=== PATIENT | male | born 1965 | race Caucasian/White ===

== ENCOUNTER 2021-04-09 13:13 | Emergency (ER) | payer OTHER ==
[2021-04-09 14:11] LABS: Absolute Lymphocytes (CBC) 0.4 K/uL (0.7-4.9); Basophils % 0.6 % (0-1.3); Hematocrit 29.8 % (39.6-49.0); Lymphocytes % 8.4 % (15.3-44.8); MPV 6.5 fL (7.6-11.3); RBC Red Blood Cell Count 3.12 M/uL (4.33-5.43)
[2021-04-09 14:18] LABS: Protime INR 1.04
[2021-04-09] MEDS ORDERED: IBUPROFEN 200 MG TAB PO ONE (14:21)
[2021-04-09] MEDS ORDERED: NA CHLORIDE 0.9% 1,000 ML ONE ×2 (14:22→17:09)
[2021-04-09] MEDS ORDERED: IBUPROFEN 400 MG TAB ONE (14:22)
[2021-04-09 14:31] LABS: ALT/SGPT 56 U/L (12-78); AST/SGOT 89 U/L (15-37); Albumin 3.4 g/dL (3.4-5.0); Alkaline Phosphatase 93 U/L (45-117); BUN Blood Urea Nitrogen 26 mg/dL (7-18); Bicarbonate 25 mmol/L (21-32); Bilirubin Direct 0.2 mg/dL (0-0.2); Bilirubin Total 0.4 mg/dL (0.2-1.0); Glucose Level 155 mg/dL (74-106); NT PRO-BNP 108 pg/mL (<125); Protein, Total 7.5 g/dL (6.4-8.2); Sodium Level 134 mmol/L (136-145); Troponin (Emerg Dept Use Only) < 0.02 ng/mL (0.0-0.045)
[2021-04-09 14:33] LABS: Magnesium 1.4 mg/dL (1.8-2.4)
--- NOTE | 2021-04-09 14:47 | RAD REPORT ---
EXAM DESCRIPTION: RAD - Chest Single View - 04/09/2021 2:41 pm CLINICAL HISTORY: CHEST PAIN COMPARISON: No comparisons FINDINGS: Lines: None. Lungs: No evidence of edema or pneumonia. Pleural: No significant pleural effusions or pneumothorax. Cardiac: The heart size is within normal limits. Bones: No acute fractures. Other: IMPRESSION: No acute cardiopulmonary disease.
[2021-04-09] MEDS ORDERED: ONDANSETRON 4 MG/2 ML VIAL ONE (14:54)
[2021-04-09] MEDS ORDERED: FENTANYL CITR 100 MCG/2 ML ONE (15:04)
[2021-04-09 15:26] LABS: SARS-COV-2 RT PCR POSITIVE (NEGATIVE)
[2021-04-09] MEDS ORDERED: Magnesium Sulfate 2gm IVPB 2 G/50 ML BAG IV ONE (15:36)
--- NOTE | 2021-04-09 15:53 | RAD REPORT ---
EXAM DESCRIPTION: CTStone Protocol - 04/09/2021 3:43 pm CLINICAL HISTORY: ABD PAIN COMPARISON: No comparisons TECHNIQUE: CT of the abdomen and pelvis was performed. All CT scans are performed using dose optimization technique as appropriate and may include automated exposure control or mA/KV adjustment according to patient size. FINDINGS: Lower chest: No acute abnormality. Liver: Hepatic steatosis. Biliary: No biliary ductal dilatation. Stomach: No significant focal abnormality. Duodenum: No significant focal abnormality. Pancreas: No significant abnormality. Spleen: No significant abnormality. Adrenal: No suspicious lesions. Kidney/ureter: No hydronephrosis. No renal calculi. Retroperitoneum: No retroperitoneal adenopathy. Vascular: No aneurysm. Bowel: No significant focal abnormality. Appendectomy. Peritoneum: No ascites or free air. Bladder: Grossly unremarkable. Reproductive: No adnexal masses. Bones: No acute fracture. Disc height loss at L5-S1 is mild. Small disc bulges are present at L3-4, L 4-5. Other: n/a IMPRESSION: No acute intra-abdominal or pelvic finding. No urinary tract calculi identified.
--- NOTE | 2021-04-09 17:26 | ER ---
Nurse's Notes [facility] Name: Beny Alvarez Age: 55 yrs Sex: Male : 1965 Arrival Date: 04/09/2021 Time: 13:16 Bed 8 Private MD: Diagnosis: Coronavirus infection, unspecified;Nausea with vomiting, unspecified Presentation: 04/09 13:30 Chief complaint: Patient states: ABD pain, vomiting x 3 weeks, cough x 2 weeks and vg1 diarrhea. States 'feeling dizzy and weak'. Coronavirus screen: Vaccine status: Patient reports being unvaccinated. Client denies travel out of the [place] in the last 14 days. Ebola Screen: Patient negative for fever greater than or equal to 101.5 degrees Fahrenheit, and additional compatible Ebola Virus Disease symptoms. Initial Sepsis Screen: Does the patient meet any 2 criteria? RR > 20 per min. Temp <36.0*C (96.8*F)) or > 38.3*C (100.9*F). Yes. Risk Assessment: Do you want to hurt yourself or someone else? Patient reports no desire to harm self or others. Onset of symptoms was March 19, 2021. 13:30 Method Of Arrival: Wheelchair vg1 13:30 Acuity: KALEY 3 vg1 16:15 Initial Sepsis Screen: Does the patient have a suspected source of infection? Yes: ll1 Productive cough/pneumonia. Triage Assessment: 13:32 General: Appears in no apparent distress. uncomfortable, Behavior is cooperative. Pain: vg1 Complains of pain in generalized body Pain currently is 8 out of 10 on a pain scale. Respiratory: Reports shortness of breath Airway is patent Respiratory effort is even, unlabored, Onset: The symptoms/episode began/occurred x 3 weeks, the patient has moderate shortness of breath. Historical: - Allergies: 13:32 No Known Allergies; vg1 - Home Meds: 13:32 Propranolol Oral [Active]; amlodipine oral [Active]; Methocarbamol Oral [Active]; vg1 losartan oral [Active]; Chlorthalidone Oral [Active]; pantoprazole oral [Active]; Trazodone Oral [Active]; - PMHx: 13:32 Hypertensive disorder; Tremors; Acid Reflux; vg1 - Immunization history:: Client reports having NOT received the Covid vaccine. - Social history:: Smoking status: Patient reports the use of cigarette tobacco products, cigars. Screenin:09 Abuse screen: Denies threats or abuse. Nutritional screening: No deficits noted. ll1 Tuberculosis screening: No symptoms or risk factors identified. 14:10 Fall Risk IV access (20 points). Total Sabillon Fall Scale indicates No Risk (0-24 pts). ll1 Assessment: 14:08 Reassessment: No changes from previously documented assessment. Patient and/or family ll1 updated on plan of care and expected duration. Pain level reassessed. 14:37 Reassessment: No changes from previously documented assessment. Patient and/or family ll1 updated on plan of care and expected duration. Pain level reassessed. Cardiovascular: Rhythm is sinus tachycardia. Respiratory: Airway is patent Trachea midline Respiratory effort is even, labored, Respiratory pattern is symmetrical, tachypnea. 15:30 Reassessment: No changes from previously documented assessment. Patient and/or family ll1 updated on plan of care and expected duration. Pain level reassessed. Respiratory: Breath sounds are diminished bilaterally. 16:30 Reassessment: No changes from previously documented assessment. Patient and/or family ll1 updated on plan of care and expected duration. Pain level reassessed. 17:30 Reassessment: No changes from previously documented assessment. Patient and/or family ll1 updated on plan of care and expected duration. Pain level reassessed. Patient states feeling better. 18:30 Reassessment: No changes from previously documented assessment. Patient and/or family ll1 updated on plan of care and expected duration. Pain level reassessed. Patient is alert, oriented x 3, equal unlabored respirations, skin warm/dry/pink. Patient states feeling better. no further N/V after PO challenge. Vital Signs: 13:30 BP 115 / 74; Pulse 120; Resp 26; Temp 101.1(O); Pulse Ox 97% ; Weight 90.72 kg; Height vg1 5 ft. 10 in. (177.80 cm); Pain 8/10; 14:09 BP 125 / 67; Pulse 118; Resp 24; Pulse Ox 98% on R/A; ll1 14:28 BP 108 / 71 Supine; Pulse 104; ll1 14:30 BP 121 / 76 Sitting; Pulse 128; ll1 14:32 Pulse 134; ll1 14:36 Pulse 117; Resp 25; Pulse Ox 97% on R/A; ll1 15:14 BP 107 / 69; Pulse 101; Resp 18; Pulse Ox 98% on R/A; ll1 15:28 Pulse 99; Resp 18; Temp 99.9; ll1 17:16 BP 103 / 70; Pulse 78; Resp 18; Pulse Ox 99% on R/A; ll1 18:03 BP 114 / 64; Pulse 76; Resp 18; Pulse Ox 99% ; ll1 18:35 BP 117 / 72; Pulse 80; Resp 18; Pulse Ox 100% ; ll1 13:30 Body Mass Index 28.70 (90.72 kg, 177.80 cm) vg1 14:32 Shaking a lot and very dizzy during standing orthostatic VS. Unable to obtain BP due to ll1 shaking/movement. ED Course: 13:16 Patient arrived in ED. am2 13:28 Atul De La Cruz RN is Primary Nurse. ll1 13:28 Arm band placed on Patient placed in an exam room, on a stretcher. ll1 13:32 Triage completed. vg1 13:40 Lissa Martins FNP-C is PHCP. kb 13:40 Carlos Alcantara MD is Attending Physician. kb 14:08 Inserted saline lock: 22 gauge in right antecubital area, using aseptic technique. ll1 Blood collected. 14:09 Patient has correct armband on for positive identification. Bed in low position. Call ll1 light in reach. Side rails up X2. 14:41 XRAY Chest (1 view) In Process Unspecified. EDMS 15:43 CT Stone Protocol In Process Unspecified. EDMS 18:36 No provider procedures requiring assistance completed. ll1 18:37 IV discontinued, intact, bleeding controlled, No redness/swelling at site. Pressure ll1 dressing applied. Administered Medications: 14:27 Drug: Ibuprofen 600 mg Route: PO; ll1 14:58 Follow up: Response: No adverse reaction ll1 14:36 Drug: NS 0.9% 1000 ml Route: IV; Rate: 1000 ml; Site: right antecubital; ll1 16:14 Follow up: Response: No adverse reaction; IV Status: Completed infusion; IV Intake: ll1 1000ml 14:57 Drug: Zofran (Ondansetron) 4 mg Route: IVP; Site: right antecubital; ll1 16:14 Follow up: Response: No adverse reaction ll1 15:05 Drug: fentaNYL (PF) 25 mcg {Note: rass 0.} Route: IVP; Site: right antecubital; ll1 16:14 Follow up: Response: No adverse reaction; RASS: Alert and Calm (0) ll1 16:07 Drug: Magnesium Sulfate 2 grams Route: IVPB; Infused Over: 2 hrs; Site: right ll1 antecubital; 17:15 Follow up: Response: No adverse reaction; IV Status: Completed infusion; IV Intake: ll1 100ml 16:31 Drug: fentaNYL (PF) 25 mcg {Note: rass 0.} Route: IVP; Site: right antecubital; ll1 17:15 Follow up: Response: No adverse reaction ll1 17:14 Drug: NS 0.9% 1000 ml Route: IV; Rate: 1000 ml; Site: right antecubital; ll1 18:36 Follow up: Response: No adverse reaction; IV Status: Completed infusion; IV Intake: ll1 1000ml 18:02 Drug: fentaNYL (PF) 25 mcg {Note: rass 0.} Route: IVP; Site: right antecubital; ll1 18:36 Follow up: Response: No adverse reaction; Pain is decreased; RASS: Alert and Calm (0) ll1 Intake: 16:14 IV: 1000ml; Total: 1000ml. ll1 17:15 IV: 100ml; Total: 1100ml. ll1 18:36 IV: 1000ml; Total: 2100ml. 1 Outcome: 17:25 Discharge ordered by . kb 18:37 Discharged to home via wheelchair. 1 18:37 Condition: stable 18:37 Discharge instructions given to patient, Instructed on discharge instructions, follow up and referral plans. no drinking with medication, no driving heavy equipment, medication usage, Demonstrated understanding of instructions, follow-up care, medications, Prescriptions given X 3. 18:45 Patient left the ED. 1 Signatures: Dispatcher [employer] EDLissa Mcmanus, HEATH KINGP-Emi Don Victoria, RN RN vg1 Atul De La Cruz RN RN ll1
--- NOTE | 2021-04-09 17:26 | EDPHYS ---
Physician Documentation [facility] Name: Beny Alvarez Age: 55 yrs Sex: Male : 1965 Arrival Date: 04/09/2021 Time: 13:16 Bed 8 Private MD: ED Physician Carlos Alcantara HPI: 04/09 16:28 This 55 yrs old Male presents to ER via Wheelchair with complaints of Shortness Of kb Breath, Vomiting, Decreased Appetite. 16:28 The patient or guardian reports cough, that is intermittent, described as mild, kb difficulty breathing, flu symptoms, low-grade fever, myalgias, no appetite. Onset: The symptoms/episode began/occurred 2 week(s) ago. Severity of symptoms: At their worst the symptoms were moderate, in the emergency department the symptoms are unchanged. Modifying factors: The symptoms are alleviated by nothing, the symptoms are aggravated by nothing. Associated signs and symptoms: Pertinent positives: chest pain, nausea, vomiting. The patient has not experienced similar symptoms in the past. The patient has not recently seen a physician. Pt reports nausea and vomiting for 3 weeks, cough, shortness of breath, chest tightness for 2 weeks. Went to [place] and was told to come here for evaluation. Historical: - Allergies: 13:32 No Known Allergies; vg1 - Home Meds: 13:32 Propranolol Oral [Active]; amlodipine oral [Active]; Methocarbamol Oral [Active]; vg1 losartan oral [Active]; Chlorthalidone Oral [Active]; pantoprazole oral [Active]; Trazodone Oral [Active]; - PMHx: 13:32 Hypertensive disorder; Tremors; Acid Reflux; vg1 - Immunization history:: Client reports having NOT received the Covid vaccine. - Social history:: Smoking status: Patient reports the use of cigarette tobacco products, cigars. ROS: 16:26 Constitutional: Negative for fever, chills, and weight loss. kb 16:26 Respiratory: Positive for cough, shortness of breath. 16:26 Abdomen/GI: Positive for abdominal pain, nausea and vomiting, Negative for diarrhea, constipation. 16:26 All other systems are negative. Exam: 16:27 Constitutional: This is a well developed, well nourished patient who is awake, alert, kb and in no acute distress. Head/Face: Normocephalic, atraumatic. ENT: Moist Mucous membranes Cardiovascular: Regular rate and rhythm with a normal S1 and S2. No gallops, murmurs, or rubs. No pulse deficits. Respiratory: Respirations even and unlabored. No increased work of breathing. Talking in full sentences Skin: Warm, dry with normal turgor. Normal color. MS/ Extremity: Pulses equal, no cyanosis. Neurovascular intact. Full, normal range of motion. Neuro: Awake and alert, GCS 15, oriented to person, place, time, and situation. Moves all extremities. Normal gait. Psych: Awake, alert, with orientation to person, place and time. Behavior, mood, and affect are within normal limits. 16:27 Abdomen/GI: Inspection: abdomen appears normal, Bowel sounds: normal, in all quadrants, Palpation: soft, in all quadrants, moderate abdominal tenderness, in all quadrants. Vital Signs: 13:30 BP 115 / 74; Pulse 120; Resp 26; Temp 101.1(O); Pulse Ox 97% ; Weight 90.72 kg; Height vg1 5 ft. 10 in. (177.80 cm); Pain 8/10; 14:09 BP 125 / 67; Pulse 118; Resp 24; Pulse Ox 98% on R/A; ll1 14:28 BP 108 / 71 Supine; Pulse 104; ll1 14:30 BP 121 / 76 Sitting; Pulse 128; ll1 14:32 Pulse 134; ll1 14:36 Pulse 117; Resp 25; Pulse Ox 97% on R/A; ll1 15:14 BP 107 / 69; Pulse 101; Resp 18; Pulse Ox 98% on R/A; ll1 15:28 Pulse 99; Resp 18; Temp 99.9; ll1 17:16 BP 103 / 70; Pulse 78; Resp 18; Pulse Ox 99% on R/A; ll1 18:03 BP 114 / 64; Pulse 76; Resp 18; Pulse Ox 99% ; ll1 18:35 BP 117 / 72; Pulse 80; Resp 18; Pulse Ox 100% ; ll1 13:30 Body Mass Index 28.70 (90.72 kg, 177.80 cm) vg1 14:32 Shaking a lot and very dizzy during standing orthostatic VS. Unable to obtain BP due to ll1 shaking/movement. MDM: 13:41 Patient medically screened. kb 16:25 Data reviewed: vital signs, nurses notes. Data interpreted: Pulse oximetry: on room air kb is 98 %. Interpretation: normal. Counseling: I had a detailed discussion with the patient and/or guardian regarding: the historical points, exam findings, and any diagnostic results supporting the discharge/admit diagnosis, lab results, radiology results, the need for outpatient follow up, a family practitioner, to return to the emergency department if symptoms worsen or persist or if there are any questions or concerns that arise at home. 04/09 13:47 Order name: Basic Metabolic Panel; Complete Time: 14:39 ll1 04/09 13:47 Order name: CBC with Diff; Complete Time: 14:19 ll1 04/09 13:47 Order name: LFT's; Complete Time: 14:39 ll1 04/09 13:47 Order name: Magnesium; Complete Time: 14:39 ll1 04/09 13:47 Order name: NT PRO-BNP; Complete Time: 14:39 ll1 04/09 13:47 Order name: PT-INR; Complete Time: 14:19 ll1 04/09 13:47 Order name: Troponin (emerg Dept Use Only); Complete Time: 14:39 ll1 04/09 13:47 Order name: XRAY Chest (1 view); Complete Time: 15:06 ll1 04/09 13:47 Order name: COVID-19/FLU A+B (Document "Date of Onset" if Symptomatic); Complete Time: ll1 15:29 04/09 15:07 Order name: CT Stone Protocol; Complete Time: 15:58 kb 04/09 13:47 Order name: EKG; Complete Time: 13:48 ll1 04/09 13:47 Order name: Cardiac monitoring; Complete Time: 14:08 ll1 04/09 13:47 Order name: EKG - Nurse/Tech; Complete Time: 14:08 ll1 04/09 13:47 Order name: IV Saline Lock; Complete Time: 13:55 ll1 04/09 13:47 Order name: Labs collected and sent; Complete Time: 13:55 ll1 04/09 13:47 Order name: O2 Per Protocol; Complete Time: 13:55 ll1 04/09 13:47 Order name: O2 Sat Monitoring; Complete Time: 13:55 ll1 04/09 14:20 Order name: Orthostatics; Complete Time: 14:36 kb 04/09 16:31 Order name: PO challenge; Complete Time: 17:08 kb Administered Medications: 14:27 Drug: Ibuprofen 600 mg Route: PO; ll1 14:58 Follow up: Response: No adverse reaction ll1 14:36 Drug: NS 0.9% 1000 ml Route: IV; Rate: 1000 ml; Site: right antecubital; ll1 16:14 Follow up: Response: No adverse reaction; IV Status: Completed infusion; IV Intake: ll1 1000ml 14:57 Drug: Zofran (Ondansetron) 4 mg Route: IVP; Site: right antecubital; ll1 16:14 Follow up: Response: No adverse reaction ll1 15:05 Drug: fentaNYL (PF) 25 mcg {Note: rass 0.} Route: IVP; Site: right antecubital; ll1 16:14 Follow up: Response: No adverse reaction; RASS: Alert and Calm (0) ll1 16:07 Drug: Magnesium Sulfate 2 grams Route: IVPB; Infused Over: 2 hrs; Site: right ll1 antecubital; 17:15 Follow up: Response: No adverse reaction; IV Status: Completed infusion; IV Intake: ll1 100ml 16:31 Drug: fentaNYL (PF) 25 mcg {Note: rass 0.} Route: IVP; Site: right antecubital; ll1 17:15 Follow up: Response: No adverse reaction ll1 17:14 Drug: NS 0.9% 1000 ml Route: IV; Rate: 1000 ml; Site: right antecubital; ll1 18:36 Follow up: Response: No adverse reaction; IV Status: Completed infusion; IV Intake: ll1 1000ml 18:02 Drug: fentaNYL (PF) 25 mcg {Note: rass 0.} Route: IVP; Site: right antecubital; ll1 18:36 Follow up: Response: No adverse reaction; Pain is decreased; RASS: Alert and Calm (0) ll1 Disposition: 19:53 Co-signature as Attending Physician, Carlos Alcantara MD I agree with the assessment and kdr plan of care. Disposition Summary: 04/09/21 17:25 Discharge Ordered Location: Home kb Condition: Stable kb Diagnosis - Coronavirus infection, unspecified kb - Nausea with vomiting, unspecified kb Followup: kb - With: Emergency Department - When: As needed - Reason: Worsening of condition Followup: kb - With: Private Physician - When: 2 - 3 days - Reason: Recheck today's complaints, Continuance of care, Re-evaluation by your physician Discharge Instructions: - Discharge Summary Sheet kb - COVID-19 kb Forms: - Medication Reconciliation Form kb - Thank You Letter kb - Antibiotic Education kb - Prescription Opioid Use kb Prescriptions: - Zofran 4 mg Oral Tablet - take 1 tablet by ORAL route every 6 hours As needed; 20 tablet; Refills: 0, kb Product Selection Permitted - Tessalon Perles 100 mg Oral Capsule - take 1 capsule by ORAL route every 8 hours As needed; 15 capsule; Refills: 0, kb Product Selection Permitted - Cyclobenzaprine 10 mg Oral Tablet - take 1 tablet by ORAL route every 8 hours As needed; 21 tablet; Refills: 0, kb Product Selection Permitted Signatures: Dispatcher [employer] Lissa Long, YVETTE-C YVETTE-Carlos Pizarro MD MD kdr Garcia, Victoria RN RN vg1 Atul De La Cruz RN RN ll1
[2021-04-09 19:01] VITALS: TEMP 99.9
[2021-04-09 19:06] VITALS: BP 117/72; O2SAT 100
--- NOTE | 2021-04-11 17:02 | EKG ---
Test Date: 2021-04-09 Test Time: 13:55:12 Arch Support Maker: MK MEASUREMENT RESULTS: Intervals: Rate: 124 [place]: 162 QRSD: 88 QT: 280 QTc: 402 [place]: P: 39 [place]: 162 QRS: -79 T: 55 INTERPRETIVE STATEMENTS: Sinus tachycardia Left axis deviation Anterior infarct, age undetermined Abnormal ECG No previous ECG available for comparison Electronically Signed On 04-11-21 17:00:14 CLAIMS ASSISTANT by Pipe Calloway
== END 2021-04-09 18:45 | disposition home or self-care (01) ==
LOC: ER 13:13
DX: U07.1 COVID-19 (principal); R11.2 Nausea with vomiting, unspecified; I10 Essential (primary) hypertension; Z72.0 Tobacco use
CPT/HCPCS: 96365; 96361; 93005; 85025; 80048; 36415; 83735; 85610; 80076; 84484; 83880; 0240U; 76377; 74176; 71045; 96375; 99284; J3010; J3475; J7030 ×2; J2405

== ENCOUNTER 2022-02-20 12:50 | Emergency (ER) | payer OTHER ==
[2022-02-20] MEDS ORDERED: MORPHINE 4 MG/ML SYR ONE (13:30)
[2022-02-20] MEDS ORDERED: PANTOPRAZOLE 40 MG INJ ONE (13:30)
[2022-02-20] MEDS ORDERED: NA CHLORIDE 0.9% 1,000 ML ONE ×3 (13:30→17:41)
[2022-02-20] MEDS ORDERED: ONDANSETRON 4 MG/2 ML VIAL ONE ×2 (13:30→19:11)
[2022-02-20 13:38] LABS: Absolute Lymphocytes (CBC) 0.3 K/uL (0.7-4.9); Hematocrit 39.6 % (39.6-49.0); Lymphocytes % 2.1 % (15.3-44.8); MCV 94.5 fL (80-100); MPV 7.4 fL (7.6-11.3); RBC Red Blood Cell Count 4.19 M/uL (4.33-5.43)
[2022-02-20] MEDS ORDERED: HYDROMORPHONE HCL 1 MG/ML INJ ONE ×2 (13:55→19:56)
--- NOTE | 2022-02-20 13:56 | RAD REPORT ---
EXAM DESCRIPTION: RAD - Chest Single View - 02/20/2022 1:38 pm CLINICAL HISTORY: vomiting, fever, hypertension COMPARISON: CT imaging March 2021, portable chest March 2021 TECHNIQUE: AP portable chest image was obtained 02/20/2022 1:38 pm . FINDINGS: Lungs are clear. Right hemidiaphragm elevation is noted limiting posterior gutter right-si de assessment. No failure or volume overload findings. Heart and vasculature are normal. No measurable pleural effusion and no pneumothorax. No acute bony a bnormality seen. No acute aortic findings suspected. IMPRESSION: No acute cardiopulmonary process.
[2022-02-20 14:33] LABS: Protime INR 1.22
[2022-02-20 14:47] LABS: Blood Morphology Comment NOT SEEN (NOT SEEN); Platelet Estimate ADEQ; White Blood Cell Scan OK (OK)
[2022-02-20 14:56] LABS: Albumin 3.6 g/dL (3.4-5.0); Bilirubin Direct 0.6 mg/dL (0-0.2); Bilirubin Total 1.1 mg/dL (0.2-1.0); Magnesium 1.9 mg/dL (1.8-2.4)
[2022-02-20 15:04] LABS: Potassium 2.8 mmol/L (3.5-5.1)
--- NOTE | 2022-02-20 15:14 | RAD REPORT ---
EXAM DESCRIPTION: CT - Stone Protocol - 02/20/2022 2:48 pm CLINICAL HISTORY: hematuria COMPARISON: Stone Protocol dated 04/09/2021 TECHNIQUE: Axial 3 mm thick images were obtained without oral or IV contrast. The [id number] span s the entirety of the system including uppermost abdomen and lung bases. All CT scans are performed using dose optimization technique as appropriate and may include automated exposure control or mA/KV adjustment according to patient size. FINDINGS: No hydronephrosis is present and no obstructing ureteral calculi. No suspicious renal mass es. Isodense masses and pyelonephritis are not excluded on a stone protocol CT scan. No obstructing o r nonobstructing calculi. No significant adrenal finding. Urinary bladder is mostly contracted limiti ng assessment. Bladder calculi not seen. Hepatomegaly is present with diffuse fatty infiltration of liver. Small prominent varices are seen in the upper abdomen. No suspicious liver parenchymal lesions seen on noncontrast imaging if no pancrea tic or peripancreatic abnormality. No splenic abnormality seen. Cholecystectomy clips are present. No biliary tree dilatation. No suspicious bowel findings. Appendectomy clips are present. No hernia, mass or bulky lymphadenopathy noted. No free air, free fluid or inflammatory stranding. No significant bony abnormality. IMPRESSION: No hydronephrosis, obstructing calculi or acute finding. Isodense masses and pyelonephritis are not excluded on stone protocol technique. No abnormality seen in the contracted urinary bladder. Bladder evaluation is limited. Hepatomegaly and diffuse fatty infiltration. Varices are present. Cirrhosis or diffuse hepatic parenc hymal disease or possible. Cholecystectomy changes since prior examination. No biliary tree abnormality.
[2022-02-20 15:22] LABS: Urine Blood 3+ (Negative); Urine Glucose Negative (Negative); Urine Protein 3+ (Negative); Urine Specific Gravity 1.025 (1.005-1.030)
[2022-02-20 15:52] LABS: Urine Granular Casts >20 /LPF (None Seen); Urine Mucus 1+ /HPF (None Seen); Urine RBC >50 /HPF (None Seen); Urine WBC Clump Moderate /HPF (None Seen)
[2022-02-20] MEDS ORDERED: LORazepam 2 MG/ML VIAL ONE (15:52)
[2022-02-20] MEDS ORDERED: PIPERACIL/TAZO 2.25 GM VIAL IV ONE (15:52)
[2022-02-20] MEDS ORDERED: IBUPROFEN 400 MG TAB ONE (15:53)
[2022-02-20] MEDS ORDERED: KCL 20 MEQ/100 mL IVPB 100 ML IV ONE (15:53)
[2022-02-20] MEDS ORDERED: NA CHLORIDE 0.9% 100 ML IV ONE (15:53)
--- NOTE | 2022-02-20 16:06 | EDPHYS ---
Physician Documentation [facility] Name: Beny Alvarez Age: 56 yrs Sex: Male : 1965 Arrival Date: 02/20/2022 Time: 13:01 Bed 19 Private MD: ED Physician Carlos Alcantara HPI: 02/20 13:20 This 56 yrs old Male presents to ER via Wheelchair with complaints of Fever, Vomiting, cp General Weakness. 13:20 The patient presents with urinary symptoms, urinary frequency, gross hematuria, lower cp abdominal pain. 13:20 Associated signs and symptoms: Pertinent positives: abdominal pain, dysuria, fever, cp hematuria, nausea, vomiting, Pertinent negatives: constipation, diarrhea. Severity of symptoms: in the emergency department the symptoms are unchanged, despite home interventions. Patient reports daily alcohol use with last drink 4 days ago. Nausea and vomiting times 1 year. Historical: - Allergies: 13:17 No Known Allergies; hb - Home Meds: 16:36 amlodipine 10 mg oral tab [Active]; duloxetine 30 mg oral CDRS [Active]; meloxicam 15 jl7 mg oral tab [Active]; famotidine 40 mg Oral tab [Active]; potassium chloride 10 mEq Oral TbER [Active]; rosuvastatin 40 mg oral cpSP [Active]; cholecalciferol (vitamin D3) 50 mcg (2,000 unit) oral cap [Active]; methocarbamol 750 mg oral tab [Active]; chlorthalidone 25 mg oral tab [Active]; trazodone 50 mg oral tab [Active]; propranolol 20 mg oral tab [Active]; - PMHx: 13:17 acid reflux; Hypertensive disorder; tremors; hb - Immunization history:: Adult Immunizations up to date. - Social history:: Smoking status: Patient/guardian denies using tobacco. ROS: 13:25 Constitutional: Positive for fever, poor PO intake. cp 13:25 Eyes: Negative for injury, pain, redness, and discharge. cp 13:25 ENT: Negative for drainage from ear(s), ear pain, sore throat, difficulty swallowing, difficulty handling secretions. 13:25 Cardiovascular: Positive for chest pain. 13:25 Respiratory: Negative for cough, shortness of breath, wheezing. 13:25 Abdomen/GI: Positive for abdominal pain, nausea and vomiting, Negative for diarrhea, constipation, hematemesis, black/tarry stool, rectal bleeding. 13:25 : Positive for urinary frequency, hematuria, burning with urination. 13:25 Skin: Negative for cellulitis, rash. 13:25 Neuro: Positive for weakness, Negative for altered mental status, dizziness, headache, syncope. 13:25 All other systems are negative. Exam: 13:30 Constitutional: The patient appears in no acute distress, alert, awake, cp non-diaphoretic, well developed, well nourished, obviously ill, uncomfortable. 13:30 Head/Face: Normocephalic, atraumatic. cp 13:30 Eyes: Periorbital structures: appear normal, Conjunctiva: normal, no exudate, no injection, Sclera: no appreciated abnormality, Lids and lashes: appear normal, bilaterally. 13:30 ENT: External ear(s): are unremarkable, Nose: is normal, Mouth: Lips: moist, Oral mucosa: moist, Posterior pharynx: Airway: no evidence of obstruction, patent, Tonsils: are normal in appearance, swelling, is not appreciated, erythema, is not appreciated, exudate, is not appreciated. 13:30 Neck: ROM/movement: is normal, is supple, without pain, no range of motions limitations, no meningismus. 13:30 Chest/axilla: Inspection: normal, Palpation: is normal, no crepitus, no tenderness. 13:30 Cardiovascular: Rate: tachycardic, Rhythm: regular, Edema: is not appreciated, JVD: is not appreciated. 13:30 Respiratory: the patient does not display signs of respiratory distress, Respirations: normal, no use of accessory muscles, no retractions, labored breathing, is not present, Breath sounds: are clear throughout, no decreased breath sounds, no stridor, no wheezing. 13:30 Abdomen/GI: Inspection: obese Bowel sounds: active, all quadrants, Palpation: soft, in all quadrants, mild abdominal tenderness, in the right lower quadrant and left lower quadrant, rebound tenderness, is not appreciated, involuntary guarding, is not appreciated. 13:30 Back: CVA tenderness, is absent. 13:30 Skin: cellulitis, is not appreciated, no rash present. 13:30 Neuro: Orientation: to person, place \\T\\ time. Mentation: is normal, Cerebellar function: is grossly normal, Motor: moves all fours, strength is normal, Sensation: is normal. 13:57 ECG was reviewed by the Attending Physician. cp Vital Signs: 13:14 BP 138 / 77; Pulse 122; Resp 24; Temp 103.2(O); Pulse Ox 97% on R/A; Weight 80.29 kg; hb Height 5 ft. 10 in. (177.80 cm); Pain 9/10; 14:00 BP 129 / 70; Pulse 127; Resp 30; Pulse Ox 94% ; jl7 14:30 BP 126 / 68; Pulse 132; Resp 32; Pulse Ox 94% ; jl7 15:30 BP 128 / 83; Pulse 132; Resp 29; Pulse Ox 95% ; jl7 16:00 BP 107 / 83; Pulse 127; Resp 25; Pulse Ox 91% ; jl7 16:24 BP 112 / 71; Pulse 123; Resp 25 S; Pulse Ox 92% on R/A; jl7 16:24 Pain 4/10; jl7 16:59 Temp 101.4; kr3 17:00 BP 121 / 78; Pulse 118; Resp 15; Temp 101.4; Pulse Ox 98% ; kr3 17:30 BP 116 / 67; Pulse 115; Resp 16; Pulse Ox 94% on R/A; kr3 20:13 BP 109 / 79; Pulse 100; Resp 23; Temp 98.3(O); Pulse Ox 94% on R/A; ke1 13:14 Body Mass Index 25.40 (80.29 kg, 177.80 cm) hb MDM: 13:19 Patient medically screened. cp 14:00 Differential diagnosis: urinary retention, prostatitis, sepsis, kidney stone. cp 15:30 Data reviewed: vital signs, nurses notes, lab test result(s), EKG, radiologic studies, cp CT scan, plain films. 15:30 Test interpretation: by ED physician or midlevel provider: ECG, plain radiologic cp studies. 15:45 ED course: Patient meets criteria for septic shock: A) source of infection: urine, B) cp SIRS criteria: temp of 103.2, HR of 122, RR of 24, WBC of 14.4, C) organ dysfunction: CRE of 2.23, lactate >4. Will administer Zosyn antibiotic. 02/20 13:18 Order name: Influenza Screen (a \\T\\ B); Complete Time: 14:20 cp 02/20 14:20 Interpretation: Reviewed. cp 02/20 13:18 Order name: COVID-19 SARS RT PCR (Document "Date of Onset" if Symptomatic); Complete cp Time: 14:32 02/20 14:32 Interpretation: Reviewed. cp 02/20 13:18 Order name: Basic Metabolic Panel; Complete Time: 15:04 cp 02/20 15:05 Interpretation: Normal except: NA 132; K 2.8; CL 93; GLUC 125; CRE 2.23; GFR 34. cp 02/20 13:18 Order name: CBC with Diff; Complete Time: 14:51 cp 02/20 14:20 Interpretation: Normal except: WBC 14.40; RBC 4.19; MPV 7.4; CHERRIE% 93.2; LYM% 2.1; NEUT cp A 13.4; LYMA 0.3. 02/20 13:18 Order name: LFT's; Complete Time: 15:04 cp 02/20 15:05 Interpretation: Normal except: AST 206; ALT 82; ALK 206; BILIT 1.1; BILID 0.6; GLOB cp 4.4; A/G 0.8. 02/20 13:18 Order name: Magnesium; Complete Time: 15:04 cp 02/20 13:18 Order name: NT PRO-BNP; Complete Time: 15:04 cp 02/20 15:05 Interpretation: Abnormal: NT PRO-BNP 183. cp 02/20 13:18 Order name: PT-INR; Complete Time: 14:51 cp 02/20 14:52 Interpretation: Abnormal: PT 13.4. cp 02/20 13:18 Order name: Lactate; Complete Time: 14:08 cp 02/20 14:32 Interpretation: Abnormal: LAC 4.3. cp 02/20 13:18 Order name: Procalcitonin; Complete Time: 15:11 cp 02/20 15:12 Interpretation: Reviewed. cp 02/20 13:18 Order name: Blood Culture Adult (2) cp 02/20 13:25 Order name: Troponin High Sensitivity; Complete Time: 15:01 cp 02/20 13:25 Order name: Urine Microscopic Only; Complete Time: 17:17 cp 02/20 17:18 Interpretation: Normal except: UWBC >50; URBC >50; BYST Few; UWBC Clump Moderate; GCAST cp >20; DAVIDE Cx 1+. 02/20 14:00 Order name: CBC Smear Scan; Complete Time: 14:51 EDMS 02/20 13:18 Order name: XRAY Chest (1 view); Complete Time: 14:08 cp 02/20 14:21 Order name: Strep; Complete Time: 17:17 cp 02/20 14:21 Order name: CT Stone Protocol; Complete Time: 15:19 cp 02/20 15:23 Order name: Urine Dipstick-Ancillary; Complete Time: 15:23 EDMS 02/20 15:23 Interpretation: Normal except: UKET Trace; UBLD 3+; UPROT 3+; UNIT Positive; UESTR 1+. cp 02/20 15:43 Order name: US Rp Exam Complete; Complete Time: 17:17 cp 02/20 15:54 Order name: Urine Culture EDME 02/20 16:31 Order name: Throat Culture EDME 02/20 17:32 Order name: Lactate Sepsis 2 HR Follow-up; Complete Time: 17:37 EDME 02/20 13:18 Order name: EKG; Complete Time: 13:20 cp 02/20 13:18 Order name: Cardiac monitoring; Complete Time: 13:52 cp 02/20 13:18 Order name: EKG - Nurse/Tech; Complete Time: 14:04 cp 02/20 13:18 Order name: IV Saline Lock; Complete Time: 13:52 cp 02/20 13:18 Order name: Labs collected and sent; Complete Time: 13:52 cp 02/20 13:18 Order name: O2 Per Protocol; Complete Time: 13:24 cp 02/20 13:18 Order name: O2 Sat Monitoring; Complete Time: 13:24 cp 02/20 13:25 Order name: Urine Dipstick-Ancillary (obtain specimen); Complete Time: 15:55 cp 02/20 13:43 Order name: Labs - recollect needed: recollect blue and green top; Complete Time: 14:00 eb 02/20 15:21 Order name: Cath; Complete Time: 15:55 cp EC:57 Rate is 122 beats/min. Rhythm is regular. VT interval is normal. QRS interval is cp normal. QT interval is normal. Interpreted by me. Reviewed by me. Administered Medications: 14:08 Discontinued: NS 0.9% 1000 ml IV at 1000 ml once cp 13:30 Drug: NS 0.9% 1000 ml Route: IV; Rate: 1000 ml; Site: right antecubital; kr3 13:30 Drug: Zofran (Ondansetron) 4 mg Route: IVP; Site: right antecubital; kr3 13:30 Drug: ProTONIX (pantoprazole) 40 mg Route: IVP; Site: right antecubital; kr3 16:26 Follow up: Response: No adverse reaction jl7 13:30 Drug: morphine 4 mg Route: IVP; Infused Over: 4 mins; Site: right antecubital; kr3 14:00 Drug: Dilaudid (HYDROmorphone) 1 mg Route: IVP; Site: right antecubital; kr3 14:30 Follow up: Response: No adverse reaction; Pain is decreased jl7 14:22 Drug: NS 0.9% (30 ml/kg) 30 ml/kg Route: IV; Rate: bolus; Site: right antecubital; kr3 15:06 Drug: NS 0.9% (30 ml/kg) 30 ml/kg Route: IV; Rate: bolus; Site: right antecubital; kr3 15:22 CANCELLED (Physician Discretion): Rocephin (cefTRIAXone) 1 grams IV at calculated rate cp once; Given slow IV push per pharmacy instructions 15:49 CANCELLED (Physician Discretion): Rocephin (cefTRIAXone) 1 grams IV at calculated rate jl7 once; Given slow IV push per pharmacy instructions 16:00 Drug: Ibuprofen 800 mg Route: PO; jl7 16:59 Follow up: Temp 101.4; Response: Temperature is decreased kr3 16:15 Drug: Potassium Chloride 20 mEq Route: IV; Rate: calculated rate; Site: right jl7 antecubital; 16:20 Drug: Zosyn (piperacillin-tazobactam) 2.25 grams Route: IVPB; Infused Over: 60 mins; jl7 Site: right antecubital; 16:23 Drug: Ativan (LORazepam) 1 mg Route: IVP; Site: right antecubital; jl7 19:53 Drug: Zofran (Ondansetron) 4 mg Route: IVP; Site: right antecubital; kr3 20:04 Drug: Dilaudid (HYDROmorphone) 1 mg Route: IVP; Site: right antecubital; kr3 Disposition: 02/21 10:17 Co-signature as Attending Physician, Carlos Alcantara MD I agree with the assessment and kdr plan of care. Disposition Summary: 02/20/22 16:05 Transfer Ordered Transfer Location: Other Acute Care Facility cp Reason: Higher level of care cp Condition: Stable cp Problem: new cp Symptoms: have improved cp Accepting Physician: Doctor(02/20/22 22:13) keBalbir Diagnosis - Severe sepsis with septic shock cp Forms: - Medication Reconciliation Form cp - SBAR form cp Signatures: Dispatcher [employer] EDMS Carlos Alcantara MD MD kdr Bill Pereira, BOOK SHELVER-C BOOK SHELVER-Cla1 Dewayne Louis PA PA cp Katelyn Morales, RN RN April Merino RN RN jl7 Alexa Terrell Raymond, MD MD rn3 Milo Wolf RN RN ke1 Karma Pichardo RN RN kr3 Corrections: (The following items were deleted from the chart) 02/20 15:22 15:22 Rocephin (cefTRIAXone) 1 grams IV at calculated rate once; Given slow IV push per pharmacy instructions ordered. cp 15:49 15:23 Rocephin (cefTRIAXone) 1 grams IV at calculated rate once; Given slow IV push per jl7 pharmacy instructions ordered. cp 15:49 15:48 Rocephin (cefTRIAXone) 1 grams IV at calculated rate once; Given slow IV push per jl7 pharmacy instructions ordered. 7 22:13 16:05 Doctor cp ke1
--- NOTE | 2022-02-20 16:06 | ER ---
Nurse's Notes [facility] Name: Beny Alvarez Age: 56 yrs Sex: Male : 1965 Arrival Date: 02/20/2022 Time: 13:01 Bed 19 Private MD: Diagnosis: Severe sepsis with septic shock Presentation: 02/20 13:14 Chief complaint: N/V, sore throat, fever, and body aches x 3 days, blood in urine since hb yesterday. Not tolerating fluids. Coronavirus screen: Client presents with at least one sign or symptom that may indicate coronavirus-19. Standard/surgical mask placed on the client. Provider contacted for isolation considerations. Ebola Screen: No symptoms or risks identified at this time. Risk Assessment: Do you want to hurt yourself or someone else? Patient reports no desire to harm self or others. Onset of symptoms was February 17, 2022. 13:14 Method Of Arrival: Wheelchair hb 13:14 Acuity: KALEY 2 hb 13:14 Initial Sepsis Screen: Does the patient meet any 2 criteria? RR > 20 per min. Temp hb <36.0*C (96.8*F)) or > 38.3*C (100.9*F). HR > 90 bpm. Yes Does the patient have a suspected source of infection? Yes: Other: vomiting. Triage Assessment: 15:30 GI: Reports intolerance of fluids, nausea, vomiting. kr3 Historical: - Allergies: 13:17 No Known Allergies; hb - Home Meds: 16:36 amlodipine 10 mg oral tab [Active]; duloxetine 30 mg oral CDRS [Active]; meloxicam 15 jl7 mg oral tab [Active]; famotidine 40 mg Oral tab [Active]; potassium chloride 10 mEq Oral TbER [Active]; rosuvastatin 40 mg oral cpSP [Active]; cholecalciferol (vitamin D3) 50 mcg (2,000 unit) oral cap [Active]; methocarbamol 750 mg oral tab [Active]; chlorthalidone 25 mg oral tab [Active]; trazodone 50 mg oral tab [Active]; propranolol 20 mg oral tab [Active]; - PMHx: 13:17 acid reflux; Hypertensive disorder; tremors; hb - Immunization history:: Adult Immunizations up to date. - Social history:: Smoking status: Patient/guardian denies using tobacco. Screenin:24 Abuse screen: Denies threats or abuse. Denies injuries from another. Nutritional jl7 screening: No deficits noted. Tuberculosis screening: No symptoms or risk factors identified. Fall Risk IV access (20 points). Total Sabillon Fall Scale indicates No Risk (0-24 pts). Assessment: 13:14 Reassessment: CODE SEPSIS CALLED. hb 13:19 General: Appears distressed, uncomfortable, Behavior is anxious. Pain: Complains of kr3 pain in back, right leg, lateral aspect of left knee, posterior aspect of left knee, medial aspect of left knee and left knee Pain currently is 9 out of 10 on a pain scale. GI: Pt is actively vomiting dry heaving. 15:50 Reassessment: ERP at bedside discussing results and POC. jl7 16:00 Reassessment: Patient appears in no apparent distress at this time. Patient and/or jl7 family updated on plan of care and expected duration. Pain level reassessed. Patient is alert, oriented x 3, equal unlabored respirations, skin warm/dry/pink. pain rated 4/10 at this time Patient states feeling better. Patient states symptoms have improved. 16:31 Reassessment: US at bedside. jl7 17:30 Reassessment: No changes from previously documented assessment. Patient and/or family kr3 updated on plan of care and expected duration. Pain level reassessed. Patient is alert, oriented x 3, equal unlabored respirations, skin warm/dry/pink. 18:30 Reassessment: No changes from previously documented assessment. Patient and/or family kr3 updated on plan of care and expected duration. Pain level reassessed. Patient is alert, oriented x 3, equal unlabored respirations, skin warm/dry/pink. Vital Signs: 13:14 BP 138 / 77; Pulse 122; Resp 24; Temp 103.2(O); Pulse Ox 97% on R/A; Weight 80.29 kg; hb Height 5 ft. 10 in. (177.80 cm); Pain 9/10; 14:00 BP 129 / 70; Pulse 127; Resp 30; Pulse Ox 94% ; jl7 14:30 BP 126 / 68; Pulse 132; Resp 32; Pulse Ox 94% ; jl7 15:30 BP 128 / 83; Pulse 132; Resp 29; Pulse Ox 95% ; jl7 16:00 BP 107 / 83; Pulse 127; Resp 25; Pulse Ox 91% ; jl7 16:24 BP 112 / 71; Pulse 123; Resp 25 S; Pulse Ox 92% on R/A; jl7 16:24 Pain 4/10; jl7 16:59 Temp 101.4; kr3 17:00 BP 121 / 78; Pulse 118; Resp 15; Temp 101.4; Pulse Ox 98% ; kr3 17:30 BP 116 / 67; Pulse 115; Resp 16; Pulse Ox 94% on R/A; kr3 20:13 BP 109 / 79; Pulse 100; Resp 23; Temp 98.3(O); Pulse Ox 94% on R/A; ke1 13:14 Body Mass Index 25.40 (80.29 kg, 177.80 cm) hb ED Course: 13:01 Patient arrived in ED. am2 13:14 Karma Pichardo, KAYLA is Primary Nurse. kr3 13:16 Triage completed. hb 13:16 Dewayne Louis PA is PHCP. cp 13:16 Carlos Alcantara MD is Attending Physician. cp 13:17 Arm band placed on. hb 13:25 Initial lab(s) drawn, by me, sent to lab. First set of blood cultures drawn by me. hb 13:29 Pulse ox on. NIBP on. hb 13:29 Inserted saline lock: 20 gauge in right antecubital area, using aseptic technique. hb Blood collected. 13:40 XRAY Chest (1 view) In Process Unspecified. EDMS 13:47 Second set of blood cultures drawn by me. hb 14:00 Patient has correct armband on for positive identification. Placed in gown. Bed in low jl7 position. Call light in reach. Side rails up X2. Client placed on continuous cardiac and pulse oximetry monitoring. NIBP monitoring applied. 14:00 Lab(s) recollected, by me, sent to lab. hb 14:50 CT Stone Protocol In Process Unspecified. EDMS 15:40 Strep swab sent to lab. jl7 16:43 US Rp Exam Complete In Process Unspecified. EDMS 17:17 Transfer initiated by Alexa to the [place]. mw2 20:24 Franklyn from [facility] called back stating he never received the patient mw2 clinical's. I resent them awaiting to hear back from him. 21:07 Contacted Franklyn from [facility] to see if be received the patient clinical's. He mw2 received them and is waiting for the Doctor to call back to do a Doc to Doc. 21:11 Connected Dewayne TREVINO with the Doctor from the [facility]. mw2 21:16 administrative approval given by Franklyn Talbert/ patient has been accepted to the [address]/ Dr. Moreland accepted the patient in transfer/report to be called to [phone]. Administered Medications: 14:08 Discontinued: NS 0.9% 1000 ml IV at 1000 ml once cp 13:30 Drug: NS 0.9% 1000 ml Route: IV; Rate: 1000 ml; Site: right antecubital; kr3 13:30 Drug: Zofran (Ondansetron) 4 mg Route: IVP; Site: right antecubital; kr3 13:30 Drug: ProTONIX (pantoprazole) 40 mg Route: IVP; Site: right antecubital; kr3 16:26 Follow up: Response: No adverse reaction jl7 13:30 Drug: morphine 4 mg Route: IVP; Infused Over: 4 mins; Site: right antecubital; kr3 14:00 Drug: Dilaudid (HYDROmorphone) 1 mg Route: IVP; Site: right antecubital; kr3 14:30 Follow up: Response: No adverse reaction; Pain is decreased jl7 14:22 Drug: NS 0.9% (30 ml/kg) 30 ml/kg Route: IV; Rate: bolus; Site: right antecubital; kr3 15:06 Drug: NS 0.9% (30 ml/kg) 30 ml/kg Route: IV; Rate: bolus; Site: right antecubital; kr3 15:22 CANCELLED (Physician Discretion): Rocephin (cefTRIAXone) 1 grams IV at calculated rate cp once; Given slow IV push per pharmacy instructions 15:49 CANCELLED (Physician Discretion): Rocephin (cefTRIAXone) 1 grams IV at calculated rate jl7 once; Given slow IV push per pharmacy instructions 16:00 Drug: Ibuprofen 800 mg Route: PO; jl7 16:59 Follow up: Temp 101.4; Response: Temperature is decreased kr3 16:15 Drug: Potassium Chloride 20 mEq Route: IV; Rate: calculated rate; Site: right jl7 antecubital; 16:20 Drug: Zosyn (piperacillin-tazobactam) 2.25 grams Route: IVPB; Infused Over: 60 mins; jl7 Site: right antecubital; 16:23 Drug: Ativan (LORazepam) 1 mg Route: IVP; Site: right antecubital; jl7 19:53 Drug: Zofran (Ondansetron) 4 mg Route: IVP; Site: right antecubital; kr3 20:04 Drug: Dilaudid (HYDROmorphone) 1 mg Route: IVP; Site: right antecubital; kr3 Medication: 16:24 VIS not applicable for this client. jl7 Outcome: 16:05 ER care complete, transfer ordered by . [place] 22:13 Patient left the ED. ke1 Signatures: Dispatcher [employer] EDMS Dewayne Louis PA PA cp Baxter, Heather, RN RN April Merino RN RN jl7 Emi Mensah [facility] Milo Wolf RN RN ke1 Karma Pichardo RN RN kr3
--- NOTE | 2022-02-20 17:12 | RAD REPORT ---
EXAM DESCRIPTION: US - Renal Ultrasound-Complete - 02/20/2022 4:42 pm CLINICAL HISTORY: hematuria COMPARISON: <Comparisons>CT 02/20/2022 FINDINGS: The right kidney measures 11.1 x 5.7 x 4.8 cm. The left kidney measures 11.6 x 6.4 x 3.8 cm. Renal cortical thickness and echogenicity are normal. No hydronephrosis or suspicious renal mass. Bladder is tightly contracted limiting assessment. IMPRESSION: No hydronephrosis or suspicious renal mass. Bladder is too contracted to allow full assessment.
[2022-02-20 22:44] VITALS: O2SAT 94
[2022-02-20 22:45] VITALS: BP 109/79; TEMP 98.3
--- NOTE | 2022-02-22 16:03 | EKG ---
Test Date: 2022-02-20 Test Time: 13:51:08 [employer]: KYLIE MEASUREMENT RESULTS: Intervals: Rate: 122 [place]: 180 QRSD: 94 QT: 310 QTc: 441 [place]: P: 74 [place]: 180 QRS: -75 T: 72 INTERPRETIVE STATEMENTS: Sinus tachycardia Left axis deviation Nonspecific T wave abnormality Abnormal ECG Compared to ECG 04/09/2021 13:55:12 T-wave abnormality now present Myocardial infarct finding no longer present Electronically Signed On 02-22-22 15:58:58 CDT by Rick Rodriguez
== END 2022-02-20 22:13 ==
LOC: ER 12:50
DX: R50.9 Fever, unspecified (principal); R65.21 Severe sepsis with septic shock; Z20.822 Contact with and (suspected) exposure to COVID-19; I10 Essential (primary) hypertension
CPT/HCPCS: 93005; 87040 ×2; 87070; 87088; 85025; 87086; 80048; 36415; 83735; 87205 ×2; 85610; 80076; 87081; 83605 ×2; 87077 ×2; 87186 ×2; 84484; 84145; 83880; 87804 ×2; 76377; 74176; 71045; 76770; 96375; 96374; 99284; U0003; J2543; C9113; J3480; J1170 ×2; J7030 ×3; J2405 ×2; 81003; 81015

== ENCOUNTER 2022-10-16 00:11 | Emergency (ER) | payer OTHER ==
[2022-10-16 01:33] LABS: Absolute Lymphocytes (CBC) 1.8 K/uL (0.7-4.9); Hematocrit 22.1 % (39.6-49.0); Lymphocytes % 14.4 % (15.3-44.8); MCV 93.7 fL (80-100); MPV 7.5 fL (7.6-11.3); RBC Red Blood Cell Count 2.36 M/uL (4.33-5.43)
[2022-10-16] MEDS ORDERED: CYCLOBENZAPRINE 10 MG TAB ONE (01:35)
[2022-10-16] MEDS ORDERED: MORPHINE 4 MG/ML SYR ONE (01:36)
[2022-10-16] MEDS ORDERED: ONDANSETRON 4 MG/2 ML VIAL ONE (01:36)
[2022-10-16] MEDS ORDERED: NA CHLORIDE 0.9% 1,000 ML ONE (01:36)
[2022-10-16 01:38] LABS: Protime INR 1.09
[2022-10-16 01:54] LABS: Albumin 3.2 g/dL (3.4-5.0); Bilirubin Direct 0.5 mg/dL (0-0.2); Bilirubin Indirect, Calculated 1.6 mg/dL (0.2-0.8); Bilirubin Total 2.1 mg/dL (0.2-1.0); Protein, Total 7.3 g/dL (6.4-8.2); Troponin High Sensitivity 4.6 pg/mL (<58.9)
[2022-10-16 01:55] LABS: Potassium 4.5 mEq/L (3.5-5.1)
--- NOTE | 2022-10-16 04:15 | EDPHYS ---
Physician Documentation [facility] Name: Beny Alvarez Age: 57 yrs Sex: Male : 1965 Arrival Date: 10/16/2022 Time: 00:11 Bed 19 Private MD: ED Physician Myke Dyer HPI: 10/16 00:50 This 57 yrs old Male presents to ER via Wheelchair with complaints of sp4 Breathing Difficulty. 03:47 Patient is 57-year-old male with history of extensive traumatic injuries on 10/06/2022 sp4 including traumatic fracture of the ribs with pneumothorax on the right side, traumatic hemothorax on the right side, acute kidney injury, excessive alcoholism, acute blood loss anemia, pulmonary contusion and hypoxia also subluxation of right AC joint, who was managed at [facility] after he fell from the [facility]. Patient was diagnosed with a right AC joint separation, thoracic spine fractures, right 1 through 9 rib fractures, right pneumothorax. Orthopedic surgery including nonoperative management of AC joint, thoracic spinal fractures were treated with nonoperative management, patient underwent open reduction internal fixation of the right ribs with chest tube placement, and persistent bleeding with a chest tube site. Patient was managed after that in the hospital and discharged on 10/15/2022. Patient was sent home with Tylenol for pain gabapentin and Robaxin. Also with tramadol for moderate to severe pain.. Patient arrived home experienced worsening chest pain and difficulty breathing and presented here to the emergency room for evaluation.. Historical: - Allergies: 00:36 NSAIDS; pf1 - Family history:: not pertinent. ROS: 03:47 Constitutional: Negative for fever, chills, and weight loss, Eyes: Negative for injury, sp4 pain, redness, and discharge, ENT: Negative for injury, pain, and discharge, Neck: Negative for injury, pain, and swelling, Cardiovascular: Positive right-sided pleuritic chest pain positive for right-sided postoperative pain negative edema. Respiratory: Positive for shortness of brain, positive right-sided pleuritic chest pain. Abdomen/GI: Negative for abdominal pain, nausea, vomiting, diarrhea, and constipation, Back: Negative for injury positive for posttraumatic back pain. : Negative for injury, bleeding, discharge, and swelling, MS/Extremity: Negative for injury and deformity, Skin: Negative for injury, rash, positive for posterior right lower hematoma Neuro: Negative for headache, weakness, numbness, tingling, and seizure, Psych: Negative for depression, anxiety, Allergy/Immunology: Negative for hives, rash, and allergies Endocrine: Negative for neck swelling, polydipsia, polyuria, polyphagia, and weight changes Hematologic/Lymphatic: Negative for swollen nodes, abnormal bleeding, and unusual bruising Exam: 03:47 Constitutional: This is a well developed, well nourished patient who is awake, alert, sp4 Head/Face: Normocephalic, atraumatic. Eyes: Pupils equal round and reactive to light, extra-ocular motions intact. Lids and lashes normal. Conjunctiva and sclera are not injected. Cornea within normal limits. Periorbital areas with no swelling, redness, or edema. ENT: Nares patent. No nasal discharge, no septal abnormalities noted. Tympanic membranes are normal and external auditory canals are clear. Oropharynx with no redness, swelling, or masses, exudates, or evidence of obstruction, uvula midline. Mucous membranes moist. Neck: Trachea midline, no thyromegaly or masses palpated, and no cervical lymphadenopathy. Supple, full range of motion without nuchal rigidity, or vertebral point tenderness. Chest/axilla: Normal chest wall appearance and motion, right-sided wound from recent chest tube placement, right lower chest wall posterior hematoma, right chest wall crepitus from recent injury, tenderness to palpation. Cardiovascular: Regular rate and rhythm with a normal S1 and S2. No gallops, murmurs, or rubs. Normal PMI, no JVD. No pulse deficits. Respiratory: Diminished breath sounds right side, normal breath sounds left side, diminished breath sounds at the right base of the lung otherwise unremarkable. No crackles. Abdomen/GI: Soft, non-tender, with normal bowel sounds. No distension or tympany. No guarding or rebound. No evidence of tenderness throughout. Back: No spinal tenderness. No costovertebral tenderness. Right lower back tenderness and hematoma. Male : Normal genitalia with no discharge or lesions. Skin: Warm, dry with normal turgor. Normal color with no rashes, no lesions, and no evidence of cellulitis. MS/ Extremity: Pulses equal, no cyanosis. Neurovascular intact. Full, normal range of motion. Neuro: Awake and alert, GCS 15, oriented to person, place, time, and situation. Cranial nerves II-XII grossly intact. Motor strength 5/5 in all extremities. Sensory grossly intact. Psych: Awake, alert, with orientation to person, place and time. Behavior, mood, and affect are within normal limits 04:08 ECG was reviewed by the Attending Physician. Normal sinus rhythm at rate of 96, EKG sp4 time 0 110, left axis deviation, no ectopy Vital Signs: 00:32 BP 137 / 81; Pulse 100; Resp 20; Temp 97.7; Pulse Ox 100% on R/A; Weight 95.25 kg; pf1 Height 5 ft. 10 in. ; Pain 7/10; 01:52 BP 134 / 77; Pulse 96; Resp 16; Pulse Ox 100% on R/A; jb4 03:00 BP 131 / 88; Pulse 100; Resp 13; Pulse Ox 99% on R/A; jb4 04:00 BP 153 / 77; Pulse 104; Resp 21; Pulse Ox 99% on R/A; jb4 00:32 Body Mass Index 30.13 (95.25 kg, 177.8 cm) pf1 00:32 Pain Scale: Adult pf1 MDM: 00:51 Patient medically screened. sp4 02:40 ED course: EXAM DESCRIPTION: Chest Single View 10/16/2022 2:28 AM CDT CLINICAL HISTORY: sp4 57 years, Male, CHEST PAIN COMPARISON: None. FINDINGS: Single view of the chest was obtained portable. No prior films are available for comparison. The cardiomediastinal silhouette demonstrate to be unremarkable. The heart is not enlarged. The thoracic aorta is unremarkable. The pulmonary vasculature is normal distribution. Costophrenic angles are sharp. No areas of consolidation or masses are seen. There is no evidence for pneumothorax. There is a lateral second third fourth fifth right rib fracture. Plate fixation device within the fifth 6 and seventh right rib. Small amount of subcutaneous air lateral right chest and upper lateral abdomen. No evidence for pneumothorax. Left lung is clear. The rest of the soft tissue and bony structures demonstrate to be unremarkable. IMPRESSION: No acute cardiopulmonary process identified. Lateral second third fourth fifth right rib fracture with sideplate fixation device in place. . 04:02 ED course: IMPRESSION: Multiple right-sided rib fractures as well as fractures of the sp4 right transverse process of T2-T6 vertebral bodies. Small trace of right pleural effusion with compressive atelectatic changes. Subcutaneous emphysema involving the right axillary area, anterior and lateral right abdominal wall and anterior lateral abdominal wall. No evidence acute intrathoracic/or intra-abdominal process. Cirrhotic appearing liver with recanalized umbilical vein related to perhaps portal hypertension. Status post cholecystectomy. Minimal amount of air within the urinary bladder perhaps related to previous Villeda catheter. . 04:08 Differential diagnosis: Anxiety Reaction Bronchitis Chronic Obstructive Pulmonary sp4 Disease pneumonia, Pneumothorax pulmonary edema. Data reviewed: vital signs, nurses notes, old medical records, lab test result(s), EKG, radiologic studies, CT scan, plain films. 04:08 ED course: Patient basically has sequela of recent acute traumatic injury that occurred sp4 on 10/06/2022 with plated ribs on the right side, trace pleural effusion on the right side. Transverse process fractures of the T-spine. But no acute findings on a CAT scan. Patient will be advised to take his prescribed medication which is tramadol, Tylenol, gabapentin, and will add Robaxin as needed for muscle soreness. Will advise patient to follow-up with his trauma team at [facility].. 10/16 00:57 Order name: Basic Metabolic Panel; Complete Time: 02:40 10/16 00:57 Order name: CBC with Diff; Complete Time: 02:40 10/16 00:57 Order name: LFT's; Complete Time: 02:40 10/16 00:57 Order name: NT PRO-BNP; Complete Time: 02:40 10/16 00:57 Order name: PT-INR; Complete Time: 02:40 10/16 00:57 Order name: Troponin HS; Complete Time: 02:40 10/16 00:57 Order name: XRAY Chest (1 view) 10/16 00:58 Order name: CT Chest, Abdomen, Pelvis - W/Contrast 10/16 00:57 Order name: EKG; Complete Time: 00:57 4 10/16 00:57 Order name: Cardiac monitoring; Complete Time: 01:44 10/16 00:57 Order name: EKG - Nurse/Tech; Complete Time: 01:16 [facility] 10/16 00:57 Order name: IV Saline Lock; Complete Time: 01:44 4 10/16 00:57 Order name: Labs collected and sent; Complete Time: 01:44 sp4 10/16 00:57 Order name: O2 Per Protocol; Complete Time: sp4 10/16 00:57 Order name: O2 Sat Monitoring; Complete Time: sp4 EC:08 Rate is 96 beats/min. Rhythm is regular, Sinus Rhythm. Left axis deviation noted. MN sp4 interval is normal. QRS interval is normal. QT interval is normal. T waves are Normal. No ST changes noted. Clinical impression: No evidence of ischemia. Interpreted by me. Administered Medications: 01:44 Drug: morphine IVP or IV 4 mg Route: IVP; Infused Over: 4 mins; Site: right wrist; jb4 01:44 Drug: Cyclobenzaprine PO 10 mg Route: PO; jb4 01:44 Drug: Ondansetron IVP 4 mg Route: IVP; Site: right wrist; jb4 01:44 Drug: NS 0.9% IV 1000 ml Route: IV; Rate: 125 ml/hr; Site: right wrist; jb4 04:39 Drug: [place] PO 10 mg-325 mg 1 tabs Route: PO; jb4 04:39 Drug: MetoCLOPramide PO 10 mg Route: PO; jb4 Disposition Summary: 10/16/22 04:14 Discharge Ordered Location: Home sp4 Problem: new sp4 Symptoms: have improved sp4 Condition: Stable sp4 Diagnosis - Chest wall pain, right lateral rib fractures 1 through 9 status post open reduction sp4 internal fixation. - Right pleural effusion posttraumatic pleural effusion, right chest wall crepitus, sp4 subcutaneous emphysema, sequela of recent traumatic injury. Followup: sp4 - With: Private Physician - When: 7 - 10 days - Reason: Recheck today's complaints Discharge Instructions: - Discharge Summary Sheet sp4 - Chest Wall Pain, [id number] sp4 Prescriptions: - methocarbamol 750 mg Oral Tablet - take 2 tablets by ORAL route 4 times per day for 3 days PRN muscle soreness; 62 sp4 tablet; Refills: 0, Product Selection Permitted Signatures: Dispatcher [employer] EDTres Wolf RN RN jb4 Sara Vasquez RN RN pf1 Myke Dyer MD MD sp4 Corrections: (The following items were deleted from the chart) 04:10 03:47 Constitutional: This is a well developed, well nourished patient who is awake, sp4 alert, sp4
--- NOTE | 2022-10-16 04:15 | ER ---
Nurse's Notes [facility] Name: Beny Alvarez Age: 57 yrs Sex: Male : 1965 Arrival Date: 10/16/2022 Time: 00:11 Bed 19 Private MD: Diagnosis: Chest wall pain, right lateral rib fractures 1 through 9 status post open reduction internal fixation.;Right pleural effusion posttraumatic pleural effusion, right chest wall crepitus, subcutaneous emphysema, sequela of recent traumatic injury. Presentation: 10/16 00:32 Chief complaint: Patient states: SOB,onset today with right side body pain of 7 from pf1 the fall,onset 10/06/22. Patient stated was discharged from [facility] today and was treated for S/P fall from 2nd floor [facility] onto the ground, was life flighted to [facility] on October 06, 2022. Patient stated had surgery to 5 rib fractures. Coronavirus screen: Vaccine status: Patient reports being unvaccinated. Client denies travel out of the [place] in the last 14 days. Client presents with at least one sign or symptom that may indicate coronavirus-19. Ebola Screen: Patient negative for fever greater than or equal to 101.5 degrees Fahrenheit, and additional compatible Ebola Virus Disease symptoms. Initial Sepsis Screen: Does the patient meet any 2 criteria? HR > 90 bpm. No. Patient's initial sepsis screen is negative. Does the patient have a suspected source of infection? No. Patient's initial sepsis screen is negative. Risk Assessment: Do you want to hurt yourself or someone else? Patient reports no desire to harm self or others. 00:32 Method Of Arrival: Wheelchair pf1 00:32 Acuity: KALEY 3 pf1 Historical: - Allergies: 00:36 NSAIDS; pf1 - Family history:: not pertinent. Screenin:00 [facility] ED Fall Risk Assessment (Adult) History of falling in the last 3 months, jb4 including since admission No falls in past 3 months (0 pts) Confusion or Disorientation No (0 pts) Score/Fall Risk Level 0 - 2 = Low Risk Oriented to surroundings, Maintained a safe environment. Abuse screen: Denies threats or abuse. Nutritional screening: No deficits noted. Tuberculosis screening: No symptoms or risk factors identified. Assessment: 01:00 General: Appears in no apparent distress. uncomfortable, Behavior is calm, cooperative, jb4 appropriate for age. Pain: Complains of pain in back and chest Pain does not radiate. Pain currently is 10 out of 10 on a pain scale. Neuro: Level of Consciousness is awake, alert, obeys commands, Oriented to person, place, time, situation. Cardiovascular: Patient's skin is warm and dry. Respiratory: Airway is patent Respiratory effort is even, labored, Respiratory pattern is regular, symmetrical, Breath sounds are clear bilaterally. GI: No signs and/or symptoms were reported involving the gastrointestinal system. : No signs and/or symptoms were reported regarding the genitourinary system. EENT: No signs and/or symptoms were reported regarding the EENT system. Derm: Skin is intact, Skin is pink, warm \T\ dry. Musculoskeletal: Circulation, motion, and sensation intact. Range of motion: intact in all extremities. 01:52 Reassessment: Patient appears in no apparent distress at this time. Patient and/or jb4 family updated on plan of care and expected duration. Pain level reassessed. Patient is alert, oriented x 3, equal unlabored respirations, skin warm/dry/pink. 02:38 Reassessment: Patient appears in no apparent distress at this time. Patient and/or jb4 family updated on plan of care and expected duration. Pain level reassessed. Patient is alert, oriented x 3, equal unlabored respirations, skin warm/dry/pink. 03:45 Reassessment: pt is resting in bed with eyes closed, no s/s of pain or distress noted, jb4 respirations are even and unlabored. 04:41 Reassessment: Patient appears in no apparent distress at this time. Patient and/or jb4 family updated on plan of care and expected duration. Pain level reassessed. Patient is alert, oriented x 3, equal unlabored respirations, skin warm/dry/pink. Patient states feeling better. Vital Signs: 00:32 BP 137 / 81; Pulse 100; Resp 20; Temp 97.7; Pulse Ox 100% on R/A; Weight 95.25 kg; pf1 Height 5 ft. 10 in. ; Pain 7/10; 01:52 BP 134 / 77; Pulse 96; Resp 16; Pulse Ox 100% on R/A; jb4 03:00 BP 131 / 88; Pulse 100; Resp 13; Pulse Ox 99% on R/A; jb4 04:00 BP 153 / 77; Pulse 104; Resp 21; Pulse Ox 99% on R/A; jb4 00:32 Body Mass Index 30.13 (95.25 kg, 177.8 cm) pf1 00:32 Pain Scale: Adult pf1 ED Course: 00:17 Patient arrived in ED. es 00:36 Triage completed. pf1 00:50 Myke Dyer MD is Attending Physician. sp4 01:00 Patient has correct armband on for positive identification. Bed in low position. Call jb4 light in reach. Side rails up X 1. Client placed on continuous cardiac and pulse oximetry monitoring. NIBP monitoring applied. senior principal architect on. 01:36 Radiology exam delayed due to lab results not completed at this time. (BUN/Creatinine). nj 01:44 Tres Au, RN is Primary Nurse. jb4 02:16 XRAY Chest (1 view) In Process Unspecified. EDMS 02:20 CT Chest, Abdomen, Pelvis - W/Contrast In Process Unspecified. EDMS 04:42 No provider procedures requiring assistance completed. IV discontinued, intact, jb4 bleeding controlled, No redness/swelling at site. Pressure dressing applied. Administered Medications: 01:44 Drug: morphine IVP or IV 4 mg Route: IVP; Infused Over: 4 mins; Site: right wrist; jb4 01:44 Drug: Cyclobenzaprine PO 10 mg Route: PO; jb4 01:44 Drug: Ondansetron IVP 4 mg Route: IVP; Site: right wrist; jb4 01:44 Drug: NS 0.9% IV 1000 ml Route: IV; Rate: 125 ml/hr; Site: right wrist; jb4 04:39 Drug: [place] PO 10 mg-325 mg 1 tabs Route: PO; jb4 04:39 Drug: MetoCLOPramide PO 10 mg Route: PO; jb4 Medication: 04:00 VIS not applicable for this client. jb4 Outcome: 04:14 Discharge ordered by . sp4 04:42 Discharged to home via wheelchair, with family. jb4 04:42 Condition: stable 04:42 Discharge instructions given to patient, Instructed on discharge instructions, follow up and referral plans. no drinking with medication, no driving heavy equipment, medication usage, Demonstrated understanding of instructions, follow-up care, medications, Prescriptions given X 1. 04:42 Patient left the ED. jb4 Signatures: Dispatcher [employer] Maliha Ken James, RN RN jb4 Rivera Elias Pamala, RN RN pf1 Myke Dyer MD MD sp4 Corrections: (The following items were deleted from the chart) 04:42 04:00 Patient has correct armband on for positive identification. Bed in low position. jb4 Call light in reach. Side rails up X 1. jb4 04:42 04:00 Client placed on continuous cardiac and pulse oximetry monitoring. NIBP jb4 monitoring applied. senior principal architect on. jb4
[2022-10-16] MEDS ORDERED: METOCLOPRAMIDE 5 MG TAB ONE (04:24)
[2022-10-16] MEDS ORDERED: HYDROCODONE/APAP 10/325 TAB ONE (04:25)
[2022-10-16 04:46] VITALS: TEMP 97.7
[2022-10-16 04:49] VITALS: O2SAT 99
[2022-10-16 04:50] VITALS: BP 153/77
--- NOTE | 2022-10-16 21:12 | RAD REPORT ---
EXAM DESCRIPTION: CT - Chest Abdomen Pelvis W Cont - 10/16/2022 6:22 am CLINICAL HISTORY: 57 years, Male, SOB, right side body pain, recent fall COMPARISON: Previous CT scan of the chest performed 02/20/2022 TECHNIQUE: Contrast-enhanced images of the chest, abdomen and pelvis were performed utilizing 5 mm s lice thickness at 5 mm interval reconstruction from the lung apices to the ischial tuberosities after the administration of IV contrast. In addition multiplanar reformats in the coronal and sagittal plane were obtained and reviewed. This exam was performed according to our departmental dose-optimization protocol, which includes auto mated exposure control, adjustment of the mA and/or kV according to patient size and/or use of iterat [place] reconstruction technique. CHEST: The lungs parenchyma demonstrate the presence of small trace of right pleural effusion with co mpressive atelectatic changes. There is small right costoclavicular fracture on axial image 7/137. Th ere is fracture of the posterior aspect right first rib on image 3, there is fracture lateral right s econd rib, there is a fracture lateral third. There is small fracture right transverse process of T2- T6. There is fracture of the lateral right second, right third, posterior right fourth, posterior fif th right with plate fixation device, posterior right sixth with plate fixation device posterior right 7 with plate fixation posterior right eighth with plate fixation posterior right ninth with plate fi xation. There is a posterior left 11th rib fracture There is subcutaneous emphysema involving the right axillary area, anterior and lateral right abdomin al wall and anterior lateral abdominal wall. There is no definitive evidence for right scapular fract ure. The rest of the bony structures demonstrate to be within normal limits. There is no evidence for pneumothorax. The lungs parenchyma demonstrate to be otherwise unremarkable. No definitive lung contusion. The trachea mainstem bronchus demonstrate to be normal. There is no significant left pleural and/or p ericardial effusions. The heart is normal in size. The the thoracic aorta demonstrate to be within normal limits. No evid ence for aneurysm/or significant dissection. The central pulmonary arteries demonstrate to be normal with no significant major filling defects. There is no significant mediastinal and/or hilar lymphaden opathy. The axillary regions demonstrate to be clear. ABDOMEN AND PELVIS: The liver is increase in size with nodular surface of the liver. There is recanal ized umbilical vein related to perhaps portal hypertension. The pancreas, spleen and adrenal glands demonstrate to be unremarkable, no focal lesions are noted. There is a status post cholecystectomy. No evidence for solid organ injury. Findings just very minimal trace of fluid within the right and left paracolic gutter. The kidneys demonstrate normal uptake of contrast media with no significant hydronephrosis. Grossly the unopacified stomach, small bowel and large bowel demonstrate to be within normal limits. There is no evidence for bowel dilatation and/or free air. Clips within the right lower quadrant/cecu m correspond to most likely previous appendectomy. The urinary bladder demonstrate minimal amount of air perhaps related to previous Villeda catheter. T he prostate gland is normal. The aorta demonstrate to be normal. There is no retroperitoneal lymp hadenopathy. There is no evidence for ascites/or retroperitoneal hemorrhage. The vertebral bodies of the lumbar spine, spinous processes, transverse processes demonstrate to be u nremarkable. There is partial sacralization right side of L5. The sacrum demonstrate to unremarkable. Iliac bones demonstrate to be within normal limits. Superior and inferior pubic gram a demonstrate n o evidence for fracture. Bilateral hip joints and proximal aspect of the femurs demonstrate to be wit hin normal limits. IMPRESSION: Multiple right-sided rib fractures as well as fractures of the right transverse process of T2-T6 vertebral bodies. Small trace of right pleural effusion with compressive atelectatic changes. Subcutaneous emphysema involving the right axillary area, anterior and lateral right abdominal wall a nd anterior lateral abdominal wall. No evidence acute intrathoracic/or intra-abdominal process. Cirrhotic appearing liver with recanalized umbilical vein related to perhaps portal hypertension. Status post cholecystectomy. Minimal amount of air within the urinary bladder perhaps related to previous Villeda catheter. Electronically signed by: Rob Story MD 10/16/2022 2:53 AM CDT Due to temporary technical issues with the PACS/Fluency reporting system, reports are being signed by the in house radiologists without review as a courtesy to insure prompt reporting. The interpreting radiologist is fully responsible for the content of the report.
--- NOTE | 2022-10-16 21:13 | RAD REPORT ---
EXAM DESCRIPTION: RAD - Chest Single View - 10/16/2022 2:14 am CLINICAL HISTORY: 57 years, Male, CHEST PAIN COMPARISON: None. FINDINGS: Single view of the chest was obtained portable. No prior films are available for compariso n. The cardiomediastinal silhouette demonstrate to be unremarkable. The heart is not enlarged. The th oracic aorta is unremarkable. The pulmonary vasculature is normal distribution. Costophrenic angles a re sharp. No areas of consolidation or masses are seen. There is no evidence for pneumothorax. Ther e is a lateral second third fourth fifth right rib fracture. Plate fixation device within the fifth 6 and seventh right rib. Small amount of subcutaneous air lateral right chest and upper lateral abdome n. No evidence for pneumothorax. Left lung is clear. The rest of the soft tissue and bony structures demonstrate to be unremarkable. IMPRESSION: No acute cardiopulmonary process identified. Lateral second third fourth fifth right rib fracture with sideplate fixation device in place. Electronically signed by: Rob Story MD 10/16/2022 2:30 AM CDT Due to temporary technical issues with the PACS/Fluency reporting system, reports are being signed by the in house radiologists without review as a courtesy to insure prompt reporting. The interpreting radiologist is fully responsible for the content of the report.
--- NOTE | 2022-10-17 14:24 | EKG ---
Test Date: 2022-10-16 Test Time: 01:10:55 Tele Rn: VAISHALI MEASUREMENT RESULTS: Intervals: Rate: 96 HI: 180 QRSD: 98 QT: 374 QTc: 472 [place]: P: 81 HI: 180 QRS: -44 T: 53 INTERPRETIVE STATEMENTS: Normal sinus rhythm Left axis deviation Pulmonary disease pattern Abnormal ECG Compared to ECG 02/20/2022 13:51:08 Sinus tachycardia no longer present T-wave abnormality no longer present Electronically Signed On 10-17-22 14:22:02 CDT by Rick Rodriguez
== END 2022-10-16 04:42 | disposition home or self-care (01) ==
LOC: ER 00:11
DX: J90 Pleural effusion, not elsewhere classified (principal); S22.41XS Multiple fractures of ribs, right side, sequela; T79.7XXS Traumatic subcutaneous emphysema, sequela; R29.898 Other symptoms and signs involving the musculoskeletal system; Z98.890 Other specified postprocedural states; Z88.6 Allergy status to analgesic agent
CPT/HCPCS: 93005; 85025; 80048; 36415; 85610; 80076; 84484; 83880; 71260; 74177; 71045; 96375; 96374; 99285; Q9967; J2405; J7030

== ENCOUNTER 2023-02-18 16:26 | Emergency (ER) | payer OTHER ==
--- OUTSIDE RECORDS SUMMARY | 2023-02-18 16:28 | XMS REPORT | Continuity of Care Document ---
:1965 Author Organization [facility] t Address [address] [place] [address] [address] [place] [address] Care Team Providers Name Role Phone JANELL ORTEGA Primary Care Physician Unavailable RADIOLOGY Attending Clinician Unavailable Radiology Attending Clinician Unavailable ABBI ALICIA Attending Clinician Unavailable JANELL ORTEGA Admitting Clinician Unavailable Payers Payer Name Policy Type Policy Number Effective Date Expiration Date S cassandra [facility] [id number] 2010 00:00:00 [facility] OON [id number] 2010 00:00:00 Problems This patient has no known problems. Allergies, Adverse Reactions, Alerts Allergy Allergy Status Severity Reaction(s) Onset Inactive Treating Comm ents Source Name Type Date Date Clinician NO KNOWN Drug Active [facility] [place] [place] [facility] Social History Social Habit Start Date Stop Date Quantity Comments Source Gender identity [facility] [place] Sexual orientation [facility] Sex Assigned At [birth year] [facility] 00:00:00 00:00:00 [facility] Smoking Status Start Date Stop Date Source Tobacco smoking consumption [facility] Medications This patient has no known medications. Procedures Procedure Date / Time Performing Clinician Source Performed NO SHOW OR MISSED 2022-11-18 21:24:55 Doctor Unassigned, [facility] APPOINTMENT POLICY [facility] ACKNOWLEDGEMENT [facility] PATIENT FINANCIAL 2022-11-18 21:24:37 Doctor Unassigned, [facility] POLICY [facility] NOTICE OF PRIVACY 2022-11-18 21:24:20 Doctor Unassigned, [facility] PRACTICES [facility] CONSENT/REFUSAL FOR 2022-11-18 21:24:05 Doctor Unassigned, [facility] DIAGNOSIS AND TREATMENT [facility] ASSIGNMENT OF BENEFITS 2022-11-18 21:23:50 [facility] Encounters Start End Encounter Admission Attending Care Care Encounter Source Date/Time Date/Time Type Type Clinicians Facility Department ID 2022-11-18 2022-11-18 Outpatient R RADIOLOGY [facility] [id number] [facility] [place] [place] 16:27:08 23:59:00 ity [facility] 2022-11-18 2022-11-18 [facility] Radiology [facility] [id number] [facility] [place] [place] 16:27:08 23:59:00 [facility]counter [place] [id number] [id number] [facility] 804 Branch 2022-10-08 2022-10-08 Outpatient [facility] [id number] [place] 05:00:00 05:00:00 [employer] Results This patient has no known results.
[2023-02-18 17:30] LABS: Absolute Lymphocytes (CBC) 0.3 K/uL (0.7-4.9); Hematocrit 30.6 % (39.6-49.0); Lymphocytes % 2.9 % (15.3-44.8); MCV 93.7 fL (80-100); MPV 9.2 fL (7.6-11.3); Platelets 166 thou/uL (152-406); RBC Red Blood Cell Count 3.27 M/uL (4.33-5.43)
[2023-02-18 17:33] LABS: Protime INR 1.45
[2023-02-18 18:06] LABS: Albumin 2.2 g/dL (3.4-5.0); Bilirubin Direct 1.9 mg/dL (0-0.2); Bilirubin Indirect, Calculated 0.5 mg/dL (0.2-0.8); Bilirubin Total 2.4 mg/dL (0.2-1.0); Magnesium 1.7 mg/dL (1.6-2.4); Potassium 4.3 mEq/L (3.5-5.1); Protein, Total 7.1 g/dL (6.4-8.2); Troponin High Sensitivity 14.3 pg/mL (<58.9)
[2023-02-18] MEDS ORDERED: NA CHLORIDE 0.9% 1,000 ML ONE (18:19)
[2023-02-18 18:49] LABS: Specific Gravity 1.013 (1.005-1.030); Urine Bacteria <20 /HPF (<20); Urine Bilirubin NEGATIVE (Negative); Urine Blood 1+ (Negative); Urine Clarity Extremely Turbid (Clear); Urine Color Yellow (Yellow); Urine Crystals Unidentified Few /HPF (None Seen); Urine Glucose 3+ (Negative); Urine Mucus Slight /HPF (None Seen); Urine Protein 3+ (Negative); Urine Urobilinogen Normal (Normal)
[2023-02-18 18:50] LABS: Urine WBC Clump Occasional /HPF (None Seen)
[2023-02-18] MEDS ORDERED: FOLIC ACID 1 MG, MULTIVITAMINS INJ 10 ML, THIAMINE HCL 100 MG in NA CHLORIDE 0.9% 1,000 ML IV ONE (19:00)
--- NOTE | 2023-02-18 19:17 | EDPHYS ---
Physician Documentation [facility] Name: Beny Alvarez Age: 57 yrs Sex: Male : 1965 Arrival Date: 02/18/2023 Time: 16:26 Bed 2 Private MD: ED Physician Dewayne Higgins HPI: 02/18 18:39 This 57 yrs old Male presents to ER via Wheelchair with complaints of Blood sharon Pressure Problem. 18:39 The patient presents with abdominal pain in the upper abdomen, in the lower abdomen. sharon Historical: - Allergies: 16:45 NSAIDS; ld1 - PMHx: 16:45 acid reflux; Hypertensive disorder; tremors; Cirrhosis of liver; CHF; ld1 - PSHx: 16:45 Cholecystectomy; ld1 - Immunization history:: Adult Immunizations up to date. - Social history:: Smoking status: Patient denies any tobacco usage or history of. Patient/guardian denies using alcohol, but has a distant history of alcohol abuse. ROS: 19:08 Eyes: Negative for injury, pain, redness, and discharge, ENT: Negative for injury, sharon pain, and discharge, Neck: Negative for injury, pain, and swelling, Cardiovascular: Negative for chest pain, palpitations, and edema, Respiratory: Negative for shortness of breath, cough, wheezing, and pleuritic chest pain, : Negative for injury, bleeding, discharge, and swelling, MS/Extremity: Negative for injury and deformity, Skin: Negative for injury, rash, and discoloration, Psych: Negative for depression, anxiety, suicide ideation, homicidal ideation, and hallucinations, Allergy/Immunology: Negative for hives, rash, and allergies, Endocrine: Negative for neck swelling, polydipsia, polyuria, polyphagia, and marked weight changes, Hematologic/Lymphatic: Negative for swollen nodes, abnormal bleeding, and unusual bruising, 19:08 Constitutional: Positive for fatigue, poor PO intake, 19:08 Abdomen/GI: Positive for nausea, abdominal cramps, abdominal distension, of the right upper quadrant, left upper quadrant, right lower quadrant and left lower quadrant, 19:08 Back: Negative for injury or acute deformity, decreased range of motion, pain at rest, sharon pain with movement, radiated pain, 19:08 Neuro: Positive for near syncope, weakness, Negative for altered mental status, Exam: 19:08 Head/Face: Normocephalic, atraumatic. Eyes: Pupils equal round and reactive to light, sharon extra-ocular motions intact. Lids and lashes normal. Conjunctiva and sclera are non-icteric and not injected. Cornea within normal limits. Periorbital areas with no swelling, redness, or edema. ENT: Nares patent. No nasal discharge, no septal abnormalities noted. Tympanic membranes are normal and external auditory canals are clear. Oropharynx with no redness, swelling, or masses, exudates, or evidence of obstruction, uvula midline. Mucous membranes moist. Neck: Trachea midline, no thyromegaly or masses palpated, and no cervical lymphadenopathy. Supple, full range of motion without nuchal rigidity, or vertebral point tenderness. No Meningismus. Chest/axilla: Normal chest wall appearance and motion. Nontender with no deformity. No lesions are appreciated. Cardiovascular: Regular rate and rhythm with a normal S1 and S2. No gallops, murmurs, or rubs. Normal PMI, no JVD. No pulse deficits. Respiratory: Lungs have equal breath sounds bilaterally, clear to auscultation and percussion. No rales, rhonchi or wheezes noted. No increased work of breathing, no retractions or nasal flaring. Male : Normal genitalia with no discharge or lesions. Skin: Warm, dry with normal turgor. Normal color with no rashes, no lesions, and no evidence of cellulitis. MS/ Extremity: Pulses equal, no cyanosis. Neurovascular intact. Full, normal range of motion. Neuro: Awake and alert, GCS 15, oriented to person, place, time, and situation. Cranial nerves II-XII grossly intact. Motor strength 5/5 in all extremities. Sensory grossly intact. Cerebellar exam normal. Normal gait. Psych: Awake, alert, with orientation to person, place and time. Behavior, mood, and affect are within normal limits. 19:08 Constitutional: The patient appears lethargic, in obvious distress, mildly distressed, 19:08 ECG was reviewed by the Attending Physician. Vital Signs: 16:47 BP 66 / 45; Pulse 92; Resp 18; Temp 98.4(O); Pulse Ox 96% on R/A; Weight 86.64 kg; ld1 Height 5 ft. 9 in. ; Pain 8/10; 17:01 BP 69 / 44; Pulse 88; Pulse Ox 91% on R/A; ph 17:30 BP 84 / 52; Pulse 87; Resp 14; Pulse Ox 96% on R/A; hb 18:15 BP 104 / 72; Pulse 82; Resp 15; Pulse Ox 97% on R/A; hb 18:31 BP 109 / 72; Pulse 89; Resp 16; Pulse Ox 97% on R/A; ph 19:30 BP 99 / 64; Pulse 88; Resp 12; Pulse Ox 97% ; jb4 20:14 BP 94 / 65; Pulse 88; Resp 16; Pulse Ox 98% on R/A; jb4 20:44 BP 92 / 59; Pulse 89; Resp 15; Pulse Ox 95% on R/A; jb4 21:15 BP 95 / 66; Pulse 89; Resp 16; Pulse Ox 96% on R/A; jb4 21:45 BP 83 / 53; Pulse 87; Resp 14; Pulse Ox 96% on R/A; jb4 22:15 BP 94 / 63; Pulse 78; Resp 16; Pulse Ox 98% on R/A; jb4 16:47 Body Mass Index 28.21 (86.64 kg, 175.26 cm) ld1 16:47 Pain Scale: Adult ld1 MDM: 16:56 Patient medically screened. sharon 19:11 Differential Diagnosis altered mental status, sepsis, flu. Differential Diagnosis: sharon aortic aneurysm, cardiac arrhythmia, emotional response, GI bleed, sepsis, vasovagal episode. Differential diagnosis: acute coronary syndrome, bowel obstruction, cholecystitis, Cholelithiasis, diverticulitis, gastritis, gastroesophageal reflux disease, GI Bleed, Mesenteric ischemia or infarction, non-specific abd pain, pancreatitis, Peptic Ulcer Disease, Perf. Duodenal Ulcer, Peritonitis, Prostatitis, Pyelonephritis, Ureterolithiasis, urinary tract infection. Data reviewed: vital signs, nurses notes, lab test result(s), EKG, radiologic studies, CT scan, plain films. Consideration of Admission/Observation Escalation of care including admission/observation considered. Management of patient was discussed with the following: Skinner Pelts: ICU ATTENDING RAVINDRA, [place] BEDS AT THE SD. I considered the following discharge prescriptions or medication management in the emergency department Medications were administered in the Emergency Department. See MAR. Independent interpretation of the following test(s) in the Emergency Department EKG: See my EKG interpretation above. Test considered but Not performed: Ultrasound NO ABD USG. Historians other than the Patient: Spouse/Significant Other: . Care significantly affected by the following chronic conditions: Hypertension, Congestive Heart Failure, Obesity, Chronic Kidney Disease, Liver Disease, ALCOHOLIC, CHF, GERD. Counseling: I had a detailed discussion with the patient and/or guardian regarding the historical points, exam findings, and any diagnostic results supporting the discharge/admit diagnosis, lab results, radiology results, the need to transfer to another facility, for higher level of care, [facility] does not immediately have the required specialist. 02/18 16:59 Order name: Basic Metabolic Panel; Complete Time: 18:12 [facility] 02/18 16:59 Order name: CBC with Diff; Complete Time: 18:10 [facility] 02/18 16:59 Order name: LFT's; Complete Time: 18:12 [facility] 02/18 16:59 Order name: Magnesium; Complete Time: 18:12 [facility] 02/18 16:59 Order name: NT PRO-BNP; Complete Time: 18:12 [facility] 02/18 16:59 Order name: PT-INR; Complete Time: 18:10 [facility] 02/18 16:59 Order name: Troponin HS; Complete Time: 18:12 [facility] 02/18 16:59 Order name: Lipase; Complete Time: 18:12 [facility] 02/18 16:59 Order name: Urinalysis w/ reflexes [facility] 02/18 16:59 Order name: Blood Culture Adult (2) [facility] 02/18 16:59 Order name: Lactate w/ 2H reflex if indic.; Complete Time: 18:33 02/18 16:59 Order name: AMMONIA; Complete Time: 18:10 [facility] 02/18 16:59 Order name: Type And Screen; Complete Time: 18:10 [facility] 02/18 18:11 Order name: Urine Sodium Random [facility] 02/18 18:11 Order name: Osmolality, Serum [facility] 02/18 18:11 Order name: Urine Osmolality [facility] 02/18 18:13 Order name: ETOH Level [facility] 02/18 18:13 Order name: Tylenol Level [facility] 02/18 18:32 Order name: SARS RAPID 02/18 18:58 Order name: Urine Culture [facility] 02/18 20:39 Order name: Lactate Sepsis 2 HR Follow-up [facility] 02/18 16:59 Order name: XRAY Chest (1 view) [facility] 02/18 18:10 Order name: CT Chest Abdomen Pelvis W/O Contrast [facility] 02/18 16:59 Order name: EKG; Complete Time: 17:00 [facility] 02/18 16:59 Order name: Cardiac monitoring; Complete Time: 17:25 [facility] 02/18 16:59 Order name: EKG - Nurse/Tech; Complete Time: 17:25 [facility] 02/18 16:59 Order name: IV Saline Lock; Complete Time: 17:25 [facility] 02/18 16:59 Order name: Labs collected and sent; Complete Time: 17:25 [facility] 02/18 16:59 Order name: O2 Per Protocol; Complete Time: 17:25 [facility] 02/18 16:59 Order name: O2 Sat Monitoring; Complete Time: 17:25 [facility] 02/18 16:59 Order name: IV Saline Lock - Large Bore; Complete Time: 17:01 [facility] 02/18 18:10 Order name: Central Line Kit; Complete Time: 18:55 [facility] 02/18 18:12 Order name: [place]; Complete Time: 18:29 [facility] EC:08 Rate is 87 beats/min. Rhythm is regular. QRS [place] is Normal. [place] interval is normal. QRS sharon interval is normal. QT interval is normal. No Q waves. T waves are Normal. No ST changes noted. Clinical impression: NSR w/ Non-specific ST/T Changes and No evidence of ischemia. Interpreted by me. Reviewed by me. Administered Medications: 17:15 Drug: NS 0.9% IV 1000 ml IV at 1 bolus Per protocol; 1000 mL bolus Route: IV; Rate: 1 hb bolus; Site: left antecubital; 18:08 Follow up: IV Status: Completed infusion; IV Intake: 1000ml me1 18:39 Follow up: Response: No adverse reaction; IV Status: Completed infusion; IV Intake: ph 1000ml 17:20 Drug: Pantoprazole IVP 40 mg IVP once Route: IVP; Site: left antecubital; ph 18:39 Follow up: Response: No adverse reaction ph 18:00 Drug: Meropenem IV 1 grams IV at per protocol once; (mix in NS 100 mL) Route: IV; Rate: me1 per protocol; Site: right antecubital; 18:40 Follow up: Response: No adverse reaction; IV Status: Completed infusion ph 18:08 Drug: NS 0.9% IV 1000 ml IV at 1 bolus Per protocol; 1000 mL bolus Route: IV; Rate: 1 me1 bolus; Site: left antecubital; 18:40 Follow up: Response: No adverse reaction; IV Status: Completed infusion; IV Intake: ph 1000ml 18:28 Drug: Phytonadione Sub-Q 10 mg Sub-Q once Route: Sub-Q; Site: left upper arm; ph 18:40 Follow up: Response: No adverse reaction ph 18:39 Drug: Banana Bag - (Multivitamin IV 1 amp, NS 0.9% IV 1000 ml, Thiamine IV 100 mg, ph foLIC Acid IVPB 1 mg) IV at 125 ml/hr once Route: IV; Rate: 125 ml/hr; Site: right antecubital; 19:23 Drug: NS 0.9% IV 500 ml IV at bolus once Route: IV; Rate: bolus; Site: right jb4 antecubital; 20:06 Not Given (Physician Discretion): ns 0.9% 1000 ml IV at 125 ml/hr continuous jb4 20:08 Drug: NS 0.9% IV 500 ml IV at bolus bolus Route: IV; Rate: bolus; Site: right jb4 antecubital; 22:05 Drug: NS 0.9% IV 500 ml IV at bolus once Route: IV; Rate: bolus; Site: right jb4 antecubital; Disposition Summary: 02/18/23 19:16 Transfer Ordered Notes: Transfer Location: [facility] sharon Reason: Higher level of care sharon Condition: Serious sharon Problem: new sharon Symptoms: have improved sharon Accepting Physician: DR DENNISON(02/18/23 22:53) jb4 Diagnosis - Alcoholic cirrhosis of liver with ascites sharon - Hypo-osmolality and hyponatremia sharon - Severe sepsis with septic shock sharon - Acute kidney failure, unspecified sharon - Abdominal pain, Generalized sharon - Retention of urine, unspecified - PVR 480 sharon - Hypotension, unspecified - RESOLVED sharon - Hypocalcemia sharon Forms: - Medication Reconciliation Form sharon - SBAR form sharon Critical care time excluding procedures: 19:16 Critical care time: Bedside Care: 35 minutes, Consultation: 15 minutes, Family sharon Intervention: 15 minutes. Total time: 65 minutes Signatures: Dispatcher [employer] Dewayne Levine MD MD cha Hall, Patricia, RN RN Katelyn Morales RN RN Tres Juan RN RN jb4 Rebeca Adhikari, RN RN ld1 Shahnaz Arcos, RN RN me1 Corrections: (The following items were deleted from the chart) 18:56 18:12 Osmolality, Urine ordered. EDMS EDMS 22:53 19:16 DR JESI herrera jb4
--- NOTE | 2023-02-18 19:17 | ER ---
Nurse's Notes [facility] Name: Beny Alvarez Age: 57 yrs Sex: Male : 1965 Arrival Date: 02/18/2023 Time: 16:26 Bed 2 Private MD: Diagnosis: Alcoholic cirrhosis of liver with ascites;Hypo-osmolality and hyponatremia;Severe sepsis with septic shock;Acute kidney failure, unspecified;Abdominal pain, Generalized;Retention of urine, unspecified-PVR 480;Hypotension, unspecified-RESOLVED;Hypocalcemia Presentation: 02/18 16:47 Chief complaint: Patient states: Low blood pressure, N/V, seeing spots, neck pain X 2 ld1 hours. Coronavirus screen: At this time, the client does not indicate any symptoms associated with coronavirus-19. Ebola Screen: No symptoms or risks identified at this time. Risk Assessment: Do you want to hurt yourself or someone else? Patient reports no desire to harm self or others. Onset of symptoms was February 18, 2023 at 16:48. 16:47 Method Of Arrival: Wheelchair ld1 16:47 Acuity: KALEY 2 ld1 18:30 Initial Sepsis Screen: Does the patient meet any 2 criteria? No. Patient's initial ph sepsis screen is negative. Does the patient have a suspected source of infection? No. Patient's initial sepsis screen is negative. Triage Assessment: 16:47 General: Appears in no apparent distress. uncomfortable, Behavior is cooperative. Pain: ld1 Complains of pain in face and scalp Pain does not radiate. Pain currently is 8 out of 10 on a pain scale. Quality of pain is described as sharp, shooting, throbbing, Pain began 2 hours ago. Is continuous. EENT: No signs and/or symptoms were reported regarding the EENT system. Neuro: Level of Consciousness is awake, alert, obeys commands, Oriented to person, place, time, situation. Cardiovascular: Capillary refill < 3 seconds Patient's skin is warm and dry. Respiratory: Airway is patent Respiratory effort is even, unlabored. GI: Abdomen is round non-distended, Reports nausea, vomiting. : No signs and/or symptoms were reported regarding the genitourinary system. Derm: Skin is pale. Musculoskeletal: No signs and/or symptoms reported regarding the musculoskeletal system. Historical: - Allergies: 16:45 NSAIDS; ld1 - PMHx: 16:45 acid reflux; Hypertensive disorder; tremors; Cirrhosis of liver; CHF; ld1 - PSHx: 16:45 Cholecystectomy; ld1 - Immunization history:: Adult Immunizations up to date. - Social history:: Smoking status: Patient denies any tobacco usage or history of. Patient/guardian denies using alcohol, but has a distant history of alcohol abuse. Screenin:29 [facility] ED Fall Risk Assessment (Adult) History of falling in the last 3 months, ph including since admission No falls in past 3 months (0 pts) Confusion or Disorientation No (0 pts) Intoxicated or Sedated No (0 pts) Impaired Gait Yes (1 pt) Mobility Assist Device Used No (0 pt) Altered Elimination No (0 pt) Score/Fall Risk Level 0 - 2 = Low Risk Oriented to surroundings, Maintained a safe environment, Provided non-skid footwear, Hourly rounding (assess needs \T\ fall precautionary measures) done. Abuse screen: Denies threats or abuse. Denies injuries from another. Nutritional screening: No deficits noted. Tuberculosis screening: No symptoms or risk factors identified. Assessment: 18:20 Reassessment: Watch, bracelet, and several rings removed by and put in patient hb belonging bag to take home. Dr. Higgins at bedside for CVC placement. Awaiting acceptance at higher level of care at this time. 19:05 Reassessment: Patient appears in no apparent distress at this time. Patient and/or jb4 family updated on plan of care and expected duration. Pain level reassessed. Patient is alert, oriented x 3, equal unlabored respirations, skin warm/dry/pink. Pt denies any questions, concerns, or needs at this time. 20:00 Reassessment: Patient appears in no apparent distress at this time. Patient and/or jb4 family updated on plan of care and expected duration. Pain level reassessed. Patient is alert, oriented x 3, equal unlabored respirations, skin warm/dry/pink. 20:10 Reassessment: attempted to call report multiple times. No answer. jb4 20:44 Reassessment: Patient appears in no apparent distress at this time. Patient and/or jb4 family updated on plan of care and expected duration. Pain level reassessed. Patient is alert, oriented x 3, equal unlabored respirations, skin warm/dry/pink. 21:45 Reassessment: Patient appears in no apparent distress at this time. Patient and/or jb4 family updated on plan of care and expected duration. Pain level reassessed. Patient is alert, oriented x 3, equal unlabored respirations, skin warm/dry/pink. 22:52 Reassessment: Patient appears in no apparent distress at this time. Patient and/or jb4 family updated on plan of care and expected duration. Pain level reassessed. Patient is alert, oriented x 3, equal unlabored respirations, skin warm/dry/pink. PT transferred to receiving facility via [facility]. Vital Signs: 16:47 BP 66 / 45; Pulse 92; Resp 18; Temp 98.4(O); Pulse Ox 96% on R/A; Weight 86.64 kg; ld1 Height 5 ft. 9 in. ; Pain 8/10; 17:01 BP 69 / 44; Pulse 88; Pulse Ox 91% on R/A; ph 17:30 BP 84 / 52; Pulse 87; Resp 14; Pulse Ox 96% on R/A; hb 18:15 BP 104 / 72; Pulse 82; Resp 15; Pulse Ox 97% on R/A; hb 18:31 BP 109 / 72; Pulse 89; Resp 16; Pulse Ox 97% on R/A; ph 19:30 BP 99 / 64; Pulse 88; Resp 12; Pulse Ox 97% ; jb4 20:14 BP 94 / 65; Pulse 88; Resp 16; Pulse Ox 98% on R/A; jb4 20:44 BP 92 / 59; Pulse 89; Resp 15; Pulse Ox 95% on R/A; jb4 21:15 BP 95 / 66; Pulse 89; Resp 16; Pulse Ox 96% on R/A; jb4 21:45 BP 83 / 53; Pulse 87; Resp 14; Pulse Ox 96% on R/A; jb4 22:15 BP 94 / 63; Pulse 78; Resp 16; Pulse Ox 98% on R/A; jb4 16:47 Body Mass Index 28.21 (86.64 kg, 175.26 cm) ld1 16:47 Pain Scale: Adult ld1 ED Course: 16:31 Patient arrived in ED. ts1 16:47 Arm band placed on right wrist. ld1 16:48 Triage completed. ld1 16:56 Dewayne Higgins MD is Attending Physician. sharon 17:00 Komal Best, RN is Primary Nurse. ph 17:00 Inserted saline lock: 20 gauge in left antecubital area, using aseptic technique. ph 17:05 Inserted saline lock: 20 gauge in right antecubital area, using aseptic technique. hb Blood collected. 18:21 XRAY Chest (1 view) In Process Unspecified. EDMS 18:24 attempted several times to [facility] when connected told they eb were a on a Transfer Hold currently and will not be taking any transfers at this time/ provider notified. 18:30 Patient has correct armband on for positive identification. Bed in low position. Call ph light in reach. Side rails up X2. Client placed on continuous cardiac and pulse oximetry monitoring. NIBP monitoring applied. Door closed. Noise minimized. 18:30 initiated a transfer with Chi Turner Rn from the [facility]/. eb 18:32 Patient transferred, IV remains in place. ph 18:40 transfer initiated with Jamal Vaca from the [facility] transfer center. eb 18:[address] Rowell the repossession agent computer education professor or [facility] with Dr. Higgins eb for patient transfer consultation. 18:53 Tylenol Level Sent. me1 18:54 ETOH Level Sent. me1 18:56 Osmolality, Serum Sent. me1 18:56 Urine Sodium Random Sent. me1 18:59 CT Chest Abdomen Pelvis W/O Contrast In Process Unspecified. EDMS 19:00 Pt accepted for transfer to [facility] Rm: [id number] Zion Vila. wm 20:00 EMS doesn't have a truck available till 2200 per EB. wm 20:01 [facility] accepted for transport, ETA \T\ 2200. wm 22:39 Primary Nurse role handed off by Komal Best, KAYLA wm 22:52 No provider procedures requiring assistance completed. jb4 Administered Medications: 17:15 Drug: NS 0.9% IV 1000 ml IV at 1 bolus Per protocol; 1000 mL bolus Route: IV; Rate: 1 hb bolus; Site: left antecubital; 18:08 Follow up: IV Status: Completed infusion; IV Intake: 1000ml me1 18:39 Follow up: Response: No adverse reaction; IV Status: Completed infusion; IV Intake: ph 1000ml 17:20 Drug: Pantoprazole IVP 40 mg IVP once Route: IVP; Site: left antecubital; ph 18:39 Follow up: Response: No adverse reaction ph 18:00 Drug: Meropenem IV 1 grams IV at per protocol once; (mix in NS 100 mL) Route: IV; Rate: me1 per protocol; Site: right antecubital; 18:40 Follow up: Response: No adverse reaction; IV Status: Completed infusion ph 18:08 Drug: NS 0.9% IV 1000 ml IV at 1 bolus Per protocol; 1000 mL bolus Route: IV; Rate: 1 me1 bolus; Site: left antecubital; 18:40 Follow up: Response: No adverse reaction; IV Status: Completed infusion; IV Intake: ph 1000ml 18:28 Drug: Phytonadione Sub-Q 10 mg Sub-Q once Route: Sub-Q; Site: left upper arm; ph 18:40 Follow up: Response: No adverse reaction ph 18:39 Drug: Banana Bag - (Multivitamin IV 1 amp, NS 0.9% IV 1000 ml, Thiamine IV 100 mg, ph foLIC Acid IVPB 1 mg) IV at 125 ml/hr once Route: IV; Rate: 125 ml/hr; Site: right antecubital; 19:23 Drug: NS 0.9% IV 500 ml IV at bolus once Route: IV; Rate: bolus; Site: right jb4 antecubital; 20:06 Not Given (Physician Discretion): ns 0.9% 1000 ml IV at 125 ml/hr continuous jb4 20:08 Drug: NS 0.9% IV 500 ml IV at bolus bolus Route: IV; Rate: bolus; Site: right jb4 antecubital; 22:05 Drug: NS 0.9% IV 500 ml IV at bolus once Route: IV; Rate: bolus; Site: right jb4 antecubital; Medication: 18:30 VIS not applicable for this client. ph Intake: 18:08 IV: 1000ml; Total: 1000ml. me1 18:39 IV: 1000ml; Total: 2000ml. ph 18:40 IV: 1000ml; Total: 3000ml. ph Outcome: 19:16 ER care complete, transfer ordered by MD. herrera 22:52 Transferred by ground EMS to [facility], Transfer form jb4 completed. X-rays sent w/ patient. 22:52 Condition: stable 22:52 Discharge instructions given to patient, family, Instructed on the need for transfer, Demonstrated understanding of instructions, 22:53 Patient left the ED. jb4 Signatures: Dispatcher [employer] EDDewayne Machuca MD MD cha Hall, Patricia, RN RN Katelyn Morales, RN RN Tres Au RN RN jb4 Alexa Terrell Lauren, RN RN 1 Autumn Rodgers Daisy Handley PAS PAS ts1 Shahnaz Arcos RN RN de1 Corrections: (The following items were deleted from the chart) 18:51 18:44 connected the repossession agent computer education professor or [facility] with Dr. Higgins for eb patient transfer consultation eb 18:56 18:54 Osmolality, Urine drawn and sent. [address] 20:42 20:40 Pt accepted for transfer to [facility] Rm: [id number] Zion Vila [facility]
[2023-02-18] MEDS ORDERED: NA CHLORIDE 0.9% 500 ML ONE ×3 (19:30→22:07)
--- NOTE | 2023-02-18 19:31 | RAD REPORT ---
EXAM DESCRIPTION: CT - Chest Abd Pelvis Wo Con - 02/18/2023 6:57 pm CLINICAL HISTORY: Cough, congestion, abdominal pain and distention COMPARISON: September 2022 TECHNIQUE: Computed axial tomography of the chest, abdomen and pelvis was obtained. Oral contrast wa s given. IV contrast was not requested. All CT scans are performed using dose optimization technique as appropriate and may include automated exposure control or mA/KV adjustment according to patient size. FINDINGS: The evaluation of mediastinum, armand, vessels and solid organs is limited secondary to the lack of IV contrast administration Areas of subsegmental atelectasis the right lung base. Subacute right rib fractures affixed by sidep late and screws No mediastinal or hilar lymphadenopathy is seen. A pleural effusion is not present. A pericardial effusion is not seen. Hepatomegaly. Cirrhosis Cholecystectomy The spleen, adrenals, pancreas and kidneys grossly normal There is no evidence of diverticulitis. A Villeda catheter within the bladder Small amount of ascites within the pelvis IMPRESSION: Hepatomegaly and cirrhosis Small amount of ascites
--- NOTE | 2023-02-18 19:32 | RAD REPORT ---
[facility]19 pm CLINICAL HISTORY: cough COMPARISON: January 24, 2023 FINDINGS: Mild right lower lobe atelectasis. Left lung appears clear of acute infiltrate. The heart is normal size. Subacute rib fractures
[2023-02-18 19:39] LABS: SARS-CoV-2 Antigen Rapid Res Negative (Negative)
[2023-02-18 23:22] VITALS: TEMP 98.4
[2023-02-18 23:33] VITALS: BP 94/63; O2SAT 98
--- NOTE | 2023-02-22 08:02 | EKG ---
Test Date: 2023-02-18 Test Time: 17:03:47 Dog Breeder: Jerrod PADRON MEASUREMENT RESULTS: Intervals: Rate: 87 LA: 208 QRSD: 106 QT: 372 QTc: 447 Sherman: P: 29 LA: 208 QRS: -83 T: 2 INTERPRETIVE STATEMENTS: Normal sinus rhythm Left axis deviation Abnormal ECG Compared to ECG 01/24/2023 12:15:17 Left-axis deviation now present Left anterior fascicular block no longer present Myocardial infarct finding no longer present T-wave abnormality no longer present Possible ischemia no longer present Electronically Signed On 02-22-23 07:54:35 CDT by Rick Rodriguez
== END 2023-02-18 22:53 | disposition short-term general hospital (02) ==
LOC: ER 16:26
DX: K70.31 Alcoholic cirrhosis of liver with ascites (principal); A41.9 Sepsis, unspecified organism; R65.21 Severe sepsis with septic shock; K72.00 Acute and subacute hepatic failure without coma; E87.1 Hypo-osmolality and hyponatremia; E83.51 Hypocalcemia; R33.9 Retention of urine, unspecified; I10 Essential (primary) hypertension; I50.9 Heart failure, unspecified; Z11.52 Encounter for screening for COVID-19; Z88.6 Allergy status to analgesic agent
CPT/HCPCS: 93005; 87040 ×2; 87088; 85025; 81001; 87086; 80048; 36415; 82140; 86900; 83735; 86850; 85610; 84300; 86901; 80076; 83605 ×2; 84484; 83690; 83880; 83930; 83935; 71250; 74176; 71045; 96372; 99285; 80143; 82077; 87811; J7040 ×3; J7030; J3411

== ENCOUNTER 2023-09-27 01:05 | Emergency (ER) | payer OTHER ==
--- OUTSIDE RECORDS SUMMARY | 2023-09-27 01:14 | XMS REPORT | Continuity of Care Document ---
Author Name Unknown Address [address] [facility] [address] [place] [address] [facility] Address [address] [facility] [address] [place] [address] Care Team Providers Care Analytic Programmer Name Role Phone BridgergenovevaJanell miller Primary Care Physician [phone] BRENDEN HICKEY Attending Clinician Unavailabl Brenden Bonilla MD Attending Clinician [phone] Davon Mcbride MD Attending Clinician [phone] DAVON MCBRIDE Attending Clinician Unavailable Doctor Unassigned, [place] Attending Clinician U saleem Joy RN, Cielo Elder Attending Clinician Unavail able ARPIT RUST Attending Clinician Unavailab Zion Montoya DO Attending Clinician [phone] Tony Quiroz MD Attending Clinician + [phone] Alan Ballard DO Attending Clinician [phone] Lisa Turner MD Attending Clinician + [phone] Arpit Rust MD Attending Clinician [phone] Tj MURRAY, [place] Attending Clinician + [phone] Zeynep Orozco MD Attending Clinician [phone] RADIOLOGY Attending Clinician Unavailable Radiology Attending Clinician Unavailable ABBI ALICIA Attending Clinician Unavailable ALAN BALLARD Admitting Clinician Unavailable Alan Ballard DO Admitting Clinician JANELL ORTEGA Admitting Clinician Unavailable Payers Payer Name Policy Type Policy Number Effective Date Expirati on Date Source [facility] [id number] 2010 00:00:00 [facility] [id number] 2010 00:00:00 Problems Condition Name Condition Details Condition Category Status Onset Date Resolution Date Last Treatment Date Treating Clinician Comments Source Cardiomyop athy, unspecifie d type Cardiomyop athy, unspecifie d type Disease Active 07-12 00:00: 00 [facility] Other forms of dyspnea Other forms of dyspnea Disease Active 07-12 00:00: 00 [facility] Chest pain, unspecifie d type Chest pain, unspecifie d type Disease Active 07-12 00:00: 00 [facility] Hypotensio n Hypotensio n Disease Active 2022-04 00:00: 00 [facility] Alcoholic cirrhosis of liver with ascites Alcoholic cirrhosis of liver with ascites Disease Recurre nce 2022-04 00:00: 00 [facility] Allergies, Adverse Reactions, Alerts Allergy Name Allergy Type Status Severity Reaction(s) Onset Date Inactive Date Treating Clinician Comments Source NSAIDS (NON-GERMÁN ROIDAL ANTI-INF LAMMATOR Y DRUG) Drug Class Active Unknown-Cmnt 2022-04 00:00: 00 [facility] Nsaids (Non-[place]án roidal Anti-Inf lammator y Drug) Propensi ty to adverse reaction s Active Unknown - See comments 2022-04 00:00: 00 [facility] NO KNOWN ALLERGIE S Drug Class Active [facility] Family History Family Member Diagnosis Comments Start Date Stop Date Sourc e [facility] Social History Social Habit Start Date Stop Date Quantity Comments Source History of tobacco use Passive smoker [facility] Gender identity [facility] intake 2023-07-13 00:00:00 2023-07-13 00:00:00 1 /d [facility] Alcoholic beverage intake 2023-07-13 00:00:00 2023-07-13 00:00:00 1 /d [facility] Tobacco use and exposure 2023-03-03 00:00:00 2023-03-03 00:00:00 Smokeless tobacco non-user [facility] History of Social function 2023-02-22 00:00:00 2023-02-22 00:00:00 [facility] Sex assigned at 1965 00:00:00 1965 00:00:00 [facility] Smoking Status Start Date Stop Date Source Tobacco smoking consumption unknown [facility] Ex-smoker 2023-03-03 00:00:00 2023-03-03 00:00:00 [facility] Medications Ordered Medication Name Filled Medication Name Start Date Stop Date Current Medication? Ordering Clinician Indication Dosage Frequency Signature (SIG) Comments Components Source perflutren protein-A microsphr (OPTISON) injection 3 mL 08-29 17:45: 00 08-29 17:43 :00 No [id number] 3mL 3 mL, IV Push, ONCE, 1 dose, On Tue08/30/23 at 1245, Routine [facility] tc 99m-tetrofo smin (MYOVIEW) injection 41.8 millicurie 08-29 14:00: 00 08-29 13:55 :00 No [id number] 41.8mCi 41.8 millicurie , Intravenou s, ONCE, 1 dose, On Tue08/30/23 at 0900, Routine [facility] regadenoson (LEXISCAN) injection 0.4 mg 08-29 14:00: 00 08-29 14:04 :00 No [id number] .4mg 0.4 mg, IV Push, ONCE, 1 dose, On Tue08/30/23 at 0900, Routine, 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 approving Restricted medication : DAVON MCBRIDE [facility] tc 99m-tetrofo smin (MYOVIEW) injection 15.8 millicurie 08-29 13:00: 00 08-29 12:56 :00 No [id number] 15.8mCi 15.8 millicurie , Intravenou s, ONCE, 1 dose, On Tue08/30/23 at 0800, Routine [facility] NaCl 0.9% (NS) injection 5 mL 2022-04 15:30: 00 03-10 18:22 :00 No 5mL 5 mL, Slow IV Push, ONCE, 1 dose, On Tue03/10/23 at 0930, Routine [facility] heparin 1,000 unit/mL (10 mL) - dialysis catheter care 2022-04 15:16: 28 Yes 2000U PRN - SEE INSTRUCTIO NS, Starting on Tue03/10/23 at 0916, Until Discontinu ed, Routine
For Priming of Ports:&nbs p; &n bsp; After initial saline flush, prime each port with heparin according to the priming volume listed on each catheter port for catheter lock.
[facility] Cholecalcif jeannie, Vitamin D3, 50 mcg (2,000 unit) capsule 2022-04 15:01: 52 Yes Take by mouth. [facility] cyanocobala min, vitamin B-12, 2,000 mcg Tab 2022-04 15:01: 52 Yes Take by mouth. [facility] DULoxetine 60 mg capsule 2022-04 15:01: 52 Yes 60mg Take 1 capsule by mouth in the morning. [facility] empaglifloz in 10 mg 2022-04 15:01: 52 Yes 10mg Take 1 tablet by mouth in the morning. [facility] furosemide (LASIX) 40 mg tablet 2022-04 15:01: 52 Yes 40mg Take 1 tablet by mouth in the morning. [facility] losartan 25 mg tablet 2022-04 15:01: 52 Yes 25mg Take 1 tablet by mouth in the morning. [facility] mirtazapine 15 mg tablet 2022-04 15:01: 52 Yes 15mg Take 1 tablet by mouth at bedtime. [facility] Pantoprazol e 40 mg delayed-rel ease suspension 2022-04 15:01: 52 Yes 40mg Take 40 mg by mouth in the morning. [facility] rosuvastati n 40 mg tablet 2022-04 15:01: 52 Yes 40mg Take 1 tablet by mouth at bedtime. [facility] spironolact one (ALDACTONE) 25 mg tablet 2022-04 15:01: 52 Yes 25mg Take 1 tablet by mouth in the morning. [facility] thiamine 100 mg tablet 2022-04 15:01: 52 Yes 100mg Take 1 tablet by mouth in the morning. [facility] metoprolol succinate XL 50 mg 24 hr tablet 2022-04 13:24: 06 03-10 00:00 :00 No 50mg Take 1 tablet by mouth in the morning. [facility] folic acid 0.8 mg Cap 2022-04 11:33: 32 03-10 00:00 :00 No Take by mouth. [facility] methocarbam oL 750 mg tablet 2022-04 00:00: 00 Yes [id number] 750mg Take 1 tablet by mouth 2 (two) times daily as needed for Pain (scale 1-3). [facility] propranoloL 20 mg tablet 2022-04 00:00: 00 Yes [id number] 20mg Take 1 tablet by mouth in the morning and 1 tablet in the evening. [facility] traZODone 50 mg tablet 2022-04 00:00: 00 Yes [id number] 50mg Take 1 tablet by mouth at bedtime. [facility] ipratropium -albuteroL 0.5 mg-3 mg(2.5 mg base)/3 mL nebulizer solution 2022-04 00:00: 00 Yes [id number] 3mL Inhale 3 mL 4 (four) times daily. [facility] lactulose 10 gram/15 mL solution 2022-04 00:00: 00 Yes [id number] 30mL Take 30 mL by mouth in the morning and 30 mL in the evening. [facility] nystatin 100,000 unit/gram ointment 2022-04 00:00: 00 Yes [id number] Apply to area(s) 2 (two) times daily. [facility] rifAXIMin 550 mg tablet 2022-04 00:00: 00 Yes [id number] 550mg Take 1 tablet by mouth in the morning and 1 tablet in the evening. [facility] foLIC acid 1 mg tablet 2022-04 00:00: 00 Yes [id number] 1mg Take 1 tablet by mouth in the morning. [facility] pregabalin (LYRICA) capsule 25 mg 2022-04 15:00: 00 Yes 25mg 25 mg, Oral, DAILY, First dose (after last modificati on) on Tue03/09/23 at 0900, Until Discontinu ed, Routine [facility] acetaminoph en (TYLENOL) tablet 650 mg 2022-04 14:35: 40 Yes 650mg 650 mg, Oral, Q6HPRN, Starting on Tue03/09/23 at 0835, Until Discontinu ed, Routine, Pain (scale 1-3) [facility] mirtazapine (REMERON) tablet 15 mg 2022-04 03:00: 00 Yes 15mg 15 mg, Oral, QHS, First dose on Tue03/08/23 at 2100, Until Discontinu ed, Routine [facility] hydrOXYzine (ATARAX) tablet 10 mg 2022-04 14:46: 24 Yes 10mg 10 mg, Oral, Q6HPRN, Starting on Tue03/08/23 at 0846, Until Discontinu ed, Routine, Itching, Anxiety, insomnia [facility] NaCl 0.9% (NS) injection 5 mL 2022-04 13:00: 00 03-08 13:00 :00 No 5mL 5 mL, Slow IV Push, ONCE, 1 dose, On Tue03/08/23 at 0700, Routine [facility] heparin 1,000 unit/mL (10 mL) - dialysis catheter care 2022-04 12:52: 50 Yes 2000U PRN - SEE JUNIE DALEY, Starting on Tue03/08/23 at 0652, Until Discontinu ed, Routine
For Priming of Ports:&nbs p; &n bsp; After initial saline flush, prime each port with heparin according to the priming volume listed on each catheter port for catheter lock.
[facility] methocarbam oL (ROBAXIN) tablet 750 mg 2022-04 03:36: 54 Yes 750mg 750 mg, Oral, BIDPRN, Starting on Tue03/07/23 at 2136, Until Discontinu ed, Routine, Muscle Spasms [facility] HYDROcodone -acetaminop hen (NORCO 5) 5-325 mg tablet 1 tablet 2022-04 03:32: 15 Yes 1{tbl} 1 tablet, Oral, Q6HPRN, Starting on Tue03/07/23 at 2132, Until Discontinu ed, Routine, Pain (scale 7-10) [facility] traZODone (DESYREL) tablet 50 mg 2022-04 03:00: 00 Yes 50mg 50 mg, Oral, QHS, First dose on Tue03/07/23 at 2100, Until Discontinu ed, Routine [facility] heparin (porcine) injection 5,000 Units 2022-04 02:00: 00 Yes 5000U 5,000 Units, Subcutaneo us, Q12H, First dose on Tue03/07/23 at 2000, Until Discontinu ed, Routine [facility] ipratropium -albuteroL (DUONEB) 0.5 mg-3 mg(2.5 mg base)/3 mL nebulizer solution 3 mL 2022-04 15:00: 00 Yes 3mL 3 mL, Inhalation , QID, First dose (after last modificati on) on Tue03/07/23 at 0900, Until Discontinu ed, [facility] ([facility] tablet 1 mg 2022-04 15:00: 00 Yes 1mg 1 mg, Oral, DAILY, First dose on 03/06/23 at 0900, Until Discontinu ed, Routine [facility] pantoprazol e (PROTONIX) EC tablet 40 mg 2022-04 15:00: 00 Yes 40mg 40 mg, Oral, DAILY, First dose on 03/06/23 at 0900, Until Discontinu ed, Routine [facility] thiamine (VITAMIN B1) tablet 100 mg 2022-04 15:00: 00 Yes 100mg 100 mg, Oral, DAILY, First dose on 03/06/23 at 0900, Until Discontinu ed, Routine [facility] lactulose (CEPHULAC) solution 30 mL 2022-04 14:00: 00 Yes 30mL 30 mL, Oral, BID, First dose (after last modificati on) on 03/06/23 at 0800, Until Discontinu ed, Routine [facility] rosuvastati n (CRESTOR) tablet 10 mg 2022-04 03:00: 00 Yes 10mg 10 mg, Oral, QHS, First dose (after last modificati on) on 03/05/23 at 2100, Until Discontinu ed, Routine [facility] melatonin (MELATIN) tablet 6 mg 2022-04 03:00: 00 03-08 16:57 :30 No 6mg 6 mg, Oral, QHS, First dose (after last modificati on) on 03/05/23 at 2100, Until Discontinu ed, Routine [facility] rifAXIMin (XIFAXAN) tablet 550 mg 2022-04 02:00: 00 Yes 550mg 550 mg, Oral, BID, First dose on 03/05/23 at 2000, Until Discontinu ed, Routine
Reason for Anti-Infec tive: Empiric Non-Surgic al Prophylaxi s
Durat ion of therapy: 5 days
Sp ecific indication : HE [facility] propranoloL (INDERAL) tablet 20 mg 2022-04 02:00: 00 Yes 20mg 20 mg, Oral, BID, First dose on 03/05/23 at 2000, Until Discontinu ed, Routine [facility] lactulose (CEPHULAC) solution 30 mL 2022-04 02:00: 00 03-06 13:29 :57 No 30mL 30 mL, Enteral, BID, First dose (after last modificati on) on 03/05/23 at 2000, Until Discontinu ed, Routine [facility] heparin 1,000 unit/mL (10 mL) - dialysis catheter care 2022-04 20:02: 57 03-06 13:29 :57 No 2000U PRN - SEE INSTRUCTIO NS, Starting on 03/05/23 at 1402, Until 03/06/23 at 0729, Routine
For Priming of Ports:&nbs p; &n bsp; After initial saline flush, prime each port with heparin according to the priming volume listed on each catheter port for catheter lock.
[facility] melatonin (MELATIN) tablet 6 mg 2022-04 03:00: 00 03-05 15:10 :20 No 6mg 6 mg, Oral, QHS, First dose (after last modificati on) on Tue03/04/23 at 2100, Until Discontinu ed, Routine [facility] acetaminoph en (TYLENOL) 160 mg/5 mL oral liquid 650 mg 2022-04 21:12: 26 03-09 14:36 :27 No 650mg 650 mg, Oral, Q6HPRN, Starting on Tue03/04/23 at 1512, Until Tue03/09/23 at 0836, Routine, Pain (scale 4-6), Temp > 38.5 C [facility] iopamidol (ISOVUE 370-500 mL) injection 80 mL 2022-04 19:02: 00 03-04 19:02 :00 No [id number] 80mL 80 mL, Intravenou s, ONCE, 1 dose, On Tue03/04/23 at 1315, Routine [facility] KCL (KLOR-CON M20) tablet 20 mEq 2023-1 1-10 17:45: 00 03-04 18:11 :00 No 20meq 20 mEq, Oral, ONCE, 1 dose, On Tue03/04/23 at 1145, Routine [facility] folic acid (FOLATE) 1 mg/mL oral solution 1 mg 2022-04 15:00: 00 03-05 15:10 :20 No 1mg 1 mg, Enteral, DAILY, First dose on Tue03/04/23 at 0900, Until Discontinu ed, Routine [facility] hydrOXYzine (ATARAX) tablet 10 mg 2022-04 13:10: 48 03-08 14:46 :34 No 10mg 10 mg, Oral, Q6HPRN, Starting on Tue03/04/23 at 0710, Until Tue03/08/23 at 0846, Routine, Itching, insomnia [facility] rosuvastati n (CRESTOR) tablet 10 mg 2022-04 03:00: 00 03-05 15:10 :20 No 10mg 10 mg, Oral, QHS, First dose (after last modificati on) on Tue03/03/23 at 2100, Until Discontinu ed, Routine [facility] melatonin (MELATIN) tablet 3 mg 2022-04 03:00: 00 03-04 13:11 :40 No 3mg 3 mg, Oral, QHS, First dose (after last modificati on) on Tue03/03/23 at 2100, Until Discontinu ed, Routine [facility] propranoloL (INDERAL) 20 mg/5 mL (4 mg/mL) solution 10 mg 2022-04 02:00: 00 03-05 15:10 :20 No 10mg 10 mg, Enteral, BID, First dose (after last modificati on) on Tue03/03/23 at 2000, Until Discontinu ed, Routine [facility] propranoloL (INDERAL) 20 mg/5 mL (4 mg/mL) solution 10 mg 2022-04 15:45: 00 03-03 21:14 :53 No 10mg 10 mg, Oral, BID, First dose on Tue23 at 0945, Until Discontinu ed, Routine [facility] NaCl 0.9% (NS) injection 5 mL 2022-04 15:30: 00 03-03 16:28 :00 No 5mL 5 mL, Slow IV Push, ONCE, 1 dose, On Faustina 03/03/23 at 0930, Routine [facility] heparin 1,000 unit/mL (10 mL) - dialysis catheter care 2022-04 15:27: 18 03-06 13:29 :57 No 2000U PRN - SEE INSTRUCTIO NS, Starting on Faustina 03/03/23 at 0927, Until [place] 03/06/23 at 0729, Routine
For Priming of Ports:&nbs p; &n bsp; After initial saline flush, prime each port with heparin according to the priming volume listed on each catheter port for catheter lock.
[facility] nystatin (MYCOSTATIN ) ointment 2022-04 15:00: 00 Yes Topical, BID, First dose on Faustina 03/03/23 at 0900, Until Discontinu ed, Routine [facility] rifAXIMin (XIFAXAN) 20 mg/mL oral suspension 550 mg 2022-04 02:00: 00 03-05 15:10 :20 No 550mg 550 mg, Enteral, BID, First dose (after last modificati on) on Tue03/02/23 at 1999, Until Discontinu ed, Routine
Reason for Anti-Infec tive: Empiric Non-Surgic al Prophylaxi s
Durat ion of therapy: 5 days [facility] lactulose (CEPHULAC) solution 30 mL 2022-04 02:00: 00 03-05 15:10 :20 No 30mL 30 mL, Enteral, QID, First dose (after last modificati on) on Tue03/02/23 at 2000, Until Discontinu ed, Routine [facility] NaCl 0.9% (NS) injection 5 mL 2022-04 22:00: 00 03-02 23:25 :00 No 5mL 5 mL, Slow IV Push, ONCE, 1 dose, On Tue03/02/23 at 1600, Routine [facility] heparin 1,000 unit/mL (10 mL) - dialysis catheter care 2022-04 21:48: 26 03-03 15:40 :07 No 2000U PRN - SEE INSTRUCTIO NS, Starting on Tue03/02/23 at 1548, Until [place] 03/03/23 at 0940, Routine
For Priming of Ports:&nbs p; &n bsp; After initial saline flush, prime each port with heparin according to the priming volume listed on each catheter port for catheter lock.
[facility] heparin 1,000 unit/mL injection 2022-04 21:00: 18 03-02 21:00 :18 No PRN, Starting on Tue03/02/23 at 1500, Until Tue03/02/23 at 1500, Routine, Intra-op [facility] Cholecalcif jeannie, Vitamin D3, 50 mcg (2,000 unit) capsule 2022-04 20:48: 54 Yes Take by mouth. [facility] cyanocobala min, vitamin B-12, 2,000 mcg Tab 2022-04 20:48: 54 Yes Take by mouth. [facility] DULoxetine 60 mg capsule 2022-04 20:48: 54 Yes 60mg Take 1 capsule by mouth in the morning. [facility] empaglifloz in 10 mg 2022-04 20:48: 54 Yes 10mg Take 1 tablet by mouth in the morning. [facility] folic acid 0.8 mg Cap 2022-04 20:48: 54 Yes Take by mouth. [facility] furosemide (LASIX) 40 mg tablet 2022-04 20:48: 54 Yes 40mg Take 1 tablet by mouth in the morning. [facility] losartan 25 mg tablet 2022-04 20:48: 54 Yes 25mg Take 1 tablet by mouth in the morning. [facility] metoprolol succinate XL 50 mg 24 hr tablet 2022-04 20:48: 54 Yes 50mg Take 1 tablet by mouth in the morning. [facility] mirtazapine 15 mg tablet 2022-04 20:48: 54 Yes 15mg Take 1 tablet by mouth at bedtime. [facility] Pantoprazol e 40 mg delayed-rel ease suspension 2022-04 20:48: 54 Yes 40mg Take 40 mg by mouth in the morning. [facility] rosuvastati n 40 mg tablet 2022-04 20:48: 54 Yes 40mg Take 1 tablet by mouth at bedtime. [facility] spironolact one (ALDACTONE) 25 mg tablet 2022-04 20:48: 54 Yes 25mg Take 1 tablet by mouth in the morning. [facility] thiamine 100 mg tablet 2022-04 20:48: 54 Yes 100mg Take 1 tablet by mouth in the morning. [facility] lidocaine 1% (PF) (XYLOCAINE) injection 2022-04 20:32: 55 03-02 20:32 :55 No PRN, Starting on Tue03/02/23 at 1432, Until Tue03/02/23 at 1432, Routine, Intra-op [facility] FENTanyl PF (SUBLIMAZE (PF)) injection 2022-04 20:32: 42 03-02 20:47 :05 No Slow IV Push, PRN, Starting on Tue03/02/23 at 1432, Until Tue03/02/23 at 1447, Routine, Intra-op [facility] midazolam (VERSED) injection 2022-04 20:32: 23 03-02 20:32 :23 No IV Push, PRN, Starting on Tue03/02/23 at 1432, Until Tue03/02/23 at 1432, Routine, Intra-op [facility] midodrine (PROAMATINE ) tablet 10 mg 2022-04 12:00: 00 03-03 15:39 :09 No 10mg 10 mg, Enteral, Q8H, First dose (after last modificati on) on Tue03/02/23 at 0600, Until Discontinu ed, Routine [facility] midodrine (PROAMATINE ) tablet 15 mg 2022-04 04:00: 00 03-02 09:53 :15 No 15mg 15 mg, Enteral, Q8H, First dose (after last modificati on) on Tue03/01/23 at 2200, Until Discontinu ed, Routine [facility] rifAXIMin (XIFAXAN) 20 mg/mL oral suspension 550 mg 2022-04 02:00: 00 03-03 01:56 :04 No 550mg 550 mg, Oral, BID, First dose on Tue03/01/23 at 2000, Until Discontinu ed, Routine
Reason for Anti-Infec tive: Empiric Non-Surgic al Prophylaxi s
Durat ion of therapy: 5 days [facility] NaCl 0.9% (NS) injection 5 mL 2022-04 21:15: 00 03-01 21:50 :00 No 5mL 5 mL, Slow IV Push, ONCE, 1 dose, On Tue03/01/23 at 1515, Routine [facility] heparin 1,000 unit/mL (10 mL) - dialysis catheter care 2022-04 21:00: 05 03-02 21:50 :21 No 2000U PRN - SEE INSTRUCTIO NS, Starting on Tue03/01/23 at 1500, Until Tue03/02/23 at 1550, Routine
For Priming of Ports:&nbs p; &n bsp; After initial saline flush, prime each port with heparin according to the priming volume listed on each catheter port for catheter lock.
[facility] barium sulfate-NO CHARGE- (VARIBAR NECTOR) 40 % (w/v) oral suspension 30 mL 2022-04 19:30: 00 03-01 19:35 :00 No [id number] 30mL 30 mL, Oral, ONCE, 1 dose, On Tue03/01/23 at 1330, Routine [facility] lactulose (CEPHULAC) solution 30 mL 2022-04 18:00: 00 03-03 01:56 :04 No 30mL 30 mL, Oral, QID, First dose (after last modificati on) on Tue03/01/23 at 1200, Until Discontinu ed, Routine [facility] rifAXIMin (XIFAXAN) tablet 550 mg 2022-04 02:00: 00 03-01 16:26 :10 No 550mg 550 mg, Oral, BID, First dose on Tue02/28/23 at 2000, Until Discontinu ed, Routine
Reason for Anti-Infec tive: Empiric Therapy for Suspected Infection< br>Empiric Therapy Site: Other
O ther site: HE
Dura tion of therapy: 5 days [facility] octreotide (SANDOSTATI N) 500 mcg in NaCl 0.9% (NS) 100 mL infusion 2022-04 17:00: 00 03-01 22:37 :31 No 50ug/h 50 mcg/hr (10 mL/hr), IV Infusion, CONTINUOUS , Starting on Tue02/28/23 at 1100 [facility] ceFEPIme (MAXIPIME) 1,000 mg in NaCl 0.9% (NS) 100 mL MINI-BAG 2022-04 04:00: 00 03-01 13:36 :38 No 1000mg 1,000 mg, IV Piggyback, Q12H ABX, 14 doses, First dose on Tue02/27/23 at 2200, Last dose on Tue03/06/23 at 1000, Administer over 4 Hours, 100 mL
Reas on for Anti-Infec tive: Empiric Therapy for Suspected Infection< br>Empiric Therapy Site: Respirator y
Durat ion of therapy: 5 days [facility] ceFEPIme (MAXIPIME) 2,000 mg in NaCl 0.9% (NS) 100 mL MINI-BAG 2022-04 16:15: 00 02-27 19:48 :00 No 2000mg 2,000 mg, IV Piggyback, ONCE, 1 dose, On 02/27/23 at 1015, Administer over 30 Minutes, 100 mL
Reas on for Anti-Infec tive: Empiric Therapy for Suspected Infection< br>Empiric Therapy Site: Respirator y
Durat ion of therapy: 5 days [facility] sodium phosphate 30 mmol in NaCl 0.9% (NS) 250 mL piggyback 2022-04 14:45: 00 02-27 18:39 :00 No 30mmol 30 mmol, IV Piggyback, ONCE, 1 dose, On 02/27/23 at 0845, Administer over 4 Hours, 250 mL [facility] cefTRIAXone (ROCEPHIN) 1,000 mg in NaCl 0.9% (NS) 100 mL MINI-BAG 2022-04 04:33: 52 02-27 15:19 :21 No 1000mg 1,000 mg, IV Piggyback, Q24H ABX, 7 doses, First dose on 02/26/23 at 2345, Last dose on Tue03/04/23 at 2345, Administer over 30 Minutes, 100 mL
Reas on for Anti-Infec tive: Empiric Therapy for Suspected Infection< br>Empiric Therapy Site: Abdominal< br>Duratio n of therapy: 5 days [facility] acetaminoph en (TYLENOL) tablet 650 mg 2022-04 04:04: 36 03-04 21:12 :18 No 650mg 650 mg, Enteral, Q6HPRN, Starting on 02/26/23 at 2304, Until Tue03/04/23 at 1512, Routine, Temp > 38 C [facility] lanolin alcohol-mo- w.pet-ceres (EUCERIN) cream 2022-04 03:30: 48 Yes Topical, PRN, Starting on 02/26/23 at 2230, Until Discontinu ed, Routine, Dermatitis /Rash, Near genital area [facility] rosuvastati n (CRESTOR) tablet 40 mg 2022-04 02:00: 00 03-03 01:56 :04 No 40mg 40 mg, Oral, QHS, First dose (after last modificati on) on 02/26/23 at 2100, Until Discontinu ed, Routine [facility] artificial tears(hypro mellose) (ISOPTO-TEA RS) 0.5 % ophthalmic drops 1 Drop 2022-04 21:16: 50 Yes 1[drp] 1 Drop, Both Eyes, PRN, Starting on 02/26/23 at 1616, Until Discontinu ed, Routine, Dry eyes [facility] pantoprazol e (PROTONIX) 2 mg/mL oral suspension 40 mg 2022-04 14:00: 00 03-05 15:10 :20 No 40mg 40 mg, Enteral, DAILY, First dose on 02/26/23 at 0900, Until Discontinu ed, Routine [facility] lactulose (CEPHULAC) solution 30 mL 2022-04 13:00: 00 03-01 14:09 :36 No 30mL 30 mL, Enteral, QID, First dose (after last modificati on) on 02/26/23 at 0800, Until Discontinu ed, Routine [facility] dexMEDEtomi dine 400 mcg in 0.9 % NaCl 100 mL (PRECEDEX) RTU IV infusion 2022-04 01:48: 14 03-01 00:26 :48 No .2ug/kg /h 0.2-1.5 mcg/kg/hr ?93.5 kg (4.675-35. 0625 mL/hr, rounded to 4.68-35.06 mL/hr), IV Infusion, TITRATE, Sedation-R ASS score (0 to -1), Starting on Tue02/25/23 at 2047
In itiate infusion at 0.2 mcg/kg/hr and titrate by 0.1 mcg/kg/hr every 30 minutes to goal sedation score. Maximum dose = 1.5 mcg/kg/hr. If goal not maintained at maximum allowed dose, contact prescriber .
[facility] NaCl 0.9% (NS) IV infusion 1,000 mL 2022-04 23:15: 00 02-27 17:23 :24 No 1000mL at 250 mL/hr, CRRT Circuit, CONTINUOUS , Starting on Tue02/25/23 at 1815, Until 02/27/23 at 1123, [facility] 20 mg 2022-04 11:00: 00 03-02 02:32 :00 No 20mg 20 mg, Enteral, Q8H, First dose (after last modificati on) on Tue02/25/23 at 0600, Until Discontinu ed, Routine Univers [facility] NORepinephr ine 4 mg in 0.9% NaCl 250 mL infusion RTU 2022-04 05:29: 02 02-27 17:51 :35 No .05ug/k g/min 0.05-1.5 mcg/kg/min ?87.5 kg (16.4063-4 92.1875 mL/hr, rounded to 16.41-492. 19 mL/hr), IV Infusion, TITRATE, MAP Goal > or = 65 mmHg, Starting on Tue02/25/23 at 0029
In itiate titration at 0.05 mcg/kg/min . &nb sp;Increas e by 0.01 mcg/kg/min every 30 seconds to 5 minutes as needed to reach and maintain goal blood pressure.& nbsp;&nbsp ;Maximum dose = 1.5 mcg/kg/min .&nbsp ; If goal not maintained at maximum allowed dose, contact prescriber .
[facility] albumin (PLASBUMIN) 25 % injection 87.5 g 2022-04 04:45: 00 02-26 01:00 :00 No 1g/kg 87.5 g (1 g/kg ?87.5 kg), IV Infusion, ONCE, 1 dose, On Faustina 02/24/23 at 2345, 400 mL
Cara cation: HEPATORENA L SYNDROME (DIAGNOSIS )
Comme nts: Albumin 1 g/kg/day for 2 days (up to a maximum of 100 g/day) [facility] CRRT fluid dialysate (PRISMASATE 4K) K 4.0-Ca 2.5, Mg 1.5, HCO3 32, NA 140, CL 113, LACTATE 3, DEX 110, Osm 300 2022-04 03:15: 00 02-27 17:23 :24 No 2800mL/ h 2,800 mL/hr, CRRT Circuit, CONTINUOUS , Starting on Tue02/24/23 at 2215, Until Tue02/27/23 at 1123, Routine [facility] midodrine (PROAMATINE ) tablet 10 mg 2022-04 03:00: 00 02-25 04:29 :59 No 10mg 10 mg, Enteral, Q8H, First dose (after last modificati on) on Tue02/24/23 at 2200, Until Discontinu ed, Routine [facility] CRRT fluid dialysate (PRISMASATE 4K) K 4.0-Ca 2.5, Mg 1.5, HCO3 32, NA 140, CL 113, LACTATE 3, DEX 110, Osm 300 2022-04 01:00: 00 02-25 03:00 :40 No 4000mL/ h 4,000 mL/hr, CRRT Circuit, CONTINUOUS , Starting on Tue02/24/23 at 2000, Until Tue02/24/23 at 2200, Routine [facility] NaCl 0.9% (NS) IV infusion 1,000 mL 2022-04 01:00: 00 02-25 23:05 :02 No 1000mL at 200 mL/hr, CRRT Circuit, CONTINUOUS , Starting on Tue02/24/23 at 2000, Until Tue02/25/23 at 1805, Routine [facility] thiamine (VITAMIN B1) tablet 100 mg 2022-04 14:00: 00 03-05 15:10 :20 No 100mg 100 mg, Enteral, DAILY, First dose (after last modificati on) on Tue02/24/23 at 0900, Until Discontinu ed, Routine [facility] foLIC acid (FOLATE) tablet 1 mg 2022-04 14:00: 00 03-03 21:14 :13 No 1mg 1 mg, Enteral, DAILY, First dose (after last modificati on) on Faustina 02/24/23 at 0900, Until Discontinu ed [facility] midodrine (PROAMATINE ) tablet 20 mg 2022-04 19:54: 00 02-24 22:29 :47 No 20mg 20 mg, Enteral, Q8H, First dose (after last modificati on) on Tue02/23/23 at 1500, Until Discontinu ed, Routine [facility] albumin (PLASBUMIN) 25 % injection 87.5 g 2022-04 19:34: 00 02-23 20:50 :33 No 1g/kg 87.5 g (1 g/kg ?87.5 kg), IV Infusion, ONCE, 1 dose, On Tue02/23/23 at 1445, 400 mL
Cara cation: HEPATORENA L SYNDROME (DIAGNOSIS )
Comme nts: Albumin 1 g/kg/day for 2 days (up to a maximum of 100 g/day) [facility] lactulose (CEPHULAC) solution 30 mL 2022-04 19:00: 00 02-26 01:25 :38 No 30mL 30 mL, Enteral, TID, First dose (after last modificati on) on Tue02/23/23 at 1400, Until Discontinu ed, Routine [facility] midodrine (PROAMATINE ) tablet 5 mg 2022-04 19:00: 00 02-23 19:51 :03 No 5mg 5 mg, Enteral, TID, First dose (after last modificati on) on Tue02/23/23 at 1400, Until Discontinu ed, Routine [facility] midodrine (PROAMATINE ) tablet 5 mg 2022-04 13:00: 00 02-23 17:39 :19 No 5mg 5 mg, Oral, TID, First dose on Tue02/23/23 at 0800, Until Discontinu ed, Routine [facility] NaCl 0.9% (NS) injection 5 mL 2022-04 13:00: 00 02-23 14:02 :00 No 5mL 5 mL, Slow IV Push, ONCE, 1 dose, On Tue02/23/23 at 0800, Routine Univers [facility] cefTRIAXone (ROCEPHIN) 1,000 mg in NaCl 0.9% (NS) 100 mL MINI-BAG 2022-04 19:30: 00 02-24 19:41 :14 No 1000mg 1,000 mg, IV Piggyback, Q24H ABX, 5 doses, First dose on Tue02/22/23 at 1430, Last dose on Tue02/26/23 at 1430, Administer over 30 Minutes, 100 mL
Reas on for Anti-Infec tive: Empiric Therapy for Suspected Infection< br>Empiric Therapy Site: Abdominal< br>Duratio n of therapy: 5 days Univers [facility] octreotide (SANDOSTATI N) injection 100 mcg 2022-04 19:00: 00 02-24 23:03 :09 No 100ug 100 mcg, Subcutaneo us, TID, First dose on Tue02/22/23 at 1400, Until Discontinu ed, Routine
Indicatio n: Hepatorena l Syndrome [facility] NORepinephr ine 4 mg in 0.9% NaCl 250 mL infusion RTU 2022-04 03:09: 24 02-23 03:08 :24 No .05ug/k g/min 0.05-0.5 mcg/kg/min ?93.5 kg (17.5313-1 75.3125 mL/hr, rounded to 17.53-175. 31 mL/hr), IV Infusion, TITRATE, MAP Goal > or = 65 mmHg, Starting on Tue02/21/23 at 2209, For 24 hours
I nitiate titration at 0.05 mcg/kg/min . &nb sp;Increas e by 0.01 mcg/kg/min every 30 seconds to 5 minutes as needed to reach and maintain goal blood pressure.& nbsp;&nbsp ;Maximum dose = 0.5 mcg/kg/min . &nb sp;If goal not maintained at maximum allowed dose, contact prescriber . &nb sp;Adminis ter only one peripheral intravenou s vasopresso r at a time.
[facility] QUEtiapine (SEROQUEL) tablet 25 mg 2022-04 01:00: 00 02-24 19:38 :58 No 25mg 25 mg, Oral, BID, First dose on Tue02/21/23 at 2000, Until Discontinu ed, Routine [facility] dexMEDEtomi dine 200 mcg in 0.9 % NaCl 50 mL (PRECEDEX) RTU IV infusion 2022-04 22:41: 20 02-26 01:48 :24 No .2ug/kg /h 0.2-1.5 mcg/kg/hr ?93.5 kg (4.675-35. 0625 mL/hr, rounded to 4.68-35.06 mL/hr), IV Infusion, TITRATE, Sedation-R ASS score (0 to -1), Starting on Tue02/21/23 at 1741
In itiate infusion at 0.2 mcg/kg/hr and titrate by 0.1 mcg/kg/hr every 30 minutes to goal sedation score. Maximum dose = 1.5 mcg/kg/hr. If goal not maintained at maximum allowed dose, contact prescriber .
[facility] propofoL IV infusion 2022-04 22:25: 53 02-28 15:52 :37 No 5ug/kg/ min 5-50 mcg/kg/min ?93.5 kg (2.805-28. 05 mL/hr, rounded to 2.81-28.05 mL/hr), IV Infusion, TITRATE, Sedation-R ASS score (0 to -1), Starting on Tue02/21/23 at 1725
In itiate infusion at 5 mcg/kg/min and titrate by 5 mcg/kg/min every 30 seconds to 10 minutes to goal sedation score. Maximum dose = 50 mcg/kg/min . If goal not maintained at maximum allowed dose, contact prescriber . &nbs p;Tubing and unused portions of vials should be discarded after 12 hours.
[facility] etomidate (AMIDATE) injection 10 mg 2022-04 22:00: 00 02-21 21:16 :00 No 10mg 10 mg, Slow IV Push, ONCE, 1 dose, On Tue02/21/23 at 1700, Routine [facility] succinylcho line (QUELICIN) injection 120 mg 2022-04 22:00: 00 02-21 21:16 :00 No 120mg 120 mg, IV Push, ONCE, 1 dose, On Tue02/21/23 at 1700, Routine [facility] heparin 1,000 unit/mL injection 2,800 Units 2022-04 21:46: 24 03-03 15:40 :07 No 2800U 2,800 Units, Slow IV Push, PRN - SEE INSTRUCTIO NS, Starting on Tue02/21/23 at 1646, Until Faustina 03/03/23 at 0940, Routine, for post HD hep lock [facility] etomidate (AMIDATE) injection 2022-04 21:07: 00 02-22 00:01 :33 No Slow IV Push, ONCE INTRA PROCEDURE, Starting on Tue02/21/23 at 1607, Until Discontinu ed, Routine, Intra-op [facility] succinylcho line (QUELICIN) injection 2022-04 21:07: 00 02-22 00:01 :33 No IV Push, ONCE INTRA PROCEDURE, Starting on Tue02/21/23 at 1607, Until Discontinu ed, Routine, Intra-op [facility] lactulose (CEPHULAC) solution 30 mL 2022-04 19:00: 00 02-23 17:39 :19 No 30mL 30 mL, Enteral, TID, First dose on Tue02/21/23 at 1400, Until Discontinu ed, Routine [facility] flumazeniL (ROMAZICON) injection 0.3 mg 2022-04 18:15: 00 02-21 17:27 :00 No .3mg 0.3 mg, IV Push, ONCE, 1 dose, On Tue02/21/23 at 1315, CHE
Fa culty member approving Restricted medication : TONY QUIROZ [facility] flumazeniL (ROMAZICON) injection 0.2 mg 2022-04 18:00: 00 02-21 17:14 :00 No .2mg 0.2 mg, IV Push, ONCE, 1 dose, On Tue02/21/23 at 1300, STAT
[facility] : TONY QUIROZ [facility] LORazepam (ATIVAN) injection 2 mg 2022-04 16:00: 00 02-21 16:39 :00 No 2mg 2 mg, Slow IV Push, ONCE, 1 dose, On Tue02/21/23 at 1100, Routine [facility] sulfur hexafluorid e microsphr (LUMASON) injection 5 mL 2022-04 15:30: 00 02-21 15:30 :00 No [id number] 5mL 5 mL, Intravenou s, ONCE, 1 dose, On Tue02/21/23 at 1030, Routine
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 approving Restricted medication : MARIO GARZA [facility] hydrOXYzine (ATARAX) tablet 10 mg 2022-04 09:53: 27 03-03 01:56 :04 No 10mg 10 mg, Oral, Q6HPRN, Starting on Tue02/21/23 at 0453, Until Tue03/02/23 at 1956, Routine, Itching [facility] ondansetron (ZOFRAN (PF)) injection 4 mg 2022-04 03:03: 54 03-06 13:29 :57 No 4mg 4 mg, Slow IV Push, Q6HPRN, Nausea and Vomiting (N/V), Starting on Tue02/20/23 at 2203
Do ses of ondansetro n 16 mg and above need to be administer ed via IV piggyback. For Dose >=24mg ECG monitoring is advisable.
[facility] lactulose (CEPHULAC) solution 45 mL 2022-04 01:00: 00 02-21 05:12 :01 No 45mL 45 mL, Oral, TID, First dose (after last modificati on) on Tue02/20/23 at 2000, Until Discontinu ed, Routine [facility] albumin (PLASBUMIN) 25 % injection 93.5 g 2022-04 14:15: 00 02-21 01:00 :00 No 1g/kg 93.5 g (1 g/kg ?93.5 kg), IV Infusion, ONCE, 1 dose, On Tue02/20/23 at 0915, 400 mL
Cara cation: HEPATORENA L SYNDROME (DIAGNOSIS )
Comme nts: Albumin 1 g/kg/day for 2 days (up to a maximum of 100 g/day) [facility] D5W IV infusion 1,000 mL 2022-04 13:30: 00 02-25 23:05 :02 No 1000mL at 150 mL/hr, IV Infusion, CONTINUOUS , Starting on Tue02/20/23 at 0830, Until Tue02/25/23 at 1805, Routine
To be used as predilutio n fluid through CRRT circuit once CRRT is started to avoid sodium level overcorrec tion (as dialysate sodium concentrat ion is 140 mml/L and patient's Na is 121)
[facility] lactulose (CEPHULAC) solution 15 mL 2022-04 13:00: 00 02-20 18:05 :41 No 15mL 15 mL, Oral, TID, First dose (after last modificati on) on Tue02/20/23 at 0800, Until Discontinu ed, Routine [facility] melatonin (MELATIN) tablet 3 mg 2022-04 05:30: 00 02-26 02:42 :34 No 3mg 3 mg, Oral, QHS, First dose on Tue02/20/23 at 0030, Until Discontinu ed, Routine [facility] rosuvastati n (CRESTOR) tablet 40 mg 2022-04 02:00: 00 02-26 06:24 :54 No 40mg 40 mg, Oral, QHS, First dose on 02/19/23 at 2100, Until Discontinu ed, Routine [facility] D5W IV infusion 1,000 mL 2022-04 21:45: 00 02-20 13:22 :08 No 1000mL at 220 mL/hr, IV Infusion, CONTINUOUS , Starting on 02/19/23 at 1645, Until 02/20/23 at 0822, Routine
To be used as predilutio n fluid through CRRT circuit once CRRT is started to avoid sodium level overcorrec tion (as dialysate sodium concentrat ion is 140 mml/L and patient's Na is 121)
[facility] CRRT fluid dialysate (PRISMASATE 4K) K 4.0-Ca 2.5, Mg 1.5, HCO3 32, NA 140, CL 113, LACTATE 3, DEX 110, Osm 300 2022-04 21:30: 00 02-24 17:25 :11 No 2400mL/ h 2,400 mL/hr, CRRT Circuit, CONTINUOUS , Starting on 02/19/23 at 1630, Until Faustina 02/24/23 at 1225, Routine [facility] NORepinephr ine 4 mg in 0.9% NaCl 250 mL infusion RTU 2022-04 18:32: 05 02-20 18:31 :05 No .05ug/k g/min 0.05-0.5 mcg/kg/min ?93.5 kg (17.5313-1 75.3125 mL/hr, rounded to 17.53-175. 31 mL/hr), IV Infusion, TITRATE, MAP Goal > or = 65 mmHg, Starting on 02/19/23 at 1332, For 24 hours
I nitiate titration at 0.05 mcg/kg/min . &nb sp;Increas e by 0.01 mcg/kg/min every 30 seconds to 5 minutes as needed to reach and maintain goal blood pressure.& nbsp;&nbsp ;Maximum dose = 0.5 mcg/kg/min . &nb sp;If goal not maintained at maximum allowed dose, contact prescriber . &nb sp;Adminis ter only one peripheral intravenou s vasopresso r at a time.
[facility] albumin (PLASBUMIN) 25 % injection 93.5 g 2022-04 15:00: 00 02-20 12:00 :00 No 1g/kg 93.5 g (1 g/kg ?93.5 kg), IV Infusion, ONCE, 1 dose, On 02/19/23 at 1000, 400 mL
Cara cation: HEPATORENA L SYNDROME (DIAGNOSIS )
Comme nts: Albumin 1 g/kg/day for 2 days (up to a maximum of 100 g/day) [facility] furosemide (LASIX) injection 80 mg 2022-04 15:00: 00 02-19 19:42 :00 No 80mg 80 mg, Slow IV Push, ONCE, 1 dose, On 02/19/23 at 1000, Routine [facility] midodrine (PROAMATINE ) tablet 5 mg 2022-04 14:15: 00 02-19 18:23 :31 No 5mg 5 mg, Oral, Q8H, First dose on 02/19/23 at 0915, Until Discontinu ed, Routine [facility] pantoprazol e (PROTONIX) EC tablet 40 mg 2022-04 14:00: 00 02-26 02:42 :34 No 40mg 40 mg, Oral, DAILY, First dose on 02/19/23 at 0900, Until Discontinu ed, Routine [facility] foLIC acid (FOLATE) tablet 1 mg 2022-04 14:00: 00 02-23 17:39 :19 No 1mg 1 mg, Oral, DAILY, First dose on 02/19/23 at 0900, Until Discontinu ed [facility] thiamine (VITAMIN B1) tablet 100 mg 2022-04 14:00: 00 02-23 17:39 :19 No 100mg 100 mg, Oral, DAILY, First dose on 02/19/23 at 0900, Until Discontinu ed, Routine [facility] magnesium sulfate in water 2 gram/50 mL (4 %) infusion 2 g 2022-04 13:30: 00 02-19 15:20 :00 No 2g 2 g, IV Piggyback, Administer over 60 Minutes, ONCE, 1 dose, On 02/19/23 at 0830, Routine [facility] heparin (porcine) injection 5,000 Units 2022-04 13:00: 00 02-23 00:21 :58 No 5000U 5,000 Units, Subcutaneo us, Q12H, First dose on 02/19/23 at 0800, Until Discontinu ed, Routine [facility] lactulose (CEPHULAC) solution 15 mL 2022-04 13:00: 00 02-20 06:44 :06 No 15mL 15 mL, Oral, BID, First dose on 02/19/23 at 0800, Until Discontinu ed, Routine [facility] ceFEPIme (MAXIPIME) 1,000 mg in NaCl 0.9% (NS) 100 mL MINI-BAG 2022-04 12:00: 00 02-22 18:16 :37 No 1000mg 1,000 mg, IV Piggyback, Q12H ABX, 14 doses, First dose on 02/19/23 at 0700, Last dose on Tue02/25/23 at 1900, Administer over 30 Minutes, 100 mL
Reas on for Anti-Infec tive: Empiric Therapy for Suspected Infection< br>Empiric Therapy Site: Abdominal< br>Duratio n of therapy: 72 hours [facility] furosemide (LASIX) injection 40 mg 2022-04 11:00: 00 02-19 10:23 :00 No 40mg 40 mg, Slow IV Push, ONCE, 1 dose, On 02/19/23 at 0600, Routine [facility] folic acid 0.8 mg Cap 2022-04 01:32: 29 Yes Take by mouth. [facility] ity [facility] rosuvastati n 40 mg tablet 2022-04 01:32: 29 Yes 40mg Take 1 tablet by mouth at bedtime. [facility] thiamine 100 mg tablet 2022-04 01:32: 29 Yes 100mg Take 1 tablet by mouth in the morning. [facility] Cholecalcif jeannie, Vitamin D3, 50 mcg (2,000 unit) capsule 2022-04 01:31: 38 Yes Take by mouth. [facility] cyanocobala min, vitamin B-12, 2,000 mcg Tab 2022-04 01:31: 38 Yes Take by mouth. [facility] DULoxetine 60 mg capsule 2022-04 01:31: 38 Yes 60mg Take 1 capsule by mouth in the morning. [facility] empaglifloz in 10 mg 2022-04 01:31: 38 Yes 10mg Take 1 tablet by mouth in the morning. [facility] furosemide (LASIX) 40 mg tablet 2022-04 01:31: 38 Yes 40mg Take 1 tablet by mouth in the morning. [facility] losartan 25 mg tablet 2022-04 01:31: 38 Yes 25mg Take 1 tablet by mouth in the morning. [facility] metoprolol succinate XL 50 mg 24 hr tablet 2022-04 01:31: 38 Yes 50mg Take 1 tablet by mouth in the morning. [facility] mirtazapine 15 mg tablet 2022-04 01:31: 38 Yes 15mg Take 1 tablet by mouth at bedtime. [facility] Pantoprazol e 40 mg delayed-rel ease suspension 2022-04 01:31: 38 Yes 40mg Take 40 mg by mouth in the morning. [facility] spironolact one (ALDACTONE) 25 mg tablet 2022-04 01:31: 38 Yes 25mg Take 1 tablet by mouth in the morning. [facility] Vital Signs Vital Name Observation Time Observation Value Comments Yvonne trujillo Systolic blood pressure 2023-07-13 20:35:00 123 mm[Hg] [facility] Diastolic blood pressure 2023-07-13 20:35:00 72 mm[Hg] [facility] Heart rate 2023-07-13 20:35:00 84 /min [facility] Body temperature 2023-07-13 20:35:00 37.06 Maru [facility] Respiratory rate 2023-07-13 20:35:00 19 /min [facility] Body height 2023-07-13 20:35:00 177.8 cm [facility] weight 2023-07-13 20:35:00 93.016 kg Univ [facility] BMI 2023-07-13 20:35:00 29.42 kg/m2 [facility] Oxygen saturation in Arterial blood by Pulse oximetry 2023-07-13 20:35:00 97 /min [facility] Systolic blood pressure 2023-03-10 19:24:00 101 mm[Hg] [facility] Diastolic blood pressure 2023-03-10 19:24:00 61 mm[Hg] [facility] Heart rate 2023-03-10 19:24:00 101 /min [facility] Body temperature 2023-03-10 19:24:00 36.28 Maru [facility] Respiratory rate 2023-03-10 19:24:00 18 /min [facility] Body weight 2023-03-10 19:24:00 77.6 kg [facility] BMI 2023-03-10 19:24:00 25.25 kg/m2 [facility] Oxygen saturation in Arterial blood by Pulse oximetry 2023-03-10 14:31:00 97 /min [facility] Body height 2023-03-01 02:00:00 175.3 cm [facility] Systolic blood pressure 2023-03-04 17:13:00 142 mm[Hg] [facility] Diastolic blood pressure 2023-03-04 17:13:00 75 mm[Hg] [facility] Heart rate 2023-03-04 17:13:00 78 /min [facility] Body temperature 2023-03-04 17:13:00 37.11 Maru [facility] Respiratory rate 2023-03-04 17:13:00 18 /min [facility] Oxygen saturation in Arterial blood by Pulse oximetry 2023-03-04 17:13:00 96 /min [facility] Body weight 2023-03-03 19:30:00 86.5 kg [facility] BMI 2023-03-03 19:30:00 28.15 kg/m2 [facility] Body height 2023-03-01 02:00:00 175.3 cm [facility] Procedures Procedure Date / Time Performed Performing Clinician Source TRANSTHORACIC ECHO (TTE) COMPLETE W/ CONTRAST 2023-08-30 15:25:00 Jose [facility] MYOCARDIUM PERFUSION STRESS AND REST 2023-08-30 14:40:00 Jose [facility] MYOCARDIUM PERFUSION STRESS AND REST 2023-08-30 14:40:00 Jose [facility] MYOCARDIUM PERFUSION STRESS AND REST 2023-08-30 14:40:00 Jose [facility] MYOCARDIUM PERFUSION STRESS AND REST 2023-08-30 14:40:00 Jose [facility] REFERRAL- REQUEST/RESPONSE 2023-06-21 06:01:00 Doctor Unassigned, [place] [facility] REFERRAL- REQUEST/RESPONSE 2023-06-03 06:01:00 Doctor Unassigned, [place] [facility] ADVANCE DIRECTIVE 2023-03-16 06:01:00 Doctor Laurel ssigned, [place] [facility] MAGNESIUM 2023-03-10 09:42:00 Jayme Seay [facility] BASIC METABOLIC PANEL (NA, K, CL, CO2, GLUCOSE, BUN, CREATININE, CA) 2023-03-10 09:42:00 Jayme eSay [facility] CBC WITH DIFF 2023-03-10 09:42:00 Jayme Seay [facility] MAGNESIUM 2023-03-09 11:08:00 Jayme Seay [facility] BASIC METABOLIC PANEL (NA, K, CL, CO2, GLUCOSE, BUN, CREATININE, CA) 2023-03-09 11:08:00 Jayme Seay [facility] CBC WITH DIFF 2023-03-09 11:08:00 Jayme Seay [facility] COMP. METABOLIC PANEL ([id number]) 2023-03-05 09:46:00 Christopher Heck [facility] CBC WITH DIFF 2023-03-05 09:46:00 Christopher Heck [facility] BLOOD CULTURE SCREEN 2023-03-05 00:38:00 Daysi Rapp [facility] BLOOD CULTURE SCREEN 2023-03-05 00:31:00 Daysi Rapp [facility] CT STROKE ANGIOGRAM HEAD 2023-03-04 19:07:53 Lisa Turner [facility] CT STROKE ANGIOGRAM NECK 2023-03-04 19:07:53 Lisa Turner [facility] CT STROKE HEAD WO CONTRAST 2023-03-04 19:06:48 Lisa Turner [facility] TROPONIN I 2023-03-04 18:49:00 Lisa Turner [facility] BASIC METABOLIC PANEL (NA, K, CL, CO2, GLUCOSE, BUN, CREATININE, CA) 2023-03-04 18:49:00 Analia Rapp [facility] CBC WITHOUT DIFF 2023-03-04 18:49:00 Lisa Turner [facility] PROTHROMBIN TIME / INR 2023-03-04 18:49:00 Lisa Turner [facility] ACTIVATED PARTIAL THRMPLAS NBA 2023-03-04 18:49:00 Lisa Turner [facility] HB INDIRECT ANTIGLOBULIN TEST 2023-03-04 18:49:00 Christopher Heck [facility] POCT GLUCOSE (AUTOMATED) 2023-03-04 18:43:00 Lisa Turner [facility] CBC WITH DIFF 2023-03-04 11:12:00 Analia Rapp [facility] BASIC METABOLIC PANEL (NA, K, CL, CO2, GLUCOSE, BUN, CREATININE, CA) 2023-03-04 11:12:00 Victory, [facility] MAGNESIUM 2023-03-04 11:12:00 Dionte [facility] PHOSPHORUS 2023-03-04 11:12:00 Dionte [facility] PHOSPHORUS 2023-03-04 11:12:00 Dionte [facility] MAGNESIUM 2023-03-04 11:12:00 Dionte [facility] BASIC METABOLIC PANEL (NA, K, CL, CO2, GLUCOSE, BUN, CREATININE, CA) 2023-03-04 11:12:00 Dionte [facility] CBC WITH DIFF 2023-03-04 11:12:00 Dionte [facility] XR KUB 2023-03-03 09:03:00 Loghin [facility] XR KUB 2023-03-03 09:03:00 Loghin [facility] XR KUB 2023-03-03 08:46:00 [place], [facility] XR KUB 2023-03-03 08:46:00 Loghin, [facility] XR KUB 2023-03-03 07:38:00 [place], [facility] XR KUB 2023-03-03 07:38:00 Loghin [facility] XR ABDOMEN 1 2023-03-03 05:28:00 Analia Rapp [facility] XR ABDOMEN 1 2023-03-03 05:28:00 Analia Rapp [facility] PROTHROMBIN TIME / INR 2023-03-02 19:10:00 [facility] / INR 2023-03-02 19:10:00 [facility] IRON PANEL 2023-03-02 10:36:00 Carlos Vincent [facility] FERRITIN SERUM 2023-03-02 10:36:00 Carlos Vincent [facility] CBC WITH DIFF 2023-03-02 10:36:00 VincentCarlos lehman [facility] BASIC METABOLIC PANEL (NA, K, CL, CO2, GLUCOSE, BUN, CREATININE, CA) 2023-03-02 10:36:00 VincentCarlos lehman [facility] MAGNESIUM 2023-03-02 10:36:00 VincentCarlos lehman [facility] PHOSPHORUS 2023-03-02 10:36:00 VincentCarlos lehman [facility] PHOSPHORUS 2023-03-02 10:36:00 VincentCarlos lehman [facility] MAGNESIUM 2023-03-02 10:36:00 VincentCarlos lehman [facility] FERRITIN SERUM 2023-03-02 10:36:00 VincentCarlos lehman [facility] BASIC METABOLIC PANEL (NA, K, CL, CO2, GLUCOSE, BUN, CREATININE, CA) 2023-03-02 10:36:00 VincentCarlos lehman [facility] IRON PANEL 2023-03-02 10:36:00 VincentCarlos lehman [facility] CBC WITH DIFF 2023-03-02 10:36:00 VincentCarlos lehman [facility] XR CHEST 1 2023-03-02 06:52:00 Roger Chan [facility] XR CHEST 1 2023-03-02 06:52:00 Roger Chan [facility] CBC WITHOUT DIFF 2023-03-01 23:03:00 VincentCarlos lehman [facility] CBC WITHOUT DIFF 2023-03-01 23:03:00 VincentCarlos lehman [facility] FL MODIFIED BARIUM SWALLOW 2023-03-01 20:00:00 Adan Sincere [facility] FL MODIFIED BARIUM SWALLOW 2023-03-01 20:00:00 Sincere Arellano [facility] TRANSFUSE PACKED RBC 2023-03-01 14:50:00 Yusuf Green [facility] TRANSFUSE PACKED RBC 2023-03-01 14:50:00 Yusuf Green [facility] PREPARE PACKED RBC 2023-03-01 14:31:00 Yusuf Green mmad [facility] PREPARE PACKED RBC 2023-03-01 14:31:00 Yusuf Green mmad [facility] AMMONIA, PLASMA 2023-03-01 11:20:00 Dany [facility] AMMONIA, PLASMA 2023-03-01 11:20:00 Dany [facility] CBC WITH DIFF 2023-03-01 10:47:00 Vincent, Carlos Valdivia [facility] BASIC METABOLIC PANEL (NA, K, CL, CO2, GLUCOSE, BUN, CREATININE, CA) 2023-03-01 10:47:00 VincentCarlos [facility] MAGNESIUM 2023-03-01 10:47:00 VincentCarlos [facility] MAGNESIUM 2023-03-01 10:47:00 VincentCarlos [facility] BASIC METABOLIC PANEL (NA, K, CL, CO2, GLUCOSE, BUN, CREATININE, CA) 2023-03-01 10:47:00 VincentCarlos [facility] CBC WITH DIFF 2023-03-01 10:47:00 Vincent, Carlos Valdivia [facility] CBC WITH DIFF 2023-02-28 09:36:00 Abigail Chavez [facility] MAGNESIUM 2023-02-28 09:36:00 Abigail Chavez [facility] COMP. METABOLIC PANEL ([id number]) 2023-02-28 09:36:00 Abigail Chavez [facility] PROTHROMBIN TIME / INR 2023-02-28 09:36:00 Ying Saenz [facility] MAGNESIUM 2023-02-28 09:36:00 Abigail Chavez [facility] COMP. METABOLIC PANEL ([id number]) 2023-02-28 09:36:00 Abigail Chavez [facility] CBC WITH DIFF 2023-02-28 09:36:00 Abigail Chavez [facility] PROTHROMBIN TIME / INR 2023-02-28 09:36:00 Ying Saenz [facility] CBC WITHOUT DIFF 2023-02-28 01:06:00 Abigail Chavez [facility] CBC WITHOUT DIFF 2023-02-28 01:06:00 Abigail Chavez [facility] TRANSFUSE PACKED RBC 2023-02-27 21:27:00 Rhoda Severino [facility] TRANSFUSE PACKED RBC 2023-02-27 21:27:00 Rhoda Severino [facility] PREPARE PACKED RBC 2023-02-27 21:19:05 [facility] RBC 2023-02-27 21:19:05 [facility] PHOSPHORUS 2023-02-27 19:13:00 Marcie Trujillo Namrata [facility] ABORH CONFIRMATION (LAB ONLY) 2023-02-27 19:13:00 Zion Vila [facility] PHOSPHORUS 2023-02-27 19:13:00 Marcie Trujillo [facility] ABORH CONFIRMATION (LAB ONLY) 2023-02-27 19:13:[address] [facility] HB ABO GROUPING 2023-02-27 18:39:00 Rhoda Severino [facility] HB ABO GROUPING 2023-02-27 18:39:00 Rhoda Severino [facility] SPUTUM CULTURE 2023-02-27 17:28:00 Rhoda Severino [facility] SPUTUM CULTURE 2023-02-27 17:28:00 Rhoda Severino [facility] ABDOMEN LIMITED 2023-02-27 15:43:53 Brian Chavez [facility] ABDOMEN LIMITED 2023-02-27 15:43:53 Brian Chavez [facility] FIBRINOGEN 2023-02-27 14:44:00 Abigail Chavez [facility] ACTIVATED PARTIAL THRMPLAS NBA 2023-02-27 14:44:00 Abigail Chavez [facility] D-DIMER 2023-02-27 14:44:00 Abigail Chavez [facility] DIFF CONSULT BY PATHOLOGIST 2023-02-27 14:44:00 Abigail Chavez [facility] CBC WITH DIFF 2023-02-27 14:44:00 Abigail Chavez [facility] DIFF CONSULT INTERPRETATION 2023-02-27 14:44:00 Abigail Chavez [facility] DIFF CONSULT BY PATHOLOGIST 2023-02-27 14:44:00 [facility] WITH DIFF 2023-02-27 14:44:00 Abigail Chavez [facility] D-DIMER 2023-02-27 14:44:00 [facility] PARTIAL THRMPLAS NBA 2023-02-27 14:44:00 Abigail Chavez [facility] FIBRINOGEN 2023-02-27 14:44:00 Abigail Chavez [facility] DIFF CONSULT INTERPRETATION 2023-02-27 14:44:00 [facility] CBC WITH DIFF 2023-02-27 09:25:00 [facility] 2023-02-27 09:25:00 Elfego Saenz [facility] PHOSPHORUS 2023-02-27 09:25:00 Elfego Saenz [facility] COMP. METABOLIC PANEL ([id number]) 2023-02-27 09:25:00 Abigail Chavez [facility] PROTHROMBIN TIME / INR 2023-02-27 09:25:00 Ying Saenz [facility] BILI UNCONJUGATED/BILI CONJUG 2023-02-27 09:25:00 Elfego Saenz [facility] PHOSPHORUS 2023-02-27 09:25:00 Elfego Saenz [facility] MAGNESIUM 2023-02-27 09:25:00 Elfego Saenz [facility] BILI UNCONJUGATED/BILI CONJUG 2023-02-27 09:25:00 Elfego Saenz [facility] COMP. METABOLIC PANEL ([id number]) 2023-02-27 09:25:00 Abigail Chavez [facility] CBC WITH DIFF 2023-02-27 09:25:00 Elfego Saenz [facility] PROTHROMBIN TIME / INR 2023-02-27 09:25:00 Ying Saenz [facility] XR CHEST 1 VW 2023-02-27 05:16:00 BilYusuf cartwright [facility] XR CHEST 1 VW 2023-02-27 05:16:00 Yusuf Green [facility] AC PANEL 20 + LACTIC ACID 2023-02-27 03:56:00 Gus Green [facility] AC PANEL 20 + LACTIC ACID 2023-02-27 03:56:00 Gus [facility] MAGNESIUM 2023-02-26 11:18:00 Abigail Chavez [facility] COMP. METABOLIC PANEL ([id number]) 2023-02-26 11:18:00 Abigail Chavez [facility] MAGNESIUM 2023-02-26 11:18:00 Abigail Chavez [facility] COMP. METABOLIC PANEL ([id number]) 2023-02-26 11:18:00 Abigail Chavez [facility] CBC WITH DIFF 2023-02-26 11:13:00 Abigail Chavez [facility] CBC WITH DIFF 2023-02-26 11:13:00 Abigail Chavez [facility] SPUTUM CULTURE 2023-02-26 04:05:00 [facility] 2023-02-26 04:05:00 A[facility]ail [facility] BLOOD CULTURE SCREEN 2023-02-25 23:28:00 Kaleigh Chavez [facility] BLOOD CULTURE SCREEN 2023-02-25 23:28:00 Chavez, Kaleigh [facility]LOOD [facility]EN 2023-02-25 23:17:00 Kaleigh Chavez [facility] CBC WITHOUT DIFF 2023-02-25 23:17:00 [facility] 2023-02-25 23:17:00 Scott [facility] CBC WITHOUT DIFF 2023-02-25 23:17:00 [facility] ARTERIAL BLOOD GAS 2023-02-25 16:06:00 [facility] ARTERIAL BLOOD GAS 2023-02-25 16:06:00 [facility] 1 VW 2023-02-25 15:40:00 Rhoda Severino [facility] XR CHEST 1 VW 2023-02-25 15:40:00 Rhoda Severino [facility] CBC WITH DIFF 2023-02-25 10:32:00 Abigail Chavez [facility] MAGNESIUM 2023-02-25 10:32:00 [facility] COMP. METABOLIC PANEL ([id number]) 2023-02-25 10:32:00 [facility]US 2023-02-25 10:32:00 [facility] PH[facility]US 2023-02-25 10:32:00 Abigail Chavez [facility] MAGNESIUM 2023-02-25 10:32:00 Scott [facility] COMP. METABOLIC PANEL ([id number]) 2023-02-25 10:32:00 Abigail Chavez [facility] CBC WITH DIFF 2023-02-25 10:32:00 Abigail Chavez [facility] BASIC METABOLIC PANEL (NA, K, CL, CO2, GLUCOSE, BUN, CREATININE, CA) 2023-02-24 18:11:00 [facility] BASIC METABOLIC PANEL (NA, K, CL, CO2, GLUCOSE, BUN, CREATININE, CA) 2023-02-24 18:11:00 Scott [facility] BASIC METABOLIC PANEL (NA, K, CL, CO2, GLUCOSE, BUN, CREATININE, CA) 2023-02-24 09:21:00 [facility] CBC WITH DIFF 2023-02-24 09:21:00 Abigail Chavez [facility] MAGNESIUM 2023-02-24 09:21:00 [facility] COMP. METABOLIC PANEL ([id number]) 2023-02-24 09:21:00 Scott [facility] PHOSPHORUS 2023-02-24 09:21:00 [facility] PHOSPH[facility]US 2023-02-24 09:21:00 [facility] MAGNESIUM 2023-02-24 09:21:00 Scott [facility] BASIC METABOLIC PANEL (NA, K, CL, CO2, GLUCOSE, BUN, CREATININE, CA) 2023-02-24 09:21:00 Scott [facility] COMP. METABOLIC PANEL ([id number]) 2023-02-24 09:21:00 [facility] CBC WITH DIFF 2023-02-24 09:21:00 Abigail Chavez [facility] CBC WITH DIFF 2023-02-23 08:35:00 Abigail Chavez [facility] MAGNESIUM 2023-02-23 08:35:00 [facility] COMP. METABOLIC PANEL ([id number]) 2023-02-23 08:35:00 [facility] MAGNESIUM 2023-02-23 08:35:00 [facility] COMP. METABOLIC PANEL ([id number]) 2023-02-23 08:35:00 Scott [facility] CBC WITH DIFF 2023-02-23 08:35:00 Abigail Chavez [facility] AC PANEL 20 + LACTIC ACID 2023-02-22 21:51:00 Rasmusse Jonathan valdivia [facility] AC PANEL 20 + LACTIC ACID 2023-02-22 21:51:00 Rasmusse nJonathan [facility] AC PANEL 20 + LACTIC ACID 2023-02-22 16:21:00 Kim Lee [facility] AC PANEL 20 + LACTIC ACID 2023-02-22 16:21:00 Kim Lee [facility] HIT - AB 2023-02-22 15:18:00 [facility] EXTRA SST HOLD FOR ARUP 2023-02-22 15:18:00 [facility] 2023-02-22 15:18:00 [facility] EXTRA SST HOLD FOR ARUP 2023-02-22 15:18:00 Scott [facility] CBC WITHOUT DIFF 2023-02-22 10:07:00 Reanna Francis or [facility] MAGNESIUM 2023-02-22 10:07:00 Yovana Francis [facility] COMP. METABOLIC PANEL ([id number]) 2023-02-22 10:07:00 Kim Francis [facility] PROTHROMBIN TIME / INR 2023-02-22 10:07:00 Kim Francis [facility] MAGNESIUM 2023-02-22 10:07:00 Yovana Francis [facility] COMP. METABOLIC PANEL ([id number]) 2023-02-22 10:07:00 Kim Francis [facility] CBC WITHOUT DIFF 2023-02-22 10:07:00 Reanna Francis or [facility] PROTHROMBIN TIME / INR 2023-02-22 10:07:00 Kim Francis [facility] ACUTE CARE ARTERIAL BLOOD GAS 2023-02-21 22:48:00 John Arellano [facility] ACUTE CARE ARTERIAL BLOOD GAS 2023-02-21 22:48:00 John Arellano [facility] XR KUB 2023-02-21 22:37:00 Jonathan Engle [facility] XR KUB 2023-02-21 22:37:00 Jonathan Engle [facility] XR CHEST 1 VW 2023-02-21 22:34:00 Jonathan Engle [facility] XR CHEST 1 VW 2023-02-21 22:34:00 Jonathan Engle [facility] INTUBATION 2023-02-21 21:08:00 Abu-Jose, [facility] 2023-02-21 21:08:00 [facility] AC PANEL 20 + LACTIC ACID 2023-02-21 20:24:00 Rocio Chan [facility] AC PANEL 20 + LACTIC ACID 2023-02-21 20:24:00 Rocio Chan [facility] AC PANEL 20 + LACTIC ACID 2023-02-21 17:09:00 Braxton valdivia [facility] AC PANEL 20 + LACTIC ACID 2023-02-21 17:09:00 Jonathan Guillen [facility] HB ECG ROUTINE & RHYTHM STRIP 2023-02-21 15:29:31 [facility] ROUTINE & RHYTHM STRIP 2023-02-21 15:29:31 Roger Chan [facility] TRANSTHORACIC ECHO (TTE) COMPLETE W/ CONTRAST 2023-02-21 15:28:25 Elfego Saenz [facility] TRANSTHORACIC ECHO (TTE) COMPLETE W/ CONTRAST 2023-02-21 15:28:25 Elfego Saenz [facility] XR CHEST 1 2023-02-21 11:49:00 [facility]go [facility] 1 2023-02-21 11:49:00 Elfego [facility]enz [facility] CBC WITH DIFF 2023-02-21 10:30:00 Elfego [facility]enz [facility] BASIC METABOLIC PANEL (NA, K, CL, CO2, GLUCOSE, BUN, CREATININE, CA) 2023-02-21 10:30:00 [facility] HEPATIC FUNCTION PANEL ([id number]) (ALB,T.PRO,BILI T,BU/BC,ALT,AST,ALK PHOS) 2023-02-21 10:30:00 Tiff [facility] PROTHROMBIN TIME / INR 2023-02-21 10:30:00 [facility]ing [facility] HEPATIC FUNCTION PANEL ([id number]) (ALB,T.PRO,BILI T,BU/BC,ALT,AST,ALK PHOS) 2023-02-21 10:30:00 [facility] METABOLIC PANEL (NA, K, CL, CO2, GLUCOSE, BUN, CREATININE, CA) 2023-02-21 10:30:00 [facility] CBC WITH DIFF 2023-02-21 10:30:00 Elfego [facility]enz [facility] PROTHROMBIN TIME / INR 2023-02-21 10:30:00 Ying Saenz [facility] XR KUB 2023-02-20 23:05:00 Justa Roche ttbryon [facility] XR KUB 2023-02-20 23:05:00 Justa Roche bryon [facility] XR KUB 2023-02-20 22:55:00 Sincere Arellano [facility] XR KUB 2023-02-20 22:55:00 Sincere Arellano [facility] XR CHEST 1 VW 2023-02-20 22:49:00 Sincere Arellano [facility] XR CHEST 1 VW 2023-02-20 22:49:00 Sincere Arellano [facility] CT HEAD WO CONTRAST 2023-02-20 20:54:12 Sincere Arellano [facility] CT HEAD WO CONTRAST 2023-02-20 20:54:12 Sincere Arellano [facility] AC PANEL 20 + LACTIC ACID 2023-02-20 19:54:[address] [facility] AC PANEL 20 + LACTIC ACID 2023-02-20 19:54:00 [facility] AMMONIA, PLASMA 2023-02-20 18:47:00 Sincere Arellano [facility] AMMONIA, PLASMA 2023-02-20 18:47:00 Sincere Arellano [facility] BASIC METABOLIC PANEL (NA, K, CL, CO2, GLUCOSE, BUN, CREATININE, CA) 2023-02-20 18:46:00 Sincere Arellano [facility] HIV 1/2 AG-AB WITH REFLEX 2023-02-20 18:46:00 Elfego Saenz [facility] BASIC METABOLIC PANEL (NA, K, CL, CO2, GLUCOSE, BUN, CREATININE, CA) 2023-02-20 18:46:00 Sincere Arellano [facility] HIV 1/2 AG-AB WITH REFLEX 2023-02-20 18:46:00 Elfego Saenz [facility] POCT GLUCOSE (AUTOMATED) 2023-02-20 16:12:00 Ying Vila [facility] POCT GLUCOSE (AUTOMATED) 2023-02-20 16:12:00 Ying Vila [facility] PHOSPHORUS 2023-02-20 09:25:00 Sincere Arellano [facility] MAGNESIUM 2023-02-20 09:25:00 Sincere Arellano [facility] BASIC METABOLIC PANEL (NA, K, CL, CO2, GLUCOSE, BUN, CREATININE, CA) 2023-02-20 09:25:00 Sincere Arellano [facility] CBC WITH DIFF 2023-02-20 09:25:00 Sincere Arellano [facility] PROTHROMBIN TIME / INR 2023-02-20 09:25:00 Ying Saenz [facility] PHOSPHORUS 2023-02-20 09:25:00 Sincere Arellano [facility] MAGNESIUM 2023-02-20 09:25:00 Sincere Arellano [facility] BASIC METABOLIC PANEL (NA, K, CL, CO2, GLUCOSE, BUN, CREATININE, CA) 2023-02-20 09:25:00 Sincere Arellano [facility] CBC WITH DIFF 2023-02-20 09:25:00 Sincere Arellano [facility] PROTHROMBIN TIME / INR 2023-02-20 09:25:00 [facility] ABDOMEN PELVIS WO CONTRAST 2023-02-20 07:07:32 [facility]BDOMEN PELVIS WO CONTRAST 2023-02-20 07:07:32 Dany [facility] XR CHEST 1 VW 2023-02-19 22:17:00 [facility]uf [facility] XR CHEST 1 VW 2023-02-19 22:17:00 Yusuf [place] yukonneftali [facility] AMMONIA, PLASMA 2023-02-19 13:30:00 Sincere Arellano [facility] AMMONIA, PLASMA 2023-02-19 13:30:00 Sincere Arellano [facility] COMP. METABOLIC PANEL ([id number]) 2023-02-19 12:47:00 Sincere Arellano [facility] OSMOLALITY, SERUM OR PLASMA 2023-02-19 12:47:00 Faustina Bourgeois [facility] HEPATIC FUNCTION PANEL ([id number]) (ALB,T.PRO,BILI T,BU/BC,ALT,AST,ALK PHOS) 2023-02-19 12:47:00 Dany [facility] OSMOLALITY, SERUM OR PLASMA 2023-02-19 12:47:00 Faustina Bourgeois [facility] HEPATIC FUNCTION PANEL ([id number]) (ALB,T.PRO,BILI T,BU/BC,ALT,AST,ALK PHOS) 2023-02-19 12:47:00 Dany [facility] COMP. METABOLIC PANEL ([id number]) 2023-02-19 12:47:00 Sincere Arellano [facility] BLOOD CULTURE SCREEN 2023-02-19 09:50:00 Wayne Saenz [facility] BLOOD CULTURE SCREEN 2023-02-19 09:50:00 Wayne Saenz [facility] BLOOD CULTURE SCREEN 2023-02-19 09:49:00 Wayne Saenz [facility] BLOOD CULTURE SCREEN 2023-02-19 09:49:00 Wayne Saenz [facility] URINE CULTURE 2023-02-19 09:17:00 [facility] 2023-02-19 09:17:00 Elfego Saenz Un [facility] RETROPERITONEAL LIMITED 2023-02-19 07:46:55 Abdias Cook [facility] RETROPERITONEAL LIMITED 2023-02-19 07:46:55 Abdias Cook [facility] SODIUM, URINE RANDOM 2023-02-19 07:21:00 Abdias Rice [facility] POTASSIUM, URINE RANDOM 2023-02-19 07:21:00 Abdias Arora [facility] CREATININE, URINE RANDOM 2023-02-19 07:21:00 Abdias Rothman [facility] URINALYSIS 2023-02-19 07:21:00 Elfego Saenz [facility] URINALYSIS 2023-02-19 07:21:00 Elfego Saenz [facility] CREATININE, URINE RANDOM 2023-02-19 07:21:00 Abdias Rothman [facility] POTASSIUM, URINE RANDOM 2023-02-19 07:21:00 Abdias Arora [facility] SODIUM, URINE RANDOM 2023-02-19 07:21:00 Abdias Rice [facility] HEPATITIS B SURFACE ANTIBODY 2023-02-19 07:11:00 Rhoda Severino [facility] HEPATITIS C VIRUS (HCV) BY QUANTITATIVE NAAT 2023-02-19 07:11:00 Rhoda Severino [facility] HCV ANTIBODY 2023-02-19 07:11:00 Rhoda Severino [facility] ETHANOL 2023-02-19 07:11:00 Elfego Saenz [facility] MAGNESIUM 2023-02-19 07:11:00 Rhoda Severino [facility] PHOSPHORUS 2023-02-19 07:11:00 Maycol [facility] HEPATITIS B SURFACE ANTIGEN 2023-02-19 07:11:00 Sincere Arellano [facility] HBC ANTIBODY (IGM & IGG) 2023-02-19 07:11:00 Kortney Arellano and [facility] SYPHILIS IGG/IGM 2023-02-19 07:11:00 [facility]US 2023-02-19 07:11:00 [facility] 2023-02-19 07:11:00 Maycol [facility] ETHANOL 2023-02-19 07:11:00 Elfego Saenz [facility] HEPATITIS B SURFACE ANTIBODY 2023-02-19 07:11:00 Maycol [facility] HEPATITIS B SURFACE ANTIGEN 2023-02-19 07:11:00 Sincere Arellano [facility] HCV ANTIBODY 2023-02-19 07:11:00 Maycol [facility] HBC ANTIBODY (IGM & IGG) 2023-02-19 07:11:00 Kortney Arellano and [facility] HEPATITIS C VIRUS (HCV) BY QUANTITATIVE NAAT 2023-02-19 07:11:00 [facility] SYPHILIS IGG/IGM 2023-02-19 07:11:00 [facility] X[facility] CHEST 1 VW 2023-02-19 06:36:00 Rhoda Severino [facility] XR CHEST 1 VW 2023-02-19 06:36:00 Rhoda Severino [facility] PROTHROMBIN TIME / INR 2023-02-19 05:51:00 Abdias Velazquez [facility] PROTHROMBIN TIME / INR 2023-02-19 05:51:00 Abdias Velazquez [facility] AC PANEL 21 + LACTIC ACID 2023-02-19 05:24:00 Severino, Ay [facility] AC PANEL 21 + LACTIC ACID 2023-02-19 05:24:00 Adriana Severino [facility] MRSA / MSSA SCREEN BY PCR, NARKAYA 2023-02-19 05:20:00 Quin Cookgus [facility] COMP. METABOLIC PANEL ([id number]) 2023-02-19 05:20:00 Abdias Cook [facility] HEPATIC FUNCTION PANEL ([id number]) (ALB,T.PRO,BILI T,BU/BC,ALT,AST,ALK PHOS) 2023-02-19 05:20:00 [facility]FF 2023-02-19 05:20:00 [facility] CORE ANTIBODY IGM 2023-02-19 05:20:00 Maycol [facility] HEPATITIS B SURFACE ANTIGEN 2023-02-19 05:20:00 Maycol [facility] HEPATITIS A VIRUS ANTIBODY IGM 2023-02-19 05:20:00 Maycol [facility] HEPATIC FUNCTION PANEL ([id number]) (ALB,T.PRO,BILI T,BU/BC,ALT,AST,ALK PHOS) 2023-02-19 05:20:00 Quin Cookgus [facility] COMP. METABOLIC PANEL ([id number]) 2023-02-19 05:20:00 Abdias Cook [facility] CBC WITH DIFF 2023-02-19 05:20:00 Heydi Cookgus [facility] HEPATITIS B SURFACE ANTIGEN 2023-02-19 05:20:00 [facility] HEPATITIS A VIRUS ANTIBODY IGM 2023-02-19 05:20:00 Maycol [facility] HEPATITIS B CORE ANTIBODY IGM 2023-02-19 05:20:00 [facility] MRSA / MSSA SCREEN BY PCR, NARES 2023-02-19 05:20:00 [facility] DISCLOSURE AND CONSENT, MEDICAL AND SURGICAL PROCEDURES 2023-02-19 05:01:00 Doctor Unassigned, [place] [facility] NO SHOW OR MISSED APPOINTMENT POLICY ACKNOWLEDGEMENT 2022-11-18 21:24:55 Doctor Unassigned, [place] [facility] PATIENT FINANCIAL POLICY 2022-11-18 21:24:37 Doctor Unassigned, [place] [facility] NOTICE OF PRIVACY PRACTICES 2022-11-18 21:24:20 Doctor Unassigned, [place] [facility] CONSENT/REFUSAL FOR DIAGNOSIS AND TREATMENT 2022-11-18 21:24:05 Doctor Unassigned, [place] [facility] ASSIGNMENT OF BENEFITS 2022-11-18 21:23:50 Docto r Unassigned, [place] [facility] Encounters Start Date/Time End Date/Time Encounter Type Admission Type Attending [facility] Facility Care Department Encounter ID Source 2023-09-22 00:00:00 2023-09-22 15:52:01 Telephone Brenden Hickey [facility] 1.2.840.114 350.1.13.10 4.2.7.2.686 [id number] [facility] 2023-08-31 00:00:00 2023-08-31 10:42:14 Telephone [facility] 1.2.840.114 350.1.13.10 4.2.7.2.686 [id number] [facility] 2023-08-30 07:35:05 2023-08-30 23:59:00 Hospital Encounter [facility] 1.2.840.114 350.1.13.10 4.2.7.2.686 [id number] [facility] 2023-08-30 07:34:50 2023-08-30 07:34:50 Hospital Encounter [facility] 1.2.840.114 350.1.13.10 4.2.7.2.686 [id number] [facility] 2023-08-30 07:34:43 2023-08-30 07:34:43 Hospital [facility] 1.2.840.114 350.1.13.10 4.2.7.2.686 [id number] [facility] 2023-08-30 07:34:36 2023-08-30 07:34:36 Hospital Encounter [facility] 1.2840.114 350.1.13.10 4.2.7.2.686 [id number] [facility] 2023-08-30 07:34:05 2023-08-30 07:34:05 Outpatient R [facility] [id number] [facility] 2023-08-30 07:34:05 2023-08-30 07:34:05 Hospital Encounter [facility] 1.2840.114 350.1.13.10 4.2.7.2.686 [id number] [facility] 2023-07-21 08:00:00 2023-07-21 08:00:00 Outpatient R [facility] [id number] [facility] 2023-07-13 15:40:00 2023-07-13 15:55:21 Outpatient R [facility] [id number] [facility] 2023-07-13 15:40:00 2023-07-13 15:55:21 Office Visit [facility] 1.2.840.114 350.1.13.10 4.2.7.2.686 [id number] [facility] 2023-06-21 00:00:00 2023-06-21 00:00:00 Orders Only Doctor Unassigned, [place] [facility] 1.2.840.114 350.1.13.10 4.2.7.2.686 [id number] [facility] 2023-06-03 00:00:00 2023-06-03 00:00:00 Orders Only Doctor Unassigned, [place] [facility] 1.2.840.114 350.1.13.10 4.2.7.2.686 [id number] [facility] 2023-03-16 00:00:00 2023-03-16 00:00:00 Orders Only Doctor Unassigned, [place] [facility] 1.2.840.114 350.1.13.10 4.2.7.2.686 [id number] [facility] 2023-03-11 00:00:00 2023-03-11 00:00:00 Transition of Care [facility] 1.2.840.114 350.1.13.10 4.2.7.2.686 [id number] [facility] 2023-02-18 23:56:00 2023-03-10 14:51:00 Inpatient U [facility] [id number] [facility] 2023-02-18 23:56:00 2023-03-10 14:51:00 Hospital Encounter Zion Vila, Tony Ballard, Alan Turner, Arpit Choi [facility] 1.2.840.114 350.1.13.10 4.2.7.2.686 [id number] [facility] 2023-03-03 00:00:00 2023-03-03 00:00:00 Travel 1.2.840.1 01131.1.1 3.104.2.7 .[id number] .8 1.2.840.114 350.1.13.10 4.2.7.3.698 [id number] [facility] 2023-02-21 16:17:36 2023-02-21 16:17:36 Anesthesia Event Ute Spencer 1.2.840.1 05551.1.1 3.104.2.7 .3.290136 .8 [id number] [facility] 2023-02-21 00:00:00 2023-02-21 00:00:00 Case Management Zeynep Orozco 1.2.840.1 73871.1.1 3.104.2.7 .3.950313 .8 [id number] [facility] 2022-11-18 16:27:08 2022-11-18 23:59:00 Outpatient R RADIOLOGY [facility] [id number] [facility] 2022-11-18 16:27:08 2022-11-18 23:59:00 Hospital Encounter Radiology [facility] 1.2.840.114 350.1.13.10 4.2.7.2.686 [id number] [facility] 2022-10-08 05:00:00 2022-10-08 05:00:00 Outpatient [facility] [id number] [facility] Results Test Description Test Time Test Comments Results Result Co mments Source [facility] [id number] 06:01:28* Test Item Value Reference Range Interpretation Comme nts Blood Culture-Aerobic (test code = 62179-7) No organisms isolated No growth Previous preliminary verified result was Culture In Progress on 03/05/2023 at 0301 CSTPrevious preliminary verified result was No growth at 24 hours on 03/06/2023 at 0001 CSTPrevious preliminary verified result was No growth at 48 hours on 03/07/2023 at 0001 CSTPrevious preliminary verified result was No growth at 72 hours on 03/08/2023 at 0001 HE[facility] Blood Culture-Anaerobic (test code = 43456-8) No organisms isolated No growth Previous preliminary verified result was Culture In Progress on 03/05/2023 at 0301 CSTPrevious preliminary verified result was No growth at 24 hours on 03/06/2023 at 0001 CSTPrevious preliminary verified result was No growth at 48 hours on 03/07/2023 at 0001 CSTPrevious preliminary verified result was No growth at 72 hours on 03/08/2023 at 0001 HE[facility] Lab Interpretation (test code = 94255-3) Normal [facility] [id number] 06:01:28* Test Item Value Reference Range Interpretation Comme nts Blood Culture-Aerobic (test code = 33514-0) No organisms isolated No growth Previous preliminary verified result was Culture In Progress on 03/05/2023 at 0301 CSTPrevious preliminary verified result was No growth at 24 hours on 03/06/2023 at 0001 CSTPrevious preliminary verified result was No growth at 48 hours on 03/07/2023 at 0001 CSTPrevious preliminary verified result was No growth at 72 hours on 03/08/2023 at 0001 HE[facility] Blood Culture-Anaerobic (test code = 18755-3) No organisms isolated No growth Previous preliminary verified result was Culture In Progress on 03/05/2023 at 0301 CSTPrevious preliminary verified result was No growth at 24 hours on 03/06/2023 at 0001 CSTPrevious preliminary verified result was No growth at 48 hours on 03/07/2023 at 0001 CSTPrevious preliminary verified result was No growth at 72 hours on 03/08/2023 at 0001 HE[facility] Lab Interpretation (test code = 18350-2) Normal [facility] (NA, K, CL, CO2, GLUCOSE, BUN, CREATININE, CA)2023-03-04 20:17:39* Test Item Value Reference Range Interpretation Comme nts NA (test code = 2491128469) 138 mmol/L 135-145 K (test code = 1937698204) 3.7 mmol/L 3.5-5.0 CL (test code = 4269795721) 102 mmol/L 98-108 CO2 TOTAL (test code = 2233584558) 24 mmol/L 23-31 AGAP (test code = 9439669193) 12 2-16 BUN (test code = 6753024825) 32 mg/dL 7-23 H GLUCOSE (test code = 3355443471) 98 mg/dL 70-110 CREATININE (test code = 9691343551) 4.86 mg/dL 0.60-1.25 H CALCIUM (test code = 6377365367) 9.8 mg/dL 8.6-10.6 eGFR (test code = 44983-0) 13.2 mL/min/1.73m2 CKD-EPI eGFR (2020). Assuming creatinine has been stable day-to-day for at least three months, the eGFR indicates Category G5 (<= 14mL/min/1.73 m2) Lab Interpretation (test code = 68188-6) Abnormal [facility]Type and Screen - ONCE [id number] 19:37:00* Test Item Value Reference Range Interpretation Comme nts ABO & RH (test code = 20) O POSITIVE IAT (test code = 1185) Negative [facility] HospitalTroponin [id number] 19:23:11* Test Item Value Reference Range Interpretation Comme nts TROPONIN I (test code = 3338876465) 0.009 ng/mL <=0.034 BOBBY (test code = BOBBY) Reference (Normal) Range (defined by the 99th percentile reference limit): <= 0.034 ng/mL Note: Cardiac troponin begins to rise 3-4 hours after the onset of ischemia. Repeat in 4-6 hours if the sample was drawn within 3-4 hours of the onset of the symptom and found normal. Diagnosis of myocardial injury is made with acute changes in cTn concentrations with at least one serial sample above the 99th percentile upper reference limit (URL), taken together with the patient's clinical presentation. Biotin has been reported to cause a negative bias, interpret results relative to patient's use of biotin. Lab Interpretation (test code = 16605-2) Normal [facility] HospitalProthrombin Time / [id number] 19:05:07* Test Item Value Reference Range Interpretation Comme nts PROTIME PATIENT (test code = 5964-2) 13.9 See_Comment H [Automated [employer]] The system which generated this result transmitted reference range: 10.1 - 12.6 Seconds. The reference range was not used to interpret this result as normal/abnormal. INR (test code = 6301-6) 1.2 Normal INR <1.1; Warfarin Therapeutic range 2.0 to 3.0 or 2.5 to 3.5, depending upon the indications. Lab Interpretation (test code = 24681-7) Abnormal [facility] HospitalaPTT2023-11-10 19:05:07* Test Item Value Reference Range Interpretation Comme [facility] APTT Patient (test code = 3173-2) 36 See_Comment [Automated messa ge] The system which generated this result transmitted reference range: 26 - 36 Seconds. The reference range was not used to interpret this result as normal/abnormal. Lab Interpretation (test code = 59920-6) Normal [facility]Profile / [id number] 18:56:44* Test Item Value Reference Range Interpretation Comme nts WBC (test code = 6690-2) 11.54 See_Comment H [Automated message] The system which generated this result transmitted reference range: 4.20 - 10.70 10*3/?L. The reference range was not used to interpret this result as normal/abnormal. RBC (test code = 789-8) 2.54 See_Comment L [Automated message] The system which generated this result transmitted reference range: 4.26 - 5.52 10*6/?L. The reference range was not used to interpret this result as normal/abnormal. HGB (test code = 718-7) 7.9 g/dL 12.2-16.4 L HCT (test code = 4544-3) 24.9 % 38.4-49.3 L MCH (test code = 785-6) 31.1 pg 26.1-32.7 MCV (test code = 787-2) 98.0 fL 81.7-95.6 H MCHC (test code = 786-4) 31.7 g/dL 31.2-35.0 PLT (test code = 777-3) 142 See_Comment L [Automated message] The system which generated this result transmitted reference range: 150 - 328 10*3/?L. The reference range was not used to interpret this result as normal/abnormal. MPV (test code = 49711-5) 9.3 fL 9.8-13.0 L RDW-CV (test code = 788-0) 22.1 % 12.1-15.4 H RDW-SD (test code = 40424-5) 73.0 fL 38.5-51.6 H NRBC x10^3 (test code = 3266488461) See_Comment [Automated messa ge] The system which generated this result transmitted reference range: 10*3/?L. The reference range was not used to interpret this result as normal/abnormal. NRBC/100 WBC (test code = 3150415405) 0.0 See_Comment [Automated messa ge] The system which generated this result transmitted reference range: 0.0 - 10.0 /100 WBCs. The reference range was not used to interpret this result as normal/abnormal. IPF % (test code = 9594811613) Lab Interpretation (test code = 85729-8) Abnormal [facility] HospitalPOCA GLUCOSE (AUTOMATED)2023-03-04 18:44:21* Test Item Value Reference Range Interpretation Comme [facility] POCT GLU (test code = 0775895497) 101 mg/dL 70-110 Lab Interpretation (test cod e = 42524-4) Normal [facility] CULTURE [id number] 01:01:26* Test Item Value Reference Range Interpretation Comme nts Blood Culture-Aerobic (test code = 86542-8) No organisms isolated No growth Previous preliminary verified result was Culture In Progress on 02/25/2023 at 2301 CDTPrevious preliminary verified result was No growth at 24 hours on 02/26/2023 at 2000 CDTPrevious preliminary verified result was No growth at 48 hours on 02/27/2023 at 1901 CSTPrevious preliminary verified result was No growth at 72 hours on 02/28/2023 at 1901 [facility] Blood Culture-Anaerobic (test code = 92329-5) No organisms isolated No growth Previous preliminary verified result was Culture In Progress on 02/25/2023 at 2301 CDTPrevious preliminary verified result was No growth at 24 hours on 02/26/2023 at 2000 CDTPrevious preliminary verified result was No growth at 48 hours on 02/27/2023 at 1901 CSTPrevious preliminary verified result was No growth at 72 hours on 02/28/2023 at 1901 [facility] Lab Interpretation (test code = 36514-8) [facility] [id number] 01:01:26* Test Item Value Reference Range Interpretation Comme nts Blood Culture-Aerobic (test code = 87261-6) No organisms isolated No growth Previous preliminary verified result was Culture In Progress on 02/25/2023 at 2301 CDTPrevious preliminary verified result was No growth at 24 hours on 02/26/2023 at 2000 CDTPrevious preliminary verified result was No growth at 48 hours on 02/27/2023 at 1901 CSTPrevious preliminary verified result was No growth at 72 hours on 02/28/2023 at 1901 HE[facility]TER Blood Culture-Anaerobic (test code = 96128-0) No organisms isolated No growth Previous preliminary verified result was Culture In Progress on 02/25/2023 at 2301 CDTPrevious preliminary verified result was No growth at 24 hours on 02/26/2023 at 2000 CDTPrevious preliminary verified result was No growth at 48 hours on 02/27/2023 at 1901 CSTPrevious preliminary verified result was No growth at 72 hours on 02/28/2023 at 1901 HE[facility]TER Lab Interpretation (test code = 15598-1) Normal [facility] HospitalBL[facility] CULTURE [id number] 01:01:26* Test Item Value Reference Range Interpretation Comme nts Blood Culture-Aerobic (test code = 57464-9) No organisms isolated No growth Previous preliminary verified result was Culture In Progress on 02/25/2023 at 2301 CDTPrevious preliminary verified result was No growth at 24 hours on 02/26/2023 at 2000 CDTPrevious preliminary verified result was No growth at 48 hours on 02/27/2023 at 1901 CSTPrevious preliminary verified result was No growth at 72 hours on 02/28/2023 at 1901 HE[facility]TER Blood Culture-Anaerobic (test code = 66844-3) No organisms isolated No growth Previous preliminary verified result was Culture In Progress on 02/25/2023 at 2301 CDTPrevious preliminary verified result was No growth at 24 hours on 02/26/2023 at 2000 CDTPrevious preliminary verified result was No growth at 48 hours on 02/27/2023 at 1901 CSTPrevious preliminary verified result was No growth at 72 hours on 02/28/2023 at 1901 HE[facility]TER Lab Interpretation (test code = 38510-4) Normal [facility] HospitalPROTHROMBIN TIME / [id number] 19:51:25* Test Item Value Reference Range Interpretation Comme nts PROTIME PATIENT (test code = 5964-2) 14.5 See_Comment H [Automated messa ge] The system which generated this result transmitted reference range: 10.1 - 12.6 Seconds. The reference range was not used to interpret this result as normal/abnormal. INR (test code = 6301-6) 1.3 Normal INR <1.1; Warfarin Therapeutic range 2.0 to 3.0 or 2.5 to 3.5, depending upon the indications. Lab Interpretation (test code = 52679-1) Abnormal [facility] HospitalPROTHROMBIN TIME / [id number] 19:51:25* Test Item Value Reference Range Interpretation Comme nts PROTIME PATIENT (test code = 5964-2) 14.5 See_Comment H [Automated messa ge] The system which generated this result transmitted reference range: 10.1 - 12.6 Seconds. The reference range was not used to interpret this result as normal/abnormal. INR (test code = 6301-6) 1.3 Normal INR <1.1; Warfarin Therapeutic range 2.0 to 3.0 or 2.5 to 3.5, depending upon the indications. Lab Interpretation (test code = 40708-9) Abnormal [facility] HospitalCBC WITHOUT [id number] 23:28:46* Test Item Value Reference Range Interpretation Comme nts WBC (test code = 6690-2) 19.43 See_Comment H [Automated message] The system which generated this result transmitted reference range: 4.20 - 10.70 10*3/?L. The reference range was not used to interpret this result as normal/abnormal. RBC (test code = 789-8) 2.52 See_Comment L [Automated message] The system which generated this result transmitted reference range: 4.26 - 5.52 10*6/?L. The reference range was not used to interpret this result as normal/abnormal. HGB (test code = 718-7) 7.7 g/dL 12.2-16.4 L HCT (test code = 4544-3) 23.8 % 38.4-49.3 L MCH (test code = 785-6) 30.6 pg 26.1-32.7 MCV (test code = 787-2) 94.4 fL 81.7-95.6 MCHC (test code = 786-4) 32.4 g/dL 31.2-35.0 PLT (test code = 777-3) 114 See_Comment L [Automated message] The system which generated this result transmitted reference range: 150 - 328 10*3/?L. The reference range was not used to interpret this result as normal/abnormal. MPV (test code = 74336-3) 11.0 fL 9.8-13.0 RDW-CV (test code = 788-0) 21.8 % 12.1-15.4 H RDW-SD (test code = 54497-6) 66.4 fL 38.5-51.6 H NRBC x10^3 (test code = 5745204303) See_Comment [Automated messa ge] The system which generated this result transmitted reference range: 10*3/?L. The reference range was not used to interpret this result as normal/abnormal. NRBC/100 WBC (test code = 9942673867) 0.0 See_Comment [Automated messa ge] The system which generated this result transmitted reference range: 0.0 - 10.0 /100 WBCs. The reference range was not used to interpret this result as normal/abnormal. IPF % (test code = 2065421461) Lab Interpretation (test code = 55832-9) Abnormal [facility] WITHOUT [id number] 23:28:46* Test Item Value Reference Range Interpretation Comme nts WBC (test code = 6690-2) 19.43 See_Comment H [Automated message] The system which generated this result transmitted reference range: 4.20 - 10.70 10*3/?L. The reference range was not used to interpret this result as normal/abnormal. RBC (test code = 789-8) 2.52 See_Comment L [Automated message] The system which generated this result transmitted reference range: 4.26 - 5.52 10*6/?L. The reference range was not used to interpret this result as normal/abnormal. HGB (test code = 718-7) 7.7 g/dL 12.2-16.4 L HCT (test code = 4544-3) 23.8 % 38.4-49.3 L MCH (test code = 785-6) 30.6 pg 26.1-32.7 MCV (test code = 787-2) 94.4 fL 81.7-95.6 MCHC (test code = 786-4) 32.4 g/dL 31.2-35.0 PLT (test code = 777-3) 114 See_Comment L [Automated message] The system which generated this result transmitted reference range: 150 - 328 10*3/?L. The reference range was not used to interpret this result as normal/abnormal. MPV (test code = 17931-4) 11.0 fL 9.8-13.0 RDW-CV (test code = 788-0) 21.8 % 12.1-15.4 H RDW-SD (test code = 47159-2) 66.4 fL 38.5-51.6 H NRBC x10^3 (test code = 8111334754) See_Comment [Automated messa ge] The system which generated this result transmitted reference range: 10*3/?L. The reference range was not used to interpret this result as normal/abnormal. NRBC/100 WBC (test code = 5280844166) 0.0 See_Comment [Automated messa ge] The system which generated this result transmitted reference range: 0.0 - 10.0 /100 WBCs. The reference range was not used to interpret this result as normal/abnormal. IPF % (test code = 3702418679) Lab Interpretation (test code = 95624-1) Abnormal [facility] Packed RBC (in units), 1 Units 2023-03-01 14:31:00* Test Item Value Reference Range Interpretation Comme nts Cross Match Result (test code = 4409) Compatible ISBT Blood Type Code (test code = 995754) 5100 Unit Blood Type (test code = 4410) O Pos Unit Number (test code = 4411) [id number] Blood Expiration Date & Time (test code = 138115) 059107817600 Status Information (test code = 4412) Issued Product Identification (test code = 4413) Red Blood Cells Product Code (test code = 4414) [id number] Performed at [facility] B Laboratory Services - [facility] Blood [address] [address]Wbjw Free: [phone] No. [id number] [facility] Packed RBC (in units), 1 Units 2023-03-01 14:31:00* Test Item Value Reference Range Interpretation Comme nts Cross Match Result (test code = 4409) Compatible ISBT Blood Type Code (test code = 070585) 5100 Unit Blood Type (test code = 4410) O Pos Unit Number (test code = 4411) [id number] Blood Expiration Date & Time (test code = 231841) 304583059990 Status Information (test code = 4412) Issued Product Identification (test code = 4413) Red Blood Cells Product Code (test code = 4414) [id number] Performed at [facility] Blood [address] [address]Gzfv Free: [phone] No. [id number] [facility] [id number] 12:12:59* Test Item Value Reference Range Interpretation Comme [facility] SPUTUM CULTURE (test code = 622-1) Specimen cellular elements do not represent lower respiratory tract. Specimen rejected for routine bacterial culture. Suggest reorder and recollection. Gram stain (test code = 664-3) Numerous Epithelial cells [facility] [id number] 12:12:59* Test Item Value Reference Range Interpretation Comme nts SPUTUM CULTURE (test code = 622-1) Specimen cellular elements do not represent lower respiratory tract. Specimen rejected for routine bacterial culture. Suggest reorder and recollection. Gram stain (test code = 664-3) Numerous Epithelial cells [facility] Packed RBC (in units), 1 Units 2023-02-27 21:19:05* Test Item Value Reference Range Interpretation Comme nts Cross Match Result (test code = 4409) Compatible ISBT Blood Type Code (test code = 758040) 5100 Unit Blood Type (test code = 4410) O Pos Unit Number (test code = 4411) [id number] Blood Expiration Date & Time (test code = 622253) 915109177432 Status Information (test code = 4412) Issued Product Identification (test code = 4413) Red Blood Cells Product Code (test code = 4414) [id number] Performed at [facility] Blood [address] [place] [address]Rewa Free: [phone] No. [id number] [facility] Panel 20 + Lactic [id number] 04:29:10* Test Item Value Reference Range Interpretation Comme nts PH (test code = 2) 7.41 7.35-7.45 PCO2 (test code = 5329952326) 33 See_Comment L [Automated messa ge] The system which generated this result transmitted reference range: 35 - 45 mmHg. The reference range was not used to interpret this result as normal/abnormal. PO2 (test code = 4522586841) 77 See_Comment L [Automated messa ge] The system which generated this result transmitted reference range: 80 - 100 mmHg. The reference range was not used to interpret this result as normal/abnormal. HCO3 (test code = 9044270959) 20 See_Comment L [Automated messa ge] The system which generated this result transmitted reference range: 22 - 26 mEq/L. The reference range was not used to interpret this result as normal/abnormal. BE (test code = 5629540976) -3.2 See_Comment L [Automated messa ge] The system which generated this result transmitted reference range: -3.0 - 3.0 mEq/L. The reference range was not used to interpret this result as normal/abnormal. THB (test code = 9589319976) 12.6 g/dL 13.5-18.0 L %O2HB (test code = 5456681434) 93.5 % 94.0-99.0 L %COHB ART (test code = 1739215807) 0.8 % 0.0-1.5 %METHB ART (test code = 0646330495) 0.4 % 0.4-1.5 VOL%O2 ART (test code = 1890735692) 16.6 % 15.0-23.0 NA (test code = 6920604907) 136 mmol/L 135-145 K+ (test code = 0435168828) 3.8 mmol/L 3.5-5.0 AC CA IONZ (test code = 2482581505) 4.50 mg/dL 4.50-5.30 GLUCOSE (test code = 3050585749) 110 mg/dL 70-110 LACTIC ACID (test code = 3526432168) 1.84 mmol/L 0.50-2.20 Lab Interpretation (test code = 06114-8) [facility] Lactic [id number] 04:29:10* Test Item Value Reference Range Interpretation Comme nts PH (test code = 2) 7.41 7.35-7.45 PCO2 (test code = 1703532146) 33 See_Comment L [Automated messa ge] The system which generated this result transmitted reference range: 35 - 45 mmHg. The reference range was not used to interpret this result as normal/abnormal. PO2 (test code = 9493751231) 77 See_Comment L [Automated messa ge] The system which generated this result transmitted reference range: 80 - 100 mmHg. The reference range was not used to interpret this result as normal/abnormal. HCO3 (test code = 3796475769) 20 See_Comment L [Automated messa ge] The system which generated this result transmitted reference range: 22 - 26 mEq/L. The reference range was not used to interpret this result as normal/abnormal. BE (test code = 4387495378) -3.2 See_Comment L [Automated messa ge] The system which generated this result transmitted reference range: -3.0 - 3.0 mEq/L. The reference range was not used to interpret this result as normal/abnormal. THB (test code = 3031274899) 12.6 g/dL 13.5-18.0 L %O2HB (test code = 8913924268) 93.5 % 94.0-99.0 L %COHB ART (test code = 1836887055) 0.8 % 0.0-1.5 %METHB ART (test code = 0724383888) 0.4 % 0.4-1.5 VOL%O2 ART (test code = 7551337264) 16.6 % 15.0-23.0 NA (test code = 6290572411) 136 mmol/L 135-145 K+ (test code = 1820417444) 3.8 mmol/L 3.5-5.0 AC CA IONZ (test code = 9279521288) 4.50 mg/dL 4.50-5.30 GLUCOSE (test code = 0376048895) 110 mg/dL 70-110 LACTIC ACID (test code = 8251681047) 1.84 mmol/L 0.50-2.20 Lab Interpretation (test code = 29877-7) Abnormal [facility] WITH [id number] 12:03:47* Test Item Value Reference Range Interpretation Comme nts WBC (test code = 6690-2) 16.23 See_Comment H [Automated messa ge] The system which generated this result transmitted reference range: 4.20 - 10.70 10*3/?L. The reference range was not used to interpret this result as normal/abnormal. RBC (test code = 789-8) 2.59 See_Comment L [Automated messa ge] The system which generated this result transmitted reference range: 4.26 - 5.52 10*6/?L. The reference range was not used to interpret this result as normal/abnormal. HGB (test code = 718-7) 7.9 g/dL 12.2-16.4 L HCT (test code = 4544-3) 24.3 % 38.4-49.3 L MCV (test code = 787-2) 93.8 fL 81.7-95.6 MCH (test code = 785-6) 30.5 pg 26.1-32.7 MCHC (test code = 786-4) 32.5 g/dL 31.2-35.0 RDW-SD (test code = 10928-5) 66.4 fL 38.5-51.6 H RDW-CV (test code = 788-0) 19.5 % 12.1-15.4 H PLT (test code = 777-3) 37 See_Comment LL [Automated messa ge] The system which generated this result transmitted reference range: 150 - 328 10*3/?L. The reference range was not used to interpret this result as normal/abnormal. MPV (test code = 21540-6) Not Measured IPF % (test code = 2399685588) 13.6 % 1.2-10.7 H Platelet count measured by fluorescence method. NRBC/100 WBC (test code = 6610557510) 0.1 See_Comment [Automated [employer] ssage] The system which generated this result transmitted reference range: 0.0 - 10.0 /100 WBCs. The reference range was not used to interpret this result as normal/abnormal. NRBC x10^3 (test code = 3731331117) 0.02 See_Comment [Automated messa ge] The system which generated this result transmitted reference range: 10*3/?L. The reference range was not used to interpret this result as normal/abnormal. GRAN MAT (NEUT) % (test code = 770-8) 64.8 % IMM GRAN % (test code = 9942059027) 1.70 % LYMPH % (test code = 736-9) 13.8 % MONO % (test code = 5905-5) 13.1 % EOS % (test code = 713-8) 6.4 % BASO % (test code = 706-2) 0.2 % GRAN MAT x10^3(ANC) (test code = 1978128952) 10.52 10*3/uL 1.99-6.95 H IMM GRAN x10^3 (test code = 3484474256) 0.27 10*3/uL 0.00-0.06 H LYMPH x10^3 (test code = 731-0) 2.24 10*3/uL 1.09-3.23 MONO x10^3 (test code = 742-7) 2.12 10*3/uL 0.36-1.02 H EOS x10^3 (test code = 711-2) 1.04 10*3/uL 0.06-0.53 H BASO x10^3 (test code = 704-7) 0.04 10*3/uL 0.01-0.09 Lab Interpretation (test code = 01921-7) [facility] 11:57:16* Test Item Value Reference Range Interpretation Comme nts MAGNESIUM (test code = 5154452037) 2.6 mg/dL 1.7-2.4 H Lab Interpretation (test cod e = 58520-0) [facility] ([id number])2023-02-26 11:57:15* Test Item Value Reference Range Interpretation Comme nts NA (test code = 4390668676) 138 mmol/L 135-145 K (test code = 8170147155) 3.6 mmol/L 3.5-5.0 CL (test code = 2600613108) 104 mmol/L 98-108 CO2 TOTAL (test code = 8693062160) 24 mmol/L 23-31 AGAP (test code = 3753542825) 10 2-16 BUN (test code = 4194795906) 13 mg/dL 7-23 GLUCOSE (test code = 1969937509) 111 mg/dL 70-110 H CREATININE (test code = 6115833376) 2.58 mg/dL 0.60-1.25 H TOTAL BILI (test code = 9372637270) 2.7 mg/dL 0.1-1.1 H CALCIUM (test code = 8078501672) 8.4 mg/dL 8.6-10.6 L T PROTEIN (test code = 5333295120) 6.8 g/dL 6.3-8.2 ALBUMIN (test code = 8333723564) 4.1 g/dL 3.5-5.0 ALK PHOS (test code = 0658680907) 193 U/L 34-122 H ALTv (test code = 1742-6) 39 U/L 5-50 AST(SGOT) (test code = 9468439435) 206 U/L 13-40 H eGFR (test code = 17168-3) 28.3 mL/min/1.73m2 CKD-EPI eGFR (2020). Assuming creatinine has been stable day-to-day for at least three months, the eGFR indicates Category G4 (15 - 29 mL/min/1.73 m2) Lab Interpretation (test code = 74043-1) Abnormal [facility] WITHOUT [id number] 00:14:22* Test Item Value Reference Range Interpretation Comme nts WBC (test code = 6690-2) 11.07 See_Comment H [Automated messa ge] The system which generated this result transmitted reference range: 4.20 - 10.70 10*3/?L. The reference range was not used to interpret this result as normal/abnormal. RBC (test code = 789-8) 2.61 See_Comment L [Automated message] The system which generated this result transmitted reference range: 4.26 - 5.52 10*6/?L. The reference range was not used to interpret this result as normal/abnormal. HGB (test code = 718-7) 8.0 g/dL 12.2-16.4 L HCT (test code = 4544-3) 24.4 % 38.4-49.3 L MCH (test code = 785-6) 30.7 pg 26.1-32.7 MCV (test code = 787-2) 93.5 fL 81.7-95.6 MCHC (test code = 786-4) 32.8 g/dL 31.2-35.0 PLT (test code = 777-3) 28 See_Comment LL [Automated message] The system which generated this result transmitted reference range: 150 - 328 10*3/?L. The reference range was not used to interpret this result as normal/abnormal. MPV (test code = 97510-1) 11.5 fL 9.8-13.0 RDW-CV (test code = 788-0) 19.5 % 12.1-15.4 H RDW-SD (test code = 71139-1) 66.5 fL 38.5-51.6 H NRBC x10^3 (test code = 6282672600) See_Comment [Automated messa ge] The system which generated this result transmitted reference range: 10*3/?L. The reference range was not used to interpret this result as normal/abnormal. NRBC/100 WBC (test code = 3480981444) 0.0 See_Comment [Automated [employer]coma ge] The system which generated this result transmitted reference range: 0.0 - 10.0 /100 WBCs. The reference range was not used to interpret this result as normal/abnormal. IPF % (test code = 5701318560) 12.8 % 1.2-10.7 H Platelet count measured by fluorescence method. Lab Interpretation (test code = 78902-8) [facility] 16:11:31* Test Item Value Reference Range Interpretation Comme nts PH (test code = 2) 7.45 7.35-7.45 PCO2 (test code = 3763689910) 34 See_Comment L [Automated [employer]] The system which generated this result transmitted reference range: 35 - 45 mmHg. The reference range was not used to interpret this result as normal/abnormal. PO2 (test code = 9838881157) 384 See_Comment H QUES [Automated message] The system which generated this result transmitted reference range: 80 - 100 mmHg. The reference range was not used to interpret this result as normal/abnormal. HCO3 (test code = 5525772622) 23 See_Comment [Automated messa ge] The system which generated this result transmitted reference range: 22 - 26 mEq/L. The reference range was not used to interpret this result as normal/abnormal. BE (test code = 4694865737) -1.1 See_Comment [Automated messa ge] The system which generated this result transmitted reference range: -3.0 - 3.0 mEq/L. The reference range was not used to interpret this result as normal/abnormal. Lab Interpretation (test code = 15605-9) Abnormal [facility] Arterial Blood Gas.2023-02-25 16:11:31* Test Item Value Reference Range Interpretation Comme nts PH (test code = 2) 7.45 7.35-7.45 PCO2 (test code = 8724705310) 34 See_Comment L [Automated messa ge] The system which generated this result transmitted reference range: 35 - 45 mmHg. The reference range was not used to interpret this result as normal/abnormal. PO2 (test code = 5313027449) 384 See_Comment H QUES [Automated message] The system which generated this result transmitted reference range: 80 - 100 mmHg. The reference range was not used to interpret this result as normal/abnormal. HCO3 (test code = 3970875347) 23 See_Comment [Automated messa ge] The system which generated this result transmitted reference range: 22 - 26 mEq/L. The reference range was not used to interpret this result as normal/abnormal. BE (test code = 1643472384) -1.1 See_Comment [Automated messa ge] The system which generated this result transmitted reference range: -3.0 - 3.0 mEq/L. The reference range was not used to interpret this result as normal/abnormal. Lab Interpretation (test code = 00048-2) Abnormal [facility] WITH [id number] 11:40:01* Test Item Value Reference Range Interpretation Comme nts WBC (test code = 6690-2) 14.58 See_Comment H [Automated messa ge] The system which generated this result transmitted reference range: 4.20 - 10.70 10*3/?L. The reference range was not used to interpret this result as normal/abnormal. RBC (test code = 789-8) 2.59 See_Comment L [Automated messa ge] The system which generated this result transmitted reference range: 4.26 - 5.52 10*6/?L. The reference range was not used to interpret this result as normal/abnormal. HGB (test code = 718-7) 8.1 g/dL 12.2-16.4 L HCT (test code = 4544-3) 24.8 % 38.4-49.3 L MCV (test code = 787-2) 95.8 fL 81.7-95.6 H MCH (test code = 785-6) 31.3 pg 26.1-32.7 MCHC (test code = 786-4) 32.7 g/dL 31.2-35.0 RDW-SD (test code = 56106-2) 67.8 fL 38.5-51.6 H RDW-CV (test code = 788-0) 19.4 % 12.1-15.4 H PLT (test code = 777-3) 46 See_Comment LL [Automated [employer]coma ge] The system which generated this result transmitted reference range: 150 - 328 10*3/?L. The reference range was not used to interpret this result as normal/abnormal. MPV (test code = 85971-9) 11.3 fL 9.8-13.0 IPF % (test code = 5895040297) 8.9 % 1.2-10.7 Platelet count measured by fluorescence method. NRBC/100 WBC (test code = 3209308935) 0.0 See_Comment [Automated [employer] ssage] The system which generated this result transmitted reference range: 0.0 - 10.0 /100 WBCs. The reference range was not used to interpret this result as normal/abnormal. NRBC x10^3 (test code = 5702973995) See_Comment [Automated [employer]coma ge] The system which generated this result transmitted reference range: 10*3/?L. The reference range was not used to interpret this result as normal/abnormal. GRAN MAT (NEUT) % (test code = 770-8) 75.9 % IMM GRAN % (test code = 4110945112) 1.00 % LYMPH % (test code = 736-9) 8.4 % MONO % (test code = 5905-5) 9.3 % EOS % (test code = 713-8) 5.1 % BASO % (test code = 706-2) 0.3 % GRAN MAT x10^3(ANC) (test code = 7627365989) 11.06 10*3/uL 1.99-6.95 H IMM GRAN x10^3 (test code = 0274926347) 0.15 10*3/uL 0.00-0.06 H LYMPH x10^3 (test code = 731-0) 1.22 10*3/uL 1.09-3.23 MONO x10^3 (test code = 742-7) 1.36 10*3/uL 0.36-1.02 H EOS x10^3 (test code = 711-2) 0.74 10*3/uL 0.06-0.53 H BASO x10^3 (test code = 704-7) 0.05 10*3/uL 0.01-0.09 Lab Interpretation (test code = 97591-6) [facility] 11:03:46* Test Item Value Reference Range Interpretation Comme nts MAGNESIUM (test code = 5734154586) 2.5 mg/dL 1.7-2.4 H Lab Interpretation (test cod e = 18984-2) [facility]normal [facility] (47670)2023-02-25 11:03:46* Test Item Value Reference Range Interpretation Comme nts NA (test code = 0533189116) 137 mmol/L 135-145 K (test code = 2728520511) 4.1 mmol/L 3.5-5.0 CL (test code = 1777159022) 104 mmol/L 98-108 CO2 TOTAL (test code = 9944283977) 20 mmol/L 23-31 L AGAP (test code = 6758712057) 13 2-16 BUN (test code = 9269868786) 24 mg/dL 7-23 H GLUCOSE (test code = 8483650020) 110 mg/dL 70-110 CREATININE (test code = 5533030370) 5.26 mg/dL 0.60-1.25 H TOTAL BILI (test code = 2322348843) 2.2 mg/dL 0.1-1.1 H CALCIUM (test code = 6238412058) 8.4 mg/dL 8.6-10.6 L T PROTEIN (test code = 9788900496) 6.6 g/dL 6.3-8.2 ALBUMIN (test code = 1357009760) 3.8 g/dL 3.5-5.0 ALK PHOS (test code = 1528368203) 214 U/L 34-122 H ALTv (test code = 1742-6) 45 U/L 5-50 AST(SGOT) (test code = 0718746956) 218 U/L 13-40 H eGFR (test code = 73491-5) 12.0 mL/min/1.73m2 CKD-EPI eGFR (2020). Assuming creatinine has been stable day-to-day for at least three months, the eGFR indicates Category G5 (<= 14mL/min/1.73 m2) Lab Interpretation (test code = 16058-7) [facility] 11:03:46* Test Item Value Reference Range Interpretation Comme nts PHOSPHORUS (test code = 8976477753) 2.9 mg/dL 2.5-5.0 Lab Interpretation (test cod e = 07795-2) [facility] (NA, K, CL, CO2, GLUCOSE, BUN, CREATININE, CA)2023-02-24 18:45:30* Test Item Value Reference Range Interpretation Comme nts NA (test code = 1271333024) 136 mmol/L 135-145 K (test code = 9471970849) 4.0 mmol/L 3.5-5.0 CL (test code = 7100172746) 102 mmol/L 98-108 CO2 TOTAL (test code = 1318701295) 19 mmol/L 23-31 L AGAP (test code = 7545820961) 15 2-16 BUN (test code = 6262984200) 32 mg/dL 7-23 H GLUCOSE (test code = 8404514519) 106 mg/dL 70-110 CREATININE (test code = 3675711363) 7.57 mg/dL 0.60-1.25 H CALCIUM (test code = 0792831049) 8.7 mg/dL 8.6-10.6 eGFR (test code = 41620-7) 7.8 mL/min/1.73m2 CKD-EPI eGFR (2020). Assuming creatinine has been stable day-to-day for at least three months, the eGFR indicates Category G5 (<= 14mL/min/1.73 m2) Lab Interpretation (test code = 96617-0) [facility]normal [facility] [id number] 11:01:20* Test Item Value Reference Range Interpretation Comme nts Blood Culture-Aerobic (test code = 87407-5) No organisms isolated No growth Previous preliminary verified result was Culture In Progress on 02/19/[address] [place], [place] [address]Previous preliminary verified result was No growth at 24 hours on 02/20/[address] [place], [place] [address]Previous preliminary verified result was No growth at 48 hours on 02/21/[address] [place], [place] [address]Previous preliminary verified result was No growth at 72 hours on 02/22/[address] [place] [address] Blood Culture-Anaerobic (test code = 87767-1) No organisms isolated No growth Previous preliminary verified result was Culture In Progress on 02/19/[address] [place], [place] [address]Previous preliminary verified result was No growth at 24 hours on 02/20/[address] [place], [place] [address]TPrevious preliminary verified result was No growth at 48 hours on 02/21/[address] [place], [place] [address]TPrevious preliminary verified result was No growth at 72 hours on 02/22/[address] [place], [place] [address] Lab Interpretation (test code = 23702-8) Normal [facility] WITH [id number] 10:50:27* Test Item Value Reference Range Interpretation Comme nts WBC (test code = 6690-2) 9.03 See_Comment [Automated messa ge] The system which generated this result transmitted reference range: 4.20 - 10.70 10*3/?L. The reference range was not used to interpret this result as normal/abnormal. RBC (test code = 789-8) 2.73 See_Comment L [Automated messa ge] The system which generated this result transmitted reference range: 4.26 - 5.52 10*6/?L. The reference range was not used to interpret this result as normal/abnormal. HGB (test code = 718-7) 8.5 g/dL 12.2-16.4 L HCT (test code = 4544-3) 25.4 % 38.4-49.3 L MCV (test code = 787-2) 93.0 fL 81.7-95.6 MCH (test code = 785-6) 31.1 pg 26.1-32.7 MCHC (test code = 786-4) 33.5 g/dL 31.2-35.0 RDW-SD (test code = 07007-4) 66.4 fL 38.5-51.6 H RDW-CV (test code = 788-0) 19.7 % 12.1-15.4 H PLT (test code = 777-3) 42 See_Comment LL [Automated [employer]coma ge] The system which generated this result transmitted reference range: 150 - 328 10*3/?L. The reference range was not used to interpret this result as normal/abnormal. MPV (test code = 69565-0) 10.3 fL 9.8-13.0 IPF % (test code = 5041814688) 8.1 % 1.2-10.7 Platelet count measured by fluorescence method. NRBC/100 WBC (test code = 2021606458) 0.0 See_Comment [Automated [employer] ssage] The system which generated this result transmitted reference range: 0.0 - 10.0 /100 WBCs. The reference range was not used to interpret this result as normal/abnormal. NRBC x10^3 (test code = 8095329472) See_Comment [Automated [employer]coma ge] The system which generated this result transmitted reference range: 10*3/?L. The reference range was not used to interpret this result as normal/abnormal. GRAN MAT (NEUT) % (test code = 770-8) 66.1 % IMM GRAN % (test code = 5288254299) 0.80 % LYMPH % (test code = 736-9) 13.2 % MONO % (test code = 5905-5) 10.2 % EOS % (test code = 713-8) 9.3 % BASO % (test code = 706-2) 0.4 % GRAN MAT x10^3(ANC) (test code = 3083692814) 5.97 10*3/uL 1.99-6.95 IMM GRAN x10^3 (test code = 0225690527) 0.07 10*3/uL 0.00-0.06 H LYMPH x10^3 (test code = 731-0) 1.19 10*3/uL 1.09-3.23 MONO x10^3 (test code = 742-7) 0.92 10*3/uL 0.36-1.02 EOS x10^3 (test code = 711-2) 0.84 10*3/uL 0.06-0.53 H BASO x10^3 (test code = 704-7) 0.04 10*3/uL 0.01-0.09 Lab Interpretation (test code = 20852-7) [facility] 10:30:39* Test Item Value Reference Range Interpretation Comme nts MAGNESIUM (test code = 0241520500) 2.6 mg/dL 1.7-2.4 H Lab Interpretation (test cod e = 81246-7) [facility]normal [facility] (91361)2023-02-24 10:30:39* Test Item Value Reference Range Interpretation Comme nts NA (test code = 8474849813) 135 mmol/L 135-145 K (test code = 0724666789) 4.2 mmol/L 3.5-5.0 CL (test code = 0526491560) 102 mmol/L 98-108 CO2 TOTAL (test code = 1681674301) 19 mmol/L 23-31 L AGAP (test code = 4498931807) 14 2-16 BUN (test code = 8288359090) 31 mg/dL 7-23 H GLUCOSE (test code = 1882412458) 110 mg/dL 70-110 CREATININE (test code = 6025707037) 7.39 mg/dL 0.60-1.25 H TOTAL BILI (test code = 8502909526) 2.2 mg/dL 0.1-1.1 H CALCIUM (test code = 0452880969) 9.1 mg/dL 8.6-10.6 T PROTEIN (test code = 4341938045) 7.0 g/dL 6.3-8.2 ALBUMIN (test code = 1560111565) 4.1 g/dL 3.5-5.0 ALK PHOS (test code = 3911926520) 218 U/L 34-122 H ALTv (test code = 1742-6) 53 U/L 5-50 H AST(SGOT) (test code = 9414684756) 242 U/L 13-40 H eGFR (test code = 38555-8) 8.0 mL/min/1.73m2 CKD-EPI eGFR (2020). Assuming creatinine has been stable day-to-day for at least three months, the eGFR indicates Category G5 (<= 14mL/min/1.73 m2) Lab Interpretation (test code = 70136-3) [facility]normal [facility]2023[facility] 10:30:39* Test Item Value Reference Range Interpretation Comme nts PHOSPHORUS (test code = 9321751128) 3.6 mg/dL 2.5-5.0 Lab Interpretation (test cod e = 99255-8) Normal [facility] (NA, K, CL, CO2, GLUCOSE, BUN, CREATININE, CA)2023-02-24 10:30:39* Test Item Value Reference Range Interpretation Comme nts NA (test code = 7761011128) 135 mmol/L 135-145 K (test code = 9933354231) 4.2 mmol/L 3.5-5.0 CL (test code = 5598286260) 102 mmol/L 98-108 CO2 TOTAL (test code = 0921206763) 19 mmol/L 23-31 L AGAP (test code = 1913043485) 14 2-16 BUN (test code = 6832477333) 31 mg/dL 7-23 H GLUCOSE (test code = 2089633686) 110 mg/dL 70-110 CREATININE (test code = 2244146065) 7.39 mg/dL 0.60-1.25 H CALCIUM (test code = 8386288188) 9.1 mg/dL 8.6-10.6 eGFR (test code = 76977-9) 8.0 mL/min/1.73m2 CKD-EPI eGFR (2020). Assuming creatinine has been stable day-to-day for at least three months, the eGFR indicates Category G5 (<= 14mL/min/1.73 m2)CKD-EPI eGFR (2020). Assuming creatinine has been stable day-to-day for at least three months, the eGFR indicates Category G5 (<= 14mL/min/1.73 m2) Lab Interpretation (test code = 78301-1) [facility]normal [facility] 20 + Lactic [id number] 21:58:55* Test Item Value Reference Range Interpretation Comme nts PH (test code = 2) 7.47 7.35-7.45 H PCO2 (test code = 1412445860) 30 See_Comment L [Automated messa ge] The system which generated this result transmitted reference range: 35 - 45 mmHg. The reference range was not used to interpret this result as normal/abnormal. PO2 (test code = 7823787134) 96 See_Comment [Automated messa ge] The system which generated this result transmitted reference range: 80 - 100 mmHg. The reference range was not used to interpret this result as normal/abnormal. HCO3 (test code = 4296847809) 21 See_Comment L [Automated messa ge] The system which generated this result transmitted reference range: 22 - 26 mEq/L. The reference range was not used to interpret this result as normal/abnormal. BE (test code = 1915518934) -2.1 See_Comment [Automated messa ge] The system which generated this result transmitted reference range: -3.0 - 3.0 mEq/L. The reference range was not used to interpret this result as normal/abnormal. THB (test code = 5004601214) 10.5 g/dL 13.5-18.0 L %O2HB (test code = 1411596644) 97.4 % 94.0-99.0 %COHB ART (test code = 8291317256) 0.3 % 0.0-1.5 %METHB ART (test code = 9582349814) 0.0 % 0.4-1.5 L VOL%O2 ART (test code = 1454624465) 14.5 % 15.0-23.0 L NA (test code = 2165577617) 131 mmol/L 135-145 L K+ (test code = 9416601323) 3.9 mmol/L 3.5-5.0 AC CA IONZ (test code = 1139442988) 4.50 mg/dL 4.50-5.30 GLUCOSE (test code = 5104314207) 100 mg/dL 70-110 LACTIC ACID (test code = 6071106733) 1.70 mmol/L 0.50-2.20 QUES Lab Interpretation (test code = 10394-3) [facility]normal [facility] + Lactic [id number] 16:28:05* Test Item Value Reference Range Interpretation Comme nts PH (test code = 2) 7.53 7.35-7.45 H PCO2 (test code = 7349620643) 26 See_Comment L [Automated messa ge] The system which generated this result transmitted reference range: 35 - 45 mmHg. The reference range was not used to interpret this result as normal/abnormal. PO2 (test code = 7827501319) 87 See_Comment [Automated messa ge] The system which generated this result transmitted reference range: 80 - 100 mmHg. The reference range was not used to interpret this result as normal/abnormal. HCO3 (test code = 2066970904) 21 See_Comment L [Automated messa ge] The system which generated this result transmitted reference range: 22 - 26 mEq/L. The reference range was not used to interpret this result as normal/abnormal. BE (test code = [id number]) -0.9 See_Comment [Automated messa ge] The system which generated this result transmitted reference range: -3.0 - 3.0 mEq/L. The reference range was not used to interpret this result as normal/abnormal. THB (test code = [id number]) 10.0 g/dL 13.5-18.0 L %O2HB (test code = [id number]) 97.2 % 94.0-99.0 %COHB ART (test code = [id number]) 0.3 % 0.0-1.5 %METHB ART (test code = 9110609231) 0.1 % 0.4-1.5 L VOL%O2 ART (test code = 7597298836) 13.8 % 15.0-23.0 L NA (test code = 8974041272) 129 mmol/L 135-145 L K+ (test code = 8399818727) 3.8 mmol/L 3.5-5.0 AC CA IONZ (test code = 4954413816) 4.20 mg/dL 4.50-5.30 L GLUCOSE (test code = 8528907065) 101 mg/dL 70-110 LACTIC ACID (test code = 7018759334) 1.62 mmol/L 0.50-2.20 Lab Interpretation (test code = 38936-8) [facility]54:26* Test Item Value Reference Range Interpretation Comme nts MAGNESIUM (test code = 9382618843) 2.2 mg/dL 1.7-2.4 Lab Interpretation (test cod e = 89978-2) Normal [facility]. METABOLIC PANEL (71437)2023-02-22 10:54:25* Test Item Value Reference Range Interpretation Comme nts NA (test code = 8800770661) 130 mmol/L 135-145 L K (test code = 7681145900) 3.8 mmol/L 3.5-5.0 CL (test code = 5721047157) 99 mmol/L 98-108 CO2 TOTAL (test code = 3879503791) 20 mmol/L 23-31 L AGAP (test code = 0308691927) 11 2-16 BUN (test code = 0931572118) 17 mg/dL 7-23 GLUCOSE (test code = 3044297935) 107 mg/dL 70-110 CREATININE (test code = 8982750362) 3.96 mg/dL 0.60-1.25 H TOTAL BILI (test code = 9718454127) 2.5 mg/dL 0.1-1.1 H CALCIUM (test code = 4744983590) 7.8 mg/dL 8.6-10.6 L T PROTEIN (test code = 5778207531) 6.7 g/dL 6.3-8.2 ALBUMIN (test code = 7918156177) 3.5 g/dL 3.5-5.0 ALK PHOS (test code = 9062272020) 332 U/L 34-122 H ALTv (test code = 1742-6) 73 U/L 5-50 H AST(SGOT) (test code = 2493239995) 405 U/L 13-40 H eGFR (test code = 50191-4) 16.9 mL/min/1.73m2 CKD-EPI eGFR (2020). Assuming creatinine has been stable day-to-day for at least three months, the eGFR indicates Category G4 (15 - 29 mL/min/1.73 m2) Lab Interpretation (test code = 81415-2) [facility]normal [facility].2023-02-21 22:56:14* Test Item Value Reference Range Interpretation Comme nts PH (test code = 2) 7.40 7.35-7.45 PCO2 (test code = 9728607387) 34 See_Comment L [Automated messa ge] The system which generated this result transmitted reference range: 35 - 45 mmHg. The reference range was not used to interpret this result as normal/abnormal. PO2 (test code = 2835848347) 108 See_Comment H QUES [Automated message] The system which generated this result transmitted reference range: 80 - 100 mmHg. The reference range was not used to interpret this result as normal/abnormal. HCO3 (test code = 1651580016) 21 See_Comment L [Automated messa ge] The system which generated this result transmitted reference range: 22 - 26 mEq/L. The reference range was not used to interpret this result as normal/abnormal. BE (test code = 7202773278) -3.5 See_Comment L [Automated messa ge] The system which generated this result transmitted reference range: -3.0 - 3.0 mEq/L. The reference range was not used to interpret this result as normal/abnormal. Lab Interpretation (test code = 25204-6) [facility]normal [facility]2023-02-21 22:32:50* Test Item Value Reference Range Interpretation Comme nts Height (test code = 9237263697) 69 in Weight (test code = 2523228382) 206 lbs Systolic BP (test code = 2602141762) 154 mmHg Diastolic BP (test code = 6021206955) 90 mmHg Heart Rate (test code = 9252944075) 98 bpm LVOT stroke volume (test code = 7277435370) 88.00 cm3 EF(Teich) (test code = 1624120833) 57.60 % LVIDD (test code = 0544415141) 6.30 cm LVIDS (test code = 3602466935) 4.30 cm Left Ventricular End Systolic Volume by Teichholz Method (test code = 7352039) 84.8 mL Left Ventricular End Diastolic Volume by Teichholz Method (test code = 8986181) 200.1 mL IVS (test code = 0981298492) 1.34 cm LVPWD (test code = 4207515784) 1.16 cm LVOT diameter (test code = 8397936786) 2.19 cm LVOT area (test code = 1076959999) 3.80 cm2 FS (test code = 8412296521) 31 % MV Peak E Cy (test code = 7266464802) 136.7 cm/s MV Peak A Cy (test code = 6298099730) 93.0 cm/s E/A ratio (test code = 7178788328) 1.47 ratio E wave decelartion time (test code = 4951253290) 0.10 s LA Volume Index (BP) (test code = 3476102569) 40.1 mL/m2 LA volume (BP) (test code = 9227772377) 84.0 mL LVOT peak cy (test code = 1601611682) 133.8 cm/s LVOT mn grad (test code = 0235836324) 3.9 mmHg BSA (test code = 9920547767) 2.09 m2 LA size (test code = 3209329013) 5.2 cm LAV(MOD-sp2) (test code = 0922315018) 68.20 mL LAV(MOD-sp4) (test code = 2386501515) 68.10 mL Tapse (test code = 0278342431) 2.29 cm Ao peak cy (test code = 2017622304) 186.8 cm/s AV LVOT peak gradient (test code = 8833961373) 7.2 mmHg LVOT peak VTI (test code = 2362876171) 23.4 cm AV area peak cy (test code = 8804670085) 2.7 cm2 LV V1 mean (test code = 3520531781) 94.40 cm/s Ao max PG (test code = 6299813771) 14.00 mm[Hg] MV Prop V (test code = 8144543645) 32.40 cm/s Ao root diam (test code = 9769655758) 3.70 cm AV peak gradient (test code = 8177977123) 14.0 mmHg Aortic root (test code = 3246722184) 3.7 cm Ao root annulus (test code = 5645293797) 3.7 cm PW (test code = 3005220678) 1.16 cm 0.6-1.1 EF - 2D (test code = 86353579) 57.60 % Interventricular Septum Diastolic Thickness by 2D (test code = 1535708) 1.34 cm TR Peak Cy (test code = 8239929337) 136.8 cm/s Triscuspid Valve Regurgitation Peak Gradient (test code = 2121313911) 7.5 mmHg TASV (test code = 5747481474) 15.1 cm/s A2C EF (test code = 6416207563) 58.70 % EF(sp2-el) (test code = 5888588101) 60.40 % SV(MOD-sp2) (test code = 7885989311) 85.90 mL LV Diastolic Volume (BP) (test code = 2050798347) 146.0 mL A4C EF (test code = 9290324307) 52.90 % EF(MOD-bp) (test code = 9435911389) 54.70 % EF(sp4-el) (test code = 3387255869) 53.60 % LV Systolic Volume (BP) (test code = 9167118783) 66.2 mL SV(MOD-bp) (test code = 6387677130) 79.80 mL SV(MOD-sp4) (test code = 4571637621) 75.70 mL SV(sp4-el) (test code = 0156549827) 75.90 mL EF (test code = 7180522210) 55 Left Ventricular Stroke Volume by 2-D Biplane-MOD (test code = 9064459) 79.8 mL LV Diastolic Volume Index (BP) (test code = 1585718129) 69.9 mL/m2 LV Systolic Volume Index (BP) (test code = 0434856509) 31.7 mL/m2 Radiology Study observation (narrative) (test code = 79578-6) BOBBY (test code = BOBBY) ?Left?Ventricle: Left ventricle is mildly dilated. Mildly increased wall thickness. There is mild eccentric hypertrophy. 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 Low normal systolic function with a visually estimated EF of 50 - 55%. Diastolic dysfunction. ?Aorta: Mildly enlarged ascending aorta. Measures 4 cm and index 1.9 cm/m2 ?Right?Ventricle: Right ventricle size is normal. Normal systolic function. TAPSE is 2.29 cm. TDI-derived tricuspid annular systolic velocity (TDI S') is 15.1 cm/s. Left VentricleLeft ventricle is mildly dilated. Mildly increased wall thickness. There is mild eccentric hypertrophy. 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 Low normal systolic function with a visually estimated EF of 50 - 55%. Diastolic dysfunction.Right VentricleRight ventricle size is normal. Normal systolic function. TAPSE is 2.29 cm. TDI-derived tricuspid annular systolic velocity (TDI S') is 15.1 cm/s.Left AtriumLeft atrium is mildly dilated. Left atrium volume index is 40.1 mL/m2.Right AtriumRight atrium size is normal.IVC/SVCIVC diameter is less than or equal to 21 mm and decreases less than 50% during inspiration; therefore the estimated right atrial pressure is intermediate (~8 mmHg).Mitral ValveMitral valve structure is normal. Trace transvalvular regurgitation. No stenosis.Tricuspid ValveTricuspid valve structure is normal. Trace transvalvular regurgitation. Insufficient tricuspid regurgitation jet to estimate RVSP . RA pressure is 5-10 mmHg. No stenosis.Aortic ValveAortic valve structure is normal. Trace transvalvular regurgitation. No hemodynamically significant .Pulmonic ValveNot well visualized.Ascending AortaMildly enlarged ascending aorta. Measures 4 cm and index 1.9 cm/v8EmxylukujbcBhb pericardium is normal. No pericardial effusion.Study DetailsStudy quality was adequate. A complete echocardiogram was performed using 2D, color flow Doppler and spectral Doppler. The apical, parasternal and subcostal views were obtained. 5 mL of Lumason ultrasound enhancing agent used. Patient exhibited sinus tachycardia and left bundle branch block.Wall Scoring BaselineScore Index: 1.29The following segments are hypokinetic: apical anterior, apical septal, apical inferior, apical lateral and apex.All other segments are normal. [facility] + Lactic [id number] 20:41:00* Test Item Value Reference Range Interpretation Comme nts PH (test code = 2) 7.15 7.35-7.45 LL PCO2 (test code = 2877248212) 73 See_Comment H [Automated messa ge] The system which generated this result transmitted reference range: 35 - 45 mmHg. The reference range was not used to interpret this result as normal/abnormal. PO2 (test code = 4034671292) 147 See_Comment H [Automated messa ge] The system which generated this result transmitted reference range: 80 - 100 mmHg. The reference range was not used to interpret this result as normal/abnormal. HCO3 (test code = 7031337424) 25 See_Comment [Automated messa ge] The system which generated this result transmitted reference range: 22 - 26 mEq/L. The reference range was not used to interpret this result as normal/abnormal. BE (test code = 4535629602) -4.7 See_Comment L [Automated messa ge] The system which generated this result transmitted reference range: -3.0 - 3.0 mEq/L. The reference range was not used to interpret this result as normal/abnormal. THB (test code = 4551202179) 10.1 g/dL 13.5-18.0 L %O2HB (test code = 8913477876) 98.4 % 94.0-99.0 %COHB ART (test code = 6295564876) 0.2 % 0.0-1.5 %METHB ART (test code = 1807798668) 0.2 % 0.4-1.5 L VOL%O2 ART (test code = 6356590675) 14.3 % 15.0-23.0 L NA (test code = 6398350799) 129 mmol/L 135-145 L K+ (test code = 8860017809) 4.4 mmol/L 3.5-5.0 AC CA IONZ (test code = 6341303883) 4.20 mg/dL 4.50-5.30 L GLUCOSE (test code = 1676818950) 159 mg/dL 70-110 H LACTIC ACID (test code = 0584737525) 1.02 mmol/L 0.50-2.20 QUES Lab Interpretation (test code = 15540-3) [facility]normal [facility] + Lactic [id number] 17:21:48* Test Item Value Reference Range Interpretation Comme nts PH (test code = 2) 7.25 7.35-7.45 L PCO2 (test code = 3608695010) 56 See_Comment H [Automated messa ge] The system which generated this result transmitted reference range: 35 - 45 mmHg. The reference range was not used to interpret this result as normal/abnormal. PO2 (test code = 8898460858) 103 See_Comment H [Automated messa ge] The system which generated this result transmitted reference range: 80 - 100 mmHg. The reference range was not used to interpret this result as normal/abnormal. HCO3 (test code = 3744417870) 24 See_Comment [Automated messa ge] The system which generated this result transmitted reference range: 22 - 26 mEq/L. The reference range was not used to interpret this result as normal/abnormal. BE (test code = 4572370123) -4.0 See_Comment L [Automated messa ge] The system which generated this result transmitted reference range: -3.0 - 3.0 mEq/L. The reference range was not used to interpret this result as normal/abnormal. THB (test code = 5532734249) 11.0 g/dL 13.5-18.0 L %O2HB (test code = 4291474524) 96.9 % 94.0-99.0 %COHB ART (test code = 5300232973) 0.3 % 0.0-1.5 %METHB ART (test code = 7194750945) 0.3 % 0.4-1.5 L VOL%O2 ART (test code = 9833412361) 15.1 % 15.0-23.0 NA (test code = 8450982062) 130 mmol/L 135-145 L K+ (test code = 0936975938) 4.1 mmol/L 3.5-5.0 AC CA IONZ (test code = 3764332498) 4.10 mg/dL 4.50-5.30 L GLUCOSE (test code = 4932361622) 146 mg/dL 70-110 H LACTIC ACID (test code = 7093919130) 1.23 mmol/L 0.50-2.20 QUES Lab Interpretation (test code = 73481-9) [facility]normal [facility] (34456) (ALB,T.PRO,BILI T,BU/BC,ALT,AST,ALK PHOS)2023-02-21 11:23:27* Test Item Value Reference Range Interpretation Comme nts TOTAL BILI (test code = 9050426408) 2.3 mg/dL 0.1-1.1 H BILI UNCON (test code = 1572860521) 0.6 mg/dL 0.1-1.1 BILI CONJ (test code = 9926328570) 0.0 mg/dL 0.0-0.3 T PROTEIN (test code = 3400832608) 7.4 g/dL 6.3-8.2 ALBUMIN (test code = 4844580449) 4.1 g/dL 3.5-5.0 ALK PHOS (test code = 9423635324) 334 U/L 34-122 H ALTv (test code = 1742-6) 86 U/L 5-50 H AST(SGOT) (test code = 2263086431) 403 U/L 13-40 H Lab Interpretation (test cod e = 80570-4) [facility]normal [facility]CBC WITH [id number] 11:23:27* Test Item Value Reference Range Interpretation Comme nts WBC (test code = 6690-2) 9.36 See_Comment [Automated messa ge] The system which generated this result transmitted reference range: 4.20 - 10.70 10*3/?L. The reference range was not used to interpret this result as normal/abnormal. RBC (test code = 789-8) 2.87 See_Comment L [Automated messa ge] The system which generated this result transmitted reference range: 4.26 - 5.52 10*6/?L. The reference range was not used to interpret this result as normal/abnormal. HGB (test code = 718-7) 9.0 g/dL 12.2-16.4 L HCT (test code = 4544-3) 27.4 % 38.4-49.3 L MCV (test code = 787-2) 95.5 fL 81.7-95.6 MCH (test code = 785-6) 31.4 pg 26.1-32.7 MCHC (test code = 786-4) 32.8 g/dL 31.2-35.0 RDW-SD (test code = 90079-0) 63.8 fL 38.5-51.6 H RDW-CV (test code = 788-0) 18.5 % 12.1-15.4 H PLT (test code = 777-3) 56 See_Comment L [Automated [employer] ge] The system which generated this result transmitted reference range: 150 - 328 10*3/?L. The reference range was not used to interpret this result as normal/abnormal. MPV (test code = 83781-1) 11.0 fL 9.8-13.0 IPF % (test code = 7773461921) 7.4 % 1.2-10.7 Platelet count measured by fluorescence method. NRBC/100 WBC (test code = 8757365212) 0.0 See_Comment [Automated [employer] ssage] The system which generated this result transmitted reference range: 0.0 - 10.0 /100 WBCs. The reference range was not used to interpret this result as normal/abnormal. NRBC x10^3 (test code = 2314668929) See_Comment [Automated [employer] ge] The system which generated this result transmitted reference range: 10*3/?L. The reference range was not used to interpret this result as normal/abnormal. GRAN MAT (NEUT) % (test code = 770-8) 88.2 % IMM GRAN % (test code = 3253638987) 0.70 % LYMPH % (test code = 736-9) 3.4 % MONO % (test code = 5905-5) 7.3 % EOS % (test code = 713-8) 0.3 % BASO % (test code = 706-2) 0.1 % GRAN MAT x10^3(ANC) (test code = 3723668489) 8.25 10*3/uL 1.99-6.95 H IMM GRAN x10^3 (test code = 8522041334) 0.07 10*3/uL 0.00-0.06 H LYMPH x10^3 (test code = 731-0) 0.32 10*3/uL 1.09-3.23 L MONO x10^3 (test code = 742-7) 0.68 10*3/uL 0.36-1.02 EOS x10^3 (test code = 711-2) 0.03 10*3/uL 0.06-0.53 L BASO x10^3 (test code = 704-7) 0.01-0.09 Lab Interpretation (test code = 57952-7) Abnormal [facility] METABOLIC PANEL (NA, K, CL, CO2, GLUCOSE, BUN, CREATININE, CA)2023-02-21 11:23:27* Test Item Value Reference Range Interpretation Comme nts NA (test code = 4608545304) 131 mmol/L 135-145 L K (test code = 4756705564) 4.2 mmol/L 3.5-5.0 CL (test code = 6477988917) 96 mmol/L 98-108 L CO2 TOTAL (test code = 8480516124) 22 mmol/L 23-31 L AGAP (test code = 7959182136) 13 2-16 BUN (test code = 4471489783) 21 mg/dL 7-23 GLUCOSE (test code = 5765636204) 158 mg/dL 70-110 H CREATININE (test code = 0208420832) 3.61 mg/dL 0.60-1.25 H CALCIUM (test code = 9094079740) 7.2 mg/dL 8.6-10.6 L eGFR (test code = 03848-6) 17.6 mL/min/1.73m2 BOBBY (test code = BOBBY) Association of Glomerular Filtration Rate (GFR) and Staging of Kidney Disease* + --+ --+ ------+| GFR (mL/min/1.73 m2) ?| With Kidney Damage ?| ?Without Kidney Damage+ --------+ --------+ +| ?>90 ?| ?Stage one ?| ? Normal ?+ ---+ ---+ -------+| ?60-89 ?| ?Stage two ?| ? Decreased GFR ? + --+ --+ ------+| ?30-59 ?| ?Stage three ?| ? Stage three ? + --+ --+ ------+| ?15-29 ?| ?Stage four ? | ? Stage four ?+ ---+ ---+ -------+| ?<15 (or dialysis) ? ?| ?Stage five ? | ? Stage five ?+ ---+ ---+ -------+ *Each stage assumes the associated GFR level has been in effect for at least three months. ?Stages 1 to 5, with or without kidney disease, indicate chronic kidney disease. Notes: Determination of stages one and two (with eGFR >59mL/min/1.73 m2) requires estimation of kidney damage for at least three months as defined by structural or functional abnormalities of the kidney, manifested by either:Pathological abnormalities or Markers of kidney damage (including abnormalities in the composition of the blood or urine or abnormalities in imaging tests). Lab Interpretation (test code = 29924-8) [facility]normal [facility] (79439[facility] (ALB,T.PRO,BILI T,BU/BC,ALT,AST,ALK PHOS)2023-02-21 11:23:27* Test Item Value Reference Range Interpretation Comme [facility] TOTAL BILI (test code = 8328258165) 2.3 mg/dL 0.1-1.1 H BILI UNCON (test code = 6303041337) 0.6 mg/dL 0.1-1.1 BILI CONJ (test code = 6448796187) 0.0 mg/dL 0.0-0.3 T PROTEIN (test code = 4301940032) 7.4 g/dL 6.3-8.2 ALBUMIN (test code = 8307224499) 4.1 g/dL 3.5-5.0 ALK PHOS (test code = 3380156133) 334 U/L 34-122 H ALTv (test code = 1742-6) 86 U/L 5-50 H AST(SGOT) (test code = 4965468829) 403 U/L 13-40 H Lab Interpretation (test cod e = 83999-8) Abnormal [facility] HospitalProthrom[facility] Time / [id number] 11:08:05* Test Item Value Reference Range Interpretation Comme nts PROTIME PATIENT (test code = 5964-2) 13.8 See_Comment H [Automated [employer]] The system which generated this result transmitted reference range: 10.1 - 12.6 Seconds. The reference range was not used to interpret this result as normal/abnormal. INR (test code = 6301-6) 1.2 Normal INR <1.1; Warfarin Therapeutic range 2.0 to 3.0 or 2.5 to 3.5, depending upon the indications. Lab Interpretation (test code = 62775-7) [facility] WITH [id number] 04:10:12* Test Item Value Reference Range Interpretation Comme nts HIV Semi-quantitative (test code = 46093-0) 0.12 Negative BOBBY (test code = BOBBY) Non-reactive for HIV-1 antigen and HIV-1/HIV-2 antibodies. ?No laboratory evidence of HIV infection. ?Repeat in 2-4 weeks if acute HIV infection is suspected. [facility] WITH [id number] 04:10:12* Test Item Value Reference Range Interpretation Comme nts HIV Semi-quantitative (test code = 05908-1) 0.12 Negative BOBBY (test code = BOBBY) Non-reactive for HIV-1 antigen and HIV-1/HIV-2 antibodies. ?No laboratory evidence of HIV infection. ?Repeat in 2-4 weeks if acute HIV infection is suspected. [facility] + Lactic [id number] 20:02:14* Test Item Value Reference Range Interpretation Comme nts PH (test code = 2) 7.26 7.35-7.45 L PCO2 (test code = 4717547466) 48 See_Comment H [Automated messa ge] The system which generated this result transmitted reference range: 35 - 45 mmHg. The reference range was not used to interpret this result as normal/abnormal. PO2 (test code = 9121882792) 86 See_Comment [Automated messa ge] The system which generated this result transmitted reference range: 80 - 100 mmHg. The reference range was not used to interpret this result as normal/abnormal. HCO3 (test code = 1742675261) 21 See_Comment L [Automated messa ge] The system which generated this result transmitted reference range: 22 - 26 mEq/L. The reference range was not used to interpret this result as normal/abnormal. BE (test code = 9217347602) -6.0 See_Comment L [Automated messa ge] The system which generated this result transmitted reference range: -3.0 - 3.0 mEq/L. The reference range was not used to interpret this result as normal/abnormal. THB (test code = 2292304776) 12.6 g/dL 13.5-18.0 L %O2HB (test code = 3163294120) 94.9 % 94.0-99.0 %COHB ART (test code = 1113977688) 0.4 % 0.0-1.5 %METHB ART (test code = 5756785370) 0.2 % 0.4-1.5 L VOL%O2 ART (test code = 5530813796) 16.9 % 15.0-23.0 NA (test code = 3401238288) 126 mmol/L 135-145 L K+ (test code = 0347994649) 4.2 mmol/L 3.5-5.0 AC CA IONZ (test code = 6741659509) 3.80 mg/dL 4.50-5.30 L GLUCOSE (test code = 1037945594) 161 mg/dL 70-110 H LACTIC ACID (test code = 2449133970) 1.23 mmol/L 0.50-2.20 QUES Lab Interpretation (test code = 77187-2) Abnormal [facility] METABOLIC PANEL (NA, K, CL, CO2, GLUCOSE, BUN, CREATININE, CA)2023-02-20 19:11:54* Test Item Value Reference Range Interpretation Comme nts NA (test code = 9245440393) 127 mmol/L 135-145 L K (test code = 2483147010) 4.4 mmol/L 3.5-5.0 CL (test code = 7857167519) 94 mmol/L 98-108 L CO2 TOTAL (test code = 9551348500) 21 mmol/L 23-31 L AGAP (test code = 0431004709) 12 2-16 BUN (test code = 3814052596) 36 mg/dL 7-23 H GLUCOSE (test code = 1374268767) 160 mg/dL 70-110 H CREATININE (test code = 1815466695) 5.68 mg/dL 0.60-1.25 H CALCIUM (test code = 5172108768) 6.9 mg/dL 8.6-10.6 L eGFR (test code = 88979-6) 10.4 mL/min/1.73m2 BOBBY (test code = BOBBY) Association of Glomerular Filtration Rate (GFR) and Staging of Kidney Disease* + --+ --+ ------+| GFR (mL/min/1.73 m2) ?| With Kidney Damage ?| ?Without Kidney Damage+ --------+ --------+ +| ?>90 ?| ?Stage one ?| ? Normal ?+ ---+ ---+ -------+| ?60-89 ?| ?Stage two ?| ? Decreased GFR ? + --+ --+ ------+| ?30-59 ?| ?Stage three ?| ? Stage three ? + --+ --+ ------+| ?15-29 ?| ?Stage four ? | ? Stage four ?+ ---+ ---+ -------+| ?<15 (or dialysis) ? ?| ?Stage five ? | ? Stage five ?+ ---+ ---+ -------+ *Each stage assumes the associated GFR level has been in effect for at least three months. ?Stages 1 to 5, with or without kidney disease, indicate chronic kidney disease. Notes: Determination of stages one and two (with eGFR >59mL/min/1.73 m2) requires estimation of kidney damage for at least three months as defined by structural or functional abnormalities of the kidney, manifested by either:Pathological abnormalities or Markers of kidney damage (including abnormalities in the composition of the blood or urine or abnormalities in imaging tests). Lab Interpretation (test code = 16117-5) Abnormal [facility], [id number] 19:07:13* Test Item Value Reference Range Interpretation Comme nts AMMONIA (test code = 6181943786) 39 umol/L 9-33 H Lab Interpretation (test cod e = 02691-2) Abnormal [facility] GLUCOSE (AUTOMATED)2023-02-20 16:14:29* Test Item Value Reference Range Interpretation Comme [facility] POCT GLU (test code = 3231117668) 154 mg/dL 70-110 H Lab Interpretation (test cod e = 43732-2) Abnormal [facility] GLUCOSE (AUTOMATED)2023-02-20 16:14:29* Test Item Value Reference Range Interpretation Comme nts POCT GLU (test code = 7997065137) 154 mg/dL 70-110 H Lab Interpretation (test cod e = 13649-4) Abnormal [facility] WITH [id number] 10:35:29* Test Item Value Reference Range Interpretation Comme nts WBC (test code = 6690-2) 8.51 See_Comment [Automated messa ge] The system which generated this result transmitted reference range: 4.20 - 10.70 10*3/?L. The reference range was not used to interpret this result as normal/abnormal. RBC (test code = 789-8) 2.94 See_Comment L [Automated messa ge] The system which generated this result transmitted reference range: 4.26 - 5.52 10*6/?L. The reference range was not used to interpret this result as normal/abnormal. HGB (test code = 718-7) 9.2 g/dL 12.2-16.4 L HCT (test code = 4544-3) 26.5 % 38.4-49.3 L MCV (test code = 787-2) 90.1 fL 81.7-95.6 MCH (test code = 785-6) 31.3 pg 26.1-32.7 MCHC (test code = 786-4) 34.7 g/dL 31.2-35.0 RDW-SD (test code = 08725-3) 59.2 fL 38.5-51.6 H RDW-CV (test code = 788-0) 18.0 % 12.1-15.4 H PLT (test code = 777-3) 104 See_Comment L [Automated messa ge] The system which generated this result transmitted reference range: 150 - 328 10*3/?L. The reference range was not used to interpret this result as normal/abnormal. MPV (test code = 02501-2) 11.3 fL 9.8-13.0 IPF % (test code = 5879594361) 6.3 % 1.2-10.7 Platelet count measured by fluorescence method. NRBC/100 WBC (test code = 8218687428) 0.0 See_Comment [Automated [employer] ssage] The system which generated this result transmitted reference range: 0.0 - 10.0 /100 WBCs. The reference range was not used to interpret this result as normal/abnormal. NRBC x10^3 (test code = 2931225137) See_Comment [Automated messa ge] The system which generated this result transmitted reference range: 10*3/?L. The reference range was not used to interpret this result as normal/abnormal. GRAN MAT (NEUT) % (test code = 770-8) 88.6 % IMM GRAN % (test code = 1399064971) 0.80 % LYMPH % (test code = 736-9) 4.6 % MONO % (test code = 5905-5) 4.9 % EOS % (test code = 713-8) 0.9 % BASO % (test code = 706-2) 0.2 % GRAN MAT x10^3(ANC) (test code = 6040043766) 7.53 10*3/uL 1.99-6.95 H IMM GRAN x10^3 (test code = 6373039305) 0.07 10*3/uL 0.00-0.06 H LYMPH x10^3 (test code = 731-0) 0.39 10*3/uL 1.09-3.23 L MONO x10^3 (test code = 742-7) 0.42 10*3/uL 0.36-1.02 EOS x10^3 (test code = 711-2) 0.08 10*3/uL 0.06-0.53 BASO x10^3 (test code = 704-7) 0.01-0.09 Lab Interpretation (test code = 36010-0) [facility]:26:22* Test Item Value Reference Range Interpretation Comme nts PHOSPHORUS (test code = 5697392563) 6.4 mg/dL 2.5-5.0 H Lab Interpretation (test cod e = 29387-4) [facility] 10:26:22* Test Item Value Reference Range Interpretation Comme nts MAGNESIUM (test code = 9117465450) 2.1 mg/dL 1.7-2.4 Lab Interpretation (test cod e = 97733-8) Normal [facility] (NA, K, CL, CO2, GLUCOSE, BUN, CREATININE, CA)2023-02-20 10:26:22* Test Item Value Reference Range Interpretation Comme nts NA (test code = 5494757993) 125 mmol/L 135-145 L K (test code = 1934729812) 4.4 mmol/L 3.5-5.0 CL (test code = 5033283104) 91 mmol/L 98-108 L CO2 TOTAL (test code = 3198019078) 15 mmol/L 23-31 L AGAP (test code = 2891384678) 19 2-16 H BUN (test code = 0831077523) 49 mg/dL 7-23 H GLUCOSE (test code = 6893759297) 154 mg/dL 70-110 H CREATININE (test code = 3930367906) 8.54 mg/dL 0.60-1.25 H CALCIUM (test code = 5909997708) 6.1 mg/dL 8.6-10.6 L eGFR (test code = 26281-9) 6.5 mL/min/1.73m2 BOBBY (test code = BOBBY) Association of Glomerular Filtration Rate (GFR) and Staging of Kidney Disease* + --+ --+ ------+| GFR (mL/min/1.73 m2) ?| With Kidney Damage ?| ?Without Kidney Damage+ --------+ --------+ +| ?>90 ?| ?Stage one ?| ? Normal ?+ ---+ ---+ -------+| ?60-89 ?| ?Stage two ?| ? Decreased GFR ? + --+ --+ ------+| ?30-59 ?| ?Stage three ?| ? Stage three ? + --+ --+ ------+| ?15-29 ?| ?Stage four ? | ? Stage four ?+ ---+ ---+ -------+| ?<15 (or dialysis) ? ?| ?Stage five ? | ? Stage five ?+ ---+ ---+ -------+ *Each stage assumes the associated GFR level has been in effect for at least three months. ?Stages 1 to 5, with or without kidney disease, indicate chronic kidney disease. Notes: Determination of stages one and two (with eGFR >59mL/min/1.73 m2) requires estimation of kidney damage for at least three months as defined by structural or functional abnormalities of the kidney, manifested by either:Pathological abnormalities or Markers of kidney damage (including abnormalities in the composition of the blood or urine or abnormalities in imaging tests). Lab Interpretation (test code = 09932-2) [facility]normal [facility] / [id number] 09:53:41* Test Item Value Reference Range Interpretation Comme [facility] PROTIME PATIENT (test code = 5964-2) 15.5 See_Comment H [Automated [employer]] The system which generated this result transmitted reference range: 10.1 - 12.6 Seconds. The reference range was not used to interpret this result as normal/abnormal. INR (test code = 6301-6) 1.4 Normal INR <1.1; Warfarin Therapeutic range 2.0 to 3.0 or 2.5 to 3.5, depending upon the indications. Lab Interpretation (test code = 60188-8) Abnormal [facility] PAN[facility] (35282) (ALB,T.PRO,BILI T,BU/BC,ALT,AST,ALK PHOS)2023-02-20 06:50:43* Test Item Value Reference Range Interpretation Comme [facility] TOTAL BILI (test code = 3902119847) 2.3 mg/dL 0.1-1.1 H BILI UNCON (test code = 2066314815) 0.5 mg/dL 0.1-1.1 BILI CONJ (test code = 3694841496) 0.0 mg/dL 0.0-0.3 T PROTEIN (test code = 8935354671) 6.7 g/dL 6.3-8.2 ALBUMIN (test code = 5161253279) 3.0 g/dL 3.5-5.0 L ALK PHOS (test code = 5729516445) 324 U/L 34-122 H ALTv (test code = 1742-6) 98 U/L 5-50 H AST(SGOT) (test code = 3991081967) 384 U/L 13-40 H Lab Interpretation (test cod e = 20672-5) Abnormal [facility]OSMOL[facility]ITY, SERUM OR [id number] 21:10:51 * Test Item Value Reference Range Interpretation Comme nts OSMOLALITY (test code = 2692-2) 278 See_Comment [Automated messa ge] The system which generated this result transmitted reference range: 278 - 305 mOsm/kg. The reference range was not used to interpret this result as normal/abnormal. Lab Interpretation (test code = 14195-1) Normal [facility], SERUM OR [id number] 21:10:51 * Test Item Value Reference Range Interpretation Comme nts OSMOLALITY (test code = 2692-2) 278 See_Comment [Automated messa ge] The system which generated this result transmitted reference range: 278 - 305 mOsm/kg. The reference range was not used to interpret this result as normal/abnormal. Lab Interpretation (test code = 14112-3) Normal [facility] HospitalAMMONIA, [id number] 14:08:31* Test Item Value Reference Range Interpretation Comme nts AMMONIA (test code = 4034252148) 25 umol/L 9-33 Lab Interpretation (test cod e = 80924-7) Normal [facility]. METABOLIC PANEL (89070)2023-02-19 13:44:54* Test Item Value Reference Range Interpretation Comme nts NA (test code = 4174115098) 121 mmol/L 135-145 L K (test code = 8991452283) 4.7 mmol/L 3.5-5.0 CL (test code = 4395407482) 90 mmol/L 98-108 L CO2 TOTAL (test code = 9097755675) 13 mmol/L 23-31 L AGAP (test code = 7100735414) 18 2-16 H BUN (test code = 6592481895) 61 mg/dL 7-23 H GLUCOSE (test code = 8694702324) 92 mg/dL 70-110 CREATININE (test code = 7438251704) 10.78 mg/dL 0.60-1.25 H TOTAL BILI (test code = 3042750881) 2.6 mg/dL 0.1-1.1 H CALCIUM (test code = 0755035340) 5.9 mg/dL 8.6-10.6 LL T PROTEIN (test code = 1209226471) 6.6 g/dL 6.3-8.2 ALBUMIN (test code = 3731632964) 3.1 g/dL 3.5-5.0 L ALK PHOS (test code = 4778012069) 304 U/L 34-122 H ALTv (test code = 1742-6) 98 U/L 5-50 H AST(SGOT) (test code = 7692828960) 387 U/L 13-40 H eGFR (test code = 58654-4) 5.0 mL/min/1.73m2 BOBBY (test code = BOBBY) Association of Glomerular Filtration Rate (GFR) and Staging of Kidney Disease* + --+ --+ ------+| GFR (mL/min/1.73 m2) ?| With Kidney Damage ?| ?Without Kidney Damage+ --------+ --------+ +| ?>90 ?| ?Stage one ?| ? Normal ?+ ---+ ---+ -------+| ?60-89 ?| ?Stage two ?| ? Decreased GFR ? + --+ --+ ------+| ?30-59 ?| ?Stage three ?| ? Stage three ? + --+ --+ ------+| ?15-29 ?| ?Stage four ? | ? Stage four ?+ ---+ ---+ -------+| ?<15 (or dialysis) ? ?| ?Stage five ? | ? Stage five ?+ ---+ ---+ -------+ *Each stage assumes the associated GFR level has been in effect for at least three months. ?Stages 1 to 5, with or without kidney disease, indicate chronic kidney disease. Notes: Determination of stages one and two (with eGFR >59mL/min/1.73 m2) requires estimation of kidney damage for at least three months as defined by structural or functional abnormalities of the kidney, manifested by either:Pathological abnormalities or Markers of kidney damage (including abnormalities in the composition of the blood or urine or abnormalities in imaging tests). Lab Interpretation (test code = 42364-3) Abnormal [facility]AC PAN[facility] 21 + LACTIC [id number] 05:32:17* Test Item Value Reference Range Interpretation Comme nts PH (test code = 6356589936) 7.23 7.32-7.42 L PCO2 JUAN LUIS (test code = 9517466668) 39 See_Comment L [Automated [employer]] The system which generated this result transmitted reference range: 41 - 51 mmHg. The reference range was not used to interpret this result as normal/abnormal. PO2 JUAN LUIS (test code = 2025361418) 39 See_Comment [Automated messa ge] The system which generated this result transmitted reference range: 25 - 40 mmHg. The reference range was not used to interpret this result as normal/abnormal. HCO3 JUAN LUIS (test code = 4916310366) 16 See_Comment L [Automated messa ge] The system which generated this result transmitted reference range: 24 - 28 mEq/L. The reference range was not used to interpret this result as normal/abnormal. AC VBE(BEAKER) (test code = 0820429127) -11.0 mEq/L THB JUAN LUIS (test code = 1846078842) 12.0 g/dL 13.5-18.0 L %O2HB JUAN LUIS (test code = 1278200270) 63.9 % 52.0-63.0 H %COHB JUAN LUIS (test code = 1675102271) 0.2 % 0.0-1.5 %METHB JUAN LUIS (test code = 9872306729) 0.0 % 0.4-1.5 L VOL%O2 JUAN LUIS (test code = 0633769036) 10.8 % 6.0-12.0 NA (test code = 1501169487) 121 mmol/L 135-145 L K+ (test code = 4865977202) 4.8 mmol/L 3.5-5.0 AC CA IONZ (test code = 8711355547) 3.40 mg/dL 4.50-5.30 L GLUCOSE (test code = 5806136033) 107 mg/dL 70-110 LACTIC ACID (test code = 4970698950) 1.52 mmol/L 0.50-2.20 Lab Interpretation (test code = 14911-0) Abnormal [facility] 21 + LACTIC [id number] 05:32:17* Test Item Value Reference Range Interpretation Comme nts PH (test code = 5320312313) 7.23 7.32-7.42 L PCO2 JUAN LUIS (test code = 7053424337) 39 See_Comment L [Automated messa ge] The system which generated this result transmitted reference range: 41 - 51 mmHg. The reference range was not used to interpret this result as normal/abnormal. PO2 JUAN LUIS (test code = 4306731963) 39 See_Comment [Automated messa ge] The system which generated this result transmitted reference range: 25 - 40 mmHg. The reference range was not used to interpret this result as normal/abnormal. HCO3 JUAN LUIS (test code = 1110561432) 16 See_Comment L [Automated messa ge] The system which generated this result transmitted reference range: 24 - 28 mEq/L. The reference range was not used to interpret this result as normal/abnormal. AC VBE(BEAKER) (test code = 7826874103) -11.0 mEq/L THB JUAN LUIS (test code = 3323199243) 12.0 g/dL 13.5-18.0 L %O2HB JUAN LUIS (test code = 8854134081) 63.9 % 52.0-63.0 H %COHB JUAN LUIS (test code = 3449157000) 0.2 % 0.0-1.5 %METHB JUAN LUIS (test code = 4038567009) 0.0 % 0.4-1.5 L VOL%O2 JUAN LUIS (test code = 2224984409) 10.8 % 6.0-12.0 NA (test code = 9725045103) 121 mmol/L 135-145 L K+ (test code = 5573935551) 4.8 mmol/L 3.5-5.0 AC CA IONZ (test code = 7180065660) 3.40 mg/dL 4.50-5.30 L GLUCOSE (test code = 8547135918) 107 mg/dL 70-110 LACTIC ACID (test code = 5842651226) 1.52 mmol/L 0.50-2.20 Lab Interpretation (test code = 50404-2) Abnormal [facility] Notes Date/Time Note Provider Source 2023-09-22 15:51:13 8354-50-10Y49:51:13 VM to confirm appointment dvised orders placed for labs to be drawn prior to OV if possible 91461-1Cewonhfta encounter JhrmGK1361-34-76U19:52:01Telephone encounter NoteTXT1.2.840.471827.1.13.104.2.7.2 .901753|[id number] for patient nbwp74221-6MxwwANOZIHWBMUFTcwmolnss C-CDA narrative textUT95 [address] [id number] WJFFQKOZUDJRWHTRALHJWA6850-00-74H31: 52:011.2.840.904313.1.72.3.15|1.2.84 0.655906.1.13.104.2.7.2.727879_21115 [id number] [facility] 2023-08-31 10:35:57 4692-31-18W04:35:57 Images from the original note were not included.Davon Mcbride MD P Cardiology NurseEcho showed reduced ejection fraction at 35 to 40%. Nuclear stress test showed no reversible defect. Please help make an appointment with [facility] cardiology heart failure clinic in any location for further evaluation and management.Provided results and recommendations, HF scheduling # [phone] providedVerbalized understanding 52039-5Xyvhxxjaa encounter ZzefOO7198-64-34X63:42:14Telephone encounter NoteTXT1.2.840.699914.1.13.104.2.7.2 .167720|[id number] for patient zfku24221-1WeynNBWBJBCUAODFabdaphaf C-CDA narrative [id number] KHALIL[address] [id number] NCZDPRZFNHGRDIOCNQGXWZ5634-42-55L58: 42:141.2.840.724455.1.72.3.15|1.2.84 0.539455.1.13.104.2.7.2.727879_20940 [id number] Hannah Keating RN [facility] 2023-08-30 08:00:00 2614-43-20Q16:00:00Summary: Lexiscan stress test Beny Aden is a 58 year old male received to Nuclear Medicine for Stress Test. Pt is AAOx4 and is in NAD.Pt identified using Name & . Pt endorses being NPO since 08/30/2023.Indication for this Stress Test is NIÑO.Last caffeine intake ?12 hoursNM Tech monitoring is Shailesh NMSupervising physician Jose obtained consent at 08/30/2023Time out completed 0900Lexiscan 0.4mg/5mL injected at 0900, followed by 5mL NS flush.Pre Stress Test vitals are: BP 135/94 HR 67 Resp 20 O2 sat 100Injection vitals are: BP 126/82 HR 91 Resp 20 O2 sat 100Recovery vitals are: BP 140/94 HR 88 Resp 20 O2 sat 100 68634-2Dsasw XjxbTO0532-02-74M46:20:48Nurse NoteTXT1.2.840.336861.1.13.104.2.7.2 .841014|[id number] for patient kqwu81393-7Jgogh NoteLNNARRATIVEFormatted C-CDA narrative text[address] Br[id number] MKZRVUYMNKIOENAQPEYXJR6156-95-58J33: 20:481.2.840.396583.1.72.3.15|1.2.84 0.839590.1.13.104.2.7.2.727879_20926 [id number] [facility] 2023-07-13 15:40:00 2281-96-01X65:40:00Addended by: DAVON MCBRIDE MD on: 08/31/2023 07:44 AMModules accepted: Orders 11010-6Srwaxsbm SjclyqgxGI3339-86-26W64:44:25Addlarau dominik CaleroTXT1.2.840.475946.1.13.104.2 .7.2.346082|[id number] for patient glqz76903-0BlcePISEBRPUZFEKcffbsseg C-CDA narrative text[address] Mv[id number] SNYFSYTTWBWIXOVTIXXUQI7113-43-76L06: 44:251.2.840.317794.1.72.3.15|1.2.84 0.402758.1.13.104.2.7.2.727879_20937 [id number] [facility]"
[2023-09-27] MEDS ORDERED: ONDANSETRON 4 MG/2 ML VIAL ONE ×2 (01:43→02:58)
[2023-09-27] MEDS ORDERED: NA CHLORIDE 0.9% 500 ML ONE (01:43)
[2023-09-27 02:07] LABS: Absolute Eosinophils 0.3 K/uL (0-0.5); Absolute Lymphocytes (CBC) 1.3 K/uL (0.7-4.9); Absolute Monocytes 0.5 K/uL (0.1-1.3); Absolute Neutrophil 4.8 K/uL (1.8-8.0); Basophils % 0.7 % (0-1.3); Eosinophils % 4.4 % (0-4.4); Hematocrit 36.1 % (39.6-49.0); Hemoglobin 12.1 g/dL (13.6-17.9); Lymphocytes % 18.9 % (15.3-44.8); MCH 28.7 pg (27.0-35.0); MCHC 33.5 g/dL (32.0-36.0); MCV 85.6 fL (80-100); MPV 7.4 fL (7.6-11.3); Monocytes % 7.6 % (3.3-12.3); Neutrophils % 68.4 % (41.7-73.7); Platelets 130 thou/uL (152-406); RBC Red Blood Cell Count 4.22 M/uL (4.33-5.43); Red Cell Distribution Width 16.3 % (12.1-15.2)
[2023-09-27 02:12] LABS: Albumin/Globulin Ratio 1.1 (1.1-1.8); Anion Gap 14.5 mEq/L (5.0-15.0); Bilirubin Total 1.3 mg/dL (0.2-1.0); Globulin 3.7 g/dL (2.3-3.5); Potassium 3.5 mEq/L (3.5-5.1); Protein, Total 7.7 g/dL (6.4-8.2)
[2023-09-27] MEDS ORDERED: MORPHINE 4 MG/ML SYR ONE (02:54)
[2023-09-27] MEDS ORDERED: PROMETHAZINE INJ 25 MG/ML AMP ONE (04:05)
--- NOTE | 2023-09-27 05:52 | EDPHYS ---
Physician Documentation [facility] Name: Beny Alvarez Age: 58 yrs Sex: Male : 1965 Arrival Date: 09/27/2023 Time: 01:05 Bed 11 Private MD: ED Physician Nikita Brooks HPI: 09/26 01:36 This 58 yrs old Male presents to ER via Ambulatory with complaints of Nausea/Vomiting, rt Abdominal Pain. 01:36 Patient presents to the ED with about 3 days of epigastric pain, nausea, vomiting. rt Patient has not been able to tolerate anything by mouth. Patient states that the symptoms have worsened today. Denies other acute complaints at this time, symptoms are moderate in severity, no other aggravating or alleviating factors.. Historical: - Allergies: :31 NSAIDS; ss - PMHx: :31 acid reflux; CHF; cirrhosis of liver; Hypertensive disorder; tremors; ss - PSHx: 01:31 Cholecystectomy; ss - Immunization history:: Client reports having NOT received the Covid vaccine. - Infectious Disease History:: Denies. - Social history:: Smoking status: Patient reports the use of cigarette tobacco products, cigars. - Family history:: not pertinent. ROS: 01:36 Constitutional: Negative for fever, chills, and weight loss, Cardiovascular: Negative rt for chest pain, palpitations, and edema, Respiratory: Negative for shortness of breath, cough, wheezing, and pleuritic chest pain, MS/Extremity: Negative for injury and deformity, Skin: Negative for injury, rash, and discoloration, 01:36 Abdomen/GI: Positive for abdominal pain, nausea and vomiting, Exam: 01:36 Constitutional: This is a well developed, well nourished patient who is awake, alert, rt and in no acute distress. Head/Face: Normocephalic, atraumatic. Chest/axilla: Normal chest wall appearance and motion. Nontender with no deformity. No lesions are appreciated. Cardiovascular: Regular rate and rhythm with a normal S1 and S2. No gallops, murmurs, or rubs. Normal PMI, no JVD. No pulse deficits. Respiratory: Lungs have equal breath sounds bilaterally, clear to auscultation and percussion. No rales, rhonchi or wheezes noted. No increased work of breathing, no retractions or nasal flaring. Skin: Warm, dry with normal turgor. Normal color with no rashes, no lesions, and no evidence of cellulitis. MS/ Extremity: Pulses equal, no cyanosis. Neurovascular intact. Full, normal range of motion. Neuro: Awake and alert, GCS 15, oriented to person, place, time, and situation. Cranial nerves II-XII grossly intact. Motor strength 5/5 in all extremities. Sensory grossly intact. Cerebellar exam normal. Normal gait. 01:36 Abdomen/GI: Tenderness to the epigastrium without rebound, guarding, distention, Vital Signs: 01:30 BP 151 / 97; Pulse 84; Resp 18; Pulse Ox 100% on R/A; ss 02:53 Temp 98.1(O); ss 03:30 BP 138 / 83; Pulse 63; Resp 16; Temp 98.3(O); Pulse Ox 98% on R/A; Pain 4/10; ss 06:00 BP 140 / 84; Pulse 80; Resp 16; Pulse Ox 98% on R/A; Pain 3/10; ss 03:30 Pain Scale: Adult ss 06:00 Pain Scale: Adult ss MDM: 01:26 Patient medically screened. rt 05:57 Differential diagnosis: Pancreatitis, bowel obstruction, renal dysfunction, rt gastroenteritis. Data reviewed: vital signs, nurses notes, lab test result(s), radiologic studies. Consideration of Admission/Observation Escalation of care including admission/observation considered. I considered the following discharge prescriptions or medication management in the emergency department Medications were administered in the Emergency Department. See MAR. Independent interpretation of the following test(s) in the Emergency Department CT Scan: My interpretation is No bowel obstruction seen on my interpretation of CT scan images. Care significantly affected by the following chronic conditions: Congestive Heart Failure. Counseling: I had a detailed discussion with the patient and/or guardian regarding the historical points, exam findings, and any diagnostic results supporting the discharge/admit diagnosis, lab results, radiology results, the need for outpatient follow up, to return to the emergency department if symptoms worsen or persist or if there are any questions or concerns that arise at home. Response to treatment: the patient's symptoms have markedly improved after treatment. ED course: Benign labs, CT scan, patient is p.o. tolerant following antiemetics in the ED. Patient stable for outpatient care, return precautions discussed.. 06/04 01:33 Order name: CBC with Diff; Complete Time: 03:31 rt 09/26 01:33 Order name: CMP; Complete Time: 03:31 rt 09/26 01:33 Order name: Lipase; Complete Time: 03:31 rt 09/26 01:33 Order name: CT Abd/Pelvis - IV Contrast Only rt 09/26 01:33 Order name: IV Saline Lock; Complete Time: 01:41 rt 09/26 01:33 Order name: Labs collected and sent; Complete Time: 01:41 rt Administered Medications: 01:50 Drug: NS 0.9% IV 500 ml IV at 1 bolus Per protocol; 1000 mL bolus Route: IV; Rate: 1 ss bolus; Site: right antecubital; 06:06 Follow up: IV Status: Completed infusion; IV Intake: 500ml ss 01:50 Drug: Ondansetron IVP 4 mg IVP once; over 2 minutes Route: IVP; Site: right antecubital;ss 03:01 Follow up: Response: No adverse reaction; No change in condition ss 03:01 Drug: morphine IVP or IV 4 mg IVP once over 4 mins Route: IVP; Infused Over: 4 mins; ss Site: right antecubital; 04:08 Follow up: Response: No adverse reaction; RASS: Alert and Calm (0) ss 03:02 Drug: Ondansetron IVP 4 mg IVP once; over 2 minutes Route: IVP; Site: right antecubital;ss 04:09 Follow up: Response: No adverse reaction ss 04:08 Drug: Promethazine IVP 12.5 mg IVP once Route: IVP; Site: left antecubital; ss 06:06 Follow up: Response: No adverse reaction ss Disposition Summary: 09/27/23 05:52 Discharge Ordered Notes: Location: Home rt Problem: new rt Symptoms: have improved rt Condition: Stable rt Diagnosis - Nausea with vomiting, unspecified rt Followup: rt - With: Private Physician - When: 2 - 3 days - Reason: Discharge Instructions: - Discharge Summary Sheet rt - Nausea and Vomiting, Adult rt Forms: - Medication Reconciliation Form rt - Antibiotic Education rt - Prescription Opioid Use rt - Patient Portal Instructions rt - Leadership Thank You Letter rt Prescriptions: - ondansetron 4 mg Oral Tablet,disintegrating - take 1 tablet ORAL route every 6 hours as needed for nausea and vomiting; 15 rt tablet; Refills: 0, Product Selection Permitted - Reglan 10 mg Oral tablet - take 1 tablet ORAL route every 6 hours as needed for nausea; 20 tablet; rt Refills: 0, Product Selection Permitted Signatures: Dispatcher [employer] Vonda Anderson, KAYLA RN ss Nikita Brooks MD MD rt Corrections: (The following items were deleted from the chart) 01:33 01:33 Abdomen Pelvis W Con+CT.RAD.BRZ ordered. GIGI YU
--- NOTE | 2023-09-27 05:52 | ER ---
Nurse's Notes [facility] Name: Beny Alvarez Age: 58 yrs Sex: Male : 1965 Arrival Date: 09/27/2023 Time: 01:05 Bed 11 Private MD: Diagnosis: Nausea with vomiting, unspecified Presentation: 09/26 01:30 Chief complaint: Patient states: N/V abd pain and back pain x 3 days. Coronavirus ss screen: Client denies travel out of the [place] in the last 14 days. Ebola Screen: Patient denies exposure to infectious person. Patient denies travel to an Ebola-affected area in the 21 days before illness onset. Initial Sepsis Screen: Does the patient meet any 2 criteria? No. Patient's initial sepsis screen is negative. Does the patient have a suspected source of infection? No. Patient's initial sepsis screen is negative. Risk Assessment: Do you want to hurt yourself or someone else? Patient reports no desire to harm self or others. Onset of symptoms was September 24, 2023. 01:30 Method Of Arrival: Ambulatory ss 01:30 Acuity: KALEY 3 ss Triage Assessment: 01:32 General: Appears uncomfortable, Behavior is calm, cooperative. Neuro: Level of ss Consciousness is awake, alert, obeys commands. Respiratory: Airway is patent Respiratory effort is even, unlabored, Respiratory pattern is regular, symmetrical. GI: Reports nausea, vomiting. Derm: Skin is pink, warm \T\ dry. normal. Historical: - Allergies: 01:31 NSAIDS; ss - PMHx: 01:31 acid reflux; CHF; cirrhosis of liver; Hypertensive disorder; tremors; ss - PSHx: 01:31 Cholecystectomy; ss - Immunization history:: Client reports having NOT received the Covid vaccine. - Infectious Disease History:: Denies. - Social history:: Smoking status: Patient reports the use of cigarette tobacco products, cigars. - Family history:: not pertinent. Screenin:00 [facility] ED Fall Risk Assessment (Adult) History of falling in the last 3 months, ss including since admission No falls in past 3 months (0 pts) Confusion or Disorientation No (0 pts) Intoxicated or Sedated No (0 pts) Impaired Gait No (0 pts) Mobility Assist Device Used No (0 pt) Altered Elimination No (0 pt) Score/Fall Risk Level 0 - 2 = Low Risk Maintained a safe environment. Abuse screen: Denies threats or abuse. Denies injuries from another. Nutritional screening: No deficits noted. Tuberculosis screening: Never had TB. Assessment: 01:45 General: Appears uncomfortable, Behavior is cooperative, restless, Reports feeling ill ss for 2-3 days. Pain: Complains of pain in back and abdomen Pain currently is 8 out of 10 on a pain scale. Is continuous. Neuro: Level of Consciousness is awake, alert, obeys commands. Respiratory: Airway is patent Respiratory effort is even, unlabored, Respiratory pattern is regular, symmetrical. GI: Reports nausea, vomiting. Derm: Skin is intact, is healthy with good turgor, Skin is dry, Skin is pink, warm \T\ dry. normal. 02:30 Reassessment: Patient appears in no apparent distress at this time. feeling a little ss better. 04:15 Reassessment: Patient appears in no apparent distress at this time. Pt reports nausea ss and vomiting have improved, but is coughing a little at this time. 05:50 Reassessment: No changes from previously documented assessment. Patient is alert, ss oriented x 3, equal unlabored respirations, skin warm/dry/pink. Patient states feeling better. Patient states symptoms have improved. Respiratory: Respiratory effort is even, unlabored, Respiratory pattern is regular, agonal. Vital Signs: 01:30 BP 151 / 97; Pulse 84; Resp 18; Pulse Ox 100% on R/A; ss 02:53 Temp 98.1(O); ss 03:30 BP 138 / 83; Pulse 63; Resp 16; Temp 98.3(O); Pulse Ox 98% on R/A; Pain 4/10; ss 06:00 BP 140 / 84; Pulse 80; Resp 16; Pulse Ox 98% on R/A; Pain 3/10; ss 03:30 Pain Scale: Adult ss 06:00 Pain Scale: Adult ss ED Course: 01:12 Patient arrived in ED. gm2 01:14 Nikita Brooks MD is Attending Physician. rt 01:31 Triage completed. ss 01:31 Arm band placed on right wrist. ss 01:41 Inserted saline lock: 20 gauge in right antecubital area, using aseptic technique. ss Blood collected. 02:34 CT Abd/Pelvis - IV Contrast Only In Process Unspecified. EDMS 03:01 Vonda West, RN is Primary Nurse. ss 04:00 Patient has correct armband on for positive identification. Bed in low position. ss 06:05 No provider procedures requiring assistance completed. IV discontinued, intact, ss bleeding controlled, No redness/swelling at site. Pressure dressing applied. Administered Medications: 01:50 Drug: NS 0.9% IV 500 ml IV at 1 bolus Per protocol; 1000 mL bolus Route: IV; Rate: 1 ss bolus; Site: right antecubital; 06:06 Follow up: IV Status: Completed infusion; IV Intake: 500ml ss 01:50 Drug: Ondansetron IVP 4 mg IVP once; over 2 minutes Route: IVP; Site: right antecubital;ss 03:01 Follow up: Response: No adverse reaction; No change in condition ss 03:01 Drug: morphine IVP or IV 4 mg IVP once over 4 mins Route: IVP; Infused Over: 4 mins; ss Site: right antecubital; 04:08 Follow up: Response: No adverse reaction; RASS: Alert and Calm (0) ss 03:02 Drug: Ondansetron IVP 4 mg IVP once; over 2 minutes Route: IVP; Site: right antecubital;ss 04:09 Follow up: Response: No adverse reaction ss 04:08 Drug: Promethazine IVP 12.5 mg IVP once Route: IVP; Site: left antecubital; ss 06:06 Follow up: Response: No adverse reaction ss Medication: 06:00 VIS not applicable for this client. ss Intake: 06:06 IV: 500ml; Total: 500ml. ss Outcome: 05:52 Discharge ordered by . rt 06:05 Discharged to home ambulatory, with family, ss 06:05 Condition: good 06:05 Discharge instructions given to patient, family, Instructed on discharge instructions, follow up and referral plans. medication usage, Demonstrated understanding of instructions, follow-up care, medications, Prescriptions given X 2, 06:06 Patient left the ED. ss Signatures: Dispatcher [employer] EDMO Vonda West RN RN ss Nikita Brooks MD MD rt Thelma Carter gm2 Corrections: (The following items were deleted from the chart) 08:55 03:30 BP 138 / 83; Pulse 63bpm; Resp 16bpm; Pulse Ox 98% RA; Pain 4/10, Adult; ss ss
[2023-09-27 06:19] VITALS: BP 151/97; TEMP 98.1; O2SAT 100
--- NOTE | 2023-09-27 11:26 | RAD REPORT ---
EXAM DESCRIPTION: CT - Abdomen Pelvis W Contrast - 09/27/2023 6:58 am CLINICAL HISTORY: ABD PAIN COMPARISON: 02/18/2023. TECHNIQUE: CT ABDOMEN PELVIS WITH IV CONTRAST on 09/27/2023 1:33 AM CDT This exam was performed according to our departmental dose-optimization program, which includes autom ated exposure control, adjustment of the mA and/or kV according to patient size and/or use of iterati ve reconstruction technique. FINDINGS: Lower lungs are clear. Abdomen: Liver is diffusely fatty in attenuation. There is no biliary dilatation. Cholecystectomy was performed. The pancreas and spleen are normal in appearance. The adrenal glands and kidneys are unre markable. Abdominal aorta is normal in course and caliber without aneurysm. There is no free air. There is no r etroperitoneal adenopathy. Pelvis: There is no bowel obstruction. Urinary bladder is unremarkable. There is no free fluid. Appen dectomy was performed. Skeleton: There are multiple old right rib fractures status post surgical repair. IMPRESSION: No acute inflammatory process. Electronically signed by: Jorgito Mendez MD 09/27/2023 03:51 AM CDT RP Due to temporary technical issues with the PACS/Fluency reporting system, reports are being signed by the in house radiologist without review as a courtesy to ensure prompt reporting. The interpreting r adiologist is fully responsible for the content of the report.
== END 2023-09-27 06:06 | disposition home or self-care (01) ==
LOC: ER 01:05
DX: R11.2 Nausea with vomiting, unspecified (principal); R10.13 Epigastric pain
CPT/HCPCS: 85025; 36415; 83690; 80053; 74177; 99284; Q9967; J2550; J2405 ×2; J7040

== ENCOUNTER 2024-02-03 11:27 | Emergency (ER) | payer OTHER ==
--- OUTSIDE RECORDS SUMMARY | 2024-02-03 11:36 | XMS REPORT | Continuity of Care Document ---
Author Name Unknown Address [address] [facility] [place] [address] [facility] Address [address] [facility] [address] [place] [address] Care Team Providers Care Fitter Mechanic Name Role Phone JANELL ORTEGA Primary Care Physician Unavailab ANDREW Campoverde Attending Clinician Unavailable ANDREW MONTANEZ Attending Clinician Unavailable BRENDEN HICKEY Attending Clinician Unavailabl BRENDEN White Attending Clinician UnavailDavon Pearce MD Attending Clinician [phone] DAVON MCBRIDE Attending Clinician Unavailable Doctor Unassigned, [place] Attending Clinician U saleem Joy RN, Cielo Elder Attending Clinician Unavail able ARPIT RUST Attending Clinician Unavailab Zion Montoya DO Attending Clinician [phone] Tony Quiroz MD Attending Clinician + [phone] Alan Ballard DO Attending Clinician [phone] Lisa Turner MD Attending Clinician + [phone] Arpit Rust MD Attending Clinician [phone] Tj MURRAY, [place] Attending Clinician [phone] Zeynep Orozco MD Attending Clinician [phone] RADIOLOGY Attending Clinician Unavailable Radiology Attending Clinician Unavailable ABBI ALICIA Attending Clinician Unavailable ANDREW MONTANEZ Admitting Clinician Unavailable ALAN BALLARD Admitting Clinician Unavailable Alan Ballard DO Admitting Clinician JANELL ORTEGA Admitting Clinician Unavailable Payers Payer Name Policy Type Policy Number Effective Date Expirati on Date Source [facility]LY [facility] [id number] 2022 00:00:00 [facility] [id number] 2010 00:00:00 [facility] O [id number] 2010 00:00:00 Problems Condition Name Condition Details Condition Category Status Onset Date Resolution Date Last Treatment Date Treating Clinician Comments Source Cardiomyop athy, unspecifie d type Cardiomyop athy, unspecifie d type Disease Active 07-12 00:00: 00 [facility] Other forms of dyspnea Other forms of dyspnea Disease Active 07-12 00:00: 00 [facility] Chest pain, unspecifie d type Chest pain, unspecifie d type Disease Active 07-12 00:00: 00 [facility] Hypotensio n Hypotensio n Disease Active 2022-04 00:00: 00 [facility] Alcoholic cirrhosis of liver with ascites Alcoholic cirrhosis of liver with ascites Disease Recurre nce 2022-04 00:00: 00 [facility] Allergies, Adverse Reactions, Alerts Allergy Name Allergy Type Status Severity Reaction(s) Onset Date Inactive Date Treating Clinician Comments Source NSAIDS (NON-GERMÁN ROIDAL ANTI-INF LAMMATOR Y DRUG) Drug Class Active Unknown-Cmnt 2022-04 00:00: 00 [facility] Nsaids (Non-Germán roidal Anti-Inf lammator y Drug) Propensi ty to adverse reaction s Active Unknown - See comments 2022-04 00:00: 00 [facility] NO KNOWN ALLERGIE S Drug Class Active [facility] Family History Family Member Diagnosis Comments Start Date Stop Date Sourc e Natural [facility] Social History Social Habit Start Date Stop Date Quantity Comments Source History of tobacco use Passive smoker [facility] Gender identity [facility] Alcoholic beverage intake 2023-11-04 00:00:00 2023-11-04 00:00:00 1 /d [facility] Alcohol intake 2023-07-13 00:00:00 2023-07-13 00:00:00 1 /d [facility] Tobacco use and exposure 2023-03-03 00:00:00 2023-03-03 00:00:00 Smokeless tobacco non-user [facility] History of Social function 2023-02-22 00:00:00 2023-02-22 00:00:00 [facility] Sex assigned at 1965 00:00:00 1965 00:00:00 [facility] Smoking Status Start Date Stop Date Source Tobacco smoking consumption unknown [facility] Ex-smoker 2023-03-03 00:00:00 2023-03-03 00:00:00 [facility] Medications Ordered Medication Name Filled Medication Name Start Date Stop Date Current Medication? Ordering Clinician Indication Dosage Frequency Signature (SIG) Comments Components Source HYDROcodone -acetaminop hen (NORCO) 10-325 mg tablet 1 tablet 11-04 07:00: 00 11-04 06:31 :00 No 1{tbl} 1 tablet, Oral, ONCE NOW, 1 dose, On 11/05/23 at 0200, Routine [facility] amoxicillin -clavulanat e (AUGMENTIN) 875-125 mg per tablet 1 tablet 11-04 07:00: 00 11-04 06:31 :00 No 1{tbl} 1 tablet, Oral, ONCE NOW, 1 dose, On 11/05/23 at 0200, Routine, Reason for Anti-Infec tive: Documented Infection, Documented Infection Site: Skin / Soft Tissue, Duration of Therapy: Once (ED) [facility] ondansetron (ZOFRAN (PF)) injection 4 mg 11-04 06:30: 00 11-04 05:33 :00 No 4mg 4 mg, Slow IV Push, ONCE, 1 dose, On 11/05/23 at 0130, CHE [facility] metoclopram mello HCl (REGLAN) injection 10 mg 11-04 06:15: 00 11-04 06:31 :00 No 10mg 10 mg, Slow IV Push, ONCE, 1 dose, On 11/05/23 at 0115, CHE [facility] morpHINE (4 mg/mL) injection 4 mg 11-04 05:30: 00 11-04 04:44 :00 No 4mg 4 mg, Slow IV Push, ONCE, 1 dose, On 11/05/23 at 0030, STAT [facility] iopamidol (ISOVUE 370-500 mL) injection 85 mL 11-04 04:45: 00 11-04 04:45 :00 No [id number] 85mL 85 mL, Intravenou s, ONCE, 1 dose, On Tue11/04/23 at 2345, Routine [facility] ondansetron (ZOFRAN (PF)) injection 4 mg 11-04 03:00: 00 11-04 03:02 :00 No 4mg 4 mg, Slow IV Push, ONCE, 1 dose, On Tue11/04/23 at 2200, [facility] morpHINE (4 mg/mL) injection 4 mg 11-04 03:00: 00 11-04 03:03 :00 No 4mg 4 mg, Slow IV Push, ONCE, 1 dose, On Tue11/04/23 at 2200, STAT [facility] amoxicillin -clavulanat e 875-125 mg per tablet 11-04 00:00: 00 Yes [id number] 1{tbl} Take 1 tablet by mouth every 12 (twelve) hours. [facility] traMADoL (ULTRAM) 50 mg tablet 11-04 00:00: 00 Yes [id number] 50mg Take 1 tablet by mouth every 6 (six) hours as needed for Pain (scale 7-10). Indication s: acute pain [facility] ondansetron (ZOFRAN) 4 mg tablet 11-04 00:00: 00 Yes [id number] 4mg Take 1 tablet by mouth every 8 (eight) hours as needed for Nausea and Vomiting (N/V). [facility] perflutren protein-A microsphr (OPTISON) injection 3 mL 08-29 17:45: 00 08-29 17:43 :00 No [id number] 3mL 3 mL, IV Push, ONCE, 1 dose, On Tue08/30/23 at 1245, Routine [facility] tc 99m-tetrofo smin (MYOVIEW) injection 41.8 millicurie 08-29 14:00: 00 08-29 13:55 :00 No [id number] 41.8mCi 41.8 millicurie , Intravenou s, ONCE, 1 dose, On Tue08/30/23 at 0900, Routine [facility] regadenoson (LEXISCAN) injection 0.4 mg 08-29 14:00: 00 08-29 14:04 :00 No [id number] .4mg 0.4 mg, IV Push, ONCE, 1 dose, On Tue08/30/23 at 0900, Routine, burn crew member approving Restricted medication : DAVON MCBRIDE [facility] tc 99m-tetrofo smin (MYOVIEW) injection 15.8 millicurie 08-29 13:00: 00 08-29 12:56 :00 No [id number] 15.8mCi 15.8 millicurie , Intravenou s, ONCE, 1 dose, On Tue08/30/23 at 0800, Routine [facility] NaCl 0.9% (NS) injection 5 mL 2022-04 15:30: 00 03-10 18:22 :00 No 5mL 5 mL, Slow IV Push, ONCE, 1 dose, On Tue03/10/23 at 0930, Routine [facility] heparin 1,000 unit/mL (10 mL) - dialysis catheter care 2022-04 15:16: 28 Yes 2000U PRN - SEE INSTRUCTIO NS, Starting on Tue03/10/23 at 0916, Until Discontinu ed, Routine
For Priming of Ports:&nbs p; &n bsp; After initial saline flush, prime each port with heparin according to the priming volume listed on each catheter port for catheter lock.
[facility] Cholecalcif jeannie, Vitamin D3, 50 mcg (2,000 unit) capsule 2022-04 15:01: 52 Yes Take by mouth. [facility] cyanocobala min, vitamin B-12, 2,000 mcg Tab 2022-04 15:01: 52 Yes Take by mouth. [facility] DULoxetine 60 mg capsule 2022-04 15:01: 52 Yes 60mg Take 1 capsule by mouth in the morning. [facility] empaglifloz in 10 mg 2022-04 15:01: 52 Yes 10mg Take 1 tablet by mouth in the morning. [facility] furosemide (LASIX) 40 mg tablet 2022-04 15:01: 52 Yes 40mg Take 1 tablet by mouth in the morning. [facility] losartan 25 mg tablet 2022-04 15:01: 52 Yes 25mg Take 1 tablet by mouth in the morning. [facility] mirtazapine 15 mg tablet 2022-04 15:01: 52 Yes 15mg Take 1 tablet by mouth at bedtime. [facility] Pantoprazol e 40 mg delayed-rel ease suspension 2022-04 15:01: 52 Yes 40mg Take 40 mg by mouth in the morning. [facility] rosuvastati n 40 mg tablet 2022-04 15:01: 52 Yes 40mg Take 1 tablet by mouth at bedtime. [facility] spironolact one (ALDACTONE) 25 mg tablet 2022-04 15:01: 52 Yes 25mg Take 1 tablet by mouth in the morning. [facility] thiamine 100 mg tablet 2022-04 15:01: 52 Yes 100mg Take 1 tablet by mouth in the morning. [facility] metoprolol succinate XL 50 mg 24 hr tablet 2022-04 13:24: 06 03-10 00:00 :00 No 50mg Take 1 tablet by mouth in the morning. [facility] folic acid 0.8 mg Cap 2022-04 11:33: 32 03-10 00:00 :00 No Take by mouth. [facility] methocarbam oL 750 mg tablet 2022-04 00:00: 00 Yes [id number] 750mg Take 1 tablet by mouth 2 (two) times daily as needed for Pain (scale 1-3). [facility] propranoloL 20 mg tablet 2022-04 00:00: 00 Yes [id number] 20mg Take 1 tablet by mouth in the morning and 1 tablet in the evening. [facility] traZODone 50 mg tablet 2022-04 00:00: 00 Yes [id number] 50mg Take 1 tablet by mouth at bedtime. [facility] ipratropium -albuteroL 0.5 mg-3 mg(2.5 mg base)/3 mL nebulizer solution 2022-04 00:00: 00 Yes [id number] 3mL Inhale 3 mL 4 (four) times daily. [facility] lactulose 10 gram/15 mL solution 2022-04 00:00: 00 Yes [id number] 30mL Take 30 mL by mouth in the morning and 30 mL in the evening. [facility] nystatin 100,000 unit/gram ointment 2022-04 00:00: 00 Yes [id number] Apply to area(s) 2 (two) times daily. [facility] rifAXIMin 550 mg tablet 2022-04 00:00: 00 Yes [id number] 550mg Take 1 tablet by mouth in the morning and 1 tablet in the evening. [facility] foLIC acid 1 mg tablet 2022-04 00:00: 00 Yes [id number] 1mg Take 1 tablet by mouth in the morning. [facility] pregabalin (LYRICA) capsule 25 mg 2022-04 15:00: 00 Yes 25mg 25 mg, Oral, DAILY, First dose (after last modificati on) on Tue03/09/23 at 0900, Until Discontinu ed, Routine [facility] acetaminoph en (TYLENOL) tablet 650 mg 2022-04 14:35: 40 Yes 650mg 650 mg, Oral, Q6HPRN, Starting on Tue03/09/23 at 0835, Until Discontinu ed, Routine, Pain (scale 1-3) [facility] mirtazapine (REMERON) tablet 15 mg 2022-04 03:00: 00 Yes 15mg 15 mg, Oral, QHS, First dose on Tue03/08/23 at 2100, Until Discontinu ed, Routine [facility] hydrOXYzine (ATARAX) tablet 10 mg 2022-04 14:46: 24 Yes 10mg 10 mg, Oral, Q6HPRN, Starting on Tue03/08/23 at 0846, Until Discontinu ed, Routine, Itching, Anxiety, insomnia [facility] NaCl 0.9% (NS) injection 5 mL 2022-04 13:00: 00 03-08 13:00 :00 No 5mL 5 mL, Slow IV Push, ONCE, 1 dose, On Tue03/08/23 at 0700, Routine [facility] heparin 1,000 unit/mL (10 mL) - dialysis catheter care 2022-04 12:52: 50 Yes 2000U PRN - SEE INSTRUCTIO NS, Starting on Tue03/08/23 at 0652, Until Discontinu ed, Routine
For Priming of Ports:&nbs p; &n bsp; After initial saline flush, prime each port with heparin according to the priming volume listed on each catheter port for catheter lock.
[facility] methocarbam oL (ROBAXIN) tablet 750 mg 2022-04 03:36: 54 Yes 750mg 750 mg, Oral, BIDPRN, Starting on Tue03/07/23 at 2136, Until Discontinu ed, Routine, Muscle Spasms [facility] HYDROcodone -acetaminop hen (NORCO 5) 5-325 mg tablet 1 tablet 2022-04 03:32: 15 Yes 1{tbl} 1 tablet, Oral, Q6HPRN, Starting on Tue03/07/23 at 2132, Until Discontinu ed, Routine, Pain (scale 7-10) [facility] traZODone (DESYREL) tablet 50 mg 2022-04 03:00: 00 Yes 50mg 50 mg, Oral, QHS, First dose on Tue03/07/23 at 2100, Until Discontinu ed, Routine [facility] heparin (porcine) injection 5,000 Units 2022-04 02:00: 00 Yes 5000U 5,000 Units, Subcutaneo us, Q12H, First dose on Tue03/07/23 at 2000, Until Discontinu ed, Routine [facility] ipratropium -albuteroL (DUONEB) 0.5 mg-3 mg(2.5 mg base)/3 mL nebulizer solution 3 mL 2022-04 15:00: 00 Yes 3mL 3 mL, Inhalation , QID, First dose (after last modificati on) on Tue03/07/23 at 0900, Until Discontinu ed, Routine [facility] foLIC acid (FOLATE) tablet 1 mg 2022-04 15:00: 00 Yes 1mg 1 mg, Oral, DAILY, First dose on 03/06/23 at 0900, Until Discontinu ed, Routine [facility] pantoprazol e (PROTONIX) EC tablet 40 mg 2022-04 15:00: 00 Yes 40mg 40 mg, Oral, DAILY, First dose on 03/06/23 at 0900, Until Discontinu ed, Routine [facility] thiamine (VITAMIN B1) tablet 100 mg 2022-04 15:00: 00 Yes 100mg 100 mg, Oral, DAILY, First dose on 03/06/23 at 0900, Until Discontinu ed, Routine [facility] lactulose (CEPHULAC) solution 30 mL 2022-04 14:00: 00 Yes 30mL 30 mL, Oral, BID, First dose (after last modificati on) on 03/06/23 at 0800, Until Discontinu ed, Routine [facility] rosuvastati n (CRESTOR) tablet 10 mg 2022-04 03:00: 00 Yes 10mg 10 mg, Oral, QHS, First dose (after last modificati on) on 03/05/23 at 2100, Until Discontinu ed, Routine [facility] melatonin (MELATIN) tablet 6 mg 2022-04 03:00: 00 03-08 16:57 :30 No 6mg 6 mg, Oral, QHS, First dose (after last modificati on) on 03/05/23 at 2100, Until Discontinu ed, Routine [facility] rifAXIMin (XIFAXAN) tablet 550 mg 2022-04 02:00: 00 Yes 550mg 550 mg, Oral, BID, First dose on 03/05/23 at 2000, Until Discontinu ed, Routine
Reason for Anti-Infec tive: Empiric Non-Surgic al Prophylaxi s
Durat ion of therapy: 5 days
Sp ecific indication : HE [facility] propranoloL (INDERAL) tablet 20 mg 2022-04 02:00: 00 Yes 20mg 20 mg, Oral, BID, First dose on 03/05/23 at 2000, Until Discontinu ed, Routine [facility] lactulose (CEPHULAC) solution 30 mL 2022-04 02:00: 00 03-06 13:29 :57 No 30mL 30 mL, Enteral, BID, First dose (after last modificati on) on 03/05/23 at 2000, Until Discontinu ed, Routine [facility] heparin 1,000 unit/mL (10 mL) - dialysis catheter care 2022-04 20:02: 57 03-06 13:29 :57 No 2000U PRN - SEE INSTRUCTIO NS, Starting on 03/05/23 at 1402, Until 03/06/23 at 0729, Routine
For Priming of Ports:&nbs p; &n bsp; After initial saline flush, prime each port with heparin according to the priming volume listed on each catheter port for catheter lock.
[facility] melatonin (MELATIN) tablet 6 mg 2022-04 03:00: 00 03-05 15:10 :20 No 6mg 6 mg, Oral, QHS, First dose (after last modificati on) on Tue03/04/23 at 2100, Until Discontinu ed, Routine [facility] acetaminoph en (TYLENOL) 160 mg/5 mL oral liquid 650 mg 2022-04 21:12: 26 03-09 14:36 :27 No 650mg 650 mg, Oral, Q6HPRN, Starting on Tue03/04/23 at 1512, Until Tue03/09/23 at 0836, Routine, Pain (scale 4-6), Temp > 38.5 C [facility] iopamidol (ISOVUE 370-500 mL) injection 80 mL 2022-04 19:02: 00 03-04 19:02 :00 No [id number] 80mL 80 mL, Intravenou s, ONCE, 1 dose, On Tue03/04/23 at 1315, Routine [facility] KCL (KLOR-CON M20) tablet 20 mEq 2022-04 17:45: 00 03-04 18:11 :00 No 20meq 20 mEq, Oral, ONCE, 1 dose, On Tue03/04/23 at 1145, Routine [facility] folic acid (FOLATE) 1 mg/mL oral solution 1 mg 2022-04 15:00: 00 03-05 15:10 :20 No 1mg 1 mg, Enteral, DAILY, First dose on Tue03/04/23 at 0900, Until Discontinu ed, Routine [facility] hydr[facility] (ATARAX) tablet 10 mg 2022-04 13:10: 48 03-08 14:46 :34 No 10mg 10 mg, Oral, Q6HPRN, Starting on Tue03/04/23 at 0710, Until Tue03/08/23 at 0846, Routine, Itching, insomnia [facility] rosuvastati n (CRESTOR) tablet 10 mg 2022-04 03:00: 00 03-05 15:10 :20 No 10mg 10 mg, Oral, QHS, First dose (after last modificati on) on Tue03/03/23 at 2100, Until Discontinu ed, Routine [facility] melatonin (MELATIN) tablet 3 mg 2022-04 03:00: 00 03-04 13:11 :40 No 3mg 3 mg, Oral, QHS, First dose (after last modificati on) on Tue03/03/23 at 2100, Until Discontinu ed, Routine [facility] propranoloL (INDERAL) 20 mg/5 mL (4 mg/mL) solution 10 mg 2022-04 02:00: 00 03-05 15:10 :20 No 10mg 10 mg, Enteral, BID, First dose (after last modificati on) on Tue03/03/23 at 2000, Until Discontinu ed, Routine [facility] propranoloL (INDERAL) 20 mg/5 mL (4 mg/mL) solution 10 mg 2022-04 15:45: 00 03-03 21:14 :53 No 10mg 10 mg, Oral, BID, First dose on Tue03/03/23 at 0945, Until Discontinu ed, Routine [facility] NaCl 0.9% (NS) injection 5 mL 2022-04 15:30: 00 03-03 16:28 :00 No 5mL 5 mL, Slow IV Push, ONCE, 1 dose, On Tue03/03/23 at 0930, Routine [facility] heparin 1,000 unit/mL (10 mL) - dialysis catheter care 2022-04 15:27: 18 03-06 13:29 :57 No 2000U PRN - SEE INSTRUCTIO NS, Starting on Tue03/03/23 at 0927, Until Tue03/06/23 at 0729, Routine
For Priming of Ports:&nbs p; &n bsp; After initial saline flush, prime each port with heparin according to the priming volume listed on each catheter port for catheter lock.
[facility] nystatin (MYCOSTATIN ) ointment 2022-04 15:00: 00 Yes Topical, BID, First dose on Faustina 03/03/23 at 0900, Until Discontinu ed, Routine [facility] rifAXIMin (XIFAXAN) 20 mg/mL oral suspension 550 mg 2022-04 02:00: 00 03-05 15:10 :20 No 550mg 550 mg, Enteral, BID, First dose (after last modificati on) on Tue03/02/23 at 1999, Until Discontinu ed, Routine
Reason for Anti-Infec tive: Empiric Non-Surgic al Prophylaxi s
Durat ion of therapy: 5 days [facility] lactulose (CEPHULAC) solution 30 mL 2022-04 02:00: 00 03-05 15:10 :20 No 30mL 30 mL, Enteral, QID, First dose (after last modificati on) on Tue03/02/23 at 1999, Until Discontinu ed, Routine [facility] NaCl 0.9% (NS) injection 5 mL 2022-04 22:00: 00 03-02 23:25 :00 No 5mL 5 mL, Slow IV Push, ONCE, 1 dose, On Tue03/02/23 at 1600, [facility] unit/mL (10 mL) - dialysis catheter care 2022-04 21:48: 26 03-03 15:40 :07 No 2000U PRN - SEE INSTRUCTIO NS, Starting on Tue03/02/23 at 1548, Until Tue03/03/23 at 0940, Routine
For Priming of Ports:&nbs p; &n bsp; After initial saline flush, prime each port with heparin according to the priming volume listed on each catheter port for catheter lock.
[facility] heparin 1,000 unit/mL injection 2022-04 21:00: 18 03-02 21:00 :18 No PRN, Starting on Tue03/02/23 at 1500, Until Tue03/02/23 at 1500, Routine, Intra-op [facility] Cholecalcif jeannie, Vitamin D3, 50 mcg (2,000 unit) capsule 2022-04 20:48: 54 Yes Take by mouth. [facility] cyanocobala min, vitamin B-12, 2,000 mcg Tab 2022-04 20:48: 54 Yes Take by mouth. [facility] DULoxetine 60 mg capsule 2022-04 20:48: 54 Yes 60mg Take 1 capsule by mouth in the morning. [facility] empaglifloz in 10 mg 2022-04 20:48: 54 Yes 10mg Take 1 tablet by mouth in the morning. [facility] folic acid 0.8 mg Cap 2022-04 20:48: 54 Yes Take by mouth. [facility] furosemide (LASIX) 40 mg tablet 2022-04 20:48: 54 Yes 40mg Take 1 tablet by mouth in the morning. [facility] losartan 25 mg tablet 2022-04 20:48: 54 Yes 25mg Take 1 tablet by mouth in the morning. [facility] metoprolol succinate XL 50 mg 24 hr tablet 2022-04 20:48: 54 Yes 50mg Take 1 tablet by mouth in the morning. [facility] mirtazapine 15 mg tablet 2022-04 20:48: 54 Yes 15mg Take 1 tablet by mouth at bedtime. [facility] Pantoprazol e 40 mg delayed-rel ease suspension 2022-04 20:48: 54 Yes 40mg Take 40 mg by mouth in the morning. [facility] rosuvastati n 40 mg tablet 2022-04 20:48: 54 Yes 40mg Take 1 tablet by mouth at bedtime. [facility] spironolact one (ALDACTONE) 25 mg tablet 2022-04 20:48: 54 Yes 25mg Take 1 tablet by mouth in the morning. [facility] thiamine 100 mg tablet 2022-04 20:48: 54 Yes 100mg Take 1 tablet by mouth in the morning. [facility] lidocaine 1% (PF) (XYLOCAINE) injection 2022-04 20:32: 55 03-02 20:32 :55 No PRN, Starting on Tue03/02/23 at 1432, Until Tue03/02/23 at 1432, Routine, Intra-op [facility] FENTanyl PF (SUBLIMAZE (PF)) injection 2022-04 20:32: 42 03-02 20:47 :05 No Slow IV Push, PRN, Starting on Tue03/02/23 at 1432, Until Tue03/02/23 at 1447, Routine, [facility] mid[facility]am ([facility]ED) injection 2022-04 20:32: 23 03-02 20:32 :23 No IV Push, PRN, Starting on Tue03/02/23 at 1432, Until Tue03/02/23 at 1432, Routine, Intra-op [facility] midodrine (PROAMATINE ) tablet 10 mg 2022-04 12:00: 00 03-03 15:39 :09 No 10mg 10 mg, Enteral, Q8H, First dose (after last modificati on) on Tue03/02/23 at 0600, Until Discontinu ed, Routine [facility] midodrine (PROAMATINE ) tablet 15 mg 2022-04 04:00: 00 03-02 09:53 :15 No 15mg 15 mg, Enteral, Q8H, First dose (after last modificati on) on Tue03/01/23 at 2200, Until Discontinu ed, Routine [facility] rifAXIMin (XIFAXAN) 20 mg/mL oral suspension 550 mg 2022-04 02:00: 00 03-03 01:56 :04 No 550mg 550 mg, Oral, BID, First dose on Tue03/01/23 at 2000, Until Discontinu ed, Routine
Reason for Anti-Infec tive: Empiric Non-Surgic al Prophylaxi s
Durat ion of therapy: 5 days [facility] NaCl 0.9% (NS) injection 5 mL 2022-04 21:15: 00 03-01 21:50 :00 No 5mL 5 mL, Slow IV Push, ONCE, 1 dose, On Tue03/01/23 at 1515, Routine [facility] heparin 1,000 unit/mL (10 mL) - dialysis catheter care 2022-04 21:00: 05 03-02 21:50 :21 No 2000U PRN - SEE INSTRUCTIO NS, Starting on Tue03/01/23 at 1500, Until Tue03/02/23 at 1550, Routine
For Priming of Ports:&nbs p; &n bsp; After initial saline flush, prime each port with heparin according to the priming volume listed on each catheter port for catheter lock.
[facility] barium sulfate-NO CHARGE- (VARIBAR NECTOR) 40 % (w/v) oral suspension 30 mL 2022-04 19:30: 00 03-01 19:35 :00 No [id number] 30mL 30 mL, Oral, ONCE, 1 dose, On Tue03/01/23 at 1330, Routine [facility] lactulose (CEPHULAC) solution 30 mL 2022-04 18:00: 00 03-03 01:56 :04 No 30mL 30 mL, Oral, QID, First dose (after last modificati on) on Tue03/01/23 at 1200, Until Discontinu ed, Routine [facility] rifAXIMin (XIFAXAN) tablet 550 mg 2022-04 02:00: 00 03-01 16:26 :10 No 550mg 550 mg, Oral, BID, First dose on Tue02/28/23 at 2000, Until Discontinu ed, Routine
Reason for Anti-Infec tive: Empiric Therapy for Suspected Infection< br>Empiric Therapy Site: Other
O ther site: HE
Dura tion of therapy: 5 days [facility] octreotide (SANDOSTATI N) 500 mcg in NaCl 0.9% (NS) 100 mL infusion 2022-04 17:00: 00 03-01 22:37 :31 No 50ug/h 50 mcg/hr (10 mL/hr), IV Infusion, CONTINUOUS , Starting on Tue02/28/23 at 1100 [facility] ceFEPIme (MAXIPIME) 1,000 mg in NaCl 0.9% (NS) 100 mL MINI-BAG 2022-04 04:00: 00 03-01 13:36 :38 No 1000mg 1,000 mg, IV Piggyback, Q12H ABX, 14 doses, First dose on 02/27/23 at 2200, Last dose on 03/06/23 at 1000, Administer over 4 Hours, 100 mL
Reas on for Anti-Infec tive: Empiric Therapy for Suspected Infection< br>Empiric Therapy Site: Respirator y
Durat ion of therapy: 5 days [facility] ceFEPIme (MAXIPIME) 2,000 mg in NaCl 0.9% (NS) 100 mL MINI-BAG 2022-04 16:15: 00 02-27 19:48 :00 No 2000mg 2,000 mg, IV Piggyback, ONCE, 1 dose, On 02/27/23 at 1015, Administer over 30 Minutes, 100 mL
Reas on for Anti-Infec tive: Empiric Therapy for Suspected Infection< br>Empiric Therapy Site: Respirator y
Durat ion of therapy: 5 days [facility] sodium phosphate 30 mmol in NaCl 0.9% (NS) 250 mL piggyback 2022-04 14:45: 00 02-27 18:39 :00 No 30mmol 30 mmol, IV Piggyback, ONCE, 1 dose, On 02/27/23 at 0845, Administer over 4 Hours, 250 mL [facility] cefTRIAXone (ROCEPHIN) 1,000 mg in NaCl 0.9% (NS) 100 mL MINI-BAG 2022-04 04:33: 52 02-27 15:19 :21 No 1000mg 1,000 mg, IV Piggyback, Q24H ABX, 7 doses, First dose on Tue02/26/23 at 2345, Last dose on Tue03/04/23 at 2345, Administer over 30 Minutes, 100 mL
Reas on for Anti-Infec tive: Empiric Therapy for Suspected Infection< br>Empiric Therapy Site: Abdominal< br>Duratio n of therapy: 5 days [facility] acetaminoph en (TYLENOL) tablet 650 mg 2022-04 04:04: 36 03-04 21:12 :18 No 650mg 650 mg, Enteral, Q6HPRN, Starting on Tue02/26/23 at 2304, Until Tue03/04/23 at 1512, Routine, Temp > 38 C [facility] lanolin alcohol-mo- w.pet-ceres (EUCERIN) cream 2022-04 03:30: 48 Yes Topical, PRN, Starting on Tue02/26/23 at 2230, Until Discontinu ed, Routine, Dermatitis /Rash, Near genital area [facility] rosuvastati n (CRESTOR) tablet 40 mg 2022-04 02:00: 00 03-03 01:56 :04 No 40mg 40 mg, Oral, QHS, First dose (after last modificati on) on Tue02/26/23 at 2100, Until Discontinu ed, Routine [facility] artificial tears(hypro mellose) (ISOPTO-TEA RS) 0.5 % ophthalmic drops 1 Drop 2022-04 21:16: 50 Yes 1[drp] 1 Drop, Both Eyes, PRN, Starting on Tue02/26/23 at 1616, Until Discontinu ed, Routine, Dry eyes [facility] pantoprazol e (PROTONIX) 2 mg/mL oral suspension 40 mg 2022-04 14:00: 00 03-05 15:10 :20 No 40mg 40 mg, Enteral, DAILY, First dose on Tue02/26/23 at 0900, Until Discontinu ed, Routine [facility] lactulose (CEPHULAC) solution 30 mL 2022-04 13:00: 00 03-01 14:09 :36 No 30mL 30 mL, Enteral, QID, First dose (after last modificati on) on Tue02/26/23 at 0800, Until Discontinu ed, Routine [facility] dexMEDEtomi dine 400 mcg in 0.9 % [...] maximum allowed dose, contact prescriber .
[facility] NaCl 0.9% (NS) IV infusion 1,000 mL 2022-04 23:15: 00 02-27 17:23 :24 No 1000mL at 250 mL/hr, CRRT Circuit, CONTINUOUS , Starting on Tue02/25/23 at 1815, Until Tue02/27/23 at 1123, Routine [facility] midodrine (PROAMATINE ) tablet 20 mg 2022-04 11:00: 00 03-02 02:32 :00 No 20mg 20 mg, Enteral, Q8H, First dose (after last modificati on) on Tue02/25/23 at 0600, Until Discontinu ed, Routine [facility] NORepinephr ine 4 mg in 0.9% NaCl [...] at maximum allowed dose, contact prescriber .
[facility] albumin (PLASBUMIN) 25 % injection 87.5 g 2022-04 04:45: 00 02-26 01:00 :00 No 1g/kg 87.5 g (1 g/kg ?87.5 kg), IV Infusion, ONCE, 1 dose, On Faustina 02/24/23 at 2345, 400 mL
Cara cation: HEPATORENA L SYNDROME (DIAGNOSIS )
Comme nts: Albumin 1 g/kg/day for 2 days (up to a maximum of 100 g/day) [facility] CRRT fluid dialysate (PRISMASATE 4K) K 4.0-Ca 2.5, Mg 1.5, HCO3 32, NA 140, CL 113, LACTATE 3, DEX 110, Osm 300 2022-04 03:15: 00 02-27 17:23 :24 No 2800mL/ h 2,800 mL/hr, CRRT Circuit, CONTINUOUS , Starting on Tue02/24/23 at 2215, Until 02/27/23 at 1123, Routine [facility] midodrine (PROAMATINE ) tablet 10 mg 2022-04 03:00: 00 02-25 04:29 :59 No 10mg 10 mg, Enteral, Q8H, First dose (after last modificati on) on Faustina 02/24/23 at 2200, Until Discontinu ed, Routine [facility] CRRT fluid dialysate (PRISMASATE 4K) K 4.0-Ca 2.5, Mg 1.5, HCO3 32, NA 140, CL 113, LACTATE 3, DEX 110, Osm 300 2022-04 01:00: 00 02-25 03:00 :40 No 4000mL/ h 4,000 mL/hr, CRRT Circuit, CONTINUOUS , Starting on Tue02/24/23 at 2000, Until Tue02/24/23 at 2200, Routine [facility] NaCl 0.9% (NS) IV infusion 1,000 mL 2022-04 01:00: 00 02-25 23:05 :02 No 1000mL at 200 mL/hr, CRRT Circuit, CONTINUOUS , Starting on Tue02/24/23 at 2000, Until Tue02/25/23 at 1805, Routine [facility] thiamine (VITAMIN B1) tablet 100 mg 2022-04 14:00: 00 03-05 15:10 :20 No 100mg 100 mg, Enteral, DAILY, First dose (after last modificati on) on Tue02/24/23 at 0900, Until Discontinu ed, Routine [facility] foLIC acid (FOLATE) tablet 1 mg 2022-04 14:00: 00 03-03 21:14 :13 No 1mg 1 mg, Enteral, DAILY, First dose (after last modificati on) on Tue02/24/23 at 0900, Until Discontinu ed [facility] midodrine (PROAMATINE ) tablet 20 mg 2022-04 19:54: 00 02-24 22:29 :47 No 20mg 20 mg, Enteral, Q8H, First dose (after last modificati on) on Tue02/23/23 at 1500, Until Discontinu ed, Routine [facility] albumin (PLASBUMIN) 25 % injection 87.5 g 2022-04 19:34: 00 02-23 20:50 :33 No 1g/kg 87.5 g (1 g/kg ?87.5 kg), IV Infusion, ONCE, 1 dose, On Tue02/23/23 at 1445, 400 mL
Cara cation: HEPATORENA L SYNDROME (DIAGNOSIS )
Comme nts: Albumin 1 g/kg/day for 2 days (up to a maximum of 100 g/day) [facility] lactulose (CEPHULAC) solution 30 mL 2022-04 19:00: 00 02-26 01:25 :38 No 30mL 30 mL, Enteral, TID, First dose (after last modificati on) on Tue02/23/23 at 1400, Until Discontinu ed, [facility] 5 mg 2022-04 19:00: 00 02-23 19:51 :03 No 5mg 5 mg, Enteral, TID, First dose (after last modificati on) on Tue02/23/23 at 1400, Until Discontinu ed, Routine [facility] midodrine (PROAMATINE ) tablet 5 mg 2022-04 13:00: 00 02-23 17:39 :19 No 5mg 5 mg, Oral, TID, First dose on Tue02/23/23 at 0800, Until Discontinu ed, Routine [facility] NaCl 0.9% (NS) injection 5 mL 2022-04 13:00: 00 02-23 14:02 :00 No 5mL 5 mL, Slow IV Push, ONCE, 1 dose, On Tue02/23/23 at 0800, Routine [facility] cefTRIAXone (ROCEPHIN) 1,000 mg in NaCl 0.9% (NS) 100 mL MINI-BAG 2022-04 0 19:30: 00 02-24 19:41 :14 No 1000mg 1,000 mg, IV Piggyback, Q24H ABX, 5 doses, First dose on Tue02/22/23 at 1430, Last dose on Tue02/26/23 at 1430, Administer over 30 Minutes, 100 mL
Reas on for Anti-Infec tive: Empiric Therapy for Suspected Infection< br>Empiric Therapy Site: Abdominal< br>Duratio n of therapy: 5 days [facility] octreotide (SANDOSTATI N) injection 100 mcg 2022-04 19:00: 00 02-24 23:03 :09 No 100ug 100 mcg, Subcutaneo us, TID, First dose on Tue02/22/23 at 1400, Until Discontinu ed, Routine
Indicatio n: Hepatorena l Syndrome [facility] NORepinephr ine 4 mg in 0.9% [...] intravenou s vasopresso r at a time.
[facility] QUEtiapine (SEROQUEL) tablet 25 mg 2022-04 01:00: 00 02-24 19:38 :58 No 25mg 25 mg, Oral, BID, First dose on Tue02/21/23 at 2000, Until Discontinu ed, Routine [facility] dexMEDEtomi dine 200 mcg in 0.9 % [...] at maximum allowed dose, contact prescriber .
[facility] propofoL IV infusion 2022-04 22:25: 53 02-28 [...] vials should be discarded after 12 hours.
[facility] etomidate (AMIDATE) injection 10 mg 2022-04 22:00: 00 02-21 21:16 :00 No 10mg 10 mg, Slow IV Push, ONCE, 1 dose, On Tue02/21/23 at 1700, Routine [facility] succinylcho line (QUELICIN) injection 120 mg 2022-04 22:00: 00 02-21 21:16 :00 No 120mg 120 mg, IV Push, ONCE, 1 dose, On Tue02/21/23 at 1700, Routine [facility] heparin 1,000 unit/mL injection 2,800 Units 2022-04 21:46: 24 03-03 15:40 :07 No 2800U 2,800 Units, Slow IV Push, PRN - SEE INSTRUCTIO NS, Starting on Tue02/21/23 at 1646, Until Faustina 03/03/23 at 0940, Routine, for post HD hep lock [facility] etomidate (AMIDATE) injection 2022-04 21:07: 00 02-22 00:01 :33 No Slow IV Push, ONCE INTRA PROCEDURE, Starting on Tue02/21/23 at 1607, Until Discontinu ed, Routine, Intra-op [facility] succinylcho line (QUELICIN) injection 2022-04 21:07: 00 02-22 00:01 :33 No IV Push, ONCE INTRA PROCEDURE, Starting on Tue02/21/23 at 1607, Until Discontinu ed, Routine, Intra-op [facility] lactulose (CEPHULAC) solution 30 mL 2022-04 19:00: 00 02-23 17:39 :19 No 30mL 30 mL, Enteral, TID, First dose on Tue02/21/23 at 1400, Until Discontinu ed, Routine [facility] flumazeniL (ROMAZICON) injection 0.3 mg 2022-04 18:15: 00 02-21 17:27 :00 No .3mg 0.3 mg, IV Push, ONCE, 1 dose, On Tue02/21/23 at 1315, CHE
Fa culty member approving Restricted medication : TONY QUIROZ [facility] flumazeniL (ROMAZICON) injection 0.2 mg 2022-04 18:00: 00 02-21 17:14 :00 No .2mg 0.2 mg, IV Push, ONCE, 1 dose, On Tue02/21/23 at 1300, STAT
Fa culty member approving Restricted medication : TONY QUIROZ [facility] LORazepam (ATIVAN) injection 2 mg 2022-04 16:00: 00 02-21 16:39 :00 No 2mg 2 mg, Slow IV Push, ONCE, 1 dose, On Tue02/21/23 at 1100, Routine [facility] sulfur hexafluorid e microsphr (LUMASON) injection 5 mL 2022-04 15:30: 00 02-21 15:30 :00 No [id number] 5mL 5 mL, Intravenou s, ONCE, 1 dose, On Tue02/21/23 at 1030, Routine
burn crew member approving Restricted medication : MARIO GARZA [facility] hydrOXYzine (ATARAX) tablet 10 mg 2022-04 09:53: 27 03-03 01:56 :04 No 10mg 10 mg, Oral, Q6HPRN, Starting on Tue02/21/23 at 0453, Until Tue03/02/23 at 1956, Routine, Itching [facility] ondansetron (ZOFRAN (PF)) injection 4 mg 2022-04 03:03: 54 03-06 13:29 :57 No 4mg 4 mg, Slow IV Push, Q6HPRN, Nausea and Vomiting (N/V), Starting on Tue02/20/23 at 2203
Do ses of ondansetro n 16 mg and above need to be administer ed via IV piggyback. For Dose >=24mg ECG monitoring is advisable.
[facility] lactulose (CEPHULAC) solution 45 mL 2022-04 01:00: 00 02-21 05:12 :01 No 45mL 45 mL, Oral, TID, First dose (after last modificati on) on Tue02/20/23 at 2000, Until Discontinu ed, Routine [facility] albumin (PLASBUMIN) 25 % injection 93.5 g 2022-04 14:15: 00 02-21 01:00 :00 No 1g/kg 93.5 g (1 g/kg ?93.5 kg), IV Infusion, ONCE, 1 dose, On Tue02/20/23 at 0915, 400 mL
Cara cation: HEPATORENA L SYNDROME (DIAGNOSIS )
Comme nts: Albumin 1 g/kg/day for 2 days (up to a maximum of 100 g/day) [facility] D5W IV infusion 1,000 mL 2022-04 13:30: 00 02-25 23:05 :02 No 1000mL at 150 mL/hr, IV Infusion, CONTINUOUS , Starting on 02/20/23 at 0830, Until Tue02/25/23 at 1805, Routine
To be used as predilutio n fluid through CRRT circuit once CRRT is started to avoid sodium level overcorrec tion (as dialysate sodium concentrat ion is 140 mml/L and patient's Na is 121)
[facility] lactulose (CEPHULAC) solution 15 mL 2022-04 13:00: 00 02-20 18:05 :41 No 15mL 15 mL, Oral, TID, First dose (after last modificati on) on 02/20/23 at 0800, Until Discontinu ed, Routine [facility] melatonin (MELATIN) tablet 3 mg 2022-04 05:30: 00 02-26 02:42 :34 No 3mg 3 mg, Oral, QHS, First dose on 02/20/23 at 0030, Until Discontinu ed, Routine [facility] rosuvastati n (CRESTOR) tablet 40 mg 2022-04 02:00: 00 02-26 06:24 :54 No 40mg 40 mg, Oral, QHS, First dose on 02/19/23 at 2100, Until Discontinu ed, Routine [facility] D5W IV infusion 1,000 mL 2022-04 [...] 140 mml/L and patient's Na is 121)
[facility] CRRT fluid dialysate (PRISMASATE 4K) K 4.0-Ca 2.5, Mg 1.5, HCO3 32, NA 140, CL 113, LACTATE 3, DEX 110, Osm 300 2022-04 21:30: 00 02-24 17:25 :11 No 2400mL/ h 2,400 mL/hr, CRRT Circuit, CONTINUOUS , Starting on 02/19/23 at 1630, Until Faustina 02/24/23 at 1225, Routine [facility] NORepinephr ine 4 mg in 0.9% NaCl [...] intravenou s vasopresso r at a time.
[facility] albumin (PLASBUMIN) 25 % injection 93.5 g 2022-04 15:00: 00 02-20 12:00 :00 No 1g/kg 93.5 g (1 g/kg ?93.5 kg), IV Infusion, ONCE, 1 dose, On 02/19/23 at 1000, 400 mL
Cara cation: HEPATORENA L SYNDROME (DIAGNOSIS )
Comme nts: Albumin 1 g/kg/day for 2 days (up to a maximum of 100 g/day) [facility] furosemide (LASIX) injection 80 mg 2022-04 15:00: 00 02-19 19:42 :00 No 80mg 80 mg, Slow IV Push, ONCE, 1 dose, On 02/19/23 at 1000, Routine [facility] midodrine (PROAMATINE ) tablet 5 mg 2022-04 14:15: 00 02-19 18:23 :31 No 5mg 5 mg, Oral, Q8H, First dose on 02/19/23 at 0915, Until Discontinu ed, Routine [facility] pantoprazol e (PROTONIX) EC tablet 40 mg 2022-04 14:00: 00 02-26 02:42 :34 No 40mg 40 mg, Oral, DAILY, First dose on 02/19/23 at 0900, Until Discontinu ed, Routine [facility] foLIC acid (FOLATE) tablet 1 mg 2022-04 14:00: 00 02-23 17:39 :19 No 1mg 1 mg, Oral, DAILY, First dose on 02/19/23 at 0900, Until Discontinu ed [facility] thiamine (VITAMIN B1) tablet 100 mg 2022-04 14:00: 00 02-23 17:39 :19 No 100mg 100 mg, Oral, DAILY, First dose on 02/19/23 at 0900, Until Discontinu ed, Routine [facility] magnesium sulfate in water 2 gram/50 mL (4 %) infusion 2 g 2022-04 13:30: 00 02-19 15:20 :00 No 2g 2 g, IV Piggyback, Administer over 60 Minutes, ONCE, 1 dose, On 02/19/23 at 0830, Routine [facility] heparin (porcine) injection 5,000 Units 2022-04 13:00: 00 02-23 00:21 :58 No 5000U 5,000 Units, Subcutaneo us, Q12H, First dose on 02/19/23 at 0800, Until Discontinu ed, Routine [facility] lactulose (CEPHULAC) solution 15 mL 2022-04 13:00: 00 02-20 06:44 :06 No 15mL 15 mL, Oral, BID, First dose on 02/19/23 at 0800, Until Discontinu ed, [facility] ce[facility] (MAXIPIME) 1,000 mg in NaCl 0.9% (NS) 100 mL MINI-BAG 2022-04 12:00: 00 02-22 18:16 :37 No 1000mg 1,000 mg, IV Piggyback, Q12H ABX, 14 doses, First dose on Tue02/19/23 at 0700, Last dose on Tue02/25/23 at 1900, Administer over 30 Minutes, 100 mL
Reas on for Anti-Infec tive: Empiric Therapy for Suspected Infection< br>Empiric Therapy Site: Abdominal< br>Duratio n of therapy: 72 hours [facility] furosemide (LASIX) injection 40 mg 2022-04 11:00: 00 02-19 10:23 :00 No 40mg 40 mg, Slow IV Push, ONCE, 1 dose, On 02/19/23 at 0600, Routine [facility] folic acid 0.8 mg Cap 2022-04 01:32: 29 Yes Take by mouth. [facility] rosuvastati n 40 mg tablet 2022-04 01:32: 29 Yes 40mg Take 1 tablet by mouth at bedtime. [facility] thiamine 100 mg tablet 2022-04 01:32: 29 Yes 100mg Take 1 tablet by mouth in the morning. [facility] Cholecalcif jeannie, Vitamin D3, 50 mcg (2,000 unit) capsule 2022-04 01:31: 38 Yes Take by mouth. [facility] cyanocobala min, vitamin B-12, 2,000 mcg Tab 2022-04 01:31: 38 Yes Take by mouth. [facility] DULoxetine 60 mg capsule 2022-04 01:31: 38 Yes 60mg Take 1 capsule by mouth in the morning. [facility] empaglifloz in 10 mg 2022-04 01:31: 38 Yes 10mg Take 1 tablet by mouth in the morning. [facility] furosemide (LASIX) 40 mg tablet 2022-04 01:31: 38 Yes 40mg Take 1 tablet by mouth in the morning. [facility] losartan 25 mg tablet 2022-04 01:31: 38 Yes 25mg Take 1 tablet by mouth in the morning. [facility] metoprolol succinate XL 50 mg 24 hr tablet 2022-04 01:31: 38 Yes 50mg Take 1 tablet by mouth in the morning. [facility] mirtazapine 15 mg tablet 2022-04 01:31: 38 Yes 15mg Take 1 tablet by mouth at bedtime. [facility] Pantoprazol e 40 mg delayed-rel ease suspension 2022-04 01:31: 38 Yes 40mg Take 40 mg by mouth in the morning. [facility] spironolact one (ALDACTONE) 25 mg tablet 2022-04 01:31: 38 Yes 25mg Take 1 tablet by mouth in the morning. [facility] Vital Signs Vital Name Observation Time Observation Value Comments S cassandra Systolic blood pressure 2023-11-05 06:31:00 162 mm[Hg] [facility] Diastolic blood pressure 2023-11-05 06:31:00 98 mm[Hg] [facility] Heart rate 2023-11-05 06:31:00 103 /min [facility] Body temperature 2023-11-05 06:31:00 37.44 Maru [facility] Respiratory rate 2023-11-05 06:31:00 18 /min [facility] Oxygen saturation in Arterial blood by Pulse oximetry 2023-11-05 06:31:00 97 /min [facility] Body height 2023-11-05 01:46:00 175.3 cm [facility] Body weight 2023-11-05 01:46:00 88.451 kg [facility] BMI 2023-11-05 01:46:00 28.80 kg/m2 [facility] Systolic blood pressure 2023-07-13 20:35:00 123 mm[Hg] [facility] Diastolic blood pressure 2023-07-13 20:35:00 72 mm[Hg] [facility] Heart rate 2023-07-13 20:35:00 84 /min [facility] Body temperature 2023-07-13 20:35:00 37.06 Maru [facility] Respiratory rate 2023-07-13 20:35:00 19 /min [facility] Body height 2023-07-13 20:35:00 177.8 cm [facility] Body weight 2023-07-13 20:35:00 93.016 kg [facility] BMI 2023-07-13 20:35:00 29.42 kg/m2 [facility] Oxygen saturation in Arterial blood by Pulse oximetry 2023-07-13 20:35:00 97 /min [facility] Systolic blood pressure 2023-03-10 19:24:00 101 mm[Hg] [facility] Diastolic blood pressure 2023-03-10 19:24:00 61 mm[Hg] [facility] Heart rate 2023-03-10 19:24:00 101 /min [facility] Body temperature 2023-03-10 19:24:00 36.28 Maru [facility] Respiratory rate 2023-03-10 19:24:00 18 /min [facility] Body weight 2023-03-10 19:24:00 77.6 kg [facility] BMI 2023-03-10 19:24:00 25.25 kg/m2 [facility] Oxygen saturation in Arterial blood by Pulse oximetry 2023-03-10 14:31:00 97 /min [facility] Body height 2023-03-01 02:00:00 175.3 cm [facility] Systolic blood pressure 2023-03-04 17:13:00 142 mm[Hg] [facility] Diastolic blood pressure 2023-03-04 17:13:00 75 mm[Hg] [facility] Heart rate 2023-03-04 17:13:00 78 /min [facility] Body temperature 2023-03-04 17:13:00 37.11 Maru [facility] Respiratory rate 2023-03-04 17:13:00 18 /min [facility] Oxygen saturation in Arterial blood by Pulse oximetry 2023-03-04 17:13:00 96 /min [facility] Body weight 2023-03-03 19:30:00 86.5 kg [facility] BMI 2023-03-03 19:30:00 28.15 kg/m2 [facility] Body height 2023-03-01 02:00:00 175.3 cm [facility] Procedures Procedure Date / Time Performed Performing Clinician Source CT TRAUMA THORAX W CONTRAST 2023-11-05 04:16:45 Andrew Montanez [facility] CT TRAUMA THORACIC SPINE WO CONTRAST 2023-11-05 04:16:45 Andrew Montanez [facility] CT TRAUMA ABDOMEN PELVIS W CONTRAST 2023-11-05 04:16:45 Andrew Montanez [facility] CT TRAUMA LUMBAR SPINE WO CONTRAST 2023-11-05 04:16:45 Andrew Montanez [facility] CT MAXILLOFACIAL/MANDIBLE WO CONTRAST 2023-11-05 04:15:40 Andrew Montanez [facility] CT TRAUMA CERVICAL SPINE WO CONTRAST 2023-11-05 04:15:40 Andrew Montanez [facility] XR KNEE 3 VW RIGHT 2023-11-05 02:46:21 Andrew Montanez [facility] URINALYSIS 2023-11-05 02:30:00 Andrew Montanez [facility] LIPASE 2023-11-05 02:24:00 Andrew Montanez [facility] MAGNESIUM 2023-11-05 02:24:00 Andrew Montanez [facility] COMP. METABOLIC PANEL ([id number]) 2023-11-05 02:24:00 Andrew Montanez [facility] CBC WITH DIFF 2023-11-05 02:24:00 Andrew Montanez [facility] TRANSTHORACIC ECHO (TTE) COMPLETE W/ CONTRAST 2023-08-30 15:25:00 Jose, [facility] MYOCARDIUM PERFUSION STRESS AND REST 2023-08-30 14:40:00 Jose, [facility] MYOCARDIUM PERFUSION STRESS AND REST 2023-08-30 14:40:00 Jose, [facility] MYOCARDIUM PERFUSION STRESS AND REST 2023-08-30 14:40:00 Jose, [facility] MYOCARDIUM PERFUSION STRESS AND REST 2023-08-30 14:40:00 [facility], [facility] REFERRAL- REQUEST/RESPONSE 2023-06-21 06:01:00 Doctor Unassigned, [place] [facility] REFERRAL- REQUEST/RESPONSE 2023-06-03 06:01:00 Doctor Unassigned, [place] [facility] ADVANCE DIRECTIVE 2023-03-16 06:01:00 Doctor Laurel ssigned, [place] [facility] MAGNESIUM 2023-03-10 09:42:00 Jayme Seay Yazidi [facility] BASIC METABOLIC PANEL (NA, K, CL, CO2, GLUCOSE, BUN, CREATININE, CA) 2023-03-10 09:42:00 Jayme Seay Yazidi [facility] CBC WITH DIFF 2023-03-10 09:42:00 Jayme Seay [facility] MAGNESIUM 2023-03-09 11:08:00 Jayme Seay Yazidi [facility] BASIC METABOLIC PANEL (NA, K, CL, CO2, GLUCOSE, BUN, CREATININE, CA) 2023-03-09 11:08:00 Jayme Seay [facility] [facility] CBC WITH DIFF 2023-03-09 11:08:00 Jayme Seay [facility] COMP. METABOLIC PANEL ([id number]) 2023-03-05 09:46:00 Christopher Heck [facility] CBC WITH DIFF 2023-03-05 09:46:00 [facility] BLOOD CULTURE SCREEN 2023-03-05 00:38:00 Daysi Rapp [facility] BLOOD CULTURE SCREEN 2023-03-05 00:31:00 Daysi Rapp [facility] CT STROKE ANGIOGRAM HEAD 2023-03-04 19:07:53 Lisa Turner [facility] CT STROKE ANGIOGRAM NECK 2023-03-04 19:07:53 Lisa Turner [facility] CT STROKE HEAD WO CONTRAST 2023-03-04 19:06:48 Lisa Turner [facility] TROPONIN I 2023-03-04 18:49:00 Lisa Turner [facility] BASIC METABOLIC PANEL (NA, K, CL, CO2, GLUCOSE, BUN, CREATININE, CA) 2023-03-04 18:49:00 Analia Rapp [facility] CBC WITHOUT DIFF 2023-03-04 18:49:00 Lisa Turner [facility] PROTHROMBIN TIME / INR 2023-03-04 18:49:00 Lisa Turner [facility] ACTIVATED PARTIAL THRMPLAS NBA 2023-03-04 18:49:00 [facility] INDIRECT ANTIGLOBULIN TEST 2023-03-04 18:49:00 Christopher Heck [facility] POCT GLUCOSE (AUTOMATED) 2023-03-04 18:43:00 Lisa Turner [facility] CBC WITH DIFF 2023-03-04 11:12:00 Analia Rapp [facility] BASIC METABOLIC PANEL (NA, K, CL, CO2, GLUCOSE, BUN, CREATININE, CA) 2023-03-04 11:12:00 Analia Rapp [facility] MAGNESIUM 2023-03-04 11:12[facility] 2023-03-04 11:12:00 Dionte [facility] PHOSPHORUS 2023-03-04 11:12:00 [facility] 2023-03-04 11:12:00 [facility] BASIC METABOLIC PANEL (NA, K, CL, CO2, GLUCOSE, BUN, CREATININE, CA) 2023-03-04 11:12:00 DionteNoniAnalia [facility] CBC WITH DIFF 2023-03-04 11:12:00 GordoAnalia fowler [facility] XR KUB 2023-03-03 09:03:00 Loghin Mc [facility] XR KUB 2023-03-03 09:03:00 Loghin [facility] XR KUB 2023-03-03 08:46:00 Loghin, [facility] XR KUB 2023-03-03 08:46:00 Loghin [facility] XR KUB 2023-03-03 07:38:00 Loghin, [facility] XR KUB 2023-03-03 07:38:00 Loghin [facility] XR ABDOMEN 1 VW 2023-03-03 05:28:00 DionteAnalia [facility] XR ABDOMEN 1 VW 2023-03-03 05:28:00 Dionte Analia [facility] PROTHROMBIN TIME / INR 2023-03-02 19:10:00 Gibran guardado [facility] / INR 2023-03-02 19:10:00 Gibran guardado [facility] IRON PANEL 2023-03-02 10:36:00 Carlos Vincent [facility] FERRITIN SERUM 2023-03-02 10:36:00 Carlos Vincent [facility] CBC WITH DIFF 2023-03-02 10:36:00 Carlos Vincent [facility] BASIC METABOLIC PANEL (NA, K, CL, CO2, GLUCOSE, BUN, CREATININE, CA) 2023-03-02 10:36:00 Carlos Vincent [facility] MAGNESIUM 2023-03-02 10:36:00 Carlos Vincent [facility] PHOSPHORUS 2023-03-02 10:36:00 VincentCarlos [facility] PHOSPHORUS 2023-03-02 10:36:00 Vincent, Carlos Doran [facility] MAGNESIUM 2023-03-02 10:36:00 Vincent, Carlos Doran [facility] FERRITIN SERUM 2023-03-02 10:36:00 VincentCarlos [facility] BASIC METABOLIC PANEL (NA, K, CL, CO2, GLUCOSE, BUN, CREATININE, CA) 2023-03-02 10:36:00 Vincent, Carlos Doran [facility] IRON PANEL 2023-03-02 10:36:00 Vincent, Carlos Doran [facility] CBC WITH DIFF 2023-03-02 10:36:00 Vincent, Carlos Doran [facility] XR CHEST 1 VW 2023-03-02 06:52:00 Roger Chan [facility] XR CHEST 1 VW 2023-03-02 06:52:00 Roger Chan [facility] CBC WITHOUT DIFF 2023-03-01 23:03:00 VincentCarlos [facility] CBC WITHOUT DIFF 2023-03-01 23:03:00 VincentCarlos [facility] FL MODIFIED BARIUM SWALLOW 2023-03-01 20:00:00 Sincere Arellano [facility] FL MODIFIED BARIUM SWALLOW 2023-03-01 20:00:00 Sincere Arellano [facility] TRANSFUSE PACKED RBC 2023-03-01 14:50:00 Yusuf Green [facility] TRANSFUSE PACKED RBC 2023-03-01 14:50:00 Yusuf Green [facility] PREPARE PACKED RBC 2023-03-01 14:31:00 Yusuf Green mmad [facility] PREPARE PACKED RBC 2023-03-01 14:31:00 Yusuf Green mmad [facility] AMMONIA, PLASMA 2023-03-01 11:20:00 Dany [facility] AMMONIA, PLASMA 2023-03-01 11:20:00 Barratt, Elfego [facility] CBC WITH DIFF 2023-03-01 10:47:00 VincentCarlos lehman [facility] BASIC METABOLIC PANEL (NA, K, CL, CO2, GLUCOSE, BUN, CREATININE, CA) 2023-03-01 10:47:00 Carlos Vincent [facility] MAGNESIUM 2023-03-01 10:47:00 VincentCarlos lehman [facility] MAGNESIUM 2023-03-01 10:47:00 VincentCarlos [facility] BASIC METABOLIC PANEL (NA, K, CL, CO2, GLUCOSE, BUN, CREATININE, CA) 2023-03-01 10:47:00 VincentCarlos lehman [facility] CBC WITH DIFF 2023-03-01 10:47:00 VincentCarlos lehman [facility] CBC WITH DIFF 2023-02-28 09:36:00 Abigail Chavez [facility] MAGNESIUM 2023-02-28 09:36:00 Abigail Chavez [facility] COMP. METABOLIC PANEL ([id number]) 2023-02-28 09:36:00 Abigail Chavez [facility] PROTHROMBIN TIME / INR 2023-02-28 09:36:00 [facility]UM 2023-02-28 09:36:00 Abigail Chavez [facility] COMP. METABOLIC PANEL ([id number]) 2023-02-28 09:36:00 Abigail Chavez [facility] CBC WITH DIFF 2023-02-28 09:36:00 Abigail Chavez [facility] PROTHROMBIN TIME / INR 2023-02-28 09:36:00 Ying Saenz [facility] CBC WITHOUT DIFF 2023-02-28 01:06:00 Abigail Chavez [facility] CBC WITHOUT DIFF 2023-02-28 01:06:00 [facility]ACK[facility] RBC 2023-02-27 21:27:00 Rhoda Severino [facility] TRANSFUSE PACKED RBC 2023-02-27 21:27:00 Rhoda Severino [facility] PREPARE PACKED RBC 2023-02-27 21:19:05 [facility] 2023-02-27 21:19:05 Rhoda [facility] PHOS[facility]US 2023-02-27 19:13:00 Marcie Trujillo Namrata [facility] ABORH CONFIRMATION (LAB ONLY) 2023-02-27 19:13:00 Zion Vila [facility] PHOSPHORUS 2023-02-27 19:13:00 Marcie Trujilloerine [facility] ABORH CONFIRMATION (LAB ONLY) 2023-02-27 19:13:00 [facility] HB ABO GROUPING 2023-02-27 18:39:00 Rhoda Severino [facility] HB ABO GROUPING 2023-02-27 18:39:00 Rhoda Severino [facility] SPUTUM CULTURE 2023-02-27 17:28:00 Rhoda Severino [facility] SPUTUM CULTURE 2023-02-27 17:28:00 Rhoda Severino [facility] US ABDOMEN LIMITED 2023-02-27 15:43:53 Brian Chavez [facility] US ABDOMEN LIMITED 2023-02-27 15:43:53 Brian Chavez [facility] FIBRINOGEN 2023-02-27 14:44:00 Abigail Chavez [facility] ACTIVATED PARTIAL THRMPLAS NBA 2023-02-27 14:44:00 Abigail Chavez [facility] D-DIMER 2023-02-27 14:44:00 Abigail Chavez [facility] DIFF CONSULT BY PATHOLOGIST 2023-02-27 14:44:00 Abigail Chavez [facility] CBC WITH DIFF 2023-02-27 14:44:00 Abigail Chavez [facility] DIFF CONSULT INTERPRETATION 2023-02-27 14:44:00 Abigail Chavez [facility] DIFF CONSULT BY PATHOLOGIST 2023-02-27 14:44:00 Abigail Chavez [facility] CBC WITH DIFF 2023-02-27 14:44:00 Abigail Chavez [facility] D-DIMER 2023-02-27 14:44:00 [facility] PARTIAL THRMPLAS NBA 2023-02-27 14:44:00 Abigail Chavez [facility] FIBRINOGEN 2023-02-27 14:44:00 Abigail Chavez [facility] DIFF CONSULT INTERPRETATION 2023-02-27 14:44:00 Abigail Chavez [facility] CBC WITH DIFF 2023-02-27 09:25:00 Elfego Saenz [facility] MAGNESIUM 2023-02-27 09:25:00 Elfego Saenz [facility] PHOSPHORUS 2023-02-27 09:25:00 Elfego Saenz [facility] COMP. METABOLIC PANEL ([id number]) 2023-02-27 09:25:00 Abigail Chavez [facility] PROTHROMBIN TIME / INR 2023-02-27 09:25:00 [facility] BILI UNCONJUGATED/BILI CONJUG 2023-02-27 09:25:00 Elfego Saenz [facility] PHOSPHORUS 2023-02-27 09:25:00 Elfego Saenz [facility] MAGNESIUM 2023-02-27 09:25:00 Elefgo Saenz [facility] BILI UNCONJUGATED/BILI CONJUG 2023-02-27 09:25:00 Elfego Saenz [facility] COMP. METABOLIC PANEL ([id number]) 2023-02-27 09:25:00 [facility] WITH DIFF 2023-02-27 09:25:00 Elfego Saenz Un [facility] PROTHROMBIN TIME / INR 2023-02-27 09:25:00 Ying Saenz [facility] XR CHEST 1 VW 2023-02-27 05:16:00 Bilgabbie Yusuf Vásquezprior lakeneftali [facility] XR CHEST 1 VW 2023-02-27 05:16:00 [facility] AC PANEL 20 + LACTIC ACID 2023-02-27 03:56:00 Gus [facility] AC PANEL 20 + LACTIC ACID 2023-02-27 03:56:00 Gus [facility] MAGNESIUM 2023-02-26 11:18:00 [facility] COMP. METABOLIC PANEL ([id number]) 2023-02-26 11:18:00 Abigail Chavez [facility] MAGNESIUM 2023-02-26 11:18:00 [facility] COMP. METABOLIC PANEL ([id number]) 2023-02-26 11:18:00 Abigail Chavez [facility] CBC WITH DIFF 2023-02-26 11:13:00 Abigail Chavez [facility] CBC WITH DIFF 2023-02-26 11:13:00 Abigail Chavez [facility] SPUTUM CULTURE 2023-02-26 04:05:00 Abigail Chavez Un [facility] SPUTUM CULTURE 2023-02-26 04:05:00 [facility]LOOD [facility] S[facility]EN 2023-02-25 23:28:00 Kaleigh Chavez [facility] BLOOD CULTURE SCREEN 2023-02-25 23:28:00 Kaleigh Chavez [facility] BLOOD CULTURE SCREEN 2023-02-25 23:17:00 Kaleigh Chavez [facility] CBC WITHOUT DIFF 2023-02-25 23:17:00 Rhoda Severino [facility] BLOOD CULTURE SCREEN 2023-02-25 23:17:00 Kaleigh Chavez [facility] CBC WITHOUT DIFF 2023-02-25 23:17:00 Rhoda Severino [facility] ACUTE CARE ARTERIAL BLOOD GAS 2023-02-25 16:06:00 Maycol [facility] ACUTE CARE ARTERIAL BLOOD GAS 2023-02-25 16:06:00 [facility] 2023-02-25 15:40:00 Rhoda Severino [facility] XR CHEST 1 VW 2023-02-25 15:40:00 Rhoda Severino [facility] CBC WITH DIFF 2023-02-25 10:32:00 Abigail Chavez [facility] MAGNESIUM 2023-02-25 10:32:00 [facility] COMP. METABOLIC PANEL ([id number]) 2023-02-25 10:32:00 Scott [facility] PHOSPHORUS 2023-02-25 10:32:00 [facility]US 2023-02-25 10:32:00 [facility] MAGNESIUM 2023-02-25 10:32:00 Scott [facility] COMP. METABOLIC PANEL ([id number]) 2023-02-25 10:32:00 [facility] WITH DIFF 2023-02-25 10:32:00 Abigail Chavez [facility] BASIC METABOLIC PANEL (NA, K, CL, CO2, GLUCOSE, BUN, CREATININE, CA) 2023-02-24 18:11:00 [facility] BASIC METABOLIC PANEL (NA, K, CL, CO2, GLUCOSE, BUN, CREATININE, CA) 2023-02-24 18:11:00 Scott [facility] BASIC METABOLIC PANEL (NA, K, CL, CO2, GLUCOSE, BUN, CREATININE, CA) 2023-02-24 09:21:00 [facility] CBC WITH DIFF 2023-02-24 09:21:00 Abigail Chavez [facility] MAGNESIUM 2023-02-24 09:21:00 Abigail Chavez [facility] COMP. METABOLIC PANEL ([id number]) 2023-02-24 09:21:00 [facility] PHOSPHORUS 2023-02-24 09:21:00 [facility]US 2023-02-24 09:21:00 [facility] MAGNESIUM 2023-02-24 09:21[facility]OL[facility] PANEL (NA, K, CL, CO2, GLUCOSE, BUN, CREATININE, CA) 2023-02-24 09:21:00 Scott [facility] COMP. METABOLIC PANEL ([id number]) 2023-02-24 09:21:00 Scott [facility] CBC WITH DIFF 2023-02-24 09:21:00 Abigail Chavez [facility] CBC WITH DIFF 2023-02-23 08:35:00 [facility] 2023-02-23 08:35:00 [facility] COMP. METABOLIC PANEL ([id number]) 2023-02-23 08:35:00 Scott [facility] MAGNESIUM 2023-02-23 08:35:00 Scott [facility] COMP. METABOLIC PANEL ([id number]) 2023-02-23 08:35:00 Scott [facility] CBC WITH DIFF 2023-02-23 08:35:00 Abigail Chavez [facility] AC PANEL 20 + LACTIC ACID 2023-02-22 21:51:00 Rasmusse shea [facility] AC PANEL 20 + LACTIC ACID 2023-02-22 21:51:00 Rasmusse shea [facility] AC PANEL 20 + LACTIC ACID 2023-02-22 16:21[facility]00 [facility] + LACTIC ACID 2023-02-22 16:21:00 Kim Lee [facility] HIT - AB 2023-02-22 15:18:00 [facility] FOR [facility] 2023-02-22 15:18:00 Scott [facility] HIT - AB 2023-02-22 15:18:00 Scott [facility] EXTRA SST HOLD FOR [facility] 2023-02-22 15:18:00 [facility] CBC WITHOUT DIFF 2023-02-22 10:07:00 Reanna Francis or [facility] MAGNESIUM 2023-02-22 10:07:00 Yovana Francis [facility] COMP. METABOLIC PANEL ([id number]) 2023-02-22 10:07:00 Kim Francis [facility] PROTHROMBIN TIME / INR 2023-02-22 10:07:00 Kim Francis [facility] MAGNESIUM 2023-02-22 10:07:00 Yovana Francis [facility] COMP. METABOLIC PANEL ([id number]) 2023-02-22 10:07:00 Kim Francis [facility] CBC WITHOUT DIFF 2023-02-22 10:07:00 Reanna Francis or [facility] PROTHROMBIN TIME / INR 2023-02-22 10:07:00 Kim Francis [facility] ACUTE CARE ARTERIAL BLOOD GAS 2023-02-21 22:48:00 John Arellano [facility] ACUTE CARE ARTERIAL BLOOD GAS 2023-02-21 22:48:00 John Arellano [facility] XR KUB 2023-02-21 22:37:00 Jonathan Engle [facility] XR KUB 2023-02-21 22:37:00 Jonathan Engle [facility] XR CHEST 1 VW 2023-02-21 22:34:00 Jonathan Engle [facility] XR CHEST 1 VW 2023-02-21 22:34:00 Jonathan Engle [facility] INTUBATION 2023-02-21 21:08:00 Ute Spencer Un [facility] INTUBATION 2023-02-21 21:08:00 Ute Spencer [facility] AC PANEL 20 + LACTIC ACID 2023-02-21 20:24:00 Ham Chan [facility] AC PANEL 20 + LACTIC ACID 2023-02-21 20:24:00 Ham Chan [facility] AC PANEL 20 + LACTIC ACID 2023-02-21 17:09:00 Jonathan Guillen [facility] AC PANEL 20 + LACTIC ACID 2023-02-21 17:09:00 Jonathan Guillen [facility] HB ECG ROUTINE & RHYTHM STRIP 2023-02-21 15:29:31 [facility]OUTINE & RHYTHM STRIP 2023-02-21 15:29:31 Dustin [facility] TRANSTHORACIC ECHO (TTE) COMPLETE W/ CONTRAST 2023-02-21 15:28:25 [facility] TRANSTHORACIC ECHO (TTE) COMPLETE W/ CONTRAST 2023-02-21 15:28:25 [facility] XR CHEST 1 VW 2023-02-21 11:49:00 Elfego Saenz [facility] XR CHEST 1 VW 2023-02-21 11:49:00 Elfego Saenz [facility] CBC WITH DIFF 2023-02-21 10:30:00 Elfego Saenz [facility] BASIC METABOLIC PANEL (NA, K, CL, CO2, GLUCOSE, BUN, CREATININE, CA) 2023-02-21 10:30:00 [facility] HEPATIC FUNCTION PANEL ([id number]) (ALB,T.PRO,BILI T,BU/BC,ALT,AST,ALK PHOS) 2023-02-21 10:30:00 [facility] PROTHROMBIN TIME / INR 2023-02-21 10:30:00 [facility] HEPATIC FUNCTION PANEL ([id number]) (ALB,T.PRO,BILI T,BU/BC,ALT,AST,ALK PHOS) 2023-02-21 10:30:00 Elfego Saenz [facility] BASIC METABOLIC PANEL (NA, K, CL, CO2, GLUCOSE, BUN, CREATININE, CA) 2023-02-21 10:30:00 Elfego Saenz [facility] CBC WITH DIFF 2023-02-21 10:30:00 Elfego Saenz [facility] PROTHROMBIN TIME / INR 2023-02-21 10:30:00 [facility] XR KUB 2023-02-20 23:05:00 Justa Roche [facility] XR KUB 2023-02-20 23:05:00 Justa Roche [facility] XR KUB 2023-02-20 22:55:00 Sincere Arellano [facility] XR KUB 2023-02-20 22:55:00 Sincere Arellano [facility] XR CHEST 1 VW 2023-02-20 22:49:00 Sincere Arellano [facility] XR CHEST 1 VW 2023-02-20 22:49:00 Sincere Arellano [facility] CT HEAD WO CONTRAST 2023-02-20 20:54:12 Sincere Arellano [facility] CT HEAD WO CONTRAST 2023-02-20 20:54:12 Sincere Arellano [facility] AC PANEL 20 + LACTIC ACID 2023-02-20 19:54:00 [facility] AC PANEL 20 + LACTIC ACID 2023-02-20 19:54:00 Gus Arellano [facility] AMMONIA, PLASMA 2023-02-20 18:47:00 [facility] AMMONIA, PLASMA 2023-02-20 18:47:00 Sincere Arellano [facility] BASIC METABOLIC PANEL (NA, K, CL, CO2, GLUCOSE, BUN, CREATININE, CA) 2023-02-20 18:46:00 Sincere Arellano [facility] HIV 1/2 AG-AB WITH REFLEX 2023-02-20 18:46:00 Elfego Saenz [facility] BASIC METABOLIC PANEL (NA, K, CL, CO2, GLUCOSE, BUN, CREATININE, CA) 2023-02-20 18:46:00 Sincere Arellano [facility] HIV 1/2 AG-AB WITH REFLEX 2023-02-20 18:46:00 Elfego Saenz [facility] POCT GLUCOSE (AUTOMATED) 2023-02-20 16:12:00 Ying Vila [facility] POCT GLUCOSE (AUTOMATED) 2023-02-20 16:12:00 Ying Vila [facility] PHOSPHORUS 2023-02-20 09:25:00 Sincere Arellano [facility] MAGNESIUM 2023-02-20 09:25:00 Sincere Arellano [facility] BASIC METABOLIC PANEL (NA, K, CL, CO2, GLUCOSE, BUN, CREATININE, CA) 2023-02-20 09:25:00 Adan Sincere [facility] CBC WITH DIFF 2023-02-20 09:25:00 Sincere Arellano [facility] PROTHROMBIN TIME / INR 2023-02-20 09:25:00 [facility] PHOSPHORUS 2023-02-20 09:25:00 Sincere Arellano [facility] MAGNESIUM 2023-02-20 09:25:00 Sincere Arellano [facility] BASIC METABOLIC PANEL (NA, K, CL, CO2, GLUCOSE, BUN, CREATININE, CA) 2023-02-20 09:25:00 Adan Sincere [facility] CBC WITH DIFF 2023-02-20 09:25:00 Sincere Arellano [facility] PROTHROMBIN TIME / INR 2023-02-20 09:25:00 [facility] ABDOMEN PELVIS WO CONTRAST 2023-02-20 07:07:32 Elfego Saenz [facility] CT ABDOMEN PELVIS WO CONTRAST 2023-02-20 07:07:32 Elfego Saenz [facility] XR CHEST 1 VW 2023-02-19 22:17:00 Yusuf Green [facility] XR CHEST 1 VW 2023-02-19 22:17:00 Yusuf Green [facility] AMMONIA, PLASMA 2023-02-19 13:30:00 Sincere Arellano [facility] AMMONIA, PLASMA 2023-02-19 13:30:00 Sincere [facility] COMP. METABOLIC PANEL ([id number]) 2023-02-19 12:47:00 Sincere Arellano [facility] OSMOLALITY, SERUM OR PLASMA 2023-02-19 12:47:00 Faustina Bourgeois [facility] HEPATIC FUNCTION PANEL ([id number]) (ALB,T.PRO,BILI T,BU/BC,ALT,AST,ALK PHOS) 2023-02-19 12:47:00 Elfego Saenz [facility] OSMOLALITY, SERUM OR PLASMA 2023-02-19 12:47:00 Faustina Bourgeois [facility] HEPATIC FUNCTION PANEL ([id number]) (ALB,T.PRO,BILI T,BU/BC,ALT,AST,ALK PHOS) 2023-02-19 12:47:00 Elfego Saenz [facility] COMP. METABOLIC PANEL ([id number]) 2023-02-19 12:47:00 Sincere Arellano [facility] [facility] BLOOD CULTURE SCREEN 2023-02-19 09:50:00 Wayne Saenz [facility] BLOOD CULTURE SCREEN 2023-02-19 09:50:00 Wayne Saenz [facility] BLOOD CULTURE SCREEN 2023-02-19 09:49:00 Wayne Saenz [facility] BLOOD CULTURE SCREEN 2023-02-19 09:49:00 Wayne Saenz [facility] URINE CULTURE 2023-02-19 09:17:00 Elfego Saenz Un [facility] URINE CULTURE 2023-02-19 09:17:00 [facility]go [facility] 2023-02-19 07:46:55 Abdias Cook [facility] US RETROPERITONEAL LIMITED 2023-02-19 07:46:55 Abdias Cook [facility] SODIUM, URINE RANDOM 2023-02-19 07:21:00 [facility] 2023-02-19 07:21[facility]00 [facility] CREAT[facility], URINE RANDOM 2023-02-19 07:21:00 Abdias Rothman [facility] URINALYSIS 2023-02-19 07:21:00 Elfego Saenz [facility] URINALYSIS 2023-02-19 07:21:00 Elfego Saenz [facility] CREATININE, URINE RANDOM 2023-02-19 07:21:00 Abdias Rothman [facility] POTASSIUM, URINE RANDOM 2023-02-19 07:21:00 Abdias Arora [facility] SODIUM, URINE RANDOM 2023-02-19 07:21:00 Abdias Rice [facility] HEPATITIS B SURFACE ANTIBODY 2023-02-19 07:11:00 [facility] ([facility]CV[facility] BY QUANTITATIVE NAAT 2023-02-19 07:11:00 Maycol [facility] HCV ANTIBODY 2023-02-19 07:11:00 Rhoda Severino [facility] ETHANOL 2023-02-19 07:11:00 Elfego Saenz [facility] MAGNESIUM 2023-02-19 07:11:00 Rhoda Severino [facility] PHOSPHORUS 2023-02-19 07:11:00 Maycol [facility] HEPATITIS B SURFACE ANTIGEN 2023-02-19 07:11:00 Sincere Arellano [facility] HBC ANTIBODY (IGM & IGG) 2023-02-19 07:11:00 Kortney Arellano and [facility] SYPHILIS IGG/IGM 2023-02-19 07:11:00 Elfego Saenz [facility] PHOSPHORUS 2023-02-19 07:11:00 Rhoda Severino [facility] MAGNESIUM 2023-02-19 07:11:00 [facility] 2023-02-19 07:11:00 Elfego Saenz [facility] HEPATITIS B SURFACE ANTIBODY 2023-02-19 07:11:00 [facility]FACE ANTIGEN 2023-02-19 07:11:00 Sincere Arellano [facility] HCV ANTIBODY 2023-02-19 07:11:00 Maycol [facility] HBC ANTIBODY (IGM & IGG) 2023-02-19 07:11:00 Kilo Arellano [facility] HEPATITIS C VIRUS (HCV) BY QUANTITATIVE NAAT 2023-02-19 07:11:00 [facility] SYPHILIS [facility]GG/IGM 2023-02-19 07:11:00 [facility] VW 2023-02-19 06:36:00 Adriana Severinoesha [facility] XR CHEST 1 VW 2023-02-19 06:36:00 Adriana Severinoesha [facility] PROTHROMBIN TIME / INR 2023-02-19 05:51:[address] [facility] PROTHROMBIN TIME / INR 2023-02-19 05:51:00 Quin Velazquezgus [facility] AC PANEL 21 + LACTIC ACID 2023-02-19 05:24:00 Adriana [facility] AC PANEL 21 + LACTIC ACID 2023-02-19 05:24:00 Adriana [facility] MRSA / MSSA SCREEN BY PAULA GUSMAN 2023-02-19 05:20:00 [facility] COMP. METABOLIC PANEL (55507) 2023-02-19 05:20:00 Abdias Cook [facility] HEPATIC FUNCTION PANEL (22139) (ALB,T.PRO,BILI T,BU/BC,ALT,AST,ALK PHOS) 2023-02-19 05:20:00 Abdias Cook [facility] CBC WITH DIFF 2023-02-19 05:20:00 Heydi Cook [facility] HEPATITIS B CORE ANTIBODY IGM 2023-02-19 05:20:00 [facility] HE[facility] SURFACE ANTIGEN 2023-02-19 05:20:00 [facility] HE[facility]IS A VIRUS ANTIBODY IGM 2023-02-19 05:20:00 [facility] HEPATIC FUNCTION PANEL (14611) (ALB,T.PRO,BILI T,BU/BC,ALT,AST,ALK PHOS) 2023-02-19 05:20:00 Abdias Cook [facility] COMP. METABOLIC PANEL ([id number]) 2023-02-19 05:20:00 Abdias Cook [facility] CBC WITH DIFF 2023-02-19 05:20:00 Heydi Cook [facility] HEPATITIS B SURFACE ANTIGEN 2023-02-19 05:20:00 [facility] HE[facility] A VIRUS ANTIBODY IGM 2023-02-19 05:20:00 aMycol [facility] HEPATITIS B CORE ANTIBODY IGM 2023-02-19 05:20:00 [facility] MRSA / MSSA SCREEN BY PCRPAULA 2023-02-19 05:20:00 Abdias Cook [facility] DISCLOSURE AND CONSENT, MEDICAL AND SURGICAL PROCEDURES 2023-02-19 05:01:00 Doctor Unassigned, [place] [facility] NO SHOW OR MISSED APPOINTMENT POLICY ACKNOWLEDGEMENT 2022-11-18 21:24:55 Doctor Unassigned, [place] [facility] PATIENT FINANCIAL POLICY 2022-11-18 21:24:37 Doctor Unassigned, [place] [facility] NOTICE OF PRIVACY PRACTICES 2022-11-18 21:24:20 Doctor Unassigned, [place] [facility] CONSENT/REFUSAL FOR DIAGNOSIS AND TREATMENT 2022-11-18 21:24:05 Doctor Unassigned, [place] [facility] ASSIGNMENT OF BENEFITS 2022-11-18 21:23:50 Docto r Unassigned, [place] [facility] Encounters Start Date/Time End Date/Time Encounter Type Admission Type Attending [facility] Care Department Encounter ID Source 2023-11-04 20:49:00 2023-11-05 01:51:00 Emergency X ANDREW MONTANEZ [facility] ERT [id number] [facility] 2023-11-04 20:49:00 2023-11-05 01:51:00 Emergency Andrew Montanez [facility] 1.2.840.114 350.1.13.10 4.2.7.2.686 [id number] [facility] 2023-09-28 13:00:00 2023-09-28 13:00:00 Outpatient R BRENDEN HICKEY [facility] [id number] [facility] 2023-09-22 00:00:00 2023-09-22 15:52:01 Telephone [address]ickey [facility] MEDICAL OFFICE BUILDING 1.2.840.114 350.1.13.10 4.2.7.2.686 [id number] [facility] 2023-08-31 00:00:00 2023-08-31 10:42:14 Telephone Jose [facility] PROFESSIO NAL BUILDING 1.2.840.114 350.1.13.10 4.2.7.2.686 [id number] [facility] 2023-08-30 07:35:05 2023-08-30 23:59:00 Hospital Encounter Jose [facility] 1.2.840.114 350.1.13.10 4.2.7.2.686 [id number] [facility] 2023-08-30 07:34:50 2023-08-30 07:34:50 Hospital Encounter Jose, [facility] 1.2.840.114 350.1.13.10 4.2.7.2.686 [id number] [facility] 2023-08-30 07:34:43 2023-08-30 07:34:43 Hospital Encounter Jose, [facility] 1.2.840.114 350.1.13.10 4.2.7.2.686 [id number] [facility] 2023-08-30 07:34:36 2023-08-30 07:34:36 [facility] 1.2.840.114 350.1.13.10 4.2.7.2.686 [id number] [facility] 2023-08-30 07:34:05 2023-08-30 07:34:05 Outpatient R [facility] [id number] [facility] 2023-08-30 07:34:05 2023-08-30 07:34:05 [facility] 1.2.840.114 350.1.13.10 4.2.7.2.686 [id number] [facility] 2023-07-21 08:00:00 2023-07-21 08:00:00 Outpatient R [facility] [id number] [facility] 2023-07-13 15:40:00 2023-07-13 15:55:21 [id number] 2023-07-13 15:40:00 2023-07-13 15:55:21 Office Visit Jose [facility] 1.2.840.114 350.1.13.10 4.2.7.2.686 [id number] [facility] 2023-06-21 00:00:00 2023-06-21 00:00:00 Orders Only Doctor Unassigned, [place] [facility] 1.2.840.114 350.1.13.10 4.2.7.2.686 [id number] [facility] 2023-06-03 00:00:00 2023-06-03 00:00:00 Orders Only Doctor Unassigned, [place] [facility] 1.2.840.114 350.1.13.10 4.2.7.2.686 [id number] [facility] 2023-03-16 00:00:00 2023-03-16 00:00:00 Orders Only Doctor Unassigned, [place] [facility] 1.2.840.114 350.1.13.10 4.2.7.2.686 [id number] [facility] 2023-03-11 00:00:00 2023-03-11 00:00:00 Transition of Care Cielo Joy [facility] 1.2.840.114 350.1.13.10 4.2.7.2.686 [id number] [facility] 2023-02-18 23:56:00 2023-03-10 14:51:00 Inpatient U [facility] T[place] [id number] [facility] 2023-02-18 23:56:00 2023-03-10 14:51:00 Hospital Encounter Zion Vila, Tony Ballard, Alan Turner, Arpit Choi [facility] 1.2840.114 350.1.13.10 4.2.7.2.686 [id number] [facility] 2023-03-03 00:00:00 2023-03-03 00:00:00 Travel 1.2.840.1 [id number] 3.104.2.7 [id number] .8 1.2.840.114 350.1.13.10 4.2.7.3.698 [id number] [facility] 2023-02-21 16:17:36 2023-02-21 16:17:36 Anesthesia Event Ute Spencer 1.2.840.1 [id number] 3.104.2.7 .[id number] [id number] [facility] 2023-02-21 00:00:00 2023-02-21 00:00:00 Case Management Zeynep Orozco 1.2.840.1 [id number] 3.104.2.7 [id number] [facility] 2022-11-18 16:27:08 2022-11-18 23:59:00 Outpatient R RADIOLOGY [facility] [id number] [facility] 2022-11-18 16:27:08 2022-11-18 23:59:00 Hospital Encounter Radiology [facility] 1.2.840.114 350.1.13.10 4.2.7.2.686 [id number] [facility] 2022-10-08 05:00:00 2022-10-08 05:00:00 Outpatient ABBI ALICIA [facility] [id number] [facility] Results Test Description Test Time Test Comments Results Result Comments Source CT TRAUMA CERVICAL SPINE WO CONTRAST 05:33:21 Ordering physician: ANDREW MONTANEZ Indication: Acute neck trauma, fall Comparison: None Technique: Axial images of the cervical spine were performed withoutadministration of intravenous contrast material. Images were reformatted incoronal and sagittal plane. CT scan was performed according to ALARA (aslow as reasonably achievable) policy. Findings: No acute fracture or dislocation of the cervical spine isappreciated. There is no apical pneumothorax. The cervical spine is innormal alignment. No significant central canal stenosis is appreciated. [facility] CT MAXILLOFACIAL/M ANDIBLE WO CONTRAST 05:31:39 ORDERING PHYSICIAN:ANDREW POLK CLINICAL INFORMATION: ? Facial trauma, blunt RIGHT ORBITAL CONTUSION COMPARISON: None Technique: ? CT of the facial bones performed without IV contrast.Multiplanar reformats were also obtained. This study was performedaccording to ALARA principle for radiation dose reduction. Findings: There is a nondisplaced transversely oriented fracture involving theanterior aspect of the inferior right orbital wall. This is only well seenon the sagittal reformats. Minimal mucosal thickening is seen in the rightmaxillary sinus. Intraorbital structures are within normal limits with noevidence of retrobulbar hematomas or retroconal fat stranding. Theremainder of the paranasal sinuses and mastoid air cells remain wellaerated. Limited visualization of the intracranial structures shows noevidence of acute abnormalities. Partially visualized upper cervical spineis also within normal limits. [facility] CT TRAUMA THORAX W CONTRAST 05:23:19 EXAM: CT TRAUMA THORAX W CONTRAST, CT TRAUMA THORACIC SPINE WO CONTRAST, CTTRAUMA ABDOMEN PELVIS W CONTRAST, CT TRAUMA LUMBAR SPINE WO CONTRAST ORDERING CLINICIAN: ? ANDREW POLK HISTORY: Chest and abdominal pain. Back pain. Fall greater than 20 feet. COMPARISON: none TECHNIQUE: CT of the chest, abdomen, and pelvis with IV contrast. CT of thethoracic and lumbar spine. Coronal and sagittal reformatted images wereobtained. ?CT performed according to ALARA principles. TECHNICAL QUALITY: Adequate CT OF THE CHEST WITH CONTRAST: Minimal subpleural atelectasis or scarring is seen in the right lower lobe.The lungs are otherwise essentially clear. There is a 3 mm subpleuralnodule in the anterior right upper lobe (8:56). ?There is no pneumothorax.The trachea and bronchi are patent to the segmental level. ?There is nopathologic lymphadenopathy. ?There are no pleural effusions. ?The thyroidappears normal. The heart is normal in size. ?The aorta and pulmonary arteries are normalin caliber. ?No pulmonary embolus or aortic dissection. CT OF THE ABDOMEN WITH IV CONTRAST:There is diffuse fatty infiltration of the liver. Mild surface nodularitypresent of the hepatic parenchyma. The liver measures 18.9 cm in AP lengthand 19 cm in craniocaudal length. There is recanalization of the umbilicalvein. The patient is status post cholecystectomy. The spleen is enlargedand measures 14.2 x 6.5 x 13.2 cm. The pancreas is normal. The adrenals arenormal. ?The kidneys are normal. The stomach and small bowel appearunremarkable. There appears to be mild wall thickening of the cecum andproximal/mid ascending colon, though evaluation of the ascending colon issomewhat limited by under distention. The colon appears otherwiseunremarkable. The patient is post appendectomy. The intra-abdominal vasculature isnormal. There is no free fluid. ?There is no free air or pathologiclymphadenopathy . ?Multiple small mesenteric lymph nodes are seen in theupper abdominal mesentery. Minimal haziness of the upper abdominalmesenteric fat. CT OF THE PELVIS WITH IV CONTRAST:The rectum and sigmoid are normal. The distal ureters and bladder arenormal. ?There is no free fluid or pathologic lymphadenopathy in thepelvis. The prostate is normal in size. No significant soft tissue hematoma. There is scarring in the subcutaneoussoft tissues of the right back. Multiple old healed right-sided rib fractures are present. Postoperativeplating present of the right posterior fifth through ninth ribs. There issubtle irregularity of the anterior right fifth through seventh ribscompatible with nondisplaced acute rib fractures. The sternum is intact. Noclear acute pelvic fracture. CT OF THE THORACIC SPINE:There are 12 rib-bearing thoracic vertebral bodies. Vertebral body heightand alignment appear normal. ? No acute fracture is identified. ?Disc spaceheight appears preserved. ?Minor degenerative changes present with smallanterior osteophytes in the midthoracic spine. No significant central canalor foraminal stenosis. CT OF THE LUMBAR SPINE:There are 5 lumbar-type vertebral bodies. There is minimal 1 mmdegenerative retrolisthesis of L2 on L3 and L3 on L4. Vertebral body heightand alignment are otherwise preserved. ?No acute fracture is identified. Moderate loss of disc space height present at L4-5 and L5-S1. Mildposterior loss of disc space height at L2-3 and L3-4. Multilevel discbulging and osteophyte formation present without significant central canalstenoses. There is partial sacralization of L5 on the right. Facetarthropathy present in the lower lumbar spine. There is moderate bilateralforaminal stenosis at L4-5. No other high-grade foraminal stenosis. [facility] CT TRAUMA THORACIC SPINE WO CONTRAST 05:23:19 EXAM: CT TRAUMA THORAX W CONTRAST, CT TRAUMA THORACIC SPINE WO CONTRAST, CTTRAUMA ABDOMEN PELVIS W CONTRAST, CT TRAUMA LUMBAR SPINE WO CONTRAST ORDERING CLINICIAN: ? ANDREW ?CORIE HISTORY: Chest and abdominal pain. Back pain. Fall greater than 20 feet. COMPARISON: none TECHNIQUE: CT of the chest, abdomen, and pelvis with IV contrast. CT of thethoracic and lumbar spine. Coronal and sagittal reformatted images wereobtained. ?CT performed according to ALARA principles. TECHNICAL QUALITY: Adequate CT OF THE CHEST WITH CONTRAST: Minimal subpleural atelectasis or scarring is seen in the right lower lobe.The lungs are otherwise essentially clear. There is a 3 mm subpleuralnodule in the anterior right upper lobe (8:56). ?There is no pneumothorax.The trachea and bronchi are patent to the segmental level. ?There is nopathologic lymphadenopathy. ?There are no pleural effusions. ?The thyroidappears normal. The heart is normal in size. ?The aorta and pulmonary arteries are normalin caliber. ?No pulmonary embolus or aortic dissection. CT OF THE ABDOMEN WITH IV CONTRAST:There is diffuse fatty infiltration of the liver. Mild surface nodularitypresent of the hepatic parenchyma. The liver measures 18.9 cm in AP lengthand 19 cm in craniocaudal length. There is recanalization of the umbilicalvein. The patient is status post cholecystectomy. The spleen is enlargedand measures 14.2 x 6.5 x 13.2 cm. The pancreas is normal. The adrenals arenormal. ?The kidneys are normal. The stomach and small bowel appearunremarkable. There appears to be mild wall thickening of the cecum andproximal/mid ascending colon, though evaluation of the ascending colon issomewhat limited by under distention. The colon appears otherwiseunremarkable. The patient is post appendectomy. The intra-abdominal vasculature isnormal. There is no free fluid. ?There is no free air or pathologiclymphadenopathy . ?Multiple small mesenteric lymph nodes are seen in theupper abdominal mesentery. Minimal haziness of the upper abdominalmesenteric fat. CT OF THE PELVIS WITH IV CONTRAST:The rectum and sigmoid are normal. The distal ureters and bladder arenormal. ?There is no free fluid or pathologic lymphadenopathy in thepelvis. The prostate is normal in size. No significant soft tissue hematoma. There is scarring in the subcutaneoussoft tissues of the right back. Multiple old healed right-sided rib fractures are present. Postoperativeplating present of the right posterior fifth through ninth ribs. There issubtle irregularity of the anterior right fifth through seventh ribscompatible with nondisplaced acute rib fractures. The sternum is intact. Noclear acute pelvic fracture. CT OF THE THORACIC SPINE:There are 12 rib-bearing thoracic vertebral bodies. Vertebral body heightand alignment appear normal. ? No acute fracture is identified. ?Disc spaceheight appears preserved. ?Minor degenerative changes present with smallanterior osteophytes in the midthoracic spine. No significant central canalor foraminal stenosis. CT OF THE LUMBAR SPINE:There are 5 lumbar-type vertebral bodies. There is minimal 1 mmdegenerative retrolisthesis of L2 on L3 and L3 on L4. Vertebral body heightand alignment are otherwise preserved. ?No acute fracture is identified. Moderate loss of disc space height present at L4-5 and L5-S1. Mildposterior loss of disc space height at L2-3 and L3-4. Multilevel discbulging and osteophyte formation present without significant central canalstenoses. There is partial sacralization of L5 on the right. Facetarthropathy present in the lower lumbar spine. There is moderate bilateralforaminal stenosis at L4-5. No other high-grade foraminal stenosis. [facility] CT TRAUMA ABDOMEN PELVIS W CONTRAST 05:23:19 EXAM: CT TRAUMA THORAX W CONTRAST, CT TRAUMA THORACIC SPINE WO CONTRAST, CTTRAUMA ABDOMEN PELVIS W CONTRAST, CT TRAUMA LUMBAR SPINE WO CONTRAST ORDERING CLINICIAN: ? ANDREW POLK HISTORY: Chest and abdominal pain. Back pain. Fall greater than 20 feet. COMPARISON: none TECHNIQUE: CT of the chest, abdomen, and pelvis with IV contrast. CT of thethoracic and lumbar spine. Coronal and sagittal reformatted images wereobtained. ?CT performed according to ALARA principles. TECHNICAL QUALITY: Adequate CT OF THE CHEST WITH CONTRAST: Minimal subpleural atelectasis or scarring is seen in the right lower lobe.The lungs are otherwise essentially clear. There is a 3 mm subpleuralnodule in the anterior right upper lobe (8:56). ?There is no pneumothorax.The trachea and bronchi are patent to the segmental level. ?There is nopathologic lymphadenopathy. ?There are no pleural effusions. ?The thyroidappears normal. The heart is normal in size. ?The aorta and pulmonary arteries are normalin caliber. ?No pulmonary embolus or aortic dissection. CT OF THE ABDOMEN WITH IV CONTRAST:There is diffuse fatty infiltration of the liver. Mild surface nodularitypresent of the hepatic parenchyma. The liver measures 18.9 cm in AP lengthand 19 cm in craniocaudal length. There is recanalization of the umbilicalvein. The patient is status post cholecystectomy. The spleen is enlargedand measures 14.2 x 6.5 x 13.2 cm. The pancreas is normal. The adrenals arenormal. ?The kidneys are normal. The stomach and small bowel appearunremarkable. There appears to be mild wall thickening of the cecum andproximal/mid ascending colon, though evaluation of the ascending colon issomewhat limited by under distention. The colon appears otherwiseunremarkable. The patient is post appendectomy. The intra-abdominal vasculature isnormal. There is no free fluid. ?There is no free air or pathologiclymphadenopathy . ?Multiple small mesenteric lymph nodes are seen in theupper abdominal mesentery. Minimal haziness of the upper abdominalmesenteric fat. CT OF THE PELVIS WITH IV CONTRAST:The rectum and sigmoid are normal. The distal ureters and bladder arenormal. ?There is no free fluid or pathologic lymphadenopathy in thepelvis. The prostate is normal in size. No significant soft tissue hematoma. There is scarring in the subcutaneoussoft tissues of the right back. Multiple old healed right-sided rib fractures are present. Postoperativeplating present of the right posterior fifth through ninth ribs. There issubtle irregularity of the anterior right fifth through seventh ribscompatible with nondisplaced acute rib fractures. The sternum is intact. Noclear acute pelvic fracture. CT OF THE THORACIC SPINE:There are 12 rib-bearing thoracic vertebral bodies. Vertebral body heightand alignment appear normal. ? No acute fracture is identified. ?Disc spaceheight appears preserved. ?Minor degenerative changes present with smallanterior osteophytes in the midthoracic spine. No significant central canalor foraminal stenosis. CT OF THE LUMBAR SPINE:There are 5 lumbar-type vertebral bodies. There is minimal 1 mmdegenerative retrolisthesis of L2 on L3 and L3 on L4. Vertebral body heightand alignment are otherwise preserved. ?No acute fracture is identified. Moderate loss of disc space height present at L4-5 and L5-S1. Mildposterior loss of disc space height at L2-3 and L3-4. Multilevel discbulging and osteophyte formation present without significant central canalstenoses. There is partial sacralization of L5 on the right. Facetarthropathy present in the lower lumbar spine. There is moderate bilateralforaminal stenosis at L4-5. No other high-grade foraminal stenosis. [facility] CT TRAUMA LUMBAR SPINE WO CONTRAST 05:23:19 EXAM: CT TRAUMA THORAX W CONTRAST, CT TRAUMA THORACIC SPINE WO CONTRAST, CTTRAUMA ABDOMEN PELVIS W CONTRAST, CT TRAUMA LUMBAR SPINE WO CONTRAST ORDERING CLINICIAN: ? ANDREW ?CORIE HISTORY: Chest and abdominal pain. Back pain. Fall greater than 20 feet. COMPARISON: none TECHNIQUE: CT of the chest, abdomen, and pelvis with IV contrast. CT of thethoracic and lumbar spine. Coronal and sagittal reformatted images wereobtained. ?CT performed according to ALARA principles. TECHNICAL QUALITY: Adequate CT OF THE CHEST WITH CONTRAST: Minimal subpleural atelectasis or scarring is seen in the right lower lobe.The lungs are otherwise essentially clear. There is a 3 mm subpleuralnodule in the anterior right upper lobe (8:56). ?There is no pneumothorax.The trachea and bronchi are patent to the segmental level. ?There is nopathologic lymphadenopathy. ?There are no pleural effusions. ?The thyroidappears normal. The heart is normal in size. ?The aorta and pulmonary arteries are normalin caliber. ?No pulmonary embolus or aortic dissection. CT OF THE ABDOMEN WITH IV CONTRAST:There is diffuse fatty infiltration of the liver. Mild surface nodularitypresent of the hepatic parenchyma. The liver measures 18.9 cm in AP lengthand 19 cm in craniocaudal length. There is recanalization of the umbilicalvein. The patient is status post cholecystectomy. The spleen is enlargedand measures 14.2 x 6.5 x 13.2 cm. The pancreas is normal. The adrenals arenormal. ?The kidneys are normal. The stomach and small bowel appearunremarkable. There appears to be mild wall thickening of the cecum andproximal/mid ascending colon, though evaluation of the ascending colon issomewhat limited by under distention. The colon appears otherwiseunremarkable. The patient is post appendectomy. The intra-abdominal vasculature isnormal. There is no free fluid. ?There is no free air or pathologiclymphadenopathy . ?Multiple small mesenteric lymph nodes are seen in theupper abdominal mesentery. Minimal haziness of the upper abdominalmesenteric fat. CT OF THE PELVIS WITH IV CONTRAST:The rectum and sigmoid are normal. The distal ureters and bladder arenormal. ?There is no free fluid or pathologic lymphadenopathy in thepelvis. The prostate is normal in size. No significant soft tissue hematoma. There is scarring in the subcutaneoussoft tissues of the right back. Multiple old healed right-sided rib fractures are present. Postoperativeplating present of the right posterior fifth through ninth ribs. There issubtle irregularity of the anterior right fifth through seventh ribscompatible with nondisplaced acute rib fractures. The sternum is intact. Noclear acute pelvic fracture. CT OF THE THORACIC SPINE:There are 12 rib-bearing thoracic vertebral bodies. Vertebral body heightand alignment appear normal. ? No acute fracture is identified. ?Disc spaceheight appears preserved. ?Minor degenerative changes present with smallanterior osteophytes in the midthoracic spine. No significant central canalor foraminal stenosis. CT OF THE LUMBAR SPINE:There are 5 lumbar-type vertebral bodies. There is minimal 1 mmdegenerative retrolisthesis of L2 on L3 and L3 on L4. Vertebral body heightand alignment are otherwise preserved. ?No acute fracture is identified. Moderate loss of disc space height present at L4-5 and L5-S1. Mildposterior loss of disc space height at L2-3 and L3-4. Multilevel discbulging and osteophyte formation present without significant central canalstenoses. There is partial sacralization of L5 on the right. Facetarthropathy present in the lower lumbar spine. There is moderate bilateralforaminal stenosis at L4-5. No other high-grade foraminal stenosis. [facility] XR KNEE 3 VW RIGHT 03:27:54 Ordering Physician: FRIDA POLK HISTORY: Right knee pain COMPARISON: none FINDINGS:Three views of the right knee. ?There is no fracture or dislocation. ?Thereis no joint effusion. The joint spaces are normal. ?Soft tissue edema isseen. ?Atherosclerotic calcifications also seen in the arteries. No pubicbone bodies are seen in the soft tissues. [facility] [id number] 06:01:28* Test Item Value Reference Range Interpretation Comme nts Blood Culture-Aerobic (test code = 73967-6) No organisms isolated No growth Previous preliminary verified result was Culture In Progress on 03/05/2023 at 0301 CSTPrevious preliminary verified result was No growth at 24 hours on 03/06/2023 at 0001 CSTPrevious preliminary verified result was No growth at 48 hours on 03/07/2023 at 0001 CSTPrevious preliminary verified result was No growth at 72 hours on 03/08/2023 at 0001 GROCERY STORE CLERK Blood Culture-Anaerobic (test code = 23136-0) No organisms isolated No growth Previous preliminary verified result was Culture In Progress on 03/05/2023 at 0301 CSTPrevious preliminary verified result was No growth at 24 hours on 03/06/2023 at 0001 CSTPrevious preliminary verified result was No growth at 48 hours on 03/07/2023 at 0001 CSTPrevious preliminary verified result was No growth at 72 hours on 03/08/2023 at 0001 GROCERY STORE CLERK Lab Interpretation (test code = 33026-4) Normal [facility] [id number] 06:01:28* Test Item Value Reference Range Interpretation Comme nts Blood Culture-Aerobic (test code = 13080-3) No organisms isolated No growth Previous preliminary verified result was Culture In Progress on 03/05/2023 at 0301 CSTPrevious preliminary verified result was No growth at 24 hours on 03/06/2023 at 0001 CSTPrevious preliminary verified result was No growth at 48 hours on 03/07/2023 at 0001 CSTPrevious preliminary verified result was No growth at 72 hours on 03/08/2023 at 0001 GROCERY STORE CLERK Blood Culture-Anaerobic (test code = 51850-3) No organisms isolated No growth Previous preliminary verified result was Culture In Progress on 03/05/2023 at 0301 CSTPrevious preliminary verified result was No growth at 24 hours on 03/06/2023 at 0001 CSTPrevious preliminary verified result was No growth at 48 hours on 03/07/2023 at 0001 CSTPrevious preliminary verified result was No growth at 72 hours on 03/08/2023 at 0001 GROCERY STORE CLERK Lab Interpretation (test code = 64440-7) Normal [facility] MET[facility]OLIC PANEL (NA, K, CL, CO2, GLUCOSE, BUN, CREATININE, CA)2023-03-04 20:17:39* Test Item Value Reference Range Interpretation Comme nts NA (test code = 8412263800) 138 mmol/L 135-145 K (test code = 6560976911) 3.7 mmol/L 3.5-5.0 CL (test code = 9860270460) 102 mmol/L 98-108 CO2 TOTAL (test code = 7169771059) 24 mmol/L 23-31 AGAP (test code = 5322363729) 12 2-16 BUN (test code = 0964067860) 32 mg/dL 7-23 H GLUCOSE (test code = 3152368527) 98 mg/dL 70-110 CREATININE (test code = 0847547024) 4.86 mg/dL 0.60-1.25 H CALCIUM (test code = 5863027755) 9.8 mg/dL 8.6-10.6 eGFR (test code = 34652-4) 13.2 mL/min/1.73m2 CKD-EPI eGFR (2020). Assuming creatinine has been stable day-to-day for at least three months, the eGFR indicates Category G5 (<= 14mL/min/1.73 m2) Lab Interpretation (test code = 01560-7) Abnormal [facility] CampusType and Screen - ONCE [id number] 19:37:00* Test Item Value Reference Range Interpretation Comme nts ABO & RH (test code = 20) O POSITIVE IAT (test code = 1185) Negative [facility] CampusTroponin [id number] 19:23:11* Test Item Value Reference Range Interpretation Comme nts TROPONIN I (test code = 7864193587) 0.009 ng/mL <=0.034 BOBBY (test code = BBOBY) Reference (Normal) Range (defined by the 99th [...] of biotin. Lab Interpretation (test code = 13555-7) Normal [facility] CampusProthrombin Time / [id number] 19:05:07* Test Item Value Reference Range Interpretation Comme [facility] PROTIME PATIENT (test code = 5964-2) 13.9 See_Comment H [Automated [employer]] The system which generated this result transmitted reference range: 10.1 - 12.6 Seconds. The reference range was not used to interpret this result as normal/abnormal. INR (test code = 6301-6) 1.2 Normal INR <1.1; Warfarin Therapeutic range 2.0 to 3.0 or 2.5 to 3.5, depending upon the indications. Lab Interpretation (test code = 68616-9) Abnormal [facility] CampusaPTT2023-11-10 19:05:07* Test Item Value Reference Range Interpretation Comme [facility] APTT Patient (test code = 3173-2) 36 See_Comment [Automated [employer]] The system which generated this result transmitted reference range: 26 - 36 Seconds. The reference range was not used to interpret this result as normal/abnormal. Lab Interpretation (test code = 23826-2) Normal [facility] CampusProfile / [id number] 18:56:44* Test Item Value Reference Range Interpretation Comme [facility] WBC (test code = 6690-2) 11.54 See_Comment [...] result as normal/abnormal. MPV (test code = 46704-8) 9.3 fL 9.8-13.0 L RDW-CV (test code = 788-0) 22.1 % 12.1-15.4 H RDW-SD (test code = 60441-1) 73.0 fL 38.5-51.6 H NRBC x10^3 (test code = 3675538252) See_Comment [Automated messa ge] The system which generated this result transmitted reference range: 10*3/?L. The reference range was not used to interpret this result as normal/abnormal. NRBC/100 WBC (test code = 3884519930) 0.0 See_Comment [Automated messa ge] The system which generated this result transmitted reference range: 0.0 - 10.0 /100 WBCs. The reference range was not used to interpret this result as normal/abnormal. IPF % (test code = 6184345684) Lab Interpretation (test code = 11408-6) Abnormal [facility] CampusPOCT GLUCOSE (AUTOMATED)2023-03-04 18:44:21* Test Item Value Reference Range Interpretation Comme nts POCT GLU (test code = 3437708126) 101 mg/dL 70-110 Lab Interpretation (test cod e = 70919-0) Normal [facility] CampusBL[facility]OD CULTURE [id number] 01:01:26* Test Item Value Reference Range Interpretation Comme nts Blood Culture-Aerobic (test code = 07545-5) No organisms isolated No growth Previous preliminary verified result was Culture In Progress on 02/25/2023 at 2301 CDTPrevious preliminary verified result was No growth at 24 hours on 02/26/2023 at 2000 CDTPrevious preliminary verified result was No growth at 48 hours on 02/27/2023 at 1901 CSTPrevious preliminary verified result was No growth at 72 hours on 02/28/2023 at 1901 GROCERY STORE CLERK Blood Culture-Anaerobic (test code = 15023-0) No organisms isolated No growth Previous preliminary verified result was Culture In Progress on 02/25/2023 at 2301 CDTPrevious preliminary verified result was No growth at 24 hours on 02/26/2023 at 2000 CDTPrevious preliminary verified result was No growth at 48 hours on 02/27/2023 at 1901 CSTPrevious preliminary verified result was No growth at 72 hours on 02/28/2023 at 1901 GROCERY STORE CLERK Lab Interpretation (test code = 39528-4) [facility] CULTURE [id number] 01:01:26* Test Item Value Reference Range Interpretation Comme nts Blood Culture-Aerobic (test code = 84708-2) No organisms isolated No growth Previous preliminary verified result was Culture In Progress on 02/25/2023 at 2301 CDTPrevious preliminary verified result was No growth at 24 hours on 02/26/2023 at 2000 CDTPrevious preliminary verified result was No growth at 48 hours on 02/27/2023 at 1901 CSTPrevious preliminary verified result was No growth at 72 hours on 02/28/2023 at 1901 GROCERY STORE CLERK Blood Culture-Anaerobic (test code = 16078-9) No organisms isolated No growth Previous preliminary verified result was Culture In Progress on 02/25/2023 at 2301 CDTPrevious preliminary verified result was No growth at 24 hours on 02/26/2023 at 2000 CDTPrevious preliminary verified result was No growth at 48 hours on 02/27/2023 at 1901 CSTPrevious preliminary verified result was No growth at 72 hours on 02/28/2023 at 1901 GROCERY STORE CLERK Lab Interpretation (test code = 00951-6) [facility] CULTURE [id number] 01:01:26* Test Item Value Reference Range Interpretation Comme [facility] Blood Culture-Aerobic (test code = 37772-9) No organisms isolated No growth Previous preliminary verified result was Culture In Progress on 02/25/2023 at 2301 CDTPrevious preliminary verified result was No growth at 24 hours on 02/26/2023 at 2000 CDTPrevious preliminary verified result was No growth at 48 hours on 02/27/2023 at 1901 CSTPrevious preliminary verified result was No growth at 72 hours on 02/28/2023 at 1901 GROCERY STORE CLERK Blood Culture-Anaerobic (test code = 35173-8) No organisms isolated No growth Previous preliminary verified result was Culture In Progress on 02/25/2023 at 2301 CDTPrevious preliminary verified result was No growth at 24 hours on 02/26/2023 at 2000 CDTPrevious preliminary verified result was No growth at 48 hours on 02/27/2023 at 1901 CSTPrevious preliminary verified result was No growth at 72 hours on 02/28/2023 at 1901 GROCERY STORE CLERK Lab Interpretation (test code = 61970-3) Normal [facility] CampusPROTHROMBIN TIME / [id number] 19:51:25* Test Item Value Reference Range Interpretation Comme [facility] PROTIME PATIENT (test code = 5964-2) 14.5 See_Comment H [Automated [employer]] The system which generated this result transmitted reference range: 10.1 - 12.6 Seconds. The reference range was not used to interpret this result as normal/abnormal. INR (test code = 6301-6) 1.3 Normal INR <1.1; Warfarin Therapeutic range 2.0 to 3.0 or 2.5 to 3.5, depending upon the indications. Lab Interpretation (test code = 91278-4) Abnormal [facility] CampusPROTHROMBIN TIME / [id number] 19:51:25* Test Item Value Reference Range Interpretation Comme nts PROTIME PATIENT (test code = 5964-2) 14.5 See_Comment H [Automated [employer]] The system which generated this result transmitted reference range: 10.1 - 12.6 Seconds. The reference range was not used to interpret this result as normal/abnormal. INR (test code = 6301-6) 1.3 Normal INR <1.1; Warfarin Therapeutic range 2.0 to 3.0 or 2.5 to 3.5, depending upon the indications. Lab Interpretation (test code = 05290-2) Abnormal [facility] WITHOUT [id number] 23:28:46* Test Item Value Reference Range Interpretation [...] result as normal/abnormal. MPV (test code = 33553-1) 11.0 fL 9.8-13.0 RDW-CV (test code = 788-0) 21.8 % 12.1-15.4 H RDW-SD (test code = 89073-9) 66.4 fL 38.5-51.6 H NRBC x10^3 (test code = 5837299511) See_Comment [Automated messa ge] The system which generated this result transmitted reference range: 10*3/?L. The reference range was not used to interpret this result as normal/abnormal. NRBC/100 WBC (test code = 7877936252) 0.0 See_Comment [Automated messa ge] The system which generated this result transmitted reference range: 0.0 - 10.0 /100 WBCs. The reference range was not used to interpret this result as normal/abnormal. IPF % (test code = 4106928358) Lab Interpretation (test code = 75202-0) Abnormal [facility] WITHOUT [id number] 23:28:46* Test Item Value Reference Range Interpretation [...] result as normal/abnormal. MPV (test code = 93559-4) 11.0 fL 9.8-13.0 RDW-CV (test code = 788-0) 21.8 % 12.1-15.4 H RDW-SD (test code = 83464-4) 66.4 fL 38.5-51.6 H NRBC x10^3 (test code = 5124998282) See_Comment [Automated messa ge] The system which generated this result transmitted reference range: 10*3/?L. The reference range was not used to interpret this result as normal/abnormal. NRBC/100 WBC (test code = 9698598700) 0.0 See_Comment [Automated messa ge] The system which generated this result transmitted reference range: 0.0 - 10.0 /100 WBCs. The reference range was not used to interpret this result as normal/abnormal. IPF % (test code = 8126378608) Lab Interpretation (test code = 33497-1) Abnormal [facility] Packed RBC (in units), 1 Units 2023-03-01 14:31:00* Test Item Value Reference Range Interpretation Comme nts Cross Match Result (test code = 4409) Compatible ISBT Blood Type Code (test code = 517721) 5100 Unit Blood Type (test code = 4410) O Pos Unit Number (test code = 4411) [id number] Blood Expiration Date & Time (test code = 563079) 635770258302 Status Information (test code = 4412) Issued Product Identification (test code = 4413) Red Blood Cells Product Code (test code = 4414) [id number] Performed at [facility] Laboratory [facility] Blood [address] Free: [phone] No. [id number] [facility] Packed RBC (in units), 1 Units 2023-03-01 14:31:00* Test Item Value Reference Range Interpretation Comme nts Cross Match Result (test code = 4409) Compatible ISBT Blood Type Code (test code = 112841) 5100 Unit Blood Type (test code = 4410) O Pos Unit Number (test code = 4411) [id number] Blood Expiration Date & Time (test code = 059344) [id number] Status Information (test code = 4412) Issued Product Identification (test code = 4413) Red Blood Cells Product Code (test code = 4414) [id number] Performed at [facility] Blood [address] Free: [phone] No. [id number] [facility] CampusSPUTUM [id number] 12:12:59* Test Item Value Reference Range Interpretation Comme nts SPUTUM CULTURE (test code = 622-1) Specimen cellular elements do not represent lower respiratory tract. Specimen rejected for routine bacterial culture. Suggest reorder and recollection. Gram stain (test code = 664-3) Numerous Epithelial cells [facility]SPUTUM [id number] 12:12:59* Test Item Value Reference Range Interpretation Comme [facility] SPUTUM CULTURE (test code = 622-1) Specimen cellular elements do not represent lower respiratory tract. Specimen rejected for routine bacterial culture. Suggest reorder and recollection. Gram stain (test code = 664-3) Numerous Epithelial cells [facility] CampusPrepare Packed RBC (in units), 1 Units 2023-02-27 21:19:05* Test Item Value Reference Range Interpretation Comme [facility] Cross Match Result (test code = 4409) Compatible ISBT Blood Type Code (test code = 195964) 5100 Unit Blood Type (test code = 4410) O Pos Unit Number (test code = 4411) [id number] Blood Expiration Date & Time (test code = 353310) 789123134949 Status Information (test code = 4412) Issued Product Identification (test code = 4413) Red Blood Cells Product Code (test code = 4414) [id number] Performed at [facility] Laboratory Services [facility] Blood [address] [id number] Free: [phone] No. [id number] [facility] CampusAC Panel 20 + Lactic [id number] 04:29:10* Test Item Value Reference Range Interpretation Comme nts PH (test code = 2) 7.41 7.35-7.45 PCO2 (test code = 0492436124) 33 See_Comment L [Automated messa ge] The system which generated this result transmitted reference range: 35 - 45 mmHg. The reference range was not used to interpret this result as normal/abnormal. PO2 (test code = 7617852608) 77 See_Comment L [Automated messa ge] The system which generated this result transmitted reference range: 80 - 100 mmHg. The reference range was not used to interpret this result as normal/abnormal. HCO3 (test code = 9506016666) 20 See_Comment L [Automated messa ge] The system which generated this result transmitted reference range: 22 - 26 mEq/L. The reference range was not used to interpret this result as normal/abnormal. BE (test code = 9147845604) -3.2 See_Comment L [Automated messa ge] The system which generated this result transmitted reference range: -3.0 - 3.0 mEq/L. The reference range was not used to interpret this result as normal/abnormal. THB (test code = 8910702804) 12.6 g/dL 13.5-18.0 L %O2HB (test code = 5967114362) 93.5 % 94.0-99.0 L %COHB ART (test code = 5946893213) 0.8 % 0.0-1.5 %METHB ART (test code = 1406057772) 0.4 % 0.4-1.5 VOL%O2 ART (test code = 1697999716) 16.6 % 15.0-23.0 NA (test code = 0855866018) 136 mmol/L 135-145 K+ (test code = 6329009577) 3.8 mmol/L 3.5-5.0 AC CA IONZ (test code = 2706040506) 4.50 mg/dL 4.50-5.30 GLUCOSE (test code = 9463428258) 110 mg/dL 70-110 LACTIC ACID (test code = 7351861551) 1.84 mmol/L 0.50-2.20 Lab Interpretation (test code = 26919-9) Abnormal [facility] Panel 20 + Lactic [id number] 04:29:10* Test Item Value Reference Range Interpretation Comme nts PH (test code = 2) 7.41 7.35-7.45 PCO2 (test code = 4705123030) 33 See_Comment L [Automated messa ge] The system which generated this result transmitted reference range: 35 - 45 mmHg. The reference range was not used to interpret this result as normal/abnormal. PO2 (test code = 4892003438) 77 See_Comment L [Automated messa ge] The system which generated this result transmitted reference range: 80 - 100 mmHg. The reference range was not used to interpret this result as normal/abnormal. HCO3 (test code = 3867569426) 20 See_Comment L [Automated messa ge] The system which generated this result transmitted reference range: 22 - 26 mEq/L. The reference range was not used to interpret this result as normal/abnormal. BE (test code = 3013784228) -3.2 See_Comment L [Automated messa ge] The system which generated this result transmitted reference range: -3.0 - 3.0 mEq/L. The reference range was not used to interpret this result as normal/abnormal. THB (test code = 4647483604) 12.6 g/dL 13.5-18.0 L %O2HB (test code = 8145121249) 93.5 % 94.0-99.0 L %COHB ART (test code = 9792232107) 0.8 % 0.0-1.5 %METHB ART (test code = 6616159208) 0.4 % 0.4-1.5 VOL%O2 ART (test code = 6448221455) 16.6 % 15.0-23.0 NA (test code = 1260406499) 136 mmol/L 135-145 K+ (test code = 3183731306) 3.8 mmol/L 3.5-5.0 AC CA IONZ (test code = 9209825822) 4.50 mg/dL 4.50-5.30 GLUCOSE (test code = 3217460451) 110 mg/dL 70-110 LACTIC ACID (test code = 3777632756) 1.84 mmol/L 0.50-2.20 Lab Interpretation (test code = 33083-9) Abnormal [facility] WITH [id number] 12:03:47* Test Item Value Reference Range Interpretation [...] 32.5 g/dL 31.2-35.0 RDW-SD (test code = 28530-9) 66.4 fL 38.5-51.6 H RDW-CV (test code = 788-0) 19.5 % 12.1-15.4 H PLT (test code = 777-3) 37 See_Comment LL [Automated [employer] ge] The system which generated this result transmitted reference range: 150 - 328 10*3/?L. The reference range was not used to interpret this result as normal/abnormal. MPV (test code = 73001-5) Not Measured IPF % (test code = 5974420163) 13.6 % 1.2-10.7 H Platelet count measured by fluorescence method. NRBC/100 WBC (test code = 1446571396) 0.1 See_Comment [Automated [employer] ssage] The system which generated this result transmitted reference range: 0.0 - 10.0 /100 WBCs. The reference range was not used to interpret this result as normal/abnormal. NRBC x10^3 (test code = 4480478652) 0.02 See_Comment [Automated [employer]] The system which generated this result transmitted reference range: 10*3/?L. The reference range was not used to interpret this result as normal/abnormal. GRAN MAT (NEUT) % (test code = 770-8) 64.8 % IMM GRAN % (test code = 4207044622) 1.70 % LYMPH % (test code = 736-9) 13.8 % MONO % (test code = 5905-5) 13.1 % EOS % (test code = 713-8) 6.4 % BASO % (test code = 706-2) 0.2 % GRAN MAT x10^3(ANC) (test code = 0192650849) 10.52 10*3/uL 1.99-6.95 H IMM GRAN x10^3 (test code = 2768936856) 0.27 10*3/uL 0.00-0.06 H LYMPH x10^3 (test code = 731-0) 2.24 10*3/uL 1.09-3.23 MONO x10^3 (test code = 742-7) 2.12 10*3/uL 0.36-1.02 H EOS x10^3 (test code = 711-2) 1.04 10*3/uL 0.06-0.53 H BASO x10^3 (test code = 704-7) 0.04 10*3/uL 0.01-0.09 Lab Interpretation (test code = 76007-3) Abnormal [facility] [facility]UM2023[facility] 11:57:16* Test Item Value Reference Range Interpretation Comme nts MAGNESIUM (test code = 0961243072) 2.6 mg/dL 1.7-2.4 H Lab Interpretation (test cod e = 78695-1) [facility]normal [facility]OL[facility] ([id number])2023-02-26 11:57:15* Test Item Value Reference Range Interpretation Comme nts NA (test code = 5280764425) 138 mmol/L 135-145 K (test code = 6609523192) 3.6 mmol/L 3.5-5.0 CL (test code = 5711397618) 104 mmol/L 98-108 CO2 TOTAL (test code = 1451086963) 24 mmol/L 23-31 AGAP (test code = 7239931108) 10 2-16 BUN (test code = 9971203452) 13 mg/dL 7-23 GLUCOSE (test code = 1000338834) 111 mg/dL 70-110 H CREATININE (test code = 9040358850) 2.58 mg/dL 0.60-1.25 H TOTAL BILI (test code = 8714927878) 2.7 mg/dL 0.1-1.1 H CALCIUM (test code = 8932676783) 8.4 mg/dL 8.6-10.6 L T PROTEIN (test code = 4894481633) 6.8 g/dL 6.3-8.2 ALBUMIN (test code = 5977748836) 4.1 g/dL 3.5-5.0 ALK PHOS (test code = 1663760264) 193 U/L 34-122 H ALTv (test code = 1742-6) 39 U/L 5-50 AST(SGOT) (test code = 6401919143) 206 U/L 13-40 H eGFR (test code = 43877-5) 28.3 mL/min/1.73m2 CKD-EPI eGFR (2020). Assuming creatinine has been stable day-to-day for at least three months, the eGFR indicates Category G4 (15 - 29 mL/min/1.73 m2) Lab Interpretation (test code = 21022-4) Abnormal [facility] WITHOUT [id number] 00:14:22* Test Item Value Reference Range Interpretation [...] result as normal/abnormal. MPV (test code = 85194-1) 11.5 fL 9.8-13.0 RDW-CV (test code = 788-0) 19.5 % 12.1-15.4 H RDW-SD (test code = 58340-2) 66.5 fL 38.5-51.6 H NRBC x10^3 (test code = 8531233522) See_Comment [Automated messa ge] The system which generated this result transmitted reference range: 10*3/?L. The reference range was not used to interpret this result as normal/abnormal. NRBC/100 WBC (test code = 7520446349) 0.0 See_Comment [Automated messa ge] The system which generated this result transmitted reference range: 0.0 - 10.0 /100 WBCs. The reference range was not used to interpret this result as normal/abnormal. IPF % (test code = 6632822120) 12.8 % 1.2-10.7 H Platelet count measured by fluorescence method. Lab Interpretation (test code = 40482-8) Abnormal [facility] Arterial Blood Gas.2023-02-25 16:11:31* Test Item Value Reference Range Interpretation Comme nts PH (test code = 2) 7.45 7.35-7.45 PCO2 (test code = 1964369365) 34 See_Comment L [Automated messa ge] The system which generated this result transmitted reference range: 35 - 45 mmHg. The reference range was not used to interpret this result as normal/abnormal. PO2 (test code = 0865812158) 384 See_Comment H QUES [Automated message] The system which generated this result transmitted reference range: 80 - 100 mmHg. The reference range was not used to interpret this result as normal/abnormal. HCO3 (test code = 2669329925) 23 See_Comment [Automated messa ge] The system which generated this result transmitted reference range: 22 - 26 mEq/L. The reference range was not used to interpret this result as normal/abnormal. BE (test code = 8734686023) -1.1 See_Comment [Automated messa ge] The system which generated this result transmitted reference range: -3.0 - 3.0 mEq/L. The reference range was not used to interpret this result as normal/abnormal. Lab Interpretation (test code = 11642-5) Abnormal [facility] Arterial Blood Gas.2023-02-25 16:11:31* Test Item Value Reference Range Interpretation Comme nts PH (test code = 2) 7.45 7.35-7.45 PCO2 (test code = 3844514994) 34 See_Comment L [Automated messa ge] The system which generated this result transmitted reference range: 35 - 45 mmHg. The reference range was not used to interpret this result as normal/abnormal. PO2 (test code = 9600490814) 384 See_Comment H QUES [Automated message] The system which generated this result transmitted reference range: 80 - 100 mmHg. The reference range was not used to interpret this result as normal/abnormal. HCO3 (test code = 6286871306) 23 See_Comment [Automated messa ge] The system which generated this result transmitted reference range: 22 - 26 mEq/L. The reference range was not used to interpret this result as normal/abnormal. BE (test code = 7493972424) -1.1 See_Comment [Automated messa ge] The system which generated this result transmitted reference range: -3.0 - 3.0 mEq/L. The reference range was not used to interpret this result as normal/abnormal. Lab Interpretation (test code = 14907-4) Abnormal [facility] WITH [id number] 11:40:01* Test Item Value Reference Range Interpretation [...] 32.7 g/dL 31.2-35.0 RDW-SD (test code = 44700-2) 67.8 fL 38.5-51.6 H RDW-CV (test code = 788-0) 19.4 % 12.1-15.4 H PLT (test code = 777-3) 46 See_Comment LL [Automated [employer]™a ge] The system which generated this result transmitted reference range: 150 - 328 10*3/?L. The reference range was not used to interpret this result as normal/abnormal. MPV (test code = 76850-4) 11.3 fL 9.8-13.0 IPF % (test code = 9213310156) 8.9 % 1.2-10.7 Platelet count measured by fluorescence method. NRBC/100 WBC (test code = 2099120413) 0.0 See_Comment [Automated [employer] ssage] The system which generated this result transmitted reference range: 0.0 - 10.0 /100 WBCs. The reference range was not used to interpret this result as normal/abnormal. NRBC x10^3 (test code = 0969488878) See_Comment [Automated [employer]™a ge] The system which generated this result transmitted reference range: 10*3/?L. The reference range was not used to interpret this result as normal/abnormal. GRAN MAT (NEUT) % (test code = 770-8) 75.9 % IMM GRAN % (test code = 1354449853) 1.00 % LYMPH % (test code = 736-9) 8.4 % MONO % (test code = 5905-5) 9.3 % EOS % (test code = 713-8) 5.1 % BASO % (test code = 706-2) 0.3 % GRAN MAT x10^3(ANC) (test code = 7466856441) 11.06 10*3/uL 1.99-6.95 H IMM GRAN x10^3 (test code = 6035563913) 0.15 10*3/uL 0.00-0.06 H LYMPH x10^3 (test code = 731-0) 1.22 10*3/uL 1.09-3.23 MONO x10^3 (test code = 742-7) 1.36 10*3/uL 0.36-1.02 H EOS x10^3 (test code = 711-2) 0.74 10*3/uL 0.06-0.53 H BASO x10^3 (test code = 704-7) 0.05 10*3/uL 0.01-0.09 Lab Interpretation (test code = 63060-6) [facility]normal [facility]2023-[facility] 11:03:46* Test Item Value Reference Range Interpretation Comme nts MAGNESIUM (test code = 0644683189) 2.5 mg/dL 1.7-2.4 H Lab Interpretation (test cod e = 88890-7) [facility]normal [facility]OL[facility] (27343)2023-02-25 11:03:46* Test Item Value Reference Range Interpretation Comme nts NA (test code = 0802846838) 137 mmol/L 135-145 K (test code = 5613025569) 4.1 mmol/L 3.5-5.0 CL (test code = 7294334784) 104 mmol/L 98-108 CO2 TOTAL (test code = 7629521263) 20 mmol/L 23-31 L AGAP (test code = 7572912210) 13 2-16 BUN (test code = 1217538788) 24 mg/dL 7-23 H GLUCOSE (test code = 1112621911) 110 mg/dL 70-110 CREATININE (test code = 3308208123) 5.26 mg/dL 0.60-1.25 H TOTAL BILI (test code = 6025334438) 2.2 mg/dL 0.1-1.1 H CALCIUM (test code = 0244686979) 8.4 mg/dL 8.6-10.6 L T PROTEIN (test code = 4629161846) 6.6 g/dL 6.3-8.2 ALBUMIN (test code = 6888806277) 3.8 g/dL 3.5-5.0 ALK PHOS (test code = 4242070805) 214 U/L 34-122 H ALTv (test code = 1742-6) 45 U/L 5-50 AST(SGOT) (test code = 5672850034) 218 U/L 13-40 H eGFR (test code = 39968-2) 12.0 mL/min/1.73m2 CKD-EPI eGFR (2020). Assuming creatinine has been stable day-to-day for at least three months, the eGFR indicates Category G5 (<= 14mL/min/1.73 m2) Lab Interpretation (test code = 96569-0) [facility]normal [facility]2023-11-03 11:03:46* Test Item Value Reference Range Interpretation Comme nts PHOSPHORUS (test code = 2708609660) 2.9 mg/dL 2.5-5.0 Lab Interpretation (test cod e = 86883-6) Normal [facility]OL[facility] PAN[facility] (NA, K, CL, CO2, GLUCOSE, BUN, CREATININE, CA)2023-02-24 18:45:30* Test Item Value Reference Range Interpretation Comme nts NA (test code = 4110438254) 136 mmol/L 135-145 K (test code = 8762934275) 4.0 mmol/L 3.5-5.0 CL (test code = 3319685614) 102 mmol/L 98-108 CO2 TOTAL (test code = 8990644607) 19 mmol/L 23-31 L AGAP (test code = 2960846494) 15 2-16 BUN (test code = 5712909232) 32 mg/dL 7-23 H GLUCOSE (test code = 9573645062) 106 mg/dL 70-110 CREATININE (test code = 1299353608) 7.57 mg/dL 0.60-1.25 H CALCIUM (test code = 0709374376) 8.7 mg/dL 8.6-10.6 eGFR (test code = 93623-3) 7.8 mL/min/1.73m2 CKD-EPI eGFR (2020). Assuming creatinine has been stable day-to-day for at least three months, the eGFR indicates Category G5 (<= 14mL/min/1.73 m2) Lab Interpretation (test code = 49988-9) [facility]normal [facility] CampusBLOOD CULTURE [id number] 11:01:20* Test Item Value Reference Range Interpretation Comme nts Blood Culture-Aerobic (test code = 70236-1) No organisms isolated No growth Previous preliminary verified result was Culture In Progress on 02/19/2023 at 0901 CDTPrevious preliminary verified result was No growth at 24 hours on 02/20/2023 at 0601 CDTPrevious preliminary verified result was No growth at 48 hours on 02/21/[address] [place], [place] [address]Previous preliminary verified result was No growth at 72 hours on 02/22/[address] [place] [address] Blood Culture-Anaerobic (test code = 04593-2) No organisms isolated No growth Previous preliminary verified result was Culture In Progress on 02/19/[address] [place], [place] [address]TPrevious preliminary verified result was No growth at 24 hours on 02/20/[address] [place], [place] [address]revious preliminary verified result was No growth at 48 hours on 02/21/[address] [place], [place] [address]TPrevious preliminary verified result was No growth at 72 hours on 02/22/[address] [place] [address] Lab Interpretation (test code = 85586-7) Normal [facility] WITH [id number] 10:50:27* Test Item Value Reference Range Interpretation [...] 33.5 g/dL 31.2-35.0 RDW-SD (test code = 19977-3) 66.4 fL 38.5-51.6 H RDW-CV (test code = 788-0) 19.7 % 12.1-15.4 H PLT (test code = 777-3) 42 See_Comment LL [Automated messa ge] The system which generated this result transmitted reference range: 150 - 328 10*3/?L. The reference range was not used to interpret this result as normal/abnormal. MPV (test code = 84546-3) 10.3 fL 9.8-13.0 IPF % (test code = 9184416162) 8.1 % 1.2-10.7 Platelet count measured by fluorescence method. NRBC/100 WBC (test code = 5804414215) 0.0 See_Comment [Automated me ssage] The system which generated this result transmitted reference range: 0.0 - 10.0 /100 WBCs. The reference range was not used to interpret this result as normal/abnormal. NRBC x10^3 (test code = 9445855316) See_Comment [Automated messa ge] The system which generated this result transmitted reference range: 10*3/?L. The reference range was not used to interpret this result as normal/abnormal. GRAN MAT (NEUT) % (test code = 770-8) 66.1 % IMM GRAN % (test code = 9732624526) 0.80 % LYMPH % (test code = 736-9) 13.2 % MONO % (test code = 5905-5) 10.2 % EOS % (test code = 713-8) 9.3 % BASO % (test code = 706-2) 0.4 % GRAN MAT x10^3(ANC) (test code = 3245710991) 5.97 10*3/uL 1.99-6.95 IMM GRAN x10^3 (test code = 6615911879) 0.07 10*3/uL 0.00-0.06 H LYMPH x10^3 (test code = 731-0) 1.19 10*3/uL 1.09-3.23 MONO x10^3 (test code = 742-7) 0.92 10*3/uL 0.36-1.02 EOS x10^3 (test code = 711-2) 0.84 10*3/uL 0.06-0.53 H BASO x10^3 (test code = 704-7) 0.04 10*3/uL 0.01-0.09 Lab Interpretation (test code = 41855-3) [facility]:30[facility]39* Test Item Value Reference Range Interpretation Comme nts MAGNESIUM (test code = 4245027851) 2.6 mg/dL 1.7-2.4 H Lab Interpretation (test cod e = 65000-3) Abnormal [facility] (03140)2023-02-24 10:30:39* Test Item Value Reference Range Interpretation Comme nts NA (test code = 7641708172) 135 mmol/L 135-145 K (test code = 9512505492) 4.2 mmol/L 3.5-5.0 CL (test code = 6452044861) 102 mmol/L 98-108 CO2 TOTAL (test code = 4068332439) 19 mmol/L 23-31 L AGAP (test code = 4487116025) 14 2-16 BUN (test code = 5442147167) 31 mg/dL 7-23 H GLUCOSE (test code = 2610016411) 110 mg/dL 70-110 CREATININE (test code = 3311689025) 7.39 mg/dL 0.60-1.25 H TOTAL BILI (test code = 0561277925) 2.2 mg/dL 0.1-1.1 H CALCIUM (test code = 1332576212) 9.1 mg/dL 8.6-10.6 T PROTEIN (test code = 4845702690) 7.0 g/dL 6.3-8.2 ALBUMIN (test code = 9356613427) 4.1 g/dL 3.5-5.0 ALK PHOS (test code = 4867210371) 218 U/L 34-122 H ALTv (test code = 1742-6) 53 U/L 5-50 H AST(SGOT) (test code = 1454993920) 242 U/L 13-40 H eGFR (test code = 80622-0) 8.0 mL/min/1.73m2 CKD-EPI eGFR (2020). Assuming creatinine has been stable day-to-day for at least three months, the eGFR indicates Category G5 (<= 14mL/min/1.73 m2) Lab Interpretation (test code = 63454-3) Abnormal [facility]2023-[facility]-02 10:30:39* Test Item Value Reference Range Interpretation Comme nts PHOSPHORUS (test code = 5469860089) 3.6 mg/dL 2.5-5.0 Lab Interpretation (test cod e = 52718-3) Normal [facility] (NA, K, CL, CO2, GLUCOSE, BUN, CREATININE, CA)2023-02-24 10:30:39* Test Item Value Reference Range Interpretation Comme nts NA (test code = 6849513046) 135 mmol/L 135-145 K (test code = 3979516115) 4.2 mmol/L 3.5-5.0 CL (test code = 1819234117) 102 mmol/L 98-108 CO2 TOTAL (test code = 9916337918) 19 mmol/L 23-31 L AGAP (test code = 6012021366) 14 2-16 BUN (test code = 8435375626) 31 mg/dL 7-23 H GLUCOSE (test code = 8292713696) 110 mg/dL 70-110 CREATININE (test code = 1435704258) 7.39 mg/dL 0.60-1.25 H CALCIUM (test code = 2580664143) 9.1 mg/dL 8.6-10.6 eGFR (test code = 87046-9) 8.0 mL/min/1.73m2 CKD-EPI eGFR (2020). Assuming creatinine has been stable day-to-day for at least three months, the eGFR indicates Category G5 (<= 14mL/min/1.73 m2)CKD-EPI eGFR (2020). Assuming creatinine has been stable day-to-day for at least three months, the eGFR indicates Category G5 (<= 14mL/min/1.73 m2) Lab Interpretation (test code = 61822-6) Abnormal [facility] 20 + Lactic [id number] 21:58:55* Test Item Value Reference Range Interpretation Comme nts PH (test code = 2) 7.47 7.35-7.45 H PCO2 (test code = 2399115987) 30 See_Comment L [Automated messa ge] The system which generated this result transmitted reference range: 35 - 45 mmHg. The reference range was not used to interpret this result as normal/abnormal. PO2 (test code = 4664170751) 96 See_Comment [Automated messa ge] The system which generated this result transmitted reference range: 80 - 100 mmHg. The reference range was not used to interpret this result as normal/abnormal. HCO3 (test code = 4013568417) 21 See_Comment L [Automated messa ge] The system which generated this result transmitted reference range: 22 - 26 mEq/L. The reference range was not used to interpret this result as normal/abnormal. BE (test code = 9226211804) -2.1 See_Comment [Automated messa ge] The system which generated this result transmitted reference range: -3.0 - 3.0 mEq/L. The reference range was not used to interpret this result as normal/abnormal. THB (test code = 7680154805) 10.5 g/dL 13.5-18.0 L %O2HB (test code = 6292447251) 97.4 % 94.0-99.0 %COHB ART (test code = 2157964035) 0.3 % 0.0-1.5 %METHB ART (test code = 0942663353) 0.0 % 0.4-1.5 L VOL%O2 ART (test code = 5277902566) 14.5 % 15.0-23.0 L NA (test code = 6465066552) 131 mmol/L 135-145 L K+ (test code = 8893033538) 3.9 mmol/L 3.5-5.0 AC CA IONZ (test code = 1773119246) 4.50 mg/dL 4.50-5.30 GLUCOSE (test code = 7333312824) 100 mg/dL 70-110 LACTIC ACID (test code = 5900246923) 1.70 mmol/L 0.50-2.20 QUES Lab Interpretation (test code = 07042-2) [facility]normal [facility] 20 + Lactic [id number] 16:28:05* Test Item Value Reference Range Interpretation Comme nts PH (test code = 2) 7.53 7.35-7.45 H PCO2 (test code = 8180122489) 26 See_Comment L [Automated messa ge] The system which generated this result transmitted reference range: 35 - 45 mmHg. The reference range was not used to interpret this result as normal/abnormal. PO2 (test code = 7342888795) 87 See_Comment [Automated messa ge] The system which generated this result transmitted reference range: 80 - 100 mmHg. The reference range was not used to interpret this result as normal/abnormal. HCO3 (test code = 4449104962) 21 See_Comment L [Automated messa ge] The system which generated this result transmitted reference range: 22 - 26 mEq/L. The reference range was not used to interpret this result as normal/abnormal. BE (test code = 4030236381) -0.9 See_Comment [Automated messa ge] The system which generated this result transmitted reference range: -3.0 - 3.0 mEq/L. The reference range was not used to interpret this result as normal/abnormal. THB (test code = 1655853486) 10.0 g/dL 13.5-18.0 L %O2HB (test code = 8546366126) 97.2 % 94.0-99.0 %COHB ART (test code = 7941305107) 0.3 % 0.0-1.5 %METHB ART (test code = 4750137950) 0.1 % 0.4-1.5 L VOL%O2 ART (test code = 3886084439) 13.8 % 15.0-23.0 L NA (test code = 2977891670) 129 mmol/L 135-145 L K+ (test code = 5215480278) 3.8 mmol/L 3.5-5.0 AC CA IONZ (test code = 8082673208) 4.20 mg/dL 4.50-5.30 L GLUCOSE (test code = 6787934155) 101 mg/dL 70-110 LACTIC ACID (test code = 2346902052) 1.62 mmol/L 0.50-2.20 Lab Interpretation (test code = 24947-6) [facility]normal [facility]2023-[facility] 10:54:26* Test Item Value Reference Range Interpretation Comme nts MAGNESIUM (test code = 4940895808) 2.2 mg/dL 1.7-2.4 Lab Interpretation (test cod e = 09661-5) Normal [facility] (24545)2023-02-22 10:54:25* Test Item Value Reference Range Interpretation Comme nts NA (test code = 7987165211) 130 mmol/L 135-145 L K (test code = 8089896440) 3.8 mmol/L 3.5-5.0 CL (test code = 7486919723) 99 mmol/L 98-108 CO2 TOTAL (test code = 9704513118) 20 mmol/L 23-31 L AGAP (test code = 4607993679) 11 2-16 BUN (test code = 2816247878) 17 mg/dL 7-23 GLUCOSE (test code = 4392335720) 107 mg/dL 70-110 CREATININE (test code = 8356117057) 3.96 mg/dL 0.60-1.25 H TOTAL BILI (test code = 6329364978) 2.5 mg/dL 0.1-1.1 H CALCIUM (test code = 5000911363) 7.8 mg/dL 8.6-10.6 L T PROTEIN (test code = 5571223984) 6.7 g/dL 6.3-8.2 ALBUMIN (test code = 0084810314) 3.5 g/dL 3.5-5.0 ALK PHOS (test code = 5403564427) 332 U/L 34-122 H ALTv (test code = 1742-6) 73 U/L 5-50 H AST(SGOT) (test code = 2931171390) 405 U/L 13-40 H eGFR (test code = 30123-9) 16.9 mL/min/1.73m2 CKD-EPI eGFR (2020). Assuming creatinine has been stable day-to-day for at least three months, the eGFR indicates Category G4 (15 - 29 mL/min/1.73 m2) Lab Interpretation (test code = 30009-0) Abnormal [facility] Arterial Blood Gas.2023-02-21 22:56:14* Test Item Value Reference Range Interpretation Comme nts PH (test code = 2) 7.40 7.35-7.45 PCO2 (test code = 1398444062) 34 See_Comment L [Automated messa ge] The system which generated this result transmitted reference range: 35 - 45 mmHg. The reference range was not used to interpret this result as normal/abnormal. PO2 (test code = 1773842862) 108 See_Comment H QUES [Automated message] The system which generated this result transmitted reference range: 80 - 100 mmHg. The reference range was not used to interpret this result as normal/abnormal. HCO3 (test code = 1301219082) 21 See_Comment L [Automated [employer]™a ge] The system which generated this result transmitted reference range: 22 - 26 mEq/L. The reference range was not used to interpret this result as normal/abnormal. BE (test code = 0271206148) -3.5 See_Comment L [Automated messa [employer]] The system which generated this result transmitted reference range: -3.0 - 3.0 mEq/L. The reference range was not used to interpret this result as normal/abnormal. Lab Interpretation (test code = 79172-2) Abnormal [facility]Tran[facility]hor[facility] echo (TTE)2023-02-21 22:32:50* Test Item Value Reference Range Interpretation Comme nts Height (test code = 3948680296) 69 in Weight (test code = 5339140761) 206 lbs Systolic BP (test code = 2771962228) 154 mmHg Diastolic BP (test code = 9239948371) 90 mmHg Heart Rate (test code = 9199237697) 98 bpm LVOT stroke volume (test code = 0164777790) 88.00 cm3 EF(Teich) (test code = 9706701203) 57.60 % LVIDD (test code = 1265330727) 6.30 cm LVIDS (test code = 0945872065) 4.30 cm Left Ventricular End Systolic Volume by Teichholz Method (test code = 8481047) 84.8 mL Left Ventricular End Diastolic Volume by Teichholz Method (test code = 0725492) 200.1 mL IVS (test code = 2459370914) 1.34 cm LVPWD (test code = 2778027087) 1.16 cm LVOT diameter (test code = 7870911522) 2.19 cm LVOT area (test code = 9837166391) 3.80 cm2 FS (test code = 4791985315) 31 % MV Peak E Cy (test code = 4541134639) 136.7 cm/s MV Peak A Cy (test code = 1202656043) 93.0 cm/s E/A ratio (test code = 2913573886) 1.47 ratio E wave decelartion time (test code = 5678072605) 0.10 s LA Volume Index (BP) (test code = 5195417427) 40.1 mL/m2 LA volume (BP) (test code = 6766013295) 84.0 mL LVOT peak cy (test code = 7950696977) 133.8 cm/s LVOT mn grad (test code = 4565818708) 3.9 mmHg BSA (test code = 1187736177) 2.09 m2 LA size (test code = 1129971616) 5.2 cm LAV(MOD-sp2)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
[2024-02-03] MEDS ORDERED: IPRATROPIUM BROM 0.5MG/2.5ML ONE (12:04)
[2024-02-03] MEDS ORDERED: ALBUTEROL 2.5 MG/3 ML NEB SOL ONE (12:04)
[2024-02-03 12:05] LABS: Absolute Basophils 0.1 K/uL (0-0.5); Absolute Eosinophils 0.3 K/uL (0-0.5); Absolute Lymphocytes (CBC) 1.7 K/uL (0.7-4.9); Absolute Monocytes 0.5 K/uL (0.1-1.3); Absolute Neutrophil 2.4 K/uL (1.8-8.0); Basophils % 1.2 % (0-1.3); Eosinophils % 5.1 % (0-4.4); Hematocrit 30.1 % (39.6-49.0); Hemoglobin 9.9 g/dL (13.6-17.9); Lymphocytes % 34.9 % (15.3-44.8); MCH 30.2 pg (27.0-35.0); MCHC 32.8 g/dL (32.0-36.0); MCV 92.1 fL (80-100); MPV 7.2 fL (7.6-11.3); Neutrophils % 48.8 % (41.7-73.7); Nucleated Red Blood Cells % 0.1 % (0-0); Platelets 72 thou/uL (152-406); RBC Red Blood Cell Count 3.27 M/uL (4.33-5.43); Red Cell Distribution Width 19.7 % (12.1-15.2)
[2024-02-03] MEDS ORDERED: ONDANSETRON 4 MG/2 ML VIAL ONE (12:05)
[2024-02-03] MEDS ORDERED: DIAZEPAM 10 MG/2 ML INJ SYRINGE ONE (12:05)
[2024-02-03 12:21] LABS: Anion Gap 10.1 mEq/L (5.0-15.0); Potassium 3.1 mEq/L (3.5-5.1); Troponin High Sensitivity 9.5 pg/mL (<58.9)
--- NOTE | 2024-02-03 12:23 | RAD REPORT ---
EXAMINATION: ONE VIEW CHEST XR CLINICAL INDICATION: DYSPNEA TECHNIQUE: Frontal chest projection is submitted. Examination is limited by patient positioning and t echnique. COMPARISON: No prior exam. FINDINGS: The lungs are well inflated and clear. The heart is normal in size. No displaced fractures identified . Right rib cage hardware again noted, unchanged. IMPRESSION: No acute intrathoracic abnormalities.
[2024-02-03] MEDS ORDERED: POTASSIUM CL SA 10 MEQ TAB PO ONE (12:37)
--- NOTE | 2024-02-03 13:46 | RAD REPORT ---
EXAMINATION: CTA CHEST PE CLINICAL INDICATION: Shortness of breath TECHNIQUE: 100 cc 370 Isovue administered intravenously. This examination was performed according to an angiographic protocol with 3D post-processing. This involves 3D reconstructions, MIPs, volume rendered images and/or shaded surface rendering. One or more of the following dose reduction techniqu es were used: Automated exposure control, adjustment of the mA and/or kV according to patient size, and/or iterative reconstruction. Unless otherwise specified, incidental findings do not require dedic ated imaging follow-up. [id number]. COMPARISON: 2022. FINDINGS: Suboptimal opacification of the pulmonary arteries. No gross pulmonary embolus seen. An aortic dissection not noted. No pleural effusion. No pericardial effusion. Lungs are clear. Cirrhotic liver with fatty infiltration. IMPRESSION: Suboptimal opacification of the pulmonary arteries. No gross pulmonary embolus seen.
--- NOTE | 2024-02-03 14:20 | EDPHYS ---
Physician Documentation [facility] Name: Beny Alvarez Age: 58 yrs Sex: Male : 1965 Arrival Date: 02/03/2024 Time: 11:27 Bed 15 Private MD: ED Physician Sammy Hsu HPI: 02/02 11:34 This 58 yrs old Male presents to ER via Unassigned with complaints of dyspnea.ec2 11:34 Patient arrives today for evaluation of shortness of breath. Patient reports that he ec2 has been experiencing some shortness of breath, no specific alleviating or exacerbating factors. Reports no cough or cold symptoms, no fevers, no nausea, no vomiting. Reports no underlying lung disease however he does have an inhaler prescribed to him . Historical: - Allergies: 11:38 NSAIDS; rs5 - Home Meds: 11:38 "heart issues" [Active]; rs5 - PMHx: 11:38 acid reflux; CHF; cirrhosis of liver; Hypertensive disorder; tremors; PTSD rs5 (Cholecystectomy); Kidney disease; "heart issues"; "right eye issues"; - PSHx: 11:38 Cholecystectomy; rs5 - Immunization history:: Adult Immunizations up to date. - Infectious Disease History:: Denies. - Social history:: Smoking status: Patient/guardian denies using tobacco, but has a distant history of tobacco abuse. ROS: 11:34 Constitutional: as per hpi ec2 Exam: 11:34 Constitutional: GEN: NAD Head: atraumatic Eyes: EOMI Ears: External ears are ec2 normal. CV: regular rate LUNGS: no respiratory distress, no wheezes, no rales, no rhonchi ABD: non-distended SKIN: no evidence of rashes MSK: no evidence of trauma Vital Signs: 11:35 BP 142 / 83; Pulse 103; Resp 17; Temp 98(O); Pulse Ox 95% on 2 lpm NC; rs5 12:53 BP 120 / 89; Pulse 108; Resp 17; Pulse Ox 98% on R/A; rs5 13:01 BP 120 / 90; Pulse 109; ec2 14:19 BP 155 / 87; Pulse 94; Pulse Ox 98% ; ec2 14:40 BP 128 / 84; Pulse 80; Resp 17; Pulse Ox 99% on R/A; rs5 MDM: 11:34 Data reviewed: vital signs. ED course: Patient arrives today for evaluation of ec2 shortness of breath. Examination remarkable for well-appearing nontoxic and appears otherwise in no acute distress other exam and examination. Will obtain lab work, EKG, chest x-ray. History gathered from EMS as well. Patient without any hypoxia, patient placed on oxygen for comfort. . 12:02 ED course: EKG independently reviewed and interpreted by me, shows sinus tachycardia, ec2 rate 107, no acute ST segment elevations, nonactionable intervals. . 12:31 ED course: Metabolic profile shows slight hypokalemia with potassium of 3.1, renal ec2 dysfunction with a creatinine of 1.4. CBC shows slight anemia. Troponin within normal ranges, BNP within normal ranges, chest x-ray shows no acute intrathoracic process. . 13:50 ED course: CT of the chest with no marked change. Will discharge home have the patient ec2 follow-up PCP. Return precautions given.. 14:19 Patient medically screened. ec2 02/02 11:34 Order name: Basic Metabolic Panel; Complete Time: 12:30 ec2 02/02 11:34 Order name: CBC with Diff; Complete Time: 12:30 ec2 02/02 11:34 Order name: NT PRO-BNP; Complete Time: 12:30 ec2 02/02 11:34 Order name: Troponin HS; Complete Time: 12:30 ec2 02/02 11:34 Order name: XRAY Chest (1 view); Complete Time: 12:30 ec2 02/02 13:01 Order name: CT Chest For PE Angio; Complete Time: 13:50 ec2 02/02 11:34 Order name: Cardiac monitoring; Complete Time: 12:02 ec2 02/02 11:34 Order name: EKG - Nurse/Tech; Complete Time: 12:02 ec2 02/02 11:34 Order name: IV Saline Lock; Complete Time: 12:02 ec2 02/02 11:34 Order name: Labs collected and sent; Complete Time: 12:02 ec2 02/02 11:34 Order name: O2 Per Protocol; Complete Time: 12:02 ec2 02/02 11:34 Order name: O2 Sat Monitoring; Complete Time: 12:53 ec2 02/02 12:00 Order name: Misc. Order: wean oxygen; Complete Time: 12:02 ec2 Administered Medications: 12:10 Drug: DuoNeb Nebulize (3:1) (2.5 mg - 0.5 mg) 3 ml Nebulizer once Route: Nebulizer; rs5 12:40 Follow up: Response: No adverse reaction rs5 12:10 Drug: Ondansetron IVP 4 mg IVP once; over 2 minutes Route: IVP; Site: right antecubital;rs5 12:30 Follow up: Response: No adverse reaction; Nausea is decreased rs5 12:10 Drug: Diazepam IVP 10 mg IVP once Route: IVP; Site: right antecubital; rs5 12:30 Follow up: Response: No adverse reaction rs5 12:30 Drug: Potassium Chloride PO 40 mEq PO once Route: PO; rs5 13:41 Follow up: Response: No adverse reaction rs5 13:55 Drug: MethylPrednisoLONE IVP 125 mg IVP once Route: IVP; Site: right forearm; rs5 14:20 Follow up: Response: No adverse reaction rs5 Disposition Summary: 02/03/24 14:19 Discharge Ordered Notes: Location: Home ec2 Condition: Stable ec2 Diagnosis - Dyspnea, unspecified ec2 Followup: ec2 - With: Private Physician - When: - Reason: Re-evaluation by your physician Discharge Instructions: - Discharge Summary Sheet ec2 - Shortness of Breath, Adult, [id number] ec2 Forms: - Medication Reconciliation Form ec2 - Antibiotic Education ec2 - Prescription Opioid Use ec2 - Patient Portal Instructions ec2 - Leadership Thank You Letter ec2 Prescriptions: - Zithromax Z-Mumtaz 250 mg Oral Tablet - take 1 tablet ORAL route as directed for 5 days Day 1 - take two (2) tablets ec2 one time. Day 2, 3, 4 , 5 take one (1) tablet once daily.; 6 tablet; Refills: 0, Product Selection Permitted - Prednisone 20 mg Oral Tablet - take 2 tablets ORAL route once daily for 5 days; 10 tablet; Refills: 0, Product ec2 Selection Permitted Signatures: Dispatcher [employer] Fco Joel RN RN rs5 Sammy Hsu MD MD ec2 Corrections: (The following items were deleted from the chart) 11:40 11:38 PSHx: right eye surgery; rs5 rs5
--- NOTE | 2024-02-03 14:20 | ER ---
Nurse's Notes [facility] Name: Beny Alvarez Age: 58 yrs Sex: Male : 1965 Arrival Date: 02/03/2024 Time: 11:27 Bed 15 Private MD: Diagnosis: Dyspnea, unspecified Presentation: 02/02 11:35 Chief complaint: EMS states: Difficulty breathing that started this morning with rs5 nausea. Coronavirus screen: At this time, the client does not indicate any symptoms associated with coronavirus-19. Ebola Screen: No symptoms or risks identified at this time. Initial Sepsis Screen: Does the patient meet any 2 criteria? HR > 90 bpm. Yes Does the patient have a suspected source of infection? No. Patient's initial sepsis screen is negative. Risk Assessment: Do you want to hurt yourself or someone else? Patient reports no desire to harm self or others. Onset of symptoms was February 03, 2024. 11:35 Method Of Arrival: EMS: [facility] rs5 11:35 Acuity: KALEY 3 rs5 Triage Assessment: 11:33 General: Appears in no apparent distress. uncomfortable, Behavior is calm, cooperative. rs5 Historical: - Allergies: 11:38 NSAIDS; rs5 - Home Meds: 11:38 "heart issues" [Active]; rs5 - PMHx: 11:38 acid reflux; CHF; cirrhosis of liver; Hypertensive disorder; tremors; PTSD rs5 (Cholecystectomy); Kidney disease; "heart issues"; "right eye issues"; - PSHx: 11:38 Cholecystectomy; rs5 - Immunization history:: Adult Immunizations up to date. - Infectious Disease History:: Denies. - Social history:: Smoking status: Patient/guardian denies using tobacco, but has a distant history of tobacco abuse. Screenin:35 [facility] ED Fall Risk Assessment (Adult) History of falling in the last 3 months, rs5 including since admission No falls in past 3 months (0 pts) Confusion or Disorientation No (0 pts) Intoxicated or Sedated No (0 pts) Impaired Gait Yes (1 pt) Mobility Assist Device Used Yes (1 pt) Altered Elimination No (0 pt) Score/Fall Risk Level 0 - 2 = Low Risk Oriented to surroundings, Maintained a safe environment. Abuse screen: Denies threats or abuse. Nutritional screening: No deficits noted. Tuberculosis screening: No symptoms or risk factors identified. Assessment: 11:35 General: Appears in no apparent distress. uncomfortable, Behavior is calm, cooperative. rs5 Pain: Complains of pain in generalized Pain currently is 8 out of 10 on a pain scale. Quality of pain is described as aching, Is continuous. Neuro: Level of Consciousness is awake, alert, obeys commands, Oriented to person, place, time, situation. Neuro:. Cardiovascular: Patient's skin is warm and dry. Respiratory: Airway is patent Respiratory effort is even, unlabored, Respiratory pattern is regular, symmetrical. Respiratory: Reports shortness of breath. GI: Abdomen is round non-distended, Abd is soft and non tender X 4 quads. : No signs and/or symptoms were reported regarding the genitourinary system. EENT: No signs and/or symptoms were reported regarding the EENT system. Derm: Skin is intact, Skin is pink, warm \\T\\ dry. Musculoskeletal: Range of motion: intact in all extremities. 12:51 Reassessment: Patient and/or family updated on plan of care and expected duration. Pain rs5 level reassessed. Patient is alert, oriented x 3, equal unlabored respirations, skin warm/dry/pink. 14:01 Reassessment: Patient and/or family updated on plan of care and expected duration. Pain rs5 level reassessed. Patient is alert, oriented x 3, equal unlabored respirations, skin warm/dry/pink. 14:41 Reassessment: No changes from previously documented assessment. rs5 Vital Signs: 11:35 BP 142 / 83; Pulse 103; Resp 17; Temp 98(O); Pulse Ox 95% on 2 lpm NC; rs5 12:53 BP 120 / 89; Pulse 108; Resp 17; Pulse Ox 98% on R/A; rs5 13:01 BP 120 / 90; Pulse 109; ec2 14:19 BP 155 / 87; Pulse 94; Pulse Ox 98% ; ec2 14:40 BP 128 / 84; Pulse 80; Resp 17; Pulse Ox 99% on R/A; rs5 ED Course: 11:33 Patient arrived in ED. ec2 11:33 Sammy Hsu MD is Attending Physician. ec2 11:35 Fco Fry RN is Primary Nurse. rs5 11:35 Patient has correct armband on for positive identification. Placed in gown. Bed in low rs5 position. Call light in reach. Side rails up X2. 11:35 No provider procedures requiring assistance completed. rs5 11:36 Arm band placed on right wrist. rs5 11:38 Triage completed. rs5 11:41 Inserted saline lock: 22 gauge in right forearm, using aseptic technique. Blood rs5 collected. Flushed with 10 mL NS. 12:19 XRAY Chest (1 view) In Process Unspecified. EDMS 13:29 CT Chest For PE Angio In Process Unspecified. EDMS 14:40 Provided Education on: discharge instructions . rs5 14:45 IV discontinued, intact, bleeding controlled, No redness/swelling at site. Pressure rs5 dressing applied. Administered Medications: 12:10 Drug: DuoNeb Nebulize (3:1) (2.5 mg - 0.5 mg) 3 ml Nebulizer once Route: Nebulizer; rs5 12:40 Follow up: Response: No adverse reaction rs5 12:10 Drug: Ondansetron IVP 4 mg IVP once; over 2 minutes Route: IVP; Site: right antecubital;rs5 12:30 Follow up: Response: No adverse reaction; Nausea is decreased rs5 12:10 Drug: Diazepam IVP 10 mg IVP once Route: IVP; Site: right antecubital; rs5 12:30 Follow up: Response: No adverse reaction rs5 12:30 Drug: Potassium Chloride PO 40 mEq PO once Route: PO; rs5 13:41 Follow up: Response: No adverse reaction rs5 13:55 Drug: MethylPrednisoLONE IVP 125 mg IVP once Route: IVP; Site: right forearm; rs5 14:20 Follow up: Response: No adverse reaction rs5 Medication: 12:00 VIS not applicable for this client. rs5 Outcome: 14:19 Discharge ordered by . ec2 14:45 Discharged to home via wheelchair, with family, rs5 14:45 Condition: stable rs5 14:45 Discharge instructions given to patient, family, Instructed on discharge instructions, follow up and referral plans. medication usage, Demonstrated understanding of instructions, follow-up care, medications, Prescriptions given X 2, 14:47 Patient left the ED. rs5 Signatures: Dispatcher [employer] Fco Joel RN RN rs5 Sammy Hsu MD MD ec2 Corrections: (The following items were deleted from the chart) 11:40 11:38 PSHx: right eye surgery; rs5 rs5 15:54 15:54 BP 128 / 84; Pulse 80bpm; Resp 17bpm; Pulse Ox 99% RA; rs5 rs5 15:55 12:53 BP 120 / 89; Pulse 121bpm; Resp 17bpm; Pulse Ox 98% RA; rs5 rs5
[2024-02-03] MEDS ORDERED: METHYLPREDNISOLONE 125 MG INJ ONE (14:41)
[2024-02-03 16:50] VITALS: TEMP 98
[2024-02-03 16:52] VITALS: O2SAT 98
[2024-02-03 16:55] VITALS: BP 155/87
--- NOTE | 2024-02-09 12:18 | EKG ---
Test Date: 2024-02-03 Test Time: 11:57:40 [employer]er: KAYA MEASUREMENT RESULTS: Intervals: Rate: 107 ME: 176 QRSD: 106 QT: 376 QTc: 501 [place]: P: 21 ME: 176 QRS: -52 T: 40 INTERPRETIVE STATEMENTS: Sinus tachycardia Left anterior fascicular block Abnormal ECG Compared to ECG 01/08/2024 23:17:03 Left anterior fascicular block now present Left-axis deviation no longer present Myocardial infarct finding no longer present Electronically Signed On 02-09-24 12:01:46 CDT by Martinez Thomas
== END 2024-02-03 14:47 | disposition home or self-care (01) ==
LOC: ER 11:27
DX: R06.00 Dyspnea, unspecified (principal); I50.9 Heart failure, unspecified; I10 Essential (primary) hypertension
CPT/HCPCS: 93005; 85025; 80048; 36415; 84484; 83880; 71275; 71045; Q9967; J7613; J7644; J3360; J2919; J2405; 99285

== ENCOUNTER 2024-05-02 15:52 | Inpatient (IN) | payer OTHER ==
--- OUTSIDE RECORDS SUMMARY | 2024-05-02 15:59 | XMS REPORT | Continuity of Care Document ---
Author Name Unknown Address [address] [facility] [place] [address] [facility] Address [address] [facility] [address] [place] [address] Care Team Providers Care Subway Operator Name Role Phone JANELL ORTEGA Primary Care Physician Unavailab ANDREW Campoverde Attending Clinician Unavailable ANDREW MONTANEZ Attending Clinician Unavailable BRENDEN HICKEY Attending Clinician Unavailabl BRENDEN White Attending Clinician UnavailDavon Pearce MD Attending Clinician [phone] DAVON MCBRIDE Attending Clinician Unavailable Doctor Unassigned, Krum Attending Clinician U saleem Joy RN, Cielo Elder Attending Clinician Unavail able ARPIT RUST Attending Clinician Unavailab Zion Montoya DO Attending Clinician [phone] Tony Quiroz MD Attending Clinician + [phone] Alan Ballard DO Attending Clinician [phone] Lisa Turner MD Attending Clinician + [phone] Arpit Rust MD Attending Clinician [phone] Tj MURRAY, [place] Attending Clinician [phone] Zeynep Orozco MD Attending Clinician [phone] RADIOLOGY Attending Clinician Unavailable Radiology Attending Clinician Unavailable ABBI ALICIA Attending Clinician Unavailable ANDREW MONTANEZ Admitting Clinician Unavailable ALAN BALLARD Admitting Clinician Unavailable Alan Ballard DO Admitting Clinician JANELL ORTEGA Admitting Clinician Unavailable Payers Payer Name Policy Type Policy Number Effective Date Expirati on Date Source [facility] [id number] 2022 00:00:00 [facility] [id number] 2010 00:00:00 [facility] O [id number] 2010 00:00:00 Problems Condition Name Condition Details Condition Category Status Onset Date Resolution Date Last Treatment Date Treating Clinician Comments Source Cardiomyop athy, unspecifie d type Cardiomyop athy, unspecifie d type Disease Active 07-12 00:00: 00 [facility] Other forms of dyspnea Other forms of dyspnea Disease Active 07-12 00:00: 00 [facility] Chest pain, unspecifie d type Chest pain, unspecifie d type Disease Active 07-12 00:00: 00 [facility] Hypotensio n Hypotensio n Disease Active 2022-04 00:00: 00 [facility] Alcoholic cirrhosis of liver with ascites Alcoholic cirrhosis of liver with ascites Disease Recurre nce 2022-04 00:00: 00 [facility] Allergies, Adverse Reactions, Alerts Allergy Name Allergy Type Status Severity Reaction(s) Onset Date Inactive Date Treating Clinician Comments Source NSAIDS (NON-GERMÁN ROIDAL ANTI-INF LAMMATOR Y DRUG) Drug Class Active Unknown-Cmnt 2022-04 00:00: 00 [facility] Nsaids (Non-Germán roidal Anti-Inf lammator y Drug) Propensi ty to adverse reaction s Active Unknown - See comments 2022-04 00:00: 00 [facility] NO KNOWN ALLERGIE S Drug Class Active [facility] Family History Family Member Diagnosis Comments Start Date Stop Date Sourc e [facility] Social History Social Habit Start Date Stop Date Quantity Comments Source History of tobacco use Passive smoker [facility] Gender identity [facility] Alcoholic beverage intake 2023-11-04 00:00:00 2023-11-04 00:00:00 1 /d [facility] Alcohol intake 2023-07-13 00:00:00 2023-07-13 00:00:00 1 /d [facility] Tobacco use and exposure 2023-03-03 00:00:00 2023-03-03 00:00:00 Smokeless tobacco non-user [facility] History of Social function 2023-02-22 00:00:00 2023-02-22 00:00:00 [facility] Sex assigned at 1965 00:00:00 1965 00:00:00 [facility] Smoking Status Start Date Stop Date Source Tobacco smoking consumption unknown [facility] Ex-smoker 2023-03-03 00:00:00 2023-03-03 00:00:00 [facility] Medications Ordered Medication Name Filled Medication Name Start Date Stop Date Current Medication? Ordering Clinician Indication Dosage Frequency Signature (SIG) Comments Components Source HYDROcodone -acetaminop hen (NORCO) 10-325 mg tablet 1 tablet 11-04 07:00: 00 11-04 06:31 :00 No 1{tbl} 1 tablet, Oral, ONCE NOW, 1 dose, On 11/05/23 at 0200, Routine [facility] amoxicillin -clavulanat e (AUGMENTIN) 875-125 mg per tablet 1 tablet 11-04 07:00: 00 11-04 06:31 :00 No 1{tbl} 1 tablet, Oral, ONCE NOW, 1 dose, On 11/05/23 at 0200, Routine, Reason for Anti-Infec tive: Documented Infection, Documented Infection Site: Skin / Soft Tissue, Duration of Therapy: Once (ED) [facility] ondansetron (ZOFRAN (PF)) injection 4 mg 11-04 06:30: 00 11-04 05:33 :00 No 4mg 4 mg, Slow IV Push, ONCE, 1 dose, On 11/05/23 at 0130, CHE [facility] metoclopram mello HCl (REGLAN) injection 10 mg 11-04 06:15: 00 11-04 06:31 :00 No 10mg 10 mg, Slow IV Push, ONCE, 1 dose, On 11/05/23 at 0115, CHE [facility] morpHINE (4 mg/mL) injection 4 mg 11-04 05:30: 00 11-04 04:44 :00 No 4mg 4 mg, Slow IV Push, ONCE, 1 dose, On 11/05/23 at 0030, STAT [facility] iopamidol (ISOVUE 370-500 mL) injection 85 mL 11-04 04:45: 00 11-04 04:45 :00 No [id number] 85mL 85 mL, Intravenou s, ONCE, 1 dose, On Tue11/04/23 at 2345, Routine [facility] ondansetron (ZOFRAN (PF)) injection 4 mg 11-04 03:00: 00 11-04 03:02 :00 No 4mg 4 mg, Slow IV Push, ONCE, 1 dose, On Tue11/04/23 at 2200, [facility] morpHINE (4 mg/mL) injection 4 mg 11-04 03:00: 00 11-04 03:03 :00 No 4mg 4 mg, Slow IV Push, ONCE, 1 dose, On Tue11/04/23 at 2200, STAT [facility] amoxicillin -clavulanat e 875-125 mg per tablet 11-04 00:00: 00 Yes [id number] 1{tbl} Take 1 tablet by mouth every 12 (twelve) hours. [facility] traMADoL (ULTRAM) 50 mg tablet 11-04 00:00: 00 Yes [id number] 50mg Take 1 tablet by mouth every 6 (six) hours as needed for Pain (scale 7-10). Indication s: acute pain [facility] ondansetron (ZOFRAN) 4 mg tablet 11-04 00:00: 00 Yes [id number] 4mg Take 1 tablet by mouth every 8 (eight) hours as needed for Nausea and Vomiting (N/V). [facility] perflutren protein-A microsphr (OPTISON) injection 3 mL 08-29 17:45: 00 08-29 17:43 :00 No [id number] 3mL 3 mL, IV Push, ONCE, 1 dose, On Tue08/30/23 at 1245, Routine [facility] tc 99m-tetrofo smin (MYOVIEW) injection 41.8 millicurie 08-29 14:00: 00 08-29 13:55 :00 No [id number] 41.8mCi 41.8 millicurie , Intravenou s, ONCE, 1 dose, On Tue08/30/23 at 0900, Routine [facility] regadenoson (LEXISCAN) injection 0.4 mg 08-29 14:00: 00 08-29 14:04 :00 No [id number] .4mg 0.4 mg, IV Push, ONCE, 1 dose, On Tue08/30/23 at 0900, Routine, service member approving Restricted medication : DAVON MCBRIDE [facility] tc 99m-tetrofo smin (MYOVIEW) injection 15.8 millicurie 08-29 13:00: 00 08-29 12:56 :00 No [id number] 15.8mCi 15.8 millicurie , Intravenou s, ONCE, 1 dose, On Tue08/30/23 at 0800, Routine [facility] NaCl 0.9% (NS) injection 5 mL 2022-04 15:30: 00 03-10 18:22 :00 No 5mL 5 mL, Slow IV Push, ONCE, 1 dose, On Tue03/10/23 at 0930, Routine [facility] heparin 1,000 unit/mL (10 mL) - dialysis catheter care 2022-04 15:16: 28 Yes 2000U PRN - SEE INSTRUCTIO NS, Starting on Tue03/10/23 at 0916, Until Discontinu ed, Routine
For Priming of Ports:&nbs p; &n bsp; After initial saline flush, prime each port with heparin according to the priming volume listed on each catheter port for catheter lock.
[facility] Cholecalcif jeannie, Vitamin D3, 50 mcg (2,000 unit) capsule 2022-04 15:01: 52 Yes Take by mouth. [facility] cyanocobala min, vitamin B-12, 2,000 mcg Tab 2022-04 15:01: 52 Yes Take by mouth. [facility] DULoxetine 60 mg capsule 2022-04 15:01: 52 Yes 60mg Take 1 capsule by mouth in the morning. [facility] empaglifloz in 10 mg 2022-04 15:01: 52 Yes 10mg Take 1 tablet by mouth in the morning. [facility] furosemide (LASIX) 40 mg tablet 2022-04 15:01: 52 Yes 40mg Take 1 tablet by mouth in the morning. [facility] losartan 25 mg tablet 2022-04 15:01: 52 Yes 25mg Take 1 tablet by mouth in the morning. [facility] mirtazapine 15 mg tablet 2022-04 15:01: 52 Yes 15mg Take 1 tablet by mouth at bedtime. [facility] Pantoprazol e 40 mg delayed-rel ease suspension 2022-04 15:01: 52 Yes 40mg Take 40 mg by mouth in the morning. [facility] rosuvastati n 40 mg tablet 2022-04 15:01: 52 Yes 40mg Take 1 tablet by mouth at bedtime. [facility] spironolact one (ALDACTONE) 25 mg tablet 2022-04 15:01: 52 Yes 25mg Take 1 tablet by mouth in the morning. [facility] thiamine 100 mg tablet 2022-04 15:01: 52 Yes 100mg Take 1 tablet by mouth in the morning. [facility] metoprolol succinate XL 50 mg 24 hr tablet 2022-04 13:24: 06 03-10 00:00 :00 No 50mg Take 1 tablet by mouth in the morning. [facility] folic acid 0.8 mg Cap 2022-04 11:33: 32 03-10 00:00 :00 No Take by mouth. [facility] methocarbam oL 750 mg tablet 2022-04 00:00: 00 Yes [id number] 750mg Take 1 tablet by mouth 2 (two) times daily as needed for Pain (scale 1-3). [facility] propranoloL 20 mg tablet 2022-04 00:00: 00 Yes [id number] 20mg Take 1 tablet by mouth in the morning and 1 tablet in the evening. [facility] traZODone 50 mg tablet 2022-04 00:00: 00 Yes [id number] 50mg Take 1 tablet by mouth at bedtime. [facility] ipratropium -albuteroL 0.5 mg-3 mg(2.5 mg base)/3 mL nebulizer solution 2022-04 00:00: 00 Yes [id number] 3mL Inhale 3 mL 4 (four) times daily. [facility] lactulose 10 gram/15 mL solution 2022-04 00:00: 00 Yes [id number] 30mL Take 30 mL by mouth in the morning and 30 mL in the evening. [facility] nystatin 100,000 unit/gram ointment 2022-04 00:00: 00 Yes [id number] Apply to area(s) 2 (two) times daily. [facility] rifAXIMin 550 mg tablet 2022-04 00:00: 00 Yes [id number] 550mg Take 1 tablet by mouth in the morning and 1 tablet in the evening. [facility] foLIC acid 1 mg tablet 2022-04 00:00: 00 Yes [id number] 1mg Take 1 tablet by mouth in the morning. [facility] pregabalin (LYRICA) capsule 25 mg 2022-04 15:00: 00 Yes 25mg 25 mg, Oral, DAILY, First dose (after last modificati on) on Tue03/09/23 at 0900, Until Discontinu ed, Routine [facility] acetaminoph en (TYLENOL) tablet 650 mg 2022-04 14:35: 40 Yes 650mg 650 mg, Oral, Q6HPRN, Starting on Tue03/09/23 at 0835, Until Discontinu ed, Routine, Pain (scale 1-3) [facility] mirtazapine (REMERON) tablet 15 mg 2022-04 03:00: 00 Yes 15mg 15 mg, Oral, QHS, First dose on Tue03/08/23 at 2100, Until Discontinu ed, Routine [facility] hydrOXYzine (ATARAX) tablet 10 mg 2022-04 14:46: 24 Yes 10mg 10 mg, Oral, Q6HPRN, Starting on Tue03/08/23 at 0846, Until Discontinu ed, Routine, Itching, Anxiety, insomnia [facility] NaCl 0.9% (NS) injection 5 mL 2022-04 13:00: 00 03-08 13:00 :00 No 5mL 5 mL, Slow IV Push, ONCE, 1 dose, On Tue03/08/23 at 0700, Routine [facility] heparin 1,000 unit/mL (10 mL) - dialysis catheter care 2022-04 12:52: 50 Yes 2000U PRN - SEE INSTRUCTIO NS, Starting on Tue03/08/23 at 0652, Until Discontinu ed, Routine
For Priming of Ports:&nbs p; &n bsp; After initial saline flush, prime each port with heparin according to the priming volume listed on each catheter port for catheter lock.
[facility] methocarbam oL (ROBAXIN) tablet 750 mg 2022-04 03:36: 54 Yes 750mg 750 mg, Oral, BIDPRN, Starting on Tue03/07/23 at 2136, Until Discontinu ed, Routine, Muscle Spasms [facility] HYDROcodone -acetaminop hen (NORCO 5) 5-325 mg tablet 1 tablet 2022-04 03:32: 15 Yes 1{tbl} 1 tablet, Oral, Q6HPRN, Starting on Tue03/07/23 at 2132, Until Discontinu ed, Routine, Pain (scale 7-10) [facility] traZODone (DESYREL) tablet 50 mg 2022-04 03:00: 00 Yes 50mg 50 mg, Oral, QHS, First dose on Tue03/07/23 at 2100, Until Discontinu ed, Routine [facility] heparin (porcine) injection 5,000 Units 2022-04 02:00: 00 Yes 5000U 5,000 Units, Subcutaneo us, Q12H, First dose on Tue03/07/23 at 2000, Until Discontinu ed, Routine [facility] ipratropium -albuteroL (DUONEB) 0.5 mg-3 mg(2.5 mg base)/3 mL nebulizer solution 3 mL 2022-04 15:00: 00 Yes 3mL 3 mL, Inhalation , QID, First dose (after last modificati on) on Tue03/07/23 at 0900, Until Discontinu ed, Routine [facility] foLIC acid (FOLATE) tablet 1 mg 2022-04 15:00: 00 Yes 1mg 1 mg, Oral, DAILY, First dose on 03/06/23 at 0900, Until Discontinu ed, Routine [facility] pantoprazol e (PROTONIX) EC tablet 40 mg 2022-04 15:00: 00 Yes 40mg 40 mg, Oral, DAILY, First dose on 03/06/23 at 0900, Until Discontinu ed, Routine [facility] thiamine (VITAMIN B1) tablet 100 mg 2022-04 15:00: 00 Yes 100mg 100 mg, Oral, DAILY, First dose on 03/06/23 at 0900, Until Discontinu ed, Routine [facility] lactulose (CEPHULAC) solution 30 mL 2022-04 14:00: 00 Yes 30mL 30 mL, Oral, BID, First dose (after last modificati on) on 03/06/23 at 0800, Until Discontinu ed, Routine [facility] rosuvastati n (CRESTOR) tablet 10 mg 2022-04 03:00: 00 Yes 10mg 10 mg, Oral, QHS, First dose (after last modificati on) on 03/05/23 at 2100, Until Discontinu ed, Routine [facility] melatonin (MELATIN) tablet 6 mg 2022-04 03:00: 00 03-08 16:57 :30 No 6mg 6 mg, Oral, QHS, First dose (after last modificati on) on 03/05/23 at 2100, Until Discontinu ed, Routine [facility] rifAXIMin (XIFAXAN) tablet 550 mg 2022-04 02:00: 00 Yes 550mg 550 mg, Oral, BID, First dose on 03/05/23 at 2000, Until Discontinu ed, Routine
Reason for Anti-Infec tive: Empiric Non-Surgic al Prophylaxi s
Durat ion of therapy: 5 days
Sp ecific indication : HE [facility] propranoloL (INDERAL) tablet 20 mg 2022-04 02:00: 00 Yes 20mg 20 mg, Oral, BID, First dose on 03/05/23 at 2000, Until Discontinu ed, Routine [facility] lactulose (CEPHULAC) solution 30 mL 2022-04 02:00: 00 03-06 13:29 :57 No 30mL 30 mL, Enteral, BID, First dose (after last modificati on) on 03/05/23 at 2000, Until Discontinu ed, Routine [facility] heparin [...] catheter port for catheter lock.
[facility] melatonin (MELATIN) tablet 6 mg 2022-04 03:00: 00 03-05 15:10 :20 No 6mg 6 mg, Oral, QHS, First dose (after last modificati on) on Tue03/04/23 at 2100, Until Discontinu ed, Routine [facility] acetaminoph en (TYLENOL) 160 mg/5 mL oral liquid 650 mg 2022-04 21:12: 26 03-09 14:36 :27 No 650mg 650 mg, Oral, Q6HPRN, Starting on Tue03/04/23 at 1512, Until Tue03/09/23 at 0836, Routine, Pain (scale 4-6), Temp > 38.5 C [facility] iopamidol (ISOVUE 370-500 mL) injection 80 mL 2022-04 19:02: 00 03-04 19:02 :00 No [id number] 80mL 80 mL, Intravenou s, ONCE, 1 dose, On Tue03/04/23 at 1315, Routine [facility] KCL (KLOR-CON M20) tablet 20 mEq 2022-04 17:45: 00 03-04 18:11 :00 No 20meq 20 mEq, Oral, ONCE, 1 dose, On Tue03/04/23 at 1145, Routine [facility] folic acid (FOLATE) 1 mg/mL oral solution 1 mg 2022-04 15:00: 00 03-05 15:10 :20 No 1mg 1 mg, Enteral, DAILY, First dose on Tue03/04/23 at 0900, Until Discontinu ed, Routine [facility] hydrOXYzine (ATARAX) tablet 10 mg 2022-04 13:10: 48 03-08 14:46 :34 No 10mg 10 mg, Oral, Q6HPRN, Starting on Tue03/04/23 at 0710, Until Tue03/08/23 at 0846, Routine, Itching, insomnia [facility] rosuvastati n (CRESTOR) tablet 10 mg 2022-04 03:00: 00 03-05 15:10 :20 No 10mg 10 mg, Oral, QHS, First dose (after last modificati on) on Tue03/03/23 at 2100, Until Discontinu ed, Routine [facility] melatonin (MELATIN) tablet 3 mg 2022-04 03:00: 00 03-04 13:11 :40 No 3mg 3 mg, Oral, QHS, First dose (after last modificati on) on Tue03/03/23 at 2100, Until Discontinu ed, Routine [facility] propranoloL (INDERAL) 20 mg/5 mL (4 mg/mL) solution 10 mg 2022-04 02:00: 00 03-05 15:10 :20 No 10mg 10 mg, Enteral, BID, First dose (after last modificati on) on Tue03/03/23 at 2000, Until Discontinu ed, Routine [facility] propranoloL (INDERAL) 20 mg/5 mL (4 mg/mL) solution 10 mg 2022-04 15:45: 00 03-03 21:14 :53 No 10mg 10 mg, Oral, BID, First dose on Tue03/03/23 at 0945, Until Discontinu ed, Routine [facility] NaCl 0.9% (NS) injection 5 mL 2022-04 15:30: 00 03-03 16:28 :00 No 5mL 5 mL, Slow IV Push, ONCE, 1 dose, On Tue03/03/23 at 0930, Routine [facility] heparin [...] catheter port for catheter lock.
[facility] nystatin (MYCOSTATIN ) ointment 2022-04 15:00: 00 Yes Topical, BID, First dose on Faustina 03/03/23 at 0900, Until Discontinu ed, Routine [facility] rifAXIMin (XIFAXAN) 20 mg/mL oral suspension 550 mg 2022-04 02:00: 00 03-05 15:10 :20 No 550mg 550 mg, Enteral, BID, First dose (after last modificati on) on Tue03/02/23 at 1999, Until Discontinu ed, Routine
Reason for Anti-Infec tive: Empiric Non-Surgic al Prophylaxi s
Durat ion of therapy: 5 days [facility] lactulose (CEPHULAC) solution 30 mL 2022-04 02:00: 00 03-05 15:10 :20 No 30mL 30 mL, Enteral, QID, First dose (after last modificati on) on Tue03/02/23 at 1999, Until Discontinu ed, Routine [facility] NaCl 0.9% (NS) injection 5 mL 2022-04 22:00: 00 03-02 23:25 :00 No 5mL 5 mL, Slow IV Push, ONCE, 1 dose, On Tue03/02/23 at 1600, Routine [facility] 1,000 unit/mL (10 mL) - dialysis catheter care 2022-04 21:48: 26 03-03 15:40 :07 No 2000U PRN - SEE INSTRUCTIO NS, Starting on Tue03/02/23 at 1548, Until Tue03/03/23 at 0940, Routine
For Priming of Ports:&nbs p; &n bsp; After initial saline flush, prime each port with heparin according to the priming volume listed on each catheter port for catheter lock.
[facility] heparin 1,000 unit/mL injection 2022-04 21:00: 18 03-02 21:00 :18 No PRN, Starting on Tue03/02/23 at 1500, Until Tue03/02/23 at 1500, Routine, Intra-op [facility] Cholecalcif jeannie, Vitamin D3, 50 mcg (2,000 unit) capsule 2022-04 20:48: 54 Yes Take by mouth. [facility] cyanocobala min, vitamin B-12, 2,000 mcg Tab 2022-04 20:48: 54 Yes Take by mouth. [facility] DULoxetine 60 mg capsule 2022-04 20:48: 54 Yes 60mg Take 1 capsule by mouth in the morning. [facility] empaglifloz in 10 mg 2022-04 20:48: 54 Yes 10mg Take 1 tablet by mouth in the morning. [facility] folic acid 0.8 mg Cap 2022-04 20:48: 54 Yes Take by mouth. [facility] furosemide (LASIX) 40 mg tablet 2022-04 20:48: 54 Yes 40mg Take 1 tablet by mouth in the morning. [facility] losartan 25 mg tablet 2022-04 20:48: 54 Yes 25mg Take 1 tablet by mouth in the morning. [facility] metoprolol succinate XL 50 mg 24 hr tablet 2022-04 20:48: 54 Yes 50mg Take 1 tablet by mouth in the morning. [facility] mirtazapine 15 mg tablet 2022-04 20:48: 54 Yes 15mg Take 1 tablet by mouth at bedtime. [facility] Pantoprazol e 40 mg delayed-rel ease suspension 2022-04 20:48: 54 Yes 40mg Take 40 mg by mouth in the morning. [facility] rosuvastati n 40 mg tablet 2022-04 20:48: 54 Yes 40mg Take 1 tablet by mouth at bedtime. [facility] spironolact one (ALDACTONE) 25 mg tablet 2022-04 20:48: 54 Yes 25mg Take 1 tablet by mouth in the morning. [facility] thiamine 100 mg tablet 2022-04 20:48: 54 Yes 100mg Take 1 tablet by mouth in the morning. [facility] lidocaine 1% (PF) (XYLOCAINE) injection 2022-04 20:32: 55 03-02 20:32 :55 No PRN, Starting on Tue03/02/23 at 1432, Until Tue03/02/23 at 1432, Routine, Intra-op [facility] FENTanyl PF (SUBLIMAZE (PF)) injection 2022-04 20:32: 42 03-02 20:47 :05 No Slow IV Push, PRN, Starting on Tue03/02/23 at 1432, Until Tue03/02/23 at 1447, Routine, [facility] mid[facility]am (VERSED) injection 2022-04 20:32: 23 03-02 20:32 :23 No IV Push, PRN, Starting on Tue03/02/23 at 1432, Until Tue03/02/23 at 1432, Routine, Intra-op [facility] midodrine (PROAMATINE ) tablet 10 mg 2022-04 12:00: 00 03-03 15:39 :09 No 10mg 10 mg, Enteral, Q8H, First dose (after last modificati on) on Tue03/02/23 at 0600, Until Discontinu ed, Routine [facility] midodrine (PROAMATINE ) tablet 15 mg 2022-04 04:00: 00 03-02 09:53 :15 No 15mg 15 mg, Enteral, Q8H, First dose (after last modificati on) on Tue03/01/23 at 2200, Until Discontinu ed, Routine [facility] rifAXIMin (XIFAXAN) 20 mg/mL oral suspension 550 mg 2022-04 02:00: 00 03-03 01:56 :04 No 550mg 550 mg, Oral, BID, First dose on Tue03/01/23 at 2000, Until Discontinu ed, Routine
Reason for Anti-Infec tive: Empiric Non-Surgic al Prophylaxi s
Durat ion of therapy: 5 days [facility] NaCl 0.9% (NS) injection 5 mL 2022-04 21:15: 00 03-01 21:50 :00 No 5mL 5 mL, Slow IV Push, ONCE, 1 dose, On Tue03/01/23 at 1515, Routine [facility] heparin 1,000 unit/mL (10 mL) - dialysis catheter care 2022-04 21:00: 05 03-02 21:50 :21 No 2000U PRN - SEE INSTRUCTIO NS, Starting on Tue03/01/23 at 1500, Until Tue03/02/23 at 1550, Routine
For Priming of Ports:&nbs p; &n bsp; After initial saline flush, prime each port with heparin according to the priming volume listed on each catheter port for catheter lock.
[facility] barium sulfate-NO CHARGE- (VARIBAR NECTOR) 40 % (w/v) oral suspension 30 mL 2022-04 19:30: 00 03-01 19:35 :00 No [id number] 30mL 30 mL, Oral, ONCE, 1 dose, On Tue03/01/23 at 1330, Routine [facility] lactulose (CEPHULAC) solution 30 mL 2022-04 18:00: 00 03-03 01:56 :04 No 30mL 30 mL, Oral, QID, First dose (after last modificati on) on Tue03/01/23 at 1200, Until Discontinu ed, Routine [facility] rifAXIMin (XIFAXAN) tablet 550 mg 2022-04 02:00: 00 03-01 16:26 :10 No 550mg 550 mg, Oral, BID, First dose on Tue02/28/23 at 2000, Until Discontinu ed, Routine
Reason for Anti-Infec tive: Empiric Therapy for Suspected Infection< br>Empiric Therapy Site: Other
O ther site: HE
Dura tion of therapy: 5 days [facility] octreotide (SANDOSTATI N) 500 mcg in NaCl 0.9% (NS) 100 mL infusion 2022-04 17:00: 00 03-01 22:37 :31 No 50ug/h 50 mcg/hr (10 mL/hr), IV Infusion, CONTINUOUS , Starting on Tue02/28/23 at 1100 [facility] ceFEPIme (MAXIPIME) 1,000 mg in NaCl [...] y
Durat ion of therapy: 5 days [facility] ceFEPIme (MAXIPIME) 2,000 mg in NaCl 0.9% (NS) 100 mL MINI-BAG 2022-04 16:15: 00 02-27 19:48 :00 No 2000mg 2,000 mg, IV Piggyback, ONCE, 1 dose, On 02/27/23 at 1015, Administer over 30 Minutes, 100 mL
Reas on for Anti-Infec tive: Empiric Therapy for Suspected Infection< br>Empiric Therapy Site: Respirator y
Durat ion of therapy: 5 days [facility] sodium phosphate 30 mmol in NaCl 0.9% (NS) 250 mL piggyback 2022-04 14:45: 00 02-27 18:39 :00 No 30mmol 30 mmol, IV Piggyback, ONCE, 1 dose, On 02/27/23 at 0845, Administer over 4 Hours, 250 mL [facility] cefTRIAXone (ROCEPHIN) 1,000 mg in NaCl [...] Abdominal< br>Duratio n of therapy: 5 days [facility] acetaminoph en (TYLENOL) tablet 650 mg 2022-04 04:04: 36 03-04 21:12 :18 No 650mg 650 mg, Enteral, Q6HPRN, Starting on Tue02/26/23 at 2304, Until Tue03/04/23 at 1512, Routine, Temp > 38 C [facility] lanolin alcohol-mo- w.pet-ceres (EUCERIN) cream 2022-04 03:30: 48 Yes Topical, PRN, Starting on Tue02/26/23 at 2230, Until Discontinu ed, Routine, Dermatitis /Rash, Near genital area [facility] rosuvastati n (CRESTOR) tablet 40 mg 2022-04 02:00: 00 03-03 01:56 :04 No 40mg 40 mg, Oral, QHS, First dose (after last modificati on) on Tue02/26/23 at 2100, Until Discontinu ed, Routine [facility] artificial tears(hypro mellose) (ISOPTO-TEA RS) 0.5 % ophthalmic drops 1 Drop 2022-04 21:16: 50 Yes 1[drp] 1 Drop, Both Eyes, PRN, Starting on Tue02/26/23 at 1616, Until Discontinu ed, Routine, Dry eyes [facility] pantoprazol e (PROTONIX) 2 mg/mL oral suspension 40 mg 2022-04 14:00: 00 03-05 15:10 :20 No 40mg 40 mg, Enteral, DAILY, First dose on Tue02/26/23 at 0900, Until Discontinu ed, Routine [facility] lactulose (CEPHULAC) solution 30 mL 2022-04 13:00: 00 03-01 14:09 :36 No 30mL 30 mL, Enteral, QID, First dose (after last modificati on) on Tue02/26/23 at 0800, Until Discontinu ed, Routine [facility] dexMEDEtomi dine 400 mcg in 0.9 % [...] maximum allowed dose, contact prescriber .
[facility] NaCl 0.9% (NS) IV infusion 1,000 mL 2022-04 23:15: 00 02-27 17:23 :24 No 1000mL at 250 mL/hr, CRRT Circuit, CONTINUOUS , Starting on Tue02/25/23 at 1815, Until Tue02/27/23 at 1123, Routine [facility] midodrine (PROAMATINE ) tablet 20 mg 2022-04 11:00: 00 03-02 02:32 :00 No 20mg 20 mg, Enteral, Q8H, First dose (after last modificati on) on Tue02/25/23 at 0600, Until Discontinu ed, Routine [facility] NORepinephr [...] at maximum allowed dose, contact prescriber .
[facility] albumin (PLASBUMIN) 25 % injection 87.5 g 2022-04 04:45: 00 02-26 01:00 :00 No 1g/kg 87.5 g (1 g/kg ?87.5 kg), IV Infusion, ONCE, 1 dose, On Faustina 02/24/23 at 2345, 400 mL
Cara cation: HEPATORENA L SYNDROME (DIAGNOSIS )
Comme nts: Albumin 1 g/kg/day for 2 days (up to a maximum of 100 g/day) [facility] CRRT fluid dialysate (PRISMASATE 4K) K 4.0-Ca 2.5, Mg 1.5, HCO3 32, NA 140, CL 113, LACTATE 3, DEX 110, Osm 300 2022-04 03:15: 00 02-27 17:23 :24 No 2800mL/ h 2,800 mL/hr, CRRT Circuit, CONTINUOUS , Starting on Tue02/24/23 at 2215, Until 02/27/23 at 1123, Routine [facility] midodrine (PROAMATINE ) tablet 10 mg 2022-04 03:00: 00 02-25 04:29 :59 No 10mg 10 mg, Enteral, Q8H, First dose (after last modificati on) on Faustina 02/24/23 at 2200, Until Discontinu ed, Routine [facility] CRRT fluid dialysate (PRISMASATE 4K) K 4.0-Ca 2.5, Mg 1.5, HCO3 32, NA 140, CL 113, LACTATE 3, DEX 110, Osm 300 2022-04 01:00: 00 02-25 03:00 :40 No 4000mL/ h 4,000 mL/hr, CRRT Circuit, CONTINUOUS , Starting on Tue02/24/23 at 2000, Until Tue02/24/23 at 2200, Routine [facility] NaCl 0.9% (NS) IV infusion 1,000 mL 2022-04 01:00: 00 02-25 23:05 :02 No 1000mL at 200 mL/hr, CRRT Circuit, CONTINUOUS , Starting on Tue02/24/23 at 2000, Until Tue02/25/23 at 1805, Routine [facility] thiamine (VITAMIN B1) tablet 100 mg 2022-04 14:00: 00 03-05 15:10 :20 No 100mg 100 mg, Enteral, DAILY, First dose (after last modificati on) on Tue02/24/23 at 0900, Until Discontinu ed, Routine [facility] foLIC acid (FOLATE) tablet 1 mg 2022-04 14:00: 00 03-03 21:14 :13 No 1mg 1 mg, Enteral, DAILY, First dose (after last modificati on) on Tue02/24/23 at 0900, Until Discontinu ed [facility] midodrine (PROAMATINE ) tablet 20 mg 2022-04 19:54: 00 02-24 22:29 :47 No 20mg 20 mg, Enteral, Q8H, First dose (after last modificati on) on Tue02/23/23 at 1500, Until Discontinu ed, Routine [facility] albumin (PLASBUMIN) 25 % injection 87.5 g 2022-04 19:34: 00 02-23 20:50 :33 No 1g/kg 87.5 g (1 g/kg ?87.5 kg), IV Infusion, ONCE, 1 dose, On Tue02/23/23 at 1445, 400 mL
Cara cation: HEPATORENA L SYNDROME (DIAGNOSIS )
Comme nts: Albumin 1 g/kg/day for 2 days (up to a maximum of 100 g/day) [facility] lactulose (CEPHULAC) solution 30 mL 2022-04 19:00: 00 02-26 01:25 :38 No 30mL 30 mL, Enteral, TID, First dose (after last modificati on) on Tue02/23/23 at 1400, Until Discontinu ed, [facility] 5 mg 2022-04 19:00: 00 02-23 19:51 :03 No 5mg 5 mg, Enteral, TID, First dose (after last modificati on) on Tue02/23/23 at 1400, Until Discontinu ed, Routine [facility] midodrine (PROAMATINE ) tablet 5 mg 2022-04 13:00: 00 02-23 17:39 :19 No 5mg 5 mg, Oral, TID, First dose on Tue02/23/23 at 0800, Until Discontinu ed, Routine [facility] NaCl 0.9% (NS) injection 5 mL 2022-04 13:00: 00 02-23 14:02 :00 No 5mL 5 mL, Slow IV Push, ONCE, 1 dose, On Tue02/23/23 at 0800, Routine [facility] cefTRIAXone (ROCEPHIN) 1,000 mg in NaCl 0.9% [...] Abdominal< br>Duratio n of therapy: 5 days [facility] octreotide (SANDOSTATI N) injection 100 mcg 2022-04 19:00: 00 02-24 23:03 :09 No 100ug 100 mcg, Subcutaneo us, TID, First dose on Tue02/22/23 at 1400, Until Discontinu ed, Routine
Indicatio n: Hepatorena l Syndrome [facility] NORepinephr ine 4 mg in 0.9% [...] intravenou s vasopresso r at a time.
[facility] QUEtiapine (SEROQUEL) tablet 25 mg 2022-04 01:00: 00 02-24 19:38 :58 No 25mg 25 mg, Oral, BID, First dose on Tue02/21/23 at 2000, Until Discontinu ed, Routine [facility] dexMEDEtomi dine 200 mcg in 0.9 [...] at maximum allowed dose, contact prescriber .
[facility] propofoL IV infusion 2022-04 22:25: 53 [...] vials should be discarded after 12 hours.
[facility] etomidate (AMIDATE) injection 10 mg 2022-04 22:00: 00 02-21 21:16 :00 No 10mg 10 mg, Slow IV Push, ONCE, 1 dose, On Tue02/21/23 at 1700, Routine [facility] succinylcho line (QUELICIN) injection 120 mg 2022-04 22:00: 00 02-21 21:16 :00 No 120mg 120 mg, IV Push, ONCE, 1 dose, On Tue02/21/23 at 1700, Routine [facility] heparin 1,000 unit/mL injection 2,800 Units 2022-04 21:46: 24 03-03 15:40 :07 No 2800U 2,800 Units, Slow IV Push, PRN - SEE INSTRUCTIO NS, Starting on Tue02/21/23 at 1646, Until Faustina 03/03/23 at 0940, Routine, for post HD hep lock [facility] etomidate (AMIDATE) injection 2022-04 21:07: 00 02-22 00:01 :33 No Slow IV Push, ONCE INTRA PROCEDURE, Starting on Tue02/21/23 at 1607, Until Discontinu ed, Routine, Intra-op [facility] succinylcho line (QUELICIN) injection 2022-04 21:07: 00 02-22 00:01 :33 No IV Push, ONCE INTRA PROCEDURE, Starting on Tue02/21/23 at 1607, Until Discontinu ed, Routine, Intra-op [facility] lactulose (CEPHULAC) solution 30 mL 2022-04 19:00: 00 02-23 17:39 :19 No 30mL 30 mL, Enteral, TID, First dose on Tue02/21/23 at 1400, Until Discontinu ed, Routine [facility] flumazeniL (ROMAZICON) injection 0.3 mg 2022-04 18:15: 00 02-21 17:27 :00 No .3mg 0.3 mg, IV Push, ONCE, 1 dose, On Tue02/21/23 at 1315, CHE
Fa culty member approving Restricted medication : TONY QUIROZ [facility] flumazeniL (ROMAZICON) injection 0.2 mg 2022-04 18:00: 00 02-21 17:14 :00 No .2mg 0.2 mg, IV Push, ONCE, 1 dose, On Tue02/21/23 at 1300, STAT
Fa culty member approving Restricted medication : TONY QUIROZ [facility] LORazepam (ATIVAN) injection 2 mg 2022-04 16:00: 00 02-21 16:39 :00 No 2mg 2 mg, Slow IV Push, ONCE, 1 dose, On Tue02/21/23 at 1100, Routine [facility] sulfur hexafluorid e microsphr (LUMASON) injection 5 mL 2022-04 15:30: 00 02-21 15:30 :00 No [id number] 5mL 5 mL, Intravenou s, ONCE, 1 dose, On Tue02/21/23 at 1030, Routine
service member approving Restricted medication : MARIO GARZA [facility] hydrOXYzine (ATARAX) tablet 10 mg 2022-04 09:53: 27 03-03 01:56 :04 No 10mg 10 mg, Oral, Q6HPRN, Starting on Tue02/21/23 at 0453, Until Tue03/02/23 at 1956, Routine, Itching [facility] ondansetron (ZOFRAN (PF)) injection 4 mg 2022-04 03:03: 54 03-06 13:29 :57 No 4mg 4 mg, Slow IV Push, Q6HPRN, Nausea and Vomiting (N/V), Starting on Tue02/20/23 at 2203
Do ses of ondansetro n 16 mg and above need to be administer ed via IV piggyback. For Dose >=24mg ECG monitoring is advisable.
[facility] lactulose (CEPHULAC) solution 45 mL 2022-04 01:00: 00 02-21 05:12 :01 No 45mL 45 mL, Oral, TID, First dose (after last modificati on) on Tue02/20/23 at 2000, Until Discontinu ed, Routine [facility] albumin (PLASBUMIN) 25 % injection 93.5 g 2022-04 14:15: 00 02-21 01:00 :00 No 1g/kg 93.5 g (1 g/kg ?93.5 kg), IV Infusion, ONCE, 1 dose, On Tue02/20/23 at 0915, 400 mL
Cara cation: HEPATORENA L SYNDROME (DIAGNOSIS )
Comme nts: Albumin 1 g/kg/day for 2 days (up to a maximum of 100 g/day) [facility] D5W IV infusion 1,000 mL 2022-04 13:30: 00 02-25 23:05 :02 No 1000mL at 150 mL/hr, IV Infusion, CONTINUOUS , Starting on 02/20/23 at 0830, Until Tue02/25/23 at 1805, Routine
To be used as predilutio n fluid through CRRT circuit once CRRT is started to avoid sodium level overcorrec tion (as dialysate sodium concentrat ion is 140 mml/L and patient's Na is 121)
[facility] lactulose (CEPHULAC) solution 15 mL 2022-04 13:00: 00 02-20 18:05 :41 No 15mL 15 mL, Oral, TID, First dose (after last modificati on) on 02/20/23 at 0800, Until Discontinu ed, Routine [facility] melatonin (MELATIN) tablet 3 mg 2022-04 05:30: 00 02-26 02:42 :34 No 3mg 3 mg, Oral, QHS, First dose on 02/20/23 at 0030, Until Discontinu ed, Routine [facility] rosuvastati n (CRESTOR) tablet 40 mg 2022-04 02:00: 00 02-26 06:24 :54 No 40mg 40 mg, Oral, QHS, First dose on 02/19/23 at 2100, Until Discontinu ed, Routine [facility] D5W IV infusion 1,000 mL 2022-04 21:45: 00 02-20 13:22 :08 No 1000mL at 220 mL/hr, IV Infusion, CONTINUOUS , Starting on 02/19/23 at 1645, Until 02/20/23 at 0822, Routine
To be used as predilutio n fluid through CRRT circuit once CRRT is started to avoid sodium level overcorrec tion (as dialysate sodium concentrat ion is 140 mml/L and patient's Na is 121)
[facility] CRRT fluid dialysate (PRISMASATE 4K) K 4.0-Ca 2.5, Mg 1.5, HCO3 32, NA 140, CL 113, LACTATE 3, DEX 110, Osm 300 2022-04 21:30: 00 02-24 17:25 :11 No 2400mL/ h 2,400 mL/hr, CRRT Circuit, CONTINUOUS , Starting on 02/19/23 at 1630, Until Faustina 02/24/23 at 1225, Routine [facility] NORepinephr ine 4 mg in 0.9% NaCl [...] intravenou s vasopresso r at a time.
[facility] albumin (PLASBUMIN) 25 % injection 93.5 g 2022-04 15:00: 00 02-20 12:00 :00 No 1g/kg 93.5 g (1 g/kg ?93.5 kg), IV Infusion, ONCE, 1 dose, On 02/19/23 at 1000, 400 mL
Cara cation: HEPATORENA L SYNDROME (DIAGNOSIS )
Comme nts: Albumin 1 g/kg/day for 2 days (up to a maximum of 100 g/day) [facility] furosemide (LASIX) injection 80 mg 2022-04 15:00: 00 02-19 19:42 :00 No 80mg 80 mg, Slow IV Push, ONCE, 1 dose, On 02/19/23 at 1000, Routine [facility] midodrine (PROAMATINE ) tablet 5 mg 2022-04 14:15: 00 02-19 18:23 :31 No 5mg 5 mg, Oral, Q8H, First dose on 02/19/23 at 0915, Until Discontinu ed, Routine [facility] pantoprazol e (PROTONIX) EC tablet 40 mg 2022-04 14:00: 00 02-26 02:42 :34 No 40mg 40 mg, Oral, DAILY, First dose on 02/19/23 at 0900, Until Discontinu ed, Routine [facility] foLIC acid (FOLATE) tablet 1 mg 2022-04 14:00: 00 02-23 17:39 :19 No 1mg 1 mg, Oral, DAILY, First dose on 02/19/23 at 0900, Until Discontinu ed [facility] thiamine (VITAMIN B1) tablet 100 mg 2022-04 14:00: 00 02-23 17:39 :19 No 100mg 100 mg, Oral, DAILY, First dose on 02/19/23 at 0900, Until Discontinu ed, Routine [facility] magnesium sulfate in water 2 gram/50 mL (4 %) infusion 2 g 2022-04 13:30: 00 02-19 15:20 :00 No 2g 2 g, IV Piggyback, Administer over 60 Minutes, ONCE, 1 dose, On 02/19/23 at 0830, Routine [facility] heparin (porcine) injection 5,000 Units 2022-04 13:00: 00 02-23 00:21 :58 No 5000U 5,000 Units, Subcutaneo us, Q12H, First dose on 02/19/23 at 0800, Until Discontinu ed, Routine [facility] lactulose (CEPHULAC) solution 15 mL 2022-04 13:00: 00 02-20 06:44 :06 No 15mL 15 mL, Oral, BID, First dose on 02/19/23 at 0800, Until Discontinu ed, Routine [facility] ceFEPIme (MAXIPIME) 1,000 mg in NaCl 0.9% [...] Abdominal< br>Duratio n of therapy: 72 hours [facility] furosemide (LASIX) injection 40 mg 2022-04 11:00: 00 02-19 10:23 :00 No 40mg 40 mg, Slow IV Push, ONCE, 1 dose, On 02/19/23 at 0600, Routine [facility] folic acid 0.8 mg Cap 2022-04 01:32: 29 Yes Take by mouth. [facility] rosuvastati n 40 mg tablet 2022-04 01:32: 29 Yes 40mg Take 1 tablet by mouth at bedtime. [facility] thiamine 100 mg tablet 2022-04 01:32: 29 Yes 100mg Take 1 tablet by mouth in the morning. [facility] Cholecalcif jeannie, Vitamin D3, 50 mcg (2,000 unit) capsule 2022-04 01:31: 38 Yes Take by mouth. [facility] cyanocobala min, vitamin B-12, 2,000 mcg Tab 2022-04 01:31: 38 Yes Take by mouth. [facility] DULoxetine 60 mg capsule 2022-04 01:31: 38 Yes 60mg Take 1 capsule by mouth in the morning. [facility] empaglifloz in 10 mg 2022-04 01:31: 38 Yes 10mg Take 1 tablet by mouth in the morning. [facility] furosemide (LASIX) 40 mg tablet 2022-04 01:31: 38 Yes 40mg Take 1 tablet by mouth in the morning. [facility] losartan 25 mg tablet 2022-04 01:31: 38 Yes 25mg Take 1 tablet by mouth in the morning. [facility] metoprolol succinate XL 50 mg 24 hr tablet 2022-04 01:31: 38 Yes 50mg Take 1 tablet by mouth in the morning. [facility] mirtazapine 15 mg tablet 2022-04 01:31: 38 Yes 15mg Take 1 tablet by mouth at bedtime. [facility] Pantoprazol e 40 mg delayed-rel ease suspension 2022-04 01:31: 38 Yes 40mg Take 40 mg by mouth in the morning. [facility] spironolact one (ALDACTONE) 25 mg tablet 2022-04 01:31: 38 Yes 25mg Take 1 tablet by mouth in the morning. [facility] Vital Signs Vital Name Observation Time Observation Value Comments S cassandra Systolic blood pressure 2023-11-05 06:31:00 162 mm[Hg] [facility] Diastolic blood pressure 2023-11-05 06:31:00 98 mm[Hg] [facility] Heart rate 2023-11-05 06:31:00 103 /min [facility] Body temperature 2023-11-05 06:31:00 37.44 Maru [facility] Respiratory rate 2023-11-05 06:31:00 18 /min [facility] Oxygen saturation in Arterial blood by Pulse oximetry 2023-11-05 06:31:00 97 /min [facility] Body height 2023-11-05 01:46:00 175.3 cm [facility] Body weight 2023-11-05 01:46:00 88.451 kg [facility] BMI 2023-11-05 01:46:00 28.80 kg/m2 [facility] Systolic blood pressure 2023-07-13 20:35:00 123 mm[Hg] [facility] Diastolic blood pressure 2023-07-13 20:35:00 72 mm[Hg] [facility] Heart rate 2023-07-13 20:35:00 84 /min [facility] Body temperature 2023-07-13 20:35:00 37.06 Maru [facility] Respiratory rate 2023-07-13 20:35:00 19 /min [facility] Body height 2023-07-13 20:35:00 177.8 cm [facility] Body weight 2023-07-13 20:35:00 93.016 kg [facility] BMI 2023-07-13 20:35:00 29.42 kg/m2 [facility] Oxygen saturation in Arterial blood by Pulse oximetry 2023-07-13 20:35:00 97 /min [facility] Systolic blood pressure 2023-03-10 19:24:00 101 mm[Hg] [facility] Diastolic blood pressure 2023-03-10 19:24:00 61 mm[Hg] [facility] Heart rate 2023-03-10 19:24:00 101 /min Un[facility] Body temperature 2023-03-10 19:24:00 36.28 Maru [facility] Respiratory rate 2023-03-10 19:24:00 18 /min [facility] Body weight 2023-03-10 19:24:00 77.6 kg [facility] BMI 2023-03-10 19:24:00 25.25 kg/m2 [facility] Oxygen saturation in Arterial blood by Pulse oximetry 2023-03-10 14:31:00 97 /min [facility] Body height 2023-03-01 02:00:00 175.3 cm [facility] Systolic blood pressure 2023-03-04 17:13:00 142 mm[Hg] [facility] Diastolic blood pressure 2023-03-04 17:13:00 75 mm[Hg] [facility] Heart rate 2023-03-04 17:13:00 78 /min [facility] Body temperature 2023-03-04 17:13:00 37.11 Maru [facility] Respiratory rate 2023-03-04 17:13:00 18 /min [facility] Oxygen saturation in Arterial blood by Pulse oximetry 2023-03-04 17:13:00 96 /min Agar o f [facility] Body weight 2023-03-03 19:30:00 86.5 kg [facility] BMI 2023-03-03 19:30:00 28.15 kg/m2 [facility] Body height 2023-03-01 02:00:00 175.3 cm [facility] Procedures Procedure Date / Time Performed Performing Clinician Source CT TRAUMA THORAX W CONTRAST 2023-11-05 04:16:45 Andrew Montanez [facility] CT TRAUMA THORACIC SPINE WO CONTRAST 2023-11-05 04:16:45 Andrew Montanez [facility] CT TRAUMA ABDOMEN PELVIS W CONTRAST 2023-11-05 04:16:45 Andrew Montanez [facility] CT TRAUMA LUMBAR SPINE WO CONTRAST 2023-11-05 04:16:45 Andrew Montanez [facility] CT MAXILLOFACIAL/MANDIBLE WO CONTRAST 2023-11-05 04:15:40 Andrew Montanez [facility] CT TRAUMA CERVICAL SPINE WO CONTRAST 2023-11-05 04:15:40 Andrew Montanez [facility] XR KNEE 3 VW RIGHT 2023-11-05 02:46:21 Andrew Montanez [facility] URINALYSIS 2023-11-05 02:30:00 Andrew Montanez [facility] LIPASE 2023-11-05 02:24:00 Andrew Montanez [facility] MAGNESIUM 2023-11-05 02:24:00 Andrew Montanez [facility] COMP. METABOLIC PANEL (30240) 2023-11-05 02:24:00 Andrew Montanez [facility] CBC WITH DIFF 2023-11-05 02:24:00 Andrew Montanez [facility] TRANSTHORACIC ECHO (TTE) COMPLETE W/ CONTRAST 2023-08-30 15:25:00 Jose, [facility] MYOCARDIUM PERFUSION STRESS AND REST 2023-08-30 14:40:00 Jose, [facility] MYOCARDIUM PERFUSION STRESS AND REST 2023-08-30 14:40:00 Jose, [facility] MYOCARDIUM PERFUSION STRESS AND REST 2023-08-30 14:40:00 Jose, [facility] MYOCARDIUM PERFUSION STRESS AND REST 2023-08-30 14:40:00 Jose, [facility] REFERRAL- REQUEST/RESPONSE 2023-06-21 06:01:00 Doctor Unassigned, [facility] REFERRAL- REQUEST/RESPONSE 2023-06-03 06:01:00 Doctor Unassigned, [facility] ADVANCE DIRECTIVE 2023-03-16 06:01:00 Doctor Laurel ssigned, [facility] MAGNESIUM 2023-03-10 09:42:00 Jayme Seay Caodaism [facility] BASIC METABOLIC PANEL (NA, K, CL, CO2, GLUCOSE, BUN, CREATININE, CA) 2023-03-10 09:42:00 Jayme Seay Caodaism [facility] CBC WITH DIFF 2023-03-10 09:42:00 Jayme Seay [facility] MAGNESIUM 2023-03-09 11:08:00 Jayme Seay Caodaism [facility] BASIC METABOLIC PANEL (NA, K, CL, CO2, GLUCOSE, BUN, CREATININE, CA) 2023-03-09 11:08:00 Jayme Seay [facility] CBC WITH DIFF 2023-03-09 11:08:00 Jayme Seay [facility] COMP. METABOLIC PANEL ([id number]) 2023-03-05 09:46:00 Christopher Heck [facility] CBC WITH DIFF 2023-03-05 09:46:00 [facility] BLOOD CULTURE SCREEN 2023-03-05 00:38:00 Daysi Rapp [facility] BLOOD CULTURE SCREEN 2023-03-05 00:31:00 Daysi Rapp [facility] CT STROKE ANGIOGRAM HEAD 2023-03-04 19:07:53 Lisa Turner [facility] CT STROKE ANGIOGRAM NECK 2023-03-04 19:07:53 Lisa Turner [facility] CT STROKE HEAD WO CONTRAST 2023-03-04 19:06:48 Lisa Turner [facility] TROPONIN I 2023-03-04 18:49:00 Lisa Turner [facility] BASIC METABOLIC PANEL (NA, K, CL, CO2, GLUCOSE, BUN, CREATININE, CA) 2023-03-04 18:49:00 Analia Rapp [facility] CBC WITHOUT DIFF 2023-03-04 18:49:00 Lisa Turner [facility] PROTHROMBIN TIME / INR 2023-03-04 18:49:00 Lisa Turner [facility] ACTIVATED PARTIAL THRMPLAS NBA 2023-03-04 18:49[facility]00 [facility] ANTIGLOBULIN TEST 2023-03-04 18:49:00 Christopher Heck [facility] POCT GLUCOSE (AUTOMATED) 2023-03-04 18:43:00 Lisa Turner [facility] CBC WITH DIFF 2023-03-04 11:12:00 Analia Rapp [facility] BASIC METABOLIC PANEL (NA, K, CL, CO2, GLUCOSE, BUN, CREATININE, CA) 2023-03-04 11:12:00 Analia Rapp [facility] MAGNESIUM 2023-03-04 11:12[facility] 11:12:00 Dionte [facility] PHOSPHORUS 2023-03-04 11:12:00 [facility]-03-04 11:12[facility] PANEL (NA, K, CL, CO2, GLUCOSE, BUN, CREATININE, CA) 2023-03-04 11:12:00 DionteNoniAnalia [facility] CBC WITH DIFF 2023-03-04 11:12:00 GordoAnalia fowler [facility] XR KUB 2023-03-03 09:03:00 Loghin [facility] XR KUB 2023-03-03 09:03:00 [facility] X[facility] KUB 2023-03-03 08:46:00 [facility]UB 2023-03-03 08:46:00 [facility] XR KUB 2023-03-03 07:38:00 [facility] XR KUB 2023-03-03 07:38:00 [facility] XR ABDOMEN 1 VW 2023-03-03 05:28:00 DionteAnalia [facility] XR ABDOMEN 1 VW 2023-03-03 05:28:00 Dionte Analia [facility] PROTHROMBIN TIME / INR 2023-03-02 19:10:00 Gibran guardado [facility] PROT[facility] / INR 2023-03-02 19:10:00 Gibran guardado [facility] IRON PANEL 2023-03-02 10:36:00 Carlos Vincent [facility] FERRITIN SERUM 2023-03-02 10:36:00 Carlos Vincent [facility] CBC WITH DIFF 2023-03-02 10:36:00 Carlos Vincent [facility] BASIC METABOLIC PANEL (NA, K, CL, CO2, GLUCOSE, BUN, CREATININE, CA) 2023-03-02 10:36:00 Carlos Vincent [facility] MAGNESIUM 2023-03-02 10:36:00 Carlos Vincent [facility] PHOSPHORUS 2023-03-02 10:36:00 VincentCarlos [facility] PHOSPHORUS 2023-03-02 10:36:00 Vincent, Carlos Doran [facility] MAGNESIUM 2023-03-02 10:36:00 Vincent, Carlos Doran [facility] FERRITIN SERUM 2023-03-02 10:36:00 VincentCarlos [facility] BASIC METABOLIC PANEL (NA, K, CL, CO2, GLUCOSE, BUN, CREATININE, CA) 2023-03-02 10:36:00 Vincent, Carlos Doran [facility] IRON PANEL 2023-03-02 10:36:00 Vincent, Carlos Doran [facility] CBC WITH DIFF 2023-03-02 10:36:00 Vincent, Carlos Doran [facility] XR CHEST 1 VW 2023-03-02 06:52:00 Roger Chan [facility] XR CHEST 1 VW 2023-03-02 06:52:00 Roger Chan [facility] CBC WITHOUT DIFF 2023-03-01 23:03:00 VincentCarlos [facility] CBC WITHOUT DIFF 2023-03-01 23:03:00 VincentCarlos [facility] FL MODIFIED BARIUM SWALLOW 2023-03-01 20:00:00 Sincere Arellano [facility] FL MODIFIED BARIUM SWALLOW 2023-03-01 20:00:00 Sincere Arellano [facility] TRANSFUSE PACKED RBC 2023-03-01 14:50:00 Yusuf Green [facility] TRANSFUSE PACKED RBC 2023-03-01 14:50:00 Yusuf Green [facility] PREPARE PACKED RBC 2023-03-01 14:31:00 Yusuf Green mmad [facility] PREPARE PACKED RBC 2023-03-01 14:31:00 Yusuf Green mmad [facility] AMMONIA, PLASMA 2023-03-01 11:20:00 Dany [facility] AMMONIA, PLASMA 2023-03-01 11:20:00 Barratt, Elfego [facility] CBC WITH DIFF 2023-03-01 10:47:00 VincentCarlos lehman [facility] BASIC METABOLIC PANEL (NA, K, CL, CO2, GLUCOSE, BUN, CREATININE, CA) 2023-03-01 10:47:00 Carlos Vincent [facility] MAGNESIUM 2023-03-01 10:47:00 VincentCarlos lehman [facility] MAGNESIUM 2023-03-01 10:47:00 VincentCarlos [facility] BASIC METABOLIC PANEL (NA, K, CL, CO2, GLUCOSE, BUN, CREATININE, CA) 2023-03-01 10:47:00 VincentCarlos lehman [facility] CBC WITH DIFF 2023-03-01 10:47:00 VincentCarlos lehman [facility] CBC WITH DIFF 2023-02-28 09:36:00 Abigail Chavez [facility] MAGNESIUM 2023-02-28 09:36:00 Abigail Chavez [facility] COMP. METABOLIC PANEL ([id number]) 2023-02-28 09:36:00 Abigail Chavez [facility] PROTHROMBIN TIME / INR 2023-02-28 09:36:00 [facility]UM 2023-02-28 09:36:00 Abigail Chavez [facility] COMP. METABOLIC PANEL ([id number]) 2023-02-28 09:36:00 Abigail Chavez [facility] CBC WITH DIFF 2023-02-28 09:36:00 Abigail Chavez [facility] PROTHROMBIN TIME / INR 2023-02-28 09:36:00 Ying Saenz [facility] CBC WITHOUT DIFF 2023-02-28 01:06:00 Abigail Chavez [facility] CBC WITHOUT DIFF 2023-02-28 01:06:00 [facility] 2023-02-27 21:27:00 Rhoda Severino [facility] TRANSFUSE PACKED RBC 2023-02-27 21:27:00 Rhoda Severino [facility] PREPARE PACKED RBC 2023-02-27 21:19:05 [facility] 2023-02-27 21:19:05 Rhoda [facility] PHOSPHORUS 2023-02-27 19:13:00 Marcie Trujillo Namrata [facility] ABORH CONFIRMATION (LAB ONLY) 2023-02-27 19:13:00 Zion Vila [facility] PHOSPHORUS 2023-02-27 19:13:00 Marcie Trujilloerine [facility] ABORH CONFIRMATION (LAB ONLY) 2023-02-27 19:13:00 Julito [facility] HB ABO GROUPING 2023-02-27 18:39:00 Rhoda Severino [facility] HB ABO GROUPING 2023-02-27 18:39:00 Rhoda Severino [facility] SPUTUM CULTURE 2023-02-27 17:28:00 Rhoda Severino [facility] SPUTUM CULTURE 2023-02-27 17:28:00 Rhoda Severino [facility] US ABDOMEN LIMITED 2023-02-27 15:43:53 Brian Chavez [facility] US ABDOMEN LIMITED 2023-02-27 15:43:53 Brian Chavez [facility] FIBRINOGEN 2023-02-27 14:44:00 Abigail Chavez [facility] ACTIVATED PARTIAL THRMPLAS NBA 2023-02-27 14:44:00 Abigail Chavez [facility] D-DIMER 2023-02-27 14:44:00 Abigail Chavez [facility] DIFF CONSULT BY PATHOLOGIST 2023-02-27 14:44:00 Abigail Chavez [facility] CBC WITH DIFF 2023-02-27 14:44:00 Abigail Chavez [facility] DIFF CONSULT INTERPRETATION 2023-02-27 14:44:00 Abigail Chavez [facility] DIFF CONSULT BY PATHOLOGIST 2023-02-27 14:44:00 Abigail Chavez [facility] CBC WITH DIFF 2023-02-27 14:44:00 Abigail Chavez [facility] D-DIMER 2023-02-27 14:44:00 [facility] ACTIVATED PARTIAL THRMPLAS NBA 2023-02-27 14:44:00 Abigail Chavez [facility] FIBRINOGEN 2023-02-27 14:44:00 Abigail Chavez [facility] DIFF CONSULT INTERPRETATION 2023-02-27 14:44:00 Abigail Chavez [facility] CBC WITH DIFF 2023-02-27 09:25:00 Elfego Saenz [facility] MAGNESIUM 2023-02-27 09:25:00 Elfego Saenz [facility] PHOSPHORUS 2023-02-27 09:25:00 Elfego Saenz [facility] COMP. METABOLIC PANEL ([id number]) 2023-02-27 09:25:00 Abigail Chavez [facility] PROTHROMBIN TIME / INR 2023-02-27 09:25:00 [facility] BILI UNCONJUGATED/BILI CONJUG 2023-02-27 09:25:00 Elfego Saenz [facility] PHOSPHORUS 2023-02-27 09:25:00 Elfego Saenz [facility] MAGNESIUM 2023-02-27 09:25:00 Elfego Saenz [facility] BILI UNCONJUGATED/BILI CONJUG 2023-02-27 09:25:00 Elfego Saenz [facility] COMP. METABOLIC PANEL ([id number]) 2023-02-27 09:25:00 [facility] CBC WITH DIFF 2023-02-27 09:25:00 Elfego Saenz Un [facility] PROTHROMBIN TIME / INR 2023-02-27 09:25:00 Ying Saenz [facility] XR CHEST 1 VW 2023-02-27 05:16:00 Bilgabbie Yusuf Vásquezray cityneftali [facility] XR CHEST 1 VW 2023-02-27 05:16:00 [facility] AC PANEL 20 + LACTIC ACID 2023-02-27 03:56:00 Gus [facility] AC PANEL 20 + LACTIC ACID 2023-02-27 03:56:00 Gus [facility] MAGNESIUM 2023-02-26 11:18:00 [facility] COMP. METABOLIC PANEL ([id number]) 2023-02-26 11:18:00 Abigail Chavez [facility] MAGNESIUM 2023-02-26 11:18:00 [facility] COMP. METABOLIC PANEL ([id number]) 2023-02-26 11:18:00 Abigail Chavez [facility] CBC WITH DIFF 2023-02-26 11:13:00 Abigail Chavez [facility] CBC WITH DIFF 2023-02-26 11:13:00 Abigail Chavez [facility] SPUTUM CULTURE 2023-02-26 04:05:00 Abigail Chavez Un [facility] SPUTUM CULTURE 2023-02-26 04:05:00 [facility]ail [facility] BLOOD [facility]ULT[facility] SCREEN 2023-02-25 23:28:00 Kaleigh Chavez [facility] BLOOD CULTURE SCREEN 2023-02-25 23:28:00 Kaleigh Chavez [facility] BLOOD CULTURE SCREEN 2023-02-25 23:17:00 Kaleigh Chavez [facility] CBC WITHOUT DIFF 2023-02-25 23:17:00 Rhoda Severino [facility] BLOOD CULTURE SCREEN 2023-02-25 23:17:00 Kaleigh Chavez [facility] CBC WITHOUT DIFF 2023-02-25 23:17:00 Rhoda Severino [facility] ACUTE CARE ARTERIAL BLOOD GAS 2023-02-25 16:06:00 Maycol [facility] ACUTE CARE ARTERIAL BLOOD GAS 2023-02-25 16:06:00 [facility] 1 VW 2023-02-25 15:40:00 Rhoda Severino [facility] XR CHEST 1 VW 2023-02-25 15:40:00 Rhoda Severino [facility] CBC WITH DIFF 2023-02-25 10:32:00 Abigail Chavez [facility] MAGNESIUM 2023-02-25 10:32:00 [facility] COMP. METABOLIC PANEL ([id number]) 2023-02-25 10:32:00 Scott [facility] PHOSPHORUS 2023-02-25 10:32:00 [facility] PHOSPHORUS 2023-02-25 10:32:00 [facility] MAGNESIUM 2023-02-25 10:32:[address] [facility] COMP. METABOLIC PANEL ([id number]) 2023-02-25 10:32:00 [facility] CBC WITH DIFF 2023-02-25 10:32:00 Abigail Chavez [facility] BASIC METABOLIC PANEL (NA, K, CL, CO2, GLUCOSE, BUN, CREATININE, CA) 2023-02-24 18:11:00 [facility] BASIC METABOLIC PANEL (NA, K, CL, CO2, GLUCOSE, BUN, CREATININE, CA) 2023-02-24 18:11:00 [facility] BASIC METABOLIC PANEL (NA, K, CL, CO2, GLUCOSE, BUN, CREATININE, CA) 2023-02-24 09:21:00 [facility] CBC WITH DIFF 2023-02-24 09:21:00 Abigail Chavez [facility] MAGNESIUM 2023-02-24 09:21:00 Abigail Chavez [facility] COMP. METABOLIC PANEL ([id number]) 2023-02-24 09:21:00 [facility] PHOSPHORUS 2023-02-24 09:21:00 [facility] PHOSPHORUS 2023-02-24 09:21:00 [facility] MAGNESIUM 2023-02-24 09:21:00 [facility] BASIC METABOLIC PANEL (NA, K, CL, CO2, GLUCOSE, BUN, CREATININE, CA) 2023-02-24 09:21:00 Scott [facility] COMP. METABOLIC PANEL ([id number]) 2023-02-24 09:21:00 Scott [facility] CBC WITH DIFF 2023-02-24 09:21:00 Abigail Chavez [facility] CBC WITH DIFF 2023-02-23 08:35:00 [facility] 2023-02-23 08:35:00 [facility] COMP. METABOLIC PANEL ([id number]) 2023-02-23 08:35:00 Scott [facility] MAGNESIUM 2023-02-23 08:35:[address] [facility] COMP. METABOLIC PANEL ([id number]) 2023-02-23 08:35:00 Scott [facility] CBC WITH DIFF 2023-02-23 08:35:00 Abigail Chavez [facility] AC PANEL 20 + LACTIC ACID 2023-02-22 21:51:00 Rasmusse shea [facility] AC PANEL 20 + LACTIC ACID 2023-02-22 21:51:00 Rasmusse shea [facility] AC PANEL 20 + LACTIC ACID 2023-02-22 16:21:00 [facility] + LACTIC ACID 2023-02-22 16:21:[address] [facility] HIT - AB 2023-02-22 15:18:00 [facility] EXTRA SST HOLD FOR ARUP 2023-02-22 15:18:00 Scott [facility] HIT - AB 2023-02-22 15:18:[address] [facility] EXTRA SST HOLD FOR ARUP 2023-02-22 15:18:00 [facility] CBC WITHOUT DIFF 2023-02-22 10:07:[address] [facility] MAGNESIUM 2023-02-22 10:07:[address] [facility] COMP. METABOLIC PANEL ([id number]) 2023-02-22 10:07:[address] [facility] PROTHROMBIN TIME / INR 2023-02-22 10:07:[address] [facility] MAGNESIUM 2023-02-22 10:07:[address] [facility] COMP. METABOLIC PANEL ([id number]) 2023-02-22 10:07:[address] [facility] CBC WITHOUT DIFF 2023-02-22 10:07:[address] [facility] PROTHROMBIN TIME / INR 2023-02-22 10:07:[address] [facility] ACUTE CARE ARTERIAL BLOOD GAS 2023-02-21 22:48:00 John Arellano [facility] ACUTE CARE ARTERIAL BLOOD GAS 2023-02-21 22:48:00 John Arellano [facility] XR KUB 2023-02-21 22:37:00 Jonathan Engle [facility] XR KUB 2023-02-21 22:37:00 Jonathan Engle [facility] XR CHEST 1 VW 2023-02-21 22:34:00 Jonathan Engle [facility] XR CHEST 1 VW 2023-02-21 22:34:00 Jonathan Engle [facility] INTUBATION 2023-02-21 21:08:00 Ute Spencer Un [facility] INTUBATION 2023-02-21 21:08:00 Ute Spencer [facility] AC PANEL 20 + LACTIC ACID 2023-02-21 20:24:00 Ham Chan [facility] AC PANEL 20 + LACTIC ACID 2023-02-21 20:24:00 Ham Chan [facility] AC PANEL 20 + LACTIC ACID 2023-02-21 17:09:00 Jonathan Guillen [facility] AC PANEL 20 + LACTIC ACID 2023-02-21 17:09:00 Jonathan Guillen [facility] HB ECG ROUTINE & RHYTHM STRIP 2023-02-21 15:29:31 [facility] & RHYTHM STRIP 2023-02-21 15:29:31 Dustin [facility] TRANSTHORACIC ECHO (TTE) COMPLETE W/ CONTRAST 2023-02-21 15:28:25 [facility]ACIC E[facility] (TTE) COMPLETE W/ CONTRAST 2023-02-21 15:28:25 [facility]iff [facility] X[facility] CHEST 1 VW 2023-02-21 11:49:00 Elfego Saenz [facility] XR CHEST 1 VW 2023-02-21 11:49:00 Elfego Saenz [facility] CBC WITH DIFF 2023-02-21 10:30:00 Elfego Saenz [facility] BASIC METABOLIC PANEL (NA, K, CL, CO2, GLUCOSE, BUN, CREATININE, CA) 2023-02-21 10:30:00 [facility] HEPATIC FUNCTION PANEL ([id number]) (ALB,T.PRO,BILI T,BU/BC,ALT,AST,ALK PHOS) 2023-02-21 10:30:00 [facility] PROTHROMBIN TIME / INR 2023-02-21 10:30:00 [facility] HEPATIC FUNCTION PANEL ([id number]) (ALB,T.PRO,BILI T,BU/BC,ALT,AST,ALK PHOS) 2023-02-21 10:30:00 Elfego Saenz [facility] BASIC METABOLIC PANEL (NA, K, CL, CO2, GLUCOSE, BUN, CREATININE, CA) 2023-02-21 10:30:00 Elfego Saenz [facility] CBC WITH DIFF 2023-02-21 10:30:00 Elfego Saenz [facility] PROTHROMBIN TIME / INR 2023-02-21 10:30:00 [facility] XR KUB 2023-02-20 23:05:00 Justa Roche [facility] XR KUB 2023-02-20 23:05:00 Justa Roche [facility] XR KUB 2023-02-20 22:55:00 Sincere Arellano [facility] XR KUB 2023-02-20 22:55:00 Sincere Arellano [facility] XR CHEST 1 VW 2023-02-20 22:49:00 Sincere Arellano [facility] XR CHEST 1 VW 2023-02-20 22:49:00 Sincere Arellano [facility] CT HEAD WO CONTRAST 2023-02-20 20:54:12 Sincere Arellano [facility] CT HEAD WO CONTRAST 2023-02-20 20:54:12 Sincere Arellano U [facility] AC PANEL 20 + LACTIC ACID 2023-02-20 19:54:00 Gus [facility] AC PANEL 20 + LACTIC ACID 2023-02-20 19:54:00 Gus Arellano [facility] AMMONIA, PLASMA 2023-02-20 18:47:00 Sincere [facility] AMMONIA, PLASMA 2023-02-20 18:47:00 Sincere Arellano [facility] BASIC METABOLIC PANEL (NA, K, CL, CO2, GLUCOSE, BUN, CREATININE, CA) 2023-02-20 18:46:00 Sincere Arellano [facility] HIV 1/2 AG-AB WITH REFLEX 2023-02-20 18:46:00 Elfego Saenz [facility] BASIC METABOLIC PANEL (NA, K, CL, CO2, GLUCOSE, BUN, CREATININE, CA) 2023-02-20 18:46:00 Sincere Arellano [facility] HIV 1/2 AG-AB WITH REFLEX 2023-02-20 18:46:00 Elfego Saenz [facility] POCT GLUCOSE (AUTOMATED) 2023-02-20 16:12:00 Ying Vila [facility] POCT GLUCOSE (AUTOMATED) 2023-02-20 16:12:00 Ying Vila [facility] PHOSPHORUS 2023-02-20 09:25:00 Sincere Arellano [facility] MAGNESIUM 2023-02-20 09:25:00 Sincere Arellano [facility] BASIC METABOLIC PANEL (NA, K, CL, CO2, GLUCOSE, BUN, CREATININE, CA) 2023-02-20 09:25:00 Adan Sincere [facility] CBC WITH DIFF 2023-02-20 09:25:00 Sincere Arellano [facility] PROTHROMBIN TIME / INR 2023-02-20 09:25:00 [facility] PHOSPHORUS 2023-02-20 09:25:00 Sincere Arellano [facility] MAGNESIUM 2023-02-20 09:25:00 Sincere Arellano [facility] BASIC METABOLIC PANEL (NA, K, CL, CO2, GLUCOSE, BUN, CREATININE, CA) 2023-02-20 09:25:00 Adan Sincere [facility] CBC WITH DIFF 2023-02-20 09:25:00 Sincere Arellano [facility] PROTHROMBIN TIME / INR 2023-02-20 09:25:00 [facility] ABDOMEN PELVIS WO CONTRAST 2023-02-20 07:07:32 Elfego Saenz [facility] CT ABDOMEN PELVIS WO CONTRAST 2023-02-20 07:07:32 Elfego Saenz [facility] XR CHEST 1 VW 2023-02-19 22:17:00 Yusuf Green [facility] XR CHEST 1 VW 2023-02-19 22:17:00 Yusuf Green [facility] AMMONIA, PLASMA 2023-02-19 13:30:00 Sincere Arellano [facility] AMMONIA, PLASMA 2023-02-19 13:30:00 Sincere Arellano [facility] COMP. METABOLIC PANEL ([id number]) 2023-02-19 12:47:00 Sincere Arellano [facility] OSMOLALITY, SERUM OR PLASMA 2023-02-19 12:47:00 Faustina Bourgeois [facility] HEPATIC FUNCTION PANEL ([id number]) (ALB,T.PRO,BILI T,BU/BC,ALT,AST,ALK PHOS) 2023-02-19 12:47:00 Elfego Saenz [facility] OSMOLALITY, SERUM OR PLASMA 2023-02-19 12:47:00 Faustina Bourgeois [facility] HEPATIC FUNCTION PANEL ([id number]) (ALB,T.PRO,BILI T,BU/BC,ALT,AST,ALK PHOS) 2023-02-19 12:47:00 Elfego Saenz [facility] COMP. METABOLIC PANEL ([id number]) 2023-02-19 12:47:00 Sincere Arellano [facility] BLOOD CULTURE SCREEN 2023-02-19 09:50:00 Wayne Saenz [facility] BLOOD CULTURE SCREEN 2023-02-19 09:50:00 Wayne Saenz [facility] BLOOD CULTURE SCREEN 2023-02-19 09:49:00 Wayne Saenz [facility] BLOOD CULTURE SCREEN 2023-02-19 09:49:00 Wayne Saenz [facility] URINE CULTURE 2023-02-19 09:17:00 Elfego Saenz Un [facility] URINE CULTURE 2023-02-19 09:17:00 [facility]fego [facility]enz [facility] RETROPERITONEAL LIMITED 2023-02-19 07:46:55 Abdias Cook [facility] US RETROPERITONEAL LIMITED 2023-02-19 07:46:55 Abdias Cook [facility] SODIUM, URINE RANDOM 2023-02-19 07:21:00 [facility] POT[facility], [facility]INE RANDOM 2023-02-19 07:21:00 [facility] CREATININE, URINE RANDOM 2023-02-19 07:21:00 Abdias Rothman [facility] URINALYSIS 2023-02-19 07:21:00 Elfego Saenz [facility] URINALYSIS 2023-02-19 07:21:00 Elfego Saenz [facility] CREATININE, URINE RANDOM 2023-02-19 07:21:00 Abdias Rothman [facility] POTASSIUM, URINE RANDOM 2023-02-19 07:21:00 Abdias Arora [facility] SODIUM, URINE RANDOM 2023-02-19 07:21:00 Abdias Rice [facility] HEPATITIS B SURFACE ANTIBODY 2023-02-19 07:11:00 [facility] VIRUS (HCV) BY QUANTITATIVE NAAT 2023-02-19 07:11:00 Maycol [facility] HCV ANTIBODY 2023-02-19 07:11:00 Rhoda Severino [facility] ETHANOL 2023-02-19 07:11:00 Elfego Saenz [facility] MAGNESIUM 2023-02-19 07:11:00 Rhoda Severino [facility] PHOSPHORUS 2023-02-19 07:11:00 Maycol [facility] HEPATITIS B SURFACE ANTIGEN 2023-02-19 07:11:00 Sincere Arellano [facility] HBC ANTIBODY (IGM & IGG) 2023-02-19 07:11:00 Kortney Arellano and [facility] SYPHILIS IGG/IGM 2023-02-19 07:11:00 Elfego Saenz [facility] PHOSPHORUS 2023-02-19 07:11:00 Rhoda Severino [facility] MAGNESIUM 2023-02-19 07:11:00 [facility] ETHANOL 2023-02-19 07:11:00 Elfego Saenz [facility] HEPATITIS B SURFACE ANTIBODY 2023-02-19 07:11:00 [facility] HEPATITIS B SURFACE ANTIGEN 2023-02-19 07:11:00 Sincere Arellano [facility] HCV ANTIBODY 2023-02-19 07:11:00 Maycol [facility] HBC ANTIBODY (IGM & IGG) 2023-02-19 07:11:00 Kilo Arellano [facility] HEPATITIS C VIRUS (HCV) BY QUANTITATIVE NAAT 2023-02-19 07:11:00 [facility] SYPHILIS IGG/IGM 2023-02-19 07:11:00 [facility]ST 1 VW 2023-02-19 06:36:00 Adriana Severinoesha [facility] XR CHEST 1 VW 2023-02-19 06:36:00 Adriana Severinoesha [facility] PROTHROMBIN TIME / INR 2023-02-19 05:51:00 Ira quan [facility] PROTHROMBIN TIME / INR 2023-02-19 05:51:00 Quin Velazquezgus [facility] AC PANEL 21 + LACTIC ACID 2023-02-19 05:24:00 Adriana Severino [facility] AC PANEL 21 + LACTIC ACID 2023-02-19 05:24:00 Adriana Severino [facility] MRSA / MSSA SCREEN BY PAULA GUSMAN 2023-02-19 05:20:00 [facility] COMP. METABOLIC PANEL ([id number]) 2023-02-19 05:20:00 Abdias Cook [facility] HEPATIC FUNCTION PANEL ([id number]) (ALB,T.PRO,BILI T,BU/BC,ALT,AST,ALK PHOS) 2023-02-19 05:20:00 Abdias Cook [facility] CBC WITH DIFF 2023-02-19 05:20:00 Heydi Cook [facility] HEPATITIS B CORE ANTIBODY IGM 2023-02-19 05:20:00 [facility] HEPAT[facility]IS B SURFACE ANTIGEN 2023-02-19 05:20:00 [facility] HEPATITIS A VIRUS ANTIBODY IGM 2023-02-19 05:20:00 [facility] HEPATIC FUNCTION PANEL ([id number]) (ALB,T.PRO,BILI T,BU/BC,ALT,AST,ALK PHOS) 2023-02-19 05:20:00 Abdias Cook [facility] COMP. METABOLIC PANEL ([id number]) 2023-02-19 05:20:00 Abdias Cook [facility] CBC WITH DIFF 2023-02-19 05:20:00 Heydi Cook [facility] HEPATITIS B SURFACE ANTIGEN 2023-02-19 05:20:00 [facility] HEPAT[facility]IS A VIRUS ANTIBODY IGM 2023-02-19 05:20:00 Maycol [facility] HEPATITIS B CORE ANTIBODY IGM 2023-02-19 05:20:00 [facility] MRSA / MSSA SCREEN BY PCRPAULA 2023-02-19 05:20:00 Abdias Cook [facility] DISCLOSURE AND CONSENT, MEDICAL AND SURGICAL PROCEDURES 2023-02-19 05:01:00 Doctor Unassigned, Krum [facility] NO SHOW OR MISSED APPOINTMENT POLICY ACKNOWLEDGEMENT 2022-11-18 21:24:55 Doctor Unassigned, [facility] PATIENT FINANCIAL POLICY 2022-11-18 21:24:37 Doctor Unassigned, Krum [facility] NOTICE OF PRIVACY PRACTICES 2022-11-18 21:24:20 Doctor Unassigned, [facility]rum [facility] CONSENT/REFUSAL FOR DIAGNOSIS AND TREATMENT 2022-11-18 21:24:05 Doctor Unassigned, [facility]rum [facility] ASSIGNMENT OF BENEFITS 2022-11-18 21:23:50 Docto r Unassigned, Krum [facility] Encounters Start Date/Time End Date/Time Encounter Type Admission Type Attending [facility] Care Facility Care Department Encounter ID Source 2023-11-04 20:49:00 2023-11-05 01:51:00 Emergency X ANDREW MONTANEZ WAELVIRA [facility] ERT [id number] [facility] 2023-11-04 20:49:00 2023-11-05 01:51:00 Emergency Andrew Montanez [facility] [id number] [facility] 2023-09-28 13:00:00 2023-09-28 13:00:00 Outpatient R BRENDEN HICKEY KHALED [facility] [id number] [facility] 2023-09-22 00:00:00 2023-09-22 15:52:01 Telephone Brenden Hickey [facility] [id number] 350.1.13.10 [id number] [id number] [facility] 2023-08-31 00:00:00 2023-08-31 10:42:14 Telephone Jose [facility] [id number] 350.1.13.10 [id number] [id number] [facility] 2023-08-30 07:35:05 2023-08-30 23:59:00 Hospital Encounter Jose [facility] 1.2.840.114 350.1.13.10 4.2.7.2.686 [id number] [facility] 2023-08-30 07:34:50 2023-08-30 07:34:50 Hospital Encounter Jose, [facility] 1.2.840.114 350.1.13.10 4.2.7.2.686 [id number] [facility] 2023-08-30 07:34:43 2023-08-30 07:34:43 Hospital Encounter Jose, [facility] 1.2.840.114 350.1.13.10 4.2.7.2.686 [id number] [facility] 2023-08-30 07:34:36 2023-08-30 07:34:36 [facility].114 350.1.13.10 4.2.7.2.686 [id number] [facility] 2023-08-30 07:34:05 2023-08-30 07:34:05 Outpatient R JOSE [facility] [id number] [facility] 2023-08-30 07:34:05 2023-08-30 07:34:05 [facility] 1.2.840.114 350.1.13.10 4.2.7.2.686 [id number] [facility] 2023-07-21 08:00:00 2023-07-21 08:00:00 Outpatient R JOSE [facility] [id number] [facility] 2023-07-13 15:40:00 2023-07-13 15:55:21 [facility] [id number] [facility] 2023-07-13 15:40:00 2023-07-13 15:55:21 Office Visit Jose Qiangjun [facility] 1.2.840.114 350.1.13.10 4.2.7.2.686 [id number] [facility] 2023-06-21 00:00:00 2023-06-21 00:00:00 Orders Only Doctor Unassigned, Krum [facility] 1.2.840.114 350.1.13.10 4.2.7.2.686 [id number] [facility] 2023-06-03 00:00:00 2023-06-03 00:00:00 Orders Only Doctor Unassigned, Krum [facility] 1.2.840.114 350.1.13.10 4.2.7.2.686 [id number] [facility] 2023-03-16 00:00:00 2023-03-16 00:00:00 Orders Only Doctor Unassigned, Krum [facility] 1.2.840.114 350.1.13.10 4.2.7.2.686 [id number] [facility] 2023-03-11 00:00:00 2023-03-11 00:00:00 Transition of Care Cielo Joy [facility] 1.2.840.114 350.1.13.10 4.2.7.2.686 [id number] [facility] 2023-02-18 23:56:00 2023-03-10 14:51:00 Inpatient U ARPIT RUST [facility] [id number] [facility] 2023-02-18 23:56:00 2023-03-10 14:51:00 Hospital Encounter Zion Vila, Tony Ballard, Alan Turner, Arpit Choi [facility] 1.2840.114 350.1.13.10 4.2.7.2.686 [id number] [facility] 2023-03-03 00:00:00 2023-03-03 00:00:00 Travel 1.2.840.1 86617.1.1 3.104.2.7 .3.174581 .8 1.2.840.114 350.1.13.10 4.2.7.3.698 [id number] [facility] 2023-02-21 16:17:36 2023-02-21 16:17:36 Anesthesia Event Ute Spencer 1.2.840.1 22428.1.1 3.104.2.7 .3.467444 .8 [id number] [facility] 2023-02-21 00:00:00 2023-02-21 00:00:00 Case Management Zeynep Orozco 1.2.840.1 25379.1.1 3.104.2.7 .[id number] .8 [id number] [facility] 2022-11-18 16:27:08 2022-11-18 23:59:00 Outpatient R RADIOLOGY [facility] [id number] [facility] 2022-11-18 16:27:08 2022-11-18 23:59:00 Hospital Encounter Radiology [facility] 1.2.840.114 350.1.13.10 4.2.7.2.686 [id number] [facility] 2022-10-08 05:00:00 2022-10-08 05:00:00 Outpatient ABBI ALICIA [facility] [id number] [facility] Results Test Description Test Time Test Comments [...] No significant central canal stenosis is appreciated. [facility] CT MAXILLOFACIAL/M ANDIBLE WO CONTRAST 05:31:39 ORDERING [...] upper cervical spineis also within normal limits. [facility] CT TRAUMA THORAX W CONTRAST 05:23:19 EXAM: [...] at L4-5. No other high-grade foraminal stenosis. [facility] CT TRAUMA THORACIC SPINE WO CONTRAST 05:23:19 [...] at L4-5. No other high-grade foraminal stenosis. [facility] CT TRAUMA ABDOMEN PELVIS W CONTRAST 05:23:19 [...] at L4-5. No other high-grade foraminal stenosis. [facility] CT TRAUMA LUMBAR SPINE WO CONTRAST 05:23:19 [...] at L4-5. No other high-grade foraminal stenosis. [facility] XR KNEE 3 VW RIGHT 03:27:54 Ordering Physician: FRIDA POLK HISTORY: Right knee pain COMPARISON: none FINDINGS:Three views of the right knee. ?There is no fracture or dislocation. ?Thereis no joint effusion. The joint spaces are normal. ?Soft tissue edema isseen. ?Atherosclerotic calcifications also seen in the arteries. No pubicbone bodies are seen in the soft tissues. [facility] [id number] 06:01:28* Test Item Value Reference Range Interpretation Comme nts Blood Culture-Aerobic (test code = 06286-4) No organisms isolated No growth Previous preliminary verified result was Culture In Progress on 03/05/2023 at 0301 CSTPrevious preliminary verified result was No growth at 24 hours on 03/06/2023 at 0001 CSTPrevious preliminary verified result was No growth at 48 hours on 03/07/2023 at 0001 CSTPrevious preliminary verified result was No growth at 72 hours on 03/08/2023 at 0001 [employer] TE[employer] Blood Culture-Anaerobic (test code = 78500-9) No organisms isolated No growth Previous preliminary verified result was Culture In Progress on 03/05/2023 at 0301 CSTPrevious preliminary verified result was No growth at 24 hours on 03/06/2023 at 0001 CSTPrevious preliminary verified result was No growth at 48 hours on 03/07/2023 at 0001 CSTPrevious preliminary verified result was No growth at 72 hours on 03/08/2023 at 0001 [employer] TE[employer] Lab Interpretation (test code = 84998-8) Normal [facility] [id number] 06:01:28* Test Item Value Reference Range Interpretation Comme nts Blood Culture-Aerobic (test code = 39245-0) No organisms isolated No growth Previous preliminary verified result was Culture In Progress on 03/05/2023 at 0301 CSTPrevious preliminary verified result was No growth at 24 hours on 03/06/2023 at 0001 CSTPrevious preliminary verified result was No growth at 48 hours on 03/07/2023 at 0001 CSTPrevious preliminary verified result was No growth at 72 hours on 03/08/2023 at 0001 [employer] TE[employer] Blood Culture-Anaerobic (test code = 76485-0) No organisms isolated No growth Previous preliminary verified result was Culture In Progress on 03/05/2023 at 0301 CSTPrevious preliminary verified result was No growth at 24 hours on 03/06/2023 at 0001 CSTPrevious preliminary verified result was No growth at 48 hours on 03/07/2023 at 0001 CSTPrevious preliminary verified result was No growth at 72 hours on 03/08/2023 at 0001 [employer]OR TE[employer] Lab Interpretation (test code = 36474-3) Normal [facility] (NA, K, CL, CO2, GLUCOSE, BUN, CREATININE, CA)2023-03-04 20:17:39* Test Item Value Reference Range Interpretation Comme nts NA (test code = 5546382065) 138 mmol/L 135-145 K (test code = 8563692923) 3.7 mmol/L 3.5-5.0 CL (test code = 8218521764) 102 mmol/L 98-108 CO2 TOTAL (test code = 2035731505) 24 mmol/L 23-31 AGAP (test code = 4242473054) 12 2-16 BUN (test code = 6578232220) 32 mg/dL 7-23 H GLUCOSE (test code = 0669568349) 98 mg/dL 70-110 CREATININE (test code = 6552550631) 4.86 mg/dL 0.60-1.25 H CALCIUM (test code = 6112368809) 9.8 mg/dL 8.6-10.6 eGFR (test code = 87016-0) 13.2 mL/min/1.73m2 CKD-EPI eGFR (2020). Assuming creatinine has been stable day-to-day for at least three months, the eGFR indicates Category G5 (<= 14mL/min/1.73 m2) Lab Interpretation (test code = 25121-8) [facility]normal [facility] Screen - ONCE [id number] 19:37:00* Test Item Value Reference Range Interpretation Comme nts ABO & RH (test code = 20) O POSITIVE IAT (test code = 1185) Negative [facility] HospitalTrop[facility] [id number] 19:23:11* Test Item Value Reference Range Interpretation Comme nts TROPONIN I (test code = 4623043309) 0.009 ng/mL <=0.034 BOBBY (test code = [...] of biotin. Lab Interpretation (test code = 60926-6) Normal [facility] HospitalProthrombin Time / [id number] 19:05:07* Test Item Value Reference Range Interpretation Comme [facility] PROTIME PATIENT (test code = 5964-2) 13.9 See_Comment H [Automated getbetter!] The system which generated this result transmitted reference range: 10.1 - 12.6 Seconds. The reference range was not used to interpret this result as normal/abnormal. INR (test code = 6301-6) 1.2 Normal INR <1.1; Warfarin Therapeutic range 2.0 to 3.0 or 2.5 to 3.5, depending upon the indications. Lab Interpretation (test code = 63079-7) Abnormal [facility] HospitalaPTT2023-11-10 19:05:07* Test Item Value Reference Range Interpretation Comme [facility] APTT Patient (test code = 3173-2) 36 See_Comment [Automated [employer]] The system which generated this result transmitted reference range: 26 - 36 Seconds. The reference range was not used to interpret this result as normal/abnormal. Lab Interpretation (test code = 11725-0) Normal [facility]Profile / [id number] 18:56:44* Test Item Value Reference Range Interpretation [...] result as normal/abnormal. MPV (test code = 22896-1) 9.3 fL 9.8-13.0 L RDW-CV (test code = 788-0) 22.1 % 12.1-15.4 H RDW-SD (test code = 11482-2) 73.0 fL 38.5-51.6 H NRBC x10^3 (test code = 2913849453) See_Comment [Automated messa ge] The system which generated this result transmitted reference range: 10*3/?L. The reference range was not used to interpret this result as normal/abnormal. NRBC/100 WBC (test code = 8220590658) 0.0 See_Comment [Automated messa ge] The system which generated this result transmitted reference range: 0.0 - 10.0 /100 WBCs. The reference range was not used to interpret this result as normal/abnormal. IPF % (test code = 6540438962) Lab Interpretation (test code = 50799-2) [facility]normal [facility] GLU[facility]SE (AUTOMATED)2023-03-04 18:44:21* Test Item Value Reference Range Interpretation Comme nts POCT GLU (test code = 8435051930) 101 mg/dL 70-110 Lab Interpretation (test cod e = 75844-0) Normal [facility] [id number] 01:01:26* Test Item Value Reference Range Interpretation Comme nts Blood Culture-Aerobic (test code = 89070-7) No organisms isolated No growth Previous preliminary verified result was Culture In Progress on 02/25/2023 at 2301 CDTPrevious preliminary verified result was No growth at 24 hours on 02/26/2023 at 2000 CDTPrevious preliminary verified result was No growth at 48 hours on 02/27/2023 at 1901 CSTPrevious preliminary verified result was No growth at 72 hours on 02/28/2023 at 1901 [employer] TE[employer] Blood Culture-Anaerobic (test code = 06899-3) No organisms isolated No growth Previous preliminary verified result was Culture In Progress on 02/25/2023 at 2301 CDTPrevious preliminary verified result was No growth at 24 hours on 02/26/2023 at 2000 CDTPrevious preliminary verified result was No growth at 48 hours on 02/27/2023 at 1901 CSTPrevious preliminary verified result was No growth at 72 hours on 02/28/2023 at 1901 MOTOR TESTER Lab Interpretation (test code = 98915-6) [facility] CULTURE [id number] 01:01:26* Test Item Value Reference Range Interpretation Comme nts Blood Culture-Aerobic (test code = 85825-0) No organisms isolated No growth Previous preliminary verified result was Culture In Progress on 02/25/2023 at 2301 CDTPrevious preliminary verified result was No growth at 24 hours on 02/26/2023 at 2000 CDTPrevious preliminary verified result was No growth at 48 hours on 02/27/2023 at 1901 CSTPrevious preliminary verified result was No growth at 72 hours on 02/28/2023 at 1901 [employer] TE[employer] Blood Culture-Anaerobic (test code = 80270-4) No organisms isolated No growth Previous preliminary verified result was Culture In Progress on 02/25/2023 at 2301 CDTPrevious preliminary verified result was No growth at 24 hours on 02/26/2023 at 2000 CDTPrevious preliminary verified result was No growth at 48 hours on 02/27/2023 at 1901 CSTPrevious preliminary verified result was No growth at 72 hours on 02/28/2023 at 1901 MOTOR TESTER Lab Interpretation (test code = 72631-8) [facility] CULTURE [id number] 01:01:26* Test Item Value Reference Range Interpretation Comme [facility] Blood Culture-Aerobic (test code = 27191-2) No organisms isolated No growth Previous preliminary verified result was Culture In Progress on 02/25/2023 at 2301 CDTPrevious preliminary verified result was No growth at 24 hours on 02/26/2023 at 2000 CDTPrevious preliminary verified result was No growth at 48 hours on 02/27/2023 at 1901 CSTPrevious preliminary verified result was No growth at 72 hours on 02/28/2023 at 1901 [employer] TE[employer] Blood Culture-Anaerobic (test code = 04942-4) No organisms isolated No growth Previous preliminary verified result was Culture In Progress on 02/25/2023 at 2301 CDTPrevious preliminary verified result was No growth at 24 hours on 02/26/2023 at 2000 CDTPrevious preliminary verified result was No growth at 48 hours on 02/27/2023 at 1901 CSTPrevious preliminary verified result was No growth at 72 hours on 02/28/2023 at 1901 MOTOR TESTER Lab Interpretation (test code = 03874-3) Normal [facility] HospitalPROTHROMBIN TIME / [id number] 19:51:25* Test Item Value Reference Range Interpretation Comme [facility] PROTIME PATIENT (test code = 5964-2) 14.5 See_Comment H [[employer]] The system which generated this result transmitted reference range: 10.1 - 12.6 Seconds. The reference range was not used to interpret this result as normal/abnormal. INR (test code = 6301-6) 1.3 Normal INR <1.1; Warfarin Therapeutic range 2.0 to 3.0 or 2.5 to 3.5, depending upon the indications. Lab Interpretation (test code = 11680-0) [facility]normal [facility]PROTHROMBIN TIME / [id number] 19:51:25* Test Item Value Reference Range Interpretation Comme nts PROTIME PATIENT (test code = 5964-2) 14.5 See_Comment H [[employer]] The system which generated this result transmitted reference range: 10.1 - 12.6 Seconds. The reference range was not used to interpret this result as normal/abnormal. INR (test code = 6301-6) 1.3 Normal INR <1.1; Warfarin Therapeutic range 2.0 to 3.0 or 2.5 to 3.5, depending upon the indications. Lab Interpretation (test code = 89489-3) Abnormal [facility] WITHOUT [id number] 23:28:46* Test Item Value Reference Range Interpretation [...] result as normal/abnormal. MPV (test code = 22452-7) 11.0 fL 9.8-13.0 RDW-CV (test code = 788-0) 21.8 % 12.1-15.4 H RDW-SD (test code = 65600-6) 66.4 fL 38.5-51.6 H NRBC x10^3 (test code = 4559767400) See_Comment [Automated messa ge] The system which generated this result transmitted reference range: 10*3/?L. The reference range was not used to interpret this result as normal/abnormal. NRBC/100 WBC (test code = 0500577889) 0.0 See_Comment [Automated messa ge] The system which generated this result transmitted reference range: 0.0 - 10.0 /100 WBCs. The reference range was not used to interpret this result as normal/abnormal. IPF % (test code = 9251352924) Lab Interpretation (test code = 35904-4) Abnormal [facility] WITHOUT [id number] 23:28:46* Test Item Value Reference Range Interpretation [...] result as normal/abnormal. MPV (test code = 98220-0) 11.0 fL 9.8-13.0 RDW-CV (test code = 788-0) 21.8 % 12.1-15.4 H RDW-SD (test code = 85112-2) 66.4 fL 38.5-51.6 H NRBC x10^3 (test code = 8352138534) See_Comment [Automated messa ge] The system which generated this result transmitted reference range: 10*3/?L. The reference range was not used to interpret this result as normal/abnormal. NRBC/100 WBC (test code = 0069097507) 0.0 See_Comment [Automated messa ge] The system which generated this result transmitted reference range: 0.0 - 10.0 /100 WBCs. The reference range was not used to interpret this result as normal/abnormal. IPF % (test code = 7582204831) Lab Interpretation (test code = 72898-8) Abnormal [facility] Packed RBC (in units), 1 Units 2023-03-01 14:31:00* Test Item Value Reference Range Interpretation Comme nts Cross Match Result (test code = 4409) Compatible ISBT Blood Type Code (test code = 031689) 5100 Unit Blood Type (test code = 4410) O Pos Unit Number (test code = 4411) [id number] Blood Expiration Date & Time (test code = 722228) 527605004669 Status Information (test code = 4412) Issued Product Identification (test code = 4413) Red Blood Cells Product Code (test code = 4414) [id number] Performed at [facility] Laboratory [facility] Blood [address] Free: [phone] No. [id number] [facility] Packed RBC (in units), 1 Units 2023-03-01 14:31:00* Test Item Value Reference Range Interpretation Comme nts Cross Match Result (test code = 4409) Compatible ISBT Blood Type Code (test code = 372588) 5100 Unit Blood Type (test code = 4410) O Pos Unit Number (test code = 4411) [id number] Blood Expiration Date & Time (test code = 206711) 723545959381 Status Information (test code = 4412) Issued Product Identification (test code = 4413) Red Blood Cells Product Code (test code = 4414) [id number] Performed at [facility] Blood [address] Free: [phone] No. [id number] [facility] [id number] 12:12:59* Test Item Value Reference Range Interpretation Comme nts SPUTUM CULTURE (test code = 622-1) Specimen cellular elements do not represent lower respiratory tract. Specimen rejected for routine bacterial culture. Suggest reorder and recollection. Gram stain (test code = 664-3) Numerous Epithelial cells [facility] [id number] 12:12:59* Test Item Value Reference Range Interpretation Comme [facility] SPUTUM CULTURE (test code = 622-1) Specimen cellular elements do not represent lower respiratory tract. Specimen rejected for routine bacterial culture. Suggest reorder and recollection. Gram stain (test code = 664-3) Numerous Epithelial cells [facility] Packed RBC (in units), 1 Units 2023-02-27 21:19:05* Test Item Value Reference Range Interpretation Comme [facility] Cross Match Result (test code = 4409) Compatible ISBT Blood Type Code (test code = 183179) 5100 Unit Blood Type (test code = 4410) O Pos Unit Number (test code = 4411) [id number] Blood Expiration Date & Time (test code = 810886) 739227250765 Status Information (test code = 4412) Issued Product Identification (test code = 4413) Red Blood Cells Product Code (test code = 4414) [id number] Performed at [facility] Laboratory Services [facility] Blood [address] [address] Free: [phone] No. [id number] [facility] 20 + Lactic [id number] 04:29:10* Test Item Value Reference Range Interpretation Comme nts PH (test code = 2) 7.41 7.35-7.45 PCO2 (test code = 7051828163) 33 See_Comment L [Automated messa ge] The system which generated this result transmitted reference range: 35 - 45 mmHg. The reference range was not used to interpret this result as normal/abnormal. PO2 (test code = 5448836887) 77 See_Comment L [Automated messa ge] The system which generated this result transmitted reference range: 80 - 100 mmHg. The reference range was not used to interpret this result as normal/abnormal. HCO3 (test code = 3237527907) 20 See_Comment L [Automated messa ge] The system which generated this result transmitted reference range: 22 - 26 mEq/L. The reference range was not used to interpret this result as normal/abnormal. BE (test code = 0073834864) -3.2 See_Comment L [Automated messa ge] The system which generated this result transmitted reference range: -3.0 - 3.0 mEq/L. The reference range was not used to interpret this result as normal/abnormal. THB (test code = 6761130362) 12.6 g/dL 13.5-18.0 L %O2HB (test code = 9750717817) 93.5 % 94.0-99.0 L %COHB ART (test code = 0124956273) 0.8 % 0.0-1.5 %METHB ART (test code = 2743605642) 0.4 % 0.4-1.5 VOL%O2 ART (test code = 1529667085) 16.6 % 15.0-23.0 NA (test code = 8851701939) 136 mmol/L 135-145 K+ (test code = 5371515057) 3.8 mmol/L 3.5-5.0 AC CA IONZ (test code = 9778219376) 4.50 mg/dL 4.50-5.30 GLUCOSE (test code = 5358988988) 110 mg/dL 70-110 LACTIC ACID (test code = 1162616022) 1.84 mmol/L 0.50-2.20 Lab Interpretation (test code = 91037-6) [facility]normal [facility] 20 + Lactic [id number] 04:29:10* Test Item Value Reference Range Interpretation Comme nts PH (test code = 2) 7.41 7.35-7.45 PCO2 (test code = 5439843086) 33 See_Comment L [Automated messa ge] The system which generated this result transmitted reference range: 35 - 45 mmHg. The reference range was not used to interpret this result as normal/abnormal. PO2 (test code = 0002505329) 77 See_Comment L [Automated messa ge] The system which generated this result transmitted reference range: 80 - 100 mmHg. The reference range was not used to interpret this result as normal/abnormal. HCO3 (test code = 2761187397) 20 See_Comment L [Automated messa ge] The system which generated this result transmitted reference range: 22 - 26 mEq/L. The reference range was not used to interpret this result as normal/abnormal. BE (test code = 7399316945) -3.2 See_Comment L [Automated messa ge] The system which generated this result transmitted reference range: -3.0 - 3.0 mEq/L. The reference range was not used to interpret this result as normal/abnormal. THB (test code = 5912068131) 12.6 g/dL 13.5-18.0 L %O2HB (test code = 5259927717) 93.5 % 94.0-99.0 L %COHB ART (test code = 7221276199) 0.8 % 0.0-1.5 %METHB ART (test code = 4517258597) 0.4 % 0.4-1.5 VOL%O2 ART (test code = 8940968238) 16.6 % 15.0-23.0 NA (test code = 6655972445) 136 mmol/L 135-145 K+ (test code = 8776484754) 3.8 mmol/L 3.5-5.0 AC CA IONZ (test code = 1115547469) 4.50 mg/dL 4.50-5.30 GLUCOSE (test code = 8242788398) 110 mg/dL 70-110 LACTIC ACID (test code = 1575987880) 1.84 mmol/L 0.50-2.20 Lab Interpretation (test code = 93860-3) Abnormal [facility] WITH [id number] 12:03:47* Test Item Value Reference Range Interpretation [...] 32.5 g/dL 31.2-35.0 RDW-SD (test code = 41951-7) 66.4 fL 38.5-51.6 H RDW-CV (test code = 788-0) 19.5 % 12.1-15.4 H PLT (test code = 777-3) 37 See_Comment LL [Automated [employer] Solutions[employer] ge] The system which generated this result transmitted reference range: 150 - 328 10*3/?L. The reference range was not used to interpret this result as normal/abnormal. MPV (test code = 62160-6) Not Measured IPF % (test code = 9501072120) 13.6 % 1.2-10.7 H Platelet count measured by fluorescence method. NRBC/100 WBC (test code = 7297748602) 0.1 See_Comment [Automated [employer]] The system which generated this result transmitted reference range: 0.0 - 10.0 /100 WBCs. The reference range was not used to interpret this result as normal/abnormal. NRBC x10^3 (test code = 4108302457) 0.02 See_Comment [[employer]] The system which generated this result transmitted reference range: 10*3/?L. The reference range was not used to interpret this result as normal/abnormal. GRAN MAT (NEUT) % (test code = 770-8) 64.8 % IMM GRAN % (test code = 7990192524) 1.70 % LYMPH % (test code = 736-9) 13.8 % MONO % (test code = 5905-5) 13.1 % EOS % (test code = 713-8) 6.4 % BASO % (test code = 706-2) 0.2 % GRAN MAT x10^3(ANC) (test code = 6873881737) 10.52 10*3/uL 1.99-6.95 H IMM GRAN x10^3 (test code = 3607877528) 0.27 10*3/uL 0.00-0.06 H LYMPH x10^3 (test code = 731-0) 2.24 10*3/uL 1.09-3.23 MONO x10^3 (test code = 742-7) 2.12 10*3/uL 0.36-1.02 H EOS x10^3 (test code = 711-2) 1.04 10*3/uL 0.06-0.53 H BASO x10^3 (test code = 704-7) 0.04 10*3/uL 0.01-0.09 Lab Interpretation (test code = 36803-5) [facility]normal [facility]20[facility] 11:57:16* Test Item Value Reference Range Interpretation Comme nts MAGNESIUM (test code = [id number]) 2.6 mg/dL 1.7-2.4 H Lab Interpretation (test cod e = 75009-6) [facility] 11:57:15* Test Item Value Reference Range Interpretation Comme nts NA (test code = 7458796636) 138 mmol/L 135-145 K (test code = 9897386149) 3.6 mmol/L 3.5-5.0 CL (test code = 0696626716) 104 mmol/L 98-108 CO2 TOTAL (test code = 5222392177) 24 mmol/L 23-31 AGAP (test code = 3481765981) 10 2-16 BUN (test code = 7765945881) 13 mg/dL 7-23 GLUCOSE (test code = 6947521120) 111 mg/dL 70-110 H CREATININE (test code = 0545119186) 2.58 mg/dL 0.60-1.25 H TOTAL BILI (test code = 5855817528) 2.7 mg/dL 0.1-1.1 H CALCIUM (test code = 5219496645) 8.4 mg/dL 8.6-10.6 L T PROTEIN (test code = 3636385815) 6.8 g/dL 6.3-8.2 ALBUMIN (test code = 8628575676) 4.1 g/dL 3.5-5.0 ALK PHOS (test code = 6088644341) 193 U/L 34-122 H ALTv (test code = 1742-6) 39 U/L 5-50 AST(SGOT) (test code = 2280171335) 206 U/L 13-40 H eGFR (test code = 43036-6) 28.3 mL/min/1.73m2 CKD-EPI eGFR (2020). Assuming creatinine has been stable day-to-day for at least three months, the eGFR indicates Category G4 (15 - 29 mL/min/1.73 m2) Lab Interpretation (test code = 21431-4) Abnormal [facility] WITHOUT [id number] 00:14:22* Test Item Value Reference Range Interpretation [...] result as normal/abnormal. MPV (test code = 51381-4) 11.5 fL 9.8-13.0 RDW-CV (test code = 788-0) 19.5 % 12.1-15.4 H RDW-SD (test code = 70458-0) 66.5 fL 38.5-51.6 H NRBC x10^3 (test code = 6784206579) See_Comment [Automated messa ge] The system which generated this result transmitted reference range: 10*3/?L. The reference range was not used to interpret this result as normal/abnormal. NRBC/100 WBC (test code = 5987994976) 0.0 See_Comment [Automated messa ge] The system which generated this result transmitted reference range: 0.0 - 10.0 /100 WBCs. The reference range was not used to interpret this result as normal/abnormal. IPF % (test code = 8587459824) 12.8 % 1.2-10.7 H Platelet count measured by fluorescence method. Lab Interpretation (test code = 38023-8) Abnormal [facility] Arterial Blood Gas.2023-02-25 16:11:31* Test Item Value Reference Range Interpretation Comme nts PH (test code = 2) 7.45 7.35-7.45 PCO2 (test code = 1159851994) 34 See_Comment L [Automated messa ge] The system which generated this result transmitted reference range: 35 - 45 mmHg. The reference range was not used to interpret this result as normal/abnormal. PO2 (test code = 1937798827) 384 See_Comment H QUES [Automated message] The system which generated this result transmitted reference range: 80 - 100 mmHg. The reference range was not used to interpret this result as normal/abnormal. HCO3 (test code = 5274233710) 23 See_Comment [Automated messa ge] The system which generated this result transmitted reference range: 22 - 26 mEq/L. The reference range was not used to interpret this result as normal/abnormal. BE (test code = 1594495869) -1.1 See_Comment [Automated messa ge] The system which generated this result transmitted reference range: -3.0 - 3.0 mEq/L. The reference range was not used to interpret this result as normal/abnormal. Lab Interpretation (test code = 25460-9) Abnormal [facility] Arterial Blood Gas.2023-02-25 16:11:31* Test Item Value Reference Range Interpretation Comme nts PH (test code = 2) 7.45 7.35-7.45 PCO2 (test code = 2414070432) 34 See_Comment L [Automated messa ge] The system which generated this result transmitted reference range: 35 - 45 mmHg. The reference range was not used to interpret this result as normal/abnormal. PO2 (test code = 1550302802) 384 See_Comment H QUES [Automated message] The system which generated this result transmitted reference range: 80 - 100 mmHg. The reference range was not used to interpret this result as normal/abnormal. HCO3 (test code = 7847163367) 23 See_Comment [Automated messa ge] The system which generated this result transmitted reference range: 22 - 26 mEq/L. The reference range was not used to interpret this result as normal/abnormal. BE (test code = 6107890766) -1.1 See_Comment [Automated messa ge] The system which generated this result transmitted reference range: -3.0 - 3.0 mEq/L. The reference range was not used to interpret this result as normal/abnormal. Lab Interpretation (test code = 68532-2) Abnormal [facility] WITH [id number] 11:40:01* Test Item Value Reference Range Interpretation [...] 32.7 g/dL 31.2-35.0 RDW-SD (test code = 22312-8) 67.8 fL 38.5-51.6 H RDW-CV (test code = 788-0) 19.4 % 12.1-15.4 H PLT (test code = 777-3) 46 See_Comment LL [[employer]] The system which generated this result transmitted reference range: 150 - 328 10*3/?L. The reference range was not used to interpret this result as normal/abnormal. MPV (test code = 13127-0) 11.3 fL 9.8-13.0 IPF % (test code = 7721882433) 8.9 % 1.2-10.7 Platelet count measured by fluorescence method. NRBC/100 WBC (test code = 8651983637) 0.0 See_Comment [Automated [employer] ssage] The system which generated this result transmitted reference range: 0.0 - 10.0 /100 WBCs. The reference range was not used to interpret this result as normal/abnormal. NRBC x10^3 (test code = 3615339794) See_Comment [[employer]] The system which generated this result transmitted reference range: 10*3/?L. The reference range was not used to interpret this result as normal/abnormal. GRAN MAT (NEUT) % (test code = 770-8) 75.9 % IMM GRAN % (test code = 8141587068) 1.00 % LYMPH % (test code = 736-9) 8.4 % MONO % (test code = 5905-5) 9.3 % EOS % (test code = 713-8) 5.1 % BASO % (test code = 706-2) 0.3 % GRAN MAT x10^3(ANC) (test code = 8023952962) 11.06 10*3/uL 1.99-6.95 H IMM GRAN x10^3 (test code = 5162614629) 0.15 10*3/uL 0.00-0.06 H LYMPH x10^3 (test code = 731-0) 1.22 10*3/uL 1.09-3.23 MONO x10^3 (test code = 742-7) 1.36 10*3/uL 0.36-1.02 H EOS x10^3 (test code = 711-2) 0.74 10*3/uL 0.06-0.53 H BASO x10^3 (test code = 704-7) 0.05 10*3/uL 0.01-0.09 Lab Interpretation (test code = 64360-8) [facility] 11:03:46* Test Item Value Reference Range Interpretation Comme nts MAGNESIUM (test code = 7475755880) 2.5 mg/dL 1.7-2.4 H Lab Interpretation (test cod e = 68897-5) [facility]08896[facility]2023-[facility]-25 11:03:46* Test Item Value Reference Range Interpretation Comme nts NA (test code = 0744667001) 137 mmol/L 135-145 K (test code = 1636940246) 4.1 mmol/L 3.5-5.0 CL (test code = 7751297951) 104 mmol/L 98-108 CO2 TOTAL (test code = 8628772151) 20 mmol/L 23-31 L AGAP (test code = 1770201659) 13 2-16 BUN (test code = 8787017678) 24 mg/dL 7-23 H GLUCOSE (test code = 6453890761) 110 mg/dL 70-110 CREATININE (test code = 0097046600) 5.26 mg/dL 0.60-1.25 H TOTAL BILI (test code = 3797986581) 2.2 mg/dL 0.1-1.1 H CALCIUM (test code = 8045378787) 8.4 mg/dL 8.6-10.6 L T PROTEIN (test code = 0535168885) 6.6 g/dL 6.3-8.2 ALBUMIN (test code = 3965830254) 3.8 g/dL 3.5-5.0 ALK PHOS (test code = 5554897600) 214 U/L 34-122 H ALTv (test code = 1742-6) 45 U/L 5-50 AST(SGOT) (test code = 1506575700) 218 U/L 13-40 H eGFR (test code = 51450-5) 12.0 mL/min/1.73m2 CKD-EPI eGFR (2020). Assuming creatinine has been stable day-to-day for at least three months, the eGFR indicates Category G5 (<= 14mL/min/1.73 m2) Lab Interpretation (test code = 71814-5) [facility] 11:03:46* Test Item Value Reference Range Interpretation Comme nts PHOSPHORUS (test code = 3631993042) 2.9 mg/dL 2.5-5.0 Lab Interpretation (test cod e = 08446-3) [facility] (NA, K, CL, CO2, GLUCOSE, BUN, CREATININE, CA)2023-02-24 18:45:30* Test Item Value Reference Range Interpretation Comme nts NA (test code = 6107810559) 136 mmol/L 135-145 K (test code = 7424682756) 4.0 mmol/L 3.5-5.0 CL (test code = 6452046741) 102 mmol/L 98-108 CO2 TOTAL (test code = 2740841024) 19 mmol/L 23-31 L AGAP (test code = 7656347800) 15 2-16 BUN (test code = 9019057736) 32 mg/dL 7-23 H GLUCOSE (test code = 4179630663) 106 mg/dL 70-110 CREATININE (test code = 5692901228) 7.57 mg/dL 0.60-1.25 H CALCIUM (test code = 3575279558) 8.7 mg/dL 8.6-10.6 eGFR (test code = 68920-5) 7.8 mL/min/1.73m2 CKD-EPI eGFR (2020). Assuming creatinine has been stable day-to-day for at least three months, the eGFR indicates Category G5 (<= 14mL/min/1.73 m2) Lab Interpretation (test code = 65718-4) [facility] [id number] 11:01:20* Test Item Value Reference Range Interpretation Comme nts Blood Culture-Aerobic (test code = 36049-1) No organisms isolated No growth Previous preliminary verified result was Culture In Progress on 02/19/2023 at 0901 CDTPrevious preliminary verified result was No growth at 24 hours on 02/20/2023 at 0601 CDTPrevious preliminary verified result was No growth at 48 hours on 02/21/[address] [place], [place] [address]TPrevious preliminary verified result was No growth at 72 hours on 02/22/[address] [place] [address] Blood Culture-Anaerobic (test code = 75484-9) No organisms isolated No growth Previous preliminary verified result was Culture In Progress on 02/19/[address] [place], [place] [address]TPrevious preliminary verified result was No growth at 24 hours on 02/20/[address] [place], [place] [address]revious preliminary verified result was No growth at 48 hours on 02/21/[address] [place], [place] [address]TPrevious preliminary verified result was No growth at 72 hours on 02/22/[address] [place] [address] Lab Interpretation (test code = 18151-6) Normal [facility] WITH [id number] 10:50:27* Test Item Value Reference Range Interpretation [...] 33.5 g/dL 31.2-35.0 RDW-SD (test code = 94098-4) 66.4 fL 38.5-51.6 H RDW-CV (test code = 788-0) 19.7 % 12.1-15.4 H PLT (test code = 777-3) 42 See_Comment LL [Automated messa ge] The system which generated this result transmitted reference range: 150 - 328 10*3/?L. The reference range was not used to interpret this result as normal/abnormal. MPV (test code = 86404-3) 10.3 fL 9.8-13.0 IPF % (test code = 1273753609) 8.1 % 1.2-10.7 Platelet count measured by fluorescence method. NRBC/100 WBC (test code = 0792614127) 0.0 See_Comment [Automated me ssage] The system which generated this result transmitted reference range: 0.0 - 10.0 /100 WBCs. The reference range was not used to interpret this result as normal/abnormal. NRBC x10^3 (test code = 9827115238) See_Comment [Automated messa ge] The system which generated this result transmitted reference range: 10*3/?L. The reference range was not used to interpret this result as normal/abnormal. GRAN MAT (NEUT) % (test code = 770-8) 66.1 % IMM GRAN % (test code = 3439035353) 0.80 % LYMPH % (test code = 736-9) 13.2 % MONO % (test code = 5905-5) 10.2 % EOS % (test code = 713-8) 9.3 % BASO % (test code = 706-2) 0.4 % GRAN MAT x10^3(ANC) (test code = 9028735156) 5.97 10*3/uL 1.99-6.95 IMM GRAN x10^3 (test code = 6475305410) 0.07 10*3/uL 0.00-0.06 H LYMPH x10^3 (test code = 731-0) 1.19 10*3/uL 1.09-3.23 MONO x10^3 (test code = 742-7) 0.92 10*3/uL 0.36-1.02 EOS x10^3 (test code = 711-2) 0.84 10*3/uL 0.06-0.53 H BASO x10^3 (test code = 704-7) 0.04 10*3/uL 0.01-0.09 Lab Interpretation (test code = 18586-7) [facility]* Test Item Value Reference Range Interpretation Comme nts MAGNESIUM (test code = 1368288537) 2.6 mg/dL 1.7-2.4 H Lab Interpretation (test cod e = 13310-3) [facility] (91012[facility]2023-02-24 10:30:39* Test Item Value Reference Range Interpretation Comme nts NA (test code = 4720222519) 135 mmol/L 135-145 K (test code = 8080558704) 4.2 mmol/L 3.5-5.0 CL (test code = 5668590062) 102 mmol/L 98-108 CO2 TOTAL (test code = 1009927134) 19 mmol/L 23-31 L AGAP (test code = 2368798841) 14 2-16 BUN (test code = 6770450186) 31 mg/dL 7-23 H GLUCOSE (test code = 7458183257) 110 mg/dL 70-110 CREATININE (test code = 8339456849) 7.39 mg/dL 0.60-1.25 H TOTAL BILI (test code = 1390940732) 2.2 mg/dL 0.1-1.1 H CALCIUM (test code = 5629070671) 9.1 mg/dL 8.6-10.6 T PROTEIN (test code = 9769885324) 7.0 g/dL 6.3-8.2 ALBUMIN (test code = 0138826049) 4.1 g/dL 3.5-5.0 ALK PHOS (test code = 0070346209) 218 U/L 34-122 H ALTv (test code = 1742-6) 53 U/L 5-50 H AST(SGOT) (test code = 6452424052) 242 U/L 13-40 H eGFR (test code = 84943-9) 8.0 mL/min/1.73m2 CKD-EPI eGFR (2020). Assuming creatinine has been stable day-to-day for at least three months, the eGFR indicates Category G5 (<= 14mL/min/1.73 m2) Lab Interpretation (test code = 19826-1) [facility] 10:30:39* Test Item Value Reference Range Interpretation Comme nts PHOSPHORUS (test code = 6626938458) 3.6 mg/dL 2.5-5.0 Lab Interpretation (test cod e = 29269-1) [facility] (NA, K, CL, CO2, GLUCOSE, BUN, CREATININE, CA)2023-02-24 10:30:39* Test Item Value Reference Range Interpretation Comme nts NA (test code = 8777526842) 135 mmol/L 135-145 K (test code = 3438398716) 4.2 mmol/L 3.5-5.0 CL (test code = 9382830066) 102 mmol/L 98-108 CO2 TOTAL (test code = 2107043859) 19 mmol/L 23-31 L AGAP (test code = 2720045654) 14 2-16 BUN (test code = 8631776808) 31 mg/dL 7-23 H GLUCOSE (test code = 8169110164) 110 mg/dL 70-110 CREATININE (test code = 5539667003) 7.39 mg/dL 0.60-1.25 H CALCIUM (test code = 8464926882) 9.1 mg/dL 8.6-10.6 eGFR (test code = 08600-7) 8.0 mL/min/1.73m2 CKD-EPI eGFR (2020). Assuming creatinine has been stable day-to-day for at least three months, the eGFR indicates Category G5 (<= 14mL/min/1.73 m2)CKD-EPI eGFR (2020). Assuming creatinine has been stable day-to-day for at least three months, the eGFR indicates Category G5 (<= 14mL/min/1.73 m2) Lab Interpretation (test code = 13661-1) [facility] + Lactic [id number] 21:58:55* Test Item Value Reference Range Interpretation Comme nts PH (test code = 2) 7.47 7.35-7.45 H PCO2 (test code = 5549296043) 30 See_Comment L [Automated messa ge] The system which generated this result transmitted reference range: 35 - 45 mmHg. The reference range was not used to interpret this result as normal/abnormal. PO2 (test code = 9312561682) 96 See_Comment [Automated messa ge] The system which generated this result transmitted reference range: 80 - 100 mmHg. The reference range was not used to interpret this result as normal/abnormal. HCO3 (test code = 4024805159) 21 See_Comment L [Automated messa ge] The system which generated this result transmitted reference range: 22 - 26 mEq/L. The reference range was not used to interpret this result as normal/abnormal. BE (test code = 2347532358) -2.1 See_Comment [Automated messa ge] The system which generated this result transmitted reference range: -3.0 - 3.0 mEq/L. The reference range was not used to interpret this result as normal/abnormal. THB (test code = 2286176133) 10.5 g/dL 13.5-18.0 L %O2HB (test code = 8660927720) 97.4 % 94.0-99.0 %COHB ART (test code = 8573694257) 0.3 % 0.0-1.5 %METHB ART (test code = 3891948818) 0.0 % 0.4-1.5 L VOL%O2 ART (test code = 7911824370) 14.5 % 15.0-23.0 L NA (test code = 9877736060) 131 mmol/L 135-145 L K+ (test code = 6524696130) 3.9 mmol/L 3.5-5.0 AC CA IONZ (test code = 3819954927) 4.50 mg/dL 4.50-5.30 GLUCOSE (test code = 5374041444) 100 mg/dL 70-110 LACTIC ACID (test code = 1212430466) 1.70 mmol/L 0.50-2.20 QUES Lab Interpretation (test code = 32414-2) [facility] + Lactic [id number] 16:28:05* Test Item Value Reference Range Interpretation Comme nts PH (test code = 2) 7.53 7.35-7.45 H PCO2 (test code = 4676369037) 26 See_Comment L [Automated messa ge] The system which generated this result transmitted reference range: 35 - 45 mmHg. The reference range was not used to interpret this result as normal/abnormal. PO2 (test code = 4733136255) 87 See_Comment [Automated messa ge] The system which generated this result transmitted reference range: 80 - 100 mmHg. The reference range was not used to interpret this result as normal/abnormal. HCO3 (test code = 2256877172) 21 See_Comment L [Automated messa ge] The system which generated this result transmitted reference range: 22 - 26 mEq/L. The reference range was not used to interpret this result as normal/abnormal. BE (test code = 0267938843) -0.9 See_Comment [Automated messa ge] The system which generated this result transmitted reference range: -3.0 - 3.0 mEq/L. The reference range was not used to interpret this result as normal/abnormal. THB (test code = 4237429403) 10.0 g/dL 13.5-18.0 L %O2HB (test code = 0131257483) 97.2 % 94.0-99.0 %COHB ART (test code = 5748567566) 0.3 % 0.0-1.5 %METHB ART (test code = 9469909530) 0.1 % 0.4-1.5 L VOL%O2 ART (test code = 5287151053) 13.8 % 15.0-23.0 L NA (test code = 0375274770) 129 mmol/L 135-145 L K+ (test code = 3562092216) 3.8 mmol/L 3.5-5.0 AC CA IONZ (test code = 7789180952) 4.20 mg/dL 4.50-5.30 L GLUCOSE (test code = 2366512237) 101 mg/dL 70-110 LACTIC ACID (test code = 4577475512) 1.62 mmol/L 0.50-2.20 Lab Interpretation (test code = 20880-0) [facility] 10:54:26* Test Item Value Reference Range Interpretation Comme nts MAGNESIUM (test code = 4097861432) 2.2 mg/dL 1.7-2.4 Lab Interpretation (test cod e = 00515-7) [facility] (50098[facility]2023-02-22 10:54:25* Test Item Value Reference Range Interpretation Comme nts NA (test code = 1667557687) 130 mmol/L 135-145 L K (test code = 0893677607) 3.8 mmol/L 3.5-5.0 CL (test code = 7250011739) 99 mmol/L 98-108 CO2 TOTAL (test code = 5531695109) 20 mmol/L 23-31 L AGAP (test code = 8294722543) 11 2-16 BUN (test code = 7193215540) 17 mg/dL 7-23 GLUCOSE (test code = 5868600190) 107 mg/dL 70-110 CREATININE (test code = 1980273783) 3.96 mg/dL 0.60-1.25 H TOTAL BILI (test code = 4385163090) 2.5 mg/dL 0.1-1.1 H CALCIUM (test code = 9824087999) 7.8 mg/dL 8.6-10.6 L T PROTEIN (test code = 3803274895) 6.7 g/dL 6.3-8.2 ALBUMIN (test code = 9232781633) 3.5 g/dL 3.5-5.0 ALK PHOS (test code = 8120160781) 332 U/L 34-122 H ALTv (test code = 1742-6) 73 U/L 5-50 H AST(SGOT) (test code = 2321892796) 405 U/L 13-40 H eGFR (test code = 02839-1) 16.9 mL/min/1.73m2 CKD-EPI eGFR (2020). Assuming creatinine has been stable day-to-day for at least three months, the eGFR indicates Category G4 (15 - 29 mL/min/1.73 m2) Lab Interpretation (test code = 17092-8) Abnormal [facility] Arterial Blood Gas.2023-02-21 22:56:14* Test Item Value Reference Range Interpretation Comme nts PH (test code = 2) 7.40 7.35-7.45 PCO2 (test code = 0337061344) 34 See_Comment L [Automated messa ge] The system which generated this result transmitted reference range: 35 - 45 mmHg. The reference range was not used to interpret this result as normal/abnormal. PO2 (test code = 8944777498) 108 See_Comment H QUES [Automated message] The system which generated this result transmitted reference range: 80 - 100 mmHg. The reference range was not used to interpret this result as normal/abnormal. HCO3 (test code = 1000309467) 21 See_Comment L [[employer]] The system which generated this result transmitted reference range: 22 - 26 mEq/L. The reference range was not used to interpret this result as normal/abnormal. BE (test code = 4041583103) -3.5 See_Comment L [Automated messa [employer]] The system which generated this result transmitted reference range: -3.0 - 3.0 mEq/L. The reference range was not used to interpret this result as normal/abnormal. Lab Interpretation (test code = 17171-5) [facility]23-[facility]-21 22:32:50* Test Item Value Reference Range Interpretation Comme nts Height (test code = 4091474293) 69 in Weight (test code = 6908281066) 206 lbs Systolic BP (test code = 3756669925) 154 mmHg Diastolic BP (test code = 2880773322) 90 mmHg Heart Rate (test code = 0396074004) 98 bpm LVOT stroke volume (test code = 7409332520) 88.00 cm3 EF(Teich) (test code = 7685706738) 57.60 % LVIDD (test code = 8395420313) 6.30 cm LVIDS (test code = 1172119255) 4.30 cm Left Ventricular End Systolic Volume by Teichholz Method (test code = 5347663) 84.8 mL Left Ventricular End Diastolic Volume by Teichholz Method (test code = 2806105) 200.1 mL IVS (test code = 9744482099) 1.34 cm LVPWD (test code = 1281829329) 1.16 cm LVOT diameter (test code = 9334331581) 2.19 cm LVOT area (test code = 2775883496) 3.80 cm2 FS (test code = 7612977248) 31 % MV Peak E Cy (test code = 3431835622) 136.7 cm/s MV Peak A Cy (test code = 1148558578) 93.0 cm/s E/A ratio (test code = 8824892919) 1.47 ratio E wave decelartion time (test code = 1694930740) 0.10 s LA Volume Index (BP) (test code = 3495905220) 40.1 mL/m2 LA volume (BP) (test code = 6923819014) 84.0 mL LVOT peak cy (test code = 8761361473) 133.8 cm/s LVOT mn grad (test code = 9251793374) 3.9 mmHg BSA (test code = 3126751596) 2.09 m2 LA size (test code = 8707888550) 5.2 cm LAV(MOD-sp2) (test code = 8717774133) 68.20 mL LAV(MOD-sp4) (test code = 7502531618) 68.10 mL Tapse (test code = 5855715503) 2.29 cm Ao peak cy (test code = 8261125206) 186.8 cm/s AV LVOT peak gradient (test code = 5331748931) 7.2 mmHg LVOT peak VTI (test code = 2466554652) 23.4 cm AV area peak cy (test code = 1739260373) 2.7 cm2 LV V1 mean (test code = 2120413762) 94.40 cm/s Ao max PG (test code = 7927756255) 14.00 mm[Hg] MV Prop V (test code = 5301483601) 32.40 cm/s Ao root diam (test code = 8741794015) 3.70 cm AV peak gradient (test code = 2592518430) 14.0 mmHg Aortic root (test code = 7006865264) 3.7 cm Ao root annulus (test code = 2713466411) 3.7 cm PW (test code = 3061081944) 1.16 cm 0.6-1.1 EF - 2D (test code = 95588882) 57.60 % Interventricular Septum Diastolic Thickness by 2D (test code = 1189592) 1.34 cm TR Peak Cy (test code = 5100910539) 136.8 cm/s Triscuspid Valve Regurgitation Peak Gradient (test code = 7648633819) 7.5 mmHg TASV (test code = 0943784111) 15.1 cm/s A2C EF (test code = 5867001540) 58.70 % EF(sp2-el) (test code = 4467921956) 60.40 % SV(MOD-sp2) (test code = 8035821244) 85.90 mL LV Diastolic Volume (BP) (test code = 5974193434) 146.0 mL A4C EF (test code = 5725797210) 52.90 % EF(MOD-bp) (test code = 4211539071) 54.70 % EF(sp4-el) (test code = 0189605675) 53.60 % LV Systolic Volume (BP) (test code = 8301388346) 66.2 mL SV(MOD-bp) (test code = 9371313234) 79.80 mL SV(MOD-sp4) (test code = 1236021705) 75.70 mL SV(sp4-el) (test code = 5162570023) 75.90 mL EF (test code = 6151692645) 55 Left Ventricular Stroke Volume by 2-D Biplane-MOD (test code = 6612208) 79.8 mL LV Diastolic Volume Index (BP) (test code = 3217301739) 69.9 mL/m2 LV Systolic Volume Index (BP) (test code = 0870343276) 31.7 mL/m2 Radiology Study observation (narrative) (test code = 72316-7) BOBBY (test code = BOBBY) ?Left?Ventricle: Left [...] aorta. Measures 4 cm and index 1.9 cm/v7XyuncdoawzoRci pericardium is normal. No pericardial effusion.Study DetailsStudy [...] lateral and apex.All other segments are normal. [facility] Lactic [id number] 20:41:00* Test Item Value Reference Range Interpretation Comme nts PH (test code = 2) 7.15 7.35-7.45 LL PCO2 (test code = 3107380849) 73 See_Comment H [Automated messa ge] The system which generated this result transmitted reference range: 35 - 45 mmHg. The reference range was not used to interpret this result as normal/abnormal. PO2 (test code = 5765882052) 147 See_Comment H [Automated messa ge] The system which generated this result transmitted reference range: 80 - 100 mmHg. The reference range was not used to interpret this result as normal/abnormal. HCO3 (test code = [id number]) 25 See_Comment [Automated messa ge] The system which generated this result transmitted reference range: 22 - 26 mEq/L. The reference range was not used to interpret this result as normal/abnormal. BE (test code = [id number]) -4.7 See_Comment L [Automated messa ge] The system which generated this result transmitted reference range: -3.0 - 3.0 mEq/L. The reference range was not used to interpret this result as normal/abnormal. THB (test code = 7181039194) 10.1 g/dL 13.5-18.0 L %O2HB (test code = 0635241897) 98.4 % 94.0-99.0 %COHB ART (test code = 4596562421) 0.2 % 0.0-1.5 %METHB ART (test code = 5813930270) 0.2 % 0.4-1.5 L VOL%O2 ART (test code = 1638079748) 14.3 % 15.0-23.0 L NA (test code = 2888828065) 129 mmol/L 135-145 L K+ (test code = 5871054533) 4.4 mmol/L 3.5-5.0 AC CA IONZ (test code = 2865171099) 4.20 mg/dL 4.50-5.30 L GLUCOSE (test code = 5122430372) 159 mg/dL 70-110 H LACTIC ACID (test code = 9642866673) 1.02 mmol/L 0.50-2.20 QUES Lab Interpretation (test code = 57750-6) [facility] [id number] 17:21:48* Test Item Value Reference Range Interpretation Comme nts PH (test code = 2) 7.25 7.35-7.45 L PCO2 (test code = 4615047533) 56 See_Comment H [Automated messa ge] The system which generated this result transmitted reference range: 35 - 45 mmHg. The reference range was not used to interpret this result as normal/abnormal. PO2 (test code = 0610664038) 103 See_Comment H [Automated messa ge] The system which generated this result transmitted reference range: 80 - 100 mmHg. The reference range was not used to interpret this result as normal/abnormal. HCO3 (test code = 3469050123) 24 See_Comment [Automated messa ge] The system which generated this result transmitted reference range: 22 - 26 mEq/L. The reference range was not used to interpret this result as normal/abnormal. BE (test code = 4002583207) -4.0 See_Comment L [Automated messa ge] The system which generated this result transmitted reference range: -3.0 - 3.0 mEq/L. The reference range was not used to interpret this result as normal/abnormal. THB (test code = 4689749522) 11.0 g/dL 13.5-18.0 L %O2HB (test code = 4161630485) 96.9 % 94.0-99.0 %COHB ART (test code = 9410104783) 0.3 % 0.0-1.5 %METHB ART (test code = 3722039509) 0.3 % 0.4-1.5 L VOL%O2 ART (test code = 0208838298) 15.1 % 15.0-23.0 NA (test code = 5393019510) 130 mmol/L 135-145 L K+ (test code = 4240774757) 4.1 mmol/L 3.5-5.0 AC CA IONZ (test code = 8390138137) 4.10 mg/dL 4.50-5.30 L GLUCOSE (test code = 2520819965) 146 mg/dL 70-110 H LACTIC ACID (test code = 7612847790) 1.23 mmol/L 0.50-2.20 QUES Lab Interpretation (test code = 05476-3) [facility] (ALB,T.PRO,BILI T,BU/BC,ALT,AST,ALK PHOS)2023-02-21 11:23:27* Test Item Value Reference Range Interpretation Comme nts TOTAL BILI (test code = 5798691830) 2.3 mg/dL 0.1-1.1 H BILI UNCON (test code = 5395541552) 0.6 mg/dL 0.1-1.1 BILI CONJ (test code = 8186226929) 0.0 mg/dL 0.0-0.3 T PROTEIN (test code = 4923764537) 7.4 g/dL 6.3-8.2 ALBUMIN (test code = 6606927510) 4.1 g/dL 3.5-5.0 ALK PHOS (test code = 7497388696) 334 U/L 34-122 H ALTv (test code = 1742-6) 86 U/L 5-50 H AST(SGOT) (test code = 2598002028) 403 U/L 13-40 H Lab Interpretation (test cod e = 50497-2) Abnormal [facility] WITH [id number] 11:23:27* Test Item Value Reference Range Interpretation Comme nts WBC (test code = 6690-2) 9.36 See_Comment [Automated messa ge] The system which generated this result transmitted reference range: 4.20 - 10.70 10*3/?L. The reference range was not used to interpret this result as normal/abnormal. RBC (test code = 789-8) 2.87 See_Comment L [[employer]] The system which generated this result [...] 32.8 g/dL 31.2-35.0 RDW-SD (test code = 71465-1) 63.8 fL 38.5-51.6 H RDW-CV (test code = 788-0) 18.5 % 12.1-15.4 H PLT (test code = 777-3) 56 See_Comment L [Automated messa ge] The system which generated this result transmitted reference range: 150 - 328 10*3/?L. The reference range was not used to interpret this result as normal/abnormal. MPV (test code = 50104-4) 11.0 fL 9.8-13.0 IPF % (test code = 3028227549) 7.4 % 1.2-10.7 Platelet count measured by fluorescence method. NRBC/100 WBC (test code = 7236715209) 0.0 See_Comment [Automated [employer] ssage] The system which generated this result transmitted reference range: 0.0 - 10.0 /100 WBCs. The reference range was not used to interpret this result as normal/abnormal. NRBC x10^3 (test code = 3315071213) See_Comment [Automated messa ge] The system which generated this result transmitted reference range: 10*3/?L. The reference range was not used to interpret this result as normal/abnormal. GRAN MAT (NEUT) % (test code = 770-8) 88.2 % IMM GRAN % (test code = 2812068331) 0.70 % LYMPH % (test code = 736-9) 3.4 % MONO % (test code = 5905-5) 7.3 % EOS % (test code = 713-8) 0.3 % BASO % (test code = 706-2) 0.1 % GRAN MAT x10^3(ANC) (test code = 5620819257) 8.25 10*3/uL 1.99-6.95 H IMM GRAN x10^3 (test code = 5084462693) 0.07 10*3/uL 0.00-0.06 H LYMPH x10^3 (test code = 731-0) 0.32 10*3/uL 1.09-3.23 L MONO x10^3 (test code = 742-7) 0.68 10*3/uL 0.36-1.02 EOS x10^3 (test code = 711-2) 0.03 10*3/uL 0.06-0.53 L BASO x10^3 (test code = 704-7) 0.01-0.09 Lab Interpretation (test code = 17155-2) Abnormal [facility] METABOLIC PANEL (NA, K, CL, CO2, GLUCOSE, BUN, CREATININE, CA)2023-02-21 11:23:27* Test Item Value Reference Range Interpretation Comme nts NA (test code = 3240314191) 131 mmol/L 135-145 L K (test code = 3058556746) 4.2 mmol/L 3.5-5.0 CL (test code = 0466093361) 96 mmol/L 98-108 L CO2 TOTAL (test code = 5394475791) 22 mmol/L 23-31 L AGAP (test code = 4533826464) 13 2-16 BUN (test code = 9506169262) 21 mg/dL 7-23 GLUCOSE (test code = 0488152353) 158 mg/dL 70-110 H CREATININE (test code = 2871071908) 3.61 mg/dL 0.60-1.25 H CALCIUM (test code = 1769970718) 7.2 mg/dL 8.6-10.6 L eGFR (test code = 70279-3) 17.6 mL/min/1.73m2 BOBBY (test code = BOBBY) [...] imaging tests). Lab Interpretation (test code = 12272-6) [facility]06031[facility] (ALB,T.PRO,BILI T,BU/BC,ALT,AST,ALK PHOS)2023-02-21 11:23:27* Test Item Value Reference Range Interpretation Comme nts TOTAL BILI (test code = 7934880179) 2.3 mg/dL 0.1-1.1 H BILI UNCON (test code = 7308820539) 0.6 mg/dL 0.1-1.1 BILI CONJ (test code = 4755711280) 0.0 mg/dL 0.0-0.3 T PROTEIN (test code = 5462940690) 7.4 g/dL 6.3-8.2 ALBUMIN (test code = 1268251450) 4.1 g/dL 3.5-5.0 ALK PHOS (test code = 8712703722) 334 U/L 34-122 H ALTv (test code = 1742-6) 86 U/L 5-50 H AST(SGOT) (test code = 3174850649) 403 U/L 13-40 H Lab Interpretation (test cod e = 91249-4) [facility] / [id number] 11:08:05* Test Item Value Reference Range Interpretation [...] the indications. Lab Interpretation (test code = 84626-2) Abnormal [facility] 1/2 AG-AB WITH [id number] 04:10:12* Test Item Value Reference Range Interpretation Comme [facility] HIV Semi-quantitative (test code = 82085-7) 0.12 Negative BOBBY (test code = BOBBY) Non-reactive for HIV-1 antigen and HIV-1/HIV-2 antibodies. ?No laboratory evidence of HIV infection. ?Repeat in 2-4 weeks if acute HIV infection is suspected. [facility] 1/2 AG-AB WITH [id number] 04:10:12* Test Item Value Reference Range Interpretation Comme [facility] HIV Semi-quantitative (test code = 36973-2) 0.12 Negative BOBBY (test code = BOBBY) Non-reactive for HIV-1 antigen and HIV-1/HIV-2 antibodies. ?No laboratory evidence of HIV infection. ?Repeat in 2-4 weeks if acute HIV infection is suspected. [facility] Lactic [id number] 20:02:14* Test Item Value Reference Range Interpretation Comme nts PH (test code = 2) 7.26 7.35-7.45 L PCO2 (test code = 6733012312) 48 See_Comment H [Automated messa ge] The system which generated this result transmitted reference range: 35 - 45 mmHg. The reference range was not used to interpret this result as normal/abnormal. PO2 (test code = 3672401712) 86 See_Comment [Automated messa ge] The system which generated this result transmitted reference range: 80 - 100 mmHg. The reference range was not used to interpret this result as normal/abnormal. HCO3 (test code = 4370514185) 21 See_Comment L [Automated messa ge] The system which generated this result transmitted reference range: 22 - 26 mEq/L. The reference range was not used to interpret this result as normal/abnormal. BE (test code = 4292087574) -6.0 See_Comment L [Automated messa ge] The system which generated this result transmitted reference range: -3.0 - 3.0 mEq/L. The reference range was not used to interpret this result as normal/abnormal. THB (test code = 5602507681) 12.6 g/dL 13.5-18.0 L %O2HB (test code = 7981904357) 94.9 % 94.0-99.0 %COHB ART (test code = 8115221092) 0.4 % 0.0-1.5 %METHB ART (test code = 5246722021) 0.2 % 0.4-1.5 L VOL%O2 ART (test code = 5766161154) 16.9 % 15.0-23.0 NA (test code = 0207412052) 126 mmol/L 135-145 L K+ (test code = 3751021819) 4.2 mmol/L 3.5-5.0 AC CA IONZ (test code = 9657358252) 3.80 mg/dL 4.50-5.30 L GLUCOSE (test code = 6313155510) 161 mg/dL 70-110 H LACTIC ACID (test code = 8116156824) 1.23 mmol/L 0.50-2.20 QUES Lab Interpretation (test code = 97652-2) Abnormal [facility] METABOLIC PANEL (NA, K, CL, CO2, GLUCOSE, BUN, CREATININE, CA)2023-02-20 19:11:54* Test Item Value Reference Range Interpretation Comme nts NA (test code = 3781706321) 127 mmol/L 135-145 L K (test code = 3995125748) 4.4 mmol/L 3.5-5.0 CL (test code = 9991891901) 94 mmol/L 98-108 L CO2 TOTAL (test code = 9323573344) 21 mmol/L 23-31 L AGAP (test code = 7457714592) 12 2-16 BUN (test code = 4418664362) 36 mg/dL 7-23 H GLUCOSE (test code = 0877385691) 160 mg/dL 70-110 H CREATININE (test code = 6096405664) 5.68 mg/dL 0.60-1.25 H CALCIUM (test code = 1499649332) 6.9 mg/dL 8.6-10.6 L eGFR (test code = 41803-3) 10.4 mL/min/1.73m2 BOBBY (test code = BOBBY) [...] imaging tests). Lab Interpretation (test code = 49391-4) Abnormal [facility], [id number] 19:07:13* Test Item Value Reference Range Interpretation Comme nts AMMONIA (test code = 4633332464) 39 umol/L 9-33 H Lab Interpretation (test cod e = 14147-7) Abnormal [facility] GLUCOSE (AUTOMATED)2023-02-20 16:14:29* Test Item Value Reference Range Interpretation Comme nts POCT GLU (test code = 3448752535) 154 mg/dL 70-110 H Lab Interpretation (test cod e = 37967-4) Abnormal [facility] GLUCOSE (AUTOMATED)2023-02-20 16:14:29* Test Item Value Reference Range Interpretation Comme nts POCT GLU (test code = 2730412716) 154 mg/dL 70-110 H Lab Interpretation (test cod e = 19104-6) Abnormal [facility] WITH [id number] 10:35:29* Test Item Value Reference Range Interpretation Comme nts WBC (test code = 6690-2) 8.51 See_Comment [Automated messa [employer]] The system which generated this result transmitted [...] 34.7 g/dL 31.2-35.0 RDW-SD (test code = 71360-3) 59.2 fL 38.5-51.6 H RDW-CV (test code = 788-0) 18.0 % 12.1-15.4 H PLT (test code = 777-3) 104 See_Comment L [Automated messa ge] The system which generated this result transmitted reference range: 150 - 328 10*3/?L. The reference range was not used to interpret this result as normal/abnormal. MPV (test code = 30825-8) 11.3 fL 9.8-13.0 IPF % (test code = 2796089736) 6.3 % 1.2-10.7 Platelet count measured by fluorescence method. NRBC/100 WBC (test code = 2864368243) 0.0 See_Comment [Automated [employer] ssage] The system which generated this result transmitted reference range: 0.0 - 10.0 /100 WBCs. The reference range was not used to interpret this result as normal/abnormal. NRBC x10^3 (test code = 2455624824) See_Comment [[employer]] The system which generated this result transmitted reference range: 10*3/?L. The reference range was not used to interpret this result as normal/abnormal. GRAN MAT (NEUT) % (test code = 770-8) 88.6 % IMM GRAN % (test code = 5504505813) 0.80 % LYMPH % (test code = 736-9) 4.6 % MONO % (test code = 5905-5) 4.9 % EOS % (test code = 713-8) 0.9 % BASO % (test code = 706-2) 0.2 % GRAN MAT x10^3(ANC) (test code = 7105774182) 7.53 10*3/uL 1.99-6.95 H IMM GRAN x10^3 (test code = 3419909083) 0.07 10*3/uL 0.00-0.06 H LYMPH x10^3 (test code = 731-0) 0.39 10*3/uL 1.09-3.23 L MONO x10^3 (test code = 742-7) 0.42 10*3/uL 0.36-1.02 EOS x10^3 (test code = 711-2) 0.08 10*3/uL 0.06-0.53 BASO x10^3 (test code = 704-7) 0.01-0.09 Lab Interpretation (test code = 87978-8) [facility] 10:26:22* Test Item Value Reference Range Interpretation Comme nts PHOSPHORUS (test code = 6030335778) 6.4 mg/dL 2.5-5.0 H Lab Interpretation (test cod e = 10047-2) [facility] 10:26:22* Test Item Value Reference Range Interpretation Comme nts MAGNESIUM (test code = 8623846228) 2.1 mg/dL 1.7-2.4 Lab Interpretation (test cod e = 81699-2) [facility] (NA, K, CL, CO2, GLUCOSE, BUN, CREATININE, CA)2023-02-20 10:26:22* Test Item Value Reference Range Interpretation Comme nts NA (test code = 0278098935) 125 mmol/L 135-145 L K (test code = 7370624745) 4.4 mmol/L 3.5-5.0 CL (test code = 7875074218) 91 mmol/L 98-108 L CO2 TOTAL (test code = 3913034084) 15 mmol/L 23-31 L AGAP (test code = 8669544021) 19 2-16 H BUN (test code = 4608519476) 49 mg/dL 7-23 H GLUCOSE (test code = 0891901541) 154 mg/dL 70-110 H CREATININE (test code = 4715060749) 8.54 mg/dL 0.60-1.25 H CALCIUM (test code = 0172914983) 6.1 mg/dL 8.6-10.6 L eGFR (test code = 88688-5) 6.5 mL/min/1.73m2 BOBBY (test code = BOBBY) [...] imaging tests). Lab Interpretation (test code = 53069-0) [facility] / [id number] 09:53:41* Test Item Value Reference Range Interpretation Comme nts TRINI PATIENT (test code = 5964-2) 15.5 See_Comment H [[employer]] The system which generated this result transmitted reference range: 10.1 - 12.6 Seconds. The reference range was not used to interpret this result as normal/abnormal. INR (test code = 6301-6) 1.4 Normal INR <1.1; Warfarin Therapeutic range 2.0 to 3.0 or 2.5 to 3.5, depending upon the indications. Lab Interpretation (test code = 71166-1) [facility]15689[facility] (ALB,T.PRO,BILI T,BU/BC,ALT,AST,ALK PHOS)2023-02-20 06:50:43* Test Item Value Reference Range Interpretation Comme nts TOTAL BILI (test code = 4249853250) 2.3 mg/dL 0.1-1.1 H BILI UNCON (test code = 4276038433) 0.5 mg/dL 0.1-1.1 BILI CONJ (test code = 2708154340) 0.0 mg/dL 0.0-0.3 T PROTEIN (test code = 3200961777) 6.7 g/dL 6.3-8.2 ALBUMIN (test code = 9128513250) 3.0 g/dL 3.5-5.0 L ALK PHOS (test code = 9836731830) 324 U/L 34-122 H ALTv (test code = 1742-6) 98 U/L 5-50 H AST(SGOT) (test code = 6083337226) 384 U/L 13-40 H Lab Interpretation (test cod e = 60771-2) [facility] SER[facility] OR [id number] 21:10:51 * Test Item Value Reference Range Interpretation Comme nts OSMOLALITY (test code = 2692-2) 278 See_Comment [[employer]] The system which generated this result transmitted reference range: 278 - 305 mOsm/kg. The reference range was not used to interpret this result as normal/abnormal. Lab Interpretation (test code = 57855-9) [facility] SERUM OR [id number] 21:10:51 * Test Item Value Reference Range Interpretation Comme nts OSMOLALITY (test code = 2692-2) 278 See_Comment [[employer]] The system which generated this result transmitted reference range: 278 - 305 mOsm/kg. The reference range was not used to interpret this result as normal/abnormal. Lab Interpretation (test code = 77332-2) [facility], [id number] 14:08:31* Test Item Value Reference Range Interpretation Comme nts AMMONIA (test code = 2326298479) 25 umol/L 9-33 Lab Interpretation (test cod e = 97731-1) Normal [facility]. METABOLIC PANEL (35729)2023-02-19 13:44:54* Test Item Value Reference Range Interpretation Comme nts NA (test code = 2527949057) 121 mmol/L 135-145 L K (test code = 5679066436) 4.7 mmol/L 3.5-5.0 CL (test code = 0593987023) 90 mmol/L 98-108 L CO2 TOTAL (test code = 3364049625) 13 mmol/L 23-31 L AGAP (test code = 1644613286) 18 2-16 H BUN (test code = 5159804066) 61 mg/dL 7-23 H GLUCOSE (test code = 3779009771) 92 mg/dL 70-110 CREATININE (test code = 5928964138) 10.78 mg/dL 0.60-1.25 H TOTAL BILI (test code = 8299531668) 2.6 mg/dL 0.1-1.1 H CALCIUM (test code = 9597527720) 5.9 mg/dL 8.6-10.6 LL T PROTEIN (test code = 7372290171) 6.6 g/dL 6.3-8.2 ALBUMIN (test code = 0354742348) 3.1 g/dL 3.5-5.0 L ALK PHOS (test code = 4090459846) 304 U/L 34-122 H ALTv (test code = 1742-6) 98 U/L 5-50 H AST(SGOT) (test code = 2701241410) 387 U/L 13-40 H eGFR (test code = 86119-2) 5.0 mL/min/1.73m2 BOBBY (test code = BOBBY) [...] imaging tests). Lab Interpretation (test code = 36244-4) [facility] + LACTIC [id number] 05:32:17* Test Item Value Reference Range Interpretation Comme nts PH (test code = 4817468708) 7.23 7.32-7.42 L PCO2 JUAN LUIS (test code = 8142667570) 39 See_Comment L [Automated messa ge] The system which generated this result transmitted reference range: 41 - 51 mmHg. The reference range was not used to interpret this result as normal/abnormal. PO2 JUAN LUIS (test code = 6963978684) 39 See_Comment [Automated messa ge] The system which generated this result transmitted reference range: 25 - 40 mmHg. The reference range was not used to interpret this result as normal/abnormal. HCO3 JUAN LUIS (test code = 7724465097) 16 See_Comment L [Automated messa ge] The system which generated this result transmitted reference range: 24 - 28 mEq/L. The reference range was not used to interpret this result as normal/abnormal. AC VBE(BEAKER) (test code = 6518739520) -11.0 mEq/L THB JUAN LUIS (test code = 3093389744) 12.0 g/dL 13.5-18.0 L %O2HB JUAN LUIS (test code = 6050377230) 63.9 % 52.0-63.0 H %COHB JUAN LUIS (test code = 2994424883) 0.2 % 0.0-1.5 %METHB JUAN LUIS (test code = 6183685232) 0.0 % 0.4-1.5 L VOL%O2 JUAN LUIS (test code = 5675653436) 10.8 % 6.0-12.0 NA (test code = 3819756489) 121 mmol/L 135-145 L K+ (test code = 0173611210) 4.8 mmol/L 3.5-5.0 AC CA IONZ (test code = 6678045962) 3.40 mg/dL 4.50-5.30 L GLUCOSE (test code = 3027115389) 107 mg/dL 70-110 LACTIC ACID (test code = 6606560634) 1.52 mmol/L 0.50-2.20 Lab Interpretation (test code = 97341-0) [facility] + LACTIC [id number] 05:32:17* Test Item Value Reference Range Interpretation Comme nts PH (test code = 0660698516) 7.23 7.32-7.42 L PCO2 JUAN LUIS (test code = 6152553491) 39 See_Comment L [Automated messa ge] The system which generated this result transmitted reference range: 41 - 51 mmHg. The reference range was not used to interpret this result as normal/abnormal. PO2 JUAN LUIS (test code = 8026705073) 39 See_Comment [Automated messa ge] The system which generated this result transmitted reference range: 25 - 40 mmHg. The reference range was not used to interpret this result as normal/abnormal. HCO3 JUAN LUIS (test code = 1913249846) 16 See_Comment L [Automated messa ge] The system which generated this result transmitted reference range: 24 - 28 mEq/L. The reference range was not used to interpret this result as normal/abnormal. AC VBE(BEAKER) (test code = 0394180127) -11.0 mEq/L THB JUAN LUIS (test code = 0183389020) 12.0 g/dL 13.5-18.0 L %O2HB JUAN LUIS (test code = 2719419468) 63.9 % 52.0-63.0 H %COHB JUAN LUIS (test code = 7983022299) 0.2 % 0.0-1.5 %METHB JUAN LUIS (test code = 8568564699) 0.0 % 0.4-1.5 L VOL%O2 JUAN LUIS (test code = 2795575547) 10.8 % 6.0-12.0 NA (test code = 3385853829) 121 mmol/L 135-145 L K+ (test code = 3144826335) 4.8 mmol/L 3.5-5.0 AC CA IONZ (test code = 5551262755) 3.40 mg/dL 4.50-5.30 L GLUCOSE (test code = 5241743285) 107 mg/dL 70-110 LACTIC ACID (test code = 9060316636) 1.52 mmol/L 0.50-2.20 Lab Interpretation (test code = 74575-4) Abnormal [facility]"
[2024-05-02] MEDS ORDERED: POTASSIUM 25 MEQ EFFERV TAB ONE (16:26)
[2024-05-02] MEDS ORDERED: NA CHLORIDE 0.9% 500 ML ONE ×2 (16:26→17:58)
--- NOTE | 2024-05-02 16:31 | RAD REPORT ---
EXAMINATION: ONE VIEW CHEST XR CLINICAL INDICATION: CHEST PAIN TECHNIQUE: Frontal chest projection is submitted. Examination is limited by patient positioning and t echnique. COMPARISON: 02/03/2024 FINDINGS: The lungs are well inflated and clear. The heart is upper limit of normal in size. No displaced fract ures identified. Right thoracic cage hardware noted, unchanged. Third plate from the inferior most may be chronically fractured. IMPRESSION: No acute intrathoracic abnormalities.
[2024-05-02 16:52] LABS: PT Prothrombin Time 13.3 SECONDS (9.4-12.5); Protime INR 1.19
[2024-05-02 16:53] LABS: Absolute Basophils 0.1 K/uL (0-0.5); Absolute Eosinophils 0.1 K/uL (0-0.5); Absolute Lymphocytes (CBC) 1.7 K/uL (0.7-4.9); Absolute Monocytes 1.3 K/uL (0.1-1.3); Absolute Neutrophil 6.9 K/uL (1.8-8.0); Eosinophils % 1.1 % (0-4.4); Hematocrit 42.7 % (39.6-49.0); Hemoglobin 14.4 g/dL (13.6-17.9); Lymphocytes % 16.9 % (15.3-44.8); MCH 29.9 pg (27.0-35.0); MCHC 33.6 g/dL (32.0-36.0); MCV 89.1 fL (80-100); MPV 7.4 fL (7.6-11.3); Monocytes % 12.9 % (3.3-12.3); Neutrophils % 68.1 % (41.7-73.7); Nucleated Red Blood Cells % 0.2 % (0-0); Platelets 127 thou/uL (152-406); RBC Red Blood Cell Count 4.79 M/uL (4.33-5.43); Red Cell Distribution Width 20.6 % (12.1-15.2)
[2024-05-02 17:25] LABS: Albumin 3.9 g/dL (3.4-5.0); Albumin/Globulin Ratio 0.9 (1.1-1.8); Anion Gap 15.1 mEq/L (5.0-15.0); Bilirubin Direct 0.5 mg/dL (0-0.2); Bilirubin Indirect, Calculated 0.6 mg/dL (0.2-0.8); Bilirubin Total 1.1 mg/dL (0.2-1.0); Globulin 4.4 g/dL (2.3-3.5); Magnesium 1.7 mg/dL (1.6-2.4); Protein, Total 8.3 g/dL (6.4-8.2); Troponin High Sensitivity 17.3 pg/mL (<58.9)
[2024-05-02 17:27] LABS: Potassium 2.1 mEq/L (3.5-5.1)
[2024-05-02] MEDS ORDERED: KCL 20 MEQ/100 mL IVPB 100 ML IV ONE (17:58)
--- NOTE | 2024-05-02 18:17 | EDPHYS ---
Physician Documentation [facility] Name: Beny Alvarez Age: 58 yrs Sex: Male : 1965 Arrival Date: 05/02/2024 Time: 15:52 Bed 15 Private MD: ED Physician Marco Antonio Lamar HPI: 05/02 16:34 This 58 yrs old Male presents to ER via Ambulatory with complaints of Abnormal Lab sp3 Results. 16:34 58-year-old male with a history of liver cirrhosis, alcohol, PTSD from , sp3 hypertension, CHF, known CAD presents to the ED referred by [facility] for potassium 2.1. Patient also states he has been having chest pain. Pain feels like a stabbing sensation in the center chest that comes and goes and has been worse over the last week. He denies any headache, fever, URI symptoms, neck pain, shortness of breath, abdominal pain, back pain, vomiting, diarrhea, syncope, near syncope, prolonged immobilization, known travel history, known sick contacts, or any other signs or symptoms on ROS at this time.. Historical: - Allergies: 15:58 NSAIDS; tm6 - PMHx: 15:58 acid reflux; CHF; Hypertensive disorder; cirrhosis of liver; kidney disease; PTSD tm6 (Cholecystectomy); tremors; - PSHx: 15:58 Cholecystectomy; tm6 - Immunization history:: Flu vaccine is up to date. - Infectious Disease History:: Denies. - Social history:: Smoking status: Patient reports the use of cigarette tobacco products, denies chronic smoking, but will smoke occasionally, cigars. ROS: 16:35 Constitutional: Negative for fever, chills, and weight loss, Eyes: Negative for injury, sp3 pain, redness, and discharge, ENT: Negative for injury, pain, and discharge, Neck: Negative for injury, pain, and swelling, Respiratory: Negative for shortness of breath, cough, wheezing, and pleuritic chest pain, Abdomen/GI: Negative for abdominal pain, nausea, vomiting, diarrhea, and constipation, Back: Negative for injury and pain, MS/Extremity: Negative for injury and deformity, Skin: Negative for injury, rash, and discoloration, Neuro: Negative for headache, weakness, numbness, tingling, and seizure, Psych: Negative for depression, anxiety, suicide ideation, homicidal ideation, and hallucinations, Allergy/Immunology: Negative for hives, rash, and allergies, Endocrine: Negative for neck swelling, polydipsia, polyuria, polyphagia, and marked weight changes, Hematologic/Lymphatic: Negative for swollen nodes, abnormal bleeding, and unusual bruising, 16:35 All other systems are negative, Exam: 16:36 Constitutional: This is a well developed, well nourished patient who is awake, alert, sp3 and in no acute distress. Head/Face: Normocephalic, atraumatic. Eyes: Pupils equal round and reactive to light, extra-ocular motions intact. Lids and lashes normal. Conjunctiva and sclera are non-icteric and not injected. Cornea within normal limits. Periorbital areas with no swelling, redness, or edema. ENT: Nares patent. No nasal discharge, no septal abnormalities noted. External auditory canals are clear. Oropharynx with no redness, swelling, or masses, exudates, or evidence of obstruction, uvula midline. Mucous membranes moist. Neck: Trachea midline, no thyromegaly or masses palpated, and no cervical lymphadenopathy. Supple, full range of motion without nuchal rigidity, or vertebral point tenderness. No Meningismus. Chest/axilla: Normal chest wall appearance and motion. Nontender with no deformity. No lesions are appreciated. Respiratory: Lungs have equal breath sounds bilaterally, clear to auscultation and percussion. No rales, rhonchi or wheezes noted. No increased work of breathing, no retractions or nasal flaring. Abdomen/GI: Soft, non-tender, with normal bowel sounds. No distension or tympany. No guarding or rebound. No evidence of tenderness throughout. Back: No spinal tenderness. No costovertebral tenderness. Full range of motion. Skin: Warm, dry with normal turgor. Normal color with no rashes, no lesions, and no evidence of cellulitis. MS/ Extremity: Pulses equal, no cyanosis. Neurovascular intact. Full, normal range of motion. Neuro: Awake and alert, GCS 15, oriented to person, place, time, and situation. Cranial nerves II-XII grossly intact. Motor strength 5/5 in all extremities. Sensory grossly intact. Cerebellar exam normal. Normal gait. Psych: Awake, alert, with orientation to person, place and time. Behavior, mood, and affect are within normal limits. 16:36 Cardiovascular: Rate: tachycardic, 16:36 ECG was reviewed by the Attending Physician. EKG demonstrates sinus tachycardia at 104 bpm with normal intervals, left anterior fascicular block, leftward axis, and nonspecific diffuse ST's ST changes without evidence of acute ischemia. Vital Signs: 15:58 BP 114 / 79; Pulse 115; Resp 19; Temp 98.6(O); Pulse Ox 99% on R/A; MAP 90 mmHg; Weight tm6 88 kg; Height 5 ft. 10 in. ; 17:00 BP 137 / 95; Pulse 102; Resp 14; Pulse Ox 97% on R/A; me1 18:00 BP 134 / 91; Pulse 97; Resp 12; Pulse Ox 95% on R/A; me1 19:00 BP 146 / 95; Pulse 96; Resp 12; Pulse Ox 97% on R/A; me1 19:30 BP 139 / 90; Pulse 96; Resp 12; Temp 98.3; Pulse Ox 95% on R/A; me1 20:00 BP 153 / 91; Pulse 95; Resp 12; Temp 98.2; Pulse Ox 98% ; me1 15:58 Body Mass Index 27.84 (88.00 kg, 177.8 cm) tm6 MDM: 15:55 Medical Screening Exam initiated sp3 16:40 Data reviewed: vital signs, nurses notes, lab test result(s), EKG, radiologic studies. sp3 ED course: 58-year-old male with hypokalemia and chest pain with complex medical history. Differential diagnosis includes musculoskeletal symptoms secondary to potassium levels versus ACS versus other. Will obtain EKG, chest x-ray and general labs with probable 23-hour observation for continued hydration and cardiology consult.. 05/02 16:11 Order name: Basic Metabolic Panel; Complete Time: 17:28 sp3 05/02 16:11 Order name: CBC with Diff sp3 05/02 16:11 Order name: LFT's; Complete Time: 17:28 sp3 05/02 16:11 Order name: Magnesium; Complete Time: 17:28 sp3 05/02 16:11 Order name: NT PRO-BNP; Complete Time: 17:28 3 05/02 16:11 Order name: PT-INR; Complete Time: 17:28 sp3 05/02 16:11 Order name: Troponin HS; Complete Time: 17:28 sp3 05/02 18:58 Order name: Creatine Phosphokinase EDMS 05/02 18:58 Order name: Urinalysis w/ reflexes EDMS 05/02 18:58 Order name: CBC with Automated Diff EDMS 05/02 18:58 Order name: CBC with Automated Diff EDMS 05/02 18:58 Order name: Comprehensive Metabolic Panel EDMS 05/02 18:58 Order name: Comprehensive Metabolic Panel EDMS 05/02 18:58 Order name: Magnesium EDMS 05/02 18:58 Order name: Magnesium EDMS 05/02 18:58 Order name: Phosphorus EDMS 05/02 18:58 Order name: Phosphorus EDMS 05/02 18:58 Order name: Troponin High Sensitivity EDMS 05/02 18:58 Order name: Troponin High Sensitivity EDMS 05/02 18:58 Order name: Troponin High Sensitivity EDMS 05/02 18:58 Order name: Troponin High Sensitivity EDMS 05/02 19:24 Order name: CBC Smear Scan EDMS 05/02 16:11 Order name: XRAY Chest (1 view); Complete Time: 16:33 sp3 05/02 16:11 Order name: EKG; Complete Time: 16:12 sp3 05/02 18:59 Order name: Physical Therapy Consult EDMS 05/02 16:11 Order name: Cardiac monitoring; Complete Time: 16:15 sp3 05/02 16:11 Order name: EKG - Nurse/Tech; Complete Time: 16:15 sp3 05/02 16:11 Order name: IV Saline Lock; Complete Time: 16:24 sp3 05/02 16:11 Order name: Labs collected and sent; Complete Time: 16:24 sp3 05/02 16:11 Order name: O2 Per Protocol; Complete Time: 16:15 sp3 05/02 16:11 Order name: O2 Sat Monitoring; Complete Time: 16:15 sp3 Administered Medications: 16:31 Drug: Potassium PO Effervescent Tablet 50 mEq PO once; dissolve in 4 ounces of water or me1 juice Route: PO; 17:18 Follow up: Response: No adverse reaction me1 16:31 Drug: NS 0.9% IV 500 ml 500 ml IV at 1 bolus once; to be given as a bolus over 30 me1 minutes Volume: 500 ml; Route: IV; Rate: 1 bolus; Site: right antecubital; 17:18 Follow up: Response: No adverse reaction; IV Status: Completed infusion; IV Intake: me1 500ml 18:04 Drug: Potassium Chloride IV 20 mEq IV at calculated rate once; administer over 1-2 me1 hours Route: IV; Rate: calculated rate; Site: right antecubital; 19:58 Follow up: Response: No adverse reaction; IV Status: Completed infusion; IV Intake: me1 100ml Disposition Summary: 05/02/24 18:16 Hospitalization Ordered Notes: Hospitalization Status: Observation sp3 Provider: Yury Bush sp3 Location: Telemetry/MedSur (observation) sp3 Condition: Stable sp3 Problem: an acute exacerbation sp3 Symptoms: have worsened sp3 Bed/Room Type: Standard sp3 Room Assignment: 208(05/02/24 19:46) [facility] Diagnosis - Hypokalemia, chest pain sp3 Forms: - Medication Reconciliation Form sp3 - SBAR form sp3 - Leadership Thank You Letter sp3 Signatures: Dispatcher [employer] EDMarco Antonio Calix MD MD sp3 Shahnaz Arcos, KAYLA RN me1 Sri Luu kmf Yannick Murphy RN RN tm6 Corrections: (The following items were deleted from the chart) 19:46 18:16 sp3 [facility]
--- NOTE | 2024-05-02 18:17 | ER ---
Nurse's Notes [facility] Name: Beny Alvarez Age: 58 yrs Sex: Male : 1965 Arrival Date: 05/02/2024 Time: 15:52 Bed 15 Private MD: Diagnosis: Hypokalemia, chest pain Presentation: 05/02 15:59 Chief complaint: Patient states: went to my PCP today to check my liver, later the tm6 doctor called and said he was concerned about my potassium -- 2.1. Also having chest pains since yesterday. Coronavirus screen: Client denies travel out of the [place] in the last 14 days. Ebola Screen: Patient negative for fever greater than or equal to 101.5 degrees Fahrenheit, and additional compatible Ebola Virus Disease symptoms Patient denies exposure to infectious person. Patient denies travel to an Ebola-affected area in the 21 days before illness onset. No symptoms or risks identified at this time. Initial Sepsis Screen: Does the patient meet any 2 criteria? No. Patient's initial sepsis screen is negative. Does the patient have a suspected source of infection? No. Patient's initial sepsis screen is negative. Risk Assessment: Do you want to hurt yourself or someone else? Patient reports no desire to harm self or others. Onset of symptoms was May 02, 2024. 15:59 Method Of Arrival: Ambulatory 6 15:59 Acuity: KALEY 3 tm6 Triage Assessment: 15:59 General: Appears in no apparent distress. Behavior is calm, cooperative. Pain: tm6 Complains of pain in chest Pain currently is 6 out of 10 on a pain scale. Quality of pain is described as piercing, Pain began 1 day ago. EENT: No signs and/or symptoms were reported regarding the EENT system. Neuro: Level of Consciousness is awake, alert, obeys commands, Oriented to person, place, time, situation. Cardiovascular: Reports chest pain, since yesterday Patient's skin is warm and dry. Respiratory: Airway is patent Respiratory effort is even, unlabored, Respiratory pattern is regular, symmetrical. GI: No signs and/or symptoms were reported involving the gastrointestinal system. Abdomen is round non-distended. : No signs and/or symptoms were reported regarding the genitourinary system. Derm: No signs and/or symptoms reported regarding the dermatologic system. Musculoskeletal: No signs and/or symptoms reported regarding the musculoskeletal system. Historical: - Allergies: 15:58 NSAIDS; tm6 - PMHx: 15:58 acid reflux; CHF; Hypertensive disorder; cirrhosis of liver; kidney disease; PTSD tm6 (Cholecystectomy); tremors; - PSHx: 15:58 Cholecystectomy; tm6 - Immunization history:: Flu vaccine is up to date. - Infectious Disease History:: Denies. - Social history:: Smoking status: Patient reports the use of cigarette tobacco products, denies chronic smoking, but will smoke occasionally, cigars. Screenin:10 [facility] ED Fall Risk Assessment (Adult) History of falling in the last 3 months, me1 including since admission No falls in past 3 months (0 pts) Confusion or Disorientation No (0 pts) Intoxicated or Sedated No (0 pts) Impaired Gait No (0 pts) Mobility Assist Device Used No (0 pt) Altered Elimination No (0 pt) Score/Fall Risk Level 0 - 2 = Low Risk Maintained a safe environment, Provided non-skid footwear, Hourly rounding (assess needs \T\ fall precautionary measures) done. Abuse screen: Denies threats or abuse. Nutritional screening: No deficits noted. Tuberculosis screening: No symptoms or risk factors identified. Assessment: 16:10 General: Appears in no apparent distress. uncomfortable, well groomed, well developed, me1 well nourished, Behavior is Reports went to my PCP today to check my liver, later the doctor called and said he was concerned about my potassium -- 2.1. Also having chest pains since yesterday. Pain: Complains of pain in chest Pain does not radiate. Pain currently is 4 out of 10 on a pain scale. Quality of pain is described as heavy, Pain began 1 day ago. Is intermittent. Neuro: Level of Consciousness is awake, alert, obeys commands, Oriented to person, place, time, situation, Appropriate for age. Cardiovascular: Reports chest pain, Patient's skin is warm and dry. Respiratory: Airway is patent Trachea midline Respiratory effort is even, unlabored, Respiratory pattern is regular, symmetrical. GI: No signs and/or symptoms were reported involving the gastrointestinal system. : No signs and/or symptoms were reported regarding the genitourinary system. EENT: No signs and/or symptoms were reported regarding the EENT system. Derm: Skin is intact, is healthy with good turgor, Skin is pink, warm \T\ dry. Musculoskeletal: No signs and/or symptoms reported regarding the musculoskeletal system. Vital Signs: 15:58 BP 114 / 79; Pulse 115; Resp 19; Temp 98.6(O); Pulse Ox 99% on R/A; MAP 90 mmHg; Weight tm6 88 kg; Height 5 ft. 10 in. ; 17:00 BP 137 / 95; Pulse 102; Resp 14; Pulse Ox 97% on R/A; me1 18:00 BP 134 / 91; Pulse 97; Resp 12; Pulse Ox 95% on R/A; me1 19:00 BP 146 / 95; Pulse 96; Resp 12; Pulse Ox 97% on R/A; me1 19:30 BP 139 / 90; Pulse 96; Resp 12; Temp 98.3; Pulse Ox 95% on R/A; me1 20:00 BP 153 / 91; Pulse 95; Resp 12; Temp 98.2; Pulse Ox 98% ; me1 15:58 Body Mass Index 27.84 (88.00 kg, 177.8 cm) tm6 ED Course: 15:54 Patient arrived in ED. ra3 15:55 Marco Antonio Lamar MD is Attending Physician. sp3 15:59 Arm band placed on right wrist. tm6 16:00 Triage completed. tm6 16:10 Patient has correct armband on for positive identification. Bed in low position. Call ky1 light in reach. Side rails up X2. Provided Education on: POC. Verbalized understanding.. 16:10 No provider procedures requiring assistance completed. me1 16:14 Shahnaz Arcos, RN is Primary Nurse. me1 16:15 Client placed on continuous cardiac and pulse oximetry monitoring. NIBP monitoring tm6 applied. director music on. Pulse ox on. NIBP on. 16:15 EKG done, by ED staff, reviewed by Marco Antonio Lamar MD. tm6 16:21 XRAY Chest (1 view) In Process Unspecified. EDMS 16:23 Initial lab(s) drawn, by ky, sent to lab. Inserted saline lock: 20 gauge in right me1 antecubital area, using aseptic technique. 16:24 Basic Metabolic Panel Sent. me1 16:24 CBC with Diff Sent. me1 16:24 LFT's Sent. me1 16:24 Magnesium Sent. me1 16:24 NT PRO-BNP Sent. me1 16:24 PT-INR Sent. me1 16:24 Troponin HS Sent. me1 18:15 Yury Bush MD is Hospitalizing Provider. sp3 20:00 Patient admitted, IV remains in place. me1 Administered Medications: 16:31 Drug: Potassium PO Effervescent Tablet 50 mEq PO once; dissolve in 4 ounces of water or me1 juice Route: PO; 17:18 Follow up: Response: No adverse reaction me1 16:31 Drug: NS 0.9% IV 500 ml 500 ml IV at 1 bolus once; to be given as a bolus over 30 me1 minutes Volume: 500 ml; Route: IV; Rate: 1 bolus; Site: right antecubital; 17:18 Follow up: Response: No adverse reaction; IV Status: Completed infusion; IV Intake: me1 500ml 18:04 Drug: Potassium Chloride IV 20 mEq IV at calculated rate once; administer over 1-2 me1 hours Route: IV; Rate: calculated rate; Site: right antecubital; 19:58 Follow up: Response: No adverse reaction; IV Status: Completed infusion; IV Intake: me1 100ml Medication: 16:10 VIS not applicable for this client. me1 Intake: 17:18 IV: 500ml; Total: 500ml. me1 19:58 IV: 100ml; Total: 600ml. me1 Outcome: 18:16 Decision to Hospitalize by Provider. sp3 20:00 Admitted to Med/surg accompanied by tech, via wheelchair, room 208, with chart, Report me1 called to faxed, receipt confirmed with Barbara. 20:00 Condition: stable 20:00 Instructed on the need for admit, 20:53 Patient left the ED. me1 Signatures: Dispatcher [employer] EDMS Marco Antonio Lamar MD MD sp3 Shahnaz Arcos RN RN ky1 Yannick Murphy RN RN tm6 Barbara Guzman ra3 Corrections: (The following items were deleted from the chart) 17:21 15:59 Chief complaint: Patient states: went to my PCP today to check my liver, later me1 the doctor called and said he was concerned about my potassium -- 2.1. Also having chest pains since yesterday tm6
--- NOTE | 2024-05-02 18:49 | P.HP ---
Certification for Inpatient Patient admitted to: Observation With expected LOS: <2 Midnights Practitioner: I am a practitioner with admitting privileges, knowledge of patient current condition, hospital course, and medical plan of care. Services: Services provided to patient in accordance with Admission requirements found in Title 42 Section 412.3 of the Code of Federal Regulations Patient History Date of Service: 05/02/24 Reason for admission: low potassium History of Present Illness: 58-year-old male presented from primary care office for abnormal labs. He was told he had a potassium of 2.1 and was told to come to the ER. He reports that he also had left-sided chest pain ongoing for the last 2 months. Reports poor appetite. Had a couple of episodes of diarrhea. Reports that he drinks 1 shot of whiskey daily. He has had issues with falls and weakness. He feels that he consumes enough fluids but does state appetite is poor. The patient does have history of chronic kidney disease, hypertension, liver cirrhosis secondary alcohol use as well as PTSD. He denies any recent fevers or chills or sick contact Allergies NSAIDS (Non-Steroidal Anti-Inflamma Allergy (Verified 01/24/23 11:41) UNK Home Medications: Amlodipine Besylate 1 tab PO DAILY 01/09/24 Atorvastatin Calcium 1 tab PO BEDTIME 01/09/24 Diclofenac Potassium 1 tab PO TID 01/09/24 Escitalopram Oxalate 1 tab PO DAILY 01/09/24 Fluticasone Propionate [Flonase Allergy Relief] 2 spray NS DAILY 01/09/24 Folic Acid 1 tab PO DAILY 01/09/24 Loratadine 1 tab PO DAILY PRN 01/09/24 Losartan Potassium 1 tab PO DAILY 01/09/24 Spironolactone 1 tab PO DAILY 01/09/24 Thiamine HCl 1 tab PO DAILY 01/09/24 methocarbamoL [Methocarbamol] 1 tab PO BID 01/09/24 Allopurinol 300 mg PO DAILY #30 tab 01/13/24 Colchicine [Colcrys *] 0.6 mg PO BID #10 tab 01/13/24 Famotidine [Pepcid*] 20 mg PO BID #60 tab 01/13/24 Hydrocodone 5/APAP 325 [Chancellor 5/325*] 1 tab PO Q6H PRN #30 tab 01/13/24 Melatonin 5 mg PO BEDTIME PRN PRN #30 tab 01/13/24 Metoprolol Tartrate [Lopressor*] 50 mg PO BID 6AM 6PM #60 tab 01/13/24 Pantoprazole [Protonix Tab*] 1 tab PO DAILY #30 tab 01/13/24 Thiamine HCl [Vitamin B-1*] 100 mg PO DAILY #30 tab 01/13/24 chlordiazePOXIDE HCl [Chlordiazepoxide HCl] 10 mg PO TID #60 tab 01/13/24 predniSONE [Deltasone] 20 mg PO BID #11 tab 01/13/24 Hydrocodone 10/APAP 325 [Chancellor 10/325] 1 tab PO Q6H PRN #30 tab 01/29/24 - Past Medical/Surgical History Diabetic: No -: Hypertension uncontrolled -: Cirrhosis -: Alcohol use disorder Psychosocial/ Personal History: Lives with at home, uses walker as baseline, reports daily alcohol use - Social History Alcohol use: Yes Review of Systems 10-point ROS is otherwise unremarkable Cardiovascular: Chest Pain Physical Examination - Physical Exam General: In no apparent distress, Oriented x3 HEENT: Atraumatic, Normocephalic Respiratory: Clear to auscultation bilaterally, Normal air movement Cardiovascular: Regular rate/rhythm Gastrointestinal: Distended Musculoskeletal: Other (left hand cannot make full fist, right shoulder dec ROM ) Neurological: Normal speech - Studies Laboratory Data (last 24 hrs) 05/02/24 05/02/24 05/02/24 16:21 16:21 16:21 WBC 10.20 Hgb 14.4 Hct 42.7 Plt Count 127 L PT 13.3 H INR 1.19 Sodium 131 L Potassium 2.1 L* BUN 14 Creatinine 2.82 H Glucose 146 H Magnesium 1.7 Total Bilirubin 1.1 H AST 155 H ALT 63 H Alkaline Phosphatase 116 Assessment and Plan - Problems (Diagnosis) (1) Hypokalemia Current Visit: Yes Status: Acute (2) Generalized weakness Current Visit: No Status: Acute - Plan 58-year-old male admitted for abnormal labs #hypokalemia --replace and recheck --replace Mg #chest pain --telemetry --trend cardiac enzymes --?costochondritis, chest wall tenderness on exam #liver cirrohsis #ETOH use --place on CIPA protocol #acute on CKD --await UA, gentle hydration --may need ct or renal US #transaminitis #falls #dizziness --PT OT consult --check orthostatics - Advance Directives Does patient have a Living Will: No Does patient have a Durable POA for Healthcare: No
[2024-05-02] MEDS ORDERED: LORazepam 2 MG/ML VIAL IV PRN (18:54)
[2024-05-02] MEDS ORDERED: HALOPERIDOL LACT 5 MG/ML INJ IM PRN (18:54)
[2024-05-02] MEDS ORDERED: FLUMAZENIL 0.1 MG/ML (5 mL VIAL) IV PRN (18:54)
[2024-05-02] MEDS: MAGNESIUM OXIDE 400 MG TAB PO SCH (18:56)
[2024-05-02 19:23] LABS: Anisocytosis 1+; Blood Morphology Comment NOTED (NOT SEEN); Platelet Estimate DECR; White Blood Cell Scan OK (OK)
[2024-05-02] MEDS: MORPHINE 2 MG/ML SYR IV ONE (20:15)
[2024-05-02] MEDS ORDERED: MORPHINE 2 MG/ML SYR ONE (20:19)
[2024-05-02 21:02] VITALS: BMI 27.8
[2024-05-02] MEDS: D5.45NS W/KCL 20MEQ 1,000 ML IV SCH (21:38)
[2024-05-02] MEDS: MELATONIN 5 MG TABLET PO SCH (21:53)
[2024-05-02 22:13] LABS: Troponin High Sensitivity 18.7 pg/mL (<58.9)
[2024-05-02 22:33] LABS: Specific Gravity 1.008 (1.005-1.030); Sqamous Epithelial <5 /HPF (None Seen); Urine Bacteria None Seen /HPF (<20); Urine Bilirubin NEGATIVE (Negative); Urine Blood 2+ (Negative); Urine Clarity Turbid (Clear); Urine Color Light-Yellow (Yellow); Urine Culture Reflex Order NOT NEEDED; Urine Glucose NEGATIVE (Negative); Urine Ketones NEGATIVE (Negative); Urine Microscopic Reflex YN ORDER UMIC; Urine Mucus Slight /HPF (None Seen); Urine Nitrite NEGATIVE (Negative); Urine Protein 1+ (Negative); Urine RBC <5 /HPF (None Seen); Urine Urobilinogen Normal (Normal); Urine WBC <5 /HPF (<5); Urine WBC Clump Rare /HPF (None Seen); Urine Yeast (Budding) Trace /HPF (None Seen); Urine pH 6.5 (5.0-7.0)
[2024-05-03] MEDS: MORPHINE 2 MG/ML SYR IV PRN (00:04)
[2024-05-03] MEDS: TRAZODONE 50 MG TABLET PO PRN (00:05)
[2024-05-03 05:00] LABS: Albumin 3.4 g/dL (3.4-5.0); Albumin/Globulin Ratio 0.9 (1.1-1.8); Anion Gap 11.2 mEq/L (5.0-15.0); Bilirubin Total 1.1 mg/dL (0.2-1.0); Globulin 3.7 g/dL (2.3-3.5); Magnesium 1.5 mg/dL (1.6-2.4); Phosphorus 1.9 mg/dL (2.5-4.9); Protein, Total 7.1 g/dL (6.4-8.2); Troponin High Sensitivity 17.4 pg/mL (<58.9)
[2024-05-03 05:03] LABS: Potassium 2.2 mEq/L (3.5-5.1)
[2024-05-03 05:21] LABS: Absolute Basophils 0.1 K/uL (0-0.5); Absolute Eosinophils 0.2 K/uL (0-0.5); Absolute Monocytes 0.7 K/uL (0.1-1.3); Absolute Neutrophil 3.8 K/uL (1.8-8.0); Eosinophils % 3.3 % (0-4.4); Hemoglobin 13.4 g/dL (13.6-17.9); Lymphocytes % 17.1 % (15.3-44.8); MCH 29.7 pg (27.0-35.0); MCHC 33.5 g/dL (32.0-36.0); MCV 88.8 fL (80-100); MPV 7.1 fL (7.6-11.3); Monocytes % 12.2 % (3.3-12.3); Neutrophils % 66.4 % (41.7-73.7); Nucleated Red Blood Cells % 0.1 % (0-0); Platelets 69 thou/uL (152-406)
[2024-05-03 05:22] LABS: Red Cell Distribution Width 20.2 % (12.1-15.2)
[2024-05-03] MEDS: POTASSIUM 25 MEQ EFFERV TAB PO ONE (05:42)
[2024-05-03] MEDS: KCL 20 MEQ/100 mL IVPB 20 MEQ/100 ML BAG IV SCH (05:42)
[2024-05-03] MEDS: THIAMINE HCL 100 MG TABLET PO SCH (09:00)
[2024-05-03] MEDS: MULTIVITAMIN TAB PO SCH (09:00)
[2024-05-03] MEDS: FOLIC ACID 1 MG TABLET PO SCH (09:00)
[2024-05-03] MEDS: POTASSIUM CL SA 10 MEQ TAB PO SCH (09:01)
[2024-05-03 12:20] LABS: Potassium 2.9 mEq/L (3.5-5.1); Troponin High Sensitivity 15.2 pg/mL (<58.9)
--- NOTE | 2024-05-03 13:31 | P.PN ---
Subjective Date of Service: 05/03/24 Chief Complaint: low potassium Patient is complaining of generalized bodily pains including chest pain. He denies any diarrhea currently. No vomiting. He admitted to drinking 1 shot of hard liquor twice a day. Patient stated he had a prolonged hospitalization in February 2024 for sepsis. Physical Examination - Vital Signs Temperature: 98.2 F Blood Pressure: 151/88 Pulse: 102 Respirations: 16 Pulse Ox (%): 97 - Studies Laboratory Data (last 24 hrs) 05/02/24 05/02/24 05/02/24 16:21 16:21 16:21 WBC 10.20 Hgb 14.4 Hct 42.7 Plt Count 127 L PT 13.3 H INR 1.19 Sodium 131 L Potassium 2.1 L* BUN 14 Creatinine 2.82 H Glucose 146 H Magnesium 1.7 Total Bilirubin 1.1 H AST 155 H ALT 63 H Alkaline Phosphatase 116 Assessment And Plan - Plan Physical examination General: Alert and oriented x3, NAD, HEENT: Anicteric sclera, eye patch on the right eye. Neck: Supple, no elevated JVD Heart: Heart sounds 1 and 2 normal, regular rhythm, normal rate, no pedal edema Lungs: Clear to auscultation bilaterally, adequate breath sounds bilaterally, no rhonchi or crackles. Chest wall is tender to palpation. Abdomen: Soft, nondistended, nontender, normal bowel sounds. Extremities: No tenderness, no deformity Skin: Normal skin turgor, no rash, no nodules or ulcers. Neuro: No focal motor deficit. Normal speech. Psychiatry: Normal mood, no agitation. Plan Hypokalemia Patient likely has potassium deficit. Continue to replace potassium IV and orally Replace magnesium and phosphorus as needed. Monitor BMP. Chest pain Chronic pain Likely musculoskeletal Patient reports history of fall with multiple rib fractures and has rib cage implants Troponin trended negative. Analgesics-IV morphine and Percocet as needed. Liver cirrohsis ETOH use Transaminitis Falls Falls and dizziness likely related to alcohol use. Patient also uses knee prosthesis. [facility] protocol Watch for alcohol withdrawal. Continue PT. Acute on CKD stage III Serum creatinine trended down. Hydrate with IV NS. Nephrology consult. DVT prophylaxis: Heparin SQ Advanced directive: Full code.
[2024-05-03] MEDS: Magnesium Sulfate 2gm IVPB 2 G/50 ML BAG IV ONE (14:19)
[2024-05-03] MEDS: Oxycodone HCl/Acetaminophen 5/325 MG TAB PO PRN (14:31)
[2024-05-03] MEDS: POTASSIUM PHOS IN 0.9 % NACL 15 MMOL/250 ML BAG IV SCH (16:49)
[2024-05-03] MEDS: Ringers Lactate 1,000 ML IV SCH (17:00)
[2024-05-03] MEDS: POTASSIUM CL SA 10 MEQ TAB PO ONE (17:00)
--- NOTE | 2024-05-03 17:08 | CON ---
Date of Consultation: 05/03/2024 Reason For Consultation: Elevated BUN and creatinine. History Of Present Illness: This is a 58-year-old gentleman with significant past medical history of cirrhosis, hypertension, hyperlipidemia, chronic kidney disease, status post acute kidney injury 2 y ears back, required dialysis per hepatorenal and sepsis. Then weaned from dialysis, that was at [facility] according to the patient. The patient came to the hospital as referred by his primary as his l ab was abnormal, potassium was down to 2.1. The patient complaining of decreased intake for the last couple of days. The patient still active alcohol. Upon arrival to the hospital, found to have elev ation in BUN and creatinine. For that reason, we have been consulted. The patient admitted that he has been taking diclofenac. Past Medical History: Includes: 1.Cirrhosis. 2.Hypertension. 3.Hyperlipidemia. 4.Chronic kidney disease, reviewing the record for the patient, the patient's creatinine back in Sep tember 1.4, GFR of 59. Allergies: NO KNOWN DRUG ALLERGY. Home Medications: Includes amlodipine, atorvastatin, diclofenac, loratadine, losartan, spironolacton e, colchicine, Pepcid, hydrocodone. Past Surgical History: Includes hemodialysis catheter placement and removal. Social History: Active alcohol, occasional smoker. Denied drugs abuse. Review of Systems: Head and Neck: No red eye. No ear pain. GI: No nausea, no vomiting. Has decreased intake. : No polyuria, no dysuria, no hematuria. Splicing Supervisor: Not applicable. Respiratory: No shortness of breath. Cardiovascular: No chest pain. Endocrine: No polydipsia. Skin: No rash. Physical Examination: Vital Signs: When I saw the patient, blood pressure 151/88, pulse of 102, afebrile. Chest: Clear to auscultation. Heart: S1, S2. Systolic murmur. Abdomen: Soft, nontender. Extremities: No edema. Neurologic: Alert, confused, no focality. Lab: Sodium 131, potassium 2.1, bicarb 30, BUN 14, creatinine 2.8. Calcium 8.5, magnesium 1.7. Alb umin 4.4. WBC 5.8, hemoglobin 13.4. Current Medications: The patient on include folic acid, Haldol, trazodone, magnesium, and morphine. Assessment And Plan: 1.Acute kidney injury, mostly secondary to prerenal, dehydration. I am going to start the patient o n hydration and we will follow up the patient. We will send for workup for the patient. 2.Hypokalemia secondary to poor intake. I am going to start supplement and we will monitor. 3.Hyponatremia, depletional, will start hydration. 4.Hypertension, controlled, optimal. Discontinue spironolactone and Lasix given acute kidney injury . We will follow up. 5.Altered mental status, mostly secondary to alcohol withdrawal. We will follow up with primary. Thank you Dr. Dela Cruz for allowing us to participate in the care of your patient. Time spent examinin g the patient [id number], reviewing data, lab and radiology, placing order, discussing the case with the patient, discussing the case with the steam brush operator including hospitalist and nursing staff mo re than 75 minutes. DIANA Voice ID: [id number] Report ID: [id number]
[2024-05-03 18:35] LABS: Sqamous Epithelial <5 /HPF (None Seen); Urine Bacteria <20 /HPF (<20); Urine Bilirubin NEGATIVE (Negative); Urine Blood 1+ (Negative); Urine Clarity Turbid (Clear); Urine Color Light-Yellow (Yellow); Urine Culture Reflex Order NOT NEEDED; Urine Glucose NEGATIVE (Negative); Urine Ketones NEGATIVE (Negative); Urine Microscopic Reflex YN ORDER UMIC; Urine Nitrite NEGATIVE (Negative); Urine Protein 1+ (Negative); Urine RBC <5 /HPF (None Seen); Urine Urobilinogen Normal (Normal); Urine WBC <5 /HPF (<5); Urine pH 6.5 (5.0-7.0)
--- NOTE | 2024-05-03 19:47 | RAD REPORT ---
EXAMINATION: US RENAL ULTRASOUND CLINICAL INDICATION: ABE TECHNIQUE: Real-time ultrasonography of the abdomen was performed. COMPARISON: No prior exam. FINDINGS: RIGHT KIDNEY: Right renal length measurement: 10.3 x 5.9 x 5.4 cm. Normal in echogenicity and size. N o calculus, solid mass or hydronephrosis. LEFT KIDNEY: Left renal length measurement: 11.8 x 6.0 x 4.2 cm. Normal in echogenicity and size. No calculus, solid mass or hydronephrosis. URINARY BLADDER: Incompletely distended without gross abnormality detected. ADDITIONAL FINDINGS: None. IMPRESSION: Unremarkable renal ultrasound.
[2024-05-04] MEDS: POTASSIUM CL 40 MEQ in NA CHLORIDE 0.9% 500 ML IV SCH (00:03)
[2024-05-04 05:07] LABS: Absolute Eosinophils 0.4 K/uL (0-0.5); Absolute Lymphocytes (CBC) 0.6 K/uL (0.7-4.9); Absolute Monocytes 0.5 K/uL (0.1-1.3); Absolute Neutrophil 3.2 K/uL (1.8-8.0); Basophils % 0.7 % (0-1.3); Eosinophils % 8.3 % (0-4.4); Hematocrit 37.2 % (39.6-49.0); Hemoglobin 12.3 g/dL (13.6-17.9); Lymphocytes % 13.2 % (15.3-44.8); MCH 30.3 pg (27.0-35.0); MCHC 33.2 g/dL (32.0-36.0); MCV 91.2 fL (80-100); MPV 7.6 fL (7.6-11.3); Monocytes % 10.3 % (3.3-12.3); Neutrophils % 67.5 % (41.7-73.7); Nucleated Red Blood Cells % 0.1 % (0-0); Platelets 48 thou/uL (152-406); RBC Red Blood Cell Count 4.08 M/uL (4.33-5.43); Red Cell Distribution Width 20.5 % (12.1-15.2)
[2024-05-04 05:38] LABS: Albumin/Globulin Ratio 0.9 (1.1-1.8); Anion Gap 8.7 mEq/L (5.0-15.0); Bilirubin Total 1.4 mg/dL (0.2-1.0); Globulin 3.3 g/dL (2.3-3.5); Magnesium 1.8 mg/dL (1.6-2.4); Phosphorus 1.6 mg/dL (2.5-4.9); Potassium 3.7 mEq/L (3.5-5.1); Protein, Total 6.3 g/dL (6.4-8.2); Thyroid Stimulating Hormone 1.58 uIU/mL (0.358-3.740); Uric Acid 3.1 mg/dL (3.5-7.2)
[2024-05-04] MEDS: POTASSIUM CL SA 10 MEQ TAB PO ONE (08:38)
[2024-05-04 09:13] VITALS: BP 137/90; TEMP 98.6
[2024-05-04 09:42] VITALS: O2SAT 98
--- NOTE | 2024-05-04 10:55 | P.DS ---
Admission Date: 05/03/24 Discharge Date: 05/04/24 Disposition: ROUTINE DISCHARGE Discharge Condition: FAIR Reason for Admission: low potassium Brief History of Present Illness: 58-year-old male presented from primary care office for abnormal labs. He was told he had a potassium of 2.1 and was told to come to the ER. He also reported left-sided chest pain ongoing for 2 months. He reported that he drinks 1 shot of whiskey daily and have had issues with falls. Patient has a history of chronic kidney disease, hypertension, liver cirrhosis secondary alcohol use as well as PTSD. Chest x-ray done in the emergency department was unremarkable. Patient was hospitalized for further management. Hospital Course: Patient admitted to the medical floor and the following medical problems addressed: Hypokalemia Potassium replaced IV and orally Phosphorus and magnesium also replaced. Chest pain Chronic pain Chest wall is tender to palpation Chest pain is like musculoskeletal Patient reports history of fall with multiple rib fractures and has rib cage implants Troponin trended negative. Chest pain managed with analgesics-IV morphine and Percocet as needed. Liver cirrohsis ETOH use Transaminitis Falls Falls and dizziness likely related to alcohol use. Patient also uses knee prosthesis. CIWA protocol initiated. Patient did not experience alcohol withdrawal symptoms. He was evaluated by PT. Acute on CKD stage III Patient hydrated with IV NS, serum creatinine trended down. Nephrology evaluated patient and assisted with management. Vital Signs/Physical Exam: Temp Pulse Resp BP Pulse Ox 98.6 F 104 H 16 137/90 97 05/04/24 08:00 05/04/24 08:00 05/04/24 09:52 05/04/24 08:00 05/04/24 09:52 General: Alert, In no apparent distress, Oriented x3 HEENT: Mucous membr. moist/pink Neck: Supple, JVD not distended Respiratory: Clear to auscultation bilaterally, Normal air movement Cardiovascular: Regular rate/rhythm, Normal S1 S2 Gastrointestinal: Normal bowel sounds, Soft and benign, Non-distended Musculoskeletal: No swelling Integumentary: No cyanosis Neurological: Normal strength at 5/5 x4 extr Laboratory Data at Discharge: WBC 4.70 thou/uL (4.3-10.9) 05/04/24 04:44 Hgb 12.3 g/dL (13.6-17.9) L D 05/04/24 04:44 Hct 37.2 % (39.6-49.0) L 05/04/24 04:44 Plt Count 48 thou/uL (152-406) L D 05/04/24 04:44 PT 13.3 SECONDS (9.4-12.5) H 05/02/24 16:21 INR 1.19 05/02/24 16:21 Sodium 136 mEq/L (136-145) D 05/04/24 04:44 Potassium 3.7 mEq/L (3.5-5.1) 05/04/24 04:44 BUN 11 mg/dL (7-18) 05/04/24 04:44 Creatinine 1.76 mg/dL (0.70-1.30) H 05/04/24 04:44 Glucose 115 mg/dL (74-106) H 05/04/24 04:44 Uric Acid 3.1 mg/dL (3.5-7.2) L 05/04/24 04:44 Phosphorus 1.6 mg/dL (2.5-4.9) L 05/04/24 04:44 Magnesium 1.8 mg/dL (1.6-2.4) 05/04/24 04:44 Total Bilirubin 1.4 mg/dL (0.2-1.0) H 05/04/24 04:44 AST 76 U/L (15-37) H 05/04/24 04:44 ALT 40 U/L (16-61) 05/04/24 04:44 Alkaline Phosphatase 90 U/L (45-117) 05/04/24 04:44 Lipase Cancelled 05/02/24 Unknown Home Medications: Trazodone HCl [Desyrel] 100 mg PO BEDTIME 05/02/24 Melatonin [Melatonin*] 10 mg PO BEDTIME 05/03/24 Folic Acid 1 mg PO DAILY #30 tab 05/04/24 Gabapentin 300 mg PO BEDTIME #30 cap 05/04/24 Magnesium Oxide [Mag 0X*] 400 mg PO DAILY #7 tab 05/04/24 Multivit,Ther Iron,Ca,FA & Min [Centrum Tablet*] 1 tab PO DAILY #30 tab 05/04/24 Oxycodone HCl/Acetaminophen [Percocet 5/325 Tab*] 1 tab PO Q6H PRN #20 tab 05/04/24 Thiamine HCl [Vitamin B-1*] 100 mg PO DAILY #30 tab 05/04/24 New Medications: Multivit,Ther Iron,Ca,FA & Min [Centrum Tablet*] 1 tab PO DAILY #30 tab Folic Acid 1 mg PO DAILY #30 tab Gabapentin 300 mg PO BEDTIME #30 cap Magnesium Oxide [Mag 0X*] 400 mg PO DAILY #7 tab Oxycodone HCl/Acetaminophen [Percocet 5/325 Tab*] 1 tab PO Q6H PRN #20 tab PRN Reason: Pain Scale 5-7 (Moderate) Thiamine HCl [Vitamin B-1*] 100 mg PO DAILY #30 tab Diet: Regular Activity: Fall precautions [facility]: [facility] [Primary Care Provider] - 1 Week Time spent managing pt's care (in minutes): 33
--- NOTE | 2024-05-07 10:59 | EKG ---
Test Date: 2024-05-02 Test Time: 16:09:51 Vba Programmer: NAYELY MEASUREMENT RESULTS: Intervals: Rate: 104 UT: 188 QRSD: 116 QT: 334 QTc: 439 [place]: P: 51 UT: 188 QRS: -75 T: 57 INTERPRETIVE STATEMENTS: Sinus tachycardia Left anterior fascicular block Abnormal ECG Compared to ECG 02/03/2024 11:57:40 No significant changes Electronically Signed On 05-07-24 10:52:49 LIPSTICK MOLDER by Martinez Thomas
== END 2024-05-04 12:10 | disposition home or self-care (01) | DRG 641 ==
LOC: ER 15:52 → ERHOLD 18:50 → 2ND 20:08 → OBSVTOIN 05-03 17:38
PROVIDERS: ADMIT Internal Medicine; ATTEND Internal Medicine
DX: E87.6 Hypokalemia (principal); N17.9 Acute kidney failure, unspecified; F43.10 Post-traumatic stress disorder, unspecified; I12.9 Hypertensive chronic kidney disease with stage 1 through stage 4 chronic kidney disease, or unspecified chronic kidney disease; N18.30 Chronic kidney disease, stage 3 unspecified; E87.1 Hypo-osmolality and hyponatremia; E86.0 Dehydration; G89.29 Other chronic pain; K70.30 Alcoholic cirrhosis of liver without ascites; K21.9 Gastro-esophageal reflux disease without esophagitis; I25.10 Atherosclerotic heart disease of native coronary artery without angina pectoris; F17.210 Nicotine dependence, cigarettes, uncomplicated; R74.01 Elevation of levels of liver transaminase levels; Z90.49 Acquired absence of other specified parts of digestive tract; Z79.52 Long term (current) use of systemic steroids; Z79.899 Other long term (current) drug therapy
CPT/HCPCS: 36415; 71045; 76770; 80048; 80053; 80069; 80076; 81001; 82533; 82550; 83735; 83880; 83930; 83935; 83970; 84100; 84132; 84300; 84443; 84484; 84550; 85025; 85610; 93005; 96361; 96365; 96366; 97116; 97161; 99285; G0378; J2270; J3475; J3480; J7040

== ENCOUNTER 2024-05-22 21:17 | Emergency (ER) | payer OTHER ==
[2024-05-22] MEDS ORDERED: ONDANSETRON 4 MG/2 ML VIAL ONE ×2 (21:38→23:39)
[2024-05-22] MEDS ORDERED: HYDROMORPHONE HCL 1 MG/ML INJ ONE ×2 (21:43→23:39)
[2024-05-22 22:01] LABS: Absolute Basophils 0.1 K/uL (0-0.5); Absolute Eosinophils 0.3 K/uL (0-0.5); Absolute Lymphocytes (CBC) 1.4 K/uL (0.7-4.9); Absolute Monocytes 1.1 K/uL (0.1-1.3); Absolute Neutrophil 4.9 K/uL (1.8-8.0); Eosinophils % 4.4 % (0-4.4); Hematocrit 40.1 % (39.6-49.0); Hemoglobin 13.4 g/dL (13.6-17.9); Lymphocytes % 17.6 % (15.3-44.8); MCH 30.9 pg (27.0-35.0); MCHC 33.4 g/dL (32.0-36.0); MCV 92.7 fL (80-100); MPV 6.7 fL (7.6-11.3); Monocytes % 14.3 % (3.3-12.3); Neutrophils % 62.7 % (41.7-73.7); Nucleated Red Blood Cells % 0.1 % (0-0); Platelets 82 thou/uL (152-406); RBC Red Blood Cell Count 4.32 M/uL (4.33-5.43); Red Cell Distribution Width 20.8 % (12.1-15.2)
--- NOTE | 2024-05-22 22:08 | RAD REPORT ---
EXAMINATION: CT HEAD WITHOUT CONTRAST CT CERVICAL SPINE WITHOUT CONTRAST CLINICAL INDICATION: Male, 58 years old. TRAUMA TECHNIQUE: Axial CT images from the skull base to the vertex without intravenous contrast. Axial CT i mages through the cervical spine were obtained without intravenous contrast. Sagittal and coronal reformatted images were created from the data set. Coronal and sagittal reformatted images were creat ed from the data set. One or more of the following dose reduction techniques were used: Automated exposure control, adjustment of the mA and/or kV according to patient size, and/or iterative reconstr uction. Unless otherwise specified, incidental findings do not require dedicated imaging follow-up. [id number]. COMPARISON: 01/08/2024 FINDINGS: Head: INTRACRANIAL: Small volume of subarachnoid hemorrhage at the left frontal lobe No hydrocephalus. No m ass effect or midline shift. No significant white matter disease VASCULATURE: No visualized abnormalities in the arteries or dural venous sinuses. SCALP/SKULL: Left frontal scalp/forehead laceration. SINUSES: The visualized paranasal sinuses and mastoid air cells are predominantly clear. Cervical spine: ALIGNMENT: The cervical spine has normal alignment without scoliosis or spondylolisthesis. BONE: Vertebral body heights are maintained. No aggressive osseous lesions. DEGENERATIVE CHANGES: Mild cervical spondylosis with evidence of neural foraminal narrowing bilateral ly. No high-grade central spinal stenosis. Neural foraminal narrowing is most pronounced at C4-5 and C5-6. SOFT TISSUE: No significant abnormalities in the soft tissue of the neck. The visualized lung apices are clear. IMPRESSION: 1. Small volume of subarachnoid hemorrhage at the left frontal lobe. No skull fracture identified. Sc alp laceration present. 2. No acute fracture or traumatic malalignment of the cervical spine. THIS REPORT CONTAINS FINDINGS THAT MAY BE CRITICAL TO PATIENT CARE. The emergent findings were commun icated to Dr. Lamar on 05/22/2024 10:02 PM.
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
[2024-05-22 22:58] LABS: Albumin 3.3 g/dL (3.4-5.0); Albumin/Globulin Ratio 0.8 (1.1-1.8); Anion Gap 11.9 mEq/L (5.0-15.0); Bilirubin Total 1.8 mg/dL (0.2-1.0); Globulin 4.3 g/dL (2.3-3.5); Potassium 2.9 mEq/L (3.5-5.1); Protein, Total 7.6 g/dL (6.4-8.2)
[2024-05-22 23:22] LABS: Anisocytosis 1+; Blood Morphology Comment NOTED (NOT SEEN); Burr Cells 2+; Macrocytosis 1+; Platelet Estimate DECR; Polychromasia 1+; White Blood Cell Scan OK (OK)
[2024-05-22 23:32] LABS: PT Prothrombin Time 13.6 SECONDS (9.4-12.5); PTT, Activated Partial Thromb 36.5 SECONDS (24.3-36.9); Protime INR 1.3
--- OUTSIDE RECORDS SUMMARY | 2024-05-23 02:44 | XMS REPORT | Continuity of Care Document ---
Author Name Unknown Address [address] [facility] [address] [id number] [facility] Address [address] [facility]. 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 Name Role Phone JANELL ROTEGA Primary Care Physician Unavailab ANDREW Campoverde Attending Clinician Unavailable ADNREW MONTANEZ Attending Clinician Unavailable BRENDEN HICKEY Attending Clinician UnavailBRENDEN Paul Attending Clinician Unavailjenna Mcbride MD, Davon Attending Clinician [phone] DAVON MCBRIDE Attending Clinician Unavailable Doctor Unassigned, [place] Attending Clinician U saleem Joy RN, Cielo Elder Attending Clinician Unavail able ARPIT RUST Attending Clinician Unavailab Zion Montoya DO Attending Clinician [phone] Tony Quiroz MD Attending Clinician + [phone] Alan Ballard DO Attending Clinician [phone] Lisa Turner MD Attending Clinician + [phone] Arpit Rust MD Attending Clinician [phone] Tj MURRAY, [place] Attending Clinician [phone] Zeynep Orozco MD Attending Clinician [phone] RADIOLOGY Attending Clinician Unavailable Radiology Attending Clinician Unavailable ABBI ALICIA Attending Clinician Unavailable ANDREW MONTANEZ Admitting Clinician Unavailable ALAN BALLARD Admitting Clinician Unavailable Alan Ballard DO Admitting Clinician JANELL ORTEGA Admitting Clinician Unavailable Payers Payer Name Policy Type Policy Number Effective Date Expirati on Date Source [facility] [id number] 2022 00:00:00 [facility] [id number] 2010 00:00:00 [facility] [id number] 2010 00:00:00 Problems Condition Name Condition Details Condition Category Status Onset Date Resolution Date Last Treatment Date Treating Clinician Comments Source Cardiomyop athy, unspecifie d type Cardiomyop athy, unspecifie d type Disease Active 07-12 00:00: 00 [facility] Other forms of dyspnea Other forms of dyspnea Disease Active 07-12 00:00: 00 [facility] Chest pain, unspecifie d type Chest pain, unspecifie d type Disease Active 07-12 00:00: 00 [facility] Hypotensio n Hypotensio n Disease Active 2022-04 00:00: 00 [facility] Alcoholic cirrhosis of liver with ascites Alcoholic cirrhosis of liver with ascites Disease Recurre nce 2022-04 00:00: 00 [facility] Allergies, Adverse Reactions, Alerts Allergy Name Allergy Type Status Severity Reaction(s) Onset Date Inactive Date Treating Clinician Comments Source NSAIDS (NON-GERMÁN ROIDAL ANTI-INF LAMMATOR Y DRUG) Drug Class Active Unknown-Cmnt 2022-04 00:00: 00 [facility] Nsaids (Non-Germán roidal Anti-Inf lammator y Drug) Propensi ty to adverse reaction s Active Unknown - See comments 2022-04 00:00: 00 [facility] NO KNOWN ALLERGIE S Drug Class Active [facility] Family History Family Member Diagnosis Comments Start Date Stop Date Sourc e Natural father Cancer Un[facility] Social History Social Habit Start Date Stop Date Quantity Comments Source History of tobacco use Passive smoker [facility] Alcoholic beverage intake 2023-11-04 00:00:00 2023-11-04 00:00:00 1 /d [facility] Alcohol intake 2023-07-13 00:00:00 2023-07-13 00:00:00 1 /d [facility] Tobacco use and exposure 2023-03-03 00:00:00 2023-03-03 00:00:00 Smokeless tobacco non-user [facility] History of Social function 2023-02-22 00:00:00 2023-02-22 00:00:00 [facility] Sex assigned at 1965 00:00:00 1965 00:00:00 [facility] Smoking Status Start Date Stop Date Source Tobacco smoking consumption unknown [facility] Ex-smoker 2023-03-03 00:00:00 2023-03-03 00:00:00 [facility] Medications Ordered Medication Name Filled Medication Name Start Date Stop Date Current Medication? Ordering Clinician Indication Dosage Frequency Signature (SIG) Comments Components Source HYDROcodone -acetaminop hen (NORCO) 10-325 mg tablet 1 tablet 11-04 07:00: 00 11-04 06:31 :00 No 1{tbl} 1 tablet, Oral, ONCE NOW, 1 dose, On 11/05/23 at 0200, Routine [facility] amoxicillin -clavulanat e (AUGMENTIN) 875-125 mg per tablet 1 tablet 11-04 07:00: 00 11-04 06:31 :00 No 1{tbl} 1 tablet, Oral, ONCE NOW, 1 dose, On 11/05/23 at 0200, Routine, Reason for Anti-Infec tive: Documented Infection, Documented Infection Site: Skin / Soft Tissue, Duration of Therapy: Once (ED) [facility] ondansetron (ZOFRAN (PF)) injection 4 mg 11-04 06:30: 00 11-04 05:33 :00 No 4mg 4 mg, Slow IV Push, ONCE, 1 dose, On 11/05/23 at 0130, CHE [facility] metoclopram mello HCl (REGLAN) injection 10 mg 11-04 06:15: 00 11-04 06:31 :00 No 10mg 10 mg, Slow IV Push, ONCE, 1 dose, On 11/05/23 at 0115, CHE [facility] morpHINE (4 mg/mL) injection 4 mg 11-04 05:30: 00 11-04 04:44 :00 No 4mg 4 mg, Slow IV Push, ONCE, 1 dose, On 11/05/23 at 0030, STAT [facility] iopamidol (ISOVUE 370-500 mL) injection 85 mL 11-04 04:45: 00 11-04 04:45 :00 No [id number] 85mL 85 mL, Intravenou s, ONCE, 1 dose, On Tue11/04/23 at 2345, Routine [facility] ondansetron (ZOFRAN (PF)) injection 4 mg 11-04 03:00: 00 11-04 03:02 :00 No 4mg 4 mg, Slow IV Push, ONCE, 1 dose, On Tue11/04/23 at 2200, [facility] morpHINE (4 mg/mL) injection 4 mg 11-04 03:00: 00 11-04 03:03 :00 No 4mg 4 mg, Slow IV Push, ONCE, 1 dose, On Tue11/04/23 at 2200, STAT [facility] amoxicillin -clavulanat e 875-125 mg per tablet 11-04 00:00: 00 Yes [id number] 1{tbl} Take 1 tablet by mouth every 12 (twelve) hours. [facility] traMADoL (ULTRAM) 50 mg tablet 11-04 00:00: 00 Yes [id number] 50mg Take 1 tablet by mouth every 6 (six) hours as needed for Pain (scale 7-10). Indication s: acute pain [facility] ondansetron (ZOFRAN) 4 mg tablet 11-04 00:00: 00 Yes [id number] 4mg Take 1 tablet by mouth every 8 (eight) hours as needed for Nausea and Vomiting (N/V). [facility] perflutren protein-A microsphr (OPTISON) injection 3 mL 08-29 17:45: 00 08-29 17:43 :00 No [id number] 3mL 3 mL, IV Push, ONCE, 1 dose, On Tue08/30/23 at 1245, Routine [facility] tc 99m-tetrofo smin (MYOVIEW) injection 41.8 millicurie 08-29 14:00: 00 08-29 13:55 :00 No [id number] 41.8mCi 41.8 millicurie , Intravenou s, ONCE, 1 dose, On Tue08/30/23 at 0900, Routine [facility] regadenoson (LEXISCAN) injection 0.4 mg 08-29 14:00: 00 08-29 14:04 :00 No [id number] .4mg 0.4 mg, IV Push, ONCE, 1 dose, On Tue08/30/23 at 0900, Routine, air crew member approving Restricted medication : DAVON MCBRIDE [facility] tc 99m-tetrofo smin (MYOVIEW) injection 15.8 millicurie 08-29 13:00: 00 08-29 12:56 :00 No [id number] 15.8mCi 15.8 millicurie , Intravenou s, ONCE, 1 dose, On Tue08/30/23 at 0800, Routine [facility] NaCl 0.9% (NS) injection 5 mL 2022-04 15:30: 00 03-10 18:22 :00 No 5mL 5 mL, Slow IV Push, ONCE, 1 dose, On Tue03/10/23 at 0930, Routine [facility] heparin 1,000 unit/mL (10 mL) - dialysis catheter care 2022-04 15:16: 28 Yes 2000U PRN - SEE INSTRUCTIO NS, Starting on Tue03/10/23 at 0916, Until Discontinu ed, Routine
For Priming of Ports:&nbs p; &n bsp; After initial saline flush, prime each port with heparin according to the priming volume listed on each catheter port for catheter lock.
[facility] Cholecalcif jeannie, Vitamin D3, 50 mcg (2,000 unit) capsule 2022-04 15:01: 52 Yes Take by mouth. [facility] cyanocobala min, vitamin B-12, 2,000 mcg Tab 2022-04 15:01: 52 Yes Take by mouth. [facility] DULoxetine 60 mg capsule 2022-04 15:01: 52 Yes 60mg Take 1 capsule by mouth in the morning. [facility] empaglifloz in 10 mg 2022-04 15:01: 52 Yes 10mg Take 1 tablet by mouth in the morning. [facility] furosemide (LASIX) 40 mg tablet 2022-04 15:01: 52 Yes 40mg Take 1 tablet by mouth in the morning. [facility] losartan 25 mg tablet 2022-04 15:01: 52 Yes 25mg Take 1 tablet by mouth in the morning. [facility] mirtazapine 15 mg tablet 2022-04 15:01: 52 Yes 15mg Take 1 tablet by mouth at bedtime. [facility] Pantoprazol e 40 mg delayed-rel ease suspension 2022-04 15:01: 52 Yes 40mg Take 40 mg by mouth in the morning. [facility] rosuvastati n 40 mg tablet 2022-04 15:01: 52 Yes 40mg Take 1 tablet by mouth at bedtime. [facility] spironolact one (ALDACTONE) 25 mg tablet 2022-04 15:01: 52 Yes 25mg Take 1 tablet by mouth in the morning. [facility] thiamine 100 mg tablet 2022-04 15:01: 52 Yes 100mg Take 1 tablet by mouth in the morning. [facility] metoprolol succinate XL 50 mg 24 hr tablet 2022-04 13:24: 06 03-10 00:00 :00 No 50mg Take 1 tablet by mouth in the morning. [facility] folic acid 0.8 mg Cap 2022-04 11:33: 32 03-10 00:00 :00 No Take by mouth. [facility] methocarbam oL 750 mg tablet 2022-04 00:00: 00 Yes [id number] 750mg Take 1 tablet by mouth 2 (two) times daily as needed for Pain (scale 1-3). [facility] propranoloL 20 mg tablet 2022-04 00:00: 00 Yes [id number] 20mg Take 1 tablet by mouth in the morning and 1 tablet in the evening. [facility] traZODone 50 mg tablet 2022-04 00:00: 00 Yes [id number] 50mg Take 1 tablet by mouth at bedtime. [facility] ipratropium -albuteroL 0.5 mg-3 mg(2.5 mg base)/3 mL nebulizer solution 2022-04 00:00: 00 Yes [id number] 3mL Inhale 3 mL 4 (four) times daily. [facility] lactulose 10 gram/15 mL solution 2022-04 00:00: 00 Yes [id number] 30mL Take 30 mL by mouth in the morning and 30 mL in the evening. [facility] nystatin 100,000 unit/gram ointment 2022-04 00:00: 00 Yes [id number] Apply to area(s) 2 (two) times daily. [facility] rifAXIMin 550 mg tablet 2022-04 00:00: 00 Yes [id number] 550mg Take 1 tablet by mouth in the morning and 1 tablet in the evening. [facility] foLIC acid 1 mg tablet 2022-04 00:00: 00 Yes [id number] 1mg Take 1 tablet by mouth in the morning. [facility] pregabalin (LYRICA) capsule 25 mg 2022-04 15:00: 00 Yes 25mg 25 mg, Oral, DAILY, First dose (after last modificati on) on Tue03/09/23 at 0900, Until Discontinu ed, Routine [facility] acetaminoph en (TYLENOL) tablet 650 mg 2022-04 14:35: 40 Yes 650mg 650 mg, Oral, Q6HPRN, Starting on Tue03/09/23 at 0835, Until Discontinu ed, Routine, Pain (scale 1-3) [facility] mirtazapine (REMERON) tablet 15 mg 2022-04 03:00: 00 Yes 15mg 15 mg, Oral, QHS, First dose on Tue03/08/23 at 2100, Until Discontinu ed, Routine [facility] hydrOXYzine (ATARAX) tablet 10 mg 2022-04 14:46: 24 Yes 10mg 10 mg, Oral, Q6HPRN, Starting on Tue03/08/23 at 0846, Until Discontinu ed, Routine, Itching, Anxiety, insomnia [facility] NaCl 0.9% (NS) injection 5 mL 2022-04 13:00: 00 03-08 13:00 :00 No 5mL 5 mL, Slow IV Push, ONCE, 1 dose, On Tue03/08/23 at 0700, Routine [facility] heparin 1,000 unit/mL (10 mL) - dialysis catheter care 2022-04 12:52: 50 Yes 2000U PRN - SEE INSTRUCTIO NS, Starting on Tue03/08/23 at 0652, Until Discontinu ed, Routine
For Priming of Ports:&nbs p; &n bsp; After initial saline flush, prime each port with heparin according to the priming volume listed on each catheter port for catheter lock.
[facility] methocarbam oL (ROBAXIN) tablet 750 mg 2022-04 03:36: 54 Yes 750mg 750 mg, Oral, BIDPRN, Starting on Tue03/07/23 at 2136, Until Discontinu ed, Routine, Muscle Spasms [facility] HYDROcodone -acetaminop hen (NORCO 5) 5-325 mg tablet 1 tablet 2022-04 03:32: 15 Yes 1{tbl} 1 tablet, Oral, Q6HPRN, Starting on Tue03/07/23 at 2132, Until Discontinu ed, Routine, Pain (scale 7-10) [facility] traZODone (DESYREL) tablet 50 mg 2022-04 03:00: 00 Yes 50mg 50 mg, Oral, QHS, First dose on Tue03/07/23 at 2100, Until Discontinu ed, Routine [facility] heparin (porcine) injection 5,000 Units 2022-04 02:00: 00 Yes 5000U 5,000 Units, Subcutaneo us, Q12H, First dose on Tue03/07/23 at 2000, Until Discontinu ed, Routine [facility] ipratropium -albuteroL (DUONEB) 0.5 mg-3 mg(2.5 mg base)/3 mL nebulizer solution 3 mL 2022-04 15:00: 00 Yes 3mL 3 mL, Inhalation , QID, First dose (after last modificati on) on Tue03/07/23 at 0900, Until Discontinu ed, Routine [facility] foLIC acid (FOLATE) tablet 1 mg 2022-04 15:00: 00 Yes 1mg 1 mg, Oral, DAILY, First dose on Tue03/06/23 at 0900, Until Discontinu ed, Routine [facility] pantoprazol e (PROTONIX) EC tablet 40 mg 2022-04 15:00: 00 Yes 40mg 40 mg, Oral, DAILY, First dose on 03/06/23 at 0900, Until Discontinu ed, Routine [facility] thiamine (VITAMIN B1) tablet 100 mg 2022-04 15:00: 00 Yes 100mg 100 mg, Oral, DAILY, First dose on 03/06/23 at 0900, Until Discontinu ed, Routine [facility] lactulose (CEPHULAC) solution 30 mL 2022-04 14:00: 00 Yes 30mL 30 mL, Oral, BID, First dose (after last modificati on) on 03/06/23 at 0800, Until Discontinu ed, Routine [facility] rosuvastati n (CRESTOR) tablet 10 mg 2022-04 03:00: 00 Yes 10mg 10 mg, Oral, QHS, First dose (after last modificati on) on 03/05/23 at 2100, Until Discontinu ed, Routine [facility] melatonin (MELATIN) tablet 6 mg 2022-04 03:00: 00 03-08 16:57 :30 No 6mg 6 mg, Oral, QHS, First dose (after last modificati on) on 03/05/23 at 2100, Until Discontinu ed, Routine [facility] rifAXIMin (XIFAXAN) tablet 550 mg 2022-04 02:00: 00 Yes 550mg 550 mg, Oral, BID, First dose on 03/05/23 at 2000, Until Discontinu ed, Routine
Reason for Anti-Infec tive: Empiric Non-Surgic al Prophylaxi s
Durat ion of therapy: 5 days
Sp ecific indication : HE [facility] propranoloL (INDERAL) tablet 20 mg 2022-04 02:00: 00 Yes 20mg 20 mg, Oral, BID, First dose on 03/05/23 at 2000, Until Discontinu ed, Routine [facility] lactulose (CEPHULAC) solution 30 mL 2022-04 02:00: 00 03-06 13:29 :57 No 30mL 30 mL, Enteral, BID, First dose (after last modificati on) on 03/05/23 at 2000, Until Discontinu ed, Routine [facility] heparin 1,000 unit/mL (10 mL) - dialysis catheter care 2022-04 20:02: 57 03-06 13:29 :57 No 2000U PRN - SEE INSTRUCTIO NS, Starting on 03/05/23 at 1402, Until 03/06/23 at 0729, Routine
For Priming of Ports:&nbs p; &n bsp; After initial saline flush, prime each port with heparin according to the priming volume listed on each catheter port for catheter lock.
[facility] melatonin (MELATIN) tablet 6 mg 2022-04 03:00: 00 03-05 15:10 :20 No 6mg 6 mg, Oral, QHS, First dose (after last modificati on) on Tue03/04/23 at 2100, Until Discontinu ed, Routine [facility] acetaminoph en (TYLENOL) 160 mg/5 mL oral liquid 650 mg 2022-04 21:12: 26 03-09 14:36 :27 No 650mg 650 mg, Oral, Q6HPRN, Starting on Tue03/04/23 at 1512, Until Tue03/09/23 at 0836, Routine, Pain (scale 4-6), Temp > 38.5 C [facility] iopamidol (ISOVUE 370-500 mL) injection 80 mL 2022-04 19:02: 00 03-04 19:02 :00 No [id number] 80mL 80 mL, Intravenou s, ONCE, 1 dose, On Tue03/04/23 at 1315, Routine [facility] KCL (KLOR-CON M20) tablet 20 mEq 2022-04 17:45: 00 03-04 18:11 :00 No 20meq 20 mEq, Oral, ONCE, 1 dose, On Tue03/04/23 at 1145, Routine [facility] folic acid (FOLATE) 1 mg/mL oral solution 1 mg 2022-04 15:00: 00 03-05 15:10 :20 No 1mg 1 mg, Enteral, DAILY, First dose on Tue03/04/23 at 0900, Until Discontinu ed, Routine [facility] hydrOXYzine (ATARAX) tablet 10 mg 2022-04 13:10: 48 03-08 14:46 :34 No 10mg 10 mg, Oral, Q6HPRN, Starting on Tue03/04/23 at 0710, Until Tue03/08/23 at 0846, Routine, Itching, insomnia [facility] rosuvastati n (CRESTOR) tablet 10 mg 2022-04 03:00: 00 03-05 15:10 :20 No 10mg 10 mg, Oral, QHS, First dose (after last modificati on) on Tue03/03/23 at 2100, Until Discontinu ed, Routine [facility] melatonin (MELATIN) tablet 3 mg 2022-04 03:00: 00 03-04 13:11 :40 No 3mg 3 mg, Oral, QHS, First dose (after last modificati on) on Tue03/03/23 at 2100, Until Discontinu ed, Routine [facility] propranoloL (INDERAL) 20 mg/5 mL (4 mg/mL) solution 10 mg 2022-04 02:00: 00 03-05 15:10 :20 No 10mg 10 mg, Enteral, BID, First dose (after last modificati on) on Tue03/03/23 at 2000, Until Discontinu ed, Routine [facility] propranoloL (INDERAL) 20 mg/5 mL (4 mg/mL) solution 10 mg 2022-04 15:45: 00 03-03 21:14 :53 No 10mg 10 mg, Oral, BID, First dose on Tue03/03/23 at 0945, Until Discontinu ed, Routine [facility] NaCl 0.9% (NS) injection 5 mL 2022-04 15:30: 00 03-03 16:28 :00 No 5mL 5 mL, Slow IV Push, ONCE, 1 dose, On Tue03/03/23 at 0930, Routine [facility] heparin 1,000 unit/mL (10 mL) - dialysis catheter care 2022-04 15:27: 18 03-06 13:29 :57 No 2000U PRN - SEE INSTRUCTIO NS, Starting on Tue03/03/23 at 0927, Until Tue03/06/23 at 0729, Routine
For Priming of Ports:&nbs p; &n bsp; After initial saline flush, prime each port with heparin according to the priming volume listed on each catheter port for catheter lock.
[facility] nystatin (MYCOSTATIN ) ointment 2022-04 15:00: 00 Yes Topical, BID, First dose on Faustian 03/03/23 at 0900, Until Discontinu ed, Routine [facility] rifAXIMin (XIFAXAN) 20 mg/mL oral suspension 550 mg 2022-04 02:00: 00 03-05 15:10 :20 No 550mg 550 mg, Enteral, BID, First dose (after last modificati on) on Tue03/02/23 at 1999, Until Discontinu ed, Routine
Reason for Anti-Infec tive: Empiric Non-Surgic al Prophylaxi s
Durat ion of therapy: 5 days [facility] lactulose (CEPHULAC) solution 30 mL 2022-04 02:00: 00 03-05 15:10 :20 No 30mL 30 mL, Enteral, QID, First dose (after last modificati on) on Tue03/02/23 at 2000, Until Discontinu ed, Routine [facility] NaCl 0.9% (NS) injection 5 mL 2022-04 22:00: 00 03-02 23:25 :00 No 5mL 5 mL, Slow IV Push, ONCE, 1 dose, On Tue03/02/23 at 1600, Routine [facility] heparin 1,000 unit/mL (10 mL) - dialysis catheter care 2022-04 21:48: 26 03-03 15:40 :07 No 2000U PRN - SEE INSTRUCTIO NS, Starting on Tue03/02/23 at 1548, Until Tue03/03/23 at 0940, Routine
For Priming of Ports:&nbs p; &n bsp; After initial saline flush, prime each port with heparin according to the priming volume listed on each catheter port for catheter lock.
[facility] heparin 1,000 unit/mL injection 2022-04 21:00: 18 03-02 21:00 :18 No PRN, Starting on Tue03/02/23 at 1500, Until Tue03/02/23 at 1500, Routine, Intra-op [facility] Cholecalcif jeannie, Vitamin D3, 50 mcg (2,000 unit) capsule 2022-04 20:48: 54 Yes Take by mouth. [facility] cyanocobala min, vitamin B-12, 2,000 mcg Tab 2022-04 20:48: 54 Yes Take by mouth. [facility] DULoxetine 60 mg capsule 2022-04 20:48: 54 Yes 60mg Take 1 capsule by mouth in the morning. [facility] empaglifloz in 10 mg 2022-04 20:48: 54 Yes 10mg Take 1 tablet by mouth in the morning. [facility] folic acid 0.8 mg Cap 2022-04 20:48: 54 Yes Take by mouth. [facility] furosemide (LASIX) 40 mg tablet 2022-04 20:48: 54 Yes 40mg Take 1 tablet by mouth in the morning. [facility] losartan 25 mg tablet 2022-04 20:48: 54 Yes 25mg Take 1 tablet by mouth in the morning. [facility] metoprolol succinate XL 50 mg 24 hr tablet 2022-04 20:48: 54 Yes 50mg Take 1 tablet by mouth in the morning. [facility] mirtazapine 15 mg tablet 2022-04 20:48: 54 Yes 15mg Take 1 tablet by mouth at bedtime. [facility] Pantoprazol e 40 mg delayed-rel ease suspension 2022-04 20:48: 54 Yes 40mg Take 40 mg by mouth in the morning. [facility] rosuvastati n 40 mg tablet 2022-04 20:48: 54 Yes 40mg Take 1 tablet by mouth at bedtime. [facility] spironolact one (ALDACTONE) 25 mg tablet 2022-04 20:48: 54 Yes 25mg Take 1 tablet by mouth in the morning. [facility] thiamine 100 mg tablet 2022-04 20:48: 54 Yes 100mg Take 1 tablet by mouth in the morning. [facility] lidocaine 1% (PF) (XYLOCAINE) injection 2022-04 20:32: 55 03-02 20:32 :55 No PRN, Starting on Tue03/02/23 at 1432, Until Tue03/02/23 at 1432, Routine, Intra-op [facility] FENTanyl PF (SUBLIMAZE (PF)) injection 2022-04 20:32: 42 03-02 20:47 :05 No Slow IV Push, PRN, Starting on Tue03/02/23 at 1432, Until Tue03/02/23 at 1447, Routine, Intra-op [facility] midazolam (VERSED) injection 2022-04 20:32: 23 03-02 20:32 :23 No IV Push, PRN, Starting on Tue03/02/23 at 1432, Until Tue03/02/23 at 1432, Routine, Intra-op [facility] midodrine (PROAMATINE ) tablet 10 mg 2022-04 12:00: 00 03-03 15:39 :09 No 10mg 10 mg, Enteral, Q8H, First dose (after last modificati on) on Tue03/02/23 at 0600, Until Discontinu ed, Routine [facility] midodrine (PROAMATINE ) tablet 15 mg 2022-04 04:00: 00 03-02 09:53 :15 No 15mg 15 mg, Enteral, Q8H, First dose (after last modificati on) on Tue03/01/23 at 2200, Until Discontinu ed, Routine [facility] rifAXIMin (XIFAXAN) 20 mg/mL oral suspension 550 mg 2022-04 02:00: 00 03-03 01:56 :04 No 550mg 550 mg, Oral, BID, First dose on Tue03/01/23 at 2000, Until Discontinu ed, Routine
Reason for Anti-Infec tive: Empiric Non-Surgic al Prophylaxi s
Durat ion of therapy: 5 days [facility] NaCl 0.9% (NS) injection 5 mL 2022-04 21:15: 00 03-01 21:50 :00 No 5mL 5 mL, Slow IV Push, ONCE, 1 dose, On Tue03/01/23 at 1515, Routine [facility] heparin 1,000 unit/mL (10 mL) - dialysis catheter care 2022-04 21:00: 05 03-02 21:50 :21 No 2000U PRN - SEE INSTRUCTIO NS, Starting on Tue03/01/23 at 1500, Until Tue03/02/23 at 1550, Routine
For Priming of Ports:&nbs p; &n bsp; After initial saline flush, prime each port with heparin according to the priming volume listed on each catheter port for catheter lock.
[facility] barium sulfate-NO CHARGE- (VARIBAR NECTOR) 40 % (w/v) oral suspension 30 mL 2022-04 19:30: 00 03-01 19:35 :00 No [id number] 30mL 30 mL, Oral, ONCE, 1 dose, On Tue03/01/23 at 1330, Routine [facility] lactulose (CEPHULAC) solution 30 mL 2022-04 18:00: 00 03-03 01:56 :04 No 30mL 30 mL, Oral, QID, First dose (after last modificati on) on Tue03/01/23 at 1200, Until Discontinu ed, Routine [facility] rifAXIMin (XIFAXAN) tablet 550 mg 2022-04 02:00: 00 03-01 16:26 :10 No 550mg 550 mg, Oral, BID, First dose on Tue02/28/23 at 2000, Until Discontinu ed, Routine
Reason for Anti-Infec tive: Empiric Therapy for Suspected Infection< br>Empiric Therapy Site: Other
O ther site: HE
Dura tion of therapy: 5 days [facility] octreotide (SANDOSTATI N) 500 mcg in NaCl 0.9% (NS) 100 mL infusion 2022-04 17:00: 00 03-01 22:37 :31 No 50ug/h 50 mcg/hr (10 mL/hr), IV Infusion, CONTINUOUS , Starting on Tue02/28/23 at 1100 [facility] ceFEPIme (MAXIPIME) 1,000 mg in NaCl [...] y
Durat ion of therapy: 5 days [facility] ceFEPIme (MAXIPIME) 2,000 mg in NaCl 0.9% (NS) 100 mL MINI-BAG 2022-04 16:15: 00 02-27 19:48 :00 No 2000mg 2,000 mg, IV Piggyback, ONCE, 1 dose, On Tue02/27/23 at 1015, Administer over 30 Minutes, 100 mL
Reas on for Anti-Infec tive: Empiric Therapy for Suspected Infection< br>Empiric Therapy Site: Respirator y
Durat ion of therapy: 5 days [facility] sodium phosphate 30 mmol in NaCl 0.9% (NS) 250 mL piggyback 2022-04 14:45: 00 02-27 18:39 :00 No 30mmol 30 mmol, IV Piggyback, ONCE, 1 dose, On 02/27/23 at 0845, Administer over 4 Hours, 250 mL [facility] cefTRIAXone (ROCEPHIN) 1,000 mg in NaCl [...] br>Duratio n of therapy: 5 days [facility] acetaminoph en (TYLENOL) tablet 650 mg 2022-04 04:04: 36 03-04 21:12 :18 No 650mg 650 mg, Enteral, Q6HPRN, Starting on Tue02/26/23 at 2304, Until Tue03/04/23 at 1512, Routine, Temp > 38 C [facility] lanolin alcohol-mo- w.pet-ceres (EUCERIN) cream 2022-04 03:30: 48 Yes Topical, PRN, Starting on Tue02/26/23 at 2230, Until Discontinu ed, Routine, Dermatitis /Rash, Near genital area [facility] rosuvastati n (CRESTOR) tablet 40 mg 2022-04 02:00: 00 03-03 01:56 :04 No 40mg 40 mg, Oral, QHS, First dose (after last modificati on) on Tue02/26/23 at 2100, Until Discontinu ed, Routine [facility] artificial tears(hypro mellose) (ISOPTO-TEA RS) 0.5 % ophthalmic drops 1 Drop 2022-04 21:16: 50 Yes 1[drp] 1 Drop, Both Eyes, PRN, Starting on Tue02/26/23 at 1616, Until Discontinu ed, Routine, Dry eyes [facility] pantoprazol e (PROTONIX) 2 mg/mL oral suspension 40 mg 2022-04 14:00: 00 03-05 15:10 :20 No 40mg 40 mg, Enteral, DAILY, First dose on Tue02/26/23 at 0900, Until Discontinu ed, Routine [facility] lactulose (CEPHULAC) solution 30 mL 2022-04 13:00: 00 03-01 14:09 :36 No 30mL 30 mL, Enteral, QID, First dose (after last modificati on) on Tue02/26/23 at 0800, Until Discontinu ed, Routine [facility] dexMEDEtomi dine 400 mcg in 0.9 % [...] allowed dose, contact prescriber .
[facility] NaCl 0.9% (NS) IV infusion 1,000 mL 2022-04 23:15: 00 02-27 17:23 :24 No 1000mL at 250 mL/hr, CRRT Circuit, CONTINUOUS , Starting on Tue02/25/23 at 1815, Until Tue02/27/23 at 1123, Routine [facility] midodrine (PROAMATINE ) tablet 20 mg 2022-04 11:00: 00 03-02 02:32 :00 No 20mg 20 mg, Enteral, Q8H, First dose (after last modificati on) on Tue02/25/23 at 0600, Until Discontinu ed, Routine [facility] NORepinephr ine 4 mg in 0.9% NaCl [...] at maximum allowed dose, contact prescriber .
[facility] albumin (PLASBUMIN) 25 % injection 87.5 g 2022-04 04:45: 00 02-26 01:00 :00 No 1g/kg 87.5 g (1 g/kg ?87.5 kg), IV Infusion, ONCE, 1 dose, On Tue02/24/23 at 2345, 400 mL
Cara cation: HEPATORENA L SYNDROME (DIAGNOSIS )
Comme nts: Albumin 1 g/kg/day for 2 days (up to a maximum of 100 g/day) [facility] CRRT fluid dialysate (PRISMASATE 4K) K 4.0-Ca 2.5, Mg 1.5, HCO3 32, NA 140, CL 113, LACTATE 3, DEX 110, Osm 300 2022-04 03:15: 00 02-27 17:23 :24 No 2800mL/ h 2,800 mL/hr, [employer] Circuit, CONTINUOUS , Starting on Tue02/24/23 at 2215, Until Tue02/27/23 at 1123, Routine [facility] midodrine (PROAMATINE ) tablet 10 mg 2022-04 03:00: 00 02-25 04:29 :59 No 10mg 10 mg, Enteral, Q8H, First dose (after last modificati on) on Faustina 02/24/23 at 2200, Until Discontinu ed, Routine [facility] CRRT fluid dialysate (PRISMASATE 4K) K 4.0-Ca 2.5, Mg 1.5, HCO3 32, NA 140, CL 113, LACTATE 3, DEX 110, Osm 300 2022-04 01:00: 00 02-25 03:00 :40 No 4000mL/ h 4,000 mL/hr, CRRT Circuit, CONTINUOUS , Starting on Tue02/24/23 at 2000, Until Tue02/24/23 at 2200, Routine [facility] NaCl 0.9% (NS) IV infusion 1,000 mL 2022-04 01:00: 00 02-25 23:05 :02 No 1000mL at 200 mL/hr, CR[employer] Circuit, CONTINUOUS , Starting on Tue02/24/23 at 2000, Until Tue02/25/23 at 1805, Routine [facility] thiamine (VITAMIN B1) tablet 100 mg 2022-04 14:00: 00 03-05 15:10 :20 No 100mg 100 mg, Enteral, DAILY, First dose (after last modificati on) on Tue02/24/23 at 0900, Until Discontinu ed, [facility] foLIC acid (FOLATE) tablet 1 mg 2022-04 14:00: 00 03-03 21:14 :13 No 1mg 1 mg, Enteral, DAILY, First dose (after last modificati on) on Tue02/24/23 at 0900, Until Discontinu ed [facility] midodrine (PROAMATINE ) tablet 20 mg 2022-04 19:54: 00 02-24 22:29 :47 No 20mg 20 mg, Enteral, Q8H, First dose (after last modificati on) on Tue02/23/23 at 1500, Until Discontinu ed, Routine [facility] albumin (PLASBUMIN) 25 % injection 87.5 g 2022-04 19:34: 00 02-23 20:50 :33 No 1g/kg 87.5 g (1 g/kg ?87.5 kg), IV Infusion, ONCE, 1 dose, On Tue02/23/23 at 1445, 400 mL
Cara cation: HEPATORENA L SYNDROME (DIAGNOSIS )
Comme nts: Albumin 1 g/kg/day for 2 days (up to a maximum of 100 g/day) [facility] lactulose (CEPHULAC) solution 30 mL 2022-04 19:00: 00 02-26 01:25 :38 No 30mL 30 mL, Enteral, TID, First dose (after last modificati on) on Tue02/23/23 at 1400, Until Discontinu ed, [facility]ine [facility] mid[facility] ([facility]INE ) tablet 5 mg 2022-04 19:00: 00 02-23 19:51 :03 No 5mg 5 mg, Enteral, TID, First dose (after last modificati on) on Tue02/23/23 at 1400, Until Discontinu ed, Routine [facility] midodrine (PROAMATINE ) tablet 5 mg 2022-04 13:00: 00 02-23 17:39 :19 No 5mg 5 mg, Oral, TID, First dose on Tue02/23/23 at 0800, Until Discontinu ed, Routine [facility] NaCl 0.9% (NS) injection 5 mL 2022-04 13:00: 00 02-23 14:02 :00 No 5mL 5 mL, Slow IV Push, ONCE, 1 dose, On Tue02/23/23 at 0800, Routine [facility] cefTRIAXone (ROCEPHIN) 1,000 mg in NaCl 0.9% [...] Abdominal< br>Duratio n of therapy: 5 days [facility] octreotide (SANDOSTATI N) injection 100 mcg 2022-04 19:00: 00 02-24 23:03 :09 No 100ug 100 mcg, Subcutaneo us, TID, First dose on Tue02/22/23 at 1400, Until Discontinu ed, Routine
Indicatio n: Hepatorena l Syndrome [facility] NORepinephr ine 4 mg in 0.9% [...] intravenou s vasopresso r at a time.
[facility] QUEtiapine (SEROQUEL) tablet 25 mg 2022-04 01:00: 00 02-24 19:38 :58 No 25mg 25 mg, Oral, BID, First dose on Tue02/21/23 at 2000, Until Discontinu ed, Routine [facility] dexMEDEtomi dine 200 mcg in 0.9 [...] at maximum allowed dose, contact prescriber .
[facility] propofoL IV infusion 2022-04 22:25: 53 [...] vials should be discarded after 12 hours.
[facility] etomidate (AMIDATE) injection 10 mg 2022-04 22:00: 00 02-21 21:16 :00 No 10mg 10 mg, Slow IV Push, ONCE, 1 dose, On Tue02/21/23 at 1700, Routine [facility] succinylcho line (QUELICIN) injection 120 mg 2022-04 22:00: 00 02-21 21:16 :00 No 120mg 120 mg, IV Push, ONCE, 1 dose, On Tue02/21/23 at 1700, Routine [facility] heparin 1,000 unit/mL injection 2,800 Units 2022-04 21:46: 24 03-03 15:40 :07 No 2800U 2,800 Units, Slow IV Push, PRN - SEE INSTRUCTIO NS, Starting on Tue02/21/23 at 1646, Until Faustina 03/03/23 at 0940, Routine, for post HD hep lock [facility] etomidate (AMIDATE) injection 2022-04 21:07: 00 02-22 00:01 :33 No Slow IV Push, ONCE INTRA PROCEDURE, Starting on Tue02/21/23 at 1607, Until Discontinu ed, Routine, Intra-op [facility] succinylcho line (QUELICIN) injection 2022-04 21:07: 00 02-22 00:01 :33 No IV Push, ONCE INTRA PROCEDURE, Starting on Tue02/21/23 at 1607, Until Discontinu ed, Routine, Intra-op [facility] lactulose (CEPHULAC) solution 30 mL 2022-04 19:00: 00 02-23 17:39 :19 No 30mL 30 mL, Enteral, TID, First dose on Tue02/21/23 at 1400, Until Discontinu ed, Routine [facility] flumazeniL (ROMAZICON) injection 0.3 mg 2022-04 18:15: 00 02-21 17:27 :00 No .3mg 0.3 mg, IV Push, ONCE, 1 dose, On Tue02/21/23 at 1315, CHE
Fa culty member approving Restricted medication : TONY QUIROZ [facility] flumazeniL (ROMAZICON) injection 0.2 mg 2022-04 18:00: 00 02-21 17:14 :00 No .2mg 0.2 mg, IV Push, ONCE, 1 dose, On Tue02/21/23 at 1300, STAT
Fa culty member approving Restricted medication : TONY QUIROZ [facility] LORazepam (ATIVAN) injection 2 mg 2022-04 16:00: 00 02-21 16:39 :00 No 2mg 2 mg, Slow IV Push, ONCE, 1 dose, On Tue02/21/23 at 1100, Routine [facility] sulfur hexafluorid e microsphr (LUMASON) injection 5 mL 2022-04 15:30: 00 02-21 15:30 :00 No [id number] 5mL 5 mL, Intravenou s, ONCE, 1 dose, On Tue02/21/23 at 1030, Routine
air crew member approving Restricted medication : MARIO GARZA [facility] hydrOXYzine (ATARAX) tablet 10 mg 2022-04 09:53: 27 03-03 01:56 :04 No 10mg 10 mg, Oral, Q6HPRN, Starting on Tue02/21/23 at 0453, Until Tue03/02/23 at 1956, Routine, Itching [facility] ondansetron (ZOFRAN (PF)) injection 4 mg 2022-04 03:03: 54 03-06 13:29 :57 No 4mg 4 mg, Slow IV Push, Q6HPRN, Nausea and Vomiting (N/V), Starting on Tue02/20/23 at 2203
Do ses of ondansetro n 16 mg and above need to be administer ed via IV piggyback. For Dose >=24mg ECG monitoring is advisable.
[facility] lactulose (CEPHULAC) solution 45 mL 2022-04 01:00: 00 02-21 05:12 :01 No 45mL 45 mL, Oral, TID, First dose (after last modificati on) on Tue02/20/23 at 2000, Until Discontinu ed, Routine [facility] albumin (PLASBUMIN) 25 % injection 93.5 g 2022-04 14:15: 00 02-21 01:00 :00 No 1g/kg 93.5 g (1 g/kg ?93.5 kg), IV Infusion, ONCE, 1 dose, On Tue02/20/23 at 0915, 400 mL
Cara cation: HEPATORENA L SYNDROME (DIAGNOSIS )
Comme nts: Albumin 1 g/kg/day for 2 days (up to a maximum of 100 g/day) [facility] D5W IV infusion 1,000 mL 2022-04 [...] 140 mml/L and patient's Na is 121)
[facility] lactulose (CEPHULAC) solution 15 mL 2022-04 13:00: 00 02-20 18:05 :41 No 15mL 15 mL, Oral, TID, First dose (after last modificati on) on 02/20/23 at 0800, Until Discontinu ed, Routine [facility] melatonin (MELATIN) tablet 3 mg 2022-04 05:30: 00 02-26 02:42 :34 No 3mg 3 mg, Oral, QHS, First dose on 02/20/23 at 0030, Until Discontinu ed, Routine [facility] rosuvastati n (CRESTOR) tablet 40 mg 2022-04 02:00: 00 02-26 06:24 :54 No 40mg 40 mg, Oral, QHS, First dose on 02/19/23 at 2100, Until Discontinu ed, Routine [facility] D5W IV infusion 1,000 mL 2022-04 [...] 140 mml/L and patient's Na is 121)
[facility] CRRT fluid dialysate (PRISMASATE 4K) K 4.0-Ca 2.5, Mg 1.5, HCO3 32, NA 140, CL 113, LACTATE 3, DEX 110, Osm 300 2022-04 21:30: 00 02-24 17:25 :11 No 2400mL/ h 2,400 mL/hr, CRRT Circuit, CONTINUOUS , Starting on 02/19/23 at 1630, Until Faustina 02/24/23 at 1225, Routine [facility] NORepinephr ine 4 mg in [...] intravenou s vasopresso r at a time.
[facility] albumin (PLASBUMIN) 25 % injection 93.5 g 2022-04 15:00: 00 02-20 12:00 :00 No 1g/kg 93.5 g (1 g/kg ?93.5 kg), IV Infusion, ONCE, 1 dose, On 02/19/23 at 1000, 400 mL
Cara cation: HEPATORENA L SYNDROME (DIAGNOSIS )
Comme nts: Albumin 1 g/kg/day for 2 days (up to a maximum of 100 g/day) [facility] furosemide (LASIX) injection 80 mg 2022-04 15:00: 00 02-19 19:42 :00 No 80mg 80 mg, Slow IV Push, ONCE, 1 dose, On 02/19/23 at 1000, Routine [facility] midodrine (PROAMATINE ) tablet 5 mg 2022-04 14:15: 00 02-19 18:23 :31 No 5mg 5 mg, Oral, Q8H, First dose on 02/19/23 at 0915, Until Discontinu ed, Routine [facility] pantoprazol e (PROTONIX) EC tablet 40 mg 2022-04 14:00: 00 02-26 02:42 :34 No 40mg 40 mg, Oral, DAILY, First dose on 02/19/23 at 0900, Until Discontinu ed, Routine [facility] foLIC acid (FOLATE) tablet 1 mg 2022-04 14:00: 00 02-23 17:39 :19 No 1mg 1 mg, Oral, DAILY, First dose on 02/19/23 at 0900, Until Discontinu ed [facility] thiamine (VITAMIN B1) tablet 100 mg 2022-04 14:00: 00 02-23 17:39 :19 No 100mg 100 mg, Oral, DAILY, First dose on 02/19/23 at 0900, Until Discontinu ed, Routine [facility] magnesium sulfate in water 2 gram/50 mL (4 %) infusion 2 g 2022-04 13:30: 00 02-19 15:20 :00 No 2g 2 g, IV Piggyback, Administer over 60 Minutes, ONCE, 1 dose, On 02/19/23 at 0830, Routine [facility] heparin (porcine) injection 5,000 Units 2022-04 13:00: 00 02-23 00:21 :58 No 5000U 5,000 Units, Subcutaneo us, Q12H, First dose on 02/19/23 at 0800, Until Discontinu ed, Routine [facility] lactulose (CEPHULAC) solution 15 mL 2022-04 13:00: 00 02-20 06:44 :06 No 15mL 15 mL, Oral, BID, First dose on 02/19/23 at 0800, Until Discontinu ed, Routine [facility] ceFEPIme (MAXIPIME) 1,000 mg in NaCl 0.9% [...] Abdominal< br>Duratio n of therapy: 72 hours [facility] furosemide (LASIX) injection 40 mg 2022-04 11:00: 00 02-19 10:23 :00 No 40mg 40 mg, Slow IV Push, ONCE, 1 dose, On 02/19/23 at 0600, Routine [facility] folic acid 0.8 mg Cap 2022-04 01:32: 29 Yes Take by mouth. [facility] rosuvastati n 40 mg tablet 2022-04 01:32: 29 Yes 40mg Take 1 tablet by mouth at bedtime. [facility] thiamine 100 mg tablet 2022-04 01:32: 29 Yes 100mg Take 1 tablet by mouth in the morning. [facility] Cholecalcif jeannie, Vitamin D3, 50 mcg (2,000 unit) capsule 2022-04 01:31: 38 Yes Take by mouth. [facility] cyanocobala min, vitamin B-12, 2,000 mcg Tab 2022-04 01:31: 38 Yes Take by mouth. [facility] DULoxetine 60 mg capsule 2022-04 01:31: 38 Yes 60mg Take 1 capsule by mouth in the morning. [facility] empaglifloz in 10 mg 2022-04 01:31: 38 Yes 10mg Take 1 tablet by mouth in the morning. [facility] furosemide (LASIX) 40 mg tablet 2022-04 01:31: 38 Yes 40mg Take 1 tablet by mouth in the morning. [facility] losartan 25 mg tablet 2022-04 01:31: 38 Yes 25mg Take 1 tablet by mouth in the morning. [facility] metoprolol succinate XL 50 mg 24 hr tablet 2022-04 01:31: 38 Yes 50mg Take 1 tablet by mouth in the morning. [facility] mirtazapine 15 mg tablet 2022-04 01:31: 38 Yes 15mg Take 1 tablet by mouth at bedtime. [facility] Pantoprazol e 40 mg delayed-rel ease suspension 2022-04 01:31: 38 Yes 40mg Take 40 mg by mouth in the morning. [facility] spironolact one (ALDACTONE) 25 mg tablet 2022-04 01:31: 38 Yes 25mg Take 1 tablet by mouth in the morning. [facility] Vital Signs Vital Name Observation Time Observation Value Comments S cassandra Systolic blood pressure 2023-11-05 06:31:00 162 mm[Hg] [facility] Diastolic blood pressure 2023-11-05 06:31:00 98 mm[Hg] [facility] Heart rate 2023-11-05 06:31:00 103 /min [facility] Body temperature 2023-11-05 06:31:00 37.44 [facility] Respiratory rate 2023-11-05 06:31:00 18 /min [facility] Oxygen saturation in Arterial blood by Pulse oximetry 2023-11-05 06:31:00 97 /min [facility] Body height 2023-11-05 01:46:00 175.3 cm [facility] Body weight 2023-11-05 01:46:00 88.451 kg [facility] BMI 2023-11-05 01:46:00 28.80 kg/m2 [facility] Systolic blood pressure 2023-07-13 20:35:00 123 mm[Hg] [facility] Diastolic blood pressure 2023-07-13 20:35:00 72 mm[Hg] [facility] Heart rate 2023-07-13 20:35:00 84 /min [facility] Body temperature 2023-07-13 20:35:00 37.06 [facility] Respiratory rate 2023-07-13 20:35:00 19 /min [facility] Body height 2023-07-13 20:35:00 177.8 cm [facility] Body weight 2023-07-13 20:35:00 93.016 kg [facility] BMI 2023-07-13 20:35:00 29.42 kg/m2 [facility] Oxygen saturation in Arterial blood by Pulse oximetry 2023-07-13 20:35:00 97 /min [facility] Systolic blood pressure 2023-03-10 19:24:00 101 mm[Hg] [facility] Diastolic blood pressure 2023-03-10 19:24:00 61 mm[Hg] [facility] Heart rate 2023-03-10 19:24:00 101 /min [facility] Body temperature 2023-03-10 19:24:00 36.28 [facility] Respiratory rate 2023-03-10 19:24:00 18 /min [facility] Body weight 2023-03-10 19:24:00 77.6 kg [facility] BMI 2023-03-10 19:24:00 25.25 kg/m2 [facility] Oxygen saturation in Arterial blood by Pulse oximetry 2023-03-10 14:31:00 97 /min [facility] Body height 2023-03-01 02:00:00 175.3 cm [facility] Systolic blood pressure 2023-03-04 17:13:00 142 mm[Hg] [facility] Diastolic blood pressure 2023-03-04 17:13:00 75 mm[Hg] [facility] Heart rate 2023-03-04 17:13:00 78 /min [facility] Body temperature 2023-03-04 17:13:00 37.11 [facility] Respiratory rate 2023-03-04 17:13:00 18 /min [facility] Oxygen saturation in Arterial blood by Pulse oximetry 2023-03-04 17:13:00 96 /min [facility] Body weight 2023-03-03 19:30:00 86.5 kg [facility] BMI 2023-03-03 19:30:00 28.15 kg/m2 [facility] Body height 2023-03-01 02:00:00 175.3 cm [facility] Procedures Procedure Date / Time Performed Performing Clinician Source CT TRAUMA THORAX W CONTRAST 2023-11-05 04:16:45 Andrew Montanez [facility] CT TRAUMA THORACIC SPINE WO CONTRAST 2023-11-05 04:16:45 nAdrew Montanez [facility] CT TRAUMA ABDOMEN PELVIS W CONTRAST 2023-11-05 04:16:45 Andrew Montanez [facility] CT TRAUMA LUMBAR SPINE WO CONTRAST 2023-11-05 04:16:45 Andrew Montanez [facility] CT MAXILLOFACIAL/MANDIBLE WO CONTRAST 2023-11-05 04:15:40 Andrew Montanez [facility] CT TRAUMA CERVICAL SPINE WO CONTRAST 2023-11-05 04:15:40 Andrew Montanez [facility] XR KNEE 3 VW RIGHT 2023-11-05 02:46:21 Andrew Montanez [facility] URINALYSIS 2023-11-05 02:30:00 Andrew Montanez [facility] LIPASE 2023-11-05 02:24:00 Andrew Montanez [facility] MAGNESIUM 2023-11-05 02:24:00 Andrew Montanez [facility] COMP. METABOLIC PANEL ([id number]) 2023-11-05 02:24:00 Andrew Montanez [facility] CBC WITH DIFF 2023-11-05 02:24:00 Andrew Montanez [facility] TRANSTHORACIC ECHO (TTE) COMPLETE W/ CONTRAST 2023-08-30 15:25:00 Jose, [facility] MYOCARDIUM PERFUSION STRESS AND REST 2023-08-30 14:40:00 Jose, [facility] MYOCARDIUM PERFUSION STRESS AND REST 2023-08-30 14:40:00 Jose, [facility] MYOCARDIUM PERFUSION STRESS AND REST 2023-08-30 14:40:00 Jose, [facility] MYOCARDIUM PERFUSION STRESS AND REST 2023-08-30 14:40:00 Jose, [facility] REFERRAL- REQUEST/RESPONSE 2023-06-21 06:01:00 Doctor Unassigned, [place] [facility] REFERRAL- REQUEST/RESPONSE 2023-06-03 06:01:00 Doctor Unassigned, [place] [facility] ADVANCE DIRECTIVE 2023-03-16 06:01:00 Doctor Laurel ssigned, [place] [facility] MAGNESIUM 2023-03-10 09:42:00 Jayme Seay [facility] BASIC METABOLIC PANEL (NA, K, CL, CO2, GLUCOSE, BUN, CREATININE, CA) 2023-03-10 09:42:00 [facility] 2023-03-10 09:42:00 Jayme Seay [facility] MAGNESIUM 2023-03-09 11:08:00 Jayme Seay [facility] BASIC METABOLIC PANEL (NA, K, CL, CO2, GLUCOSE, BUN, CREATININE, CA) 2023-03-09 11:08:00 Jayme Seay [facility] CBC WITH DIFF 2023-03-09 11:08:00 Jayme Seay [facility] COMP. METABOLIC PANEL ([id number]) 2023-03-05 09:46:00 Christopher Heck [facility] CBC WITH DIFF 2023-03-05 09:46:00 Christopher Heck [facility] BLOOD CULTURE SCREEN 2023-03-05 00:38:00 Daysi Rapp [facility] BLOOD CULTURE SCREEN 2023-03-05 00:31:00 Daysi Rapp [facility] CT STROKE ANGIOGRAM HEAD 2023-03-04 19:07:53 Lisa Turner [facility] CT STROKE ANGIOGRAM NECK 2023-03-04 19:07:53 Lisa Turner [facility] CT STROKE HEAD WO CONTRAST 2023-03-04 19:06:48 Lisa Turner [facility] TROPONIN I 2023-03-04 18:49:00 Lisa Turner [facility] BASIC METABOLIC PANEL (NA, K, CL, CO2, GLUCOSE, BUN, CREATININE, CA) 2023-03-04 18:49:00 Analia Rapp [facility] CBC WITHOUT DIFF 2023-03-04 18:49:00 Lisa Turner [facility] PROTHROMBIN TIME / INR 2023-03-04 18:49:00 [facility] 2023-03-04 18:49[facility]00 [facility] INDIRECT ANTIGLOBULIN TEST 2023-03-04 18:49:00 Christopher Heck [facility] POCT GLUCOSE (AUTOMATED) 2023-03-04 18:43:00 [facility] 2023-03-04 11:12:00 Analia Rapp [facility] BASIC METABOLIC PANEL (NA, K, CL, CO2, GLUCOSE, BUN, CREATININE, CA) 2023-03-04 11:12[facility]23-03-04 11:12[facility]OS[facility] 2023-03-04 11:12:[address] [facility] PHOSPHORUS 2023-03-04 11:12:[facility] 2023-03-04 11:12:[address] [facility] BASIC METABOLIC PANEL (NA, K, CL, CO2, GLUCOSE, BUN, CREATININE, CA) 2023-03-04 11:12:00 Analia Rapp [facility] CBC WITH DIFF 2023-03-04 11:12:00 DionteNoniAnalia [facility] XR KUB 2023-03-03 09:03:00 LoghinMc [facility] XR KUB 2023-03-03 09:03:[facility] 2023-03-03 08:46:00 Loghin, [facility] XR KUB 2023-03-03 08:46:[facility] 2023-03-03 07:38:00 Loghin [facility] XR KUB 2023-03-03 07:38:00 Loghin [facility] XR ABDOMEN 1 VW 2023-03-03 05:28:00 DionteNoniAnalia [facility] XR ABDOMEN 1 VW 2023-03-03 05:28:00 Dionte Analia [facility] PROTHROMBIN TIME / INR 2023-03-02 19:10:00 Gibran guardado [facility] / INR 2023-03-02 19:10:00 Gibran guardado [facility] IRON PANEL 2023-03-02 10:36:00 Carlos Vincent [facility] FERRITIN SERUM 2023-03-02 10:36:00 Carlos Vincent [facility] CBC WITH DIFF 2023-03-02 10:36:00 Carlos Vincent [facility] BASIC METABOLIC PANEL (NA, K, CL, CO2, GLUCOSE, BUN, CREATININE, CA) 2023-03-02 10:36:00 Carlos Vincent [facility] MAGNESIUM 2023-03-02 10:36:00 Carlos Vincent [facility] PHOSPHORUS 2023-03-02 10:36:00 Vincent, Carlos Doran [facility] PHOSPHORUS 2023-03-02 10:36:00 Vincent, Carlos Doran [facility] MAGNESIUM 2023-03-02 10:36:00 Vincent, Carlos Doran [facility] FERRITIN SERUM 2023-03-02 10:36:00 Vincent, Carlos Doran [facility] BASIC METABOLIC PANEL (NA, K, CL, CO2, GLUCOSE, BUN, CREATININE, CA) 2023-03-02 10:36:00 Vincent, Carlos Doran [facility] IRON PANEL 2023-03-02 10:36:00 Vincent, Carlos Doran [facility] CBC WITH DIFF 2023-03-02 10:36:00 Vincent, Carlos Doran [facility] XR CHEST 1 2023-03-02 06:52:00 Roger Chan [facility] XR CHEST 1 VW 2023-03-02 06:52:00 Roger Chan [facility] CBC WITHOUT DIFF 2023-03-01 23:03:00 VincentCarlos [facility] CBC WITHOUT DIFF 2023-03-01 23:03:00 VincentCarlos [facility] FL MODIFIED BARIUM SWALLOW 2023-03-01 20:00:00 Sincere Arellano [facility] FL MODIFIED BARIUM SWALLOW 2023-03-01 20:00:00 Sincere Arellano [facility] TRANSFUSE PACKED RBC 2023-03-01 14:50:00 Yusuf Green [facility] TRANSFUSE PACKED RBC 2023-03-01 14:50:00 Yusuf Green [facility] PREPARE PACKED RBC 2023-03-01 14:31:00 [facility] PREPARE PACKED RBC 2023-03-01 14:31:00 Yusuf Green mmad [facility] AMMONIA, PLASMA 2023-03-01 11:20:00 Elfego Saenz [facility] AMMONIA, PLASMA 2023-03-01 11:20:00 Elfego Saenz [facility] CBC WITH DIFF 2023-03-01 10:47:00 VincentCarlos lehman [facility] BASIC METABOLIC PANEL (NA, K, CL, CO2, GLUCOSE, BUN, CREATININE, CA) 2023-03-01 10:47:00 Carlos Vincent [facility] MAGNESIUM 2023-03-01 10:47:00 VincentCarlos lehman [facility] MAGNESIUM 2023-03-01 10:47:00 VincentCarlos [facility] BASIC METABOLIC PANEL (NA, K, CL, CO2, GLUCOSE, BUN, CREATININE, CA) 2023-03-01 10:47:00 VincentCarlos lehman [facility] CBC WITH DIFF 2023-03-01 10:47:00 Carlos Vincent [facility] CBC WITH DIFF 2023-02-28 09:36:00 Abigail Chavez [facility] MAGNESIUM 2023-02-28 09:36:00 [facility] COMP. METABOLIC PANEL ([id number]) 2023-02-28 09:36:00 [facility] / INR 2023-02-28 09:36:[address] [facility] MAGNESIUM 2023-02-28 09:36:00 [facility] COMP. METABOLIC PANEL ([id number]) 2023-02-28 09:36:00 Abigail Chavez [facility] CBC WITH DIFF 2023-02-28 09:36:00 Abigail Chavez [facility] PROTHROMBIN TIME / INR 2023-02-28 09:36:00 [place] CBC WITHOUT DIFF 2023-02-28 01:06:00 [facility] CBC WITHOUT DIFF 2023-02-28 01:06:00 [facility] TRANSFUSE PACKED RBC 2023-02-27 21:27:00 Rhoda Severino [facility] TRANSFUSE PACKED RBC 2023-02-27 21:27:00 Rhoda Severino [facility] PREPARE PACKED RBC 2023-02-27 21:19:05 [facility] 2023-02-27 21:19:05 Rh[facility] PHOSPHORUS 2023-02-27 19:13:00 Marcie Trujillo [facility] ABORH CONFIRMATION (LAB ONLY) 2023-02-27 19:13:00 Zion Vila [facility] PHOSPHORUS 2023-02-27 19:13:00 Marcie Trujillo [facility] ABORH CONFIRMATION (LAB ONLY) 2023-02-27 19:13:00 Julito [facility] HB ABO GROUPING 2023-02-27 18:39:00 Rhoda Severino [facility] HB ABO GROUPING 2023-02-27 18:39:00 Rhoda Severino [facility] SPUTUM CULTURE 2023-02-27 17:28:00 Rhoda Severino [facility] SPUTUM CULTURE 2023-02-27 17:28:00 Rhoda Severino [facility] ABDOMEN LIMITED 2023-02-27 15:43:53 Brian Chavez [facility] US ABDOMEN LIMITED 2023-02-27 15:43:53 Brian Chavez [facility] FIBRINOGEN 2023-02-27 14:44:00 Abigail Chavez [facility] ACTIVATED PARTIAL THRMPLAS NBA 2023-02-27 14:44:00 Abigail Chavez [facility] D-DIMER 2023-02-27 14:44:00 Abigail Chavez [facility] DIFF CONSULT BY PATHOLOGIST 2023-02-27 14:44:00 Abigail Chavez [facility] CBC WITH DIFF 2023-02-27 14:44:00 Abigail Chavez [facility] DIFF CONSULT INTERPRETATION 2023-02-27 14:44:00 [facility] DIFF CONSULT BY PATHOLOGIST 2023-02-27 14:44:00 Abigail Chavez [facility] CBC WITH DIFF 2023-02-27 14:44:00 Abigail Chavez [facility] D-DIMER 2023-02-27 14:44:00 [facility] ACTIVATED PARTIAL THRMPLAS NBA 2023-02-27 14:44:00 Abigail Chavez [facility] FIBRINOGEN 2023-02-27 14:44:00 Abigail Chavez [facility] DIFF CONSULT INTERPRETATION 2023-02-27 14:44:00 [facility] CBC WITH DIFF 2023-02-27 09:25:00 Elfego Saenz [facility] MAGNESIUM 2023-02-27 09:25:00 Elfego Saenz [facility] PHOSPHORUS 2023-02-27 09:25:00 Elfego Saenz [facility] COMP. METABOLIC PANEL ([id number]) 2023-02-27 09:25:00 Abigail Chavez [facility] PROTHROMBIN TIME / INR 2023-02-27 09:25:00 [place] BILI UNCONJUGATED/BILI CONJUG 2023-02-27 09:25:00 Elfego Saenz [facility] PHOSPHORUS 2023-02-27 09:25:00 Elfego Saenz [facility] MAGNESIUM 2023-02-27 09:25:00 Elfego Saenz [facility] BILI UNCONJUGATED/BILI CONJUG 2023-02-27 09:25:00 Elfego Saenz [facility] COMP. METABOLIC PANEL ([id number]) 2023-02-27 09:25:00 Abigail Chavez [facility] CBC WITH DIFF 2023-02-27 09:25:00 Elfego Saenz [facility] PROTHROMBIN TIME / INR 2023-02-27 09:25:00 Ying Saenz [facility] XR CHEST 1 VW 2023-02-27 05:16:00 Yusuf Greenshoupneftali [facility] XR CHEST 1 VW 2023-02-27 05:16:00 [facility] AC PANEL 20 + LACTIC ACID 2023-02-27 03:56:00 Peter Gus wu [facility] AC PANEL 20 + LACTIC ACID 2023-02-27 03:56:00 Gus Green [facility] MAGNESIUM 2023-02-26 11:18:00 [facility] COMP. METABOLIC PANEL ([id number]) 2023-02-26 11:18:00 Abigail Chavez [facility] MAGNESIUM 2023-02-26 11:18:00 [facility] COMP. METABOLIC PANEL ([id number]) 2023-02-26 11:18:00 Abigail Chavez [facility] CBC WITH DIFF 2023-02-26 11:13:00 Abigail Chavez [facility] CBC WITH DIFF 2023-02-26 11:13:00 Abigail Chavez [facility] SPUTUM CULTURE 2023-02-26 04:05:00 [facility] SP[facility] 2023-02-26 04:05:00 [facility] BLOOD CULTURE SCREEN 2023-02-25 23:28:00 Kaleigh Chavez [facility] BLOOD CULTURE SCREEN 2023-02-25 23:28:00 Kaleigh Chavez [facility] BLOOD CULTURE SCREEN 2023-02-25 23:17:00 Kaleigh Chavez [facility] CBC WITHOUT DIFF 2023-02-25 23:17:00 Rhoda Severino [facility] BLOOD CULTURE SCREEN 2023-02-25 23:17:00 Kaleigh Chavez [facility] CBC WITHOUT DIFF 2023-02-25 23:17:00 Severino, [facility] ACUTE CARE ARTERIAL BLOOD GAS 2023-02-25 16:06:00 Maycol [facility] ACUTE CARE ARTERIAL BLOOD GAS 2023-02-25 16:06:00 Maycol [facility] XR CHEST 1 VW 2023-02-25 15:40:00 [facility]W 2023-02-25 15:40:00 Rhoda Severino [facility] CBC WITH DIFF 2023-02-25 10:32:00 Abigail Chavez [facility] MAGNESIUM 2023-02-25 10:32:00 [facility] COMP. METABOLIC PANEL ([id number]) 2023-02-25 10:32:00 [facility] PHOSPHORUS 2023-02-25 10:32:00 [facility] PHOSPHORUS 2023-02-25 10:32:00 [facility] MAGNESIUM 2023-02-25 10:32:00 Scott [facility] COMP. METABOLIC PANEL ([id number]) 2023-02-25 10:32:00 [facility] CBC WITH DIFF 2023-02-25 10:32:00 Abigail Chavez [facility] BASIC METABOLIC PANEL (NA, K, CL, CO2, GLUCOSE, BUN, CREATININE, CA) 2023-02-24 18:11:00 [facility] BASIC METABOLIC PANEL (NA, K, CL, CO2, GLUCOSE, BUN, CREATININE, CA) 2023-02-24 18:11:00 [facility] BASIC METABOLIC PANEL (NA, K, CL, CO2, GLUCOSE, BUN, CREATININE, CA) 2023-02-24 09:21:00 [facility] CBC WITH DIFF 2023-02-24 09:21:00 Abigail Chavez [facility] MAGNESIUM 2023-02-24 09:21:00 Abigail Chavez [facility] COMP. METABOLIC PANEL ([id number]) 2023-02-24 09:21:00 [facility] PHOSPHORUS 2023-02-24 09:21:00 [facility] PH[facility]US 2023-02-24 09:21:00 [facility] MAGNESIUM 2023-02-24 [facility] (NA, K, CL, CO2, GLUCOSE, BUN, CREATININE, CA) 2023-02-24 09:21:00 [facility] COMP. METABOLIC PANEL ([id number]) 2023-02-24 09:21:00 [facility] CBC WITH DIFF 2023-02-24 09:21:00 Abigail Chavez [facility] CBC WITH DIFF 2023-02-23 08:35:00 [facility] MAGN[facility] 2023-02-23 08:35:00 [facility] COMP. METABOLIC PANEL ([id number]) 2023-02-23 08:35:00 [facility] MAGNESIUM 2023-02-23 08:35:00 [facility] COMP. METABOLIC PANEL ([id number]) 2023-02-23 08:35:00 [facility] CBC WITH DIFF 2023-02-23 08:35:00 Abigail Chavez [facility] AC PANEL 20 + LACTIC ACID 2023-02-22 21:51:00 Rasmusse shea [facility] AC PANEL 20 + LACTIC ACID 2023-02-22 21:51:00 Rasmusse shea [facility] AC PANEL 20 + LACTIC ACID 2023-02-22 16:21:00 [facility] + LACTIC ACID 2023-02-22 16:21:00 Kim Lee [facility] HIT - AB 2023-02-22 15:18:00 [facility] EXTRA SST HOLD FOR ARUP 2023-02-22 15:18:00 [facility] HIT - AB 2023-02-22 15:18:00 [facility] EXTRA SST HOLD FOR [facility]UP 2023-02-22 15:18:00 [facility] CBC WITHOUT DIFF 2023-02-22 10:07:00 Reanna Francis or [facility] MAGNESIUM 2023-02-22 10:07:00 Yovana Francis [facility] COMP. METABOLIC PANEL ([id number]) 2023-02-22 10:07:00 Kim Francis [facility] PROTHROMBIN TIME / INR 2023-02-22 10:07:00 Kim Francis [facility] MAGNESIUM 2023-02-22 10:07:00 Yovana Francis [facility] COMP. METABOLIC PANEL ([id number]) 2023-02-22 10:07:00 Kim Francis [facility] CBC WITHOUT DIFF 2023-02-22 10:07:00 Reanna Francis or [facility] PROTHROMBIN TIME / INR 2023-02-22 10:07:00 Kim Francis [facility] ACUTE CARE ARTERIAL BLOOD GAS 2023-02-21 22:48:00 John Arellano [facility] ACUTE CARE ARTERIAL BLOOD GAS 2023-02-21 22:48:00 John Arellano [facility] XR KUB 2023-02-21 22:37:00 Jonathan Engle [facility] XR KUB 2023-02-21 22:37:00 Jonathan Engle [facility] XR CHEST 1 VW 2023-02-21 22:34:00 Jonathan Engle [facility] XR CHEST 1 VW 2023-02-21 22:34:00 Jonathan Engle [facility] INTUBATION 2023-02-21 21:08:00 Ute Spencer Un [facility] INTUBATION 2023-02-21 21:08:00 Ute Spencer [facility] AC PANEL 20 + LACTIC ACID 2023-02-21 20:24:00 Ham Chan [facility] AC PANEL 20 + LACTIC ACID 2023-02-21 20:24:00 Ham Chan [facility] AC PANEL 20 + LACTIC ACID 2023-02-21 17:09:00 Jonathan Guillen [facility] AC PANEL 20 + LACTIC ACID 2023-02-21 17:09:00 Jonathan Guillen [facility] HB ECG ROUTINE & RHYTHM STRIP 2023-02-21 15:29:31 [place] & RHYTHM STRIP 2023-02-21 15:29:31 [place] TRANSTHORACIC ECHO (TTE) COMPLETE W/ CONTRAST 2023-02-21 15:28:25 [facility] TRANSTHORACIC ECHO (TTE) COMPLETE W/ CONTRAST 2023-02-21 15:28:25 Tiff [place] XR CHEST 1 VW 2023-02-21 11:49:00 Elfego Saenz [facility] XR CHEST 1 VW 2023-02-21 11:49:00 Elfego Saenz [facility] CBC WITH DIFF 2023-02-21 10:30:00 Elfego Saenz [facility] BASIC METABOLIC PANEL (NA, K, CL, CO2, GLUCOSE, BUN, CREATININE, CA) 2023-02-21 10:30:00 [place]iff [place] HEPATIC FUNCTION PANEL ([id number]) (ALB,T.PRO,BILI T,BU/BC,ALT,AST,ALK PHOS) 2023-02-21 10:30:00 Elfego Saenz [facility] PROTHROMBIN TIME / INR 2023-02-21 10:30:00 [place]ing [place] HEPATIC FUNCTION PANEL ([id number]) (ALB,T.PRO,BILI T,BU/BC,ALT,AST,ALK PHOS) 2023-02-21 10:30:00 Elfego Saenz [facility] BASIC METABOLIC PANEL (NA, K, CL, CO2, GLUCOSE, BUN, CREATININE, CA) 2023-02-21 10:30:00 Elfego Saenz [facility] CBC WITH DIFF 2023-02-21 10:30:00 Elfego Saenz [facility] PROTHROMBIN TIME / INR 2023-02-21 10:30:00 [place] XR KUB 2023-02-20 23:05:00 Justa Roche [facility] XR KUB 2023-02-20 23:05:00 Justa Roche bryon [facility] XR KUB 2023-02-20 22:55:00 Sincere Arellano [facility] XR KUB 2023-02-20 22:55:00 Sincere Arellano [facility] XR CHEST 1 VW 2023-02-20 22:49:00 Sincere Arellano [facility] XR CHEST 1 VW 2023-02-20 22:49:00 Sincere Arellano [facility] CT HEAD WO CONTRAST 2023-02-20 20:54:12 Sincere Arellano [facility] CT HEAD WO CONTRAST 2023-02-20 20:54:12 Sincere Arellano U [facility] AC PANEL 20 + LACTIC ACID 2023-02-20 19:54:00 Gus Arellano [facility] AC PANEL 20 + LACTIC ACID 2023-02-20 19:54:00 Gus Arellano [facility] AMMONIA, PLASMA 2023-02-20 18:47:00 Sincere Arellano [facility] AMMONIA, PLASMA 2023-02-20 18:47:00 Sincere Arellano [facility] BASIC METABOLIC PANEL (NA, K, CL, CO2, GLUCOSE, BUN, CREATININE, CA) 2023-02-20 18:46:00 Sincere Arellano [facility] HIV 1/2 AG-AB WITH REFLEX 2023-02-20 18:46:00 Elfego Saenz [facility] BASIC METABOLIC PANEL (NA, K, CL, CO2, GLUCOSE, BUN, CREATININE, CA) 2023-02-20 18:46:00 Sincere Arellano [facility] HIV 1/2 AG-AB WITH REFLEX 2023-02-20 18:46:00 Elfego Saenz [facility] POCT GLUCOSE (AUTOMATED) 2023-02-20 16:12:00 Ying Vila [facility] POCT GLUCOSE (AUTOMATED) 2023-02-20 16:12:00 Ying Vila [facility] PHOSPHORUS 2023-02-20 09:25:00 Sincere Arellano [facility] MAGNESIUM 2023-02-20 09:25:00 Sincere Arellano [facility] BASIC METABOLIC PANEL (NA, K, CL, CO2, GLUCOSE, BUN, CREATININE, CA) 2023-02-20 09:25:00 Adan Sincere [facility] CBC WITH DIFF 2023-02-20 09:25:00 Sincere Arellano [facility] PROTHROMBIN TIME / INR 2023-02-20 09:25:00 Ying Saenz [facility] PHOSPHORUS 2023-02-20 09:25:00 Sincere Arellano [facility] MAGNESIUM 2023-02-20 09:25:00 Sincere Arellano [facility] BASIC METABOLIC PANEL (NA, K, CL, CO2, GLUCOSE, BUN, CREATININE, CA) 2023-02-20 09:25:00 Adan Sincere [facility] CBC WITH DIFF 2023-02-20 09:25:00 Sincere Arellano [facility] PROTHROMBIN TIME / INR 2023-02-20 09:25:00 Ying Saenz [facility] CT ABDOMEN PELVIS WO CONTRAST 2023-02-20 07:07:32 Elfego Saenz [facility] CT ABDOMEN PELVIS WO CONTRAST 2023-02-20 07:07:32 Elfego Saenz [facility] XR CHEST 1 VW 2023-02-19 22:17:00 Yusuf Green [facility] XR CHEST 1 VW 2023-02-19 22:17:00 Yusuf Green [facility] AMMONIA, PLASMA 2023-02-19 13:30:00 Sincere Arellano [facility] AMMONIA, PLASMA 2023-02-19 13:30:00 Sincere Arellano [facility] COMP. METABOLIC PANEL ([id number]) 2023-02-19 12:47:00 Sincere Arellano [facility] OSMOLALITY, SERUM OR PLASMA 2023-02-19 12:47:00 Faustina Bourgeois [facility] HEPATIC FUNCTION PANEL ([id number]) (ALB,T.PRO,BILI T,BU/BC,ALT,AST,ALK PHOS) 2023-02-19 12:47:00 Elfego Saenz [facility] OSMOLALITY, SERUM OR PLASMA 2023-02-19 12:47:00 Faustina Bourgeois [facility] HEPATIC FUNCTION PANEL ([id number]) (ALB,T.PRO,BILI T,BU/BC,ALT,AST,ALK PHOS) 2023-02-19 12:47:00 Elfego Saenz [facility] COMP. METABOLIC PANEL ([id number]) 2023-02-19 12:47:00 Sincere Arellano [facility] BLOOD CULTURE SCREEN 2023-02-19 09:50:00 Wayne Saenz [facility] BLOOD CULTURE SCREEN 2023-02-19 09:50:00 Wayne Saenz [facility] BLOOD CULTURE SCREEN 2023-02-19 09:49:00 Wayne Saenz [facility] BLOOD CULTURE SCREEN 2023-02-19 09:49:00 Wayne Saenz [facility] URINE CULTURE 2023-02-19 09:17:00 Elfego Saenz Un [facility] URINE CULTURE 2023-02-19 09:17:00 [facility] US RETROPERITONEAL LIMITED 2023-02-19 07:46:55 Abdias Cook [facility] US RETROPERITONEAL LIMITED 2023-02-19 07:46:55 Abdias Cook [facility] SODIUM, URINE RANDOM 2023-02-19 07:21:00 [facility]OT[facility]INE RANDOM 2023-02-19 07:21:00 [facility] CREATININE, URINE RANDOM 2023-02-19 07:21:00 [facility] URIN[facility]IS 2023-02-19 07:21:00 Elfego Saenz [facility] URINALYSIS 2023-02-19 07:21:00 Elfego Saenz [facility] CREATININE, URINE RANDOM 2023-02-19 07:21:00 Abdias Rothman [facility] POTASSIUM, URINE RANDOM 2023-02-19 07:21:00 Abdias Arora [facility] SODIUM, URINE RANDOM 2023-02-19 07:21:00 Abdias Rice [facility] HEPATITIS B SURFACE ANTIBODY 2023-02-19 07:11:00 [facility] (HCV) BY QUANTITATIVE NAAT 2023-02-19 07:11:00 [facility] HCV ANTIBODY 2023-02-19 07:11:00 Rhoda Severino [facility] ETHANOL 2023-02-19 07:11:00 Elfego Saenz [facility] MAGNESIUM 2023-02-19 07:11:00 Rhoda Severino [facility] PHOSPHORUS 2023-02-19 07:11:00 Adriana Severinoesha [facility] HEPATITIS B SURFACE ANTIGEN 2023-02-19 07:11:00 Sincere Arellano [facility] HBC ANTIBODY (IGM & IGG) 2023-02-19 07:11:00 Kilo Arellano [facility] SYPHILIS IGG/IGM 2023-02-19 07:11:00 Elfego Saenz [facility] PHOSPHORUS 2023-02-19 07:11:00 Rhoda Severino [facility] MAGNESIUM 2023-02-19 07:11:00 [facility] 2023-02-19 07:11:00 Elfego Saenz [facility] HEPATITIS B SURFACE ANTIBODY 2023-02-19 07:11:00 [facility] HEPAT[facility]IS B SURFACE ANTIGEN 2023-02-19 07:11:00 Sincere Arellano [facility] HCV ANTIBODY 2023-02-19 07:11:00 Maycol [facility] HBC ANTIBODY (IGM & IGG) 2023-02-19 07:11:00 Kilo Arellano [facility] HEPATITIS C VIRUS (HCV) BY QUANTITATIVE NAAT 2023-02-19 07:11:00 Maycol [facility] SYPHILIS IGG/IGM 2023-02-19 07:11:00 [facility] CHEST 1 VW 2023-02-19 06:36:[address] [facility] XR CHEST 1 VW 2023-02-19 06:36:[address] [facility] PROTHROMBIN TIME / INR 2023-02-19 05:51:00 [facility] PROTHROMBIN TIME / INR 2023-02-19 05:51:00 Abdias Velazquez [facility] AC PANEL 21 + LACTIC ACID 2023-02-19 05:24:00 Adriana Severino [facility] AC PANEL 21 + LACTIC ACID 2023-02-19 05:24:00 Adriana Severino [facility] MRSA / MSSA SCREEN BY PAULA GUSMAN 2023-02-19 05:20:00 Abdias Cook [facility] COMP. METABOLIC PANEL ([id number]) 2023-02-19 05:20:00 Abdias Cook [facility] HEPATIC FUNCTION PANEL ([id number]) (ALB,T.PRO,BILI T,BU/BC,ALT,AST,ALK PHOS) 2023-02-19 05:20:00 Abdias Cook [facility] CBC WITH DIFF 2023-02-19 05:20:00 Heydi Cook [facility] HEPATITIS B CORE ANTIBODY IGM 2023-02-19 05:20:00 Rhoda Severino [facility] HEPATITIS B SURFACE ANTIGEN 2023-02-19 05:20:00 [facility] A VIRUS ANTIBODY IGM 2023-02-19 05:20:00 [facility] HEPATIC FUNCTION PANEL ([id number]) (ALB,T.PRO,BILI T,BU/BC,ALT,AST,ALK PHOS) 2023-02-19 05:20:00 Abdias Cook [facility] COMP. METABOLIC PANEL ([id number]) 2023-02-19 05:20:00 Abdias Cook [facility] CBC WITH DIFF 2023-02-19 05:20:00 Heydi Cook [facility] HEPATITIS B SURFACE ANTIGEN 2023-02-19 05:20:00 [facility] A VIRUS ANTIBODY IGM 2023-02-19 05:20:00 [facility] HEPAT[facility] B CORE ANTIBODY IGM 2023-02-19 05:20:00 [facility] MRSA / MSSA SCREEN BY PCRPAULA 2023-02-19 05:20:00 Abdias Cook [facility] DISCLOSURE AND CONSENT, MEDICAL AND SURGICAL PROCEDURES 2023-02-19 05:01:00 Doctor Unassigned, [place] [facility] NO SHOW OR MISSED APPOINTMENT POLICY ACKNOWLEDGEMENT 2022-11-18 21:24:55 Doctor Unassigned, [place] [facility] PATIENT FINANCIAL POLICY 2022-11-18 21:24:37 Doctor Unassigned, [place] [facility] NOTICE OF PRIVACY PRACTICES 2022-11-18 21:24:20 Doctor Unassigned, [place] [facility] CONSENT/REFUSAL FOR DIAGNOSIS AND TREATMENT 2022-11-18 21:24:05 Doctor Unassigned, [place] [facility] [facility] ASSIGNMENT OF BENEFITS 2022-11-18 21:23:50 Docto r Unassigned, [place] [facility] Encounters Start Date/Time End Date/Time Encounter Type Admission Type Attending [facility] Care Facility Care Department Encounter ID Source 2023-11-04 20:49:00 2023-11-05 01:51:00 Emergency X ANDREW MONTANEZ [facility] ERT [id number] [facility] 2023-11-04 20:49:00 2023-11-05 01:51:00 Emergency Andrew Montanez [facility] 1.2840.114 350.1.13.10 4.2.7.2.686 [id number] [facility] 2023-09-28 13:00:00 2023-09-28 13:00:00 Outpatient R BRENDEN HICKEY [facility] [id number] [facility] 2023-09-22 00:00:00 2023-09-22 15:52:01 Telephone Brenden Hickey [facility] 1.2.840.114 350.1.13.10 4.2.7.2.686 [id number] [facility] 2023-08-31 00:00:00 2023-08-31 10:42:14 [facility] 1.2.840.114 350.1.13.10 4.2.7.2.686 [id number] [facility] 2023-08-30 07:35:05 2023-08-30 23:59:00 Hospital Encounter Jose [facility] 1.2.840.114 350.1.13.10 4.2.7.2.686 [id number] [facility] 2023-08-30 07:34:50 2023-08-30 07:34:50 Hospital Encounter Jose, [facility] 1.2.840.114 350.1.13.10 4.2.7.2.686 [id number] [facility] 2023-08-30 07:34:43 2023-08-30 07:34:43 Hospital Encounter Jose, [facility] 1.2.840.114 350.1.13.10 4.2.7.2.686 [id number] [facility] 2023-08-30 07:34:36 2023-08-30 07:34:36 [facility] 1.2.840.114 350.1.13.10 4.2.7.2.686 [id number] [facility] 2023-08-30 07:34:05 2023-08-30 07:34:05 Outpatient R [facility] [id number] [facility] 2023-08-30 07:34:05 2023-08-30 07:34:05 [facility] 1.2.840.114 350.1.13.10 4.2.7.2.686 [id number] [facility] 2023-07-21 08:00:00 2023-07-21 08:00:00 [facility] [id number] 2023-07-13 15:40:00 2023-07-13 15:55:21 [facility] [id number] [facility] 2023-07-13 15:40:00 2023-07-13 15:55:21 Office Visit [facility] 1.2.840.114 350.1.13.10 4.2.7.2.686 [id number] [facility] 2023-06-21 00:00:00 2023-06-21 00:00:00 Orders Only Doctor Unassigned, [place] [facility] 1.2.840.114 350.1.13.10 4.2.7.2.686 [id number] [facility] 2023-06-03 00:00:00 2023-06-03 00:00:00 Orders Only Doctor Unassigned, [place] [facility] 1.2.840.114 350.1.13.10 4.2.7.2.686 [id number] [facility] 2023-03-16 00:00:00 2023-03-16 00:00:00 Orders Only Doctor Unassigned, [place] [facility] 1.2.840.114 350.1.13.10 4.2.7.2.686 [id number] [facility] 2023-03-11 00:00:00 2023-03-11 00:00:00 Transition of Care Cielo Joy PEYTON 1.2.840.114 350.1.13.10 4.2.7.2.686 [id number] [facility] 2023-02-18 23:56:00 2023-03-10 14:51:00 Inpatient U ARPIT RUST [facility] [place] [id number] [facility] 2023-02-18 23:56:00 2023-03-10 14:51:00 Hospital Encounter Zion Vila, Tony Ballard, Alan Turner, Arpit Choi [facility] 1.2840.114 350.1.13.10 4.2.7.2.686 [id number] [facility] 2023-03-03 00:00:00 2023-03-03 00:00:00 Travel 1.2.840.1 23434.1.1 3.104.2.7 .3.914531 .8 1.2.840.114 350.1.13.10 4.2.7.3.698 [id number] [facility] 2023-02-21 16:17:36 2023-02-21 16:17:36 Anesthesia Event Ute Spencer 1.2.840.1 06433.1.1 3.104.2.7 .3.466699 .8 [id number] [facility] 2023-02-21 00:00:00 2023-02-21 00:00:00 Case Management OrozcoZeynep hernandez 1.2.840.1 12689.1.1 3.104.2.7 .3.698599 .8 [id number] [facility] 2022-11-18 16:27:08 2022-11-18 23:59:00 Outpatient R RADIOLOGY [facility] [id number] [facility] 2022-11-18 16:27:08 2022-11-18 23:59:00 Hospital Encounter Radiology [facility] 1.2.840.114 350.1.13.10 4.2.7.2.686 [id number] [facility] 2022-10-08 05:00:00 2022-10-08 05:00:00 Outpatient ABBI ALICIA [facility] [id number] [facility] Results Test Description Test Time Test Comments Results Result Comments Source CT TRAUMA CERVICAL SPINE WO CONTRAST 05:33:21 Ordering physician: ADNREW MONTANEZ Indication: Acute neck trauma, fall Comparison: [...] No significant central canal stenosis is appreciated. [facility] CT MAXILLOFACIAL/M ANDIBLE WO CONTRAST 05:31:39 ORDERING [...] upper cervical spineis also within normal limits. [facility] CT TRAUMA THORAX W CONTRAST 05:23:19 EXAM: [...] at L4-5. No other high-grade foraminal stenosis. [facility] CT TRAUMA THORACIC SPINE WO CONTRAST 05:23:19 [...] at L4-5. No other high-grade foraminal stenosis. [facility] CT TRAUMA ABDOMEN PELVIS W CONTRAST 05:23:19 [...] at L4-5. No other high-grade foraminal stenosis. [facility] CT TRAUMA LUMBAR SPINE WO CONTRAST 05:23:19 [...] at L4-5. No other high-grade foraminal stenosis. [facility] XR KNEE 3 VW RIGHT 03:27:54 Ordering Physician: ?ANDREW POLK HISTORY: Right knee pain COMPARISON: none FINDINGS:Three views of the right knee. ?There is no fracture or dislocation. ?Thereis no joint effusion. The joint spaces are normal. ?Soft tissue edema isseen. ?Atherosclerotic calcifications also seen in the arteries. No pubicbone bodies are seen in the soft tissues. [facility] [id number] 06:01:28* Test Item Value Reference Range Interpretation Comme nts Blood Culture-Aerobic (test code = 50488-3) No organisms isolated No growth Previous preliminary verified result was Culture In Progress on 03/05/2023 at 0301 CSTPrevious preliminary verified result was No growth at 24 hours on 03/06/2023 at 0001 CSTPrevious preliminary verified result was No growth at 48 hours on 03/07/2023 at 0001 CSTPrevious preliminary verified result was No growth at 72 hours on 03/08/2023 at 0001 ASSISTANT PRINCIPAL Blood Culture-Anaerobic (test code = 98564-0) No organisms isolated No growth Previous preliminary verified result was Culture In Progress on 03/05/2023 at 0301 CSTPrevious preliminary verified result was No growth at 24 hours on 03/06/2023 at 0001 CSTPrevious preliminary verified result was No growth at 48 hours on 03/07/2023 at 0001 CSTPrevious preliminary verified result was No growth at 72 hours on 03/08/2023 at 0001 ASSISTANT PRINCIPAL Lab Interpretation (test code = 54436-2) Normal [facility] [id number] 06:01:28* Test Item Value Reference Range Interpretation Comme nts Blood Culture-Aerobic (test code = 41655-5) No organisms isolated No growth Previous preliminary verified result was Culture In Progress on 03/05/2023 at 0301 CSTPrevious preliminary verified result was No growth at 24 hours on 03/06/2023 at 0001 CSTPrevious preliminary verified result was No growth at 48 hours on 03/07/2023 at 0001 CSTPrevious preliminary verified result was No growth at 72 hours on 03/08/2023 at 0001 ASSISTANT PRINCIPAL Blood Culture-Anaerobic (test code = 60315-6) No organisms isolated No growth Previous preliminary verified result was Culture In Progress on 03/05/2023 at 0301 CSTPrevious preliminary verified result was No growth at 24 hours on 03/06/2023 at 0001 CSTPrevious preliminary verified result was No growth at 48 hours on 03/07/2023 at 0001 CSTPrevious preliminary verified result was No growth at 72 hours on 03/08/2023 at 0001 ASSISTANT PRINCIPAL Lab Interpretation (test code = 27716-0) Normal [facility]OLIC PANEL (NA, K, CL, CO2, GLUCOSE, BUN, CREATININE, CA)2023-03-04 20:17:39* Test Item Value Reference Range Interpretation Comme nts NA (test code = 2856135487) 138 mmol/L 135-145 K (test code = 1139795173) 3.7 mmol/L 3.5-5.0 CL (test code = 6064364724) 102 mmol/L 98-108 CO2 TOTAL (test code = 1956364646) 24 mmol/L 23-31 AGAP (test code = 7245859739) 12 2-16 BUN (test code = 0333116567) 32 mg/dL 7-23 H GLUCOSE (test code = 3393638085) 98 mg/dL 70-110 CREATININE (test code = 2791171524) 4.86 mg/dL 0.60-1.25 H CALCIUM (test code = 9231053790) 9.8 mg/dL 8.6-10.6 eGFR (test code = 60138-8) 13.2 mL/min/1.73m2 CKD-EPI eGFR (2020). Assuming creatinine has been stable day-to-day for at least three months, the eGFR indicates Category G5 (<= 14mL/min/1.73 m2) Lab Interpretation (test code = 93526-3) [facility]normal [facility] Clinic[facility] Screen - ONCE [id number] 19:37:00* Test Item Value Reference Range Interpretation Comme nts ABO & RH (test code = 20) O POSITIVE IAT (test code = 1185) Negative [facility] ClinicTroponin [id number] 19:23:11* Test Item Value Reference Range Interpretation Comme nts TROPONIN I (test code = 0990732517) 0.009 ng/mL <=0.034 BOBBY (test code = [...] of biotin. Lab Interpretation (test code = 95303-8) Normal [facility] ClinicProthrombin Time / [id number] 19:05:07* Test Item Value Reference Range Interpretation Comme [facility] PROTIME PATIENT (test code = 5964-2) 13.9 See_Comment H [[employer]] The system which generated this result transmitted reference range: 10.1 - 12.6 Seconds. The reference range was not used to interpret this result as normal/abnormal. INR (test code = 6301-6) 1.2 Normal INR <1.1; Warfarin Therapeutic range 2.0 to 3.0 or 2.5 to 3.5, depending upon the indications. Lab Interpretation (test code = 24786-0) Abnormal [facility] ClinicaPTT2023-11-10 19:05:07* Test Item Value Reference Range Interpretation Comme [facility] APTT Patient (test code = 3173-2) 36 See_Comment [[employer]] The system which generated this result transmitted reference range: 26 - 36 Seconds. The reference range was not used to interpret this result as normal/abnormal. Lab Interpretation (test code = 71084-1) Normal [facility] ClinicProfile / [id number] 18:56:44* Test Item Value Reference Range Interpretation Comme [facility] WBC (test code = 6690-2) 11.54 See_Comment [...] result as normal/abnormal. MPV (test code = 57504-6) 9.3 fL 9.8-13.0 L RDW-CV (test code = 788-0) 22.1 % 12.1-15.4 H RDW-SD (test code = 34280-7) 73.0 fL 38.5-51.6 H NRBC x10^3 (test code = 8863177540) See_Comment [Automated messa ge] The system which generated this result transmitted reference range: 10*3/?L. The reference range was not used to interpret this result as normal/abnormal. NRBC/100 WBC (test code = 9017552363) 0.0 See_Comment [Automated messa ge] The system which generated this result transmitted reference range: 0.0 - 10.0 /100 WBCs. The reference range was not used to interpret this result as normal/abnormal. IPF % (test code = 9929234362) Lab Interpretation (test code = 59924-0) Abnormal [facility] ClinicPOCT GLUCOSE (AUTOMATED)2023-03-04 18:44:21* Test Item Value Reference Range Interpretation Comme nts POCT GLU (test code = 8138985879) 101 mg/dL 70-110 Lab Interpretation (test cod e = 20944-2) Normal [facility] ClinicBL[facility]OD CULTURE [id number] 01:01:26* Test Item Value Reference Range Interpretation Comme nts Blood Culture-Aerobic (test code = 67129-1) No organisms isolated No growth Previous preliminary verified result was Culture In Progress on 02/25/2023 at 2301 CDTPrevious preliminary verified result was No growth at 24 hours on 02/26/2023 at 2000 CDTPrevious preliminary verified result was No growth at 48 hours on 02/27/2023 at 1901 CSTPrevious preliminary verified result was No growth at 72 hours on 02/28/2023 at 1901 ASSISTANT PRINCIPAL Blood Culture-Anaerobic (test code = 74423-3) No organisms isolated No growth Previous preliminary verified result was Culture In Progress on 02/25/2023 at 2301 CDTPrevious preliminary verified result was No growth at 24 hours on 02/26/2023 at 2000 CDTPrevious preliminary verified result was No growth at 48 hours on 02/27/2023 at 1901 CSTPrevious preliminary verified result was No growth at 72 hours on 02/28/2023 at 1901 ASSISTANT PRINCIPAL Lab Interpretation (test code = 95762-0) [facility] CULTURE [id number] 01:01:26* Test Item Value Reference Range Interpretation Comme [facility] Blood Culture-Aerobic (test code = 70427-0) No organisms isolated No growth Previous preliminary verified result was Culture In Progress on 02/25/2023 at 2301 CDTPrevious preliminary verified result was No growth at 24 hours on 02/26/2023 at 2000 CDTPrevious preliminary verified result was No growth at 48 hours on 02/27/2023 at 1901 CSTPrevious preliminary verified result was No growth at 72 hours on 02/28/2023 at 1901 ASSISTANT PRINCIPAL Blood Culture-Anaerobic (test code = 95930-0) No organisms isolated No growth Previous preliminary verified result was Culture In Progress on 02/25/2023 at 2301 CDTPrevious preliminary verified result was No growth at 24 hours on 02/26/2023 at 2000 CDTPrevious preliminary verified result was No growth at 48 hours on 02/27/2023 at 1901 CSTPrevious preliminary verified result was No growth at 72 hours on 02/28/2023 at 1901 ASSISTANT PRINCIPAL Lab Interpretation (test code = 53831-3) [facility] CULTURE [id number] 01:01:26* Test Item Value Reference Range Interpretation Comme [facility] Blood Culture-Aerobic (test code = 64733-1) No organisms isolated No growth Previous preliminary verified result was Culture In Progress on 02/25/2023 at 2301 CDTPrevious preliminary verified result was No growth at 24 hours on 02/26/2023 at 2001 CDTPrevious preliminary verified result was No growth at 48 hours on 02/27/2023 at 1901 CSTPrevious preliminary verified result was No growth at 72 hours on 02/28/2023 at 1901 ASSISTANT PRINCIPAL Blood Culture-Anaerobic (test code = 07382-7) No organisms isolated No growth Previous preliminary verified result was Culture In Progress on 02/25/2023 at 2301 CDTPrevious preliminary verified result was No growth at 24 hours on 02/26/2023 at 2001 CDTPrevious preliminary verified result was No growth at 48 hours on 02/27/2023 at 1901 CSTPrevious preliminary verified result was No growth at 72 hours on 02/28/2023 at 1901 ASSISTANT PRINCIPAL Lab Interpretation (test code = 84407-4) Normal [facility] ClinicPROTHROMBIN TIME / [id number] 19:51:25* Test Item Value Reference Range Interpretation Comme [facility] PROTIME PATIENT (test code = 5964-2) 14.5 See_Comment H [Automated ServiceBencha ge] The system which generated this result transmitted reference range: 10.1 - 12.6 Seconds. The reference range was not used to interpret this result as normal/abnormal. INR (test code = 6301-6) 1.3 Normal INR <1.1; Warfarin Therapeutic range 2.0 to 3.0 or 2.5 to 3.5, depending upon the indications. Lab Interpretation (test code = 84910-7) Abnormal [facility] ClinicPROTHROMBIN TIME / [id number] 19:51:25* Test Item Value Reference Range Interpretation [...] the indications. Lab Interpretation (test code = 14703-8) Abnormal [facility] WITHOUT [id number] 23:28:46* Test Item Value Reference Range Interpretation [...] result as normal/abnormal. MPV (test code = 14838-5) 11.0 fL 9.8-13.0 RDW-CV (test code = 788-0) 21.8 % 12.1-15.4 H RDW-SD (test code = 97848-5) 66.4 fL 38.5-51.6 H NRBC x10^3 (test code = 8680473212) See_Comment [Automated messa ge] The system which generated this result transmitted reference range: 10*3/?L. The reference range was not used to interpret this result as normal/abnormal. NRBC/100 WBC (test code = 3259485217) 0.0 See_Comment [Automated messa ge] The system which generated this result transmitted reference range: 0.0 - 10.0 /100 WBCs. The reference range was not used to interpret this result as normal/abnormal. IPF % (test code = 8788075855) Lab Interpretation (test code = 69410-9) Abnormal [facility] WITHOUT [id number] 23:28:46* Test Item Value Reference Range Interpretation [...] result as normal/abnormal. MPV (test code = 20127-9) 11.0 fL 9.8-13.0 RDW-CV (test code = 788-0) 21.8 % 12.1-15.4 H RDW-SD (test code = 28637-3) 66.4 fL 38.5-51.6 H NRBC x10^3 (test code = 8889447945) See_Comment [Automated messa ge] The system which generated this result transmitted reference range: 10*3/?L. The reference range was not used to interpret this result as normal/abnormal. NRBC/100 WBC (test code = 6155187069) 0.0 See_Comment [Automated messa ge] The system which generated this result transmitted reference range: 0.0 - 10.0 /100 WBCs. The reference range was not used to interpret this result as normal/abnormal. IPF % (test code = 8565925004) Lab Interpretation (test code = 65515-1) Abnormal [facility] Packed RBC (in units), 1 Units 2023-03-01 14:31:00* Test Item Value Reference Range Interpretation Comme nts Cross Match Result (test code = 4409) Compatible ISBT Blood Type Code (test code = 910252) 5100 Unit Blood Type (test code = 4410) O Pos Unit Number (test code = 4411) [id number] Blood Expiration Date & Time (test code = 514474) 131254105271 Status Information (test code = 4412) Issued Product Identification (test code = 4413) Red Blood Cells Product Code (test code = 4414) [id number] Performed at [facility] Laboratory [facility] Blood [address] Free: [phone] No. [id number] [facility] Packed RBC (in units), 1 Units 2023-03-01 14:31:00* Test Item Value Reference Range Interpretation Comme nts Cross Match Result (test code = 4409) Compatible ISBT Blood Type Code (test code = 010718) 5100 Unit Blood Type (test code = 4410) O Pos Unit Number (test code = 4411) [id number] Blood Expiration Date & Time (test code = 992259) 793013823181 Status Information (test code = 4412) Issued Product Identification (test code = 4413) Red Blood Cells Product Code (test code = 4414) [id number] Performed at [facility] Laboratory [facility] Blood [address] Free: [phone] No. [id number] [facility] ClinicSP[facility] [id number] 12:12:59* Test Item Value Reference Range Interpretation Comme nts SPUTUM CULTURE (test code = 622-1) Specimen cellular elements do not represent lower respiratory tract. Specimen rejected for routine bacterial culture. Suggest reorder and recollection. Gram stain (test code = 664-3) Numerous Epithelial cells [facility] ClinicSPUTUM [id number] 12:12:59* Test Item Value Reference Range Interpretation Comme [facility] SPUTUM CULTURE (test code = 622-1) Specimen cellular elements do not represent lower respiratory tract. Specimen rejected for routine bacterial culture. Suggest reorder and recollection. Gram stain (test code = 664-3) Numerous Epithelial cells [facility] Packed RBC (in units), 1 Units 2023-02-27 21:19:05* Test Item Value Reference Range Interpretation Comme [facility] Cross Match Result (test code = 4409) Compatible ISBT Blood Type Code (test code = 871749) 5100 Unit Blood Type (test code = 4410) O Pos Unit Number (test code = 4411) [id number] Blood Expiration Date & Time (test code = 892189) 613927179796 Status Information (test code = 4412) Issued Product Identification (test code = 4413) Red Blood Cells Product Code (test code = 4414) [id number] Performed at [facility] Laboratory Services [facility] Blood [address] [address] Free: [phone] No. [id number] [facility] Panel 20 + Lactic [id number] 04:29:10* Test Item Value Reference Range Interpretation Comme [facility] PH (test code = 2) 7.41 7.35-7.45 PCO2 (test code = 2301738604) 33 See_Comment L [Automated messa ge] The system which generated this result transmitted reference range: 35 - 45 mmHg. The reference range was not used to interpret this result as normal/abnormal. PO2 (test code = 2799464277) 77 See_Comment L [Automated messa ge] The system which generated this result transmitted reference range: 80 - 100 mmHg. The reference range was not used to interpret this result as normal/abnormal. HCO3 (test code = 6379280245) 20 See_Comment L [Automated messa ge] The system which generated this result transmitted reference range: 22 - 26 mEq/L. The reference range was not used to interpret this result as normal/abnormal. BE (test code = 4795048242) -3.2 See_Comment L [Automated messa ge] The system which generated this result transmitted reference range: -3.0 - 3.0 mEq/L. The reference range was not used to interpret this result as normal/abnormal. THB (test code = 6682177655) 12.6 g/dL 13.5-18.0 L %O2HB (test code = 1409752445) 93.5 % 94.0-99.0 L %COHB ART (test code = 3994306802) 0.8 % 0.0-1.5 %METHB ART (test code = 0782889144) 0.4 % 0.4-1.5 VOL%O2 ART (test code = 8077266828) 16.6 % 15.0-23.0 NA (test code = 7566713377) 136 mmol/L 135-145 K+ (test code = 9017264423) 3.8 mmol/L 3.5-5.0 AC CA IONZ (test code = 3726729044) 4.50 mg/dL 4.50-5.30 GLUCOSE (test code = 2140886476) 110 mg/dL 70-110 LACTIC ACID (test code = 3424392998) 1.84 mmol/L 0.50-2.20 Lab Interpretation (test code = 92121-1) Abnormal [facility] 20 + Lactic [id number] 04:29:10* Test Item Value Reference Range Interpretation Comme nts PH (test code = 2) 7.41 7.35-7.45 PCO2 (test code = 6258441789) 33 See_Comment L [Automated messa ge] The system which generated this result transmitted reference range: 35 - 45 mmHg. The reference range was not used to interpret this result as normal/abnormal. PO2 (test code = 6658348841) 77 See_Comment L [Automated messa ge] The system which generated this result transmitted reference range: 80 - 100 mmHg. The reference range was not used to interpret this result as normal/abnormal. HCO3 (test code = 4942242416) 20 See_Comment L [Automated messa ge] The system which generated this result transmitted reference range: 22 - 26 mEq/L. The reference range was not used to interpret this result as normal/abnormal. BE (test code = 6252930025) -3.2 See_Comment L [Automated messa ge] The system which generated this result transmitted reference range: -3.0 - 3.0 mEq/L. The reference range was not used to interpret this result as normal/abnormal. THB (test code = 4239481695) 12.6 g/dL 13.5-18.0 L %O2HB (test code = 3238436321) 93.5 % 94.0-99.0 L %COHB ART (test code = 9854392232) 0.8 % 0.0-1.5 %METHB ART (test code = 0239127181) 0.4 % 0.4-1.5 VOL%O2 ART (test code = 3826906481) 16.6 % 15.0-23.0 NA (test code = 4582424248) 136 mmol/L 135-145 K+ (test code = 8151002452) 3.8 mmol/L 3.5-5.0 AC CA IONZ (test code = 1515101431) 4.50 mg/dL 4.50-5.30 GLUCOSE (test code = 2043010002) 110 mg/dL 70-110 LACTIC ACID (test code = 0467953203) 1.84 mmol/L 0.50-2.20 Lab Interpretation (test code = 43262-9) Abnormal [facility] WITH [id number] 12:03:47* Test Item Value Reference Range Interpretation [...] 32.5 g/dL 31.2-35.0 RDW-SD (test code = 86761-8) 66.4 fL 38.5-51.6 H RDW-CV (test code = 788-0) 19.5 % 12.1-15.4 H PLT (test code = 777-3) 37 See_Comment LL [Automated ServiceBencha ge] The system which generated this result transmitted reference range: 150 - 328 10*3/?L. The reference range was not used to interpret this result as normal/abnormal. MPV (test code = 84754-0) Not Measured IPF % (test code = 2496019191) 13.6 % 1.2-10.7 H Platelet count measured by fluorescence method. NRBC/100 WBC (test code = 0588055478) 0.1 See_Comment [Automated [employer] ssage] The system which generated this result transmitted reference range: 0.0 - 10.0 /100 WBCs. The reference range was not used to interpret this result as normal/abnormal. NRBC x10^3 (test code = 6876755947) 0.02 See_Comment [Automated [employer]] The system which generated this result transmitted reference range: 10*3/?L. The reference range was not used to interpret this result as normal/abnormal. GRAN MAT (NEUT) % (test code = 770-8) 64.8 % IMM GRAN % (test code = 3085599323) 1.70 % LYMPH % (test code = 736-9) 13.8 % MONO % (test code = 5905-5) 13.1 % EOS % (test code = 713-8) 6.4 % BASO % (test code = 706-2) 0.2 % GRAN MAT x10^3(ANC) (test code = 6416776859) 10.52 10*3/uL 1.99-6.95 H IMM GRAN x10^3 (test code = 4663943873) 0.27 10*3/uL 0.00-0.06 H LYMPH x10^3 (test code = 731-0) 2.24 10*3/uL 1.09-3.23 MONO x10^3 (test code = 742-7) 2.12 10*3/uL 0.36-1.02 H EOS x10^3 (test code = 711-2) 1.04 10*3/uL 0.06-0.53 H BASO x10^3 (test code = 704-7) 0.04 10*3/uL 0.01-0.09 Lab Interpretation (test code = 42116-9) [facility] 11[facility]57:16* Test Item Value Reference Range Interpretation Comme nts MAGNESIUM (test code = 7629760749) 2.6 mg/dL 1.7-2.4 H Lab Interpretation (test cod e = 72068-8) [facility] ([id number])2023-02-26 11:57:15* Test Item Value Reference Range Interpretation Comme nts NA (test code = 6344993426) 138 mmol/L 135-145 K (test code = 4354237650) 3.6 mmol/L 3.5-5.0 CL (test code = 2096607737) 104 mmol/L 98-108 CO2 TOTAL (test code = 1656832536) 24 mmol/L 23-31 AGAP (test code = 7625368404) 10 2-16 BUN (test code = 5038220116) 13 mg/dL 7-23 GLUCOSE (test code = 1530849798) 111 mg/dL 70-110 H CREATININE (test code = 0855296514) 2.58 mg/dL 0.60-1.25 H TOTAL BILI (test code = 9718698722) 2.7 mg/dL 0.1-1.1 H CALCIUM (test code = 3983146052) 8.4 mg/dL 8.6-10.6 L T PROTEIN (test code = 2288921519) 6.8 g/dL 6.3-8.2 ALBUMIN (test code = 7503118072) 4.1 g/dL 3.5-5.0 ALK PHOS (test code = 4135372489) 193 U/L 34-122 H ALTv (test code = 1742-6) 39 U/L 5-50 AST(SGOT) (test code = 1390878340) 206 U/L 13-40 H eGFR (test code = 26657-0) 28.3 mL/min/1.73m2 CKD-EPI eGFR (2020). Assuming creatinine has been stable day-to-day for at least three months, the eGFR indicates Category G4 (15 - 29 mL/min/1.73 m2) Lab Interpretation (test code = 69036-1) Abnormal [facility] WITHOUT [id number] 00:14:22* Test Item Value Reference Range Interpretation [...] result as normal/abnormal. MPV (test code = 01212-6) 11.5 fL 9.8-13.0 RDW-CV (test code = 788-0) 19.5 % 12.1-15.4 H RDW-SD (test code = 89089-5) 66.5 fL 38.5-51.6 H NRBC x10^3 (test code = 6004402634) See_Comment [Automated messa ge] The system which generated this result transmitted reference range: 10*3/?L. The reference range was not used to interpret this result as normal/abnormal. NRBC/100 WBC (test code = 2471849911) 0.0 See_Comment [Automated messa ge] The system which generated this result transmitted reference range: 0.0 - 10.0 /100 WBCs. The reference range was not used to interpret this result as normal/abnormal. IPF % (test code = 8531264763) 12.8 % 1.2-10.7 H Platelet count measured by fluorescence method. Lab Interpretation (test code = 30758-4) Abnormal [facility] Arterial Blood Gas.2023-02-25 16:11:31* Test Item Value Reference Range Interpretation Comme nts PH (test code = 2) 7.45 7.35-7.45 PCO2 (test code = 3542924123) 34 See_Comment L [Automated messa ge] The system which generated this result transmitted reference range: 35 - 45 mmHg. The reference range was not used to interpret this result as normal/abnormal. PO2 (test code = 0165039748) 384 See_Comment H QUES [Automated message] The system which generated this result transmitted reference range: 80 - 100 mmHg. The reference range was not used to interpret this result as normal/abnormal. HCO3 (test code = 7856518303) 23 See_Comment [Automated messa ge] The system which generated this result transmitted reference range: 22 - 26 mEq/L. The reference range was not used to interpret this result as normal/abnormal. BE (test code = 0029929462) -1.1 See_Comment [Automated messa ge] The system which generated this result transmitted reference range: -3.0 - 3.0 mEq/L. The reference range was not used to interpret this result as normal/abnormal. Lab Interpretation (test code = 40338-3) Abnormal [facility] Arterial Blood Gas.2023-02-25 16:11:31* Test Item Value Reference Range Interpretation Comme nts PH (test code = 2) 7.45 7.35-7.45 PCO2 (test code = 0321922935) 34 See_Comment L [Automated messa ge] The system which generated this result transmitted reference range: 35 - 45 mmHg. The reference range was not used to interpret this result as normal/abnormal. PO2 (test code = 7596265762) 384 See_Comment H QUES [Automated message] The system which generated this result transmitted reference range: 80 - 100 mmHg. The reference range was not used to interpret this result as normal/abnormal. HCO3 (test code = 1370223010) 23 See_Comment [Automated messa ge] The system which generated this result transmitted reference range: 22 - 26 mEq/L. The reference range was not used to interpret this result as normal/abnormal. BE (test code = 0092399940) -1.1 See_Comment [Automated messa ge] The system which generated this result transmitted reference range: -3.0 - 3.0 mEq/L. The reference range was not used to interpret this result as normal/abnormal. Lab Interpretation (test code = 50450-3) Abnormal [facility] WITH [id number] 11:40:01* Test Item Value Reference Range Interpretation [...] 32.7 g/dL 31.2-35.0 RDW-SD (test code = 56505-8) 67.8 fL 38.5-51.6 H RDW-CV (test code = 788-0) 19.4 % 12.1-15.4 H PLT (test code = 777-3) 46 See_Comment LL [Automated [employer] ge] The system which generated this result transmitted reference range: 150 - 328 10*3/?L. The reference range was not used to interpret this result as normal/abnormal. MPV (test code = 72711-5) 11.3 fL 9.8-13.0 IPF % (test code = 6537324116) 8.9 % 1.2-10.7 Platelet count measured by fluorescence method. NRBC/100 WBC (test code = 4577171380) 0.0 See_Comment [Automated [employer] ssage] The system which generated this result transmitted reference range: 0.0 - 10.0 /100 WBCs. The reference range was not used to interpret this result as normal/abnormal. NRBC x10^3 (test code = 0674106983) See_Comment [Automated [employer] ge] The system which generated this result transmitted reference range: 10*3/?L. The reference range was not used to interpret this result as normal/abnormal. GRAN MAT (NEUT) % (test code = 770-8) 75.9 % IMM GRAN % (test code = 1543602303) 1.00 % LYMPH % (test code = 736-9) 8.4 % MONO % (test code = 5905-5) 9.3 % EOS % (test code = 713-8) 5.1 % BASO % (test code = 706-2) 0.3 % GRAN MAT x10^3(ANC) (test code = 0321529129) 11.06 10*3/uL 1.99-6.95 H IMM GRAN x10^3 (test code = 1931949633) 0.15 10*3/uL 0.00-0.06 H LYMPH x10^3 (test code = 731-0) 1.22 10*3/uL 1.09-3.23 MONO x10^3 (test code = 742-7) 1.36 10*3/uL 0.36-1.02 H EOS x10^3 (test code = 711-2) 0.74 10*3/uL 0.06-0.53 H BASO x10^3 (test code = 704-7) 0.05 10*3/uL 0.01-0.09 Lab Interpretation (test code = 63494-3) [facility] 11:03:46* Test Item Value Reference Range Interpretation Comme nts MAGNESIUM (test code = 1021917384) 2.5 mg/dL 1.7-2.4 H Lab Interpretation (test cod e = 58474-2) [id number][facility] 11:03:46* Test Item Value Reference Range Interpretation Comme nts NA (test code = 0644606560) 137 mmol/L 135-145 K (test code = 9043511326) 4.1 mmol/L 3.5-5.0 CL (test code = 1943602035) 104 mmol/L 98-108 CO2 TOTAL (test code = 8361957128) 20 mmol/L 23-31 L AGAP (test code = 1488832629) 13 2-16 BUN (test code = 1711005226) 24 mg/dL 7-23 H GLUCOSE (test code = 9251215418) 110 mg/dL 70-110 CREATININE (test code = 5879870442) 5.26 mg/dL 0.60-1.25 H TOTAL BILI (test code = 1471423297) 2.2 mg/dL 0.1-1.1 H CALCIUM (test code = 9947303630) 8.4 mg/dL 8.6-10.6 L T PROTEIN (test code = 5564654236) 6.6 g/dL 6.3-8.2 ALBUMIN (test code = 5683567858) 3.8 g/dL 3.5-5.0 ALK PHOS (test code = 4009320769) 214 U/L 34-122 H ALTv (test code = 1742-6) 45 U/L 5-50 AST(SGOT) (test code = 8243215240) 218 U/L 13-40 H eGFR (test code = 81758-0) 12.0 mL/min/1.73m2 CKD-EPI eGFR (2021). Assuming creatinine has been stable day-to-day for at least three months, the eGFR indicates Category G5 (<= 14mL/min/1.73 m2) Lab Interpretation (test code = 67114-1) [facility] 11:03:46* Test Item Value Reference Range Interpretation Comme nts PHOSPHORUS (test code = 7906155724) 2.9 mg/dL 2.5-5.0 Lab Interpretation (test cod e = 10166-9) [facility] (NA, K, CL, CO2, GLUCOSE, BUN, CREATININE, CA)2023-02-24 18:45:30* Test Item Value Reference Range Interpretation Comme nts NA (test code = 8463537904) 136 mmol/L 135-145 K (test code = 8878828704) 4.0 mmol/L 3.5-5.0 CL (test code = 8649998712) 102 mmol/L 98-108 CO2 TOTAL (test code = 3928421989) 19 mmol/L 23-31 L AGAP (test code = 5268972591) 15 2-16 BUN (test code = 5905425506) 32 mg/dL 7-23 H GLUCOSE (test code = 3231571552) 106 mg/dL 70-110 CREATININE (test code = 9477334709) 7.57 mg/dL 0.60-1.25 H CALCIUM (test code = 0160083166) 8.7 mg/dL 8.6-10.6 eGFR (test code = 37991-4) 7.8 mL/min/1.73m2 CKD-EPI eGFR (2020). Assuming creatinine has been stable day-to-day for at least three months, the eGFR indicates Category G5 (<= 14mL/min/1.73 m2) Lab Interpretation (test code = 03385-4) [facility] ClinicBLO[facility] C[facility]URE [id number] 11:01:20* Test Item Value Reference Range Interpretation Comme nts Blood Culture-Aerobic (test code = 72470-8) No organisms isolated No growth Previous preliminary verified result was Culture In Progress on 02/19/2023 at 0901 CDTPrevious preliminary verified result was No growth at 24 hours on 02/20/2023 at 0601 CDTPrevious preliminary verified result was No growth at 48 hours on 02/21/[address] [place], [place] [address]TPrevious preliminary verified result was No growth at 72 hours on 02/22/[address] [place] [address] Blood Culture-Anaerobic (test code = 73924-1) No organisms isolated No growth Previous preliminary verified result was Culture In Progress on 02/19/[address] [place], [place] [address]TPrevious preliminary verified result was No growth at 24 hours on 02/20/2023 at [facility] CDTPrevious preliminary verified result was No growth at 48 hours on 02/21/[address] [place], [place] [address]TPrevious preliminary verified result was No growth at 72 hours on 02/22/[address] [place] [address] Lab Interpretation (test code = 96386-4) Normal [facility] WITH [id number] 10:50:27* Test Item Value Reference Range Interpretation [...] 33.5 g/dL 31.2-35.0 RDW-SD (test code = 70549-6) 66.4 fL 38.5-51.6 H RDW-CV (test code = 788-0) 19.7 % 12.1-15.4 H PLT (test code = 777-3) 42 See_Comment LL [Automated messa ge] The system which generated this result transmitted reference range: 150 - 328 10*3/?L. The reference range was not used to interpret this result as normal/abnormal. MPV (test code = 46053-0) 10.3 fL 9.8-13.0 IPF % (test code = 0697592175) 8.1 % 1.2-10.7 Platelet count measured by fluorescence method. NRBC/100 WBC (test code = 3113996672) 0.0 See_Comment [Automated me ssage] The system which generated this result transmitted reference range: 0.0 - 10.0 /100 WBCs. The reference range was not used to interpret this result as normal/abnormal. NRBC x10^3 (test code = 1565208977) See_Comment [Automated messa ge] The system which generated this result transmitted reference range: 10*3/?L. The reference range was not used to interpret this result as normal/abnormal. GRAN MAT (NEUT) % (test code = 770-8) 66.1 % IMM GRAN % (test code = 7101064374) 0.80 % LYMPH % (test code = 736-9) 13.2 % MONO % (test code = 5905-5) 10.2 % EOS % (test code = 713-8) 9.3 % BASO % (test code = 706-2) 0.4 % GRAN MAT x10^3(ANC) (test code = 5309977138) 5.97 10*3/uL 1.99-6.95 IMM GRAN x10^3 (test code = 9934912335) 0.07 10*3/uL 0.00-0.06 H LYMPH x10^3 (test code = 731-0) 1.19 10*3/uL 1.09-3.23 MONO x10^3 (test code = 742-7) 0.92 10*3/uL 0.36-1.02 EOS x10^3 (test code = 711-2) 0.84 10*3/uL 0.06-0.53 H BASO x10^3 (test code = 704-7) 0.04 10*3/uL 0.01-0.09 Lab Interpretation (test code = 72700-9) [facility] Test Item Value Reference Range Interpretation Comme nts MAGNESIUM (test code = 4983993294) 2.6 mg/dL 1.7-2.4 H Lab Interpretation (test cod e = 10971-7) [facility] (66417)2023-02-24 10:30:39* Test Item Value Reference Range Interpretation Comme nts NA (test code = 5758098098) 135 mmol/L 135-145 K (test code = 7187011234) 4.2 mmol/L 3.5-5.0 CL (test code = 0422642650) 102 mmol/L 98-108 CO2 TOTAL (test code = 5361303993) 19 mmol/L 23-31 L AGAP (test code = 5206095488) 14 2-16 BUN (test code = 4274806278) 31 mg/dL 7-23 H GLUCOSE (test code = 7187470428) 110 mg/dL 70-110 CREATININE (test code = 0685716187) 7.39 mg/dL 0.60-1.25 H TOTAL BILI (test code = 9548096048) 2.2 mg/dL 0.1-1.1 H CALCIUM (test code = 9467261346) 9.1 mg/dL 8.6-10.6 T PROTEIN (test code = 1622984835) 7.0 g/dL 6.3-8.2 ALBUMIN (test code = 8404781524) 4.1 g/dL 3.5-5.0 ALK PHOS (test code = 2065858681) 218 U/L 34-122 H ALTv (test code = 1742-6) 53 U/L 5-50 H AST(SGOT) (test code = 8169001282) 242 U/L 13-40 H eGFR (test code = 79609-8) 8.0 mL/min/1.73m2 CKD-EPI eGFR (2020). Assuming creatinine has been stable day-to-day for at least three months, the eGFR indicates Category G5 (<= 14mL/min/1.73 m2) Lab Interpretation (test code = 79969-8) [facility]2023-[facility]-02 10:30:39* Test Item Value Reference Range Interpretation Comme nts PHOSPHORUS (test code = 5958394377) 3.6 mg/dL 2.5-5.0 Lab Interpretation (test cod e = 94017-4) [facility] (NA, K, CL, CO2, GLUCOSE, BUN, CREATININE, CA)2023-02-24 10:30:39* Test Item Value Reference Range Interpretation Comme nts NA (test code = 5306214682) 135 mmol/L 135-145 K (test code = 4831811428) 4.2 mmol/L 3.5-5.0 CL (test code = 9433255168) 102 mmol/L 98-108 CO2 TOTAL (test code = 3847926800) 19 mmol/L 23-31 L AGAP (test code = 1122203421) 14 2-16 BUN (test code = 4083114849) 31 mg/dL 7-23 H GLUCOSE (test code = 5768341901) 110 mg/dL 70-110 CREATININE (test code = 6813572025) 7.39 mg/dL 0.60-1.25 H CALCIUM (test code = 1903942707) 9.1 mg/dL 8.6-10.6 eGFR (test code = 66074-0) 8.0 mL/min/1.73m2 CKD-EPI eGFR (2020). Assuming creatinine has been stable day-to-day for at least three months, the eGFR indicates Category G5 (<= 14mL/min/1.73 m2)CKD-EPI eGFR (2020). Assuming creatinine has been stable day-to-day for at least three months, the eGFR indicates Category G5 (<= 14mL/min/1.73 m2) Lab Interpretation (test code = 44538-7) [facility] + Lactic [id number] 21:58:55* Test Item Value Reference Range Interpretation Comme nts PH (test code = 2) 7.47 7.35-7.45 H PCO2 (test code = 3232072544) 30 See_Comment L [Automated messa ge] The system which generated this result transmitted reference range: 35 - 45 mmHg. The reference range was not used to interpret this result as normal/abnormal. PO2 (test code = 8280819227) 96 See_Comment [Automated messa ge] The system which generated this result transmitted reference range: 80 - 100 mmHg. The reference range was not used to interpret this result as normal/abnormal. HCO3 (test code = 6193527588) 21 See_Comment L [Automated messa ge] The system which generated this result transmitted reference range: 22 - 26 mEq/L. The reference range was not used to interpret this result as normal/abnormal. BE (test code = 0301721903) -2.1 See_Comment [Automated messa ge] The system which generated this result transmitted reference range: -3.0 - 3.0 mEq/L. The reference range was not used to interpret this result as normal/abnormal. THB (test code = 7203008398) 10.5 g/dL 13.5-18.0 L %O2HB (test code = 8671217637) 97.4 % 94.0-99.0 %COHB ART (test code = 7179908757) 0.3 % 0.0-1.5 %METHB ART (test code = 6430617065) 0.0 % 0.4-1.5 L VOL%O2 ART (test code = 8348295516) 14.5 % 15.0-23.0 L NA (test code = 4235314104) 131 mmol/L 135-145 L K+ (test code = 9457297302) 3.9 mmol/L 3.5-5.0 AC CA IONZ (test code = 4167441461) 4.50 mg/dL 4.50-5.30 GLUCOSE (test code = 4454111724) 100 mg/dL 70-110 LACTIC ACID (test code = 7006700311) 1.70 mmol/L 0.50-2.20 QUES Lab Interpretation (test code = 00431-8) [facility] + Lactic [id number] 16:28:05* Test Item Value Reference Range Interpretation Comme nts PH (test code = 2) 7.53 7.35-7.45 H PCO2 (test code = 8400031542) 26 See_Comment L [Automated messa ge] The system which generated this result transmitted reference range: 35 - 45 mmHg. The reference range was not used to interpret this result as normal/abnormal. PO2 (test code = 6381386674) 87 See_Comment [Automated messa ge] The system which generated this result transmitted reference range: 80 - 100 mmHg. The reference range was not used to interpret this result as normal/abnormal. HCO3 (test code = 8769848889) 21 See_Comment L [Automated messa ge] The system which generated this result transmitted reference range: 22 - 26 mEq/L. The reference range was not used to interpret this result as normal/abnormal. BE (test code = 8787742524) -0.9 See_Comment [Automated messa ge] The system which generated this result transmitted reference range: -3.0 - 3.0 mEq/L. The reference range was not used to interpret this result as normal/abnormal. THB (test code = 8257122566) 10.0 g/dL 13.5-18.0 L %O2HB (test code = 9681750867) 97.2 % 94.0-99.0 %COHB ART (test code = 0070868280) 0.3 % 0.0-1.5 %METHB ART (test code = 8058006581) 0.1 % 0.4-1.5 L VOL%O2 ART (test code = 8583201076) 13.8 % 15.0-23.0 L NA (test code = 6542268956) 129 mmol/L 135-145 L K+ (test code = 9421943853) 3.8 mmol/L 3.5-5.0 AC CA IONZ (test code = 5165306188) 4.20 mg/dL 4.50-5.30 L GLUCOSE (test code = 4180720773) 101 mg/dL 70-110 LACTIC ACID (test code = 5671982288) 1.62 mmol/L 0.50-2.20 Lab Interpretation (test code = 43723-4) [facility] 10:54:26* Test Item Value Reference Range Interpretation Comme nts MAGNESIUM (test code = 4283834247) 2.2 mg/dL 1.7-2.4 Lab Interpretation (test cod e = 90786-2) [facility] ([id number])2023-02-22 10:54:25* Test Item Value Reference Range Interpretation Comme nts NA (test code = 4508873230) 130 mmol/L 135-145 L K (test code = 7839603292) 3.8 mmol/L 3.5-5.0 CL (test code = 1595363634) 99 mmol/L 98-108 CO2 TOTAL (test code = 9470853836) 20 mmol/L 23-31 L AGAP (test code = 3733892617) 11 2-16 BUN (test code = 6415540900) 17 mg/dL 7-23 GLUCOSE (test code = 3164078261) 107 mg/dL 70-110 CREATININE (test code = 8383421594) 3.96 mg/dL 0.60-1.25 H TOTAL BILI (test code = 4782700150) 2.5 mg/dL 0.1-1.1 H CALCIUM (test code = 0863398406) 7.8 mg/dL 8.6-10.6 L T PROTEIN (test code = 3095046401) 6.7 g/dL 6.3-8.2 ALBUMIN (test code = 4976296574) 3.5 g/dL 3.5-5.0 ALK PHOS (test code = 6844063951) 332 U/L 34-122 H ALTv (test code = 1742-6) 73 U/L 5-50 H AST(SGOT) (test code = 1106658217) 405 U/L 13-40 H eGFR (test code = 05872-7) 16.9 mL/min/1.73m2 CKD-EPI eGFR (2020). Assuming creatinine has been stable day-to-day for at least three months, the eGFR indicates Category G4 (15 - 29 mL/min/1.73 m2) Lab Interpretation (test code = 92466-1) Abnormal [facility] Arterial Blood Gas.2023-02-21 22:56:14* Test Item Value Reference Range Interpretation Comme nts PH (test code = 2) 7.40 7.35-7.45 PCO2 (test code = 5315777871) 34 See_Comment L [Automated messa ge] The system which generated this result transmitted reference range: 35 - 45 mmHg. The reference range was not used to interpret this result as normal/abnormal. PO2 (test code = 4456184312) 108 See_Comment H QUES [Automated message] The system which generated this result transmitted reference range: 80 - 100 mmHg. The reference range was not used to interpret this result as normal/abnormal. HCO3 (test code = 3858691803) 21 See_Comment L [Automated ServiceBencha ge] The system which generated this result transmitted reference range: 22 - 26 mEq/L. The reference range was not used to interpret this result as normal/abnormal. BE (test code = 1890332331) -3.5 See_Comment L [Automated messa ge] The system which generated this result transmitted reference range: -3.0 - 3.0 mEq/L. The reference range was not used to interpret this result as normal/abnormal. Lab Interpretation (test code = 28698-5) [facility]2023-02-21 22:32:50* Test Item Value Reference Range Interpretation Comme nts Height (test code = 3012520714) 69 in Weight (test code = 0772306857) 206 lbs Systolic BP (test code = 6754490223) 154 mmHg Diastolic BP (test code = 8342983097) 90 mmHg Heart Rate (test code = 3590065359) 98 bpm LVOT stroke volume (test code = 5422178901) 88.00 cm3 EF(Teich) (test code = 9822252065) 57.60 % LVIDD (test code = 8289377981) 6.30 cm LVIDS (test code = 3482415600) 4.30 cm Left Ventricular End Systolic Volume by Teichholz Method (test code = 3495380) 84.8 mL Left Ventricular End Diastolic Volume by Teichholz Method (test code = 2976341) 200.1 mL IVS (test code = 1524430580) 1.34 cm LVPWD (test code = 7751465560) 1.16 cm LVOT diameter (test code = 1207333474) 2.19 cm LVOT area (test code = 4197986066) 3.80 cm2 FS (test code = 7245830070) 31 % MV Peak E Cy (test code = 9151583728) 136.7 cm/s MV Peak A Cy (test code = 2978339479) 93.0 cm/s E/A ratio (test code = 2518815237) 1.47 ratio E wave decelartion time (test code = 5595640835) 0.10 s LA Volume Index (BP) (test code = 8712411143) 40.1 mL/m2 LA volume (BP) (test code = 2996502489) 84.0 mL LVOT peak cy (test code = 0206691751) 133.8 cm/s LVOT mn grad (test code = 8019482623) 3.9 mmHg BSA (test code = 7573767558) 2.09 m2 LA size (test code = 7458536111) 5.2 cm LAV(MOD-sp2) (test code = 4035907014) 68.20 mL LAV(MOD-sp4) (test code = 8937093902) 68.10 mL Tapse (test code = 9040771999) 2.29 cm Ao peak cy (test code = 5580197366) 186.8 cm/s AV LVOT peak gradient (test code = 5605702395) 7.2 mmHg LVOT peak VTI (test code = 0874174787) 23.4 cm AV area peak cy (test code = 5913397624) 2.7 cm2 LV V1 mean (test code = 6802999822) 94.40 cm/s Ao max PG (test code = 8017547816) 14.00 mm[Hg] MV Prop V (test code = 4749658521) 32.40 cm/s Ao root diam (test code = 3878616880) 3.70 cm AV peak gradient (test code = 6008660027) 14.0 mmHg Aortic root (test code = 0450840269) 3.7 cm Ao root annulus (test code = 9902364248) 3.7 cm PW (test code = 6697346656) 1.16 cm 0.6-1.1 EF - 2D (test code = 43748563) 57.60 % Interventricular Septum Diastolic Thickness by 2D (test code = 0086687) 1.34 cm TR Peak Cy (test code = 6137794359) 136.8 cm/s Triscuspid Valve Regurgitation Peak Gradient (test code = 8882288769) 7.5 mmHg TASV (test code = 2335441714) 15.1 cm/s A2C EF (test code = 0576530164) 58.70 % EF(sp2-el) (test code = 0709299402) 60.40 % SV(MOD-sp2) (test code = 3221380356) 85.90 mL LV Diastolic Volume (BP) (test code = 8149988896) 146.0 mL A4C EF (test code = 7121076026) 52.90 % EF(MOD-bp) (test code = 1388157621) 54.70 % EF(sp4-el) (test code = 4186597351) 53.60 % LV Systolic Volume (BP) (test code = 3410266414) 66.2 mL SV(MOD-bp) (test code = 0464872638) 79.80 mL SV(MOD-sp4) (test code = 8332879568) 75.70 mL SV(sp4-el) (test code = 0614422966) 75.90 mL EF (test code = 7933967572) 55 Left Ventricular Stroke Volume by 2-D Biplane-MOD (test code = 7844695) 79.8 mL LV Diastolic Volume Index (BP) (test code = 9923395865) 69.9 mL/m2 LV Systolic Volume Index (BP) (test code = 0032152629) 31.7 mL/m2 Radiology Study observation (narrative) (test code = 77541-5) BOBBY (test code = BOBBY) ?Left?Ventricle: Left [...] aorta. Measures 4 cm and index 1.9 cm/p0SqonnuvuoxaAhb pericardium is normal. No pericardial effusion.Study DetailsStudy [...] lateral and apex.All other segments are normal. [facility] Lactic [id number] 20:41:00* Test Item Value Reference Range Interpretation Comme nts PH (test code = 2) 7.15 7.35-7.45 LL PCO2 (test code = 1961166976) 73 See_Comment H [Automated ServiceBencha [employer]] The system which generated this result transmitted reference range: 35 - 45 mmHg. The reference range was not used to interpret this result as normal/abnormal. PO2 (test code = 1209469758) 147 See_Comment H [Automated messa [employer]] The system which generated this result transmitted reference range: 80 - 100 mmHg. The reference range was not used to interpret this result as normal/abnormal. HCO3 (test code = 6459352630) 25 See_Comment [Automated ServiceBencha [employer]] The system which generated this result transmitted reference range: 22 - 26 mEq/L. The reference range was not used to interpret this result as normal/abnormal. BE (test code = 9373475283) -4.7 See_Comment L [Automated messa ge] The system which generated this result transmitted reference range: -3.0 - 3.0 mEq/L. The reference range was not used to interpret this result as normal/abnormal. THB (test code = 4679622590) 10.1 g/dL 13.5-18.0 L %O2HB (test code = 3132645841) 98.4 % 94.0-99.0 %COHB ART (test code = 7913355700) 0.2 % 0.0-1.5 %METHB ART (test code = 3564213442) 0.2 % 0.4-1.5 L VOL%O2 ART (test code = 5644581470) 14.3 % 15.0-23.0 L NA (test code = 3266038768) 129 mmol/L 135-145 L K+ (test code = 2586583056) 4.4 mmol/L 3.5-5.0 AC CA IONZ (test code = 2842358109) 4.20 mg/dL 4.50-5.30 L GLUCOSE (test code = 4677770482) 159 mg/dL 70-110 H LACTIC ACID (test code = 6250010373) 1.02 mmol/L 0.50-2.20 QUES Lab Interpretation (test code = 86375-7) [facility] + Lactic [id number] 17:21:48* Test Item Value Reference Range Interpretation Comme nts PH (test code = 2) 7.25 7.35-7.45 L PCO2 (test code = 9132132148) 56 See_Comment H [Automated messa ge] The system which generated this result transmitted reference range: 35 - 45 mmHg. The reference range was not used to interpret this result as normal/abnormal. PO2 (test code = 9342188682) 103 See_Comment H [Automated messa ge] The system which generated this result transmitted reference range: 80 - 100 mmHg. The reference range was not used to interpret this result as normal/abnormal. HCO3 (test code = 2361288288) 24 See_Comment [Automated messa ge] The system which generated this result transmitted reference range: 22 - 26 mEq/L. The reference range was not used to interpret this result as normal/abnormal. BE (test code = 5125446710) -4.0 See_Comment L [Automated messa ge] The system which generated this result transmitted reference range: -3.0 - 3.0 mEq/L. The reference range was not used to interpret this result as normal/abnormal. THB (test code = 4465683866) 11.0 g/dL 13.5-18.0 L %O2HB (test code = 2128345042) 96.9 % 94.0-99.0 %COHB ART (test code = 4120910856) 0.3 % 0.0-1.5 %METHB ART (test code = 0270372061) 0.3 % 0.4-1.5 L VOL%O2 ART (test code = 3792836623) 15.1 % 15.0-23.0 NA (test code = 5224051231) 130 mmol/L 135-145 L K+ (test code = 1413063683) 4.1 mmol/L 3.5-5.0 AC CA IONZ (test code = 1059556681) 4.10 mg/dL 4.50-5.30 L GLUCOSE (test code = 9579668596) 146 mg/dL 70-110 H LACTIC ACID (test code = 8051258723) 1.23 mmol/L 0.50-2.20 QUES Lab Interpretation (test code = 04554-3) [facility] (31240) (ALB,T.PRO,BILI T,BU/BC,ALT,AST,ALK PHOS)2023-02-21 11:23:27* Test Item Value Reference Range Interpretation Comme nts TOTAL BILI (test code = 4361991773) 2.3 mg/dL 0.1-1.1 H BILI UNCON (test code = 0275121758) 0.6 mg/dL 0.1-1.1 BILI CONJ (test code = 3920851049) 0.0 mg/dL 0.0-0.3 T PROTEIN (test code = 0295174134) 7.4 g/dL 6.3-8.2 ALBUMIN (test code = 9104218014) 4.1 g/dL 3.5-5.0 ALK PHOS (test code = 9144469366) 334 U/L 34-122 H ALTv (test code = 1742-6) 86 U/L 5-50 H AST(SGOT) (test code = 5142055982) 403 U/L 13-40 H Lab Interpretation (test cod e = 40778-7) Abnormal [facility] WITH [id number] 11:23:27* Test Item Value Reference Range Interpretation Comme nts WBC (test code = 6690-2) 9.36 See_Comment [Automated messa ge] The system which generated this result transmitted reference range: 4.20 - 10.70 10*3/?L. The reference range was not used to interpret this result as normal/abnormal. RBC (test code = 789-8) 2.87 See_Comment L [Automated ServiceBencha ge] The system which generated this result [...] 32.8 g/dL 31.2-35.0 RDW-SD (test code = 58895-9) 63.8 fL 38.5-51.6 H RDW-CV (test code = 788-0) 18.5 % 12.1-15.4 H PLT (test code = 777-3) 56 See_Comment L [Automated messa ge] The system which generated this result transmitted reference range: 150 - 328 10*3/?L. The reference range was not used to interpret this result as normal/abnormal. MPV (test code = 69562-4) 11.0 fL 9.8-13.0 IPF % (test code = 0676812144) 7.4 % 1.2-10.7 Platelet count measured by fluorescence method. NRBC/100 WBC (test code = 2811781855) 0.0 See_Comment [Automated me ssage] The system which generated this result transmitted reference range: 0.0 - 10.0 /100 WBCs. The reference range was not used to interpret this result as normal/abnormal. NRBC x10^3 (test code = 5729002576) See_Comment [Automated messa ge] The system which generated this result transmitted reference range: 10*3/?L. The reference range was not used to interpret this result as normal/abnormal. GRAN MAT (NEUT) % (test code = 770-8) 88.2 % IMM GRAN % (test code = 4896383190) 0.70 % LYMPH % (test code = 736-9) 3.4 % MONO % (test code = 5905-5) 7.3 % EOS % (test code = 713-8) 0.3 % BASO % (test code = 706-2) 0.1 % GRAN MAT x10^3(ANC) (test code = 1343404506) 8.25 10*3/uL 1.99-6.95 H IMM GRAN x10^3 (test code = 7287050910) 0.07 10*3/uL 0.00-0.06 H LYMPH x10^3 (test code = 731-0) 0.32 10*3/uL 1.09-3.23 L MONO x10^3 (test code = 742-7) 0.68 10*3/uL 0.36-1.02 EOS x10^3 (test code = 711-2) 0.03 10*3/uL 0.06-0.53 L BASO x10^3 (test code = 704-7) 0.01-0.09 Lab Interpretation (test code = 45523-0) Abnormal [facility] METABOLIC PANEL (NA, K, CL, CO2, GLUCOSE, BUN, CREATININE, CA)2023-02-21 11:23:27* Test Item Value Reference Range Interpretation Comme nts NA (test code = 7130740048) 131 mmol/L 135-145 L K (test code = 7766595870) 4.2 mmol/L 3.5-5.0 CL (test code = 3051902950) 96 mmol/L 98-108 L CO2 TOTAL (test code = 4304419041) 22 mmol/L 23-31 L AGAP (test code = 0303122902) 13 2-16 BUN (test code = 5591869122) 21 mg/dL 7-23 GLUCOSE (test code = 5013180933) 158 mg/dL 70-110 H CREATININE (test code = 8210111055) 3.61 mg/dL 0.60-1.25 H CALCIUM (test code = 8453855425) 7.2 mg/dL 8.6-10.6 L eGFR (test code = 22352-7) 17.6 mL/min/1.73m2 BOBBY (test code = BOBBY) [...] imaging tests). Lab Interpretation (test code = 42366-2) [facility] (17658) (ALB,T.PRO,BILI T,BU/BC,ALT,AST,ALK PHOS)2023-02-21 11:23:27* Test Item Value Reference Range Interpretation Comme nts TOTAL BILI (test code = 6576869867) 2.3 mg/dL 0.1-1.1 H BILI UNCON (test code = 0612985725) 0.6 mg/dL 0.1-1.1 BILI CONJ (test code = 8106904157) 0.0 mg/dL 0.0-0.3 T PROTEIN (test code = 2084467919) 7.4 g/dL 6.3-8.2 ALBUMIN (test code = 1897639375) 4.1 g/dL 3.5-5.0 ALK PHOS (test code = 2381595416) 334 U/L 34-122 H ALTv (test code = 1742-6) 86 U/L 5-50 H AST(SGOT) (test code = 9530847721) 403 U/L 13-40 H Lab Interpretation (test cod e = 59196-2) [facility]normal [facility] Clinic[facility]th[facility] Time / [id number] 11:08:05* Test Item Value Reference Range Interpretation Comme [facility] PROTIME PATIENT (test code = 5964-2) 13.8 See_Comment H [Automated ServiceBencha ge] The system which generated this result transmitted reference range: 10.1 - 12.6 Seconds. The reference range was not used to interpret this result as normal/abnormal. INR (test code = 6301-6) 1.2 Normal INR <1.1; Warfarin Therapeutic range 2.0 to 3.0 or 2.5 to 3.5, depending upon the indications. Lab Interpretation (test code = 68443-9) Abnormal [facility] 1/2 AG-AB WITH [id number] 04:10:12* Test Item Value Reference Range Interpretation Comme [facility] HIV Semi-quantitative (test code = 17968-2) 0.12 Negative BOBBY (test code = BOBBY) Non-reactive for HIV-1 antigen and HIV-1/HIV-2 antibodies. ?No laboratory evidence of HIV infection. ?Repeat in 2-4 weeks if acute HIV infection is suspected. [facility] 1/2 AG-AB WITH [id number] 04:10:12* Test Item Value Reference Range Interpretation Comme [facility] HIV Semi-quantitative (test code = 68838-5) 0.12 Negative BOBBY (test code = BOBBY) Non-reactive for HIV-1 antigen and HIV-1/HIV-2 antibodies. ?No laboratory evidence of HIV infection. ?Repeat in 2-4 weeks if acute HIV infection is suspected. [facility] + Lactic [id number] 20:02:14* Test Item Value Reference Range Interpretation Comme nts PH (test code = 2) 7.26 7.35-7.45 L PCO2 (test code = 5850845646) 48 See_Comment H [Automated messa ge] The system which generated this result transmitted reference range: 35 - 45 mmHg. The reference range was not used to interpret this result as normal/abnormal. PO2 (test code = 1241867314) 86 See_Comment [Automated messa ge] The system which generated this result transmitted reference range: 80 - 100 mmHg. The reference range was not used to interpret this result as normal/abnormal. HCO3 (test code = 9266197170) 21 See_Comment L [Automated messa ge] The system which generated this result transmitted reference range: 22 - 26 mEq/L. The reference range was not used to interpret this result as normal/abnormal. BE (test code = 9310868641) -6.0 See_Comment L [Automated messa ge] The system which generated this result transmitted reference range: -3.0 - 3.0 mEq/L. The reference range was not used to interpret this result as normal/abnormal. THB (test code = 7814088537) 12.6 g/dL 13.5-18.0 L %O2HB (test code = 6296316977) 94.9 % 94.0-99.0 %COHB ART (test code = 1390097147) 0.4 % 0.0-1.5 %METHB ART (test code = 7732766499) 0.2 % 0.4-1.5 L VOL%O2 ART (test code = 1574303678) 16.9 % 15.0-23.0 NA (test code = 0986044791) 126 mmol/L 135-145 L K+ (test code = 4862925990) 4.2 mmol/L 3.5-5.0 AC CA IONZ (test code = 2604248433) 3.80 mg/dL 4.50-5.30 L GLUCOSE (test code = 9004534641) 161 mg/dL 70-110 H LACTIC ACID (test code = 4463979600) 1.23 mmol/L 0.50-2.20 QUES Lab Interpretation (test code = 12466-0) [facility] (NA, K, CL, CO2, GLUCOSE, BUN, CREATININE, CA)2023-02-20 19:11:54* Test Item Value Reference Range Interpretation Comme nts NA (test code = 9020535237) 127 mmol/L 135-145 L K (test code = 5475025407) 4.4 mmol/L 3.5-5.0 CL (test code = 3255799798) 94 mmol/L 98-108 L CO2 TOTAL (test code = 1946358289) 21 mmol/L 23-31 L AGAP (test code = 0322017780) 12 2-16 BUN (test code = 3971172259) 36 mg/dL 7-23 H GLUCOSE (test code = 1674109560) 160 mg/dL 70-110 H CREATININE (test code = 1594267792) 5.68 mg/dL 0.60-1.25 H CALCIUM (test code = 8449072416) 6.9 mg/dL 8.6-10.6 L eGFR (test code = 16107-9) 10.4 mL/min/1.73m2 BOBBY (test code = BOBBY) [...] imaging tests). Lab Interpretation (test code = 96833-7) Abnormal [facility], [id number] 19:07:13* Test Item Value Reference Range Interpretation Comme nts AMMONIA (test code = 6628052668) 39 umol/L 9-33 H Lab Interpretation (test cod e = 60566-2) Abnormal [facility] GLUCOSE (AUTOMATED)2023-02-20 16:14:29* Test Item Value Reference Range Interpretation Comme nts POCT GLU (test code = 8481083161) 154 mg/dL 70-110 H Lab Interpretation (test cod e = 92566-1) Abnormal [facility] GLUCOSE (AUTOMATED)2023-02-20 16:14:29* Test Item Value Reference Range Interpretation Comme nts POCT GLU (test code = 9596828696) 154 mg/dL 70-110 H Lab Interpretation (test cod e = 37663-0) Abnormal [facility] WITH [id number] 10:35:29* Test Item Value Reference Range Interpretation [...] 34.7 g/dL 31.2-35.0 RDW-SD (test code = 34786-1) 59.2 fL 38.5-51.6 H RDW-CV (test code = 788-0) 18.0 % 12.1-15.4 H PLT (test code = 777-3) 104 See_Comment L [Automated messa ge] The system which generated this result transmitted reference range: 150 - 328 10*3/?L. The reference range was not used to interpret this result as normal/abnormal. MPV (test code = 19033-6) 11.3 fL 9.8-13.0 IPF % (test code = 6455013840) 6.3 % 1.2-10.7 Platelet count measured by fluorescence method. NRBC/100 WBC (test code = 5274648917) 0.0 See_Comment [Automated [employer] ssage] The system which generated this result transmitted reference range: 0.0 - 10.0 /100 WBCs. The reference range was not used to interpret this result as normal/abnormal. NRBC x10^3 (test code = 0754185965) See_Comment [Automated ServiceBencha ge] The system which generated this result transmitted reference range: 10*3/?L. The reference range was not used to interpret this result as normal/abnormal. GRAN MAT (NEUT) % (test code = 770-8) 88.6 % IMM GRAN % (test code = 6379128450) 0.80 % LYMPH % (test code = 736-9) 4.6 % MONO % (test code = 5905-5) 4.9 % EOS % (test code = 713-8) 0.9 % BASO % (test code = 706-2) 0.2 % GRAN MAT x10^3(ANC) (test code = 8913702345) 7.53 10*3/uL 1.99-6.95 H IMM GRAN x10^3 (test code = 6694399432) 0.07 10*3/uL 0.00-0.06 H LYMPH x10^3 (test code = 731-0) 0.39 10*3/uL 1.09-3.23 L MONO x10^3 (test code = 742-7) 0.42 10*3/uL 0.36-1.02 EOS x10^3 (test code = 711-2) 0.08 10*3/uL 0.06-0.53 BASO x10^3 (test code = 704-7) 0.01-0.09 Lab Interpretation (test code = 20235-5) [facility]2023-[facility]-29 10:26:22* Test Item Value Reference Range Interpretation Comme nts PHOSPHORUS (test code = 4258398614) 6.4 mg/dL 2.5-5.0 H Lab Interpretation (test cod e = 61473-2) [facility]2023-10-29 10:26:22* Test Item Value Reference Range Interpretation Comme nts MAGNESIUM (test code = 0012337106) 2.1 mg/dL 1.7-2.4 Lab Interpretation (test cod e = 92891-3) Normal [facility] (NA, K, CL, CO2, GLUCOSE, BUN, CREATININE, CA)2023-02-20 10:26:22* Test Item Value Reference Range Interpretation Comme nts NA (test code = 8116068530) 125 mmol/L 135-145 L K (test code = 3412217124) 4.4 mmol/L 3.5-5.0 CL (test code = 8270194756) 91 mmol/L 98-108 L CO2 TOTAL (test code = 4058093769) 15 mmol/L 23-31 L AGAP (test code = 4004429933) 19 2-16 H BUN (test code = 6573990594) 49 mg/dL 7-23 H GLUCOSE (test code = 6880622092) 154 mg/dL 70-110 H CREATININE (test code = 6821463616) 8.54 mg/dL 0.60-1.25 H CALCIUM (test code = 9721418883) 6.1 mg/dL 8.6-10.6 L eGFR (test code = 94919-8) 6.5 mL/min/1.73m2 BOBBY (test code = BOBBY) [...] imaging tests). Lab Interpretation (test code = 32269-9) [facility] Clinic[facility] / [id number] 09:53:41* Test Item Value Reference Range Interpretation Comme earle FELIZ PATIENT (test code = 5964-2) 15.5 See_Comment H [Automated ServiceBencha [employer]] The system which generated this result transmitted reference range: 10.1 - 12.6 Seconds. The reference range was not used to interpret this result as normal/abnormal. INR (test code = 6301-6) 1.4 Normal INR <1.1; Warfarin Therapeutic range 2.0 to 3.0 or 2.5 to 3.5, depending upon the indications. Lab Interpretation (test code = 88427-3) [facility] Clinic[facility] FUNCTION PANEL (19067) (ALB,T.PRO,BILI T,BU/BC,ALT,AST,ALK PHOS)2023-02-20 06:50:43* Test Item Value Reference Range Interpretation Comme nts TOTAL BILI (test code = 9323824114) 2.3 mg/dL 0.1-1.1 H BILI UNCON (test code = 3473368272) 0.5 mg/dL 0.1-1.1 BILI CONJ (test code = 3705622859) 0.0 mg/dL 0.0-0.3 T PROTEIN (test code = 7425441367) 6.7 g/dL 6.3-8.2 ALBUMIN (test code = 1965426470) 3.0 g/dL 3.5-5.0 L ALK PHOS (test code = 6998643457) 324 U/L 34-122 H ALTv (test code = 1742-6) 98 U/L 5-50 H AST(SGOT) (test code = 9390003491) 384 U/L 13-40 H Lab Interpretation (test cod e = 81325-5) [facility]normal [facility], SERUM OR [id number] 21:10:51 * Test Item Value Reference Range Interpretation Comme nts OSMOLALITY (test code = 2692-2) 278 See_Comment [Automated ServiceBencha ge] The system which generated this result transmitted reference range: 278 - 305 mOsm/kg. The reference range was not used to interpret this result as normal/abnormal. Lab Interpretation (test code = 55089-8) Normal [facility] ClinicOSMOLALITY, SERUM OR [id number] 21:10:51 * Test Item Value Reference Range Interpretation Comme nts OSMOLALITY (test code = 2692-2) 278 See_Comment [Automated ServiceBencha ge] The system which generated this result transmitted reference range: 278 - 305 mOsm/kg. The reference range was not used to interpret this result as normal/abnormal. Lab Interpretation (test code = 59162-0) Normal [facility] ClinicAMMONIA, [id number] 14:08:31* Test Item Value Reference Range Interpretation Comme nts AMMONIA (test code = 5764856445) 25 umol/L 9-33 Lab Interpretation (test cod e = 86625-3) Normal [facility]. METABOLIC PANEL (53811)2023-02-19 13:44:54* Test Item Value Reference Range Interpretation Comme nts NA (test code = 2365477485) 121 mmol/L 135-145 L K (test code = 2883876895) 4.7 mmol/L 3.5-5.0 CL (test code = 3201722530) 90 mmol/L 98-108 L CO2 TOTAL (test code = 6720879880) 13 mmol/L 23-31 L AGAP (test code = 5721591712) 18 2-16 H BUN (test code = 6074157012) 61 mg/dL 7-23 H GLUCOSE (test code = 1698930703) 92 mg/dL 70-110 CREATININE (test code = 2484531901) 10.78 mg/dL 0.60-1.25 H TOTAL BILI (test code = 1695560487) 2.6 mg/dL 0.1-1.1 H CALCIUM (test code = 9901435094) 5.9 mg/dL 8.6-10.6 LL T PROTEIN (test code = 5110889813) 6.6 g/dL 6.3-8.2 ALBUMIN (test code = 3810852057) 3.1 g/dL 3.5-5.0 L ALK PHOS (test code = 3524048806) 304 U/L 34-122 H ALTv (test code = 1742-6) 98 U/L 5-50 H AST(SGOT) (test code = 3080513607) 387 U/L 13-40 H eGFR (test code = 80080-0) 5.0 mL/min/1.73m2 BOBBY (test code = BOBBY) [...] imaging tests). Lab Interpretation (test code = 27191-3) [facility] 21 + LACTIC [id number] 05:32:17* Test Item Value Reference Range Interpretation Comme nts PH (test code = 2437749738) 7.23 7.32-7.42 L PCO2 JUAN LUIS (test code = 8661882344) 39 See_Comment L [Automated messa ge] The system which generated this result transmitted reference range: 41 - 51 mmHg. The reference range was not used to interpret this result as normal/abnormal. PO2 JUAN LUIS (test code = 7770813761) 39 See_Comment [Automated messa ge] The system which generated this result transmitted reference range: 25 - 40 mmHg. The reference range was not used to interpret this result as normal/abnormal. HCO3 JUAN LUIS (test code = 2248549416) 16 See_Comment L [Automated messa ge] The system which generated this result transmitted reference range: 24 - 28 mEq/L. The reference range was not used to interpret this result as normal/abnormal. AC VBE(BEAKER) (test code = 8322803570) -11.0 mEq/L THB JUAN LUIS (test code = 5764821078) 12.0 g/dL 13.5-18.0 L %O2HB JUAN LUIS (test code = 4812268319) 63.9 % 52.0-63.0 H %COHB JUAN LUIS (test code = 7347583070) 0.2 % 0.0-1.5 %METHB JUAN LUIS (test code = 1853185324) 0.0 % 0.4-1.5 L VOL%O2 JUAN LUIS (test code = 3161059451) 10.8 % 6.0-12.0 NA (test code = 8027297886) 121 mmol/L 135-145 L K+ (test code = 0316056941) 4.8 mmol/L 3.5-5.0 AC CA IONZ (test code = 5911564616) 3.40 mg/dL 4.50-5.30 L GLUCOSE (test code = 2461948324) 107 mg/dL 70-110 LACTIC ACID (test code = 4650116750) 1.52 mmol/L 0.50-2.20 Lab Interpretation (test code = 10557-3) [facility] + LACTIC [id number] 05:32:17* Test Item Value Reference Range Interpretation Comme nts PH (test code = 1353583225) 7.23 7.32-7.42 L PCO2 JUAN LUIS (test code = 1899029081) 39 See_Comment L [Automated messa ge] The system which generated this result transmitted reference range: 41 - 51 mmHg. The reference range was not used to interpret this result as normal/abnormal. PO2 JUAN LUIS (test code = 0290403019) 39 See_Comment [Automated messa ge] The system which generated this result transmitted reference range: 25 - 40 mmHg. The reference range was not used to interpret this result as normal/abnormal. HCO3 JUAN LUIS (test code = 7493983122) 16 See_Comment L [Automated messa ge] The system which generated this result transmitted reference range: 24 - 28 mEq/L. The reference range was not used to interpret this result as normal/abnormal. AC VBE(BEAKER) (test code = 8344143759) -11.0 mEq/L THB JUAN LUIS (test code = 7729968527) 12.0 g/dL 13.5-18.0 L %O2HB JUAN LUIS (test code = 6037081129) 63.9 % 52.0-63.0 H %COHB JUAN LUIS (test code = 8051232753) 0.2 % 0.0-1.5 %METHB JUAN LUIS (test code = 5498615551) 0.0 % 0.4-1.5 L VOL%O2 JUAN LUIS (test code = 4985131680) 10.8 % 6.0-12.0 NA (test code = 3847978677) 121 mmol/L 135-145 L K+ (test code = 6377964289) 4.8 mmol/L 3.5-5.0 AC CA IONZ (test code = 3327863927) 3.40 mg/dL 4.50-5.30 L GLUCOSE (test code = 9480092982) 107 mg/dL 70-110 LACTIC ACID (test code = 6697356919) 1.52 mmol/L 0.50-2.20 Lab Interpretation (test code = 64179-4) [facility]normal [facility]"
[2024-05-23 10:53] VITALS: BP 138/97; TEMP 98.6; O2SAT 100
== END 2024-05-22 23:51 ==
LOC: ER 21:17
DX: S06.6X0A Traumatic subarachnoid hemorrhage without loss of consciousness, initial encounter (principal); D69.6 Thrombocytopenia, unspecified; S00.81XA Abrasion of other part of head, initial encounter; F10.20 Alcohol dependence, uncomplicated; Z91.81 History of falling; K74.60 Unspecified cirrhosis of liver; I10 Essential (primary) hypertension; Z72.0 Tobacco use
CPT/HCPCS: 85025; 36415; 85610; 85730; 80053; 70450; 72125; 96375; 96374; 99285; J1171 ×2; J2405 ×2

== ENCOUNTER 2024-06-20 19:45 | Emergency (ER) | payer OTHER ==
--- OUTSIDE RECORDS SUMMARY | 2024-06-20 19:55 | XMS REPORT | Continuity of Care Document ---
Author Name Unknown Address [address] [place] [address] [facility] Address [address] [place] [address] Care Team Providers Care Revenue Stamp Clerk Name Role Phone Pcp, Pcp Primary Care Physician Unavailab le Doctor Unassigned, [place] Attending Clinician U saleem Guajardo MD, Lizette Anderson Attending Clinician [phone] Nikita Contreras MD Attending Clinician [phone] Jesús Duval MD Attending Clinician [phone] Alejandro Yun MD Attending Clinician [phone] Ramu Shearer MD Attending Clinician [phone] Betty Parker MD Attending Clinician [phone] BETTY PARKER Attending Clinician Unavailable ANDREW MONTANEZ Attending Clinician Unavailable ANDREW MONTANEZ Attending Clinician Unavailable ARMANDO HICKEY Attending Clinician UnavailARMANDO Paul Attending Clinician UnavailDavon Pearce MD Attending Clinician [phone] DAVON GARCIA Attending Clinician Unavailable Doctor Unassigned, [place] Attending Clinician U saleem Joy RN, Cielo Carr Attending Clinician Unavail able ARPIT RUST Attending Clinician Unavailab Zion Montoya DO Attending Clinician [phone] Tony Abraham MD Attending Clinician + [phone] Alan Ballard DO Attending Clinician [phone] Lisa Turner MD Attending Clinician [phone] Arpit Rust MD Attending Clinician [phone] Ute Spencer MD Attending Clinician [phone] Zeynep Orozco MD Attending Clinician [phone] RADIOLOGY Attending Clinician Unavailable Radiology Attending Clinician Unavailable ABBI ALICIA Attending Clinician Unavailable Betty Parker MD Admitting Clinician [phone] BETTY PARKER Admitting Clinician Unavailable ANDREW MONTANEZ Admitting Clinician Unavailable ALAN BALLARD Admitting Clinician Unavailable Alan Ballard DO Admitting Clinician [phone] JANELL ORTEGA Admitting Clinician Unavailable Payers Payer Name Policy Type Policy Number Effective Date Expirati on Date Source [facility] [id number] 2010 00:00:00 [employer] [id number] 2010 00:00:00 Problems Condition Name Condition Details Condition Category Status Onset Date Resolution Date Last Treatment Date Treating Clinician Comments Source Alcoholic cirrhosis (CMS/HCC) Alcoholic cirrhosis (CMS/HCC) Disease Active 05-31 00:00: 00 Shama Salazar Hyponatrem ia Hyponatrem ia Disease Active 05-31 00:00: 00 Shama Salazar Thrombocyt openia Thrombocyt openia Disease Active 05-31 00:00: 00 Shama Salazar Closed fracture of right ankle, initial encounter Closed fracture of right ankle, initial encounter Disease Active 05-28 00:00: 00 Memelsa Salazar Subarachno id hemorrhage (CMS/HCC) Subarachno id hemorrhage (CMS/HCC) Disease Active 05-23 00:00: 00 Shama Salazar Closed fracture of right ankle Closed fracture of right ankle Disease Active 05-22 00:00: 00 Shama Salazar Cardiomyop athy, unspecifie d type Cardiomyop athy, unspecifie d type Disease Active 07-12 00:00: 00 [facility] Other forms of dyspnea Other forms of dyspnea Disease Active 07-12 00:00: 00 [facility] Chest pain, unspecifie d type Chest pain, unspecifie d type Disease Active 07-12 00:00: 00 [facility] Hypotensio n Hypotensio n Disease Active 2022-04 00:00: 00 [facility] Alcoholic cirrhosis of liver with ascites Alcoholic cirrhosis of liver with ascites Disease Recurre nce 2022-04 00:00: 00 [facility] Allergies, Adverse Reactions, Alerts Allergy Name Allergy Type Status Severity Reaction(s) Onset Date Inactive Date Treating Clinician Comments Source Nsaids Propensi ty to adverse reaction s Active 05-23 00:00: 00 Shama Salazar NSAIDS (NON-GERMÁN ROIDAL ANTI-INF LAMMATOR Y DRUG) Drug Class Active Unknown-Cmnt 2022-04 00:00: 00 [facility] Nsaids (Non-Germán roidal Anti-Inf lammator y Drug) Propensi ty to adverse reaction s Active Unknown - See comments 2022-04 00:00: 00 [facility] Nsaids (Non-Germán roidal Anti-Inf lammator y Drug) Propensi ty to adverse reaction s Active Unknown - See comments 2022-04 00:00: 00 [facility] NO KNOWN ALLERGIE S Drug Class Active [facility] Family History Family Member Diagnosis Comments Start Date Stop Date Sourc e Natural father Cancer [facility] Social History Social Habit Start Date Stop Date Quantity Comments Source Gender identity 2023-07-16 21:00:37 Identifies as male gender (finding) [facility] History of tobacco use Smokes tobacco [facility] Sexual orientation [facility] History of Social function 2024-05-24 00:00:00 2024-05-24 00:00:00 [facility] Gigi Salazar Alcohol intake 2023-07-13 00:00:00 2023-07-13 00:00:00 1 /d [facility] Alcoholic beverage intake 2023-07-13 00:00:00 2023-07-13 00:00:00 1 /d [facility] Tobacco use and exposure 2023-03-03 00:00:00 2023-03-03 00:00:00 Smokeless tobacco non-user [facility] Sex assigned at 1965 00:00:00 1965 00:00:00 [facility] Smoking Status Start Date Stop Date Source Tobacco smoking consumption unknown [facility] Smokes tobacco daily Shama Salazar Ex-smoker 2023-03-03 00:00:00 2023-03-03 00:00:00 [facility] Medications Ordered Medication Name Filled Medication Name Start Date Stop Date Current Medication? Ordering Clinician Indication Dosage Frequency Signature (SIG) Comments Components Source albuterol HFA 90 mcg/act inhaler albuterol HFA 90 mcg/act inhaler 05-31 16:26: 39 Yes 2{puff} Q6H Inhale 2 puffs every 6 hours if needed for wheezing. Shama Salazar DULoxetine (Cymbalta) [address] capsule DULoxetine (Cymbalta) [address] capsule 05-31 16:26: 39 Yes 60mg QD Take 60 mg by mouth 1 time each day. Do not crush or chew. Shama Salazar mirtazapine (Remeron) 30 MG tablet mirtazapine (Remeron) 30 MG tablet 05-31 16:26: 39 Yes 30mg Take 30 mg by mouth at bedtime. Shama Salazar Multiple Vitamin (multivitam in) tablet Multiple Vitamin (multivitam in) tablet 05-31 16:26: 39 Yes 1{tbl} QD Take 1 tablet by mouth 1 time each day. Shama Salazar testosteron e cypionate (Depo-Testo sterone) 200 MG/ML injection testosteron e cypionate (Depo-Testo sterone) 200 MG/ML injection 05-31 16:26: 39 Yes 200mg Q1W Inject 200 mg into the shoulder, thigh, or buttocks every 7 days. TUESDAY Shama Salazar ferrous gluconate (Fergon) 324 (38 Fe) MG tablet ferrous gluconate (Fergon) 324 (38 Fe) MG tablet 05-31 16:26: 39 Yes 324mg Take 324 mg by mouth 3 times a week. Shama Salazar ondansetron (Zofran) 4 MG tablet ondansetron (Zofran) 4 MG tablet 05-31 16:26: 39 Yes 4mg Take 4 mg by mouth every 12 hours if needed for nausea or vomiting. Shama Salazar rosuvastati n (Crestor) 40 MG tablet rosuvastati n (Crestor) 40 MG tablet 05-31 16:26: 39 Yes 40mg QD Take 40 mg by mouth 1 time each day. Shama Salazar melatonin 5 MG tablet melatonin 5 MG tablet 05-31 16:26: 39 Yes 10mg Take 10 mg by mouth at bedtime. Shama Salazar coenzyme Q-10 100 MG capsule coenzyme Q-10 100 MG capsule 05-31 16:26: 39 Yes 100mg QD Take 100 mg by mouth 1 time each day. Shama Salazar tadalafil (Cialis) 10 MG tablet tadalafil (Cialis) 10 MG tablet 05-31 16:26: 35 05-23 00:00 :00 No 10mg Q24H Take 10 mg by mouth daily as needed for erectile dysfunctio n. Shama Salazar acetaminoph en-codeine (Tylenol w/ Codeine #3) 300-30 MG per tablet 1 tablet acetaminoph en-codeine (Tylenol w/ Codeine #3) 300-30 MG per tablet 1 tablet 05-31 13:00: 00 Yes 1{tbl} Q6H 1 tablet, Oral, Every 6 hours PRN, severe pain (7-10), Starting on Tue05/31/24 at 1300 Shama Salazar enoxaparin (Lovenox) 40 mg/0.4mL injection enoxaparin (Lovenox) 40 mg/0.4mL injection 05-31 00:00: 00 06-20 23:59 :00 No 40mg QD Inject 0.4 mL under the skin 1 time each day for 20 days. Shama Salazar acetaminoph en-codeine (Tylenol w/ Codeine #3) 300-30 MG tablet acetaminoph en-codeine (Tylenol w/ Codeine #3) 300-30 MG tablet - 00:00: 00 06-05 23:59 :00 No [id number] 1{tbl} Q6H Take 1 tablet by mouth every 6 hours if needed for severe pain (7-10) for up to 5 days. Shama Salazar enoxaparin (Lovenox) syringe 40 mg enoxaparin (Lovenox) syringe 40 mg 05-30 21:00: 00 Yes 40mg QD 40 mg, Subcutaneo us, Daily, First dose on Tue05/30/24 at 2100 Shama Salazar GenTeal Tears Night-Time ointment GenTeal Tears Night-Time ointment 05-29 20:28: 07 Yes [id number] 3D Both Eyes, 3 times daily PRN, dry eyes, Starting on Tue05/29/24 at 2028 Shama Salazar ceFAZolin Sodium (Ancef) 2 g in sterile water injection ceFAZolin Sodium (Ancef) 2 g in sterile water injection 05-29 18:30: 00 05-30 10:35 :00 No 2g Q8H 2 g, Intravenou s, at 200 mL/hr, Administer over 6 Minutes, Every 8 hours, First dose (after last reorder) on Tue05/29/24 at 1830, For 3 doses, Recovery & On Unit, Suspected Indication (Select all that apply): Surgical Prophylaxi s Shama Salazar HYDROmorpho ne PF (Dilaudid) injection 0.5 mg HYDROmorpho ne PF (Dilaudid) injection 0.5 mg 2- 14:34: 44 05-29 15:10 :59 No .5mg 0.5 mg, Intravenou s, Every 10 min PRN, severe pain (7-10), Starting on Tue05/29/24 at 1434, For 4 doses, Recovery (only), Hold for respirator y rate or 8 or less. Shama Yu Epic acetaminoph en (Tylenol) tablet 650 mg acetaminoph en (Tylenol) tablet 650 mg 05-26 11:00: 39 Yes 650mg Q6H 650 mg, Oral, Every 6 hours PRN, mild pain (1-3), Starting on Tue05/26/24 at 1100, Max acetaminop hen = 4000mg/day (4gm/day) Shama Yu Epic acetaminoph en-codeine (Tylenol w/ Codeine #3) 300-30 MG per tablet 1 tablet acetaminoph en-codeine (Tylenol w/ Codeine #3) 300-30 MG per tablet 1 tablet 05-26 10:59: 51 05-31 10:58 :51 No 1{tbl} Q4H 1 tablet, Oral, Every 4 hours PRN, severe pain (7-10), Starting on Tue05/26/24 at 1059, For 5 days Shama Yu Epic HYDROcodone -acetaminop hen ([place]) 5-325 MG per tablet 1 tablet HYDROcodone -acetaminop hen ([place]) 5-325 MG per tablet 1 tablet 05-25 20:22: 33 05-26 11:00 :21 No 1{tbl} Q6H 1 tablet, Oral, Every 6 hours PRN, severe pain (7-10), Starting on Tue05/25/24 at 2021 Shama Yu Epic acetaminoph en (Tylenol) tablet 650 mg acetaminoph en (Tylenol) tablet 650 mg 05-25 17:00: 00 05-25 20:26 :32 No 650mg Q6H 650 mg, Oral, Every 6 hours, First dose on Tue05/25/24 at 1700, Max acetaminop hen = 4000mg/day (4gm/day) Shama Yu Epic diphenhydrA MINE (BENADryl) injection 12.5 mg diphenhydrA MINE (BENADryl) injection 12.5 mg 05-25 02:35: 39 Yes 12.5mg Q6H 12.5 mg, Intravenou s, Every 6 hours PRN, itching, Starting on Tue05/25/24 at 0235 Shama Salazar traZODone (Desyrel) tablet 50 mg traZODone (Desyrel) tablet 50 mg 05-24 21:00: 00 Yes 50mg 50 mg, Oral, Nightly, First dose on Tue05/24/24 at 2100 Shama Salazar heparin injection 5,000 Units heparin injection 5,000 Units 05-24 17:45: 00 05-30 16:54 :42 No 5000U Q8H 5,000 Units, Subcutaneo us, Every 8 hours, First dose on Tue05/24/24 at 1745, On hold since Tue05/29/2024 at 0000 until manually unheld Shama Salazar pantoprazol e (ProtoNix) EC tablet 40 mg pantoprazol e (ProtoNix) EC tablet 40 mg 05-24 07:30: 00 Yes 40mg 40 mg, Oral, Daily before breakfast, First dose on Tue05/24/24 at 0730, Do not crush, chew, or split. Shama Salazar potassium chloride CR (Klor-Con M20) ER tablet 40 mEq potassium chloride CR (Klor-Con M20) ER tablet 40 mEq 05-24 07:00: 00 05-24 07:57 :00 No 40meq 40 mEq, Oral, Once, On Tue05/24/24 at 0700, For 1 dose, For patients able to take medication s orally or via feeding tube >/= 14 Welsh, may dissolve each 20 mEq tablet in 4 oz of water. Allow about 2 minutes for the tablets to disintegra te. Stir before giving to prepare slurry and administer . Please exclude patient's with feeding tube less than 14 Welsh (Dobhoff, J-tube, etc) and pediatric and patients Do not crush or chew. Shama Salazar primidone (Mysoline) tablet 50 mg primidone (Mysoline) tablet 50 mg 05-23 21:00: 00 Yes 50mg 50 mg, Oral, Nightly, First dose on Tue05/23/24 at 2100 Shama Yu [facility] mirtazapine (Remeron) tablet 30 mg mirtazapine (Remeron) tablet 30 mg 05-23 21:00: 00 Yes 30mg 30 mg, Oral, Nightly, First dose on Tue05/23/24 at 2100, On hold since Tue05/29/2024 at 2054 until manually unheld Shama Yu [facility] traZODone (Desyrel) tablet 50 mg traZODone (Desyrel) tablet 50 mg 05-23 21:00: 00 05-24 07:31 :26 No 50mg 50 mg, Oral, Nightly, First dose on Tue05/23/24 at 2100 Shama Yu [facility] furosemide (Lasix) tablet 40 mg furosemide (Lasix) tablet 40 mg 05-23 18:00: 00 Yes 40mg QD Take 40 mg by mouth 1 time each day. Shama Yu [facility] spironolact one (Aldactone) tablet 25 mg spironolact one (Aldactone) tablet 25 mg 05-23 18:00: 00 Yes 25mg QD Take 25 mg by mouth 1 time each day. Shama Yu [facility] gabapentin (Neurontin) capsule 100 mg gabapentin (Neurontin) capsule 100 mg 05-23 17:45: 00 Yes 100mg [id number] 3D 100 mg, Oral, 3 times daily, First dose on Tue05/23/24 at 1745 Shama Yu [facility] DULoxetine (Cymbalta) DR capsule 60 mg DULoxetine (Cymbalta) DR capsule 60 mg 05-23 17:45: 00 Yes 60mg QD 60 mg, Oral, Daily, First dose on Tue05/23/24 at 1745, Do not crush or chew. Shama Yu [facility] potassium chloride CR (Klor-Con M20) ER tablet 20 mEq potassium chloride CR (Klor-Con M20) ER tablet 20 mEq 05-23 17:00: 00 Yes 20meq Q.[id number] 3D 20 mEq, Oral, 3 times daily, First dose on Tue05/23/24 at 1700, Best given with food and plenty of water to minimize gastric irritation . Do not crush or chew., On hold since Tue05/27/2024 at 0857 until manually unheld Shama Salazar carvedilol (Coreg) tablet 6.25 mg carvedilol (Coreg) tablet 6.25 mg 05-23 17:00: 00 Yes 6.25mg 6.25 mg, Oral, 2 times daily with meals, First [facility] Tue05/23/24 [facility]00 [facility] rosuvast[facility] n (Crestor) tablet 40 mg rosuvastati n (Crestor) tablet 40 mg 05-23 17:00: 00 Yes 40mg QD 40 mg, Oral, Daily, First dose on Tue05/23/24 at 1700 [facility] methocarbam ol (Robaxin) tablet 750 mg methocarbam ol (Robaxin) tablet 750 mg 05-23 17:00: 00 Yes 750mg Q.5D 750 mg, Oral, 2 times daily, First dose on Tue05/23/24 at 1700 [facility] traMADol (Ultram) tablet 50 mg traMADol (Ultram) tablet 50 mg 05-23 14:16: 21 05-24 07:31 :32 No 50mg Q6H 50 mg, Oral, Every 6 hours PRN, severe pain (7-10), Starting on Tue05/23/24 at 1416 [facility] sennosides (Senokot) tablet 8.6 mg sennosides (Senokot) tablet 8.6 mg 05-23 09:00: 00 Yes 1{tbl} Q.5D 8.6 mg (1 tablet), Oral, 2 times daily, First dose on Tue05/23/24 at 0900 Shama Salazar famotidine (Pepcid) tablet 20 mg famotidine (Pepcid) tablet 20 mg 05-23 09:00: 00 Yes 20mg QD 20 mg, Oral, Daily, First dose on Tue05/23/24 at 0900 Shama Salazar morphine PF injection 4 mg morphine PF injection 4 mg 05-23 07:00: 00 05-23 07:03 :00 No 4mg 4 mg, Intravenou s, Once, On Tue05/23/24 at 0700, For 1 dose, Administer IVP. Shama Salazar lidocaine (Xylocaine) 1 % injection 10 mL lidocaine (Xylocaine) 1 % injection 10 mL 05-23 06:50: 00 05-23 07:04 :00 No 10mL 10 mL, Infiltrati on, Once, On Tue05/23/24 at 0650, For 1 dose Shama Salazar sodium chloride (NS) 0.9 % flush 10 mL sodium chloride (NS) 0.9 % flush 10 mL 05-23 06:05: 00 Yes 10mL Q12H 10 mL, Intravenou s, Every 12 hours, First dose on Tue05/23/24 at 0605, Administer at least once every 12 hours Shama Salazar levETIRAcet am (Keppra) tablet 500 mg levETIRAcet am (Keppra) tablet 500 mg 05-23 06:05: 00 06-03 06:04 :00 No 500mg Q12H [Order 1 Start] Name: levETIRAce lopez (Keppra) tablet 500 mg Signed Summary: 500 mg, Oral, Every 12 hours, First dose on Tue05/23/24 at 0605, For 264 hours [Order 1 End] [Order 2 Start] Name: levETIRAce lopez (Keppra) 100 MG/ML solution 500 mg Signed Summary: 500 mg, Per G Tube, Every 12 hours, First dose on Tue05/23/24 at 0605, For 264 hours [Order 2 End] [Order 3 Start] Name: levETIRAce lopez (Keppra) 100 MG/ML solution 500 mg Signed Summary: 500 mg, Nasogastri c, Every 12 hours, First dose on Tue05/23/24 at 0605, For 264 hours [Order 3 End] Shama Salazar insulin lispro (HumaLOG, Admelog) injection 2-8 Units insulin lispro (HumaLOG, Admelog) injection 2-8 Units 05-23 06:04: 13 Yes 2U Q6H 2-8 Units, Subcutaneo us, Every 6 hours PRN, high blood sugar, Starting on Tue05/23/24 at 0604, For BG < 70, follow hypoglycem ia protocol and notify ordering provider. If patient can eat or drink, give oral carbohydra te as ordered per hypoglycem ia protocol. If patient NPO, give dextrose 50 % IV as ordered per hypoglycem ia protocol. If NPO and no IV access, give glucagon IM as ordered per hypoglycem ia protocol. Check BG every 15 minutes and repeat treatment if continued BG < 80., Correction Insulin Dosing: (DO NOT CHANGE DEFAULT SELECTION/ VALUES): Starting, BG < 70 instructio ns: Follow Hypoglycem ia Orders, BG 70-149 instructio ns: No Dose Needed, BG 150-199: 2, BG 200-249: 4, BG 250-299: 6, BG >/= 300: 8, BG > 300 instructio ns: Contact Provider Shama Salazar glucagon injection 1 mg glucagon injection 1 mg 05-23 06:04: 10 Yes 1mg 1 mg, Intramuscu lar, As needed, For BG < 70 mg/dL if no IV access and patient is either Unconsciou s, unable to swallow or npo, Starting on Tue05/23/24 at 0604, For BG < 70 mg/dL if no IV access and patient is either Unconsciou s, unable to swallow or npo and notify MD. Shama Yu Barak ITC dextrose 50 % solution 25 g dextrose 50 % solution 25 g 05-23 06:04: 10 Yes 25g 25 g, Intravenou s, As needed, other, if Blood Glucose </= 50 mg/dL, Starting on Tue05/23/24 at 0604, If BG </=50 mg/dL, give 50 mL of D50W IV push STAT and notify MD. Shama Yu Barak ITC dextrose 50 % solution 12.5 g dextrose 50 % solution 12.5 g 05-23 06:04: 10 Yes 12.5g 12.5 g, Intravenou s, As needed, low blood sugar, if Blood Glucose 51- 69 mg/dL, Starting on Tue05/23/24 at 0604, For BG 51-69 mg/dL and patient UNCONSCIOU S OR UNABLE TO SWALLOW OR NPO: Give 25 mL of D50W IV push and notify . Shama Salazar ipratropium -albuterol (Duo-Neb) 0.5-2.5 mg/3 mL nebulizer solution 3 mL ipratropium -albuterol (Duo-Neb) 0.5-2.5 mg/3 mL nebulizer solution 3 mL 05-23 06:02: 20 Yes 3mL Q4H 3 mL, Nebulizati on, Every 4 hours PRN, wheezing, Starting on Tue05/23/24 at 0602 Shama Salazar naloxone (Narcan) injection 0.04 mg naloxone (Narcan) injection 0.04 mg 05-23 06:02: 20 Yes .04mg 0.04 mg, Intravenou s, As needed, opioid reversal, every 2 mins PRN for Narcotic Reversal, Starting on Tue05/23/24 at 0602, For 8 doses, Give up to 8 doses of 0.04 mg as needed to reverse over sedation. Keep available for immediate use. Call ordering physician STAT. (Dilute 0.4 mg/mL in 9 mL of saline) Shama Salazar bisacodyl (Dulcolax) suppository 10 mg bisacodyl (Dulcolax) suppository 10 mg 05-23 06:02: 20 Yes 10mg Q24H 10 mg, Rectal, Daily PRN, constipati on, Starting on Tue05/23/24 at 0602 Shama Salazar ondansetron (Zofran) injection 4 mg ondansetron (Zofran) injection 4 mg 05-23 06:02: 20 Yes 4mg Q6H 4 mg, Intravenou s, Every 6 hours PRN, nausea, vomiting, Starting on Tue05/23/24 at 0602 Shama Salazar hydrALAZINE injection 10 mg hydrALAZINE injection 10 mg 05-23 06:02: 19 Yes 10mg Q4H 10 mg, Intravenou s, Every 4 hours PRN, high blood pressure, SBP >150, Starting on Tue05/23/24 at 0602, If goal BP is not achieved after 30 minutes of administer ing medication , Notify MD. Recheck Vitals Q15 minutes x 4. Avoid use in patients with HR >110 bpm. Shama Salazar labetalol injection 10 mg labetalol injection 10 mg 05-23 06:02: 19 Yes 10mg Q4H 10 mg, Intravenou s, Every 4 hours PRN, high blood pressure, SBP >150, Starting on Tue05/23/24 at 0602, If goal BP is not achieved after 30 minutes of administer ing medication , Notify MD. Recheck Vitals Q15 minutes x 4. Avoid use in patients with HR < 55 bpm. Shama Salazar sodium chloride 0.9 % infusion 10 mL sodium chloride 0.9 % infusion 10 mL 05-23 06:02: 19 Yes 10mL 10 mL, Intravenou s, As needed, For antibiotic flush to clear line, replace bag every 24 hours., Starting on Tue05/23/24 at 0602 Shama Salazar sodium chloride (NS) 0.9 % flush 10 mL sodium chloride (NS) 0.9 % flush 10 mL 05-23 06:02: 19 Yes 10mL 10 mL, Intravenou s, As needed, line care, Line Flush, Starting on Tue05/23/24 at 0602 Shama Salazar levETIRAcet am (Keppra) injection 1,000 mg levETIRAcet am (Keppra) injection 1,000 mg 05-23 05:20: 00 05-23 06:14 :00 No 1000mg 1,000 mg, Intravenou s, Once, On Tue05/23/24 at 0520, For 1 dose Shama Salazar morphine PF injection 4 mg morphine PF injection 4 mg 05-23 04:55: 00 05-23 05:01 :00 No 4mg 4 mg, Intravenou s, Once, On Tue05/23/24 at 0455, For 1 dose, Administer IVP. Shama Salazar HYDROcodone -acetaminop hen (NORCO) 10-325 mg tablet 1 tablet 11-04 07:00: 00 11-04 06:31 :00 No 1{tbl} 1 tablet, Oral, ONCE NOW, 1 dose, On Tue11/05/23 at 0200, Routine [facility] amoxicillin -clavulanat e (AUGMENTIN) 875-125 mg per tablet 1 tablet 11-04 07:00: 00 11-04 06:31 :00 No 1{tbl} 1 tablet, Oral, ONCE NOW, 1 dose, On Tue11/05/23 at 0200, Routine, Reason for Anti-Infec tive: Documented Infection, Documented Infection Site: Skin / Soft Tissue, Duration of Therapy: Once (ED) [facility] ondansetron (ZOFRAN (PF)) injection 4 mg 11-04 06:30: 00 11-04 05:33 :00 No 4mg 4 mg, Slow IV Push, ONCE, 1 dose, On Tue11/05/23 at 0130[facility] metoclopram mello HCl (REGLAN) injection 10 mg 11-04 06:15: 00 11-04 06:31 :00 No 10mg 10 mg, Slow IV Push, ONCE, 1 dose, On Tue11/05/23 at 0115, [facility] morpHINE (4 mg/mL) injection 4 mg 11-04 05:30: 00 11-04 04:44 :00 No 4mg 4 mg, Slow IV Push, ONCE, 1 dose, On Tue11/05/23 at 0030, STAT [facility] iopamidol (ISOVUE 370-500 mL) injection 85 mL 11-04 04:45: 00 11-04 04:45 :00 No [id number] 85mL 85 mL, Intravenou s, ONCE, 1 dose, On Tue11/04/23 at 2345, Routine [facility] ondansetron (ZOFRAN (PF)) injection 4 mg 11-04 03:00: 00 11-04 03:02 :00 No 4mg 4 mg, Slow IV Push, ONCE, 1 dose, On 7/12/24 at 2200, CHE [facility] morpHINE (4 mg/mL) injection 4 mg 11-04 03:00: 00 11-04 03:03 :00 No 4mg 4 mg, Slow IV Push, ONCE, 1 dose, On Tue11/04/23 at 2200, STAT [facility] amoxicillin -clavulanat e 875-125 mg per tablet 11-04 00:00: 00 Yes [id number] 1{tbl} Take 1 tablet by mouth every 12 (twelve) hours. [facility] traMADoL (ULTRAM) 50 mg tablet 11-04 00:00: 00 Yes [id number] 50mg Take 1 tablet by mouth every 6 (six) hours as needed for Pain (scale 7-10). Indication s: acute pain [facility] ondansetron (ZOFRAN) 4 mg tablet 11-04 00:00: 00 Yes [id number] 4mg Take 1 tablet by mouth every 8 (eight) hours as needed for Nausea and Vomiting (N/V). [facility] perflutren protein-A microsphr (OPTISON) injection 3 mL 08-29 17:45: 00 08-29 17:43 :00 No [id number] 3mL 3 mL, IV Push, ONCE, 1 dose, On Tue08/30/23 at 1245, Routine [facility] tc 99m-tetrofo smin (MYOVIEW) injection 41.8 millicurie 08-29 14:00: 00 08-29 13:55 :00 No [id number] 41.8mCi 41.8 millicurie , Intravenou s, ONCE, 1 dose, On Tue08/30/23 at 0900, Routine [facility] regadenoson (LEXISCAN) injection 0.4 mg 08-29 14:00: 00 08-29 14:04 :00 No [id number] .4mg 0.4 mg, IV Push, ONCE, 1 dose, On Tue08/30/23 at 0900, Routine, 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 Restricted medication : DAVON GARCIA [facility] [facility] 99m-tetrofo smin (MYOVIEW) injection 15.8 millicurie 08-29 13:00: 00 08-29 12:56 :00 No [id number] 15.8mCi 15.8 millicurie , Intravenou s, ONCE, 1 dose, On Tue08/30/23 at 0800, Routine [facility] NaCl 0.9% (NS) injection 5 mL 2022-04 15:30: 00 03-10 18:22 :00 No 5mL 5 mL, Slow IV Push, ONCE, 1 dose, On Faustina 03/10/23 at 0930, Routine [facility] heparin 1,000 unit/mL (10 mL) - dialysis catheter care 2022-04 15:16: 28 Yes 2000U PRN - SEE INSTRUCTIO NS, Starting on Faustina 03/10/23 at 0916, Until Discontinu ed, Routine
For Priming of Ports:&nbs p; &n bsp; After initial saline flush, prime each port with heparin according to the priming volume listed on each catheter port for catheter lock.
[facility] Cholecalcif jeannie, Vitamin D3, 50 mcg (2,000 unit) capsule 2022-04 15:01: 52 Yes Take by mouth. [facility] cyanocobala min, vitamin B-12, 2,000 mcg Tab 2022-04 15:01: 52 Yes Take by mouth. [facility] DULoxetine 60 mg capsule 2022-04 15:01: 52 Yes 60mg Take 1 capsule by mouth in the morning. [facility] empaglifloz in 10 mg 2022-04 15:01: 52 Yes 10mg Take 1 tablet by mouth in the morning. [facility] furosemide (LASIX) 40 mg tablet 2022-04 15:01: 52 Yes 40mg Take 1 tablet by mouth in the morning. [facility] losartan 25 mg tablet 2022-04 15:01: 52 Yes 25mg Take 1 tablet by mouth in the morning. [facility] mirtazapine 15 mg tablet 2022-04 15:01: 52 Yes 15mg Take 1 tablet by mouth at bedtime. [facility] Pantoprazol e 40 mg delayed-rel ease suspension 2022-04 15:01: 52 Yes 40mg Take 40 mg by mouth in the morning. [facility] rosuvastati n 40 mg tablet 2022-04 15:01: 52 Yes 40mg Take 1 tablet by mouth at bedtime. [facility] spironolact one (ALDACTONE) 25 mg tablet 2022-04 15:01: 52 Yes 25mg Take 1 tablet by mouth in the morning. [facility] thiamine 100 mg tablet 2022-04 15:01: 52 Yes 100mg Take 1 tablet by mouth in the morning. [facility] metoprolol succinate XL 50 mg 24 hr tablet 2022-04 13:24: 06 03-10 00:00 :00 No 50mg Take 1 tablet by mouth in the morning. [facility] folic acid 0.8 mg Cap 2022-04 11:33: 32 03-10 00:00 :00 No Take by mouth. [facility] methocarbam oL 750 mg tablet 2022-04 00:00: 00 Yes [id number] 750mg Take 1 tablet by mouth 2 (two) times daily as needed for Pain (scale 1-3). [facility] propranoloL 20 mg tablet 2022-04 00:00: 00 Yes [id number] 20mg Take 1 tablet by mouth in the morning and 1 tablet in the evening. [facility] traZODone 50 mg tablet 2022-04 00:00: 00 Yes [id number] 50mg Take 1 tablet by mouth at bedtime. [facility] ipratropium -albuteroL 0.5 mg-3 mg(2.5 mg base)/3 mL nebulizer solution 2022-04 00:00: 00 Yes [id number] 3mL Inhale 3 mL 4 (four) times daily. [facility] lactulose 10 gram/15 mL solution 2022-04 00:00: 00 Yes [id number] 30mL Take 30 mL by mouth in the morning and 30 mL in the evening. [facility] nystatin 100,000 unit/gram ointment 2022-04 00:00: 00 Yes [id number] Apply to area(s) 2 (two) times daily. [facility] rifAXIMin 550 mg tablet 2022-04 00:00: 00 Yes [id number] 550mg Take 1 tablet by mouth in the morning and 1 tablet in the evening. [facility] foLIC acid 1 mg tablet 2022-04 00:00: 00 Yes [id number] 1mg Take 1 tablet by mouth in the morning. [facility] pregabalin (LYRICA) capsule 25 mg 2022-04 15:00: 00 Yes 25mg 25 mg, Oral, DAILY, First dose (after last modificati on) on Tue03/09/23 at 0900, Until Discontinu ed, Routine [facility] acetaminoph en (TYLENOL) tablet 650 mg 2022-04 14:35: 40 Yes 650mg 650 mg, Oral, Q6HPRN, Starting on Tue03/09/23 at 0835, Until Discontinu ed, Routine, Pain (scale 1-3) [facility] mirtazapine (REMERON) tablet 15 mg 2022-04 03:00: 00 Yes 15mg 15 mg, Oral, QHS, First dose on Tue03/08/23 at 2100, Until Discontinu ed, Routine [facility] hydrOXYzine (ATARAX) tablet 10 mg 2022-04 14:46: 24 Yes 10mg 10 mg, Oral, Q6HPRN, Starting on Tue03/08/23 at 0846, Until Discontinu ed, Routine, Itching, Anxiety, insomnia [facility] NaCl 0.9% (NS) injection 5 mL 2022-04 13:00: 00 03-08 13:00 :00 No 5mL 5 mL, Slow IV Push, ONCE, 1 dose, On Tue03/08/23 at 0700, Routine [facility] heparin 1,000 unit/mL (10 mL) - dialysis [...] [facility] methocarbam oL (ROBAXIN) tablet 750 mg 2022-04 03:36: 54 Yes 750mg 750 mg, Oral, BIDPRN, Starting on Tue03/07/23 at 2136, Until Discontinu ed, Routine, Muscle Spasms [facility] HYDROcodone -acetaminop hen (NORCO 5) 5-325 mg tablet 1 tablet 2022-04 03:32: 15 Yes 1{tbl} 1 tablet, Oral, Q6HPRN, Starting on Tue03/07/23 at 2132, Until Discontinu ed, Routine, Pain (scale 7-10) [facility] traZODone (DESYREL) tablet 50 mg 2022-04 03:00: 00 Yes 50mg 50 mg, Oral, QHS, First dose on Tue03/07/23 at 2100, Until Discontinu ed, Routine [facility] heparin (porcine) injection 5,000 Units 2022-04 02:00: 00 Yes 5000U 5,000 Units, Subcutaneo us, Q12H, First dose on Tue03/07/23 at 2000, Until Discontinu ed, Routine [facility] ipratropium -albuteroL (DUONEB) 0.5 mg-3 mg(2.5 mg base)/3 mL nebulizer solution 3 mL 2022-04 15:00: 00 Yes 3mL 3 mL, Inhalation , QID, First dose (after last modificati on) on Tue03/07/23 at 0900, Until Discontinu ed, Routine [facility] foLIC acid (FOLATE) tablet 1 mg 2022-04 15:00: 00 Yes 1mg 1 mg, Oral, DAILY, First dose on 03/06/23 at 0900, Until Discontinu ed, Routine [facility] pantoprazol e (PROTONIX) EC tablet 40 mg 2022-04 15:00: 00 Yes 40mg 40 mg, Oral, DAILY, First dose on 03/06/23 at 0900, Until Discontinu ed, Routine [facility] thiamine (VITAMIN B1) tablet 100 mg 2022-04 15:00: 00 Yes 100mg 100 mg, Oral, DAILY, First dose on 03/06/23 at 0900, Until Discontinu ed, Routine [facility] lactulose (CEPHULAC) solution 30 mL 2022-04 14:00: 00 Yes 30mL 30 mL, Oral, BID, First dose (after last modificati on) on 03/06/23 at 0800, Until Discontinu ed, Routine [facility] rosuvastati n (CRESTOR) tablet 10 mg 2022-04 03:00: 00 Yes 10mg 10 mg, Oral, QHS, First dose (after last modificati on) on 03/05/23 at 2100, Until Discontinu ed, Routine [facility] melatonin (MELATIN) tablet 6 mg 2022-04 03:00: 00 03-08 16:57 :30 No 6mg 6 mg, Oral, QHS, First dose (after last modificati on) on 03/05/23 at 2100, Until Discontinu ed, Routine [facility] rifAXIMin (XIFAXAN) tablet 550 mg 2022-04 02:00: 00 Yes 550mg 550 mg, Oral, BID, First dose on 03/05/23 at 2000, Until Discontinu ed, Routine
Reason for Anti-Infec tive: Empiric Non-Surgic al Prophylaxi s
Durat ion of therapy: 5 days
Sp ecific indication : HE [facility] propranoloL (INDERAL) tablet 20 mg 2022-04 02:00: 00 Yes 20mg 20 mg, Oral, BID, First dose on 03/05/23 at 2000, Until Discontinu ed, Routine [facility] lactulose (CEPHULAC) solution 30 mL 2022-04 02:00: 00 03-06 13:29 :57 No 30mL 30 mL, Enteral, BID, First dose (after last modificati on) on 03/05/23 at 2000, Until Discontinu ed, Routine [facility] heparin 1,000 unit/mL (10 mL) - dialysis catheter care 2022-04 20:02: 57 03-06 13:29 :57 No 2000U PRN - SEE INSTRUCTIO NS, Starting on Tue03/05/23 at 1402, Until 03/06/23 at 0729, Routine
For Priming of Ports:&nbs p; &n bsp; After initial saline flush, prime each port with heparin according to the priming volume listed on each catheter port for catheter lock.
[facility] melatonin (MELATIN) tablet 6 mg 2022-04 03:00: 00 03-05 15:10 :20 No 6mg 6 mg, Oral, QHS, First dose (after last modificati on) on Tue03/04/23 at 2100, Until Discontinu ed, Routine [facility] acetaminoph en (TYLENOL) 160 mg/5 mL oral liquid 650 mg 2022-04 21:12: 26 03-09 14:36 :27 No 650mg 650 mg, Oral, Q6HPRN, Starting on Tue03/04/23 at 1512, Until Tue03/09/23 at 0836, Routine, Pain (scale 4-6), Temp > 38.5 C [facility] iopamidol (ISOVUE 370-500 mL) injection 80 mL 2022-04 19:02: 00 03-04 19:02 :00 No [id number] 80mL 80 mL, Intravenou s, ONCE, 1 dose, On Tue03/04/23 at 1315, Routine [facility] KCL (KLOR-CON M20) tablet 20 mEq 2022-04 17:45: 00 03-04 18:11 :00 No 20meq 20 mEq, Oral, ONCE, 1 dose, On Tue03/04/23 at 1145, Routine [facility] folic acid (FOLATE) 1 mg/mL oral solution 1 mg 2022-04 15:00: 00 03-05 15:10 :20 No 1mg 1 mg, Enteral, DAILY, First dose on Tue03/04/23 at 0900, Until Discontinu ed, Routine [facility] hydrOXYzine (ATARAX) tablet 10 mg 2022-04 13:10: 48 03-08 14:46 :34 No 10mg 10 mg, Oral, Q6HPRN, Starting on Tue03/04/23 at 0710, Until Tue03/08/23 at 0846, Routine, Itching, insomnia [facility] rosuvastati n (CRESTOR) tablet 10 mg 2022-04 03:00: 00 03-05 15:10 :20 No 10mg 10 mg, Oral, QHS, First dose (after last modificati on) on Tue03/03/23 at 2100, Until Discontinu ed, Routine [facility] melatonin (MELATIN) tablet 3 mg 2022-04 03:00: 00 03-04 13:11 :40 No 3mg 3 mg, Oral, QHS, First dose (after last modificati on) on Tue03/03/23 at 2100, Until Discontinu ed, Routine [facility] propranoloL (INDERAL) 20 mg/5 mL (4 mg/mL) solution 10 mg 2022-04 02:00: 00 03-05 15:10 :20 No 10mg 10 mg, Enteral, BID, First dose (after last modificati on) on Tue03/03/23 at 2000, Until Discontinu ed, Routine [facility] propranoloL (INDERAL) 20 mg/5 mL (4 mg/mL) solution 10 mg 2022-04 15:45: 00 03-03 21:14 :53 No 10mg 10 mg, Oral, BID, First dose on Faustina 03/03/23 at 0945, Until Discontinu ed, Routine [facility] NaCl 0.9% (NS) injection 5 mL 2022-04 15:30: 00 03-03 16:28 :00 No 5mL 5 mL, Slow IV Push, ONCE, 1 dose, On Faustina 03/03/23 at 0930, Routine [facility] heparin 1,000 unit/mL (10 mL) - dialysis catheter care 2022-04 15:27: 18 03-06 13:29 :57 No 2000U PRN - SEE INSTRUCTIO NS, Starting on Faustina 03/03/23 at 0927, Until [place] 03/06/23 at 0729, Routine
For Priming of Ports:&nbs p; &n bsp; After initial saline flush, prime each port with heparin according to the priming volume listed on each catheter port for catheter lock.
[facility] nystatin (MYCOSTATIN ) ointment 2022-04 15:00: 00 Yes Topical, BID, First dose on Faustina 03/03/23 at 0900, Until Discontinu ed, Routine [facility] rifAXIMin (XIFAXAN) 20 mg/mL oral suspension 550 mg 2022-04 02:00: 00 03-05 15:10 :20 No 550mg 550 mg, Enteral, BID, First dose (after last modificati on) on Tue03/02/23 at 1999, Until Discontinu ed, Routine
Reason for Anti-Infec tive: Empiric Non-Surgic al Prophylaxi s
Durat ion of therapy: 5 days [facility] lactulose (CEPHULAC) solution 30 mL 2022-04 02:00: 00 03-05 15:10 :20 No 30mL 30 mL, Enteral, QID, First dose (after last modificati on) on Tue03/02/23 at 1999, Until Discontinu ed, Routine [facility] NaCl 0.9% (NS) injection 5 mL 2022-04 22:00: 00 03-02 23:25 :00 No 5mL 5 mL, Slow IV Push, ONCE, 1 dose, On Tue03/02/23 at 1600, Routine [facility] heparin 1,000 unit/mL (10 mL) [...] on each catheter port for catheter lock.
[facility] heparin 1,000 unit/mL injection 2022-04 21:00: 18 03-02 21:00 :18 No PRN, Starting on Tue03/02/23 at 1500, Until Tue03/02/23 at 1500, Routine, Intra-op [facility] Cholecalcif jeannie, Vitamin D3, 50 mcg (2,000 unit) capsule 2022-04 20:48: 54 Yes Take by mouth. [facility] cyanocobala min, vitamin B-12, 2,000 mcg Tab 2022-04 20:48: 54 Yes Take by mouth. [facility] DULoxetine 60 mg capsule 2022-04 20:48: 54 Yes 60mg Take 1 capsule by mouth in the morning. [facility] empaglifloz in 10 mg 2022-04 20:48: 54 Yes 10mg Take 1 tablet by mouth in the morning. [facility] folic acid 0.8 mg Cap 2022-04 20:48: 54 Yes Take by mouth. [facility] furosemide (LASIX) 40 mg tablet 2022-04 20:48: 54 Yes 40mg Take 1 tablet by mouth in the morning. [facility] losartan 25 mg tablet 2022-04 20:48: 54 Yes 25mg Take 1 tablet by mouth in the morning. [facility] metoprolol succinate XL 50 mg 24 hr tablet 2022-04 20:48: 54 Yes 50mg Take 1 tablet by mouth in the morning. [facility] mirtazapine 15 mg tablet 2022-04 20:48: 54 Yes 15mg Take 1 tablet by mouth at bedtime. [facility] Pantoprazol e 40 mg delayed-rel ease suspension 2022-04 20:48: 54 Yes 40mg Take 40 mg by mouth in the morning. [facility] rosuvastati n 40 mg tablet 2022-04 20:48: 54 Yes 40mg Take 1 tablet by mouth at bedtime. [facility] spironolact one (ALDACTONE) 25 mg tablet 2022-04 20:48: 54 Yes 25mg Take 1 tablet by mouth in the morning. [facility] thiamine 100 mg tablet 2022-04 20:48: 54 Yes 100mg Take 1 tablet by mouth in the morning. [facility] lidocaine 1% (PF) (XYLOCAINE) injection 2022-04 20:32: 55 03-02 20:32 :55 No PRN, Starting on Tue03/02/23 at 1432, Until Tue03/02/23 at 1432, Routine, Intra-op [facility] FENTanyl PF (SUBLIMAZE (PF)) injection 2022-04 20:32: 42 03-02 20:47 :05 No Slow IV Push, PRN, Starting on Tue03/02/23 at 1432, Until Tue03/02/23 at 1447, Routine, Intra-op [facility] midazolam (VERSED) injection 2022-04 20:32: 23 03-02 20:32 :23 No IV Push, PRN, Starting on Tue03/02/23 at 1432, Until Tue03/02/23 at 1432, Routine, Intra-op [facility] midodrine (PROAMATINE ) tablet 10 mg 2022-04 12:00: 00 03-03 15:39 :09 No 10mg 10 mg, Enteral, Q8H, First dose (after last modificati on) on Tue03/02/23 at 0600, Until Discontinu ed, Routine [facility] midodrine (PROAMATINE ) tablet 15 mg 2022-04 04:00: 00 03-02 09:53 :15 No 15mg 15 mg, Enteral, Q8H, First dose (after last modificati on) on Tue03/01/23 at 2200, Until Discontinu ed, Routine [facility] rifAXIMin (XIFAXAN) 20 mg/mL oral suspension 550 mg 2022-04 02:00: 00 03-03 01:56 :04 No 550mg 550 mg, Oral, BID, First dose on Tue03/01/23 at 2000, Until Discontinu ed, Routine
Reason for Anti-Infec tive: Empiric Non-Surgic al Prophylaxi s
Durat ion of therapy: 5 days [facility] NaCl 0.9% (NS) injection 5 mL 2022-04 21:15: 00 03-01 21:50 :00 No 5mL 5 mL, Slow IV Push, ONCE, 1 dose, On Tue03/01/23 at 1515, Routine [facility] heparin 1,000 unit/mL (10 mL) - dialysis catheter care 2022-04 21:00: 05 03-02 21:50 :21 No 2000U PRN - SEE INSTRUCTIO NS, Starting on Tue03/01/23 at 1500, Until Tue03/02/23 at 1550, Routine
For Priming of Ports:&nbs p; &n bsp; After initial saline flush, prime each port with heparin according to the priming volume listed on each catheter port for catheter lock.
[facility] barium sulfate-NO CHARGE- (VARIBAR NECTOR) 40 % (w/v) oral suspension 30 mL 2022-04 19:30: 00 03-01 19:35 :00 No [id number] 30mL 30 mL, Oral, ONCE, 1 dose, On Tue03/01/23 at 1330, Routine [facility] lactulose (CEPHULAC) solution 30 mL 2022-04 18:00: 00 03-03 01:56 :04 No 30mL 30 mL, Oral, QID, First dose (after last modificati on) on Tue03/01/23 at 1200, Until Discontinu ed, Routine [facility] rifAXIMin (XIFAXAN) tablet 550 mg 2022-04 02:00: 00 03-01 16:26 :10 No 550mg 550 mg, Oral, BID, First dose on Tue02/28/23 at 2000, Until Discontinu ed, Routine
Reason for Anti-Infec tive: Empiric Therapy for Suspected Infection< br>Empiric Therapy Site: Other
O ther site: HE
Dura tion of therapy: 5 days [facility] octreotide (SANDOSTATI N) 500 mcg in NaCl 0.9% (NS) 100 mL infusion 2022-04 17:00: 00 03-01 22:37 :31 No 50ug/h 50 mcg/hr (10 mL/hr), IV Infusion, CONTINUOUS , Starting on Tue02/28/23 at 1100 [facility] ceFEPIme (MAXIPIME) 1,000 mg in [...] y
Durat ion of therapy: 5 days [facility] ceFEPIme (MAXIPIME) 2,000 mg in NaCl 0.9% (NS) 100 mL MINI-BAG 2022-04 16:15: 00 02-27 19:48 :00 No 2000mg 2,000 mg, IV Piggyback, ONCE, 1 dose, On 02/27/23 at 1015, Administer over 30 Minutes, 100 mL
Reas on for Anti-Infec tive: Empiric Therapy for Suspected Infection< br>Empiric Therapy Site: Respirator y
Durat ion of therapy: 5 days [facility] sodium phosphate 30 mmol in NaCl 0.9% (NS) 250 mL piggyback 2022-04 14:45: 00 02-27 18:39 :00 No 30mmol 30 mmol, IV Piggyback, ONCE, 1 dose, On 02/27/23 at 0845, Administer over 4 Hours, 250 mL [facility] cefTRIAXone (ROCEPHIN) 1,000 mg in [...] Abdominal< br>Duratio n of therapy: 5 days [facility] acetaminoph en (TYLENOL) tablet 650 mg 2022-04 04:04: 36 03-04 21:12 :18 No 650mg 650 mg, Enteral, Q6HPRN, Starting on 02/26/23 at 2304, Until Tue03/04/23 at 1512, Routine, Temp > 38 C [facility] lanolin alcohol-mo- w.pet-ceres (EUCERIN) cream 2022-04 03:30: 48 Yes Topical, PRN, Starting on 02/26/23 at 2230, Until Discontinu ed, Routine, Dermatitis /Rash, Near genital area [facility] rosuvastati n (CRESTOR) tablet 40 mg 2022-04 02:00: 00 03-03 01:56 :04 No 40mg 40 mg, Oral, QHS, First dose (after last modificati on) on 02/26/23 at 2100, Until Discontinu ed, Routine [facility] artificial tears(hypro mellose) (ISOPTO-TEA RS) 0.5 % ophthalmic drops 1 Drop 2022-04 21:16: 50 Yes 1[drp] 1 Drop, Both Eyes, PRN, Starting on 02/26/23 at 1616, Until Discontinu ed, Routine, Dry eyes [facility] pantoprazol e (PROTONIX) 2 mg/mL oral suspension 40 mg 2022-04 14:00: 00 03-05 15:10 :20 No 40mg 40 mg, Enteral, DAILY, First dose on 02/26/23 at 0900, Until Discontinu ed, Routine [facility] lactulose (CEPHULAC) solution 30 mL 2022-04 13:00: 00 03-01 14:09 :36 No 30mL 30 mL, Enteral, QID, First dose (after last modificati on) on 02/26/23 at 0800, Until Discontinu ed, Routine [facility] dexMEDEtomi dine 400 mcg in 0.9 % [...] maximum allowed dose, contact prescriber .
[facility] NaCl 0.9% (NS) IV infusion 1,000 mL 2022-04 23:15: 00 02-27 17:23 :24 No 1000mL at 250 mL/hr, CRRT Circuit, CONTINUOUS , Starting on Tue02/25/23 at 1815, Until 02/27/23 at 1123, Routine [facility] midodrine (PROAMATINE ) tablet 20 mg 2022-04 11:00: 00 03-02 02:32 :00 No 20mg 20 mg, Enteral, Q8H, First dose (after last modificati on) on Tue02/25/23 at 0600, Until Discontinu ed, Routine [facility] NORepinephr ine 4 mg in 0.9% NaCl [...] at maximum allowed dose, contact prescriber .
[facility] albumin (PLASBUMIN) 25 % injection 87.5 g 2022-04 04:45: 00 02-26 01:00 :00 No 1g/kg 87.5 g (1 g/kg ?87.5 kg), IV Infusion, ONCE, 1 dose, On Faustina 02/24/23 at 2345, 400 mL
Cara cation: HEPATORENA L SYNDROME (DIAGNOSIS )
Comme nts: Albumin 1 g/kg/day for 2 days (up to a maximum of 100 g/day) [facility] CRRT fluid dialysate (PRISMASATE 4K) K 4.0-Ca 2.5, Mg 1.5, HCO3 32, NA 140, CL 113, LACTATE 3, DEX 110, Osm 300 2022-04 03:15: 00 02-27 17:23 :24 No 2800mL/ h 2,800 mL/hr, [employer] Circuit, CONTINUOUS , Starting on Tue02/24/23 at 2215, Until Tue02/27/23 at 1123, Routine [facility] midodrine (PROAMATINE ) tablet 10 mg 2022-04 03:00: 00 02-25 04:29 :59 No 10mg 10 mg, Enteral, Q8H, First dose (after last modificati on) on Tue02/24/23 at 2200, Until Discontinu ed, Routine [facility] CRRT fluid dialysate (PRISMASATE 4K) K 4.0-Ca 2.5, Mg 1.5, HCO3 32, NA 140, CL 113, LACTATE 3, DEX 110, Osm 300 2022-04 01:00: 00 02-25 03:00 :40 No 4000mL/ h 4,000 mL/hr, CRRT Circuit, CONTINUOUS , Starting on Tue02/24/23 at 2000, Until Tue02/24/23 at 2200, Routine [facility] NaCl 0.9% (NS) IV infusion 1,000 mL 2022-04 01:00: 00 02-25 23:05 :02 No 1000mL at 200 mL/hr, CRRT Circuit, CONTINUOUS , Starting on Tue02/24/23 at 2000, Until Tue02/25/23 at 1805, Routine [facility] thiamine (VITAMIN B1) tablet 100 mg 2022-04 14:00: 00 03-05 15:10 :20 No 100mg 100 mg, Enteral, DAILY, First dose (after last modificati on) on Tue02/24/23 at 0900, Until Discontinu ed, Routine [facility] foLIC acid (FOLATE) tablet 1 mg 2022-04 14:00: 00 03-03 21:14 :13 No 1mg 1 mg, Enteral, DAILY, First dose (after last modificati on) on Tue02/24/23 at 0900, Until Discontinu ed [facility] midodrine (PROAMATINE ) tablet 20 mg 2022-04 19:54: 00 02-24 22:29 :47 No 20mg 20 mg, Enteral, Q8H, First dose (after last modificati on) on Tue02/23/23 at 1500, Until Discontinu ed, Routine [facility] albumin (PLASBUMIN) 25 % injection 87.5 g [...] [facility] lactulose (CEPHULAC) solution 30 mL 2022-04 19:00: 00 02-26 01:25 :38 No 30mL 30 mL, Enteral, TID, First dose (after last modificati on) on Tue02/23/23 at 1400, Until Discontinu ed, Routine [facility] midodrine (PROAMATINE ) tablet 5 mg 2022-04 19:00: 00 02-23 19:51 :03 No 5mg 5 mg, Enteral, TID, First dose (after last modificati on) on Tue02/23/23 at 1400, Until Discontinu ed, Routine [facility] midodrine (PROAMATINE ) tablet 5 mg 2022-04 13:00: 00 02-23 17:39 :19 No 5mg 5 mg, Oral, TID, First dose on Tue02/23/23 at 0800, Until Discontinu ed, Routine [facility] NaCl 0.9% (NS) injection 5 mL 2022-04 13:00: 00 02-23 14:02 :00 No 5mL 5 mL, Slow IV Push, ONCE, 1 dose, On Tue02/23/23 at 0800, Routine [facility] cefTRIAXone (ROCEPHIN) 1,000 mg in [...] Abdominal< br>Duratio n of therapy: 5 days [facility] octreotide (SANDOSTATI N) injection 100 mcg 2022-04 19:00: 00 02-24 23:03 :09 No 100ug 100 mcg, Subcutaneo us, TID, First dose on Tue02/22/23 at 1400, Until Discontinu ed, Routine
Indicatio n: Hepatorena l Syndrome [facility] NORepinephr ine 4 mg in [...] intravenou s vasopresso r at a time.
[facility] QUEtiapine (SEROQUEL) tablet 25 mg 2022-04 01:00: 00 02-24 19:38 :58 No 25mg 25 mg, Oral, BID, First dose on Tue02/21/23 at 2000, Until Discontinu ed, Routine [facility] dexMEDEtomi dine 200 mcg in 0.9 % [...] at maximum allowed dose, contact prescriber .
[facility] propofoL IV infusion 2022-04 22:25: 53 02-28 [...] vials should be discarded after 12 hours.
[facility] etomidate (AMIDATE) injection 10 mg 2022-04 22:00: 00 02-21 21:16 :00 No 10mg 10 mg, Slow IV Push, ONCE, 1 dose, On Tue02/21/23 at 1700, Routine Univers [facility] succinylcho line (QUELICIN) injection 120 mg 2022-04 22:00: 00 02-21 21:16 :00 No 120mg 120 mg, IV Push, ONCE, 1 dose, On Tue02/21/23 at 1700, Routine [facility] heparin 1,000 unit/mL injection 2,800 Units 2022-04 21:46: 24 03-03 15:40 :07 No [id number] 2,800 Units, Slow IV Push, PRN - SEE INSTRUCTIO NS, Starting on Tue02/21/23 at 1646, Until Faustina 03/03/23 at 0940, Routine, for post HD hep lock [facility] etomidate (AMIDATE) injection 2022-04 21:07: 00 02-22 00:01 :33 No Slow IV Push, ONCE INTRA PROCEDURE, Starting on Tue02/21/23 at 1607, Until Discontinu ed, Routine, Intra-op [facility] succinylcho line (QUELICIN) injection 2022-04 21:07: 00 02-22 00:01 :33 No IV Push, ONCE INTRA PROCEDURE, Starting on Tue02/21/23 at 1607, Until Discontinu ed, Routine, [facility] lactulose (CE[facility] solution 30 mL 2022-04 19:00: 00 02-23 17:39 :19 No 30mL 30 mL, Enteral, TID, First dose on Tue02/21/23 at 1400, Until Discontinu ed, Routine [facility] flumazeniL (ROMAZICON) injection 0.3 mg 2022-04 18:15: 00 02-21 17:27 :00 No .3mg 0.3 mg, IV Push, ONCE, 1 dose, On Tue02/21/23 at 1315, CHE
Fa culty member approving Restricted medication : ABRAHAMTONY Méndez [facility] flumazeniL (ROMAZICON) injection 0.2 mg 2022-04 18:00: 00 02-21 17:14 :00 No .2mg 0.2 mg, IV Push, ONCE, 1 dose, On Tue02/21/23 at 1300, STAT
Fa culty member approving Restricted medication : ABRAHAMTONY Méndez [facility] LORazepam (ATIVAN) injection 2 mg 2022-04 16:00: 00 02-21 16:39 :00 No 2mg 2 mg, Slow IV Push, ONCE, 1 dose, On Tue02/21/23 at 1100, Routine [facility] sulfur hexafluorid e microsphr (LUMASON) injection 5 mL 2022-04 15:30: 00 02-21 15:30 :00 No [id number] 5mL 5 mL, Intravenou s, ONCE, 1 dose, On Tue02/21/23 at 1030, Routine
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 Restricted medication : MARIO GARZA [facility] hydrOXYzine (ATARAX) tablet 10 mg 2022-04 09:53: 27 03-03 01:56 :04 No 10mg 10 mg, Oral, Q6HPRN, Starting on Tue02/21/23 at 0453, Until Tue03/02/23 at 1956, Routine, Itching [facility] ondansetron (ZOFRAN (PF)) injection 4 mg 2022-04 03:03: 54 03-06 13:29 :57 No 4mg 4 mg, Slow IV Push, Q6HPRN, Nausea and Vomiting (N/V), Starting on Tue02/20/23 at 2203
Do ses of ondansetro n 16 mg and above need to be administer ed via IV piggyback. For Dose >=24mg ECG monitoring is advisable.
[facility] lactulose (CEPHULAC) solution 45 mL 2022-04 01:00: 00 02-21 05:12 :01 No 45mL 45 mL, Oral, TID, First dose (after last modificati on) on Tue02/20/23 at 2000, Until Discontinu ed, Routine [facility] albumin (PLASBUMIN) 25 % injection 93.5 g 2022-04 14:15: 00 02-21 01:00 :00 No 1g/kg 93.5 g (1 g/kg ?93.5 kg), IV Infusion, ONCE, 1 dose, On Tue02/20/23 at 0915, 400 mL
Cara cation: HEPATORENA L SYNDROME (DIAGNOSIS )
Comme nts: Albumin 1 g/kg/day for 2 days (up to a maximum of 100 g/day) [facility] it[facility] D5W IV infusion 1,000 mL 2022-04 13:30: [...] and patient's Na is 121)
[facility] lactulose (CEPHULAC) solution 15 mL 2022-04 13:00: 00 02-20 18:05 :41 No 15mL 15 mL, Oral, TID, First dose (after last modificati on) on Tue02/20/23 at 0800, Until Discontinu ed, Routine [facility] melatonin (MELATIN) tablet 3 mg 2022-04 05:30: 00 02-26 02:42 :34 No 3mg 3 mg, Oral, QHS, First dose on Tue02/20/23 at 0030, Until Discontinu ed, Routine [facility] rosuvastati n (CRESTOR) tablet 40 mg 2022-04 02:00: 00 02-26 06:24 :54 No 40mg 40 mg, Oral, QHS, First dose on 02/19/23 at 2100, Until Discontinu ed, Routine [facility] D5W IV infusion 1,000 mL 2022-04 [...] 140 mml/L and patient's Na is 121)
[facility] CRRT fluid dialysate (PRISMASATE 4K) K 4.0-Ca 2.5, Mg 1.5, HCO3 32, NA 140, CL 113, LACTATE 3, DEX 110, Osm 300 2022-04 21:30: 00 02-24 17:25 :11 No 2400mL/ h 2,400 mL/hr, CRRT Circuit, CONTINUOUS , Starting on 02/19/23 at 1630, Until Faustina 02/24/23 at 1225, Routine [facility] NORepinephr ine 4 mg in [...] vasopresso r at a time.
[facility] albumin (PLASBUMIN) 25 % injection 93.5 g [...] [facility] furosemide (LASIX) injection 80 mg 2022-04 15:00: 00 02-19 19:42 :00 No 80mg 80 mg, Slow IV Push, ONCE, 1 dose, On 02/19/23 at 1000, Routine [facility] midodrine (PROAMATINE ) tablet 5 mg 2022-04 14:15: 00 02-19 18:23 :31 No 5mg 5 mg, Oral, Q8H, First dose on 02/19/23 at 0915, Until Discontinu ed, Routine [facility] pantoprazol e (PROTONIX) EC tablet 40 mg 2022-04 14:00: 00 02-26 02:42 :34 No 40mg 40 mg, Oral, DAILY, First dose on 02/19/23 at 0900, Until Discontinu ed, Routine [facility] foLIC acid (FOLATE) tablet 1 mg 2022-04 14:00: 00 02-23 17:39 :19 No 1mg 1 mg, Oral, DAILY, First dose on 02/19/23 at 0900, Until Discontinu ed [facility] thiamine (VITAMIN B1) tablet 100 mg 2022-04 14:00: 00 02-23 17:39 :19 No 100mg 100 mg, Oral, DAILY, First dose on 02/19/23 at 0900, Until Discontinu ed, Routine [facility] magnesium sulfate in water 2 gram/50 mL (4 %) infusion 2 g 2022-04 13:30: 00 02-19 15:20 :00 No 2g 2 g, IV Piggyback, Administer over 60 Minutes, ONCE, 1 dose, On 02/19/23 at 0830, Routine [facility] heparin (porcine) injection 5,000 Units 2022-04 13:00: 00 02-23 00:21 :58 No 5000U 5,000 Units, Subcutaneo us, Q12H, First dose on 02/19/23 at 0800, Until Discontinu ed, Routine [facility] lactulose (CEPHULAC) solution 15 mL 2022-04 13:00: 00 02-20 06:44 :06 No 15mL 15 mL, Oral, BID, First dose on 02/19/23 at 0800, Until Discontinu ed, Routine [facility] ceFEPIme (MAXIPIME) 1,000 mg in NaCl 0.9% [...] n of therapy: 72 hours [facility] furosemide (LASIX) injection 40 mg 2022-04 11:00: 00 02-19 10:23 :00 No 40mg 40 mg, Slow IV Push, ONCE, 1 dose, On 02/19/23 at 0600, Routine [facility] folic acid 0.8 mg Cap 2022-04 01:32: 29 Yes Take by mouth. [facility] rosuvastati n 40 mg tablet 2022-04 01:32: 29 Yes 40mg Take 1 tablet by mouth at bedtime. [facility] thiamine 100 mg tablet 2022-04 01:32: 29 Yes 100mg Take 1 tablet by mouth in the morning. [facility] Cholecalcif jeannie, Vitamin D3, 50 mcg (2,000 unit) capsule 2022-04 01:31: 38 Yes Take by mouth. [facility] cyanocobala min, vitamin B-12, 2,000 mcg Tab 2022-04 01:31: 38 Yes Take by mouth. [facility] DULoxetine 60 mg capsule 2022-04 01:31: 38 Yes 60mg Take 1 capsule by mouth in the morning. [facility] empaglifloz in 10 mg 2022-04 01:31: 38 Yes 10mg Take 1 tablet by mouth in the morning. [facility] furosemide (LASIX) 40 mg tablet 2022-04 01:31: 38 Yes 40mg Take 1 tablet by mouth in the morning. [facility] losartan 25 mg tablet 2022-04 01:31: 38 Yes 25mg Take 1 tablet by mouth in the morning. [facility] metoprolol succinate XL 50 mg 24 hr tablet 2022-04 01:31: 38 Yes 50mg Take 1 tablet by mouth in the morning. [facility] mirtazapine 15 mg tablet 2022-04 01:31: 38 Yes 15mg Take 1 tablet by mouth at bedtime. [facility] Pantoprazol e 40 mg delayed-rel ease suspension 2022-04 01:31: 38 Yes 40mg Take 40 mg by mouth in the morning. [facility] spironolact one (ALDACTONE) 25 mg tablet 2022-04 01:31: 38 Yes 25mg Take 1 tablet by mouth in the morning. [facility] escitalopra m (Lexapro) 10 MG tablet escitalopra m (Lexapro) 10 MG tablet 10-06 00:00: 00 05-23 00:00 :00 No 10mg 10 mg = 1 tab, PO, Daily, 0 Refill(s) Shama Yu [facility] folic acid (Folvite) 1 MG tablet folic acid (Folvite) 1 MG tablet 10-06 00:00: 00 05-23 00:00 :00 No 1mg QD Take 1 mg by mouth 1 time each day. Shama Salazar atorvastati n (Lipitor) 20 MG tablet atorvastati n (Lipitor) 20 MG tablet 10-06 00:00: 00 05-23 00:00 :00 No 20mg 20 mg = 1 tab, PO, Daily, 0 Refill(s) Shama Salazar propranolol (Inderal) 20 MG tablet propranolol (Inderal) 20 MG tablet 10-06 00:00: 00 05-23 00:00 :00 No 20mg 20 mg = 1 tab, PO, Daily, 0 Refill(s) Shama Yu [facility] losartan (Cozaar) 100 MG tablet losartan (Cozaar) 100 MG tablet 10-06 00:00: 00 05-23 00:00 :00 No 100mg 100 mg = 1 tab, PO, Daily, 0 Refill(s) Shama Yu [facility] amLODIPine (Norvasc) 10 MG tablet amLODIPine (Norvasc) 10 MG tablet 10-06 00:00: 00 05-23 00:00 :00 No 10mg 10 mg = 1 tab, PO, Daily, 0 Refill(s) Shama Yu [facility] methocarbam ol (Robaxin) 750 MG tablet methocarbam ol (Robaxin) 750 MG tablet 10-06 00:00: 00 05-23 00:00 :00 No 750mg Q.5D Take 750 mg by mouth in the morning and 750 mg in the evening. Shama Salazar spironolact one (Aldactone) 50 MG tablet spironolact one (Aldactone) 50 MG tablet 10-06 00:00: 00 05-23 00:00 :00 No 50mg 50 mg = 1 tab, PO, Daily, 0 Refill(s) Colleenelsa bruno Hampton [facility] traZODone (Desyrel) 50 MG tablet traZODone (Desyrel) 50 MG tablet 10-06 00:00: 00 05-23 00:00 :00 No 50mg Take 50 mg by mouth at bedtime. Shama Yu [facility] topiramate 50 MG tablet topiramate 50 MG tablet 10-06 00:00: 00 05-23 00:00 :00 No 50mg 50 mg = 1 tab, PO, Daily, 0 Refill(s) Colleenelsa carr [facility] pantoprazol e (ProtoNix) 40 MG EC tablet pantoprazol e (ProtoNix) 40 MG EC tablet 10-06 00:00: 00 05-23 00:00 :00 No 40mg Take 40 mg by mouth in the morning. Take before meals. Do not crush, chew, or split. Colleenelsa [facility] Vital Signs Vital Name Observation Time Observation Value Comments S ource Heart rate 2024-05-31 11:36:05 87 [facility] 2024-05-31 11:36:05 17 /min [facility] Oxygen saturation in Arterial blood by Pulse oximetry 2024-05-31 11:36:05 98 /min [facility] Body temperature 2024-05-31 11:35:58 36.83 [facility] Systolic blood pressure 2024-05-31 11:35:44 135 mm[Hg] [facility] Diastolic blood pressure 2024-05-31 11:35:44 85 mm[Hg] [facility] Body height 2024-05-24 12:00:00 180 cm Adolfo rial [facility] Heart rate 2024-05-31 11:36:05 87 /min [facility] Respiratory rate 2024-05-31 11:36:05 17 /min [facility] Oxygen saturation in Arterial blood by Pulse oximetry 2024-05-31 11:36:05 98 /min [facility] Body temperature 2024-05-31 11:35:58 36.83 [facility] Systolic blood pressure 2024-05-31 11:35:44 135 mm[Hg] [facility] Diastolic blood pressure 2024-05-31 11:35:44 85 mm[Hg] [facility] Body height 2024-05-24 12:00:00 180 cm Adolfo Yu [facility] Systolic blood pressure 2023-11-05 06:31:00 162 mm[Hg] [facility] Diastolic blood pressure 2023-11-05 06:31:00 98 mm[Hg] [facility] Heart rate 2023-11-05 06:31:00 103 /min [facility] Body temperature 2023-11-05 06:31:00 37.44 Maru [facility] Respiratory rate 2023-11-05 06:31:00 18 /min [facility] Oxygen saturation in Arterial blood by Pulse oximetry 2023-11-05 06:31:00 97 /min [facility] Body height 2023-11-05 01:46:00 175.3 cm Univ [facility] Body weight 2023-11-05 01:46:00 88.451 kg Univ [facility] BMI 2023-11-05 01:46:00 28.80 kg/m2 Univ [facility] Systolic blood pressure 2023-07-13 20:35:00 123 mm[Hg] [facility] Diastolic blood pressure 2023-07-13 20:35:00 72 mm[Hg] [facility] Heart rate 2023-07-13 20:35:00 84 /min [facility] Body temperature 2023-07-13 20:35:00 37.06 Maru [facility] Respiratory rate 2023-07-13 20:35:00 19 /min [facility] Body height 2023-07-13 20:35:00 177.8 cm Univ [facility] Body weight 2023-07-13 20:35:00 93.016 kg Univ [facility] BMI 2023-07-13 20:35:00 29.42 kg/m2 Univ [facility] Oxygen saturation in Arterial blood by Pulse oximetry 2023-07-13 20:35:00 97 /min [facility] Systolic blood pressure 2023-03-10 19:24:00 101 mm[Hg] [facility] Diastolic blood pressure 2023-03-10 19:24:00 61 mm[Hg] [facility] Heart rate 2023-03-10 19:24:00 101 /min [facility] Body temperature 2023-03-10 19:24:00 36.28 Maru [facility] Respiratory rate 2023-03-10 19:24:00 18 /min [facility] Body weight 2023-03-10 19:24:00 77.6 kg [facility] BMI 2023-03-10 19:24:00 25.25 kg/m2 [facility] Oxygen saturation in Arterial blood by Pulse oximetry 2023-03-10 14:31:00 97 /min [facility] Body height 2023-03-01 02:00:00 175.3 cm [facility] Systolic blood pressure 2023-03-04 17:13:00 142 mm[Hg] [facility] Diastolic blood pressure 2023-03-04 17:13:00 75 mm[Hg] [facility] Heart rate 2023-03-04 17:13:00 78 /min [facility] Body temperature 2023-03-04 17:13:00 37.11 Maru [facility] Respiratory rate 2023-03-04 17:13:00 18 /min [facility] Oxygen saturation in Arterial blood by Pulse oximetry 2023-03-04 17:13:00 96 /min [facility] Body weight 2023-03-03 19:30:00 86.5 kg [facility] BMI 2023-03-03 19:30:00 28.15 kg/m2 [facility] Body height 2023-03-01 02:00:00 175.3 cm [facility] Procedures Procedure Date / Time Performed Performing Clinician Source COMPREHENSIVE METABOLIC PANEL 2024-05-31 05:25:00 Elsa Field [facility] COMPLETE BLOOD COUNT W/DIFF AND PLATELET 2024-05-31 05:25:00 Elsa Field [facility] COMPLETE BLOOD COUNT 2024-05-31 05:25:00 Elsa Field [facility] AUTOMATED DIFFERENTIAL 2024-05-31 05:25:00 [facility] 2024-05-30 17:54:00 Basilio Wong [facility] COMPREHENSIVE METABOLIC PANEL 2024-05-30 02:21:00 Elsa Field [facility] COMPLETE BLOOD COUNT W/DIFF AND PLATELET 2024-05-30 02:21:00 Elsa Field [facility] COMPLETE BLOOD COUNT 2024-05-30 02:21:00 Elsa Field [facility] AUTOMATED DIFFERENTIAL 2024-05-30 02:21:00 Elsa Field [facility] FL 1 HOUR INTRAOPERATIVE 2024-05-29 13:12:00 Tony Back [facility] US - ANESTHESIA PERFORMED 2024-05-29 13:00:02 Bonnie Cardoso [facility] ORIF, ANKLE 2024-05-29 09:30:00 Tony Back [facility] COMPREHENSIVE METABOLIC PANEL 2024-05-29 05:27:00 Elsa Field [facility] TYPE AND SCREEN 2024-05-29 05:27:00 Gabriela West [facility] COMPLETE BLOOD COUNT W/DIFF AND PLATELET 2024-05-29 05:27:00 Elsa Field [facility] COMPLETE BLOOD COUNT 2024-05-29 05:27:00 Elsa Field [facility] AUTOMATED DIFFERENTIAL 2024-05-29 05:27:00 Elsa Field [facility] PROTIME-INR 2024-05-28 13:44:00 Baron Gaytan [facility] COMPREHENSIVE METABOLIC PANEL 2024-05-28 02:10:00 Elsa Field [facility] COMPLETE BLOOD COUNT W/DIFF AND PLATELET 2024-05-28 02:10:00 Emir [facility] COMPLETE BLOOD COUNT 2024-05-28 02:10:00 Elsa Field [facility] AUTOMATED DIFFERENTIAL 2024-05-28 02:10:00 Elsa Fiedl [facility] EEG CONTINUOUS MONITORING 2024-05-27 21:50:00 Betty Pakrer [facility] COMPREHENSIVE METABOLIC PANEL 2024-05-27 04:28:00 Elsa Field [facility] COMPLETE BLOOD COUNT W/DIFF AND PLATELET 2024-05-27 04:28:00 Elsa Field [facility] COMPLETE BLOOD COUNT 2024-05-27 04:28:00 Elsa Field [facility] AUTOMATED DIFFERENTIAL 2024-05-27 04:28:00 Elsa Field [facility] COMPREHENSIVE METABOLIC PANEL 2024-05-26 01:54:00 Elsa Field [facility] COMPLETE BLOOD COUNT W/DIFF AND PLATELET 2024-05-26 01:54:00 Esla Field [facility] COMPLETE BLOOD COUNT 2024-05-26 01:54:00 Elsa Field [facility] AUTOMATED DIFFERENTIAL 2024-05-26 01:54:00 Elsa Field [facility] XR ANKLE 3+ VIEWS RIGHT 2024-05-25 13:00:00 Kevin Villegas [facility] CT ANKLE RIGHT WO IV CONTRAST 2024-05-25 12:46:55 Kevin Villegas [facility] COMPREHENSIVE METABOLIC PANEL 2024-05-25 02:37:00 Elsa Field [facility] COMPLETE BLOOD COUNT W/DIFF AND PLATELET 2024-05-25 02:35:00 Elsa Field [facility] PLATELET COUNT MANUAL 2024-05-25 02:35:00 Gabriela West [facility] COMPLETE BLOOD COUNT 2024-05-25 02:35:00 Elsa Field [facility] AUTOMATED DIFFERENTIAL 2024-05-25 02:35:00 Elsa Field [facility] POTASSIUM LEVEL 2024-05-24 08:38:00 [facility]24-05-24 08:38:00 Gabriela West [facility] COMPREHENSIVE METABOLIC PANEL 2024-05-24 04:25:00 Elsa Field [facility] HEMOGLOBIN A1C 2024-05-24 04:25:00 Gabriela West [facility] COMPLETE BLOOD COUNT W/DIFF AND PLATELET 2024-05-24 04:25:00 Elsa Field [facility] PT AND PTT 2024-05-24 04:25:00 Elsa Field [facility] COMPLETE BLOOD COUNT 2024-05-24 04:25:00 Elsa Field [facility] AUTOMATED DIFFERENTIAL 2024-05-24 04:25:00 Elsa Field [facility] UA WITH CULTURE IF INDICATED 2024-05-23 21:39:00 Gabriela West Cristal [facility] CT BRAIN WO IV CONTRAST 2024-05-23 05:42:00 Elsa Field [facility] TYPE AND SCREEN 2024-05-23 02:56:00 Elsa Field [facility] TROPONIN I HIGH SENSITIVITY CARESET (1ST HR) 2024-05-23 02:56:00 [facility]+ VIEWS RIGHT 2024-05-23 02:28:38 [facility] ANKLE 3+ VIEWS RIGHT 2024-05-23 02:28:07 [facility] TIBIA FIBULA 2 VIEWS RIGHT 2024-05-23 02:26:49 [facility] THROMBOELASTOGRAPH RAPID 2024-05-23 01:56:00 Elsa Field [facility] BASIC METABOLIC PANEL 2024-05-23 01:55:00 Santino [facility] HEPATIC FUNCTION PANEL 2024-05-23 01:55:00 [facility] ETHANOL L[facility] 2024-05-23 01:55:00 [facility] CREATINE KINASE (CK TOTAL) 2024-05-23 01:55:00 [facility] COMPLETE BLOOD COUNT W/DIFF AND PLATELET 2024-05-23 01:55:00 Santino [facility] TROPONIN I HIGH SENSITIVITY CARESET 2024-05-23 01:55:00 [facility] TROPONIN I HIGH SENSITIVITY CARESET (BASELINE) 2024-05-23 01:55:00 [facility] LACT[facility]ID WITH 2 HOUR REFLEX 2024-05-23 01:55[facility]00 [facility]24-05-23 01:55:00 Elsa Field [facility] COMPLETE BLOOD COUNT 2024-05-23 01:55:00 Asha De [facility] AUTOMATED DIFFERENTIAL 2024-05-23 01:55:00 Asha De [facility] ECG 12-LEAD 2024-05-23 01:53:02 Asha De [facility] CT EXTERNAL HEAD 2024-05-22 00:05:00 Casandra Lizette Y [facility] CT TRAUMA THORAX W CONTRAST 2023-11-05 04:16:45 Andrew Montanez [facility] CT TRAUMA THORACIC SPINE WO CONTRAST 2023-11-05 04:16:45 Andrew Montanez [facility] CT TRAUMA ABDOMEN PELVIS W CONTRAST 2023-11-05 04:16:45 Andrew Montanez [facility] CT TRAUMA LUMBAR SPINE WO CONTRAST 2023-11-05 04:16:45 Andrew Montanez [facility] CT MAXILLOFACIAL/MANDIBLE WO CONTRAST 2023-11-05 04:15:40 Andrew Montanez [facility] CT TRAUMA CERVICAL SPINE WO CONTRAST 2023-11-05 04:15:40 Andrew Montanez [facility] XR KNEE 3 VW RIGHT 2023-11-05 02:46:21 Andrew Montanez [facility] URINALYSIS 2023-11-05 02:30:00 Andrew Montanez [facility] LIPASE 2023-11-05 02:24:00 Andrew Montanez [facility] MAGNESIUM 2023-11-05 02:24:00 Andrew Montanez [facility] COMP. METABOLIC PANEL (05321) 2023-11-05 02:24:00 Andrew Montanez [facility] CBC WITH DIFF 2023-11-05 02:24:00 Andrew Montanez [facility] REFERRAL- REQUEST/RESPONSE 2023-09-12 20:19:10 Doctor Unassigned, [place] [facility] REFERRAL- REQUEST/RESPONSE 2023-09-02 18:58:35 Doctor Unassigned, [place] [facility] TRANSTHORACIC ECHO (TTE) COMPLETE W/ CONTRAST 2023-08-30 15:25:00 Jose, [facility] MYOCARDIUM PERFUSION STRESS AND REST 2023-08-30 14:40:00 Jose, [facility] MYOCARDIUM PERFUSION STRESS AND REST 2023-08-30 14:40:00 Jose, [facility] MYOCARDIUM PERFUSION STRESS AND REST 2023-08-30 14:40:00 Jose, [facility] MYOCARDIUM PERFUSION STRESS AND REST 2023-08-30 14:40:00 [facility]- REQUEST/RESPONSE 2023-06-21 06:01:00 Doctor Unassigned, [place] [facility] REFERRAL- REQUEST/RESPONSE 2023-06-03 06:01:00 Doctor Unassigned, [place] [facility] ADVANCE DIRECTIVE 2023-03-16 06:01:00 Doctor Unassigned, [place] [facility] MAGNESIUM 2023-03-10 09:42:00 [facility] BAS[facility]ABOLIC PANEL (NA, K, CL, CO2, GLUCOSE, BUN, CREATININE, CA) 2023-03-10 09:42:00 [facility] WITH DIFF 2023-03-10 09:42:00 [facility] MAGNESIUM 2023-03-09 11:08:00 Geena [facility] BASIC METABOLIC PANEL (NA, K, CL, CO2, GLUCOSE, BUN, CREATININE, CA) 2023-03-09 11:08:00 [facility] CBC WITH DIFF 2023-03-09 11:08:00 Geena [facility] COMP. METABOLIC PANEL ([id number]) 2023-03-05 09:46:[address] [facility] CBC WITH DIFF 2023-03-05 09:46:00 Heck, Yumeng [facility] BLOOD CULTURE SCREEN 2023-03-05 00:38:00 Dionte [facility] BLOOD CULTURE SCREEN 2023-03-05 00:31:00 Dionte [facility] CT STROKE ANGIOGRAM HEAD 2023-03-04 19:07:53 [facility]GIO[facility] NECK 2023-03-04 19:07:53 [facility] HEAD WO CONTRAST 2023-03-04 19:06:48 Lisa Turner [facility] TROPONIN I 2023-03-04 18:49:00 Lisa Turner [facility] BASIC METABOLIC PANEL (NA, K, CL, CO2, GLUCOSE, BUN, CREATININE, CA) 2023-03-04 18:49:00 Dionte [facility] CBC WITHOUT DIFF 2023-03-04 18:49:00 [facility]R 2023-03-04 18:49:00 Lisa Turner [facility] ACTIVATED PARTIAL THRMPLAS NBA 2023-03-04 18:49:00 [facility] INDIRECT ANTIGLOBULIN TEST 2023-03-04 18:49:00 Christopher Heck [facility] POCT GLUCOSE (AUTOMATED) 2023-03-04 18:43:00 Lisa Turner [facility] CBC WITH DIFF 2023-03-04 11:12:00 Dionte [facility] BASIC METABOLIC PANEL (NA, K, CL, CO2, GLUCOSE, BUN, CREATININE, CA) 2023-03-04 11:12:00 Dionte [facility] MAGNESIUM 2023-03-04 11:12:00 Dionte [facility] PHOSPHORUS 2023-03-04 11:12:00 Dionte [facility] PHOSPHORUS 2023-03-04 11:12:00 Dionte [facility] MAGNESIUM 2023-03-04 11:12:00 Dionte [facility] BASIC METABOLIC PANEL (NA, K, CL, CO2, GLUCOSE, BUN, CREATININE, CA) 2023-03-04 11:12:00 Gordomalcolm [facility] CBC WITH DIFF 2023-03-04 11:12:00 Gordomalcolm [facility] XR KUB 2023-03-03 09:03:00 Loghin [facility] XR KUB 2023-03-03 09:03:00 Loghin, [facility] XR KUB 2023-03-03 08:46:00 Loghin, [facility] XR KUB 2023-03-03 08:46:00 Loghin, [facility] XR KUB 2023-03-03 07:38:00 Loghin, [facility] XR KUB 2023-03-03 07:38:00 Loghin, [facility] XR ABDOMEN 1 VW 2023-03-03 05:28:00 Gordomalcolm [facility] XR ABDOMEN 1 VW 2023-03-03 05:28:00 Dionte [facility] PROTHROMBIN TIME / INR 2023-03-02 19:10:00 [facility] PROTHROMBIN TIME / INR 2023-03-02 19:10:00 [facility] IRON PANEL 2023-03-02 10:36:00 Carlos Vincent [facility] FERRITIN SERUM 2023-03-02 10:36:00 Carlos iVncent [facility] CBC WITH DIFF 2023-03-02 10:36:00 Carlos Vincent [facility] BASIC METABOLIC PANEL (NA, K, CL, CO2, GLUCOSE, BUN, CREATININE, CA) 2023-03-02 10:36:00 Carlos Vincent [facility] MAGNESIUM 2023-03-02 10:36:00 Carlos Vincent [facility] PHOSPHORUS 2023-03-02 10:36:00 Carlos Vincent [facility] PHOSPHORUS 2023-03-02 10:36:00 VincentCarlos [facility] MAGNESIUM 2023-03-02 10:36:00 VincentCarlos [facility] FERRITIN SERUM 2023-03-02 10:36:00 VincentCarlos lehman [facility] BASIC METABOLIC PANEL (NA, K, CL, CO2, GLUCOSE, BUN, CREATININE, CA) 2023-03-02 10:36:00 VincentCarlos [facility] IRON PANEL 2023-03-02 10:36:00 VincentCarlos [facility] CBC WITH DIFF 2023-03-02 10:36:00 VincentCarlos [facility] XR CHEST 1 VW 2023-03-02 06:52:00 [facility] 2023-03-02 06:52:00 Roger Chan [facility] CBC WITHOUT DIFF 2023-03-01 23:03:00 VincentCarlos [facility] CBC WITHOUT DIFF 2023-03-01 23:03:00 VincentCarlos [facility] [place] MODIFIED BARIUM SWALLOW 2023-03-01 20:00:00 Sincere Arellano [facility] [place] MODIFIED BARIUM SWALLOW 2023-03-01 20:00:00 Sincere Arellano [facility] TRANSFUSE PACKED RBC 2023-03-01 14:50:00 Yusuf Greenlos angelesneftali [facility] TRANSFUSE PACKED RBC 2023-03-01 14:50:00 Yusuf Greenlos angelesneftali [facility] PREPARE PACKED RBC 2023-03-01 14:31:00 BilYusuf cartwrightlos angelesneftali [facility] PREPARE PACKED RBC 2023-03-01 14:31:00 Yusuf Greenlos angelesneftali [facility] AMMONIA, PLASMA 2023-03-01 11:20:00 [facility] AMMONIA, PLASMA 2023-03-01 11:20:00 [facility] WITH DIFF 2023-03-01 10:47:00 VincentCarlos [facility] BASIC METABOLIC PANEL (NA, K, CL, CO2, GLUCOSE, BUN, CREATININE, CA) 2023-03-01 10:47:00 VincentCarlos [facility] MAGNESIUM 2023-03-01 10:47:00 VincentCarlos [facility] MAGNESIUM 2023-03-01 10:47:00 VincentCarlos [facility] BASIC METABOLIC PANEL (NA, K, CL, CO2, GLUCOSE, BUN, CREATININE, CA) 2023-03-01 10:47:00 Vincent, Carlos Doran [facility] CBC WITH DIFF 2023-03-01 10:47:00 VincentCarlos lehman [facility] CBC WITH DIFF 2023-02-28 09:36:00 [facility] 2023-02-28 09:36:[address] [facility] COMP. METABOLIC PANEL ([id number]) 2023-02-28 09:36:00 [facility] / INR 2023-02-28 09:36:00 Ying Saenznathan [facility] MAGNESIUM 2023-02-28 09:36:00 [facility] COMP. METABOLIC PANEL ([id number]) 2023-02-28 09:36:00 [facility] WITH DIFF 2023-02-28 09:36:[address] [facility] PROTHROMBIN TIME / INR 2023-02-28 09:36:00 Elfego Saenz [facility] CBC WITHOUT DIFF 2023-02-28 01:06:00 [facility] WITHOUT DIFF 2023-02-28 01:06:00 [facility] TRANSF[facility]ACKED RBC 2023-02-27 21:27:00 [facility] TRANSFUSE PACKED RBC 2023-02-27 21:27:00 [facility] 2023-02-27 21:19:05 Adriana Severinoesha [facility] PREPARE PACKED RBC 2023-02-27 21:19:05 [facility] 2023-02-27 19:13:00 Marcie Trujillo [facility] ABORH CONFIRMATION (LAB ONLY) 2023-02-27 19:13:00 Zion Vila [facility] PHOSPHORUS 2023-02-27 19:13:00 Marcie Trujillo [facility] ABORH CONFIRMATION (LAB ONLY) 2023-02-27 19:13:00 Zion Vila [facility] HB ABO GROUPING 2023-02-27 18:39:00 [facility] 2023-02-27 18:39:00 [facility] SPUTUM CULTURE 2023-02-27 17:28:00 [facility] SPUTUM CULTURE 2023-02-27 17:28:00 [facility] US ABDOMEN LIMITED 2023-02-27 15:43:[address] [facility] US ABDOMEN LIMITED 2023-02-27 15:43:53 [facility] FIBRINOGEN 2023-02-27 14:44:00 [facility] ACTIVATED PARTIAL THRMPLAS NBA 2023-02-27 14:44:00 [facility] D-DIMER 2023-02-27 14:44:00 [facility] DIFF CONSULT BY PATHOLOGIST 2023-02-27 14:44:00 [facility] CBC WITH DIFF 2023-02-27 14:44:00 [facility] DIFF CONSULT INTERPRETATION 2023-02-27 14:44:00 [facility] DIFF CONSULT BY PATHOLOGIST 2023-02-27 14:44:00 [facility] CBC WITH DIFF 2023-02-27 14:44:00 [facility] D-DIMER 2023-02-27 14:44:00 [facility] ACT[facility] PARTIAL THRMPLAS NBA 2023-02-27 14:44:00 Abigail Chavez [facility] FIBRINOGEN 2023-02-27 14:44:[address] [facility] DIFF CONSULT INTERPRETATION 2023-02-27 14:44:00 [facility] WITH DIFF 2023-02-27 09:25:00 [facility] MAGNESIUM 2023-02-27 09:25:00 [facility] PHOSPHORUS 2023-02-27 09:25:00 [facility] COMP. METABOLIC PANEL ([id number]) 2023-02-27 09:25:00 [facility] PROTHROMBIN [facility] / INR 2023-02-27 09:25:00 [facility] BILI UNCONJUGATED/BILI CONJUG 2023-02-27 09:25:00 [facility] PHOSPHORUS 2023-02-27 09:25:00 [facility] MAGNESIUM 2023-02-27 09:25:00 [facility] BILI UNCONJUGATED/BILI CONJUG 2023-02-27 09:25:00 [facility] COMP. METABOLIC PANEL ([id number]) 2023-02-27 09:25:00 [facility] WITH DIFF 2023-02-27 09:25:00 [facility] PROTHROMBIN TIME / INR 2023-02-27 09:25:00 [facility] XR CHEST 1 VW 2023-02-27 05:16:00 Yusuf Green [facility] XR CHEST 1 VW 2023-02-27 05:16:00 Yusuf Green [facility] AC PANEL 20 + LACTIC ACID 2023-02-27 03:56:00 [facility] AC PANEL 20 + LACTIC ACID 2023-02-27 03:56:00 BilalYusuf [facility] MAGNESIUM 2023-02-26 11:18:00 [facility] COMP. METABOLIC PANEL ([id number]) 2023-02-26 11:18:00 [facility]UM 2023-02-26 11:18:00 [facility] COMP. METABOLIC PANEL ([id number]) 2023-02-26 11:18:00 [facility] CBC WITH DIFF 2023-02-26 11:13:[address] [facility] CBC WITH DIFF 2023-02-26 11:13:[address] [facility] SPUTUM CULTURE 2023-02-26 04:05:[address] [facility] SPUTUM CULTURE 2023-02-26 04:05:[address] [facility] BLOOD CULTURE SCREEN 2023-02-25 23:28:[address] [facility] BLOOD CULTURE SCREEN 2023-02-25 23:28:[address] [facility] BLOOD CULTURE SCREEN 2023-02-25 23:17:00 [facility] CBC WITHOUT DIFF 2023-02-25 23:17:00 [facility] BLOOD CULTURE SCREEN 2023-02-25 23:17:00 [facility] CBC WITHOUT DIFF 2023-02-25 23:17:00 [facility] ARTERIAL BLOOD GAS 2023-02-25 16:06:00 [facility] ARTERIAL BLOOD GAS 2023-02-25 16:06:00 [facility] X[facility] CHEST 1 VW 2023-02-25 15:40:00 [facility] XR CHEST 1 VW 2023-02-25 15:40:00 [facility] CBC WITH DIFF 2023-02-25 10:32:[address] [facility] MAGNESIUM 2023-02-25 10:32:00 [facility] COMP. METABOLIC PANEL ([id number]) 2023-02-25 10:32:00 [facility] 2023-02-25 10:32:00 [facility] PH[facility]US 2023-02-25 10:32:00 [facility] MAG[facility]UM 2023-02-25 10:32:[address] [facility] COMP. METABOLIC PANEL ([id number]) 2023-02-25 10:32:00 [facility] CBC WITH DIFF 2023-02-25 10:32:[address] [facility] BASIC METABOLIC PANEL (NA, K, CL, CO2, GLUCOSE, BUN, CREATININE, CA) 2023-02-24 18:11:00 [facility] BASIC METABOLIC PANEL (NA, K, CL, CO2, GLUCOSE, BUN, CREATININE, CA) 2023-02-24 18:11:[address] [facility] BASIC METABOLIC PANEL (NA, K, CL, CO2, GLUCOSE, BUN, CREATININE, CA) 2023-02-24 09:21:00 [facility] CBC WITH DIFF 2023-02-24 09:21:00 [facility] 2023-02-24 09:21:[address] [facility] COMP. METABOLIC PANEL ([id number]) 2023-02-24 09:21:00 [facility] PHOS[facility]US 2023-02-24 09:21:00 [facility] PHOS[facility]US 2023-02-24 09:21:[address] [facility] MAGNESIUM 2023-02-24 09:21:[address] [facility] BASIC METABOLIC PANEL (NA, K, CL, CO2, GLUCOSE, BUN, CREATININE, CA) 2023-02-24 09:21:00 [facility] COMP. METABOLIC PANEL ([id number]) 2023-02-24 09:21:00 [facility] CBC WITH DIFF 2023-02-24 09:21:00 [facility] CBC WITH DIFF 2023-02-23 08:35:00 [facility] MAGN[facility]UM 2023-02-23 08:35:00 [facility] COMP. METABOLIC PANEL ([id number]) 2023-02-23 08:35:00 [facility] MAGN[facility]UM 2023-02-23 08:35:00 [facility] COMP. METABOLIC PANEL ([id number]) 2023-02-23 08:35:00 [facility] CBC WITH DIFF 2023-02-23 08:35:00 [facility] AC PANEL 20 + LACTIC ACID 2023-02-22 21:51:00 Oniel [facility] AC PANEL 20 + LACTIC ACID 2023-02-22 21:51:00 Oniel [facility] AC PANEL 20 + LACTIC ACID 2023-02-22 16:21:00 Kim Francis [facility] AC PANEL 20 + LACTIC ACID 2023-02-22 16:21:00 Kim Francis [facility] HIT - AB 2023-02-22 15:18:00 [facility] EX[facility] FOR ARUP 2023-02-22 15:18:00 [facility] HIT - AB 2023-02-22 15:18:00 [facility] FOR VTUP 2023-02-22 15:18:[address] [facility] CBC WITHOUT DIFF 2023-02-22 10:07:00 Kim Francis [facility] MAGNESIUM 2023-02-22 10:07:00 Kim Francis [facility] COMP. METABOLIC PANEL ([id number]) 2023-02-22 10:07:00 Kim Francis [facility] PROTHROMBIN TIME / INR 2023-02-22 10:07:00 Kim Francis [facility] MAGNESIUM 2023-02-22 10:07:00 Kim Francis [facility] COMP. METABOLIC PANEL ([id number]) 2023-02-22 10:07:00 Kim Francis [facility] CBC WITHOUT DIFF 2023-02-22 10:07:00 Kim Francis [facility] PROTHROMBIN TIME / INR 2023-02-22 10:07:00 Kim Francis [facility] ACUTE CARE ARTERIAL BLOOD GAS 2023-02-21 22:48:00 John Arellano Rubén [facility] ACUTE CARE ARTERIAL BLOOD GAS 2023-02-21 22:48:00 John Arellano [facility] XR KUB 2023-02-21 22:37:00 Oniel [facility] XR KUB 2023-02-21 22:37:00 Oniel [facility] XR CHEST 1 VW 2023-02-21 22:34:00 Oniel [facility] XR CHEST 1 VW 2023-02-21 22:34:00 Oniel [facility] INTUBATION 2023-02-21 21:08:00 [facility]21 21:08[facility]00 [facility] AC PANEL 20 + LACTIC ACID 2023-02-21 20:24:00 Roger Chan [facility] AC PANEL 20 + LACTIC ACID 2023-02-21 20:24:00 Roger Chan [facility] AC PANEL 20 + LACTIC ACID 2023-02-21 17:09:00 Jonathan Engle [facility] AC PANEL 20 + LACTIC ACID 2023-02-21 17:09:00 Oniel [facility] HB ECG ROUTINE & RHYTHM STRIP 2023-02-21 15:29:31 Roger Chan [facility] HB ECG ROUTINE & RHYTHM STRIP 2023-02-21 15:29:31 Roger Chan [facility] TRANSTHORACIC ECHO (TTE) COMPLETE W/ CONTRAST 2023-02-21 15:28:25 [facility] (TTE) COMPLETE W/ CONTRAST 2023-02-21 15:28:25 [facility]W 2023-02-21 11:49:00 [facility] 1 VW 2023-02-21 11:49:00 [facility] CBC WITH DIFF 2023-02-21 10:30:00 [facility] BASIC METABOLIC PANEL (NA, K, CL, CO2, GLUCOSE, BUN, CREATININE, CA) 2023-02-21 10:30:00 [facility] HEPATIC FUNCTION PANEL ([id number]) (ALB,T.PRO,BILI T,BU/BC,ALT,AST,ALK PHOS) 2023-02-21 10:30:00 [facility] PROTHROMBIN TIME / INR 2023-02-21 10:30:00 [facility] HEPATIC FUNCTION PANEL ([id number]) (ALB,T.PRO,BILI T,BU/BC,ALT,AST,ALK PHOS) 2023-02-21 10:30:00 [facility] BASIC METABOLIC PANEL (NA, K, CL, CO2, GLUCOSE, BUN, CREATININE, CA) 2023-02-21 10:30:00 [facility] CBC WITH DIFF 2023-02-21 10:30:00 [facility] PROTHROMBIN TIME / INR 2023-02-21 10:30:00 [facility] XR KUB 2023-02-20 23:05:00 Cait Roche [facility] XR KUB 2023-02-20 23:05:00 Cait Roche [facility] XR KUB 2023-02-20 22:55:00 Sincere Arellaon [facility] XR KUB 2023-02-20 22:55:00 Sincere Arellano [facility] XR CHEST 1 VW 2023-02-20 22:49:00 Sincere Arellano [facility] XR CHEST 1 VW 2023-02-20 22:49:00 Sincere Arellano [facility] CT HEAD WO CONTRAST 2023-02-20 20:54:12 Sincere Arellano [facility] CT HEAD WO CONTRAST 2023-02-20 20:54:12 Sincere Arellano [facility] AC PANEL 20 + LACTIC ACID 2023-02-20 19:54:00 Sincere Arellano [facility] AC PANEL 20 + LACTIC ACID 2023-02-20 19:54:00 Sincere Arellano [facility] AMMONIA, PLASMA 2023-02-20 18:47:00 Sincere Arellano [facility] AMMONIA, PLASMA 2023-02-20 18:47:00 Sincere Arellano [facility] BASIC METABOLIC PANEL (NA, K, CL, CO2, GLUCOSE, BUN, CREATININE, CA) 2023-02-20 18:46:00 Sincere Arellano [facility] HIV 1/2 AG-AB WITH REFLEX 2023-02-20 18:46:00 [facility] BASIC METABOLIC PANEL (NA, K, CL, CO2, GLUCOSE, BUN, CREATININE, CA) 2023-02-20 18:46:00 Sincere Arellano [facility] HIV 1/2 AG-AB WITH REFLEX 2023-02-20 18:46:00 [facility]SE (AUTOMATED) 2023-02-20 16:12:00 Zion Vila [facility] POCT GLUCOSE (AUTOMATED) 2023-02-20 16:12:00 Zion Vila [facility] PHOSPHORUS 2023-02-20 09:25:00 Sincere Arellano [facility] MAGNESIUM 2023-02-20 09:25:00 Sincere Arellano [facility] BASIC METABOLIC PANEL (NA, K, CL, CO2, GLUCOSE, BUN, CREATININE, CA) 2023-02-20 09:25:00 Sincere Arellano [facility] CBC WITH DIFF 2023-02-20 09:25:00 Sincere Arellano [facility] PROTHROMBIN TIME / INR 2023-02-20 09:25:00 Elfego Saenz [facility] PHOSPHORUS 2023-02-20 09:25:00 [facility] 2023-02-20 09:25:00 Adan Sincere [facility] BASIC METABOLIC PANEL (NA, K, CL, CO2, GLUCOSE, BUN, CREATININE, CA) 2023-02-20 09:25:00 Adan [facility] CBC WITH DIFF 2023-02-20 09:25:00 Adan [facility] PROTHROMBIN TIME / INR 2023-02-20 09:25:[address] [facility] [facility]EN PELVIS WO CONTRAST 2023-02-20 07:07:[address] [facility] [address] ABDOMEN PELVIS WO CONTRAST 2023-02-20 07:07:32 [facility] XR CHEST 1 VW 2023-02-19 22:17:00 BilYusuf cartwright [facility] XR CHEST 1 VW 2023-02-19 22:17:00 Yusuf Green [facility] AMMONIA, PLASMA 2023-02-19 13:30:00 Adan [facility] AMMONIA, PLASMA 2023-02-19 13:30:00 Adan [facility] COMP. METABOLIC PANEL ([id number]) 2023-02-19 12:47:00 Adan Sincere [facility] OSMOLALITY, SERUM OR PLASMA 2023-02-19 12:47:00 Faustina Bourgeois [facility] HEPATIC FUNCTION PANEL ([id number]) (ALB,T.PRO,BILI T,BU/BC,ALT,AST,ALK PHOS) 2023-02-19 12:47:00 [facility] OSMOLALITY, SERUM OR PLASMA 2023-02-19 12:47:00 Faustina Bourgeois [facility] HEPATIC FUNCTION PANEL ([id number]) (ALB,T.PRO,BILI T,BU/BC,ALT,AST,ALK PHOS) 2023-02-19 12:47:00 [facility] COMP. METABOLIC PANEL ([id number]) 2023-02-19 12:47:00 Sincere Arellano [facility] BLOOD CULTURE SCREEN 2023-02-19 09:50:00 [facility] BLOOD [facility] SCREEN 2023-02-19 09:50:00 [facility] BLOOD [facility] SCREEN 2023-02-19 09:49:00 [facility] BLOOD CULTURE SCREEN 2023-02-19 09:49:00 [facility] URINE CULTURE 2023-02-19 09:17:00 [facility] URINE CULTURE 2023-02-19 09:17:00 [facility] US RETROPERITONEAL LIMITED 2023-02-19 07:46[facility] 2023-02-19 07:46:55 Abdias Cook [facility] SODIUM, URINE RANDOM 2023-02-19 07:21:00 Abdias Cook [facility] POTASSIUM, URINE RANDOM 2023-02-19 07:21:00 Abdias Cook [facility] CREATININE, URINE RANDOM 2023-02-19 07:21:00 Abdias Cook [facility] URINALYSIS 2023-02-19 07:21:00 [facility] URINAL[facility]IS 2023-02-19 07:21:00 [facility] CREATININE, URINE RANDOM 2023-02-19 07:21:00 Abdias Cook [facility] POTASSIUM, URINE RANDOM 2023-02-19 07:21:00 Abdias Cook [facility] SODIUM, URINE RANDOM 2023-02-19 07:21:00 Abdias Cook Cosmos [facility] HEPATITIS B SURFACE ANTIBODY 2023-02-19 07:11:00 [facility] HEPATITIS C VIRUS (HCV) BY QUANTITATIVE NAAT 2023-02-19 07:11:00 [facility] ANTIBODY 2023-02-19 07:11:00 [facility] ETHANOL 2023-02-19 07:11:00 [facility] MAGNESIUM 2023-02-19 07:11:00 [facility] PHOSPHORUS 2023-02-19 07:11:00 [facility] HEPATITIS B SURFACE ANTIGEN 2023-02-19 07:11:00 Adan [facility] HBC ANTIBODY (IGM & IGG) 2023-02-19 07:11:00 Adan [facility] [facility] SYPHILIS IGG/IGM 2023-02-19 07:11:00 Dany [facility] PHOSPHORUS 2023-02-19 07:11:00 Maycol [facility] MAGNESIUM 2023-02-19 07:11:00 Maycol [facility] ETHANOL 2023-02-19 07:11:00 Dany [facility] HEPATITIS B SURFACE ANTIBODY 2023-02-19 07:11:00 Maycol [facility] HEPATITIS B SURFACE ANTIGEN 2023-02-19 07:11:00 Adan Sincere [facility] HCV ANTIBODY 2023-02-19 07:11:00 Maycol [facility] HBC ANTIBODY (IGM & IGG) 2023-02-19 07:11:00 Adan Sincere [facility] HEPATITIS C VIRUS (HCV) BY QUANTITATIVE NAAT 2023-02-19 07:11:00 Maycol [facility] SYPHILIS IGG/IGM 2023-02-19 07:11:00 Dany [facility] XR CHEST 1 VW 2023-02-19 06:36:[facility] 2023-02-19 06:36:00 Rhoda Severino [facility] PROTHROMBIN TIME / INR 2023-02-19 05:51:00 Abdias Cook [facility] PROTHROMBIN TIME / INR 2023-02-19 05:51:00 Abdias Cook [facility] AC PANEL 21 + LACTIC ACID 2023-02-19 05:24:00 Rhoda Severino [facility] AC PANEL 21 + LACTIC ACID 2023-02-19 05:24:00 [facility] MRSA / MSSA SCREEN BY PCRPAULA 2023-02-19 05:20:00 [facility] COMP. METABOLIC PANEL (85635) 2023-02-19 05:20:00 Abdias Cook [facility] HEPATIC FUNCTION PANEL (13389) (ALB,T.PRO,BILI T,BU/BC,ALT,AST,ALK PHOS) 2023-02-19 05:20:00 Abdias Cook [facility] CBC WITH DIFF 2023-02-19 05:20:00 Quin Cookmonique [facility] HEPATITIS B CORE ANTIBODY IGM 2023-02-19 05:20:00 Rhoda Severino [facility] HEPATITIS B SURFACE ANTIGEN 2023-02-19 05:20[facility]US ANTIBODY IGM 2023-02-19 05:20:00 [facility] HEPATIC FUNCTION PANEL (13458) (ALB,T.PRO,BILI T,BU/BC,ALT,AST,ALK PHOS) 2023-02-19 05:20:00 Abdias Cook [facility] COMP. METABOLIC PANEL ([id number]) 2023-02-19 05:20:00 [facility] CBC WITH DIFF 2023-02-19 05:20[facility] 2023-02-19 05:20:00 Rhoda Severino [facility] HEPATITIS A VIRUS ANTIBODY IGM 2023-02-19 05:20:00 Rhoda Severino [facility] HEPATITIS B CORE ANTIBODY IGM 2023-02-19 05:20:00 Rhoda Severino [facility] MRSA / MSSA SCREEN BY PCRPAULA 2023-02-19 05:20:00 Abdias Cook [facility] DISCLOSURE AND CONSENT, MEDICAL AND SURGICAL PROCEDURES 2023-02-19 05:01:00 Doctor Unassigned, [place] [facility] NO SHOW OR MISSED APPOINTMENT POLICY ACKNOWLEDGEMENT 2022-11-18 21:24:55 Doctor Unassigned, [place] [facility] PATIENT FINANCIAL POLICY 2022-11-18 21:24:37 Doctor Unassigned, [place] [facility] NOTICE OF PRIVACY PRACTICES 2022-11-18 21:24:20 Doctor Unassigned, [place] [facility] CONSENT/REFUSAL FOR DIAGNOSIS AND TREATMENT 2022-11-18 21:24:05 Doctor Unassigned, [place] [facility] ASSIGNMENT OF BENEFITS 2022-11-18 21:23:50 Doctor Unassigned, [place] [facility] Comprehensive Metabolic Panel [facility] Complete Blood Count w/Diff and Platelet [facility] EEG continuous monitoring [facility] Plan of Care Planned Activity Planned Date Details Comments Source Procedure 2024-06-22 00:00:00 POCT Glucose [facility] Encounters Start Date/Time End Date/Time Encounter Type Admission Type Attending [facility] Care Facility Care Department Encounter ID Source 2023-09-02 00:00:00 2024-06-09 07:49:00 Orders Only Doctor Unassigned, [place] Doctor Unassigned, [place] [facility] 1.2.840.114 350.1.13.10 4.2.7.2.686 [id number] [facility] 2023-09-12 00:00:00 2024-06-09 07:45:19 Orders Only Doctor Unassigned, [place] Doctor Unassigned, [place] [facility] 1.2.840.114 350.1.13.10 4.2.7.2.686 [id number] [facility] 2024-05-23 01:00:00 2024-05-31 16:26:00 Hospital Encounter Casandra, Lizette Cotnreras, Nikita Duval, Jesús Yun, Alejandro Shearer, Betty Lee [facility] 1..840.114 350.1.13.70 8.2.7.2.686 [id number] Shama carr [facility] 2024-05-23 01:00:00 2024-05-31 16:26:00 Inpatient Trauma Center BETTY PARKER [facility] General Medicine [id number] [facility] 2024-05-23 01:36:31 2024-05-23 01:36:31 Outpatient MHIEEPIC IEEPIC [id number] [facility] 2024-05-23 01:56:40 2024-05-22 23:59:00 Outpatient [facility] [id number] [facility] 2024-05-23 01:56:40 2024-05-22 23:59:00 Outpatient [facility] [id number] [facility] 2024-05-23 01:53:13 2024-05-22 23:59:00 Outpatient [facility] [id number] [facility] 2024-05-23 01:36:31 2024-05-22 23:59:00 Outpatient [facility] [id number] [facility] 2023-11-04 20:49:00 2023-11-05 01:51:00 Emergency X ANDREW MONTANEZ [facility] E[facility] [id number] [facility] 2023-11-04 20:49:00 2023-11-05 01:51:00 Emergency Andrew Montanez [facility] 1..840.114 350.1.13.10 4.2.7.2.686 [id number] [facility] 2023-09-28 13:00:00 2023-09-28 13:00:00 Outpatient R ARMANDO HICKEY STEPHANIEARMANDO MCKEE [facility] [id number] [facility] 2023-09-22 00:00:00 2023-09-22 15:52:01 Telephone Carol Hickeyneftali Jordan [facility] 1.2.840.114 350.1.13.10 4.2.7.2.686 [id number] [facility] 2023-08-31 00:00:00 2023-08-31 10:42:14 [facility] 1.2840.114 350.1.13.10 4.2.7.2.686 [id number] [facility] 2023-08-30 07:35:05 2023-08-30 23:59:00 Hospital Encounter Jose, [facility] 1.2.840.114 350.1.13.10 4.2.7.2.686 [id number] [facility] 2023-08-30 07:34:50 2023-08-30 07:34:50 [facility] 1.2.840.114 350.1.13.10 4.2.7.2.686 [id number] [facility] 2023-08-30 07:34:43 2023-08-30 07:34:43 Hospital Encounter Jose, [facility] 1.2.840.114 350.1.13.10 4.2.7.2.686 [id number] [facility] 2023-08-30 07:34:36 2023-08-30 07:34:36 Hospital Encounter Jose, [facility] 1.2.840.114 350.1.13.10 4.2.7.2.686 [id number] [facility] 2023-08-30 07:34:05 2023-08-30 07:34:05 Outpatient R [facility] [id number] [facility] 2023-08-30 07:34:05 2023-08-30 07:34:05 Hospital Encounter Jose [facility] 1.2840.114 350.1.13.10 4.2.7.2.686 [id number] [facility] 2023-07-21 08:00:00 2023-07-21 08:00:00 Outpatient R [facility] [id number] [facility] 2023-07-13 15:40:00 2023-07-13 15:55:21 Outpatient R [facility] [id number] [facility] 2023-07-13 15:40:00 2023-07-13 15:55:21 [facility] 1.2840.114 350.1.13.10 4.2.7.2.686 [id number] [facility] 2023-06-21 00:00:00 2023-06-21 00:00:00 Orders Only Doctor Unassigned, [place] [facility] 1.2840.114 350.1.13.10 4.2.7.2.686 [id number] [facility] 2023-06-03 00:00:00 2023-06-03 00:00:00 Orders Only Doctor Unassigned, [place] [facility] 1.2840.114 350.1.13.10 4.2.7.2.686 [id number] [facility] 2023-03-16 00:00:00 2023-03-16 00:00:00 Orders Only Doctor Unassigned, [place] [facility] 1.2.840.114 350.1.13.10 4.2.7.2.686 [id number] [facility] 2023-03-11 00:00:00 2023-03-11 00:00:00 Transition of Care MaddibryonCielo KAN ESCALERA 1.2.840.114 350.1.13.10 4.2.7.2.686 [id number] [facility] 2023-02-18 23:56:00 2023-03-10 14:51:00 Inpatient U [facility] [id number] [facility] 2023-02-18 23:56:00 2023-03-10 14:51:00 Hospital Encounter Zion Vila, Tony Ballard, Alan Turner, Arpit Choi [facility] 1.2.840.114 350.1.13.10 4.2.7.2.686 [id number] [facility] 2023-03-03 00:00:00 2023-03-03 00:00:00 Travel 1.2.840.1 11838.1.1 3.104.2.7 .[id number] .8 1.2.840.114 350.1.13.10 4.2.7.3.698 [id number] [facility] 2023-02-21 16:17:36 2023-02-21 16:17:36 Anesthesia Event Ute Spencer 1.2.840.1 [id number] 3.104.2.7 .3.329434 .8 [id number] [facility] 2023-02-21 00:00:00 2023-02-21 00:00:00 Case Management Zeynep Orozco 1.2.840.1 [id number] 3.104.2.7 .3.044858 .[id number] [facility] 2022-11-18 16:27:08 2022-11-18 23:59:00 Outpatient R RADIOLOGY [facility] [id number] [facility] 2022-11-18 16:27:08 2022-11-18 23:59:00 Hospital Encounter Radiology [facility] 1.2.840.114 350.1.13.10 4.2.7.2.686 [id number] [facility] 2022-10-08 05:00:00 2022-10-08 05:00:00 Outpatient [facility] [id number] [facility] Results Test Description Test Time Test Comments Results Result Co mments Source [facility] TRAUMA CERVICAL SPINE WO [id number] 05:33:21 Ordering physician: ANDREW MONTANEZ Indication: Acute neck trauma, fall Comparison: None Technique:Axial images of the cervical spine were performed withoutadministration of intravenous contrast material. Images were reformatted incoronal and sagittal plane. CT scan was performed according to ALARA (aslow as reasonably achievable) policy. Findings: No acute fracture or dislocation of the cervical spine isappreciated. There is no apical pneumothorax. The cervical spine is innormal alignment. Nosignificant central canal stenosis is appreciated.[facility] MAXILLOFACIAL/MANDIBLE WO [id number] 05:31:39ORDERING PHYSICIAN:ANDREW POLK CLINICAL INFORMATION: ? Facial trauma, blunt RIGHT ORBITAL CONTUSION COMPARISON: None Technique: ? CT of the facial bones performed without IV contrast.Multiplanar re formats were also obtained. This study was performedaccording to ALARA principle for radiation dosereduction. Findings: There is a nondisplaced transversely oriented [...] visualized upper cervical spineis also within normal limits.[facility] TRAU[facility] THORAX W [id number] 05:23:19EXAM: CT TRAUMA THORAX W CONTRAST, CT TRAUMA THORACIC SPINE WO CONTRAST, CTTRAUMA ABDOMEN PELVIS W CONTRAST, CT TRAUMA LUMBAR SPINE WO CONTRAST ORDERING CLINICIAN: ? ANDREW ?CORIE HISTORY: Chest andabdominal pain. Back pain. Fall greater than 20 feet. COMPARISON: none TECHNIQUE: CT of the chest, abdomen, and pelvis with IV contrast. CT of thethoracic and lumbar spine. Coronal and sagittal reformatted images wereobtained. ?CT performed according to ALARA principles. TECHNICAL QUALITY: AdequateCT OF THE CHEST WITH CONTRAST: Minimal subpleural [...] nodularitypresent of the hepatic parenchyma. The liver [id number] cm in AP lengthand 19 cm in craniocaudal length. There is recanalization of the umbilicalvein.The patient is status post cholecystectomy. The spleen is enlargedand measures 14.2 x 6.5 x 13.2 cm. The pancreas is normal. The adrenals arenormal. ?The kidneys are normal. The stomach and small bowel appearunremarkable. There appears to be mild wall thickening of the cecum andproximal/mid ascending colon, though evaluation of the ascending colon issomewhat limited by under distention. The colonappears otherwiseunremarkable. The patient is post appendectomy. The intra-abdominal vasculature isnormal. There is no free fluid. ?There is no free air or pathologiclymphadenopathy. ?Multiple small mesenteric lymph nodes are seen [...] heightand alignment appear normal. ? No acute fractureis identified. ?Disc spaceheight appears preserved. ?Minor degenerative changes present with smallan terior osteophytes in the midthoracic spine. No significant central canalor foraminal stenosis. CT OF THE LUMBAR SPINE:There are 5 lumbar-type vertebral bodies. There is minimal 1 mmdegenerative retrolisthesis of L2 on L3 and L3 on L4. Vertebral body heightand alignment are otherwise preserved. ?Noacute fracture is identified. Moderate loss of disc space height present at L4-5 and L5-S1. Mildposterior loss of disc space height at L2-3 and L3-4. Multilevel discbulging and osteophyte formation present without significant central canalstenoses. There is partial sacralization of L5 on the right. Facetarthropathy present in the lower lumbar spine. There is moderate bilateralforaminal stenosis at L4-5. No other high-grade foraminal stenosis. [facility] TRA[facility] THORACIC SPINE WO [id number] 05:23:19EXAM: CT TRAUMA THORAX W CONTRAST, CT TRAUMA THORACIC SPINE WO CONTRAST, CTTRAUMA ABDOMEN PELVIS W CONTRAST, CT TRAUMA LUMBAR SPINE WO CONTRAST ORDERING CLINICIAN: ? ANDREW ?CORIE HISTORY: Chest andabdominal pain. Back pain. Fall greater than 20 feet. COMPARISON: none TECHNIQUE: CT of the chest, a bdomen, and pelvis with IV contrast. CT of thethoracic and lumbar spine. Coronal and sagittal reformatted images wereobtained. ?CT performed according to ALARA principles. TECHNICAL QUALITY: AdequateCT OF THE CHEST WITH CONTRAST: Minimal subpleural [...] nodularitypresent of the hepatic parenchyma. The liver .9 cm in AP lengthand 19 cm in craniocaudal length. There is recanalization of the umbilicalvein.The patient is status post cholecystectomy. The spleen is enlargedand measures 14.2 x 6.5 x 13.2 cm. The pancreas is normal. The adrenals arenormal. ?The kidneys are normal. The stomach and small bowel appearunremarkable. There appears to be mild wall thickening of the cecum andproximal/mid ascending colon, though evaluation of the ascending colon issomewhat limited by under distention. The colonappears otherwiseunremarkable. The patient is post appendectomy. The intra-abdominal vasculature isnormal. There is no free fluid. ?There is no free air or pathologiclymphadenopathy. ?Multiple small mesenteric lymph nodes are seen [...] old healed right-sided rib fractures are present. Posto perativeplating present of the right posterior fifth through ninth ribs. There issubtle irregularity of the anterior right fifth through seventh ribscompatible with nondisplaced acute rib fractures. The sternum is intact. Noclear acute pelvic fracture. CT OF THE THORACIC SPINE:There are 12 rib-bearing thoracic vertebral bodies. Vertebral body heightand alignment appear normal. ? No acute fractureis identified. ?Disc spaceheight appears preserved. ?Minor degenerative changes present with smallanterior osteophytes in the midthoracic spine. No significant central canalor foraminal stenosis. CT OF THE LUMBAR SPINE:There are 5 lumbar-type vertebral bodies. There is minimal 1 mmdegenerative retro listhesis of L2 on L3 and L3 on L4. Vertebral body heightand alignment are otherwise preserved. ?Noacute fracture is identified. Moderate loss of disc space height present at L4-5 and L5-S1. Mildposterior loss of disc space height at L2-3 and L3-4. Multilevel discbulging and osteophyte formation present without significant central canalstenoses. 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 There is moderate bilateralforaminal stenosis at L4-5. No other high-grade foraminal stenosis.[facility] ABDOMEN PELVIS W CONTRAST 2023-11-05 05:23:19EXAM: CT TRAUMA THORAX W CONTRAST, CT TRAUMA THORACIC SPINE WO CONTRAST, CTTRAUMA ABDOMEN PELVIS W CONTRAST, CT TRAUMA LUMBAR SPINE WO CONTRAST ORDERING CLINICIAN: ? ANDREW ?CORIE HISTORY: Chest andabdominal pain. Back pain. Fall greater than 20 feet. COMPARISON: none TECHNIQUE: CT of the chest, abdomen, and pelvis with IV contrast. CT of thethoracic and lumbar spine. Coronal and sagittal reformatted images wereobtained. ?CT performed according to ALARA principles. TECHNICAL QUALITY: AdequateCT OF THE CHEST WITH CONTRAST: Minimal subpleural [...] nodularitypresent of the hepatic parenchyma. The liver eothlflg63.9 cm in AP lengthand 19 cm in craniocaudal length. There is recanalization of the umbilicalvein.The patient is status post cholecystectomy. The spleen is enlargedand measures 14.2 x 6.5 x 13.2 cm. The pancreas is normal. The adrenals arenormal. ?The kidneys are normal. The stomach and small bowel appearunremarkable. There appears to be mild wall thickening of the cecum andproximal/mid ascending colon, though evaluation of the ascending colon issomewhat limited by under distention. The colonappears otherwiseunremarkable. The patient is post appendectomy. The intra-abdominal vasculature isnormal. There is no free fluid. ?There is no free air or pathologiclymphadenopathy. ?Multiple small mesenteric lymph nodes are seen [...] heightand alignment appear normal. ? No acute fractureis identified. ?Disc spaceheight appears preserved. ?Minor degenerative changes present with smallan terior osteophytes in the midthoracic spine. No significant central canalor foraminal stenosis. CT OF THE LUMBAR SPINE:There are 5 lumbar-type vertebral bodies. There is minimal 1 mmdegenerative retrolisthesis of L2 on L3 and L3 on L4. Vertebral body heightand alignment are otherwise preserved. ?Noacute fracture is identified. Moderate loss of disc space height present at L4-5 and L5-S1. Mildposterior loss of disc space height at L2-3 and L3-4. Multilevel discbulging and osteophyte formation present without significant central canalstenoses. There is partial sacralization of L5 on the right. Facetarthropathy present in the lower lumbar spine. There is moderate bilateralforaminal stenosis at L4-5. No other high-grade foraminal stenosis. [facility] LUMBAR SPINE WO [id number] 05:23:19EXAM: CT TRAUMA THORAX W CONTRAST, CT TRAUMA THORACIC SPINE WO CONTRAST, CTTRAUMA ABDOMEN PELVIS W CONTRAST, CT TRAUMA LUMBAR SPINE WO CONTRAST ORDERING CLINICIAN: ? ANDREW ?CORIE HISTORY: Chest andabdominal pain. Back pain. Fall greater than 20 feet. COMPARISON: none TECHNIQUE: CT of the chest, abdomen, and pelvis with IV contrast. CT of thethoracic and lumbar spine. Coronal and sagittal reformatted images wereobtained. ?CT performed according to ALARA principles. TECHNICAL QUALITY: AdequateCT OF THE CHEST WITH CONTRAST: Minimal subpleural [...] nodularitypresent of the hepatic parenchyma. The liver .9 cm in AP lengthand 19 cm in craniocaudal length. There is recanalization of the umbilicalvein.The patient is status post cholecystectomy. The spleen is enlargedand measures 14.2 x 6.5 x 13.2 cm. The pancreas is normal. The adrenals arenormal. ?The kidneys are normal. The stomach and small bowel appearunremarkable. There appears to be mild wall thickening of the cecum andproximal/mid ascending colon, though evaluation of the ascending colon issomewhat limited by under distention. The colonappears otherwiseunremarkable. The patient is post appendectomy. The intra-abdominal vasculature isnormal. There is no free fluid. ?There is no free air or pathologiclymphadenopathy. ?Multiple small mesenteric lymph nodes are seen [...] old healed right-sided rib fractures are present. Posto perativeplating present of the right posterior fifth through ninth ribs. There issubtle irregularity of the anterior right fifth through seventh ribscompatible with nondisplaced acute rib fractures. The sternum is intact. Noclear acute pelvic fracture. CT OF THE THORACIC SPINE:There are 12 rib-bearing thoracic vertebral bodies. Vertebral body heightand alignment appear normal. ? No acute fractureis identified. ?Disc spaceheight appears preserved. ?Minor degenerative changes present with smallanterior osteophytes in the midthoracic spine. No significant central canalor foraminal stenosis. CT OF THE LUMBAR SPINE:There are 5 lumbar-type vertebral bodies. There is minimal 1 mmdegenerative retro listhesis of L2 on L3 and L3 on L4. Vertebral body heightand alignment are otherwise preserved. ?Noacute fracture is identified. Moderate loss of disc space height present at L4-5 and L5-S1. Mildposterior loss of disc space height at L2-3 and L3-4. Multilevel discbulging and osteophyte formation present without significant central canalstenoses. 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 There is moderate bilateralforaminal stenosis at L4-5. No other high-grade foraminal stenosis.[facility] DallasXR KNEE 3 VW [id number] 03:27:54 Ordering Physician: ?ANDREW POLK HISTORY: Right knee pain COMPARISON: none FINDINGS:Three views of the right knee. ?There is no fracture or dislocation. ?Thereis no joint effusion. The joint spaces are normal. ?Soft tissue edema isseen. ?Atherosclerotic calcifications also seen in the arteries. No pubicbone bodies are seen in the soft tissues.[facility] DallasREFERRAL- REQUEST/[id number] 20:19:10Ordered by an unspecified provider.[facility] DallasREF[facility]- REQUEST/[id number] 18:58:35Ordered by an unspecified provider.[facility] DallasTransthoracic echo (TTE)2023-08-30 22:04:01* Test Item Value Reference Range Interpretation Comme nts Height (test code = 8937633033) 70 in Weight (test code = 5383714968) 205 lbs Systolic BP (test code = 3335516346) 163 mmHg Diastolic BP (test code = 4102504707) 97 mmHg Heart Rate (test code = 0903216207) 75 bpm BSA (test code = 8618902256) 2.11 m2 Ao root diam (test code = 6785997777) 3.90 cm Aortic root (test code = 5585132824) 3.9 cm Ao root annulus (test code = 6752256497) 3.9 cm LVOT diameter (test code = 9637485389) 2.18 cm LVOT area (test code = 7830236315) 3.70 cm2 LA size (test code = 6208728577) 4.1 cm LVIDD (test code = 1952576309) 5.70 cm Left Ventricular End Diastolic Volume by Teichholz Method (test code = 1972173) 159.3 mL IVS (test code = 5610212498) 1.29 cm Interventricular Septum Diastolic Thickness by 2D (test code = 9156066) 1.29 cm LVPWD (test code = 8241575715) 1.31 cm PW (test code = 2515659512) 1.31 cm 0.6-1.1 EF(Teich) (test code = 1231307304) 54.20 % LVIDS (test code = 2985863723) 4.10 cm Left Ventricular End Systolic Volume by Teichholz Method (test code = 7567951) 73.0 mL FS (test code = 3494767388) 29 % EF - 2D (test code = 83256364) 54.20 % Pulmonic Regurgitant End Max Velocity (test code = 8778101699) 113.9 cm/s LAV(MOD-sp4) (test code = 3253179064) 42.80 mL E wave decelartion time (test code = 8324735407) 0.14 s MV Peak A Cy (test code = 3277692335) 72.3 cm/s MV stenosis pressure 1/2 time (test code = 5980886531) 43.1 ms MV Peak E Cy (test code = 7911713954) 55.5 cm/s E/A ratio (test code = 8158996163) 0.77 ratio MV Prop V (test code = 5230791075) 34.80 cm/s MV E/e' septal (test code = 3677602205) 8.5 cm/s Tapse (test code = 2618523067) 2.06 cm LVOT stroke volume (test code = 6618333207) 75.00 cm3 LVOT peak cy (test code = 4184904581) 100.6 cm/s LVOT mn grad (test code = 4784401654) 2.0 mmHg AV LVOT peak gradient (test code = 5184264620) 4.0 mmHg LVOT peak VTI (test code = 5333326020) 20.1 cm LV V1 mean (test code = 5386172887) 66.30 cm/s Aortic valve mean velocity (test code = 3701971179) 94.0 cm/s Ao peak cy (test code = 7845372875) 133.1 cm/s Ao VTI (test code = 4423767814) 24.8 cm AV area by cont VTI (test code = 2220233910) 3.0 cm2 AV area peak cy (test code = 9142078608) 2.8 cm2 Ao max PG (test code = 1523360043) 7.10 mm[Hg] AV peak gradient (test code = 7005903202) 7.1 mmHg AV valve area (test code = 3456966190) 3.00 cm2 AV mean gradient (test code = 5474509003) 3.8 mmHg A4C EF (test code = 1731326102) 49.50 % EF(sp4-el) (test code = 9673125157) 50.00 % SV(MOD-sp4) (test code = 3478913845) 75.30 mL SV(sp4-el) (test code = 1804183834) 78.70 mL Radiology Study observation (narrative) (test code = 34425-8) BOBBY (test code = BOBBY) ?Left?Ventricle: Left ventricle is mildly dilated. Mildly increased wall thickness. There is mild eccentric hypertrophy. Moderate global hypokinesis present. Moderately reduced systolic function with a visually estimated EF of 35 - 40%. There is impaired relaxation. ?Right?Ventricle: Right ventricle size is normal. Normal systolic function. ?Tricuspid?Valve: Insufficient tricuspid regurgitation jet to estimate RVSP . ?RA pressure is 0-5 mmHg. Left VentricleLeft ventricle is mildly dilated. Mildly increased wall thickness. There is mild eccentric hypertrophy. Moderate global hypokinesis present. Moderately reduced systolic function with a visually estimated EF of 35 - 40%. There is impaired relaxation.Right VentricleRight ventricle size is normal. Normal systolic function.Left AtriumLeft atrium size is normal.Right AtriumRight atrium size is normal.IVC/SVCIVC diameter is less than or equal to 21 mm and decreases greater than 50% during inspiration; therefore the estimated right atrial pressure is normal (~0-5 mmHg).Mitral ValveMitral valve structure is normal. Trace transvalvular regurgitation. No stenosis.Tricuspid ValveTricuspid valve structure is normal. Trace transvalvular regurgitation. Insufficient tricuspid regurgitation jet to estimate RVSP . RA pressure is 0-5 mmHg. No stenosis.Aortic ValveTricuspid. Trace transvalvular regurgitation. No hemodynamically significant .Pulmonic ValveNot well visualized. Trace transvalvular regurgitation.Ascendin g AortaMildly enlarged ascending aorta.PericardiumThe pericardium is normal. No pericardial effusion.Study DetailsStudy quality was adequate. A complete echocardiogram was performed using 2D, color flow Doppler and spectral Doppler. 3 mL of Optison ultrasound enhancing agent used.Wall Scoring BaselineScore Index: 1.29The following segments are hypokinetic: apical anterior, apical septal, apical inferior, apical lateral and apex.All other segments are normal. [facility] [id number] 06:01:28* Test Item Value Reference Range Interpretation Comme nts Blood Culture-Aerobic (test code = 56410-1) No organisms isolated No growth Previous preliminary verified result was Culture In Progress on 03/05/2023 at 0301 CSTPrevious preliminary verified result was No growth at 24 hours on 03/06/2023 at 0001 CSTPrevious preliminary verified result was No growth at 48 hours on 03/07/2023 at 0001 CSTPrevious preliminary verified result was No growth at 72 hours on 03/08/2023 at 0001 [employer] Blood Culture-Anaerobic (test code = 32935-5) No organisms isolated No growth Previous preliminary verified result was Culture In Progress on 03/05/2023 at 0301 CSTPrevious preliminary verified result was No growth at 24 hours on 03/06/2023 at 0001 CSTPrevious preliminary verified result was No growth at 48 hours on 03/07/2023 at 0001 CSTPrevious preliminary verified result was No growth at 72 hours on 03/08/2023 at 0001 [employer] Lab Interpretation (test code = 93483-6) Normal [facility] [id number] 06:01:28* Test Item Value Reference Range Interpretation Comme nts Blood Culture-Aerobic (test code = 83274-3) No organisms isolated No growth Previous preliminary verified result was Culture In Progress on 03/05/2023 at 0301 CSTPrevious preliminary verified result was No growth at 24 hours on 03/06/2023 at 0001 CSTPrevious preliminary verified result was No growth at 48 hours on 03/07/2023 at 0001 CSTPrevious preliminary verified result was No growth at 72 hours on 03/08/2023 at 0001 [employer] Blood Culture-Anaerobic (test code = 96588-4) No organisms isolated No growth Previous preliminary verified result was Culture In Progress on 03/05/2023 at 0301 CSTPrevious preliminary verified result was No growth at 24 hours on 03/06/2023 at 0001 CSTPrevious preliminary verified result was No growth at 48 hours on 03/07/2023 at 0001 CSTPrevious preliminary verified result was No growth at 72 hours on 03/08/2023 at 0001 [employer] Lab Interpretation (test code = 03243-9) Normal [facility]IC METABOLIC PANEL (NA, K, CL, CO2, GLUCOSE, BUN, CREATININE, CA)2023-03-04 20:17:39* Test Item Value Reference Range Interpretation Comme nts NA (test code = 7374553133) 138 mmol/L 135-145 K (test code = 3259586070) 3.7 mmol/L 3.5-5.0 CL (test code = 2552234273) 102 mmol/L 98-108 CO2 TOTAL (test code = 6976488554) 24 mmol/L 23-31 AGAP (test code = 6930466574) 12 2-16 BUN (test code = 7619600792) 32 mg/dL 7-23 H GLUCOSE (test code = 1126033658) 98 mg/dL 70-110 CREATININE (test code = 6547398836) 4.86 mg/dL 0.60-1.25 H CALCIUM (test code = 7629413653) 9.8 mg/dL 8.6-10.6 eGFR (test code = 88673-2) 13.2 mL/min/1.73m2 CKD-EPI eGFR (2020). Assuming creatinine has been stable day-to-day for at least three months, the eGFR indicates Category G5 (<= 14mL/min/1.73 m2) Lab Interpretation (test code = 23271-9) Abnormal [facility] DallasType and Screen - ONCE [id number] 19:37:00* Test Item Value Reference Range Interpretation Comme nts ABO & RH (test code = 20) O POSITIVE IAT (test code = 1185) Negative [facility] DallasTroponin [id number] 19:23:11* Test Item Value Reference Range Interpretation Comme nts TROPONIN I (test code = 1420652109) 0.009 ng/mL <=0.034 BOBBY (test code = [...] of biotin. Lab Interpretation (test code = 53929-8) Normal [facility] DallasProthrombin Time / [id number] 19:05:07* Test Item Value Reference Range Interpretation Comme nts PROTIME PATIENT (test code = 5964-2) 13.9 See_Comment H [Automated [employer]] The system which generated this result transmitted reference range: 10.1 - 12.6 Seconds. The reference range was not used to interpret this result as normal/abnormal. INR (test code = 6301-6) 1.2 Normal INR <1.1; Warfarin Therapeutic range 2.0 to 3.0 or 2.5 to 3.5, depending upon the indications. Lab Interpretation (test code = 04535-7) Abnormal [facility] DallasaPTT2023-11-10 19:05:07* Test Item Value Reference Range Interpretation Comme [facility] APTT Patient (test code = 3173-2) 36 See_Comment [Automated messa ge] The system which generated this result transmitted reference range: 26 - 36 Seconds. The reference range was not used to interpret this result as normal/abnormal. Lab Interpretation (test code = 57110-2) Normal [facility] DallasProfile / [id number] 18:56:44* Test Item Value Reference Range Interpretation [...] result as normal/abnormal. MPV (test code = 21536-2) 9.3 fL 9.8-13.0 L RDW-CV (test code = 788-0) 22.1 % 12.1-15.4 H RDW-SD (test code = 37772-0) 73.0 fL 38.5-51.6 H NRBC x10^3 (test code = 5368980028) See_Comment [Automated messa ge] The system which generated this result transmitted reference range: 10*3/?L. The reference range was not used to interpret this result as normal/abnormal. NRBC/100 WBC (test code = 6472108393) 0.0 See_Comment [Automated messa ge] The system which generated this result transmitted reference range: 0.0 - 10.0 /100 WBCs. The reference range was not used to interpret this result as normal/abnormal. IPF % (test code = 5454266234) Lab Interpretation (test code = 63568-3) Abnormal [facility] GLUCOSE (AUTOMATED)2023-03-04 18:44:21* Test Item Value Reference Range Interpretation Comme nts POCT GLU (test code = 8700330032) 101 mg/dL 70-110 Lab Interpretation (test cod e = 90883-0) Normal [facility] CULTURE [id number] 01:01:26* Test Item Value Reference Range Interpretation Comme nts Blood Culture-Aerobic (test code = 26176-5) No organisms isolated No growth Previous preliminary verified result was Culture In Progress on 02/25/2023 at 2301 CDTPrevious preliminary verified result was No growth at 24 hours on 02/26/2023 at 2000 CDTPrevious preliminary verified result was No growth at 48 hours on 02/27/2023 at 1901 CSTPrevious preliminary verified result was No growth at 72 hours on 02/28/2023 at 1901 [employer] Blood Culture-Anaerobic (test code = 83613-2) No organisms isolated No growth Previous preliminary verified result was Culture In Progress on 02/25/2023 at 2301 CDTPrevious preliminary verified result was No growth at 24 hours on 02/26/2023 at 2000 CDTPrevious preliminary verified result was No growth at 48 hours on 02/27/2023 at 1901 CSTPrevious preliminary verified result was No growth at 72 hours on 02/28/2023 at 1901 [employer] Lab Interpretation (test code = 50511-1) Normal [facility] CULTURE [id number] 01:01:26* Test Item Value Reference Range Interpretation Comme nts Blood Culture-Aerobic (test code = 35509-4) No organisms isolated No growth Previous preliminary verified result was Culture In Progress on 02/25/2023 at 2301 CDTPrevious preliminary verified result was No growth at 24 hours on 02/26/2023 at 2000 CDTPrevious preliminary verified result was No growth at 48 hours on 02/27/2023 at 1901 CSTPrevious preliminary verified result was No growth at 72 hours on 02/28/2023 at 1901 [employer] Blood Culture-Anaerobic (test code = 26377-4) No organisms isolated No growth Previous preliminary verified result was Culture In Progress on 02/25/2023 at 2301 CDTPrevious preliminary verified result was No growth at 24 hours on 02/26/2023 at 2000 CDTPrevious preliminary verified result was No growth at 48 hours on 02/27/2023 at 1901 CSTPrevious preliminary verified result was No growth at 72 hours on 02/28/2023 at 1901 [employer] Lab Interpretation (test code = 58994-8) Normal [facility] DallasBL[facility]OD CULTURE [id number] 01:01:26* Test Item Value Reference Range Interpretation Comme nts Blood Culture-Aerobic (test code = 30219-7) No organisms isolated No growth Previous preliminary verified result was Culture In Progress on 02/25/2023 at 2301 CDTPrevious preliminary verified result was No growth at 24 hours on 02/26/2023 at 2000 CDTPrevious preliminary verified result was No growth at 48 hours on 02/27/2023 at 1901 CSTPrevious preliminary verified result was No growth at 72 hours on 02/28/2023 at 1901 [employer] Blood Culture-Anaerobic (test code = 09931-6) No organisms isolated No growth Previous preliminary verified result was Culture In Progress on 02/25/2023 at 2301 CDTPrevious preliminary verified result was No growth at 24 hours on 02/26/2023 at 2000 CDTPrevious preliminary verified result was No growth at 48 hours on 02/27/2023 at 1901 CSTPrevious preliminary verified result was No growth at 72 hours on 02/28/2023 at 1901 [employer] Lab Interpretation (test code = 23770-0) Normal [facility] DallasPROTHROMBIN TIME / [id number] 19:51:25* Test Item Value Reference Range Interpretation [...] the indications. Lab Interpretation (test code = 17109-7) Abnormal [facility] DallasPROTHROMBIN TIME / [id number] 19:51:25* Test Item Value Reference Range Interpretation [...] the indications. Lab Interpretation (test code = 30334-3) Abnormal [facility] DallasCBC WITHOUT [id number] 23:28:46* Test Item Value Reference Range Interpretation [...] result as normal/abnormal. MPV (test code = 86627-7) 11.0 fL 9.8-13.0 RDW-CV (test code = 788-0) 21.8 % 12.1-15.4 H RDW-SD (test code = 47366-4) 66.4 fL 38.5-51.6 H NRBC x10^3 (test code = 0009293829) See_Comment [Automated messa ge] The system which generated this result transmitted reference range: 10*3/?L. The reference range was not used to interpret this result as normal/abnormal. NRBC/100 WBC (test code = 6454818192) 0.0 See_Comment [Automated messa ge] The system which generated this result transmitted reference range: 0.0 - 10.0 /100 WBCs. The reference range was not used to interpret this result as normal/abnormal. IPF % (test code = 3388870935) Lab Interpretation (test code = 67718-2) Abnormal [facility] WITHOUT [id number] 23:28:46* Test Item Value Reference Range Interpretation [...] result as normal/abnormal. MPV (test code = 14331-0) 11.0 fL 9.8-13.0 RDW-CV (test code = 788-0) 21.8 % 12.1-15.4 H RDW-SD (test code = 48025-3) 66.4 fL 38.5-51.6 H NRBC x10^3 (test code = 1839164117) See_Comment [Automated messa ge] The system which generated this result transmitted reference range: 10*3/?L. The reference range was not used to interpret this result as normal/abnormal. NRBC/100 WBC (test code = 8988668465) 0.0 See_Comment [Automated messa ge] The system which generated this result transmitted reference range: 0.0 - 10.0 /100 WBCs. The reference range was not used to interpret this result as normal/abnormal. IPF % (test code = 6132187304) Lab Interpretation (test code = 15193-2) Abnormal [facility] Packed RBC (in units), 1 Units 2023-03-01 14:31:00* Test Item Value Reference Range Interpretation Comme nts Cross Match Result (test code = 4409) Compatible ISBT Blood Type Code (test code = 868406) 5100 Unit Blood Type (test code = 4410) O Pos Unit Number (test code = 4411) [id number] Blood Expiration Date & Time (test code = 090700) [id number] Status Information (test code = 4412) Issued Product Identification (test code = 4413) Red Blood Cells Product Code (test code = 4414) [id number] Performed at [facility] B Laboratory Services - [facility] Blood [address] [address]Yiel Free: [phone] No. [id number] [facility] Packed RBC (in units), 1 Units 2023-03-01 14:31:00* Test Item Value Reference Range Interpretation Comme nts Cross Match Result (test code = 4409) Compatible ISBT Blood Type Code (test code = 008259) 5100 Unit Blood Type (test code = 4410) O Pos Unit Number (test code = 4411) [id number] Blood Expiration Date & Time (test code = 182748) [id number] Status Information (test code = 4412) Issued Product Identification (test code = 4413) Red Blood Cells Product Code (test code = 4414) [id number] Performed at [address] [address]Kvlp Free: [phone] No. [id number] [facility] [id number] 12:12:59* Test Item Value Reference Range Interpretation Comme nts SPUTUM CULTURE (test code = 622-1) Specimen cellular elements do not represent lower respiratory tract. Specimen rejected for routine bacterial culture. Suggest reorder and recollection. Gram stain (test code = 664-3) Numerous Epithelial cells [facility] [id number] 12:12:59* Test Item Value Reference Range Interpretation Comme nts SPUTUM CULTURE (test code = 622-1) Specimen cellular elements do not represent lower respiratory tract. Specimen rejected for routine bacterial culture. Suggest reorder and recollection. Gram stain (test code = 664-3) Numerous Epithelial cells [facility] Packed RBC (in units), 1 Units 2023-02-27 21:19:05* Test Item Value Reference Range Interpretation Comme nts Cross Match Result (test code = 4409) Compatible ISBT Blood Type Code (test code = 132424) 5100 Unit Blood Type (test code = 4410) O Pos Unit Number (test code = 4411) [id number] Blood Expiration Date & Time (test code = 404793) [id number] Status Information (test code = 4412) Issued Product Identification (test code = 4413) Red Blood Cells Product Code (test code = 4414) [id number] Performed at [facility] Laboratory [facility] Blood [place] [address]Toll Free: [phone] No. [id number] [facility] DallasAC Panel 20 + Lactic [id number] 04:29:10* Test Item Value Reference Range Interpretation Comme nts PH (test code = 2) 7.41 7.35-7.45 PCO2 (test code = 4965392294) 33 See_Comment L [Automated messa ge] The system which generated this result transmitted reference range: 35 - 45 mmHg. The reference range was not used to interpret this result as normal/abnormal. PO2 (test code = 9995181186) 77 See_Comment L [Automated messa ge] The system which generated this result transmitted reference range: 80 - 100 mmHg. The reference range was not used to interpret this result as normal/abnormal. HCO3 (test code = 4683342915) 20 See_Comment L [Automated messa ge] The system which generated this result transmitted reference range: 22 - 26 mEq/L. The reference range was not used to interpret this result as normal/abnormal. BE (test code = 6903086812) -3.2 See_Comment L [Automated messa ge] The system which generated this result transmitted reference range: -3.0 - 3.0 mEq/L. The reference range was not used to interpret this result as normal/abnormal. THB (test code = 7697651698) 12.6 g/dL 13.5-18.0 L %O2HB (test code = 5160742411) 93.5 % 94.0-99.0 L %COHB ART (test code = 7447984378) 0.8 % 0.0-1.5 %METHB ART (test code = 2104602532) 0.4 % 0.4-1.5 VOL%O2 ART (test code = 4926933136) 16.6 % 15.0-23.0 NA (test code = 1086909590) 136 mmol/L 135-145 K+ (test code = 6098161739) 3.8 mmol/L 3.5-5.0 AC CA IONZ (test code = 3902138255) 4.50 mg/dL 4.50-5.30 GLUCOSE (test code = 0192712584) 110 mg/dL 70-110 LACTIC ACID (test code = 9816244328) 1.84 mmol/L 0.50-2.20 Lab Interpretation (test code = 99919-0) Abnormal [facility] DallasAC Panel 20 + Lactic [id number] 04:29:10* Test Item Value Reference Range Interpretation Comme nts PH (test code = 2) 7.41 7.35-7.45 PCO2 (test code = 5163739810) 33 See_Comment L [Automated messa ge] The system which generated this result transmitted reference range: 35 - 45 mmHg. The reference range was not used to interpret this result as normal/abnormal. PO2 (test code = 4451519344) 77 See_Comment L [Automated messa ge] The system which generated this result transmitted reference range: 80 - 100 mmHg. The reference range was not used to interpret this result as normal/abnormal. HCO3 (test code = 6187638884) 20 See_Comment L [Automated messa ge] The system which generated this result transmitted reference range: 22 - 26 mEq/L. The reference range was not used to interpret this result as normal/abnormal. BE (test code = 9542561858) -3.2 See_Comment L [Automated messa ge] The system which generated this result transmitted reference range: -3.0 - 3.0 mEq/L. The reference range was not used to interpret this result as normal/abnormal. THB (test code = 5362931436) 12.6 g/dL 13.5-18.0 L %O2HB (test code = 4894919624) 93.5 % 94.0-99.0 L %COHB ART (test code = 2879442870) 0.8 % 0.0-1.5 %METHB ART (test code = 5392608443) 0.4 % 0.4-1.5 VOL%O2 ART (test code = 3137166157) 16.6 % 15.0-23.0 NA (test code = 4072485059) 136 mmol/L 135-145 K+ (test code = 8238721422) 3.8 mmol/L 3.5-5.0 AC CA IONZ (test code = 2662803249) 4.50 mg/dL 4.50-5.30 GLUCOSE (test code = 6763093709) 110 mg/dL 70-110 LACTIC ACID (test code = 6828116505) 1.84 mmol/L 0.50-2.20 Lab Interpretation (test code = 01889-6) Abnormal General acute hospital WITH [id number] 12:03:47* Test Item Value Reference Range Interpretation [...] 32.5 g/dL 31.2-35.0 RDW-SD (test code = 81146-9) 66.4 fL 38.5-51.6 H RDW-CV (test code = 788-0) 19.5 % 12.1-15.4 H PLT (test code = 777-3) 37 See_Comment LL [Automated messa ge] The system which generated this result transmitted reference range: 150 - 328 10*3/?L. The reference range was not used to interpret this result as normal/abnormal. MPV (test code = 15262-8) Not Measured IPF % (test code = 8529539497) 13.6 % 1.2-10.7 H Platelet count measured by fluorescence method. NRBC/100 WBC (test code = 4971834090) 0.1 See_Comment [Automated [employer]] The system which generated this result transmitted reference range: 0.0 - 10.0 /100 WBCs. The reference range was not used to interpret this result as normal/abnormal. NRBC x10^3 (test code = 9454437050) 0.02 See_Comment [Automated messa ge] The system which generated this result transmitted reference range: 10*3/?L. The reference range was not used to interpret this result as normal/abnormal. GRAN MAT (NEUT) % (test code = 770-8) 64.8 % IMM GRAN % (test code = 8293291785) 1.70 % LYMPH % (test code = 736-9) 13.8 % MONO % (test code = 5905-5) 13.1 % EOS % (test code = 713-8) 6.4 % BASO % (test code = 706-2) 0.2 % GRAN MAT x10^3(ANC) (test code = 9775478808) 10.52 10*3/uL 1.99-6.95 H IMM GRAN x10^3 (test code = 6006516146) 0.27 10*3/uL 0.00-0.06 H LYMPH x10^3 (test code = 731-0) 2.24 10*3/uL 1.09-3.23 MONO x10^3 (test code = 742-7) 2.12 10*3/uL 0.36-1.02 H EOS x10^3 (test code = 711-2) 1.04 10*3/uL 0.06-0.53 H BASO x10^3 (test code = 704-7) 0.04 10*3/uL 0.01-0.09 Lab Interpretation (test code = 89486-2) Abnormal [facility] DallasMAGNESIUM2023-11-04 11:57:16* Test Item Value Reference Range Interpretation Comme nts MAGNESIUM (test code = 5654384261) 2.6 mg/dL 1.7-2.4 H Lab Interpretation (test cod e = 81823-3) Abnormal [facility] DallasCOMP. METABOLIC PANEL (23304)2023-02-26 11:57:15* Test Item Value Reference Range Interpretation Comme nts NA (test code = 9222303225) 138 mmol/L 135-145 K (test code = 5815969967) 3.6 mmol/L 3.5-5.0 CL (test code = 7675212070) 104 mmol/L 98-108 CO2 TOTAL (test code = 7253265153) 24 mmol/L 23-31 AGAP (test code = 6366119069) 10 2-16 BUN (test code = 9699012654) 13 mg/dL 7-23 GLUCOSE (test code = 7140623596) 111 mg/dL 70-110 H CREATININE (test code = 8268797521) 2.58 mg/dL 0.60-1.25 H TOTAL BILI (test code = 3596149658) 2.7 mg/dL 0.1-1.1 H CALCIUM (test code = 7229556558) 8.4 mg/dL 8.6-10.6 L T PROTEIN (test code = 7831135178) 6.8 g/dL 6.3-8.2 ALBUMIN (test code = 9801003603) 4.1 g/dL 3.5-5.0 ALK PHOS (test code = 6173658259) 193 U/L 34-122 H ALTv (test code = 1742-6) 39 U/L 5-50 AST(SGOT) (test code = 6182446383) 206 U/L 13-40 H eGFR (test code = 42903-0) 28.3 mL/min/1.73m2 CKD-EPI eGFR (2020). Assuming creatinine has been stable day-to-day for at least three months, the eGFR indicates Category G4 (15 - 29 mL/min/1.73 m2) Lab Interpretation (test code = 16118-8) Abnormal General acute hospital WITHOUT [id number] 00:14:22* Test Item Value Reference Range Interpretation [...] result as normal/abnormal. MPV (test code = 33657-8) 11.5 fL 9.8-13.0 RDW-CV (test code = 788-0) 19.5 % 12.1-15.4 H RDW-SD (test code = 50023-1) 66.5 fL 38.5-51.6 H NRBC x10^3 (test code = 9440297759) See_Comment [Automated messa ge] The system which generated this result transmitted reference range: 10*3/?L. The reference range was not used to interpret this result as normal/abnormal. NRBC/100 WBC (test code = 2057328507) 0.0 See_Comment [Automated messa ge] The system which generated this result transmitted reference range: 0.0 - 10.0 /100 WBCs. The reference range was not used to interpret this result as normal/abnormal. IPF % (test code = 8679245849) 12.8 % 1.2-10.7 H Platelet count measured by fluorescence method. Lab Interpretation (test code = 83521-0) [facility]23-[facility]-25 16:11:31* Test Item Value Reference Range Interpretation Comme nts PH (test code = 2) 7.45 7.35-7.45 PCO2 (test code = 4663431439) 34 See_Comment L [Automated messa ge] The system which generated this result transmitted reference range: 35 - 45 mmHg. The reference range was not used to interpret this result as normal/abnormal. PO2 (test code = 9416360261) 384 See_Comment H QUES [Automated message] The system which generated this result transmitted reference range: 80 - 100 mmHg. The reference range was not used to interpret this result as normal/abnormal. HCO3 (test code = 9753924425) 23 See_Comment [Automated messa ge] The system which generated this result transmitted reference range: 22 - 26 mEq/L. The reference range was not used to interpret this result as normal/abnormal. BE (test code = 9715348499) -1.1 See_Comment [Automated messa ge] The system which generated this result transmitted reference range: -3.0 - 3.0 mEq/L. The reference range was not used to interpret this result as normal/abnormal. Lab Interpretation (test code = 68330-6) Abnormal [facility] Arterial Blood Gas.2023-02-25 16:11:31* Test Item Value Reference Range Interpretation Comme nts PH (test code = 2) 7.45 7.35-7.45 PCO2 (test code = 5744834790) 34 See_Comment L [Automated messa ge] The system which generated this result transmitted reference range: 35 - 45 mmHg. The reference range was not used to interpret this result as normal/abnormal. PO2 (test code = 3703605197) 384 See_Comment H QUES [Automated message] The system which generated this result transmitted reference range: 80 - 100 mmHg. The reference range was not used to interpret this result as normal/abnormal. HCO3 (test code = 6932188339) 23 See_Comment [Automated messa ge] The system which generated this result transmitted reference range: 22 - 26 mEq/L. The reference range was not used to interpret this result as normal/abnormal. BE (test code = 2540030076) -1.1 See_Comment [Automated messa ge] The system which generated this result transmitted reference range: -3.0 - 3.0 mEq/L. The reference range was not used to interpret this result as normal/abnormal. Lab Interpretation (test code = 21313-3) Abnormal [facility] WITH [id number] 11:40:01* Test Item Value Reference Range Interpretation [...] 32.7 g/dL 31.2-35.0 RDW-SD (test code = 23567-5) 67.8 fL 38.5-51.6 H RDW-CV (test code = 788-0) 19.4 % 12.1-15.4 H PLT (test code = 777-3) 46 See_Comment LL [Automated messa ge] The system which generated this result transmitted reference range: 150 - 328 10*3/?L. The reference range was not used to interpret this result as normal/abnormal. MPV (test code = 45921-0) 11.3 fL 9.8-13.0 IPF % (test code = 8288998790) 8.9 % 1.2-10.7 Platelet count measured by fluorescence method. NRBC/100 WBC (test code = 3255188071) 0.0 See_Comment [Automated [employer]age] The system which generated this result transmitted reference range: 0.0 - 10.0 /100 WBCs. The reference range was not used to interpret this result as normal/abnormal. NRBC x10^3 (test code = 1217782423) See_Comment [Automated messa ge] The system which generated this result transmitted reference range: 10*3/?L. The reference range was not used to interpret this result as normal/abnormal. GRAN MAT (NEUT) % (test code = 770-8) 75.9 % IMM GRAN % (test code = 5049004803) 1.00 % LYMPH % (test code = 736-9) 8.4 % MONO % (test code = 5905-5) 9.3 % EOS % (test code = 713-8) 5.1 % BASO % (test code = 706-2) 0.3 % GRAN MAT x10^3(ANC) (test code = 2094199368) 11.06 10*3/uL 1.99-6.95 H IMM GRAN x10^3 (test code = 4180917121) 0.15 10*3/uL 0.00-0.06 H LYMPH x10^3 (test code = 731-0) 1.22 10*3/uL 1.09-3.23 MONO x10^3 (test code = 742-7) 1.36 10*3/uL 0.36-1.02 H EOS x10^3 (test code = 711-2) 0.74 10*3/uL 0.06-0.53 H BASO x10^3 (test code = 704-7) 0.05 10*3/uL 0.01-0.09 Lab Interpretation (test code = 17052-2) [facility]normal [facility] 11:03:46* Test Item Value Reference Range Interpretation Comme nts MAGNESIUM (test code = 3518117352) 2.5 mg/dL 1.7-2.4 H Lab Interpretation (test cod e = 60205-3) [facility]normal [facility]OLIC PAN[facility] (72200)2023-02-25 11:03:46* Test Item Value Reference Range Interpretation Comme nts NA (test code = 9076222068) 137 mmol/L 135-145 K (test code = 8512872016) 4.1 mmol/L 3.5-5.0 CL (test code = 5837169437) 104 mmol/L 98-108 CO2 TOTAL (test code = 6753650752) 20 mmol/L 23-31 L AGAP (test code = 4408342067) 13 2-16 BUN (test code = 9781776423) 24 mg/dL 7-23 H GLUCOSE (test code = 1258559082) 110 mg/dL 70-110 CREATININE (test code = 5461769843) 5.26 mg/dL 0.60-1.25 H TOTAL BILI (test code = 6019421260) 2.2 mg/dL 0.1-1.1 H CALCIUM (test code = 1555441182) 8.4 mg/dL 8.6-10.6 L T PROTEIN (test code = 6637137224) 6.6 g/dL 6.3-8.2 ALBUMIN (test code = 1345585453) 3.8 g/dL 3.5-5.0 ALK PHOS (test code = 5990438673) 214 U/L 34-122 H ALTv (test code = 1742-6) 45 U/L 5-50 AST(SGOT) (test code = 9904498323) 218 U/L 13-40 H eGFR (test code = 68021-0) 12.0 mL/min/1.73m2 CKD-EPI eGFR (2020). Assuming creatinine has been stable day-to-day for at least three months, the eGFR indicates Category G5 (<= 14mL/min/1.73 m2) Lab Interpretation (test code = 26857-6) [facility]2023-[facility]-03 11:03:46* Test Item Value Reference Range Interpretation Comme nts PHOSPHORUS (test code = 7259394293) 2.9 mg/dL 2.5-5.0 Lab Interpretation (test cod e = 64141-8) Normal [facility] (NA, K, CL, CO2, GLUCOSE, BUN, CREATININE, CA)2023-02-24 18:45:30* Test Item Value Reference Range Interpretation Comme nts NA (test code = 1607098640) 136 mmol/L 135-145 K (test code = 5826257276) 4.0 mmol/L 3.5-5.0 CL (test code = 3773261643) 102 mmol/L 98-108 CO2 TOTAL (test code = 4208779024) 19 mmol/L 23-31 L AGAP (test code = 2957815332) 15 2-16 BUN (test code = 9384035241) 32 mg/dL 7-23 H GLUCOSE (test code = 2725097994) 106 mg/dL 70-110 CREATININE (test code = 4471512923) 7.57 mg/dL 0.60-1.25 H CALCIUM (test code = 0622088527) 8.7 mg/dL 8.6-10.6 eGFR (test code = 80554-3) 7.8 mL/min/1.73m2 CKD-EPI eGFR (2020). Assuming creatinine has been stable day-to-day for at least three months, the eGFR indicates Category G5 (<= 14mL/min/1.73 m2) Lab Interpretation (test code = 66736-6) Abnormal [facility] [id number] 11:01:20* Test Item Value Reference Range Interpretation Comme [facility] Blood Culture-Aerobic (test code = 53985-4) No organisms isolated No growth Previous preliminary verified result was Culture In Progress on 02/19/[address] [place], [place] [address]TPrevious preliminary verified result was No growth at 24 hours on 02/20/[address] [place], [place] [address]TPrevious preliminary verified result was No growth at 48 hours on 02/21/[address] [place], [place] [address]TPrevious preliminary verified result was No growth at 72 hours on 02/22/[address] [place] [address] Blood Culture-Anaerobic (test code = 81815-5) No organisms isolated No growth Previous preliminary verified result was Culture In Progress on 02/19/2023 at [facility] CDTPrevious preliminary verified result was No growth at 24 hours on 02/20/2023 at [facility] CDTPrevious preliminary verified result was No growth at 48 hours on 02/21/[address] [place], [place] [address]TPrevious preliminary verified result was No growth at 72 hours on 02/22/[address] [place], [place] [address]T Lab Interpretation (test code = 92027-0) Normal [facility] acute hospital WITH [id number] 10:50:27* Test Item Value Reference Range Interpretation Comme [facility] WBC (test code = 6690-2) 9.03 See_Comment [...] 33.5 g/dL 31.2-35.0 RDW-SD (test code = 76662-3) 66.4 fL 38.5-51.6 H RDW-CV (test code = 788-0) 19.7 % 12.1-15.4 H PLT (test code = 777-3) 42 See_Comment LL [Automated [employer]] The system which generated this result transmitted reference range: 150 - 328 10*3/?L. The reference range was not used to interpret this result as normal/abnormal. MPV (test code = 82430-3) 10.3 fL 9.8-13.0 IPF % (test code = 8700926852) 8.1 % 1.2-10.7 Platelet count measured by fluorescence method. NRBC/100 WBC (test code = 3328341196) 0.0 See_Comment [Automated [employer] ssage] The system which generated this result transmitted reference range: 0.0 - 10.0 /100 WBCs. The reference range was not used to interpret this result as normal/abnormal. NRBC x10^3 (test code = 3533414256) See_Comment [Automated [employer]] The system which generated this result transmitted reference range: 10*3/?L. The reference range was not used to interpret this result as normal/abnormal. GRAN MAT (NEUT) % (test code = 770-8) 66.1 % IMM GRAN % (test code = 9379580274) 0.80 % LYMPH % (test code = 736-9) 13.2 % MONO % (test code = 5905-5) 10.2 % EOS % (test code = 713-8) 9.3 % BASO % (test code = 706-2) 0.4 % GRAN MAT x10^3(ANC) (test code = 8749036831) 5.97 10*3/uL 1.99-6.95 IMM GRAN x10^3 (test code = 4119349931) 0.07 10*3/uL 0.00-0.06 H LYMPH x10^3 (test code = 731-0) 1.19 10*3/uL 1.09-3.23 MONO x10^3 (test code = 742-7) 0.92 10*3/uL 0.36-1.02 EOS x10^3 (test code = 711-2) 0.84 10*3/uL 0.06-0.53 H BASO x10^3 (test code = 704-7) 0.04 10*3/uL 0.01-0.09 Lab Interpretation (test code = 97884-8) [facility]normal [facility]2023-[facility]-02 10:30:39* Test Item Value Reference Range Interpretation Comme nts MAGNESIUM (test code = 5566862229) 2.6 mg/dL 1.7-2.4 H Lab Interpretation (test cod e = 74686-1) [facility]normal [facility]OLIC [facility] (00427)2023-02-24 10:30:39* Test Item Value Reference Range Interpretation Comme nts NA (test code = 4687094378) 135 mmol/L 135-145 K (test code = 7574616437) 4.2 mmol/L 3.5-5.0 CL (test code = 5655928782) 102 mmol/L 98-108 CO2 TOTAL (test code = 6371371272) 19 mmol/L 23-31 L AGAP (test code = 4409213327) 14 2-16 BUN (test code = 9607983473) 31 mg/dL 7-23 H GLUCOSE (test code = 0597049205) 110 mg/dL 70-110 CREATININE (test code = 1618659999) 7.39 mg/dL 0.60-1.25 H TOTAL BILI (test code = 1635094231) 2.2 mg/dL 0.1-1.1 H CALCIUM (test code = 0687824531) 9.1 mg/dL 8.6-10.6 T PROTEIN (test code = 6357458708) 7.0 g/dL 6.3-8.2 ALBUMIN (test code = 6456292934) 4.1 g/dL 3.5-5.0 ALK PHOS (test code = 0810091239) 218 U/L 34-122 H ALTv (test code = 1742-6) 53 U/L 5-50 H AST(SGOT) (test code = 7612839232) 242 U/L 13-40 H eGFR (test code = 37297-6) 8.0 mL/min/1.73m2 CKD-EPI eGFR (2020). Assuming creatinine has been stable day-to-day for at least three months, the eGFR indicates Category G5 (<= 14mL/min/1.73 m2) Lab Interpretation (test code = 81363-3) [facility]normal [facility]2023-[facility]-02 10:30:39* Test Item Value Reference Range Interpretation Comme nts PHOSPHORUS (test code = 8852385821) 3.6 mg/dL 2.5-5.0 Lab Interpretation (test cod e = 78862-6) Normal [facility] (NA, K, CL, CO2, GLUCOSE, BUN, CREATININE, CA)2023-02-24 10:30:39* Test Item Value Reference Range Interpretation Comme nts NA (test code = 0502731231) 135 mmol/L 135-145 K (test code = 5399330440) 4.2 mmol/L 3.5-5.0 CL (test code = 2070983414) 102 mmol/L 98-108 CO2 TOTAL (test code = 4702440486) 19 mmol/L 23-31 L AGAP (test code = 8920730354) 14 2-16 BUN (test code = 7628061150) 31 mg/dL 7-23 H GLUCOSE (test code = 6548298139) 110 mg/dL 70-110 CREATININE (test code = 3156873449) 7.39 mg/dL 0.60-1.25 H CALCIUM (test code = 1088409540) 9.1 mg/dL 8.6-10.6 eGFR (test code = 01837-7) 8.0 mL/min/1.73m2 CKD-EPI eGFR (2020). Assuming creatinine has been stable day-to-day for at least three months, the eGFR indicates Category G5 (<= 14mL/min/1.73 m2)CKD-EPI eGFR (2020). Assuming creatinine has been stable day-to-day for at least three months, the eGFR indicates Category G5 (<= 14mL/min/1.73 m2) Lab Interpretation (test code = 86721-2) Abnormal [facility] Panel 20 + Lactic [id number] 21:58:55* Test Item Value Reference Range Interpretation Comme nts PH (test code = 2) 7.47 7.35-7.45 H PCO2 (test code = 8783946106) 30 See_Comment L [Automated messa ge] The system which generated this result transmitted reference range: 35 - 45 mmHg. The reference range was not used to interpret this result as normal/abnormal. PO2 (test code = 3654214034) 96 See_Comment [Automated messa ge] The system which generated this result transmitted reference range: 80 - 100 mmHg. The reference range was not used to interpret this result as normal/abnormal. HCO3 (test code = 0803995484) 21 See_Comment L [Automated messa ge] The system which generated this result transmitted reference range: 22 - 26 mEq/L. The reference range was not used to interpret this result as normal/abnormal. BE (test code = 0437509646) -2.1 See_Comment [Automated messa ge] The system which generated this result transmitted reference range: -3.0 - 3.0 mEq/L. The reference range was not used to interpret this result as normal/abnormal. THB (test code = 1871493463) 10.5 g/dL 13.5-18.0 L %O2HB (test code = 1750409090) 97.4 % 94.0-99.0 %COHB ART (test code = 2072747484) 0.3 % 0.0-1.5 %METHB ART (test code = 8721267465) 0.0 % 0.4-1.5 L VOL%O2 ART (test code = 4706057785) 14.5 % 15.0-23.0 L NA (test code = 5734579637) 131 mmol/L 135-145 L K+ (test code = 3609564780) 3.9 mmol/L 3.5-5.0 AC CA IONZ (test code = 0469640404) 4.50 mg/dL 4.50-5.30 GLUCOSE (test code = 1790022956) 100 mg/dL 70-110 LACTIC ACID (test code = 6217566086) 1.70 mmol/L 0.50-2.20 QUES Lab Interpretation (test code = 95253-5) [facility]normal [facility] 20 + Lactic [id number] 16:28:05* Test Item Value Reference Range Interpretation Comme nts PH (test code = 2) 7.53 7.35-7.45 H PCO2 (test code = 0200013803) 26 See_Comment L [Automated messa ge] The system which generated this result transmitted reference range: 35 - 45 mmHg. The reference range was not used to interpret this result as normal/abnormal. PO2 (test code = 3612433786) 87 See_Comment [Automated messa ge] The system which generated this result transmitted reference range: 80 - 100 mmHg. The reference range was not used to interpret this result as normal/abnormal. HCO3 (test code = 8637285246) 21 See_Comment L [Automated messa ge] The system which generated this result transmitted reference range: 22 - 26 mEq/L. The reference range was not used to interpret this result as normal/abnormal. BE (test code = 1059861314) -0.9 See_Comment [Automated messa ge] The system which generated this result transmitted reference range: -3.0 - 3.0 mEq/L. The reference range was not used to interpret this result as normal/abnormal. THB (test code = 9889274395) 10.0 g/dL 13.5-18.0 L %O2HB (test code = 4335944469) 97.2 % 94.0-99.0 %COHB ART (test code = 3078256329) 0.3 % 0.0-1.5 %METHB ART (test code = 1677638900) 0.1 % 0.4-1.5 L VOL%O2 ART (test code = 5230971088) 13.8 % 15.0-23.0 L NA (test code = 7740339427) 129 mmol/L 135-145 L K+ (test code = 2862865575) 3.8 mmol/L 3.5-5.0 AC CA IONZ (test code = 3021012290) 4.20 mg/dL 4.50-5.30 L GLUCOSE (test code = 3133624965) 101 mg/dL 70-110 LACTIC ACID (test code = 8641551699) 1.62 mmol/L 0.50-2.20 Lab Interpretation (test code = 99022-4) [facility]normal [facility]2023-[facility]-31 10:54:26* Test Item Value Reference Range Interpretation Comme nts MAGNESIUM (test code = 8476631963) 2.2 mg/dL 1.7-2.4 Lab Interpretation (test cod e = 43851-4) Normal [facility]OL[facility] (36013)2023-02-22 10:54:25* Test Item Value Reference Range Interpretation Comme nts NA (test code = 1708142327) 130 mmol/L 135-145 L K (test code = 6938722750) 3.8 mmol/L 3.5-5.0 CL (test code = 4388809345) 99 mmol/L 98-108 CO2 TOTAL (test code = 7656288507) 20 mmol/L 23-31 L AGAP (test code = 1799377999) 11 2-16 BUN (test code = 2463577328) 17 mg/dL 7-23 GLUCOSE (test code = 5949005308) 107 mg/dL 70-110 CREATININE (test code = 7996007833) 3.96 mg/dL 0.60-1.25 H TOTAL BILI (test code = 8713823076) 2.5 mg/dL 0.1-1.1 H CALCIUM (test code = 1012458652) 7.8 mg/dL 8.6-10.6 L T PROTEIN (test code = 5869750380) 6.7 g/dL 6.3-8.2 ALBUMIN (test code = 4968434235) 3.5 g/dL 3.5-5.0 ALK PHOS (test code = 2458653272) 332 U/L 34-122 H ALTv (test code = 1742-6) 73 U/L 5-50 H AST(SGOT) (test code = 2457878440) 405 U/L 13-40 H eGFR (test code = 14277-7) 16.9 mL/min/1.73m2 CKD-EPI eGFR (2020). Assuming creatinine has been stable day-to-day for at least three months, the eGFR indicates Category G4 (15 - 29 mL/min/1.73 m2) Lab Interpretation (test code = 80577-4) Abnormal [facility] Arterial Blood Gas.2023-02-21 22:56:14* Test Item Value Reference Range Interpretation Comme nts PH (test code = 2) 7.40 7.35-7.45 PCO2 (test code = 2001728367) 34 See_Comment L [Automated messa ge] The system which generated this result transmitted reference range: 35 - 45 mmHg. The reference range was not used to interpret this result as normal/abnormal. PO2 (test code = 5580601764) 108 See_Comment H QUES [Automated message] The system which generated this result transmitted reference range: 80 - 100 mmHg. The reference range was not used to interpret this result as normal/abnormal. HCO3 (test code = 1141595111) 21 See_Comment L [Automated messa ge] The system which generated this result transmitted reference range: 22 - 26 mEq/L. The reference range was not used to interpret this result as normal/abnormal. BE (test code = 7548785435) -3.5 See_Comment L [Automated messa ge] The system which generated this result transmitted reference range: -3.0 - 3.0 mEq/L. The reference range was not used to interpret this result as normal/abnormal. Lab Interpretation (test code = 87862-9) [facility]normal [facility]E)2023-02-21 22:32:50* Test Item Value Reference Range Interpretation Comme nts Height (test code = 7777022777) 69 in Weight (test code = 1012700303) 206 lbs Systolic BP (test code = 6196577965) 154 mmHg Diastolic BP (test code = 6699161151) 90 mmHg Heart Rate (test code = 5609433528) 98 bpm LVOT stroke volume (test code = 9200648024) 88.00 cm3 EF(Teich) (test code = 6176142115) 57.60 % LVIDD (test code = 9243690915) 6.30 cm LVIDS (test code = 4442369734) 4.30 cm Left Ventricular End Systolic Volume by Teichholz Method (test code = 5786158) 84.8 mL Left Ventricular End Diastolic Volume by Teichholz Method (test code = 6836445) 200.1 mL IVS (test code = 0591615484) 1.34 cm LVPWD (test code = 9338976682) 1.16 cm LVOT diameter (test code = 5389970956) 2.19 cm LVOT area (test code = 0652048391) 3.80 cm2 FS (test code = 1746041679) 31 % MV Peak E Cy (test code = 3440664246) 136.7 cm/s MV Peak A Cy (test code = 3698114890) 93.0 cm/s E/A ratio (test code = 1531770001) 1.47 ratio E wave decelartion time (test code = 6436867119) 0.10 s LA Volume Index (BP) (test code = 0868602798) 40.1 mL/m2 LA volume (BP) (test code = 1046070987) 84.0 mL LVOT peak cy (test code = 1169616897) 133.8 cm/s LVOT mn grad (test code = 1183397787) 3.9 mmHg BSA (test code = 6174586473) 2.09 m2 LA size (test code = 8198721621) 5.2 cm LAV(MOD-sp2) (test code = 4783331984) 68.20 mL LAV(MOD-sp4) (test code = 2619990809) 68.10 mL Tapse (test code = 3623561606) 2.29 cm Ao peak cy (test code = 4544123209) 186.8 cm/s AV LVOT peak gradient (test code = 1338447102) 7.2 mmHg LVOT peak VTI (test code = 2100762007) 23.4 cm AV area peak cy (test code = 7271495687) 2.7 cm2 LV V1 mean (test code = 6267557489) 94.40 cm/s Ao max PG (test code = 0288276874) 14.00 mm[Hg] MV Prop V (test code = 9257526533) 32.40 cm/s Ao root diam (test code = 8535011451) 3.70 cm AV peak gradient (test code = 4829002446) 14.0 mmHg Aortic root (test code = 3484823829) 3.7 cm Ao root annulus (test code = 1664964812) 3.7 cm PW (test code = 7236055839) 1.16 cm 0.6-1.1 EF - 2D (test code = 45370548) 57.60 % Interventricular Septum Diastolic Thickness by 2D (test code = 1673627) 1.34 cm TR Peak Cy (test code = 9765409031) 136.8 cm/s Triscuspid Valve Regurgitation Peak Gradient (test code = 9948532522) 7.5 mmHg TASV (test code = 4514220642) 15.1 cm/s A2C EF (test code = 0806209980) 58.70 % EF(sp2-el) (test code = 3567430903) 60.40 % SV(MOD-sp2) (test code = 9483551749) 85.90 mL LV Diastolic Volume (BP) (test code = 8553453147) 146.0 mL A4C EF (test code = 9330555722) 52.90 % EF(MOD-bp) (test code = 1986804121) 54.70 % EF(sp4-el) (test code = 1830011301) 53.60 % LV Systolic Volume (BP) (test code = 0238168279) 66.2 mL SV(MOD-bp) (test code = 6040448469) 79.80 mL SV(MOD-sp4) (test code = 4136100920) 75.70 mL SV(sp4-el) (test code = 5922079341) 75.90 mL EF (test code = 1133791121) 55 Left Ventricular Stroke Volume by 2-D Biplane-MOD (test code = 1126359) 79.8 mL LV Diastolic Volume Index (BP) (test code = 3105244274) 69.9 mL/m2 LV Systolic Volume Index (BP) (test code = 4172169750) 31.7 mL/m2 Radiology Study observation (narrative) (test code = 74789-8) BOBBY (test code = BOBBY) ?Left?Ventricle: Left [...] aorta. Measures 4 cm and index 1.9 cm/o8MxqictxflgkVxo pericardium is normal. No pericardial effusion.Study DetailsStudy [...] lateral and apex.All other segments are normal. [facility] 20 + Lactic [id number] 20:41:00* Test Item Value Reference Range Interpretation Comme nts PH (test code = 2) 7.15 7.35-7.45 LL PCO2 (test code = 6282405349) 73 See_Comment H [Automated messa ge] The system which generated this result transmitted reference range: 35 - 45 mmHg. The reference range was not used to interpret this result as normal/abnormal. PO2 (test code = 1103697709) 147 See_Comment H [Automated messa ge] The system which generated this result transmitted reference range: 80 - 100 mmHg. The reference range was not used to interpret this result as normal/abnormal. HCO3 (test code = 1473607214) 25 See_Comment [Automated messa ge] The system which generated this result transmitted reference range: 22 - 26 mEq/L. The reference range was not used to interpret this result as normal/abnormal. BE (test code = 0666544652) -4.7 See_Comment L [Automated messa ge] The system which generated this result transmitted reference range: -3.0 - 3.0 mEq/L. The reference range was not used to interpret this result as normal/abnormal. THB (test code = 1237690770) 10.1 g/dL 13.5-18.0 L %O2HB (test code = 5923789451) 98.4 % 94.0-99.0 %COHB ART (test code = 3712450021) 0.2 % 0.0-1.5 %METHB ART (test code = [id number]) 0.2 % 0.4-1.5 L VOL%O2 ART (test code = 6071235309) 14.3 % 15.0-23.0 L NA (test code = 8289507178) 129 mmol/L 135-145 L K+ (test code = 4733124382) 4.4 mmol/L 3.5-5.0 AC CA IONZ (test code = 4216044424) 4.20 mg/dL 4.50-5.30 L GLUCOSE (test code = 0998177461) 159 mg/dL 70-110 H LACTIC ACID (test code = 4376194697) 1.02 mmol/L 0.50-2.20 QUES Lab Interpretation (test code = 11154-1) [facility] + Lactic [id number] 17:21:48* Test Item Value Reference Range Interpretation Comme nts PH (test code = 2) 7.25 7.35-7.45 L PCO2 (test code = 1985939662) 56 See_Comment H [Automated messa ge] The system which generated this result transmitted reference range: 35 - 45 mmHg. The reference range was not used to interpret this result as normal/abnormal. PO2 (test code = 2264285198) 103 See_Comment H [Automated messa ge] The system which generated this result transmitted reference range: 80 - 100 mmHg. The reference range was not used to interpret this result as normal/abnormal. HCO3 (test code = 6550983157) 24 See_Comment [Automated messa ge] The system which generated this result transmitted reference range: 22 - 26 mEq/L. The reference range was not used to interpret this result as normal/abnormal. BE (test code = 3664007360) -4.0 See_Comment L [Automated messa ge] The system which generated this result transmitted reference range: -3.0 - 3.0 mEq/L. The reference range was not used to interpret this result as normal/abnormal. THB (test code = 6740100239) 11.0 g/dL 13.5-18.0 L %O2HB (test code = 4149376270) 96.9 % 94.0-99.0 %COHB ART (test code = 6024137932) 0.3 % 0.0-1.5 %METHB ART (test code = 8464523274) 0.3 % 0.4-1.5 L VOL%O2 ART (test code = 6855279096) 15.1 % 15.0-23.0 NA (test code = 8767039740) 130 mmol/L 135-145 L K+ (test code = 6392834610) 4.1 mmol/L 3.5-5.0 AC CA IONZ (test code = 9339542156) 4.10 mg/dL 4.50-5.30 L GLUCOSE (test code = 5824608406) 146 mg/dL 70-110 H LACTIC ACID (test code = 9090428766) 1.23 mmol/L 0.50-2.20 QUES Lab Interpretation (test code = 05552-8) [facility] (76725) (ALB,T.PRO,BILI T,BU/BC,ALT,AST,ALK PHOS)2023-02-21 11:23:27* Test Item Value Reference Range Interpretation Comme nts TOTAL BILI (test code = 8817279644) 2.3 mg/dL 0.1-1.1 H BILI UNCON (test code = 5787307681) 0.6 mg/dL 0.1-1.1 BILI CONJ (test code = 2778887375) 0.0 mg/dL 0.0-0.3 T PROTEIN (test code = 8018735031) 7.4 g/dL 6.3-8.2 ALBUMIN (test code = 7537946683) 4.1 g/dL 3.5-5.0 ALK PHOS (test code = 4709675819) 334 U/L 34-122 H ALTv (test code = 1742-6) 86 U/L 5-50 H AST(SGOT) (test code = 7474526446) 403 U/L 13-40 H Lab Interpretation (test cod e = 77775-8) [facility]normal [facility] WITH [id number] 11:23:27* Test Item Value Reference Range Interpretation [...] 32.8 g/dL 31.2-35.0 RDW-SD (test code = 60476-3) 63.8 fL 38.5-51.6 H RDW-CV (test code = 788-0) 18.5 % 12.1-15.4 H PLT (test code = 777-3) 56 See_Comment L [Automated [employer] ge] The system which generated this result transmitted reference range: 150 - 328 10*3/?L. The reference range was not used to interpret this result as normal/abnormal. MPV (test code = 97516-7) 11.0 fL 9.8-13.0 IPF % (test code = 9739172709) 7.4 % 1.2-10.7 Platelet count measured by fluorescence method. NRBC/100 WBC (test code = 8989445982) 0.0 See_Comment [Automated [employer] ssage] The system which generated this result transmitted reference range: 0.0 - 10.0 /100 WBCs. The reference range was not used to interpret this result as normal/abnormal. NRBC x10^3 (test code = 7913000352) See_Comment [Automated [employer] ge] The system which generated this result transmitted reference range: 10*3/?L. The reference range was not used to interpret this result as normal/abnormal. GRAN MAT (NEUT) % (test code = 770-8) 88.2 % IMM GRAN % (test code = 9898849402) 0.70 % LYMPH % (test code = 736-9) 3.4 % MONO % (test code = 5905-5) 7.3 % EOS % (test code = 713-8) 0.3 % BASO % (test code = 706-2) 0.1 % GRAN MAT x10^3(ANC) (test code = 7014852158) 8.25 10*3/uL 1.99-6.95 H IMM GRAN x10^3 (test code = 0325074006) 0.07 10*3/uL 0.00-0.06 H LYMPH x10^3 (test code = 731-0) 0.32 10*3/uL 1.09-3.23 L MONO x10^3 (test code = 742-7) 0.68 10*3/uL 0.36-1.02 EOS x10^3 (test code = 711-2) 0.03 10*3/uL 0.06-0.53 L BASO x10^3 (test code = 704-7) 0.01-0.09 Lab Interpretation (test code = 77667-8) Abnormal [facility] METABOLIC PANEL (NA, K, CL, CO2, GLUCOSE, BUN, CREATININE, CA)2023-02-21 11:23:27* Test Item Value Reference Range Interpretation Comme nts NA (test code = 3961837917) 131 mmol/L 135-145 L K (test code = 5950684241) 4.2 mmol/L 3.5-5.0 CL (test code = 5960882534) 96 mmol/L 98-108 L CO2 TOTAL (test code = 2973215950) 22 mmol/L 23-31 L AGAP (test code = 6203568285) 13 2-16 BUN (test code = 1573073115) 21 mg/dL 7-23 GLUCOSE (test code = 6333474245) 158 mg/dL 70-110 H CREATININE (test code = 2757907694) 3.61 mg/dL 0.60-1.25 H CALCIUM (test code = 5323742019) 7.2 mg/dL 8.6-10.6 L eGFR (test code = 46945-9) 17.6 mL/min/1.73m2 BOBBY (test code = BOBBY) [...] imaging tests). Lab Interpretation (test code = 26018-9) [facility]normal [facility] (86793) (ALB,T.PRO,BILI T,BU/BC,ALT,AST,ALK PHOS)2023-02-21 11:23:27* Test Item Value Reference Range Interpretation Comme nts TOTAL BILI (test code = 2575870308) 2.3 mg/dL 0.1-1.1 H BILI UNCON (test code = 5995764653) 0.6 mg/dL 0.1-1.1 BILI CONJ (test code = 7074924014) 0.0 mg/dL 0.0-0.3 T PROTEIN (test code = 8427102438) 7.4 g/dL 6.3-8.2 ALBUMIN (test code = 6899351046) 4.1 g/dL 3.5-5.0 ALK PHOS (test code = 7528365966) 334 U/L 34-122 H ALTv (test code = 1742-6) 86 U/L 5-50 H AST(SGOT) (test code = 3434954087) 403 U/L 13-40 H Lab Interpretation (test cod e = 81840-6) Abnormal [facility] Dallas[facility]throm[facility] Time / [id number] 11:08:05* Test Item Value Reference Range Interpretation Comme nts PROTIME PATIENT (test code = 5964-2) 13.8 See_Comment H [Automated [employer]] The system which generated this result transmitted reference range: 10.1 - 12.6 Seconds. The reference range was not used to interpret this result as normal/abnormal. INR (test code = 6301-6) 1.2 Normal INR <1.1; Warfarin Therapeutic range 2.0 to 3.0 or 2.5 to 3.5, depending upon the indications. Lab Interpretation (test code = 91931-5) [facility]-AB WITH [id number] 04:10:12* Test Item Value Reference Range Interpretation Comme nts HIV Semi-quantitative (test code = 10460-4) 0.12 Negative BOBBY (test code = BOBBY) Non-reactive for HIV-1 antigen and HIV-1/HIV-2 antibodies. ?No laboratory evidence of HIV infection. ?Repeat in 2-4 weeks if acute HIV infection is suspected. [facility] 1/2 AG-AB WITH [id number] 04:10:12* Test Item Value Reference Range Interpretation Comme nts HIV Semi-quantitative (test code = 21699-4) 0.12 Negative BOBBY (test code = BOBBY) Non-reactive for HIV-1 antigen and HIV-1/HIV-2 antibodies. ?No laboratory evidence of HIV infection. ?Repeat in 2-4 weeks if acute HIV infection is suspected. [facility] 20 + Lactic [id number] 20:02:14* Test Item Value Reference Range Interpretation Comme nts PH (test code = 2) 7.26 7.35-7.45 L PCO2 (test code = 0511362470) 48 See_Comment H [Automated messa ge] The system which generated this result transmitted reference range: 35 - 45 mmHg. The reference range was not used to interpret this result as normal/abnormal. PO2 (test code = 8002701659) 86 See_Comment [Automated messa ge] The system which generated this result transmitted reference range: 80 - 100 mmHg. The reference range was not used to interpret this result as normal/abnormal. HCO3 (test code = 9540335883) 21 See_Comment L [Automated messa ge] The system which generated this result transmitted reference range: 22 - 26 mEq/L. The reference range was not used to interpret this result as normal/abnormal. BE (test code = 3398336865) -6.0 See_Comment L [Automated messa ge] The system which generated this result transmitted reference range: -3.0 - 3.0 mEq/L. The reference range was not used to interpret this result as normal/abnormal. THB (test code = 8410600151) 12.6 g/dL 13.5-18.0 L %O2HB (test code = 5856876890) 94.9 % 94.0-99.0 %COHB ART (test code = 0253702398) 0.4 % 0.0-1.5 %METHB ART (test code = 9290457387) 0.2 % 0.4-1.5 L VOL%O2 ART (test code = 5494385415) 16.9 % 15.0-23.0 NA (test code = 1018513841) 126 mmol/L 135-145 L K+ (test code = 0119821429) 4.2 mmol/L 3.5-5.0 AC CA IONZ (test code = 1581029900) 3.80 mg/dL 4.50-5.30 L GLUCOSE (test code = 3072422728) 161 mg/dL 70-110 H LACTIC ACID (test code = 6826608531) 1.23 mmol/L 0.50-2.20 QUES Lab Interpretation (test code = 50460-2) Abnormal [facility] METABOLIC PANEL (NA, K, CL, CO2, GLUCOSE, BUN, CREATININE, CA)2023-02-20 19:11:54* Test Item Value Reference Range Interpretation Comme nts NA (test code = 0332292876) 127 mmol/L 135-145 L K (test code = 5669546387) 4.4 mmol/L 3.5-5.0 CL (test code = 4745257244) 94 mmol/L 98-108 L CO2 TOTAL (test code = 9910021100) 21 mmol/L 23-31 L AGAP (test code = 1245345940) 12 2-16 BUN (test code = 9516119623) 36 mg/dL 7-23 H GLUCOSE (test code = 5237010015) 160 mg/dL 70-110 H CREATININE (test code = 2192975496) 5.68 mg/dL 0.60-1.25 H CALCIUM (test code = 3213967292) 6.9 mg/dL 8.6-10.6 L eGFR (test code = 73873-7) 10.4 mL/min/1.73m2 BOBBY (test code = BOBBY) [...] imaging tests). Lab Interpretation (test code = 17942-6) Abnormal [facility], [id number] 19:07:13* Test Item Value Reference Range Interpretation Comme nts AMMONIA (test code = 5727127040) 39 umol/L 9-33 H Lab Interpretation (test cod e = 43807-9) Abnormal [facility] GLUCOSE (AUTOMATED)2023-02-20 16:14:29* Test Item Value Reference Range Interpretation Comme nts POCT GLU (test code = 6730131549) 154 mg/dL 70-110 H Lab Interpretation (test cod e = 68551-0) Abnormal [facility] GLUCOSE (AUTOMATED)2023-02-20 16:14:29* Test Item Value Reference Range Interpretation Comme nts POCT GLU (test code = 9857272892) 154 mg/dL 70-110 H Lab Interpretation (test cod e = 30905-5) Abnormal [facility] acute hospital WITH [id number] 10:35:29* Test Item Value Reference Range Interpretation Comme nts WBC (test code = 6690-2) 8.51 See_Comment [Automated [employer]] The system which generated this result transmitted reference range: 4.20 - 10.70 10*3/?L. The reference range was not used to interpret this result as normal/abnormal. RBC (test code = 789-8) 2.94 See_Comment L [Automated [employer]] The system which generated this result [...] 34.7 g/dL 31.2-35.0 RDW-SD (test code = 63368-7) 59.2 fL 38.5-51.6 H RDW-CV (test code = 788-0) 18.0 % 12.1-15.4 H PLT (test code = 777-3) 104 See_Comment L [Automated [employer]] The system which generated this result transmitted reference range: 150 - 328 10*3/?L. The reference range was not used to interpret this result as normal/abnormal. MPV (test code = 65537-7) 11.3 fL 9.8-13.0 IPF % (test code = 2887409313) 6.3 % 1.2-10.7 Platelet count measured by fluorescence method. NRBC/100 WBC (test code = 2983162915) 0.0 See_Comment [Automated [employer]] The system which generated this result transmitted reference range: 0.0 - 10.0 /100 WBCs. The reference range was not used to interpret this result as normal/abnormal. NRBC x10^3 (test code = 9010085155) See_Comment [Automated messa ge] The system which generated this result transmitted reference range: 10*3/?L. The reference range was not used to interpret this result as normal/abnormal. GRAN MAT (NEUT) % (test code = 770-8) 88.6 % IMM GRAN % (test code = 4244259049) 0.80 % LYMPH % (test code = 736-9) 4.6 % MONO % (test code = 5905-5) 4.9 % EOS % (test code = 713-8) 0.9 % BASO % (test code = 706-2) 0.2 % GRAN MAT x10^3(ANC) (test code = 7943141482) 7.53 10*3/uL 1.99-6.95 H IMM GRAN x10^3 (test code = 3601083648) 0.07 10*3/uL 0.00-0.06 H LYMPH x10^3 (test code = 731-0) 0.39 10*3/uL 1.09-3.23 L MONO x10^3 (test code = 742-7) 0.42 10*3/uL 0.36-1.02 EOS x10^3 (test code = 711-2) 0.08 10*3/uL 0.06-0.53 BASO x10^3 (test code = 704-7) 0.01-0.09 Lab Interpretation (test code = 44435-7) [facility]normal [facility]2023-10-29 10:26:22* Test Item Value Reference Range Interpretation Comme nts PHOSPHORUS (test code = 1006451840) 6.4 mg/dL 2.5-5.0 H Lab Interpretation (test cod e = 08888-9) Abnormal [facility]2023-10-29 10:26:22* Test Item Value Reference Range Interpretation Comme nts MAGNESIUM (test code = 8906335606) 2.1 mg/dL 1.7-2.4 Lab Interpretation (test cod e = 98044-7) Normal [facility] METABOLIC PANEL (NA, K, CL, CO2, GLUCOSE, BUN, CREATININE, CA)2023-02-20 10:26:22* Test Item Value Reference Range Interpretation Comme nts NA (test code = 6430507252) 125 mmol/L 135-145 L K (test code = 8806251430) 4.4 mmol/L 3.5-5.0 CL (test code = 7529164384) 91 mmol/L 98-108 L CO2 TOTAL (test code = 1786715772) 15 mmol/L 23-31 L AGAP (test code = 6413955007) 19 2-16 H BUN (test code = 6867874924) 49 mg/dL 7-23 H GLUCOSE (test code = 0231831282) 154 mg/dL 70-110 H CREATININE (test code = 7810117852) 8.54 mg/dL 0.60-1.25 H CALCIUM (test code = 4904209827) 6.1 mg/dL 8.6-10.6 L eGFR (test code = 16689-1) 6.5 mL/min/1.73m2 BOBBY (test code = BOBBY) [...] imaging tests). Lab Interpretation (test code = 14728-9) Abnormal [facility] DallasProthrombin Time / [id number] 09:53:41* Test Item Value Reference Range Interpretation Comme nts PROTIME PATIENT (test code = 5964-2) 15.5 See_Comment H [Automated [employer]] The system which generated this result transmitted reference range: 10.1 - 12.6 Seconds. The reference range was not used to interpret this result as normal/abnormal. INR (test code = 6301-6) 1.4 Normal INR <1.1; Warfarin Therapeutic range 2.0 to 3.0 or 2.5 to 3.5, depending upon the indications. Lab Interpretation (test code = 79134-6) Abnormal [facility] (52378) (ALB,T.PRO,BILI T,BU/BC,ALT,AST,ALK PHOS)2023-02-20 06:50:43* Test Item Value Reference Range Interpretation Comme nts TOTAL BILI (test code = 3852670739) 2.3 mg/dL 0.1-1.1 H BILI UNCON (test code = 5451165249) 0.5 mg/dL 0.1-1.1 BILI CONJ (test code = 6996455244) 0.0 mg/dL 0.0-0.3 T PROTEIN (test code = 3409448734) 6.7 g/dL 6.3-8.2 ALBUMIN (test code = 2168193763) 3.0 g/dL 3.5-5.0 L ALK PHOS (test code = 9574733690) 324 U/L 34-122 H ALTv (test code = 1742-6) 98 U/L 5-50 H AST(SGOT) (test code = 9556883074) 384 U/L 13-40 H Lab Interpretation (test cod e = 65163-7) Abnormal [facility] DallasOSMOLALITY, SERUM OR [id number] 21:10:51 * Test Item Value Reference Range Interpretation Comme nts OSMOLALITY (test code = 2692-2) 278 See_Comment [Automated [employer]] The system which generated this result transmitted reference range: 278 - 305 mOsm/kg. The reference range was not used to interpret this result as normal/abnormal. Lab Interpretation (test code = 75166-9) Normal [facility] Dallas[facility]MOLAL[facility], SERUM OR [id number] 21:10:51 * Test Item Value Reference Range Interpretation Comme nts OSMOLALITY (test code = 2692-2) 278 See_Comment [Automated messa ge] The system which generated this result transmitted reference range: 278 - 305 mOsm/kg. The reference range was not used to interpret this result as normal/abnormal. Lab Interpretation (test code = 36633-7) Normal [facility] DallasAMMONIA, [id number] 14:08:31* Test Item Value Reference Range Interpretation Comme nts AMMONIA (test code = 7085167215) 25 umol/L 9-33 Lab Interpretation (test cod e = 75320-4) Normal [facility]COMP. METABOLIC PANEL (93926)2023-02-19 13:44:54* Test Item Value Reference Range Interpretation Comme nts NA (test code = 3942794785) 121 mmol/L 135-145 L K (test code = 7191114220) 4.7 mmol/L 3.5-5.0 CL (test code = 7127657156) 90 mmol/L 98-108 L CO2 TOTAL (test code = 3333281714) 13 mmol/L 23-31 L AGAP (test code = 2160129123) 18 2-16 H BUN (test code = 1924830191) 61 mg/dL 7-23 H GLUCOSE (test code = 1686467887) 92 mg/dL 70-110 CREATININE (test code = 6812929572) 10.78 mg/dL 0.60-1.25 H TOTAL BILI (test code = 9399517691) 2.6 mg/dL 0.1-1.1 H CALCIUM (test code = 9444642609) 5.9 mg/dL 8.6-10.6 LL T PROTEIN (test code = 9953093087) 6.6 g/dL 6.3-8.2 ALBUMIN (test code = 0810803059) 3.1 g/dL 3.5-5.0 L ALK PHOS (test code = 0427401761) 304 U/L 34-122 H ALTv (test code = 1742-6) 98 U/L 5-50 H AST(SGOT) (test code = 0029322290) 387 U/L 13-40 H eGFR (test code = 08880-9) 5.0 mL/min/1.73m2 BOBBY (test code = BOBBY) [...] imaging tests). Lab Interpretation (test code = 20462-1) Abnormal [facility] PANEL 21 + LACTIC [id number] 05:32:17* Test Item Value Reference Range Interpretation Comme nts PH (test code = 9717253912) 7.23 7.32-7.42 L PCO2 JUAN LUIS (test code = 1826710000) 39 See_Comment L [Automated [employer]] The system which generated this result transmitted reference range: 41 - 51 mmHg. The reference range was not used to interpret this result as normal/abnormal. PO2 JUAN LUIS (test code = 4867159594) 39 See_Comment [Automated messa ge] The system which generated this result transmitted reference range: 25 - 40 mmHg. The reference range was not used to interpret this result as normal/abnormal. HCO3 JUAN LUIS (test code = 0990343671) 16 See_Comment L [Automated messa ge] The system which generated this result transmitted reference range: 24 - 28 mEq/L. The reference range was not used to interpret this result as normal/abnormal. AC VBE(BEAKER) (test code = 4790593057) -11.0 mEq/L THB JUAN LUIS (test code = 1221070212) 12.0 g/dL 13.5-18.0 L %O2HB JUAN LUIS (test code = 3735052738) 63.9 % 52.0-63.0 H %COHB JUAN LUIS (test code = 1386255503) 0.2 % 0.0-1.5 %METHB JUAN LUIS (test code = 3077033580) 0.0 % 0.4-1.5 L VOL%O2 JUAN LUIS (test code = 0887530526) 10.8 % 6.0-12.0 NA (test code = 4322408246) 121 mmol/L 135-145 L K+ (test code = 3869849669) 4.8 mmol/L 3.5-5.0 AC CA IONZ (test code = 4597156384) 3.40 mg/dL 4.50-5.30 L GLUCOSE (test code = 4165544852) 107 mg/dL 70-110 LACTIC ACID (test code = 8449666560) 1.52 mmol/L 0.50-2.20 Lab Interpretation (test code = 62733-4) Abnormal [facility] 21 + LACTIC [id number] 05:32:17* Test Item Value Reference Range Interpretation Comme nts PH (test code = 5555770224) 7.23 7.32-7.42 L PCO2 JUAN LUIS (test code = 4587172527) 39 See_Comment L [Automated messa ge] The system which generated this result transmitted reference range: 41 - 51 mmHg. The reference range was not used to interpret this result as normal/abnormal. PO2 JUAN LUIS (test code = 9482412155) 39 See_Comment [Automated messa ge] The system which generated this result transmitted reference range: 25 - 40 mmHg. The reference range was not used to interpret this result as normal/abnormal. HCO3 JUAN LUIS (test code = 7845715002) 16 See_Comment L [Automated messa ge] The system which generated this result transmitted reference range: 24 - 28 mEq/L. The reference range was not used to interpret this result as normal/abnormal. AC VBE(BEAKER) (test code = 5870640116) -11.0 mEq/L THB JUAN LUIS (test code = 8114507541) 12.0 g/dL 13.5-18.0 L %O2HB JUAN LUIS (test code = 0100403831) 63.9 % 52.0-63.0 H %COHB JUAN LUIS (test code = 4104580041) 0.2 % 0.0-1.5 %METHB JUAN LUIS (test code = 7330419020) 0.0 % 0.4-1.5 L VOL%O2 JUAN LUIS (test code = 4012971809) 10.8 % 6.0-12.0 NA (test code = 1010745347) 121 mmol/L 135-145 L K+ (test code = 5022192416) 4.8 mmol/L 3.5-5.0 AC CA IONZ (test code = 1617063819) 3.40 mg/dL 4.50-5.30 L GLUCOSE (test code = 6405995849) 107 mg/dL 70-110 LACTIC ACID (test code = 7417257600) 1.52 mmol/L 0.50-2.20 Lab Interpretation (test code = 11181-8) Abnormal [facility] Consult Notes Date/Time Note Provider Source 2024-05-28 12:25:40 Neurocritical Care Progress Note Consulted by NSGY for medical mgmt of TBI History Of Present Illness Beny Aden, 58 y.o. male with PMH of alcohol withdrawal, PTSD, alcoholic cirrhosis, newly diagnosed seizure disorder (3 lifetime seizures reported good compliance with primidone 50 mg) Denies AC/AP use, recent trauma in March , who presented s/p mechanical trip and fall in which his "legs gave out" and suffered a right fibular fracture and posterior malleolus fracture. Initial CTH L frontal tSAH with no MLS. NSGY following. Patient admitted to for closer monitoring and medical management of TBI. Of note patient had prior trauma back in March which resulted in orbital fracture and persistent diplopia. Interval Events: 05/24: right ankle placed in cast, Na lower than baseline 05/25: A&O x3-4. Reporting pain in right leg after placing weight on it overnight. Ortho notified repeat imaging ordered 05/26: patient would like to proceed with ORIF prior to discharge, pending timing for surgery; plt downtrending 05/27: plt improved to 75 today; R ORIF planned for Sunday 05/28: A&O x4. Reports pain is controlled with current regimen. Plan to OR tomorrow 05/29 for ORIF right ankle. cEEG negative seizures Further clinical exam documented under Impression and Plan by systems. ======= ASSESSMENT AND PLAN Beny Aden, 58 y.o. male with PMH of alcohol withdrawal, PTSD, alcoholic cirrhosis, newly diagnosed seizure disorder (3 lifetime seizures, reported good compliance with Keppra) and recent trauma in March , who presented on 05/23/2024 NEUROLOGIC Left frontal tSAH no MLS New diagnosed sz poa Neuro Exam: GCS: E4 Eyes open spontaneously, V5 Speech orientated, M6 Follows commands MS: AAO x4, following commands, speech fluent, no dysarthria, naming intact, no neglect CN: L pupil 3, R pupil 3, EOMI, VFF, face symmetric; eye patch in place Motor: weaker on LLE 4-/5 (in splint); otherwise full strength throughout Coordination: FNF no dysmetria Sensory: intact to light touch throughout Gait: deferred initial CTH revealed Left frontal tSAH no MLS CT C-spine negative for fractures Rpt CTH stable No NSGY indicated No coagulopathy on labs or per history S/p Keppra 1gm load; continue 500mg q12h x7d for sz ppx; 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 Home meds: On primidone 50 mg HS for seizures-restarted Trazodone 50 mg HS ( per pt for insomnia) restarted Cymbalta 60 mg every day-restarted Gabapentin 100 mg po TID started for neuropathic pain ======= CARDIOVASCULAR CV Exam: sinus tachycardia Temp: [36.1 ?C (97 ?F)-37.1 ?C (98.7 ?F)] 36.7 ?C (98.1 ?F) Heart Rate: [86-97] 97 Resp: [17-19] 18 BP: (120-136)/(80-95) 136/95 VS Parameters: SBP<150 PRN hydralazine, labetalol Trop negative EKG Sinus Tachycardia 24hr tele to r/o arrhythmias Home meds: Carvedilol 6.25 mg BID Lasix 40 mg qd-holding no S&S of edema present, no sob Spironolactone 25 mg every day-holding ======= PULMONARY Pulm Exam: CTAB on room air w/ spO2>94% ======= GASTROINTESTINAL alcoholic cirrhosis poa GI Exam: soft, non-distended, present bowl sounds Nutrition: Current Order: Adult Diet Regular NPO Diet GI ppx: home PPI protonix bowel regimen: senna last BM 2 Lab Results Component Value Date ALT 17 05/28/2024 AST 46 (H) 05/28/2024 Alkaline Phosphatase 142 (H) 05/28/2024 Bilirubin Total 1.18 05/28/2024 Home meds: Pepcid 20 mg restarted ======= RENAL Hyponatremia, on admit Intake/Output Summary (Last 24 hours) at 05/28/2024 1225 Last data filed at 05/28/2024 0331 Gross per 24 hour Intake 480 ml Output 650 ml Net -170 ml Results from last 7 days Lab Units 05/28/2420905/27/24 0428 05/26/24 0154 SODIUM mEq/L 139 138 140 POTASSIUM mEq/L 4.4 5.4* 4.3 CHLORIDE mEq/L 104 104 104 CO2 mEq/L 27.6 24.4 27.0 BUN mg/dL 8* 7* 10 CREATININE mg/dL 1.45* 1.46* 1.63* Electrolytes WNL No IVF Voids ====== INFECTIOUS DISEASE Temp (24hrs), Av.7 ?C (98 ?F), Min:36.1 ?C (97 ?F), Max:37.1 ?C (98.7 ?F) Results from last 7 days Lab Units 05/28/24 02105/27/24 0428 05/26/24 0154 WBC 10*3/uL 5.00 4.62 3.71* UA noninfectious Monitor trend fever curve and WBC no ABX indicated ======= HEMATOLOGIC Thrombocytopenia, on admit Results from last 7 days Lab Units 05/28/24 02105/27/24 0428 05/26/24 0154 05/25/24 0235 05/24/24 0425 05/23/24 0155 HEMOGLOBIN g/dL 10.9* 11.4* 11.0* < > 12.0* 13.3 PLATELETS MANUAL -- -- -- < > -- -- PLATELETS 10*3/uL 85* 75* 65* < > 80* 90* INR -- -- -- -- 1.11 1.19* PTT Seconds -- -- -- -- 28.1 31.1 < > = values in this interval not displayed. Plt improved to 75 today, continue to monitor TEG negative No coagulopathy on labs or per history DVT ppx: SCDs; [place] q8h, monitor thrombocytopenia, holding on 05/29 starting at midnight for ORIF 05/29 Platelet goal >50 given cirrhosis ======= ENDOCRINE Hyperlipidemia poa Hypokalemia poa Results from last 7 days Lab Units 05/28/24 0210 05/27/24 0428 05/26/24 0154 05/25/24 0237 05/24/24 0425 GLUCOSE mg/dL 97 86 93 < > 87 HEMOGLOBIN A1C % -- -- -- -- 5.57 < > = values in this interval not displayed. BG goal 80-180 medium-dose ISS Home meds: Crestor 40 mg HS-restarted Klor-con 20 mEq TID restarted ======= MUSCULOSKELETAL AND INTEGUMENTARY right fibular fracture and posterior malleolus fracture. Skin Exam: warm, dry, intact #Right ankle fracture - OSH splint removed and new splint applied 05/25 - RLE NWB - Patient would like to proceed with right ankle ORIF prior to discharge; scheduled 05/29 - 05/[address] - avulsion fracture of a 23 mm fragment of the anterior lateral malleolus at the AITFL insertion with 12 mm displacement, mildly displaced oblique lateral malleolus fracture at the level of the distal syndesmosis, nondisplaced posterior malleolus fracture involving 12% of the articular Surface 05/25 right ankle Xray - unchanged minimal lateral translation of talus, unchanged oblique lateral malleolus fracture ======= Code Status: Full Code Dispo: pending ORIF on 05/29 Care plan d/w patient [place] [place] IMU[place]Floor LETA Ph #[phone] (available 15/11), #[phone] (available 6:30a - :30p) Neuro ICU White Team Ph #[phone] The patient was seen and examined by me at a separate time from the LETA. I also reviewed the documentation and agree with the documented findings and plan of care. Additionally, I was directly involved in the management of the patient and provided the substantive portion of this visit, including examining the patient, obtaining history, and medical decision-making. [facility] 2024-05-27 09:52:39 Neurocritical Care Progress Note Consulted by NSGY for medical mgmt of TBI History Of Present Illness Beny Adne, 58 y.o. male with PMH of alcohol withdrawal, PTSD, alcoholic cirrhosis, newly diagnosed seizure disorder (3 lifetime seizures reported good compliance with primidone 50 mg) Denies AC/AP use, recent trauma in March , who presented s/p mechanical trip and fall in which his "legs gave out" and suffered a right fibular fracture and posterior malleolus fracture. Initial CTH L frontal tSAH with no MLS. NSGY following. Patient admitted to for closer monitoring and medical management of TBI. Of note patient had prior trauma back in March which resulted in orbital fracture and persistent diplopia. Interval Events: 05/24: right ankle placed in cast, Na lower than baseline 05/25: A&O x3-4. Reporting pain in right leg after placing weight on it overnight. Ortho notified repeat imaging ordered 05/26: patient would like to proceed with ORIF prior to discharge, pending timing for surgery; plt downtrending 05/27: plt improved to 75 today; R ORIF planned for Tuesday Further clinical exam documented under Impression and Plan by systems. ======= ASSESSMENT AND PLAN Beny Aden, 58 y.o. male with PMH of alcohol withdrawal, PTSD, alcoholic cirrhosis, newly diagnosed seizure disorder (3 lifetime seizures, reported good compliance with Keppra) and recent trauma in March , who presented on 05/23/2024 NEUROLOGIC Left frontal tSAH no MLS New diagnosed sz poa Neuro Exam: GCS: E4 Eyes open spontaneously, V5 Speech orientated, M6 Follows commands MS: AAO x4, following commands, speech fluent, no dysarthria, naming intact, no neglect CN: L pupil 3, R pupil 3, EOMI, VFF, face symmetric; eye patch in place Motor: weaker on LLE 4-/5 (in splint); otherwise full strength throughout Coordination: FNF no dysmetria Sensory: intact to light touch throughout Gait: deferred initial CTH revealed Left frontal tSAH no MLS CT C-spine negative for fractures Rpt CTH stable No NSGY indicated No coagulopathy on labs or per history S/p Keppra 1gm load; continue 500mg q12h x7d for sz ppx; 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 Home meds: On primidone 50 mg HS for seizures-restarted Trazodone 50 mg HS ( per pt for insomnia) restarted Cymbalta 60 mg every day-restarted ======= CARDIOVASCULAR CV Exam: sinus tachycardia Temp: [36.1 ?C (96.9 ?F)-37.4 ?C (99.3 ?F)] 36.8 ?C (98.3 ?F) Heart Rate: [91-109] 109 Resp: [17-19] 19 BP: (120-165)/(85-103) 165/103 VS Parameters: SBP<150 PRN hydralazine, labetalol Trop negative EKG Sinus Tachycardia 24hr tele to r/o arrhythmias Home meds: Carvedilol 6.25 mg BID Lasix 40 mg qd-holding no S&S of edema present, no sob Spironolactone 25 mg every day-holding ======= PULMONARY Pulm Exam: CTAB on room air w/ spO2>94% ======= GASTROINTESTINAL alcoholic cirrhosis poa GI Exam: soft, non-distended, present bowl sounds Nutrition: Current Order: Adult Diet Regular GI ppx: home PPI protonix bowel regimen: senna last BM 05/25 Lab Results Component Value Date ALT 20 05/27/2024 AST 67 (H) 05/27/2024 Alkaline Phosphatase 131 (H) 05/27/2024 Bilirubin Total 1.27 (H) 05/27/2024 Home meds: Pepcid 20 mg restarted ======= RENAL Hyponatremia, on admit Intake/Output Summary (Last 24 hours) at 05/27/2024 0952 Last data filed at 05/27/2024 0418 Gross per 24 hour Intake 780 ml Output 2100 ml Net -1320 ml Results from last 7 days Lab Units 02/06/19 42705/26/2415305/25/24236 SODIUM mEq/L 138 140 136 POTASSIUM mEq/L 5.4* 4.3 3.8 CHLORIDE mEq/L 104 104 98 CO2 mEq/L 24.4 27.0 28.8 BUN mg/dL 7* 10 10 CREATININE mg/dL 1.46* 1.63* 1.73* K 5.4 today; was receiving scheduled Kcl 20mEq TID; stop and repeat BMP Electrolytes WNL No IVF Voids ====== INFECTIOUS DISEASE Temp (24hrs), Av.8 ?C (98.3 ?F), Min:36.1 ?C (96.9 ?F), Max:37.4 ?C (99.3 ?F) Results from last 7 days Lab Units 05/27/2442705/26/2415305/25/24 023 WBC 10*3/uL 4.62 3.71* 3.88* UA noninfectious Monitor trend fever curve and WBC no ABX indicated ======= HEMATOLOGIC Thrombocytopenia, on admit Results from last 7 days Lab Units 05/27/2442705/26/2415305/25/2423405/24/2442405/23/24 0155 HEMOGLOBIN g/dL 11.4* 11.0* 10.4* 12.0* 13.3 PLATELETS MANUAL 10*3/uL -- -- 65* -- -- PLATELETS 10*3/uL 75* 65* 57* 80* 90* INR -- -- -- 1.11 1.19* PTT Seconds -- -- -- 28.1 31.1 Plt improved to 75 today, continue to monitor TEG negative No coagulopathy on labs or per history DVT ppx: SCDs; [place] q8h, monitor thrombocytopenia Platelet goal >50 given cirrhosis ======= ENDOCRINE Hyperlipidemia poa Hypokalemia poa Results from last 7 days Lab Units 05/27/24 0428 05/26/24 0154 05/25/24 0237 05/24/24 0425 GLUCOSE mg/dL 86 93 103* 87 HEMOGLOBIN A1C % -- -- -- 5.57 BG goal 80-180 medium-dose ISS Home meds: Crestor 40 mg HS-restarted Klor-con 20 mEq TID restarted ======= MUSCULOSKELETAL AND INTEGUMENTARY right fibular fracture and posterior malleolus fracture. Skin Exam: warm, dry, intact #Right ankle fracture - OSH splint removed and new splint applied 05/25 - RLE NWB - Patient would like to proceed with right ankle ORIF prior to discharge; scheduled 05/29 - 05/[address] - avulsion fracture of a 23 mm fragment of the anterior lateral malleolus at the AITFL insertion with 12 mm displacement, mildly displaced oblique lateral malleolus fracture at the level of the distal syndesmosis, nondisplaced posterior malleolus fracture involving 12% of the articular Surface 05/25 right ankle Xray - unchanged minimal lateral translation of talus, unchanged oblique lateral malleolus fracture ======= Code Status: Full Code Dispo: pending ORIF on 05/29 Care plan d/w patient [place] [place] IMU/Floor LETA Ph #[phone] (available 15/11), #[phone] (available 6:30a - 4:30p) Neuro ICU White Team Ph #[phone] The patient was seen and examined by me at a separate time from the LETA. I also reviewed the documentation and agree with the documented findings and plan of care. Additionally, I was directly involved in the management of the patient and provided the substantive portion of this visit, including examining the patient, obtaining history, and medical decision-making. [facility] 2024-05-26 10:59:06 Neurocritical Care Progress Note Consulted by NSGY for medical mgmt of TBI History Of Present Illness Beny Kim, 58 y.o. male with PMH of alcohol withdrawal, PTSD, alcoholic cirrhosis, newly diagnosed seizure disorder (3 lifetime seizures reported good compliance with primidone 50 mg) Denies AC/AP use, recent trauma in March , who presented s/p mechanical trip and fall in which his "legs gave out" and suffered a right fibular fracture and posterior malleolus fracture. Initial CTH L frontal tSAH with no MLS. NSGY following. Patient admitted to for closer monitoring and medical management of TBI. Of note patient had prior trauma back in March which resulted in orbital fracture and persistent diplopia. Interval Events: 05/24: right ankle placed in cast, Na lower than baseline 05/25: A&O x3-4. Reporting pain in right leg after placing weight on it overnight. Ortho notified repeat imaging ordered 05/26: patient would like to proceed with ORIF prior to discharge, pending timing for surgery; plt downtrending Further clinical exam documented under Impression and Plan by systems. ======= ASSESSMENT AND PLAN Beny Aden, 58 y.o. male with PMH of alcohol withdrawal, PTSD, alcoholic cirrhosis, newly diagnosed seizure disorder (3 lifetime seizures, reported good compliance with Keppra) and recent trauma in March , who presented on 05/23/2024 NEUROLOGIC Left frontal tSAH no MLS New diagnosed sz poa Neuro Exam: GCS: E4 Eyes open spontaneously, V5 Speech orientated, M6 Follows commands MS: AAO x4, following commands, speech fluent, no dysarthria, naming intact, no neglect CN: L pupil 3, R pupil 3, EOMI, VFF, face symmetric; eye patch in place Motor: No drift, 5/5 strength throughout Coordination: FNF no dysmetria Sensory: intact to light touch throughout Gait: deferred initial CTH revealed Left frontal tSAH no MLS CT C-spine negative for fractures Rpt CTH stable No NSGY indicated No coagulopathy on labs or per history S/p Keppra 1gm load; continue 500mg q12h x7d for sz ppx; 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 Home meds: On primidone 50 mg HS for seizures-restarted Trazodone 50 mg HS ( per pt for insomnia) restarted Cymbalta 60 mg every day-restarted ======= CARDIOVASCULAR CV Exam: sinus tachycardia Temp: [35.7 ?C (96.2 ?F)-36.9 ?C (98.4 ?F)] 36.9 ?C (98.4 ?F) Heart Rate: [84-105] 105 Resp: [17-19] 19 BP: (105-148)/(73-98) 148/98 VS Parameters: SBP<150 PRN hydralazine, labetalol Trop negative EKG Sinus Tachycardia 24hr tele to r/o arrhythmias Home meds: Carvedilol 6.25 mg BID Lasix 40 mg qd-holding no S&S of edema present, no sob Spironolactone 25 mg every day-holding ======= PULMONARY Pulm Exam: CTAB on room air w/ spO2>94% ======= GASTROINTESTINAL alcoholic cirrhosis poa GI Exam: soft, non-distended, present bowl sounds Nutrition: Current Order: Adult Diet Regular GI ppx: home PPI protonix bowel regimen: senna last BM 05/25 Lab Results Component Value Date ALT 19 05/26/2024 AST 53 (H) 05/26/2024 Alkaline Phosphatase 146 (H) 05/26/2024 Bilirubin Total 1.16 05/26/2024 Home meds: Pepcid 20 mg restarted ======= RENAL Hyponatremia, on admit Intake/Output Summary (Last 24 hours) at 05/26/2024 1059 Last data filed at 05/25/2024 2000 Gross per 24 hour Intake 400 ml Output -- Net 400 ml Results from last 7 days Lab Units 05/26/24 0154 05/25/24 0237 05/24/24 0838 05/24/24 0425 SODIUM mEq/L 140 136 133* 134* POTASSIUM mEq/L 4.3 3.8 3.1* 3.0* CHLORIDE mEq/L 104 98 -- 94* CO2 mEq/L 27.0 28.8 -- 28.0 BUN mg/dL 10 10 -- 11 CREATININE mg/dL 1.63* 1.73* -- 1.69* Electrolytes WNL No IVF Voids ====== INFECTIOUS DISEASE Temp (24hrs), Av.5 ?C (97.7 ?F), Min:35.7 ?C (96.2 ?F), Max:36.9 ?C (98.4 ?F) Results from last 7 days Lab Units 05/26/2415305/25/2423405/24/24 0425 WBC 10*3/uL 3.71* 3.88* 5.98 UA noninfectious Monitor trend fever curve and WBC no ABX indicated ======= HEMATOLOGIC Thrombocytopenia, on admit Results from last 7 days Lab Units 05/26/2415305/25/2423405/24/2442405/23/24 0155 HEMOGLOBIN g/dL 11.0* 10.4* 12.0* 13.3 PLATELETS MANUAL 10*3/uL -- 65* -- -- PLATELETS 10*3/uL 65* 57* 80* 90* INR -- -- 1.11 1.19* PTT Seconds -- -- 28.1 31.1 Downtrending plt; monitor TEG negative No coagulopathy on labs or per history DVT ppx: SCDs; [place] q8h, monitor thrombocytopenia Platelet goal >50 given cirrhosis ======= ENDOCRINE Hyperlipidemia poa Hypokalemia poa Results from last 7 days Lab Units 05/26/2415305/25/2423605/24/24 042 GLUCOSE mg/dL 93 103* 87 HEMOGLOBIN A1C % -- -- 5.57 BG goal 80-180 medium-dose ISS Home meds: Crestor 40 mg HS-restarted Klor-con 20 mEq TID restarted ======= MUSCULOSKELETAL AND INTEGUMENTARY right fibular fracture and posterior malleolus fracture. Skin Exam: warm, dry, intact #Right ankle fracture - OSH splint removed and new splint applied 05/25 - RLE NWB - Patient would like to proceed with right ankle ORIF prior to discharge; ortho team notified, pending timing for surgery - 05/[address] - avulsion fracture of a 23 mm fragment of the anterior lateral malleolus at the AITFL insertion with 12 mm displacement, mildly displaced oblique lateral malleolus fracture at the level of the distal syndesmosis, nondisplaced posterior malleolus fracture involving 12% of the articular Surface 05/25 right ankle Xray - unchanged minimal lateral translation of talus, unchanged oblique lateral malleolus fracture ======= Code Status: Full Code Dispo: pending timing of right ankle ORIF Care plan d/w patient -[facility] [place] [facility] [place] IMU/Floor LETA Ph #[phone] (available 15/11), #[phone] (available 6:30a - 4:30p) Neuro ICU White Team Ph #[phone] The patient was seen and examined by me at a separate time from the LETA. I also reviewed the documentation and agree with the documented findings and plan of care. Additionally, I was directly involved in the management of the patient and provided the substantive portion of this visit, including examining the patient, obtaining history, and medical decision-making. [facility] 2024-05-25 09:00:00 Neurocritical Care Progress Note Consulted by NSGILDARDO for medical mgmt of TBI History Of Present Illness Beny Aden, 58 y.o. male with PMH of alcohol withdrawal, PTSD, alcoholic cirrhosis, newly diagnosed seizure disorder (3 lifetime seizures reported good compliance with primidone 50 mg) Denies AC/AP use, recent trauma in March , who presented s/p mechanical trip and fall in which his "legs gave out" and suffered a right fibular fracture and posterior malleolus fracture. Initial CTH L frontal tSAH with no MLS. NSGY following. Patient admitted to for closer monitoring and medical management of TBI. Of note patient had prior trauma back in March which resulted in orbital fracture and persistent diplopia. Interval Events: 05/24: right ankle placed in cast, Na lower than baseline 05/25: A&O x3-4. Reporting pain in right leg after placing weight on it overnight. Ortho notified repeat imaging ordered Further clinical exam documented under Impression and Plan by systems. ======= ASSESSMENT AND PLAN Beny Aden, 58 y.o. male with PMH of alcohol withdrawal, PTSD, alcoholic cirrhosis, newly diagnosed seizure disorder (3 lifetime seizures, reported good compliance with Keppra) and recent trauma in March , who presented on 05/23/2024 NEUROLOGIC Left frontal tSAH no MLS New diagnosed sz poa Neuro Exam: GCS: E4 Eyes open spontaneously, V5 Speech orientated, M6 Follows commands MS: AAO x4, following commands, speech fluent, no dysarthria, naming intact, no neglect CN: L pupil 3, R pupil 3, EOMI, VFF, face symmetric Motor: No drift, 5/5 strength throughout Coordination: FNF no dysmetria Sensory: intact to light touch throughout Gait: deferred initial CTH revealed Left frontal tSAH no MLS CT C-spine negative for fractures Rpt CTH stable No NSGY indicated No coagulopathy on labs or per history S/p Keppra 1gm load; continue 500mg q12h x7d for sz ppx; 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 Home meds: On primidone 50 mg HS for seizures-restarted Trazodone 50 mg HS ( per pt for insomnia) restarted Cymbalta 60 mg every day-restarted ======= CARDIOVASCULAR CV Exam: sinus tachycardia Temp: [35.7 ?C (96.2 ?F)-37 ?C (98.6 ?F)] 35.7 ?C (96.2 ?F) Heart Rate: [81-102] 92 Resp: [15-19] 17 BP: (105-142)/(55-94) 142/94 VS Parameters: SBP<150 PRN hydralazine, labetalol Trop negative EKG Sinus Tachycardia 24hr tele to r/o arrhythmias Home meds: Carvedilol 6.25 mg BID Lasix 40 mg qd-holding no S&S of edema present, no sob Spironolactone 25 mg every day-holding ======= PULMONARY Pulm Exam: CTAB on room air w/ spO2>94% ======= GASTROINTESTINAL alcoholic cirrhosis poa GI Exam: soft, non-distended, present bowl sounds Nutrition: Current Order: Adult Diet Regular GI ppx: home PPI protonix bowel regimen: senna last 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 Lab Results Component Value Date ALT 19 05/25/2024 AST 59 (H) 05/25/2024 Alkaline Phosphatase 137 (H) 05/25/2024 Bilirubin Total 1.37 (H) 05/25/2024 Home meds: Pepcid 20 mg restarted ======= RENAL Hyponatremia, on admit Intake/Output Summary (Last 24 hours) at 05/25/2024 1848 Last data filed at 05/25/2024 0400 Gross per 24 hour Intake 240 ml Output -- Net 240 ml Results from last 7 days Lab Units 05/25/2423605/24/24 0838 05/24/2442405/23/24 0155 SODIUM mEq/L 136 133* 134* 134* POTASSIUM mEq/L 3.8 3.1* 3.0* 3.1* CHLORIDE mEq/L 98 -- 94* 97* CO2 mEq/L 28.8 -- 28.0 26.0 BUN mg/dL 10 -- 11 7* CREATININE mg/dL 1.73* -- 1.69* 1.58* Electrolytes WNL No IVF Voids ======= INFECTIOUS DISEASE Temp (24hrs), Av.6 ?C (97.8 ?F), Min:35.7 ?C (96.2 ?F), Max:37 ?C (98.6 ?F) Results from last 7 days Lab Units 05/25/2423405/24/2442405/23/24 0155 WBC 10*3/uL 3.88* 5.98 8.36 UA ordered Monitor trend fever curve and WBC no ABX indicated ======= HEMATOLOGIC Thrombocytopenia, on admit Results from last 7 days Lab Units 05/25/2423405/24/2442405/23/24 0155 HEMOGLOBIN g/dL 10.4* 12.0* 13.3 PLATELETS MANUAL 10*3/uL 65* -- -- PLATELETS 10*3/uL 57* 80* 90* INR -- 1.11 1.19* PTT Seconds -- 28.1 31.1 TEG negative No coagulopathy on labs or per history DVT ppx: SCDs; start sc heparin 24hr post stable CTH Platelet goal >50 given cirrhosis, check man count ======= ENDOCRINE Hyperlipidemia poa Hypokalemia poa Results from last 7 days Lab Units 05/25/24 0237 05/24/24 0425 05/23/24 0155 GLUCOSE mg/dL 103* 87 91 HEMOGLOBIN A1C % -- 5.57 -- BG goal 80-180 medium-dose ISS Home meds: Crestor 40 mg HS-restarted Klor-con 20 mEq TID restarted ======= MUSCULOSKELETAL AND INTEGUMENTARY right fibular fracture and posterior malleolus fracture. Skin Exam: warm, dry, intact Ortho conuslted for right fibular fracture and posterior malleolus fracture.-->surgery outpt ======= Code Status: Full Code Dispo: pending evals, possible dc tomorrow? Care plan d/w patient -[facility] [place] [facility] Team IMU/Floor LETA Ph #[phone] (available 15/11), #[phone] (available 6:30a - 4:30p) Neuro ICU White Team Ph #[phone] The patient was seen and examined by me at a separate time from the LETA. I also reviewed the documentation and agree with the documented findings and plan of care. Additionally, I was directly involved in the management of the patient and provided the substantive portion of this visit, including examining the patient, obtaining history, and medical decision-making. [facility] 2024-05-24 17:37:33 Neurocritical Care Consultation Note Consulted by NSGY for medical mgmt of TBI History Of Present Illness Beny Aden, 58 y.o. male with PMH of alcohol withdrawal, PTSD, alcoholic cirrhosis, newly diagnosed seizure disorder (3 lifetime seizures reported good compliance with primidone 50 mg) Denies AC/AP use, recent trauma in March , who presented s/p mechanical trip and fall in which his "legs gave out" and suffered a right fibular fracture and posterior malleolus fracture. Initial CTH L frontal tSAH with no MLS. NSGY following. Patient admitted to for closer monitoring and medical management of TBI. Of note patient had prior trauma back in March which resulted in orbital fracture and persistent diplopia. Interval Events: 05/24: right ankle placed in cast, Na lower than baseline Past Medical History has no past medical history on file. Surgical History has a past surgical history that includes CT angiogram neck (10/06/2022) and Rib fracture surgery (Right, 10/08/2022). Family History No family history on file. Social History Social History Tobacco Use Smoking status: Every Day Allergies Nsaids Home Medications Medications Prior to Admission Medication Sig Dispense Refill Last Dose/Taking albuterol HFA 90 mcg/act inhaler Inhale 2 puffs every 6 hours if needed for wheezing. carvedilol (Coreg) 6.25 MG tablet Take 6.25 mg by mouth in the morning and 6.25 mg in the evening. Take with meals. coenzyme Q-10 100 MG capsule Take 100 mg by mouth 1 time each day. DULoxetine (Cymbalta) [address] capsule Take 60 mg by mouth 1 time each day. Do not crush or chew. ferrous gluconate (Fergon) 324 (38 Fe) MG tablet Take 324 mg by mouth 3 times a week. folic acid (Folvite) 1 MG tablet Take 1 mg by mouth 1 time each day. furosemide (Lasix) 40 MG tablet Take 40 mg by mouth 1 time each day. gabapentin (Neurontin) 100 MG capsule Take 100 mg by mouth in the morning and 100 mg at noon and 100 mg in the evening. ipratropium-albuterol (Duo-Neb) 0.5-2.5 mg/3 mL nebulizer solution Take 3 mL by nebulization in the morning and 3 mL at noon and 3 mL in the evening. melatonin 5 MG tablet Take 10 mg by mouth at bedtime. methocarbamol (Robaxin) 750 MG tablet Take 750 mg by mouth in the morning and 750 mg in the evening. mirtazapine (Remeron) 30 MG tablet Take 30 mg by mouth at bedtime. Multiple Vitamin (multivitamin) tablet Take 1 tablet by mouth 1 time each day. ondansetron (Zofran) 4 MG tablet Take 4 mg by mouth every 12 hours if needed for nausea or vomiting. pantoprazole (ProtoNix) 40 MG EC tablet Take 40 mg by mouth in the morning. Take before meals. Do not crush, chew, or split. potassium chloride CR (Klor-Con M20) 20 MEQ ER tablet Take 20 mEq by mouth in the morning and 20 mEq at noon and 20 mEq in the evening. Do not crush or chew.. primidone (Mysoline) 50 MG tablet Take 50 mg by mouth at bedtime. rosuvastatin (Crestor) 40 MG tablet Take 40 mg by mouth 1 time each day. spironolactone (Aldactone) 25 MG tablet Take 25 mg by mouth 1 time each day. testosterone cypionate (Depo-Testosterone) 200 MG/ML injection Inject 200 mg into the shoulder, thigh, or buttocks every 7 days. TUESDAY traZODone (Desyrel) 50 MG tablet Take 50 mg by mouth at bedtime. Review of Systems ROS all negative except those noted in HPI Further clinical exam documented under Impression and Plan by systems. ======= ASSESSMENT AND PLAN Beny Aden, 58 y.o. male with PMH of alcohol withdrawal, PTSD, alcoholic cirrhosis, newly diagnosed seizure disorder (3 lifetime seizures, reported good compliance with Keppra) and recent trauma in March , who presented on 05/23/2024 NEUROLOGIC Left frontal tSAH no MLS New diagnosed sz poa Neuro Exam: GCS: E4 Eyes open spontaneously, V5 Speech orientated, M6 Follows commands MS: AAO x4, following commands, speech fluent, no dysarthria, naming intact, no neglect CN: L pupil 3, R pupil 3, EOMI, VFF, face symmetric Motor: No drift, 5/5 strength throughout Coordination: FNF no dysmetria Sensory: intact to light touch throughout Gait: deferred initial CTH revealed Left frontal tSAH no [facility] CT C-spine negative for fractures Rpt CTH stable No NSGY indicated No coagulopathy on labs or per history S/p Keppra 1gm load; continue 500mg q12h x7d for sz ppx; 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 Home meds: On primidone 50 mg HS for seizures-restarted Trazodone 50 mg HS ( per pt for insomnia) restarted Cymbalta 60 mg every day-restarted ======= CARDIOVASCULAR CV Exam: sinus tachycardia Temp: [36.9 ?C (98.4 ?F)-37.4 ?C (99.3 ?F)] 36.9 ?C (98.4 ?F) Heart Rate: [87-117] 105 Resp: [13-22] 18 BP: (110-165)/(57-89) 132/82 VS Parameters: SBP<150 PRN hydralazine, labetalol Trop negative EKG Sinus Tachycardia 24hr tele to r/o arrhythmias Home meds: Carvedilol 6.25 mg BID Lasix 40 mg qd-holding no S&S of edema present, no sob Spironolactone 25 mg every day-holding ======= PULMONARY Pulm Exam: CTAB on room air w/ spO2>94% ======= GASTROINTESTINAL alcoholic cirrhosis poa GI Exam: soft, non-distended, present bowl sounds Nutrition: Current Order: Adult Diet Regular GI ppx: home PPI protonix bowel regimen: senna last 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 Lab Results Component Value Date ALT 22 05/24/2024 AST 65 (H) 05/24/2024 Alkaline Phosphatase 132 (H) 05/24/2024 Bilirubin Total 1.97 (H) 05/24/2024 Home meds: Pepcid 20 mg restarted ======= RENAL Hyponatremia, on admit Intake/Output Summary (Last 24 hours) at 05/24/2024 1737 Last data filed at 05/24/2024 1200 Gross per 24 hour Intake -- Output 1 ml Net -1 ml Results from last 7 days Lab Units 05/24/24 0838 05/24/24 0425 05/23/24 0155 SODIUM mEq/L 133* 134* 134* POTASSIUM mEq/L 3.1* 3.0* 3.1* CHLORIDE mEq/L -- 94* 97* CO2 mEq/L -- 28.0 26.0 BUN mg/dL -- 11 7* CREATININE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 Velazquez RN Within the last year, have y ou been kicked, hit, slapped, or otherwise physically hurt by your partner or ex-partner? No 05/23/2024 5:19 PM Hunter Velazquez RN * * Over the past 2 weeks, how often have you been bothered by any of the following problems? Question Answer Date of Assessment Author Little interest or pleasure in doing things Not at all 05/23/2024 5:00 PM Hunter Velazquez RN Feeling down, depressed, or hopeless Not at all 05/23/2024 5:00 PM Hunter Velazquez RN Patient Health Questionnaire -2 Score 0 05/23/2024 5:00 PM Hunter Velazquez RN * * Calculated C-SSRS Risk Score (Lifetime/Recent) Answer Date of Assessment Author No Risk Indicated 05/28/2024 8:00 AM Luba Smith RN * In the past month, have you... Question Answer Date of Assessment Author Had nightmares about the maia nts or thought about the events when you did not want to? No 05/23/2024 5:00 PM Hunter Velazquez RN Tried hard not to think abou t the events or went out of your way to avoid situations that reminded you of the events? No 05/23/2024 5:00 PM Hunter Velazquez RN Been constantly on guard, wa tchful, or easily startled? No 05/23/2024 5:00 PM Hunter Velazquez RN [place] numb or detached from p eople, activities, or your surroundings? No 05/23/2024 5:00 PM Hunter Prasad RN [place] guilty or unable to sto p blaming yourself or others for the events or any problems the events may have caused? No 05/23/2024 5:00 PM Hunter Velazquez RN * [place] Suicide Severity Rating Scale (Screener/Recent Self-Report) Question Answer Date of Assessment Author 1. Wish to be (Past 1 Month) No 025 8:00 AM Luba Smith RN 2. Non-Specific Active Suici yunior Thoughts (Past 1 Month) No 05/28/2024 8:00 AM Jolie Smith RN 6. Suicidal Behavior (Lifetime) No 8:00 AM AUTOMATION AND CONTROLS SUPERVISOR Luba Chong RN * Primary Care PTSD Score Question Answer Date of Assessment Author Primary Care PTSD Total Score 1 05/23/2024 5:00 PM Hunter Velazquez RN [place] [id number] 16:26:44* Vladimir Downs, OT - 05/31/2024 3:34 PM AUTOMATION AND CONTROLS SUPERVISOR Treatment Session Note Patient Name: Beny Aden Today's Date: 05/31/2024 Preferred Language: Brazilian Assessment & Plan Pt tolerates session well despite pain. Agreeable to tx. Supine>EOB w/ supervision. Request to do RLE ROM exercises. Performed towel dowel exercise while eating EOB. Addressed pt concerns regarding ADLs, swelling, and HEP. Demos continued deficits in limited activity tolerance , standing balance, and pain which impacts pt's ability to engage in ADLs and mobility. Pt remains below baseline. Pt would benefit from continued skilled OT services to improve functional performance and safety. Assessment: OT Assessment Results: Impaired ADL status, Impaired endurance, Impaired safe judgment during ADL Prognosis: Good Barriers to Discharge: Medical diagnosis Evaluation/Treatment Tolerance: Patient tolerated treatment well Medical Staff Made Aware: Yes Strengths: Support and attitude of living partners Precautions: UE Weight Bearing Status: fwb LE Weight Bearing Status: NWB RLE Braces Applied: RLE splint donned Plan: Treatment Plan/Goals Established with Patient/Caregiver: Yes Treatment Interventions: ADL retraining, Endurance training, Patient/family training OT Planned Treatments: Activities of Daily Living OT Plan: Skilled OT OT Frequency: 2-4 times per week until discharge OT Duration: Discharge Equipment Recommended: (pt requests elevated toilet. Educated regarding elevated toilet seat. Pt states he has one but is not big enough to support pt) Subjective "What should I do at home to help" Pain: Pain Assessment: DVPRS (05/31/2024 1:09 PM) Pain Score: 9 (05/31/2024 10:23 AM) Pain Type: Acute pain (05/31/2024 1:09 PM) Pain Location: Head (05/31/2024 1:09 PM) Pain Orientation: Right (05/30/2024 11:00 PM) Pain Radiating Towards: foot (05/30/2024 11:00 PM) Pain Descriptors: Dull (05/31/2024 1:09 PM) Pain Frequency: Constant/continuous (05/31/2024 1:09 PM) Objective = Chart reviewed and RN cleared pt for therapy. = Pt presents semi-harden in bed agreeable to OT tx and educated on rationale for tasks performed in tx. = supine>EOB = RLE ROM exercises w/ hip, knee, and toes = towel dowel = empathetically listened to pt concerns = addressed concerns = supine>EOB = Pt left semi-harden in bed w/ RLE elevated, call gray, needs met, VSS. RN notified. Vital Signs: 05/31/2024 4:42 AM 05/31/2024 4:43 AM 05/31/2024 8:22 AM 05/31/2024 8:23 AM 05/31/2024 9:00 AM 05/31/2024 11:35 AM 05/31/2024 11:36 AM Vitals Systolic 131 144 135 Diastolic 85 88 85 Heart Rate 77 86 87 87 Temp 36.7 ?C (98.1 ?F) 36.6 ?C (97.8 ?F) 36.8 ?C (98.3 ?F) Resp 17 18 18 17 Treatment Self-Care: Self Care/Home Management (ADLs) Time Entry: 10 ADL Comments: education for home and for d/c. ADL adaptive techniques Bed Mobility: Bed Mobility Bed Mobility: Yes Bed Mobility 1 Level of Assistance 1: Supervision/touching assistance Bed Mobility To/From: Supine to sit on EOB, Supine to Prone Assistive Devices And Adaptive Equipments: Bed rail Therapeutic Exercise Therapeutic Exercise Therapeutic Exercise Time Entry: 13 Therapeutic Exercise Activity 1: towel dowel of shoulder flexion, chest press, figure 8 (closewise and counterclock), clockwise and counter clockwise. 10 each AM-PAC Daily Activity: Putting on and taking off regular lower body clothing: A Lot Bathing (including washing, rinsing, drying): A Lot Toileting, which includes using toilet, bedpan or urinal: A Little Putting on and taking off regular upper body clothing: A Little Taking care of personal grooming such as brushing teeth: A Little Eating Meals: None AM-PAC Daily Activity Raw Score: 17 Mobility Highest Level of Mobility Performed (JH-HLM): Sat at edge of bed Patient Education: Education Documentation No documentation found. Education Comments No comments found. Goals: Encounter Goals Encounter Goals (Active) Pt will demo ability to perform LB dressing w/ Min A while seated utilizing adaptive equipment PRN. (Progressing) Start: 05/24/24 Expected End: 06/09/24 Patient will demonstrate adequate strength to reduce risk of falls or injury associated with fall; reduce bone/mineral loss, prevent obesity, regain preserve ADL independence. (Progressing) Start: 05/24/24 Expected End: 06/09/24 Pt will demo ability to perform toilet transfer w/ supervision utilizing adaptive device PRN. (Progressing) Start: 05/24/24 Expected End: 06/09/24 Patient will improve activity tolerance to do func standing activ x10min to increase indep and safety for IADL'S in the home by discharge. (Progressing) Start: 05/24/24 Expected End: 06/09/24 Treatment Note: If this is the last documented treatment, then it will signify discharge from acute care prior to discharge from the therapy service and will serve as the discharge summary. Vladimir Downs OT MATION AND CONTROLS SUPERVISOR * Elsa Alarcon PTA - 05/31/2024 9:54 AM AUTOMATION AND CONTROLS SUPERVISOR Encounter Note Patient Name: Beny Aden Today's Date: 05/31/2024 Missed Treatment Time and Reason Pt declined tx. Elsa Alarcon PTA MATION AND CONTROLS SUPERVISOR * Katie Clarke MD - 05/31/2024 9:49 AM AUTOMATION AND CONTROLS SUPERVISOR Images from the original note were not included. Department of Anesthesiology, Critical Care, and Pain Medicine Acute Pain Medicine Service (APMS) Progress Note Assessments/Recommendations: Beny Aden is a 58 y.o. male with PMH of etOH withdrawal, PTSD, alcoholic cirrhosis, newly diagnosed seizure disorder. Now s/p ORIF R ankle from injury sustained on 05/23/24. APMS following for block check opioid naive Blocks received (05/29): 1. R pop sci & saph SS w/ dex - Block site clean/dry/intact - Residual numbness from peripheral nerve block: No - Residual Motor block: No - Plan: PNB has resolved completely without residual numbness or motor blockade, no additional PNBs indicated at this time #Acute Post-surgical/traumatic pain - No residual sensory or motor deficits noted; no acute anesthetic complications noted - Continue pain control per primary team - APMS will sign off I have reviewed the patient's labs and diagnostics and the above plan indicates whether adjustments were made to the patient's pain regimen in response to pertinent findings. SUBJECTIVE: Numbness gone away completely and now feeling some pain. HPI: Beny Aden is a 58 y.o. male with PMH of etOH withdrawal, PTSD, alcoholic cirrhosis, newly diagnosed seizure disorder. Now s/p ORIF R ankle from injury sustained on 05/23/24. Patient is an opioid naive PRN requirements in last 12h: See MAR Location: Type of Pain: acute post-surgical/trauma Onset: post-surgical/trauma Frequency: intermittent Alleviating Factors: rest Aggravating Factors: movement/strain Pain is described as: mild Pain Scores: - Static: 2 /10 - Dynamic: /10 - Goal per patient: Objective Last Recorded Vitals Blood pressure 144/88, pulse 86, temperature 36.6 ?C (97.8 ?F), resp. rate 18, height 1.8 m (5' 10.87"), SpO2 97%. Review of Systems: Positive in bold, otherwise negative for: Gen: malaise, fever/chills Skin: rashes, pruritus Eyes: blurry vision, blindness Ears/Nose/Throat: tinnitus, dysphagia, perioral numbness Resp: cough, SOB, wheezes CV: chest pain, palpitations GI: abdominal pain, vomiting, nausea, constipation MSK: arthralgias, effusions Neuro: headache, paresthesias, bowel/bladder incontinence Psych: depression, SI/HI, sleep disturbances Exam: General: Well-appearing, NAD Head: Normocephalic atraumatic Eyes/ENT: EOMI, normal facies Lungs: breathing non-labored, regular Chest: atraumatic Abdomen: Non-distended Neurologic: Alert/Oriented, appropriate, clear speech Psych: Mood congruent affect, responds appropriately to questions Skin: no Rash, no lesions MSK: right [body part] Inspection: Dressing c/d/i. Sensation: Intact Motor: Intact Sciatic Block Check (right (+) Big toe dorsiflexion (extensor hallucis longus [EHL], extensor digitorum longus [EDL]) + Foot dorsiflexion - (Deep peroneal nerve L5, S1) (+) Big toe/ foot plantar flexion (Tibial nerve S1, S2) 05/30/2024 8:15 PM 05/31/2024 12:28 AM 05/31/2024 12:30 AM 05/31/2024 4:42 AM 05/31/2024 4:43 AM 05/31/2024 8:22 AM 05/31/2024 8:23 AM Vitals Systolic 104 131 144 Diastolic 64 85 88 Heart Rate 83 92 77 86 Temp 29.3 ?C (84.8 ?F) 36.7 ?C (98.1 ?F) 36.6 ?C (97.8 ?F) Resp 23 14 17 18 Lab Results Component Value Date Creatinine Lvl 1.29 05/31/2024 BUN 8 (L) 05/31/2024 Sodium Lvl 139 05/31/2024 Potassium Lvl 4.1 05/31/2024 Chloride Lvl 105 05/31/2024 CO2 Lvl 24.6 05/31/2024 Lab Results Component Value Date WBC 5.51 05/31/2024 Hgb 10.6 (L) 05/31/2024 Hct 35.0 (L) 05/31/2024 MCV 99.2 (H) 05/31/2024 Plt Count 106 (L) 05/31/2024 Lab Results Component Value Date ABO/Rh O POS 10/12/2022 Lab Results Component Value Date ALT 11 05/31/2024 AST 45 (H) 05/31/2024 Alkaline Phosphatase 128 (H) 05/31/2024 Bilirubin Total 0.84 05/31/2024 Lab Results Component Value Date INR 1.10 05/28/2024 INR 1.11 05/24/2024 INR 1.19 (H) 05/23/2024 Prothrombin Time (PT) 14.4 05/28/2024 Prothrombin Time (PT) 14.5 05/24/2024 Prothrombin Time (PT) 15.3 (H) 05/23/2024 Lab Results Component Value Date PTT 28.1 05/24/2024 No results found for this or any previous visit from the past 365 days. Encounter Date: 05/23/24 ECG 12 lead (arrhythmia) Result Value Ventricular Rate 121 Atrial Rate 121 AK Interval 136 QRS Duration 116 QT/QTc 338 QTc Calculation 479 P-Millis 29 R-Millis 238 T-Millis 20 Impression SINUS TACHYCARDIA ANTEROLATERAL INFARCTION AGE UNDETERMINED ABNORMAL ECG WHEN COMPARED WITH ECG OF 06-OCT-2022 06:52, THE AXIS HAS SHIFTED TOWARD THE RIGHT ANTEROLATERAL INFARCTION IS NOW PRESENT Confirmed by Domi Victoria ([id number]) on 05/24/2024 12:22:57 PM Cosigned by Perla Severino MD at 05/31/2024 2:50 PM AUTOMATION AND CONTROLS SUPERVISOR MATION AND CONTROLS SUPERVISOR MATION AND CONTROLS SUPERVISOR Associated attestation - Perla Severino MD - 05/31/2024 2:50 PM AUTOMATION AND CONTROLS SUPERVISOR I saw and evaluated the patient. I agree with the findings and the plan of care as documented in the resident's note. * Rhonda See LMSW - 05/31/2024 9:43 AM AUTOMATION AND CONTROLS SUPERVISOR 05/31/24 0900 Discharge Planning Patient expects to be discharged to: Home Expected Discharge Disposition Services Discharge Planning Comments Family and [employer] had questions about Pt filling Lovenox. [place] is reporting Lovenox and new meds needs to be called into Pt [place] physician, Dr. Rivas, . If call is placed to [place] physician for medication request early, the [place] pharmacy will work to fill same day or next day. Pharmacy cannot guarantee meds will be filled if they haven't been called in to Pt physician and [facility]. SW informed [facility] via chat. (Pt spouse reports she's given injections/shots to Pt before and reports being able to assist Pt with Lovenox.) Discharge Planning Status In Progress Rhonda See LMSW Director Of Planning Case Management Department (O)[phone] (F)[phone] [email or web address] MATION AND CONTROLS SUPERVISOR * Martin Nickerson MD - 05/31/2024 7:47 AM AUTOMATION AND CONTROLS SUPERVISOR ORS Progress Note Subjective: No acute events overnight. Patient resting comfortably in bed, reports pain is moderately well controlled. He states the nerve block wore off and he was unable to sleep well overnight due to pain. Objective: Vitals: 05/31/24 0030 05/31/24 0442 05/31/24 0442 05/31/24 0443 BP: 131/85 Pulse: 92 77 Resp: 14 17 Temp: (!) 29.3 ?C (84.8 ?F) 36.7 ?C (98.1 ?F) SpO2: 97% 99% Exam: Gen: No distress, A&Ox3 Resp: Stable on room air, equal chest expansion bilaterally CV: Regular rate, extremities well perfused RLE Inspection: Splint in place, dressings c/d/i Palpation: TTP at wound site, compartments soft and compressible Sensation: Decreased but improved sensation to SPN/DPN/tibial/saph/sural Motor: Intact EHL/FHL Vascular: Foot warm and well perfused with cap refill <2s in all toes Imaging: No results found. Assessment: 58 y.o. male s/p ORIF R ankle on 05/29/24. Plan: - Weight bearing status: RLE NWB - Pain control per primary - DVT PPx: TEDS, SCDs, and okay for DVT chemoppx per primary - PT/OT consulted - Pending ORS surgeries: None at this time Dispo: Clear for discharge from ORS perspective when pt has pain controlled with PO pain meds and clears PT/OT. Please follow up with Dr. Tony Back in 2 weeks. Call [phone] for appt. Please Epic Chat or page [phone] with questions. Please call [phone]) with emergent concerns overnight. Martin Nickerson MD [facility] Orthopedic Surgery PGY-2 MATION AND CONTROLS SUPERVISOR * Lyric Olivo, PT - 05/30/2024 9:40 AM AUTOMATION AND CONTROLS SUPERVISOR Physical Therapy Re-evaluation and Treatment Note Patient Name: Beny Aden Today's Date: 05/30/2024 Preferred Language: Brazilian Assessment & Plan Assessment: Prognosis: Excellent Evaluation/Treatment Tolerance: Patient tolerated treatment well Medical Staff Made Aware: Yes Strengths: Ability to acquire knowledge, Attitude of self, Support and attitude of living partners Pt seen for PT re-assessment on POD 1 without significant change in functional status. Primary impairments include pain, decreased balance , decreased endurance and mildly decreased RLE strength ( functional strength present ) . Pt also with new impairment in (R) LE sensation (decreased R foot light touch , deep pressure and proprioception sensation) . However, this does not significantly affect mobility . Pt performs bed mobility independently. When out of bed, supervision <>contact guard assistance is required for transfers , ambulation and wheelchair mobility. Pt demonstrates some impulsivity and benefits from intermittent cues for safety. Recommend supervision when out of bed. Additionally, pt's balance, visual and neurological impairment place patient at elevated risk for falls and he is unable to safely use axillary crutches at this time. Also recommend use of a rolling walker and home health PT for home safety assessment. Plan: Treatment Plan/Goals Established with Patient/Caregiver: Yes Treatment/Interventions: Balance training, Bed mobility training, Caregiver training, Functional activities, Gait training, Wheelchair assessment and management, Transfer training, Therapeutic exercises, Posture/Body mechanics baring, Patient education, Orthotic training, Neuromuscular re-education, Manual therapy, Pain management PT Plan: Skilled PT PT Frequency: 2-3 times per week until discharge Equipment Recommended: DME wheelchair, Walker- rolling (pt reports he owns required DME) Discharge Recommendation : Home Health PT Subjective " I can't feel the toes on my R foot " Current Problem: Patient presents for Physical Therapy re-evaluation on POD 1 s/ p R ankle ORIF Pain: Pain Assessment: 0-10 Pain Score: 7 Pain Type: Acute pain Pain Location: Ankle Pain Orientation: Right Pain Descriptors: Aching Vital Signs: Patient Vitals for the past 4 hrs: BP MAP (mmHg) Pulse Resp SpO2 05/30/24 1129 -- -- (!) 102 17 100 % 05/30/24 1128 131/80 97 -- -- -- Home Living: Type of Home: House Lives With: Spouse Home Adaptive Equipment: Walker rolling or standard, Wheelchair-manual, Cane (Rollator) Home Living Comments: Pt received assistance from spouse as needed Home Layout: Multi-level Home Access: Elevator Prior Level of Function: Level of [place]: Ambulated with assistive device (comment) Receives Help From: Family ADL Assistance: Needs assistance Homemaking Assistance: Needs assistance Leisure: Fishing Prior Function Comments: Pt reports his level of function fluctuates daily Objective General Visit Information: Family/Caregiver Present: No Others Present: PT tech: Clifton Balderas Precautions: UE Weight Bearing Status: FWB LE Weight Bearing Status: NWB RLE Medical Precautions: Fall; Standard, SBP <150 Braces Applied: Short Leg Splint in place Cognition: Overall Cognitive Status: Impaired Behavior/Cognition: Alert, Impulsive, Cooperative Arousal/Alertness: Appropriate responses to stimuli Orientation Level: Oriented X4 Following Commands: (WFL) Safety Judgment: Decreased awareness of need for safety Awareness of Deficits: Fully aware of deficits Attention: Appears intact General Assessments: Activity Tolerance Activity Tolerance Endurance: Endurance does not limit participation in activity Sitting Balance: Supports self independently with both upper extremities Early Mobility/Exercise Safety Screen: Proceed with mobilization - No exclusion criteria met Sensation Sensation Light Touch: LLE Intact (Intact at RLE except at toes ( 1-4 visible ) . Unable to test distal LE secondary to presence of dressing .) Deep Pressure: LLE Intact (RLE intact except at R foot) Proprioception Proprioception Proprioception: LLE Intact (RLE intact except at R foot) Perception Perception Inattention/Neglect: Appears intact Initiation: Appears intact Motor Planning: Appears intact Perseveration: Not present Coordination Coordination Movements are Fluid and Coordinated: Yes Toe Taps: Left intact (RLE not testing 2/2 post op restrictions + dressing) Postural Control Postural Control Postural Control: Deficits on evaluation (WFL in sitting. Impaired in dynamic standing.) Balance- Sitting Static Sitting-Balance Support: Feet supported, No upper extremity supported Level of Assistance: Independent Balance- Standing Static Standing-Balance Support: Right upper extremity supported, Left upper extremity supported Static Standing-Level of Assistance: Supervision/touching assistance Dynamic Standing-Balance Support: Left upper extremity supported, Right upper extremity supported Dynamic Standing-Level of Assistance: Supervision/touching assistance Functional Assessments: Bed Mobility Bed Mobility 1: Level of Assistance 1: Independent Bed Mobility To/From: Roll left/right Bed Mobility 2: Level of Assistance 2: Independent Bed Mobility To/From: Supine to sit on EOB Bed Mobility 3: Level of Assistance 3: Independent Bed Mobility To/From: Sitting EOB to supine Transfers Transfers 1: Level of Assistance 1: Supervision/touching assistance Trials/Comments 1: Maintains NWB status without assistance Transfer To/From: Meo-bi-Hvoga/Fbmoc-kp-Hyh Assistive Devices And Adaptive Equipments: Walker, front-wheeled Transfers 2: Technique 2: Via walking Level of Assistance 2: Supervision/touching assistance Trials/Comments 2: Maintains NWB status without assistance Transfer To/From: Chair, Wheelchair Assistive Devices And Adaptive Equipments: Walker, front-wheeled Gait Gait Training Time Entry: 8 Gait Training Activity 1: Distance (enter in feet): 50 feet Assistive Devices And Adaptive Equipments: Walker, front-wheeled Level of Assistance 1: Supervision/touching assistance Gait Training Activity 1 Comment: hop to pattern , maintains NWB without cues Wheelchair Wheelchair Activities Wheelchair Management Time Entry: 10 Wheelchair Type: (Manual wheelchair) Wheelchair Type: Manual Level of Assistance: Supervision/touching assistance Wheelchair Parts Management: Yes All Wheelchair Parts Management: Brakes Propulsion: Yes Propulsion Type 1: Manual Level 1: Level Method 1: Manual UE Propulsion Level of Assistance 1: Independent Propulsion 1: Propulsion Type 1: Manual Level 1: Level Method 1: Manual UE Propulsion Level of Assistance 1: Independent Propulsion 2: Propulsion Type 2: Manual Level 2: Ramp (low incline) Method 2: Manual UE Propulsion Level of Assistance 2: Supervision/touching assistance Extremity Assessments: Right Lower Extremity RLE Assessment RLE Assessment: Within Functional Limits (except RLE noted testing at ankle 2/2 post-op restrictions) Left Lower Extremity LLE Assessment LLE Assessment: Within Functional Limits (Grossly 4/5 in anti-gravity muscles in sitting) Overall Lower Extremity/Trunk Tone Overall Lower Extremity/Trunk Tone Left Lower Extremity: Normal Right Lower Extremity: Normal Trunk: Normal Activity Tolerance: Endurance: Endurance does not limit participation in activity Sitting Balance: Supports self independently with both upper extremities Early Mobility/Exercise Safety Screen: Proceed with mobilization - No exclusion criteria met Cognition Overall Cognitive Status: Impaired Behavior/Cognition: Alert, Impulsive, Cooperative Arousal/Alertness: Appropriate responses to stimuli Orientation Level: Oriented X4 Following Commands: (WFL) Safety Judgment: Decreased awareness of need for safety Awareness of Deficits: Fully aware of deficits Attention: Appears intact Treatment Details Pt received supine in bed in NAD. All lines appreciated and managed prior to mobility Pt transitioned from supine to sitting EOB independently At EOB, pt maintains static and dynamic sitting balance in midliine independently w/o UE support Pt then transfers sit to stand with contact guard using RW. Verbal cue required to recall NWB status during transfer Pt then ambulated in hallway with RW and supervision <>contact guard assistance Pt then returned to room and transferred into w/c. Pt performed wheelchair mobility in hallway with supervision on even and uneven surfaces ( approx. 400 feet) Pt then returned to room and elected to transfer back to bed Pt educated re:decreasing use of pillows behind R knee to maintain knee extension ROM Pt then left in bed in NAD. All lines intact and all needs in reach. Post-Therapy Checklist: Pt supine in bed, Bed/chair alarm on, Call light within reach, All lines/lead intact, and Vital signs stable AM-PAC Basic Mobility: Turning in bed without bedrails: None Lying on back to sitting on edge of flat bed: None Bed to chair: A Little Standing up from chair: A Little Walk in room: A Little Climbing 3-5 stairs: A Lot Mobility Inpatient Raw Score: 19 JH-HLM Goal: 6 Mobility: Highest Level of Mobility Performed (JH-HLM) Walked 25 feet or more (i.e. walked outside of room) Modified [place] Modified Mami (mRS) Modified Mmai Score: Moderate disability. Requires some help, but able to walk unassisted. Pre-Morbid mRS: Moderate disability. Requires some help, but able to walk unassisted. Pre-Morbid mRS: Moderate disability. Requires some help, but able to walk unassisted. Patient Education: Education Documentation No documentation found. Education Comments No comments found. Goal: Encounter Goals Encounter Goals (Active) Patient will transfer bed to/from chair with supervision and least restrictive device to increase upright tolerance and optimize cardiorespiratory function (Progressing) Start: 05/24/24 Expected End: 06/07/24 Patient will ambulate 150 feet over level surfaces with supervision and least restrictive device in prep for household ambulation and community re-integrationn (Progressing) Start: 05/24/24 Expected End: 06/07/24 Patient will propel manual wheelchair 500 feet independently on unlevel surfaces using bilateral UE without adaptive aid independently (Progressing) Start: 05/24/24 Expected End: 06/07/24 Treatment Note: If this is the last documented treatment, then it will signify discharge from acute care prior to discharge from the therapy service and will serve as the discharge summary. Lyric Olivo PT, DPT MATION AND CONTROLS SUPERVISOR MATION AND CONTROLS SUPERVISOR MATION AND CONTROLS SUPERVISOR * Betty Parker MD - 05/30/2024 9:00 AM AUTOMATION AND CONTROLS SUPERVISOR Neurocritical Care Progress Note Consulted by NSGY for medical mgmt of TBI History Of Present Illness Beny Aden, 58 y.o. male with PMH of alcohol withdrawal, PTSD, alcoholic cirrhosis, newly diagnosed seizure disorder (3 lifetime seizures reported good compliance with primidone 50 mg) Denies AC/AP use, recent trauma in March , who presented s/p mechanical trip and fall in which his "legs gave out" and suffered a right fibular fracture and posterior malleolus fracture. Initial CTH L frontal tSAH with no MLS. NSGY following. Patient admitted to for closer monitoring and medical management of TBI. Of note patient had prior trauma back in March which resulted in orbital fracture and persistent diplopia. Interval Events: 05/24: right ankle placed in cast, Na lower than baseline 05/25: A&O x3-4. Reporting pain in right leg after placing weight on it overnight. Ortho notified repeat imaging ordered 05/26: patient would like to proceed with ORIF prior to discharge, pending timing for surgery; plt downtrending 05/27: plt improved to 75 today; R ORIF planned for Sunday 05/28: A&O x4. Reports pain is controlled with current regimen. Plan to OR tomorrow 05/29 for ORIF right ankle. cEEG negative seizures 05/29: OR fo ORIF right ankle 05/30: Lovenox started. A&O x4. Further clinical exam documented under Impression and Plan by systems. ASSESSMENT AND PLAN Beny Aden, 58 y.o. male with PMH of alcohol withdrawal, PTSD, alcoholic cirrhosis, newly diagnosed seizure disorder (3 lifetime seizures, reported good compliance with Keppra) and recent trauma in March , who presented on 05/23/2024 NEUROLOGIC Left frontal tSAH no MLS New diagnosed sz poa Neuro Exam: GCS: E4 Eyes open spontaneously, V5 Speech orientated, M6 Follows commands MS: AAO x4, following commands, speech fluent, no dysarthria, naming intact, no neglect CN: L pupil 3, R pupil 3, EOMI, VFF, face symmetric; eye patch in place Motor: weaker on LLE 4-/5 (in splint); otherwise full strength throughout Coordination: FNF no dysmetria Sensory: intact to light touch throughout Gait: deferred initial CTH revealed Left frontal tSAH no MLS CT C-spine negative for fractures Rpt CTH stable cEEG: negative for sz, discontinued No NSGY indicated No coagulopathy on labs or per history S/p Keppra 1gm load; continue 500mg q12h x7d for sz ppx; 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 Home meds: On primidone 50 mg HS for seizures-restarted Trazodone 50 mg HS ( per pt for insomnia) restarted Cymbalta 60 mg every day-restarted Gabapentin 100 mg po TID started for neuropathic pain CARDIOVASCULAR CV Exam: sinus tachycardia Temp: [36.3 ?C (97.4 ?F)-37.1 ?C (98.7 ?F)] 37.1 ?C (98.7 ?F) Heart Rate: [92-102] 92 Resp: [17-19] 17 BP: (109-158)/(78-99) 121/90 VS Parameters: SBP<150 PRN hydralazine, labetalol Trop negative EKG Sinus Tachycardia 24hr tele to r/o arrhythmias Home meds: Carvedilol 6.25 mg BID Lasix 40 mg qd-holding no S&S of edema present, no sob Spironolactone 25 mg every day-holding PULMONARY Pulm Exam: CTAB on room air w/ spO2>94% GASTROINTESTINAL alcoholic cirrhosis poa GI Exam: soft, non-distended, present bowl sounds Nutrition: Current Order: Adult Diet Regular GI ppx: home PPI protonix bowel regimen: senna last BM 05/30 Lab Results Component Value Date ALT 13 05/30/2024 AST 44 (H) 05/30/2024 Alkaline Phosphatase 121 (H) 05/30/2024 Bilirubin Total 0.78 05/30/2024 Home meds: Pepcid 20 mg restarted RENAL Hyponatremia, on admit Intake/Output Summary (Last 24 hours) at 05/30/20242000 Last data filed at 05/30/2024 1630 Gross per 24 hour Intake 480 ml Output 600 ml Net -120 ml Results from last 7 days Lab Units 05/30/2422005/29/2452605/28/24 0210 SODIUM mEq/L 135* 138 139 POTASSIUM mEq/L 4.6* 3.9 4.4 CHLORIDE mEq/L 103 104 104 CO2 mEq/L 23.8 24.5 27.6 BUN mg/dL 11 8* 8* CREATININE mg/dL 1.45* 1.42* 1.45* Electrolytes WNL No IVF Voids INFECTIOUS DISEASE Temp (24hrs), Av.7 ?C (98 ?F), Min:36.3 ?C (97.4 ?F), Max:37.1 ?C (98.7 ?F) Results from last 7 days Lab Units 05/30/2422005/29/2452605/28/24 0210 WBC 10*3/uL 5.69 5.31 5.00 UA noninfectious Monitor trend fever curve and WBC no ABX indicated HEMATOLOGIC Thrombocytopenia, on admit Results from last 7 days Lab Units 05/30/2422005/29/2452605/28/24 1344 05/28/24 0210 05/25/24 0235 05/24/24 0425 HEMOGLOBIN g/dL 10.8* 11.1* -- 10.9* < > 12.0* PLATELETS MANUAL -- -- -- -- < > -- PLATELETS 10*3/uL 98* 101* -- 85* < > 80* INR -- -- 1.10 -- -- 1.11 PTT Seconds -- -- -- -- -- 28.1 < > = values in this interval not displayed. Plt improved to 75 today, continue to monitor TEG negative No coagulopathy on labs or per history DVT ppx: SCDs; Lovenox 40 mg started for DVT ppx post surgical Platelet goal >50 given cirrhosis ENDOCRINE Hyperlipidemia poa Hypokalemia poa Results from last 7 days Lab Units 05/30/24 0221 05/29/24 0527 05/28/24 0210 05/25/24 0237 05/24/24 0425 GLUCOSE mg/dL 105* 108* 97 < > 87 HEMOGLOBIN A1C % -- -- -- -- 5.57 < > = values in this interval not displayed. BG goal 80-180 medium-dose ISS Home meds: Crestor 40 mg HS-restarted Klor-con 20 mEq TID restarted MUSCULOSKELETAL AND INTEGUMENTARY right fibular fracture and posterior malleolus fracture. Skin Exam: warm, dry, intact #Right ankle fracture - OSH splint removed and new splint applied 05/25 - RLE NWB - 05/[address] - avulsion fracture of a 23 mm fragment of the anterior lateral malleolus at the AITFL insertion with 12 mm displacement, mildly displaced oblique lateral malleolus fracture at the level of the distal syndesmosis, nondisplaced posterior malleolus fracture involving 12% of the articular Surface 05/25 right ankle Xray - unchanged minimal lateral translation of talus, unchanged oblique lateral malleolus fracture Code Status: Full Code Dispo: pending ORIF on 05/29 Care plan d/w patient [place] [place] IMU/Floor LETA Ph #[phone] (available 15/11), #[phone] (available 6:30a - 4:30p) Neuro ICU White Team Ph #[phone] The patient was seen and examined by me at a separate time from the LETA. I also reviewed the documentation and agree with the documented findings and plan of care. Additionally, I was directly involved in the management of the patient and provided the substantive portion of this visit, including examining the patient, obtaining history, and medical decision-making. MATION AND CONTROLS SUPERVISOR * Patti Solis LMSW - 05/30/2024 8:58 AM AUTOMATION AND CONTROLS SUPERVISOR 05/30/24 0800 Discharge Planning Patient expects to be discharged to: Home w/ OP Expected Discharge Disposition Services Discharge Planning Comments Barrier: Ortho recs pending, poss dc 05/30; ALBERTINA: 05/30 vs 05/31 Discharge Planning Status In Progress LOS: 2 Last Recorded Vitals: Blood pressure (!) 158/99, pulse 94, temperature 36.7 ?C (98.1 ?F), resp. rate 17, height 1.8 m (5' 10.87"), SpO2 99%. Current Diet: Adult Diet Regular DISCHARGE PLAN A: Home w/ OP DME: RW DISCHARGE PLAN B: Home Patti Solis LMSW, JYOTHI Traveling Sales Executive - Neuro Service Line MATION AND CONTROLS SUPERVISOR * Katie Clarke MD - 05/30/2024 8:35 AM AUTOMATION AND CONTROLS SUPERVISOR Images from the original note were not included. Department of Anesthesiology, Critical Care, and Pain Medicine Acute Pain Medicine Service (APMS) Progress Note Assessments/Recommendations: Beny Aden is a 58 y.o. male with PMH of etOH withdrawal, PTSD, alcoholic cirrhosis, newly diagnosed seizure disorder. Now s/p ORIF R ankle from injury sustained on 05/23/24. APMS following for block check opioid naive Blocks received (05/29): 1. R pop sci & saph SS w/ dex - Block site clean/dry/intact - Residual numbness from peripheral nerve block: Yes - Residual Motor block: Yes - Plan: PNB has not resolved completely , no additional PNBs indicated at this time #Acute Post-surgical/traumatic pain - residual sensory and motor deficits noted; no acute anesthetic complications noted - Continue pain control per primary team - APMS will continue to follow I have reviewed the patient's labs and diagnostics and the above plan indicates whether adjustments were made to the patient's pain regimen in response to pertinent findings. SUBJECTIVE: Cannot wiggle toes, and still numb HPI: Beny Aden is a 58 y.o. male with PMH of etOH withdrawal, PTSD, alcoholic cirrhosis, newly diagnosed seizure disorder. Now s/p ORIF R ankle from injury sustained on 05/23/24. Patient is an opioid naive PRN requirements in last 12h: See MAR Location: Type of Pain: acute post-surgical/trauma Onset: post-surgical/trauma Frequency: intermittent Alleviating Factors: rest Aggravating Factors: movement/strain Pain is described as: mild Pain Scores: - Static: - Dynamic: - Goal per patient: Objective Last Recorded Vitals Blood pressure (!) 158/99, pulse 94, temperature 36.7 ?C (98.1 ?F), resp. rate 17, height 1.8 m (5' 10.87"), SpO2 99%. Review of Systems: Positive in bold, otherwise negative for: Gen: malaise, fever/chills Skin: rashes, pruritus Eyes: blurry vision, blindness Ears/Nose/Throat: tinnitus, dysphagia, perioral numbness Resp: cough, SOB, wheezes CV: chest pain, palpitations GI: abdominal pain, vomiting, nausea, constipation MSK: arthralgias, effusions Neuro: headache, paresthesias, bowel/bladder incontinence Psych: depression, SI/HI, sleep disturbances Exam: General: Well-appearing, NAD Head: Normocephalic atraumatic Eyes/ENT: EOMI, normal facies Lungs: breathing non-labored, regular Chest: atraumatic Abdomen: Non-distended Neurologic: Alert/Oriented, appropriate, clear speech Psych: Mood congruent affect, responds appropriately to questions Skin: no Rash, no lesions MSK: right lower extremity Inspection: Dressing c/d/i. Sensation: numb Motor: no strength Sciatic Block Check (right (-) Big toe dorsiflexion (extensor hallucis longus [EHL], extensor digitorum longus [EDL]) - Foot dorsiflexion - (Deep peroneal nerve L5, S1) (-) Big toe/ foot plantar flexion (Tibial nerve S1, S2) -- unlikely able to test due to splint/cast: (-) Foot inversion (Tibial nerve L4, L5) (-) Foot eversion ( Superficial peroneal nerve L5, S1) 05/29/2024 2:30 PM 05/29/2024 2:45 PM 05/29/2024 4:03 PM 05/29/2024 8:18 PM 05/29/2024 11:32 PM 05/30/2024 7:50 AM 05/30/2024 7:51 AM Vitals Systolic 137 119 130 140 109 158 Diastolic 80 82 90 95 78 99 Heart Rate 95 95 90 101 94 94 Temp 36.4 ?C (97.6 ?F) 36.5 ?C (97.7 ?F) 36.7 ?C (98.1 ?F) Resp 10 17 Lab Results Component Value Date Creatinine Lvl 1.45 (H) 05/30/2024 BUN 11 05/30/2024 Sodium Lvl 135 (L) 05/30/2024 Potassium Lvl 4.6 (H) 05/30/2024 Chloride Lvl 103 05/30/2024 CO2 Lvl 23.8 05/30/2024 Lab Results Component Value Date WBC 5.69 05/30/2024 Hgb 10.8 (L) 05/30/2024 Hct 34.9 (L) 05/30/2024 MCV 97.8 (H) 05/30/2024 Plt Count 98 (L) 05/30/2024 Lab Results Component Value Date ABO/Rh O POS 10/12/2022 Lab Results Component Value Date ALT 13 05/30/2024 AST 44 (H) 05/30/2024 Alkaline Phosphatase 121 (H) 05/30/2024 Bilirubin Total 0.78 05/30/2024 Lab Results Component Value Date INR 1.10 05/28/2024 INR 1.11 05/24/2024 INR 1.19 (H) 05/23/2024 Prothrombin Time (PT) 14.4 05/28/2024 Prothrombin Time (PT) 14.5 05/24/2024 Prothrombin Time (PT) 15.3 (H) 05/23/2024 Lab Results Component Value Date PTT 28.1 05/24/2024 No results found for this or any previous visit from the past 365 days. Encounter Date: 05/23/24 ECG 12 lead (arrhythmia) Result Value Ventricular Rate 121 Atrial Rate 121 AK Interval 136 QRS Duration 116 QT/QTc 338 QTc Calculation 479 P-Millis 29 R-Millis 238 T-Millis 20 Impression SINUS TACHYCARDIA ANTEROLATERAL INFARCTION AGE UNDETERMINED ABNORMAL ECG WHEN COMPARED WITH ECG OF 06-OCT-2022 06:52, THE AXIS HAS SHIFTED TOWARD THE RIGHT ANTEROLATERAL INFARCTION IS NOW PRESENT Confirmed by Domi Victoria ([id number]) on 05/24/2024 12:22:57 PM Cosigned by Perla Severino MD at 05/30/2024 12:20 PM AUTOMATION AND CONTROLS SUPERVISOR MATION AND CONTROLS SUPERVISOR MATION AND CONTROLS SUPERVISOR Associated attestation - Perla Severino MD - 05/30/2024 12:20 PM AUTOMATION AND CONTROLS SUPERVISOR I was present with the resident during the history and exam. I discussed the case with the resident and agree with the findings and plan as documented in the resident's note. * Martin Nickerson MD - 05/30/2024 5:33 AM AUTOMATION AND CONTROLS SUPERVISOR ORS Progress Note Subjective: No acute events overnight. Patient resting comfortably in bed, reports pain is well controlled. He states he has been unable to feel or move his toes after the nerve block. Objective: Vitals: 05/29/24201705/29/24201705/29/24233105/29/242331 BP: (!) 140/95 109/78 Pulse: (!) 101 94 Resp: 19 18 Temp: 36.5 ?C (97.7 ?F) SpO2: 98% 96% Exam: Gen: No distress, A&Ox3 Resp: Stable on room air, equal chest expansion bilaterally CV: Regular rate, extremities well perfused RLE Inspection: Splint in place, dressings c/d/i Palpation: TTP at wound site, compartments soft and compressible Sensation: Decreased sensation to toes secondary to block Motor: Intact Unable to fire EHL/FHL secondary to block Vascular: Foot warm and well perfused with cap refill <2s in all toes Imaging: FL 1 hour intraoperative Result Date: 05/29/2024 This is a placeholder exam used for study with no Radiologist read. Assessment: 58 y.o. male s/p ORIF R ankle on 05/29/24. Plan: - Weight bearing status: RLE NWB - Abx: Ancef 2g q8h x 24h - Pain control per primary - DVT PPx: TEDS, SCDs, and okay for DVT chemoppx per primary - PT/OT consulted - Pending ORS surgeries: None at this time Dispo: Clear for discharge from ORS perspective when pt has finished post-op abx, has pain controlled with PO pain meds and clears PT/OT. Please follow up with Dr. Tony Back in 2 weeks. Call [phone] for appt. Please Epic Chat or page [phone] with questions. Please call [phone] ([phone]) with emergent concerns overnight. Martin Nickerson MD [facility] Orthopedic Surgery PGY-2 MATION AND CONTROLS SUPERVISOR * Kathy Galarza MD - 05/29/2024 7:33 PM AUTOMATION AND CONTROLS SUPERVISOR Orthopedic Trauma Service Postop Check Note Subjective Interval History: Doing well postoperatively. No acute concerns. Physical Exam Right Lower Extremity Surgical Site: clean, dry, and intact Drain: None Muscle Strength: Unable to wiggle toes Pulses: WWP Sensation: Sens diminished over exposed toes Compartments: soft, non tender Assessment/Plan The patient is a 58 y.o. male who is POD0 status post R ankle ORIF on 05/29 with current plan: Physical Therapy and Mobilization: NWB RLE Follow-Up Labs Antibiotics: Perioperative DVT Prophylaxis per protocol Continue Current Pain Management Appreciate excellent care per the primary Pending ORS surgeries: None at this time Discharge Planning Kathy Galarza MD, MD Orthopaedic Trauma Fellow Please call [phone]) with emergencies or overnight. MATION AND CONTROLS SUPERVISOR * Vladimir Downs OT - 05/29/2024 4:08 PM AUTOMATION AND CONTROLS SUPERVISOR OT Encounter Note Patient Name: Beny Aden Today's Date: 05/29/2024 Missed Treatment Time and Reason Upon OT attempt, pt in OR for ORIF of R ankle. OT will continue to f/u as medically appropriate. Vladimir Downs OT MATION AND CONTROLS SUPERVISOR * Patti Solis LMSW - 05/29/2024 3:02 PM AUTOMATION AND CONTROLS SUPERVISOR 05/29/24 1500 Discharge Planning Patient expects to be discharged to: Home w/OP Expected Discharge Disposition Home Discharge Planning Comments Barrier: OR 2/4; ALBERTINA:1-2day Discharge Planning Status In Progress LOS: 1 Last Recorded Vitals: Blood pressure 119/82, pulse 95, temperature 36.3 ?C (97.4 ?F), resp. rate (!) 10, height 1.8 m (5' 10.87"), SpO2 98%. Current Diet: Adult Diet Regular Patti Solis LMSW, ACM-SW SW Traveling Sales Executive - Neuro Service Line MATION AND CONTROLS SUPERVISOR * Lyric Olivo, PT - 05/29/2024 8:00 AM AUTOMATION AND CONTROLS SUPERVISOR Physical Therapy Encounter Note Patient Name: Beny Aden Today's Date: 05/29/2024 Missed Treatment Time and Reason Missed Visit Time - 08:00am Missed Visit Reason - Pt in OR for R ankle ORIF. PT will follow up on POD 1 for functional re-assessment. Lyric Olivo, PT, DPT MATION AND CONTROLS SUPERVISOR * Betty Parker MD - 05/29/2024 7:32 AM AUTOMATION AND CONTROLS SUPERVISOR Neurocritical Care Progress Note Consulted by NSGY for medical mgmt of TBI History Of Present Illness Beny Aden, 58 y.o. male with PMH of alcohol withdrawal, PTSD, alcoholic cirrhosis, newly diagnosed seizure disorder (3 lifetime seizures reported good compliance with primidone 50 mg) Denies AC/AP use, recent trauma in March , who presented s/p mechanical trip and fall in which his "legs gave out" and suffered a right fibular fracture and posterior malleolus fracture. Initial CTH L frontal tSAH with no MLS. NSGY following. Patient admitted to for closer monitoring and medical management of TBI. Of note patient had prior trauma back in March which resulted in orbital fracture and persistent diplopia. Interval Events: 05/24: right ankle placed in cast, Na lower than baseline 05/25: A&O x3-4. Reporting pain in right leg after placing weight on it overnight. Ortho notified repeat imaging ordered 05/26: patient would like to proceed with ORIF prior to discharge, pending timing for surgery; plt downtrending 05/27: plt improved to 75 today; R ORIF planned for Sunday 05/28: A&O x4. Reports pain is controlled with current regimen. Plan to OR tomorrow 05/29 for ORIF right ankle. cEEG negative seizures 05/29: OR fo ORIF right ankle Further clinical exam documented under Impression and Plan by systems. ASSESSMENT AND PLAN Beny Aden, 58 y.o. male with PMH of alcohol withdrawal, PTSD, alcoholic cirrhosis, newly diagnosed seizure disorder (3 lifetime seizures, reported good compliance with Keppra) and recent trauma in March , who presented on 05/23/2024 NEUROLOGIC Left frontal tSAH no MLS New diagnosed sz poa Neuro Exam: GCS: E4 Eyes open spontaneously, V5 Speech orientated, M6 Follows commands MS: AAO x4, following commands, speech fluent, no dysarthria, naming intact, no neglect CN: L pupil 3, R pupil 3, EOMI, VFF, face symmetric; eye patch in place Motor: weaker on LLE 4-/5 (in splint); otherwise full strength throughout Coordination: FNF no dysmetria Sensory: intact to light touch throughout Gait: deferred initial CTH revealed Left frontal tSAH no MLS CT C-spine negative for fractures Rpt CTH stable cEEG: negative for sz, discontinued No NSGY indicated No coagulopathy on labs or per history S/p Keppra 1gm load; continue 500mg q12h x7d for sz ppx; 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 Home meds: On primidone 50 mg HS for seizures-restarted Trazodone 50 mg HS ( per pt for insomnia) restarted Cymbalta 60 mg every day-restarted Gabapentin 100 mg po TID started for neuropathic pain CARDIOVASCULAR CV Exam: sinus tachycardia Temp: [36.6 ?C (97.9 ?F)-37.9 ?C (100.3 ?F)] 36.6 ?C (97.9 ?F) Heart Rate: [91-98] 98 Resp: [18-19] 18 BP: (96-136)/(61-95) 125/76 VS Parameters: SBP<150 PRN hydralazine, labetalol Trop negative EKG Sinus Tachycardia 24hr tele to r/o arrhythmias Home meds: Carvedilol 6.25 mg BID Lasix 40 mg qd-holding no S&S of edema present, no sob Spironolactone 25 mg every day-holding PULMONARY Pulm Exam: CTAB on room air w/ spO2>94% GASTROINTESTINAL alcoholic cirrhosis poa GI Exam: soft, non-distended, present bowl sounds Nutrition: Current Order: NPO Diet GI ppx: home PPI protonix bowel regimen: senna last BM 05/27 Lab Results Component Value Date ALT 17 05/28/2024 AST 46 (H) 05/28/2024 Alkaline Phosphatase 142 (H) 05/28/2024 Bilirubin Total 1.18 05/28/2024 Home meds: Pepcid 20 mg restarted RENAL Hyponatremia, on admit Intake/Output Summary (Last 24 hours) at 05/29/2024 0732 Last data filed at 05/29/2024 0500 Gross per 24 hour Intake -- Output 500 ml Net -500 ml Results from last 7 days Lab Units 05/28/24 0210 05/27/24 0428 05/26/24 0154 SODIUM mEq/L 139 138 140 POTASSIUM mEq/L 4.4 5.4* 4.3 CHLORIDE mEq/L 104 104 104 CO2 mEq/L 27.6 24.4 27.0 BUN mg/dL 8* 7* 10 CREATININE mg/dL 1.45* 1.46* 1.63* Electrolytes WNL No IVF Voids INFECTIOUS DISEASE Temp (24hrs), Av ?C (98.6 ?F), Min:36.6 ?C (97.9 ?F), Max:37.9 ?C (100.3 ?F) Results from last 7 days Lab Units 05/28/24 0210 05/27/24 0428 05/26/24 0154 WBC 10*3/uL 5.00 4.62 3.71* UA noninfectious Monitor trend fever curve and WBC no ABX indicated HEMATOLOGIC Thrombocytopenia, on admit Results from last 7 days Lab Units 05/28/24 1344 05/28/24 0210 05/27/24 0428 05/26/24 0154 05/25/24 0235 05/24/24 0425 05/23/24 0155 HEMOGLOBIN g/dL -- 10.9* 11.4* 11.0* < > 12.0* 13.3 PLATELETS MANUAL -- -- -- -- < > -- -- PLATELETS 10*3/uL -- 85* 75* 65* < > 80* 90* INR 1.10 -- -- -- -- 1.11 1.19* PTT Seconds -- -- -- -- -- 28.1 31.1 < > = values in this interval not displayed. Plt improved to 75 today, continue to monitor TEG negative No coagulopathy on labs or per history DVT ppx: SCDs; [place] q8h, monitor thrombocytopenia, holding on 05/29 starting at midnight for ORIF 05/29 Platelet goal >50 given cirrhosis ENDOCRINE Hyperlipidemia poa Hypokalemia poa Results from last 7 days Lab Units 05/28/24 0210 05/27/24 0428 05/26/24 0154 05/25/24 0237 05/24/24 0425 GLUCOSE mg/dL 97 86 93 < > 87 HEMOGLOBIN A1C % -- -- -- -- 5.57 < > = values in this interval not displayed. BG goal 80-180 medium-dose ISS Home meds: Crestor 40 mg HS-restarted Klor-con 20 mEq TID restarted MUSCULOSKELETAL AND INTEGUMENTARY right fibular fracture and posterior malleolus fracture. Skin Exam: warm, dry, intact #Right ankle fracture - OSH splint removed and new splint applied 05/25 - RLE NWB - Patient would like to proceed with right ankle ORIF prior to discharge; scheduled 05/29 - 05/[address] - avulsion fracture of a 23 mm fragment of the anterior lateral malleolus at the AITFL insertion with 12 mm displacement, mildly displaced oblique lateral malleolus fracture at the level of the distal syndesmosis, nondisplaced posterior malleolus fracture involving 12% of the articular Surface 05/25 right ankle Xray - unchanged minimal lateral translation of talus, unchanged oblique lateral malleolus fracture Code Status: Full Code Dispo: pending ORIF on 05/29 Care plan d/w patient [place] [place]Floor LETA Ph #[phone] (available 15/11), #[phone] (available 6:30a - 4:30p) Neuro ICU White Team Ph #[phone] The patient was seen and examined by me at a separate time from the LETA. I also reviewed the documentation and agree with the documented findings and plan of care. Additionally, I was directly involved in the management of the patient and provided the substantive portion of this visit, including examining the patient, obtaining history, and medical decision-making. MATION AND CONTROLS SUPERVISOR * Patti Solis LMSW - 05/28/2024 4:32 PM AUTOMATION AND CONTROLS SUPERVISOR 05/28/24 1600 Discharge Planning Patient expects to be discharged to: Home w/ OP Expected Discharge Disposition Home Discharge Planning Comments Barrier: OR 2/4; ALBERTINA:2-3days Discharge Planning Status In Progress LOS: 0 Last Recorded Vitals: Blood pressure 130/73, pulse 91, temperature 36.9 ?C (98.5 ?F), resp. rate 18, height 1.8 m (5' 10.87"), SpO2 98%. Current Diet: Adult Diet Regular NPO Diet DISCHARGE PLAN A: Home w/ OP DME rw DISCHARGE PLAN B: IPR Patti Solis LMSW, JYOTHI Traveling Sales Executive - Neuro Service Line MATION AND CONTROLS SUPERVISOR * Emi Jeffery PTA - 05/28/2024 12:40 PM AUTOMATION AND CONTROLS SUPERVISOR Encounter Note Patient Name: Beny Aden Today's Date: 05/28/2024 Missed Treatment Time and Reason Attempted tx in the PM, pt politely declined d/t fatigue. Pt is not currently on cEEG and scheduled for OR tomorrow 05/29 for R ORIF. Will hold tx and supervising PT will follow up for re-eval when appropriate. Emi Jeffery PTA MATION AND CONTROLS SUPERVISOR * BELINDA Mckeon - 05/28/2024 11:09 AM AUTOMATION AND CONTROLS SUPERVISOR Images from the original note were not included. Ortho Trauma History & Physical [facility] 05/28/2024 Beny Aden [id number] Ortho Attending: Robson Mir MD Ortho Trauma Diagnosis: Right ankle fracture Chief Complaint: Right ankle pain History of Present Illness: Mr. Aden is a 58 y.o. male s/p fall resulting in right ankle fracture. [facility] but has been in house for a bit for neuro reasons and patient now wants to go ahead and proceed with surgery. He reports that his swelling is improved and his pain is improving also. PMH: alcohol withdrawal, PTSD, alcoholic cirrhosis, newly diagnosed seizure disorder Past Surgical History: Procedure Laterality Date CT ANGIOGRAM NECK 10/06/2022 CT ANGIOGRAM NECK 10/06/2022 [facility] [place]OF[place] 7 ORTHO TRAUMA RIB FRACTURE SURGERY Right 10/08/2022 RIGHT OPEN REDUCTION INTERNAL FIXATION OF RIB FRACTURES #5-9, RIGHT THORACOSTOMY No family history on file. Social History Tobacco Use Smoking status: Every Day Current Facility-Administered Medications Medication Dose Route Frequency Provider Last Rate Last Admin acetaminophen (Tylenol) tablet 650 mg 650 mg Oral q6h PRN BELINDA Burciaga acetaminophen-codeine (Tylenol w/ Codeine #3) 300-30 MG per tablet 1 tablet 1 tablet Oral q4h PRN BELINDA Burciaga 1 tablet at 05/28/24 0926 bisacodyl (Dulcolax) suppository 10 mg 10 mg Rectal Daily PRN Elsa Field MD carvedilol (Coreg) tablet 6.25 mg 6.25 mg Oral BID with meals Gabriela West NP 6.25 mg at 05/28/24 0926 dextrose 50 % solution 12.5 g 12.5 g Intravenous PRN Elsa Field MD dextrose 50 % solution 25 g 25 g Intravenous PRN Elsa Field MD diphenhydrAMINE (BENADryl) injection 12.5 mg 12.5 mg Intravenous q6h PRN Dorene Diaz NP DULoxetine (Cymbalta) DR capsule 60 mg 60 mg Oral Daily Gabriela West NP 60 mg at 05/28/24 0926 famotidine (Pepcid) tablet 20 mg 20 mg Oral Daily Elsa Field MD 20 mg at 05/28/24925 [Held by provider] furosemide (Lasix) tablet 40 mg 40 mg Oral Daily Gabriela West NP gabapentin (Neurontin) capsule 100 mg 100 mg Oral TID Gabriela West NP 100 mg at 05/28/24925 glucagon injection 1 mg 1 mg Intramuscular PRN Elsa Field MD heparin injection 5,000 Units 5,000 Units Subcutaneous q8h Gabriela West NP 5,000 Units at 05/28/24925 hydrALAZINE injection 10 mg 10 mg Intravenous q4h PRN Elsa Field MD insulin lispro (HumaLOG, Admelog) injection 2-8 Units 2-8 Units Subcutaneous q6h PRN Elsa Field MD ipratropium-albuterol (Duo-Neb) 0.5-2.5 mg/3 mL nebulizer solution 3 mL 3 mL Nebulization q4h PRN Elsa Field MD labetalol injection 10 mg 10 mg Intravenous q4h PRN Elsa Field MD levETIRAcetam (Keppra) tablet 500 mg 500 mg Oral q12h Elsa Field MD 500 mg at 05/27/24 174 Or levETIRAcetam (Keppra) 100 MG/ML solution 500 mg 500 mg Per G Tube q12h Elsa Field MD 500 mg at 05/28/24 06 Or levETIRAcetam (Keppra) 100 MG/ML solution 500 mg 500 mg Nasogastric q12h Elsa Field MD methocarbamol (Robaxin) tablet 750 mg 750 mg Oral BID Gabriela West NP 750 mg at 05/28/24925 mirtazapine (Remeron) tablet 30 mg 30 mg Oral Nightly Gabriela West NP 30 mg at 05/27/242112 naloxone (Narcan) injection 0.04 mg 0.04 mg Intravenous PRN Elsa Field MD ondansetron (Zofran) injection 4 mg 4 mg Intravenous q6h PRN Elsa Field MD 4 mg at 05/23/24 175 ondansetron (Zofran) injection 4 mg 4 mg Intravenous Once Asha De MD pantoprazole (ProtoNix) EC tablet 40 mg 40 mg Oral Daily before breakfast Gabriela West NP 40 mg at 05/28/24 0926 [Held by provider] potassium chloride CR (Klor-Con M20) ER tablet 20 mEq 20 mEq Oral TID Gabriela West NP 20 mEq at 05/26/24 1618 primidone (Mysoline) tablet 50 mg 50 mg Oral Nightly Gabriela Wset NP 50 mg at 05/27/24 211 rosuvastatin (Crestor) tablet 40 mg 40 mg Oral Daily Gabriela West NP 40 mg at 05/28/24 0925 sennosides (Senokot) tablet 8.6 mg 1 tablet Oral BID Elsa Field MD 8.6 mg at 05/25/24 0818 sodium chloride (NS) 0.9 % flush 10 mL 10 mL Intravenous q12h Elsa Field MD 10 mL at 05/26/24 0530 sodium chloride (NS) 0.9 % flush 10 mL 10 mL Intravenous PRN Elsa Field MD sodium chloride 0.9 % infusion 10 mL 10 mL Intravenous PRN Elsa Field MD [Held by provider] spironolactone (Aldactone) tablet 25 mg 25 mg Oral Daily Gabriela West NP traMADol (Ultram) tablet 50 mg 50 mg Oral q6h PRN Ketty Costello NP traZODone (Desyrel) tablet 50 mg 50 mg Oral Nightly Dorene Diaz NP 50 mg at 05/27/242112 Allergies Allergen Reactions Nsaids Review of Systems Constitutional: Negative for chills and fever. HENT: Negative for congestion, rhinorrhea and sore throat. Respiratory: Negative for shortness of breath and wheezing. Gastrointestinal: Negative for diarrhea, nausea and vomiting. Musculoskeletal: See HPI BP (!) 136/95 | Pulse 97 | Temp 36.7 ?C (98.1 ?F) | Resp 18 | Ht 1.8 m (5' 10.87") | SpO2 97% | BMI 26.54 kg/m? Physical Exam: Constitutional: Appearance: Normal appearance. He is normal weight. HENT: Head: Normocephalic and atraumatic. Pulmonary: Effort: Pulmonary effort is normal. Musculoskeletal: Cervical back: Normal range of motion. Comments: RLE: - Splint intact. Swelling reduced to dorsum of foot. NTTP. - Intact flex/ext of knee. Intact EHL/FHL. - SILT for SP/DP/Tib - Intact dorsalis pedis. Neurological: Mental Status: He is alert. Psychiatric: Mood and Affect: Mood normal. Radiographs:=== 05/23/24 === XR ANKLE 3+ VIEWS RIGHT - Impression - 1. Unchanged minimal lateral translation of the talus. 2. Unchanged oblique lateral malleolus fracture. Report finalized by: Arnaud Kee MD 05/25/2024 14:48 Labs:Results from last 7 days Lab Units 05/28/24 0210 05/27/24 0428 05/26/24 0154 05/25/24 0235 05/24/24 0425 WBC 10*3/uL 5.00 4.62 3.71* < > 5.98 HEMOGLOBIN g/dL 10.9* 11.4* 11.0* < > 12.0* HEMATOCRIT % 35.2* 37.3 35.8* < > 35.9* PLATELETS MANUAL -- -- -- < > -- PLATELETS 10*3/uL 85* 75* 65* < > 80* HEMOGLOBIN A1C % -- -- -- -- 5.57 < > = values in this interval not displayed. Assessment: 58 y.o. male with right ankle fracture. Plan: WBS: NWB to RLE. To OR tomorrow 05-29-2024 for ORIF of right ankle with the Ortho Trauma Team. Pre-op work up, NPO after MN. Surgical site marked. Consent in chart. Pain and DVT chemo ppx per primary team. Do recommend a minimum of 21 days of DVT chemo ppx after surgery. PT/OT evaluate and treat. BELINDA [facility] Physician Layer Off for Robson Mir MD 05/28/2024 MATION AND CONTROLS SUPERVISOR * Raina Amos - 05/26/2024 3:16 PM AUTOMATION AND CONTROLS SUPERVISOR Spiritual Care Subjective [employer] [employer] [facility] Volunteer, Hugo Verdugo, visited the patient on 2024 at 3:16 pm with his at bedside and provided spiritual support and prayer. [employer] available 15/11 in-house. Call [employer]ra [phone] or page [phone]. MATION AND CONTROLS SUPERVISOR * Patti Solis LMSW - 05/25/2024 3:25 PM AUTOMATION AND CONTROLS SUPERVISOR 05/25/24 1524 Discharge Planning Patient expects to be discharged to: Home w/OP Expected Discharge Disposition Home Discharge Planning Comments Barrier: reimaging of foot pending; ALBERTINA:1day Discharge Planning Status In Progress LOS: 0 Last Recorded Vitals: Blood pressure 105/73, pulse 91, temperature 36.8 ?C (98.2 ?F), resp. rate 19, height 1.8 m (5' 10.87"), SpO2 96%. Current Diet: Adult Diet Regular DISCHARGE PLAN A: Home w/OP - pt will need to contact [facility] for services DISCHARGE PLAN B: Home Patti Solis LMSW, MACIE Traveling Sales Executive - Neuro Service Line MATION AND CONTROLS SUPERVISOR * Vladimir Downs OT - 05/25/2024 3:13 PM AUTOMATION AND CONTROLS SUPERVISOR Images from the original note were not included. Treatment Session Note Patient Name: Beny Aden Today's Date: 05/25/2024 Preferred Language: Brazilian Assessment & Plan Pt limited by pain this session. Pt continues to demo lack of safety awareness as pt reports he uses office chair to roll to restroom d/t NWB status on RLE. OT offered to order BSC, however pt denied request. Pt performs bed mobility abruptly and grooming and hygiene while standing at sink. Strong R lean on wall to prevent LOB during hygiene. Demos continued deficits in limited activity tolerance , standing balance, pain, and safety awareness which impacts pt's ability to engage in ADLs and mobility. Pt remains below baseline. Pt would benefit from continued skilled OT services to improve functional performance and safety. Assessment: OT Assessment Results: Impaired ADL status, Impaired endurance, Impaired safe judgment during ADL Prognosis: Good Barriers to Discharge: Medical diagnosis Evaluation/Treatment Tolerance: Patient limited by pain, Patient tolerated treatment well Medical Staff Made Aware: Yes Strengths: Support and attitude of living partners Precautions: UE Weight Bearing Status: fwb LE Weight Bearing Status: NWB RLE Braces Applied: RLE splint donned Plan: Treatment Plan/Goals Established with Patient/Caregiver: Yes Treatment Interventions: ADL retraining, Endurance training, Patient/family training OT Planned Treatments: Activities of Daily Living OT Plan: Skilled OT OT Frequency: 2-4 times per week until discharge OT Duration: Discharge Equipment Recommended: (pt requests elevated toilet. Educated regarding elevated toilet seat. Pt states he has one but is not big enough to support pt) Subjective "How do I use the restroom" Pain: Pain Assessment: 0-10 (05/25/2024 1:06 PM) Pain Score: 0 (05/24/2024 10:00 AM) Pain Type: Acute pain (05/24/2024 8:00 PM) Pain Location: Head (Back (lumbar and cervical spine) , R ankle , B knees) (05/24/2024 9:15 AM) Pain Frequency: Constant/continuous (05/24/2024 8:00 PM) Objective = Chart reviewed and RN cleared pt for therapy. = Pt presents semi-harden in bed agreeable to OT tx and educated on rationale for tasks performed in tx. = pt reports pains and using office chair to transfer to toilet = pt educated unsafe to perform = spouse shows OT pictures of house to verbalize how pt may have fell. Fall prevention education on house rugs = supine>EOB = grooming utensils prepped = sit>stand FWW = >sink = g/h while standing at sink. Requires steadying assistance = returned EOB = EOB>supine = Pt left semi-harden in bed w/ RLE elevated, call gray, needs met, VSS. RN notified. Vital Signs: 05/25/2024 12:00 AM 05/25/2024 12:26 AM 05/25/2024 2:00 AM 05/25/2024 3:58 AM 05/25/2024 4:00 AM 05/25/2024 8:32 AM 05/25/2024 1:33 PM Vitals Systolic 110 122 124 114 105 Diastolic 62 69 61 89 73 Heart Rate 87 85 81 102 91 Temp 36.4 ?C (97.6 ?F) 36.7 ?C (98.1 ?F) 36.6 ?C (97.9 ?F) 36.8 ?C (98.2 ?F) Resp 17 15 15 18 19 Self Care (ADL): Self Care/Home Management (ADLs) Time Entry: 24 Eating Assistance: Independent Grooming Assistance: Supervision/touching assistance (performed standing at sink w/ FWW. NWB RLE. Uses L wall to assist w/ balance. Pt w/ tremor during g/h) LE Dressing Assistance: Partial/Mod assistance (able to reach end of LLE while upright in bed. with figure four postion) Toileting Assistance: (reports using office chair to roll into restroom. educated to not use rolling chair d/t not being safe. Pt declined request for OT to order BSC) Treatment Self-Care: Self Care/Home Management (ADLs) Time Entry: 24 Eating Assistance: Independent Grooming Assistance: Supervision/touching assistance (performed standing at sink w/ FWW. NWB RLE. Uses L wall to assist w/ balance. Pt w/ tremor during g/h) LE Dressing Assistance: Partial/Mod assistance (able to reach end of LLE while upright in bed. with figure four postion) Toileting Assistance: (reports using office chair to roll into restroom. educated to not use rolling chair d/t not being safe. Pt declined request for OT to order BSC) Bed Mobility: Bed Mobility Bed Mobility: Yes Bed Mobility 1 Level of Assistance 1: Supervision/touching assistance Bed Mobility Comments 1: performs aruptly. uses momentum Bed Mobility To/From: Supine to sit on EOB, Sitting EOB to supine Transfers: Transfer 1 Level of Assistance 1: Partial/Mod assistance Trials/Comments 1: steady assistance Transfer To/From: Dqk-cz-Rhqyv/Kymtz-tn-Hck Assistive Devices And Adaptive Equipments: Walker, front-wheeled AM-PAC Daily Activity: Putting on and taking off regular lower body clothing: A Lot Bathing (including washing, rinsing, drying): A Lot Toileting, which includes using toilet, bedpan or urinal: A Little Putting on and taking off regular upper body clothing: A Little Taking care of personal grooming such as brushing teeth: A Little Eating Meals: None AM-PAC Daily Activity Raw Score: 17 Mobility Highest Level of Mobility Performed (JH-HLM): Walked 10 steps or more (i.e. walked to restroom) Patient Education: Education Documentation No documentation found. Education Comments No comments found. Goals: Encounter Goals Encounter Goals (Active) Pt will demo ability to perform LB dressing w/ Min A while seated utilizing adaptive equipment PRN. (Progressing) Start: 05/24/24 Expected End: 06/09/24 Patient will demonstrate adequate strength to reduce risk of falls or injury associated with fall; reduce bone/mineral loss, prevent obesity, regain preserve ADL independence. (Progressing) Start: 05/24/24 Expected End: 06/09/24 Pt will demo ability to perform toilet transfer w/ supervision utilizing adaptive device PRN. (Progressing) Start: 05/24/24 Expected End: 06/09/24 Patient will improve activity tolerance to do func standing activ x10min to increase indep and safety for IADL'S in the home by discharge. (Progressing) Start: 05/24/24 Expected End: 06/09/24 Treatment Note: If this is the last documented treatment, then it will signify discharge from acute care prior to discharge from the therapy service and will serve as the discharge summary. Vladimir Downs OT MATION AND CONTROLS SUPERVISOR * Sarah Peguero, PT - 05/25/2024 2:30 PM AUTOMATION AND CONTROLS SUPERVISOR Treatment Session Note Patient Name: Beny Aden Today's Date: 05/25/2024 Preferred Language: Brazilian Assessment & Plan Assessment: PT Assessment: Pt was fit for crutches and gait was assessed while using crutches.Pt is a high fall risk with his crutches and would do significantly better with using a RW to accomodate his NWB status at his RLE. RW should be ordered for pt to decrease his fall risk. Plan: Equipment Recommended: Walker- rolling Subjective I don't know how to use these crutches. Precautions: UE Weight Bearing Status: FWB LE Weight Bearing Status: NWB RLE Medical Precautions: Fall; Standard, SBP <150 Braces Applied: RLE splint donned Pain: Pain Assessment: 0-10 Pain Rating (0-10): 4 = Distracts me, can do usual activities Pain Type: Acute pain Pain Location: Ankle Pain Orientation: Right Objective General Visit Information: PT Last Visit PT Received On: 05/25/24 Treatment Gait training: Gait Training Time Entry: 16 Gait Training Activity 1:Distance (enter in feet): 10' Gait Training Activity 1: Indoor surface Assistive Devices And Adaptive Equipments: Crutches, axillary Level of Assistance 1: Partial/Mod assistance Gait Training Activity 1 Comment: Pt was fit for crutches, and PT explained how to safely use crutches to pt. Pt attempted hop to gait pattern. Pt unable to safely maneuver crutches at this time and had multiple episodes of LOB unable to advabce B crutches. Pt was safely brought back to EOB where he fell backwards onto bed stating the crutches were too difficult and then returned himself to sup. AM-PAC Basic Mobility:AM-PAC Basic Mobility Inpatient Turning in bed without bedrails: None Lying on back to sitting on edge of flat bed: None Bed to chair: A Little Standing up from chair: A Little Walk in room: A Lot Climbing 3-5 stairs: A Lot Mobility Inpatient Raw Score: 18 JH-HLM Goal: 6 Mobility: Highest Level of Mobility Performed (JH-HLM)JH-HLM Goal: 6 Highest Level of Mobility Performed (JH-HLM): Walked 10 steps or more (i.e. walked to restroom) Modified Mami Patient Education: Education Documentation No documentation found. Education Comments No comments found. Goals:Encounter Goals Encounter Goals (Active) Patient will transfer bed to/from chair with supervision and least restrictive device to increase upright tolerance and optimize cardiorespiratory function Start: 05/24/24 Expected End: 06/07/24 Patient will ambulate 150 feet over level surfaces with supervision and least restrictive device in prep for household ambulation and community re-integrationn Start: 05/24/24 Expected End: 06/07/24 Patient will propel manual wheelchair 500 feet independently on unlevel surfaces using bilateral UE without adaptive aid independently Start: 05/24/24 Expected End: 06/07/24 Postsession checklist: RN notified, Call light in place, and Family in room Treatment Note: If this is the last documented treatment, then it will signify discharge from acute care prior to discharge from the therapy service and will serve as the discharge summary. Sarah Peguero PT MATION AND CONTROLS SUPERVISOR * Kevin Villegas MD - 05/25/2024 11:19 AM AUTOMATION AND CONTROLS SUPERVISOR ORS Trauma Progress Note S: Patient resting comfortably in bed. Orthopedics contacted because patient has changed his mind and no longer wants to follow-up at the [facility] for his ankle surgery. O: Vitals: 05/25/24 0400 05/25/24 0832 05/25/24 0832 05/25/24 0832 BP: 124/61 114/89 Pulse: 81 (!) 102 Resp: 15 18 Temp: 36.6 ?C (97.9 ?F) SpO2: 95% 97% Exam: Gen: NAD, A&Ox4, laying in bed Resp: SIXTO, equal chest expansion bilaterally CV: RRR, peripheral vascular exam as documented below RLE Compartments soft, compressible. dressings c/d/i. Bruising about lateral ankle No open wounds or gross deformity SILT in SP/DP/Tib distributions. Motor intact EHL/FHL/Gastroc/TA. 2+ DP/PT palpable pulses, cap refill <2s in all toes. A/P: 58 y.o. male sustaining: R ankle fx Plan: - OSH splint removed and new splint applied - Weight bearing status: RLE NWB, please provide patient with crutches - Pain control per primary - DVT PPx: TEDS, SCDs, and okay for DVT chemoppx per primary - PT/OT - Pending ORS surgeries: Follow-up for outpatient ORIF right ankle Dispo: Okay to DC home from ORS perspective. Plan to follow-up for outpatient ORIF right ankle . Please follow up with Dr. Robson Mir. Call [phone] for appt. Please [employer] with questions. Please call [phone]) with emergencies or overnight. Kevin Villegas MD [facility] Orthopedic Surgery PGY-2 MATION AND CONTROLS SUPERVISOR MATION AND CONTROLS SUPERVISOR * Patti Solis LMSW - 05/24/2024 2:37 PM AUTOMATION AND CONTROLS SUPERVISOR 05/24/24 1436 Discharge Planning Patient expects to be discharged to: Home w/ OP Expected Discharge Disposition Home Discharge Planning Comments Barrier: ankle fracture, labs; ALBERTINA: 05/24 vs 05/25 Discharge Planning Status In Progress LOS: 0 Last Recorded Vitals: Blood pressure 132/82, pulse (!) 107, temperature 37 ?C (98.6 ?F), resp. rate 16, height 1.8 m (5' 10.87"), SpO2 96%. Current Diet: Adult Diet Regular DISCHARGE PLAN A: Home w/ OP DISCHARGE PLAN B: Home w/ HH Patti Solis LMSW, MACIE Traveling Sales Executive - Neuro Service Line MATION AND CONTROLS SUPERVISOR MATION AND CONTROLS SUPERVISOR * Vladimir Downs OT - 05/24/2024 12:10 PM AUTOMATION AND CONTROLS SUPERVISOR Images from the original note were not included. Evaluation and Treatment Patient Name: Beny Aden Today's Date: 05/24/2024 Preferred Language: Brazilian Assessment & Plan Pt is a 58 y.o. male who lives with spouse in a multi-level house with a walk in shower and bath tub . Admitted for SAH from a fall. PLOF requires assistance in ADLs and functional mobility d/t problems w/ bilateral knees and frequent falls. Reports fear of showers at times and prefers bedbaths. Pt RUE ROM and strength limited d/t old fx per pt report. Pt performs supine>EOB w/ supervision. Toilet transfer w/ Min A. ADL mobility w/ unsteadiness d/t tremors. Sight LOB. Pt demos deficits in decreased UB strength, limited activity tolerance , standing balance, and safety awareness which impact pt's ability to engage in ADLs and mobility. Pt is below baseline and would benefit from continued skilled OT services to improve functional performance and safety. Assessment: OT Assessment Results: Impaired ADL status, Impaired safe judgment during ADL, Impaired endurance, Impaired upper extremity range of motion, Impaired upper extremity strength Prognosis: Good Barriers to Discharge: Medical diagnosis, Past Medical history Evaluation/Treatment Tolerance: Patient tolerated treatment well Medical Staff Made Aware: Yes Strengths: Support and attitude of living partners Plan: Treatment Plan/Goals Established with Patient/Caregiver: Yes Treatment Interventions: ADL retraining, Endurance training, Patient/family training OT Planned Treatments: Activities of Daily Living OT Plan: Skilled OT OT Frequency: 2-4 times per week until discharge OT Duration: Discharge Equipment Recommended: (pt requests elevated toilet. Educated regarding elevated toilet seat. Pt states he has one but is not big enough to support pt) Subjective " I have fallen 43 times in the best 5 days" Pain: Pain Assessment: 0-10 (05/24/2024 10:00 AM) Pain Score: 0 (05/24/2024 10:00 AM) Pain Type: Chronic pain (05/24/2024 9:15 AM) Pain Location: Head (Back (lumbar and cervical spine) , R ankle , B knees) (05/24/2024 9:15 AM) Pain Orientation: Left; Right (05/23/2024 8:33 AM) Pain Descriptors: Discomfort; Aching (05/23/2024 5:00 AM) Pain Frequency: Intermittent (05/23/2024 5:00 AM) Objective = Chart reviewed and KAYLA Harrison cleared pt for therapy. = Pt presents semi-harden in bed agreeable to OT tx and educated on rationale for tasks performed in tx. = PLOF, home environment, MMT/ROM obtained = supine>EOB = sit>stand>toilet FWW = toilet transfer. Unsteady. Min A = > EOB. Slight LOB. Demos ability to recover = EOB>supine = educated on ADL techniques, DME, and fall prevention = Pt left semi-harden in bed w/ tele lines intact, call gray, needs met, VSS. RN notified. Vital Signs: 05/24/2024 6:00 AM 05/24/2024 7:00 AM 05/24/2024 7:11 AM 05/24/2024 8:00 AM 05/24/2024 9:00 AM 05/24/2024 10:00 AM 05/24/2024 11:00 AM Vitals Systolic 136 141 165 135 132 Diastolic 85 89 67 62 82 Heart Rate 95 96 97 110 104 105 107 Temp 37 ?C (98.6 ?F) Resp 17 20 20 18 19 16 16 Post: BP 154/83, O2 97%, HR 104 Precautions: UE Weight Bearing Status: fwb LE Weight Bearing Status: NWB RLE Braces Applied: RLE splint donned Cognition: Overall Cognitive Status: Within Functional Limits Behavior/Cognition: Alert, Cooperative, Pleasant mood, Impulsive Home Living: Type of Home: House Lives With: Spouse Home Adaptive Equipment: Walker rolling or standard, Cane, Wheelchair-manual, Scooter Home Layout: Multi-level Home Access: Elevator Bathroom Shower/Tub: Walk-in shower, Tub/shower unit Bathroom Toilet: (low seated toilet) Bathroom Equipment: Grab bars in shower Prior Function: Level of Hooker: Ambulated with assistive device (comment) Receives Help From: Family ADL Assistance: Needs assistance (reports needing assistance for past few months w/ LB dressing and bathing) Homemaking Assistance: Needs assistance OT General Assessments: Activity Tolerance Endurance: Tolerates 10 - 20 min exercise with multiple rests Sitting Balance: Moves/returns truncal midpoint 1-2 inches in multiple planes Early Mobility/Exercise Safety Screen: Proceed with mobilization - No exclusion criteria met Sensation Sensation Comments: wfl Vision: diplopia R eye. Patch donned Proprioception Proprioception Comments: wfl Coordination Coordination and Movement Description: shaky d/t tremors Hand Function Gross Grasp: Functional Coordination: Functional Extremity Assessments: Right Upper Extremity RUE Assessment RUE Assessment: Exceptions to WFL Shoulder ROM <90 degrees, 3+/5 strength Biceps and triceps 4/5. Reports pain Left Upper Extremity LUE Assessment LUE Assessment: Within Functional Limits Treatment: Self-Care: Self Care/Home Management (ADLs) Time Entry: 23 Eating Assistance: Independent (per pt report) LE Dressing Assistance: Substantial/Max assistance (reports requiring assistance d/t bad knees. Spouse asisst pt at home) Toileting Assistance: Partial/Mod assistance (Reports near fall while in hospital w/ spouses help. Educated to call RN) Toileting Deficit: Steadying ADL Comments: Pt very unsteady during ADL mobiltiy d/t tremors. Slight LOB when returning from restroom Bed Mobility: Bed Mobility Bed Mobility: Yes Bed Mobility 1 Level of Assistance 1: Supervision/touching assistance Bed Mobility To/From: Sitting EOB to supine, Supine to sit on EOB Assistive Devices And Adaptive Equipments: Head of bed elevated Transfers: Transfers Transfer: Yes Transfer 1 Level of Assistance 1: Supervision/touching assistance Trials/Comments 1: NWB RLE Transfer To/From: [id number] Assistive Devices And Adaptive Equipments: Walker, front-wheeled Transfers 2 Technique 2: Via walking Level of Assistance 2: Partial/Mod assistance Trials/Comments 2: grab bars Transfer To/From: Toilet Assistive Devices And Adaptive Equipments: Walker, front-wheeled AM-PAC Daily Activity: Putting on and taking off regular lower body clothing: A Lot Bathing (including washing, rinsing, drying): A Lot Toileting, which includes using toilet, bedpan or urinal: A Lot Putting on and taking off regular upper body clothing: A Little Taking care of personal grooming such as brushing teeth: A Little Eating Meals: None AM-[facility] Daily Activity Raw Score: 16 Mobility Highest Level of Mobility Performed (JH-HLM): Walked 10 steps or more (i.e. walked to restroom) Patient Education: Education Documentation Other Occupational Therapy Topics, taught by Vladimir Downs OT at 05/24/2024 12:09 PM. Learner: Patient Readiness: Acceptance Method: Explanation Response: Verbalizes Understanding Fall Prevention, taught by Vladimir Downs OT at 05/24/2024 12:09 PM. Learner: Patient Readiness: Acceptance Method: Explanation Response: Verbalizes Understanding ADL Training, taught by Vladimir Downs OT at 05/24/2024 12:09 PM. Learner: Patient Readiness: Acceptance Method: Explanation Response: Verbalizes Understanding Occupational Therapy Plan of Care, taught by Vladimir Downs OT at 05/24/2024 12:09 PM. Learner: Patient Readiness: Acceptance Method: Explanation Response: Verbalizes Understanding Education Comments No comments found. Goals: Encounter Goals Encounter Goals (Active) Pt will demo ability to perform LB dressing w/ Min A while seated utilizing adaptive equipment PRN. Start: 05/24/24 Expected End: 06/09/24 Patient will demonstrate adequate strength to reduce risk of falls or injury associated with fall; reduce bone/mineral loss, prevent obesity, regain preserve ADL independence. Start: 05/24/24 Expected End: 06/09/24 Pt will demo ability to perform toilet transfer w/ supervision utilizing adaptive device PRN. Start: 05/24/24 Expected End: 06/09/24 Patient will improve activity tolerance to do func standing activ x10min to increase indep and safety for IADL'S in the home by discharge. Start: 05/24/24 Expected End: 06/09/24 Treatment Note: If this is the last documented treatment, then it will signify discharge from acute care prior to discharge from the therapy service and will serve as the discharge summary. Vladimir Downs OT [employer] AND CONTROLS SUPERVISOR * Lyric Olivo, PT - 05/24/2024 9:15 AM AUTOMATION AND CONTROLS SUPERVISOR Physical Therapy Evaluation and Treatment Note Patient Name: Beny Aden Today's Date: 05/24/2024 Preferred Language: Brazilian Assessment & Plan Assessment: Prognosis: Excellent Evaluation/Treatment Tolerance: Patient limited by pain, Patient limited by fatigue Medical Staff Made Aware: Yes Plan: Treatment Plan/Goals Established with Patient/Caregiver: Yes Treatment/Interventions: Balance training, Bed mobility training, Caregiver training, Functional activities, Gait training, Wheelchair assessment and management, Transfer training, Therapeutic exercises, Posture/Body mechanics baring, Patient education, Neuromuscular re-education, Pain management PT Plan: Skilled PT PT Frequency: 2-3 times per week until discharge Discharge Recommendation: Outpatient PT Patient is alert , oriented x 4 and able to follow commands for formal testing. Physical assessment reveals functional BLE strength, functional BLE active and passive ROM, intact light touch sensation , intact proprioception, good functional balance, decreased endurance, normal postural alignment and mildly impaired postural control. Pt demonstrates mild impulsivity and requires intermittent cues for safety. At this time, pt performs bed mobility independently. When OOB, contact guard assist to supervision required for transfers and ambulation with a rolling walker. Ambulation distance limited by fatigue ( increased energy needs using RW due to hop-to pattern for maintain NWB status) . Education provided re: energy conservation strategies. At baseline, pt is a community dwelling adult . Pt slightly below pre-admission functional status and will benefit from continued skilled PT services at next level of care to maximize functional recovery. Subjective "When can I leave?" Current Problem: Per NSGY Progress Note on 05/24/24: Pt is a 58-year-old male presenting following syncopal fall femoral electric scooter. CT brain demonstrates left frontal traumatic subarachnoid hemorrhage. Patient has past medical history of alcohol withdrawal, PTSD, alcoholic cirrhosis, newly diagnosed seizure disorder (3 lifetime seizures, reported good compliance with Keppra) and recent trauma in which she had a mechanical trip and fall in which his "legs gave out" and suffered a right fibular fracture and posterior malleolus fracture. Impression: - left frontal tSAH Pain: Pain Assessment: 0-10 Pain Score: 0 Pain Type: Chronic pain Pain Location: Head (Back (lumbar and cervical spine) , R ankle , B knees) Pain Orientation: Left; Right Pain Descriptors: Discomfort; Aching Pain Frequency: Intermittent Vital Signs: Pre: BP 123/75 HR 111 O2 sat :95% Post: BP 140/84 HR 111 O2 sat :96% Home Living: Type of Home: House Lives With: Spouse Home Adaptive Equipment: Walker rolling or standard, Wheelchair-manual, Cane (Rollator and knee scooter) Home Layout: Multi-level Home Access: Elevator, Level entry Prior Level of Function: Level of Hooker: Ambulated with assistive device (comment) Receives Help From: Family (Received assistance from spouse as needed for ADLs and mobility) ADL Assistance: Needs assistance Homemaking Assistance: Needs assistance Leisure: Fishing Prior Function Comments: Pt reports his level of function fluctuates daily Objective General Visit Information: Family/Caregiver Present: No Others Present: PT tech: Clifton W Precautions: UE Weight Bearing Status: FWB LE Weight Bearing Status: Right LE NWB Medical Precautions: Fall; Standard, SBP <150 Braces Applied: Short Leg Splint in place Cognition: Overall Cognitive Status: Within Functional Limits Behavior/Cognition: Alert, Pleasant mood, Cooperative (Mildly impulsive) Orientation Level: Oriented X4 Safety Judgment: Good awareness of safety precautions Awareness of Deficits: Fully aware of deficits Attention: Appears intact General Assessments: Activity Tolerance Activity Tolerance Endurance: Tolerates 30 min exercise with multiple rests Sitting Balance: Supports self independently with both upper extremities Early Mobility/Exercise Safety Screen: Proceed with mobilization - No exclusion criteria met Sensation Sensation Light Touch: RLE Intact, LLE Intact Deep Pressure: RLE Intact, LLE Intact Proprioception Proprioception Proprioception: RLE Intact, LLE Intact Perception Perception Inattention/Neglect: Appears intact Initiation: Appears intact Motor Planning: Appears intact Perseveration: Not present Coordination Coordination Movements are Fluid and Coordinated: Yes Toe Taps: Left intact (R not tested secondary to presence of splint and ankle fx) Postural Control Postural Control Postural Control: Deficits on evaluation (WFL in sitting . Impaired in standing.) Balance- Sitting Static Sitting-Balance Support: Feet supported Level of Assistance: Independent Dynamic Sitting-Balance Support: Feet supported Level of Assistance: Independent Balance- Standing Static Standing-Balance Support: Right upper extremity supported, Left upper extremity supported Static Standing-Level of Assistance: Supervision/touching assistance Dynamic Standing-Balance Support: Right upper extremity supported, Left upper extremity supported Dynamic Standing-Level of Assistance: Supervision/touching assistance Functional Assessments: Bed Mobility Bed Mobility 1: Level of Assistance 1: Independent Bed Mobility To/From: Roll left/right Bed Mobility 2: Level of Assistance 2: Independent Bed Mobility To/From: Supine to sit on EOB Bed Mobility 3: Level of Assistance 3: Independent Bed Mobility To/From: Sitting EOB to supine Transfers Transfers 1: Level of Assistance 1: Supervision/touching assistance Trials/Comments 1: NWB at RLE Transfer To/From: [id number] Assistive Devices And Adaptive Equipments: Walker, front-wheeled Transfers 2: Technique 2: Via walking Level of Assistance 2: Supervision/touching assistance Trials/Comments 2: NWB at RLE Transfer To/From: Chair, Bed Assistive Devices And Adaptive Equipments: Walker, front-wheeled Gait Gait Training Time Entry: 5 Gait Training Activity 1: Distance (enter in feet): 20 feet x 2 Assistive Devices And Adaptive Equipments: Walker, front-wheeled Level of Assistance 1: Supervision/touching assistance Gait Training Activity 1 Comment: hop-to pattern , decreased speed, able to maintain NWB status Wheelchair Wheelchair Activities Wheelchair Management Time Entry: 10 Wheelchair Type: (Manual wheelchair) Wheelchair Type: Manual Level of Assistance: Independent Wheelchair Parts Management: Yes All Wheelchair Parts Management: Brakes, Leg rest Propulsion: Yes Propulsion Type 1: Manual Level 1: Level Method 1: Manual UE Propulsion Level of Assistance 1: Independent Propulsion 1: Propulsion Type 1: Manual Level 1: Level Method 1: Manual UE Propulsion Level of Assistance 1: Independent Extremity Assessments: Right Lower Extremity RLE Assessment RLE Assessment: Within Functional Limits (R ankle not tested due to fx and present of short leg splint) Left Lower Extremity LLE Assessment LLE Assessment: Within Functional Limits Overall Lower Extremity/Trunk Tone Overall Lower Extremity/Trunk Tone Left Lower Extremity: Normal Right Lower Extremity: Normal Trunk: Normal Activity Tolerance: Endurance: Tolerates 30 min exercise with multiple rests Sitting Balance: Supports self independently with both upper extremities Early Mobility/Exercise Safety Screen: Proceed with mobilization - No exclusion criteria met Cognition Overall Cognitive Status: Within Functional Limits Behavior/Cognition: Alert, Pleasant mood, Cooperative (Mildly impulsive) Orientation Level: Oriented X4 Safety Judgment: Good awareness of safety precautions Awareness of Deficits: Fully aware of deficits Attention: Appears intact Treatment Details KAYLA Harrison cleared patient for participation in PT session Pt received semi-fowlers in bed in NAD. All lines appreciated and managed Pt transitioned from supine to sitting EOB independently At EOB, pt scoots anteriorly and maintains static /dynamic sitting balance in midline without assist or external support Education provided re: NWB status at RLE Pt then transfers sit to stand with contact guard assistance using a rolling walker Pt then transfers bed to chair via stand step with CGA and RW Pt then ambulated short distance in room towards wheelchair with supervision/CGA Wheelchair skills and management assessed on level surfaces Pt then returned to room and ambulated from wheelchair to EOB Pt reported fatigue and elected to transfer back to bed / Pt transitioned to supine independently Pt left in bed in NAD. All lines intact and all needs in reach. RN notified re: session details via secure chat . AM-PAC Basic Mobility: Turning in bed without bedrails: None Lying on back to sitting on edge of flat bed: None Bed to chair: A Little Standing up from chair: A Little Walk in room: A Little Climbing 3-5 stairs: A Lot Mobility Inpatient Raw Score: 19 JH-HLM Goal: 6 Mobility: Highest Level of Mobility Performed (JH-HLM) Walked 10 steps or more (i.e. walked to restroom) Modified [place] Modified Mami (mRS) Modified [place] Score: Moderate disability. Requires some help, but able to walk unassisted. Pre-Morbid mRS: Moderate disability. Requires some help, but able to walk unassisted. Pre-Morbid mRS: Moderate disability. Requires some help, but able to walk unassisted. Patient Education: Education Documentation Precautions, taught by Lyric Olivo PT at 05/24/2024 12:01 PM. Learner: Patient Readiness: Acceptance Method: Explanation Response: Verbalizes Understanding Durable Medical Equipment, taught by Lyric Olivo PT at 05/24/2024 12:01 PM. Learner: Patient Readiness: Acceptance Method: Explanation Response: Verbalizes Understanding Wheelchair Positioning, taught by Lyric Olivo PT at 05/24/2024 12:01 PM. Learner: Patient Readiness: Acceptance Method: Explanation Response: Verbalizes Understanding Pain Management, taught by Lyric Olivo PT at 05/24/2024 12:01 PM. Learner: Patient Readiness: Acceptance Method: Explanation Response: Verbalizes Understanding Home Safety, taught by Lyric Olivo PT at 05/24/2024 12:01 PM. Learner: Patient Readiness: Acceptance Method: Explanation Response: Verbalizes Understanding Fall Prevention, taught by Lyric Olivo PT at 05/24/2024 12:01 PM. Learner: Patient Readiness: Acceptance Method: Explanation Response: Verbalizes Understanding Physical Therapy Plan of Care, taught by Lyric Olivo PT at 05/24/2024 12:01 PM. Learner: Patient Readiness: Acceptance Method: Explanation Response: Verbalizes Understanding Education Comments No comments found. Goal: Encounter Goals Encounter Goals (Active) Patient will transfer bed to/from chair with supervision and least restrictive device to increase upright tolerance and optimize cardiorespiratory function Start: 05/24/24 Expected End: 06/07/24 Patient will ambulate 150 feet over level surfaces with supervision and least restrictive device in prep for household ambulation and community re-integrationn Start: 05/24/24 Expected End: 06/07/24 Patient will propel manual wheelchair 500 feet independently on unlevel surfaces using bilateral UE without adaptive aid independently Start: 05/24/24 Expected End: 06/07/24 Treatment Note: If this is the last documented treatment, then it will signify discharge from acute care prior to discharge from the therapy service and will serve as the discharge summary. Lyric Olivo PT, DPT [employer] AND CONTROLS SUPERVISOR [employer]ATION AND CONTROLS SUPERVISOR * Nikita Contreras MD - 05/24/2024 4:52 AM AUTOMATION AND CONTROLS SUPERVISOR NEUROSURGERY PROGRESS NOTE: Date: 05/24/24 Patients Name: Beny Aden Admit Date: 05/23/2024 Admitting Provider: Ramu Shearer MD : 1965 Service: Neurosurgery Trauma Team Age/Sex: 58 y.o. male Active Problems: Principal Problem: Subarachnoid hemorrhage (CMS/HCC) (HCC) SUBJECTIVE: No neuro events. OBJECTIVE: Vitals: Vitals: 05/23/24 2331 05/24/24 0000 05/24/24 0200 05/24/24 0316 BP: 129/83 (!) 110/58 Pulse: 96 87 Resp: 18 13 Temp: 36.9 ?C (98.5 ?F) 37.1 ?C (98.8 ?F) SpO2: 95% 95% I/O: Intake/Output Summary (Last 24 hours) at 05/24/2024 0452Last data filed at 05/23/2024 1600 Gross per 24 hour Intake 220 ml Output -- Net 220 ml PHYSICAL EXAM: Physical Exam: Neurological: Mental Status: He is alert. GCS: GCS eye subscore is 4. GCS verbal subscore is 5. GCS motor subscore is 6. Comments: Limited by ortho injuries LABS/IMAGING:Labs: UA WBC Date Value Ref Range Status 05/23/2024 6 (H) 0 - 5 /HPF Final HgbDate Value Ref Range Status 05/23/2024 13.3 12.4 - 17.4 g/dL Final HctDate Value Ref Range Status 05/23/2024 40.2 37.1 - 50.8 % Final Plt CountDate Value Ref Range Status 05/23/2024 90 (L) 160 - 381 10*3/uL Final Sodium LvlDate Value Ref Range Status 05/23/2024 134 (L) 136 - 145 mEq/L Final Potassium LvlDate Value Ref Range Status 05/23/2024 3.1 (L) 3.4 - 4.5 mEq/L Final Creatinine LvlDate Value Ref Range Status 05/23/2024 1.58 (H) 0.7 - 1.30 mg/dL Final Prothrombin Time (PT)Date Value Ref Range Status 05/23/2024 15.3 (H) 12 - 14.7 Seconds Final PTTDate Value Ref Range Status 05/23/2024 31.1 22.9 - 35.8 Seconds Final Activated Clotting Time (TEG) RapidDate Value Ref Range Status 05/23/2024 113 86 - 118 sec Final Radiology Imaging Reviewed: - I have personally reviewed all pertinent NSGY imaging studies ASSESSMENT AND PLAN:Assessment: 58-year-old male presenting following syncopal fall femoral electric scooter. CT brain demonstrates left frontal traumatic subarachnoid hemorrhage. Patient has past medical history of alcohol withdrawal, PTSD, alcoholic cirrhosis, newly diagnosed seizure disorder (3 lifetime seizures, reported good compliance with Keppra) and recent trauma in which she had a mechanical trip and fall in which his "legs gave out" and suffered a right fibular fracture and posterior malleolus fracture. Impression:- left frontal tSAH The patient is neurologically unchanged with unchanged imaging. No further neurosurgical interventions are needed. I recommend following the neurological exam and repeating imaging for acute changes. The patient may follow up in neurotrauma clinic ([phone]). Please call [phone] with questions. Nikita Contreras [facility] Neurosurgery MATION AND CONTROLS SUPERVISOR * Hunter Tolbert RN - 05/23/2024 4:20 PM AUTOMATION AND CONTROLS SUPERVISOR Pt arrived from the ED to [address] [place] [address] [employer] AND CONTR[employer] SUPERVISOR [facility] [id number] 16:26:44Pending Results Scheduled Orders Name Type Priority Associated Diagnoses Order Schedule Comprehensive Metabolic Panel Lab Add-On Daily until discontinued starting 05/24/2024, 8 completed Complete Blood Count w/Diff and Platelet Lab STAT Daily until discontinued starting 05/24/2024, 8 completed POCT Glucose Point of Care Testing - Docked Device Routine Every 6 hours (Lab) for 30 Days starting 05/23/2024 until 06/22/2024, 18 completed POCT Glucose Point of Care Testing - Docked Device Routine Every 15 minutes as needed until discontinued starting 05/23/2024 Scheduled Referrals Name Type Priority Associated Diagnoses Order Schedule Ambulatory referral to Home Health Outpatient Referral Routine Closed fracture of right ankle, initial encounter Subarachnoid hemorrhage (CMS/HCC) (HCC) Expected: 05/31/2024 (Approximate), Expires: 05/31/2025 Health Maintenance Due Date Last Done Comments CT Colonography 1965 Colonoscopy 1965 Colorectal Cancer Screening 1965 FIT-DNA 1965 FIT 1965 FOBT 1965 Lipid Panel 1965 Sigmoidoscopy 1965 Annual Physical 1969 Hepatitis A Vaccines (2 of 3 - Hep A Twinrix risk 3-dose series) 08/25/2022 07/28/2022 Hepatitis B Vaccines (2 of 3 - Hep B Twinrix 3-dose series) 08/25/2022 07/28/2022 DTaP/Tdap/Td Vaccines (3 - Td or Tdap) 11/29/2025 11/30/2015, 01/25/2009 Zoster Vaccines Completed 12/09/2021, 06/05/2021 Pneumococcal Vaccine: Pediatrics (0 to 5 Years) and At-Risk Patients (6 to 64 Years) Completed 03/03/2022, 09/06/2018 Influenza Vaccine Completed 03/21/2024, , 03/03/2022, Additional history exists HIB Vaccines Aged Out No longer eligi ble based on patient's age to complete this topic HPV Vaccines Aged Out No longer eligi ble based on patient's age to complete this topic IPV Vaccines Aged Out No longer eligi ble based on patient's age to complete this topic Meningococcal Vaccine Aged Out No leti ever eligible based on patient's age to complete this topic Rotavirus Vaccines Aged Out No longer eligible based on patient's age to complete this topic [facility] [id number] 16:26:44 [facility] [id number] 16:26:44 Diagnosis Subarachnoid hemorrhage (CMS/HCC) (HCC) - Primary Subarachnoid hemorrhage Closed fracture of right ank le, initial encounter Subarachnoid hemorrhage (CMS/HCC) (HCC) Subarachnoid hemorrhage Closed fracture of right ank le, initial encounter Alcoholic cirrhosis (CMS/HCC) (HCC) Alcoholic cirrhosis of liver Hyponatremia Hyposmolality and/or hyponatremia Thrombocytopenia (HCC) Unspecified thrombocytopenia [id number] 16:26:[address] [facility] [id number] 15:22:08 Images from the original note were not included. [id number] Enoxaparin Injection Brand Name(s): Lovenox?; also available generically IMPORTANT WARNING: If you have epidural or spinal anesthesia or a spinal puncture while taking a 'blood thinner' such as enoxaparin, you are at risk for having a blood clot form in or around your spine that could cause you to become paralyzed. Tell your doctor if you are taking other anticoagulants ('blood thinners') such as warfarin (Coumadin), anagrelide (Agrylin), aspirin or nonsteroidal anti-inflammatory drugs (ibuprofen, naproxen), cilostazol (Pletal), clopidogrel (Plavix), dipyridamole (Persantine), eptifibatide (Integrilin), prasugrel (Effient), sulfinpyrazone (Anturane), ticlopidine (Ticlid), and tirofiban (Aggrastat). If you experience any of the following symptoms, call your doctor immediately: numbness, tingling, leg weakness or paralysis, and loss of control over your bladder or bowels. Talk to your doctor about the risk of taking enoxaparin. Keep all appointments with your doctor. WHY is this medicine prescribed? Enoxaparin is used to prevent blood clots in the leg in patients who are on bedrest or who are having hip replacement, knee replacement, or stomach surgery. It is used in combination with aspirin to prevent complications from angina (chest pain) and heart attacks. It is also used in combination with warfarin to treat blood clots in the leg. Enoxaparin is in a class of medications called low molecular weight heparins. It works by stopping the formation of substances that cause clots. HOW should this medicine be used? Enoxaparin comes as an injection in a syringe to be injected just under the skin (subcutaneously) but not into your muscle. It is usually given twice a day. You will probably begin using the drug while you are in the hospital and then use it for a total of 10 to 14 days. Follow the directions on your prescription label carefully, and ask your doctor or pharmacist to explain any part you do not understand. Use enoxaparin exactly as directed. Do not inject more or less of it or inject it more often than prescribed by your doctor. Continue to use enoxaparin even if you feel well. Do not stop taking enoxaparin without talking to your doctor. Your healthcare provider will teach you how to give yourself the shot or arrangements will be made for someone else to give you the shot. Enoxaparin is usually injected in the stomach area. You must use a different area of the stomach each time you give the shot. If you have questions about where to give the shot, ask your healthcare provider. Each syringe has enough drug in it for one shot. Do not use the syringe and needle more than one time. Your doctor, pharmacist, or health care provider will tell you how to dispose of used needles and syringes to avoid accidental injury. Keep syringes and needles out of reach of children. To inject enoxaparin, follow these instructions: ? Wash your hands and the area of skin where you will give the shot. ? Look at the syringe to be sure the drug is clear and colorless or pale yellow. ? Take the cap off the needle. Do not push any air or drug out of the syringe before giving the shot unless your healthcare provider tells you to. ? Lie down and pinch a fold of skin between your finger and thumb. Push the entire needle into the skin and then press down on the syringe plunger to inject the drug. Hold onto the skin the entire time you give the shot. Do not rub the site after you give the shot. Are there OTHER USES for this medicine? This medication may be prescribed for other uses; ask your doctor or pharmacist for more information. What SPECIAL PRECAUTIONS should I follow? Before taking enoxaparin, ? tell your doctor and pharmacist if you are allergic to enoxaparin, heparin, any other drugs, or pork products. ? tell your doctor and pharmacist what prescription and nonprescription medications, vitamins, nutritional supplements, and herbal products you are taking or plan to take while receiving enoxaparin. Your doctor may need to change the doses of your medications or monitor you carefully for side effects. ? the following nonprescription products may interact with enoxaparin: aspirin and nonsteroidal anti-inflammatory drugs (NSAIDs) such as ibuprofen (Advil, Motrin, others) and naproxen (Aleve, Naprosyn, others). Be sure to let your doctor and pharmacist know that you are taking these medications before you start receiving enoxaparin. Do not start any of these medications while receiving enoxaparin without discussing with your healthcare provider. ? tell your doctor if you have an artificial heart valve and if you have or have ever had kidney disease, an infection in your heart, a stroke, a bleeding disorder, ulcers, or a low platelet count. ? tell your doctor if you are , plan to become , or are breast-feeding. If you become while taking enoxaparin, call your doctor. ? if you are having surgery, including dental surgery, tell the doctor or dentist that you are taking enoxaparin. What should I do IF I FORGET to take a dose? Inject the missed dose as soon as you remember it. However, if it is almost time for the next dose, skip the missed dose and continue your regular dosing schedule. Do not inject a double dose to make up for a missed one. What SIDE EFFECTS can this medicine cause? If you experience any of the following symptoms or those listed in the IMPORTANT WARNING section, call your doctor immediately: ? unusual bleeding or bruising ? black or bloody stools ? blood in urine ? swollen ankles and/or feet If you experience a serious side effect, you or your doctor may send a report to the Food and Drug Administration's (FDA) MedWatch Adverse Event Reporting program online (https://www.fda.gov/Safety/MedWatch) or by phone ( ). What should I know about STORAGE and DISPOSAL of this medication? Keep this medication out of reach of children. Store the syringes at room temperature and away from excess heat and moisture (not in the bathroom). Do not use the syringe if it leaks or if the fluid is dark or contains particles. Unneeded medications should be disposed of in special ways to ensure that pets, children, and other people cannot consume them. However, you should not flush this medication down the toilet. Instead, the best way to dispose of your medication is through a medicine take-back program. Talk to your pharmacist or contact your local garbage/recycling department to learn about take-back programs in your community. See the FDA's Safe Disposal of Medicines website (https://goo.gl/c4Rm4p) for more information if you do not have access to a take-back program. It is important to keep all medication out of sight and reach of children as many containers (such as weekly pill minders and those for eye drops, creams, patches, and inhalers) are not child-resistant and young children can open them easily. To protect young children from poisoning, always lock safety caps and immediately place the medication in a safe location - one that is up and away and out of their sight and reach. https://www.upandaway.org What should I do in case of OVERDOSE? In case of overdose, call the poison control helpline at . Information is also available online at https://www.poisonhelp.org/help. If the victim has collapsed, had a seizure, has trouble breathing, or can't be awakened, immediately call emergency services at 486. What OTHER INFORMATION should I know? Keep all appointments with your doctor and the laboratory. Your doctor will order certain lab tests to monitor your enoxaparin therapy. Enoxaparin prevents blood from clotting so it may take longer than usual for you to stop bleeding if you are cut or injured. Avoid activities that have a high risk of causing injury. Call your doctor if bleeding is unusual. Do not let anyone else use your medication. Your prescription is probably not refillable. It is important for you to keep a written list of all of the prescription and nonprescription (kfck-ehn-vbgijgb) medicines you are taking, as well as any products such as vitamins, minerals, or other dietary supplements. You should bring this list with you each time you visit a doctor or if you are admitted to a hospital. It is also important information to carry with you in case of emergencies. This report on medications is for your information only, and is not considered individual patient advice. Because of the changing nature of drug information, please consult your physician or pharmacist about specific clinical use. [employer] [employer] represents that the information provided hereunder was formulated with a reasonable standard of care, and in conformity with professional standards in the field. [employer] [place] [employer] makes no representations or warranties, express or implied, including, but not limited to, any implied warranty of merchantability and/or fitness for a particular purpose, with respect to such information and specifically disclaims all such warranties. Users are advised that decisions regarding drug therapy are complex medical decisions requiring the independent, informed decision of an appropriate health critical care physician, and the information is provided for informational purposes only. The entire monograph for a drug should be reviewed for a thorough understanding of the drug's actions, uses and side effects. The [employer] does not endorse or recommend the use of any drug. The information is not a substitute for medical care. AHFS? Patient Medication Information?. ? Copyright, 2023. [employer]?, [address], [address], [place], [place]. All Rights Reserved. Duplication for commercial use must be authorized by [facility]. Selected Revisions: November 12, 2023. AHFS? Patient Medication Information?. ? Copyright, 2024 [facility] [id number] 15:22:07 Images from the original note were not included. Lovenox - Video Understand that Lovenox is an injectable medication that works to break up clots resulting from DVT and keeps the blood thin. Also, learn how to properly use and store this medication, and possible side effects to be aware of. To view the video go to this web address: https://bit.[email or web address] Or, scan this QR code with your smart phone ? [employer] [facility] [id number] 15:21:57 Images from the original note were not included. Tylenol with Codeine - Video Learn how Tylenol with Codeine works in the brain to change how your body feels and responds to pain, possible side effects to be aware of, and how to properly use and store this medication. To view the video go to this web address: [email or web address] Or, scan this QR code with your smart phone ? [employer] [facility] [facility] [id number] 15:21:46 Images from the original note were not included. [id number] Acetaminophen Brand Name(s): Actamin?, Feverall?, Panadol?, Tempra Quicklets?, Tylenol?, Dayquil? (as a combination product containing Acetaminophen, Dextromethorphan, Pseudoephedrine), NyQuil Cold/Flu Relief? (as a combination product containing Acetaminophen, Dextromethorphan, Doxylamine), Percocet? (as a combination product containing Acetaminophen, Oxycodone) APAP, V-pafgya-xjrr-aminophenol, Paracetamol IMPORTANT WARNING: Taking too much acetaminophen can cause liver damage, sometimes serious enough to require liver transplantation or cause . You might accidentally take too much acetaminophen if you do not follow the directions on the prescription or package label carefully, or if you take more than one product that contains acetaminophen. To be sure that you take acetaminophen safely, you should ? not take more than one product that contains acetaminophen at a time. Read the labels of all the prescription and nonprescription medications you are taking to see if they contain acetaminophen. Be aware that abbreviations such as APAP, AC, Acetaminophen, Acetaminoph, Acetaminop, Acetamin, or Acetam. may be written on the label in place of the word acetaminophen. Ask your doctor or pharmacist if you don't know if a medication that you are taking contains acetaminophen. ? take acetaminophen exactly as directed on the prescription or package label. Do not take more acetaminophen or take it more often than directed, even if you still have fever or pain. Ask your doctor or pharmacist if you do not know how much medication to take or how often to take your medication. Call your doctor if you still have pain or fever after taking your medication as directed. ? be aware that you should not take more than 4000 mg of acetaminophen per day. If you need to take more than one product that contains acetaminophen, it may be difficult for you to calculate the total amount of acetaminophen you are taking. Ask your doctor or pharmacist to help you. ? tell your doctor if you have or have ever had liver disease. ? not take acetaminophen if you drink three or more alcoholic drinks every day. Talk to your doctor about the safe use of alcohol while you are taking acetaminophen. ? stop taking your medication and call your doctor right away if you think you have taken too much acetaminophen, even if you feel well. Talk to your pharmacist or doctor if you have questions about the safe use of acetaminophen or acetaminophen-containing products. WHY is this medicine prescribed? Acetaminophen is used to relieve mild to moderate pain from headaches, muscle aches, menstrual periods, colds and sore throats, toothaches, backaches, reactions to vaccinations (shots), and to reduce fever. Acetaminophen may also be used to relieve the pain of osteoarthritis (arthritis caused by the breakdown of the lining of the joints). Acetaminophen is in a class of medications called analgesics (pain relievers) and antipyretics (fever reducers). It works by changing the way the body senses pain and by cooling the body. HOW should this medicine be used? Acetaminophen comes as a tablet, chewable tablet, capsule, suspension or solution (liquid), extended-release (long-acting) tablet, and orally disintegrating tablet (tablet that dissolves quickly in the mouth), to take by mouth, with or without food. Acetaminophen is available without a prescription, but your doctor may prescribe acetaminophen to treat certain conditions. Follow the directions on the package or prescription label carefully, and ask your doctor or pharmacist to explain any part you do not understand. If you are giving acetaminophen to your child, read the package label carefully to make sure that it is the right product for the age of the child. Do not give children acetaminophen products that are made for adults. Some products for adults and older children may contain too much acetaminophen for a younger child. Check the package label to find out how much medication the child needs. If you know how much your child weighs, give the dose that matches that weight on the chart. If you don't know your child's weight, give the dose that matches your child's age. Ask your child's doctor if you don't know how much medication to give your child. Acetaminophen comes in combination with other medications to treat cough and cold symptoms. Ask your doctor or pharmacist for advice on which product is best for your symptoms. Check nonprescription cough and cold product labels carefully before using two or more products at the same time. These products may contain the same active ingredient(s) and taking them together could cause you to receive an overdose. This is especially important if you will be giving cough and cold medications to a child. Swallow the extended-release tablets whole; do not split, chew, crush, or dissolve them. Place the orally disintegrating tablet ('Meltaways') in your mouth and allow it to dissolve, or chew it before swallowing. Shake the suspension well before each use to mix the medication evenly. Always use the measuring cup or syringe provided by the mortgage servicing specialist to measure each dose of the solution or suspension. Do not switch dosing devices between different products; always use the device that comes in the product packaging. Stop taking acetaminophen and call your doctor if your symptoms get worse, you develop new or unexpected symptoms, including redness or swelling, your pain lasts for more than 10 days, or your fever gets worse or lasts more than 3 days. Also stop giving acetaminophen to your child and call your child's doctor if your child develops new symptoms, including redness or swelling, or if your child's pain lasts for longer than 5 days, or if a fever gets worse or lasts longer than 3 days. Do not give acetaminophen to a child who has a sore throat that is severe or does not go away, or that occurs along with fever, headache, rash, nausea, or vomiting. Call the child's doctor right away, because these symptoms may be signs of a more serious condition. Are there OTHER USES for this medicine? Acetaminophen may also be used in combination with aspirin and caffeine to relieve the pain associated with migraine headache. This medication is sometimes prescribed for other uses; ask your doctor or pharmacist for more information. What SPECIAL PRECAUTIONS should I follow? Before taking acetaminophen, ? tell your doctor and pharmacist if you are allergic to acetaminophen, any other medications, or any of the ingredients in the product. Ask your pharmacist or check the label on the package for a list of ingredients. ? tell your doctor and pharmacist what prescription and nonprescription medications, vitamins, nutritional supplements, or herbal products you are taking or plan to take while taking acetaminophen. Your doctor may need to change the doses of your medications or monitor you carefully for side effects. ? The following nonprescription products may interact with acetaminophen: medications for pain, coughs, fever, and colds. Be sure to let your doctor and pharmacist know that you are taking these medications before you start taking acetaminophen. Do not start any of these medications while taking acetaminophen without discussing with your healthcare provider. ? tell your doctor if you have ever developed a rash after taking acetaminophen. ? tell your doctor if you are , plan to become , or are breast-feeding. If you become while taking acetaminophen, call your doctor. ? if you drink three or more alcoholic beverages every day, do not take acetaminophen. Ask your doctor or pharmacist about the safe use of alcoholic beverages while taking acetaminophen. ? you should know that combination acetaminophen products for cough and colds that contain nasal decongestants, antihistamines, cough suppressants, and expectorants should not be used in children younger than 2 years of age. Use of these medications in young children can cause serious and life-threatening effects or . In children 2 through 11 years of age, combination cough and cold products should be used carefully and only according to the directions on the label. ? if you have phenylketonuria (PKU, an inherited condition in which a special diet must be followed to prevent damage to your brain that can cause severe intellectual disability), you should know that some brands of acetaminophen chewable tablets may be sweetened with aspartame, a source of phenylalanine. What SPECIAL DIETARY instructions should I follow? Unless your doctor tells you otherwise, continue your normal diet. What should I do IF I FORGET to take a dose? This medication is usually taken as needed. If your doctor has told you to take acetaminophen regularly, take the missed dose as soon as you remember it. However, if it is almost time for the next dose, skip the missed dose and continue your regular dosing schedule. Do not take a double dose to make up for a missed one. What SIDE EFFECTS can this medicine cause? Some side effects can be serious. If you experience any of the following symptoms, stop taking acetaminophen and call your doctor immediately or get emergency medical attention: ? red, peeling or blistering skin ? rash ? hives ? itching ? swelling of the face, throat, tongue, lips, eyes, hands, feet, ankles, or lower legs ? hoarseness ? difficulty breathing or swallowing Acetaminophen may cause other side effects. Call your doctor if you have any unusual problems while you are taking this medication. If you experience a serious side effect, you or your doctor may send a report to the Food and Drug Administration's (FDA) MedWatch Adverse Event Reporting program online (https://www.fda.gov/Safety/MedWatch) or by phone ( ). What should I know about STORAGE and DISPOSAL of this medication? Keep this medication in the container it came in, tightly closed, and out of reach of children. Store it at room temperature and away from excess heat and moisture (not in the bathroom). It is important to keep all medication out of sight and reach of children as many containers (such as weekly pill minders and those for eye drops, creams, patches, and inhalers) are not child-resistant and young children can open them easily. To protect young children from poisoning, always lock safety caps and immediately place the medication in a safe location - one that is up and away and out of their sight and reach. https://www.IppiesndSuperplayer.org Unneeded medications should be disposed of in special ways to ensure that pets, children, and other people cannot consume them. However, you should not flush this medication down the toilet. Instead, the best way to dispose of your medication is through a medicine take-back program. Talk to your pharmacist or contact your local garbage/recycling department to learn about take-back programs in your community. See the FDA's Safe Disposal of Medicines website (https://goo.gl/c4Rm4p) for more information if you do not have access to a take-back program. What should I do in case of OVERDOSE? In case of overdose, call the poison control helpline at . Information is also available online at https://www.poisonhelp.org/help. If the victim has collapsed, had a seizure, has trouble breathing, or can't be awakened, immediately call emergency services at [phone]. If someone takes more than the recommended dose of acetaminophen, get medical help immediately, even if the person does not have any symptoms. Symptoms of overdose may include the following: ? nausea ? vomiting ? loss of appetite ? sweating ? extreme tiredness ? unusual bleeding or bruising ? pain in the upper right part of the stomach ? yellowing of the skin or eyes ? flu-like symptoms What OTHER INFORMATION should I know? Before having any laboratory test, tell your doctor and the laboratory personnel that you are taking acetaminophen. Ask your pharmacist any questions you have about acetaminophen. It is important for you to keep a written list of all of the prescription and nonprescription (spwh-lwn-pxnfsnm) medicines you are taking, as well as any products such as vitamins, minerals, or other dietary supplements. You should bring this list with you each time you visit a doctor or if you are admitted to a hospital. It is also important information to carry with you in case of emergencies. This report on medications is for your information only, and is not considered individual patient advice. Because of the changing nature of drug information, please consult your physician or pharmacist about specific clinical use. [employer] [employer] represents that the information provided hereunder was formulated with a reasonable standard of care, and in conformity with professional standards in the field. [employer] [place] [employer] makes no representations or warranties, express or implied, including, but not limited to, any implied warranty of merchantability and/or fitness for a particular purpose, with respect to such information and specifically disclaims all such warranties. Users are advised that decisions regarding drug therapy are complex medical decisions requiring the independent, informed decision of an appropriate health critical care physician, and the information is provided for informational purposes only. The entire monograph for a drug should be reviewed for a thorough understanding of the drug's actions, uses and side effects. [employer] [employer] does not endorse or recommend the use of any drug. The information is not a substitute for medical care. AHFS? Patient Medication Information?. ? Copyright, 2023. [employer]?, [address], [address], [place], [place]. All Rights Reserved. Duplication for commercial use must be authorized by [facility]. Selected Revisions: January 07, 2023. AHFS? Patient Medication Information?. ? Copyright, 2024 [facility]2025-02-06 15:21:37 Images from the original note were not included. [address] Having Ankle Fracture Open Reduction and Internal Fixation (ORIF) Open reduction and internal fixation (ORIF) is a type of treatment to fix a broken bone. It puts the pieces of a broken bone back together so they can heal. Open reduction means the bones are put back in place during a surgery. Internal fixation means that special hardware is used to hold the bone pieces together. This helps the bone heals correctly. The procedure is done by an orthopedic surgeon. This is a healthcare provider with special training in treating bone, joint, and muscle problems. Examples of internal fixation hardware. What to tell your healthcare provider Make sure you tell your provider about all the medicines you take. This includes prescription and gfzk-plc-iimkeuv medicines, such as aspirin. It also includes any vitamins, herbs, and other supplements you take. Tell the provider the last time you had something to eat or drink. Also tell your provider if you: ? Have had any recent changes in your health, such as an infection or fever ? Are sensitive or allergic to any medicines, latex, tape, or anesthetic medicines (local and general) ? Are or think you may be Tests before your surgery You may have an X-ray or a CT scan to look at your ankle. Getting ready for your surgery ORIF often takes place as emergency surgery after an accident or injury. Before this procedure, a healthcare provider will ask about your health history and give you a physical exam. In some cases, ankle fracture ORIF is planned. Your surgery may be done after the swelling in your ankle has gone down. You might need to have your ankle held in place while you wait for your surgery. Talk with your healthcare provider about how to get ready for your surgery. You may need to stop taking some medicines, such as blood thinners and aspirin, before the procedure. If you smoke, you may need to stop before your surgery. Smoking can delay healing. Talk with your provider if you need help to stop smoking. Also, make sure to: ? Ask a family member or friend to take you home from the hospital. You can't drive yourself. ? Arrange for someone to help you at home. ? Follow any directions you're given for not eating or drinking before surgery. ? Follow all other instructions from your provider. You'll be asked to sign a consent form that gives your permission to do the procedure. Read the form carefully. Ask questions if something isn't clear. On the day of surgery Your surgeon will explain the details of your surgery. These details will depend on where your injury is and how serious it is. An orthopedic surgeon with a team of specialized nurses will do the surgery. The preparation and surgery may take a couple of hours. In general, you can expect the following: ? You'll likely have general anesthesia. This is medicine to prevent pain and make you sleep through the surgery. Or you may have local (regional) anesthesia to numb the area and medicine to help you relax and sleep through the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
[2024-06-20] MEDS ORDERED: NA CHLORIDE 0.9% 1,000 ML ONE (21:57)
[2024-06-20] MEDS ORDERED: ONDANSETRON 4 MG/2 ML VIAL ONE ×2 (21:57→22:09)
--- NOTE | 2024-06-20 22:09 | RAD REPORT ---
EXAMINATION: CT ABDOMEN AND PELVIS WITHOUT CONTRAST CLINICAL INDICATION: ABD PAIN TECHNIQUE: CT abdomen and pelvis was performed, without IV contrast, as per department protocol. Axia l, sagittal and coronal reconstructions were obtained. One or more of the following dose reduction techniques were used: Automated exposure control, adjustment of the mA and kV according to the patien t size, and iterative reconstruction. Unless otherwise specified, incidental findings do not require dedicated imaging follow-up. COMPARISON: 09/27/2023 FINDINGS: The lack of intravenous contrast limits the sensitivity of this exam for evaluation of solid visceral organs, vascular structures, and retroperitoneum. LOWER CHEST: The visualized lung bases are clear. Posterior right rib hardware. LIVER:Moderate liver cirrhosis with mild hepatomegaly. Cholecystectomy clips. SPLEEN: Normal size. No focal lesion. PANCREAS: No mass, ductal dilation, or enrique-pancreatic fluid. ADRENALS: Normal; no mass. KIDNEYS AND URETERS: Normal size and contour. No hydronephrosis. URINARY BLADDER: Normal contour. GASTROINTESTINAL TRACT: No evidence of bowel obstruction, significant free fluid, free air or abscess . APPENDIX: Normal appendix. LYMPH NODES: No lymphadenopathy. MUSCULOSKELETAL: Mild multilevel spinal degenerative changes. ADDITIONAL FINDINGS: Recanalized periumbilical vein. IMPRESSION: No acute process is identified. Moderate liver cirrhosis.
[2024-06-20 22:29] LABS: PT Prothrombin Time 12.8 SECONDS (10.0-13.0); Protime INR 1.13
[2024-06-20] MEDS ORDERED: PROMETHAZINE 25 MG TABLET ONE (22:36)
[2024-06-20] MEDS ORDERED: METOCLOPRAMIDE 10 MG/2mL INJ ONE (22:37)
[2024-06-20 22:38] LABS: Albumin 3.5 g/dL (3.4-5.0); Albumin/Globulin Ratio 0.8 (1.1-1.8); Anion Gap 11.3 mEq/L (5.0-15.0); Bilirubin Total 0.8 mg/dL (0.2-1.0); Globulin 4.3 g/dL (2.3-3.5); Potassium 3.3 mEq/L (3.5-5.1); Protein, Total 7.8 g/dL (6.4-8.2)
[2024-06-20] MEDS ORDERED: DIPHENOX/ATROP SULF 1 TAB PO ONE (22:38)
[2024-06-20 22:39] LABS: Absolute Basophils 0.1 K/uL (0-0.5); Absolute Eosinophils 0.4 K/uL (0-0.5); Absolute Lymphocytes (CBC) 1.8 K/uL (0.7-4.9); Absolute Monocytes 0.8 K/uL (0.1-1.3); Absolute Neutrophil 4.8 K/uL (1.8-8.0); Basophils % 1.1 % (0-1.3); Eosinophils % 4.8 % (0-4.4); Hematocrit 36.1 % (39.6-49.0); Lymphocytes % 22.9 % (15.3-44.8); MCH 32.3 pg (27.0-35.0); MCHC 33.3 g/dL (32.0-36.0); MPV 7.7 fL (7.6-11.3); Monocytes % 10.4 % (3.3-12.3); Neutrophils % 60.8 % (41.7-73.7); Nucleated Red Blood Cells % 0.2 % (0-0); Platelets 83 thou/uL (152-406); RBC Red Blood Cell Count 3.72 M/uL (4.33-5.43); Red Cell Distribution Width 17.5 % (12.1-15.2)
[2024-06-20 22:42] LABS: Urine Bilirubin NEGATIVE (Negative); Urine Blood Negative (Negative); Urine Clarity Clear (Clear); Urine Color Light-Yellow (Yellow); Urine Glucose NEGATIVE (Negative); Urine Ketones NEGATIVE (Negative); Urine Microscopic Reflex YN NO UMIC; Urine Nitrite NEGATIVE (Negative); Urine Protein NEGATIVE (Negative); Urine Urobilinogen Normal (Normal)
[2024-06-20 22:53] LABS: Influenza A Ag Negative; Influenza B Ag Negative; SARS-CoV-2 Antigen Rapid Res Negative (Negative)
[2024-06-20 23:11] LABS: Creatine Phosphokinase 256 U/L (39-308)
[2024-06-20 23:14] LABS: C-Reactive Protein < 2.90 mg/L (<3.00)
--- NOTE | 2024-06-21 01:31 | EDPHYS ---
Physician Documentation [facility] Name: Beny Alvarez Age: 58 yrs Sex: Male : 1965 Arrival Date: 06/20/2024 Time: 19:45 Bed 7 Private MD: ED Physician Myke Dyer HPI: 06/20 20:38 This 58 yrs old Male presents to ER via Unassigned with complaints of Flu sp4 Symptoms. 20:39 PMHx: acid reflux; CHF; cirrhosis of liver; Hypertensive disorder; kidney disease; PTSD sp4 (Cholecystectomy); tremors; Heart disease; right eye double vision; Cholecystectomy; Appendectomy;. 06/21 03:16 58-year-old male presents with nausea vomiting diarrhea for the past 2 weeks. Patient sp4 also requests postoperative suture removal from the right lower ankle.. Historical: - Allergies: 06/20 22:01 NSAIDS; bm8 - Home Meds: 22:01 Unable to obtain [Active]; bm8 - PMHx: 22:01 acid reflux; CHF; cirrhosis of liver; heart disease; Hypertensive disorder; kidney bm8 disease; PTSD (Cholecystectomy); right eye double vision; tremors; - PSHx: 22:01 Appendectomy; Cholecystectomy; bm8 - Immunization history:: Adult Immunizations up to date. - Infectious Disease History:: Denies. - Social history:: Smoking status: Patient reports the use of cigarette tobacco products. - Family history:: not pertinent. ROS: 06/21 03:16 Constitutional: Negative for fever, chills, and weight loss, positive nausea sp4 vomiting diarrhea, positive for right lower extremity postoperative incision with sutures All other systems are negative, Exam: 03:14 Constitutional: This is a well developed, well nourished patient who is awake, alert, sp4 chronically ill-appearing male, multiple abrasions left forearm, sutures present right lateral ankle. Postoperative incision in the right lateral ankle and healing stages with sutures in place. Head/Face: Normocephalic, atraumatic. Eyes: Pupils equal round and reactive to light, extra-ocular motions intact. Lids and lashes normal. Conjunctiva and sclera are not injected. Cornea within normal limits. Periorbital areas with no swelling, redness, or edema. ENT: Nares patent. No nasal discharge, no septal abnormalities noted. Tympanic membranes are normal and external auditory canals are clear. Oropharynx with no redness, swelling, or masses, exudates, or evidence of obstruction, uvula midline. Mucous membranes moist. Neck: Trachea midline, no thyromegaly or masses palpated, and no cervical lymphadenopathy. Supple, full range of motion without nuchal rigidity, or vertebral point tenderness. Chest/axilla: Normal chest wall appearance and motion. Nontender with no deformity. No lesions are appreciated. Cardiovascular: Regular rate and rhythm with a normal S1 and S2. No gallops, murmurs, or rubs. Normal PMI, no JVD. No pulse deficits. Respiratory: Lungs have equal breath sounds bilaterally, clear to auscultation and percussion. No rales, rhonchi or wheezes noted. No increased work of breathing, no retractions or nasal flaring. Abdomen/GI: Soft, with normal bowel sounds. No distension or tympany. No guarding or rebound. No evidence of tenderness throughout. Back: No spinal tenderness. No costovertebral tenderness. Skin: Warm, dry with normal turgor. Normal color with no rashes, no lesions, and no evidence of cellulitis. MS/ Extremity: Pulses equal, no cyanosis. Neurovascular intact. Full, normal range of motion. Neuro: Awake and alert, GCS 15, oriented to person, place, time, and situation. Cranial nerves II-XII grossly intact. Motor strength 5/5 in all extremities. Sensory grossly intact. Psych: Awake, alert, with orientation to person, place and time. Behavior, mood, and affect are within normal limits 03:14 ECG was reviewed by the Attending Physician. EKG at 2139 left axis deviation rate 83 Vital Signs: 06/20 21:30 BP 123 / 90; Pulse 99; Resp 18; Temp 98.6; Pulse Ox 98% ; Weight 87.5 kg; Height 5 ft. bm8 10 in. ; Pain 9/10; 22:04 BP 138 / 94; Pulse 83; Resp 18; Temp 98.6; Pulse Ox 95% ; Pain 9/10; bm8 22:25 BP 134 / 86; Pulse 84; Resp 17; Temp 98.6; Pulse Ox 96% ; Pain 7/10; bm8 06/21 01:42 BP 123 / 74; Pulse 87; Resp 17; Temp 98.6; Pulse Ox 100% ; Pain 0/10; bm8 06/20 21:30 Body Mass Index 27.68 (87.50 kg, 177.8 cm) 8 06/20 21:30 Pain Scale: Adult bm8 22:04 Pain Scale: Adult bm8 22:25 Pain Scale: Adult bm8 06/21 01:42 Pain Scale: Adult bm8 [place] Coma Score: 06/20 22:04 Eye Response: spontaneous(4). Motor Response: obeys commands(6). Verbal Response: bm8 oriented(5). Total: 15. 22:25 Eye Response: spontaneous(4). Motor Response: obeys commands(6). Verbal Response: bm8 oriented(5). Total: 15. 06/21 01:42 Eye Response: spontaneous(4). Motor Response: obeys commands(6). Verbal Response: bm8 oriented(5). Total: 15. 03:14 Eye Response: spontaneous(4). Motor Response: obeys commands(6). Verbal Response: sp4 oriented(5). Total: 15. Procedures: 03:16 Suture/Staple removal: Removed 20 sutures, from lateral aspect of right calf and right sp4 ankle, site appears well healed, dressed with gauze bandage, Patient tolerated well, Nonproblematic suture removal from right lateral ankle postoperative incision. MDM: 06/20 21:04 Medical Screening Exam initiated sp4 06/21 00:11 ED course: COMPARISON: 09/27/2023 FINDINGS: The lack of intravenous contrast limits the [facility] sensitivity of this exam for evaluation of solid visceral organs, vascular structures, and retroperitoneum. LOWER CHEST: The visualized lung bases are clear. Posterior right rib hardware. LIVER:Moderate liver cirrhosis with mild hepatomegaly. Cholecystectomy clips. SPLEEN: Normal size. No focal lesion. PANCREAS: No mass, ductal dilation, or enrique-pancreatic fluid. ADRENALS: Normal; no mass. KIDNEYS AND URETERS: Normal size and contour. No hydronephrosis. URINARY BLADDER: Normal contour. GASTROINTESTINAL TRACT: No evidence of bowel obstruction, significant free fluid, free air or abscess. APPENDIX: Normal appendix. LYMPH NODES: No lymphadenopathy. MUSCULOSKELETAL: Mild multilevel spinal degenerative changes. RADIOLOGY SERVICES REPORT ADDITIONAL FINDINGS: Recanalized periumbilical vein. IMPRESSION: No acute process is identified. Moderate liver cirrhosis. Electronically Signed: 06/20/2024 10:07 PM. 03:16 Differential diagnosis: Nonspecific abd pain, gastritis, pancreatitis, viral sp4 gastroenteritis, gastroenteritis. Data reviewed: vital signs, nurses notes, lab test result(s), EKG, radiologic studies, CT scan. Consideration of Admission/Observation Escalation of care including admission/observation considered. ED course: Patient stable for discharge home. Suture removal accomplished right lower ankle postoperative incision.. 06/20 20:38 Order name: COVID-19 Ag + Flu A+B Ag; Complete Time: 23:39 4 06/20 20:38 Order name: CBC with Diff; Complete Time: 23:39 sp4 06/20 20:38 Order name: CMP; Complete Time: 23:39 4 06/20 20:38 Order name: Lipase; Complete Time: 23:39 4 06/20 20:38 Order name: Urinalysis w/ reflexes; Complete Time: 23:39 06/20 20:39 Order name: PT-INR; Complete Time: 23:39 4 06/20 20:39 Order name: Lactate w/ 2H reflex if indic.; Complete Time: 23:39 4 06/20 20:39 Order name: CK; Complete Time: 23:39 sp4 06/20 20:39 Order name: Blood Culture Adult (2) 06/20 20:40 Order name: CRP; Complete Time: 23:39 06/20 20:38 Order name: CT Abd/Pelvis - Without Contrast; Complete Time: 22:22 06/21 00:18 Order name: Femur Right XRAY 06/20 20:38 Order name: IV Saline Lock; Complete Time: 22:07 06/20 20:38 Order name: Labs collected and sent; Complete Time: 22:07 06/21 00:17 Order name: Dressing - Wound; Complete Time: 00:51 06/21 00:17 Order name: Gloves, Sterile; Complete Time: 00:51 06/21 00:17 Order name: Setup Suture Tray; Complete Time: 00:51 4 EC/26 21:39 Rate is 83 beats/min. Rhythm is regular, Normal Sinus Rhythm. Left axis deviation sp4 noted. RI interval is normal. QRS interval is normal. QT interval is normal. No Q waves. T waves are Normal. No ST changes noted. Clinical impression: No evidence of ischemia. Interpreted by me. Reviewed by me. Administered Medications: 22:07 Drug: Ondansetron IVP 8 mg IVP once; over 2 minutes Route: IVP; Site: right antecubital;[facility] 06/21 01:44 Follow up: Response: No adverse reaction [facility] 06/20 22:07 Drug: NS 0.9% IV 1000 ml IV at 1 bolus Per protocol; to be given as a bolus over 60 bm8 minutes Route: IV; Rate: 1 bolus; Site: right antecubital; 06/21 01:44 Follow up: Response: No adverse reaction; IV Status: Completed infusion; IV Intake: bm8 1000ml 06/20 22:57 Drug: metoCLOPramide IVP 10 mg IVP once; over 1 to 2 minutes Route: IVP; Site: right 8 antecubital; 06/21 01:43 Follow up: Response: No adverse reaction [facility] 06/20 22:58 Drug: Diphenoxylate-Atropine PO 2 tabs PO once Route: PO; [facility] 06/21 01:44 Follow up: Response: No adverse reaction [facility] 06/20 22:58 Drug: Promethazine PO 25 mg PO once Route: PO; [facility] 06/21 01:44 Follow up: Response: No adverse reaction bm8 Disposition Summary: 06/21/24 01:30 Discharge Ordered Notes: Clear liquid diet for 24 hours Location: Home sp4 Problem: new sp4 Symptoms: have improved sp4 Condition: Stable sp4 Diagnosis - Acute viral gastroenteritis, nausea vomiting diarrhea, right lower extremity post sp4 operative incision check and suture removal, encounter for suture removal, right thigh pain, physical deconditioning, liver cirrhosis, multiple abrasions left forearm Followup: sp4 - With: Private Physician - When: 7 - 10 days - Reason: Recheck today's complaints Discharge Instructions: - Discharge Summary Sheet sp4 - Clear Liquid Diet, Adult, [id number] sp4 Forms: - Patient Portal Instructions sp4 Prescriptions: - Tramadol 50 mg Oral Tablet - take 1 tablet ORAL route every 8 hours as needed; 12 tablet; Refills: 0, sp4 Product Selection Permitted - Lomotil 2.5-0.025 mg Oral tablet - take 1 tablet ORAL route every 6 hours As needed; 30 tablet; Refills: 0, sp4 Product Selection Permitted - promethazine 25 mg Oral tablet - take 1 tablet ORAL route every 6 hours As needed; 30 tablet; Refills: 0, sp4 Product Selection Permitted - dicyclomine 20 mg Oral tablet - take 1 tablet ORAL route 3 times per day; 30 tablet; Refills: 0, Product sp4 Selection Permitted Signatures: Dispatcher [employer] EDMS Myke Dyer MD MD sp4 Jose F Hsu RN RN bm8 Corrections: (The following items were deleted from the chart) 06/20 20:39 20:39 PROTIME (+INR)+COAG.LAB.BRZ ordered. EDMS EDMS 20:39 20:39 TYPE AND SCREEN+BB.LAB.BRZ ordered. EDMS EDMS 20:39 20:39 LACTATE+C.LAB.BRZ ordered. EDMS EDMS 20:40 20:40 C-REACTIVE PROTEIN+C.LAB.BRZ ordered. EDMS EDMS
--- NOTE | 2024-06-21 01:31 | ER ---
Nurse's Notes [facility] Name: Beny Alvarez Age: 58 yrs Sex: Male : 1965 Arrival Date: 06/20/2024 Time: 19:45 Bed 7 Private MD: Diagnosis: Acute viral gastroenteritis, nausea vomiting diarrhea, right lower extremity post operative incision check and suture removal, encounter for suture removal, right thigh pain, physical deconditioning, liver cirrhosis, multiple abrasions left forearm Presentation: 06/20 21:30 Chief complaint: Patient states: I have had multiple falls felt like passing out bm8 several times, fever body aches, N/V/D and all this has been going on for over two weeks. 21:30 Coronavirus screen: Vaccine status: Patient reports receiving the 2nd dose of the covid bm8 vaccine. Ebola Screen: Patient negative for fever greater than or equal to 101.5 degrees Fahrenheit, and additional compatible Ebola Virus Disease symptoms Patient denies exposure to infectious person. Patient denies travel to an Ebola-affected area in the 21 days before illness onset. No symptoms or risks identified at this time. Initial Sepsis Screen: Does the patient meet any 2 criteria? No. Patient's initial sepsis screen is negative. Does the patient have a suspected source of infection? No. Patient's initial sepsis screen is negative. Risk Assessment: Do you want to hurt yourself or someone else? Patient reports no desire to harm self or others. Onset of symptoms is unknown. 21:30 Method Of Arrival: Ambulatory bm8 21:30 Acuity: KALEY 2 bm8 Triage Assessment: 22:01 General: Appears in no apparent distress. comfortable, Behavior is calm, cooperative, bm8 appropriate for age. Pain: Complains of pain in chest, abdomen, right leg and left leg Pain currently is 9 out of 10 on a pain scale. EENT: No deficits noted. No signs and/or symptoms were reported regarding the EENT system. Neuro: No deficits noted. Level of Consciousness is awake, alert, obeys commands, Oriented to person, place, time, situation, Appropriate for age. Cardiovascular: Reports chest pain, lightheadedness, shortness of breath, syncope, Heart tones S1 S2 present Capillary refill < 3 seconds in bilateral fingers Patient's skin is warm and dry. Rhythm is sinus rhythm. Respiratory: Airway is patent Respiratory effort is even, unlabored, Respiratory pattern is regular, symmetrical, Breath sounds are clear bilaterally. GI: Abdomen is round non-distended, Stools are reported to be loose, diarrhea. Bowel sounds present X 4 quads. Reports lower abdominal pain, upper abdominal pain, diarrhea, nausea, Pain is 9 out of 10 on a pain scale. vomiting. : No signs and/or symptoms were reported regarding the genitourinary system. Derm: Reports he needs his stitches removed from sx two weeks ago. Musculoskeletal: Circulation, motion, and sensation intact. Capillary refill < 3 seconds, in bilateral fingers. Reports weakness in right leg and left leg pain in right leg and left leg. Historical: - Allergies: 22: NSAIDS; bm8 - Home Meds: 22: Unable to obtain [Active]; bm8 - PMHx: 22:01 acid reflux; CHF; cirrhosis of liver; heart disease; Hypertensive disorder; kidney bm8 disease; PTSD (Cholecystectomy); right eye double vision; tremors; - PSHx: 22: Appendectomy; Cholecystectomy; bm8 - Immunization history:: Adult Immunizations up to date. - Infectious Disease History:: Denies. - Social history:: Smoking status: Patient reports the use of cigarette tobacco products. - Family history:: not pertinent. Screenin:04 [facility] ED Fall Risk Assessment (Adult) History of falling in the last 3 months, bm8 including since admission Yes- fall prone (multiple falls) (3 pts) Confusion or Disorientation No (0 pts) Intoxicated or Sedated No (0 pts) Impaired Gait Yes (1 pt) Mobility Assist Device Used No (0 pt) Altered Elimination No (0 pt) Score/Fall Risk Level 3 or more points = High Risk Oriented to surroundings, Maintained a safe environment, Educated pt \T\ family on fall prevention, incl call for assistance when getting out of bed, Assessed \T\ reinforced patient's understanding of fall precautions, Hourly rounding (assess needs \T\ fall precautionary measures) done, Used ambulatory aids as needed (educated on \T\ assisted with), Used gait belt as appropriate Implemented a Fall Risk Plan of Care. Abuse screen: Denies threats or abuse. Nutritional screening: No deficits noted. Tuberculosis screening: No symptoms or risk factors identified. Assessment: 22:04 Reassessment: see triage assessment. bm8 22:25 Reassessment: Patient appears in no apparent distress at this time. Patient and/or bm8 family updated on plan of care and expected duration. Pain level reassessed. Patient is alert, oriented x 3, equal unlabored respirations, skin warm/dry/pink. 06/21 01:42 Reassessment: Patient appears in no apparent distress at this time. Patient and/or bm8 family updated on plan of care and expected duration. Pain level reassessed. Patient is alert, oriented x 3, equal unlabored respirations, skin warm/dry/pink. SUTURES REMOVED BY PROVIDER Patient denies pain at this time. Patient states feeling better. Patient states symptoms have improved. Vital Signs: 06/20 21:30 BP 123 / 90; Pulse 99; Resp 18; Temp 98.6; Pulse Ox 98% ; Weight 87.5 kg; Height 5 ft. bm8 10 in. ; Pain 9/10; 22:04 BP 138 / 94; Pulse 83; Resp 18; Temp 98.6; Pulse Ox 95% ; Pain 9/10; 8 22:25 BP 134 / 86; Pulse 84; Resp 17; Temp 98.6; Pulse Ox 96% ; Pain 7/10; 8 06/21 01:42 BP 123 / 74; Pulse 87; Resp 17; Temp 98.6; Pulse Ox 100% ; Pain 0/10; 8 06/20 21:30 Body Mass Index 27.68 (87.50 kg, 177.8 cm) [facility] 06/20 21:30 Pain Scale: Adult bm8 22:04 Pain Scale: Adult bm8 22:25 Pain Scale: Adult 8 06/21 01:42 Pain Scale: Adult bm8 [place] Coma Score: 06/20 22:04 Eye Response: spontaneous(4). Motor Response: obeys commands(6). Verbal Response: bm8 oriented(5). Total: 15. 22:25 Eye Response: spontaneous(4). Motor Response: obeys commands(6). Verbal Response: bm8 oriented(5). Total: 15. 06/21 01:42 Eye Response: spontaneous(4). Motor Response: obeys commands(6). Verbal Response: bm8 oriented(5). Total: 15. 03:14 Eye Response: spontaneous(4). Motor Response: obeys commands(6). Verbal Response: sp4 oriented(5). Total: 15. ED Course: 06/20 20:07 Patient arrived in ED. gm2 20:08 Myke Dyer MD is Attending Physician. sp4 21:28 Jose F Hsu, RN is Primary Nurse. bm8 21:30 No provider procedures requiring assistance completed. bm8 21:30 Initial lab(s) drawn, by dc, sent to lab. First set of blood cultures drawn by dc, bm8 Urine collected: clean catch specimen, clear, EKG done, by ED staff, reviewed by Myke Dyer MD Flu and/or RSV swab sent to lab. Inserted saline lock: 20 gauge in right antecubital area, using aseptic technique. Blood collected. Flushed with 10 mL NS. Patient maintains SpO2 saturation greater than 95% on room air. 21:46 Second set of blood cultures drawn by dc. bm8 22:00 CT Abd/Pelvis - Without Contrast In Process Unspecified. EDMS 22:01 Triage completed. bm8 22:01 Arm band placed on right wrist. bm8 22:04 Patient has correct armband on for positive identification. Call light in reach. Side bm8 rails up X 1. Adult w/ patient. Client placed on continuous cardiac and pulse oximetry monitoring. NIBP monitoring applied. material planner on. Pulse ox on. NIBP on. Door closed. Noise minimized. Warm blanket given. Pillow given. Verbal reassurance given. Head of bed elevated. 06/21 01:15 Femur Right XRAY In Process Unspecified. EDMS 01:42 Provided Education on: POST ER CARE. bm8 01:42 IV discontinued, intact, bleeding controlled, No redness/swelling at site. Pressure bm8 dressing applied. Administered Medications: 06/20 22:07 Drug: Ondansetron IVP 8 mg IVP once; over 2 minutes Route: IVP; Site: right antecubital;bm8 06/21 01:44 Follow up: Response: No adverse reaction bm8 06/20 22:07 Drug: NS 0.9% IV 1000 ml IV at 1 bolus Per protocol; to be given as a bolus over 60 bm8 minutes Route: IV; Rate: 1 bolus; Site: right antecubital; 06/21 01:44 Follow up: Response: No adverse reaction; IV Status: Completed infusion; IV Intake: bm8 1000ml 06/20 22:57 Drug: metoCLOPramide IVP 10 mg IVP once; over 1 to 2 minutes Route: IVP; Site: right bm8 antecubital; 06/21 01:43 Follow up: Response: No adverse reaction bm8 06/20 22:58 Drug: Diphenoxylate-Atropine PO 2 tabs PO once Route: PO; bm8 06/21 01:44 Follow up: Response: No adverse reaction bm8 06/20 22:58 Drug: Promethazine PO 25 mg PO once Route: PO; bm8 06/21 01:44 Follow up: Response: No adverse reaction bm8 Medication: 06/20 22:04 VIS not applicable for this client. bm8 Intake: 06/21 01:44 IV: 1000ml; Total: 1000ml. bm8 Outcome: 01:30 Discharge ordered by . sp4 01:42 Discharged to home ambulatory, with family, bm8 01:42 Condition: stable 01:42 Discharge instructions given to patient, family, Instructed on discharge instructions, follow up and referral plans. no drinking with medication, no driving heavy equipment, medication usage, safety practices, Demonstrated understanding of instructions, follow-up care, medications, Prescriptions given X 4, 01:46 Patient left the ED. bm8 Signatures: Dispatcher [employer] EDMS Myke Dyer MD MD sp4 Thelma Carter 2 Jose F Hsu, RN RN bm8
[2024-06-21 01:54] VITALS: TEMP 98.6
[2024-06-21 01:59] VITALS: BP 123/74; O2SAT 100
--- NOTE | 2024-06-21 05:35 | RAD REPORT ---
CLINICAL HISTORY: right thigh pain COMPARISON: None. TECHNIQUE: XR FEMUR 2 VIEWS RIGHT 06/21/2024 12:18 AM TASSEL CLIPPER FINDINGS: There is no fracture. Joint spaces are preserved. There is suprapatellar soft tissue swelling. IMPRESSION: No acute osseous findings. Electronically signed by: Jorgito Mendez MD 06/21/2024 01:26 AM TASSEL CLIPPER RP Du e to temporary technical issues with the [email or web address] reporting system, reports are being signed by the in-house radiologist without review as a courtesy to ensure prompt reporting the [facility] radiologist is fully responsible for the content of the report. Transcribed Date/Time: 06/21/2024 5:34 AM
--- NOTE | 2024-06-21 16:44 | EKG ---
Test Date: 2024-06-20 Test Time: 21:39:47 Tromper: CHAI MEASUREMENT RESULTS: Intervals: Rate: 83 ND: 180 QRSD: 126 QT: 376 QTc: 441 [place]: P: 61 ND: 180 QRS: -70 T: 5 INTERPRETIVE STATEMENTS: Normal sinus rhythm Left axis deviation Nonspecific intraventricular block Nonspecific T wave abnormality Abnormal ECG Compared to ECG 05/02/2024 16:09:51 Left-axis deviation now present T-wave abnormality now present Sinus tachycardia no longer present Left anterior fascicular block no longer present Electronically Signed On 06-21-24 16:43:11 [employer] WORK[employer] by Martinez Thomas
== END 2024-06-21 01:46 | disposition home or self-care (01) ==
LOC: ER 19:45
DX: A08.4 Viral intestinal infection, unspecified (principal); S50.812A Abrasion of left forearm, initial encounter; Z48.02 Encounter for removal of sutures; M79.651 Pain in right thigh; K74.60 Unspecified cirrhosis of liver; Z11.52 Encounter for screening for COVID-19; Z72.0 Tobacco use; R53.81 Other malaise
CPT/HCPCS: 96361; 93005; 87040 ×2; 85025; 36415; 82550; 85610; 83605; 81003; 83690; 80053; 86140; 74176; 73552; 96375; 96374; 99285; 87428; Q0169; J2765; J2405 ×2; J7030

== ENCOUNTER 2024-08-09 21:50 | Emergency (ER) | payer OTHER ==
--- OUTSIDE RECORDS SUMMARY | 2024-08-09 22:01 | XMS REPORT | Continuity of Care Document ---
Author Name Unknown Address [address] [facility] [place] [address] [facility] Address [address] [facility] [place] [address] Care Team Providers Care Die Caster Name Role Phone Pcp, Pcp Primary Care Physician Unavailab PANDA Choi Attending Clinician Unavailable PANDA FIELD Attending Clinician Unavailable Doctor Unassigned, [place] Attending Clinician U saleem Guajardo MD, Lizette Anderson Attending Clinician [phone] Nikita Contreras MD Attending Clinician [phone] Jesús Duval MD Attending Clinician [phone] Alejandro Yun MD Attending Clinician [phone] Ramu Shearer MD Attending Clinician [phone] Betty Parker MD Attending Clinician [phone] BETTY PARKER Attending Clinician Unavailable ANDREW MONTANEZ Attending Clinician Unavailable ANDREW MONTANEZ Attending Clinician Unavailable BRENDEN HICKEY Attending Clinician UnavailBRENDEN Paul Attending Clinician UnavailDavon Pearce MD Attending Clinician [phone] DAVON GARCIA Attending Clinician Unavailable Doctor Unassigned, [place] Attending Clinician U saleem Joy RN, Cielo Elder Attending Clinician Unavail able ARPIT RUST Attending Clinician Unavailab Zion Montoya DO Attending Clinician [phone] Tony Abraham MD Attending Clinician [phone] Alan Ballard DO Attending Clinician [phone] Johnny MURRAY, Lisa Liu Attending Clinician [phone] Arpit Rust MD Attending Clinician [phone] Tj MURRAY, [place] Attending Clinician [phone] Zeynep Orozco MD Attending Clinician [phone] RADIOLOGY Attending Clinician Unavailable Radiology Attending Clinician Unavailable ABBI ALICIA Attending Clinician Unavailable PANDA FIELD Admitting Clinician Unavailable Betty Parker MD Admitting Clinician [phone] BETTY PARKER Admitting Clinician Unavailable ANDREW MONTANEZ Admitting Clinician Unavailable ALAN BALLARD Admitting Clinician Unavailable Alan Ballard DO Admitting Clinician [phone] JANELL ORTEGA Admitting Clinician Unavailable Payers Payer Name Policy Type Policy Number Effective Date Expirati on Date Source [facility] [id number] 2022 00:00:00 [facility] [id number] 2010 00:00:00 [facility] [id number] 2010 00:00:00 Problems Condition Name Condition Details Condition Category Status Onset Date Resolution Date Last Treatment Date Treating Clinician Comments Source Alcoholic cirrhosis ([facility]/HCC) Alcoholic cirrhosis ([facility]/HCC) Disease Active 05-31 00:00: 00 Shama Salazar Hyponatrem ia Hyponatrem ia Disease Active 05-31 00:00: 00 Shama Salazar Thrombocyt openia Thrombocyt openia Disease Active 05-31 00:00: 00 Shama Salazar Closed fracture of right ankle, initial encounter Closed fracture of right ankle, initial encounter Disease Active 05-28 00:00: 00 Shama Salazar Subarachno id hemorrhage (CMS/HCC) Subarachno id hemorrhage (CMS/HCC) Disease Active 05-23 00:00: 00 Shama Salazar Closed fracture of right ankle Closed fracture of right ankle Disease Active 05-22 00:00: 00 Shama Salazar Cardiomyop athy, unspecifie d type Cardiomyop athy, unspecifie d type Disease Active 07-12 00:00: 00 [facility] Other forms of dyspnea Other forms of dyspnea Disease Active 07-12 00:00: 00 [facility] acute [facility] Chest pain, unspecifie d type Chest pain, unspecifie d type Disease Active 07-12 00:00: 00 [facility] acute hospital Hypotensio n Hypotensio n Disease Active 2022-04 00:00: 00 [facility] acute hospital Alcoholic cirrhosis of liver with ascites Alcoholic cirrhosis of liver with ascites Disease Recurre nce 2022-04 00:00: 00 [facility] acute hospital Allergies, Adverse Reactions, Alerts Allergy Name Allergy Type Status Severity Reaction(s) Onset Date Inactive Date Treating Clinician Comments Source Nsaids Propensi ty to adverse reaction s Active 05-23 00:00: 00 Shama Salazar NSAIDS (NON-GERMÁN ROIDAL ANTI-INF LAMMATOR Y DRUG) Drug Class Active Unknown-Cmnt 2022-04 00:00: 00 [facility] acute hospital Nsaids (Non-Germán roidal Anti-Inf lammator y Drug) Propensi ty to adverse reaction s Active Unknown - See comments 2022-04 00:00: 00 [facility] acute hospital Nsaids (Non-Germán roidal Anti-Inf lammator y Drug) Propensi ty to adverse reaction s Active Unknown - See comments 2022-04 00:00: 00 [facility] acute hospital NO KNOWN ALLERGIE S Drug Class Active General acute hospital Family History Family Member Diagnosis Comments Start Date Stop Date Sourc e Natural father Cancer Unive [facility] Social History Social Habit Start Date Stop Date Quantity Comments Source Gender identity 2023-07-16 21:00:37 Identifies as male gender (finding) [facility] History of tobacco use Smokes tobacco daily [facility] Sexual orientation M jeff [facility] History of Social function 2024-05-24 00:00:00 2024-05-24 00:00:00 [facility] Alcohol intake 2023-07-13 00:00:00 2023-07-13 00:00:00 1 /d [facility] Alcoholic beverage intake 2023-07-13 00:00:00 2023-07-13 00:00:00 1 /d [facility] Tobacco use and exposure 2023-03-03 00:00:00 2023-03-03 00:00:00 Smokeless tobacco non-user [facility] Sex assigned at 1965 00:00:00 1965 00:00:00 [facility] Smoking Status Start Date Stop Date Source Tobacco smoking consumption unknown [facility] Smokes tobacco daily Shama Salazar Ex-smoker 2023-03-03 00:00:00 2023-03-03 00:00:00 [facility] Medications Ordered Medication Name Filled Medication Name [...] time each day for 20 days. Shama Yu Epic acetaminoph en-codeine (Tylenol w/ Codeine #3) 300-30 MG tablet acetaminoph en-codeine (Tylenol w/ Codeine #3) 300-30 MG tablet 05-31 00:00: 00 06-05 23:59 :00 No [id number] 1{tbl} Q6H Take 1 tablet by mouth [...] Tears Night-Time ointment 05-29 20:28: 07 Yes [id number] 3D Both Eyes, 3 times daily PRN, dry eyes, Starting on Tue05/29/24 at 2028 Shama Salazar ceFAZolin Sodium (Ancef) 2 g in sterile water injection ceFAZolin Sodium (Ancef) 2 g in sterile water injection 2 18:30: 00 05-30 10:35 :00 No 2g Q8H 2 g, Intravenou s, at 200 mL/hr, Administer over 6 Minutes, Every 8 hours, First dose (after last reorder) on Tue05/29/24 at 1830, For 3 doses, Recovery & On Unit, Suspected Indication (Select all that apply): Surgical Prophylaxi s Shama Salazar HYDROmorpho ne PF (Dilaudid) injection 0.5 mg HYDROmorpho ne PF (Dilaudid) injection 0.5 mg 05-29 14:34: 44 05-29 15:10 :59 No .5mg [...] days Shama Yu Epic HYDROcodone -acetaminop hen ([place]) 5-325 MG per tablet 1 tablet HYDROcodone -acetaminop hen ([place]) 5-325 MG per tablet 1 tablet 05-25 [...] Max acetaminop hen = 4000mg/day (4gm/day) Shama Salazar diphenhydrA MINE (BENADryl) injection 12.5 mg diphenhydrA [...] orally or via feeding tube >/= 14 Australian, may dissolve each 20 mEq tablet in 4 oz of water. Allow about 2 minutes for the tablets to disintegra te. Stir before giving to prepare slurry and administer . Please exclude patient's with feeding tube less than 14 Australian (Dobhoff, J-tube, etc) and pediatric and patients Do not crush or chew. Shama Salazar primidone (Mysoline) tablet 50 mg primidone (Mysoline) tablet 50 mg 05-23 21:00: 00 Yes 50mg 50 mg, Oral, Nightly, First dose on Tue05/23/24 at 2100 Shama Salazar mirtazapine (Remeron) tablet 30 mg mirtazapine (Remeron) tablet 30 mg 05-23 21:00: 00 Yes 30mg 30 mg, Oral, Nightly, First dose on Tue05/23/24 at 2100, On hold since Tue05/29/2024 at 2054 until manually unheld Shama Salazar traZODone (Desyrel) tablet 50 mg traZODone (Desyrel) tablet 50 mg 05-23 21:00: 00 05-24 07:31 :26 No 50mg 50 mg, Oral, Nightly, First dose on Tue05/23/24 at 2100 Shama Salazar furosemide (Lasix) tablet 40 mg furosemide (Lasix) tablet 40 mg 05-23 18:00: 00 Yes 40mg QD Take 40 mg by mouth 1 time each day. Shama Salazar spironolact one (Aldactone) tablet 25 mg spironolact one (Aldactone) tablet 25 mg 05-23 18:00: 00 Yes 25mg QD Take 25 mg by mouth 1 time each day. Shama Salazar gabapentin (Neurontin) capsule 100 mg gabapentin (Neurontin) capsule 100 mg 05-23 17:45: 00 Yes 100mg [id number] 3D 100 mg, Oral, 3 times daily, First dose on Tue05/23/24 at 1745 Shama Salazar DULoxetine (Cymbalta) DR capsule 60 mg DULoxetine (Cymbalta) DR capsule 60 mg 05-23 17:45: 00 Yes 60mg QD 60 mg, Oral, Daily, First dose on Tue05/23/24 at 1745, Do not crush or chew. Shama Salazar potassium chloride CR (Klor-Con M20) ER tablet 20 mEq potassium chloride CR (Klor-Con M20) ER tablet 20 mEq 05-23 17:00: 00 Yes 20meq Q.[id number] 3D 20 mEq, Oral, 3 times daily, First dose on Tue05/23/24 at 1700, Best given with food and plenty of water to minimize gastric irritation . Do not crush or chew., On hold since Tue05/27/2024 at 0857 until manually unheld Shama Yu [facility] carvedilol (Coreg) tablet 6.25 mg carvedilol (Coreg) tablet 6.25 mg 05-23 17:00: 00 Yes 6.25mg 6.25 mg, Oral, 2 times daily with meals, First dose on Tue05/23/24 at 1700 Shama Yu [facility] rosuvastati n (Crestor) tablet 40 mg rosuvastati n (Crestor) tablet 40 mg 05-23 17:00: 00 Yes 40mg QD 40 mg, Oral, Daily, First dose on Tue05/23/24 at 1700 [facility] methocarbam ol (Robaxin) tablet 750 mg methocarbam ol (Robaxin) tablet 750 mg 05-23 17:00: 00 Yes 750mg Q.5D 750 mg, Oral, 2 times daily, First dose on Tue05/23/24 at 1700 [facility] traMADol (Ultram) tablet 50 mg traMADol (Ultram) tablet 50 mg 05-23 14:16: 21 05-24 07:31 :32 No 50mg Q6H 50 mg, Oral, Every 6 hours PRN, severe pain (7-10), Starting on Tue05/23/24 at 1416 [facility] sennosides (Senokot) tablet 8.6 mg sennosides (Senokot) tablet 8.6 mg 05-23 09:00: 00 Yes 1{tbl} Q.5D 8.6 mg (1 tablet), Oral, 2 times daily, First dose on Tue05/23/24 at 0900 Shama Yu [facility] famotidine (Pepcid) tablet 20 mg famotidine (Pepcid) tablet 20 mg 05-23 09:00: 00 Yes 20mg QD 20 mg, Oral, Daily, First dose on Tue05/23/24 at 0900 Shama Yu Epic morphine PF injection 4 mg morphine PF injection 4 mg 05-23 07:00: 00 05-23 07:03 :00 No 4mg 4 mg, Intravenou s, Once, On Tue05/23/24 at 0700, For 1 dose, Administer IVP. Shama Yu Epic lidocaine (Xylocaine) 1 % injection 10 mL lidocaine (Xylocaine) 1 % injection 10 mL 05-23 06:50: 00 05-23 07:04 :00 No 10mL 10 mL, Infiltrati on, Once, On Tue05/23/24 at 0650, For 1 dose Shama Yu Epic sodium chloride (NS) 0.9 % flush 10 mL sodium chloride (NS) 0.9 % flush 10 mL 05-23 06:05: 00 Yes 10mL Q12H 10 mL, Intravenou s, Every 12 hours, First dose on Tue05/23/24 at 0605, Administer at least once every 12 hours Shama Yu Epic levETIRAcet am (Keppra) tablet 500 mg levETIRAcet [...] > 300 instructio ns: Contact Provider Shama Yu [facility] glucagon injection 1 mg glucagon injection 1 [...] or npo and notify MD. Shama Yu Epic dextrose 50 % solution 25 g dextrose 50 % solution 25 g 05-23 06:04: 10 Yes 25g 25 g, Intravenou s, As needed, other, if Blood Glucose </= 50 mg/dL, Starting on Tue05/23/24 at 0604, If BG </=50 mg/dL, give 50 mL of D50W IV push STAT and notify MD. Shama Yu Epic dextrose 50 % solution 12.5 g dextrose 50 % solution 12.5 g 05-23 06:04: 10 Yes 12.5g 12.5 g, Intravenou s, As needed, low blood sugar, if Blood Glucose 51- 69 mg/dL, Starting on Tue05/23/24 at 0604, For BG 51-69 mg/dL and patient UNCONSCIOU S OR UNABLE TO SWALLOW OR NPO: Give 25 mL of D50W IV push and notify MD. Shama Salazar ipratropium -albuterol (Duo-Neb) 0.5-2.5 mg/3 [...] hours., Starting on Tue05/23/24 at 0602 Shama Yu Epic sodium chloride (NS) 0.9 % flush 10 [...] 0455, For 1 dose, Administer IVP. Shama Yu [facility] HYDROcodone -acetaminop hen (NORCO) 10-325 mg tablet 1 tablet 11-04 07:00: 00 11-04 06:31 :00 No 1{tbl} 1 tablet, Oral, ONCE NOW, 1 dose, On 11/05/23 at 0200, Routine [facility] amoxicillin -clavulanat e (AUGMENTIN) 875-125 mg per tablet 1 tablet 11-04 07:00: 00 11-04 06:31 :00 No 1{tbl} 1 tablet, Oral, ONCE NOW, 1 dose, On 11/05/23 at 0200, Routine, Reason for Anti-Infec tive: Documented Infection, Documented Infection Site: Skin / Soft Tissue, Duration of Therapy: Once (ED) [facility] acute hospital ondansetron (ZOFRAN (PF)) injection 4 mg 11-04 06:30: 00 11-04 05:33 :00 No 4mg 4 mg, Slow IV Push, ONCE, 1 dose, On 11/05/23 at 0130, CHE [facility] acute hospital metoclopram mello HCl (REGLAN) injection 10 mg 11-04 06:15: 00 11-04 06:31 :00 No 10mg 10 mg, Slow IV Push, ONCE, 1 dose, On 11/05/23 at 0115, CHE [facility] acute hospital morpHINE (4 mg/mL) injection 4 mg 11-04 05:30: 00 11-04 04:44 :00 No 4mg 4 mg, Slow IV Push, ONCE, 1 dose, On 11/05/23 at 0030, STAT [facility] acute hospital iopamidol (ISOVUE 370-500 mL) injection 85 mL 11-04 04:45: 00 11-04 04:45 :00 No [id number] 85mL 85 mL, Intravenou s, ONCE, 1 dose, On Tue11/04/23 at 2345, Routine [facility] acute hospital ondansetron (ZOFRAN (PF)) injection 4 mg 11-04 03:00: 00 11-04 03:02 :00 No 4mg 4 mg, Slow IV Push, ONCE, 1 dose, On Tue11/04/23 at 2200, CHE [facility] acute hospital morpHINE (4 mg/mL) injection 4 mg 11-04 03:00: 00 11-04 03:03 :00 No 4mg 4 mg, Slow IV Push, ONCE, 1 dose, On Tue11/04/23 at 2200, STAT [facility] acute hospital amoxicillin -clavulanat e 875-125 mg per tablet 11-04 00:00: 00 Yes [id number] 1{tbl} Take 1 tablet by mouth every 12 (twelve) hours. [facility] acute hospital traMADoL (ULTRAM) 50 mg tablet 11-04 00:00: 00 Yes [id number] 50mg Take 1 tablet by mouth every 6 (six) hours as needed for Pain (scale 7-10). Indication s: acute pain [facility] acute hospital ondansetron (ZOFRAN) 4 mg tablet 11-04 00:00: 00 Yes [id number] 4mg Take 1 tablet by mouth every 8 (eight) hours as needed for Nausea and Vomiting (N/V). [facility] acute hospital perflutren protein-A microsphr (OPTISON) injection 3 mL 08-29 17:45: 00 08-29 17:43 :00 No [id number] 3mL 3 mL, IV Push, ONCE, 1 dose, On Tue08/30/23 at 1245, Routine [facility] acute hospital tc 99m-tetrofo smin (MYOVIEW) injection 41.8 millicurie 08-29 14:00: 00 08-29 13:55 :00 No [id number] 41.8mCi 41.8 millicurie , Intravenou s, ONCE, 1 dose, On Tue08/30/23 at 0900, Routine [facility] acute hospital regadenoson (LEXISCAN) injection 0.4 mg 08-29 14:00: 00 08-29 14:04 :00 No [id number] .4mg 0.4 mg, IV Push, ONCE, 1 dose, On Tue08/30/23 at 0900, Routine, member of the legislative assembly approving Restricted medication : DAVON GARCIA General acute hospital tc 99m-tetrofo smin (MYOVIEW) injection 15.8 millicurie 08-29 13:00: 00 08-29 12:56 :00 No [id number] 15.8mCi 15.8 millicurie , Intravenou s, ONCE, 1 dose, On Tue08/30/23 at 0800, Routine [facility] acute hospital NaCl 0.9% (NS) injection 5 mL 2022-04 15:30: 00 03-10 18:22 :00 No 5mL 5 mL, Slow IV Push, ONCE, 1 dose, On Tue03/10/23 at 0930, Routine [facility] acute hospital heparin 1,000 unit/mL (10 mL) - dialysis catheter care 2022-04 15:16: 28 Yes 2000U PRN - SEE INSTRUCTIO NS, Starting on Faustina 03/10/23 at 0916, Until Discontinu ed, Routine
For Priming of Ports:&nbs p; &n bsp; After initial saline flush, prime each port with heparin according to the priming volume listed on each catheter port for catheter lock.
[facility] acute hospital Cholecalcif jeannie, Vitamin D3, 50 mcg (2,000 unit) capsule 2022-04 15:01: 52 Yes Take by mouth. [facility] acute hospital cyanocobala min, vitamin B-12, 2,000 mcg Tab 2022-04 15:01: 52 Yes Take by mouth. [facility] acute hospital DULoxetine 60 mg capsule 2022-04 15:01: 52 Yes 60mg Take 1 capsule by mouth in the morning. [facility] acute hospital empaglifloz in 10 mg 2022-04 15:01: 52 Yes 10mg Take 1 tablet by mouth in the morning. [facility] acute hospital furosemide (LASIX) 40 mg tablet 2022-04 15:01: 52 Yes 40mg Take 1 tablet by mouth in the morning. [facility] acute hospital losartan 25 mg tablet 2022-04 15:01: 52 Yes 25mg Take 1 tablet by mouth in the morning. [facility] acute hospital mirtazapine 15 mg tablet 2022-04 15:01: 52 Yes 15mg Take 1 tablet by mouth at bedtime. [facility] acute hospital Pantoprazol e 40 mg delayed-rel ease suspension 2022-04 15:01: 52 Yes 40mg Take 40 mg by mouth in the morning. [facility] acute hospital rosuvastati n 40 mg tablet 2022-04 15:01: 52 Yes 40mg Take 1 tablet by mouth at bedtime. [facility] acute hospital spironolact one (ALDACTONE) 25 mg tablet 2022-04 15:01: 52 Yes 25mg Take 1 tablet by mouth in the morning. [facility] acute hospital thiamine 100 mg tablet 2022-04 15:01: 52 Yes 100mg Take 1 tablet by mouth in the morning. [facility] acute hospital metoprolol succinate XL 50 mg 24 hr tablet 2022-04 13:24: 06 03-10 00:00 :00 No 50mg Take 1 tablet by mouth in the morning. [facility] acute hospital folic acid 0.8 mg Cap 2022-04 11:33: 32 03-10 00:00 :00 No Take by mouth. [facility] acute hospital methocarbam oL 750 mg tablet 2022-04 00:00: 00 Yes [id number] 750mg Take 1 tablet by mouth 2 (two) times daily as needed for Pain (scale 1-3). [facility] acute hospital propranoloL 20 mg tablet 2022-04 00:00: 00 Yes [id number] 20mg Take 1 tablet by mouth in the morning and 1 tablet in the evening. [facility] acute hospital traZODone 50 mg tablet 2022-04 00:00: 00 Yes [id number] 50mg Take 1 tablet by mouth at bedtime. [facility] acute hospital ipratropium -albuteroL 0.5 mg-3 mg(2.5 mg base)/3 mL nebulizer solution 2022-04 00:00: 00 Yes [id number] 3mL Inhale 3 mL 4 (four) times daily. [facility] acute hospital lactulose 10 gram/15 mL solution 2022-04 00:00: 00 Yes [id number] 30mL Take 30 mL by mouth in the morning and 30 mL in the evening. [facility] acute hospital nystatin 100,000 unit/gram ointment 2022-04 00:00: 00 Yes [id number] Apply to area(s) 2 (two) times daily. [facility] acute hospital rifAXIMin 550 mg tablet 2022-04 00:00: 00 Yes [id number] 550mg Take 1 tablet by mouth in the morning and 1 tablet in the evening. [facility] acute hospital foLIC acid 1 mg tablet 2022-04 00:00: 00 Yes [id number] 1mg Take 1 tablet by mouth in the morning. [facility] acute hospital pregabalin (LYRICA) capsule 25 mg 2022-04 15:00: 00 Yes 25mg 25 mg, Oral, DAILY, First dose (after last modificati on) on Tue03/09/23 at 0900, Until Discontinu ed, Routine [facility] acute hospital acetaminoph en (TYLENOL) tablet 650 mg 2022-04 14:35: 40 Yes 650mg 650 mg, Oral, Q6HPRN, Starting on Tue03/09/23 at 0835, Until Discontinu ed, Routine, Pain (scale 1-3) [facility] acute hospital mirtazapine (REMERON) tablet 15 mg 2022-04 03:00: 00 Yes 15mg 15 mg, Oral, QHS, First dose on Tue03/08/23 at 2100, Until Discontinu ed, Routine [facility] acute hospital hydrOXYzine (ATARAX) tablet 10 mg 2022-04 14:46: 24 Yes 10mg 10 mg, Oral, Q6HPRN, Starting on Tue03/08/23 at 0846, Until Discontinu ed, Routine, Itching, Anxiety, insomnia [facility] acute hospital NaCl 0.9% (NS) injection 5 mL 2022-04 13:00: 00 03-08 13:00 :00 No 5mL 5 mL, Slow IV Push, ONCE, 1 dose, On Tue03/08/23 at 0700, Routine [facility] 1,000 unit/mL (10 mL) - dialysis catheter care 2022-04 12:52: 50 Yes 2000U PRN - SEE INSTRUCTIO NS, Starting on Tue03/08/23 at 0652, Until Discontinu ed, Routine
For Priming of Ports:&nbs p; &n bsp; After initial saline flush, prime each port with heparin according to the priming volume listed on each catheter port for catheter lock.
[facility] methocarbam oL (ROBAXIN) tablet 750 mg 2022-04 03:36: 54 Yes 750mg 750 mg, Oral, BIDPRN, Starting on Tue03/07/23 at 2136, Until Discontinu ed, Routine, Muscle Spasms [facility] HYDROcodone -acetaminop hen (NORCO 5) 5-325 mg tablet 1 tablet 2022-04 03:32: 15 Yes 1{tbl} 1 tablet, Oral, Q6HPRN, Starting on Tue03/07/23 at 2132, Until Discontinu ed, Routine, Pain (scale 7-10) [facility] traZODone (DESYREL) tablet 50 mg 2022-04 03:00: 00 Yes 50mg 50 mg, Oral, QHS, First dose on Tue03/07/23 at 2100, Until Discontinu ed, Routine [facility] heparin (porcine) injection 5,000 Units 2022-04 02:00: 00 Yes 5000U 5,000 Units, Subcutaneo us, Q12H, First dose on Tue03/07/23 at 2000, Until Discontinu ed, Routine [facility] ipratropium -albuteroL (DUONEB) 0.5 mg-3 mg(2.5 mg base)/3 mL nebulizer solution 3 mL 2022-04 15:00: 00 Yes 3mL 3 mL, Inhalation , QID, First dose (after last modificati on) on 03/07/23 at 0900, Until Discontinu ed, Routine [facility] foLIC acid (FOLATE) tablet 1 mg 2022-04 15:00: 00 Yes 1mg 1 mg, Oral, DAILY, First dose on 03/06/23 at 0900, Until Discontinu ed, Routine [facility] pantoprazol e (PROTONIX) EC tablet 40 mg 2022-04 15:00: 00 Yes 40mg 40 mg, Oral, DAILY, First dose on 03/06/23 at 0900, Until Discontinu ed, Routine [facility] thiamine (VITAMIN B1) tablet 100 mg 2022-04 15:00: 00 Yes 100mg 100 mg, Oral, DAILY, First dose on 03/06/23 at 0900, Until Discontinu ed, Routine [facility] lactulose (CEPHULAC) solution 30 mL 2022-04 14:00: 00 Yes 30mL 30 mL, Oral, BID, First dose (after last modificati on) on 03/06/23 at 0800, Until Discontinu ed, Routine [facility] rosuvastati n (CRESTOR) tablet 10 mg 2022-04 03:00: 00 Yes 10mg 10 mg, Oral, QHS, First dose (after last modificati on) on 03/05/23 at 2100, Until Discontinu ed, Routine [facility] melatonin (MELATIN) tablet 6 mg 2022-04 03:00: 00 03-08 16:57 :30 No 6mg 6 mg, Oral, QHS, First dose (after last modificati on) on 03/05/23 at 2100, Until Discontinu ed, Routine [facility] rifAXIMin (XIFAXAN) tablet 550 mg 2022-04 02:00: 00 Yes 550mg 550 mg, Oral, BID, First dose on 03/05/23 at 2000, Until Discontinu ed, Routine
Reason for Anti-Infec tive: Empiric Non-Surgic al Prophylaxi s
Durat ion of therapy: 5 days
Sp ecific indication : HE [facility] propranoloL (INDERAL) tablet 20 mg 2022-04 02:00: 00 Yes 20mg 20 mg, Oral, BID, First dose on 03/05/23 at 2000, Until Discontinu ed, Routine [facility] lactulose (CEPHULAC) solution 30 mL 2022-04 02:00: 00 03-06 13:29 :57 No 30mL 30 mL, Enteral, BID, First dose (after last modificati on) on 03/05/23 at 2000, Until Discontinu ed, Routine [facility] heparin 1,000 unit/mL (10 mL) - dialysis [...] for catheter lock.
[facility] melatonin (MELATIN) tablet 6 mg 2022-04 03:00: 00 03-05 15:10 :20 No 6mg 6 mg, Oral, QHS, First dose (after last modificati on) on Tue03/04/23 at 2100, Until Discontinu ed, Routine [facility] acetaminoph en (TYLENOL) 160 mg/5 mL oral liquid 650 mg 2022-04 21:12: 26 03-09 14:36 :27 No 650mg 650 mg, Oral, Q6HPRN, Starting on Tue03/04/23 at 1512, Until 03/09/23 at 0836, Routine, Pain (scale 4-6), Temp > 38.5 C [facility] iopamidol (ISOVUE 370-500 mL) injection 80 mL 2022-04 19:02: 00 03-04 19:02 :00 No [id number] 80mL 80 mL, Intravenou s, ONCE, 1 dose, On Tue03/04/23 at 1315, Rout[facility] KCL (KLOR-CON M20) tablet 20 mEq 2022-04 17:45: 00 03-04 18:11 :00 No 20meq 20 mEq, Oral, ONCE, 1 dose, On Tue03/04/23 at 1145, Routine [facility] folic acid (FOLATE) 1 mg/mL oral solution 1 mg 2022-04 15:00: 00 03-05 15:10 :20 No 1mg 1 mg, Enteral, DAILY, First dose on Tue03/04/23 at 0900, Until Discontinu ed, Routine [facility] hydrOXYzine (ATARAX) tablet 10 mg 2022-04 13:10: 48 03-08 14:46 :34 No 10mg 10 mg, Oral, Q6HPRN, Starting on Tue03/04/23 at 0710, Until Tue03/08/23 at 0846, Routine, Itching, insomnia [facility] rosuvastati n (CRESTOR) tablet 10 mg 2022-04 03:00: 00 03-05 15:10 :20 No 10mg 10 mg, Oral, QHS, First dose (after last modificati on) on Tue03/03/23 at 2100, Until Discontinu ed, Routine [facility] melatonin (MELATIN) tablet 3 mg 2022-04 03:00: 00 03-04 13:11 :40 No 3mg 3 mg, Oral, QHS, First dose (after last modificati on) on Tue03/03/23 at 2100, Until Discontinu ed, Routine [facility] propranoloL (INDERAL) 20 mg/5 mL (4 mg/mL) solution 10 mg 2022-04 02:00: 00 03-05 15:10 :20 No 10mg 10 mg, Enteral, BID, First dose (after last modificati on) on Tue03/03/23 at 1999, Until Discontinu ed, Routine [facility] propranoloL (INDERAL) 20 mg/5 mL (4 mg/mL) solution 10 mg 2022-04 15:45: 00 03-03 21:14 :53 No 10mg 10 mg, Oral, BID, First dose on Tue03/03/23 at 0945, Until Discontinu ed, Routine [facility] NaCl 0.9% (NS) injection 5 mL 2022-04 15:30: 00 03-03 16:28 :00 No 5mL 5 mL, Slow IV Push, ONCE, 1 dose, On Tue03/03/23 at 0930, Routine [facility] heparin 1,000 unit/mL (10 mL) - dialysis catheter care 2022-04 15:27: 18 03-06 13:29 :57 No 2000U PRN - SEE INSTRUCTIO NS, Starting on Tue03/03/23 at 0927, Until [place] 03/06/23 at 0729, Routine
For Priming of Ports:&nbs p; &n bsp; After initial saline flush, prime each port with heparin according to the priming volume listed on each catheter port for catheter lock.
[facility] nystatin (MYCOSTATIN ) ointment 2022-04 15:00: 00 Yes Topical, BID, First dose on Tue03/03/23 at 0900, Until Discontinu ed, Routine [facility] rifAXIMin (XIFAXAN) 20 mg/mL oral suspension 550 mg 2022-04 02:00: 00 03-05 15:10 :20 No 550mg 550 mg, Enteral, BID, First dose (after last modificati on) on Tue03/02/23 at 1999, Until Discontinu ed, Routine
Reason for Anti-Infec tive: Empiric Non-Surgic al Prophylaxi s
Durat ion of therapy: 5 days [facility] lactulose (CEPHULAC) solution 30 mL 2022-04 02:00: 00 03-05 15:10 :20 No 30mL 30 mL, Enteral, QID, First dose (after last modificati on) on Tue03/02/23 at 2000, Until Discontinu ed, Routine [facility] NaCl 0.9% (NS) injection 5 mL 2022-04 22:00: 00 03-02 23:25 :00 No 5mL 5 mL, Slow IV Push, ONCE, 1 dose, On Tue03/02/23 at 1600, Routine [facility] heparin 1,000 unit/mL (10 mL) - dialysis [...] catheter port for catheter lock.
[facility] heparin 1,000 unit/mL injection 2022-04 21:00: 18 03-02 21:00 :18 No PRN, Starting on Tue03/02/23 at 1500, Until Tue03/02/23 at 1500, Routine, Intra-op [facility] acute hospital Cholecalcif jeannie, Vitamin D3, 50 mcg (2,000 unit) capsule 2022-04 20:48: 54 Yes Take by mouth. [facility] acute hospital cyanocobala min, vitamin B-12, 2,000 mcg Tab 2022-04 20:48: 54 Yes Take by mouth. [facility] acute hospital DULoxetine 60 mg capsule 2022-04 20:48: 54 Yes 60mg Take 1 capsule by mouth in the morning. [facility] acute hospital empaglifloz in 10 mg 2022-04 20:48: 54 Yes 10mg Take 1 tablet by mouth in the morning. [facility] acute hospital folic acid 0.8 mg Cap 2022-04 20:48: 54 Yes Take by mouth. [facility] acute hospital furosemide (LASIX) 40 mg tablet 2022-04 20:48: 54 Yes 40mg Take 1 tablet by mouth in the morning. [facility] acute hospital losartan 25 mg tablet 2022-04 20:48: 54 Yes 25mg Take 1 tablet by mouth in the morning. [facility] hospital metoprolol succinate XL 50 mg 24 hr tablet 2022-04 20:48: 54 Yes 50mg Take 1 tablet by mouth in the morning. [facility] hospital mirtazapine 15 mg tablet 2022-04 20:48: 54 Yes 15mg Take 1 tablet by mouth at bedtime. [facility] acute hospital Pantoprazol e 40 mg delayed-rel ease suspension 2022-04 20:48: 54 Yes 40mg Take 40 mg by mouth in the morning. [facility] acute hospital rosuvastati n 40 mg tablet 2022-04 20:48: 54 Yes 40mg Take 1 tablet by mouth at bedtime. [facility] acute hospital spironolact one (ALDACTONE) 25 mg tablet 2022-04 20:48: 54 Yes 25mg Take 1 tablet by mouth in the morning. [facility] acute hospital thiamine 100 mg tablet 2022-04 20:48: 54 Yes 100mg Take 1 tablet by mouth in the morning. [facility] acute hospital lidocaine 1% (PF) (XYLOCAINE) injection 2022-04 20:32: 55 03-02 20:32 :55 No PRN, Starting on Tue03/02/23 at 1432, Until Tue03/02/23 at 1432, Routine, Intra-op [facility] acute hospital FENTanyl PF (SUBLIMAZE (PF)) injection 2022-04 20:32: 42 03-02 20:47 :05 No Slow IV Push, PRN, Starting on Tue03/02/23 at 1432, Until Tue03/02/23 at 1447, Routine, Intra-op [facility] acute hospital midazolam (VERSED) injection 2022-04 20:32: 23 03-02 20:32 :23 No IV Push, PRN, Starting on Tue03/02/23 at 1432, Until Tue03/02/23 at 1432, Routine, Intra-op [facility] midodrine (PROAMATINE ) tablet 10 mg 2022-04 12:00: 00 03-03 15:39 :09 No 10mg 10 mg, Enteral, Q8H, First dose (after last modificati on) on Tue03/02/23 at 0600, Until Discontinu ed, Routine [facility] acute hospital midodrine (PROAMATINE ) tablet 15 mg 2022-04 04:00: 00 03-02 09:53 :15 No 15mg 15 mg, Enteral, Q8H, First dose (after last modificati on) on Tue03/01/23 at 2200, Until Discontinu ed, Routine [facility] acute hospital rifAXIMin (XIFAXAN) 20 mg/mL oral suspension 550 mg 2022-04 02:00: 00 03-03 01:56 :04 No 550mg 550 mg, Oral, BID, First dose on Tue03/01/23 at 2000, Until Discontinu ed, Routine
Reason for Anti-Infec tive: Empiric Non-Surgic al Prophylaxi s
Durat ion of therapy: 5 days [facility] acute hospital NaCl 0.9% (NS) injection 5 mL 2022-04 21:15: 00 03-01 21:50 :00 No 5mL 5 mL, Slow IV Push, ONCE, 1 dose, On Tue03/01/23 at 1515, Routine [facility] acute hospital heparin 1,000 unit/mL (10 mL) - dialysis catheter care 2022-04 21:00: 05 03-02 21:50 :21 No 2000U PRN - SEE INSTRUCTIO NS, Starting on Tue03/01/23 at 1500, Until Tue03/02/23 at 1550, Routine
For Priming of Ports:&nbs p; &n bsp; After initial saline flush, prime each port with heparin according to the priming volume listed on each catheter port for catheter lock.
[facility] acute hospital barium sulfate-NO CHARGE- (VARIBAR NECTOR) 40 % (w/v) oral suspension 30 mL 2022-04 19:30: 00 03-01 19:35 :00 No [id number] 30mL 30 mL, Oral, ONCE, 1 dose, On Tue03/01/23 at 1330, Routine [facility] acute hospital lactulose (CEPHULAC) solution 30 mL 2022-04 18:00: 00 03-03 01:56 :04 No 30mL 30 mL, Oral, QID, First dose (after last modificati on) on Tue03/01/23 at 1200, Until Discontinu ed, Routine [facility] acute hospital rifAXIMin (XIFAXAN) tablet 550 mg 2022-04 02:00: 00 03-01 16:26 :10 No 550mg 550 mg, Oral, BID, First dose on Tue02/28/23 at 2000, Until Discontinu ed, Routine
Reason for Anti-Infec tive: Empiric Therapy for Suspected Infection< br>Empiric Therapy Site: Other
O ther site: HE
Dura tion of therapy: 5 days [facility] acute hospital octreotide (SANDOSTATI N) 500 mcg in NaCl 0.9% (NS) 100 mL infusion 2022-04 17:00: 00 03-01 22:37 :31 No 50ug/h 50 mcg/hr (10 mL/hr), IV Infusion, CONTINUOUS , Starting on Tue02/28/23 at 1100 General acute hospital ceFEPIme (MAXIPIME) 1,000 mg in NaCl 0.9% [...] y
Durat ion of therapy: 5 days [facility] ceFEPIme (MAXIPIME) 2,000 mg in NaCl 0.9% (NS) 100 mL MINI-BAG 2022-04 16:15: 00 02-27 19:48 :00 No 2000mg 2,000 mg, IV Piggyback, ONCE, 1 dose, On 02/27/23 at 1015, Administer over 30 Minutes, 100 mL
Reas on for Anti-Infec tive: Empiric Therapy for Suspected Infection< br>Empiric Therapy Site: Respirator y
Durat ion of therapy: 5 days [facility] sodium phosphate 30 mmol in NaCl 0.9% (NS) 250 mL piggyback 2022-04 14:45: 00 02-27 18:39 :00 No 30mmol 30 mmol, IV Piggyback, ONCE, 1 dose, On 02/27/23 at 0845, Administer over 4 Hours, 250 mL [facility] acute hospital cefTRIAXone (ROCEPHIN) 1,000 mg in NaCl 0.9% [...] n of therapy: 5 days [facility] acetaminoph en (TYLENOL) tablet 650 mg 2022-04 04:04: 36 03-04 21:12 :18 No 650mg 650 mg, Enteral, Q6HPRN, Starting on 02/26/23 at 2304, Until Tue03/04/23 at 1512, Routine, Temp > 38 C [facility] lanolin alcohol-mo- w.pet-ceres (EUCERIN) cream 2022-04 03:30: 48 Yes Topical, PRN, Starting on 02/26/23 at 2230, Until Discontinu ed, Routine, Dermatitis /Rash, Near genital area [facility] rosuvastati n (CRESTOR) tablet 40 mg 2022-04 02:00: 00 03-03 01:56 :04 No 40mg 40 mg, Oral, QHS, First dose (after last modificati on) on 02/26/23 at 2100, Until Discontinu ed, Routine [facility] artificial tears(hypro mellose) (ISOPTO-TEA RS) 0.5 % ophthalmic drops 1 Drop 2022-04 21:16: 50 Yes 1[drp] 1 Drop, Both Eyes, PRN, Starting on 02/26/23 at 1616, Until Discontinu ed, Routine, Dry eyes [facility] pantoprazol e (PROTONIX) 2 mg/mL oral suspension 40 mg 2022-04 14:00: 00 03-05 15:10 :20 No 40mg 40 mg, Enteral, DAILY, First dose on 02/26/23 at 0900, Until Discontinu ed, Routine [facility] lactulose (CEPHULAC) solution 30 mL 2022-04 13:00: 00 03-01 14:09 :36 No 30mL 30 mL, Enteral, QID, First dose (after last modificati on) on 02/26/23 at 0800, Until Discontinu ed, Routine [facility] dexMEDEtomi dine 400 mcg in 0.9 % [...] at maximum allowed dose, contact prescriber .
[facility] acute hospital NaCl 0.9% (NS) IV infusion 1,000 mL 2022-04 23:15: 00 02-27 17:23 :24 No 1000mL at 250 mL/hr, CRRT Circuit, CONTINUOUS , Starting on Tue02/25/23 at 1815, Until 02/27/23 at 1123, Routine [facility] acute hospital midodrine (PROAMATINE ) tablet 20 mg 2022-04 11:00: 00 03-02 02:32 :00 No 20mg 20 mg, Enteral, Q8H, First dose (after last modificati on) on Tue02/25/23 at 0600, Until Discontinu ed, Routine [facility] acute hospital NORepinephr ine 4 mg in 0.9% NaCl [...] at maximum allowed dose, contact prescriber .
[facility] acute hospital albumin (PLASBUMIN) 25 % injection 87.5 g 2022-04 04:45: 00 02-26 01:00 :00 No 1g/kg 87.5 g (1 g/kg ?87.5 kg), IV Infusion, ONCE, 1 dose, On [place] 02/24/23 at 2345, 400 mL
Cara cation: HEPATORENA L SYNDROME (DIAGNOSIS )
Comme nts: Albumin 1 g/kg/day for 2 days (up to a maximum of 100 g/day) [facility] fluid dialysate (PRISMASATE 4K) K 4.0-Ca 2.5, Mg 1.5, HCO3 32, NA 140, CL 113, LACTATE 3, DEX 110, Osm 300 2022-04 03:15: 00 02-27 17:23 :24 No 2800mL/ h 2,800 mL/hr, CRRT Circuit, CONTINUOUS , Starting on Tue02/24/23 at 2215, Until Tue02/27/23 at 1123, Routine [facility] midodrine (PROAMATINE ) tablet 10 mg 2022-04 03:00: 00 02-25 04:29 :59 No 10mg 10 mg, Enteral, Q8H, First dose (after last modificati on) on Tue02/24/23 at 2200, Until Discontinu ed, Routine [facility] CRRT fluid dialysate (PRISMASATE 4K) K 4.0-Ca 2.5, Mg 1.5, HCO3 32, NA 140, CL 113, LACTATE 3, DEX 110, Osm 300 2022-04 01:00: 00 02-25 03:00 :40 No 4000mL/ h 4,000 mL/hr, CRRT Circuit, CONTINUOUS , Starting on Tue02/24/23 at 2000, Until Tue02/24/23 at 2200, Routine [facility] NaCl 0.9% (NS) IV infusion 1,000 mL 2022-04 01:00: 00 02-25 23:05 :02 No 1000mL at 200 mL/hr, CRRT Circuit, CONTINUOUS , Starting on Tue02/24/23 at 2000, Until Tue02/25/23 at 1805, Routine [facility] thiamine (VITAMIN B1) tablet 100 mg 2022-04 14:00: 00 03-05 15:10 :20 No 100mg 100 mg, Enteral, DAILY, First dose (after last modificati on) on Tue02/24/23 at 0900, Until Discontinu ed, Routine [facility] foLIC acid (FOLATE) tablet 1 mg 2022-04 14:00: 00 03-03 21:14 :13 No 1mg 1 mg, Enteral, DAILY, First dose (after last modificati on) on Tue02/24/23 at 0900, Until Discontinu ed [facility] midodrine (PROAMATINE ) tablet 20 mg 2022-04 19:54: 00 02-24 22:29 :47 No 20mg 20 mg, Enteral, Q8H, First dose (after last modificati on) on Tue02/23/23 at 1500, Until Discontinu ed, Routine [facility] albumin (PLASBUMIN) 25 % injection 87.5 g 2022-04 19:34: 00 02-23 20:50 :33 No 1g/kg 87.5 g (1 g/kg ?87.5 kg), IV Infusion, ONCE, 1 dose, On Tue02/23/23 at 1445, 400 mL
Cara cation: HEPATORENA L SYNDROME (DIAGNOSIS )
Comme nts: Albumin 1 g/kg/day for 2 days (up to a maximum of 100 g/day) [facility] lactulose (CEPHULAC) solution 30 mL 2022-04 19:00: 00 02-26 01:25 :38 No 30mL 30 mL, Enteral, TID, First dose (after last modificati on) on Tue02/23/23 at 1400, Until Discontinu ed, Routine [facility] midodrine (PROAMATINE ) tablet 5 mg 2022-04 19:00: 00 02-23 19:51 :03 No 5mg 5 mg, Enteral, TID, First dose (after last modificati on) on Tue02/23/23 at 1400, Until Discontinu ed, Routine [facility] midodrine (PROAMATINE ) tablet 5 mg 2022-04 13:00: 00 02-23 17:39 :19 No 5mg 5 mg, Oral, TID, First dose on Tue02/23/23 at 0800, Until Discontinu ed, Routine [facility] NaCl 0.9% (NS) injection 5 mL 2022-04 13:00: 00 02-23 14:02 :00 No 5mL 5 mL, Slow IV Push, ONCE, 1 dose, On Tue02/23/23 at 0800, Routine [facility] cefTRIAXone (ROCEPHIN) 1,000 mg in NaCl 0.9% [...] Abdominal< br>Duratio n of therapy: 5 days [facility] acute hospital octreotide (SANDOSTATI N) injection 100 mcg 2022-04 19:00: 00 02-24 23:03 :09 No 100ug 100 mcg, Subcutaneo us, TID, First dose on Tue02/22/23 at 1400, Until Discontinu ed, Routine
Indicatio n: Hepatorena l Syndrome General acute hospital NORepinephr ine 4 mg in 0.9% NaCl [...] intravenou s vasopresso r at a time.
[facility] acute hospital QUEtiapine (SEROQUEL) tablet 25 mg 2022-04 01:00: 00 02-24 19:38 :58 No 25mg 25 mg, Oral, BID, First dose on Tue02/21/23 at 1999, Until Discontinu ed, Routine [facility] acute hospital dexMEDEtomi dine 200 mcg in 0.9 % [...] at maximum allowed dose, contact prescriber .
[facility] acute hospital propofoL IV infusion 2022-04 22:25: 53 02-28 [...] vials should be discarded after 12 hours.
[facility] acute hospital etomidate (AMIDATE) injection 10 mg 2022-04 22:00: 00 02-21 21:16 :00 No 10mg 10 mg, Slow IV Push, ONCE, 1 dose, On Tue02/21/23 at 1700, Routine [facility] acute hospital succinylcho line (QUELICIN) injection 120 mg 2022-04 22:00: 00 02-21 21:16 :00 No 120mg 120 mg, IV Push, ONCE, 1 dose, On Tue02/21/23 at 1700, Routine [facility] acute hospital heparin 1,000 unit/mL injection 2,800 Units 2022-04 21:46: 24 03-03 15:40 :07 No 2800U 2,800 Units, Slow IV Push, PRN - SEE INSTRUCTIO NS, Starting on Tue02/21/23 at 1646, Until [place] 03/03/23 at 0940, Routine, for post HD hep lock [facility] acute hospital etomidate (AMIDATE) injection 2022-04 21:07: 00 02-22 00:01 :33 No Slow IV Push, ONCE INTRA PROCEDURE, Starting on Tue02/21/23 at 1607, Until Discontinu ed, Routine, Intra-op [facility] acute hospital succinylcho line (QUELICIN) injection 2022-04 21:07: 00 02-22 00:01 :33 No IV Push, ONCE INTRA PROCEDURE, Starting on Tue02/21/23 at 1607, Until Discontinu ed, Routine, Intra-op [facility] acute hospital lactulose (CEPHULAC) solution 30 mL 2022-04 19:00: 00 02-23 17:39 :19 No 30mL 30 mL, Enteral, TID, First dose on Tue02/21/23 at 1400, Until Discontinu ed, Routine [facility] acute hospital flumazeniL (ROMAZICON) injection 0.3 mg 2022-04 18:15: 00 02-21 17:27 :00 No .3mg 0.3 mg, IV Push, ONCE, 1 dose, On Tue02/21/23 at 1315, CHE
Fa culty member approving Restricted medication : TONY ABRAHAM General acute hospital flumazeniL (ROMAZICON) injection 0.2 mg 2022-04 18:00: 00 02-21 17:14 :00 No .2mg 0.2 mg, IV Push, ONCE, 1 dose, On Tue02/21/23 at 1300, STAT
Fa culty member approving Restricted medication : TONY ABRAHAM [facility] acute hospital LORazepam (ATIVAN) injection 2 mg 2022-04 16:00: 00 02-21 16:39 :00 No 2mg 2 mg, Slow IV Push, ONCE, 1 dose, On Tue02/21/23 at 1100, Routine [facility] acute hospital sulfur hexafluorid e microsphr (LUMASON) injection 5 mL 2022-04 15:30: 00 02-21 15:30 :00 No [id number] 5mL 5 mL, Intravenou s, ONCE, 1 dose, On Tue02/21/23 at 1030, Routine
member of the legislative assembly approving Restricted medication : MARIO GARZA [facility] acute hospital hydrOXYzine (ATARAX) tablet 10 mg 2022-04 09:53: 27 03-03 01:56 :04 No 10mg 10 mg, Oral, Q6HPRN, Starting on Tue02/21/23 at 0453, Until Tue03/02/23 at 1956, Routine, Itching [facility] acute hospital ondansetron (ZOFRAN (PF)) injection 4 mg 2022-04 03:03: 54 03-06 13:29 :57 No 4mg 4 mg, Slow IV Push, Q6HPRN, Nausea and Vomiting (N/V), Starting on Tue02/20/23 at 2203
Do ses of ondansetro n 16 mg and above need to be administer ed via IV piggyback. For Dose >=24mg ECG monitoring is advisable.
[facility] lactulose (CEPHULAC) solution 45 mL 2022-04 01:00: 00 02-21 05:12 :01 No 45mL 45 mL, Oral, TID, First dose (after last modificati on) on Tue02/20/23 at 2000, Until Discontinu ed, Routine [facility] albumin (PLASBUMIN) 25 % injection 93.5 g 2022-04 14:15: 00 02-21 01:00 :00 No 1g/kg 93.5 g (1 g/kg ?93.5 kg), IV Infusion, ONCE, 1 dose, On Tue02/20/23 at 0915, 400 mL
Cara cation: HEPATORENA L SYNDROME (DIAGNOSIS )
Comme nts: Albumin 1 g/kg/day for 2 days (up to a maximum of 100 g/day) [facility] acute hospital D5W IV infusion 1,000 mL 2022-04 13:30: [...] mml/L and patient's Na is 121)
[facility] lactulose (CEPHULAC) solution 15 mL 2022-04 13:00: 00 02-20 18:05 :41 No 15mL 15 mL, Oral, TID, First dose (after last modificati on) on Tue02/20/23 at 0800, Until Discontinu ed, Routine [facility] melatonin (MELATIN) tablet 3 mg 2022-04 05:30: 00 02-26 02:42 :34 No 3mg 3 mg, Oral, QHS, First dose on 02/20/23 at 0030, Until Discontinu ed, Routine [facility] rosuvastati n (CRESTOR) tablet 40 mg 2022-04 02:00: 00 02-26 06:24 :54 No 40mg 40 mg, Oral, QHS, First dose on 02/19/23 at 2100, Until Discontinu ed, Routine [facility] acute hospital D5W IV infusion 1,000 mL 2022-04 21:45: 00 02-20 13:22 :08 No 1000mL at 220 mL/hr, IV Infusion, CONTINUOUS , Starting on 02/19/23 at 1645, Until [place] 02/20/23 at 0822, Routine
To be used as predilutio n fluid through CRRT circuit once CRRT is started to avoid sodium level overcorrec tion (as dialysate sodium concentrat ion is 140 mml/L and patient's Na is 121)
General acute hospital CRRT fluid dialysate (PRISMASATE 4K) K 4.0-Ca 2.5, Mg 1.5, HCO3 32, NA 140, CL 113, LACTATE 3, DEX 110, Osm 300 2022-04 21:30: 00 02-24 17:25 :11 No 2400mL/ h 2,400 mL/hr, CRRT Circuit, CONTINUOUS , Starting on 02/19/23 at 1630, Until [place] 02/24/23 at 1225, Routine [facility] acute hospital NORepinephr ine 4 mg in 0.9% NaCl [...] intravenou s vasopresso r at a time.
[facility] acute hospital albumin (PLASBUMIN) 25 % injection 93.5 g 2022-04 15:00: 00 02-20 12:00 :00 No 1g/kg 93.5 g (1 g/kg ?93.5 kg), IV Infusion, ONCE, 1 dose, On 02/19/23 at 1000, 400 mL
Cara cation: HEPATORENA L SYNDROME (DIAGNOSIS )
Comme nts: Albumin 1 g/kg/day for 2 days (up to a maximum of 100 g/day) [facility] furosemide (LASIX) injection 80 mg 2022-04 15:00: 00 02-19 19:42 :00 No 80mg 80 mg, Slow IV Push, ONCE, 1 dose, On 02/19/23 at 1000, Routine [facility] acute hospital midodrine (PROAMATINE ) tablet 5 mg 2022-04 14:15: 00 02-19 18:23 :31 No 5mg 5 mg, Oral, Q8H, First dose on 02/19/23 at 0915, Until Discontinu ed, Routine [facility] pantoprazol e (PROTONIX) EC tablet 40 mg 2022-04 14:00: 00 02-26 02:42 :34 No 40mg 40 mg, Oral, DAILY, First dose on 02/19/23 at 0900, Until Discontinu ed, Routine [facility] foLIC acid (FOLATE) tablet 1 mg 2022-04 14:00: 00 02-23 17:39 :19 No 1mg 1 mg, Oral, DAILY, First dose on 02/19/23 at 0900, Until Discontinu ed [facility] thiamine (VITAMIN B1) tablet 100 mg 2022-04 14:00: 00 02-23 17:39 :19 No 100mg 100 mg, Oral, DAILY, First dose on 02/19/23 at 0900, Until Discontinu ed, Routine [facility] magnesium sulfate in water 2 gram/50 mL (4 %) infusion 2 g 2022-04 13:30: 00 02-19 15:20 :00 No 2g 2 g, IV Piggyback, Administer over 60 Minutes, ONCE, 1 dose, On 02/19/23 at 0830, Routine [facility] heparin (porcine) injection 5,000 Units 2022-04 13:00: 00 02-23 00:21 :58 No 5000U 5,000 Units, Subcutaneo us, Q12H, First dose on Tue02/19/23 at 0800, Until Discontinu ed, Routine [facility] lactulose (CEPHULAC) solution 15 mL 2022-04 13:00: 00 02-20 06:44 :06 No 15mL 15 mL, Oral, BID, First dose on 02/19/23 at 0800, Until Discontinu ed, Routine [facility] ceFEPIme (MAXIPIME) 1,000 mg in NaCl 0.9% [...] therapy: 72 hours [facility] furosemide (LASIX) injection 40 mg 2022-04 11:00: 00 02-19 10:23 :00 No 40mg 40 mg, Slow IV Push, ONCE, 1 dose, On 02/19/23 at 0600, Routine [facility] acute hospital folic acid 0.8 mg Cap 2022-04 01:32: 29 Yes Take by mouth. [facility] acute hospital rosuvastati n 40 mg tablet 2022-04 01:32: 29 Yes 40mg Take 1 tablet by mouth at bedtime. [facility] acute hospital thiamine 100 mg tablet 2022-04 01:32: 29 Yes 100mg Take 1 tablet by mouth in the morning. [facility] acute hospital Cholecalcif jeannie, Vitamin D3, 50 mcg (2,000 unit) capsule 2022-04 01:31: 38 Yes Take by mouth. [facility] acute hospital cyanocobala min, vitamin B-12, 2,000 mcg Tab 2022-04 01:31: 38 Yes Take by mouth. [facility] acute hospital DULoxetine 60 mg capsule 2022-04 01:31: 38 Yes 60mg Take 1 capsule by mouth in the morning. [facility] acute hospital empaglifloz in 10 mg 2022-04 01:31: 38 Yes 10mg Take 1 tablet by mouth in the morning. [facility] acute hospital furosemide (LASIX) 40 mg tablet 2022-04 01:31: 38 Yes 40mg Take 1 tablet by mouth in the morning. [facility] acute hospital losartan 25 mg tablet 2022-04 01:31: 38 Yes 25mg Take 1 tablet by mouth in the morning. [facility] acute hospital metoprolol succinate XL 50 mg 24 hr tablet 2022-04 01:31: 38 Yes 50mg Take 1 tablet by mouth in the morning. [facility] acute hospital mirtazapine 15 mg tablet 2022-04 01:31: 38 Yes 15mg Take 1 tablet by mouth at bedtime. [facility] acute hospital Pantoprazol e 40 mg delayed-rel ease suspension 2022-04 01:31: 38 Yes 40mg Take 40 mg by mouth in the morning. [facility] acute hospital spironolact one (ALDACTONE) 25 mg tablet 2022-04 01:31: 38 Yes 25mg Take 1 tablet by mouth in the morning. [facility] acute hospital escitalopra m (Lexapro) 10 MG tablet escitalopra m (Lexapro) 10 MG tablet 10-06 00:00: 00 05-23 00:00 :00 No 10mg 10 mg = 1 tab, PO, Daily, 0 Refill(s) Shama Salazar folic acid (Folvite) 1 MG tablet folic [...] tab, PO, Daily, 0 Refill(s) Shama Salazar losartan (Cozaar) 100 MG tablet losartan (Cozaar) 100 MG tablet 10-06 00:00: 00 05-23 00:00 :00 No 100mg 100 mg = 1 tab, PO, Daily, 0 Refill(s) Shama Salazar amLODIPine (Norvasc) 10 MG tablet amLODIPine (Norvasc) 10 MG tablet 10-06 00:00: 00 05-23 00:00 :00 No 10mg 10 mg = 1 tab, PO, Daily, 0 Refill(s) Shama Salazar methocarbam ol (Robaxin) 750 MG tablet methocarbam [...] tab, PO, Daily, 0 Refill(s) Colleenelsa bruno [place] [facility] traZODone (Desyrel) 50 MG tablet traZODone (Desyrel) 50 MG tablet 10-06 00:00: 00 05-23 00:00 :00 No 50mg Take 50 mg by mouth at bedtime. Shama Yu [facility] topiramate 50 MG tablet topiramate 50 MG tablet 10-06 00:00: 00 05-23 00:00 :00 No 50mg 50 mg = 1 tab, PO, Daily, 0 Refill(s) Shama Yu [facility] pantoprazol e (ProtoNix) 40 MG EC tablet pantoprazol e (ProtoNix) 40 MG EC tablet 10-06 00:00: 00 05-23 00:00 :00 No 40mg Take 40 mg by mouth in the morning. Take before meals. Do not crush, chew, or split. [facility] Vital Signs Vital Name Observation Time Observation Value Comments S ource Heart rate 2024-05-31 11:36:05 87 /min [facility] Respiratory rate 2024-05-31 11:36:05 17 /min [facility] Oxygen saturation in Arterial blood by Pulse oximetry 2024-05-31 11:36:05 98 /min [facility] Body temperature 2024-05-31 11:35:58 36.83 Maru [facility] Systolic blood pressure 2024-05-31 11:35:44 135 mm[Hg] [facility] Diastolic blood pressure 2024-05-31 11:35:44 85 mm[Hg] [facility] Body height 2024-05-24 12:00:00 180 cm [facility] Heart rate 2024-05-31 11:36:05 87 /min [facility] Respiratory rate 2024-05-31 11:36:05 17 /min [facility] Oxygen saturation in Arterial blood by Pulse oximetry 2024-05-31 11:36:05 98 /min [facility] Body temperature 2024-05-31 11:35:58 36.83 Maru Lloyd Yu [facility] Systolic blood pressure 2024-05-31 11:35:44 135 mm[Hg] Lloyd kong [facility] Diastolic blood pressure 2024-05-31 11:35:44 85 mm[Hg] [facility] Her kong [facility] Body height 2024-05-24 12:00:00 180 cm Adolfo Yu [facility] Systolic blood pressure 2023-11-05 06:31:00 162 mm[Hg] [facility] Diastolic blood pressure 2023-11-05 06:31:00 98 mm[Hg] [facility] Heart rate 2023-11-05 06:31:00 103 /min Unive [facility] Body temperature 2023-11-05 06:31:00 37.44 Maru [facility] Respiratory rate 2023-11-05 06:31:00 18 /min [facility] Oxygen saturation in Arterial blood by Pulse oximetry 2023-11-05 06:31:00 97 /min [facility] Body height 2023-11-05 01:46:00 175.3 cm [facility] Body weight 2023-11-05 01:46:00 88.451 kg [facility] BMI 2023-11-05 01:46:00 28.80 kg/m2 [facility] Systolic blood pressure 2023-07-13 20:35:00 123 mm[Hg] [facility] Diastolic blood pressure 2023-07-13 20:35:00 72 mm[Hg] [facility] Heart rate 2023-07-13 20:35:00 84 /min Unive [facility] Body temperature 2023-07-13 20:35:00 37.06 Maru [facility] Respiratory rate 2023-07-13 20:35:00 19 /min [facility] Body height 2023-07-13 20:35:00 177.8 cm Univ [facility] Body weight 2023-07-13 20:35:00 93.016 kg [facility] BMI 2023-07-13 20:35:00 29.42 kg/m2 [facility] Oxygen saturation in Arterial blood by Pulse oximetry 2023-07-13 20:35:00 97 /min [facility] Systolic blood pressure 2023-03-10 19:24:00 101 mm[Hg] [facility] Diastolic blood pressure 2023-03-10 19:24:00 61 mm[Hg] [facility] Heart rate 2023-03-10 19:24:00 101 /min Unive [facility] Body temperature 2023-03-10 19:24:00 36.28 Maru [facility] Respiratory rate 2023-03-10 19:24:00 18 /min [facility] Body weight 2023-03-10 19:24:00 77.6 kg [facility] BMI 2023-03-10 19:24:00 25.25 kg/m2 [facility] Oxygen saturation in Arterial blood by Pulse oximetry 2023-03-10 14:31:00 97 /min [facility] Body height 2023-03-01 02:00:00 175.3 cm [facility] Systolic blood pressure 2023-03-04 17:13:00 142 mm[Hg] [facility] Diastolic blood pressure 2023-03-04 17:13:00 75 mm[Hg] [facility] Heart rate 2023-03-04 17:13:00 78 [facility] Body temperature 2023-03-04 17:13:00 37.11 Maru [facility] Respiratory rate 2023-03-04 17:13:00 18 /min [facility] Oxygen saturation in Arterial blood by Pulse oximetry 2023-03-04 17:13:00 96 /min [facility] Body weight 2023-03-03 19:30:00 86.5 kg [facility] BMI 2023-03-03 19:30:00 28.15 kg/m2 [facility] Body height 2023-03-01 02:00:00 175.3 cm [facility] Procedures Procedure Date / Time Performed Performing Clinician Source POCT Glucose 2024-06-22 00:00:00 [facility] COMPREHENSIVE METABOLIC PANEL 2024-05-31 05:25:00 Elsa Field [facility] COMPLETE BLOOD COUNT W/DIFF AND PLATELET 2024-05-31 05:25:00 Elsa Field [facility] COMPLETE BLOOD COUNT 2024-05-31 05:25:00 Elsa Field [facility] AUTOMATED DIFFERENTIAL 2024-05-31 05:25:00 Elsa Field [facility] BASIC METABOLIC PANEL 2024-05-30 17:54:00 AdelaBasilio betts Shahnaz [facility] COMPREHENSIVE METABOLIC PANEL 2024-05-30 02:21:00 Elsa Field [facility] COMPLETE BLOOD COUNT W/DIFF AND PLATELET 2024-05-30 02:21:00 Elsa Field [facility] COMPLETE BLOOD COUNT 2024-05-30 02:21:00 Elsa Field [facility] AUTOMATED DIFFERENTIAL 2024-05-30 02:21:00 Elsa Field [facility] [place] 1 HOUR INTRAOPERATIVE 2024-05-29 13:12:00 Tony Back [facility] US - ANESTHESIA PERFORMED 2024-05-29 13:00:02 Bonnie Cardoso [facility] ORIF, ANKLE 2024-05-29 09:30:00 Tony Back [facility] COMPREHENSIVE METABOLIC PANEL 2024-05-29 05:27:00 Elsa Field [facility] TYPE AND SCREEN 2024-05-29 05:27:00 Gabriela West [facility] COMPLETE BLOOD COUNT W/DIFF AND PLATELET 2024-05-29 05:27:00 Elsa Field [facility] COMPLETE BLOOD COUNT 2024-05-29 05:27:00 Elsa Field [facility] AUTOMATED DIFFERENTIAL 2024-05-29 05:27:00 Emir [facility] PROTIME-INR 2024-05-28 13:44:00 Baron Gaytan [facility] COMPREHENSIVE METABOLIC PANEL 2024-05-28 02:10:00 Elsa Field [facility] COMPLETE BLOOD COUNT W/DIFF AND PLATELET 2024-05-28 02:10:00 Elsa Field [facility] COMPLETE BLOOD COUNT 2024-05-28 02:10:00 Emir [facility] AUTOMATED DIFFERENTIAL 2024-05-28 02:10:00 Elsa Field [facility] EEG CONTINUOUS MONITORING 2024-05-27 21:50:00 Betty Parker [facility] COMPREHENSIVE METABOLIC PANEL 2024-05-27 04:28:00 Elsa Field [facility] COMPLETE BLOOD COUNT W/DIFF AND PLATELET 2024-05-27 04:28:00 Elsa Field [facility] COMPLETE BLOOD COUNT 2024-05-27 04:28:00 Emir [facility] AUTOMATED DIFFERENTIAL 2024-05-27 04:28:00 Emir [facility] COMPREHENSIVE METABOLIC PANEL 2024-05-26 01:54:00 Emir [facility] COMPLETE BLOOD COUNT W/DIFF AND PLATELET 2024-05-26 01:54:00 Emir [facility] COMPLETE BLOOD COUNT 2024-05-26 01:54:00 Elsa Field [facility] AUTOMATED DIFFERENTIAL 2024-05-26 01:54:00 Emir [facility] XR ANKLE 3+ VIEWS RIGHT 2024-05-25 13:00:00 Kevin Villegas [facility] CT ANKLE RIGHT WO IV CONTRAST 2024-05-25 12:46:55 Kevin Villegas [facility] COMPREHENSIVE METABOLIC PANEL 2024-05-25 02:37:00 Emir [facility] COMPLETE BLOOD COUNT W/DIFF AND PLATELET 2024-05-25 02:35:00 Emir [facility] PLATELET COUNT MANUAL 2024-05-25 02:35:00 Gabriela West [facility] COMPLETE BLOOD COUNT 2024-05-25 02:35:00 Emir [facility] AUTOMATED DIFFERENTIAL 2024-05-25 02:35:00 Emir [facility] POTASSIUM LEVEL 2024-05-24 08:38:00 Gabriela West [facility] SODIUM LEVEL 2024-05-24 08:38:00 Gabriela West [facility] COMPREHENSIVE METABOLIC PANEL 2024-05-24 04:25:00 Elsa Field [facility] HEMOGLOBIN A1C 2024-05-24 04:25:00 Gabriela West [facility] COMPLETE BLOOD COUNT W/DIFF AND PLATELET 2024-05-24 04:25:00 Elsa Field [facility] PT AND PTT 2024-05-24 04:25:00 Elsa Field [facility] COMPLETE BLOOD COUNT 2024-05-24 04:25:00 Elsa Field [facility] AUTOMATED DIFFERENTIAL 2024-05-24 04:25:00 Elsa Field [facility] UA WITH CULTURE IF INDICATED 2024-05-23 21:39:00 [facility] IV [facility]AST 2024-05-23 05:42:00 Elsa Field [facility] TYPE AND SCREEN 2024-05-23 02:56:00 Elsa Field [facility] TROPONIN I HIGH SENSITIVITY CARESET (1ST HR) 2024-05-23 02:56:00 [facility]+ [facility]IE[facility] 2024-05-23 02:28:38 [facility] ANKLE 3+ VIEWS RIGHT 2024-05-23 02:28:07 [facility] TIBIA FIBULA 2 VIEWS RIGHT 2024-05-23 02:26:49 [facility] THROMBOELASTOGRAPH RAPID 2024-05-23 01:56:00 Elsa Field [facility] BASIC METABOLIC PANEL 2024-05-23 01:55:00 [facility] HE[facility]CTION [facility]EL 2024-05-23 01:55:00 [facility] ETHANOL L[facility]EL 2024-05-23 01:55:00 Santino [facility] CREATINE KINASE (CK TOTAL) 2024-05-23 01:55:00 [facility] COMPLETE [facility]LOOD COUNT W/DIFF AND PLATELET 2024-05-23 01:55:00 Santino [facility] TROPONIN I HIGH SENSITIVITY CARESET 2024-05-23 01:55:00 Santino Ashajayden Mims [facility] TROPONIN I HIGH SENSITIVITY CARESET (BASELINE) 2024-05-23 01:55:00 Santino Ashajayden Mims [facility] LACTIC ACID WITH 2 HOUR REFLEX 2024-05-23 01:55:00 Licha Dejayden Mims [facility] PT AND PTT 2024-05-23 01:55:00 Elsa Field [facility] COMPLETE BLOOD COUNT 2024-05-23 01:55:00 Santino Ashajayden Mims [facility] AUTOMATED DIFFERENTIAL 2024-05-23 01:55:00 Santino Asha [facility] ECG 12-LEAD 2024-05-23 01:53:02 Santino Ashajayden Mims [facility] CT EXTERNAL HEAD 2024-05-22 00:05:00 Lizette Guajardo [facility] CT TRAUMA THORAX W CONTRAST 2023-11-05 04:16:45 Andrew Montanez [facility] CT TRAUMA THORACIC SPINE WO CONTRAST 2023-11-05 04:16:45 Andrew Montanez [facility] CT TRAUMA ABDOMEN PELVIS W CONTRAST 2023-11-05 04:16:45 Andrew Montanez [facility] CT TRAUMA LUMBAR SPINE WO CONTRAST 2023-11-05 04:16:45 Andrew Montanez [facility] CT MAXILLOFACIAL/MANDIBLE WO CONTRAST 2023-11-05 04:15:40 Andrew Montanez [facility] CT TRAUMA CERVICAL SPINE WO CONTRAST 2023-11-05 04:15:40 Andrew Montanez [facility] XR KNEE 3 VW RIGHT 2023-11-05 02:46:21 Andrew Montanez [facility] URINALYSIS 2023-11-05 02:30:00 Andrew Montanez [facility] LIPASE 2023-11-05 02:24:00 Andrew Montanez [facility] MAGNESIUM 2023-11-05 02:24:00 Andrew Montanez [facility] COMP. METABOLIC PANEL ([id number]) 2023-11-05 02:24:00 Conchitajoseindia Arvindomkar Russell [facility] CBC WITH DIFF 2023-11-05 02:24:00 Andrew Montanez [facility] REFERRAL- REQUEST/RESPONSE 2023-09-12 20:19:10 Doctor Unassigned, [place] [facility] REFERRAL- REQUEST/RESPONSE 2023-09-02 18:58:35 Doctor Unassigned, [place] [facility] TRANSTHORACIC ECHO (TTE) COMPLETE W/ CONTRAST 2023-08-30 15:25:00 Jose, [facility] MYOCARDIUM PERFUSION STRESS AND REST 2023-08-30 14:40:00 Jose, [facility] MYOCARDIUM PERFUSION STRESS AND REST 2023-08-30 14:40:00 Jose, [facility] MYOCARDIUM PERFUSION STRESS AND REST 2023-08-30 14:40:00 Jose, [facility] MYOCARDIUM PERFUSION STRESS AND REST 2023-08-30 14:40:00 Jose, [facility] REFERRAL- REQUEST/RESPONSE 2023-06-21 06:01:00 Doctor Unassigned, [place] [facility] REFERRAL- REQUEST/RESPONSE 2023-06-03 06:01:00 Doctor Unassigned, [place] [facility] ADVANCE DIRECTIVE 2023-03-16 06:01:00 Doctor Unassigned, [place] [facility] MAGNESIUM 2023-03-10 09:42:00 Jayme Seay [facility] BASIC METABOLIC PANEL (NA, K, CL, CO2, GLUCOSE, BUN, CREATININE, CA) 2023-03-10 09:42:00 Jayme Seay [facility] CBC WITH DIFF 2023-03-10 09:42:00 Jayme Seay Spiritism [facility] MAGNESIUM 2023-03-09 11:08:00 [facility] (NA, K, CL, CO2, GLUCOSE, BUN, CREATININE, CA) 2023-03-09 11:08:00 Jayme Seay [facility] CBC WITH DIFF 2023-03-09 11:08:00 Jayme Seay [facility] COMP. METABOLIC PANEL (99178) 2023-03-05 09:46:00 Christopher Heck [facility] CBC WITH DIFF 2023-03-05 09:46:00 [facility] BLOOD CULTURE SCREEN 2023-03-05 00:38:00 Dionte [facility] BLOOD CULTURE SCREEN 2023-03-05 00:31:00 Dionte [facility] CT STROKE ANGIOGRAM HEAD 2023-03-04 19:07:53 [facility] NECK 2023-03-04 19:07:53 Johnny [facility] CT STROKE HEAD WO CONTRAST 2023-03-04 19:06:48 Johnny [facility] TROPONIN I 2023-03-04 18:49:00 [facility]IC METABOLIC PANEL (NA, K, CL, CO2, GLUCOSE, BUN, CREATININE, CA) 2023-03-04 18:49:00 Dionte [facility] CBC WITHOUT DIFF 2023-03-04 18:49:00 [facility] / INR 2023-03-04 18:49:00 Johnny [facility] ACTIVATED PARTIAL THRMPLAS NBA 2023-03-04 18:49:00 Lisa Turner [facility] HB INDIRECT ANTIGLOBULIN TEST 2023-03-04 18:49:00 Christopher Heck [facility] POCT GLUCOSE (AUTOMATED) 2023-03-04 18:43:00 Lisa Turner [facility] CBC WITH DIFF 2023-03-04 11:12:00 Dionte [facility] BASIC METABOLIC PANEL (NA, K, CL, CO2, GLUCOSE, BUN, CREATININE, CA) 2023-03-04 11:12:00 Dionte [facility] MAGNESIUM 2023-03-04 11:12:00 Dionte [facility] PHOSPHORUS 2023-03-04 11:12:00 Gordomalcolm [facility] PHOSPHORUS 2023-03-04 11:12:00 Dionte [facility] MAGNESIUM 2023-03-04 11:12:00 Dionte [facility] BASIC METABOLIC PANEL (NA, K, CL, CO2, GLUCOSE, BUN, CREATININE, CA) 2023-03-04 11:12:00 Dionte [facility] CBC WITH DIFF 2023-03-04 11:12:00 Dionte [facility] XR KUB 2023-03-03 09:03:00 Loghin [facility] XR KUB 2023-03-03 09:03:00 Loghin [facility] XR KUB 2023-03-03 08:46:00 Loghin, [facility] XR KUB 2023-03-03 08:46:00 Loghin, [facility] XR KUB 2023-03-03 07:38:00 Loghin, [facility] XR KUB 2023-03-03 07:38:00 Loghin, [facility] XR ABDOMEN 1 VW 2023-03-03 05:28:00 Gordomalcolm [facility] XR ABDOMEN 1 VW 2023-03-03 05:28:00 Dionte [facility] PROTHROMBIN TIME / INR 2023-03-02 19:10:00 Gifty Smith [facility] PROTHROMBIN TIME / INR 2023-03-02 19:10:00 Gifty Smith [facility] IRON PANEL 2023-03-02 10:36:00 Carlos Vincent [facility] FERRITIN SERUM 2023-03-02 10:36:00 Carlos Vincent [facility] CBC WITH DIFF 2023-03-02 10:36:00 Carlos Vincent [facility] BASIC METABOLIC PANEL (NA, K, CL, CO2, GLUCOSE, BUN, CREATININE, CA) 2023-03-02 10:36:00 Vincent, Carlos Doran [facility] MAGNESIUM 2023-03-02 10:36:00 Vincent, Carlos Doran [facility] PHOSPHORUS 2023-03-02 10:36:00 Vincent, Carlos Doran [facility] PHOSPHORUS 2023-03-02 10:36:00 Vincent, Carlos Doran [facility] MAGNESIUM 2023-03-02 10:36:00 Vincent, Carlos Doran [facility] FERRITIN SERUM 2023-03-02 10:36:00 VincentCarlos [facility] BASIC METABOLIC PANEL (NA, K, CL, CO2, GLUCOSE, BUN, CREATININE, CA) 2023-03-02 10:36:00 Vincent, Carlos Doran [facility] IRON PANEL 2023-03-02 10:36:00 Vincent, Carlos Doran [facility] CBC WITH DIFF 2023-03-02 10:36:00 VincentCarlos lehman [facility] XR CHEST 1 VW 2023-03-02 06:52:00 Roger Chan [facility] XR CHEST 1 VW 2023-03-02 06:52:00 Roger Chan [facility] CBC WITHOUT DIFF 2023-03-01 23:03:00 Vincent, Carlos Doran [facility] CBC WITHOUT DIFF 2023-03-01 23:03:00 VincentCarlos lehman [facility] [place] MODIFIED BARIUM SWALLOW 2023-03-01 20:00:00 Sincere Arellano [facility] [place] MODIFIED BARIUM SWALLOW 2023-03-01 20:00:00 Sincere Arellano [facility] TRANSFUSE PACKED RBC 2023-03-01 14:50:00 Yusuf [facility] TRANSFUSE PACKED RBC 2023-03-01 14:50:00 [facility] PREPARE PACKED RBC 2023-03-01 14:31:00 Yusuf Green [facility] PREPARE PACKED RBC 2023-03-01 14:31:00 Yusuf Green [facility] AMMONIA, PLASMA 2023-03-01 11:20:00 Elfego Saenz [facility] AMMONIA, PLASMA 2023-03-01 11:20:00 Elfego Saenz [facility] CBC WITH DIFF 2023-03-01 10:47:00 VincentCarlos [facility] BASIC METABOLIC PANEL (NA, K, CL, CO2, GLUCOSE, BUN, CREATININE, CA) 2023-03-01 10:47:00 VincentCarlos [facility] MAGNESIUM 2023-03-01 10:47:00 VincentCarlos [facility] MAGNESIUM 2023-03-01 10:47:00 Vincent, Carlos Doran [facility] BASIC METABOLIC PANEL (NA, K, CL, CO2, GLUCOSE, BUN, CREATININE, CA) 2023-03-01 10:47:00 Vincent, Carlos Doran [facility] CBC WITH DIFF 2023-03-01 10:47:00 VincentCarlos [facility] CBC WITH DIFF 2023-02-28 09:36:00 Abigail Chavez [facility] MAGNESIUM 2023-02-28 09:36:00 Scott [facility] COMP. METABOLIC PANEL ([id number]) 2023-02-28 09:36:00 [facility] / INR 2023-02-28 09:36:00 Dany [facility] MAGNESIUM 2023-02-28 09:36:00 [facility] COMP. METABOLIC PANEL ([id number]) 2023-02-28 09:36:00 [facility] CBC WITH DIFF 2023-02-28 09:36:00 [facility] PROTHROMBIN TIME / INR 2023-02-28 09:36:00 [facility] WITHOUT [facility]FF 2023-02-28 01:06:00 [facility] WITHOUT DIFF 2023-02-28 01:06:00 [facility] TRANSFUSE PACKED RBC 2023-02-27 21:27:00 Rhoda Severino [facility] TRANSFUSE PACKED RBC 2023-02-27 21:27:00 [facility] PREPARE [facility] RBC 2023-02-27 21:19:05 [facility]ARE [facility] RBC 2023-02-27 21:19:05 Rhoda Severino [facility] PHOSPHORUS 2023-02-27 19:13:00 Marcie Trujillo Namrata [facility] ABORH CONFIRMATION (LAB ONLY) 2023-02-27 19:13:00 Zion Vila [facility] PHOSPHORUS 2023-02-27 19:13:00 Marcie Trujillo [facility] ABORH CONFIRMATION (LAB ONLY) 2023-02-27 19:13:00 Julito [facility] HB ABO GROUPING 2023-02-27 18:39:00 [facility] ABO GROUPING 2023-02-27 18:39:00 Maycol [facility] SPUTUM CULTURE 2023-02-27 17:28:00 [facility] SPUTUM CULTURE 2023-02-27 17:28:00 [facility] US ABDOMEN LIMITED 2023-02-27 15:43:53 Scott [facility] US ABDOMEN LIMITED 2023-02-27 15:43:53 [facility] FIBRINOGEN 2023-02-27 14:44:00 Abigail Chavez [facility] ACTIVATED PARTIAL THRMPLAS NBA 2023-02-27 14:44:00 Abigail Chavez [facility] D-DIMER 2023-02-27 14:44:00 [facility] DIFF [facility]SULT BY PATHOLOGIST 2023-02-27 14:44:00 Abigail Chavez [facility] CBC WITH DIFF 2023-02-27 14:44:00 [facility] DIFF [facility]SULT INTERPRETATION 2023-02-27 14:44:00 [facility] DIFF CONSULT BY PATHOLOGIST 2023-02-27 14:44:00 [facility] CBC WITH DIFF 2023-02-27 14:44:00 [facility] D-DIMER 2023-02-27 14:44:00 [facility] ACTIVATED PARTIAL THRMPLAS NBA 2023-02-27 14:44:00 [facility] FIBRINOGEN 2023-02-27 14:44:00 [facility] DIFF CONSULT INTERPRETATION 2023-02-27 14:44:00 [facility] CBC WITH DIFF 2023-02-27 09:25:00 Dany [facility] MAGNESIUM 2023-02-27 09:25:00 [facility]-27 09:25:00 Dany [facility] COMP. METABOLIC PANEL ([id number]) 2023-02-27 09:25:00 [facility] / INR 2023-02-27 09:25:00 Dany [facility] BILI UNCONJUGATED/BILI CONJUG 2023-02-27 09:25:00 Dany [facility] PHOSPHORUS 2023-02-27 09:25:00 Dany [facility] MAGNESIUM 2023-02-27 09:25:00 Dany [facility] BILI UNCONJUGATED/BILI CONJUG 2023-02-27 09:25:00 Dany [facility] COMP. METABOLIC PANEL ([id number]) 2023-02-27 09:25:00 [facility] CBC WITH DIFF 2023-02-27 09:25:00 Dany [facility] PROTHROMBIN TIME / INR 2023-02-27 09:25:00 Dany [facility] XR CHEST 1 VW 2023-02-27 05:16:00 Yusuf Green [facility] XR CHEST 1 VW 2023-02-27 05:16:00 Bilal, Ali [facility] AC PANEL 20 + LACTIC ACID 2023-02-27 03:56:00 Bilgabbie Yusuf [facility] AC PANEL 20 + LACTIC ACID 2023-02-27 03:56:00 Peter Yusuf [facility] MAGNESIUM 2023-02-26 11:18:00 Scott [facility] COMP. METABOLIC PANEL ([id number]) 2023-02-26 11:18:00 [facility] MAGN[facility]UM 2023-02-26 11:18:00 Scott [facility] COMP. METABOLIC PANEL ([id number]) 2023-02-26 11:18:00 Scott [facility] CBC WITH DIFF 2023-02-26 11:13:00 Scott [facility] CBC WITH DIFF 2023-02-26 11:13:00 Scott [facility] SPUTUM CULTURE 2023-02-26 04:05:00 Scott [facility] SPUTUM CULTURE 2023-02-26 04:05:00 Scott [facility] BLOOD CULTURE SCREEN 2023-02-25 23:28:00 Scott [facility] BLOOD CULTURE SCREEN 2023-02-25 23:28:00 Scott [facility] BLOOD CULTURE SCREEN 2023-02-25 23:17:00 Scott [facility] CBC WITHOUT DIFF 2023-02-25 23:17:00 [facility] BLOOD CULTURE SCREEN 2023-02-25 23:17:00 Scott [facility] CBC WITHOUT DIFF 2023-02-25 23:17:00 [facility] ACUTE CARE ARTERIAL BLOOD GAS 2023-02-25 16:06:00 [facility] ARTERIAL BLOOD GAS 2023-02-25 16:06:00 Rhoda Severino [facility] XR CHEST 1 VW 2023-02-25 15:40:00 [facility] XR CHEST 1 VW 2023-02-25 15:40:00 [facility] CBC WITH DIFF 2023-02-25 10:32:00 [facility] MAGNESIUM 2023-02-25 10:32:00 Scott [facility] COMP. METABOLIC PANEL ([id number]) 2023-02-25 10:32:00 Scott [facility] PHOSPHORUS 2023-02-25 10:32:00 Scott [facility] PHOSPHORUS 2023-02-25 10:32:00 Scott [facility] MAGNESIUM 2023-02-25 10:32[facility] METABOLIC PANEL ([id number]) 2023-02-25 10:32:00 Scott [facility] CBC WITH DIFF 2023-02-25 10:32:00 Scott [facility] BASIC METABOLIC PANEL (NA, K, CL, CO2, GLUCOSE, BUN, CREATININE, CA) 2023-02-24 18:11:00 Scott [facility] BASIC METABOLIC PANEL (NA, K, CL, CO2, GLUCOSE, BUN, CREATININE, CA) 2023-02-24 18:11:00 Scott [facility] BASIC METABOLIC PANEL (NA, K, CL, CO2, GLUCOSE, BUN, CREATININE, CA) 2023-02-24 09:21:00 [facility] CBC WITH DIFF 2023-02-24 09:21:00 Scott [facility] MAGNESIUM 2023-02-24 09:21:00 Scott [facility] COMP. METABOLIC PANEL ([id number]) 2023-02-24 09:21:00 Scott [facility] PHOSPHORUS 2023-02-24 09:21:00 Scott [facility] PHOSPHORUS 2023-02-24 09:21:00 [facility] MAGNESIUM 2023-02-24 09:21:00 [facility] BASIC METABOLIC PANEL (NA, K, CL, CO2, GLUCOSE, BUN, CREATININE, CA) 2023-02-24 09:21:00 Scott [facility] COMP. METABOLIC PANEL ([id number]) 2023-02-24 09:21:00 [facility] CBC WITH DIFF 2023-02-24 09:21:00 Scott [facility] CBC WITH DIFF 2023-02-23 08:35:00 Scott [facility] MAGNESIUM 2023-02-23 08:35:00 Scott [facility] COMP. METABOLIC PANEL ([id number]) 2023-02-23 08:35:00 [facility] MAGN[facility]UM 2023-02-23 08:35:00 [facility] COMP. METABOLIC PANEL ([id number]) 2023-02-23 08:35:00 [facility] CBC WITH DIFF 2023-02-23 08:35:00 [facility] AC PANEL 20 + LACTIC ACID 2023-02-22 21:51:[address] [facility] AC PANEL 20 + LACTIC ACID 2023-02-22 21:51:00 Jonathan Engle [facility] AC PANEL 20 + LACTIC ACID 2023-02-22 16:21:00 Kim Francis [facility] AC PANEL 20 + LACTIC ACID 2023-02-22 16:21:00 Kim Francis [facility] HIT - AB 2023-02-22 15:18:00 [facility] 2023-02-22 15:18:00 [facility] H[facility] - AB 2023-02-22 15:18:00 [facility]TRA [facility] FOR [facility] 2023-02-22 15:18:00 Abigail Chavez [facility] CBC WITHOUT DIFF 2023-02-22 10:07:00 Kim Francis [facility] MAGNESIUM 2023-02-22 10:07:00 Kim Francis [facility] COMP. METABOLIC PANEL ([id number]) 2023-02-22 10:07:00 Kim Francis [facility] PROTHROMBIN TIME / INR 2023-02-22 10:07:00 Kim Francis [facility] MAGNESIUM 2023-02-22 10:07:00 Kim Francis [facility] COMP. METABOLIC PANEL ([id number]) 2023-02-22 10:07:00 Kim Francis [facility] CBC WITHOUT DIFF 2023-02-22 10:07:00 Kim Francis [facility] PROTHROMBIN TIME / INR 2023-02-22 10:07:00 Kim Francis [facility] ACUTE CARE ARTERIAL BLOOD GAS 2023-02-21 22:48:00 John Arellano Rubén [facility] ACUTE CARE ARTERIAL BLOOD GAS 2023-02-21 22:48:00 John Arellano [facility] XR KUB 2023-02-21 22:37:[address] [facility] XR KUB 2023-02-21 22:37:[address] [facility] XR CHEST 1 VW 2023-02-21 22:34:[address] [facility] XR CHEST 1 VW 2023-02-21 22:34:[address] [facility] INTUBATION 2023-02-21 21:08:00 Abu-Luz Garciajinny [facility] INTUBATION 2023-02-21 21:08:00 Abu-Jose mattieijnny [facility] AC PANEL 20 + LACTIC ACID 2023-02-21 20:24:00 Dustin [facility] AC PANEL 20 + LACTIC ACID 2023-02-21 20:24:00 Dustin [facility] AC PANEL 20 + LACTIC ACID 2023-02-21 17:09:[address] [facility] AC PANEL 20 + LACTIC ACID 2023-02-21 17:09:00 Jonathan Engle [facility] HB ECG ROUTINE & RHYTHM STRIP 2023-02-21 15:29:31 [facility]OUT[facility] & RHYTHM STRIP 2023-02-21 15:29:31 Roger Chan [facility] TRANSTHORACIC ECHO (TTE) COMPLETE W/ CONTRAST 2023-02-21 15:28:25 Dany [facility] TRANSTHORACIC ECHO (TTE) COMPLETE W/ CONTRAST 2023-02-21 15:28:25 Dany [facility] XR CHEST 1 VW 2023-02-21 11:49:00 Dany [facility] XR CHEST 1 VW 2023-02-21 11:49:00 Dany [facility] CBC WITH DIFF 2023-02-21 10:30:00 Dany [facility] BASIC METABOLIC PANEL (NA, K, CL, CO2, GLUCOSE, BUN, CREATININE, CA) 2023-02-21 10:30:00 Dany [facility] HEPATIC FUNCTION PANEL ([id number]) (ALB,T.PRO,BILI T,BU/BC,ALT,AST,ALK PHOS) 2023-02-21 10:30:00 Dany [facility] PROTHROMBIN TIME / INR 2023-02-21 10:30:00 Dany [facility] HEPATIC FUNCTION PANEL ([id number]) (ALB,T.PRO,BILI T,BU/BC,ALT,AST,ALK PHOS) 2023-02-21 10:30:00 Dany [facility] BASIC METABOLIC PANEL (NA, K, CL, CO2, GLUCOSE, BUN, CREATININE, CA) 2023-02-21 10:30:00 Dany [facility] CBC WITH DIFF 2023-02-21 10:30:00 Dany [facility] PROTHROMBIN TIME / INR 2023-02-21 10:30:00 Barratt, [facility] XR KUB 2023-02-20 23:05:00 [facility] XR KUB 2023-02-20 23:05:[address] [facility] XR KUB 2023-02-20 22:55:00 Sincere Arellano [facility] XR KUB 2023-02-20 22:55:00 Sincere Arellano [facility] XR CHEST 1 VW 2023-02-20 22:49:00 Sincere Arellano [facility] XR CHEST 1 VW 2023-02-20 22:49:00 Adan Sincere [facility] CT HEAD WO CONTRAST 2023-02-20 20:54:12 Adan [facility] CT HEAD WO CONTRAST 2023-02-20 20:54:12 Adan [facility] AC PANEL 20 + LACTIC ACID 2023-02-20 19:54:00 Adan Sincere [facility] AC PANEL 20 + LACTIC ACID 2023-02-20 19:54:00 Adan Sincere [facility] AMMONIA, PLASMA 2023-02-20 18:47:00 Adan [facility] AMMONIA, PLASMA 2023-02-20 18:47:00 Adan [facility] BASIC METABOLIC PANEL (NA, K, CL, CO2, GLUCOSE, BUN, CREATININE, CA) 2023-02-20 18:46:00 Sincere Arellano [facility] HIV 1/2 AG-AB WITH REFLEX 2023-02-20 18:46:00 [facility] BASIC METABOLIC PANEL (NA, K, CL, CO2, GLUCOSE, BUN, CREATININE, CA) 2023-02-20 18:46:00 Adan Sincere [facility] HIV 1/2 AG-AB WITH REFLEX 2023-02-20 18:46:00 [facility] PO[facility] GLUCOSE (AUTOMATED) 2023-02-20 16:12:00 Julito [facility] POCT GLUCOSE (AUTOMATED) 2023-02-20 16:12:00 Nagan, [facility] PHOSPHORUS 2023-02-20 09:25:00 Sincere Arellano [facility] MAGNESIUM 2023-02-20 09:25:00 Sincere Arellano [facility] BASIC METABOLIC PANEL (NA, K, CL, CO2, GLUCOSE, BUN, CREATININE, CA) 2023-02-20 09:25:00 Adan Sincere [facility] CBC WITH DIFF 2023-02-20 09:25:00 Adan Sincere [facility] PROTHROMBIN TIME / INR 2023-02-20 09:25:00 Elfego Saenz [facility] PHOSPHORUS 2023-02-20 09:25:00 Adan Sincere [facility] MAGNESIUM 2023-02-20 09:25:00 Sincere Arellano [facility] BASIC METABOLIC PANEL (NA, K, CL, CO2, GLUCOSE, BUN, CREATININE, CA) 2023-02-20 09:25:00 Sincere Arellano [facility] CBC WITH DIFF 2023-02-20 09:25:00 Sincere Arellano [facility] PROTHROMBIN TIME / INR 2023-02-20 09:25:[address] [facility] ABDOMEN PELVIS WO CONTRAST 2023-02-20 07:07:32 Dany [facility] CT ABDOMEN PELVIS WO CONTRAST 2023-02-20 07:07:32 Dany [facility] XR CHEST 1 VW 2023-02-19 22:17:00 Yusuf Green [facility] XR CHEST 1 VW 2023-02-19 22:17:00 Yusuf Greennorth royaltonneftali [facility] AMMONIA, PLASMA 2023-02-19 13:30:00 Sincere Arellano [facility] AMMONIA, PLASMA 2023-02-19 13:30:00 Adan Sincere [facility] COMP. METABOLIC PANEL ([id number]) 2023-02-19 12:47:00 Sincere Arellano [facility] OSMOLALITY, SERUM OR PLASMA 2023-02-19 12:47:00 Faustina Bourgeois [facility] HEPATIC FUNCTION PANEL ([id number]) (ALB,T.PRO,BILI T,BU/BC,ALT,AST,ALK PHOS) 2023-02-19 12:47:00 [facility]ing [facility] OSMOLALITY, SERUM OR PLASMA 2023-02-19 12:47:00 Faustina Bourgeois [facility] HEPATIC FUNCTION PANEL ([id number]) (ALB,T.PRO,BILI T,BU/BC,ALT,AST,ALK PHOS) 2023-02-19 12:47:00 [facility] COMP. METABOLIC PANEL ([id number]) 2023-02-19 12:47:00 Sincere Arellano [facility] BLOOD CULTURE SCREEN 2023-02-19 09:50:00 [facility] BLOOD [facility] SCREEN 2023-02-19 09:50:00 Dany [facility] BLOOD CULTURE SCREEN 2023-02-19 09:49:00 [facility]ing [facility] BLOOD CULTURE SCREEN 2023-02-19 09:49:00 [facility] URINE CULTURE 2023-02-19 09:17:00 [facility] URINE CULTURE 2023-02-19 09:17:00 Elfego Saenz [facility] US RETROPERITONEAL LIMITED 2023-02-19 07:46:55 Abdias Cook [facility] US RETROPERITONEAL LIMITED 2023-02-19 07:46:55 Abdias Cook [facility] SODIUM, URINE RANDOM 2023-02-19 07:21:00 Abdias Cook [facility] POTASSIUM, URINE RANDOM 2023-02-19 07:21:00 Abdias Cook [facility] CREATININE, URINE RANDOM 2023-02-19 07:21:00 Abdias Cook [facility] URINALYSIS 2023-02-19 07:21:00 Elfego Saenz [facility] URINALYSIS 2023-02-19 07:21:00 [facility]ing [facility] CREATININE, URINE RANDOM 2023-02-19 07:21:00 Morakinyo, [facility] POTASSIUM, URINE RANDOM 2023-02-19 07:21:00 Alpesh Cookmonique [facility] SODIUM, URINE RANDOM 2023-02-19 07:21:00 Joyce [facility] system[facility] HEPATITIS B SURFACE ANTIBODY 2023-02-19 07:11:00 [facility] HEPATITIS C VIRUS (HCV) BY QUANTITATIVE NAAT 2023-02-19 07:11:00 [facility] HCV ANTIBODY 2023-02-19 07:11:00 [facility] ETHANOL 2023-02-19 07:11:00 Dany [facility] MAGNESIUM 2023-02-19 07:11:00 [facility] PHOSPHORUS 2023-02-19 07:11:00 [facility] HEPATITIS B SURFACE ANTIGEN 2023-02-19 07:11:00 Adan [facility] HBC ANTIBODY (IGM & IGG) 2023-02-19 07:11:00 Adan [facility] SYPHILIS IGG/IGM 2023-02-19 07:11:00 Dany [facility] PHOSPHORUS 2023-02-19 07:11:00 [facility] MAGNESIUM 2023-02-19 07:11:00 [facility] ETHANOL 2023-02-19 07:11:00 Dany [facility] HEPATITIS B SURFACE ANTIBODY 2023-02-19 07:11:00 [facility] HEPATITIS B SURFACE ANTIGEN 2023-02-19 07:11:00 Adan [facility] HCV ANTIBODY 2023-02-19 07:11:00 [facility] HBC ANTIBODY (IGM & IGG) 2023-02-19 07:11:00 Adan [facility] HEPATITIS C VIRUS (HCV) BY QUANTITATIVE NAAT 2023-02-19 07:11:00 [facility] SYPHILIS IGG/IGM 2023-02-19 07:11:00 Elfego Saenz [facility] XR CHEST 1 VW 2023-02-19 06:36:00 [facility] XR CHEST 1 VW 2023-02-19 06:36:00 Rhoda Severino [facility] PROTHROMBIN TIME / INR 2023-02-19 05:51:00 Todd [facility]fre[facility] system[facility] PROTHROMBIN TIME / INR 2023-02-19 05:51:00 [facility] 21 + LACTIC ACID 2023-02-19 05:24:00 [facility] AC PANEL 21 + LACTIC ACID 2023-02-19 05:24:00 Adriana [facility] MRSA / MSSA SCREEN BY PCRPAULA 2023-02-19 05:20:00 [facility] COMP. METABOLIC PANEL ([id number]) 2023-02-19 05:20:00 Todd [facility] HEPATIC FUNCTION PANEL ([id number]) (ALB,T.PRO,BILI T,BU/BC,ALT,AST,ALK PHOS) 2023-02-19 05:20:00 Todd [facility] CBC WITH DIFF 2023-02-19 05:20:[address] [facility] HEPATITIS B CORE ANTIBODY IGM 2023-02-19 05:20:00 [facility]ana [facility] HEPATITIS B SURFACE ANTIGEN 2023-02-19 05:20:00 [facility] HEPATITIS A VIRUS ANTIBODY IGM 2023-02-19 05:20:00 [facility] HEPATIC FUNCTION PANEL ([id number]) (ALB,T.PRO,BILI T,BU/BC,ALT,AST,ALK PHOS) 2023-02-19 05:20:[address] [facility] COMP. METABOLIC PANEL ([id number]) 2023-02-19 05:20:00 Abdias Cook [facility] CBC WITH DIFF 2023-02-19 05:20:00 Abdias Cook [facility] HEPATITIS B SURFACE ANTIGEN 2023-02-19 05:20:00 Rhoda Severino [facility] HEPATITIS A VIRUS ANTIBODY IGM 2023-02-19 05:20:00 Rhoda Severino [facility] HEPATITIS B CORE ANTIBODY IGM 2023-02-19 05:20:00 Rhoda Severino [facility] MRSA / MSSA SCREEN BY PCRPAULA 2023-02-19 05:20:00 Abdias Cook [facility] DISCLOSURE AND CONSENT, MEDICAL AND SURGICAL PROCEDURES 2023-02-19 05:01:00 Doctor Unassigned, [place] [facility] NO SHOW OR MISSED APPOINTMENT POLICY ACKNOWLEDGEMENT 2022-11-18 21:24:55 Doctor Unassigned, [place] [facility] PATIENT FINANCIAL POLICY 2022-11-18 21:24:37 Doctor Unassigned, [place] [facility] NOTICE OF PRIVACY PRACTICES 2022-11-18 21:24:20 Doctor Unassigned, [place] [facility] CONSENT/REFUSAL FOR DIAGNOSIS AND TREATMENT 2022-11-18 21:24:05 Doctor Unassigned, [place] [facility] ASSIGNMENT OF BENEFITS 2022-11-18 21:23:50 Doctor Unassigned, [place] [facility] Comprehensive Metabolic Panel [facility] Complete Blood Count w/Diff and Platelet [facility] EEG continuous monitoring [facility] Encounters Start Date/Time End Date/Time Encounter Type Admission Type Attending [facility] Care Facility Care Department Encounter ID Source 2024-07-05 16:48:00 2024-07-09 17:10:00 Inpatient PANDA VARGAS JAMES [facility] [id number] General acute hospital 2023-09-02 00:00:00 2024-06-09 07:49:00 Orders Only Doctor Unassigned, [place] Doctor Unassigned, [place] [facility] [id number] 350.1.13.10 4.2.7.2.686 [id number] General acute hospital 2023-09-12 00:00:00 2024-06-09 07:45:19 Orders Only Doctor Unassigned, [place] Doctor Unassigned, [place] [facility] [id number] 350.1.13.10 4.2.7.2.686 [id number] General acute hospital 2024-05-23 01:00:00 2024-05-31 16:26:00 Hospital Encounter Casandra, Lizette Contreras, Nikita Duval, Jesús Yun, Alejandro Shearer, Betty Lee [facility] [id number] [id number] [id number] [facility] 2024-05-23 01:00:00 2024-05-31 16:26:00 Inpatient Trauma Center BETTY PARKER [facility] General Medicine [id number] [facility] 2024-05-23 01:36:31 2024-05-23 01:36:31 Outpatient IEEPIC IEEPIC [id number] [facility] 2024-05-23 01:56:40 2024-05-22 23:59:00 Outpatient [facility] [id number] [facility] 2024-05-23 01:56:40 2024-05-22 23:59:00 Outpatient [facility] [id number] [facility] 2024-05-23 01:53:13 2024-05-22 23:59:00 Outpatient [facility] [id number] [facility] 2024-05-23 01:36:31 2024-05-22 23:59:00 Outpatient [facility] [id number] [facility] 2023-11-04 20:49:00 2023-11-05 01:51:00 Emergency X CORIE, ANDREW EDWARDS [facility] E[facility] [id number] General acute hospital 2023-11-04 20:49:00 2023-11-05 01:51:00 Emergency Andrew Montanez [facility] [id number] 350.1.13.10 4.2.7.2.686 [id number] General acute hospital 2023-09-28 13:00:00 2023-09-28 13:00:00 Outpatient R BRENDEN HICKEY KHALED [facility] [id number] General acute hospital 2023-09-22 00:00:00 2023-09-22 15:52:01 Telephone Brenden Hickey [facility] [id number] 350.1.13.10 4.2.7.2.686 [id number] General acute hospital 2023-08-31 00:00:00 2023-08-31 10:42:14 [facility] [id number] 350.1.13.10 4.2.7.2.686 [id number] General acute hospital 2023-08-30 07:35:05 2023-08-30 23:59:00 [facility] [id number] 350.1.13.10 4.2.7.2.686 [id number] General acute hospital 2023-08-30 07:34:50 2023-08-30 07:34:50 Hospital Encounter Jose [facility] 1.2.840.114 350.1.13.10 4.2.7.2.686 [id number] General acute hospital 2023-08-30 07:34:43 2023-08-30 07:34:43 Hospital Encounter Jose [facility] 1.2.840.114 350.1.13.10 4.2.7.2.686 [id number] General acute hospital 2023-08-30 07:34:36 2023-08-30 07:34:36 Hospital Encounter Jose [facility] 1.2840.114 350.1.13.10 4.2.7.2.686 [id number] General acute hospital 2023-08-30 07:34:05 2023-08-30 07:34:05 Outpatient R JOSE [facility] [id number] General acute hospital 2023-08-30 07:34:05 2023-08-30 07:34:05 Hospital Encounter Jose [facility] [id number] 350.1.13.10 4.2.7.2.686 [id number] General acute hospital 2023-07-21 08:00:00 2023-07-21 08:00:00 Outpatient R JOSE [facility] [id number] General acute hospital 2023-07-13 15:40:00 2023-07-13 15:55:21 Outpatient R JOSE [facility] [id number] General acute hospital 2023-07-13 15:40:00 2023-07-13 15:55:21 [facility] [id number] 350.1.13.10 4.2.7.2.686 [id number] General acute hospital 2023-06-21 00:00:00 2023-06-21 00:00:00 Orders Only Doctor Unassigned, [place] [facility] 1.2840.114 350.1.13.10 4.2.7.2.686 [id number] General acute hospital 2023-06-03 00:00:00 2023-06-03 00:00:00 Orders Only Doctor Unassigned, [place] [facility] 1.2840.114 350.1.13.10 4.2.7.2.686 [id number] General acute hospital 2023-03-16 00:00:00 2023-03-16 00:00:00 Orders Only Doctor Unassigned, [place] [facility] 1.2840.114 350.1.13.10 4.2.7.2.686 [id number] General acute hospital 2023-03-11 00:00:00 2023-03-11 00:00:00 Transition of Care Cielo Joy [facility] 1.20.114 350.1.13.10 4.2.7.2.686 [id number] General acute hospital 2023-02-18 23:56:00 2023-03-10 14:51:00 Inpatient U [facility] [id number] General acute hospital 2023-02-18 23:56:00 2023-03-10 14:51:00 Hospital Encounter Zion Vila, Tony Ballard, Alan Turner, [facility] 1.0.114 350.1.13.10 4.2.7.2.686 [id number] General acute hospital 2023-03-03 00:00:00 2023-03-03 00:00:00 Travel 1.2.840.1 71162.1.1 3.104.2.7 .3.803238 .8 1.2.0.114 350.1.13.10 4.2.7.3.698 084.8 [id number] General acute hospital 2023-02-21 16:17:36 2023-02-21 16:17:36 Anesthesia Event Ute Spencer 1.2.840.1 95254.1.1 3.104.2.7 .3.410293 .8 [id number] General acute hospital 2023-02-21 00:00:00 2023-02-21 00:00:00 Case Management Zeynep Orozco 1.2.840.1 05475.1.1 3.104.2.7 .3.107711 .8 [id number] General acute hospital 2022-11-18 16:27:08 2022-11-18 23:59:00 Outpatient R RADIOLOGY [facility] [id number] General acute hospital 2022-11-18 16:27:08 2022-11-18 23:59:00 Hospital Encounter Radiology [facility] 1.2.840.114 350.1.13.10 4.2.7.2.686 [id number] General acute hospital 2022-10-08 05:00:00 2022-10-08 05:00:00 Outpatient ABBI ALICIA [facility] [id number] [facility] Results Test Description Test Time Test Comments Results Result Co mments Source [facility] TRAUMA CERVICAL SPINE WO [id number] 05:33:21 Ordering physician: ANDREW MONTANEZ Indication: Acute [...] canal stenosis is appreciated.[facility] MAXILLOFACIAL/MANDIBLE WO [id number] 05:31:39ORDERING PHYSICIAN:ANDREW POLK CLINICAL INFORMATION: ? Facial [...] also within normal limits.[facility] TRAUMA THORAX W [id number] 05:23:19EXAM: CT TRAUMA THORAX W CONTRAST, CT [...] nodularitypresent of the hepatic parenchyma. The liver xsuwtxnk71.9 cm in AP lengthand 19 cm in [...] high-grade foraminal stenosis. [facility] TRAUMA THORACIC SPINE WO [id number] 05:23:19EXAM: CT TRAUMA THORAX W CONTRAST, CT TRAUMA THORACIC SPINE WO CONTRAST, CTTRAUMA ABDOMEN PELVIS W CONTRAST, CT TRAUMA LUMBAR SPINE WO CONTRAST ORDERING CLINICIAN: ? ANDREW ?YARIMA HISTORY: Chest andabdominal pain. Back pain. Fall [...] nodularitypresent of the hepatic parenchyma. The liver wdswnizp14.9 cm in AP lengthand 19 cm in [...] other high-grade foraminal stenosis.[facility] TRAUMA ABDOMEN PELVIS W CONTRAST 2023-11-05 05:23:19EXAM: CT TRAUMA THORAX W CONTRAST, CT TRAUMA THORACIC SPINE WO CONTRAST, CTTRAUMA ABDOMEN PELVIS W CONTRAST, CT TRAUMA LUMBAR SPINE WO CONTRAST ORDERING CLINICIAN: ? ANDREW ?YARIMA HISTORY: Chest andabdominal pain. Back pain. Fall [...] nodularitypresent of the hepatic parenchyma. The liver lxgoflxn49.9 cm in AP lengthand 19 cm in [...] high-grade foraminal stenosis. [facility] TRAUMA LUMBAR SPINE WO [id number] 05:23:19EXAM: CT TRAUMA THORAX W CONTRAST, CT [...] nodularitypresent of the hepatic parenchyma. The liver tsmopjek61.9 cm in AP lengthand 19 cm in [...] other high-grade foraminal stenosis.[facility]wayXR KNEE 3 VW [id number] 03:27:54 Ordering Physician: FRIDA POLK HISTORY: Right knee pain COMPARISON: none FINDINGS:Three views of the right knee. ?There is no fracture or dislocation. ?Thereis no joint effusion. The joint spaces are normal. ?Soft tissue edema isseen. ?Atherosclerotic calcifications also seen in the arteries. No pubicbone bodies are seen in the soft tissues.[facility]wayREFERRAL- REQUEST/[id number] 20:19:10Ordered by an unspecified provider.[facility]wayREFERRAL- REQUEST/[id number] 18:58:35Ordered by an unspecified provider.[facility]wayTransthoracic echo (TTE)2023-08-30 22:04:01* Test Item Value Reference Range Interpretation Comme nts Height (test code = 9489994651) 70 in Weight (test code = 4123096904) 205 lbs Systolic BP (test code = 5042048738) 163 mmHg Diastolic BP (test code = 4208376296) 97 mmHg Heart Rate (test code = 6464251391) 75 bpm BSA (test code = 2701402863) 2.11 m2 Ao root diam (test code = 9778012259) 3.90 cm Aortic root (test code = 7334071500) 3.9 cm Ao root annulus (test code = 4731168876) 3.9 cm LVOT diameter (test code = 7821336412) 2.18 cm LVOT area (test code = 4059725525) 3.70 cm2 LA size (test code = 6640869558) 4.1 cm LVIDD (test code = 9668687198) 5.70 cm Left Ventricular End Diastolic Volume by Teichholz Method (test code = 5056141) 159.3 mL IVS (test code = 2901755589) 1.29 cm Interventricular Septum Diastolic Thickness by 2D (test code = 8164342) 1.29 cm LVPWD (test code = 4227678536) 1.31 cm PW (test code = 0792621115) 1.31 cm 0.6-1.1 EF(Teich) (test code = 6741895888) 54.20 % LVIDS (test code = 4490785122) 4.10 cm Left Ventricular End Systolic Volume by Teichholz Method (test code = 9708129) 73.0 mL FS (test code = 0175174373) 29 % EF - 2D (test code = 54456458) 54.20 % Pulmonic Regurgitant End Max Velocity (test code = 8551594925) 113.9 cm/s LAV(MOD-sp4) (test code = 8155322943) 42.80 mL E wave decelartion time (test code = 1922676666) 0.14 s MV Peak A Cy (test code = 3540560409) 72.3 cm/s MV stenosis pressure 1/2 time (test code = 5719281481) 43.1 ms MV Peak E Cy (test code = 0324944212) 55.5 cm/s E/A ratio (test code = 9788911578) 0.77 ratio MV Prop V (test code = 3883009588) 34.80 cm/s MV E/e' septal (test code = 3594366769) 8.5 cm/s Tapse (test code = 4849615857) 2.06 cm LVOT stroke volume (test code = 4226728699) 75.00 cm3 LVOT peak cy (test code = 4623949208) 100.6 cm/s LVOT mn grad (test code = 1386189641) 2.0 mmHg AV LVOT peak gradient (test code = 1630563281) 4.0 mmHg LVOT peak VTI (test code = 9376888425) 20.1 cm LV V1 mean (test code = 1422512846) 66.30 cm/s Aortic valve mean velocity (test code = 4232626710) 94.0 cm/s Ao peak cy (test code = 0676516372) 133.1 cm/s Ao VTI (test code = 2500142213) 24.8 cm AV area by cont VTI (test code = 2207896352) 3.0 cm2 AV area peak cy (test code = 0307747592) 2.8 cm2 Ao max PG (test code = 8337126873) 7.10 mm[Hg] AV peak gradient (test code = 4598227362) 7.1 mmHg AV valve area (test code = 2036805191) 3.00 cm2 AV mean gradient (test code = 5058759101) 3.8 mmHg A4C EF (test code = 6423351496) 49.50 % EF(sp4-el) (test code = 0774784803) 50.00 % SV(MOD-sp4) (test code = 4801308541) 75.30 mL SV(sp4-el) (test code = 0410369373) 78.70 mL Radiology Study observation (narrative) (test code = 77905-2) BOBBY (test code = BOBBY) ?Left?Ventricle: Left [...] segments are normal. [facility]way[facility] [id number] 06:01:28* Test Item Value Reference Range Interpretation Comme nts Blood Culture-Aerobic (test code = 89334-5) No organisms isolated No growth Previous preliminary verified result was Culture In Progress on 03/05/2023 at 0301 CSTPrevious preliminary verified result was No growth at 24 hours on 03/06/2023 at 0001 CSTPrevious preliminary verified result was No growth at 48 hours on 03/07/2023 at 0001 CSTPrevious preliminary verified result was No growth at 72 hours on 03/08/2023 at 0001 ORGANIC SECTION TECHNICAL LEAD Blood Culture-Anaerobic (test code = 81687-7) No organisms isolated No growth Previous preliminary verified result was Culture In Progress on 03/05/2023 at 0301 CSTPrevious preliminary verified result was No growth at 24 hours on 03/06/2023 at 0001 CSTPrevious preliminary verified result was No growth at 48 hours on 03/07/2023 at 0001 CSTPrevious preliminary verified result was No growth at 72 hours on 03/08/2023 at 0001 ORGANIC SECTION TECHNICAL LEAD Lab Interpretation (test code = 70719-4) Normal [facility] CULTURE [id number] 06:01:28* Test Item Value Reference Range Interpretation Comme nts Blood Culture-Aerobic (test code = 59166-2) No organisms isolated No growth Previous preliminary verified result was Culture In Progress on 03/05/2023 at 0301 CSTPrevious preliminary verified result was No growth at 24 hours on 03/06/2023 at 0001 CSTPrevious preliminary verified result was No growth at 48 hours on 03/07/2023 at 0001 CSTPrevious preliminary verified result was No growth at 72 hours on 03/08/2023 at 0001 ORGANIC SECTION TECHNICAL LEAD Blood Culture-Anaerobic (test code = 40297-4) No organisms isolated No growth Previous preliminary verified result was Culture In Progress on 03/05/2023 at 0301 CSTPrevious preliminary verified result was No growth at 24 hours on 03/06/2023 at 0001 CSTPrevious preliminary verified result was No growth at 48 hours on 03/07/2023 at 0001 CSTPrevious preliminary verified result was No growth at 72 hours on 03/08/2023 at 0001 ORGANIC SECTION TECHNICAL LEAD Lab Interpretation (test code = 88497-0) Normal [facility] (NA, K, CL, CO2, GLUCOSE, BUN, CREATININE, CA)2023-03-04 20:17:39* Test Item Value Reference Range Interpretation Comme nts NA (test code = 2231776197) 138 mmol/L 135-145 K (test code = 7992085775) 3.7 mmol/L 3.5-5.0 CL (test code = 5365601507) 102 mmol/L 98-108 CO2 TOTAL (test code = 0020724084) 24 mmol/L 23-31 AGAP (test code = 7454353663) 12 2-16 BUN (test code = 5284405231) 32 mg/dL 7-23 H GLUCOSE (test code = 8732984515) 98 mg/dL 70-110 CREATININE (test code = 6088278531) 4.86 mg/dL 0.60-1.25 H CALCIUM (test code = 2729010484) 9.8 mg/dL 8.6-10.6 eGFR (test code = 01634-6) 13.2 mL/min/1.73m2 CKD-EPI eGFR (2020). Assuming creatinine has been stable day-to-day for at least three months, the eGFR indicates Category G5 (<= 14mL/min/1.73 m2) Lab Interpretation (test code = 99474-6) Abnormal [facility] LakewayType and Screen - ONCE [id number] 19:37:00* Test Item Value Reference Range Interpretation Comme nts ABO & RH (test code = 20) O POSITIVE IAT (test code = 1185) Negative [facility] LakewayTroponin [id number] 19:23:11* Test Item Value Reference Range Interpretation Comme [facility] TROPONIN I (test code = 5998894635) 0.009 ng/mL <=0.034 BOBBY (test code = [...] of biotin. Lab Interpretation (test code = 79302-3) Normal [facility] LakewayProthrombin Time / [id number] 19:05:07* Test Item Value Reference Range Interpretation Comme nts PROTIME PATIENT (test code = 5964-2) 13.9 See_Comment H [Automated REPPa ge] The system which generated this result transmitted reference range: 10.1 - 12.6 Seconds. The reference range was not used to interpret this result as normal/abnormal. INR (test code = 6301-6) 1.2 Normal INR <1.1; Warfarin Therapeutic range 2.0 to 3.0 or 2.5 to 3.5, depending upon the indications. Lab Interpretation (test code = 53390-3) Abnormal [facility] LakewayaPTT2023-11-10 19:05:07* Test Item Value Reference Range Interpretation Comme [facility] APTT Patient (test code = 3173-2) 36 See_Comment [Automated messa ge] The system which generated this result transmitted reference range: 26 - 36 Seconds. The reference range was not used to interpret this result as normal/abnormal. Lab Interpretation (test code = 10943-5) Normal [facility] LakewayProfile / [id number] 18:56:44* Test Item Value Reference Range Interpretation Comme [facility] WBC (test code = 6690-2) 11.54 [...] result as normal/abnormal. MPV (test code = 92316-8) 9.3 fL 9.8-13.0 L RDW-CV (test code = 788-0) 22.1 % 12.1-15.4 H RDW-SD (test code = 43889-8) 73.0 fL 38.5-51.6 H NRBC x10^3 (test code = 6488693457) See_Comment [Automated messa ge] The system which generated this result transmitted reference range: 10*3/?L. The reference range was not used to interpret this result as normal/abnormal. NRBC/100 WBC (test code = 6322475841) 0.0 See_Comment [Automated messa ge] The system which generated this result transmitted reference range: 0.0 - 10.0 /100 WBCs. The reference range was not used to interpret this result as normal/abnormal. IPF % (test code = 9586870527) Lab Interpretation (test code = 90634-9) Abnormal [facility] LakewayPOCT GLUCOSE (AUTOMATED)2023-03-04 18:44:21* Test Item Value Reference Range Interpretation Comme [facility] POCT GLU (test code = 6627364086) 101 mg/dL 70-110 Lab Interpretation (test cod e = 03304-4) Normal [facility]wayBLOOD CULTURE [id number] 01:01:26* Test Item Value Reference Range Interpretation Comme [facility] Blood Culture-Aerobic (test code = 33437-8) No organisms isolated No growth Previous preliminary verified result was Culture In Progress on 02/25/2023 at 2301 CDTPrevious preliminary verified result was No growth at 24 hours on 02/26/2023 at 2000 CDTPrevious preliminary verified result was No growth at 48 hours on 02/27/2023 at 1901 CSTPrevious preliminary verified result was No growth at 72 hours on 02/28/2023 at 1901 ORGANIC SECTION TECHNICAL LEAD Blood Culture-Anaerobic (test code = 93629-4) No organisms isolated No growth Previous preliminary verified result was Culture In Progress on 02/25/2023 at 2301 CDTPrevious preliminary verified result was No growth at 24 hours on 02/26/2023 at 2000 CDTPrevious preliminary verified result was No growth at 48 hours on 02/27/2023 at 1901 CSTPrevious preliminary verified result was No growth at 72 hours on 02/28/2023 at 1901 ORGANIC SECTION TECHNICAL LEAD Lab Interpretation (test code = 13133-4) [facility] CULTURE [id number] 01:01:26* Test Item Value Reference Range Interpretation Comme nts Blood Culture-Aerobic (test code = 45087-8) No organisms isolated No growth Previous preliminary verified result was Culture In Progress on 02/25/2023 at 2301 CDTPrevious preliminary verified result was No growth at 24 hours on 02/26/2023 at 2000 CDTPrevious preliminary verified result was No growth at 48 hours on 02/27/2023 at 1901 CSTPrevious preliminary verified result was No growth at 72 hours on 02/28/2023 at 1901 ORGANIC SECTION TECHNICAL LEAD Blood Culture-Anaerobic (test code = 89617-3) No organisms isolated No growth Previous preliminary verified result was Culture In Progress on 02/25/2023 at 2301 CDTPrevious preliminary verified result was No growth at 24 hours on 02/26/2023 at 2000 CDTPrevious preliminary verified result was No growth at 48 hours on 02/27/2023 at 1901 CSTPrevious preliminary verified result was No growth at 72 hours on 02/28/2023 at 1901 ORGANIC SECTION TECHNICAL LEAD Lab Interpretation (test code = 93538-4) [facility] CULTURE [id number] 01:01:26* Test Item Value Reference Range Interpretation Comme nts Blood Culture-Aerobic (test code = 01321-2) No organisms isolated No growth Previous preliminary verified result was Culture In Progress on 02/25/2023 at 2301 CDTPrevious preliminary verified result was No growth at 24 hours on 02/26/2023 at 2000 CDTPrevious preliminary verified result was No growth at 48 hours on 02/27/2023 at 1901 CSTPrevious preliminary verified result was No growth at 72 hours on 02/28/2023 at 1901 ORGANIC SECTION TECHNICAL LEAD Blood Culture-Anaerobic (test code = 57353-3) No organisms isolated No growth Previous preliminary verified result was Culture In Progress on 02/25/2023 at 2301 CDTPrevious preliminary verified result was No growth at 24 hours on 02/26/2023 at 2000 CDTPrevious preliminary verified result was No growth at 48 hours on 02/27/2023 at 1901 CSTPrevious preliminary verified result was No growth at 72 hours on 02/28/2023 at 1901 ORGANIC SECTION TECHNICAL LEAD Lab Interpretation (test code = 85328-4) Normal [facility] LakewayPROTHROMBIN TIME / [id number] 19:51:25* Test Item Value Reference Range Interpretation Comme [facility] PROTIME PATIENT (test code = 5964-2) [...] the indications. Lab Interpretation (test code = 93918-3) Abnormal [facility] LakewayPROTHROMBIN TIME / [id number] 19:51:25* Test Item Value Reference Range Interpretation Comme [facility] PROTIME PATIENT (test code = 5964-2) [...] the indications. Lab Interpretation (test code = 06071-5) Abnormal [facility] LakewayCB WITHOUT [id number] 23:28:46* Test Item Value Reference Range Interpretation Comme [facility] WBC (test code = 6690-2) 19.43 See_Comment [...] result as normal/abnormal. MPV (test code = 68280-2) 11.0 fL 9.8-13.0 RDW-CV (test code = 788-0) 21.8 % 12.1-15.4 H RDW-SD (test code = 97537-8) 66.4 fL 38.5-51.6 H NRBC x10^3 (test code = 7016366531) See_Comment [Automated messa ge] The system which generated this result transmitted reference range: 10*3/?L. The reference range was not used to interpret this result as normal/abnormal. NRBC/100 WBC (test code = 0955850785) 0.0 See_Comment [Automated messa ge] The system which generated this result transmitted reference range: 0.0 - 10.0 /100 WBCs. The reference range was not used to interpret this result as normal/abnormal. IPF % (test code = 8873680737) Lab Interpretation (test code = 85298-7) Abnormal [facility] WITHOUT [id number] 23:28:46* Test Item Value Reference Range Interpretation [...] result as normal/abnormal. MPV (test code = 36931-9) 11.0 fL 9.8-13.0 RDW-CV (test code = 788-0) 21.8 % 12.1-15.4 H RDW-SD (test code = 97361-3) 66.4 fL 38.5-51.6 H NRBC x10^3 (test code = 1286542663) See_Comment [Automated messa ge] The system which generated this result transmitted reference range: 10*3/?L. The reference range was not used to interpret this result as normal/abnormal. NRBC/100 WBC (test code = 7081158428) 0.0 See_Comment [Automated messa ge] The system which generated this result transmitted reference range: 0.0 - 10.0 /100 WBCs. The reference range was not used to interpret this result as normal/abnormal. IPF % (test code = 7443763540) Lab Interpretation (test code = 44325-7) Abnormal [facility] LakewayPrepare Packed RBC (in units), 1 Units 2023-03-01 14:31:00* Test Item Value Reference Range Interpretation Comme nts Cross Match Result (test code = 4409) Compatible ISBT Blood Type Code (test code = 452191) 5100 Unit Blood Type (test code = 4410) O Pos Unit Number (test code = 4411) [id number] Blood Expiration Date & Time (test code = 284874) [id number] Status Information (test code = 4412) Issued Product Identification (test code = 4413) Red Blood Cells Product Code (test code = 4414) [id number] Performed at [facility] Blood [address] [address]Khtl Free: [phone] No. [id number] [facility] Packed RBC (in units), 1 Units 2023-03-01 14:31:00* Test Item Value Reference Range Interpretation Comme nts Cross Match Result (test code = 4409) Compatible ISBT Blood Type Code (test code = 591984) 5100 Unit Blood Type (test code = 4410) O Pos Unit Number (test code = 4411) [id number] Blood Expiration Date & Time (test code = 474986) 969031144814 Status Information (test code = 4412) Issued Product Identification (test code = 4413) Red Blood Cells Product Code (test code = 4414) [id number] Performed at [facility] Blood [address] [id number] Free: [phone] No. [id number] [facility] [id number] 12:12:59* Test Item Value Reference Range Interpretation Comme nts SPUTUM CULTURE (test code = 622-1) Specimen cellular elements do not represent lower respiratory tract. Specimen rejected for routine bacterial culture. Suggest reorder and recollection. Gram stain (test code = 664-3) Numerous Epithelial cells [facility] [id number] 12:12:59* Test Item Value Reference Range Interpretation Comme nts SPUTUM CULTURE (test code = 622-1) Specimen cellular elements do not represent lower respiratory tract. Specimen rejected for routine bacterial culture. Suggest reorder and recollection. Gram stain (test code = 664-3) Numerous Epithelial cells [facility] Packed RBC (in units), 1 Units 2023-02-27 21:19:05* Test Item Value Reference Range Interpretation Comme nts Cross Match Result (test code = 4409) Compatible ISBT Blood Type Code (test code = 905512) 5100 Unit Blood Type (test code = 4410) O Pos Unit Number (test code = 4411) [id number] Blood Expiration Date & Time (test code = 216367) [id number] Status Information (test code = 4412) Issued Product Identification (test code = 4413) Red Blood Cells Product Code (test code = 4414) [id number] Performed at [facility] Laboratory Services [facility] Blood [address] [place] [address]Vame Free: [phone] No. [id number] [facility] LakewayAC Panel 20 + Lactic [id number] 04:29:10* Test Item Value Reference Range Interpretation Comme nts PH (test code = 2) 7.41 7.35-7.45 PCO2 (test code = 2292986414) 33 See_Comment L [Automated messa ge] The system which generated this result transmitted reference range: 35 - 45 mmHg. The reference range was not used to interpret this result as normal/abnormal. PO2 (test code = 0191310207) 77 See_Comment L [Automated messa ge] The system which generated this result transmitted reference range: 80 - 100 mmHg. The reference range was not used to interpret this result as normal/abnormal. HCO3 (test code = 7000341706) 20 See_Comment L [Automated messa ge] The system which generated this result transmitted reference range: 22 - 26 mEq/L. The reference range was not used to interpret this result as normal/abnormal. BE (test code = 7073151981) -3.2 See_Comment L [Automated messa ge] The system which generated this result transmitted reference range: -3.0 - 3.0 mEq/L. The reference range was not used to interpret this result as normal/abnormal. THB (test code = 8830314158) 12.6 g/dL 13.5-18.0 L %O2HB (test code = 4623396241) 93.5 % 94.0-99.0 L %COHB ART (test code = 3447525574) 0.8 % 0.0-1.5 %METHB ART (test code = 6027579233) 0.4 % 0.4-1.5 VOL%O2 ART (test code = 1027305047) 16.6 % 15.0-23.0 NA (test code = 1749787585) 136 mmol/L 135-145 K+ (test code = 0231082158) 3.8 mmol/L 3.5-5.0 AC CA IONZ (test code = 0717805096) 4.50 mg/dL 4.50-5.30 GLUCOSE (test code = 4004408293) 110 mg/dL 70-110 LACTIC ACID (test code = 3403251629) 1.84 mmol/L 0.50-2.20 Lab Interpretation (test code = 10256-3) Abnormal [facility]way[facility] Panel 20 + Lactic [id number] 04:29:10* Test Item Value Reference Range Interpretation Comme nts PH (test code = 2) 7.41 7.35-7.45 PCO2 (test code = 7784304117) 33 See_Comment L [Automated messa ge] The system which generated this result transmitted reference range: 35 - 45 mmHg. The reference range was not used to interpret this result as normal/abnormal. PO2 (test code = 4975209206) 77 See_Comment L [Automated messa ge] The system which generated this result transmitted reference range: 80 - 100 mmHg. The reference range was not used to interpret this result as normal/abnormal. HCO3 (test code = 6614505594) 20 See_Comment L [Automated messa ge] The system which generated this result transmitted reference range: 22 - 26 mEq/L. The reference range was not used to interpret this result as normal/abnormal. BE (test code = 2298451615) -3.2 See_Comment L [Automated messa ge] The system which generated this result transmitted reference range: -3.0 - 3.0 mEq/L. The reference range was not used to interpret this result as normal/abnormal. THB (test code = 3826619023) 12.6 g/dL 13.5-18.0 L %O2HB (test code = 8211900656) 93.5 % 94.0-99.0 L %COHB ART (test code = 7244171789) 0.8 % 0.0-1.5 %METHB ART (test code = 4395068384) 0.4 % 0.4-1.5 VOL%O2 ART (test code = 4050827464) 16.6 % 15.0-23.0 NA (test code = 3777818929) 136 mmol/L 135-145 K+ (test code = 6439691814) 3.8 mmol/L 3.5-5.0 AC CA IONZ (test code = 5289551823) 4.50 mg/dL 4.50-5.30 GLUCOSE (test code = 5229876692) 110 mg/dL 70-110 LACTIC ACID (test code = 3382833850) 1.84 mmol/L 0.50-2.20 Lab Interpretation (test code = 18063-0) Abnormal [facility] WITH [id number] 12:03:47* Test Item Value Reference Range Interpretation [...] 32.5 g/dL 31.2-35.0 RDW-SD (test code = 99387-5) 66.4 fL 38.5-51.6 H RDW-CV (test code = 788-0) 19.5 % 12.1-15.4 H PLT (test code = 777-3) 37 See_Comment LL [Automated messa ge] The system which generated this result transmitted reference range: 150 - 328 10*3/?L. The reference range was not used to interpret this result as normal/abnormal. MPV (test code = 96925-2) Not Measured IPF % (test code = 2594774677) 13.6 % 1.2-10.7 H Platelet count measured by fluorescence method. NRBC/100 WBC (test code = 8122981303) 0.1 See_Comment [Automated me ssage] The system which generated this result transmitted reference range: 0.0 - 10.0 /100 WBCs. The reference range was not used to interpret this result as normal/abnormal. NRBC x10^3 (test code = 2005893055) 0.02 See_Comment [Automated messa ge] The system which generated this result transmitted reference range: 10*3/?L. The reference range was not used to interpret this result as normal/abnormal. GRAN MAT (NEUT) % (test code = 770-8) 64.8 % IMM GRAN % (test code = 2822180793) 1.70 % LYMPH % (test code = 736-9) 13.8 % MONO % (test code = 5905-5) 13.1 % EOS % (test code = 713-8) 6.4 % BASO % (test code = 706-2) 0.2 % GRAN MAT x10^3(ANC) (test code = 5507647791) 10.52 10*3/uL 1.99-6.95 H IMM GRAN x10^3 (test code = 8047645425) 0.27 10*3/uL 0.00-0.06 H LYMPH x10^3 (test code = 731-0) 2.24 10*3/uL 1.09-3.23 MONO x10^3 (test code = 742-7) 2.12 10*3/uL 0.36-1.02 H EOS x10^3 (test code = 711-2) 1.04 10*3/uL 0.06-0.53 H BASO x10^3 (test code = 704-7) 0.04 10*3/uL 0.01-0.09 Lab Interpretation (test code = 44847-0) [facility] 11:57:16* Test Item Value Reference Range Interpretation Comme nts MAGNESIUM (test code = 0815981305) 2.6 mg/dL 1.7-2.4 H Lab Interpretation (test cod e = 93711-8) [facility] ([id number])2023-02-26 11:57:15* Test Item Value Reference Range Interpretation Comme nts NA (test code = 6618746136) 138 mmol/L 135-145 K (test code = 2054625470) 3.6 mmol/L 3.5-5.0 CL (test code = 4785209043) 104 mmol/L 98-108 CO2 TOTAL (test code = 3920771464) 24 mmol/L 23-31 AGAP (test code = 4831768546) 10 2-16 BUN (test code = 9298524381) 13 mg/dL 7-23 GLUCOSE (test code = 3282855206) 111 mg/dL 70-110 H CREATININE (test code = 6169218562) 2.58 mg/dL 0.60-1.25 H TOTAL BILI (test code = 0018810163) 2.7 mg/dL 0.1-1.1 H CALCIUM (test code = 2921161710) 8.4 mg/dL 8.6-10.6 L T PROTEIN (test code = 1181077835) 6.8 g/dL 6.3-8.2 ALBUMIN (test code = 4520650494) 4.1 g/dL 3.5-5.0 ALK PHOS (test code = 4220338931) 193 U/L 34-122 H ALTv (test code = 1742-6) 39 U/L 5-50 AST(SGOT) (test code = 8046263897) 206 U/L 13-40 H eGFR (test code = 94646-2) 28.3 mL/min/1.73m2 CKD-EPI eGFR (2020). Assuming creatinine has been stable day-to-day for at least three months, the eGFR indicates Category G4 (15 - 29 mL/min/1.73 m2) Lab Interpretation (test code = 79081-3) Abnormal [facility] WITHOUT [id number] 00:14:22* Test Item Value Reference Range Interpretation Comme nts WBC (test code = 6690-2) 11.07 See_Comment H [Automated REPPa ge] The system which generated this result [...] result as normal/abnormal. MPV (test code = 08011-0) 11.5 fL 9.8-13.0 RDW-CV (test code = 788-0) 19.5 % 12.1-15.4 H RDW-SD (test code = 59161-4) 66.5 fL 38.5-51.6 H NRBC x10^3 (test code = 7790973203) See_Comment [Automated REPPa ge] The system which generated this result transmitted reference range: 10*3/?L. The reference range was not used to interpret this result as normal/abnormal. NRBC/100 WBC (test code = 8097031487) 0.0 See_Comment [Automated REPPa ge] The system which generated this result transmitted reference range: 0.0 - 10.0 /100 WBCs. The reference range was not used to interpret this result as normal/abnormal. IPF % (test code = 2514221064) 12.8 % 1.2-10.7 H Platelet count measured by fluorescence method. Lab Interpretation (test code = 45140-9) [facility]23-[facility]-25 16:11:31* Test Item Value Reference Range Interpretation Comme nts PH (test code = 2) 7.45 7.35-7.45 PCO2 (test code = 9127857181) 34 See_Comment L [Automated messa ge] The system which generated this result transmitted reference range: 35 - 45 mmHg. The reference range was not used to interpret this result as normal/abnormal. PO2 (test code = 2101402640) 384 See_Comment H QUES [Automated message] The system which generated this result transmitted reference range: 80 - 100 mmHg. The reference range was not used to interpret this result as normal/abnormal. HCO3 (test code = 7318031450) 23 See_Comment [Automated messa ge] The system which generated this result transmitted reference range: 22 - 26 mEq/L. The reference range was not used to interpret this result as normal/abnormal. BE (test code = 5962117248) -1.1 See_Comment [Automated messa ge] The system which generated this result transmitted reference range: -3.0 - 3.0 mEq/L. The reference range was not used to interpret this result as normal/abnormal. Lab Interpretation (test code = 33853-9) Abnormal [facility] Arterial Blood Gas.2023-02-25 16:11:31* Test Item Value Reference Range Interpretation Comme nts PH (test code = 2) 7.45 7.35-7.45 PCO2 (test code = 0127108349) 34 See_Comment L [Automated messa ge] The system which generated this result transmitted reference range: 35 - 45 mmHg. The reference range was not used to interpret this result as normal/abnormal. PO2 (test code = 1387651363) 384 See_Comment H QUES [Automated message] The system which generated this result transmitted reference range: 80 - 100 mmHg. The reference range was not used to interpret this result as normal/abnormal. HCO3 (test code = 8753588612) 23 See_Comment [Automated messa ge] The system which generated this result transmitted reference range: 22 - 26 mEq/L. The reference range was not used to interpret this result as normal/abnormal. BE (test code = 5825411847) -1.1 See_Comment [Automated messa ge] The system which generated this result transmitted reference range: -3.0 - 3.0 mEq/L. The reference range was not used to interpret this result as normal/abnormal. Lab Interpretation (test code = 48333-2) Abnormal [facility] WITH [id number] 11:40:01* Test Item Value Reference Range Interpretation Comme nts WBC (test code = 6690-2) 14.58 See_Comment H [Automated REPPa ge] The system which generated this result transmitted reference range: 4.20 - 10.70 10*3/?L. The reference range was not used to interpret this result as normal/abnormal. RBC (test code = 789-8) 2.59 See_Comment L [Automated REPPa ge] The system which generated this result [...] 32.7 g/dL 31.2-35.0 RDW-SD (test code = 07256-3) 67.8 fL 38.5-51.6 H RDW-CV (test code = 788-0) 19.4 % 12.1-15.4 H PLT (test code = 777-3) 46 See_Comment LL [Automated REPPa ge] The system which generated this result transmitted reference range: 150 - 328 10*3/?L. The reference range was not used to interpret this result as normal/abnormal. MPV (test code = 64040-2) 11.3 fL 9.8-13.0 IPF % (test code = 0062777391) 8.9 % 1.2-10.7 Platelet count measured by fluorescence method. NRBC/100 WBC (test code = 1688648195) 0.0 See_Comment [Automated Prezma ssage] The system which generated this result transmitted reference range: 0.0 - 10.0 /100 WBCs. The reference range was not used to interpret this result as normal/abnormal. NRBC x10^3 (test code = 2922786089) See_Comment [Automated messa ge] The system which generated this result transmitted reference range: 10*3/?L. The reference range was not used to interpret this result as normal/abnormal. GRAN MAT (NEUT) % (test code = 770-8) 75.9 % IMM GRAN % (test code = 0923939969) 1.00 % LYMPH % (test code = 736-9) 8.4 % MONO % (test code = 5905-5) 9.3 % EOS % (test code = 713-8) 5.1 % BASO % (test code = 706-2) 0.3 % GRAN MAT x10^3(ANC) (test code = 7931601422) 11.06 10*3/uL 1.99-6.95 H IMM GRAN x10^3 (test code = 3332564002) 0.15 10*3/uL 0.00-0.06 H LYMPH x10^3 (test code = 731-0) 1.22 10*3/uL 1.09-3.23 MONO x10^3 (test code = 742-7) 1.36 10*3/uL 0.36-1.02 H EOS x10^3 (test code = 711-2) 0.74 10*3/uL 0.06-0.53 H BASO x10^3 (test code = 704-7) 0.05 10*3/uL 0.01-0.09 Lab Interpretation (test code = 56704-0) [facility]23[facility] 11:03:46* Test Item Value Reference Range Interpretation Comme nts MAGNESIUM (test code = 3347073415) 2.5 mg/dL 1.7-2.4 H Lab Interpretation (test cod e = 61688-6) [facility] (00883)2023-02-25 11:03:46* Test Item Value Reference Range Interpretation Comme nts NA (test code = 3485633249) 137 mmol/L 135-145 K (test code = 8985010253) 4.1 mmol/L 3.5-5.0 CL (test code = 6821305829) 104 mmol/L 98-108 CO2 TOTAL (test code = 5531259815) 20 mmol/L 23-31 L AGAP (test code = 5147371427) 13 2-16 BUN (test code = 5267070811) 24 mg/dL 7-23 H GLUCOSE (test code = 5974912852) 110 mg/dL 70-110 CREATININE (test code = 5745423858) 5.26 mg/dL 0.60-1.25 H TOTAL BILI (test code = 8431679202) 2.2 mg/dL 0.1-1.1 H CALCIUM (test code = 4789317616) 8.4 mg/dL 8.6-10.6 L T PROTEIN (test code = 3798332122) 6.6 g/dL 6.3-8.2 ALBUMIN (test code = 6566258309) 3.8 g/dL 3.5-5.0 ALK PHOS (test code = 9442380621) 214 U/L 34-122 H ALTv (test code = 1742-6) 45 U/L 5-50 AST(SGOT) (test code = 4111748932) 218 U/L 13-40 H eGFR (test code = 57159-9) 12.0 mL/min/1.73m2 CKD-EPI eGFR (2020). Assuming creatinine has been stable day-to-day for at least three months, the eGFR indicates Category G5 (<= 14mL/min/1.73 m2) Lab Interpretation (test code = 75445-9) [facility]2023-[facility] 11:03:46* Test Item Value Reference Range Interpretation Comme nts PHOSPHORUS (test code = 3092233234) 2.9 mg/dL 2.5-5.0 Lab Interpretation (test cod e = 24678-6) [facility] (NA, K, CL, CO2, GLUCOSE, BUN, CREATININE, CA)2023-02-24 18:45:30* Test Item Value Reference Range Interpretation Comme nts NA (test code = 9979916957) 136 mmol/L 135-145 K (test code = 0775573744) 4.0 mmol/L 3.5-5.0 CL (test code = 1909128886) 102 mmol/L 98-108 CO2 TOTAL (test code = 5140517316) 19 mmol/L 23-31 L AGAP (test code = 4504476267) 15 2-16 BUN (test code = 7298092835) 32 mg/dL 7-23 H GLUCOSE (test code = 6418372243) 106 mg/dL 70-110 CREATININE (test code = 3223617209) 7.57 mg/dL 0.60-1.25 H CALCIUM (test code = 8881511052) 8.7 mg/dL 8.6-10.6 eGFR (test code = 47322-0) 7.8 mL/min/1.73m2 CKD-EPI eGFR (2020). Assuming creatinine has been stable day-to-day for at least three months, the eGFR indicates Category G5 (<= 14mL/min/1.73 m2) Lab Interpretation (test code = 97449-7) [facility] [id number] 11:01:20* Test Item Value Reference Range Interpretation Comme nts Blood Culture-Aerobic (test code = 48392-0) No organisms isolated No growth Previous preliminary verified result was Culture In Progress on 02/19/[address] [place], [place] [address]TPrevious preliminary verified result was No growth at 24 hours on 02/20/[address] [place], [place] [address]TPrevious preliminary verified result was No growth at 48 hours on 02/21/2023 at [facility] CDTPrevious preliminary verified result was No growth at 72 hours on 02/22/[address] [place] [address] Blood Culture-Anaerobic (test code = 58511-5) No organisms isolated No growth Previous preliminary verified result was Culture In Progress on 02/19/[address] [place], [place] [address]TPrevious preliminary verified result was No growth at 24 hours on 02/20/2023 at [facility] CDTPrevious preliminary verified result was No growth at 48 hours on 02/21/2023 at [facility] CDTPrevious preliminary verified result was No growth at 72 hours on 02/22/[address] [place], [place] [address]T Lab Interpretation (test code = 53975-3) Normal [facility] WITH [id number] 10:50:27* Test Item Value Reference Range Interpretation Comme nts WBC (test code = 6690-2) 9.03 See_Comment [Automated messa ge] The system which generated this result transmitted reference range: 4.20 - 10.70 10*3/?L. The reference range was not used to interpret this result as normal/abnormal. RBC (test code = 789-8) 2.73 See_Comment L [Automated REPPa ge] The system which generated this result [...] 33.5 g/dL 31.2-35.0 RDW-SD (test code = 03725-3) 66.4 fL 38.5-51.6 H RDW-CV (test code = 788-0) 19.7 % 12.1-15.4 H PLT (test code = 777-3) 42 See_Comment LL [Automated REPPa ge] The system which generated this result transmitted reference range: 150 - 328 10*3/?L. The reference range was not used to interpret this result as normal/abnormal. MPV (test code = 29007-8) 10.3 fL 9.8-13.0 IPF % (test code = 4458364094) 8.1 % 1.2-10.7 Platelet count measured by fluorescence method. NRBC/100 WBC (test code = 3257120889) 0.0 See_Comment [Automated Prezma ssage] The system which generated this result transmitted reference range: 0.0 - 10.0 /100 WBCs. The reference range was not used to interpret this result as normal/abnormal. NRBC x10^3 (test code = 1920811930) See_Comment [Automated REPPa ge] The system which generated this result transmitted reference range: 10*3/?L. The reference range was not used to interpret this result as normal/abnormal. GRAN MAT (NEUT) % (test code = 770-8) 66.1 % IMM GRAN % (test code = 8447210706) 0.80 % LYMPH % (test code = 736-9) 13.2 % MONO % (test code = 5905-5) 10.2 % EOS % (test code = 713-8) 9.3 % BASO % (test code = 706-2) 0.4 % GRAN MAT x10^3(ANC) (test code = 3159291954) 5.97 10*3/uL 1.99-6.95 IMM GRAN x10^3 (test code = 8298540277) 0.07 10*3/uL 0.00-0.06 H LYMPH x10^3 (test code = 731-0) 1.19 10*3/uL 1.09-3.23 MONO x10^3 (test code = 742-7) 0.92 10*3/uL 0.36-1.02 EOS x10^3 (test code = 711-2) 0.84 10*3/uL 0.06-0.53 H BASO x10^3 (test code = 704-7) 0.04 10*3/uL 0.01-0.09 Lab Interpretation (test code = 85774-6) [facility]2023-[facility]-02 10:30:39* Test Item Value Reference Range Interpretation Comme nts MAGNESIUM (test code = 7195110201) 2.6 mg/dL 1.7-2.4 H Lab Interpretation (test cod e = 93924-5) [facility]normal [facility] (55330)2023-02-24 10:30:39* Test Item Value Reference Range Interpretation Comme nts NA (test code = 3385982526) 135 mmol/L 135-145 K (test code = 3374405096) 4.2 mmol/L 3.5-5.0 CL (test code = 3164541968) 102 mmol/L 98-108 CO2 TOTAL (test code = 6537131612) 19 mmol/L 23-31 L AGAP (test code = 3569340977) 14 2-16 BUN (test code = 1926894439) 31 mg/dL 7-23 H GLUCOSE (test code = 3597767147) 110 mg/dL 70-110 CREATININE (test code = 7285120831) 7.39 mg/dL 0.60-1.25 H TOTAL BILI (test code = 6520548310) 2.2 mg/dL 0.1-1.1 H CALCIUM (test code = 8651562221) 9.1 mg/dL 8.6-10.6 T PROTEIN (test code = 5254556012) 7.0 g/dL 6.3-8.2 ALBUMIN (test code = 4807650490) 4.1 g/dL 3.5-5.0 ALK PHOS (test code = 4599826763) 218 U/L 34-122 H ALTv (test code = 1742-6) 53 U/L 5-50 H AST(SGOT) (test code = 6319060398) 242 U/L 13-40 H eGFR (test code = 99668-3) 8.0 mL/min/1.73m2 CKD-EPI eGFR (2020). Assuming creatinine has been stable day-to-day for at least three months, the eGFR indicates Category G5 (<= 14mL/min/1.73 m2) Lab Interpretation (test code = 89008-8) [facility]2023-[facility]-02 10:30:39* Test Item Value Reference Range Interpretation Comme nts PHOSPHORUS (test code = 3493999365) 3.6 mg/dL 2.5-5.0 Lab Interpretation (test cod e = 15252-1) [facility] (NA, K, CL, CO2, GLUCOSE, BUN, CREATININE, CA)2023-02-24 10:30:39* Test Item Value Reference Range Interpretation Comme nts NA (test code = 8853258698) 135 mmol/L 135-145 K (test code = 0586118212) 4.2 mmol/L 3.5-5.0 CL (test code = 3419646262) 102 mmol/L 98-108 CO2 TOTAL (test code = 1378728923) 19 mmol/L 23-31 L AGAP (test code = 8172732725) 14 2-16 BUN (test code = 9544245774) 31 mg/dL 7-23 H GLUCOSE (test code = 1699818662) 110 mg/dL 70-110 CREATININE (test code = 0370131612) 7.39 mg/dL 0.60-1.25 H CALCIUM (test code = 6617537366) 9.1 mg/dL 8.6-10.6 eGFR (test code = 07296-4) 8.0 mL/min/1.73m2 CKD-EPI eGFR (2020). Assuming creatinine has been stable day-to-day for at least three months, the eGFR indicates Category G5 (<= 14mL/min/1.73 m2)CKD-EPI eGFR (2020). Assuming creatinine has been stable day-to-day for at least three months, the eGFR indicates Category G5 (<= 14mL/min/1.73 m2) Lab Interpretation (test code = 12839-6) [facility] 20 + Lactic [id number] 21:58:55* Test Item Value Reference Range Interpretation Comme nts PH (test code = 2) 7.47 7.35-7.45 H PCO2 (test code = 5573635308) 30 See_Comment L [Automated messa ge] The system which generated this result transmitted reference range: 35 - 45 mmHg. The reference range was not used to interpret this result as normal/abnormal. PO2 (test code = 5534460798) 96 See_Comment [Automated messa ge] The system which generated this result transmitted reference range: 80 - 100 mmHg. The reference range was not used to interpret this result as normal/abnormal. HCO3 (test code = 3508640018) 21 See_Comment L [Automated messa ge] The system which generated this result transmitted reference range: 22 - 26 mEq/L. The reference range was not used to interpret this result as normal/abnormal. BE (test code = 5963679754) -2.1 See_Comment [Automated messa ge] The system which generated this result transmitted reference range: -3.0 - 3.0 mEq/L. The reference range was not used to interpret this result as normal/abnormal. THB (test code = 3831204042) 10.5 g/dL 13.5-18.0 L %O2HB (test code = 7607091151) 97.4 % 94.0-99.0 %COHB ART (test code = 6676143081) 0.3 % 0.0-1.5 %METHB ART (test code = 9796719336) 0.0 % 0.4-1.5 L VOL%O2 ART (test code = 0886466601) 14.5 % 15.0-23.0 L NA (test code = 9640510092) 131 mmol/L 135-145 L K+ (test code = 8314141540) 3.9 mmol/L 3.5-5.0 AC CA IONZ (test code = 1621669364) 4.50 mg/dL 4.50-5.30 GLUCOSE (test code = 7933782540) 100 mg/dL 70-110 LACTIC ACID (test code = 4423631923) 1.70 mmol/L 0.50-2.20 QUES Lab Interpretation (test code = 73204-3) [facility] 20 + Lactic [id number] 16:28:05* Test Item Value Reference Range Interpretation Comme nts PH (test code = 2) 7.53 7.35-7.45 H PCO2 (test code = 9123861517) 26 See_Comment L [Automated messa ge] The system which generated this result transmitted reference range: 35 - 45 mmHg. The reference range was not used to interpret this result as normal/abnormal. PO2 (test code = 0809697222) 87 See_Comment [Automated messa ge] The system which generated this result transmitted reference range: 80 - 100 mmHg. The reference range was not used to interpret this result as normal/abnormal. HCO3 (test code = 9664945606) 21 See_Comment L [Automated messa ge] The system which generated this result transmitted reference range: 22 - 26 mEq/L. The reference range was not used to interpret this result as normal/abnormal. BE (test code = 1639927690) -0.9 See_Comment [Automated messa ge] The system which generated this result transmitted reference range: -3.0 - 3.0 mEq/L. The reference range was not used to interpret this result as normal/abnormal. THB (test code = 6402828790) 10.0 g/dL 13.5-18.0 L %O2HB (test code = 1086621369) 97.2 % 94.0-99.0 %COHB ART (test code = 7116125193) 0.3 % 0.0-1.5 %METHB ART (test code = 5609274725) 0.1 % 0.4-1.5 L VOL%O2 ART (test code = 7457900681) 13.8 % 15.0-23.0 L NA (test code = 2783297193) 129 mmol/L 135-145 L K+ (test code = 6430703156) 3.8 mmol/L 3.5-5.0 AC CA IONZ (test code = 9182444108) 4.20 mg/dL 4.50-5.30 L GLUCOSE (test code = 9665525706) 101 mg/dL 70-110 LACTIC ACID (test code = 8969893986) 1.62 mmol/L 0.50-2.20 Lab Interpretation (test code = 21095-6) [facility]2023-[facility]-31 10:54:26* Test Item Value Reference Range Interpretation Comme nts MAGNESIUM (test code = 1667403212) 2.2 mg/dL 1.7-2.4 Lab Interpretation (test cod e = 35577-3) [facility] (58477)2023-02-22 10:54:25* Test Item Value Reference Range Interpretation Comme nts NA (test code = 8176317929) 130 mmol/L 135-145 L K (test code = 2158578594) 3.8 mmol/L 3.5-5.0 CL (test code = 3323624773) 99 mmol/L 98-108 CO2 TOTAL (test code = 3135531384) 20 mmol/L 23-31 L AGAP (test code = 2031272343) 11 2-16 BUN (test code = 8365482923) 17 mg/dL 7-23 GLUCOSE (test code = 6811009973) 107 mg/dL 70-110 CREATININE (test code = 4311069619) 3.96 mg/dL 0.60-1.25 H TOTAL BILI (test code = 8620964654) 2.5 mg/dL 0.1-1.1 H CALCIUM (test code = 4126317421) 7.8 mg/dL 8.6-10.6 L T PROTEIN (test code = 1898920404) 6.7 g/dL 6.3-8.2 ALBUMIN (test code = 7424168031) 3.5 g/dL 3.5-5.0 ALK PHOS (test code = 1699457716) 332 U/L 34-122 H ALTv (test code = 1742-6) 73 U/L 5-50 H AST(SGOT) (test code = 6878820745) 405 U/L 13-40 H eGFR (test code = 88614-1) 16.9 mL/min/1.73m2 CKD-EPI eGFR (2020). Assuming creatinine has been stable day-to-day for at least three months, the eGFR indicates Category G4 (15 - 29 mL/min/1.73 m2) Lab Interpretation (test code = 93557-1) [facility].2023-02-21 22:56:14* Test Item Value Reference Range Interpretation Comme nts PH (test code = 2) 7.40 7.35-7.45 PCO2 (test code = 6383050809) 34 See_Comment L [Automated messa ge] The system which generated this result transmitted reference range: 35 - 45 mmHg. The reference range was not used to interpret this result as normal/abnormal. PO2 (test code = 9477380269) 108 See_Comment H QUES [Automated message] The system which generated this result transmitted reference range: 80 - 100 mmHg. The reference range was not used to interpret this result as normal/abnormal. HCO3 (test code = 8803835872) 21 See_Comment L [Automated messa ge] The system which generated this result transmitted reference range: 22 - 26 mEq/L. The reference range was not used to interpret this result as normal/abnormal. BE (test code = 0443651377) -3.5 See_Comment L [Automated messa ge] The system which generated this result transmitted reference range: -3.0 - 3.0 mEq/L. The reference range was not used to interpret this result as normal/abnormal. Lab Interpretation (test code = 55929-1) [facility]normal [facility] ([facility]E)2023-02-21 22:32:50* Test Item Value Reference Range Interpretation Comme nts Height (test code = 8789592470) 69 in Weight (test code = 0878990607) 206 lbs Systolic BP (test code = 2510982725) 154 mmHg Diastolic BP (test code = 8061595558) 90 mmHg Heart Rate (test code = 5675997878) 98 bpm LVOT stroke volume (test code = 1425095599) 88.00 cm3 EF(Teich) (test code = 2968100238) 57.60 % LVIDD (test code = 0052880434) 6.30 cm LVIDS (test code = 4492191761) 4.30 cm Left Ventricular End Systolic Volume by Teichholz Method (test code = 2133514) 84.8 mL Left Ventricular End Diastolic Volume by Teichholz Method (test code = 7432062) 200.1 mL IVS (test code = 0670292048) 1.34 cm LVPWD (test code = 9677431039) 1.16 cm LVOT diameter (test code = 7686129703) 2.19 cm LVOT area (test code = 0539746710) 3.80 cm2 FS (test code = 6960674705) 31 % MV Peak E Cy (test code = 9940913700) 136.7 cm/s MV Peak A Cy (test code = 8786258085) 93.0 cm/s E/A ratio (test code = 7336670829) 1.47 ratio E wave decelartion time (test code = 1375307624) 0.10 s LA Volume Index (BP) (test code = 5794517001) 40.1 mL/m2 LA volume (BP) (test code = 9000471306) 84.0 mL LVOT peak cy (test code = 4896425777) 133.8 cm/s LVOT mn grad (test code = 3860601092) 3.9 mmHg BSA (test code = 5888186415) 2.09 m2 LA size (test code = 0308867881) 5.2 cm LAV(MOD-sp2) (test code = 2299776295) 68.20 mL LAV(MOD-sp4) (test code = 0731580945) 68.10 mL Tapse (test code = 9067726712) 2.29 cm Ao peak cy (test code = 9328802204) 186.8 cm/s AV LVOT peak gradient (test code = 5599856652) 7.2 mmHg LVOT peak VTI (test code = 0266042252) 23.4 cm AV area peak cy (test code = 4778004849) 2.7 cm2 LV V1 mean (test code = 9402313964) 94.40 cm/s Ao max PG (test code = 0411834769) 14.00 mm[Hg] MV Prop V (test code = 7844172084) 32.40 cm/s Ao root diam (test code = 6897575907) 3.70 cm AV peak gradient (test code = 9774480829) 14.0 mmHg Aortic root (test code = 6662337354) 3.7 cm Ao root annulus (test code = 5454975756) 3.7 cm PW (test code = 5169776103) 1.16 cm 0.6-1.1 EF - 2D (test code = 29215847) 57.60 % Interventricular Septum Diastolic Thickness by 2D (test code = 4768435) 1.34 cm TR Peak Cy (test code = 5237653403) 136.8 cm/s Triscuspid Valve Regurgitation Peak Gradient (test code = 8771011702) 7.5 mmHg TASV (test code = 1375289206) 15.1 cm/s A2C EF (test code = 0472388175) 58.70 % EF(sp2-el) (test code = 2131303965) 60.40 % SV(MOD-sp2) (test code = 7046384234) 85.90 mL LV Diastolic Volume (BP) (test code = 6867233496) 146.0 mL A4C EF (test code = 1577870479) 52.90 % EF(MOD-bp) (test code = 6705588447) 54.70 % EF(sp4-el) (test code = 6982622096) 53.60 % LV Systolic Volume (BP) (test code = 7135911345) 66.2 mL SV(MOD-bp) (test code = 2334955764) 79.80 mL SV(MOD-sp4) (test code = 0520056349) 75.70 mL SV(sp4-el) (test code = 9669438842) 75.90 mL EF (test code = 7619104446) 55 Left Ventricular Stroke Volume by 2-D Biplane-MOD (test code = 4273235) 79.8 mL LV Diastolic Volume Index (BP) (test code = 5091826766) 69.9 mL/m2 LV Systolic Volume Index (BP) (test code = 7020764693) 31.7 mL/m2 Radiology Study observation (narrative) (test code = 17612-1) BOBBY (test code = BOBBY) ?Left?Ventricle: Left [...] aorta. Measures 4 cm and index 1.9 cm/a3WssurounnwrPlb pericardium is normal. No pericardial effusion.Study DetailsStudy [...] segments are normal. [facility] + Lactic [id number] 20:41:00* Test Item Value Reference Range Interpretation Comme nts PH (test code = 2) 7.15 7.35-7.45 LL PCO2 (test code = 1178073447) 73 See_Comment H [Automated messa ge] The system which generated this result transmitted reference range: 35 - 45 mmHg. The reference range was not used to interpret this result as normal/abnormal. PO2 (test code = 6403595041) 147 See_Comment H [Automated messa ge] The system which generated this result transmitted reference range: 80 - 100 mmHg. The reference range was not used to interpret this result as normal/abnormal. HCO3 (test code = 0179986703) 25 See_Comment [Automated messa ge] The system which generated this result transmitted reference range: 22 - 26 mEq/L. The reference range was not used to interpret this result as normal/abnormal. BE (test code = 0825631825) -4.7 See_Comment L [Automated messa ge] The system which generated this result transmitted reference range: -3.0 - 3.0 mEq/L. The reference range was not used to interpret this result as normal/abnormal. THB (test code = 1304627533) 10.1 g/dL 13.5-18.0 L %O2HB (test code = 4484382719) 98.4 % 94.0-99.0 %COHB ART (test code = 4057573751) 0.2 % 0.0-1.5 %METHB ART (test code = 6932033816) 0.2 % 0.4-1.5 L VOL%O2 ART (test code = 5572966381) 14.3 % 15.0-23.0 L NA (test code = 4389123022) 129 mmol/L 135-145 L K+ (test code = 1180279001) 4.4 mmol/L 3.5-5.0 AC CA IONZ (test code = 0416973485) 4.20 mg/dL 4.50-5.30 L GLUCOSE (test code = 9443540346) 159 mg/dL 70-110 H LACTIC ACID (test code = 1286885216) 1.02 mmol/L 0.50-2.20 QUES Lab Interpretation (test code = 40591-3) [facility]normal [facility] + Lactic [id number] 17:21:48* Test Item Value Reference Range Interpretation Comme nts PH (test code = 2) 7.25 7.35-7.45 L PCO2 (test code = 4402808329) 56 See_Comment H [Automated messa ge] The system which generated this result transmitted reference range: 35 - 45 mmHg. The reference range was not used to interpret this result as normal/abnormal. PO2 (test code = 2622997230) 103 See_Comment H [Automated messa ge] The system which generated this result transmitted reference range: 80 - 100 mmHg. The reference range was not used to interpret this result as normal/abnormal. HCO3 (test code = 6954206015) 24 See_Comment [Automated messa ge] The system which generated this result transmitted reference range: 22 - 26 mEq/L. The reference range was not used to interpret this result as normal/abnormal. BE (test code = 0546588326) -4.0 See_Comment L [Automated messa ge] The system which generated this result transmitted reference range: -3.0 - 3.0 mEq/L. The reference range was not used to interpret this result as normal/abnormal. THB (test code = 7957353815) 11.0 g/dL 13.5-18.0 L %O2HB (test code = 4937691090) 96.9 % 94.0-99.0 %COHB ART (test code = 1368665392) 0.3 % 0.0-1.5 %METHB ART (test code = 3269837968) 0.3 % 0.4-1.5 L VOL%O2 ART (test code = 9289209872) 15.1 % 15.0-23.0 NA (test code = 5862104368) 130 mmol/L 135-145 L K+ (test code = 7490041591) 4.1 mmol/L 3.5-5.0 AC CA IONZ (test code = 4386185004) 4.10 mg/dL 4.50-5.30 L GLUCOSE (test code = 5529284680) 146 mg/dL 70-110 H LACTIC ACID (test code = 4898583683) 1.23 mmol/L 0.50-2.20 QUES Lab Interpretation (test code = 10603-3) [facility]88002[facility] (ALB,T.PRO,BILI T,BU/BC,ALT,AST,ALK PHOS)2023-02-21 11:23:27* Test Item Value Reference Range Interpretation Comme nts TOTAL BILI (test code = 4142040851) 2.3 mg/dL 0.1-1.1 H BILI UNCON (test code = 1560330126) 0.6 mg/dL 0.1-1.1 BILI CONJ (test code = 1975056277) 0.0 mg/dL 0.0-0.3 T PROTEIN (test code = 8029616512) 7.4 g/dL 6.3-8.2 ALBUMIN (test code = 1002684549) 4.1 g/dL 3.5-5.0 ALK PHOS (test code = 7879640579) 334 U/L 34-122 H ALTv (test code = 1742-6) 86 U/L 5-50 H AST(SGOT) (test code = 9496535991) 403 U/L 13-40 H Lab Interpretation (test cod e = 61299-8) Abnormal [facility] WITH [id number] 11:23:27* Test Item Value Reference Range Interpretation [...] 32.8 g/dL 31.2-35.0 RDW-SD (test code = 47177-6) 63.8 fL 38.5-51.6 H RDW-CV (test code = 788-0) 18.5 % 12.1-15.4 H PLT (test code = 777-3) 56 See_Comment L [Automated REPPa ge] The system which generated this result transmitted reference range: 150 - 328 10*3/?L. The reference range was not used to interpret this result as normal/abnormal. MPV (test code = 60969-9) 11.0 fL 9.8-13.0 IPF % (test code = 0160610607) 7.4 % 1.2-10.7 Platelet count measured by fluorescence method. NRBC/100 WBC (test code = 6507739695) 0.0 See_Comment [Automated Prezma ssage] The system which generated this result transmitted reference range: 0.0 - 10.0 /100 WBCs. The reference range was not used to interpret this result as normal/abnormal. NRBC x10^3 (test code = 1425526830) See_Comment [Automated REPPa ge] The system which generated this result transmitted reference range: 10*3/?L. The reference range was not used to interpret this result as normal/abnormal. GRAN MAT (NEUT) % (test code = 770-8) 88.2 % IMM GRAN % (test code = 0240454536) 0.70 % LYMPH % (test code = 736-9) 3.4 % MONO % (test code = 5905-5) 7.3 % EOS % (test code = 713-8) 0.3 % BASO % (test code = 706-2) 0.1 % GRAN MAT x10^3(ANC) (test code = 4060975041) 8.25 10*3/uL 1.99-6.95 H IMM GRAN x10^3 (test code = 9420278263) 0.07 10*3/uL 0.00-0.06 H LYMPH x10^3 (test code = 731-0) 0.32 10*3/uL 1.09-3.23 L MONO x10^3 (test code = 742-7) 0.68 10*3/uL 0.36-1.02 EOS x10^3 (test code = 711-2) 0.03 10*3/uL 0.06-0.53 L BASO x10^3 (test code = 704-7) 0.01-0.09 Lab Interpretation (test code = 64946-0) Abnormal [facility] METABOLIC PANEL (NA, K, CL, CO2, GLUCOSE, BUN, CREATININE, CA)2023-02-21 11:23:27* Test Item Value Reference Range Interpretation Comme nts NA (test code = 1277334762) 131 mmol/L 135-145 L K (test code = 0938591885) 4.2 mmol/L 3.5-5.0 CL (test code = 1358487799) 96 mmol/L 98-108 L CO2 TOTAL (test code = 8069964299) 22 mmol/L 23-31 L AGAP (test code = 0047445420) 13 2-16 BUN (test code = 1385310848) 21 mg/dL 7-23 GLUCOSE (test code = 1261481486) 158 mg/dL 70-110 H CREATININE (test code = 5140018969) 3.61 mg/dL 0.60-1.25 H CALCIUM (test code = 4711960465) 7.2 mg/dL 8.6-10.6 L eGFR (test code = 31764-3) 17.6 mL/min/1.73m2 BOBBY (test code = BOBBY) [...] imaging tests). Lab Interpretation (test code = 40969-6) [facility]normal [facility] (67286) (ALB,T.PRO,BILI T,BU/BC,ALT,AST,ALK PHOS)2023-02-21 11:23:27* Test Item Value Reference Range Interpretation Comme nts TOTAL BILI (test code = 8470494983) 2.3 mg/dL 0.1-1.1 H BILI UNCON (test code = 3585763774) 0.6 mg/dL 0.1-1.1 BILI CONJ (test code = 6979820641) 0.0 mg/dL 0.0-0.3 T PROTEIN (test code = 2836894359) 7.4 g/dL 6.3-8.2 ALBUMIN (test code = 5446667516) 4.1 g/dL 3.5-5.0 ALK PHOS (test code = 1281589968) 334 U/L 34-122 H ALTv (test code = 1742-6) 86 U/L 5-50 H AST(SGOT) (test code = 2926340104) 403 U/L 13-40 H Lab Interpretation (test cod e = 30377-3) Abnormal [facility]way[facility]throm[facility] Time / [id number] 11:08:05* Test Item Value Reference Range Interpretation Comme [facility] PROTIME PATIENT (test code = 5964-2) [...] the indications. Lab Interpretation (test code = 20708-2) Abnormal [facility] 1/2 AG-AB WITH [id number] 04:10:12* Test Item Value Reference Range Interpretation Comme [facility] HIV Semi-quantitative (test code = 57909-5) 0.12 Negative BOBBY (test code = BOBBY) Non-reactive for HIV-1 antigen and HIV-1/HIV-2 antibodies. ?No laboratory evidence of HIV infection. ?Repeat in 2-4 weeks if acute HIV infection is suspected. [facility] 1/2 AG-AB WITH [id number] 04:10:12* Test Item Value Reference Range Interpretation Comme [facility] HIV Semi-quantitative (test code = 43177-8) 0.12 Negative BOBBY (test code = BOBBY) Non-reactive for HIV-1 antigen and HIV-1/HIV-2 antibodies. ?No laboratory evidence of HIV infection. ?Repeat in 2-4 weeks if acute HIV infection is suspected. [facility] + Lactic [id number] 20:02:14* Test Item Value Reference Range Interpretation Comme [facility] PH (test code = 2) 7.26 7.35-7.45 L PCO2 (test code = 6582789011) 48 See_Comment H [Automated messa ge] The system which generated this result transmitted reference range: 35 - 45 mmHg. The reference range was not used to interpret this result as normal/abnormal. PO2 (test code = 6742016862) 86 See_Comment [Automated messa ge] The system which generated this result transmitted reference range: 80 - 100 mmHg. The reference range was not used to interpret this result as normal/abnormal. HCO3 (test code = 4074448621) 21 See_Comment L [Automated messa ge] The system which generated this result transmitted reference range: 22 - 26 mEq/L. The reference range was not used to interpret this result as normal/abnormal. BE (test code = 7064524743) -6.0 See_Comment L [Automated messa ge] The system which generated this result transmitted reference range: -3.0 - 3.0 mEq/L. The reference range was not used to interpret this result as normal/abnormal. THB (test code = 6042230233) 12.6 g/dL 13.5-18.0 L %O2HB (test code = 6330448551) 94.9 % 94.0-99.0 %COHB ART (test code = 6525867234) 0.4 % 0.0-1.5 %METHB ART (test code = 5278246264) 0.2 % 0.4-1.5 L VOL%O2 ART (test code = 8457626582) 16.9 % 15.0-23.0 NA (test code = 6236976496) 126 mmol/L 135-145 L K+ (test code = 0517994467) 4.2 mmol/L 3.5-5.0 AC CA IONZ (test code = 0268423589) 3.80 mg/dL 4.50-5.30 L GLUCOSE (test code = 8624740260) 161 mg/dL 70-110 H LACTIC ACID (test code = 1568231069) 1.23 mmol/L 0.50-2.20 QUES Lab Interpretation (test code = 40072-1) Abnormal [facility] METABOLIC PANEL (NA, K, CL, CO2, GLUCOSE, BUN, CREATININE, CA)2023-02-20 19:11:54* Test Item Value Reference Range Interpretation Comme nts NA (test code = 0887036408) 127 mmol/L 135-145 L K (test code = 5488637766) 4.4 mmol/L 3.5-5.0 CL (test code = 7093044647) 94 mmol/L 98-108 L CO2 TOTAL (test code = 0824461708) 21 mmol/L 23-31 L AGAP (test code = 0209473007) 12 2-16 BUN (test code = 0992072275) 36 mg/dL 7-23 H GLUCOSE (test code = 3304052811) 160 mg/dL 70-110 H CREATININE (test code = 9102782387) 5.68 mg/dL 0.60-1.25 H CALCIUM (test code = 6386135087) 6.9 mg/dL 8.6-10.6 L eGFR (test code = 77303-0) 10.4 mL/min/1.73m2 BOBBY (test code = BOBBY) [...] imaging tests). Lab Interpretation (test code = 79982-3) Abnormal [facility]way[facility]MONIA, [id number] 19:07:13* Test Item Value Reference Range Interpretation Comme [facility] AMMONIA (test code = 2231886794) 39 umol/L 9-33 H Lab Interpretation (test cod e = 79872-4) Abnormal [facility]way[facility] GLUCOSE (AUTOMATED)2023-02-20 16:14:29* Test Item Value Reference Range Interpretation Comme [facility] POCT GLU (test code = 2443416535) 154 mg/dL 70-110 H Lab Interpretation (test cod e = 81166-8) Abnormal [facility] (AUTOMATED)2023-02-20 16:14:29* Test Item Value Reference Range Interpretation Comme [facility] POCT GLU (test code = 2345785885) 154 mg/dL 70-110 H Lab Interpretation (test cod e = 31585-3) Abnormal [facility] WITH [id number] 10:35:29* Test Item Value Reference Range Interpretation Comme [facility] WBC (test code = 6690-2) 8.51 See_Comment [...] 34.7 g/dL 31.2-35.0 RDW-SD (test code = 79695-0) 59.2 fL 38.5-51.6 H RDW-CV (test code = 788-0) 18.0 % 12.1-15.4 H PLT (test code = 777-3) 104 See_Comment L [Automated messa ge] The system which generated this result transmitted reference range: 150 - 328 10*3/?L. The reference range was not used to interpret this result as normal/abnormal. MPV (test code = 07169-7) 11.3 fL 9.8-13.0 IPF % (test code = 2201640573) 6.3 % 1.2-10.7 Platelet count measured by fluorescence method. NRBC/100 WBC (test code = 7205940603) 0.0 See_Comment [Automated me ssage] The system which generated this result transmitted reference range: 0.0 - 10.0 /100 WBCs. The reference range was not used to interpret this result as normal/abnormal. NRBC x10^3 (test code = 8326025534) See_Comment [Automated messa ge] The system which generated this result transmitted reference range: 10*3/?L. The reference range was not used to interpret this result as normal/abnormal. GRAN MAT (NEUT) % (test code = 770-8) 88.6 % IMM GRAN % (test code = 2105555622) 0.80 % LYMPH % (test code = 736-9) 4.6 % MONO % (test code = 5905-5) 4.9 % EOS % (test code = 713-8) 0.9 % BASO % (test code = 706-2) 0.2 % GRAN MAT x10^3(ANC) (test code = 2550362093) 7.53 10*3/uL 1.99-6.95 H IMM GRAN x10^3 (test code = 4467750456) 0.07 10*3/uL 0.00-0.06 H LYMPH x10^3 (test code = 731-0) 0.39 10*3/uL 1.09-3.23 L MONO x10^3 (test code = 742-7) 0.42 10*3/uL 0.36-1.02 EOS x10^3 (test code = 711-2) 0.08 10*3/uL 0.06-0.53 BASO x10^3 (test code = 704-7) 0.01-0.09 Lab Interpretation (test code = 09960-2) [facility]normal [facility]wayPHOSPHORUS2023-10-29 10:26:22* Test Item Value Reference Range Interpretation Comme nts PHOSPHORUS (test code = 8271731996) 6.4 mg/dL 2.5-5.0 H Lab Interpretation (test cod e = 84093-2) Abnormal [facility]UM2023-10-29 10:26:22* Test Item Value Reference Range Interpretation Comme nts MAGNESIUM (test code = 9888278650) 2.1 mg/dL 1.7-2.4 Lab Interpretation (test cod e = 44617-1) Normal [facility] METABOLIC PANEL (NA, K, CL, CO2, GLUCOSE, BUN, CREATININE, CA)2023-02-20 10:26:22* Test Item Value Reference Range Interpretation Comme nts NA (test code = 2244434697) 125 mmol/L 135-145 L K (test code = 1524707718) 4.4 mmol/L 3.5-5.0 CL (test code = 2853780016) 91 mmol/L 98-108 L CO2 TOTAL (test code = 2172347412) 15 mmol/L 23-31 L AGAP (test code = 8422958086) 19 2-16 H BUN (test code = 9649211851) 49 mg/dL 7-23 H GLUCOSE (test code = 7215145102) 154 mg/dL 70-110 H CREATININE (test code = 0802444947) 8.54 mg/dL 0.60-1.25 H CALCIUM (test code = 6565612050) 6.1 mg/dL 8.6-10.6 L eGFR (test code = 54922-4) 6.5 mL/min/1.73m2 BOBBY (test code = BOBBY) [...] imaging tests). Lab Interpretation (test code = 92845-3) [facility]normal [facility]wayProthrombin Time / [id number] 09:53:41* Test Item Value Reference Range Interpretation Comme nts PROTIME PATIENT (test code = 5964-2) 15.5 See_Comment H [Automated REPPa EnergyDe[employer]] The system which generated this result transmitted reference range: 10.1 - 12.6 Seconds. The reference range was not used to interpret this result as normal/abnormal. INR (test code = 6301-6) 1.4 Normal INR <1.1; Warfarin Therapeutic range 2.0 to 3.0 or 2.5 to 3.5, depending upon the indications. Lab Interpretation (test code = 07848-7) [facility]normal [facility]way[facility] (02426) (ALB,T.PRO,BILI T,BU/BC,ALT,AST,ALK PHOS)2023-02-20 06:50:43* Test Item Value Reference Range Interpretation Comme nts TOTAL BILI (test code = 1383135860) 2.3 mg/dL 0.1-1.1 H BILI UNCON (test code = 7391653671) 0.5 mg/dL 0.1-1.1 BILI CONJ (test code = 3719100324) 0.0 mg/dL 0.0-0.3 T PROTEIN (test code = 1351296901) 6.7 g/dL 6.3-8.2 ALBUMIN (test code = 5256753263) 3.0 g/dL 3.5-5.0 L ALK PHOS (test code = 2079442000) 324 U/L 34-122 H ALTv (test code = 1742-6) 98 U/L 5-50 H AST(SGOT) (test code = 8646865153) 384 U/L 13-40 H Lab Interpretation (test cod e = 80788-3) [facility]normal [facility]wayOSMOLALITY, SERUM OR [id number] 21:10:51 * Test Item Value Reference Range Interpretation Comme nts OSMOLALITY (test code = 2692-2) 278 See_Comment [Automated messa ge] The system which generated this result transmitted reference range: 278 - 305 mOsm/kg. The reference range was not used to interpret this result as normal/abnormal. Lab Interpretation (test code = 34393-4) Normal [facility]wayOSMOLALITY, SERUM OR [id number] 21:10:51 * Test Item Value Reference Range Interpretation Comme nts OSMOLALITY (test code = 2692-2) 278 See_Comment [Automated messa ge] The system which generated this result transmitted reference range: 278 - 305 mOsm/kg. The reference range was not used to interpret this result as normal/abnormal. Lab Interpretation (test code = 61510-7) Normal [facility]wayAMMONIA, [id number] 14:08:31* Test Item Value Reference Range Interpretation Comme nts AMMONIA (test code = 2209577149) 25 umol/L 9-33 Lab Interpretation (test cod e = 74567-4) Normal [facility]. METABOLIC PANEL (74624)2023-02-19 13:44:54* Test Item Value Reference Range Interpretation Comme nts NA (test code = 1396340491) 121 mmol/L 135-145 L K (test code = 4946581273) 4.7 mmol/L 3.5-5.0 CL (test code = 2605569328) 90 mmol/L 98-108 L CO2 TOTAL (test code = 2067182048) 13 mmol/L 23-31 L AGAP (test code = 3817976998) 18 2-16 H BUN (test code = 8032937318) 61 mg/dL 7-23 H GLUCOSE (test code = 7442838875) 92 mg/dL 70-110 CREATININE (test code = 5096337452) 10.78 mg/dL 0.60-1.25 H TOTAL BILI (test code = 9154920503) 2.6 mg/dL 0.1-1.1 H CALCIUM (test code = 0868913491) 5.9 mg/dL 8.6-10.6 LL T PROTEIN (test code = 5426276191) 6.6 g/dL 6.3-8.2 ALBUMIN (test code = 7911711186) 3.1 g/dL 3.5-5.0 L ALK PHOS (test code = 8909931765) 304 U/L 34-122 H ALTv (test code = 1742-6) 98 U/L 5-50 H AST(SGOT) (test code = 6971314610) 387 U/L 13-40 H eGFR (test code = 70173-0) 5.0 mL/min/1.73m2 BOBBY (test code = BOBBY) [...] imaging tests). Lab Interpretation (test code = 37203-3) [facility] 21 + LACTIC [id number] 05:32:17* Test Item Value Reference Range Interpretation Comme nts PH (test code = 4734952511) 7.23 7.32-7.42 L PCO2 JUAN LUIS (test code = 7915797308) 39 See_Comment L [Automated messa ge] The system which generated this result transmitted reference range: 41 - 51 mmHg. The reference range was not used to interpret this result as normal/abnormal. PO2 JUAN LUIS (test code = 3402535134) 39 See_Comment [Automated messa ge] The system which generated this result transmitted reference range: 25 - 40 mmHg. The reference range was not used to interpret this result as normal/abnormal. HCO3 JUAN LUIS (test code = 0946905914) 16 See_Comment L [Automated messa ge] The system which generated this result transmitted reference range: 24 - 28 mEq/L. The reference range was not used to interpret this result as normal/abnormal. AC VBE(BEAKER) (test code = 0539217558) -11.0 mEq/L THB JUAN LUIS (test code = 8809563629) 12.0 g/dL 13.5-18.0 L %O2HB JUAN LUIS (test code = 8283796998) 63.9 % 52.0-63.0 H %COHB JUAN LUIS (test code = 3734783985) 0.2 % 0.0-1.5 %METHB JUAN LUIS (test code = 1089890799) 0.0 % 0.4-1.5 L VOL%O2 JUAN LUIS (test code = 4775413479) 10.8 % 6.0-12.0 NA (test code = 9470891665) 121 mmol/L 135-145 L K+ (test code = 1305432000) 4.8 mmol/L 3.5-5.0 AC CA IONZ (test code = 5324024163) 3.40 mg/dL 4.50-5.30 L GLUCOSE (test code = 6219426750) 107 mg/dL 70-110 LACTIC ACID (test code = 7786067712) 1.52 mmol/L 0.50-2.20 Lab Interpretation (test code = 94237-2) [facility]normal [facility] 21 + LACTIC [id number] 05:32:17*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
--- NOTE | 2024-08-09 22:21 | EDPHYS ---
Physician Documentation [facility] Name: Beny Alvarez Age: 58 yrs Sex: Male : 1965 Arrival Date: 08/09/2024 Time: 21:50 Bed 6 Private MD: Dewayne Quintanilla HPI: 08/09 22:13 This 58 yrs old Male presents to ER via EMS with complaints of Syncope. sharon 22:13 The patient has experienced syncope, became unresponsive. Onset: The symptoms/episode sharon began/occurred just prior to arrival, today. Duration: The patient has had multiple episodes, that last 30 second(s). Context: the episode(s) was witnessed, by EMS personnel, by family, occurred at home. Associated injury: The patient did not suffer any apparent associated injury. Associated signs and symptoms: The patient has no apparent associated signs or symptoms. Current symptoms: Currently, the patient is not experiencing any symptoms, the patient feels back to baseline. The patient has experienced similar episodes in the past, multiple times. Historical: - Allergies: 22:02 NSAIDS; cp4 - Home Meds: 08/10 01:05 Aldactone Oral [Active]; Vitamin D Oral [Active]; Coreg Oral [Active]; Vitamin B-12 lg3 Oral [Active]; Flexeril Oral [Active]; Cymbalta oral [Active]; Jardiance oral [Active]; Folic Acid Oral [Active]; gabapentin oral [Active]; [place] 10-325 Oral [Active]; Lactulose Oral [Active]; Lasix Oral [Active]; Keppra Oral [Active]; Remeron Oral [Active]; Protonix Oral [Active]; Primidone Oral [Active]; rifaximin oral [Active]; Crestor oral [Active]; Thiamine Oral [Active]; Trazodone Oral [Active]; - PMHx: 08/09 22:02 acid reflux; CHF; cirrhosis of liver; heart disease; Hypertensive disorder; kidney cp4 disease; PTSD (Cholecystectomy); right eye double vision; tremors; - PSHx: 22:02 Appendectomy; Cholecystectomy; cp4 - Immunization history:: Adult Immunizations up to date. - Infectious Disease History:: Denies. - Social history:: Smoking status: Patient denies any tobacco usage or history of. - Family history:: not pertinent. ROS: 22:13 Constitutional: Negative for fever, chills, and weight loss, Eyes: Negative for injury, sharon pain, redness, and discharge, ENT: Negative for injury, pain, and discharge, Neck: Negative for injury, pain, and swelling, Cardiovascular: Negative for chest pain, palpitations, and edema, Respiratory: Negative for shortness of breath, cough, wheezing, and pleuritic chest pain, Abdomen/GI: Negative for abdominal pain, nausea, vomiting, diarrhea, and constipation, Back: Negative for injury and pain, : Negative for injury, bleeding, discharge, and swelling, MS/Extremity: Negative for injury and deformity, Skin: Negative for injury, rash, and discoloration, Psych: Negative for depression, anxiety, suicide ideation, homicidal ideation, and hallucinations, Allergy/Immunology: Negative for hives, rash, and allergies, Endocrine: Negative for neck swelling, polydipsia, polyuria, polyphagia, and marked weight changes, Hematologic/Lymphatic: Negative for swollen nodes, abnormal bleeding, and unusual bruising, 22:13 Neuro: Positive for dizziness, syncope, weakness, Exam: 22:13 Constitutional: This is a well developed, well nourished patient who is awake, alert, sharon and in no acute distress. Head/Face: Normocephalic, atraumatic. Eyes: Pupils equal round and reactive to light, extra-ocular motions intact. Lids and lashes normal. Conjunctiva and sclera are non-icteric and not injected. Cornea within normal limits. Periorbital areas with no swelling, redness, or edema. ENT: Nares patent. No nasal discharge, no septal abnormalities noted. Tympanic membranes are normal and external auditory canals are clear. Oropharynx with no redness, swelling, or masses, exudates, or evidence of obstruction, uvula midline. Mucous membranes moist. Neck: Trachea midline, no thyromegaly or masses palpated, and no cervical lymphadenopathy. Supple, full range of motion without nuchal rigidity, or vertebral point tenderness. No Meningismus. Chest/axilla: Normal chest wall appearance and motion. Nontender with no deformity. No lesions are appreciated. Cardiovascular: Regular rate and rhythm with a normal S1 and S2. No gallops, murmurs, or rubs. Normal PMI, no JVD. No pulse deficits. Respiratory: Lungs have equal breath sounds bilaterally, clear to auscultation and percussion. No rales, rhonchi or wheezes noted. No increased work of breathing, no retractions or nasal flaring. Abdomen/GI: Soft, non-tender, with normal bowel sounds. No distension or tympany. No guarding or rebound. No evidence of tenderness throughout. Back: No spinal tenderness. No costovertebral tenderness. Full range of motion. Male : Normal genitalia with no discharge or lesions. Skin: Warm, dry with normal turgor. Normal color with no rashes, no lesions, and no evidence of cellulitis. MS/ Extremity: Pulses equal, no cyanosis. Neurovascular intact. Full, normal range of motion., bilateral aka Neuro: Awake and alert, GCS 15, oriented to person, place, time, and situation. Cranial nerves II-XII grossly intact. Motor strength 5/5 in all extremities. Sensory grossly intact. Cerebellar exam normal. Normal gait. Psych: Awake, alert, with orientation to person, place and time. Behavior, mood, and affect are within normal limits. 22:13 ECG was reviewed by the Attending Physician. 08/10 00:49 ECG was reviewed by the Attending Physician. sharon Vital Signs: 08/09 21:59 BP 127 / 92; Pulse 82; Resp 16; Temp 98.4; Pulse Ox 100% ; Weight 90.72 kg; Height 5 cp4 ft. 10 in. ; Pain 7/10; 23:22 BP 112 / 80; Pulse 82; Resp 17 S; Pulse Ox 99% on 2 lpm NC; lg3 08/10 01:04 BP 124 / 92; Pulse 87; Resp 16; Pulse Ox 99% on R/A; lg3 02:12 BP 122 / 84; Pulse 84; Resp 16 S; Pulse Ox 99% on R/A; lg3 03:41 BP 131 / 83; Pulse 85; Resp 17 S; Pulse Ox 99% on R/A; lg3 06:43 BP 124 / 67; Pulse 86; Resp 16 S; Pulse Ox 97% on R/A; lg3 07:10 BP 145 / 96; Pulse 88; Resp 16 S; Pulse Ox 99% ; aa5 08:30 BP 132 / 85; Pulse 82; Resp 18 S; Pulse Ox 99% on R/A; aa5 08/09 21:59 Body Mass Index 28.70 (90.72 kg, 177.8 cm) cp4 08/09 21:59 Pain Scale: Adult cp4 [place] Coma Score: 08/09 22:05 Eye Response: spontaneous(4). Motor Response: obeys commands(6). Verbal Response: lg3 oriented(5). Total: 15. MDM: 22:05 Medical Screening Exam initiated sharon 22:16 Differential Diagnosis: aortic aneurysm, cardiac arrhythmia, cerebrovascular accident, sharon drug effect, emotional response, GI bleed, idiopathic syncope, pseudo seizure, seizure, sepsis, vasovagal episode. Data reviewed: vital signs, nurses notes, EMS record, lab test result(s), EKG, radiologic studies, CT scan, doppler, plain films. Consideration of Admission/Observation Patient was admitted/placed on observation. Escalation of care including admission/observation considered. I considered the following discharge prescriptions or medication management in the emergency department Medications were administered in the Emergency Department. See MAR. Independent interpretation of the following test(s) in the Emergency Department EKG: See my EKG interpretation above. Test considered but Not performed: Ultrasound NO 2 D ECHO. Historians other than the Patient: EMS: EMS WELL INFORMED. Spouse/Significant Other: WELL INFORMED. Care significantly affected by the following chronic conditions: Hypertension, Congestive Heart Failure, Chronic Obstructive Pulmonary Disease, Obesity, Chronic Kidney Disease, Liver Disease, PTSD. Counseling: I had a detailed discussion with the patient and/or guardian regarding the historical points, exam findings, and any diagnostic results supporting the discharge/admit diagnosis, lab results, radiology results, the need to transfer to another facility, for higher level of care, [facility] does not immediately have the required specialist. 08/09 22:12 Order name: Basic Metabolic Panel; Complete Time: 00:01 [facility] 08/09 22:12 Order name: CBC with Diff; Complete Time: 00: [facility] 08/09 22:12 Order name: LFT's; Complete Time: 00: [facility] 08/09 22:12 Order name: Magnesium; Complete Time: 00: [facility] 08/09 22:12 Order name: NT PRO-BNP; Complete Time: 00:01 [facility] 08/09 22:12 Order name: PT-INR; Complete Time: 00: [facility] 08/09 22:12 Order name: Troponin HS; Complete Time: 00:01 [facility] 08/09 22:12 Order name: Lipase; Complete Time: 00:01 [facility] 08/09 22:12 Order name: Urinalysis w/ reflexes; Complete Time: 06:13 [facility] 08/09 22:12 Order name: ETOH Level; Complete Time: 00:02 [facility] 08/09 22:12 Order name: Asprin; Complete Time: 00:02 [facility] 08/09 22:12 Order name: Tylenol Level; Complete Time: 00:01 [facility] 08/09 22:12 Order name: AMMONIA; Complete Time: 00:01 [facility] 08/09 22:45 Order name: CBC Smear Scan; Complete Time: 00:01 [facility] 08/09 22:12 Order name: XRAY Chest (1 view) [facility] 08/09 22:12 Order name: US Carotid Artery Bilateral [facility] 08/09 22:35 Order name: Head C Spine Mpr Wo Con [facility] 08/09 22:36 Order name: Chest Abd Pelvis Wo Con [facility] 08/09 22:12 Order name: EKG; Complete Time: 22:13 [facility] 08/09 22:12 Order name: Cardiac monitoring; Complete Time: 23:13 [facility] 08/09 22:12 Order name: EKG - Nurse/Tech; Complete Time: 23:13 [facility] 08/09 22:12 Order name: IV Saline Lock; Complete Time: 23:13 [facility] 08/09 22:12 Order name: Labs collected and sent; Complete Time: 23:13 [facility] 08/09 22:12 Order name: O2 Per Protocol; Complete Time: 23:13 [facility] 08/09 22:12 Order name: O2 Sat Monitoring; Complete Time: 23:13 [facility] 08/09 22:12 Order name: Seizure Precautions; Complete Time: 22:49 [facility] 08/10 06:18 Order name: PO challenge: JUICE; Complete Time: 06:31 [facility] EC/18 00:49 Rate is 83 beats/min. Rhythm is regular. QRS [place] is Normal. DC interval is normal. QRS sharon interval is normal. QT interval is normal. No Q waves. T waves are Normal. No ST changes noted. Clinical impression: NSR w/ Non-specific ST/T Changes and No evidence of ischemia. Interpreted by me. Reviewed by me. Administered Medications: 08/09 23:13 Drug: Thiamine IV 100 mg IV at per protocol once Route: IV; Rate: per protocol; Site: merged with [facility] left hand; 08/10 00:22 Follow up: Response: No adverse reaction; IV Status: Completed infusion; IV Intake: 1ml lg3 08/09 23:13 Drug: Banana Bag - (Multivitamin IV 1 amp, NS 0.9% IV 1000 ml, Thiamine IV 100 mg, lg3 foLIC Acid IVPB 1 mg) IV at 500 ml/hr once Route: IV; Rate: 500 ml/hr; Site: left hand; 08/10 02:14 Follow up: Response: No adverse reaction; IV Status: Completed infusion; IV Intake: lg3 1000ml 08/09 23:13 Drug: Famotidine IVP 20 mg IVP once; dilute with 10 mL 0.9% NaCl; give over 2 minutes lg3 Route: IVP; Site: left hand; 08/10 00:22 Follow up: Response: No adverse reaction lg3 08/09 23:13 Drug: Keppra IV 1000 mg IV at per protocol once Route: IV; Rate: per protocol; Site: merged with [facility] left hand; 08/10 00:22 Follow up: Response: No adverse reaction; IV Status: Completed infusion; IV Intake: lg3 100ml 00:21 Drug: Potassium PO Effervescent Tablet 25 mEq PO once; dissolve in 4 ounces of water or lg3 juice Route: PO; 00:22 Follow up: Response: No adverse reaction lg3 02:13 Drug: fentaNYL (PF) IVP 75 mcg IVP once Route: IVP; Site: left hand; lg3 03:41 Follow up: Response: No adverse reaction; Marked relief of symptoms; Pain is decreased lg3 Disposition Summary: 08/09/24 22:20 Transfer Ordered Notes: Transfer Location: [facility] sharon Reason: Higher level of care sharon Condition: Fair sharon Problem: new sharon Symptoms: have worsened sharon Accepting Physician: [facility](08[facility]10/24 09:15) aa5 Diagnosis - Syncope Near sharon - Weakness sharon - Fall on same level, unspecified sharon - Alcohol abuse sharon - Alcohol abuse with intoxication sharon - Hypokalemia sharon - Acute kidney failure, unspecified - ON CHRONIC sharon Forms: - Medication Reconciliation Form sharon - SBAR form sharon Signatures: Dispatcher [employer] Dewayne Levine MD MD cha Calderon, Audri RN RN aa5 Arcelia Porras RN RN lg3 Lucina Duffy cp4 Corrections: (The following items were deleted from the chart) 08/09 22:13 22:13 Carotid Artery Bilateral+US.RAD.BRZ ordered. EDMS EDMS 22:35 22:13 Head C Spine Cap Wo Con+CT.RAD.BRZ ordered. EDMS EDMS 08/10 00:06 08/09 22:20 TO [facility] sharon 08/10 00:17 00:[address] [facility] 09:15 00:17 TO [facility] aa5
--- NOTE | 2024-08-09 22:21 | ER ---
Nurse's Notes [facility] Name: Beny Alvarez Age: 58 yrs Sex: Male : 1965 Arrival Date: 08/09/2024 Time: 21:50 Bed 6 Private MD: Diagnosis: Syncope Near;Weakness;Fall on same level, unspecified;Alcohol abuse;Alcohol abuse with intoxication;Hypokalemia;Acute kidney failure, unspecified-ON CHRONIC Presentation: 08/09 21:59 Chief complaint: EMS states: syncopal episodes x 9 since 1700. Patient reports having cp4 several drinks tonight but that is normal for him. [facility] finding cause. Coronavirus screen: Client denies travel out of the [place] in the last 14 days. At this time, the client does not indicate any symptoms associated with coronavirus-19. Ebola Screen: Patient negative for fever greater than or equal to 101.5 degrees Fahrenheit, and additional compatible Ebola Virus Disease symptoms Patient denies exposure to infectious person. Patient denies travel to an Ebola-affected area in the 21 days before illness onset. No symptoms or risks identified at this time. Initial Sepsis Screen: Does the patient meet any 2 criteria? No. Patient's initial sepsis screen is negative. Does the patient have a suspected source of infection? No. Patient's initial sepsis screen is negative. Risk Assessment: Do you want to hurt yourself or someone else? Patient reports no desire to harm self or others. Onset of symptoms was August 09, 2024 at 17:00. 21:59 Method Of Arrival: EMS: [facility] cp4 21:59 Acuity: KALEY 3 cp4 Triage Assessment: 22:02 General: Appears in no apparent distress. comfortable, Behavior is calm, cooperative, cp4 appropriate for age. Pain: Complains of pain in right leg and left leg. Neuro: Reports headache frontal area. Historical: - Allergies: 22:02 NSAIDS; cp4 - Home Meds: 08/10 01:05 Aldactone Oral [Active]; Vitamin D Oral [Active]; Coreg Oral [Active]; Vitamin B-12 lg3 Oral [Active]; Flexeril Oral [Active]; Cymbalta oral [Active]; Jardiance oral [Active]; Folic Acid Oral [Active]; gabapentin oral [Active]; [place] 10-325 Oral [Active]; Lactulose Oral [Active]; Lasix Oral [Active]; Keppra Oral [Active]; Remeron Oral [Active]; Protonix Oral [Active]; Primidone Oral [Active]; rifaximin oral [Active]; Crestor oral [Active]; Thiamine Oral [Active]; Trazodone Oral [Active]; - PMHx: 08/09 22:02 acid reflux; CHF; cirrhosis of liver; heart disease; Hypertensive disorder; kidney cp4 disease; PTSD (Cholecystectomy); right eye double vision; tremors; - PSHx: 22:02 Appendectomy; Cholecystectomy; cp4 - Immunization history:: Adult Immunizations up to date. - Infectious Disease History:: Denies. - Social history:: Smoking status: Patient denies any tobacco usage or history of. - Family history:: not pertinent. Screenin:15 [facility] ED Fall Risk Assessment (Adult) History of falling in the last 3 months, cp4 including since admission Yes- fall prone (multiple falls) (3 pts) Confusion or Disorientation Yes (5 pts) Intoxicated or Sedated No (0 pts) Impaired Gait No (0 pts) Mobility Assist Device Used No (0 pt) Altered Elimination No (0 pt) Score/Fall Risk Level 3 or more points = High Risk Oriented to surroundings, Maintained a safe environment, Assessed \T\ reinforced patient's understanding of fall precautions, Hourly rounding (assess needs \T\ fall precautionary measures) done, Apply high fall risk patient identification: yellow non skid footwear/ fall signage. Abuse screen: Denies threats or abuse. Denies injuries from another. Nutritional screening: No deficits noted. Tuberculosis screening: No symptoms or risk factors identified. Assessment: 22:05 General: Appears in no apparent distress. comfortable, Behavior is calm, cooperative. lg3 Pain: Complains of pain in forehead Pain does not radiate. Pain currently is 4 out of 10 on a pain scale. Quality of pain is described as pressure. Neuro: No deficits noted. Georges Agitation-Sedation Scale (RASS): 0 - Alert and Calm Level of Consciousness is awake, alert, obeys commands, Oriented to person, place, time, situation. Cardiovascular: No deficits noted. Denies chest pain, shortness of breath, Heart tones S1 S2 present Capillary refill is sluggish JVD is absent Patient's skin is warm and dry. Rhythm is sinus rhythm. Respiratory: No deficits noted. Airway is patent Respiratory effort is even, unlabored, Respiratory pattern is regular, symmetrical, Breath sounds are clear bilaterally. GI: No deficits noted. No signs and/or symptoms were reported involving the gastrointestinal system. : No signs and/or symptoms were reported regarding the genitourinary system. EENT: No deficits noted. No signs and/or symptoms were reported regarding the EENT system. Derm: No deficits noted. No signs and/or symptoms reported regarding the dermatologic system. Skin is intact, is healthy with good turgor, Skin is dry, Skin is normal. Musculoskeletal: No deficits noted. Circulation, motion, and sensation intact. Range of motion: intact in all extremities, Reports pain in right leg and left leg. 22:07 General: pt appears to be having a syncopal episode. provider at bedside. episode lg3 lasted approximately 2 min. 22:10 Neuro: No deficits noted. Georges Agitation-Sedation Scale (RASS): 0 - Alert and Calm lg3 Level of Consciousness is awake, alert, obeys commands, Oriented to person, place, time, situation. 22:26 General: pt appears to be having a syncopal episode. provider notified. episode lasted lg3 approximately 2 min. 22:30 Neuro: No deficits noted. Georges Agitation-Sedation Scale (RASS): 0 - Alert and Calm lg3 Level of Consciousness is awake, alert, obeys commands, Oriented to person, place, time, situation. 08/10 01:04 Reassessment: Patient appears in no apparent distress at this time. No changes from lg3 previously documented assessment. Patient and/or family updated on plan of care and expected duration. Pain level reassessed. Patient is alert, oriented x 3, equal unlabored respirations, skin warm/dry/pink. Patient states feeling better. 02:13 Pain: Complains of pain in back and left leg and right leg. lg3 06:42 Reassessment: Patient appears in no apparent distress at this time. Patient and/or lg3 family updated on plan of care and expected duration. Pain level reassessed. Patient is alert, oriented x 3, equal unlabored respirations, skin warm/dry/pink. Patient states feeling better. Patient states symptoms have improved. 07:10 Reassessment: Patient is alert, oriented x 3, equal unlabored respirations, skin aa5 warm/dry/pink. Awaiting EMS for transfer, pt aware of wait time. . 08:00 Reassessment: Patient is alert, oriented x 3, equal unlabored respirations, skin aa5 warm/dry/pink. 09:12 Reassessment: Patient is alert, oriented x 3, equal unlabored respirations, skin aa5 warm/dry/pink. Vital Signs: 08/09 21:59 BP 127 / 92; Pulse 82; Resp 16; Temp 98.4; Pulse Ox 100% ; Weight 90.72 kg; Height 5 cp4 ft. 10 in. ; Pain 7/10; 23:22 BP 112 / 80; Pulse 82; Resp 17 S; Pulse Ox 99% on 2 lpm NC; lg3 08/10 01:04 BP 124 / 92; Pulse 87; Resp 16; Pulse Ox 99% on R/A; lg3 02:12 BP 122 / 84; Pulse 84; Resp 16 S; Pulse Ox 99% on R/A; lg3 03:41 BP 131 / 83; Pulse 85; Resp 17 S; Pulse Ox 99% on R/A; lg3 06:43 BP 124 / 67; Pulse 86; Resp 16 S; Pulse Ox 97% on R/A; lg3 07:10 BP 145 / 96; Pulse 88; Resp 16 S; Pulse Ox 99% ; aa5 08:30 BP 132 / 85; Pulse 82; Resp 18 S; Pulse Ox 99% on R/A; aa5 08/09 21:59 Body Mass Index 28.70 (90.72 kg, 177.8 cm) cp4 08/09 21:59 Pain Scale: Adult cp4 [place] Coma Score: 08/09 22:05 Eye Response: spontaneous(4). Motor Response: obeys commands(6). Verbal Response: lg3 oriented(5). Total: 15. ED Course: 21:59 Patient arrived in ED. cp4 22:01 Triage completed. cp4 22:02 Arm band placed on right wrist. Patient placed in an exam room, on a stretcher. cp4 22:04 Dewayne Higgins MD is Attending Physician. [facility] 22:05 Client placed on continuous cardiac and pulse oximetry monitoring. NIBP monitoring lg3 applied. media monitor on. Door closed. Noise minimized. Warm blanket given. Pillow given. 22:05 Initial lab(s) drawn, by me, sent to lab. Oxygen administration via nasal cannula \T\ lg3 2L/min. 22:15 Bed in low position. Call light in reach. Side rails up X2. Adult w/ patient. cp4 22:15 Maintain EMS IV. Dressing intact. Good blood return noted. Site clean \T\ dry. Gauge \T\ cp 4 site: 20G L Hand. Flushed with 10 mL NS. 22:48 Head C Spine Mpr Wo Con In Process Unspecified. EDMS 22:48 Chest Abd Pelvis Wo Con In Process Unspecified. EDMS 23:05 US Carotid Artery Bilateral In Process Unspecified. EDMS 23:21 Arcelia Porras, RN is Primary Nurse. lg3 23:38 Inserted saline lock: 22 gauge in right forearm, using aseptic technique. Blood oe collected. Flushed with 10 mL NS. 23:38 EKG done, by ED staff, reviewed by Dewayne Higgins MD. oe 08/10 00:01 XRAY Chest (1 view) In Process Unspecified. EDMS 00:13 [place]. rv1 02:59 Urinalysis w/ reflexes Sent. oe 07:44 Pt accepted as a transfer to [facility]; Doc to Doc and Nurse to Nurse em1 report conducted; transportation arranged through [facility] with an ETA to our location at approximately 0900. 09:12 Patient transferred, IV remains in place. aa5 09:12 No provider procedures requiring assistance completed. aa5 Administered Medications: 08/09 23:13 Drug: Thiamine IV 100 mg IV at per protocol once Route: IV; Rate: per protocol; Site: 3 left hand; 08/10 00:22 Follow up: Response: No adverse reaction; IV Status: Completed infusion; IV Intake: 1ml lg3 08/09 23:13 Drug: Banana Bag - (Multivitamin IV 1 amp, NS 0.9% IV 1000 ml, Thiamine IV 100 mg, lg3 foLIC Acid IVPB 1 mg) IV at 500 ml/hr once Route: IV; Rate: 500 ml/hr; Site: left hand; 08/10 02:14 Follow up: Response: No adverse reaction; IV Status: Completed infusion; IV Intake: lg3 1000ml 08/09 23:13 Drug: Famotidine IVP 20 mg IVP once; dilute with 10 mL 0.9% NaCl; give over 2 minutes lg3 Route: IVP; Site: left hand; 08/10 00:22 Follow up: Response: No adverse reaction lg3 08/09 23:13 Drug: Keppra IV 1000 mg IV at per protocol once Route: IV; Rate: per protocol; Site: lg3 left hand; 08/10 00:22 Follow up: Response: No adverse reaction; IV Status: Completed infusion; IV Intake: lg3 100ml 00:21 Drug: Potassium PO Effervescent Tablet 25 mEq PO once; dissolve in 4 ounces of water or lg3 juice Route: PO; 00:22 Follow up: Response: No adverse reaction lg3 02:13 Drug: fentaNYL (PF) IVP 75 mcg IVP once Route: IVP; Site: left hand; lg3 03:41 Follow up: Response: No adverse reaction; Marked relief of symptoms; Pain is decreased lg3 Medication: 08/09 22:15 VIS not applicable for this client. cp4 Intake: 08/10 00:22 IV: 1ml; Total: 1ml. lg3 00:22 IV: 100ml; Total: 101ml. lg3 02:14 IV: 1000ml; Total: 1101ml. lg3 Outcome: 08/09 22:20 ER care complete, transfer ordered by . sharon 08/10 09:12 Transferred to [facility] Transfer form completed. X-rays sent aa5 w/ patient. Note: Report given to [facility] Condition: stable Instructed on the need for transfer, Demonstrated understanding of instructions, 09:15 Patient left the ED. aa5 Signatures: Dispatcher [employer] EDMS Dewayne Higgins MD MD cha Martinez, Eric em1 sIa Kinsey RN RN aa5 Scott Clarke Lacie, RN RN lg3 Portia Rodriges rv1 Lucina Duffy cp4 Corrections: (The following items were deleted from the chart) 08/09 22:33 22:15 General: Appears in no apparent distress. comfortable, Behavior is calm, lg3 cooperative, appropriate for age, cp4 22:33 22:15 Pain: Complains of pain in left leg and right leg Pain does not radiate. Pain lg3 currently is 7 out of 10 on a pain scale. cp4 22:33 22:15 Neuro: Level of Consciousness is awake, alert, obeys commands, Oriented to lg3 person, place, time, situation, cp4 22:33 22:15 Cardiovascular: Rhythm is regular cp4 lg3 22:33 22:15 Respiratory: Airway is patent Respiratory effort is even, unlabored, cp4 lg3 22:33 22:15 GI: No signs and/or symptoms were reported involving the gastrointestinal system. lg3 cp4 22:33 22:15 : No signs and/or symptoms were reported regarding the genitourinary system. cp4lg3 22:33 22:15 EENT: No signs and/or symptoms were reported regarding the EENT system. cp4 lg3 22:33 22:15 Derm: No signs and/or symptoms reported regarding the dermatologic system. cp4 lg3 22:33 22:15 Musculoskeletal: No signs and/or symptoms reported regarding the musculoskeletal lg3 system. cp4
[2024-08-09 22:39] LABS: Absolute Basophils 0.1 K/uL (0-0.5); Absolute Eosinophils 0.3 K/uL (0-0.5); Absolute Lymphocytes (CBC) 1.6 K/uL (0.7-4.9); Absolute Monocytes 0.7 K/uL (0.1-1.3); Absolute Neutrophil 3.9 K/uL (1.8-8.0); Basophils % 1.1 % (0-1.3); Eosinophils % 5.2 % (0-4.4); Hematocrit 36.4 % (39.6-49.0); Hemoglobin 12.5 g/dL (13.6-17.9); Lymphocytes % 24.2 % (15.3-44.8); MCH 33.2 pg (27.0-35.0); MCHC 34.4 g/dL (32.0-36.0); MCV 96.4 fL (80-100); MPV 7.7 fL (7.6-11.3); Monocytes % 11.2 % (3.3-12.3); Neutrophils % 58.3 % (41.7-73.7); Nucleated Red Blood Cells % 0.1 % (0-0); Platelets 64 thou/uL (152-406); RBC Red Blood Cell Count 3.78 M/uL (4.33-5.43); Red Cell Distribution Width 15.8 % (12.1-15.2)
[2024-08-09 22:45] LABS: PT Prothrombin Time 13.6 SECONDS (10-13.0); Protime INR 1.2
[2024-08-09 22:52] LABS: ALT/SGPT 51 U/L (16-61); AST/SGOT 158 U/L (15-37); Albumin/Globulin Ratio 0.7 (1.1-1.8); Alkaline Phosphatase 258 U/L (45-117); Anion Gap 9.3 mEq/L (5.0-15.0); BUN Blood Urea Nitrogen 16 mg/dL (7-18); Bicarbonate 29 mEq/L (21-32); Bilirubin Direct 0.6 mg/dL (0-0.2); Bilirubin Indirect, Calculated 0.4 mg/dL (0.2-0.8); Globulin 4.4 g/dL (2.3-3.5); Glomerular Filtration Rate 18 ml/min (=/>90); Glucose Level 100 mg/dL (74-106); Lipase 73 U/L (13-75); Magnesium 1.8 mg/dL (1.6-2.4); NT PRO-BNP 127 pg/mL (<125); Potassium 3.3 mEq/L (3.5-5.1); Protein, Total 7.4 g/dL (6.4-8.2); Sodium Level 137 mEq/L (136-145)
[2024-08-09] MEDS ORDERED: THIAMINE 200 MG/2 ML INJ ONE (22:55)
[2024-08-09] MEDS ORDERED: LEVETIRACETAM 500 MG/5 ML VIAL IV ONE (22:55)
[2024-08-09] MEDS ORDERED: FAMOTIDINE 20 MG/2 ML VIAL IV ONE (22:55)
[2024-08-09] MEDS ORDERED: MULTIVITAMINS 10 ML VIAL (INJ) IV ONE (22:55)
[2024-08-09] MEDS ORDERED: FOLIC ACID 5 MG/ML VIAL ONE (22:55)
[2024-08-09] MEDS ORDERED: NA CHLORIDE 0.9% 1,000 ML ONE (22:56)
[2024-08-09] MEDS ORDERED: NA CHLORIDE 0.9% 100 ML ONE (22:56)
[2024-08-09 23:22] LABS: Blood Morphology Comment NOT SEEN (NOT SEEN); Platelet Estimate DECR; White Blood Cell Scan OK (OK)
[2024-08-10] MEDS ORDERED: POTASSIUM 25 MEQ EFFERV TAB ONE (00:11)
--- NOTE | 2024-08-10 00:19 | RAD REPORT ---
EXAM: CT Head and Cervical Spine Without Intravenous Contrast CLINICAL HISTORY: The patient is 58 years old and is Male; Trauma;Syncope TECHNIQUE: Axial computed tomography images of the head/brain and cervical spine without intravenous contrast. Sagittal and coronal reformatted images were created and reviewed. This CT exam was performed using one or more of the following dose reduction techniques: automated exposure control, adjustmen t of the mA and/or kV according to patient size, and/or use of iterative reconstruction technique. COMPARISON: CT May 22, 2024 FINDINGS: BRAIN: Unremarkable. No hemorrhage. No significant white matter disease. No edema. VENTRICLES: Unremarkable. No ventriculomegaly. SKULL: No acute fracture. SINUSES: Unremarkable as visualized. No acute sinusitis. MASTOID AIR CELLS: Unremarkable as visualized. No mastoid effusion. VERTEBRAE: Straightening of the normal cervical curvature is present. The vertebral body height s and alignment are maintained. There is no acute fracture. DISCS/SPINAL CANAL/NEURAL FORAMINA: Minimal intervertebral disc space narrowing at C4-C5 and C5-C 6 with anterior osteophyte formation is present. Remaining intervertebral disc spaces are maintained. There is no significant canal stenosis. SOFT TISSUES: The soft tissues are normal. LUNG APICES: The lung apices are clear. IMPRESSION: 1. No acute intracranial findings. 2. Straightening of the normal cervical curvature is present. Findings may be secondary to patien t position versus muscle spasm. Electronically signed by: Beatrice Randolph MD 08/10/2024 12:16 AM CDT Due to temporary technical issues with the PACS/[employer] reporting system, reports are being yu d by the in-house radiologist without review as a courtesy to ensure prompt reporting the interpreting radiologist is fully responsible for the content of the report. Transcribed Date/Time: 08/10/2024 12:19 AM
--- NOTE | 2024-08-10 00:32 | RAD REPORT ---
No formal EXAM DESCRIPTION: Carotid Artery Bilateral CLINICAL HISTORY: SYNCOPE TECHNIQUE: Real time images, spectral wave analysis, Doppler color flow analysis and measurement of the arterial velocities of the bilateral common carotid, internal carotid, external carotid and vertebral arteries was performed. COMPARISON: None available for comparison FINDINGS: The peak systolic velocity in cm/sec on the right side is as follows: CCA: 56 ICA: 78.2 External Carotid Artery: 80 Vertebral Artery: 33, antegrade flow. Right ICA/CCA Ratio: 1.4 The peak systolic velocity in the cm/sec on the left side is as follows: CCA: 67 ICA: 68 External Carotid Artery: 76 Vertebral Artery: 40, antegrade flow. Left ICA/CCA Ratio: 1 IMPRESSION: There is no evidence of hemodynamically significant stenosis or occlusion in the bilateral common car otid and the bilateral internal carotid arteries. Antegrade flow is seen in the vertebral arteries. Electronically signed by: Murray Prado MD 08/10/2024 12:12 AM CDT RP Due to temporary technical issues with the PACS/[employer] reporting system, reports are being yu d by the in-house radiologist without review as a courtesy to ensure prompt reporting the interpreting radiologist is fully responsible for the content of the report. Transcribed Date/Time: 08/10/2024 12:32 AM
--- NOTE | 2024-08-10 00:40 | RAD REPORT ---
Clinical Indication: ; TRAUMA Comparison: June 20, 2024 TECHNIQUE: Sequential trans-axial images were obtained through the chest, abdomen and pelvis without iodinated contrast or oral contrast. Coronal and sagittal reconstructions were obtained and provided as separate series. All CT scans at this location are performed using dose optimization techniques as appropriate to perf orm the study. Radiation dose reduction technique was utilized including one or more of the following: Automated exp osure control, adjustment of the mA and/or kV according to patient size and use of iterative reconstruction technique. CT Radiation Dose DLP 2750.6 mGy-cm FINDINGS: CT CHEST: LUNG PARENCHYMA AND PLEURA: No pulmonary opacities are noted. . There are no lung nodules. There is n o significant interstitial lung disease. There are no pleural effusions. There is no pneumothorax. AIRWAY: The central airway is patent. MEDIASTINUM: No mediastinal lymphadenopathy is noted. HEART: The heart is normal in size.. There is trace pericardial effusion. VASCULAR STRUCTURES: The pulmonary arteries and great vessels are normal in caliber. The thoracic a rigoberto is normal in caliber. The superior vena cava is unremarkable. OSSEOUS STRUCTURES: There are no acute osseous abnormalities seen. Right posterolateral rib fixation devices are noted. Deformities of the right ribs is consistent with old healed fractures. No acute fractures are noted. ESOPHAGUS: No gross abnormalities. CT ABDOMEN/PELVIS: NON-CONTRAST ENHANCED SOLID ORGANS: LIVER: The liver is diffusely enlarged with nodular surface. Multiple hypodense nodular areas are not ed throughout the liver with some isodense intervening parenchyma. These findings are most concerning for diffuse metastatic disease or primary multifocal liver neoplasm. GALLBLADDER: The patient is status post cholecystectomy. INTRAHEPATIC BILE DUCT AND EXTRAHEPATIC BILE DUCT: Unremarkable. PANCREAS: Unremarkable. SPLEEN: The spleen is borderline enlarged measuring 12.3 cm in maximum dimension. ADRENALS: Unremarkable. KIDNEYS: The renal contours are normal. There is no hydronephrosis. No calcified renal stones a re noted. No surrounding fat stranding is noted. STOMACH: Evaluation of the stomach and bowel is limited due to lack of oral contrast. No gross abno rmalities of the stomach are noted. BOWEL: The non-contrast opacified small bowel loops in the abdomen and pelvis appear unremarkable. Ci rcumferential thickening of the ascending colon at the splenic flexure is noted. This can be seen on image 125 of series 401. Underlying colonic neoplasm cannot be completely excluded. The remaining colon is decompressed. APPENDIX: Not well seen on the exam. PERITONEUM AND RETROPERITONEUM: Small amount of fat stranding and fluid is noted in the right upper q uadrant along the paracolic gutter. This can be seen on image 127 of series 401. No definite solid organ injury is seen, however evaluation is limited due to lack of IV contrast. In the setting of tra juju a liver laceration or mesenteric injury cannot be completely excluded. No loculated fluid collection noted. The abdominal aorta is normal in caliber. LYMPH NODES: Unremarkable. PELVIS: No pelvic mass or adenopathy. . The prostate is unremarkable. BLADDER: Unremarkable. OSSEOUS STRUCTURES: No acute abnormality seen. SOFT TISSUES: Unremarkable. IMPRESSION: 1. 1. No acute trauma-related abnormality of the thorax is noted. 2. Fat stranding and small amount of fluid noted in the right upper quadrant along the paracolic gutt er and inferior liver. In the setting of trauma, liver laceration or mesenteric injury cannot be completely excluded. 3. Diffusely enlarged liver with nodular surface and multiple hypodense lesions. Findings could be co nsistent with metastatic disease or multifocal liver neoplasm. 4. Circumferential thickening of the distal ascending colon. Underlying colonic neoplasm cannot be co mpletely excluded. Electronically signed by: Terence Munoz MD 08/10/2024 12:36 AM CDT RP Due to temporary technical issues with the PACS/[employer] reporting system, reports are being yu d by the in-house radiologist without review as a courtesy to ensure prompt reporting the interpreting radiologist is fully responsible for the content of the report. Transcribed Date/Time: 08/10/2024 12:40 AM
[2024-08-10] MEDS ORDERED: FENTANYL CITR 100 MCG/2 ML ONE (01:56)
[2024-08-10 04:42] LABS: Specific Gravity 1.007 (1.005-1.030); Sqamous Epithelial <5 /HPF (None Seen); Urine Bacteria None Seen /HPF (<20); Urine Bilirubin NEGATIVE (Negative); Urine Blood Trace (Negative); Urine Clarity Clear (Clear); Urine Color Light-Yellow (Yellow); Urine Culture Reflex Order NOT NEEDED; Urine Glucose NEGATIVE (Negative); Urine Ketones NEGATIVE (Negative); Urine Microscopic Reflex YN ORDER UMIC; Urine Nitrite NEGATIVE (Negative); Urine Protein 1+ (Negative); Urine RBC <5 /HPF (None Seen); Urine Urobilinogen Normal (Normal); Urine WBC <5 /HPF (<5)
--- NOTE | 2024-08-10 05:33 | RAD REPORT ---
EXAM: XR Chest, 1 View CLINICAL HISTORY: The patient is 58 years old and is Male; COUGH TECHNIQUE: Frontal view of the chest. COMPARISON: No relevant prior studies available. FINDINGS: Lungs: Unremarkable. No consolidation. Pleural space: Unremarkable. No pneumothorax. Heart: Unremarkable. Mediastinum: Unremarkable. Normal mediastinal contour. Bones/joints: Postsurgical changes in the right ribs. IMPRESSION: No acute findings in the chest. Electronically signed by: Kevin Alarcon MD 08/10/2024 12:56 AM CDT 8 Due to temporary technical issues with the PACS/[employer] reporting system, reports are being yu d by the in-house radiologist without review as a courtesy to ensure prompt reporting the interpreting radiologist is fully responsible for the content of the report. Transcribed Date/Time: 08/10/2024 5:33 AM
[2024-08-10 09:25] VITALS: TEMP 98.4
[2024-08-10 09:45] VITALS: BP 145/96; O2SAT 99
== END 2024-08-10 09:15 ==
LOC: ER 21:50
DX: R55 Syncope and collapse (principal); R53.1 Weakness; F10.129 Alcohol abuse with intoxication, unspecified; E87.6 Hypokalemia; I13.0 Hypertensive heart and chronic kidney disease with heart failure and stage 1 through stage 4 chronic kidney disease, or unspecified chronic kidney disease; N18.9 Chronic kidney disease, unspecified; I50.9 Heart failure, unspecified; N17.9 Acute kidney failure, unspecified
CPT/HCPCS: 93005; 85025; 81001; 80048; 36415; 82140; 83735; 85610; 80076; 84484; 83690; 83880; 70450; 71250; 72125; 74176; 71045; 93880; 80143; 80179; 82077; J3411; J1953; J3010; J7030; 96365; 96366; 96367; 96368; 96375; 99285

== ENCOUNTER 2024-09-06 22:59 | Emergency (ER) | payer OTHER ==
--- OUTSIDE RECORDS SUMMARY | 2024-09-06 23:10 | XMS REPORT | Continuity of Care Document ---
Author Name Unknown Address [address] [place] [address] [facility] Address 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 Name Role Phone Pcp, Pcp Primary Care Physician Unavailab PANDA Choi Attending Clinician Unavailable PANDA FIELD Attending Clinician Unavailable Doctor Unassigned, [place] Attending Clinician U saleem Guajardo MD, Lizette Anderson Attending Clinician [phone] Ben MURRAY, Nikita Bui Attending Clinician [phone] Jesús Duval MD Attending Clinician [phone] Alejandro Yun MD Attending Clinician [phone] Ramu Shearer MD Attending Clinician [phone] Betty Parker MD Attending Clinician [phone] BETTY PARKER Attending Clinician Unavailable ANDREW MONTANEZ Attending Clinician Unavailable ANDREW MONTANEZ Attending Clinician Unavailable BRENDEN HICKEY Attending Clinician UnavailBRENDEN Paul Attending Clinician UnavailDavon Pearce MD Attending Clinician [phone] DAVON GARCIA Attending Clinician Unavailable Doctor Unassigned, [place] Attending Clinician U saleem Joy RN, Cielo Elder Attending Clinician Unavail able ARPIT RUST Attending Clinician Unavailab Zion Montoya DO Attending Clinician [phone] Tony Abraham MD Attending Clinician + [phone] Alan Ballard DO Attending Clinician [phone] Johnny MURRAY, Lisa Liu Attending Clinician [phone] Arpit Rust MD Attending Clinician [phone] Tj MURRAY, Ute Attending Clinician [phone] Zeynep Orozco MD Attending Clinician [phone] RADIOLOGY Attending Clinician Unavailable Radiology Attending Clinician Unavailable ABBI ALICIA Attending Clinician Unavailable PANDA FIELD Admitting Clinician Unavailable Betty Parker MD Admitting Clinician [phone] BETTY PARKER Admitting Clinician Unavailable ANDREW MONTANEZ Admitting Clinician Unavailable ALAN BALLARD Admitting Clinician Unavailable Alan Ballard DO Admitting Clinician [phone] JANELL ORTEGA Admitting Clinician Unavailable Payers Payer Name Policy Type Policy Number Effective Date Expirati on Date Source [facility] [id number] 2022 00:00:00 [facility] [id number] 2010 00:00:00 [facility] [id number] 2010 00:00:00 Problems Condition Name Condition Details Condition Category Status Onset Date Resolution Date Last Treatment Date Treating Clinician Comments Source Alcoholic cirrhosis ([facility]) Alcoholic cirrhosis ([facility]) Disease Active 05-31 00:00: 00 Shama Salazar [...] d type Disease Active 07-12 00:00: 00 [facility] Other forms of dyspnea Other forms of dyspnea Disease Active 07-12 00:00: 00 [facility] Chest pain, unspecifie d type Chest pain, unspecifie d type Disease Active 07-12 00:00: 00 [facility] Hypotensio n Hypotensio n Disease Active 2022-04 00:00: 00 [facility] Alcoholic cirrhosis of liver with ascites Alcoholic cirrhosis of liver with ascites Disease Recurre nce 2022-04 00:00: 00 [facility] Allergies, Adverse Reactions, Alerts Allergy Name Allergy Type Status Severity Reaction(s) Onset Date Inactive Date Treating Clinician Comments Source Nsaids Propensi ty to adverse reaction s Active 05-23 00:00: 00 Shama Salazar NSAIDS (NON-GERMÁN ROIDAL ANTI-INF LAMMATOR Y DRUG) Drug Class Active Unknown-Cmnt 2022-04 00:00: 00 [facility] Nsaids (Non-Germán roidal Anti-Inf lammator y Drug) Propensi ty to adverse reaction s Active Unknown - See comments 2022-04 00:00: 00 [facility] Nsaids (Non-Germán roidal Anti-Inf lammator y Drug) Propensi ty to adverse reaction s Active Unknown - See comments 2022-04 00:00: 00 [facility] NO KNOWN ALLERGIE S Drug Class Active [facility] Family History Family Member Diagnosis Comments Start Date Stop Date Sourc e Natural father [facility] Social History Social Habit Start Date Stop Date Quantity Comments Source Gender identity 2023-07-16 21:00:37 Identifies as male gender (finding) [facility] History of tobacco use Smokes tobacco daily [facility] Sexual orientation M jeff [facility] History of Social function 2024-05-24 00:00:00 2024-05-24 00:00:00 [facility] Alcohol intake 2023-07-13 00:00:00 2023-07-13 00:00:00 1 /d [facility] Alcoholic beverage intake 2023-07-13 00:00:00 2023-07-13 00:00:00 1 /d [facility] Tobacco use and exposure 2023-03-03 00:00:00 2023-03-03 00:00:00 Smokeless tobacco non-user [facility] Sex assigned at 1965 00:00:00 1965 00:00:00 [facility] Smoking Status Start Date Stop Date Source Tobacco smoking consumption unknown [facility] Smokes tobacco daily Shama Salazar Ex-smoker 2023-03-03 00:00:00 2023-03-03 00:00:00 [facility] Medications Ordered Medication Name Filled Medication Name [...] 05-31 00:00: 00 06-05 23:59 :00 No [id number] 1{tbl} Q6H Take 1 tablet by mouth [...] Tears Night-Time ointment 05-29 20:28: 07 Yes [id number] 3D Both Eyes, 3 times daily PRN, [...] days Shama Yu [facility] HYDROcodone -acetaminop hen ([place]born) 5-325 MG per tablet 1 tablet HYDROcodone -acetaminop hen (Dearborn) 5-325 MG per tablet 1 tablet 05-25 [...] orally or via feeding tube >/= 14 [place], may dissolve each 20 mEq tablet in 4 oz of water. Allow about 2 minutes for the tablets to disintegra te. Stir before giving to prepare slurry and administer . Please exclude patient's with feeding tube less than 14 [place] (Dobhoff, J-tube, etc) and pediatric and patients Do not crush or chew. Shama Salazar primidone (Mysoline) tablet 50 mg primidone (Mysoline) tablet 50 mg 05-23 21:00: 00 Yes 50mg 50 mg, Oral, Nightly, First dose on Tue05/23/24 at 2100 Shaam Salazar mirtazapine (Remeron) tablet 30 mg mirtazapine [...] 100 mg 05-23 17:45: 00 Yes 100mg [id number] 3D 100 mg, Oral, 3 times daily, [...] 20 mEq 05-23 17:00: 00 Yes 20meq [id number] 3D 20 mEq, Oral, 3 times daily, First dose on Tue05/23/24 at 1700, Best given with food and plenty of water to minimize gastric irritation . Do not crush or chew., On hold since Tue05/27/2024 at 0857 until manually unheld Shama Yu [facility] carvedilol (Coreg) tablet 6.25 mg carvedilol (Coreg) tablet 6.25 mg 05-23 17:00: 00 Yes 6.25mg 6.25 mg, Oral, 2 times daily with meals, First dose on Tue05/23/24 at 1700 Shama Yu [facility] rosuvastati n (Crestor) tablet 40 mg rosuvastati n (Crestor) tablet 40 mg 05-23 17:00: 00 Yes 40mg QD 40 mg, Oral, Daily, First dose on Tue05/23/24 [facility] [address] [facility] methocarbam ol (Robaxin) tablet 750 mg methocarbam ol (Robaxin) tablet 750 mg 05-23 17:00: 00 Yes 750mg Q.5D 750 mg, Oral, 2 times daily, First dose on Tue05/23/24 at [address] [address] traMADol (Ultram) tablet 50 mg traMADol (Ultram) tablet 50 mg 05-23 14:16: 21 05-24 07:31 :32 No 50mg Q6H 50 mg, Oral, Every 6 hours PRN, severe pain (7-10), Starting on Tue05/23/24 at [address] [facility] sennosides (Senokot) tablet 8.6 mg sennosides (Senokot) tablet 8.6 mg 05-23 09:00: 00 Yes 1{tbl} Q.5D 8.6 mg (1 tablet), Oral, 2 times daily, First dose on Tue05/23/24 at 0900 Shama Yu [facility] famotidine (Pepcid) tablet 20 mg famotidine (Pepcid) [...] 300 instructio ns: Contact Provider Shama Yu [facility] glucagon injection 1 mg glucagon injection 1 [...] For 1 dose, Administer IVP. Shama Yu [facility] HYDROcodone -acetaminop hen (NORCO) 10-325 mg tablet 1 tablet 11-04 07:00: 00 11-04 06:31 :00 No 1{tbl} 1 tablet, Oral, ONCE NOW, 1 dose, On 11/05/23 at 0200, Routine [facility] amoxicillin -clavulanat e (AUGMENTIN) 875-125 mg per tablet 1 tablet 11-04 07:00: 00 11-04 06:31 :00 No 1{tbl} 1 tablet, Oral, ONCE NOW, 1 dose, On 11/05/23 at 0200, Routine, Reason for Anti-Infec tive: Documented Infection, Documented Infection Site: Skin / Soft Tissue, Duration of Therapy: Once (ED) [facility] ondansetron (ZOFRAN (PF)) injection 4 mg 11-04 06:30: 00 11-04 05:33 :00 No 4mg 4 mg, Slow IV Push, ONCE, 1 dose, On 11/05/23 at 0130, CHE [facility] metoclopram mello HCl (REGLAN) injection 10 mg 11-04 06:15: 00 11-04 06:31 :00 No 10mg 10 mg, Slow IV Push, ONCE, 1 dose, On 11/05/23 at 0115, CHE [facility] morpHINE (4 mg/mL) injection 4 mg 11-04 05:30: 00 11-04 04:44 :00 No 4mg 4 mg, Slow IV Push, ONCE, 1 dose, On 11/05/23 at 0030, STAT [facility] iopamidol (ISOVUE 370-500 mL) injection 85 mL 11-04 04:45: 00 11-04 04:45 :00 No [id number] 85mL 85 mL, Intravenou s, ONCE, 1 dose, On Tue11/04/23 at 2345, Routine [facility] ondansetron (ZOFRAN (PF)) injection 4 mg 11-04 03:00: 00 11-04 03:02 :00 No 4mg 4 mg, Slow IV Push, ONCE, 1 dose, On Tue11/04/23 at 2200, CHE [facility] morpHINE (4 mg/mL) injection 4 mg 11-04 03:00: 00 11-04 03:03 :00 No 4mg 4 mg, Slow IV Push, ONCE, 1 dose, On Tue11/04/23 at 2200, STAT [facility] amoxicillin -clavulanat e 875-125 mg per tablet 11-04 00:00: 00 Yes [id number] 1{tbl} Take 1 tablet by mouth every 12 (twelve) hours. [facility] traMADoL (ULTRAM) 50 mg tablet 11-04 00:00: 00 Yes [id number] 50mg Take 1 tablet by mouth every 6 (six) hours as needed for Pain (scale 7-10). Indication s: acute pain [facility] ondansetron (ZOFRAN) 4 mg tablet 11-04 00:00: 00 Yes [id number] 4mg Take 1 tablet by mouth every 8 (eight) hours as needed for Nausea and Vomiting (N/V). 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 Restricted medication : DAVON GARCIA [facility] tc 99m-tetrofo smin (MYOVIEW) injection 15.8 millicurie 08-29 13:00: 00 08-29 12:56 :00 No [id number] 15.8mCi 15.8 millicurie , Intravenou s, ONCE, 1 dose, On Tue08/30/23 at 0800, Routine [facility] NaCl 0.9% (NS) injection 5 mL 2022-04 15:30: 00 03-10 18:22 :00 No 5mL 5 mL, Slow IV Push, ONCE, 1 dose, On Tue03/10/23 at 0930, Routine [facility] heparin 1,000 unit/mL (10 mL) - dialysis catheter care 2022-04 15:16: 28 Yes 2000U PRN - SEE INSTRUCTIO NS, Starting on Faustina 03/10/23 at 0916, Until Discontinu ed, Routine
For Priming of Ports:&nbs p; &n bsp; After initial saline flush, prime each port with heparin according to the priming volume listed on each catheter port for catheter lock.
[facility] Cholecalcif jeannie, Vitamin D3, 50 mcg (2,000 unit) capsule 2022-04 15:01: 52 Yes Take by mouth. [facility] cyanocobala min, vitamin B-12, 2,000 mcg Tab 2022-04 15:01: 52 Yes Take by mouth. [facility] DULoxetine 60 mg capsule 2022-04 15:01: 52 Yes 60mg Take 1 capsule by mouth in the morning. [facility] empaglifloz in 10 mg 2022-04 15:01: 52 Yes 10mg Take 1 tablet by mouth in the morning. [facility] furosemide (LASIX) 40 mg tablet 2022-04 15:01: 52 Yes 40mg Take 1 tablet by mouth in the morning. [facility] losartan 25 mg tablet 2022-04 15:01: 52 Yes 25mg Take 1 tablet by mouth in the morning. [facility] mirtazapine 15 mg tablet 2022-04 15:01: 52 Yes 15mg Take 1 tablet by mouth at bedtime. [facility] Pantoprazol e 40 mg delayed-rel ease suspension 2022-04 15:01: 52 Yes 40mg Take 40 mg by mouth in the morning. [facility] rosuvastati n 40 mg tablet 2022-04 15:01: 52 Yes 40mg Take 1 tablet by mouth at bedtime. [facility] spironolact one (ALDACTONE) 25 mg tablet 2022-04 15:01: 52 Yes 25mg Take 1 tablet by mouth in the morning. [facility] thiamine 100 mg tablet 2022-04 15:01: 52 Yes 100mg Take 1 tablet by mouth in the morning. [facility] metoprolol succinate XL 50 mg 24 hr tablet 2022-04 13:24: 06 03-10 00:00 :00 No 50mg Take 1 tablet by mouth in the morning. [facility] folic acid 0.8 mg Cap 2022-04 11:33: 32 03-10 00:00 :00 No Take by mouth. [facility] methocarbam oL 750 mg tablet 2022-04 00:00: 00 Yes [id number] 750mg Take 1 tablet by mouth 2 (two) times daily as needed for Pain (scale 1-3). [facility] propranoloL 20 mg tablet 2022-04 00:00: 00 Yes [id number] 20mg Take 1 tablet by mouth in the morning and 1 tablet in the evening. [facility] traZODone 50 mg tablet 2022-04 00:00: 00 Yes [id number] 50mg Take 1 tablet by mouth at bedtime. [facility] ipratropium -albuteroL 0.5 mg-3 mg(2.5 mg base)/3 mL nebulizer solution 2022-04 00:00: 00 Yes [id number] 3mL Inhale 3 mL 4 (four) times daily. [facility] lactulose 10 gram/15 mL solution 2022-04 00:00: 00 Yes [id number] 30mL Take 30 mL by mouth in the morning and 30 mL in the evening. [facility] nystatin 100,000 unit/gram ointment 2022-04 00:00: 00 Yes [id number] Apply to area(s) 2 (two) times daily. [facility] rifAXIMin 550 mg tablet 2022-04 00:00: 00 Yes [id number] 550mg Take 1 tablet by mouth in the morning and 1 tablet in the evening. [facility] foLIC acid 1 mg tablet 2022-04 00:00: 00 Yes [id number] 1mg Take 1 tablet by mouth in the morning. [facility] pregabalin (LYRICA) capsule 25 mg 2022-04 15:00: 00 Yes 25mg 25 mg, Oral, DAILY, First dose (after last modificati on) on Tue03/09/23 at 0900, Until Discontinu ed, Routine [facility] acetaminoph en (TYLENOL) tablet 650 mg 2022-04 14:35: 40 Yes 650mg 650 mg, Oral, Q6HPRN, Starting on Tue03/09/23 at 0835, Until Discontinu ed, Routine, Pain (scale 1-3) [facility] mirtazapine (REMERON) tablet 15 mg 2022-04 03:00: 00 Yes 15mg 15 mg, Oral, QHS, First dose on Tue03/08/23 at 2100, Until Discontinu ed, Routine [facility] hydrOXYzine (ATARAX) tablet 10 mg 2022-04 14:46: 24 Yes 10mg 10 mg, Oral, Q6HPRN, Starting on Tue03/08/23 at 0846, Until Discontinu ed, Routine, Itching, Anxiety, insomnia [facility] NaCl 0.9% (NS) injection 5 mL 2022-04 13:00: 00 03-08 13:00 :00 No 5mL 5 mL, Slow IV Push, ONCE, 1 dose, On Tue03/08/23 at 0700, [facility] 1,000 unit/mL (10 mL) - dialysis catheter care 2022-04 12:52: 50 Yes 2000U PRN - SEE INSTRUCTIO NS, Starting on Tue03/08/23 at 0652, Until Discontinu ed, Routine
For Priming of Ports:&nbs p; &n bsp; After initial saline flush, prime each port with heparin according to the priming volume listed on each catheter port for catheter lock.
[facility] methocarbam oL (ROBAXIN) tablet 750 mg 2022-04 03:36: 54 Yes 750mg 750 mg, Oral, BIDPRN, Starting on Tue03/07/23 at 2136, Until Discontinu ed, Routine, Muscle Spasms [facility] HYDROcodone -acetaminop hen (NORCO 5) 5-325 mg tablet 1 tablet 2022-04 03:32: 15 Yes 1{tbl} 1 tablet, Oral, Q6HPRN, Starting on Tue03/07/23 at 2132, Until Discontinu ed, Routine, Pain (scale 7-10) [facility] traZODone (DESYREL) tablet 50 mg 2022-04 03:00: 00 Yes 50mg 50 mg, Oral, QHS, First dose on Tue03/07/23 at 2100, Until Discontinu ed, Routine [facility] heparin (porcine) injection 5,000 Units 2022-04 02:00: 00 Yes 5000U 5,000 Units, Subcutaneo us, Q12H, First dose on Tue03/07/23 at 2000, Until Discontinu ed, Routine [facility] ipratropium -albuteroL (DUONEB) 0.5 mg-3 mg(2.5 mg base)/3 mL nebulizer solution 3 mL 2022-04 15:00: 00 Yes 3mL 3 mL, Inhalation , QID, First dose (after last modificati on) on 03/07/23 at 0900, Until Discontinu ed, Routine [facility] foLIC acid (FOLATE) tablet 1 mg 2022-04 15:00: 00 Yes 1mg 1 mg, Oral, DAILY, First dose on 03/06/23 at 0900, Until Discontinu ed, Routine [facility] pantoprazol e (PROTONIX) EC tablet 40 mg 2022-04 15:00: 00 Yes 40mg 40 mg, Oral, DAILY, First dose on 03/06/23 at 0900, Until Discontinu ed, Routine [facility] thiamine (VITAMIN B1) tablet 100 mg 2022-04 15:00: 00 Yes 100mg 100 mg, Oral, DAILY, First dose on 03/06/23 at 0900, Until Discontinu ed, Routine [facility] lactulose (CEPHULAC) solution 30 mL 2022-04 14:00: 00 Yes 30mL 30 mL, Oral, BID, First dose (after last modificati on) on 03/06/23 at 0800, Until Discontinu ed, Routine [facility] rosuvastati n (CRESTOR) tablet 10 mg 2022-04 03:00: 00 Yes 10mg 10 mg, Oral, QHS, First dose (after last modificati on) on 03/05/23 at 2100, Until Discontinu ed, Routine [facility] melatonin (MELATIN) tablet 6 mg 2022-04 03:00: 00 03-08 16:57 :30 No 6mg 6 mg, Oral, QHS, First dose (after last modificati on) on 03/05/23 at 2100, Until Discontinu ed, Routine [facility] rifAXIMin (XIFAXAN) tablet 550 mg 2022-04 02:00: 00 Yes 550mg 550 mg, Oral, BID, First dose on 03/05/23 at 2000, Until Discontinu ed, Routine
Reason for Anti-Infec tive: Empiric Non-Surgic al Prophylaxi s
Durat ion of therapy: 5 days
Sp ecific indication : HE [facility] propranoloL (INDERAL) tablet 20 mg 2022-04 02:00: 00 Yes 20mg 20 mg, Oral, BID, First dose on 03/05/23 at 2000, Until Discontinu ed, Routine [facility] lactulose (CEPHULAC) solution 30 mL 2022-04 02:00: 00 03-06 13:29 :57 No 30mL 30 mL, Enteral, BID, First dose (after last modificati on) on 03/05/23 at 2000, Until Discontinu ed, Routine [facility] heparin 1,000 unit/mL (10 mL) - dialysis [...] lock.
[facility] melatonin (MELATIN) tablet 6 mg 2022-04 03:00: 00 03-05 15:10 :20 No 6mg 6 mg, Oral, QHS, First dose (after last modificati on) on Tue03/04/23 at 2100, Until Discontinu ed, Routine [facility] acetaminoph en (TYLENOL) 160 mg/5 mL oral liquid 650 mg 2022-04 21:12: 26 03-09 14:36 :27 No 650mg 650 mg, Oral, Q6HPRN, Starting on Tue03/04/23 at 1512, Until 03/09/23 at 0836, Routine, Pain (scale 4-6), Temp > 38.5 C [facility] iopamidol (ISOVUE 370-500 mL) injection 80 mL 2022-04 19:02: 00 03-04 19:02 :00 No [id number] 80mL 80 mL, Intravenou s, ONCE, 1 dose, On Tue03/04/23 at 1315, [facility] KCL (KLOR-CON M20) tablet 20 mEq 2022-04 17:45: 00 03-04 18:11 :00 No 20meq 20 mEq, Oral, ONCE, 1 dose, On Tue03/04/23 at 1145, Routine [facility] folic acid (FOLATE) 1 mg/mL oral solution 1 mg 2022-04 15:00: 00 03-05 15:10 :20 No 1mg 1 mg, Enteral, DAILY, First dose on Tue03/04/23 at 0900, Until Discontinu ed, Routine [facility] hydrOXYzine (ATARAX) tablet 10 mg 2022-04 13:10: 48 03-08 14:46 :34 No 10mg 10 mg, Oral, Q6HPRN, Starting on Tue03/04/23 at 0710, Until Tue03/08/23 at 0846, Routine, Itching, insomnia [facility] rosuvastati n (CRESTOR) tablet 10 mg 2022-04 03:00: 00 03-05 15:10 :20 No 10mg 10 mg, Oral, QHS, First dose (after last modificati on) on Tue03/03/23 at 2100, Until Discontinu ed, Routine [facility] melatonin (MELATIN) tablet 3 mg 2022-04 03:00: 00 03-04 13:11 :40 No 3mg 3 mg, Oral, QHS, First dose (after last modificati on) on Tue03/03/23 at 2100, Until Discontinu ed, Routine [facility] propranoloL (INDERAL) 20 mg/5 mL (4 mg/mL) solution 10 mg 2022-04 02:00: 00 03-05 15:10 :20 No 10mg 10 mg, Enteral, BID, First dose (after last modificati on) on Tue03/03/23 at 1999, Until Discontinu ed, Routine [facility] propranoloL (INDERAL) 20 mg/5 mL (4 mg/mL) solution 10 mg 2022-04 15:45: 00 03-03 21:14 :53 No 10mg 10 mg, Oral, BID, First dose on Tue03/03/23 at 0945, Until Discontinu ed, Routine [facility] NaCl 0.9% (NS) injection 5 mL 2022-04 15:30: 00 03-03 16:28 :00 No 5mL 5 mL, Slow IV Push, ONCE, 1 dose, On Tue03/03/23 at 0930, Routine [facility] heparin 1,000 unit/mL (10 mL) - dialysis catheter care 2022-04 15:27: 18 03-06 13:29 :57 No 2000U PRN - SEE INSTRUCTIO NS, Starting on Tue03/03/23 at 0927, Until [place] 03/06/23 at 0729, Routine
For Priming of Ports:&nbs p; &n bsp; After initial saline flush, prime each port with heparin according to the priming volume listed on each catheter port for catheter lock.
[facility] nystatin (MYCOSTATIN ) ointment 2022-04 15:00: 00 Yes Topical, BID, First dose on Tue03/03/23 at 0900, Until Discontinu ed, Routine [facility] rifAXIMin (XIFAXAN) 20 mg/mL oral suspension 550 mg 2022-04 02:00: 00 03-05 15:10 :20 No 550mg 550 mg, Enteral, BID, First dose (after last modificati on) on Tue03/02/23 at 1999, Until Discontinu ed, Routine
Reason for Anti-Infec tive: Empiric Non-Surgic al Prophylaxi s
Durat ion of therapy: 5 days [facility] lactulose (CEPHULAC) solution 30 mL 2022-04 02:00: 00 03-05 15:10 :20 No 30mL 30 mL, Enteral, QID, First dose (after last modificati on) on Tue03/02/23 at 2000, Until Discontinu ed, Routine [facility] NaCl 0.9% (NS) injection 5 mL 2022-04 22:00: 00 03-02 23:25 :00 No 5mL 5 mL, Slow IV Push, ONCE, 1 dose, On Tue03/02/23 at 1600, Routine [facility] heparin 1,000 unit/mL (10 mL) [...] each catheter port for catheter lock.
[facility] heparin 1,000 unit/mL injection 2022-04 21:00: 18 03-02 21:00 :18 No PRN, Starting on Tue03/02/23 at 1500, Until Tue03/02/23 at 1500, Routine, Intra-op [facility] Cholecalcif jeannie, Vitamin D3, 50 mcg (2,000 unit) capsule 2022-04 20:48: 54 Yes Take by mouth. [facility] cyanocobala min, vitamin B-12, 2,000 mcg Tab 2022-04 20:48: 54 Yes Take by mouth. [facility] DULoxetine 60 mg capsule 2022-04 20:48: 54 Yes 60mg Take 1 capsule by mouth in the morning. [facility] empaglifloz in 10 mg 2022-04 20:48: 54 Yes 10mg Take 1 tablet by mouth in the morning. [facility] folic acid 0.8 mg Cap 2022-04 20:48: 54 Yes Take by mouth. [facility] furosemide (LASIX) 40 mg tablet 2022-04 20:48: 54 Yes 40mg Take 1 tablet by mouth in the morning. [facility] losartan 25 mg tablet 2022-04 20:48: 54 Yes 25mg Take 1 tablet by mouth in the morning. [facility] metoprolol succinate XL 50 mg 24 hr tablet 2022-04 20:48: 54 Yes 50mg Take 1 tablet by mouth in the morning. [facility] mirtazapine 15 mg tablet 2022-04 20:48: 54 Yes 15mg Take 1 tablet by mouth at bedtime. [facility] [facility] Pantoprazol e 40 mg delayed-rel ease suspension 2022-04 20:48: 54 Yes 40mg Take 40 mg by mouth in the morning. [facility] rosuvastati n 40 mg tablet 2022-04 20:48: 54 Yes 40mg Take 1 tablet by mouth at bedtime. [facility] spironolact one (ALDACTONE) 25 mg tablet 2022-04 20:48: 54 Yes 25mg Take 1 tablet by mouth in the morning. [facility] thiamine 100 mg tablet 2022-04 20:48: 54 Yes 100mg Take 1 tablet by mouth in the morning. [facility] lidocaine 1% (PF) (XYLOCAINE) injection 2022-04 20:32: 55 03-02 20:32 :55 No PRN, Starting on Tue03/02/23 at 1432, Until Tue03/02/23 at 1432, Routine, Intra-op [facility] FENTanyl PF (SUBLIMAZE (PF)) injection 2022-04 20:32: 42 03-02 20:47 :05 No Slow IV Push, PRN, Starting on Tue03/02/23 at 1432, Until Tue03/02/23 at 1447, Routine, Intra-op [facility] midazolam (VERSED) injection 2022-04 20:32: 23 03-02 20:32 :23 No IV Push, PRN, Starting on Tue03/02/23 at 1432, Until Tue03/02/23 at 1432, Routine, Intra-op [facility] midodrine (PROAMATINE ) tablet 10 mg 2022-04 12:00: 00 03-03 15:39 :09 No 10mg 10 mg, Enteral, Q8H, First dose (after last modificati on) on Tue03/02/23 at 0600, Until Discontinu ed, Routine [facility] midodrine (PROAMATINE ) tablet 15 mg 2022-04 04:00: 00 03-02 09:53 :15 No 15mg 15 mg, Enteral, Q8H, First dose (after last modificati on) on Tue03/01/23 at 2200, Until Discontinu ed, Routine [facility] rifAXIMin (XIFAXAN) 20 mg/mL oral suspension 550 mg 2022-04 02:00: 00 03-03 01:56 :04 No 550mg 550 mg, Oral, BID, First dose on Tue03/01/23 at 2000, Until Discontinu ed, Routine
Reason for Anti-Infec tive: Empiric Non-Surgic al Prophylaxi s
Durat ion of therapy: 5 days [facility] NaCl 0.9% (NS) injection 5 mL 2022-04 21:15: 00 03-01 21:50 :00 No 5mL 5 mL, Slow IV Push, ONCE, 1 dose, On Tue03/01/23 at 1515, Routine [facility] heparin 1,000 unit/mL (10 mL) - dialysis catheter care 2022-04 21:00: 05 03-02 21:50 :21 No 2000U PRN - SEE INSTRUCTIO NS, Starting on Tue03/01/23 at 1500, Until Tue03/02/23 at 1550, Routine
For Priming of Ports:&nbs p; &n bsp; After initial saline flush, prime each port with heparin according to the priming volume listed on each catheter port for catheter lock.
[facility] barium sulfate-NO CHARGE- (VARIBAR NECTOR) 40 % (w/v) oral suspension 30 mL 2022-04 19:30: 00 03-01 19:35 :00 No [id number] 30mL 30 mL, Oral, ONCE, 1 dose, On Tue03/01/23 at 1330, Routine [facility] lactulose (CEPHULAC) solution 30 mL 2022-04 18:00: 00 03-03 01:56 :04 No 30mL 30 mL, Oral, QID, First dose (after last modificati on) on Tue03/01/23 at 1200, Until Discontinu ed, Routine [facility] rifAXIMin (XIFAXAN) tablet 550 mg 2022-04 02:00: 00 03-01 16:26 :10 No 550mg 550 mg, Oral, BID, First dose on Tue02/28/23 at 2000, Until Discontinu ed, Routine
Reason for Anti-Infec tive: Empiric Therapy for Suspected Infection< br>Empiric Therapy Site: Other
O ther site: HE
Dura tion of therapy: 5 days [facility] octreotide (SANDOSTATI N) 500 mcg in NaCl 0.9% (NS) 100 mL infusion 2022-04 17:00: 00 03-01 22:37 :31 No 50ug/h 50 mcg/hr (10 mL/hr), IV Infusion, CONTINUOUS , Starting on Tue02/28/23 at 1100 [facility] ceFEPIme (MAXIPIME) 1,000 mg in [...]
Durat ion of therapy: 5 days [facility] ceFEPIme (MAXIPIME) 2,000 mg in NaCl 0.9% (NS) 100 mL MINI-BAG 2022-04 16:15: 00 02-27 19:48 :00 No 2000mg 2,000 mg, IV Piggyback, ONCE, 1 dose, On 02/27/23 at 1015, Administer over 30 Minutes, 100 mL
Reas on for Anti-Infec tive: Empiric Therapy for Suspected Infection< br>Empiric Therapy Site: Respirator y
Durat ion of therapy: 5 days [facility] sodium phosphate 30 mmol in NaCl 0.9% (NS) 250 mL piggyback 2022-04 14:45: 00 02-27 18:39 :00 No 30mmol 30 mmol, IV Piggyback, ONCE, 1 dose, On 02/27/23 at 0845, Administer over 4 Hours, 250 mL [facility] cefTRIAXone (ROCEPHIN) 1,000 mg in [...] br>Duratio n of therapy: 5 days [facility] acetaminoph en (TYLENOL) tablet 650 mg 2022-04 04:04: 36 03-04 21:12 :18 No 650mg 650 mg, Enteral, Q6HPRN, Starting on 02/26/23 at 2304, Until Tue03/04/23 at 1512, Routine, Temp > 38 C [facility] lanolin alcohol-mo- w.pet-ceres (EUCERIN) cream 2022-04 03:30: 48 Yes Topical, PRN, Starting on 02/26/23 at 2230, Until Discontinu ed, Routine, Dermatitis /Rash, Near genital area [facility] rosuvastati n (CRESTOR) tablet 40 mg 2022-04 02:00: 00 03-03 01:56 :04 No 40mg 40 mg, Oral, QHS, First dose (after last modificati on) on 02/26/23 at 2100, Until Discontinu ed, Routine [facility] artificial tears(hypro mellose) (ISOPTO-TEA RS) 0.5 % ophthalmic drops 1 Drop 2022-04 21:16: 50 Yes 1[drp] 1 Drop, Both Eyes, PRN, Starting on 02/26/23 at 1616, Until Discontinu ed, Routine, Dry eyes [facility] pantoprazol e (PROTONIX) 2 mg/mL oral suspension 40 mg 2022-04 14:00: 00 03-05 15:10 :20 No 40mg 40 mg, Enteral, DAILY, First dose on 02/26/23 at 0900, Until Discontinu ed, Routine [facility] lactulose (CEPHULAC) solution 30 mL 2022-04 13:00: 00 03-01 14:09 :36 No 30mL 30 mL, Enteral, QID, First dose (after last modificati on) on 02/26/23 at 0800, Until Discontinu ed, Routine [facility] dexMEDEtomi dine 400 mcg in 0.9 % [...] at maximum allowed dose, contact prescriber .
[facility] NaCl 0.9% (NS) IV infusion 1,000 mL 2022-04 23:15: 00 02-27 17:23 :24 No 1000mL at 250 mL/hr, CRRT Circuit, CONTINUOUS , Starting on Tue02/25/23 at 1815, Until 02/27/23 at 1123, Routine [facility] midodrine (PROAMATINE ) tablet 20 mg 2022-04 11:00: 00 03-02 02:32 :00 No 20mg 20 mg, Enteral, Q8H, First dose (after last modificati on) on Tue02/25/23 at 0600, Until Discontinu ed, Routine [facility] NORepinephr ine 4 mg in [...] at maximum allowed dose, contact prescriber .
[facility] albumin (PLASBUMIN) 25 % injection 87.5 g 2022-04 04:45: 00 02-26 01:00 :00 No 1g/kg 87.5 g (1 g/kg ?87.5 kg), IV Infusion, ONCE, 1 dose, On Faustina 02/24/23 at 2345, 400 mL
Cara cation: HEPATORENA L SYNDROME (DIAGNOSIS )
Comme nts: Albumin 1 g/kg/day for 2 days (up to a maximum of 100 g/day) [facility] dialys[facility] (PRISMASATE 4K) K 4.0-Ca 2.5, Mg 1.5, HCO3 32, NA 140, CL 113, LACTATE 3, DEX 110, Osm 300 2022-04 03:15: 00 02-27 17:23 :24 No 2800mL/ h 2,800 mL/hr, CRRT Circuit, CONTINUOUS , Starting on Tue02/24/23 at 2215, Until Tue02/27/23 at 1123, Routine [facility] midodrine (PROAMATINE ) tablet 10 mg 2022-04 03:00: 00 02-25 04:29 :59 No 10mg 10 mg, Enteral, Q8H, First dose (after last modificati on) on Tue02/24/23 at 2200, Until Discontinu ed, Routine [facility] CRRT fluid dialysate (PRISMASATE 4K) K 4.0-Ca 2.5, Mg 1.5, HCO3 32, NA 140, CL 113, LACTATE 3, DEX 110, Osm 300 2022-04 01:00: 00 02-25 03:00 :40 No 4000mL/ h 4,000 mL/hr, CRRT Circuit, CONTINUOUS , Starting on Tue02/24/23 at 2000, Until Tue02/24/23 at 2200, Routine [facility] NaCl 0.9% (NS) IV infusion 1,000 mL 2022-04 01:00: 00 02-25 23:05 :02 No 1000mL at 200 mL/hr, CRRT Circuit, CONTINUOUS , Starting on Tue02/24/23 at 2000, Until Tue02/25/23 at 1805, Routine [facility] thiamine (VITAMIN B1) tablet 100 mg 2022-04 14:00: 00 03-05 15:10 :20 No 100mg 100 mg, Enteral, DAILY, First dose (after last modificati on) on Tue02/24/23 at 0900, Until Discontinu ed, Routine [facility] foLIC acid (FOLATE) tablet 1 mg 2022-04 14:00: 00 03-03 21:14 :13 No 1mg 1 mg, Enteral, DAILY, First dose (after last modificati on) on Tue02/24/23 at 0900, Until Discontinu ed [facility] midodrine (PROAMATINE ) tablet 20 mg 2022-04 19:54: 00 02-24 22:29 :47 No 20mg 20 mg, Enteral, Q8H, First dose (after last modificati on) on Tue02/23/23 at 1500, Until Discontinu ed, Routine [facility] albumin (PLASBUMIN) 25 % injection 87.5 g 2022-04 19:34: 00 02-23 20:50 :33 No 1g/kg 87.5 g (1 g/kg ?87.5 kg), IV Infusion, ONCE, 1 dose, On Tue02/23/23 at 1445, 400 mL
Cara cation: HEPATORENA L SYNDROME (DIAGNOSIS )
Comme nts: Albumin 1 g/kg/day for 2 days (up to a maximum of 100 g/day) [facility] lactulose (CEPHULAC) solution 30 mL 2022-04 19:00: 00 02-26 01:25 :38 No 30mL 30 mL, Enteral, TID, First dose (after last modificati on) on Tue02/23/23 at 1400, Until Discontinu ed, Routine [facility] midodrine (PROAMATINE ) tablet 5 mg 2022-04 19:00: 00 02-23 19:51 :03 No 5mg 5 mg, Enteral, TID, First dose (after last modificati on) on Tue02/23/23 at 1400, Until Discontinu ed, Routine [facility] midodrine (PROAMATINE ) tablet 5 mg 2022-04 13:00: 00 02-23 17:39 :19 No 5mg 5 mg, Oral, TID, First dose on Tue02/23/23 at 0800, Until Discontinu ed, Routine [facility] NaCl 0.9% (NS) injection 5 mL 2022-04 13:00: 00 02-23 14:02 :00 No 5mL 5 mL, Slow IV Push, ONCE, 1 dose, On Tue02/23/23 at 0800, Routine [facility] cefTRIAXone (ROCEPHIN) 1,000 mg in [...] Abdominal< br>Duratio n of therapy: 5 days [facility] octreotide (SANDOSTATI N) injection 100 mcg 2022-04 19:00: 00 02-24 23:03 :09 No 100ug 100 mcg, Subcutaneo us, TID, First dose on Tue02/22/23 at 1400, Until Discontinu ed, Routine
Indicatio n: Hepatorena l Syndrome [facility] NORepinephr ine 4 mg in [...] intravenou s vasopresso r at a time.
[facility] QUEtiapine (SEROQUEL) tablet 25 mg 2022-04 01:00: 00 02-24 19:38 :58 No 25mg 25 mg, Oral, BID, First dose on Tue02/21/23 at 1999, Until Discontinu ed, Routine [facility] dexMEDEtomi dine 200 mcg in [...] at maximum allowed dose, contact prescriber .
[facility] propofoL IV infusion 2022-04 22:25: [...] vials should be discarded after 12 hours.
[facility] etomidate (AMIDATE) injection 10 mg 2022-04 22:00: 00 02-21 21:16 :00 No 10mg 10 mg, Slow IV Push, ONCE, 1 dose, On Tue02/21/23 at 1700, Routine [facility] succinylcho line (QUELICIN) injection 120 mg 2022-04 22:00: 00 02-21 21:16 :00 No 120mg 120 mg, IV Push, ONCE, 1 dose, On Tue02/21/23 at 1700, Routine [facility] heparin 1,000 unit/mL injection 2,800 Units 2022-04 21:46: 24 03-03 15:40 :07 No 2800U 2,800 Units, Slow IV Push, PRN - SEE INSTRUCTIO NS, Starting on Tue02/21/23 at 1646, Until Faustina 03/03/23 at 0940, Routine, for post HD hep lock [facility] etomidate (AMIDATE) injection 2022-04 21:07: 00 02-22 00:01 :33 No Slow IV Push, ONCE INTRA PROCEDURE, Starting on Tue02/21/23 at 1607, Until Discontinu ed, Routine, Intra-op [facility] succinylcho line (QUELICIN) injection 2022-04 21:07: 00 02-22 00:01 :33 No IV Push, ONCE INTRA PROCEDURE, Starting on Tue02/21/23 at 1607, Until Discontinu ed, Routine, Intra-op [facility] lactulose (CEPHULAC) solution 30 mL 2022-04 19:00: 00 02-23 17:39 :19 No 30mL 30 mL, Enteral, TID, First dose on Tue02/21/23 at 1400, Until Discontinu ed, Routine [facility] flumazeniL (ROMAZICON) injection 0.3 mg 2022-04 18:15: 00 02-21 17:27 :00 No .3mg 0.3 mg, IV Push, ONCE, 1 dose, On Tue02/21/23 at 1315, CHE
Fa culty member approving Restricted medication : TONY ABRAHAM [facility] flumazeniL (ROMAZICON) injection 0.2 mg 2022-04 18:00: 00 02-21 17:14 :00 No .2mg 0.2 mg, IV Push, ONCE, 1 dose, On Tue02/21/23 at 1300, STAT
Fa culty member approving Restricted medication : TONY ABRAHAM [facility] LORazepam (ATIVAN) injection 2 mg 2022-04 16:00: 00 02-21 16:39 :00 No 2mg 2 mg, Slow IV Push, ONCE, 1 dose, On Tue02/21/23 at 1100, Routine [facility] sulfur hexafluorid e microsphr (LUMASON) injection 5 mL 2022-04 15:30: 00 02-21 15:30 :00 No [id number] 5mL 5 mL, Intravenou s, ONCE, 1 dose, On Tue02/21/23 at 1030, Routine
in flight crew member approving Restricted medication : MARIO GARZA [facility] hydrOXYzine (ATARAX) tablet 10 mg 2022-04 09:53: 27 03-03 01:56 :04 No 10mg 10 mg, Oral, Q6HPRN, Starting on Tue02/21/23 at 0453, Until Tue03/02/23 at 1956, Routine, Itching [facility] ondansetron (ZOFRAN (PF)) injection 4 mg 2022-04 03:03: 54 03-06 13:29 :57 No 4mg 4 mg, Slow IV Push, Q6HPRN, Nausea and Vomiting (N/V), Starting on Tue02/20/23 at 2203
Do ses of ondansetro n 16 mg and above need to be administer ed via IV piggyback. For Dose >=24mg ECG monitoring is advisable.
[facility] lactulose (CEPHULAC) solution 45 mL 2022-04 01:00: 00 02-21 05:12 :01 No 45mL 45 mL, Oral, TID, First dose (after last modificati on) on Tue02/20/23 at 2000, Until Discontinu ed, Routine [facility] albumin (PLASBUMIN) 25 % injection 93.5 g 2022-04 14:15: 00 02-21 01:00 :00 No 1g/kg 93.5 g (1 g/kg ?93.5 kg), IV Infusion, ONCE, 1 dose, On Tue02/20/23 at 0915, 400 mL
Cara cation: HEPATORENA L SYNDROME (DIAGNOSIS )
Comme nts: Albumin 1 g/kg/day for 2 days (up to a maximum of 100 g/day) [facility] D5W IV infusion 1,000 mL [...] Na is 121)
[facility] lactulose (CEPHULAC) solution 15 mL 2022-04 13:00: 00 02-20 18:05 :41 No 15mL 15 mL, Oral, TID, First dose (after last modificati on) on Tue02/20/23 at 0800, Until Discontinu ed, Routine [facility] melatonin (MELATIN) tablet 3 mg 2022-04 05:30: 00 02-26 02:42 :34 No 3mg 3 mg, Oral, QHS, First dose on 02/20/23 at 0030, Until Discontinu ed, Routine [facility] rosuvastati n (CRESTOR) tablet 40 mg 2022-04 02:00: 00 02-26 06:24 :54 No 40mg 40 mg, Oral, QHS, First dose on 02/19/23 at 2100, Until Discontinu ed, Routine [facility] D5W IV infusion 1,000 mL 2022-04 21:45: 00 02-20 13:22 :08 No 1000mL at 220 mL/hr, IV Infusion, CONTINUOUS , Starting on 02/19/23 at 1645, Until [place] 02/20/23 at 0822, Routine
To be used as predilutio n fluid through CRRT circuit once CRRT is started to avoid sodium level overcorrec tion (as dialysate sodium concentrat ion is 140 mml/L and patient's Na is 121)
[facility] CRRT fluid dialysate (PRISMASATE 4K) K 4.0-Ca 2.5, Mg 1.5, HCO3 32, NA 140, CL 113, LACTATE 3, DEX 110, Osm 300 2022-04 21:30: 00 02-24 17:25 :11 No 2400mL/ h 2,400 mL/hr, CRRT Circuit, CONTINUOUS , Starting on 02/19/23 at 1630, Until Faustina 02/24/23 at 1225, Routine [facility] NORepinephr ine 4 mg in [...] intravenou s vasopresso r at a time.
[facility] albumin (PLASBUMIN) 25 % injection 93.5 g 2022-04 15:00: 00 02-20 12:00 :00 No 1g/kg 93.5 g (1 g/kg ?93.5 kg), IV Infusion, ONCE, 1 dose, On 02/19/23 at 1000, 400 mL
Cara cation: HEPATORENA L SYNDROME (DIAGNOSIS )
Comme nts: Albumin 1 g/kg/day for 2 days (up to a maximum of 100 g/day) [facility] furosemide (LASIX) injection 80 mg 2022-04 15:00: 00 02-19 19:42 :00 No 80mg 80 mg, Slow IV Push, ONCE, 1 dose, On 02/19/23 at 1000, Routine [facility] midodrine (PROAMATINE ) tablet 5 mg 2022-04 14:15: 00 02-19 18:23 :31 No 5mg 5 mg, Oral, Q8H, First dose on 02/19/23 at 0915, Until Discontinu ed, Routine [facility] pantoprazol e (PROTONIX) EC tablet 40 mg 2022-04 14:00: 00 02-26 02:42 :34 No 40mg 40 mg, Oral, DAILY, First dose on 02/19/23 at 0900, Until Discontinu ed, Routine [facility] foLIC acid (FOLATE) tablet 1 mg 2022-04 14:00: 00 02-23 17:39 :19 No 1mg 1 mg, Oral, DAILY, First dose on 02/19/23 at 0900, Until Discontinu ed [facility] thiamine (VITAMIN B1) tablet 100 mg 2022-04 14:00: 00 02-23 17:39 :19 No 100mg 100 mg, Oral, DAILY, First dose on 02/19/23 at 0900, Until Discontinu ed, Routine [facility] magnesium sulfate in water 2 gram/50 mL (4 %) infusion 2 g 2022-04 13:30: 00 02-19 15:20 :00 No 2g 2 g, IV Piggyback, Administer over 60 Minutes, ONCE, 1 dose, On 02/19/23 at 0830, Routine [facility] heparin (porcine) injection 5,000 Units 2022-04 13:00: 00 02-23 00:21 :58 No 5000U 5,000 Units, Subcutaneo us, Q12H, First dose on Tue02/19/23 at 0800, Until Discontinu ed, Routine [facility] lactulose (CEPHULAC) solution 15 mL 2022-04 13:00: 00 02-20 06:44 :06 No 15mL 15 mL, Oral, BID, First dose on 02/19/23 at 0800, Until Discontinu ed, Routine [facility] ceFEPIme (MAXIPIME) 1,000 mg in NaCl 0.9% [...] hours [facility] furosemide (LASIX) injection 40 mg 2022-04 11:00: 00 02-19 10:23 :00 No 40mg 40 mg, Slow IV Push, ONCE, 1 dose, On 02/19/23 at 0600, Routine [facility] folic acid 0.8 mg Cap 2022-04 01:32: 29 Yes Take by mouth. [facility] rosuvastati n 40 mg tablet 2022-04 01:32: 29 Yes 40mg Take 1 tablet by mouth at bedtime. [facility] thiamine 100 mg tablet 2022-04 01:32: 29 Yes 100mg Take 1 tablet by mouth in the morning. [facility] Cholecalcif jeannie, Vitamin D3, 50 mcg (2,000 unit) capsule 2022-04 01:31: 38 Yes Take by mouth. [facility] cyanocobala min, vitamin B-12, 2,000 mcg Tab 2022-04 01:31: 38 Yes Take by mouth. [facility] DULoxetine 60 mg capsule 2022-04 01:31: 38 Yes 60mg Take 1 capsule by mouth in the morning. [facility] empaglifloz in 10 mg 2022-04 01:31: 38 Yes 10mg Take 1 tablet by mouth in the morning. [facility] furosemide (LASIX) 40 mg tablet 2022-04 01:31: 38 Yes 40mg Take 1 tablet by mouth in the morning. [facility] losartan 25 mg tablet 2022-04 01:31: 38 Yes 25mg Take 1 tablet by mouth in the morning. [facility] metoprolol succinate XL 50 mg 24 hr tablet 2022-04 01:31: 38 Yes 50mg Take 1 tablet by mouth in the morning. [facility] mirtazapine 15 mg tablet 2022-04 01:31: 38 Yes 15mg Take 1 tablet by mouth at bedtime. [facility] Pantoprazol e 40 mg delayed-rel ease suspension 2022-04 01:31: 38 Yes 40mg Take 40 mg by mouth in the morning. [facility] spironolact one (ALDACTONE) 25 mg tablet 2022-04 01:31: 38 Yes 25mg Take 1 tablet by mouth in the morning. [facility] escitalopra m (Lexapro) 10 MG tablet escitalopra [...] tab, PO, Daily, 0 Refill(s) Colleenelsa bruno [facility] traZODone (Desyrel) 50 MG tablet traZODone (Desyrel) 50 MG tablet 10-06 00:00: 00 05-23 00:00 :00 No 50mg Take 50 mg by mouth at bedtime. Shama [facility] topiramate 50 MG tablet topiramate 50 MG tablet 10-06 00:00: 00 05-23 00:00 :00 No 50mg 50 mg = 1 tab, PO, Daily, 0 Refill(s) Shama Yu [facility] pantoprazol e (ProtoNix) 40 MG EC tablet pantoprazol e (ProtoNix) 40 MG EC tablet 10-06 00:00: 00 05-23 00:00 :00 No 40mg Take 40 mg by mouth in the morning. Take before meals. Do not crush, chew, or split. [facility] [place] [place] Vital Signs Vital Name Observation Time Observation Value Comments S ource Heart rate 2024-05-31 11:36:05 87 /min [facility] Respiratory rate 2024-05-31 11:36:05 17 /min [facility] Oxygen saturation in Arterial blood by Pulse oximetry 2024-05-31 11:36:05 98 /min [facility] Body temperature 2024-05-31 11:35:58 36.83 Maru [facility] Systolic blood pressure 2024-05-31 11:35:44 135 mm[Hg] [facility] Diastolic blood pressure 2024-05-31 11:35:44 85 mm[Hg] [facility] Body height 2024-05-24 12:00:00 180 [facility] Heart rate 2024-05-31 11:36:05 87 /[facility] Respiratory rate 2024-05-31 11:36:05 17 /min [facility] Oxygen saturation in Arterial blood by Pulse oximetry 2024-05-31 11:36:05 98 /min [facility] Body temperature 2024-05-31 11:35:58 36.83 Maru Lloyd Yu [facility] Systolic blood pressure 2024-05-31 11:35:44 135 mm[Hg] Lloyd k[facility] Diastolic blood pressure 2024-05-31 11:35:44 85 mm[Hg] [facility] Her kong [facility] Body height 2024-05-24 12:00:00 180 cm Adolfo Yu [facility] Systolic blood pressure 2023-11-05 06:31:00 162 mm[Hg] [facility] Diastolic blood pressure 2023-11-05 06:31:00 98 mm[Hg] [facility] Heart rate 2023-11-05 06:31:00 103 /min [facility] Body temperature 2023-11-05 06:31:[address] [facility] Respiratory rate 2023-11-05 06:31:00 18 /min [facility] Oxygen saturation in Arterial blood by Pulse oximetry 2023-11-05 06:31:00 97 /min [facility] Body height 2023-11-05 01:46:00 175.3 cm [facility] Body weight 2023-11-05 01:46:00 88.451 kg [facility] BMI 2023-11-05 01:46:00 28.80 kg/m2 [facility] Systolic blood pressure 2023-07-13 20:35:00 123 mm[Hg] [facility] Diastolic blood pressure 2023-07-13 20:35:00 72 mm[Hg] [facility] Heart rate 2023-07-13 20:35:00 84 /min [facility] Body temperature 2023-07-13 20:35:[address] [facility] Respiratory rate 2023-07-13 20:35:00 19 /min [facility] Body height 2023-07-13 20:35:00 177.8 cm [facility] Body weight 2023-07-13 20:35:00 93.016 kg [facility] BMI 2023-07-13 20:35:00 29.42 kg/m2 [facility] Oxygen saturation in Arterial blood by Pulse oximetry 2023-07-13 20:35:00 97 /min [facility] Systolic blood pressure 2023-03-10 19:24:00 101 mm[Hg] [facility] Diastolic blood pressure 2023-03-10 19:24:00 61 mm[Hg] [facility] Heart rate 2023-03-10 19:24:00 101 /min [facility] Body temperature 2023-03-10 19:24:[address] [facility] Respiratory rate 2023-03-10 19:24:00 18 /min [facility] Body weight 2023-03-10 19:24:00 77.6 kg [facility] BMI 2023-03-10 19:24:00 25.25 kg/m2 [facility] Oxygen saturation in Arterial blood by Pulse oximetry 2023-03-10 14:31:00 97 /min [facility] Body height 2023-03-01 02:00:00 175.3 cm [facility] Systolic blood pressure 2023-03-04 17:13:00 142 mm[Hg] [facility] Diastolic blood pressure 2023-03-04 17:13:00 75 mm[Hg] [facility] Heart rate 2023-03-04 17:13:00 78 /min [facility] Body temperature 2023-03-04 17:13:[address] [facility] Respiratory rate 2023-03-04 17:13:00 18 /min [facility] Oxygen saturation in Arterial blood by Pulse oximetry 2023-03-04 17:13:00 96 /min [facility] Body weight 2023-03-03 19:30:00 86.5 kg [facility] BMI 2023-03-03 19:30:00 28.15 kg/m2 [facility] [facility] Body height 2023-03-01 02:00:00 175.3 cm Univ [facility] Procedures Procedure Date / Time Performed Performing Clinician Source POCT Glucose 2024-06-22 00:00:00 [facility] COMPREHENSIVE METABOLIC PANEL 2024-05-31 05:25:00 Elsa Field [facility] COMPLETE BLOOD COUNT W/DIFF AND PLATELET 2024-05-31 05:25:00 Elsa Field [facility] COMPLETE BLOOD COUNT 2024-05-31 05:25:00 Elsa Field [facility] AUTOMATED DIFFERENTIAL 2024-05-31 05:25:00 Elsa Field [facility] BASIC METABOLIC PANEL 2024-05-30 17:54:00 AdelaBasilio betts Shahnaz [facility] COMPREHENSIVE METABOLIC PANEL 2024-05-30 02:21:00 Elsa Field [facility] COMPLETE BLOOD COUNT W/DIFF AND PLATELET 2024-05-30 02:21:00 Elsa Field [facility] COMPLETE BLOOD COUNT 2024-05-30 02:21:00 Elsa Field [facility] AUTOMATED DIFFERENTIAL 2024-05-30 02:21:00 Elsa Field [facility] [place] 1 HOUR INTRAOPERATIVE 2024-05-29 13:12:00 Tony Back [facility] US - ANESTHESIA PERFORMED 2024-05-29 13:00:02 Bonnie Cardoso [facility] ORIF, ANKLE 2024-05-29 09:30:00 Tony Back [facility] COMPREHENSIVE METABOLIC PANEL 2024-05-29 05:27:00 Elsa Field [facility] TYPE AND SCREEN 2024-05-29 05:27:00 Gabriela West [facility] COMPLETE BLOOD COUNT W/DIFF AND PLATELET 2024-05-29 05:27:00 Elsa Field [facility] COMPLETE BLOOD COUNT 2024-05-29 05:27:00 Elsa Field [facility] AUTOMATED DIFFERENTIAL 2024-05-29 05:27:00 Emir [facility] PROTIME-INR 2024-05-28 13:44:00 Baron Gaytan [facility] COMPREHENSIVE METABOLIC PANEL 2024-05-28 02:10:00 Elsa Field [facility] COMPLETE BLOOD COUNT W/DIFF AND PLATELET 2024-05-28 02:10:00 Elsa Field [facility] COMPLETE BLOOD COUNT 2024-05-28 02:10:00 Emir [facility] AUTOMATED DIFFERENTIAL 2024-05-28 02:10:00 Elsa Field [facility] EEG CONTINUOUS MONITORING 2024-05-27 21:50:00 Betty Parker [facility] COMPREHENSIVE METABOLIC PANEL 2024-05-27 04:28:00 Elsa Field [facility] COMPLETE BLOOD COUNT W/DIFF AND PLATELET 2024-05-27 04:28:00 Elsa Field [facility] COMPLETE BLOOD COUNT 2024-05-27 04:28:00 Emir [facility] AUTOMATED DIFFERENTIAL 2024-05-27 04:28:00 Emir [facility] COMPREHENSIVE METABOLIC PANEL 2024-05-26 01:54:00 Emir [facility] COMPLETE BLOOD COUNT W/DIFF AND PLATELET 2024-05-26 01:54:00 Emir [facility] COMPLETE BLOOD COUNT 2024-05-26 01:54:00 Elsa Field [facility] AUTOMATED DIFFERENTIAL 2024-05-26 01:54:00 Emir [facility] XR ANKLE 3+ VIEWS RIGHT 2024-05-25 13:00:00 Kevin Villegas [facility] CT ANKLE RIGHT WO IV CONTRAST 2024-05-25 12:46:55 Kevin Villegas [facility] COMPREHENSIVE METABOLIC PANEL 2024-05-25 02:37:00 Emir [facility] COMPLETE BLOOD COUNT W/DIFF AND PLATELET 2024-05-25 02:35:00 Emir [facility] PLATELET COUNT MANUAL 2024-05-25 02:35:00 Gabriela West [facility] COMPLETE BLOOD COUNT 2024-05-25 02:35:00 Emir [facility] AUTOMATED DIFFERENTIAL 2024-05-25 02:35:00 Emir [facility] POTASSIUM LEVEL 2024-05-24 08:38:00 Gabriela West [facility] SODIUM LEVEL 2024-05-24 08:38:00 Gabriela West [facility] COMPREHENSIVE METABOLIC PANEL 2024-05-24 04:25:00 Elsa Field [facility] HEMOGLOBIN A1C 2024-05-24 04:25:00 Gabriela West [facility] COMPLETE BLOOD COUNT W/DIFF AND PLATELET 2024-05-24 04:25:00 Elsa Field [facility] PT AND PTT 2024-05-24 04:25:00 Elsa Field [facility] COMPLETE BLOOD COUNT 2024-05-24 04:25:00 Elsa Field [facility] AUTOMATED DIFFERENTIAL 2024-05-24 04:25:00 Elsa Field [facility] UA WITH CULTURE IF INDICATED 2024-05-23 21:39:[address] [facility] IV [facility]AST 2024-05-23 05:42:00 Elsa Field [facility] TYPE AND SCREEN 2024-05-23 02:56:00 Elsa Field [facility] TROPONIN I HIGH SENSITIVITY CARESET (1ST HR) 2024-05-23 02:56:00 [facility]OT [facility]+ VIEWS RIGHT 2024-05-23 02:28:38 [facility] ANKLE 3+ VIEWS RIGHT 2024-05-23 02:28:07 [facility] TIBIA FIBULA 2 VIEWS RIGHT 2024-05-23 02:26:49 [facility] THROMBOELASTOGRAPH RAPID 2024-05-23 01:56:00 Elsa Field [facility] BASIC METABOLIC PANEL 2024-05-23 01:55:00 [facility] HEPATIC FUNCTION PANEL 2024-05-23 01:55:00 [facility] ETHANOL LEVEL 2024-05-23 01:55:00 Santino [facility] CREATINE KINASE (CK TOTAL) 2024-05-23 01:55:00 [facility] COMPLETE BLOOD COUNT W/DIFF AND PLATELET 2024-05-23 01:55:00 Santino [facility] TROPONIN I HIGH SENSITIVITY CARESET 2024-05-23 01:55:00 Santino Ashajayden Mims [facility] TROPONIN I HIGH SENSITIVITY CARESET (BASELINE) 2024-05-23 01:55:00 Santino Ashajayden Mims [facility] LACTIC ACID WITH 2 HOUR REFLEX 2024-05-23 01:55:00 Licha Dejayden Mims [facility] PT AND PTT 2024-05-23 01:55:00 Elsa Field [facility] COMPLETE BLOOD COUNT 2024-05-23 01:55:00 Santino Ashajayden Mims [facility] AUTOMATED DIFFERENTIAL 2024-05-23 01:55:00 Santino Asha [facility] ECG 12-LEAD 2024-05-23 01:53:02 Santino Ashajayden Mims [facility] CT EXTERNAL HEAD 2024-05-22 00:05:00 Lizette Guajardo [facility] CT TRAUMA THORAX W CONTRAST 2023-11-05 04:16:[address] [facility] CT TRAUMA THORACIC SPINE WO CONTRAST 2023-11-05 04:16:[address] [facility] CT TRAUMA ABDOMEN PELVIS W CONTRAST 2023-11-05 04:16:[address] [facility] CT TRAUMA LUMBAR SPINE WO CONTRAST 2023-11-05 04:16:[address] [facility] CT MAXILLOFACIAL/MANDIBLE WO CONTRAST 2023-11-05 04:15:[address] [facility] CT TRAUMA CERVICAL SPINE WO CONTRAST 2023-11-05 04:15:[address] [facility] XR KNEE 3 VW RIGHT 2023-11-05 02:46:[address] [facility] URINALYSIS 2023-11-05 02:30:[address] [facility] LIPASE 2023-11-05 02:24:[address] [facility] MAGNESIUM 2023-11-05 02:24:[address] [facility] COMP. METABOLIC PANEL ([id number]) 2023-11-05 02:24:[address] [facility] CBC WITH DIFF 2023-11-05 02:24:[address] [facility] REFERRAL- REQUEST/RESPONSE 2023-09-12 20:19:10 Doctor Unassigned, [facility] REFERRAL- REQUEST/RESPONSE 2023-09-02 18:58:35 Doctor Unassigned, [facility] TRANSTHORACIC ECHO (TTE) COMPLETE W/ CONTRAST 2023-08-30 15:25:00 Jose, [facility] MYOCARDIUM PERFUSION STRESS AND REST 2023-08-30 14:40:00 Jose, [facility] MYOCARDIUM PERFUSION STRESS AND REST 2023-08-30 14:40:00 Jose, [facility] MYOCARDIUM PERFUSION STRESS AND REST 2023-08-30 14:40:00 Jose, [facility] MYOCARDIUM PERFUSION STRESS AND REST 2023-08-30 14:40:00 Jose, [facility] REFERRAL- REQUEST/RESPONSE 2023-06-21 06:01:00 Doctor Unassigned, [facility] REFERRAL- REQUEST/RESPONSE 2023-06-03 06:01:00 Doctor Unassigned, [facility] ADVANCE DIRECTIVE 2023-03-16 06:01:00 Doctor Unassigned, [facility] MAGNESIUM 2023-03-10 09:42:00 Jayme Seay [facility] BASIC METABOLIC PANEL (NA, K, CL, CO2, GLUCOSE, BUN, CREATININE, CA) 2023-03-10 09:42:00 Jayme Seay [facility] CBC WITH DIFF 2023-03-10 09:42:[address] [facility] MAGNESIUM 2023-03-09 11:08:00 [facility]OLIC PANEL (NA, K, CL, CO2, GLUCOSE, BUN, CREATININE, CA) 2023-03-09 11:08:00 Jayme Seay [facility] CBC WITH DIFF 2023-03-09 11:08:[address] [facility] COMP. METABOLIC PANEL ([id number]) 2023-03-05 09:46:[address] [facility] CBC WITH DIFF 2023-03-05 09:46:[address] [facility] BLOOD CULTURE SCREEN 2023-03-05 00:38:00 Dionte [facility] BLOOD CULTURE SCREEN 2023-03-05 00:31:00 Dionte [facility] CT STROKE ANGIOGRAM HEAD 2023-03-04 19:07:53 [facility]KE [facility]GIO[facility] NECK 2023-03-04 19:07:53 Johnny [facility] CT STROKE HEAD WO CONTRAST 2023-03-04 19:06:48 Johnny [facility] TROPONIN I 2023-03-04 18:49:00 [facility] BASIC METABOLIC PANEL (NA, K, CL, CO2, GLUCOSE, BUN, CREATININE, CA) 2023-03-04 18:49:00 Dionte [facility] CBC WITHOUT DIFF 2023-03-04 18:49:00 [facility] / INR 2023-03-04 18:49:00 Johnny [facility] ACTIVATED PARTIAL THRMPLAS NBA 2023-03-04 18:49:00 Lisa Turner [facility] HB INDIRECT ANTIGLOBULIN TEST 2023-03-04 18:49:[address] [facility] POCT GLUCOSE (AUTOMATED) 2023-03-04 18:43:00 Lisa Turner [facility] CBC WITH DIFF 2023-03-04 11:12:00 Dionte [facility] BASIC METABOLIC PANEL (NA, K, CL, CO2, GLUCOSE, BUN, CREATININE, CA) 2023-03-04 11:12:00 Dionte [facility] MAGNESIUM 2023-03-04 11:12:00 Dionte [facility] PHOSPHORUS 2023-03-04 11:12:00 Gordomalcolm [facility] PHOSPHORUS 2023-03-04 11:12:00 Dionte [facility] MAGNESIUM 2023-03-04 11:12:00 Dionte [facility] BASIC METABOLIC PANEL (NA, K, CL, CO2, GLUCOSE, BUN, CREATININE, CA) 2023-03-04 11:12:00 Dionte [facility] CBC WITH DIFF 2023-03-04 11:12:00 Dionte [facility] XR KUB 2023-03-03 09:03:00 Loghin [facility] XR KUB 2023-03-03 09:03:00 Loghin [facility] XR KUB 2023-03-03 08:46:00 Loghin, [facility] XR KUB 2023-03-03 08:46:00 Loghin, [facility] XR KUB 2023-03-03 07:38:00 Loghin, [facility] XR KUB 2023-03-03 07:38:00 Loghin, [facility] XR ABDOMEN 1 VW 2023-03-03 05:28:00 Gordomalcolm [facility] XR ABDOMEN 1 VW 2023-03-03 05:28:00 Dionte [facility] PROTHROMBIN TIME / INR 2023-03-02 19:10:[address] [facility] PROTHROMBIN TIME / INR 2023-03-02 19:10:[address] [facility] IRON PANEL 2023-03-02 10:36:[address] [facility] FERRITIN SERUM 2023-03-02 10:36:[address] [facility] CBC WITH DIFF 2023-03-02 10:36:[address] [facility] BASIC METABOLIC PANEL (NA, K, CL, CO2, GLUCOSE, BUN, CREATININE, CA) 2023-03-02 10:36:00 Vincent, Carlos Doran [facility] MAGNESIUM 2023-03-02 10:36:00 Vincent, Carlos Doran [facility] PHOSPHORUS 2023-03-02 10:36:00 Vincent, Carlos Doran [facility] PHOSPHORUS 2023-03-02 10:36:00 Vincent, Carlos Doran [facility] MAGNESIUM 2023-03-02 10:36:00 Vincent, Carlos Doran [facility] FERRITIN SERUM 2023-03-02 10:36:[address] [facility] BASIC METABOLIC PANEL (NA, K, CL, CO2, GLUCOSE, BUN, CREATININE, CA) 2023-03-02 10:36:00 Vincent, Carlos Doran [facility] IRON PANEL 2023-03-02 10:36:00 Vincent, Carlos Doran [facility] CBC WITH DIFF 2023-03-02 10:36:[address] [facility] XR CHEST 1 VW 2023-03-02 06:52:[address] [facility] XR CHEST 1 VW 2023-03-02 06:52:[address] [facility] CBC WITHOUT DIFF 2023-03-01 23:03:00 Vincent, Carlos Doran [facility] CBC WITHOUT DIFF 2023-03-01 23:03:[address] [facility] [place] MODIFIED BARIUM SWALLOW 2023-03-01 20:00:[address] [facility] [place] MODIFIED BARIUM SWALLOW 2023-03-01 20:00:[address] [facility] TRANSFUSE PACKED RBC 2023-03-01 14:50:[address] [facility] TRANSFUSE PACKED RBC 2023-03-01 14:50:00 [facility] PREPARE PACKED RBC 2023-03-01 14:31:00 [facility] PREPARE PACKED RBC 2023-03-01 14:31:00 [facility] AMMONIA, PLASMA 2023-03-01 11:20:[address] [facility] AMMONIA, PLASMA 2023-03-01 11:20:[address] [facility] CBC WITH DIFF 2023-03-01 10:47:[address] [facility] BASIC METABOLIC PANEL (NA, K, CL, CO2, GLUCOSE, BUN, CREATININE, CA) 2023-03-01 10:47:[address] [facility] MAGNESIUM 2023-03-01 10:47:[address] [facility] MAGNESIUM 2023-03-01 10:47:00 Vincent, Carlos Doran [facility] BASIC METABOLIC PANEL (NA, K, CL, CO2, GLUCOSE, BUN, CREATININE, CA) 2023-03-01 10:47:00 Vincent, Carlos Doran [facility] CBC WITH DIFF 2023-03-01 10:47:[address] [facility] CBC WITH DIFF 2023-02-28 09:36:[address] [facility] MAGNESIUM 2023-02-28 09:36:00 Scott [facility] COMP. METABOLIC PANEL ([id number]) 2023-02-28 09:36:00 [facility] / [facility]R 2023-02-28 09:36:00 Dany [facility] MAGNESIUM 2023-02-28 09:36:00 [facility] COMP. METABOLIC PANEL ([id number]) 2023-02-28 09:36:00 [facility] CBC WITH DIFF 2023-02-28 09:36:00 [facility] PROT[facility] / INR 2023-02-28 09:36:00 [facility] WITHOUT DIFF 2023-02-28 01:06:00 [facility] CBC WITHOUT DIFF 2023-02-28 01:06:00 [facility] TRANSF[facility] PACKED RBC 2023-02-27 21:27:[address] [facility] TRANSFUSE PACKED RBC 2023-02-27 21:27:00 [facility] PREPARE [facility]ACKED RBC 2023-02-27 21:19:05 [facility] 2023-02-27 21:19:[address] [facility] PHOSPHORUS 2023-02-27 19:13:[address] [facility] ABORH CONFIRMATION (LAB ONLY) 2023-02-27 19:13:[address] [facility] PHOSPHORUS 2023-02-27 19:13:[address] [facility] ABORH CONFIRMATION (LAB ONLY) 2023-02-27 19:13:00 Julito [facility] HB ABO GROUPING 2023-02-27 18:39:00 [facility] 2023-02-27 18:39:00 Maycol [facility] SPUTUM CULTURE 2023-02-27 17:28:00 [facility] SPUT[facility]URE 2023-02-27 17:28:00 [facility] US ABDOMEN LIMITED 2023-02-27 15:43:53 Scott [facility] US ABDOMEN LIMITED 2023-02-27 15:43:53 [facility] FIBRINOGEN 2023-02-27 14:44:[address] [facility] ACTIVATED PARTIAL THRMPLAS NBA 2023-02-27 14:44:[address] [facility] D-DIMER 2023-02-27 14:44:00 [facility] DIFF [facility]SULT BY PATHOLOGIST 2023-02-27 14:44:[address] [facility] CBC WITH DIFF 2023-02-27 14:44:00 [facility] DIFF [facility]SULT INTERPRETATION 2023-02-27 14:44:00 [facility] DIFF CONSULT BY PATHOLOGIST 2023-02-27 14:44:00 [facility] CBC WITH DIFF 2023-02-27 14:44:00 [facility] D-DIMER 2023-02-27 14:44:00 [facility] ACTIVATED PARTIAL THRMPLAS NBA 2023-02-27 14:44:00 [facility] FIBRINOGEN 2023-02-27 14:44:00 [facility] DIFF CONSULT INTERPRETATION 2023-02-27 14:44:00 [facility] CBC WITH DIFF 2023-02-27 09:25:00 Dany [facility] MAGNESIUM 2023-02-27 09:25:[facility] 2023-02-27 09:25:00 Dany [facility] COMP. METABOLIC PANEL ([id number]) 2023-02-27 09:25:00 [facility] PROT[facility] / INR 2023-02-27 09:25:00 Dany [facility] BILI UNCONJUGATED/BILI CONJUG 2023-02-27 09:25:00 Dany [facility] PHOSPHORUS 2023-02-27 09:25:00 Dany [facility] MAGNESIUM 2023-02-27 09:25:00 Dany [facility] BILI UNCONJUGATED/BILI CONJUG 2023-02-27 09:25:00 Dany [facility] COMP. METABOLIC PANEL ([id number]) 2023-02-27 09:25:00 [facility] CBC WITH DIFF 2023-02-27 09:25:00 Dany [facility] PROTHROMBIN TIME / INR 2023-02-27 09:25:00 Dany [facility] XR CHEST 1 VW 2023-02-27 05:16:[address] [facility] XR CHEST 1 VW 2023-02-27 05:16:00 Bilal, Ali [facility] AC PANEL 20 + LACTIC ACID 2023-02-27 03:56:00 Bilgabbie Yusuf [facility] AC PANEL 20 + LACTIC ACID 2023-02-27 03:56:00 Peter Yusuf [facility] MAGNESIUM 2023-02-26 11:18:00 Scott [facility] COMP. METABOLIC PANEL ([id number]) 2023-02-26 11:18:00 [facility]UM 2023-02-26 11:18:00 Scott [facility] COMP. METABOLIC PANEL ([id number]) 2023-02-26 11:18:00 Scott [facility] CBC WITH DIFF 2023-02-26 11:13:00 Scott [facility] CBC WITH DIFF 2023-02-26 11:13:00 Scott [facility] SPUTUM CULTURE 2023-02-26 04:05:00 Scott [facility] SPUTUM CULTURE 2023-02-26 04:05:00 Scott [facility] BLOOD CULTURE SCREEN 2023-02-25 23:28:00 Scott [facility] BLOOD CULTURE SCREEN 2023-02-25 23:28:00 Scott [facility] BLOOD CULTURE SCREEN 2023-02-25 23:17:00 Scott [facility] CBC WITHOUT DIFF 2023-02-25 23:17:00 Maycol [facility] BLOOD CULTURE SCREEN 2023-02-25 23:17:00 Scott [facility] CBC WITHOUT DIFF 2023-02-25 23:17:00 Maycol [facility] ACUTE CARE ARTERIAL BLOOD GAS 2023-02-25 16:06:00 [facility] BLOOD GAS 2023-02-25 16:06:[address] [facility] XR CHEST 1 VW 2023-02-25 15:40:00 Maycol [facility] XR CHEST 1 VW 2023-02-25 15:40:00 [facility] CBC WITH DIFF 2023-02-25 10:32:00 [facility] MAGNESIUM 2023-02-25 10:32:00 [facility] COMP. METABOLIC PANEL ([id number]) 2023-02-25 10:32:00 Scott [facility] PHOSPHORUS 2023-02-25 10:32:00 Scott [facility] PHOSPHORUS 2023-02-25 10:32:00 Scott [facility] MAGNESIUM 2023-02-25 10:32:00 [facility]. METABOLIC PANEL ([id number]) 2023-02-25 10:32:00 Scott [facility] CBC WITH DIFF 2023-02-25 10:32:00 Scott [facility] BASIC METABOLIC PANEL (NA, K, CL, CO2, GLUCOSE, BUN, CREATININE, CA) 2023-02-24 18:11:00 Scott [facility] BASIC METABOLIC PANEL (NA, K, CL, CO2, GLUCOSE, BUN, CREATININE, CA) 2023-02-24 18:11:00 Scott [facility] BASIC METABOLIC PANEL (NA, K, CL, CO2, GLUCOSE, BUN, CREATININE, CA) 2023-02-24 09:21:00 [facility] CBC WITH DIFF 2023-02-24 09:21:00 Scott [facility] MAGNESIUM 2023-02-24 09:21:00 Scott [facility] COMP. METABOLIC PANEL ([id number]) 2023-02-24 09:21:00 Scott [facility] PHOSPHORUS 2023-02-24 09:21:00 Scott [facility] PHOSPHORUS 2023-02-24 09:21:00 [facility]UM 2023-02-24 09:21:00 [facility] BASIC METABOLIC PANEL (NA, K, CL, CO2, GLUCOSE, BUN, CREATININE, CA) 2023-02-24 09:21:00 [facility] COMP. METABOLIC PANEL ([id number]) 2023-02-24 09:21:00 [facility] CBC WITH DIFF 2023-02-24 09:21:00 Scott [facility] CBC WITH DIFF 2023-02-23 08:35:00 Scott [facility] MAGNESIUM 2023-02-23 08:35:00 [facility] COMP. METABOLIC PANEL ([id number]) 2023-02-23 08:35:00 [facility] 2023-02-23 08:35:00 [facility] COMP. METABOLIC PANEL ([id number]) 2023-02-23 08:35:00 [facility] CBC WITH DIFF 2023-02-23 08:35:00 [facility] AC PANEL 20 + LACTIC ACID 2023-02-22 21:51:00 Oniel [facility] AC PANEL 20 + LACTIC ACID 2023-02-22 21:51:[address] [facility] AC PANEL 20 + LACTIC ACID 2023-02-22 16:21:00 Kim [facility] AC PANEL 20 + LACTIC ACID 2023-02-22 16:21:00 Kim [facility] HIT - AB 2023-02-22 15:18:00 [facility] 2023-02-22 15:18:00 [facility] - [facility] 2023-02-22 15:18:00 [facility] FOR [facility] 2023-02-22 15:18:[address] [facility] CBC WITHOUT DIFF 2023-02-22 10:07:00 Kim [facility] MAGNESIUM 2023-02-22 10:07:00 Kim [facility] COMP. METABOLIC PANEL ([id number]) 2023-02-22 10:07:00 Kim [facility] PROTHROMBIN TIME / INR 2023-02-22 10:07:00 Kim Francis [facility] MAGNESIUM 2023-02-22 10:07:00 Kim Francis [facility] COMP. METABOLIC PANEL ([id number]) 2023-02-22 10:07:00 Kim Frnacis [facility] CBC WITHOUT DIFF 2023-02-22 10:07:00 Kim Francis [facility] PROTHROMBIN TIME / INR 2023-02-22 10:07:00 Kim Francis [facility] ACUTE CARE ARTERIAL BLOOD GAS 2023-02-21 22:48:[address] [facility] ACUTE CARE ARTERIAL BLOOD GAS 2023-02-21 22:48:[address] [facility] XR KUB 2023-02-21 22:37:00 Oniel [facility] XR KUB 2023-02-21 22:37:00 Oniel [facility] XR CHEST 1 VW 2023-02-21 22:34:00 Oniel [facility] XR CHEST 1 VW 2023-02-21 22:34:00 Oniel [facility] INTUBATION 2023-02-21 21:08:00 Abu-Luz Garciajinny [facility] INTUBATION 2023-02-21 21:08:00 Abu-Jose mattiejinny [facility] AC PANEL 20 + LACTIC ACID 2023-02-21 20:24:00 Dustin [facility] AC PANEL 20 + LACTIC ACID 2023-02-21 20:24:00 Dustin [facility] AC PANEL 20 + LACTIC ACID 2023-02-21 17:09:00 Oniel [facility] AC PANEL 20 + LACTIC ACID 2023-02-21 17:09:[address] [facility] HB ECG ROUTINE & RHYTHM STRIP 2023-02-21 15:29:31 [facility] & RHYTHM STRIP 2023-02-21 15:29:[address] [facility] TRANSTHORACIC ECHO (TTE) COMPLETE W/ CONTRAST 2023-02-21 15:28:25 Dany [facility] TRANSTHORACIC ECHO (TTE) COMPLETE W/ CONTRAST 2023-02-21 15:28:25 Dany [facility] XR CHEST 1 VW 2023-02-21 11:49:00 Dany [facility] XR CHEST 1 VW 2023-02-21 11:49:00 Dany [facility] CBC WITH DIFF 2023-02-21 10:30:00 Dany [facility] BASIC METABOLIC PANEL (NA, K, CL, CO2, GLUCOSE, BUN, CREATININE, CA) 2023-02-21 10:30:00 Dany [facility] HEPATIC FUNCTION PANEL (72809) (ALB,T.PRO,BILI T,BU/BC,ALT,AST,ALK PHOS) 2023-02-21 10:30:00 Dany [facility] PROTHROMBIN TIME / INR 2023-02-21 10:30:00 Dany [facility] HEPATIC FUNCTION PANEL (78408) (ALB,T.PRO,BILI T,BU/BC,ALT,AST,ALK PHOS) 2023-02-21 10:30:00 Dany [facility] BASIC METABOLIC PANEL (NA, K, CL, CO2, GLUCOSE, BUN, CREATININE, CA) 2023-02-21 10:30:00 Dany [facility] CBC WITH DIFF 2023-02-21 10:30:00 Dany [facility] PROTHROMBIN TIME / INR 2023-02-21 10:30:00 Barratt, [facility] XR KUB 2023-02-20 23:05:00 [facility] XR KUB 2023-02-20 23:05:00 [facility] XR KUB 2023-02-20 22:55:[address] [facility] XR KUB 2023-02-20 22:55:[address] [facility] XR CHEST 1 VW 2023-02-20 22:49:[address] [facility] XR CHEST 1 VW 2023-02-20 22:49:[address] [facility] CT HEAD WO CONTRAST 2023-02-20 20:54:12 Adan [facility] CT HEAD WO CONTRAST 2023-02-20 20:54:12 Adan [facility] AC PANEL 20 + LACTIC ACID 2023-02-20 19:54:[address] [facility] AC PANEL 20 + LACTIC ACID 2023-02-20 19:54:[address] [facility] AMMONIA, PLASMA 2023-02-20 18:47:00 Adan [facility] AMMONIA, PLASMA 2023-02-20 18:47:00 Adan [facility] BASIC METABOLIC PANEL (NA, K, CL, CO2, GLUCOSE, BUN, CREATININE, CA) 2023-02-20 18:46:[address] [facility] HIV 1/2 AG-AB WITH REFLEX 2023-02-20 18:46:00 [facility]OL[facility] (NA, K, CL, CO2, GLUCOSE, BUN, CREATININE, CA) 2023-02-20 18:46:[address] [facility] HIV 1/2 AG-AB WITH REFLEX 2023-02-20 18:46:00 [facility] GLUCOSE (AUTOMATED) 2023-02-20 16:12:00 Julito [facility] POCT GLUCOSE (AUTOMATED) 2023-02-20 16:12:00 Nagan, [facility] PHOSPHORUS 2023-02-20 09:25:[address] [facility] MAGNESIUM 2023-02-20 09:25:[address] [facility] BASIC METABOLIC PANEL (NA, K, CL, CO2, GLUCOSE, BUN, CREATININE, CA) 2023-02-20 09:25:[address] [facility] CBC WITH DIFF 2023-02-20 09:25:[address] [facility] PROTHROMBIN TIME / INR 2023-02-20 09:25:[address] [facility] PHOSPHORUS 2023-02-20 09:25:[address] [facility] MAGNESIUM 2023-02-20 09:25:[address] [facility] BASIC METABOLIC PANEL (NA, K, CL, CO2, GLUCOSE, BUN, CREATININE, CA) 2023-02-20 09:25:[address] [facility] CBC WITH DIFF 2023-02-20 09:25:[address] [facility] PROTHROMBIN TIME / INR 2023-02-20 09:25:00 [facility] ABDOMEN PELVIS WO CONTRAST 2023-02-20 07:07:32 Dany [facility] CT ABDOMEN PELVIS WO CONTRAST 2023-02-20 07:07:32 Dany [facility] XR CHEST 1 VW 2023-02-19 22:17:00 Yusuf [facility] XR CHEST 1 VW 2023-02-19 22:17:[address] [facility] AMMONIA, PLASMA 2023-02-19 13:30:[address] [facility] AMMONIA, PLASMA 2023-02-19 13:30:[address] [facility] COMP. METABOLIC PANEL (23728) 2023-02-19 12:47:[address] [facility] OSMOLALITY, SERUM OR PLASMA 2023-02-19 12:47:[address] [facility] HEPATIC FUNCTION PANEL (87315) (ALB,T.PRO,BILI T,BU/BC,ALT,AST,ALK PHOS) 2023-02-19 12:47:00 [facility] OSMOLALITY, SERUM OR PLASMA 2023-02-19 12:47:[address] [facility] HEPATIC FUNCTION PANEL (94569) (ALB,T.PRO,BILI T,BU/BC,ALT,AST,ALK PHOS) 2023-02-19 12:47:00 [facility] COMP. METABOLIC PANEL (86450) 2023-02-19 12:47:[address] [facility] BLOOD CULTURE SCREEN 2023-02-19 09:50:00 [facility]LOOD CULT[facility] SCREEN 2023-02-19 09:50:00 Dany [facility] BLOOD CULTURE SCREEN 2023-02-19 09:49:00 [facility] BLOOD CULT[facility] SCREEN 2023-02-19 09:49:00 [facility] URINE CULTURE 2023-02-19 09:17:00 [facility]INE CULTURE 2023-02-19 09:17:[address] [facility] US RETROPERITONEAL LIMITED 2023-02-19 07:46:[address] [facility] US RETROPERITONEAL LIMITED 2023-02-19 07:46:[address] [facility] SODIUM, URINE RANDOM 2023-02-19 07:21:[address] [facility] POTASSIUM, URINE RANDOM 2023-02-19 07:21:[address] [facility] CREATININE, URINE RANDOM 2023-02-19 07:21:[address] [facility] URINALYSIS 2023-02-19 07:21:[address] [facility] URINALYSIS 2023-02-19 07:21:00 [facility] CREATININE, URINE RANDOM 2023-02-19 07:21:00 Morakinyo, [facility] POTASSIUM, URINE RANDOM 2023-02-19 07:21:00 Alpesh Cookmonique [facility] SODIUM, URINE RANDOM 2023-02-19 07:21:00 [facility] HEPATITIS B SURFACE ANTIBODY 2023-02-19 07:11:00 [facility]IRUS (HCV) BY QUANTITATIVE NAAT 2023-02-19 07:11:00 [facility] HCV ANTIBODY 2023-02-19 07:11:00 Maycol [facility] ETHANOL 2023-02-19 07:11:00 Dany [facility] MAGNESIUM 2023-02-19 07:11:00 Maycol [facility] PHOSPHORUS 2023-02-19 07:11:00 Maycol [facility] HEPATITIS B SURFACE ANTIGEN 2023-02-19 07:11:00 Adan [facility] HBC ANTIBODY (IGM & IGG) 2023-02-19 07:11:00 Adan [facility] SYPHILIS IGG/IGM 2023-02-19 07:11:00 Dany [facility] PHOSPHORUS 2023-02-19 07:11:00 Maycol [facility] MAGNESIUM 2023-02-19 07:11:00 Maycol [facility] ETHANOL 2023-02-19 07:11:00 Dany [facility] HEPATITIS B SURFACE ANTIBODY 2023-02-19 07:11:00 Maycol [facility] HEPATITIS B SURFACE ANTIGEN 2023-02-19 07:11:00 Adan [facility] HCV ANTIBODY 2023-02-19 07:11:00 Maycol [facility] HBC ANTIBODY (IGM & IGG) 2023-02-19 07:11:00 Adan [facility] HEPATITIS C VIRUS (HCV) BY QUANTITATIVE NAAT 2023-02-19 07:11:00 Maycol [facility] SYPHILIS IGG/IGM 2023-02-19 07:11:[address] [facility] XR CHEST 1 VW 2023-02-19 06:36:00 [facility]ST 1 VW 2023-02-19 06:36:[address] [facility] PROTHROMBIN TIME / INR 2023-02-19 05:51:00 [facility] PROTHROMBIN TIME / INR 2023-02-19 05:51:00 [facility] + LACTIC ACID 2023-02-19 05:24:00 [facility] AC PANEL 21 + LACTIC ACID 2023-02-19 05:24:00 [facility] MRSA / MSSA SCREEN BY PCRPAULA 2023-02-19 05:20:00 [facility] COMP. METABOLIC PANEL (11935) 2023-02-19 05:20:00 [facility] HEPATIC FUNCTION PANEL (76527) (ALB,T.PRO,BILI T,BU/BC,ALT,AST,ALK PHOS) 2023-02-19 05:20:00 [facility] CBC WITH DIFF 2023-02-19 05:20:00 Joyce [facility] HEPATITIS B CORE ANTIBODY IGM 2023-02-19 05:20:00 [facility] HEPATIT[facility] B SURFACE ANTIGEN 2023-02-19 05:20:00 [facility] HEPATITIS A VIRUS ANTIBODY IGM 2023-02-19 05:20:00 Maycol [facility] HEPATIC FUNCTION PANEL (98439) (ALB,T.PRO,BILI T,BU/BC,ALT,AST,ALK PHOS) 2023-02-19 05:20:00 Joyce [facility] COMP. METABOLIC PANEL (67840) 2023-02-19 05:20:[address] [facility] CBC WITH DIFF 2023-02-19 05:20:[address] [facility] HEPATITIS B SURFACE ANTIGEN 2023-02-19 05:20:[address] [facility] HEPATITIS A VIRUS ANTIBODY IGM 2023-02-19 05:20:[address] [facility] HEPATITIS B CORE ANTIBODY IGM 2023-02-19 05:20:[address] [facility] MRSA / MSSA SCREEN BY PCRPAULA 2023-02-19 05:20:[address] [facility] DISCLOSURE AND CONSENT, MEDICAL AND SURGICAL PROCEDURES 2023-02-19 05:01:00 Doctor Unassigned, [place] [facility] NO SHOW OR MISSED APPOINTMENT POLICY ACKNOWLEDGEMENT 2022-11-18 21:24:55 Doctor Unassigned, [facility] PATIENT FINANCIAL POLICY 2022-11-18 21:24:37 Doctor Unassigned, [facility] NOTICE OF PRIVACY PRACTICES 2022-11-18 21:24:20 Doctor Unassigned, [facility] CONSENT/REFUSAL FOR DIAGNOSIS AND TREATMENT 2022-11-18 21:24:05 Doctor Unassigned, [facility] ASSIGNMENT OF BENEFITS 2022-11-18 21:23:50 Doctor Unassigned, [facility] Comprehensive Metabolic Panel [facility] Complete Blood Count w/Diff and Platelet [facility] EEG continuous monitoring [facility] Hospital Encounters Start Date/Time End Date/Time Encounter Type Admission Type Attending [facility] Care Facility Care Department Encounter ID Source 2024-07-05 16:48:00 2024-07-09 17:10:00 Inpatient PANDA VARGAS [facility] [id number] [facility] 2023-09-02 00:00:00 2024-06-09 07:49:00 Orders Only Doctor Unassigned, [place] Doctor Unassigned, [place]aren [facility] 1.2.840.114 350.1.13.10 4.2.7.2.686 [id number] [facility] 2023-09-12 00:00:00 2024-06-09 07:45:19 Orders Only Doctor Unassigned, [place] Doctor Unassigned, [facility] ([place] 1.2.840.114 350.1.13.10 4.2.7.2.686 [id number] [facility] 2024-05-23 01:00:00 2024-05-31 16:26:00 Hospital Encounter Casandra, Lizette Contreras, Nikita Duval, Jesús Yun, Alejandro Shearer, Betty Lee [facility] 1.2.840.114 350.1.13.70 8.2.7.2.686 [id number] [facility] [place] [place] 2024-05-23 01:00:00 2024-05-31 16:26:00 Inpatient Trauma Center BETTY PARKER [facility] General Medicine [id number] [facility] 2024-05-23 01:36:31 2024-05-23 01:36:31 Outpatient IEEPIC IEEPIC [id number] [facility] [place] [place] 2024-05-23 01:56:40 2024-05-22 23:59:00 Outpatient [facility] [id number] [facility] 2024-05-23 01:56:40 2024-05-22 23:59:00 Outpatient [facility] [id number] [facility] 2024-05-23 01:53:13 2024-05-22 23:59:00 Outpatient [facility] [id number] [facility] 2024-05-23 01:36:31 2024-05-22 23:59:00 Outpatient [facility] [id number] [facility] 2023-11-04 20:49:00 2023-11-05 01:51:00 Emergency X CORIE, ANDREW EDWARDS [facility] ERT [id number] [facility] 2023-11-04 20:49:00 2023-11-05 01:51:00 Emergency Andrew Montanez [facility] 1.2.840.114 350.1.13.10 4.2.7.2.686 [id number] [facility] 2023-09-28 13:00:00 2023-09-28 13:00:00 Outpatient R BRENDEN HICKEY KHALED [facility] [id number] [facility] 2023-09-22 00:00:00 2023-09-22 15:52:01 Telephone Brenden Hickey [facility] 1.2.840.114 350.1.13.10 4.2.7.2.686 [id number] [facility] 2023-08-31 00:00:00 2023-08-31 10:42:14 [facility] 1.2.840.114 350.1.13.10 4.2.7.2.686 [id number] [facility] 2023-08-30 07:35:05 2023-08-30 23:59:00 [facility] 1.2.840.114 350.1.13.10 4.2.7.2.686 [id number] [facility] 2023-08-30 07:34:50 2023-08-30 07:34:50 Hospital Encounter Jose [facility] 1.2.840.114 350.1.13.10 4.2.7.2.686 [id number] [facility] 2023-08-30 07:34:43 2023-08-30 07:34:43 Hospital Encounter Jose [facility] 1.2.840.114 350.1.13.10 4.2.7.2.686 [id number] [facility] 2023-08-30 07:34:36 2023-08-30 07:34:36 Hospital Encounter Jose [facility] 1.2840.114 350.1.13.10 4.2.7.2.686 [id number] [facility] 2023-08-30 07:34:05 2023-08-30 07:34:05 Outpatient R [facility] [id number] [facility] 2023-08-30 07:34:05 2023-08-30 07:34:05 Hospital Encounter Jose [facility] 1.2840.114 350.1.13.10 4.2.7.2.686 [id number] [facility] 2023-07-21 08:00:00 2023-07-21 08:00:00 Outpatient R [facility] [id number] [facility] 2023-07-13 15:40:00 2023-07-13 15:55:21 Outpatient R [facility] [id number] [facility] 2023-07-13 15:40:00 2023-07-13 15:55:21 [facility] 1.2840.114 350.1.13.10 4.2.7.2.686 [id number] [facility] 2023-06-21 00:00:00 2023-06-21 00:00:00 Orders Only Doctor Unassigned, Sewaren [facility] 1.2840.114 350.1.13.10 4.2.7.2.686 [id number] [facility] 2023-06-03 00:00:00 2023-06-03 00:00:00 Orders Only Doctor Unassigned, Sewaren [facility] 1.2840.114 350.1.13.10 4.2.7.2.686 [id number] [facility] 2023-03-16 00:00:00 2023-03-16 00:00:00 Orders Only Doctor Unassigned, Sewaren [facility] 1.2840.114 350.1.13.10 4.2.7.2.686 [id number] [facility] 2023-03-11 00:00:00 2023-03-11 00:00:00 Transition of Care Cielo Joy PLALILIAN 1.20.114 350.1.13.10 4.2.7.2.686 [id number] [facility] 2023-02-18 23:56:00 2023-03-10 14:51:00 Inpatient U [facility] [id number] [facility] 2023-02-18 23:56:00 2023-03-10 14:51:00 Hospital Encounter Zion Vila, Tony Ballard, Alan [facility] 1.0.114 350.1.13.10 4.2.7.2.686 [id number] [facility] 2023-03-03 00:00:00 2023-03-03 00:00:00 Travel 1.2.840.1 [id number] 3.104.2.7 .[id number] .8 1.2.0.114 350.1.13.10 4.2.7.3.698 [id number] [facility] 2023-02-21 16:17:36 2023-02-21 16:17:36 Anesthesia Event Ute Spencer 1.2.840.1 [id number] 3.104.2.7 .3.434511 .8 [id number] [facility] 2023-02-21 00:00:00 2023-02-21 00:00:00 Case Management Zeynep Orozco 1.2.840.1 [id number] 3.104.2.7 .[id number] [facility] 2022-11-18 16:27:08 2022-11-18 23:59:00 Outpatient R RADIOLOGY [facility] [id number] [facility] 2022-11-18 16:27:08 2022-11-18 23:59:00 Hospital Encounter Radiology [facility] 1.2.840.114 350.1.13.10 4.2.7.2.686 [id number] [facility] 2022-10-08 05:00:00 2022-10-08 05:00:00 Outpatient ABBI ALICIA [facility] [id number] [facility] Results Test Description Test Time Test Comments Results Result Co mments Source [facility] TRAUMA CERVICAL SPINE WO [id number] 05:33:21 Ordering physician: ANDREW MONTANEZ Indication: Acute [...] innormal alignment. Nosignificant central canal stenosis is appreciated.[facility] MAXILLOFACIAL/MANDIBLE WO [id number] 05:31:39ORDERING PHYSICIAN:ANDREW POLK CLINICAL INFORMATION: ? Facial [...] visualized upper cervical spineis also within normal limits.[facility] THORAX W [id number] 05:23:19EXAM: CT TRAUMA THORAX W CONTRAST, CT [...] nodularitypresent of the hepatic parenchyma. The liver ehirycdm80.9 cm in AP lengthand 19 cm in [...] at L4-5. No other high-grade foraminal stenosis. [facility] THORACIC SPINE WO [id number] 05:23:19EXAM: CT TRAUMA THORAX W CONTRAST, CT [...] nodularitypresent of the hepatic parenchyma. The liver dyjskwau69.9 cm in AP lengthand 19 cm in [...] stenosis at L4-5. No other high-grade foraminal stenosis.[facility] ABDOMEN PELVIS W CONTRAST 2023-11-05 05:23:19EXAM: [...] nodularitypresent of the hepatic parenchyma. The liver ggkjkkeh35.9 cm in AP lengthand 19 cm in [...] at L4-5. No other high-grade foraminal stenosis. [facility] LUMBAR SPINE WO [id number] 05:23:19EXAM: CT TRAUMA THORAX W CONTRAST, CT [...] nodularitypresent of the hepatic parenchyma. The liver sbyyijhw53.9 cm in AP lengthand 19 cm in [...] stenosis at L4-5. No other high-grade foraminal stenosis.[facility] CenterXR KNEE 3 VW [id number] 03:27:54 Ordering Physician: FRIDA POLK HISTORY: Right knee pain COMPARISON: none FINDINGS:Three views of the right knee. ?There is no fracture or dislocation. ?Thereis no joint effusion. The joint spaces are normal. ?Soft tissue edema isseen. ?Atherosclerotic calcifications also seen in the arteries. No pubicbone bodies are seen in the soft tissues.[facility] CenterREFERRAL- REQUEST/[id number] 20:19:10Ordered by an unspecified provider.[facility] CenterREFERRAL- REQUEST/[id number] 18:58:35Ordered by an unspecified provider.[facility] CenterTransthoracic echo (TTE)2023-08-30 22:04:01* Test Item Value Reference Range Interpretation Comme nts Height (test code = 5358827890) 70 in Weight (test code = 4453242149) 205 lbs Systolic BP (test code = 8075557372) 163 mmHg Diastolic BP (test code = 4042831963) 97 mmHg Heart Rate (test code = 8607392868) 75 bpm BSA (test code = 8868632527) 2.11 m2 Ao root diam (test code = 2161506710) 3.90 cm Aortic root (test code = 7952090884) 3.9 cm Ao root annulus (test code = 3168932940) 3.9 cm LVOT diameter (test code = 3250971566) 2.18 cm LVOT area (test code = 1456264740) 3.70 cm2 LA size (test code = 4209898335) 4.1 cm LVIDD (test code = 3335947010) 5.70 cm Left Ventricular End Diastolic Volume by Teichholz Method (test code = 1664468) 159.3 mL IVS (test code = 4098059838) 1.29 cm Interventricular Septum Diastolic Thickness by 2D (test code = 2306277) 1.29 cm LVPWD (test code = 5959353561) 1.31 cm PW (test code = 8865314696) 1.31 cm 0.6-1.1 EF(Teich) (test code = 2507709221) 54.20 % LVIDS (test code = 7855700141) 4.10 cm Left Ventricular End Systolic Volume by Teichholz Method (test code = 3073986) 73.0 mL FS (test code = 1433600451) 29 % EF - 2D (test code = 19930052) 54.20 % Pulmonic Regurgitant End Max Velocity (test code = 9049609860) 113.9 cm/s LAV(MOD-sp4) (test code = 6326412146) 42.80 mL E wave decelartion time (test code = 6544924611) 0.14 s MV Peak A Cy (test code = 4626766062) 72.3 cm/s MV stenosis pressure 1/2 time (test code = 8531462969) 43.1 ms MV Peak E Cy (test code = 1428314695) 55.5 cm/s E/A ratio (test code = 9826571617) 0.77 ratio MV Prop V (test code = 1870129005) 34.80 cm/s MV E/e' septal (test code = 2245592976) 8.5 cm/s Tapse (test code = 2718671140) 2.06 cm LVOT stroke volume (test code = 4528482403) 75.00 cm3 LVOT peak cy (test code = 8036172126) 100.6 cm/s LVOT mn grad (test code = 0542017048) 2.0 mmHg AV LVOT peak gradient (test code = 1997094630) 4.0 mmHg LVOT peak VTI (test code = 1372588376) 20.1 cm LV V1 mean (test code = 7407185268) 66.30 cm/s Aortic valve mean velocity (test code = 9928148669) 94.0 cm/s Ao peak cy (test code = 4571437324) 133.1 cm/s Ao VTI (test code = 0331770170) 24.8 cm AV area by cont VTI (test code = 3270111705) 3.0 cm2 AV area peak cy (test code = 5428218262) 2.8 cm2 Ao max PG (test code = 8625600036) 7.10 mm[Hg] AV peak gradient (test code = 2627652424) 7.1 mmHg AV valve area (test code = 9819493739) 3.00 cm2 AV mean gradient (test code = 0070748030) 3.8 mmHg A4C EF (test code = 3695807166) 49.50 % EF(sp4-el) (test code = 9942712805) 50.00 % SV(MOD-sp4) (test code = 8210979086) 75.30 mL SV(sp4-el) (test code = 9487517199) 78.70 mL Radiology Study observation (narrative) (test code = 18012-7) BOBBY (test code = BOBBY) ?Left?Ventricle: Left [...] lateral and apex.All other segments are normal. [facility] CenterBLOOD CULTURE [id number] 06:01:28* Test Item Value Reference Range Interpretation Comme nts Blood Culture-Aerobic (test code = 11469-6) No organisms isolated No growth Previous preliminary verified result was Culture In Progress on 03/05/2023 at 0301 CSTPrevious preliminary verified result was No growth at 24 hours on 03/06/2023 at 0001 CSTPrevious preliminary verified result was No growth at 48 hours on 03/07/2023 at 0001 CSTPrevious preliminary verified result was No growth at 72 hours on 03/08/2023 at 0001 PATIENT FLOW COORDINATOR Blood Culture-Anaerobic (test code = 89504-0) No organisms isolated No growth Previous preliminary verified result was Culture In Progress on 03/05/2023 at 0301 CSTPrevious preliminary verified result was No growth at 24 hours on 03/06/2023 at 0001 CSTPrevious preliminary verified result was No growth at 48 hours on 03/07/2023 at 0001 CSTPrevious preliminary verified result was No growth at 72 hours on 03/08/2023 at 0001 PATIENT FLOW COORDINATOR Lab Interpretation (test code = 26760-2) Normal [facility] CULTURE [id number] 06:01:28* Test Item Value Reference Range Interpretation Comme nts Blood Culture-Aerobic (test code = 58860-1) No organisms isolated No growth Previous preliminary verified result was Culture In Progress on 03/05/2023 at 0301 CSTPrevious preliminary verified result was No growth at 24 hours on 03/06/2023 at 0001 CSTPrevious preliminary verified result was No growth at 48 hours on 03/07/2023 at 0001 CSTPrevious preliminary verified result was No growth at 72 hours on 03/08/2023 at 0001 PATIENT FLOW COORDINATOR Blood Culture-Anaerobic (test code = 88232-3) No organisms isolated No growth Previous preliminary verified result was Culture In Progress on 03/05/2023 at 0301 CSTPrevious preliminary verified result was No growth at 24 hours on 03/06/2023 at 0001 CSTPrevious preliminary verified result was No growth at 48 hours on 03/07/2023 at 0001 CSTPrevious preliminary verified result was No growth at 72 hours on 03/08/2023 at 0001 PATIENT FLOW COORDINATOR Lab Interpretation (test code = 75298-8) Normal [facility] (NA, K, CL, CO2, GLUCOSE, BUN, CREATININE, CA)2023-03-04 20:17:39* Test Item Value Reference Range Interpretation Comme nts NA (test code = 9013749129) 138 mmol/L 135-145 K (test code = 8342629859) 3.7 mmol/L 3.5-5.0 CL (test code = 5516851119) 102 mmol/L 98-108 CO2 TOTAL (test code = 3348450240) 24 mmol/L 23-31 AGAP (test code = 1095032275) 12 2-16 BUN (test code = 1220354815) 32 mg/dL 7-23 H GLUCOSE (test code = 7027430637) 98 mg/dL 70-110 CREATININE (test code = 7853586503) 4.86 mg/dL 0.60-1.25 H CALCIUM (test code = 7830089229) 9.8 mg/dL 8.6-10.6 eGFR (test code = 19035-6) 13.2 mL/min/1.73m2 CKD-EPI eGFR (2020). Assuming creatinine has been stable day-to-day for at least three months, the eGFR indicates Category G5 (<= 14mL/min/1.73 m2) Lab Interpretation (test code = 44516-0) Abnormal [facility]Type [facility] Screen - ONCE [id number] 19:37:00* Test Item Value Reference Range Interpretation Comme nts ABO & RH (test code = 20) O POSITIVE IAT (test code = 1185) Negative [facility] CenterTroponin [id number] 19:23:11* Test Item Value Reference Range Interpretation Comme [facility] TROPONIN I (test code = 1767680822) 0.009 ng/mL <=0.034 BOBBY (test code = [...] of biotin. Lab Interpretation (test code = 63825-0) Normal [facility] CenterProthrombin Time / [id number] 19:05:07* Test Item Value Reference Range Interpretation Comme nts PROTIME PATIENT (test code = 5964-2) 13.9 See_Comment H [Automated [employer] ge] The system which generated this result transmitted reference range: 10.1 - 12.6 Seconds. The reference range was not used to interpret this result as normal/abnormal. INR (test code = 6301-6) 1.2 Normal INR <1.1; Warfarin Therapeutic range 2.0 to 3.0 or 2.5 to 3.5, depending upon the indications. Lab Interpretation (test code = 41660-1) Abnormal [facility] CenteraPTT2023-11-10 19:05:07* Test Item Value Reference Range Interpretation Comme [facility] APTT Patient (test code = 3173-2) 36 See_Comment [Automated messa ge] The system which generated this result transmitted reference range: 26 - 36 Seconds. The reference range was not used to interpret this result as normal/abnormal. Lab Interpretation (test code = 75184-7) Normal [facility] CenterProfile / [id number] 18:56:44* Test Item Value Reference Range Interpretation Comme [facility] WBC (test code = 6690-2) 11.54 [...] result as normal/abnormal. MPV (test code = 38520-5) 9.3 fL 9.8-13.0 L RDW-CV (test code = 788-0) 22.1 % 12.1-15.4 H RDW-SD (test code = 55185-4) 73.0 fL 38.5-51.6 H NRBC x10^3 (test code = 8520596479) See_Comment [Automated messa ge] The system which generated this result transmitted reference range: 10*3/?L. The reference range was not used to interpret this result as normal/abnormal. NRBC/100 WBC (test code = 4258591986) 0.0 See_Comment [Automated messa ge] The system which generated this result transmitted reference range: 0.0 - 10.0 /100 WBCs. The reference range was not used to interpret this result as normal/abnormal. IPF % (test code = 5949928066) Lab Interpretation (test code = 88516-3) Abnormal [facility] CenterPOCT GLUCOSE (AUTOMATED)2023-03-04 18:44:21* Test Item Value Reference Range Interpretation Comme [facility] POCT GLU (test code = 7805997742) 101 mg/dL 70-110 Lab Interpretation (test cod e = 61620-3) Normal [facility] CenterBLOOD CULTURE [id number] 01:01:26* Test Item Value Reference Range Interpretation Comme [facility] Blood Culture-Aerobic (test code = 92694-7) No organisms isolated No growth Previous preliminary verified result was Culture In Progress on 02/25/2023 at 2301 CDTPrevious preliminary verified result was No growth at 24 hours on 02/26/2023 at 2000 CDTPrevious preliminary verified result was No growth at 48 hours on 02/27/2023 at 1901 CSTPrevious preliminary verified result was No growth at 72 hours on 02/28/2023 at 1901 PATIENT FLOW COORDINATOR Blood Culture-Anaerobic (test code = 12789-2) No organisms isolated No growth Previous preliminary verified result was Culture In Progress on 02/25/2023 at 2301 CDTPrevious preliminary verified result was No growth at 24 hours on 02/26/2023 at 2000 CDTPrevious preliminary verified result was No growth at 48 hours on 02/27/2023 at 1901 CSTPrevious preliminary verified result was No growth at 72 hours on 02/28/2023 at 1901 PATIENT FLOW COORDINATOR Lab Interpretation (test code = 35601-7) [facility] CULTURE [id number] 01:01:26* Test Item Value Reference Range Interpretation Comme nts Blood Culture-Aerobic (test code = 62187-0) No organisms isolated No growth Previous preliminary verified result was Culture In Progress on 02/25/2023 at 2301 CDTPrevious preliminary verified result was No growth at 24 hours on 02/26/2023 at 2000 CDTPrevious preliminary verified result was No growth at 48 hours on 02/27/2023 at 1901 CSTPrevious preliminary verified result was No growth at 72 hours on 02/28/2023 at 1901 PATIENT FLOW COORDINATOR Blood Culture-Anaerobic (test code = 80697-2) No organisms isolated No growth Previous preliminary verified result was Culture In Progress on 02/25/2023 at 2301 CDTPrevious preliminary verified result was No growth at 24 hours on 02/26/2023 at 2000 CDTPrevious preliminary verified result was No growth at 48 hours on 02/27/2023 at 1901 CSTPrevious preliminary verified result was No growth at 72 hours on 02/28/2023 at 1901 PATIENT FLOW COORDINATOR Lab Interpretation (test code = 78156-2) [facility] CULTURE [id number] 01:01:26* Test Item Value Reference Range Interpretation Comme nts Blood Culture-Aerobic (test code = 95926-1) No organisms isolated No growth Previous preliminary verified result was Culture In Progress on 02/25/2023 at 2301 CDTPrevious preliminary verified result was No growth at 24 hours on 02/26/2023 at 2000 CDTPrevious preliminary verified result was No growth at 48 hours on 02/27/2023 at 1901 CSTPrevious preliminary verified result was No growth at 72 hours on 02/28/2023 at 1901 PATIENT FLOW COORDINATOR Blood Culture-Anaerobic (test code = 59379-3) No organisms isolated No growth Previous preliminary verified result was Culture In Progress on 02/25/2023 at 2301 CDTPrevious preliminary verified result was No growth at 24 hours on 02/26/2023 at 2000 CDTPrevious preliminary verified result was No growth at 48 hours on 02/27/2023 at 1901 CSTPrevious preliminary verified result was No growth at 72 hours on 02/28/2023 at 1901 PATIENT FLOW COORDINATOR Lab Interpretation (test code = 88431-7) Normal [facility] CenterPROTHROMBIN TIME / [id number] 19:51:25* Test Item Value Reference Range Interpretation Comme [facility] PROTIME PATIENT (test code = 5964-2) [...] the indications. Lab Interpretation (test code = 12801-6) Abnormal [facility] CenterPROTHROMBIN TIME / [id number] 19:51:25* Test Item Value Reference Range Interpretation Comme [facility] PROTIME PATIENT (test code = 5964-2) [...] the indications. Lab Interpretation (test code = 75923-0) Abnormal [facility] CenterCB WITHOUT [id number] 23:28:46* Test Item Value Reference Range Interpretation Comme [facility] WBC (test code = 6690-2) 19.43 [...] result as normal/abnormal. MPV (test code = 85935-6) 11.0 fL 9.8-13.0 RDW-CV (test code = 788-0) 21.8 % 12.1-15.4 H RDW-SD (test code = 40929-8) 66.4 fL 38.5-51.6 H NRBC x10^3 (test code = 1991154988) See_Comment [Automated messa ge] The system which generated this result transmitted reference range: 10*3/?L. The reference range was not used to interpret this result as normal/abnormal. NRBC/100 WBC (test code = 0831126948) 0.0 See_Comment [Automated messa ge] The system which generated this result transmitted reference range: 0.0 - 10.0 /100 WBCs. The reference range was not used to interpret this result as normal/abnormal. IPF % (test code = 0665527728) Lab Interpretation (test code = 08822-9) Abnormal [facility] WITHOUT [id number] 23:28:46* Test Item Value Reference Range Interpretation [...] result as normal/abnormal. MPV (test code = 19619-1) 11.0 fL 9.8-13.0 RDW-CV (test code = 788-0) 21.8 % 12.1-15.4 H RDW-SD (test code = 37861-0) 66.4 fL 38.5-51.6 H NRBC x10^3 (test code = 4992131790) See_Comment [Automated messa ge] The system which generated this result transmitted reference range: 10*3/?L. The reference range was not used to interpret this result as normal/abnormal. NRBC/100 WBC (test code = 9793479186) 0.0 See_Comment [Automated messa ge] The system which generated this result transmitted reference range: 0.0 - 10.0 /100 WBCs. The reference range was not used to interpret this result as normal/abnormal. IPF % (test code = 4931426545) Lab Interpretation (test code = 51735-3) Abnormal [facility] CenterPrepare Packed RBC (in units), 1 Units 2023-03-01 14:31:00* Test Item Value Reference Range Interpretation Comme nts Cross Match Result (test code = 4409) Compatible ISBT Blood Type Code (test code = 203465) 5100 Unit Blood Type (test code = 4410) O Pos Unit Number (test code = 4411) [id number] Blood Expiration Date & Time (test code = 325789) [id number] Status Information (test code = 4412) Issued Product Identification (test code = 4413) Red Blood Cells Product Code (test code = 4414) [id number] Performed at [facility] Blood [address] [address]Qvrv Free: [phone] No. [id number] [facility] Packed RBC (in units), 1 Units 2023-03-01 14:31:00* Test Item Value Reference Range Interpretation Comme nts Cross Match Result (test code = 4409) Compatible ISBT Blood Type Code (test code = 981417) 5100 Unit Blood Type (test code = 4410) O Pos Unit Number (test code = 4411) [id number] Blood Expiration Date & Time (test code = 113222) [id number] Status Information (test code = 4412) Issued Product Identification (test code = 4413) Red Blood Cells Product Code (test code = 4414) [id number] Performed at [facility] Blood [address] [address]Vvjw Free: [phone] No. [id number] [facility] [id number] 12:12:59* Test Item Value Reference Range Interpretation Comme nts SPUTUM CULTURE (test code = 622-1) Specimen cellular elements do not represent lower respiratory tract. Specimen rejected for routine bacterial culture. Suggest reorder and recollection. Gram stain (test code = 664-3) Numerous Epithelial cells [facility] [id number] 12:12:59* Test Item Value Reference Range Interpretation Comme nts SPUTUM CULTURE (test code = 622-1) Specimen cellular elements do not represent lower respiratory tract. Specimen rejected for routine bacterial culture. Suggest reorder and recollection. Gram stain (test code = 664-3) Numerous Epithelial cells [facility] Packed RBC (in units), 1 Units 2023-02-27 21:19:05* Test Item Value Reference Range Interpretation Comme nts Cross Match Result (test code = 4409) Compatible ISBT Blood Type Code (test code = 538805) 5100 Unit Blood Type (test code = 4410) O Pos Unit Number (test code = 4411) [id number] Blood Expiration Date & Time (test code = 024618) [id number] Status Information (test code = 4412) Issued Product Identification (test code = 4413) Red Blood Cells Product Code (test code = 4414) [id number] Performed at [facility] Laboratory Services [facility] Blood [address] [place] [address]Dzqa Free: [phone] No. [id number] [facility] CenterAC Panel 20 + Lactic [id number] 04:29:10* Test Item Value Reference Range Interpretation Comme nts PH (test code = 2) 7.41 7.35-7.45 PCO2 (test code = 0958005483) 33 See_Comment L [Automated messa ge] The system which generated this result transmitted reference range: 35 - 45 mmHg. The reference range was not used to interpret this result as normal/abnormal. PO2 (test code = 5869679605) 77 See_Comment L [Automated messa ge] The system which generated this result transmitted reference range: 80 - 100 mmHg. The reference range was not used to interpret this result as normal/abnormal. HCO3 (test code = 4487103801) 20 See_Comment L [Automated messa ge] The system which generated this result transmitted reference range: 22 - 26 mEq/L. The reference range was not used to interpret this result as normal/abnormal. BE (test code = 3648108956) -3.2 See_Comment L [Automated messa ge] The system which generated this result transmitted reference range: -3.0 - 3.0 mEq/L. The reference range was not used to interpret this result as normal/abnormal. THB (test code = 7710554202) 12.6 g/dL 13.5-18.0 L %O2HB (test code = 9814729918) 93.5 % 94.0-99.0 L %COHB ART (test code = 7940397227) 0.8 % 0.0-1.5 %METHB ART (test code = 6776033730) 0.4 % 0.4-1.5 VOL%O2 ART (test code = 4787915307) 16.6 % 15.0-23.0 NA (test code = 7255037116) 136 mmol/L 135-145 K+ (test code = 7208760279) 3.8 mmol/L 3.5-5.0 AC CA IONZ (test code = 7329882769) 4.50 mg/dL 4.50-5.30 GLUCOSE (test code = 3837439106) 110 mg/dL 70-110 LACTIC ACID (test code = 7249639062) 1.84 mmol/L 0.50-2.20 Lab Interpretation (test code = 84592-1) Abnormal [facility] CenterAC Panel 20 + Lactic [id number] 04:29:10* Test Item Value Reference Range Interpretation Comme nts PH (test code = 2) 7.41 7.35-7.45 PCO2 (test code = 7048324432) 33 See_Comment L [Automated messa ge] The system which generated this result transmitted reference range: 35 - 45 mmHg. The reference range was not used to interpret this result as normal/abnormal. PO2 (test code = 0827870035) 77 See_Comment L [Automated messa ge] The system which generated this result transmitted reference range: 80 - 100 mmHg. The reference range was not used to interpret this result as normal/abnormal. HCO3 (test code = 1595602299) 20 See_Comment L [Automated messa ge] The system which generated this result transmitted reference range: 22 - 26 mEq/L. The reference range was not used to interpret this result as normal/abnormal. BE (test code = 1963630754) -3.2 See_Comment L [Automated messa ge] The system which generated this result transmitted reference range: -3.0 - 3.0 mEq/L. The reference range was not used to interpret this result as normal/abnormal. THB (test code = 8671539676) 12.6 g/dL 13.5-18.0 L %O2HB (test code = 8263408653) 93.5 % 94.0-99.0 L %COHB ART (test code = 2011462527) 0.8 % 0.0-1.5 %METHB ART (test code = 1635589262) 0.4 % 0.4-1.5 VOL%O2 ART (test code = 4420394561) 16.6 % 15.0-23.0 NA (test code = 3366339881) 136 mmol/L 135-145 K+ (test code = 2669684408) 3.8 mmol/L 3.5-5.0 AC CA IONZ (test code = 0494877650) 4.50 mg/dL 4.50-5.30 GLUCOSE (test code = 3474375225) 110 mg/dL 70-110 LACTIC ACID (test code = 1571215941) 1.84 mmol/L 0.50-2.20 Lab Interpretation (test code = 39903-8) Abnormal [facility] WITH [id number] 12:03:47* Test Item Value Reference Range Interpretation [...] 32.5 g/dL 31.2-35.0 RDW-SD (test code = 61654-5) 66.4 fL 38.5-51.6 H RDW-CV (test code = 788-0) 19.5 % 12.1-15.4 H PLT (test code = 777-3) 37 See_Comment LL [Automated messa ge] The system which generated this result transmitted reference range: 150 - 328 10*3/?L. The reference range was not used to interpret this result as normal/abnormal. MPV (test code = 13955-2) Not Measured IPF % (test code = 2545495739) 13.6 % 1.2-10.7 H Platelet count measured by fluorescence method. NRBC/100 WBC (test code = 9048751565) 0.1 See_Comment [Automated me ssage] The system which generated this result transmitted reference range: 0.0 - 10.0 /100 WBCs. The reference range was not used to interpret this result as normal/abnormal. NRBC x10^3 (test code = 3520419466) 0.02 See_Comment [Automated messa ge] The system which generated this result transmitted reference range: 10*3/?L. The reference range was not used to interpret this result as normal/abnormal. GRAN MAT (NEUT) % (test code = 770-8) 64.8 % IMM GRAN % (test code = 6122429739) 1.70 % LYMPH % (test code = 736-9) 13.8 % MONO % (test code = 5905-5) 13.1 % EOS % (test code = 713-8) 6.4 % BASO % (test code = 706-2) 0.2 % GRAN MAT x10^3(ANC) (test code = 3449346438) 10.52 10*3/uL 1.99-6.95 H IMM GRAN x10^3 (test code = 1842231663) 0.27 10*3/uL 0.00-0.06 H LYMPH x10^3 (test code = 731-0) 2.24 10*3/uL 1.09-3.23 MONO x10^3 (test code = 742-7) 2.12 10*3/uL 0.36-1.02 H EOS x10^3 (test code = 711-2) 1.04 10*3/uL 0.06-0.53 H BASO x10^3 (test code = 704-7) 0.04 10*3/uL 0.01-0.09 Lab Interpretation (test code = 29216-2) Abnormal [facility] CenterMAGNESIUM2023-11-04 11:57:16* Test Item Value Reference Range Interpretation Comme nts MAGNESIUM (test code = 0224517951) 2.6 mg/dL 1.7-2.4 H Lab Interpretation (test cod e = 33242-3) Abnormal [facility] CenterCOM. METABOLIC PANEL (06216)2023-02-26 11:57:15* Test Item Value Reference Range Interpretation Comme nts NA (test code = 4914700437) 138 mmol/L 135-145 K (test code = 1923181516) 3.6 mmol/L 3.5-5.0 CL (test code = 3310992518) 104 mmol/L 98-108 CO2 TOTAL (test code = 8468847442) 24 mmol/L 23-31 AGAP (test code = 1843186445) 10 2-16 BUN (test code = 6673208836) 13 mg/dL 7-23 GLUCOSE (test code = 5181872889) 111 mg/dL 70-110 H CREATININE (test code = 8581626296) 2.58 mg/dL 0.60-1.25 H TOTAL BILI (test code = 6181083303) 2.7 mg/dL 0.1-1.1 H CALCIUM (test code = 2334607731) 8.4 mg/dL 8.6-10.6 L T PROTEIN (test code = 0542542370) 6.8 g/dL 6.3-8.2 ALBUMIN (test code = 9234883374) 4.1 g/dL 3.5-5.0 ALK PHOS (test code = 5898824029) 193 U/L 34-122 H ALTv (test code = 1742-6) 39 U/L 5-50 AST(SGOT) (test code = 5101115279) 206 U/L 13-40 H eGFR (test code = 23259-7) 28.3 mL/min/1.73m2 CKD-EPI eGFR (2020). Assuming creatinine has been stable day-to-day for at least three months, the eGFR indicates Category G4 (15 - 29 mL/min/1.73 m2) Lab Interpretation (test code = 97847-1) Abnormal [facility] WITHOUT [id number] 00:14:22* Test Item Value Reference Range Interpretation Comme nts WBC (test code = 6690-2) 11.07 See_Comment H [Automated [employer] ge] The system which generated this result [...] result as normal/abnormal. MPV (test code = 47271-7) 11.5 fL 9.8-13.0 RDW-CV (test code = 788-0) 19.5 % 12.1-15.4 H RDW-SD (test code = 10331-7) 66.5 fL 38.5-51.6 H NRBC x10^3 (test code = 7336623538) See_Comment [Automated [employer] ge] The system which generated this result transmitted reference range: 10*3/?L. The reference range was not used to interpret this result as normal/abnormal. NRBC/100 WBC (test code = 9369719653) 0.0 See_Comment [Automated [employer]] The system which generated this result transmitted reference range: 0.0 - 10.0 /100 WBCs. The reference range was not used to interpret this result as normal/abnormal. IPF % (test code = 4893049974) 12.8 % 1.2-10.7 H Platelet count measured by fluorescence method. Lab Interpretation (test code = 45628-9) Abnormal [facility]23-[facility]-25 16:11:31* Test Item Value Reference Range Interpretation Comme nts PH (test code = 2) 7.45 7.35-7.45 PCO2 (test code = 8248031471) 34 See_Comment L [Automated messa ge] The system which generated this result transmitted reference range: 35 - 45 mmHg. The reference range was not used to interpret this result as normal/abnormal. PO2 (test code = 1502232682) 384 See_Comment H QUES [Automated message] The system which generated this result transmitted reference range: 80 - 100 mmHg. The reference range was not used to interpret this result as normal/abnormal. HCO3 (test code = 6381983370) 23 See_Comment [Automated messa ge] The system which generated this result transmitted reference range: 22 - 26 mEq/L. The reference range was not used to interpret this result as normal/abnormal. BE (test code = 2395129824) -1.1 See_Comment [Automated messa ge] The system which generated this result transmitted reference range: -3.0 - 3.0 mEq/L. The reference range was not used to interpret this result as normal/abnormal. Lab Interpretation (test code = 46640-4) Abnormal [facility] Arterial Blood Gas.2023-02-25 16:11:31* Test Item Value Reference Range Interpretation Comme nts PH (test code = 2) 7.45 7.35-7.45 PCO2 (test code = 0229545431) 34 See_Comment L [Automated messa ge] The system which generated this result transmitted reference range: 35 - 45 mmHg. The reference range was not used to interpret this result as normal/abnormal. PO2 (test code = 3415586043) 384 See_Comment H QUES [Automated message] The system which generated this result transmitted reference range: 80 - 100 mmHg. The reference range was not used to interpret this result as normal/abnormal. HCO3 (test code = 1453320360) 23 See_Comment [Automated messa ge] The system which generated this result transmitted reference range: 22 - 26 mEq/L. The reference range was not used to interpret this result as normal/abnormal. BE (test code = 8475317030) -1.1 See_Comment [Automated messa ge] The system which generated this result transmitted reference range: -3.0 - 3.0 mEq/L. The reference range was not used to interpret this result as normal/abnormal. Lab Interpretation (test code = 59954-7) Abnormal [facility] WITH [id number] 11:40:01* Test Item Value Reference Range Interpretation Comme nts WBC (test code = 6690-2) 14.58 See_Comment H [Automated [employer]] The system which generated this result transmitted reference range: 4.20 - 10.70 10*3/?L. The reference range was not used to interpret this result as normal/abnormal. RBC (test code = 789-8) 2.59 See_Comment L [Automated [employer] ge] The system which generated this result [...] 32.7 g/dL 31.2-35.0 RDW-SD (test code = 58770-4) 67.8 fL 38.5-51.6 H RDW-CV (test code = 788-0) 19.4 % 12.1-15.4 H PLT (test code = 777-3) 46 See_Comment LL [Automated [employer] ge] The system which generated this result transmitted reference range: 150 - 328 10*3/?L. The reference range was not used to interpret this result as normal/abnormal. MPV (test code = 22075-8) 11.3 fL 9.8-13.0 IPF % (test code = 5629379639) 8.9 % 1.2-10.7 Platelet count measured by fluorescence method. NRBC/100 WBC (test code = 8339340326) 0.0 See_Comment [Automated [employer] ssage] The system which generated this result transmitted reference range: 0.0 - 10.0 /100 WBCs. The reference range was not used to interpret this result as normal/abnormal. NRBC x10^3 (test code = 5688900703) See_Comment [Automated messa ge] The system which generated this result transmitted reference range: 10*3/?L. The reference range was not used to interpret this result as normal/abnormal. GRAN MAT (NEUT) % (test code = 770-8) 75.9 % IMM GRAN % (test code = 6345836492) 1.00 % LYMPH % (test code = 736-9) 8.4 % MONO % (test code = 5905-5) 9.3 % EOS % (test code = 713-8) 5.1 % BASO % (test code = 706-2) 0.3 % GRAN MAT x10^3(ANC) (test code = 4072700460) 11.06 10*3/uL 1.99-6.95 H IMM GRAN x10^3 (test code = 6816681879) 0.15 10*3/uL 0.00-0.06 H LYMPH x10^3 (test code = 731-0) 1.22 10*3/uL 1.09-3.23 MONO x10^3 (test code = 742-7) 1.36 10*3/uL 0.36-1.02 H EOS x10^3 (test code = 711-2) 0.74 10*3/uL 0.06-0.53 H BASO x10^3 (test code = 704-7) 0.05 10*3/uL 0.01-0.09 Lab Interpretation (test code = 13042-0) Abnormal [facility]2023-[facility] 11:03:46* Test Item Value Reference Range Interpretation Comme nts MAGNESIUM (test code = 7409779077) 2.5 mg/dL 1.7-2.4 H Lab Interpretation (test cod e = 07016-2) Abnormal [facility] CenterCOMP. METABOLIC PANEL (80677)2023-02-25 11:03:46* Test Item Value Reference Range Interpretation Comme nts NA (test code = 8334955447) 137 mmol/L 135-145 K (test code = 3995311108) 4.1 mmol/L 3.5-5.0 CL (test code = 7383549851) 104 mmol/L 98-108 CO2 TOTAL (test code = 7215313891) 20 mmol/L 23-31 L AGAP (test code = 9969269959) 13 2-16 BUN (test code = 7200721273) 24 mg/dL 7-23 H GLUCOSE (test code = 5481049375) 110 mg/dL 70-110 CREATININE (test code = 1029432226) 5.26 mg/dL 0.60-1.25 H TOTAL BILI (test code = 7622357761) 2.2 mg/dL 0.1-1.1 H CALCIUM (test code = 4660887043) 8.4 mg/dL 8.6-10.6 L T PROTEIN (test code = 7624397307) 6.6 g/dL 6.3-8.2 ALBUMIN (test code = 9703216541) 3.8 g/dL 3.5-5.0 ALK PHOS (test code = 5280963537) 214 U/L 34-122 H ALTv (test code = 1742-6) 45 U/L 5-50 AST(SGOT) (test code = 7464600281) 218 U/L 13-40 H eGFR (test code = 72792-9) 12.0 mL/min/1.73m2 CKD-EPI eGFR (2020). Assuming creatinine has been stable day-to-day for at least three months, the eGFR indicates Category G5 (<= 14mL/min/1.73 m2) Lab Interpretation (test code = 30115-8) Abnormal [facility] CenterPHOSPHORUS2023-11-03 11:03:46* Test Item Value Reference Range Interpretation Comme nts PHOSPHORUS (test code = 7111016146) 2.9 mg/dL 2.5-5.0 Lab Interpretation (test cod e = 87616-0) Normal [facility] (NA, K, CL, CO2, GLUCOSE, BUN, CREATININE, CA)2023-02-24 18:45:30* Test Item Value Reference Range Interpretation Comme nts NA (test code = 5103228516) 136 mmol/L 135-145 K (test code = 7563381855) 4.0 mmol/L 3.5-5.0 CL (test code = 7222763332) 102 mmol/L 98-108 CO2 TOTAL (test code = 2113361445) 19 mmol/L 23-31 L AGAP (test code = 4339218568) 15 2-16 BUN (test code = 5005922998) 32 mg/dL 7-23 H GLUCOSE (test code = 5099733961) 106 mg/dL 70-110 CREATININE (test code = 3881267557) 7.57 mg/dL 0.60-1.25 H CALCIUM (test code = 1715755519) 8.7 mg/dL 8.6-10.6 eGFR (test code = 22629-4) 7.8 mL/min/1.73m2 CKD-EPI eGFR (2020). Assuming creatinine has been stable day-to-day for at least three months, the eGFR indicates Category G5 (<= 14mL/min/1.73 m2) Lab Interpretation (test code = 62011-0) Abnormal [facility]BL[facility] [id number] 11:01:20* Test Item Value Reference Range Interpretation Comme nts Blood Culture-Aerobic (test code = 22222-5) No organisms isolated No growth Previous preliminary verified result was Culture In Progress on 02/19/[address] [place], [place] [address]TPrevious preliminary verified result was No growth at 24 hours on 02/20/[address] [place], [place] [address]TPrevious preliminary verified result was No growth at 48 hours on 02/21/2023 at [facility] CDTPrevious preliminary verified result was No growth at 72 hours on 02/22/[address] [place] [address] Blood Culture-Anaerobic (test code = 55811-3) No organisms isolated No growth Previous preliminary verified result was Culture In Progress on 02/19/[address] [place], [place] [address]TPrevious preliminary verified result was No growth at 24 hours on 02/20/2023 at [facility] CDTPrevious preliminary verified result was No growth at 48 hours on 02/21/2023 at [facility] CDTPrevious preliminary verified result was No growth at 72 hours on 02/22/[address] [place], [place] [address]T Lab Interpretation (test code = 01953-2) Normal [facility] CenterCBC WITH [id number] 10:50:27* Test Item Value Reference Range Interpretation Comme nts WBC (test code = 6690-2) 9.03 See_Comment [Automated messa ge] The system which generated this result transmitted reference range: 4.20 - 10.70 10*3/?L. The reference range was not used to interpret this result as normal/abnormal. RBC (test code = 789-8) 2.73 See_Comment L [Automated [employer]] The system which generated this result [...] 33.5 g/dL 31.2-35.0 RDW-SD (test code = 17061-3) 66.4 fL 38.5-51.6 H RDW-CV (test code = 788-0) 19.7 % 12.1-15.4 H PLT (test code = 777-3) 42 See_Comment LL [Automated [employer]] The system which generated this result transmitted reference range: 150 - 328 10*3/?L. The reference range was not used to interpret this result as normal/abnormal. MPV (test code = 21972-3) 10.3 fL 9.8-13.0 IPF % (test code = 6153849794) 8.1 % 1.2-10.7 Platelet count measured by fluorescence method. NRBC/100 WBC (test code = 7691563799) 0.0 See_Comment [Automated [employer] ssage] The system which generated this result transmitted reference range: 0.0 - 10.0 /100 WBCs. The reference range was not used to interpret this result as normal/abnormal. NRBC x10^3 (test code = 0330975117) See_Comment [Automated [employer]] The system which generated this result transmitted reference range: 10*3/?L. The reference range was not used to interpret this result as normal/abnormal. GRAN MAT (NEUT) % (test code = 770-8) 66.1 % IMM GRAN % (test code = 8344508209) 0.80 % LYMPH % (test code = 736-9) 13.2 % MONO % (test code = 5905-5) 10.2 % EOS % (test code = 713-8) 9.3 % BASO % (test code = 706-2) 0.4 % GRAN MAT x10^3(ANC) (test code = 1620662519) 5.97 10*3/uL 1.99-6.95 IMM GRAN x10^3 (test code = 6226243605) 0.07 10*3/uL 0.00-0.06 H LYMPH x10^3 (test code = 731-0) 1.19 10*3/uL 1.09-3.23 MONO x10^3 (test code = 742-7) 0.92 10*3/uL 0.36-1.02 EOS x10^3 (test code = 711-2) 0.84 10*3/uL 0.06-0.53 H BASO x10^3 (test code = 704-7) 0.04 10*3/uL 0.01-0.09 Lab Interpretation (test code = 92495-5) Abnormal [facility]2023-[facility]-02 10:30:39* Test Item Value Reference Range Interpretation Comme nts MAGNESIUM (test code = 7538780734) 2.6 mg/dL 1.7-2.4 H Lab Interpretation (test cod e = 17573-4) Abnormal [facility] CenterCOMP[facility] METABOLIC PANEL (72120)2023-02-24 10:30:39* Test Item Value Reference Range Interpretation Comme nts NA (test code = 0266486432) 135 mmol/L 135-145 K (test code = 7386785772) 4.2 mmol/L 3.5-5.0 CL (test code = 4015863220) 102 mmol/L 98-108 CO2 TOTAL (test code = 5425559528) 19 mmol/L 23-31 L AGAP (test code = 7347948189) 14 2-16 BUN (test code = 9434210359) 31 mg/dL 7-23 H GLUCOSE (test code = 6611093838) 110 mg/dL 70-110 CREATININE (test code = 3022327289) 7.39 mg/dL 0.60-1.25 H TOTAL BILI (test code = 9471637051) 2.2 mg/dL 0.1-1.1 H CALCIUM (test code = 6987860916) 9.1 mg/dL 8.6-10.6 T PROTEIN (test code = 6265275839) 7.0 g/dL 6.3-8.2 ALBUMIN (test code = 4737615148) 4.1 g/dL 3.5-5.0 ALK PHOS (test code = 5809893955) 218 U/L 34-122 H ALTv (test code = 1742-6) 53 U/L 5-50 H AST(SGOT) (test code = 9046828710) 242 U/L 13-40 H eGFR (test code = 07349-0) 8.0 mL/min/1.73m2 CKD-EPI eGFR (2020). Assuming creatinine has been stable day-to-day for at least three months, the eGFR indicates Category G5 (<= 14mL/min/1.73 m2) Lab Interpretation (test code = 81786-7) Abnormal [facility] CenterPHOSPHORUS2023-11-02 10:30:39* Test Item Value Reference Range Interpretation Comme nts PHOSPHORUS (test code = 3628556778) 3.6 mg/dL 2.5-5.0 Lab Interpretation (test cod e = 28916-3) Normal [facility] (NA, K, CL, CO2, GLUCOSE, BUN, CREATININE, CA)2023-02-24 10:30:39* Test Item Value Reference Range Interpretation Comme nts NA (test code = 9666017725) 135 mmol/L 135-145 K (test code = 8506008936) 4.2 mmol/L 3.5-5.0 CL (test code = 0341603078) 102 mmol/L 98-108 CO2 TOTAL (test code = 2891925032) 19 mmol/L 23-31 L AGAP (test code = 7955675772) 14 2-16 BUN (test code = 3348481219) 31 mg/dL 7-23 H GLUCOSE (test code = 6200425027) 110 mg/dL 70-110 CREATININE (test code = 5438937034) 7.39 mg/dL 0.60-1.25 H CALCIUM (test code = 4605130086) 9.1 mg/dL 8.6-10.6 eGFR (test code = 44671-5) 8.0 mL/min/1.73m2 CKD-EPI eGFR (2020). Assuming creatinine has been stable day-to-day for at least three months, the eGFR indicates Category G5 (<= 14mL/min/1.73 m2)CKD-EPI eGFR (2020). Assuming creatinine has been stable day-to-day for at least three months, the eGFR indicates Category G5 (<= 14mL/min/1.73 m2) Lab Interpretation (test code = 87445-5) Abnormal [facility]AC Panel 20 + Lactic [id number] 21:58:55* Test Item Value Reference Range Interpretation Comme nts PH (test code = 2) 7.47 7.35-7.45 H PCO2 (test code = 1924390465) 30 See_Comment L [Automated messa ge] The system which generated this result transmitted reference range: 35 - 45 mmHg. The reference range was not used to interpret this result as normal/abnormal. PO2 (test code = 3594681285) 96 See_Comment [Automated messa ge] The system which generated this result transmitted reference range: 80 - 100 mmHg. The reference range was not used to interpret this result as normal/abnormal. HCO3 (test code = 5873025027) 21 See_Comment L [Automated messa ge] The system which generated this result transmitted reference range: 22 - 26 mEq/L. The reference range was not used to interpret this result as normal/abnormal. BE (test code = 8657351680) -2.1 See_Comment [Automated messa ge] The system which generated this result transmitted reference range: -3.0 - 3.0 mEq/L. The reference range was not used to interpret this result as normal/abnormal. THB (test code = 0918913681) 10.5 g/dL 13.5-18.0 L %O2HB (test code = 0787817668) 97.4 % 94.0-99.0 %COHB ART (test code = 3527209739) 0.3 % 0.0-1.5 %METHB ART (test code = 0569850781) 0.0 % 0.4-1.5 L VOL%O2 ART (test code = 4190446704) 14.5 % 15.0-23.0 L NA (test code = 8871608148) 131 mmol/L 135-145 L K+ (test code = 6936623405) 3.9 mmol/L 3.5-5.0 AC CA IONZ (test code = 9902141789) 4.50 mg/dL 4.50-5.30 GLUCOSE (test code = 8755666527) 100 mg/dL 70-110 LACTIC ACID (test code = 1622522488) 1.70 mmol/L 0.50-2.20 QUES Lab Interpretation (test code = 88895-2) Abnormal [facility]AC [facility] 20 + Lactic [id number] 16:28:05* Test Item Value Reference Range Interpretation Comme nts PH (test code = 2) 7.53 7.35-7.45 H PCO2 (test code = 2349782281) 26 See_Comment L [Automated messa ge] The system which generated this result transmitted reference range: 35 - 45 mmHg. The reference range was not used to interpret this result as normal/abnormal. PO2 (test code = 3519795828) 87 See_Comment [Automated messa ge] The system which generated this result transmitted reference range: 80 - 100 mmHg. The reference range was not used to interpret this result as normal/abnormal. HCO3 (test code = 0357467737) 21 See_Comment L [Automated messa ge] The system which generated this result transmitted reference range: 22 - 26 mEq/L. The reference range was not used to interpret this result as normal/abnormal. BE (test code = 6949981387) -0.9 See_Comment [Automated messa ge] The system which generated this result transmitted reference range: -3.0 - 3.0 mEq/L. The reference range was not used to interpret this result as normal/abnormal. THB (test code = 9291335645) 10.0 g/dL 13.5-18.0 L %O2HB (test code = 6483270914) 97.2 % 94.0-99.0 %COHB ART (test code = 0415158515) 0.3 % 0.0-1.5 %METHB ART (test code = 1689229523) 0.1 % 0.4-1.5 L VOL%O2 ART (test code = 7465743667) 13.8 % 15.0-23.0 L NA (test code = 0039224901) 129 mmol/L 135-145 L K+ (test code = 9774875732) 3.8 mmol/L 3.5-5.0 AC CA IONZ (test code = 8109091732) 4.20 mg/dL 4.50-5.30 L GLUCOSE (test code = 0699624105) 101 mg/dL 70-110 LACTIC ACID (test code = 2239440086) 1.62 mmol/L 0.50-2.20 Lab Interpretation (test code = 79462-2) Abnormal [facility]2023-10-31 10:54:26* Test Item Value Reference Range Interpretation Comme nts MAGNESIUM (test code = 6654043725) 2.2 mg/dL 1.7-2.4 Lab Interpretation (test cod e = 54405-6) Normal [facility] CenterCOMP[facility]OLIC PANEL (15084)2023-02-22 10:54:25* Test Item Value Reference Range Interpretation Comme nts NA (test code = 7668511365) 130 mmol/L 135-145 L K (test code = 8369352197) 3.8 mmol/L 3.5-5.0 CL (test code = 2692614989) 99 mmol/L 98-108 CO2 TOTAL (test code = 3824892969) 20 mmol/L 23-31 L AGAP (test code = 9068276058) 11 2-16 BUN (test code = 6228445925) 17 mg/dL 7-23 GLUCOSE (test code = 7594621179) 107 mg/dL 70-110 CREATININE (test code = 2390303253) 3.96 mg/dL 0.60-1.25 H TOTAL BILI (test code = 3325247651) 2.5 mg/dL 0.1-1.1 H CALCIUM (test code = 6226343354) 7.8 mg/dL 8.6-10.6 L T PROTEIN (test code = 8646673624) 6.7 g/dL 6.3-8.2 ALBUMIN (test code = 7249492668) 3.5 g/dL 3.5-5.0 ALK PHOS (test code = 7131565148) 332 U/L 34-122 H ALTv (test code = 1742-6) 73 U/L 5-50 H AST(SGOT) (test code = 4436999855) 405 U/L 13-40 H eGFR (test code = 09849-7) 16.9 mL/min/1.73m2 CKD-EPI eGFR (2020). Assuming creatinine has been stable day-to-day for at least three months, the eGFR indicates Category G4 (15 - 29 mL/min/1.73 m2) Lab Interpretation (test code = 77716-9) Abnormal [facility] CenterAc[facility] Arterial Blood Gas.2023-02-21 22:56:14* Test Item Value Reference Range Interpretation Comme nts PH (test code = 2) 7.40 7.35-7.45 PCO2 (test code = 0953882939) 34 See_Comment L [Automated messa ge] The system which generated this result transmitted reference range: 35 - 45 mmHg. The reference range was not used to interpret this result as normal/abnormal. PO2 (test code = 9844178640) 108 See_Comment H QUES [Automated message] The system which generated this result transmitted reference range: 80 - 100 mmHg. The reference range was not used to interpret this result as normal/abnormal. HCO3 (test code = 0967968217) 21 See_Comment L [Automated messa ge] The system which generated this result transmitted reference range: 22 - 26 mEq/L. The reference range was not used to interpret this result as normal/abnormal. BE (test code = 7770330314) -3.5 See_Comment L [Automated messa ge] The system which generated this result transmitted reference range: -3.0 - 3.0 mEq/L. The reference range was not used to interpret this result as normal/abnormal. Lab Interpretation (test code = 50828-2) Abnormal [facility] CenterTransthoracic echo (TTE)2023-02-21 22:32:50* Test Item Value Reference Range Interpretation Comme nts Height (test code = 5731818553) 69 in Weight (test code = 9579318584) 206 lbs Systolic BP (test code = 6549008870) 154 mmHg Diastolic BP (test code = 9976488730) 90 mmHg Heart Rate (test code = 9360002324) 98 bpm LVOT stroke volume (test code = 4762396782) 88.00 cm3 EF(Teich) (test code = 6942872661) 57.60 % LVIDD (test code = 0785119353) 6.30 cm LVIDS (test code = 9085238435) 4.30 cm Left Ventricular End Systolic Volume by Teichholz Method (test code = 2106787) 84.8 mL Left Ventricular End Diastolic Volume by Teichholz Method (test code = 0703347) 200.1 mL IVS (test code = 3008094831) 1.34 cm LVPWD (test code = 7399007415) 1.16 cm LVOT diameter (test code = 3470106086) 2.19 cm LVOT area (test code = 5943671785) 3.80 cm2 FS (test code = 1576371633) 31 % MV Peak E Cy (test code = 9508307776) 136.7 cm/s MV Peak A Cy (test code = 8302471668) 93.0 cm/s E/A ratio (test code = 1095571547) 1.47 ratio E wave decelartion time (test code = 9549264563) 0.10 s LA Volume Index (BP) (test code = 8720526364) 40.1 mL/m2 LA volume (BP) (test code = 7114612620) 84.0 mL LVOT peak cy (test code = 6625788431) 133.8 cm/s LVOT mn grad (test code = 8724702673) 3.9 mmHg BSA (test code = 6642221906) 2.09 m2 LA size (test code = 4778944491) 5.2 cm LAV(MOD-sp2) (test code = 7978917654) 68.20 mL LAV(MOD-sp4) (test code = 6640928099) 68.10 mL Tapse (test code = 5011296679) 2.29 cm Ao peak cy (test code = 2242113436) 186.8 cm/s AV LVOT peak gradient (test code = 0725273997) 7.2 mmHg LVOT peak VTI (test code = 5586808146) 23.4 cm AV area peak cy (test code = 0245335023) 2.7 cm2 LV V1 mean (test code = 6774821649) 94.40 cm/s Ao max PG (test code = 9520575938) 14.00 mm[Hg] MV Prop V (test code = 0489078121) 32.40 cm/s Ao root diam (test code = 6401249068) 3.70 cm AV peak gradient (test code = 0315093426) 14.0 mmHg Aortic root (test code = 2999522264) 3.7 cm Ao root annulus (test code = 3741078055) 3.7 cm PW (test code = 3162922371) 1.16 cm 0.6-1.1 EF - 2D (test code = 92643296) 57.60 % Interventricular Septum Diastolic Thickness by 2D (test code = 7208791) 1.34 cm TR Peak Cy (test code = 8563071275) 136.8 cm/s Triscuspid Valve Regurgitation Peak Gradient (test code = 2932279918) 7.5 mmHg TASV (test code = 0687135620) 15.1 cm/s A2C EF (test code = 8929251965) 58.70 % EF(sp2-el) (test code = 2861754502) 60.40 % SV(MOD-sp2) (test code = 9197762178) 85.90 mL LV Diastolic Volume (BP) (test code = 9986927515) 146.0 mL A4C EF (test code = 7088418305) 52.90 % EF(MOD-bp) (test code = 7592049710) 54.70 % EF(sp4-el) (test code = 7700465249) 53.60 % LV Systolic Volume (BP) (test code = 5435952427) 66.2 mL SV(MOD-bp) (test code = 2758640868) 79.80 mL SV(MOD-sp4) (test code = 8051485291) 75.70 mL SV(sp4-el) (test code = 5163100067) 75.90 mL EF (test code = 1477534766) 55 Left Ventricular Stroke Volume by 2-D Biplane-MOD (test code = 4519911) 79.8 mL LV Diastolic Volume Index (BP) (test code = 8482693999) 69.9 mL/m2 LV Systolic Volume Index (BP) (test code = 9965262372) 31.7 mL/m2 Radiology Study observation (narrative) (test code = 71018-7) BOBBY (test code = BOBBY) ?Left?Ventricle: Left [...] aorta. Measures 4 cm and index 1.9 cm/e3ByslnpjtvnfBzf pericardium is normal. No pericardial effusion.Study DetailsStudy [...] lateral and apex.All other segments are normal. [facility] 20 + Lactic [id number] 20:41:00* Test Item Value Reference Range Interpretation Comme nts PH (test code = 2) 7.15 7.35-7.45 LL PCO2 (test code = 2383056502) 73 See_Comment H [Automated messa ge] The system which generated this result transmitted reference range: 35 - 45 mmHg. The reference range was not used to interpret this result as normal/abnormal. PO2 (test code = 1527918114) 147 See_Comment H [Automated messa ge] The system which generated this result transmitted reference range: 80 - 100 mmHg. The reference range was not used to interpret this result as normal/abnormal. HCO3 (test code = 0650812931) 25 See_Comment [Automated messa ge] The system which generated this result transmitted reference range: 22 - 26 mEq/L. The reference range was not used to interpret this result as normal/abnormal. BE (test code = 8971854788) -4.7 See_Comment L [Automated messa ge] The system which generated this result transmitted reference range: -3.0 - 3.0 mEq/L. The reference range was not used to interpret this result as normal/abnormal. THB (test code = 7485553481) 10.1 g/dL 13.5-18.0 L %O2HB (test code = 6442394327) 98.4 % 94.0-99.0 %COHB ART (test code = 1588743182) 0.2 % 0.0-1.5 %METHB ART (test code = 8889160243) 0.2 % 0.4-1.5 L VOL%O2 ART (test code = 8927003913) 14.3 % 15.0-23.0 L NA (test code = 7962405170) 129 mmol/L 135-145 L K+ (test code = 7720695856) 4.4 mmol/L 3.5-5.0 AC CA IONZ (test code = 0752239657) 4.20 mg/dL 4.50-5.30 L GLUCOSE (test code = 8053407753) 159 mg/dL 70-110 H LACTIC ACID (test code = 9371843699) 1.02 mmol/L 0.50-2.20 QUES Lab Interpretation (test code = 93520-1) Abnormal [facility] 20 + Lactic [id number] 17:21:48* Test Item Value Reference Range Interpretation Comme nts PH (test code = 2) 7.25 7.35-7.45 L PCO2 (test code = 8260673638) 56 See_Comment H [Automated messa ge] The system which generated this result transmitted reference range: 35 - 45 mmHg. The reference range was not used to interpret this result as normal/abnormal. PO2 (test code = 6106208682) 103 See_Comment H [Automated messa ge] The system which generated this result transmitted reference range: 80 - 100 mmHg. The reference range was not used to interpret this result as normal/abnormal. HCO3 (test code = 9892469829) 24 See_Comment [Automated messa ge]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 PGY-2 [facility] Neurosurgery Cosigned by Nikita Contreras MD at 05/23/2024 6:02 AM PATIENT FLOW COORDINATOR ENT FLOW COORDINATOR ENT FLOW COORDINATOR Associated attestation - Nikita Contreras MD - 05/23/2024 6:02 AM PATIENT FLOW COORDINATOR I have seen and examined the patient. No surgical intervention is indicated. We will follow serial neurological exams and repeat imaging. I have updated him on his condition and have answered his questions. [facility] Procedure Notes Date/Time Note Provider Source 2024-05-29 10:17:00 Date: 05/29/2024 Diagnosis: Pre-op Diagnosis * Closed fracture of right ankle, initial encounter [S82.891A] Post-op Diagnosis * Closed fracture of right ankle, initial encounter [S82.891A] Procedures: OPEN REDUCTION INTERNAL FIXATION OF RIGHT ANKLE (Right) Surgeons: * Tony Back - Primary Coronary Care Unit Nurse: * No surgical staff found * Anesthesia: [...] Action Serial No. Screw SCREW 202.962 - [id number] Implanted Screw SCREW 201.377.97 - [id number] Implanted Screw SCR 2.7 CRTX SLFTP T8 RCS 22 - [id number] Implanted 3.5X12MM SCREW Implanted Screw SCR 2.4 CRTX SLFTAP T8 RCS 18 - [id number] Implanted Screw SCREW 02.206.214 - [id number] Implanted Screw SCREW [employer] 16X3.5MM - [id number] Implanted Screw SCREW [employer] 18X3.5MM - [id number] Implanted Procedure for cancer: Procedure for Cancer?: No Dictation number: N/A Findings: ankle fracture Disposition: PACU Condition: stable Postoperative Plan: Weight bearing: NWB RLE Antibiotics: Perioperative DVT Prophylaxis per protocol Continue Current Pain Management Drains: None Pending ORS surgeries: None at this time Cosigned by Elfego Hernandez MD at 05/29/2024 10:58 PM PATIENT FLOW COORDINATOR ENT FLOW COORDINATOR ENT FLOW COORDINATOR ENT FLOW COORDINATOR [facility] Notes Date/Time Note Provider Source Referral ID Status Reason Start Date Expiration Date Visits Requested Visits Authorized [id number] Pending Review Specialty Services Required 05/31/2024 07/30/[phone] [facility]2025-02-06 16:26:44* * Auth/Cert (Routine) Specialty Diagnoses / Procedures Referred By León raymond Referred To Contact Diagnoses Subarachnoid hemorrhage (CMS/HCC) (HCC) SAH Thrombocythemia Procedures AL INITIAL OBSERVATION CARE/DAY 30 MINUTES Nikita Contreras MD [address] [facility] [address] [place] [address] Phone: tel: fax: [facility] (Emergency) [address] [place] [address] Phone: tel: Referral ID Status Reason Start Date Expiration Date Visits Re quested Visits Authorized [id number] 1 1 [facility] 16:26:44* Audit-C Score Answer Date of Assessment [...] No 05/23/2024 5:00 PM Hunter Velazquez RN [place] numb or detached from p eople, activities, or your surroundings? No 05/23/2024 5:00 PM Hunter Prasad RN [place] guilty or unable to sto p blaming yourself or others for the events or any problems the events may have caused? No 05/23/2024 5:00 PM Hunter Velazquez RN * [place] Suicide Severity Rating Scale (Screener/Recent Self-Report) Question Answer Date of Assessment Author 1. Wish to be (Past 1 Month) No 025 8:00 AM PATIENT FLOW COORDINATOR Luba Chong, KAYLA 2. Non-Specific Active Suici yunior Thoughts (Past 1 Month) No 05/28/2024 8:00 AM PATIENT FLOW COORDINATOR Jolie Chong, KAYLA 6. Suicidal Behavior (Lifetime) No 8:00 AM PATIENT FLOW COORDINATOR Luba Chong RN * Primary Care PTSD Score Question Answer Date of Assessment Author Primary Care PTSD Total Score 1 05/23/2024 5:00 PM PATIENT FLOW COORDINATOR Hunter oTlbert RN [facility]263-63-84 16:26:44* Vladimir Downs, OT - 05/31/2024 3:34 PM PATIENT FLOW COORDINATOR Treatment Session Note Patient Name: Beny Aden Today's Date: 05/31/2024 Preferred Language: Swedish Assessment & Plan Pt tolerates session well [...] as the discharge summary. Vladimir Downs OT ENT FLOW COORDINATOR * Elsa Alarcon PTA - 05/31/2024 9:54 AM PATIENT FLOW COORDINATOR Encounter Note Patient Name: Beny Aden Today's Date: 05/31/2024 Missed Treatment Time and Reason Pt declined tx. Elsa Alarcon PTA ENT FLOW COORDINATOR * Katie Clarke MD - 05/31/2024 9:49 AM PATIENT FLOW COORDINATOR Images from the original note were not [...] Value Ventricular Rate 121 Atrial Rate 121 AL Interval 136 QRS Duration 116 QT/QTc 338 QTc Calculation 479 P-Quincy 29 R-Quin[place] 238 T-Quincy 20 Impression SINUS TACHYCARDIA ANTEROLATERAL INFARCTION AGE UNDETERMINED ABNORMAL ECG WHEN COMPARED WITH ECG OF 06-OCT-2022 06:52, THE AXIS HAS SHIFTED TOWARD THE RIGHT ANTEROLATERAL INFARCTION IS NOW PRESENT Confirmed by Domi Victoria ([id number]) on 05/24/2024 12:22:57 PM Cosigned by Perla Severino MD at 05/31/2024 2:50 PM PATIENT FLOW COORDINATOR ENT FLOW COORDINATOR ENT FLOW COORDINATOR Associated attestation - Perla Severino MD - 05/31/2024 2:50 PM PATIENT FLOW COORDINATOR I saw and evaluated the patient. I agree with the findings and the plan of care as documented in the resident's note. * Rhonda See LMSW - 05/31/2024 9:43 AM PATIENT FLOW COORDINATOR 05/31/24 0900 Discharge Planning Patient expects to be discharged to: Home Expected Discharge Disposition Services Discharge Planning Comments Family and STORE MANAGER had questions about Pt filling Lovenox. PA is reporting Lovenox and new meds needs to be called into Pt PA physician, Dr. Rivas, . If call is placed to PA physician for medication request early, the PA pharmacy will work to fill same day or next day. Pharmacy cannot guarantee meds will be filled if they haven't been called in to Pt physician and physician hasn't called into PA pharmacy. SW informed STORE MANAGER via chat. (Pt spouse reports she's given injections/shots to Pt before and reports being able to assist Pt with Lovenox.) Discharge Planning Status In Progress Rhonda See LMSW Tobacco Grader Case Management Department (O)[phone] ([phone] [email or web address] ENT FLOW COORDINATOR * Martin Nickerson MD - 05/31/2024 7:47 AM PATIENT FLOW COORDINATOR ORS Progress Note Subjective: No acute events [...] Dr. Tony Back in 2 weeks. Call [phone] for appt. Please Epic Chat or page [phone] with questions. Please call [phone]) with emergent concerns overnight. Martin Nickerson MD [facility] Orthopedic Surgery PGY-2 ENT FLOW COORDINATOR * Lyric Olivo, PT - 05/30/2024 9:40 AM PATIENT FLOW COORDINATOR Physical Therapy Re-evaluation and Treatment Note Patient Name: Beny Aden Today's Date: 05/30/2024 Preferred Language: Swedish Assessment & Plan Assessment: Prognosis: Excellent Evaluation/Treatment [...] Elevator Prior Level of Function: Level of Maury: Ambulated with assistive device (comment) Receives Help [...] Maintains NWB status without assistance Transfer To/From: Fqt-lu-Fmqdg/Misgz-bw-Kdv Assistive Devices And Adaptive Equipments: Walker, front-wheeled [...] A Lot Mobility Inpatient Raw Score: 19 -[facility] Goal: 6 Mobility: Highest Level of Mobility Performed (-HLM) Walked 25 feet or more (i.e. walked outside of room) Modified [place] Modified [place] (mRS) Modified [place] Score: Moderate disability. Requires some help, but [...] the discharge summary. Lyric Olivo PT, DPT ENT FLOW COORDINATOR ENT FLOW COORDINATOR ENT FLOW COORDINATOR * Betty Parker MD - 05/30/2024 9:00 AM PATIENT FLOW COORDINATOR Neurocritical Care Progress Note Consulted by NSGY [...] x7d for sz ppx; currently on Day PT/OT/COMMUNICATIONS MAINTAINER as indicated Home meds: On primidone 50 [...] ORIF on 05/29 [place] [facility] [place]Floor [facility]A Ph #[phone] (available 15/11), #[phone] (available 6:30a - 4:30p) Neuro ICU White Team Ph #[phone] The patient was seen and examined by me at a separate time from the LETA. I also reviewed the documentation and agree with the documented findings and plan of care. Additionally, I was directly involved in the management of the patient and provided the substantive portion of this visit, including examining the patient, obtaining history, and medical decision-making. ENT FLOW COORDINATOR * Patti Solis LMSW - 05/30/2024 8:58 AM PATIENT FLOW COORDINATOR 05/30/24 0800 Discharge Planning Patient expects to [...] PLAN B: Home Patti Solis LMSW, [facility]NC[facility] Purse Maker - Neuro Service Line ENT FLOW COORDINATOR * Katie Clarke MD - 05/30/2024 8:35 AM PATIENT FLOW COORDINATOR Images from the original note were not [...] Value Ventricular Rate 121 Atrial Rate 121 AL Interval 136 QRS Duration 116 QT/QTc 338 QTc Calculation 479 P-Quincy 29 R-Quincy 238 T-Quincy 20 Impression SINUS TACHYCARDIA ANTEROLATERAL INFARCTION AGE UNDETERMINED ABNORMAL ECG WHEN COMPARED WITH ECG OF 06-OCT-2022 06:52, THE AXIS HAS SHIFTED TOWARD THE RIGHT ANTEROLATERAL INFARCTION IS NOW PRESENT Confirmed by Domi Victoria ([id number]) on 05/24/2024 12:22:57 PM Cosigned by Perla Severino MD at 05/30/2024 12:20 PM PATIENT FLOW COORDINATOR ENT FLOW COORDINATOR ENT FLOW COORDINATOR Associated attestation - Perla Severino MD - 05/30/2024 12:20 PM PATIENT FLOW COORDINATOR I was present with the resident during the history and exam. I discussed the case with the resident and agree with the findings and plan as documented in the resident's note. * Martin Nickerson MD - 05/30/2024 5:33 AM PATIENT FLOW COORDINATOR ORS Progress Note Subjective: No acute events [...] Dr. Tony Back in 2 weeks. Call [phone] for appt. Please Epic Chat or page [phone] with questions. Please call [phone] [phone]) with emergent concerns overnight. Martin Nickerson MD [facility] Orthopedic Surgery PGY-2 ENT FLOW COORDINATOR * Kathy Galarza MD - 05/29/2024 7:33 PM PATIENT FLOW COORDINATOR Orthopedic Trauma Service Postop Check Note Subjective [...] MD, MD Orthopaedic Trauma Fellow Please call [employer] ([phone]) with emergencies or overnight. ENT FLOW COORDINATOR * Vladimir Downs OT - 05/29/2024 4:08 PM PATIENT FLOW COORDINATOR OT Encounter Note Patient Name: Beny Aden Today's Date: 05/29/2024 Missed Treatment Time and Reason Upon OT attempt, pt in OR for ORIF of R ankle. OT will continue to f/u as medically appropriate. Vladimir Downs OT ENT FLOW COORDINATOR * Patti Solis LMSW - 05/29/2024 3:02 PM PATIENT FLOW COORDINATOR 05/29/24 1500 Discharge Planning Patient expects to [...] Diet Regular Patti Solis LMSW, JYOTHI CRUZ Purse Maker - Neuro Service Line ENT FLOW COORDINATOR * Lyric Olivo PT - 05/29/2024 8:00 AM PATIENT FLOW COORDINATOR Physical Therapy Encounter Note Patient Name: Beny Aden Today's Date: 05/29/2024 Missed Treatment Time and Reason Missed Visit Time - 08:00am Missed Visit Reason - Pt in OR for R ankle ORIF. PT will follow up on POD 1 for functional re-assessment. Lyric Olivo PT, DPT ENT FLOW COORDINATOR * Betty Parker MD - 05/29/2024 7:32 AM PATIENT FLOW COORDINATOR Neurocritical Care Progress Note Consulted by NSGY [...] x7d for sz ppx; currently on Day PT/OT/COMMUNICATIONS MAINTAINER as indicated Home meds: On primidone 50 [...] ORIF on 05/29 [place] [facility]Floor [facility] Ph #[phone] (available 15/11), #[phone] (available 6:30a - 4:30p) Neuro ICU White Team Ph #[phone] The patient was seen and examined by me at a separate time from the LETA. I also reviewed the documentation and agree with the documented findings and plan of care. Additionally, I was directly involved in the management of the patient and provided the substantive portion of this visit, including examining the patient, obtaining history, and medical decision-making. ENT FLOW COORDINATOR * Patti Solis LMSW - 05/28/2024 4:32 PM PATIENT FLOW COORDINATOR 05/28/24 1600 Discharge Planning Patient expects to [...] DISCHARGE PLAN B: IPR Patti Solis LMSW, [facility] Purse Maker - Neuro Service Line ENT FLOW COORDINATOR * Emi Jeffery PTA - 05/28/2024 12:40 PM PATIENT FLOW COORDINATOR Encounter Note Patient Name: Beny Aden Today's Date: 05/28/2024 Missed Treatment Time and Reason Attempted tx in the PM, pt politely declined d/t fatigue. Pt is not currently on cEEG and scheduled for OR tomorrow 05/29 for R ORIF. Will hold tx and supervising PT will follow up for re-eval when appropriate. Emi Jeffery PTA ENT FLOW COORDINATOR * BELINDA Mckeon - 05/28/2024 11:09 AM PATIENT FLOW COORDINATOR Images from the original note were not included. Ortho Trauma History & Physical [facility] 05/28/2024 Beny Aden [id number] Ortho Attending: Robson Mir MD Ortho Trauma [...] ANGIOGRAM NECK 10/06/2022 CT ANGIOGRAM NECK 10/06/20[place] [facility] [facility] 7 ORTHO TRAUMA RIB FRACTURE SURGERY [...] mg 500 mg Per G Tube q12h Elas Field MD 500 mg at 05/28/24 06 [...] after surgery. PT/OT evaluate and treat. BELINDA [facility] Physician Apprentice Lineman Third Step for Robson Mir MD 05/28/2024 ENT FLOW COORDINATOR * Raina Amos - 05/26/2024 3:16 PM PATIENT FLOW COORDINATOR Spiritual Care Subjective [employer] Pastoral Care Volunteer, Hugo Verdugo, visited the patient on 2024 at 3:16 pm with his at bedside and provided spiritual support and prayer. [employer] available 15/11 in-house. Call [employer] [phone] or page [phone]. ENT FLOW COORDINATOR * Patti Solis LMSW - 05/25/2024 3:25 PM PATIENT FLOW COORDINATOR 05/25/24 1524 Discharge Planning Patient expects to [...] w/OP - pt will need to contact PA for services DISCHARGE PLAN B: Home Patti Solis LMSW, [facility] Purse Maker - Neuro Service Line ENT FLOW COORDINATOR * Vladimir Downs OT - 05/25/2024 3:13 PM PATIENT FLOW COORDINATOR Images from the original note were not included. Treatment Session Note Patient Name: Beny Aden Today's Date: 05/25/2024 Preferred Language: Swedish Assessment & Plan Pt limited by pain [...] assistance Trials/Comments 1: steady assistance Transfer To/From: Hjv-lv-Dbvby/Ocjbo-lo-Nep Assistive Devices And Adaptive Equipments: Walker, front-wheeled [...] as the discharge summary. Vladimir Downs OT ENT FLOW COORDINATOR * Sarah Peguero PT - 05/25/2024 2:30 PM PATIENT FLOW COORDINATOR Treatment Session Note Patient Name: Beny Aden Today's Date: 05/25/2024 Preferred Language: Swedish Assessment & Plan Assessment: PT Assessment: Pt [...] or more (i.e. walked to restroom) Modified [place] Patient Education: Education Documentation No documentation found. [...] as the discharge summary. Sarah Peguero PT ENT FLOW COORDINATOR * Kevin Villegas MD - 05/25/2024 11:19 AM PATIENT FLOW COORDINATOR ORS Trauma Progress Note S: Patient resting comfortably in bed. Orthopedics contacted because patient has changed his mind and no longer wants to follow-up at the PA for his ankle surgery. O: Vitals: 05/25/24 [...] outpatient ORIF right ankle Dispo: Okay to PR home from ORS perspective. Plan to follow-up for outpatient ORIF right ankle . Please follow up with Dr. Robson Mir. Call [phone] for appt. Please [employer] with questions. Please call [facility] ([phone]) with emergencies or overnight. Kevin Villegas MD [facility] Orthopedic Surgery PGY-2 ENT FLOW COORDINATOR ENT FLOW COORDINATOR * Patti Solis LMSW - 05/24/2024 2:37 PM PATIENT FLOW COORDINATOR 05/24/24 1759 Discharge Planning Patient expects to be discharged [...] Home w/ HH Patti Solis LMSW, JYOTHI Purse Maker - Neuro Service Line ENT FLOW COORDINATOR ENT FLOW COORDINATOR * Vladimir Downs OT - 05/24/2024 12:10 PM PATIENT FLOW COORDINATOR Images from the original note were not included. Evaluation and Treatment Patient Name: Beny Aden Today's Date: 05/24/2024 Preferred Language: Swedish Assessment & Plan Pt is a 58 [...] bars in shower Prior Function: Level of Maury: Ambulated with assistive device (comment) Receives Help [...] assistance Trials/Comments 1: NWB RLE Transfer To/From: Ioh-mc-Benyo/Sbkwh-jt-Dtx Assistive Devices And Adaptive Equipments: Walker, front-wheeled [...] as the discharge summary. Vladimir Downs OT ENT FLOW COORDINATOR * Lyric Olivo, PT - 05/24/2024 9:15 AM PATIENT FLOW COORDINATOR Physical Therapy Evaluation and Treatment Note Patient Name: Beny Aden Today's Date: 05/24/2024 Preferred Language: Swedish Assessment & Plan Assessment: Prognosis: Excellent Evaluation/Treatment [...] entry Prior Level of Function: Level of Maury: Ambulated with assistive device (comment) Receives Help [...] Trials/Comments 1: NWB at RLE Transfer To/From: Abx-lg-Nzkry/Fiedb-nv-Xvw Assistive Devices And Adaptive Equipments: Walker, front-wheeled [...] or more (i.e. walked to restroom) Modified [place] Modified [place] (mRS) Modified [place] Score: Moderate disability. Requires some help, but [...] the discharge summary. Lyric Olivo PT, DPT ENT FLOW COORDINATOR ENT FLOW COORDINATOR * Nikita Contreras MD - 05/24/2024 4:52 AM PATIENT FLOW COORDINATOR NEUROSURGERY PROGRESS NOTE: Date: 05/24/24 Patients Name: [...] patient may follow up in neurotrauma clinic ([phone]). Please call [phone] with questions. Nikita Contreras [facility] Neurosurgery ENT FLOW COORDINATOR * Hunter Tolbert RN - 05/23/2024 4:20 PM PATIENT FLOW COORDINATOR Pt arrived from the ED to [address] [place] [address] [facility] Tfqdaum1598-47-52 16:26:44Pending Results Scheduled Orders Name Type Priority [...] on patient's age to complete this topic [facility] 16:26:44 [facility]6473-62-11 16:26:44 Diagnosis Subarachnoid hemorrhage (CMS/HCC) (HCC) - Primary Subarachnoid hemorrhage Closed fracture of right ank le, initial encounter Subarachnoid hemorrhage (CMS/HCC) (HCC) Subarachnoid hemorrhage Closed fracture of right ank le, initial encounter Alcoholic cirrhosis (CMS/HCC) (HCC) Alcoholic cirrhosis of liver Hyponatremia Hyposmolality and/or hyponatremia Thrombocytopenia (HCC) Unspecified thrombocytopenia [facility] Center[facility]yuwmoq1389-17-35 16:26:44 [facility] CenterLqpkcfz5018-43-70 15:22:08 Images from the original note were not included. [id number] Enoxaparin Injection Brand Name(s): Lovenox?; also available [...] be awakened, immediately call emergency services at 111. What OTHER INFORMATION should I know? Keep [...] of all of the prescription and nonprescription (enkq-kqa-fjdmjgf) medicines you are taking, as well as [...] or pharmacist about specific clinical use. The [employer] represents that the information provided hereunder was formulated with a reasonable standard of care, and in conformity with professional standards in the field. The [employer] makes no representations or warranties, express or implied, including, but not limited to, any implied warranty of merchantability and/or fitness for a particular purpose, with respect to such information and specifically disclaims all such warranties. Users are advised that decisions regarding drug therapy are complex medical decisions requiring the independent, informed decision of an appropriate health wound care technician, and the information is provided for informational purposes only. The entire monograph for a drug should be reviewed for a thorough understanding of the drug's actions, uses and side effects. The [employer] does not endorse or recommend the use of any drug. The information is not a substitute for medical care. AHFS? Patient Medication Information?. ? Copyright, 2023. The [employer]?, [address], [address], [place], [place]. All Rights Reserved. Duplication for commercial use must be authorized by [facility]. Selected Revisions: November 12, 2023. AHFS? Patient Medication Information?. ? Copyright, 2024 [facility]2025-02-06 15:22:07 Images from the original note were not included. Lovenox - Video Understand that Lovenox is an injectable medication that works to break up clots resulting from DVT and keeps the blood thin. Also, learn how to properly use and store this medication, and possible side effects to be aware of. To view the video go to this web address: [email or web address] Or, scan this QR code with your smart phone ? [employer] [facility] Bwjccry5735-12-79 15:21:57 Images from the original note were not included. Tylenol with Codeine - Video Learn how Tylenol with Codeine works in the brain to change how your body feels and responds to pain, possible side effects to be aware of, and how to properly use and store this medication. To view the video go to this web address: [email or web address] Or, scan this QR code with your smart phone ? [employer] [facility] Dlxijvm5672-10-63 15:21:46 Images from the original note were not included. [id number] Acetaminophen Brand Name(s): Actamin?, Feverall?, Panadol?, Tempra Quicklets?, Tylenol?, Dayquil? (as a combination product containing Acetaminophen, Dextromethorphan, Pseudoephedrine), NyQuil Cold/Flu Relief? (as a combination product containing Acetaminophen, Dextromethorphan, Doxylamine), Percocet? (as a combination product containing Acetaminophen, Oxycodone) APAP, U-egyvdx-sifj-aminophenol, Paracetamol IMPORTANT WARNING: Taking too much acetaminophen [...] measuring cup or syringe provided by the hereditary cancer program coordinator to measure each dose of the solution [...] of all of the prescription and nonprescription (dlde-vtr-sgutjdy) medicines you are taking, as well as [...] or pharmacist about specific clinical use. The [employer] represents that the information provided hereunder was formulated with a reasonable standard of care, and in conformity with professional standards in the field. The [employer] makes no representations or warranties, express or implied, including, but not limited to, any implied warranty of merchantability and/or fitness for a particular purpose, with respect to such information and specifically disclaims all such warranties. Users are advised that decisions regarding drug therapy are complex medical decisions requiring the independent, informed decision of an appropriate health wound care technician, and the information is provided for informational purposes only. The entire monograph for a drug should be reviewed for a thorough understanding of the drug's actions, uses and side effects. The [employer] does not endorse or recommend the use of any drug. The information is not a substitute for medical care. AHFS? Patient Medication Information?. ? Copyright, 2023. The [employer]?, [address], [address], [place], [place]. All Rights Reserved. Duplication for commercial use must be authorized by [facility]. Selected Revisions: January 07, 2023. AHFS? Patient Medication Information?. ? Copyright, 2024 [facility] [id number] 15:21:37 Images from the original note were not included. 42959 Having Ankle Fracture Open Reduction and Internal [...] medicines you take. This includes prescription and jyvh-hkh-nmyownk medicines, such as aspirin. It also includes [...] help reduce the pain. Don't take certain svzq-rpm-mtnbjsz medicines for pain, as instructed. Some of [...] leg Last Reviewed Date: 2023 00:00:00 ? 3319-0970 [employer]. All rights reserved. This information is not intended as a substitute for professional medical care. Always follow your healthcare professional's instructions. [facility]2025-02-06 15:21:30 Images from the original note were not included. 75906 Treating Ankle Fractures Casting the fracture To [...] dry. Last Reviewed Date: 2022 00:00:00 ? 8911-7752 [employer]. All rights reserved. This information is not intended as a substitute for professional medical care. Always follow your healthcare professional's instructions. [facility]2025-02-06 15:21:25 Images from the original note were not included. 09888 Understanding Cirrhosis Cirrhosis is a lifelong (chronic) [...] you Last Reviewed Date: 2023 00:00:00 ? 9268-6553 [employer]. All rights reserved. This information is not intended as a substitute for professional medical care. Always follow your healthcare professional's instructions. [facility]2025-02-06 15:21:16 Images from the original note were not included. 28363 Symptoms of a Stroke During a stroke, [...] appeared. Last Reviewed Date: 2024 00:00:00 ? 3262-6169 [employer]. All rights reserved. This information is not intended as a substitute for professional medical care. Always follow your healthcare professional's instructions. [place] [facility] Wmleeva8726-51-25 15:21:11 Images from the original note were not included. 66920 Case-Jordan Grades of Subarachnoid Hemorrhage Your loved [...] scale. Last Reviewed Date: 2023 00:00:00 ? 8201-8184 [employer]. All rights reserved. This information is not intended as a substitute for professional medical care. Always follow your healthcare professional's instructions. [place] [facility]2025-02-06 15:21:09 Images from the original note were not included. 70884 Hemorrhagic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
[2024-09-06] MEDS ORDERED: NA CHLORIDE 0.9% 1,000 ML ONE (23:49)
[2024-09-07 00:05] LABS: Absolute Basophils 0.1 K/uL (0-0.5); Absolute Eosinophils 0.4 K/uL (0-0.5); Absolute Lymphocytes (CBC) 2.5 K/uL (0.7-4.9); Absolute Monocytes 0.4 K/uL (0.1-1.3); Absolute Neutrophil 2.7 K/uL (1.8-8.0); Basophils % 1.3 % (0-1.3); Eosinophils % 6.6 % (0-4.4); Hematocrit 40.5 % (39.6-49.0); Lymphocytes % 41.3 % (15.3-44.8); MCH 31.8 pg (27.0-35.0); MCHC 34.5 g/dL (32.0-36.0); MCV 92.2 fL (80-100); MPV 7.4 fL (7.6-11.3); Monocytes % 6.9 % (3.3-12.3); Neutrophils % 43.9 % (41.7-73.7); Nucleated Red Blood Cells % 0.1 % (0-0); Platelets 103 thou/uL (152-406); Red Cell Distribution Width 14.9 % (12.1-15.2)
[2024-09-07 00:15] LABS: Albumin 3.7 g/dL (3.4-5.0); Albumin/Globulin Ratio 0.8 (1.1-1.8); Anion Gap 9.1 mEq/L (5.0-15.0); Bilirubin Direct 0.4 mg/dL (0-0.2); Bilirubin Indirect, Calculated 0.4 mg/dL (0.2-0.8); Bilirubin Total 0.8 mg/dL (0.2-1.0); Globulin 4.6 g/dL (2.3-3.5); Potassium 3.1 mEq/L (3.5-5.1); Protein, Total 8.3 g/dL (6.4-8.2)
[2024-09-07 00:48] LABS: Barbiturates NEGATIVE (NEGATIVE); Benzodiazepines NEGATIVE (NEGATIVE); Cocaine NEGATIVE (NEGATIVE); METHAMPHETAM NEGATIVE (NEGATIVE); Methadone NEGATIVE (NEGATIVE); Opiates NEGATIVE (NEGATIVE); Phencyclidine NEGATIVE (NEGATIVE); THC Cannibis NEGATIVE (NEGATIVE)
--- NOTE | 2024-09-07 03:22 | ER ---
Nurse's Notes [facility] Name: Beny Alvarez Age: 59 yrs Sex: Male : 1965 Arrival Date: 09/06/2024 Time: 22:59 Bed 17 Private MD: Diagnosis: Alcohol dependence with intoxication;Syncope Near Presentation: 09/06 23:19 Chief complaint: EMS states: Pt has been passing out repeatedly and falling since he jb4 fell a few months ago. Tonight he has passed out several times and when he wakes he is confused. Pt reports taking 4 shots of whiskey tonight. Coronavirus screen: At this time, the client does not indicate any symptoms associated with coronavirus-19. Ebola Screen: No symptoms or risks identified at this time. Initial Sepsis Screen: Does the patient meet any 2 criteria? No. Patient's initial sepsis screen is negative. Does the patient have a suspected source of infection? No. Patient's initial sepsis screen is negative. Risk Assessment: Do you want to hurt yourself or someone else? Patient reports no desire to harm self or others. Onset of symptoms was September 06, 2024. Transition of care: patient was not received from another setting of care. 23:19 Method Of Arrival: EMS: [facility] jb4 23:19 Acuity: KALEY 2 jb4 Historical: - Allergies: 23:22 NSAIDS; jb4 - PMHx: 23:22 Hypertensive disorder; acid reflux; CHF; PTSD (Cholecystectomy); cirrhosis of liver; jb4 tremors; right eye double vision; heart disease; kidney disease; heart issues (Cholecystectomy); right eye issues (Cholecystectomy); - PSHx: 23:22 Appendectomy; Cholecystectomy; jb4 - Immunization history:: Adult Immunizations up to date. - Infectious Disease History:: Denies. - Social history:: Smoking status: Patient denies any tobacco usage or history of. Screenin:25 [facility] ED Fall Risk Assessment (Adult) History of falling in the last 3 months, jb4 including since admission Yes- fall prone (multiple falls) (3 pts) Confusion or Disorientation No (0 pts) Intoxicated or Sedated Yes (3 pts) Impaired Gait Yes (1 pt) Mobility Assist Device Used No (0 pt) Altered Elimination No (0 pt) Score/Fall Risk Level 3 or more points = High Risk Oriented to surroundings, Maintained a safe environment. Abuse screen: Denies threats or abuse. Nutritional screening: No deficits noted. Tuberculosis screening: No symptoms or risk factors identified. Assessment: 23:25 General: Appears in no apparent distress. comfortable, Behavior is calm, cooperative, jb4 appropriate for age. Pain: Denies pain. Neuro: Level of Consciousness is awake, alert, obeys commands, Oriented to person, place, time, situation, Pt noted to have multiple syncopal episodes in the bed. When wakened pt becomes startled.. Cardiovascular: Patient's skin is warm and dry. Respiratory: Airway is patent Respiratory effort is even, unlabored, Respiratory pattern is regular, symmetrical. Derm: Skin is intact, Skin is pink, warm \T\ dry. Musculoskeletal: Circulation, motion, and sensation intact. Range of motion: intact in all extremities. 09/07 00:15 Reassessment: No changes from previously documented assessment. Patient and/or family rg5 updated on plan of care and expected duration. Pain level reassessed. Patient is alert, oriented x 3, equal unlabored respirations, skin warm/dry/pink. General: Appears in no apparent distress. comfortable. 01:30 Reassessment: Patient and/or family updated on plan of care and expected duration. Pain rg5 level reassessed. Patient is alert, oriented x 3, equal unlabored respirations, skin warm/dry/pink. General: Appears in no apparent distress. comfortable. 02:28 Reassessment: Patient and/or family updated on plan of care and expected duration. Pain rg5 level reassessed. Patient is alert, oriented x 3, equal unlabored respirations, skin warm/dry/pink. General: Appears in no apparent distress. Vital Signs: 09/06 23:19 BP 136 / 95; Pulse 83; Resp 15 S; Temp 98.7(O); Pulse Ox 95% ; jb4 16 00:20 BP 146 / 90; Pulse 83; Resp 18; Pulse Ox 100% on R/A; rg5 01:30 BP 143 / 91; Pulse 93; Resp 18; Pulse Ox 99% ; rg5 02:25 BP 135 / 87; Pulse 78; Resp 17; Pulse Ox 98% ; rg5 ED Course: 09/06 23:05 Patient arrived in ED. kmf 23:19 Tres Au, RN is Primary Nurse. jb4 23:22 Triage completed. jb4 23:22 Arm band placed on right wrist. jb4 23:25 Patient has correct armband on for positive identification. Bed in low position. Call jb4 light in reach. Side rails up X 1. Provided Education on: plan of care. 23:28 Laura Guy MD is Attending Physician. gb1 23:50 Basic Metabolic Panel Sent. jb4 23:50 CBC with Diff Sent. jb4 23:50 ETOH Level Sent. jb4 23:50 Hepatic Function Sent. jb4 09/07 00:10 Report given to KAYLA Mark. jb4 00:15 No provider procedures requiring assistance completed. rg5 04:00 IV discontinued, bleeding controlled, No redness/swelling at site. Pressure dressing rg5 applied. Administered Medications: 09/06 23:57 Drug: NS 0.9% IV 1000 ml IV at 1000 ml once; to be given as a bolus over 60 minutes jb4 Route: IV; Rate: 1000 ml; Site: right antecubital; 09/07 02:24 Follow up: IV Status: Completed infusion; IV Intake: 1000ml rg5 Medication: 09/06 23:25 VIS not applicable for this client. jb4 Intake: 09/07 02:24 IV: 1000ml; Total: 1000ml. rg5 Outcome: 03:22 Discharge ordered by . gb1 03:59 Discharged to home via wheelchair, rg5 03:59 Condition: stable 03:59 Discharge instructions given to patient, 04:00 Patient left the ED. rg5 Signatures: Tres Au RN RN jb4 Laura Guy MD MD 1 [address] [facility] Jas Boland RN RN rg5
--- NOTE | 2024-09-07 03:22 | EDPHYS ---
Physician Documentation [facility] Name: Beny Alvarez Age: 59 yrs Sex: Male : 1965 Arrival Date: 09/06/2024 Time: 22:59 Bed 17 Private MD: ED Physician Laura Guy HPI: 09/07 00:47 This 59 yrs old Male presents to ER via EMS with complaints of Syncope. gb1 00:47 59-year-old male with history of hypertension, GERD, CHF, PTSD, cirrhosis of gb1 the liver is here for near syncope episode. Patient's reports that she was getting him ready for bed and he was going in and out of their conversation. Patient denies any weakness of any side upper or lower extremity. Patient denies any nausea vomiting any fever or chills. Patient does result self-report as an alcoholic and states that he drinks 6-7 shots in the morning and by the evening he also drinks heavy alcohol. [facility] and [facility] as well. He denies any chest pain or shortness of breath.. 00:47 Patient's states that he drinks alcohol so heavily due to not being able to be gb1 prescribed any pain medicines by the [place]. Patient is requested fentanyl patch for him.. Historical: - Allergies: 09/06 23:22 NSAIDS; jb4 - PMHx: 23:22 Hypertensive disorder; acid reflux; CHF; PTSD (Cholecystectomy); cirrhosis of liver; jb4 tremors; right eye double vision; heart disease; kidney disease; heart issues (Cholecystectomy); right eye issues (Cholecystectomy); - PSHx: 23:22 Appendectomy; Cholecystectomy; jb4 - Immunization history:: Adult Immunizations up to date. - Infectious Disease History:: Denies. - Social history:: Smoking status: Patient denies any tobacco usage or history of. Exam: 09/07 00:47 Constitutional: This is a well developed, well nourished patient who is awake, alert, gb1 and in no acute distress. Head/Face: Normocephalic, atraumatic. Eyes: Pupils equal round and reactive to light, extra-ocular motions intact. Lids and lashes normal. Conjunctiva and sclera are non-icteric and not injected. Cornea within normal limits. Periorbital areas with no swelling, redness, or edema. ENT: Nares patent. No nasal discharge, no septal abnormalities noted. Tympanic membranes are normal and external auditory canals are clear. Oropharynx with no redness, swelling, or masses, exudates, or evidence of obstruction, uvula midline. Mucous membranes moist. Neck: Trachea midline, no thyromegaly or masses palpated, and no cervical lymphadenopathy. Supple, full range of motion without nuchal rigidity, or vertebral point tenderness. No Meningismus. Chest/axilla: Normal chest wall appearance and motion. Nontender with no deformity. No lesions are appreciated. Cardiovascular: Regular rate and rhythm with a normal S1 and S2. No gallops, murmurs, or rubs. Normal PMI, no JVD. No pulse deficits. Respiratory: Lungs have equal breath sounds bilaterally, clear to auscultation and percussion. No rales, rhonchi or wheezes noted. No increased work of breathing, no retractions or nasal flaring. Abdomen/GI: Soft, non-tender, with normal bowel sounds. No distension or tympany. No guarding or rebound. No evidence of tenderness throughout. Skin: Warm, dry with normal turgor. Normal color with no rashes, no lesions, and no evidence of cellulitis. MS/ Extremity: Pulses equal, no cyanosis. Neurovascular intact. Full, normal range of motion. Neuro: Awake and alert, GCS 15, oriented to person, place, time, and situation. Cranial nerves II-XII grossly intact. Motor strength 5/5 in all extremities. Sensory grossly intact. Cerebellar exam normal. Normal gait. Vital Signs: 09/06 23:19 BP 136 / 95; Pulse 83; Resp 15 S; Temp 98.7(O); Pulse Ox 95% ; jb4 09/07 00:20 BP 146 / 90; Pulse 83; Resp 18; Pulse Ox 100% on R/A; rg5 01:30 BP 143 / 91; Pulse 93; Resp 18; Pulse Ox 99% ; rg5 02:25 BP 135 / 87; Pulse 78; Resp 17; Pulse Ox 98% ; rg5 MDM: 09/06 23:29 Medical Screening Exam initiated gb1 09/07 00:47 ED course: 59-year-old male with history of hypertension, GERD, CHF and PTSD as well as gb1 end-stage liver disease secondary to alcoholic cirrhosis. Patient is here with a near syncopal episode however I do think it is likely secondary to alcohol intoxication. Patient's blood alcohol level is greater than 200. He has an alcoholic self-reported. At this time I doubt any congestive heart failure this decompensated or any signs of acute pulmonary edema. I doubt NSTEMI or any type of hypertensive emergency. Patient's labs are at baseline. I will not prescribe any narcotic as requested patient's is requesting a fentanyl patch for him, at this time his knee is intoxicated I will not prescribe any narcotics for discharge home.. 03:22 ED course: 59-year-old male with alcohol dependence and intoxication is here with a gb1 near syncopal episode. Otherwise his labs are within normal limits and at their baseline. I will discuss the plan of care with the patient's family at discharge. At this time they are requesting narcotics and I will not prescribe narcotics as he is acutely intoxicated.. 09/06 23:31 Order name: Basic Metabolic Panel; Complete Time: 00:42 gb1 09/06 23:31 Order name: CBC with Diff; Complete Time: 00:42 gb1 09/06 23:31 Order name: ETOH Level; Complete Time: 00:42 gb1 09/06 23:31 Order name: Hepatic Function; Complete Time: 00:42 gb09/06 23:31 Order name: Urine Drug Screen; Complete Time: 00:51 09/06 23:31 Order name: EKG; Complete Time: 23:31 gb1 09/06 23:31 Order name: EKG - Nurse/Tech; Complete Time: 23:39 gb09/06 23:31 Order name: IV Saline Lock; Complete Time: 23:49 gb1 09/06 23:31 Order name: Labs collected and sent; Complete Time: 23:49 gb Administered Medications: 09/06 23:57 Drug: NS 0.9% IV 1000 ml IV at 1000 ml once; to be given as a bolus over 60 minutes jb4 Route: IV; Rate: 1000 ml; Site: right antecubital; 09/07 02:24 Follow up: IV Status: Completed infusion; IV Intake: 1000ml rg5 Disposition Summary: 09/07/24 03:22 Discharge Ordered Notes: Location: Home gb1 Problem: chronic gb1 Symptoms: have improved gb1 Condition: Stable gb1 Diagnosis - Alcohol dependence with intoxication gb1 - Syncope Near gb1 Followup: gb1 - With: Private Physician - When: - Reason: Recheck today's complaints, Re-evaluation by your physician Discharge Instructions: - Discharge Summary Sheet gb1 - Near-Syncope gb1 Forms: - Medication Reconciliation Form gb1 - Antibiotic Education gb1 - Prescription Opioid Use gb1 - Patient Portal Instructions gb1 - Leadership Thank You Letter gb1 Signatures: Dispatcher [employer] Tres Castro, RN RN jb4 Laura Guy MD MD gb1 Jas Boland RN rg5 Corrections: (The following items were deleted from the chart) 09/06 23:39 23:31 Suicide Screening ([place]) ordered. gb1 jb4
[2024-09-07 04:04] VITALS: TEMP 98.7
[2024-09-07 04:08] VITALS: BP 135/87; O2SAT 98
--- NOTE | 2024-09-10 16:52 | EKG ---
Test Date: 2024-09-06 Test Time: 23:06:13 Healthcare Social Worker: BETO MEASUREMENT RESULTS: Intervals: Rate: 84 MA: 188 QRSD: 122 QT: 430 QTc: 508 [place]: P: 42 MA: 188 QRS: -69 T: 16 INTERPRETIVE STATEMENTS: Normal sinus rhythm Left anterior fascicular block Nonspecific T wave abnormality Abnormal ECG Compared to ECG 08/09/2024 23:13:25 Left anterior fascicular block now present Left-axis deviation no longer present Possible ischemia no longer present T-wave abnormality still present Electronically Signed On 09-10-24 16:48:58 CDT by Martinez Thomas
== END 2024-09-07 04:00 | disposition home or self-care (01) ==
LOC: ER 22:59
DX: F10.229 Alcohol dependence with intoxication, unspecified (principal); R55 Syncope and collapse; I10 Essential (primary) hypertension; I50.9 Heart failure, unspecified
CPT/HCPCS: 96361; 93005; 85025; 80048; 36415; 80076; 80307; 96360; 99284; 82077; J7030